=== PATIENT | male | born 1980 | race Caucasian/White ===

== ENCOUNTER → 2018-01-12 14:06 | Outpatient (REF) | payer MEDICARE, MEDICAID, SELFPAY ==
[2018-01-12 14:17] LABS: Absolute Lymphocyte Count 1.57 X10^3/ul (0.83-4.51); Absolute Neutrophil Count 3.9 X10^3/uL (2.0-7.7); Basophil# 0.01 X10^3/uL; Basophil% 0.2 % (0-1); Eosinophil# 0.12 X10^3/uL; Hematocrit 40.2 % (40-54); Hemoglobin 13.6 g/dl (13.0-16.5); Lymphocyte # 1.57 X10^3/ul (4.0); Lymphocyte % 25.8 % (19-41); Mean Corp Hgb Conc 33.8 g/gl (32-36); Mean Corpuscular Hgb 29.6 pg (27.0-32.0); Mean Corpuscular Volume 87.6 fL (80-94); Monocyte# 0.44 X10^3/uL; Monocyte% 7.2 % (0-10); Neutrophil # 3.93 X10^3/uL (2.7-7.7); Neutrophil % 64.5 % (47-70); Platelet Count 209 K/mm3 (150-450); RBC Distribution Width CV 12.9 % (11.6-14.6); RBC Distribution Width SD 40.2 fl (35.1-43.9); Red Blood Count 4.59 M/mm3 (4.6-6.2); White Blood Count 6.1 K/mm3 (4.4-11.0)
[2018-01-12 14:26] LABS: Erythrocyte Sedimentation Rate 11 mm/hr (0-15)
[2018-01-12 14:28] LABS: POSITIVE COUNT NO; POSITIVE DIFFERENTIAL NO; POSITIVE MORPHOLOGY NO
[2018-01-12 16:36] LABS: ALB/GLOB Ratio 0.9 RATIO (0.9-2.4); AST(SGOT) 25 U/L (15-37); Alanine Aminotransfer ALT/SGPT 42 U/L (16-61); Albumin, Serum 3.4 g/dL (3.2-5.0); Alkaline Phosphatase 84 U/L (45-117); Anion Gap 4 (5-15); BUN 17 mg/dL (7-18); BUN/Creat Ratio 20.7 RATIO (10-20); Calcium,Total 8.7 mg/dL (8.5-10.1); Chloride 106 mmol/L (98-107); Creatinine, Serum 0.82 mg/dL (0.70-1.30); EST Glomerular Filtration Rate 111 mL/min (>60); Est Glom Filt Rate - Afr Amer 135 mL/min (>60); Globulin 3.6 g/dL (2.2-4.2); Glucose 113 mg/dL (74-106); Potassium 4.2 mmol/L (3.5-5.1); Sodium Level 139 mmol/L (136-145)
== END ==
LOC: LABSPEC 14:06
PROVIDERS: Visit Provider Internal Medicine Infectious Disease
DX: M86.9 Osteomyelitis, unspecified (principal); E11.69 Type 2 diabetes mellitus with other specified complication; M86.261 Subacute osteomyelitis, right tibia and fibula
CPT/HCPCS: 80053; 85025; 85652; 86140

== ENCOUNTER → 2018-06-10 10:07 | Outpatient (CLI) | payer MEDICARE, MEDICAID, SELFPAY ==
--- NOTE | 2018-06-10 13:03 | NEURO ---
NCS and/or EMG Patient Report Ordering Doctor: Selvin Silva DATE OF SERVICE: 06/10/18 Carlos Eduardo Ruby is a 37-year-old male presents for electrodiagnostic testing of the right upper limb. He reports numbness and tingling intermittently in the right first and second digit. Electrodiagnostic findings: Right median motor nerve demonstrates normal distal latency, amplitude and conduction velocity. Normal right ulnar motor response. Normal right ulnar and median F-wave. Normal sensory responses in the right upper limb. Needle EMG testing shows no evidence of denervation with normal motor unit action potentials. Electrodiagnostic impression: This is a normal electrodiagnostic study in the right upper limb. There is no electrodiagnostic evidence for peripheral neuropathy or cervical radiculopathy. If there are any further questions, please do not hesitate to contact me.
== END ==
PROVIDERS: Family Provider Family Medicine; PCP Family Medicine; Visit Provider Orthopaedic Surgery
DX: G56.01 Carpal tunnel syndrome, right upper limb (principal)
CPT/HCPCS: 95886; 95909

== ENCOUNTER 2023-04-13 16:26 | Emergency (ER) | payer MEDICARE, MEDICAID, SELFPAY ==
[2023-04-13 16:26] VITALS: BP 181/115; PULSE 101; RESP 18; TEMP 36.6; O2SAT 96; BMI 42.3
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
[2023-04-13 17:45] LABS: Absolute Lymphocyte Count 3.68 X10^3/uL (0.83-4.51); Absolute Neutrophil Count 5.7 X10^3/uL (2.0-7.7); Basophil# 0.05 X10^3/uL; Basophil% 0.5 % (0-1); Eosinophils% 0.9 % (0-5); Hematocrit 48.4 % (40-54); Hemoglobin 15.3 g/dL (13.0-16.5); Lymphocyte # 3.68 X10^3/ul (0.83-4.51); Lymphocyte % 34.7 % (19-41); Mean Corp Hgb Conc 31.6 g/dL (32-36); Mean Corpuscular Hgb 28.8 pg (27.0-32.0); Monocyte# 1.03 X10^3/uL; Monocyte% 9.7 % (0-10); NRBC Flagged by Analyzer 0 % (0-5); Neutrophil # 5.69 X10^3/uL (2.7-7.7); Neutrophil % 53.7 % (47-70); Platelet Count 289 K/mm3 (150-450); RBC Distribution Width CV 13.2 % (11.6-14.6); RBC Distribution Width SD 43.9 fl (35.1-43.9); Red Blood Count 5.32 M/mm3 (4.6-6.2); White Blood Count 10.6 K/mm3 (4.4-11.0)
[2023-04-13] MEDS: LORazepam 2 MG/ML Syringe IM ×2 (17:47→22:51)
--- NOTE | 2023-04-13 17:53 | ED.RN ---
PT UP AND ATTEMPTING TO WALK AROUND THE HALLS. INCREASED AGITATION. PT ALSO ATTEMPTING TO LOG ONTO STAFF COMPUTER. NADIYA CAMARA MADE AWARE AND NEW ORDER FOR ATIVAN OBTAINED.
[2023-04-13 18:05] LABS: Anion Gap 6 (5-15); BUN 27 mg/dL (7-18); BUN/Creat Ratio 22.9 RATIO (10-20); Chloride 101 mmol/L (98-107); Creatinine, Serum 1.18 mg/dL (0.70-1.30); EST Glomerular Filtration Rate 72 mL/min (>60); Est Glom Filt Rate - Afr Amer 87 mL/min (>60); Estimated Creatinine Clearance 78.09 ml/min; Glucose 203 mg/dL (74-106); Potassium 3.8 mmol/L (3.5-5.1); Sodium Level 138 mmol/L (136-145)
[2023-04-13 18:13] LABS: Alcohol, Blood (Medical)-Serum < 3.0 mg/dL
[2023-04-13 18:33] LABS: Amphetamine Urine VISTA NEGATIVE (<1000 ng/mL); Barbiturate Urine VISTA NEGATIVE (< 200 ng/mL); Benzodiazepine Urine VISTA NEGATIVE (< 200 ng/mL); Cocaine Urine VISTA NEGATIVE (< 300 ng/mL); Ecstacy Urine VISTA NEGATIVE (< 500 ng/mL); Methadone Urine VISTA NEGATIVE (< 300 ng/mL); PCP Urine VISTA NEGATIVE (< 25 ng/mL); THC Urine VISTA NEGATIVE (< 50 ng/mL); Vista UDS pH Range 5
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
[2023-04-13] MEDS: Ziprasidone IM 20 MG/ML VIAL IM (19:11)
[2023-04-13 19:26] VITALS: RESP 18
[2023-04-13 20:26] VITALS: RESP 16
[2023-04-13 21:26] VITALS: BP 152/90; PULSE 80; RESP 20; O2SAT 98
[2023-04-13 22:00] VITALS: RESP 16
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
[2023-04-13] MEDS: DiphenhydrAMINE 50 MG/ML Syringe IM (22:51)
[2023-04-13] MEDS: proMETHazine 25 MG/ML Syringe IM (22:51)
[2023-04-13 23:00] VITALS: RESP 16
--- NOTE | 2023-04-13 23:02 | ED.RN ---
Pt restrained to bed, screaming and rocking back and fourth. Pt was also found to be biting his arm that was restrained above his head. Will continue to monitor.
[2023-04-14] VITALS: RESP 16
[2023-04-14 01:02] VITALS: BP 176/110; PULSE 89; RESP 18; TEMP 36.4; O2SAT 97
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
[2023-04-14 02:00] VITALS: BP 178/89; PULSE 99; RESP 16; TEMP 36.8; O2SAT 97
== END 2023-04-14 02:00 ==
PROVIDERS: Physician Assistant; Emergency Provider Emergency Medicine; PCP Family Medicine; Visit Provider Emergency Medicine
DX: F20.0 Paranoid schizophrenia (principal); F17.210 Nicotine dependence, cigarettes, uncomplicated
CPT/HCPCS: 80048; 80307; 82077; 85025; 87428; 93005; 96372; 99283

== ENCOUNTER 2023-07-21 14:36 | Emergency (ER) | payer MEDICARE, MEDICAID, SELFPAY ==
[2023-07-21 14:38] VITALS: BP 129/112; PULSE 105; RESP 18; TEMP 36.4; O2SAT 98; BMI 42.0
[2023-07-21 15:54] LABS: Absolute Lymphocyte Count 2.59 X10^3/uL (0.83-4.51); Absolute Neutrophil Count 7.6 X10^3/uL (2.0-7.7); Basophil# 0.05 X10^3/uL; Basophil% 0.4 % (0-1); Eosinophil# 0.16 X10^3/uL; Eosinophils% 1.4 % (0-5); Hematocrit 41.6 % (40-54); Hemoglobin 13.7 g/dL (13.0-16.5); Lymphocyte # 2.59 X10^3/ul (0.83-4.51); Mean Corp Hgb Conc 32.9 g/dL (32-36); Mean Corpuscular Hgb 28.8 pg (27.0-32.0); Mean Corpuscular Volume 87.6 fL (80-94); Mean Platelet Vol. 9.9 fl (6.2-12.0); Monocyte# 0.84 X10^3/uL; Monocyte% 7.5 % (0-10); NRBC Flagged by Analyzer 0 % (0-5); Neutrophil # 7.56 X10^3/uL (2.7-7.7); Neutrophil % 67.3 % (47-70); Platelet Count 294 K/mm3 (150-450); RBC Distribution Width CV 14.5 % (11.6-14.6); Red Blood Count 4.75 M/mm3 (4.6-6.2); White Blood Count 11.2 K/mm3 (4.4-11.0)
--- NOTE | 2023-07-21 16:10 | EX.ED.VIS.PS ---
HPI HPI - Psych History of Present Illness Chief Complaint: Mental Health Informant: patient Onset/Context/Timing Onset: Today Timing: Continuous Associated Symptoms Associated Symptoms - Psych: Positive for Flight of Ideas, Increased activity and Pressured Speech; Negative for Suicidal Thoughts, Visual Hallucinations or Auditory Hallucinations Narrative Narrative: Patient presents because they think I am ill. Patient is very poor informant. Patient states that he does not think he is ill. Patient denies any suicidal or homicidal ideations. Patient denies any visual or auditory hallucinations. However, states I am divinely the inspired by God. Patient denies any fevers or chills. Patient admits to some nausea but denies any vomiting. Patient admits to some pain in his neck. Patient denies any fevers or chills. PFSH PFSH Medical History unable to obtain Home Medications albuterol sulfate 90 mcg/actuation aerosol inhaler (Ventolin HFA) 1 - 2 puff inhalation Q4H PRN PRN Shortness Of Breath ##1 04/06/16 [Rx Last Taken Unknown] acetaminophen 325 mg tablet (Tylenol) 650 mg PO Q4H PRN PRN Pain 03/01/17 [History Last Taken Unknown] aripiprazole 30 mg tablet (Abilify) 30 mg PO BID 03/01/17 [History Last Taken Unknown] divalproex 500 mg tablet,extended release 24 hr 1,000 mg PO BID 03/01/17 [History Last Taken Unknown] pantoprazole 40 mg tablet,delayed release 40 mg PO DAILY 03/01/17 [History Last Taken Unknown] divalproex 500 mg tablet,delayed release (Depakote) 500 mg PO BID 07/21/23 [History Last Taken Unknown] glimepiride 4 mg tablet 4 mg PO DAILY 07/21/23 [History Last Taken Unknown] levothyroxine 50 mcg tablet (Euthyrox) 50 mcg PO DAILY 07/21/23 [History Last Taken Unknown] lorazepam 2 mg tablet (Ativan) 2 mg PO BID 07/21/23 [History Last Taken Unknown] mirtazapine 15 mg tablet 15 mg PO DAILY 07/21/23 [History Last Taken Unknown] simvastatin 40 mg tablet (Zocor) 40 mg PO DAILY 07/21/23 [History Last Taken Unknown] ziprasidone HCl 60 mg capsule (Geodon) 60 mg PO BID 07/21/23 [History Last Taken Unknown] Allergy/AdvReac Type Severity Reaction Status Date / Time haloperidol [From Haldol] Allergy Other Verified 07/21/23 14:37 haloperidol lactate Allergy Other Verified 07/21/23 14:37 [From Haldol] risperidone [From Risperdal] Allergy Other Verified 07/21/23 14:37 acetaminophen AdvReac Diarrhea Verified 07/21/23 14:37 [From Coricidin HBP] aripiprazole [From Abilify] AdvReac Other Verified 07/21/23 14:37 chlorpheniramine AdvReac Diarrhea Verified 07/21/23 14:37 [From Coricidin HBP] dextromethorphan AdvReac Diarrhea Verified 07/21/23 14:37 [From Coricidin HBP] guaifenesin AdvReac Diarrhea Verified 07/21/23 14:37 [From Coricidin HBP] Surgical History unable to obtain Social History Smoking Status: Current every day smoker tobacco type: cigarettes ROS ROS ED Constitutional Constitutional ED: Denies chills or fever(s) Eyes Eyes: Denies blurry vision or change in vision ENT ENT ED: Denies rhinorrhea or sore throat Cardiovascular Cardiovascular: Denies chest pain or palpitations Respiratory/Chest Respiratory/Chest: Denies cough or dyspnea Gastrointestinal Gastrointestinal: Reports nausea; Denies vomiting Genitourinary Genitourinary ED: Denies dysuria or hematuria Musculoskeletal Musculoskeletal: Reports neck pain; Denies back pain Integumentary Denies abscess or rash Neurologic Neurologic: Denies headache(s) or weakness Allergic/Immunologic Allergic/Immunologic ED: Denies mouth swelling or urticaria EXAM Physical Exam Const Vital Signs: 07/21/23 14:38 07/21/23 18:37 Temperature 97.6 F L Temperature Source Temporal Pulse Rate 105 H 102 H Respiratory Rate 18 16 Blood Pressure 129/112 H 130/69 H Blood Pressure Mean 117 89 Pulse Ox 98 98 Oxygen Delivery Method Room Air Room Air Positive well nourished, well developed and obese General Appearance ED: well developed Nutritional Appearance: obese HEENT Reports moist mucous membranes Neck supple and no JVD Resp normal respiratory effort and clear to auscultation bilaterally Cardio Rate: regular rate Rhythm: regular rhythm GI non-tender and non-distended Palpation: soft Neuro oriented x3, CN's II-XII intact bilaterally and no sensory deficits noted Sensorium / Orientation: alert Motor Exam: strength 5/5 throughout Psych Appearance: well kempt Activity / Motor Behavior: fidgetting, hyperactive and restless Thought Content: No suicidality, No homicidality and delusion(s) Delusional Thought Content Details: Positive for grandiose Memory / Cognition: memory grossly intact Insight: limited Judgement: limited MDM MDM MDM Narrative Medical decision making narrative: Medical screening labs will be obtained for medical clearance. CBC will be obtained to assess for leukocytosis and anemia. Basic metabolic profile will be obtained to assess for electrolyte abnormality and renal function. Serum alcohol level will be obtained to assess for alcohol intoxication. Urine drug screen will be obtained to assess for substance abuse. COVID-19 rapid antigen will be obtained to assess for COVID-19 infection. Lab Data Attestation: I reviewed the patient's lab results. Lab results narrative: CBC was reviewed and shows a slight leukocytosis of 11.2. The remainder is within normal limits. COVID-19 rapid antigen was reviewed and was negative. Basic metabolic profile was reviewed. Glucose was slightly elevated at 171. The remainder is within normal limits. Anion gap was normal. Serum alcohol level was reviewed and was less than 3.0. Urine tox screen was reviewed and was negative. Labs: Laboratory Results - last 24 hr 07/21/23 07/21/23 15:35 16:15 WBC 11.2 H RBC 4.75 Hgb 13.7 Hct 41.6 MCV 87.6 MCH 28.8 MCHC 32.9 RDW Std Deviation 46.0 H RDW Coeff of Shruti 14.5 Plt Count 294 MPV 9.9 Immature Gran % (Auto) 0.400 Neut % (Auto) 67.3 Lymph % (Auto) 23.0 [place] % (Auto) 7.5 Eos % (Auto) 1.4 Baso % (Auto) 0.4 Absolute Neuts (auto) 7.6 Absolute Lymphs (auto) 2.59 Nucleated RBC % 0 Sodium 137 Potassium 3.8 Chloride 102 Carbon Dioxide 32.0 Anion Gap 3 L BUN 15 Creatinine 0.84 Estim Creat Clear Calc 106.01 Est GFR (MDRD) Af Amer 127 Est GFR (MDRD) Non-Af 105 BUN/Creatinine Ratio 17.8 Glucose 171 H Calcium 9.9 Urine Opiates Screen NEGATIVE Urine Methadone Screen NEGATIVE Ur Barbiturates Screen NEGATIVE Ur Phencyclidine Scrn NEGATIVE Ur Amphetamines Screen NEGATIVE MDMA (Ecstasy) Screen NEGATIVE U Benzodiazepines Scrn NEGATIVE Urine Cocaine Screen NEGATIVE U Cannabinoids Screen NEGATIVE Ur Drug Screen Comment Ethyl Alcohol < 3.0 Treatment and Re-Evaluation Narrative: Patient was given his home medications which included Geodon, Depakote, and Ativan. Patient became very agitated. Patient was given a dose of Ativan. Patient was resting comfortably and then had a second episode where he became agitated and was threatening staff. Patient was given a repeat dose of Ativan. structural steel worker apprentice was in to evaluate the patient. She was able to get the patient placed at [facility]. However, transport will not be available until tomorrow morning. Patient will be turned over to the oncoming physician until transport can be arranged. Discharge Plan Triage Chief Complaint: Mental Health ED Provider: Pawan Cardenas Dx/Rx/DC Orders Clinical Impression: Psychosis, Agitation Prescriptions: No Action albuterol sulfate [Ventolin HFA] 1 INHALER inhaler 1 - 2 puff inhalation Q4H PRN PRN (Reason: Shortness Of Breath) Qty: 1 0RF acetaminophen [Tylenol] 325 MG tablet 650 mg PO Q4H PRN PRN (Reason: Pain) pantoprazole 40 MG tablet 40 mg PO DAILY Hold Instructions: MD Ordered divalproex 500 MG tablet extended release 24 hr 1,000 mg PO BID Hold Instructions: MD Ordered aripiprazole [Abilify] 30 MG tablet 30 mg PO BID Hold Instructions: MD Ordered divalproex [Depakote] 500 mg tablet,delayed release (DR/EC) 500 mg PO BID levothyroxine [Euthyrox] 50 mcg tablet 50 mcg PO DAILY glimepiride 4 mg tablet 4 mg PO DAILY simvastatin [Zocor] 40 mg tablet 40 mg PO DAILY mirtazapine 15 mg tablet 15 mg PO DAILY ziprasidone HCl [Geodon] 60 mg capsule 60 mg PO BID Rx Instructions: give with food (meal/snack) lorazepam [Ativan] 2 mg tablet 2 mg PO BID Primary Care Provider: Crow Gill Referrals: Crow Gill MD [Primary Care Provider] - Disposition Disposition: Psychiatric Hospital or Unit Discharge Location: [facility]
[2023-07-21 16:16] LABS: Anion Gap 3 (5-15); BUN 15 mg/dL (7-18); BUN/Creat Ratio 17.8 RATIO (10-20); Calcium,Total 9.9 mg/dL (8.5-10.1); Chloride 102 mmol/L (98-107); Creatinine, Serum 0.84 mg/dL (0.70-1.30); EST Glomerular Filtration Rate 105 mL/min (>60); Est Glom Filt Rate - Afr Amer 127 mL/min (>60); Estimated Creatinine Clearance 106.01 ml/min; Glucose 171 mg/dL (74-106); Potassium 3.8 mmol/L (3.5-5.1); Sodium Level 137 mmol/L (136-145)
--- NOTE | 2023-07-21 16:16 | ED.RN ---
PT IN ROOM WITH CIGARETTE, ATTEMPTING TO LIGHT IT, WALKING OUT WITH CIGARETTE IN MOUTH. THIS RN INTO ROOM. CIGARETTES CONFISCATED, PT AWARE THAT INAPPROPRIATE BEHAVIOR WILL NOT BE TOLERATED. PT GETTING INTO DRAWS AND CABINETES. PT REQUESTED MORE FOOD. PT AWARE THAT UNTIL PT IS COOPERATIVE AND RESPECTFUL OF STAFF, PT WILL NOT RECEIVE FOOD OR DRINK
[2023-07-21 16:18] LABS: Alcohol, Blood (Medical)-Serum < 3.0 mg/dL
[2023-07-21 17:20] LABS: Amphetamine Urine VISTA NEGATIVE (<1000 ng/mL); Barbiturate Urine VISTA NEGATIVE (< 200 ng/mL); Benzodiazepine Urine VISTA NEGATIVE (< 200 ng/mL); Cocaine Urine VISTA NEGATIVE (< 300 ng/mL); Ecstacy Urine VISTA NEGATIVE (< 500 ng/mL); Methadone Urine VISTA NEGATIVE (< 300 ng/mL); PCP Urine VISTA NEGATIVE (< 25 ng/mL); THC Urine VISTA NEGATIVE (< 50 ng/mL); Vista UDS pH Range 6
[2023-07-21] MEDS: Acetaminophen 325 MG Tablet 650 MG PO (17:26)
--- NOTE | 2023-07-21 17:41 | CM.ED ---
Social Work SW spoke with patient's sister Rosa, . SW gathered information relevant to patient being in the ED. Rosa had patient's discharge paperwork from [facility] as he was discharged today. Rosa provided discharge medications as the following: Depakote 500 mg 2x daily Synthroid 50mcg Amaryl 4mg Tradjenta 5mg Zocor 40mg Geodon 60mg 2x daily Ativan 5mg 2x daily and as needed Mirtazapine 15mg Patient's sister reports he cannot take Haldol and he has a very bad reaction. SW relayed information to patient's nurse. SW also to change sister's information in the system as the wrong phone number is listed. Celine Aguirre ASSET ADMINISTRATOR, PROBATION WORKER
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
[2023-07-21] MEDS: Divalproex Sodium 250 MG Tablet 500 MG PO (18:35)
[2023-07-21] MEDS: Mirtazapine 15 MG Tablet PO (18:35)
[2023-07-21] MEDS: Glimepiride 4 MG Tablet PO (18:35)
[2023-07-21] MEDS: Atorvastatin Calcium 20 MG Tablet PO (18:35)
[2023-07-21] MEDS: LORazepam 1 MG Tablet 2 MG PO (18:35)
[2023-07-21] MEDS: Ziprasidone HCl 20 MG Capsule 60 MG PO (18:35)
[2023-07-21 18:37] VITALS: BP 130/69; PULSE 102; RESP 16; O2SAT 98
--- NOTE | 2023-07-21 19:30 | CM.ED ---
Social Work Pt accepted to [facility] dual diagnosis unit by Dr. Méndez. SW notified patient's sister of placement. Rosa would like to be a contact representative for [facility]. SW to relay contact information. Celine Aguirre BACKHOE OPERATOR, SCOURING MACHINE TENDER
[2023-07-21] MEDS: LORazepam 2 MG/ML Syringe IM (19:37)
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
[2023-07-22] VITALS: PULSE 100; RESP 17; O2SAT 98
[2023-07-22] MEDS: LORazepam 2 MG/ML Syringe IM (00:02)
[2023-07-22 01:25] VITALS: BP 153/58; PULSE 87; RESP 16; O2SAT 98
[2023-07-22 02:00] VITALS: RESP 17
[2023-07-22] MEDS: Ziprasidone IM 20 MG/ML VIAL IM (02:11)
[2023-07-22] MEDS: DiphenhydrAMINE 50 MG/ML Syringe IM (02:11)
[2023-07-22 03:00] VITALS: RESP 17
--- NOTE | 2023-07-22 03:35 | ED.RN ---
Addendum entered by Gem Antoine 07/22/23 03:51: [facility] REQUESTING TO BE CALLED BEFORE PT GETS ON COT TO MAKE SURE BEHAVIORS HAVE BEEN OK. Original Note: REPORT CALLED TO VAISHNAVI AT [facility].
[2023-07-22 06:24] VITALS: BP 158/89; PULSE 71; RESP 18; O2SAT 95
[2023-07-22] MEDS: Levothyroxine 50 MCG Tablet PO (06:26)
[2023-07-22 06:57] LABS: Bedside Glucose 126 mg/dL (74-106)
--- NOTE | 2023-07-22 06:58 | ED.RN ---
spoke with admission nurse at [facility], Nurse approved for pt to transport to facility.
== END 2023-07-22 07:07 ==
PROVIDERS: Emergency Provider Emergency Medicine; PCP Family Medicine; Visit Provider Emergency Medicine
DX: F29 Unspecified psychosis not due to a substance or known physiological condition (principal); R45.1 Restlessness and agitation; F17.210 Nicotine dependence, cigarettes, uncomplicated; Z79.899 Other long term (current) drug therapy
CPT/HCPCS: 36415; 80048; 80307; 82077; 82962; 85025; 87811; 96372; 99283; J3486

== ENCOUNTER 2023-08-03 21:32 | Emergency (ER) | payer MEDICARE, MEDICAID, SELFPAY ==
[2023-08-03 21:33] VITALS: BP 175/93; PULSE 112; RESP 18; TEMP 36.4; O2SAT 99; BMI 43.4
[2023-08-03 22:18] LABS: Absolute Lymphocyte Count 3.72 X10^3/uL (0.83-4.51); Absolute Neutrophil Count 9.8 X10^3/uL (2.0-7.7); Basophil# 0.04 X10^3/uL; Basophil% 0.3 % (0-1); Eosinophil# 0.14 X10^3/uL; Hematocrit 40.9 % (40-54); Lymphocyte # 3.72 X10^3/ul (0.83-4.51); Lymphocyte % 25.3 % (19-41); Mean Corp Hgb Conc 31.8 g/dL (32-36); Mean Corpuscular Hgb 28.4 pg (27.0-32.0); Mean Corpuscular Volume 89.5 fL (80-94); Mean Platelet Vol. 10.3 fl (6.2-12.0); Monocyte# 0.93 X10^3/uL; Monocyte% 6.3 % (0-10); NRBC Flagged by Analyzer 0 % (0-5); Neutrophil # 9.78 X10^3/uL (2.7-7.7); Neutrophil % 66.5 % (47-70); Platelet Count 298 K/mm3 (150-450); RBC Distribution Width CV 14.6 % (11.6-14.6); RBC Distribution Width SD 46.8 fl (35.1-43.9); Red Blood Count 4.57 M/mm3 (4.6-6.2); White Blood Count 14.7 K/mm3 (4.4-11.0)
[2023-08-03 22:32] VITALS: RESP 14
[2023-08-03 22:42] LABS: Alcohol, Blood (Medical)-Serum < 3.0 mg/dL; Anion Gap 7 (5-15); BUN 15 mg/dL (7-18); BUN/Creat Ratio 16.1 RATIO (10-20); Calcium,Total 9.6 mg/dL (8.5-10.1); Chloride 95 mmol/L (98-107); Creatinine, Serum 0.93 mg/dL (0.70-1.30); EST Glomerular Filtration Rate 94 mL/min (>60); Est Glom Filt Rate - Afr Amer 114 mL/min (>60); Estimated Creatinine Clearance 92.42 ml/min; Glucose 193 mg/dL (74-106); Potassium 3.7 mmol/L (3.5-5.1); Sodium Level 137 mmol/L (136-145)
[2023-08-03 22:45] LABS: Amphetamine Urine VISTA NEGATIVE (<1000 ng/mL); Barbiturate Urine VISTA NEGATIVE (< 200 ng/mL); Benzodiazepine Urine VISTA NEGATIVE (< 200 ng/mL); Cocaine Urine VISTA NEGATIVE (< 300 ng/mL); Ecstacy Urine VISTA NEGATIVE (< 500 ng/mL); Methadone Urine VISTA NEGATIVE (< 300 ng/mL); PCP Urine VISTA NEGATIVE (< 25 ng/mL); THC Urine VISTA POSITIVE (< 50 ng/mL); Vista UDS pH Range 6
--- NOTE | 2023-08-03 22:50 | EDS_ITS ---
HPI HPI - Psych History of Present Illness Chief Complaint: Mental Health Informant: patient Narrative Narrative: Patient reported dropped off by his nephew for mental health evaluation. He has a history of schizophrenia. Patient states that he does not know why he is here. When I asked him specifically if he has thoughts of going to hurt himself he states two one. He denies weight or anyone else. It is my understanding from staff that counseling center saw him in his home and is planning on placement. They sent him in for medical clearance. Patient has had a couple recent visits with placement and majority of history is obtained from these notes. [facility] Medical History Hypothyroidism Mental health disorder Schizophrenia Home Medications albuterol sulfate 90 mcg/actuation aerosol inhaler (Ventolin HFA) 1 - 2 puff inhalation Q4H PRN PRN Shortness Of Breath ##1 04/06/16 [Rx Last Taken Unknown] acetaminophen 325 mg tablet (Tylenol) 650 mg PO Q4H PRN PRN Pain 03/01/17 [History Last Taken Unknown] aripiprazole 30 mg tablet (Abilify) 30 mg PO BID 03/01/17 [History Last Taken Unknown] divalproex 500 mg tablet,extended release 24 hr 1,000 mg PO BID 03/01/17 [History Last Taken Unknown] pantoprazole 40 mg tablet,delayed release 40 mg PO DAILY 03/01/17 [History Last Taken Unknown] divalproex 500 mg tablet,delayed release (Depakote) 500 mg PO BID 07/21/23 [History Last Taken Unknown] glimepiride 4 mg tablet 4 mg PO DAILY 07/21/23 [History Last Taken Unknown] levothyroxine 50 mcg tablet (Euthyrox) 50 mcg PO DAILY 07/21/23 [History Last Taken Unknown] lorazepam 2 mg tablet (Ativan) 2 mg PO BID 07/21/23 [History Last Taken Unknown] mirtazapine 15 mg tablet 15 mg PO DAILY 07/21/23 [History Last Taken Unknown] simvastatin 40 mg tablet (Zocor) 40 mg PO DAILY 07/21/23 [History Last Taken Unknown] ziprasidone HCl 60 mg capsule (Geodon) 60 mg PO BID 07/21/23 [History Last Taken Unknown] Allergy/AdvReac Type Severity Reaction Status Date / Time haloperidol [From Haldol] Allergy Other Verified 08/03/23 21:33 haloperidol lactate Allergy Other Verified 08/03/23 21:33 [From Haldol] risperidone [From Risperdal] Allergy Other Verified 08/03/23 21:33 acetaminophen AdvReac Diarrhea Verified 08/03/23 21:33 [From Coricidin HBP] aripiprazole [From Abilify] AdvReac Other Verified 08/03/23 21:33 chlorpheniramine AdvReac Diarrhea Verified 08/03/23 21:33 [From Coricidin HBP] dextromethorphan AdvReac Diarrhea Verified 08/03/23 21:33 [From Coricidin HBP] guaifenesin AdvReac Diarrhea Verified 08/03/23 21:33 [From Coricidin HBP] Social History Smoking Status: Current every day smoker tobacco type: cigarettes ROS ROS ED Constitutional Constitutional ED: Denies chills or fever(s) Eyes Eyes: Denies change in vision ENT ENT ED: Denies sore throat Cardiovascular Cardiovascular: Denies chest pain Respiratory/Chest Respiratory/Chest: Denies cough or dyspnea Gastrointestinal Gastrointestinal: Denies abdominal pain Musculoskeletal Musculoskeletal: Reports arthralgias Neurologic Neurologic: Denies headache(s) EXAM Physical Exam Const Vital Signs: 08/03/23 21:33 08/03/23 22:32 08/03/23 23:00 Temperature 97.5 F L Temperature Source Temporal Pulse Rate 112 H Respiratory Rate 18 14 14 Blood Pressure 175/93 H Blood Pressure Mean 120 Pulse Ox 99 Oxygen Delivery Method 08/04/23 00:00 Temperature Temperature Source Pulse Rate Respiratory Rate 17 Blood Pressure Blood Pressure Mean Pulse Ox 98 Oxygen Delivery Method Room Air Positive well nourished and well developed General Appearance ED: well developed HEENT Reports moist mucous membranes Eyes EOMs intact bilaterally Resp normal respiratory effort and clear to auscultation bilaterally Cardio Rate: regular rate Rhythm: regular rhythm GI non-tender Palpation: soft Extremity normal to inspection Neuro no sensory deficits noted Sensorium / Orientation: alert Motor Exam: strength 5/5 throughout Psych Psych Narrative: Patient with delayed response to questions. Will not answer me whether he is suicidal or not. Denies any prior attempts to harm himself. MDM MDM MDM Narrative Medical decision making narrative: Blood work for mental health clearance obtained. Lab Data Attestation: I reviewed the patient's lab results. Labs: Laboratory Results - last 24 hr 08/03/23 08/03/23 22:00 22:25 WBC 14.7 H RBC 4.57 L Hgb 13.0 Hct 40.9 MCV 89.5 MCH 28.4 MCHC 31.8 L RDW Std Deviation 46.8 H RDW Coeff of Shruti 14.6 Plt Count 298 MPV 10.3 Immature Gran % (Auto) 0.600 Neut % (Auto) 66.5 Lymph % (Auto) 25.3 Hendry % (Auto) 6.3 Eos % (Auto) 1.0 Baso % (Auto) 0.3 Absolute Neuts (auto) 9.8 H Absolute Lymphs (auto) 3.72 Nucleated RBC % 0 Sodium 137 Potassium 3.7 Chloride 95 L Carbon Dioxide 35.0 H Anion Gap 7 BUN 15 Creatinine 0.93 Estim Creat Clear Calc 92.42 Est GFR (MDRD) Af Amer 114 Est GFR (MDRD) Non-Af 94 BUN/Creatinine Ratio 16.1 Glucose 193 H Calcium 9.6 Urine Opiates Screen NEGATIVE Urine Methadone Screen NEGATIVE Ur Barbiturates Screen NEGATIVE Ur Phencyclidine Scrn NEGATIVE Ur Amphetamines Screen NEGATIVE MDMA (Ecstasy) Screen NEGATIVE U Benzodiazepines Scrn NEGATIVE Urine Cocaine Screen NEGATIVE U Cannabinoids Screen POSITIVE H Ur Drug Screen Comment Ethyl Alcohol < 3.0 Treatment and Re-Evaluation Narrative: CBC was a white count of 14.7 with normal differential. Hemoglobin is normal at 13. Chemistry studies are unremarkable other than a glucose of 193. EtOH is less than 3. Talk screen is positive only for cannabinoids. COVID test is negative. It is my understanding that crisis is already seen the patient and planning on placement. Discharge Plan Triage Chief Complaint: Mental Health ED Provider: Erinn Tao Dx/Rx/DC Orders Prescriptions: No Action albuterol sulfate [Ventolin HFA] 1 INHALER inhaler 1 - 2 puff inhalation Q4H PRN PRN (Reason: Shortness Of Breath) Qty: 1 0RF acetaminophen [Tylenol] 325 MG tablet 650 mg PO Q4H PRN PRN (Reason: Pain) pantoprazole 40 MG tablet 40 mg PO DAILY Hold Instructions: MD Ordered divalproex 500 MG tablet extended release 24 hr 1,000 mg PO BID Hold Instructions: MD Ordered aripiprazole [Abilify] 30 MG tablet 30 mg PO BID Hold Instructions: MD Ordered divalproex [Depakote] 500 mg tablet,delayed release (DR/EC) 500 mg PO BID levothyroxine [Euthyrox] 50 mcg tablet 50 mcg PO DAILY glimepiride 4 mg tablet 4 mg PO DAILY simvastatin [Zocor] 40 mg tablet 40 mg PO DAILY mirtazapine 15 mg tablet 15 mg PO DAILY ziprasidone HCl [Geodon] 60 mg capsule 60 mg PO BID Rx Instructions: give with food (meal/snack) lorazepam [Ativan] 2 mg tablet 2 mg PO BID Primary Care Provider: Crow Gill Referrals: Crow Gill MD [Primary Care Provider] -
[2023-08-03 23:00] VITALS: RESP 14
[2023-08-04] VITALS: RESP 17; O2SAT 98
[2023-08-04] MEDS: Ziprasidone IM 20 MG/ML VIAL IM ×3 (00:02→10:45)
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
--- NOTE | 2023-08-04 00:36 | ED.RN ---
reanna vigil called to check condition on patient information given at this time
[2023-08-04 01:00] VITALS: RESP 14
--- NOTE | 2023-08-04 02:37 | EKG12_ITS ---
Test Reason : [facility] [place] Pressure : / mmHG Vent. Rate : 104 BPM Atrial Rate : 104 BPM P-R Int : 172 ms QRS Dur : 076 ms QT Int : 356 ms P-R-T Axes : 071 060 047 degrees QTc Int : 468 ms Sinus tachycardia Septal infarct , age undetermined Abnormal ECG Confirmed by GUILHERME MCKENNA, CARRIE ([id number]), greeting card editor JOHN ESCOBEDO ([id number]) on 08/11/2023 10:07:11 AM Referred By: Confirmed By:AMERICO VANEGAS MD
[2023-08-04] MEDS: DiphenhydrAMINE 50 MG/ML Syringe IM (02:42)
[2023-08-04] MEDS: LORazepam 2 MG/ML Syringe IM (02:43)
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
[2023-08-04] MEDS: Ketamine HCl 500 MG/5 ML Vial IM (05:44)
--- NOTE | 2023-08-04 09:41 | NURSING ---
CRISIS FOLLOWING UP WITH [facility] TO SEE IF ACCEPTED, SAID THEY ARE MAKING BACKUP PLAN FOR [facility] JUST IN CASE
--- NOTE | 2023-08-04 10:34 | NURSING ---
[facility] CALLED ETA 30 MIN
[2023-08-04 10:53] VITALS: BP 139/99; PULSE 106; RESP 20; O2SAT 98
== END 2023-08-04 11:37 ==
LOC: ED 22:10
PROVIDERS: Emergency Provider Emergency Medicine; PCP Family Medicine; Visit Provider Emergency Medicine
DX: F20.9 Schizophrenia, unspecified (principal); F17.210 Nicotine dependence, cigarettes, uncomplicated; E03.9 Hypothyroidism, unspecified; Z79.899 Other long term (current) drug therapy
CPT/HCPCS: 80048; 80307; 82077; 85025; 87811; 93005; 96372; 99283; J3486

== ENCOUNTER 2023-08-25 11:21 | Emergency (ER) | payer MEDICARE, MEDICAID, SELFPAY ==
[2023-08-25 11:23] VITALS: BP 144/88; PULSE 84; RESP 17; TEMP 37.1; O2SAT 96; BMI 41.6
--- NOTE | 2023-08-25 12:13 | EX.ED.DYSGE1 ---
HPI <KALE Hubbard - Last Filed: 08/25/23 15:37> History of Present Illness Chief Complaint: Wound Narrative Narrative: Patient is a 42-year-old male with history of schizophrenia, has history of multiple outburst, multiple manic episodes, obesity, type 2 diabetes who presents to the emergency department for evaluation. Patient's friend saw him wandering down [address], he also has a chronic wound to the right leg that looked more red and they wanted him evaluated. Patient states that he is taking his Abilify injections as prescribed. Last injection was 18 days ago. He says he follows up with the counseling center. Denies any suicidal homicidal ideation. [facility] <KALE Hubbard - Last Filed: 08/25/23 15:37> [facility] Medical History Hypothyroidism Mental health disorder Schizophrenia Home Medications albuterol sulfate 90 mcg/actuation aerosol inhaler (Ventolin HFA) 1 - 2 puff inhalation Q4H PRN PRN Shortness Of Breath ##1 04/06/16 [Rx Last Taken Unknown] acetaminophen 325 mg tablet (Tylenol) 650 mg PO Q4H PRN PRN Pain 03/01/17 [History Last Taken Unknown] aripiprazole 30 mg tablet (Abilify) 30 mg PO BID 03/01/17 [History Last Taken Unknown] divalproex 500 mg tablet,extended release 24 hr 1,000 mg PO BID 03/01/17 [History Last Taken Unknown] pantoprazole 40 mg tablet,delayed release 40 mg PO DAILY 03/01/17 [History Last Taken Unknown] divalproex 500 mg tablet,delayed release (Depakote) 500 mg PO BID 07/21/23 [History Last Taken Unknown] glimepiride 4 mg tablet 4 mg PO DAILY 07/21/23 [History Last Taken Unknown] levothyroxine 50 mcg tablet (Euthyrox) 50 mcg PO DAILY 07/21/23 [History Last Taken Unknown] lorazepam 2 mg tablet (Ativan) 2 mg PO BID 07/21/23 [History Last Taken Unknown] mirtazapine 15 mg tablet 15 mg PO DAILY 07/21/23 [History Last Taken Unknown] simvastatin 40 mg tablet (Zocor) 40 mg PO DAILY 07/21/23 [History Last Taken Unknown] ziprasidone HCl 60 mg capsule (Geodon) 60 mg PO BID 07/21/23 [History Last Taken Unknown] Allergy/AdvReac Type Severity Reaction Status Date / Time haloperidol [From Haldol] Allergy Other Verified 08/03/23 21:33 haloperidol lactate Allergy Other Verified 08/03/23 21:33 [From Haldol] risperidone [From Risperdal] Allergy Other Verified 08/03/23 21:33 acetaminophen AdvReac Diarrhea Verified 08/03/23 21:33 [From Coricidin HBP] aripiprazole [From Abilify] AdvReac Other Verified 08/03/23 21:33 chlorpheniramine AdvReac Diarrhea Verified 08/03/23 21:33 [From Coricidin HBP] dextromethorphan AdvReac Diarrhea Verified 08/03/23 21:33 [From Coricidin HBP] guaifenesin AdvReac Diarrhea Verified 08/03/23 21:33 [From Coricidin HBP] Social History Smoking Status: Current every day smoker tobacco type: cigarettes ROS <KALE Hubbard - Last Filed: 08/25/23 15:37> ROS ED ROS Narrative Constitutional: Negative for fever, chills, weight loss, weakness Eyes: Negative for vision loss, vision change, double vision ENT: Negative for any sore throat, ear pain, congestion Cardiovascular: Negative for any chest pain, tightness, palpitations Respiratory: Negative for any cough, sputum production, hemoptysis, dyspnea, dyspnea on exertion, orthopnea Gastrointestinal: Negative for any abdominal pain, nausea, vomiting, constipation, blood in stool, blood in vomit. Positive for diarrhea : Negative for any urinary frequency, dysuria, retention, blood in urine Muscle skeletal: Negative for any myalgias, arthralgias, neck pain, back pain Neurological: Negative for any headache, syncope, numbness or tingling, dizziness Skin: Negative for any rashes, lumps, itching, abrasions, lacerations Psychiatric: Negative for any depression, anxiety, stress, suicidal ideation, homicidal ideation Hematologic: Negative for any easy bruising, excessive bruising, easy bleeding Allergies: Negative for any eczema, hives, rash EXAM <KALE Hubbard - Last Filed: 08/25/23 15:37> Physical Exam Narrative Exam Narrative: Vital signs reviewed. Patient is alert and oriented x4, he does act odd, he does have periods where he just keeps talking. He denies any suicidal, homicidal ideation. Denies any visual or auditory hallucinations. Patient states he is homeless HEET: Head normocephalic atraumatic, TMs clear bilaterally. Posterior pharynx is clear, moist mucous membranes. Nares clear bilaterally. Neck: Supple with no lymphadenopathy or tenderness. No signs of meningismus. Cardiac: Regular rate and rhythm no murmurs gallops or rubs, equal peripheral pulses bilaterally. Respiratory: Lungs clear to auscultation bilaterally. No chest tenderness. Abdomen: Soft, nontender, nondistended. No abdominal bruit or pulsatile masses. No hepatosplenomegaly Extremities: No peripheral edema, no signs of gross trauma or deformity. Active full range of motion of all extremities. Patient does have a chronic wound to the right leg, this appears chronic in nature, do not see any significant abscess formation, cellulitis. Neuro: Cranial nerves II through XII intact, no focal neurological deficits. Skin: Clean dry and intact with no rash, purpura, petechiae, vesicles or pustules. Backs/flank: No CVA tenderness, no midline spinal tenderness, no deformity. Psych: Patient is difficult to get a straight answer, patient does continue to talk, a lot of things that the patient says does not make sense. He does not make any violent or suicidal homicidal claims. Const Vital Signs: 08/25/23 11:23 Temperature 98.7 F Temperature Source Temporal Pulse Rate 84 Respiratory Rate 17 Blood Pressure 144/88 H Blood Pressure Mean 106 Pulse Ox 96 Oxygen Delivery Method Room Air Positive well nourished and well developed General Appearance ED: well developed <Dr. Pawan Cardenas, DO - Last Filed: 08/25/23 15:57> Physical Exam Const Vital Signs: 08/25/23 11:23 Temperature 98.7 F Temperature Source Temporal Pulse Rate 84 Respiratory Rate 17 Blood Pressure 144/88 H Blood Pressure Mean 106 Pulse Ox 96 Oxygen Delivery Method Room Air MDM <KALE Hubbard - Last Filed: 08/25/23 15:37> MDM Lab Data Labs: Laboratory Results - last 24 hr 08/25/23 08/25/23 13:25 13:45 WBC 9.1 RBC 4.66 Hgb 13.1 Hct 41.4 MCV 88.8 MCH 28.1 MCHC 31.6 L RDW Std Deviation 45.6 H RDW Coeff of Shruti 14.1 Plt Count 227 MPV 9.6 Immature Gran % (Auto) 0.500 Neut % (Auto) 73.0 H Lymph % (Auto) 18.0 L [place] % (Auto) 7.3 Eos % (Auto) 0.9 Baso % (Auto) 0.3 Absolute Neuts (auto) 6.7 Absolute Lymphs (auto) 1.64 Nucleated RBC % 0 Sodium 135 L Potassium 3.8 Chloride 99 Carbon Dioxide 34.0 H Anion Gap 2 L BUN 21 H Creatinine 0.84 Estim Creat Clear Calc 102.32 Est GFR (MDRD) Af Amer 128 Est GFR (MDRD) Non-Af 106 BUN/Creatinine Ratio 25.0 H Glucose 171 H Calcium 9.1 Urine Opiates Screen NEGATIVE Urine Methadone Screen NEGATIVE Ur Barbiturates Screen NEGATIVE Ur Phencyclidine Scrn NEGATIVE Ur Amphetamines Screen NEGATIVE MDMA (Ecstasy) Screen NEGATIVE U Benzodiazepines Scrn POSITIVE H Urine Cocaine Screen NEGATIVE U Cannabinoids Screen NEGATIVE Ur Drug Screen Comment Ethyl Alcohol < 3.0 Treatment and Re-Evaluation :: Patient is alert, patient is difficult to obtain any information from. He denies any suicidal homicidal ideation. Vital signs are stable, patient appears nontoxic. Patient's right leg is unremarkable there is no evidence of any acute cellulitis. Differential diagnosis includes cellulitis, DVT, acute on chronic schizophrenia. I spoke with the criminal justice social worker, criminal justice social worker myself as well as the crisis did talk about this patient, apparently per crisis, the family has been calling crisis all morning. The patient's been acting aggressive at home, has been taking things from stores, not acting himself. Secondary to this finding, I spoke with social work, crisis will come down and evaluate the patient. Patient's CBC was unremarkable, negative for any leukocytosis. Chemistries were unremarkable, patient was positive for his drug screen for benzodiazepines. Patient's COVID-19 was positive. I had a long conversation with the criminal justice social worker, she is experience with this individual. Patient has a safety plan, so the patient be able to discharge home. Follow-up for any worsening symptoms. All questions were answered, patient stable for discharge. Patient left prior to discharge. <Dr. Pawan Cardenas, DO - Last Filed: 08/25/23 15:57> [employer] Narrative Medical decision making narrative: I have personally performed a face to face assessment of the patient and have reviewed the FLORECITA Note. I performed a substantive portion of the visit including all aspects of the following. My carrera findings include: History: Patient presents with chronic wound to his right lower leg that became worse today. Patient denies any recent injury. Patient denies any fevers or chills. Patient denies any discharge or drainage. Patient denies any paresthesias or weakness. Patient reportedly has been calling crisis counselor several times this morning. Crisis counselor reported that the patient has not been acting appropriately. Crisis counselor reports patient has been aggressive at home. Exam: Vital signs are stable. Patient is afebrile. Patient is in no acute distress. Examination of the right lower extremity reveals a chronic healing wound over the medial aspect of the right distal lower leg. There is no erythema or warmth noted. There is no discharge or drainage noted. There is no evidence of any trauma. Pedal pulses are equal bilaterally. Sensation was intact to light touch bilaterally in the lower extremities. There is full range of motion. Medical Decision Making: Crisis counselor will be in to evaluate the patient. Medical screening labs will be obtained. CBC will be obtained to assess for leukocytosis and anemia. Basic metabolic profile will be obtained to assess for electrolyte abnormality and renal function. Urine toxicology screen will be obtained to assess for substance abuse. Serum alcohol level will be obtained to assess for alcohol intoxication. Urine tox screen was reviewed and was positive for benzodiazepines. Serum alcohol level was reviewed and was less than 3.0. Basic metabolic profile was reviewed. Glucose was slightly elevated at 171. BUN was slightly elevated at 21. Anion gap was normal. CBC was reviewed and was within normal limits. Crisis counselor was in to evaluate the patient. Crisis counselor was able to perform a safety plan with the patient. Patient will be discharged. Patient understood and was agreeable with plan. All questions were answered. Lab Data Labs: Laboratory Results - last 24 hr 08/25/23 08/25/23 13:25 13:45 WBC 9.1 RBC 4.66 Hgb 13.1 Hct 41.4 MCV 88.8 MCH 28.1 MCHC 31.6 L RDW Std Deviation 45.6 H RDW Coeff of Shruti 14.1 Plt Count 227 MPV 9.6 Immature Gran % (Auto) 0.500 Neut % (Auto) 73.0 H Lymph % (Auto) 18.0 L [place] % (Auto) 7.3 Eos % (Auto) 0.9 Baso % (Auto) 0.3 Absolute Neuts (auto) 6.7 Absolute Lymphs (auto) 1.64 Nucleated RBC % 0 Sodium 135 L Potassium 3.8 Chloride 99 Carbon Dioxide 34.0 H Anion Gap 2 L BUN 21 H Creatinine 0.84 Estim Creat Clear Calc 102.32 Est GFR (MDRD) Af Amer 128 Est GFR (MDRD) Non-Af 106 BUN/Creatinine Ratio 25.0 H Glucose 171 H Calcium 9.1 Urine Opiates Screen NEGATIVE Urine Methadone Screen NEGATIVE Ur Barbiturates Screen NEGATIVE Ur Phencyclidine Scrn NEGATIVE Ur Amphetamines Screen NEGATIVE MDMA (Ecstasy) Screen NEGATIVE U Benzodiazepines Scrn POSITIVE H Urine Cocaine Screen NEGATIVE U Cannabinoids Screen NEGATIVE Ur Drug Screen Comment Ethyl Alcohol < 3.0 Discharge Plan Triage Chief Complaint: Wound ED Midlevel Provider: Noah Vuong ED Provider: Pawan Cardenas Dx/Rx/DC Orders Clinical Impression: Chronic wound, Schizophrenia Prescriptions: No Action albuterol sulfate [Ventolin HFA] 1 INHALER inhaler 1 - 2 puff inhalation Q4H PRN PRN (Reason: Shortness Of Breath) Qty: 1 0RF acetaminophen [Tylenol] 325 MG tablet 650 mg PO Q4H PRN PRN (Reason: Pain) pantoprazole 40 MG tablet 40 mg PO DAILY Hold Instructions: MD Ordered divalproex 500 MG tablet extended release 24 hr 1,000 mg PO BID Hold Instructions: MD Ordered aripiprazole [Abilify] 30 MG tablet 30 mg PO BID Hold Instructions: MD Ordered divalproex [Depakote] 500 mg tablet,delayed release (DR/EC) 500 mg PO BID levothyroxine [Euthyrox] 50 mcg tablet 50 mcg PO DAILY glimepiride 4 mg tablet 4 mg PO DAILY simvastatin [Zocor] 40 mg tablet 40 mg PO DAILY mirtazapine 15 mg tablet 15 mg PO DAILY ziprasidone HCl [Geodon] 60 mg capsule 60 mg PO BID Rx Instructions: give with food (meal/snack) lorazepam [Ativan] 2 mg tablet 2 mg PO BID Primary Care Provider: Crow Gill Referrals: Crow Gill MD [Primary Care Provider] - Disposition Disposition: Home, Self Care Discharge Date/Time: 08/25/23 14:59
--- NOTE | 2023-08-25 13:02 | CM.ED ---
Social Work SW received call from Natividad of crisis. Pt's family has been calling crisis regarding patients behaviors - increased aggression, outside in his underwear and leaving home/saying he is homeless but he is not. These behaviors do seem to be patient's baseline. SW consulted medical staff regarding crisis' concerns and they are in agreement for crisis to evaluate patient. Natividad from crisis will be in to evaluate. Celine Aguirre TECHNICAL LEAD, HOG SLAUGHTERER
[2023-08-25 13:46] LABS: Absolute Lymphocyte Count 1.64 X10^3/uL (0.83-4.51); Absolute Neutrophil Count 6.7 X10^3/uL (2.0-7.7); Basophil# 0.03 X10^3/uL; Basophil% 0.3 % (0-1); Eosinophil# 0.08 X10^3/uL; Eosinophils% 0.9 % (0-5); Hematocrit 41.4 % (40-54); Hemoglobin 13.1 g/dL (13.0-16.5); Lymphocyte # 1.64 X10^3/ul (0.83-4.51); Mean Corp Hgb Conc 31.6 g/dL (32-36); Mean Corpuscular Hgb 28.1 pg (27.0-32.0); Mean Corpuscular Volume 88.8 fL (80-94); Mean Platelet Vol. 9.6 fl (6.2-12.0); Monocyte# 0.67 X10^3/uL; Monocyte% 7.3 % (0-10); NRBC Flagged by Analyzer 0 % (0-5); Neutrophil # 6.66 X10^3/uL (2.7-7.7); Platelet Count 227 K/mm3 (150-450); RBC Distribution Width CV 14.1 % (11.6-14.6); RBC Distribution Width SD 45.6 fl (35.1-43.9); Red Blood Count 4.66 M/mm3 (4.6-6.2); White Blood Count 9.1 K/mm3 (4.4-11.0)
[2023-08-25 13:57] LABS: Anion Gap 2 (5-15); BUN 21 mg/dL (7-18); Calcium,Total 9.1 mg/dL (8.5-10.1); Chloride 99 mmol/L (98-107); Creatinine, Serum 0.84 mg/dL (0.70-1.30); EST Glomerular Filtration Rate 106 mL/min (>60); Est Glom Filt Rate - Afr Amer 128 mL/min (>60); Estimated Creatinine Clearance 102.32 ml/min; Glucose 171 mg/dL (74-106); Potassium 3.8 mmol/L (3.5-5.1); Sodium Level 135 mmol/L (136-145)
[2023-08-25 14:04] LABS: Amphetamine Urine VISTA NEGATIVE (<1000 ng/mL); Barbiturate Urine VISTA NEGATIVE (< 200 ng/mL); Benzodiazepine Urine VISTA POSITIVE (< 200 ng/mL); Cocaine Urine VISTA NEGATIVE (< 300 ng/mL); Ecstacy Urine VISTA NEGATIVE (< 500 ng/mL); Methadone Urine VISTA NEGATIVE (< 300 ng/mL); PCP Urine VISTA NEGATIVE (< 25 ng/mL); THC Urine VISTA NEGATIVE (< 50 ng/mL); Vista UDS pH Range 7
[2023-08-25 14:10] LABS: Alcohol, Blood (Medical)-Serum < 3.0 mg/dL
[2023-08-26 21:49] LABS: Bedside Glucose 214 mg/dL (74-106)
== END 2023-08-25 14:59 | disposition home or self-care (01) ==
PROVIDERS: Nurse Practitioner; Emergency Provider Emergency Medicine; PCP Family Medicine; Visit Provider Emergency Medicine
DX: S81.801A Unspecified open wound, right lower leg, initial encounter (principal); F20.9 Schizophrenia, unspecified; E11.9 Type 2 diabetes mellitus without complications; F17.210 Nicotine dependence, cigarettes, uncomplicated; X58.XXXA Exposure to other specified factors, initial encounter
CPT/HCPCS: 36415; 80048; 80307; 82077; 82962; 85025; 87811; 99282

== ENCOUNTER 2023-08-25 20:20 | Emergency (ER) | payer MEDICARE, MEDICAID, SELFPAY ==
[2023-08-25 20:25] VITALS: BP 168/89; PULSE 111; RESP 18; TEMP 36.5; O2SAT 98; BMI 41.1
--- NOTE | 2023-08-25 21:11 | EDS_ITS ---
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 History of schizophrenia.He was here earlier for evaluation. Reported discharged from [facility] yesterday. He is on Abilify reports gets injections every 28 days. He states no other medications. He was seen and cleared with a safety plan by case management earlier today. He states he is homeless. He states is cold outside he is doing everything can get into room. He denies suicidal or homicidal ideations. He denies any auditory or visual hallucinations. In addition, he was COVID-positive earlier today. Denies any symptoms states has a cough since he started smoking. No fevers headache nausea or vomiting. [facility] Medical History Hypothyroidism Mental health disorder Schizophrenia Home Medications albuterol sulfate 90 mcg/actuation aerosol inhaler (Ventolin HFA) 1 - 2 puff inhalation Q4H PRN PRN Shortness Of Breath ##1 04/06/16 [Rx Last Taken Unknown] acetaminophen 325 mg tablet (Tylenol) 650 mg PO Q4H PRN PRN Pain 03/01/17 [History Last Taken Unknown] aripiprazole 30 mg tablet (Abilify) 30 mg PO BID 03/01/17 [History Last Taken Unknown] divalproex 500 mg tablet,extended release 24 hr 1,000 mg PO BID 03/01/17 [History Last Taken Unknown] pantoprazole 40 mg tablet,delayed release 40 mg PO DAILY 03/01/17 [History Last Taken Unknown] divalproex 500 mg tablet,delayed release (Depakote) 500 mg PO BID 07/21/23 [History Last Taken Unknown] glimepiride 4 mg tablet 4 mg PO DAILY 07/21/23 [History Last Taken Unknown] levothyroxine 50 mcg tablet (Euthyrox) 50 mcg PO DAILY 07/21/23 [History Last Taken Unknown] lorazepam 2 mg tablet (Ativan) 2 mg PO BID 07/21/23 [History Last Taken Unknown] mirtazapine 15 mg tablet 15 mg PO DAILY 07/21/23 [History Last Taken Unknown] simvastatin 40 mg tablet (Zocor) 40 mg PO DAILY 07/21/23 [History Last Taken Unknown] ziprasidone HCl 60 mg capsule (Geodon) 60 mg PO BID 07/21/23 [History Last Taken Unknown] Allergy/AdvReac Type Severity Reaction Status Date / Time haloperidol [From Haldol] Allergy Other Verified 08/03/23 21:33 haloperidol lactate Allergy Other Verified 08/03/23 21:33 [From Haldol] risperidone [From Risperdal] Allergy Other Verified 08/03/23 21:33 acetaminophen AdvReac Diarrhea Verified 08/03/23 21:33 [From Coricidin HBP] aripiprazole [From Abilify] AdvReac Other Verified 08/03/23 21:33 chlorpheniramine AdvReac Diarrhea Verified 08/03/23 21:33 [From Coricidin HBP] dextromethorphan AdvReac Diarrhea Verified 08/03/23 21:33 [From Coricidin HBP] guaifenesin AdvReac Diarrhea Verified 08/03/23 21:33 [From Coricidin HBP] Social History Smoking Status: Current every day smoker tobacco type: cigarettes ROS ROS ED Constitutional Constitutional ED: Denies chills, fever(s) or sweats Eyes Eyes: Denies change in vision ENT ENT ED: Denies dysphagia or sore throat Cardiovascular Cardiovascular: Denies chest pain, leg edema, palpitations or racing heartbeat Respiratory/Chest Respiratory/Chest: Denies cough, dyspnea or dyspnea on exertion Gastrointestinal Gastrointestinal: Denies abdominal pain, diarrhea, nausea or vomiting Genitourinary Genitourinary ED: Denies dysuria, hematuria or urinary frequency Musculoskeletal Musculoskeletal: Denies back pain, extremity pain or neck pain Integumentary Denies rash or wounds Neurologic Neurologic: Denies headache(s), paresthesias or weakness Psychiatric Psychiatric: Denies suicidal ideation or suicidal thoughts EXAM Physical Exam Const Vital Signs: 08/25/23 20:25 Temperature 97.7 F L Temperature Source Temporal Pulse Rate 111 H Respiratory Rate 18 Blood Pressure 168/89 H Blood Pressure Mean 115 Pulse Ox 98 Oxygen Delivery Method Room Air Positive well nourished and well developed General Appearance ED: well developed and NAD HEENT Reports moist mucous membranes normocephalic and atraumatic Eyes PERRL, EOMs intact bilaterally and conjunctivae normal General Eye ED: Yes normal appearance of both eyes Neck no lymphadenopathy and supple General: Negative for tenderness Chest Wall Chest: Negative for tenderness Resp normal respiratory effort and normal air movement Effort and Inspection: symmetric chest movement; Negative for respiratory distress Cardio regular rate, regular rhythm and no murmurs Peripheral Pulses: pulses 2+ throughout GI normal to inspection, nondistended, normoactive bowel sounds and non-tender Palpation: Negative for guarding or rebound tenderness present Back/Spine no CVA tenderness and no thoracic nor lumbar tenderness Extremity normal to inspection General Extremety ED: Negative for edema or tenderness General Extremity: Negative for edema Neuro oriented x3 and no sensory deficits noted Sensorium / Orientation: awake and alert Psych Negative for denies hallucinations, denies homicidal ideation or denies suicidal ideation Skin no rashes or lesions noted and no wounds MDM MDM MDM Narrative Medical decision making narrative: Interventions / MDM: Differential diagnosis: Schizophrenia Diagnosis considered but do not suspect: N/A My EKG interpretation: N/A Imaging independently reviewed and interpreted by myself: N/A External documents reviewed: N/A Test considered but not ordered:N/A ED course: Patient brought in here trying to get in the hotel rooms. It is cold outside. He has history of schizophrenia. He denies suicide homicide ideations. He reports he is homeless. COVID-positive earlier evaluation. After evaluation patient, received call from his Sister Bernadette, states he has multiple family members that he can stay with however he does not want to stay with them. I discussed this with the patient, he states he is only willing to stay with Abigail, Didier,or Leann. Cooperative at this time. Nursing will talk with family member to see if one of the family members is willing to pick him up. 2200: Update, nursing called multiple family members, spoke with his mother who states he does have a room at her house. When approached with patient on this, he states if his mother comes that he threatened homicidal intentions if she comes. He states if he leaves the hospital suicidal ideations. Medical workup was initiated earlier. He had a asymptomatic rapid COVID testing. Will check a PCR. Will discuss with crisis with patient failing a safety plan earlier. [place] slip was filled out. 2220: Nursing reach out to crisis, they are requesting another toxicology screen prior to their evaluation. This was ordered. 2315: Toxicology screen negative. Crisis also request an alcohol level rechecked this was ordered. COVID PCR returned positive. Patient was signed out to night physician, pending crisis evaluation Re-evaluation: Disposition discussed with patient/family/significant other: Case discussed with consulting clinician: This note was generated with [employer] dictation software. It may contain incorrect words, spelling, and punctuation that were not noted in checking the note before signing. Lab Data Attestation: I reviewed the patient's lab results. Labs: Laboratory Results - last 24 hr 08/25/23 21:30 Urine Opiates Screen NEGATIVE Urine Methadone Screen NEGATIVE Ur Barbiturates Screen NEGATIVE Ur Phencyclidine Scrn NEGATIVE Ur Amphetamines Screen NEGATIVE MDMA (Ecstasy) Screen NEGATIVE U Benzodiazepines Scrn NEGATIVE Urine Cocaine Screen NEGATIVE U Cannabinoids Screen NEGATIVE Ur Drug Screen Comment Discharge Plan Triage Chief Complaint: Mental Health ED Provider: Louis Colon Dx/Rx/DC Orders Clinical Impression: Suicidal ideation, Schizophrenia, Homicidal ideation Prescriptions: No Action albuterol sulfate [Ventolin HFA] 1 INHALER inhaler 1 - 2 puff inhalation Q4H PRN PRN (Reason: Shortness Of Breath) Qty: 1 0RF acetaminophen [Tylenol] 325 MG tablet 650 mg PO Q4H PRN PRN (Reason: Pain) pantoprazole 40 MG tablet 40 mg PO DAILY Hold Instructions: MD Ordered divalproex 500 MG tablet extended release 24 hr 1,000 mg PO BID Hold Instructions: MD Ordered aripiprazole [Abilify] 30 MG tablet 30 mg PO BID Hold Instructions: MD Ordered divalproex [Depakote] 500 mg tablet,delayed release (DR/EC) 500 mg PO BID levothyroxine [Euthyrox] 50 mcg tablet 50 mcg PO DAILY glimepiride 4 mg tablet 4 mg PO DAILY simvastatin [Zocor] 40 mg tablet 40 mg PO DAILY mirtazapine 15 mg tablet 15 mg PO DAILY ziprasidone HCl [Geodon] 60 mg capsule 60 mg PO BID Rx Instructions: give with food (meal/snack) lorazepam [Ativan] 2 mg tablet 2 mg PO BID Primary Care Provider: Crow Gill Referrals: Crow Gill MD [Primary Care Provider] -
--- NOTE | 2023-08-25 22:02 | ED.RN ---
Bernadette, sister called in to check on patient. She is willing to have him live with her but patient refuses. Mother, Jeny is also wants him to live with her but he refuses. Wants to live with sister, Leann but she does not want him to live with her. Patient previously lived with brother, Noah who pt does not want to live with. When nurse stated that his mother could pick him up and take him home- he said I will kill her. He then said now you have to lock me up.
[2023-08-25 22:41] LABS: Amphetamine Urine VISTA NEGATIVE (<1000 ng/mL); Barbiturate Urine VISTA NEGATIVE (< 200 ng/mL); Benzodiazepine Urine VISTA NEGATIVE (< 200 ng/mL); Cocaine Urine VISTA NEGATIVE (< 300 ng/mL); Ecstacy Urine VISTA NEGATIVE (< 500 ng/mL); Methadone Urine VISTA NEGATIVE (< 300 ng/mL); PCP Urine VISTA NEGATIVE (< 25 ng/mL); THC Urine VISTA NEGATIVE (< 50 ng/mL); Vista UDS pH Range 6
[2023-08-25 23:34] LABS: Alcohol, Blood (Medical)-Serum < 3.0 mg/dL
[2023-08-25] MEDS: Ketorolac 30 MG/ML Syringe IM (23:55)
--- NOTE | 2023-08-25 23:59 | EKG12_ITS ---
Test Reason : [facility] [place] [facility] [place] Pressure : / mmHG Vent. Rate : 097 BPM Atrial Rate : 097 BPM P-R Int : 174 ms QRS Dur : 070 ms QT Int : 356 ms P-R-T Axes : 068 048 050 degrees QTc Int : 452 ms Normal sinus rhythm Septal infarct , age undetermined Abnormal ECG Confirmed by KYLE MCKENNA, MARYA ([id number]), metropolitan editor JOHN ESCOBEDO ([id number]) on 08/28/2023 10:47:23 AM Referred By: Confirmed By:MARYA WRIGHT MD
[2023-08-26] VITALS (10 sets, daily range): BP systolic 149–167; BP diastolic 74–127; PULSE 75–104; RESP 14–22; O2SAT 91–97
--- NOTE | 2023-08-26 01:03 | ED.RN ---
[facility] is requiring a nursing note for admission: Patient does not have any symptoms of covid, denies cough, denies SOB, denies nausea, vomiting and diarrhea, denies fever. Patient has been calm but restless. Pt continues to be redirectable.
--- NOTE | 2023-08-26 01:14 | ED.RN ---
Pt has history of violent behavior when woken from sleeping. Pt is currently sleeping in position of comfort, respirations even and unlabored.
--- NOTE | 2023-08-26 07:47 | ED.RN ---
Patient reminded several times he needs to keep his door shut and wear a mask when he leaves his room d/t COVID diagnosis. Everything removed from room and drawers/cabinets locked as patient has been going through drawers and putting clean supplies into patient belonging bags. Breakfast tray ordered.
--- NOTE | 2023-08-26 07:53 | ED.RN ---
Carlos Eduardo gave verbal consent to this RN to update his mother Jeny. Jeny does not want patient to be placed so this RN gave her the counseling center's phone number to call them and discuss plan of care. Mother informed pt. tested positive for COVID as well.
--- NOTE | 2023-08-26 09:10 | ED.RN ---
Pt. found in room naked with curtain closed. Pt. was told the curtain needs to stay open and his gown needs to stay on .
--- NOTE | 2023-08-26 09:39 | ED.RN ---
Pt. hitting head on glass door. Pt. told he needed to stop.
[2023-08-26] MEDS: Ziprasidone IM 20 MG/ML VIAL IM (09:48)
--- NOTE | 2023-08-26 09:48 | ED.RN ---
Pt. attempting to leave ER. pt directed back to room by myself and security. Pt. medicated with adriana
--- NOTE | 2023-08-26 11:45 | ED.RN ---
Pt. walked out to nurses desk talking about black holes. Celine BARRON, Gemma SUPERVISOR PHOTOCOMPOSITION and this RN encouraging pt. to return back to room. Pt. refusing to go back to room and becoming more agitated. Denis sba business development officer at nurses station attempting to calm pt. down. Pt. was offered snacks, nicotine gum and drinks to calm him down and get him back to his room. Pt. stepped toward Gemma and said I am the alpha and the omega you bitch. Pt. became face to face with Denis and was making threats about leaving. Dr. Damon is at nurses station witnessing situation. After not being able to be redirected and making threatening comments Denis assisted pt. to ground in order to keep staff safe. Denis and Dr. Damon assisted pt. into wheelchair and this RN wheeled pt. into room and assisted pt. into bed and into 4 point restraints. Pt. placed on monitor and medicated per order, pt. continues to mumble about black holes, [place], and a zillion dollars that he has in his bank account.
[2023-08-26] MEDS: LORazepam 2 MG/ML Syringe IM (11:59)
[2023-08-26] MEDS: DiphenhydrAMINE 50 MG/ML Syringe IM (11:59)
--- NOTE | 2023-08-26 13:10 | ED.RN ---
PT AWAKENS TO VERBAL STIMULI. EXPLAINED THAT RESTRAINTS CAN BE REMOVED IF PT IS COOPERATIVE AND CALM. PT VOICES AGREEMENT. RESTRAINTS REMOVED
--- NOTE | 2023-08-26 14:03 | ED.RN ---
THIS RN RECEIVED PHONE CALL FROM SYLVAIN ADAMES. CHRISTIANO HAS A 5 DAY QUARANTINE BEFORE PT CHART CAN BE REVIEWED. PABLO OMALLEY CALLED REQUESTING RECENT MEDICATION ADMINISTRATION INFORMATION AND REPORTS THEY ARE STILL REVIEWING HIS CHART.
--- NOTE | 2023-08-26 14:28 | ED.RN ---
PT WAS DECLINED AT [facility] DUE TO COVID POSITIVE STATUS.
--- NOTE | 2023-08-26 15:43 | CM.ED ---
Social Work SW spoke with crisis regarding placement. SW voiced concerns regarding patient having numerous psych placements in the last 2 months without improvement. Pt seems to be delusional at baseline with behavioral concerns and is medication compliant currently. Pt would likely benefit from a guardian and residential placement for more prison solutions. Recurrent psych placement do not present as making improvement. Pt is also claiming homelessness but has a sister and a brother that he could live with but chooses not too. Crisis report feeling [facility] would be a good option as they will keep patients longer and could look into guardianship. Crisis did refer patient to [facility] and was notified pt would have to be 5 days post covid positive results or a new test that is negative. Pt still pending placement due to covid positive status. Celine Aguirre SHORTHAND TEACHER, WEBSPHERE DEVELOPER
[2023-08-27] MEDS: BENZOCAINE/MENTHOL 1 LOZENGE 2 LOZENGE MUCOUS MEM (00:26)
[2023-08-27] MEDS: Ibuprofen 600 MG Tablet PO (00:36)
[2023-08-27 06:00] VITALS: BP 184/167; PULSE 76; RESP 24; TEMP 36.3; O2SAT 96
--- NOTE | 2023-08-27 06:06 | ED.RN ---
downtime charting form [id number] 08/27/23. see paper downtime charting.
[2023-08-27] MEDS: Ziprasidone IM 20 MG/ML VIAL IM (07:32)
[2023-08-27] MEDS: DiphenhydrAMINE 50 MG/ML Syringe IM (07:32)
[2023-08-27] MEDS: LORazepam 2 MG/ML Syringe IM (07:32)
[2023-08-27 10:27] VITALS: RESP 20
--- NOTE | 2023-08-27 11:56 | NURSING ---
CALLED [facility], ETA IS 30 TO 45 MIN
--- NOTE | 2023-08-27 12:22 | ED.RN ---
REPORT CALLED TO C1 NURSE AT [facility]
== END 2023-08-27 12:57 ==
PROVIDERS: Emergency Provider Emergency Medicine; PCP Family Medicine; Visit Provider Emergency Medicine
DX: R45.851 Suicidal ideations (principal); F20.9 Schizophrenia, unspecified; E11.9 Type 2 diabetes mellitus without complications; R45.850 Homicidal ideations; F17.210 Nicotine dependence, cigarettes, uncomplicated
CPT/HCPCS: 36415; 80307; 82077; 87635; 93005; 96372; 99283; J3486

== ENCOUNTER 2023-11-24 15:22 | Emergency (ER) | payer MEDICARE, MEDICAID, SELFPAY ==
[2023-11-24] VITALS (8 sets, daily range): BP systolic 142–178; BP diastolic 82–94; PULSE 79–108; RESP 16–22; TEMP 36.1–36.6; O2SAT 94–97; BMI 39.4
--- NOTE | 2023-11-24 16:04 | EKG12_ITS ---
Test Reason : Blood Pressure : / mmHG Vent. Rate : 091 BPM Atrial Rate : 091 BPM P-R Int : 158 ms QRS Dur : 068 ms QT Int : 372 ms P-R-T Axes : 062 056 056 degrees QTc Int : 457 ms Normal sinus rhythm Normal ECG Confirmed by GUILHERME MCKENNA, CARRIE ([id number]), digital editor SARATH SHAH ([id number]) on 12/01/2023 9:55:23 AM Referred By: KEI Confirmed By:AMERICO VANEGAS MD
--- NOTE | 2023-11-24 16:06 | EDS_ITS ---
HPI HPI - Psych History of Present Illness Chief Complaint: Mental Health Narrative Narrative: 42-year-old male brought in by his nephew because of psychosis and homicidal ideation. Patient states he has past medical history of schizophrenia, schizoaffective disorder, and depression. He states he also has history of psychosis. His nephew states that he has been staying with his grandmother, and that he himself lives next-door. Patient has gone from being/acting like a 2-year-old to extreme psychosis today with homicidal threats to his family. He states that they were told by the social insurance administrator to bring him into the emergency department. In the last 60 days, he has been admitted at [facility]. Since his release, he has not been compliant with his medications. He states he was supposed to follow-up with his psychiatrist, Dr. Perez, today but did not. Additionally, his nephew states that he has spent the better part of the last 3 months out of 4 months hospitalized for psychiatric reasons. [facility] Medical History Hypothyroidism Mental health disorder Schizophrenia Home Medications albuterol sulfate 90 mcg/actuation aerosol inhaler (Ventolin HFA) 1 - 2 puff inhalation Q4H PRN PRN Shortness Of Breath ##1 04/06/16 [Rx Last Taken Unknown] acetaminophen 325 mg tablet (Tylenol) 650 mg PO Q4H PRN PRN Pain 03/01/17 [History Last Taken Unknown] aripiprazole 30 mg tablet (Abilify) 30 mg PO BID 03/01/17 [History Last Taken Unknown] divalproex 500 mg tablet,extended release 24 hr 1,000 mg PO BID 03/01/17 [History Last Taken Unknown] pantoprazole 40 mg tablet,delayed release 40 mg PO DAILY 03/01/17 [History Last Taken Unknown] divalproex 500 mg tablet,delayed release (Depakote) 500 mg PO BID 07/21/23 [History Last Taken Unknown] glimepiride 4 mg tablet 4 mg PO DAILY 07/21/23 [History Last Taken Unknown] levothyroxine 50 mcg tablet (Euthyrox) 50 mcg PO DAILY 07/21/23 [History Last Taken Unknown] lorazepam 2 mg tablet (Ativan) 2 mg PO BID 07/21/23 [History Last Taken Unknown] mirtazapine 15 mg tablet 15 mg PO DAILY 07/21/23 [History Last Taken Unknown] simvastatin 40 mg tablet (Zocor) 40 mg PO DAILY 07/21/23 [History Last Taken Unknown] ziprasidone HCl 60 mg capsule (Geodon) 60 mg PO BID 07/21/23 [History Last Taken Unknown] Allergy/AdvReac Type Severity Reaction Status Date / Time haloperidol [From Haldol] Allergy Other Verified 11/24/23 15:23 haloperidol lactate Allergy Other Verified 11/24/23 15:23 [From Haldol] risperidone [From Risperdal] Allergy Other Verified 11/24/23 15:23 acetaminophen AdvReac Diarrhea Verified 11/24/23 15:23 [From Coricidin HBP] aripiprazole [From Abilify] AdvReac Other Verified 11/24/23 15:23 chlorpheniramine AdvReac Diarrhea Verified 11/24/23 15:23 [From Coricidin HBP] dextromethorphan AdvReac Diarrhea Verified 11/24/23 15:23 [From Coricidin HBP] guaifenesin AdvReac Diarrhea Verified 11/24/23 15:23 [From Coricidin HBP] Social History Smoking Status: Current every day smoker tobacco type: cigarettes ROS ROS ED ROS Narrative Constitutional: No fever, no chills. HEENT: No sore throat. No neck pain. No loss of vision. No rhinorrhea. Cardiovascular: No chest pain. No palpitations. No pedal edema. Respiratory: No cough, no shortness of breath. Abdominal: No abdominal pain. No nausea. No vomiting. Genitourinary: No dysuria. No hematuria. Musculoskeletal: No myalgias. No arthralgias. Neurologic: No headaches. No dizziness. No lightheadedness. Skin: No rash. No change in color. Psychiatric: No depression. No anxiety. Positive psychosis, positive homicidal behavior. EXAM Physical Exam Narrative Exam Narrative: Afebrile. Vital signs noted. HEENT: Normocephalic. Atraumatic. PERRL, EOMI. Neck soft and supple. No point tenderness or step off. Cardiovascular: Regular rate and rhythm. No murmurs, rubs, or gallops appreciated. Respiratory: No tachypnea. Lungs clear to auscultation bilaterally. Gastrointestinal: Abdomen soft, nontender, with normoactive bowel sounds. No rebound or guarding. Neurological: Awake. Alert. Nonfocal, nonlateralizing. Skin: No rash. Normal color. No pallor. Musculoskeletal: No pedal edema. Full range of motion extremities. Psychiatric: Intermittently cooperative. Becomes aggressive. Labile affect. Const Vital Signs: 11/24/23 15:25 11/24/23 17:31 11/24/23 18:00 Temperature 97 F L Temperature Source Temporal Pulse Rate 108 H 91 Respiratory Rate 18 16 22 H Blood Pressure 178/94 H Blood Pressure Mean 122 Pulse Ox 97 94 Oxygen Delivery Method Room Air Room Air 11/24/23 19:00 11/24/23 20:00 Temperature Temperature Source Pulse Rate Respiratory Rate 16 16 Blood Pressure Blood Pressure Mean Pulse Ox 97 97 Oxygen Delivery Method Room Air Room Air MDM MDM MDM Narrative Medical decision making narrative: While the patient was in the room, getting into a gown, he started yelling, cursing. He did not want to give up his vape. He started yelling at the nurses. I do feel that as he is not redirectable that he is a danger to the staff. He will be medicated with Geodon. I reviewed his prior records and he has required multiple medications in the past including ketamine, Geodon, and Ativan. He does have allergies to haloperidol and risperidone listed. EKG was obtained and interpreted by myself independently as normal sinus rhythm at 91 bpm without ectopy or acute ST changes. No STEMI. I reviewed his laboratory work and he has a slightly elevated white count of 11.3 which I think is nonspecific, hemoglobin normal at 13.4, platelet count normal at 279. CMP is remarkable for chloride of 108 and a glucose of 137 with a low anion gap of 3. Urine for drugs of abuse is positive for cannabinoids. Ethyl alcohol is less than 3. I do think that after review of his previous ED visits, showing that he has required antipsychotics in the past, that he will need to be placed in a psychiatric facility. Patient was discussed with case management/social work, and plan will be for placement. I feel he is medically cleared. Disposition is pending but anticipated psychiatric facility placement. Currently, he is in stable condition. I read discussed patient with social work/case management. The patient is out of of his psychiatric/mental health days and will most likely need to be referred to [facility] and readmitted there. As they require COVID swab and lipid panel, these were added. At this point in time, patient will be signed out to the overnight physician to continue observation until patient is placed in a psychiatric facility. He remains in stable condition. History & Record Review Discussion w/independent historian: Patient and Family Additional record(s) reviewed:: Prior ED visit (Patient required multiple doses of antipsychotic medications at times.) and Prior labs Lab Data Attestation: I reviewed the patient's lab results. Labs: Laboratory Results - last 24 hr 11/24/23 11/24/23 16:50 17:45 WBC 11.3 H RBC 4.84 Hgb 13.4 Hct 40.9 MCV 84.5 MCH 27.7 MCHC 32.8 RDW Std Deviation 48.8 H RDW Coeff of Shruti 15.9 H Plt Count 270 MPV 9.5 Immature Gran % (Auto) 0.400 Neut % (Auto) 64.9 Lymph % (Auto) 26.8 [place] % (Auto) 5.1 Eos % (Auto) 2.5 Baso % (Auto) 0.3 Absolute Neuts (auto) 7.3 Absolute Lymphs (auto) 3.03 Nucleated RBC % 0 Sodium 140 Potassium 3.9 Chloride 108 H Carbon Dioxide 29.0 Anion Gap 3 L BUN 17 Creatinine 0.78 Estim Creat Clear Calc 142.60 Est GFR (MDRD) Af Amer 140 Est GFR (MDRD) Non-Af 116 BUN/Creatinine Ratio 21.9 H Glucose 137 H Calcium 9.4 Urine Opiates Screen NEGATIVE Urine Methadone Screen NEGATIVE Ur Barbiturates Screen NEGATIVE Ur Phencyclidine Scrn NEGATIVE Ur Amphetamines Screen NEGATIVE MDMA (Ecstasy) Screen NEGATIVE U Benzodiazepines Scrn NEGATIVE Urine Cocaine Screen NEGATIVE U Cannabinoids Screen POSITIVE H Ur Drug Screen Comment Ethyl Alcohol < 3.0 Discharge Plan Triage Chief Complaint: Mental Health ED Provider: Pb León Dx/Rx/DC Orders Prescriptions: No Action albuterol sulfate [Ventolin HFA] 1 INHALER inhaler 1 - 2 puff inhalation Q4H PRN PRN (Reason: Shortness Of Breath) Qty: 1 0RF acetaminophen [Tylenol] 325 MG tablet 650 mg PO Q4H PRN PRN (Reason: Pain) pantoprazole 40 MG tablet 40 mg PO DAILY Hold Instructions: MD Ordered divalproex 500 MG tablet extended release 24 hr 1,000 mg PO BID Hold Instructions: MD Ordered aripiprazole [Abilify] 30 MG tablet 30 mg PO BID Hold Instructions: MD Ordered divalproex [Depakote] 500 mg tablet,delayed release (DR/EC) 500 mg PO BID levothyroxine [Euthyrox] 50 mcg tablet 50 mcg PO DAILY glimepiride 4 mg tablet 4 mg PO DAILY simvastatin [Zocor] 40 mg tablet 40 mg PO DAILY mirtazapine 15 mg tablet 15 mg PO DAILY ziprasidone HCl [Geodon] 60 mg capsule 60 mg PO BID Rx Instructions: give with food (meal/snack) lorazepam [Ativan] 2 mg tablet 2 mg PO BID Primary Care Provider: Crow Gill Referrals: Crow Gill MD [Primary Care Provider] -
[2023-11-24] MEDS: Ziprasidone IM 20 MG/ML VIAL IM (16:30)
[2023-11-24] MEDS: Lorazepam 2 MG/ML WCH Syringe IM (16:31)
[2023-11-24 17:09] LABS: Amphetamine Urine VISTA NEGATIVE (<1000 ng/mL); Barbiturate Urine VISTA NEGATIVE (< 200 ng/mL); Benzodiazepine Urine VISTA NEGATIVE (< 200 ng/mL); Cocaine Urine VISTA NEGATIVE (< 300 ng/mL); Ecstacy Urine VISTA NEGATIVE (< 500 ng/mL); Methadone Urine VISTA NEGATIVE (< 300 ng/mL); PCP Urine VISTA NEGATIVE (< 25 ng/mL); THC Urine VISTA POSITIVE (< 50 ng/mL); Vista UDS pH Range 6
[2023-11-24 17:55] LABS: Absolute Lymphocyte Count 3.03 X10^3/uL (0.83-4.51); Absolute Neutrophil Count 7.3 X10^3/uL (2.0-7.7); Basophil# 0.03 X10^3/uL; Basophil% 0.3 % (0-1); Eosinophil# 0.28 X10^3/uL; Eosinophils% 2.5 % (0-5); Hematocrit 40.9 % (40-54); Hemoglobin 13.4 g/dL (13.0-16.5); Lymphocyte # 3.03 X10^3/ul (0.83-4.51); Lymphocyte % 26.8 % (19-41); Mean Corp Hgb Conc 32.8 g/dL (32-36); Mean Corpuscular Hgb 27.7 pg (27.0-32.0); Mean Corpuscular Volume 84.5 fL (80-94); Mean Platelet Vol. 9.5 fl (6.2-12.0); Monocyte# 0.58 X10^3/uL; Monocyte% 5.1 % (0-10); NRBC Flagged by Analyzer 0 % (0-5); Neutrophil # 7.32 X10^3/uL (2.7-7.7); Neutrophil % 64.9 % (47-70); Platelet Count 270 K/mm3 (150-450); RBC Distribution Width CV 15.9 % (11.6-14.6); RBC Distribution Width SD 48.8 fl (35.1-43.9); Red Blood Count 4.84 M/mm3 (4.6-6.2); White Blood Count 11.3 K/mm3 (4.4-11.0)
--- NOTE | 2023-11-24 17:56 | ED.RN ---
PT. MOVED FROM BED 6 TO BED 4.
--- NOTE | 2023-11-24 17:58 | ED.RN ---
DINNER TRAY ORDERED
[2023-11-24 18:10] LABS: Anion Gap 3 (5-15); BUN 17 mg/dL (7-18); BUN/Creat Ratio 21.9 RATIO (10-20); Calcium,Total 9.4 mg/dL (8.5-10.1); Chloride 108 mmol/L (98-107); Creatinine, Serum 0.78 mg/dL (0.70-1.30); EST Glomerular Filtration Rate 116 mL/min (>60); Est Glom Filt Rate - Afr Amer 140 mL/min (>60); Glucose 137 mg/dL (74-106); Potassium 3.9 mmol/L (3.5-5.1); Sodium Level 140 mmol/L (136-145)
[2023-11-24 18:18] LABS: Alcohol, Blood (Medical)-Serum < 3.0 mg/dL
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
--- NOTE | 2023-11-24 20:05 | CM.ED ---
Social Work SW referred patient to [facility]. SW received call that pt is out of psych bed days at this time. [facility] reports they are willing to take patient with [facility] funding if that is an option. [facility] will hold referral. SW will turn patient info over to crisis for review. Due to no bed days, patient may need [facility] placement or [facility] funding. Crisis to take over referral due to end of shift. Celine Aguirre ETIOLOGIST, HEEL DIPPER
[2023-11-24 21:11] LABS: Cholesterol 163 mg/dL (200); High Density Lipoprotein 33 mg/dL; Triglycerides 129 mg/dL; Very Low Density Lipoprotein 26 mg/dL (5-40)
--- NOTE | 2023-11-24 23:53 | ED.RN ---
PT REFERRED TO [facility] PER [facility]
[2023-11-25] VITALS (9 sets, daily range): BP systolic 130–134; BP diastolic 78–84; PULSE 72–81; RESP 16–22; TEMP 36.6; O2SAT 97–98
[2023-11-25] MEDS: LORazepam 1 MG Tablet PO (00:50)
[2023-11-25] MEDS: Acetaminophen 325 MG Tablet 650 MG PO (00:50)
--- NOTE | 2023-11-25 02:25 | ED.RN ---
PT ACCEPTED AT [facility] [phone]. REQUESTED NEW PINK SLIP FAXED BEFORE GIVING ACCEPTING DR. QUEEN CALLED, ETA 730AM.
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
--- NOTE | 2023-11-25 03:43 | ED.RN ---
This RN called report to nurse at [facility].
== END 2023-11-25 08:03 ==
PROVIDERS: Emergency Provider Emergency Medicine; PCP Family Medicine; Visit Provider Emergency Medicine
DX: R45.850 Homicidal ideations (principal); F25.1 Schizoaffective disorder, depressive type; E03.9 Hypothyroidism, unspecified; F17.210 Nicotine dependence, cigarettes, uncomplicated; F17.290 Nicotine dependence, other tobacco product, uncomplicated; Z91.148 Patient's other noncompliance with medication regimen for other reason; Z79.899 Other long term (current) drug therapy
CPT/HCPCS: 80048; 80061; 80307; 80320; 85025; 87811; 93005; 96372; 96374; 99284; G0480; J3486

== ENCOUNTER 2023-12-26 21:07 | Emergency (ER) | payer MEDICARE, MEDICAID, SELFPAY ==
[2023-12-26 21:09] VITALS: BP 128/66; PULSE 99; RESP 18; TEMP 36.6; O2SAT 96; BMI 39.6
--- NOTE | 2023-12-26 21:35 | RAD_ITS ---
STUDY: X-RAY - RIGHT TIBIA AND FIBULA REASON FOR EXAM: Male, 43 years old. pain TECHNIQUE: 3 view(s) of the tibia and fibula were obtained. COMPARISON: None. FINDINGS: There is recurrent comminuted fracture of the distal tibia with dorsal lateral angulation of fracture fragments there is disruption of the bony cortical margins and radiolucencies suggesting existing osteomyelitis. . There is also a pathologic fracture of the mid fibular shaft with dorsal and lateral angulation of fracture fragments with lytic changes also possibly due to osteomyelitis. There is diffuse soft tissue swelling of the distal calf. There are surgical clips seen within the soft tissues RAD/Tibia & Fibula 2 Views IMPRESSION: Displaced pathologic fractures of the distal tibia and mid fibular shaft which may be consistent with coexisting acute osteomyelitis Electronically Signed: Crow Fernando MD at 22:08 EDT ,
--- NOTE | 2023-12-26 21:47 | CT_ITS ---
EXAM: CT RIGHT LOWER EXTREMITY WITHOUT INTRAVENOUS CONTRAST CLINICAL INDICATION: right tibia TECHNIQUE: Helically acquired images were obtained of the right lower extremity without intravenous contrast. 2-D reformats were performed by the technologist. CTDIvol = ( 15.35 ) mGy, DLP = ( 818.13 ) mGycm This CT exam was performed using one or more of the following dose reduction techniques: automated exposure control, adjustment of the mA and/or kV according to patient size, and/or use of iterative reconstruction technique. COMPARISON: Same-day radiography of the tibia and fibula FINDINGS: BONES/JOINTS: Acute appearing comminuted fracture involving the distal shaft of the tibia with posterior angulation of the distal component. Evidence of previous/remote intramedullary carlos within the tibia. Calcifications along the patellar tendon potentially representing calcium hydroxyapatite crystal deposition disease or other benign tumor calcifications. Small suprapatellar joint effusion. Healing/incompletely healed fracture involving the midshaft of the fibula with callus formation. Fracture deformity which appears healed at the distal shaft of the fibula. No sclerotic or destructive changes. SOFT TISSUES: Extensive subcutaneous edema. No large organized fluid collections. VASCULATURE: Vascular calcifications involving the distal extremity. CT/Extremity Lower without Contra IMPRESSION: 1. Acute appearing comminuted fracture involving the distal shaft of the tibia with posterior angulation of the distal component. 2. Healing/incompletely healed fracture involving the midshaft of the fibula with callus formation. Electronically Signed: Aleksandr Jaime MD at 23:26 EDT ,
--- NOTE | 2023-12-26 21:55 | ED.VIS.LOWEX ---
HPI <Savanah Rasmussen RN - Last Filed: 12/26/23 23:06> History of Present Illness HPI Narrative: Patient is a 43-year-old male with prior history of right lower leg injury who presented to the ED via EMS for concerns of reinjury to his right lower leg. Patient reports approximately 1 month ago he fell while at his mother's house reinjuring his leg. He reports being seen at [facility] and told the leg was fractured, placed in a splint. He then followed up with his primary care doctor who told him his leg was not infected and he did not need to see orthopedics. The patient said he removed the splint as it was poking him. Patient reports 10 out of 10 right lower leg pain and new deformity since fall. He denies any recent injury since the fall 1 month ago. He does admit to drinking alcohol this morning at breakfast and smoking marijuana all day, every day. He also smokes 1 to 3 packs of cigarettes per day. Chief Complaint: Lower Extremity Injury Informant: patient Occured/Mechanism Mechanism/Context: Yes fall Onset/Context/Timing Onset: Month(s) (1) Timing: Continuous Quality of Pain: Sharp, Aching and Throbbing Current Severity: 10/10 Maximum Severity: 10/10 Worsened by: Ambulation Relieved by: Rest Narrative Tetanus Immunization: Unknown Prior similar symptoms: Yes Recent Illness/Hospitalization: No PFSH <Savanah Rasmussen RN - Last Filed: 12/26/23 23:06> PFSH Medical History Hypothyroidism Mental health disorder Schizophrenia Home Medications albuterol sulfate 90 mcg/actuation aerosol inhaler (Ventolin HFA) 1 - 2 puff inhalation Q4H PRN PRN Shortness Of Breath ##1 04/06/16 [Rx Last Taken Unknown] acetaminophen 325 mg tablet (Tylenol) 650 mg PO Q4H PRN PRN Pain 03/01/17 [History Last Taken Unknown] aripiprazole 30 mg tablet (Abilify) 30 mg PO BID 03/01/17 [History Last Taken Unknown] divalproex 500 mg tablet,extended release 24 hr 1,000 mg PO BID 03/01/17 [History Last Taken Unknown] pantoprazole 40 mg tablet,delayed release 40 mg PO DAILY 03/01/17 [History Last Taken Unknown] divalproex 500 mg tablet,delayed release (Depakote) 500 mg PO BID 07/21/23 [History Last Taken Unknown] glimepiride 4 mg tablet 4 mg PO DAILY 07/21/23 [History Last Taken Unknown] levothyroxine 50 mcg tablet (Euthyrox) 50 mcg PO DAILY 07/21/23 [History Last Taken Unknown] lorazepam 2 mg tablet (Ativan) 2 mg PO BID 07/21/23 [History Last Taken Unknown] mirtazapine 15 mg tablet 15 mg PO DAILY 07/21/23 [History Last Taken Unknown] simvastatin 40 mg tablet (Zocor) 40 mg PO DAILY 07/21/23 [History Last Taken Unknown] ziprasidone HCl 60 mg capsule (Geodon) 60 mg PO BID 07/21/23 [History Last Taken Unknown] Allergy/AdvReac Type Severity Reaction Status Date / Time haloperidol [From Haldol] Allergy Other Verified 12/26/23 21:19 haloperidol lactate Allergy Other Verified 12/26/23 21:19 [From Haldol] risperidone [From Risperdal] Allergy Other Verified 12/26/23 21:19 metformin AdvReac Intermediate Diarrhea Verified 12/26/23 21:19 aripiprazole [From Abilify] AdvReac Other Verified 12/26/23 21:19 Social History Smoking Status: Current every day smoker tobacco type: cigarettes ROS <Savanah Rasmussen RN - Last Filed: 12/26/23 23:06> ROS ED Constitutional Constitutional ED: Denies chills, fever(s), sweats or weight loss Eyes Eyes: Denies change in vision ENT ENT ED: Denies rhinorrhea or sore throat Cardiovascular Cardiovascular: Denies chest pain, orthopnea, palpitations or racing heartbeat Respiratory/Chest Respiratory/Chest: Reports cough; Denies dyspnea, dyspnea on exertion or orthopnea Gastrointestinal Gastrointestinal: Denies abdominal pain, diarrhea, nausea or vomiting Genitourinary Genitourinary ED: Denies dysuria, hematuria or urinary frequency Musculoskeletal Musculoskeletal: Denies arthralgias or myalgias Integumentary Reports other Details: Wound to right fuller Neurologic Neurologic: Denies headache(s), paresthesias or weakness Psychiatric Psychiatric: Denies anxiety or depression Endocrine Endocrinology: Denies polydipsia, polyphagia or polyuria Hematologic/Lymphatic Hematologic/Lymphatic: Denies easy bleeding or easy bruising EXAM <Savanah Rasmussen RN - Last Filed: 12/26/23 23:06> Physical Exam Narrative Exam Narrative: Patient awake, alert, cooperative Const Vital Signs: 12/26/23 21:09 12/26/23 22:48 Temperature 97.8 F Temperature Source Oral Pulse Rate 99 85 Respiratory Rate 18 16 Blood Pressure 128/66 H 126/71 H Blood Pressure Mean 86 89 Pulse Ox 96 97 Oxygen Delivery Method Room Air Room Air Positive well nourished and well developed General Appearance ED: well developed and NAD HEENT Reports moist mucous membranes Eyes PERRL Neck full ROM and supple Chest Wall inspection of chest normal and palpation of chest normal Resp normal respiratory effort and clear to auscultation bilaterally Auscultation: wheezes expiratory wheezes, left lower and right lower; Negative for rales or rhonchi Cardio regular rate, regular rhythm, S1 normal heart sound and S2 normal heart sound GI non-tender and non-distended Auscultation: normoactive bowel sounds Palpation: soft Extremity Extremity Narrative: Right lower leg with obvious deformity, mild erythema, 2 inch round yellow scabbed area. No drainage noted. General Extremety ED: Yes edema and weight-bearing difficulty General Extremity: edema and weight-bearing difficulty Neuro oriented x3 Sensorium / Orientation: alert Motor Exam: strength 5/5 throughout Psych mental status grossly normal Skin Skin Narrative: See above under extremity Image ED - Lower Extremity Diagram: 1. Deformity, erythema, yellow scabbed area no drainage <Dr. Quoc Germain MD - Last Filed: 12/26/23 23:03> Physical Exam Const Vital Signs: 12/26/23 21:09 12/26/23 22:48 Temperature 97.8 F Temperature Source Oral Pulse Rate 99 85 Respiratory Rate 18 16 Blood Pressure 128/66 H 126/71 H Blood Pressure Mean 86 89 Pulse Ox 96 97 Oxygen Delivery Method Room Air Room Air MDM <Savanah Rasmussen RN - Last Filed: 12/26/23 23:06> [facility] MDM Narrative Medical decision making narrative: Right tib/fib x-ray ordered to evaluate for fracture. Radiography Diagnostic Testing: Clinical Impression(s) from Imaging Studies Tibia/Fibula X-Ray 12/26/23 21:35 IMPRESSION: Displaced pathologic fractures of the distal tibia and mid fibular shaft which may be consistent with coexisting acute osteomyelitis Electronically Signed: Crow Fernando MD at 22:08 EDT Reading Location ID and State: [address] [place] [address] Tel , Service support , Differential Diagnosis Differential Diagnosis: Right tib/fib fracture Differential Diagnosis: Cellulitis Management Discussion w/another healthcare provider: Other (Dr. Germain, ED provider) Treatment and Re-Evaluation Narrative: Imaging reviewed. X-ray of the right tib/fib revealed displaced pathologic fractures of the distal tibia and mid fibular shaft with possible coexisting osteomyelitis. Right lower extremity posterior splint placed by Dr. Germain. Dr. Germain contacted [facility] for transfer as patient has had previous surgeries at that facility. Upon reevaluation, patient laying in bed awake and alert. Patient aware of plan for transfer to [facility]. Patient agreeable. <Dr. Quoc Germain MD - Last Filed: 12/26/23 23:03> [facility] MDM Narrative Medical decision making narrative: Right tib/fib x-ray ordered to evaluate for fracture. I have personally performed a face to face assessment of the patient and have reviewed the FLOR[facility]ITA Note. I performed a substantive portion of the visit including all aspects of the following. My carrera findings include: History is 43-year-old male has chronic right lower extremity injuries and prior orthopedic surgeries done in [facility] and possibly other [place] hospitals. States he had a fall 1 to 2 weeks ago possibly longer he cannot exactly member when. Never sought any evaluation that I am aware of. Family saw his leg tonight thought it looked deformed and more swollen and wanting to be evaluated. Patient does state that he has been drinking tonight and he smokes dope daily. Exam is [43-year-old male vital signs stable afebrile. No acute distress. H EENT exam unremarkable atraumatic. Lungs clear. Heart regular rhythm rate about 80 no murmur. Chest wall and ribs nontender. Abdomen soft nontender. Moving all 4 extremities. Neurovascular intact. His right lower leg mid to lower tib-fib has an obvious deformity. Prior scarring. It slightly warm to the touch. Significantly swollen. He has a normal DP pulse. He is able to wiggle his toes. He has normal touch sensation of the foot. He can do dorsi and plantarflexion of the foot. Can flex extend the knee and hip. The mid to distal third of the tibia is mildly tender. There appears to be a fluid collection. Neurologically is awake and alert with no focal motor deficits.] Medical Decision Making [43-year-old with a fall maybe 1 to 3 weeks ago. Unsure if he had any care at that time it was not done at this facility. He has had chronic right leg problems and had reportedly multiple surgeries with a prior flap. X-ray appears to be comminuted distal tibia fracture. Midshaft fibula fracture. Cannot rule out osteomyelitis. CAT scan has been done and results are pending. I have already spoken to [facility]. They will accept the patient in transfer. We are awaiting a call back whether he will go to the ER or another location in the hospital. Patient was placed in a short leg posterior splint. He has not requested or needed anything currently for pain.] Other additions or changes: [None] Radiography Diagnostic Testing: Clinical Impression(s) from Imaging Studies Tibia/Fibula X-Ray 12/26/23 21:35 IMPRESSION: Displaced pathologic fractures of the distal tibia and mid fibular shaft which may be consistent with coexisting acute osteomyelitis Electronically Signed: Crow Fernando MD at 22:08 EDT Reading Location ID and State: [address] [place] [address] Tel , Service support , Right tib-fib x-ray, 3 views interpreted by myself and the radiologist, shows a midshaft fibular fracture. Callus formation. Midshaft and distal 1/3 comminuted fibula fracture with calcifications. Soft tissue swelling. Suspect fluid collection. Rule out osteomyelitis. Procedures <Dr. Quoc Germain MD - Last Filed: 12/26/23 23:03> Lower Extremity Splints Lower Extremity Splint: Orthoglass Splint Fabrication: Fabricated Location: Right Discharge Plan Triage Chief Complaint: Lower Extremity Injury ED Provider: Quoc Germain Dx/Rx/DC Orders Clinical Impression: Localized soft tissue swelling, Displaced comminuted fracture of shaft of right tibia, Fall, Closed right fibular fracture Prescriptions: No Action albuterol sulfate [Ventolin HFA] 1 INHALER inhaler 1 - 2 puff inhalation Q4H PRN PRN (Reason: Shortness Of Breath) Qty: 1 0RF acetaminophen [Tylenol] 325 MG tablet 650 mg PO Q4H PRN PRN (Reason: Pain) pantoprazole 40 MG tablet 40 mg PO DAILY Hold Instructions: MD Ordered divalproex 500 MG tablet extended release 24 hr 1,000 mg PO BID Hold Instructions: MD Ordered aripiprazole [Abilify] 30 MG tablet 30 mg PO BID Hold Instructions: MD Ordered divalproex [Depakote] 500 mg tablet,delayed release (DR/EC) 500 mg PO BID levothyroxine [Euthyrox] 50 mcg tablet 50 mcg PO DAILY glimepiride 4 mg tablet 4 mg PO DAILY simvastatin [Zocor] 40 mg tablet 40 mg PO DAILY mirtazapine 15 mg tablet 15 mg PO DAILY ziprasidone HCl [Geodon] 60 mg capsule 60 mg PO BID Rx Instructions: give with food (meal/snack) lorazepam [Ativan] 2 mg tablet 2 mg PO BID Primary Care Provider: Crow Gill Referrals: Crow Gill MD [Primary Care Provider] - Disposition Disposition: Acute Care Hospital Discharge Location: [facility]
[2023-12-26 22:48] VITALS: BP 126/71; PULSE 85; RESP 16; O2SAT 97
[2023-12-26] MEDS: morphine 8 MG/ML Syringe 6 MG IV (23:51)
[2023-12-26] MEDS: Ondansetron 4 MG/2 ML Vial IV (23:52)
[2023-12-27] VITALS: PULSE 100; RESP 19; O2SAT 98
[2023-12-27 00:20] VITALS: BP 129/52; PULSE 88; RESP 16; TEMP 36.7; O2SAT 99
== END 2023-12-27 01:42 | disposition short-term general hospital (02) ==
PROVIDERS: Emergency Provider Emergency Medicine; PCP Family Medicine; Visit Provider Emergency Medicine
DX: S82.251A Displaced comminuted fracture of shaft of right tibia, initial encounter for closed fracture (principal); S82.401A Unspecified fracture of shaft of right fibula, initial encounter for closed fracture; W19.XXXA Unspecified fall, initial encounter; Y92.89 Other specified places as the place of occurrence of the external cause; E03.9 Hypothyroidism, unspecified; F17.210 Nicotine dependence, cigarettes, uncomplicated; Z79.899 Other long term (current) drug therapy
CPT/HCPCS: 29515; 73590; 73700; 99284; A4216; J2405

== ENCOUNTER 2024-01-23 19:08 | Emergency (ER) | payer MEDICARE, MEDICAID, SELFPAY ==
[2024-01-23 19:09] VITALS: BP 152/117; PULSE 73; RESP 15; TEMP 36.4; O2SAT 100; BMI 37.3
--- NOTE | 2024-01-23 19:18 | EX.ED.VIS.PS ---
HPI HPI - Psych History of Present Illness Chief Complaint: Mental Health [facility] Medical History Hypothyroidism Mental health disorder Schizophrenia Home Medications albuterol sulfate 90 mcg/actuation aerosol inhaler (Ventolin HFA) 1 - 2 puff inhalation Q4H PRN PRN Shortness Of Breath ##1 04/06/16 [Rx Last Taken Unknown] aripiprazole 30 mg tablet (Abilify) 30 mg PO BID 03/01/17 [History Last Taken Unknown] pantoprazole 40 mg tablet,delayed release 40 mg PO DAILY 03/01/17 [History Last Taken Unknown] divalproex 500 mg tablet,delayed release (Depakote) 500 mg PO BID 07/21/23 [History Last Taken Unknown] levothyroxine 50 mcg tablet (Euthyrox) 50 mcg PO DAILY 07/21/23 [History Last Taken Unknown] lorazepam 2 mg tablet (Ativan) 2 mg PO BID 07/21/23 [History Last Taken Unknown] simvastatin 40 mg tablet (Zocor) 40 mg PO DAILY 07/21/23 [History Last Taken Unknown] ziprasidone HCl 60 mg capsule (Geodon) 60 mg PO BID 07/21/23 [History Last Taken Unknown] Allergy/AdvReac Type Severity Reaction Status Date / Time haloperidol [From Haldol] Allergy Other Verified 01/23/24 19:16 haloperidol lactate Allergy Other Verified 01/23/24 19:16 [From Haldol] risperidone [From Risperdal] Allergy Other Verified 01/23/24 19:16 metformin AdvReac Intermediate Diarrhea Verified 01/23/24 19:16 aripiprazole [From Abilify] AdvReac Other Verified 01/23/24 19:16 Social History Smoking Status: Current every day smoker tobacco type: cigarettes EXAM Physical Exam Const Vital Signs: 01/23/24 19:09 01/23/24 20:27 01/23/24 21:00 Temperature 97.6 F L Temperature Source Temporal Pulse Rate 73 78 65 Respiratory Rate 15 20 H 19 H Blood Pressure 152/117 H 146/88 H 106/63 Blood Pressure Mean 128 107 77 Pulse Ox 100 94 95 Oxygen Delivery Method Room Air Room Air Room Air MDM MDM MDM Narrative Medical decision making narrative: HISTORY OF PRESENT ILLNESS: 43-year-old male presents with abnormal behavior. Patient is rambling, having tangential thoughts, making incoherent comments. REVIEW OF SYSTEMS: Unable to obtain review of systems secondary to decompensated mental health condition PHYSICAL EXAM: Nursing triage notes reviewed, Vital signs reviewed Constitutional: please see mdm HENT: MMM Eyes: Pupils equal round and reactive to light, Extraocular muscles intact Neck: No stridor, no JVD, full neck ROM Lungs: Clear to auscultation, No wheezing or rales. No increased work of breathing, no conversational dyspnea, no accessory muscle use, no nasal flaring. No respiratory distress noted Heart: Regular rate and rhythm, No murmurs, No rubs and No gallops, 2+ distal pulses (radial, femoral, posterior tibial) in all extremities Abdomen: Soft, there is no tenderness, rigidity, rebound or guarding, no obvious peritoneal signs, no palpable pulsatile abdominal masses, no auscultated abdominal bruit : No CVAT Extremities: No edema Neuro: No focal neurological deficits, cranial nerves II through XII intact, 5/5 strength in all extremities. Intact sensation to light touch in all extremities, 2+ reflexes bilateral patella tendons. Normal gait. No ataxia. Skin: chronic appearing changes noted to the right lower extremity Psych: Angry affect, tangential thoughts, responding to internal stimuli MEDICAL DECISION MAKING: Chief Complaint: Mental health evaluation External records reviewed: Patient was admitted to inpatient psychiatric unit in July 2023 Factors affecting care: History of schizophrenia Abilify Social determinants of health: History mental health disorder History obtained from others: none Consults: none [facility] Narrative: Patient was hemodynamically stable, afebrile and nontoxic-appearing. Patient became very agitated, violent, lunging at staff. He required immediate treatment of his agitation. I chose 4 mg/kg IM ketamine as well as 2 mg of IM Ativan. Agitation was improved. Medical clearance labs were obtained and crisis was consulted. After sedation patient was kept on the monitor monitor for signs of hypoxia, laryngospasm or other side effects . Medical clearance labs were reviewed: CBC with leukocytosis suggestive of systemic inflammation likely reactive, no anemia thrombocytopenia BMP without evidence of significant electrolyte abnormalities, no anion gap, no acute kidney injury. Urine tox screen positive for cannabinoids Serum alcohol negative patient is pending crisis evaluation and possible placement. He remained hemodynamically stable and not hypoxic or having evidence of laryngospasm after sedation with ketamine and Ativan. Patient was turned over to night physician pending crisis evaluation and possible placement. [place] slipped The patient and/or family, caregivers express understanding. The patient and/or family, caregivers agrees with the plan. Shared decision making: I will have a discussion with the patient and or visitors regarding risk/benefits of further testing or admission. They will be made aware of of the risk/benefits inherent in this decision they will be given the opportunity to voice understanding. Total critical care time today provided was at least 0 minutes. This excludes separately billable procedures. Critical care time (if documented) is secondary to the patient having high probability of clinically significant/life threatening deterioration in the patient's condition which required my urgent intervention. Impression: 1. Decompensated schizophrenia 2. Psychosis Dispo: Pending medical clearance, crisis evaluation and final disposition This note was generated with [employer] dictation software. It may contain incorrect words, spelling, and punctuation that were not noted in review of the chart prior to signing. Lab Data Labs: Laboratory Results - last 24 hr 01/23/24 20:20 WBC 11.9 H RBC 5.27 Hgb 14.9 Hct 44.0 MCV 83.5 MCH 28.3 MCHC 33.9 RDW Std Deviation 42.1 RDW Coeff of Shruti 13.7 Plt Count 272 MPV 9.9 Immature Gran % (Auto) 0.400 Neut % (Auto) 57.9 Lymph % (Auto) 32.9 [place] % (Auto) 5.9 Eos % (Auto) 2.5 Baso % (Auto) 0.4 Absolute Neuts (auto) 6.9 Absolute Lymphs (auto) 3.91 Nucleated RBC % 0 Sodium 138 Potassium 4.2 Chloride 104 Carbon Dioxide 30.0 Anion Gap 4 L BUN 18 Creatinine 0.89 Estim Creat Clear Calc 128.30 Est GFR (MDRD) Af Amer 119 Est GFR (MDRD) Non-Af 98 BUN/Creatinine Ratio 20.2 H Glucose 138 H Calcium 10.0 Urine Opiates Screen NEGATIVE Urine Methadone Screen NEGATIVE Ur Barbiturates Screen NEGATIVE Ur Phencyclidine Scrn NEGATIVE Ur Amphetamines Screen NEGATIVE MDMA (Ecstasy) Screen NEGATIVE U Benzodiazepines Scrn NEGATIVE Urine Cocaine Screen NEGATIVE U Cannabinoids Screen POSITIVE H Ur Drug Screen Comment Ethyl Alcohol < 3.0 Discharge Plan Triage Chief Complaint: Mental Health ED Provider: Ajith Mendez Dx/Rx/DC Orders Prescriptions: No Action albuterol sulfate [Ventolin HFA] 1 INHALER inhaler 1 - 2 puff inhalation Q4H PRN PRN (Reason: Shortness Of Breath) Qty: 1 0RF pantoprazole 40 MG tablet 40 mg PO DAILY Hold Instructions: MD Ordered aripiprazole [Abilify] 30 MG tablet 30 mg PO BID Hold Instructions: MD Ordered divalproex [Depakote] 500 mg tablet,delayed release (DR/EC) 500 mg PO BID levothyroxine [Euthyrox] 50 mcg tablet 50 mcg PO DAILY simvastatin [Zocor] 40 mg tablet 40 mg PO DAILY ziprasidone HCl [Geodon] 60 mg capsule 60 mg PO BID Rx Instructions: give with food (meal/snack) lorazepam [Ativan] 2 mg tablet 2 mg PO BID Primary Care Provider: Crow Gill Referrals: Crow Gill MD [Primary Care Provider] -
[2024-01-23] MEDS: Ketamine HCl 500 MG/5 ML Vial 444 MG IM (19:43)
[2024-01-23] MEDS: LORazepam 2 MG/ML Syringe IM (19:57)
[2024-01-23 20:27] VITALS: BP 146/88; PULSE 78; RESP 20; O2SAT 94
[2024-01-23 20:29] LABS: Absolute Lymphocyte Count 3.91 X10^3/uL (0.83-4.51); Absolute Neutrophil Count 6.9 X10^3/uL (2.0-7.7); Basophil# 0.05 X10^3/uL; Basophil% 0.4 % (0-1); Eosinophils% 2.5 % (0-5); Hemoglobin 14.9 g/dL (13.0-16.5); Lymphocyte # 3.91 X10^3/ul (0.83-4.51); Lymphocyte % 32.9 % (19-41); Mean Corp Hgb Conc 33.9 g/dL (32-36); Mean Corpuscular Hgb 28.3 pg (27.0-32.0); Mean Corpuscular Volume 83.5 fL (80-94); Mean Platelet Vol. 9.9 fl (6.2-12.0); Monocyte% 5.9 % (0-10); NRBC Flagged by Analyzer 0 % (0-5); Neutrophil # 6.87 X10^3/uL (2.7-7.7); Neutrophil % 57.9 % (47-70); Platelet Count 272 K/mm3 (150-450); RBC Distribution Width CV 13.7 % (11.6-14.6); RBC Distribution Width SD 42.1 fl (35.1-43.9); Red Blood Count 5.27 M/mm3 (4.6-6.2); White Blood Count 11.9 K/mm3 (4.4-11.0)
[2024-01-23 20:41] LABS: Alcohol, Blood (Medical)-Serum < 3.0 mg/dL
[2024-01-23 20:43] LABS: Anion Gap 4 (5-15); BUN 18 mg/dL (7-18); BUN/Creat Ratio 20.2 RATIO (10-20); Chloride 104 mmol/L (98-107); Creatinine, Serum 0.89 mg/dL (0.70-1.30); EST Glomerular Filtration Rate 98 mL/min (>60); Est Glom Filt Rate - Afr Amer 119 mL/min (>60); Glucose 138 mg/dL (74-106); Potassium 4.2 mmol/L (3.5-5.1); Sodium Level 138 mmol/L (136-145)
[2024-01-23 20:44] LABS: Amphetamine Urine VISTA NEGATIVE (<1000 ng/mL); Barbiturate Urine VISTA NEGATIVE (< 200 ng/mL); Benzodiazepine Urine VISTA NEGATIVE (< 200 ng/mL); Cocaine Urine VISTA NEGATIVE (< 300 ng/mL); Ecstacy Urine VISTA NEGATIVE (< 500 ng/mL); Methadone Urine VISTA NEGATIVE (< 300 ng/mL); PCP Urine VISTA NEGATIVE (< 25 ng/mL); THC Urine VISTA POSITIVE (< 50 ng/mL); Vista UDS pH Range 4
[2024-01-23 21:00] VITALS: BP 106/63; PULSE 65; RESP 19; O2SAT 95
[2024-01-23 22:00] VITALS: BP 105/70; PULSE 62; RESP 16; O2SAT 99
[2024-01-23 23:00] VITALS: BP 118/70; PULSE 61; RESP 19; O2SAT 96
[2024-01-24] VITALS (7 sets, daily range): BP systolic 112–155; BP diastolic 75–94; PULSE 60–84; RESP 14–21; TEMP 36–36.9; O2SAT 96–99
[2024-01-24] MEDS: Ibuprofen 600 MG Tablet PO (04:30)
--- NOTE | 2024-01-24 06:57 | ED.RN ---
Denice Acosta called @0628, spoke w pt rn, said to call back. Pam Acosta called back @ 0641 called to state that pt is being denied due to medical condition and high wbc count.
--- NOTE | 2024-01-24 07:44 | ED.RN ---
spoke with Antonio from [facility]. Antonio stated she needed to speak with her provider. will call back regarding acceptance.
[2024-01-24] MEDS: Oxycodone/Apap 5/325 Tablet PO (10:57)
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
[2024-01-24] MEDS: Nicotine Polacrilex 2 MG GUM PO ×2 (11:39→14:42)
[2024-01-24] MEDS: LORazepam 1 MG Tablet 2 MG PO (13:56)
--- NOTE | 2024-01-24 14:02 | ED.RN ---
PT ACCEPTED AT [facility] [address] [facility] N[address]N [id number] SQUAD ETA 1500
== END 2024-01-24 14:51 ==
PROVIDERS: Emergency Provider Emergency Medicine; PCP Family Medicine; Visit Provider Emergency Medicine
DX: F20.9 Schizophrenia, unspecified (principal); F17.210 Nicotine dependence, cigarettes, uncomplicated
CPT/HCPCS: 80048; 80307; 80320; 85025; 96372; 99284; A4216; G0480

== ENCOUNTER 2024-06-28 14:01 | Emergency (ER) | payer MEDICARE, MEDICAID, SELFPAY ==
[2024-06-28] VITALS (46 sets, daily range): BP systolic 100–208; BP diastolic 61–182; PULSE 58–109; RESP 15–49; TEMP 36.2; O2SAT 87–100; BMI 37.7
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
[2024-06-28] MEDS: LORazepam 2 MG/ML Syringe IM (14:18)
[2024-06-28] MEDS: Ziprasidone IM 20 MG/ML VIAL IM (14:32)
[2024-06-28 14:52] LABS: Absolute Lymphocyte Count 3.05 X10^3/uL (0.83-4.51); Absolute Neutrophil Count 5.9 X10^3/uL (2.0-7.7); Basophil# 0.04 X10^3/uL; Basophil% 0.4 % (0-1); Eosinophil# 0.24 X10^3/uL; Eosinophils% 2.4 % (0-5); Hematocrit 44.9 % (40-54); Hemoglobin 14.8 g/dL (13.0-16.5); Lymphocyte # 3.05 X10^3/ul (0.83-4.51); Lymphocyte % 30.3 % (19-41); Mean Corpuscular Hgb 27.8 pg (27.0-32.0); Mean Corpuscular Volume 84.4 fL (80-94); Mean Platelet Vol. 10.3 fl (6.2-12.0); Monocyte% 7.9 % (0-10); NRBC Flagged by Analyzer 0 % (0-5); Neutrophil # 5.89 X10^3/uL (2.7-7.7); Neutrophil % 58.4 % (47-70); Platelet Count 267 K/mm3 (150-450); RBC Distribution Width CV 13.2 % (11.6-14.6); RBC Distribution Width SD 40.6 fl (35.1-43.9); Red Blood Count 5.32 M/mm3 (4.6-6.2); White Blood Count 10.1 K/mm3 (4.4-11.0)
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
[2024-06-28 15:08] LABS: Alcohol, Blood (Medical)-Serum < 3.0 mg/dL
[2024-06-28 15:10] LABS: Anion Gap 9 (5-15); BUN 19 mg/dL (7-18); BUN/Creat Ratio 21.9 RATIO (10-20); Calcium,Total 9.9 mg/dL (8.5-10.1); Chloride 104 mmol/L (98-107); Creatinine, Serum 0.87 mg/dL (0.70-1.30); EST Glomerular Filtration Rate 101 mL/min (>60); Est Glom Filt Rate - Afr Amer 122 mL/min (>60); Glucose 126 mg/dL (74-106); Potassium 3.8 mmol/L (3.5-5.1); Sodium Level 140 mmol/L (136-145)
[2024-06-28] MEDS: DiphenhydrAMINE 50 MG/ML Syringe IM (15:11)
[2024-06-28] MEDS: Midazolam 2 MG/2 ML Syringe IV ×2 (15:15→20:53)
[2024-06-28] MEDS: Haloperidol Lactate 5 MG/ML Vial IM (15:15)
--- NOTE | 2024-06-28 16:12 | EDS_ITS ---
HPI History of Present Illness Chief Complaint: Mental Health Narrative Narrative: Patient is a 43-year-old male with past medical history of schizophrenia, hypothyroidism who presented to the Emergency Department via police after being in the [facility]dc and evaluated by crisis. History of present illness was unobtainable from the patient as he was actively psychotic. Verbal de- escalation was attempted however this was unsuccessful therefore chemical sedation was pursued. The patient has been highly agitated erratic and yelling. He has had tangential speech with loose associations. Patient is delusional and likely has auditory hallucinations due to responding to internal stimuli. Has not been taking his medications. [facility] Medical History Displaced comminuted fracture of shaft of right tibia Closed right fibular fracture Hypothyroidism Schizophrenia Mental health disorder Home Medications ?Medication ?Instructions ?Recorded ?Last Taken ?Type aripiprazole 30 mg tablet (Abilify) 30 mg PO BID 03/01/17 Unknown History divalproex 500 mg tablet,delayed 500 mg PO BID 07/21/23 Unknown History release (Depakote) levothyroxine 50 mcg tablet 50 mcg PO DAILY 07/21/23 Unknown History (Euthyrox) gabapentin 300 mg capsule 300 mg PO TID 02/17/24 Unknown History Allergy/AdvReac Type Severity Reaction Status Date / Time haloperidol (From Haldol) Allergy Other Verified 01/24/24 13:15 haloperidol lactate (From Allergy Other Verified 01/24/24 13:15 Haldol) risperidone (From Risperdal) Allergy Other Verified 01/24/24 13:15 metformin AdvReac Intermediate Diarrhea Verified 01/24/24 13:15 aripiprazole (From Abilify) AdvReac Other Verified 01/24/24 13:15 Social History Smoking Status: Current every day smoker tobacco type: cigarettes ROS ROS ED ROS Narrative Review of systems was unobtainable from the patient secondary to his active psychosis EXAM Physical Exam Narrative Exam Narrative: General: Patient was agitated and responding to internal stimuli Head: Atraumatic, normocephalic Eyes: PERRL bilateral, EOMI bilateral, no conjunctival injection noted Neck: Soft, supple, trach midline Cardiovascular: Regular rate and rhythm no murmurs gallops rubs noted Respiratory: Clear to auscultation bilaterally no rales rhonchi wheeze noted Abdomen: Soft, nondistended, nontender to palpation bowel sounds present for Extremities: +5/5 strength noted in the bilateral lower extremities, no pedal edema no exam Psychiatric: Patient is responding to internal stimuli was very agitated Skin: Warm, dry, intact Const Vital Signs: 06/28/24 14:02 06/28/24 15:01 Temperature 97.2 F L Temperature Source Temporal Pulse Rate 83 Respiratory Rate 18 Blood Pressure 116/104 H Blood Pressure Mean 108 Pulse Ox 98 Oxygen Delivery Method Room Air MDM MDM MDM Narrative Medical decision making narrative: Patient is a 43-year-old male who presented to the emergency department via police with a chief complaint of active psychosis and responding to internal stimuli. On the differential diagnose includes Melamin to schizophrenia, bipolar disorder, medication noncompliance. Once workup is obtained reviewed he will be reevaluated. Once again the patient was extremely agitated upon his arrival here therefore 2 mg of intramuscular Ativan were given after attempted verbal de-escalation not working. The patient continued to be agitated therefore he was given 20 mg of Geodon. Later on the patient started to hit his head against the wall and was threatening to staff therefore he was given Benadryl 50 mg as well as more Ativan and Haldol. Patient was placed in physical restraints as well. Patient will be pink slipped here in the hospital and will need to be evaluated by the crisis/social work team for placement. Patient's case will be signed out to oncoming provider see their note for ultimate disposition details. Lab Data Labs: Laboratory Results - last 24 hr 06/28/24 14:45 WBC 10.1 RBC 5.32 Hgb 14.8 Hct 44.9 MCV 84.4 MCH 27.8 MCHC 33.0 RDW Std Deviation 40.6 RDW Coeff of Shruti 13.2 Plt Count 267 MPV 10.3 Immature Gran % (Auto) 0.600 Neut % (Auto) 58.4 Lymph % (Auto) 30.3 Hardee % (Auto) 7.9 Eos % (Auto) 2.4 Baso % (Auto) 0.4 Absolute Neuts (auto) 5.9 Absolute Lymphs (auto) 3.05 Nucleated RBC % 0 Sodium 140 Potassium 3.8 Chloride 104 Carbon Dioxide 27.0 Anion Gap 9 BUN 19 H Creatinine 0.87 Est GFR (MDRD) Af Amer 122 Est GFR (MDRD) Non-Af 101 BUN/Creatinine Ratio 21.9 H Glucose 126 H Calcium 9.9 Urine Opiates Screen Cancelled Urine Methadone Screen Cancelled Ur Barbiturates Screen Cancelled Ur Phencyclidine Scrn Cancelled Ur Amphetamines Screen Cancelled MDMA (Ecstasy) Screen Cancelled U Benzodiazepines Scrn Cancelled Urine Cocaine Screen Cancelled U Cannabinoids Screen Cancelled Ur Drug Screen Comment Cancelled Ethyl Alcohol < 3.0 Discharge Plan Triage Chief Complaint: Mental Health ED Provider: Saurav Emery Dx/Rx/DC Orders Clinical Impression: Acute psychosis, Schizophrenia Prescriptions: No Action gabapentin 300 mg capsule 300 mg PO TID aripiprazole [Abilify] 30 MG tablet 30 mg PO BID divalproex [Depakote] 500 mg tablet,delayed release (DR/EC) 500 mg PO BID levothyroxine [Euthyrox] 50 mcg tablet 50 mcg PO DAILY Primary Care Provider: Crow Gill Referrals: Crow Gill MD [Primary Care Provider] - Print Language: Albanian
[2024-06-28] MEDS: Midazolam 2 MG/2 ML Syringe IM (18:01)
[2024-06-28 18:14] LABS: Amphetamine Urine VISTA NEGATIVE (<1000 ng/mL); Barbiturate Urine VISTA NEGATIVE (< 200 ng/mL); Benzodiazepine Urine VISTA POSITIVE (< 200 ng/mL); Cocaine Urine VISTA NEGATIVE (< 300 ng/mL); Ecstacy Urine VISTA NEGATIVE (< 500 ng/mL); Methadone Urine VISTA NEGATIVE (< 300 ng/mL); PCP Urine VISTA NEGATIVE (< 25 ng/mL); THC Urine VISTA POSITIVE (< 50 ng/mL)
[2024-06-28 18:15] LABS: Vista UDS pH Range 6
--- NOTE | 2024-06-28 18:51 | ED.RN ---
FAXED RESULTS TO CRISIS
--- NOTE | 2024-06-28 21:05 | ED.RN ---
pt wa medicated with versed,pt continues to scream,cuss and pull on restraints.
--- NOTE | 2024-06-28 22:03 | ED.RN ---
pt presently sleeping, leather restraints removed.sitter at the bedside,will monitor.
--- NOTE | 2024-06-28 23:24 | EKG12_ITS ---
Test Reason : [facility] Blood Pressure : / mmHG Vent. Rate : 070 BPM Atrial Rate : 070 BPM P-R Int : 176 ms QRS Dur : 076 ms QT Int : 416 ms P-R-T Axes : 067 056 038 degrees QTc Int : 449 ms Normal sinus rhythm Septal infarct , age undetermined Abnormal ECG Confirmed by KYLE MCKENNA, MARYA ([id number]), manuscript editor SARATH SHAH ([id number]) on 06/29/2024 8:53:10 AM Referred By: Confirmed By:MARYA WRIGHT MD
[2024-06-28 23:51] LABS: AST(SGOT) 30 U/L (15-37); Alanine Aminotransfer ALT/SGPT 38 U/L (16-61); Albumin, Serum 3.9 g/dL (3.2-5.0); Alkaline Phosphatase 125 U/L (45-117); Bilirubin, Direct 0.21 mg/dL (0.00-0.30); Globulin 3.6 g/dL (2.2-4.2); Protein, Total 7.5 g/dL (6.4-8.2)
[2024-06-29] VITALS (33 sets, daily range): BP systolic 102–161; BP diastolic 62–96; PULSE 68–97; RESP 14–30; TEMP 36.6–37.2; O2SAT 72–100
[2024-06-29] MEDS: Midazolam 2 MG/2 ML Syringe 4 MG IM (03:14)
--- NOTE | 2024-06-29 03:46 | ED.RN ---
[facility] CALLED AND NOTIFIED THIS NURSE THAT THEY WERE WORKING ON ACCEPTANCE.
--- NOTE | 2024-06-29 03:55 | ED.RN ---
PRIOR TO 313, VERSED PULLED DUE TO PATIENT AGITATION AND YELLING, GIVEN BY Radames GARCIA. DUE TO PATIENT SAFETY, POLICE AT BEDSIDE.
--- NOTE | 2024-06-29 04:38 | ED.RN ---
0415 per Luke francois they have denied accepting the pt,but we can re-submit clinical package with updated assessment. fax data : [phone] in 4 hours to be re-evaluated and reconsider for placement.
--- NOTE | 2024-06-29 06:27 | ED.RN ---
PENDING GENERATIONS, AMIRA SANZ.
[2024-06-29] MEDS: Divalproex Sodium 250 MG Tablet 500 MG PO (07:49)
[2024-06-29] MEDS: Ziprasidone HCl 20 MG Capsule 40 MG PO (07:49)
[2024-06-29] MEDS: Levothyroxine 50 MCG Tablet PO (07:49)
[2024-06-29 08:02] LABS: Valproic Acid (Depakene) Level < 3 ug/mL (50-100)
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
[2024-06-29] MEDS: Haloperidol Lactate 5 MG/ML Vial IM ×2 (08:22→14:20)
[2024-06-29] MEDS: Midazolam 2 MG/2 ML Syringe IM (08:23)
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
[2024-06-29] MEDS: Haloperidol 1 MG Tablet 2 MG PO (13:57)
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
--- NOTE | 2024-06-29 14:39 | ED.RN ---
4 point restraints placed at [id number]
[2024-06-29] MEDS: DiphenhydrAMINE 50 MG/ML Syringe IM (14:43)
[2024-06-29] MEDS: LORazepam 2 MG/ML Syringe IM (14:43)
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
== END 2024-06-29 15:00 ==
PROVIDERS: Emergency Medicine; Emergency Provider Emergency Medicine; PCP Family Medicine; Visit Provider Emergency Medicine
DX: F23 Brief psychotic disorder (principal); R45.6 Violent behavior; F17.210 Nicotine dependence, cigarettes, uncomplicated; Z79.899 Other long term (current) drug therapy
CPT/HCPCS: 80048; 80076; 80164; 80307; 82077; 85025; 93005; 96372; 96374; 96376; 99283; J3486

== ENCOUNTER → 2025-04-28 | Outpatient (REF) | payer MEDICARE, SELFPAY ==
[2025-04-28 09:02] LABS: Valproic Acid (Depakene) Level 31 ug/mL (50-100)
== END ==
LOC: OLS.SW 05:00
PROVIDERS: PCP Family Medicine; Visit Provider Family Medicine
DX: F20.9 Schizophrenia, unspecified (principal); F31.9 Bipolar disorder, unspecified
CPT/HCPCS: 36415; 80164

== ENCOUNTER → 2025-05-17 05:00 | Outpatient (REF) | payer MEDICARE, SELFPAY ==
[2025-05-17 09:33] LABS: Vitamin D,25 Hydroxy 49.4 ng/mL (30-100)
== END ==
LOC: OLS.SW 05:00
PROVIDERS: PCP Family Medicine; Visit Provider Family Medicine
DX: Z79.899 Other long term (current) drug therapy (principal)
CPT/HCPCS: 36415; 82306

== ENCOUNTER → 2025-06-07 | Outpatient (REF) | payer MEDICARE, SELFPAY | LOC: OLS.SW 07:30 | PROVIDERS: PCP Family Medicine; Visit Provider Family Medicine | DX: E11.9 Type 2 diabetes mellitus without complications (principal) | CPT/HCPCS: 36415; 83036 ==

== ENCOUNTER 2025-06-13 18:07 | Emergency (ER) | payer MEDICARE, MEDICAID, SELFPAY ==
[2025-06-13 18:08] VITALS: BP 140/80; PULSE 92; RESP 18; TEMP 36.1; O2SAT 97
[2025-06-13 19:00] VITALS: BP 129/69; PULSE 87; RESP 18; O2SAT 97; BMI 43.7
[2025-06-13 19:25] VITALS: O2SAT 99
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
--- NOTE | 2025-06-13 20:24 | ED.RN ---
This RN gave an update to Shahida, the patient's nurse at [facility], at this time.
[2025-06-13 21:00] VITALS: BP 124/66; PULSE 87; RESP 18; TEMP 36.6; O2SAT 97
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
== END 2025-06-13 21:16 | disposition home or self-care (01) ==
PROVIDERS: Emergency Provider Emergency Medicine; Visit Provider Emergency Medicine
DX: S20.211A Contusion of right front wall of thorax, initial encounter (principal); Z89.511 Acquired absence of right leg below knee; F20.9 Schizophrenia, unspecified; S39.012A Strain of muscle, fascia and tendon of lower back, initial encounter; V43.62XA Car passenger injured in collision with other type car in traffic accident, initial encounter; E03.9 Hypothyroidism, unspecified; E66.9 Obesity, unspecified; F17.210 Nicotine dependence, cigarettes, uncomplicated; Z79.890 Hormone replacement therapy; Z79.899 Other long term (current) drug therapy
CPT/HCPCS: 71101; 99284

== ENCOUNTER → 2025-07-07 05:00 | Outpatient (REF) | payer MEDICARE, SELFPAY ==
[2025-07-07 10:07] LABS: Hematocrit 43.8 % (40-54); Hemoglobin 14.8 g/dL (13.0-16.5); Mean Corp Hgb Conc 33.8 g/dL (32-36); Mean Corpuscular Volume 86.2 fL (80-94); Mean Platelet Vol. 9.9 fl (6.2-12.0); Platelet Count 199 K/mm3 (150-450); RBC Distribution Width CV 14.8 % (11.6-14.6); RBC Distribution Width SD 46.6 fl (35.1-43.9); Red Blood Count 5.08 M/mm3 (4.6-6.2); White Blood Count 6.8 K/mm3 (4.4-11.0)
[2025-07-07 10:22] LABS: Valproic Acid (Depakene) Level 39 ug/mL (50-100)
[2025-07-07 11:05] LABS: Anion Gap 11 (5-15); BUN 15 mg/dL (4-19); BUN/Creat Ratio 17.3 RATIO (10-20); Calcium,Total 9.0 mg/dL (7.6-11.0); Carbon Dioxide 24.6 mmol/L (21.0-32.0); Chloride 104 mmol/L (98-108); Glucose 127 mg/dL (70-99); Potassium 3.9 mmol/L (3.3-5.1)
== END ==
LOC: OLS.SW 05:00
PROVIDERS: Visit Provider Family Medicine
DX: E11.9 Type 2 diabetes mellitus without complications (principal); I82.409 Acute embolism and thrombosis of unspecified deep veins of unspecified lower extremity; E78.5 Hyperlipidemia, unspecified
CPT/HCPCS: 36415; 80048; 80164; 85027

== ENCOUNTER → 2025-08-09 05:00 | Outpatient (REF) | payer MEDICARE, SELFPAY ==
--- OUTSIDE RECORDS SUMMARY | 2025-08-09 04:20 | XMS RPT_ITS | CCD ---
Author Organization [facility] Care Team Providers Care Cooker Helper Name Role Phone KARYN WEBB Unavailable Unavailable ADA TREVINO Unavailable Unavailable Crow Matute Unavailable Unavailable UTNG SLOAN Unavailable Unavailable KARYN LARSON Unavailable Unavailable NICO BENAVIDES Unavailable Unavailable NIALL LARSON Unavailable Unavailable VERONIKAMARYTUNG Unavailable Unavailable NICO BENAVIDES Unavailable Unavailable IMCA Unavailable Unavailable Crow Matute Unavailable Unavailable NIALL LARSON R Unavailable Unavailable Crow Matute RBrenda Unavailable Unavailable NICO BENAVIDES Unavailable Unavailable IMCA Unavailable Unavailable Crow Matute Unavailable Unavailable NIALL LARSON R Unavailable Unavailable Crow Matute RBrenda Unavailable Unavailable IMCA Unavailable Unavailable Crow Matute RBrenda Unavailable Unavailable NIALL LARSON R Unavailable Unavailable Crow Matute Unavailable Unavailable NICO BENAVIDES Unavailable Unavailable IMCA Unavailable Unavailable Crow Matute Unavailable Unavailable NIALL LARSON R Unavailable Unavailable Crow Matute Unavailable Unavailable King Matute MD Primary Care Provider King Matute MD Primary Care Provider KING MATUTE MD Primary Care Physicia n KING MATUTE Primary Care Unavailable TON DWYER Referring Unavailable Unavailable Primary Care Provider UnavailKing Madsen MD Primary Care Provider EDENILSON MACHADO Attending Unavailab EDENILSON Macdonald Consulting Unavailab le TOWNSEND BAYRON, EDENILSON Admitting Unavailab sarah NO, PHYSICIAN Primary Care Unavailable ERINN GASPAR Consulting Unavailable ANSELMO CAAL Attending Unavailable ANSELMO CAAL Consulting Unavailable ANSELMO CAAL Admitting Unavailable KING MATUTE Primary Care Unavailable VESTA RICHARD Referring Unavailable No Family, Physician Primary Care Unavailable No Family, Physician Primary Care Unavailable Unavailable Primary Care Provider Unavaildale BURKS DO, DR ELIAN Bautista Attending Unavailable JUJU MCKENNA, [facility] Unava ilronel GUTIERREZ DO, HITESH Attending Unavailable JUJU MCKENNA, [facility] Unava ilable HAILEY MCKENNA, CARLIE Laird Attending Unavail ronel MATUTE MD, [facility] Unava ilronel MATUTE MD, [facility] Unava ilronel SALCEDO MD, AUDREY Attending Unavailable AALIYAH MCKENNA, MICHA Consulting Unavailable ARSLAN MCKENNA, DR SILVERIO Attending Unavailabl eitan MATUTE MD, [facility] Unava ilable HAILEY MCKENNA, CARLIE Laird Attending Unavail ronel MATUTE MD, [facility] Unava ilronel MATUTE MD, [facility] Unava ilable WILBER JEAN MD Attending Unavailable JUJU MCKENNA, [facility] Unava ilable REMEDIOS MCKENNA, DR LAKHWINDER Rosado Admitting Unavailable URIAH MCKENNA, JESUS Laird Attending Unavailashlee GARZA MD, KJ Consulting Unavailable SUHAS MCKENNA, DR LISA Ospina Consulting Unavaildale RUFFIN MD, DR KAYLA ALBERTO Consulting Unavaila jorden MATUTE MD, [facility] Unava ilSCOTTY Johnson MD Admitting Unavailable KENNY BLACKWELL MD Attending Unavailable AMANUEL FELIX MD Consulting Unavailable ABENA MCKENNA, TROY Consulting Unavailable LIVIER MCKENNA, DR GASTON Mallory Consulting Unavai devin BURKS DO, DR ELIAN Bautista Attending Unavailable JUJU MCKENNA, [facility] Unava ilronel BURKS DO, DR ELIAN Bautista Attending Unavailable JUJU MCKENNA, [facility] Unava ilronel Jones MD, Hilary Gaspar Attending Unava ilronel Morgan APRN-HARIKA, Ligia Royal Consulting Un available KING MATUTE Attending Unavailable KING MATUTE Primary Care Unavailable MARKELLETLA CAT Attending Un available NO, PHYSICIAN Primary Care Unavailable CARLEEN, PATTI Admitting Unavailable CARLEEN, PATTI Attending Unavailable CARLEEN, PATTI Referring Unavailable SCALERA, RAFAEL Consulting Unavailable CARLEEN, PATTI Attending Unavailable CARLEEN, PATTI Admitting Unavailable CARLEEN, PATTI Attending Unavailable CARLEEN, PATTI Attending Unavailable CARLEEN, PATTI Attending Unavailable CARLEEN, PATTI Attending Unavailable KAEHLER, NANCY Attending Unavailable KAEHLER, NANCY Referring Unavailable Juju MCKENNA, Dr. Maria Primary Care Provider [phone] Jordin MCKENNA, Dr. Mak Attending Provider Unavail able Lizette MCKENNA, Dr. Montalvo Emergency Provider Jordin ALVAREZ, Dr. Mak Primary Care Provider [phone] Juju, Crow Primary Care Unavailable Bandar Porras Attending Unavailable Juju, Crow Primary Care Unavailable Bandar Porras Attending Unavailable Jordin WRIGHT, Bandar Attending Unavailable Juju, [place] Primary Care Unavailable Selvin Bauer Attending Unavailable Bandar Brenner Primary Care Unavailable Juju, [place] Primary Care Unavailable Jordin WRIGHT, Bandar Attending Unavailable Juju, [place] Primary Care Unavailable Bandar Porras Attending Unavailable Jordin WRIGHT, Bandar Attending Unavailable Bandar Brenner Primary Care Unavailable Juju, [place] Primary Care Unavailable Jordin WRIGHT, Bandar Attending Unavailable Juju, [place] Primary Care Unavailable Jordin WRIGHT, Bandar Attending Unavailable Bandar Porras Referring Unavailable Allergies Allergy Classification Reported Allergen(s) Allergy Type Date of Onset Reaction(s) Facility Haloperidol (4 sources) Haloperidol Drug Allergy 4 [facility] metFORMIN (4 sources) metFORMIN Drug Allergy 4 [facility] risperiDONE (4 sources) risperiDONE Drug Allergy 4 [facility] (20 sources) haloperidol; Translations: [HALOPERIDOL] Drug Allergy 1 Mental Status Change, Other (See Comments) [facility] [place] Repository Comment on above: "MAKES ME GO CRAZY" (20 sources) metFORMIN; Translations: [METFORMIN] Drug Allergy 6 Intolerance, Other (See Comments) [facility] Repository (20 sources) risperiDONE; Translations: [RISPERIDONE] Drug Allergy 1 Dystonia, Other (See Comments) [facility] Repository Comment on above: "INVOLUNTARY MOVEMEN TS" (20 sources) Acetaminophen; Translations: [ACETAMINOPHEN] Drug Allergy 7 Diarrhea [facility] (20 sources) ARIPiprazole; Translations: [ARIPIPRAZOLE] Drug Allergy 7 Other: See Comments [facility] (20 sources) Chlorpheniramine; Translations: [CHLORPHENIRAMINE ] Drug Allergy 7 Diarrhea [facility] (20 sources) Dextromethorphan; Translations: [DEXTROMETHORPHAN ] Drug Allergy 7 Diarrhea [facility] (20 sources) guaiFENesin; Translations: [GUAIFENESIN] Drug Allergy 7 Diarrhea [facility] (9 sources) Haloperidol; Translations: [haloperidol lactate] Drug Allergy 3 Other [facility] [place] Comment on above: "MAKES ME GO CRAZY" (1 source) ARIPiprazole Drug Allergy 5 [facility] Repository Medications Current Medications Medication Drug Class(es) Dates Sig (Normalized) Sig (Original) acetaminophen 325 mg / oxyCODONE hydrochloride 5 mg oral tablet (1 source) Opioid Agonist Start: 11-17-2023 End: 11-19-2023 take 1 tablet by mouth every six hours as needed for pain Percocet 5 mg-325 mg oral tablet Dose = 1 tab(s), Oral, q6hr, PRN as needed for pain, X 2 day(s), # 8 tab(s), 0 Refill(s), Pain in right leg, 90 Start Date: 11/17/23 Stop Date: 11/19/23 Status: Ordered albuterol 0.83 mg/ml inhalation solution (9 sources) beta2-Adrenergic Agonist Start: 02-16-2017 albuterol (PROVENTIL) (2.5 MG/3ML) 0.083% nebulizer solution Take 3 mLs by nebulization every 2 hours as needed for Wheezing 120 each 3 02/16/2017 Active Start: 04-06-2016 End: 02-17-2024 Albuterol Sulfate (Ventolin Hfa) 1 INHALER inhaler Discontinued 1 - 2 NMA INHALATION EVERY 4 HOURS NEEDED as needed for Shortness Of Breath 1 0 April 06, 2016 12:00am February 17, 2024 1:46pm Start: 04-06-2016 take 1 puff(s) by in halation every four hours as needed Albuterol Sulfate (Ventolin Hfa) 1 INHALER inhaler Active 1 - 2 PUFF INHALATION EVERY 4 HOURS NEEDED April 05, 2016 11:00pm Start: 04-06-2016 take 1 puff(s) by in halation every four hours as needed Albuterol Sulfate (Ventolin Hfa) 1 INHALER inhaler Active 1 - 2 PUFF INHALATION EVERY 4 HOURS NEEDED April 06, 2016 12:00am Start: 04-06-2016 take 1 puff(s) by in halation every four hours as needed Albuterol Sulfate (Ventolin Hfa) 1 INHALER inhaler Active 1 - 2 PUFF INHALATION EVERY 4 HOURS NEEDED April 06, 2016 12:00am albuterol 0.833 mg/ml / ipratropium bromide 0.167 mg/ml inhalation solution (20 sources) Anticholinergic, beta2-Adrenergic Agonist Start: 03-02-2024 End: 03-02-2025 ipratropium-albuterol (Duo-Neb) 0.5-2.5 mg/3 mL nebulizer solution Take 3 mL by nebulization 3 times daily as needed for wheezing or shortness of breath. 180 mL 11 03/02/2024 Active Start: 02-29-2024 End: 03-02-2024 ipratropium-albuterol (Duo-N eb) 0.5-2.5 mg/3 mL nebulizer solution 3 mL aspirin 81 mg delayed release oral tablet (5 sources) Platelet Aggregation Inhibitor, Nonsteroidal Anti-inflammatory Drug Start: 12-03-2024 End: 01-02-2025 take 1 tablet by mouth once daily aspirin 81 MG EC tablet Take 1 tablet (81 mg) by mouth daily. 30 tablet 12/03/2024 01/02/2025 Active atomoxetine 25 mg oral capsule (20 sources) Norepinephrine Reuptake Inhibitor Start: 01-15-2024 atomoxetine 25 mg oral capsule Dose : 50 mg = 2 cap(s), Oral, qAM Start Date: 01/15/24 Status: Ordered Start: 05-05-2023 atomoxetine 40 mg oral capsule Dose : 40 mg = 1 cap(s), Oral, qHS Start Date: 05/05/23 Status: Ordered atomoxetine HCl (STRATTERA ORAL) Take by mouth. 0 Active Comment on above: Take by mouth. atorvastatin 20 mg oral tablet (20 sources) HMG-CoA Reductase Inhibitor Start: 02-25-20 End: 12-07-19 take 1 tablet by mouth once daily atorvastatin (Lipitor) 20 MG tablet Take 1 tablet (20 mg) by mouth Nightly. 03/01/2024 Active benztropine mesylate 0.5 mg oral tablet (4 sources) Anticholinergic, Antihistamine Start: 11-17-19 benztropine 0.5 mg oral tablet Dose : 0.5 mg = 1 tab(s), Oral, BID Start Date: 11/17/23 Status: Ordered Blood Pressure Kit-Extra Large kit (20 sources) Start: 03-12-20 Blood Pressure Kit-Extra Large kit Indications: Essential hypertension Check blood pressure weekly and as needed, 1 Each 03/12/2021 Active Start: 03-12-2021 Blood Pressure Kit-Extra Large kit Indications: Essential hypertension Check blood pressure weekly and as needed, 1 Each 0 03/12/2021 Active Comment on above: Check blood pressure weekly and as needed, Blood-Glucose Sensor (FREESTYLE LAYA 3 SENSOR) fernando (16 sources) Start: 06-17-20 Blood-Glucose Sensor (FREESTYLE LAYA 3 SENSOR) fernando Apply new sensor every fourteen (14) days to upper arm. 6 Each 3 06/17/2023 Active Comment on above: Apply new sensor linh ry fourteen (14) days to upper arm. cholecalciferol 1.25 mg oral capsule (20 sources) Vitamin D Start: 05-20-20 23 End: 12-12-19 24 take 1 capsule by mouth every week cholecalciferol, Vitamin D3, (VITAMIN D3) 1,250 mcg (50,000 unit) cap capsule Indications: Vitamin D insufficiency Take 1 capsule by mouth one time a week. 12 capsule 1 12/12/2023 Active Start: 11-27-2020 End: 01-06-2023 take 1 capsule by mouth every week cholecalciferol, Vitamin D3, (VITAMIN D3) 1,250 mcg (50,000 unit) cap capsule Indications: Vitamin D insufficiency Take 1 capsule by mouth one time a week. 12 capsule 0 01/06/2023 Active Comment on above: Take 1 capsule by [facility] one time a week. docusate sodium 100 mg oral capsule (5 sources) Start: 12-05-2024 End: 12-15-2024 take 1 capsule by mouth twice daily docusate sodium (Colace) 100 MG capsule Take 1 capsule (100 mg) by mouth 2 times daily for 10 days. 20 capsule 12/05/2024 12/15/2024 Active FOLDING WALKER WITH 5" WHEELS (5 sources) Start: 12-29-2023 End: 11-30-2024 FOLDING WALKER WITH 5" WHEELS Indications: Closed fracture of right tibia and fibula with delayed healing, subsequent encounter , Osteomyelitis of right tibia, unspecified type (HCC) 2 wheeled walker 1 Each 12/29/2023 11/30/2024 Active Start: 12-29-2023 End: 11-30-2024 FOLDING WALKER WITH 5" WHEEL S Indications: Closed fracture of right tibia and fibula with delayed healing, subsequent encounter , Osteomyelitis of right tibia, unspecified type (HCC) 2 wheeled walker 1 Each 0 12/29/2023 11/30/2024 Active Comment on above: 2 wheeled walker glipiZIDE 10 mg oral tablet (8 sources) Sulfonylurea Start: 11-09-19 take 1 tablet by mouth twice daily before mealtime glipiZIDE (Glucotrol) 10 MG tablet Take 10 mg by mouth 2 times daily (before meals). 11/09/2024 Active hydrOXYzine pamoate 50 mg oral capsule (12 sources) Antihistamine Start: 10-30-19 take 1 capsule by mouth every six hours for anxiety hydrOXYzine pamoate (VISTARIL) 50 mg capsule take 1 capsule by mouth every 6 hours if needed for anxiety 10/30/2023 Active Comment on above: take 1 capsule by [facility] every 6 hours if needed for anxiety insulin glargine 100 unt/ml injectable solution (4 sources) Insulin Analog Start: 12-08-19 End: 12-07-19 inject 32 [IU] by subcutaneous injection once daily in the morning 32 Units, SubCUTAneous, Every morning, First dose (after last modification) on Fri12/07/24 at 0900 Start: 12-07-2024 End: 12-06-2024 inject 32 [IU] by subcutaneous injection once daily in the morning 32 Units, SubCUTAneous, Every morning, First dose (after last modification) on Fri12/07/24 at 0900 Start: 2024 End: 12-06-2024 inject 26 [IU] by subcutaneous injection once daily in the morning 26 Units, SubCUTAneous, Every morning, First dose on Fri12/04/24 at 0900 ipratropium bromide 0.2 mg/ml inhalation solution (1 source) Anticholinergic Start: 02-16-2017 ipratropium (ATROVENT) 0.02 % nebulizer solution Take 2.5 mLs by nebulization every 2 hours as needed for Wheezing 2.5 mL 3 02/16/2017 Active isopropyl alcohol 0.7 ml/ml medicated pad (13 sources) Start: 08-04-2023 alcohol swabs (ALCOHOL PADS) Indications: Type 2 diabetes mellitus without complication, without long-term current use of insulin (HCC) Use as needed two (2) times daily to test blood glucose. 180 Each 3 08/04/2023 Active Comment on above: Use as needed two (2 ) times daily to test blood glucose. ketoconazole 10 mg/ml medicated shampoo (3 sources) Azole Antifungal Start: 03-11-2024 Nizoral A-D 1% topical shampoo Apply 1 kemi, Topical, Friday & Friday, 115.7 Start Date: 03/11/24 Status: Ordered levothyroxine sodium 0.05 mg oral tablet (20 sources) l-Thyroxine Start: 07-21-2023 End: 12-06-2024 take 1 tablet by mouth once daily Levothyroxine (Euthyrox) 50 mcg tablet Active 50 ug PO DAILY July 21, 2023 12:00am Start: 05-05-2023 levothyroxine 50 mcg (0.05 mg) oral tablet Dose : 50 mcg = 1 tab(s), Oral, acBreakfast Start Date: 05/05/23 Status: Ordered Start: 03-31-2023 End: 05-19-2023 take 1 tablet by mouth once daily Levothyroxine (Euthyrox) 50 mcg tablet Active 50 MCG PO DAILY July 20, 2023 11:00pm Start: 09-19-2021 End: 01-06-2023 take 1 tablet by mouth once daily levothyroxine (SYNTHROID) 50 mcg tablet take 1 tablet by mouth once daily ON AN EMPTY STOMACH 90 tablet 0 01/06/2023 Active Comment on above: Take 1 tablet by karolyn th once daily. Take on empty stomach. For Thyroid take 1 tablet by karolyn th once daily ON AN EMPTY STOMACH LORazepam 0.5 mg oral tablet (8 sources) Benzodiazepine Start: 03-24-2024 End: 03-25-2024 LORazepam 0.5 mg oral tablet Dose : 0.5 mg = 1 tab(s), Oral, TID, X 1 day(s), # 3 tab(s), 0 Refill(s), 03/25/24 12:39:00 PM EDT, Schizoaffective disorder, 115.7 Start Date: 03/24/24 Stop Date: 03/25/24 Status: Ordered Start: 07-21-2023 End: 02-17-2024 take 1 tablet by mouth twice daily Lorazepam (Ativan) 2 mg tablet Discontinued 2 mg PO TWICE A DAY July 21, 2023 12:00am February 17, 2024 1:47pm melatonin 5 mg oral tablet (20 sources) Start: 02-26-2024 End: 12-06-2024 take 1 tablet by mouth once daily melatonin 5 MG tablet Take 1 tablet (5 mg) by mouth Nightly. 03/02/2024 Active meloxicam 15 mg oral tablet (20 sources) Nonsteroidal Anti-inflammatory Drug Start: 05-05-2023 End: 12-12-2023 meloxicam 15 mg oral tablet Dose : 15 mg = 1 tab(s), Oral, qDay Start Date: 05/05/23 Status: Ordered Start: 05-15-2022 End: 10-21-2022 take 1 tablet by mouth once daily meloxicam (MOBIC) 15 mg tablet Indications: Acute right-sided low back pain without sciatica Take 1 tablet by mouth once daily. 90 tablet 1 10/21/2022 Active Start: 08-07-2021 End: 11-19-2021 take 1 tablet by mouth once daily at mealtime for pain meloxicam (MOBIC) 15 mg tablet Indications: Acute right-sided low back pain without sciatica take 1 tablet by mouth once daily with food for BACK PAIN 90 tablet 1 11/19/2021 Active Comment on above: take 1 tablet by karolyn th once daily with food for BACK PAIN Take 1 tablet by karolyn th once daily. menthol 0.04 mg/mg topical gel (3 sources) Start: 4 Biofreeze 4% topical gel Apply 1 kemi, Topical, BID, Apply to: neck, 115.7 Start Date: 03/11/24 Status: Ordered metoprolol tartrate 50 mg oral tablet (1 source) beta-Adrenergic Yasmin take 1 tablet by mouth twice daily metoprolol tartrate (LOPRESSOR) 50 MG tablet Take 50 mg by mouth 2 times daily 0 Active multivitamin tablet (20 sources) Start: 0 take 1 tablet by mouth once daily multivitamin tablet Indications: Vitamin D insufficiency Take 1 tablet by mouth once daily. 08/07/2020 Active Start: 08-07-2020 take 1 tablet by karolyn th once daily multivitamin tablet Indications: Vitamin D insufficiency Take 1 tablet by mouth once daily. 0 08/07/2020 Active Comment on above: Take 1 tablet by karolyn th once daily. ondansetron 4 mg oral tablet (2 sources) Serotonin-3 Receptor Antagonist Start: 5 End: 5 take 1 tablet by mouth every eight hours as needed for nausea and vomiting ondansetron (Zofran) 4 MG tablet Take 1 tablet (4 mg) by mouth every 8 hours as needed for nausea or vomiting for up to 7 days. 20 tablet 12/03/2024 12/10/2024 Active oxyCODONE hydrochloride 5 mg oral tablet (12 sources) Opioid Agonist Start: 5 End: 5 take 1 tablet by mouth every six hours as needed for pain oxyCODONE (Roxicodone) 5 MG immediate release tablet Indications: Below-knee amputation of right lower extremity, initial encounter (HCC) Take 1 tablet (5 mg) by mouth every 6 hours as needed for severe pain (7-10) for up to 10 days. 28 tablet 12/03/2024 12/13/2024 Active Start: 12-02-2024 End: 12-06-2024 take 1 tablet by mouth every four hours as needed for pain oxyCODONE (Roxicodone) immediate release tablet 5 mg Start: 03-24-2024 End: 03-25-2024 oxyCODONE 5 mg oral tablet ( IMMEDIATE release ) Dose : 5 mg = 1 tab(s), Oral, q6hr, X 1 day(s), # 4 tab(s), 0 Refill(s), 03/25/24 12:40:00 PM EDT, Infection of hand, 115.7 Start Date: 03/24/24 Stop Date: 03/25/24 Status: Ordered Start: 02-25-2024 End: 03-04-2024 take 1 tablet by mouth every six hours as needed for pain oxyCODONE (Roxicodone) 5 MG immediate release tablet Indications: Pyogenic arthritis of left hand, due to unspecified organism (HCC) Take 1 tablet (5 mg) by mouth every 6 hours as needed for moderate pain (4-6) or severe pain (7-10) for up to 3 days. 12 tablet 0 03/01/2024 03/04/2024 Active Start: 12-29-2023 End: 01-03-2024 take 1 tablet by mouth every eight hours as needed for pain oxyCODONE IR (ROXICODONE) 5 mg immediate release tablet Indications: Closed fracture of right tibia and fibula with delayed healing, subsequent encounter , Osteomyelitis of right tibia, unspecified type (HCC) Take 1 tablet by mouth every 8 hours as needed for pain for up to 5 days. 15 tablet 0 12/29/2023 01/03/2024 Active Start: 11-10-2023 End: 11-12-2023 oxyCODONE 5 mg oral tablet ( IMMEDIATE release ) Dose : 5 mg = 1 tab(s), Oral, q6h, X 2 day(s), # 7 tab(s), 0 Refill(s), 11/12/23 3:48:00 PM EST, Lower leg injury, 106.2 Start Date: 11/10/23 Stop Date: 11/12/23 Status: Ordered Comment on above: Take 1 tablet by karolyn every 8 hours as needed for pain for up to 5 days. polyethylene glycol 3350 [id number] mg powder for oral solution (20 sources) Osmotic Laxative Start: End: take 17 g by mouth once daily polyethylene glycol, PEG, 3350 (Miralax) 17 g packet Take 17 g by mouth daily. 03/02/2024 Active pravastatin sodium 20 mg oral tablet (1 source) HMG-CoA Reductase Inhibitor take 1 tablet by mouth once daily pravastatin (PRAVACHOL) 20 MG tablet Take 20 mg by mouth daily 0 Active prazosin 1 mg oral capsule (20 sources) alpha-Adrenergic Yasmin Start: 2 prazosin (MINIPRESS) 1 mg cap 08/26/2022 Active predniSONE 20 mg oral tablet (1 source) Start: 3 End: 3 predniSONE 20 mg oral tablet Dose : 40 mg = 2 tab(s), Oral, qDayM, X 3 day(s), # 6 tab(s), 0 Refill(s), 05/15/23 2:31:00 PM EDT, Pharmacy: [id number], 165.1, cm, 05/05/23 17:58:00 EDT, Height, kg, 05/05/23 17:58:00 EDT, Dosing Weight Start Date: 05/12/23 Stop Date: 05/15/23 Status: Ordered sennosides, longterm 8.6 mg oral tablet (20 sources) Start: 5 End: 5 sennosides (Senokot) 8.6 MG tablet Take 1 tablet (8.6 mg) by mouth daily for 10 days. Take at minimum once per day to prevent constipation while taking narcotic pain medicine (such as oxycodone, percocet, norco, hydrocodone). 10 tablet 12/03/2024 12/13/2024 Active Start: 03-02-2024 End: 03-02-2025 take 1 tablet by mouth twice daily sennosides (Senokot) 8.6 MG tablet Take 1 tablet (8.6 mg) by mouth 2 times daily. 03/02/2024 12/06/2024 Discontinued (Stop taking at discharge) SITagliptin 100 mg oral tablet (20 sources) Dipeptidyl Peptidase 4 Inhibitor Start: 04-21-2023 End: 12-12-2023 take 1 tablet by mouth once daily SITagliptin phosphate (JANUVIA) 100 mg tablet Take 1 tablet by mouth once daily. 90 tablet 3 12/12/2023 Active Start: 05-15-2022 End: 11-25-2022 take 1 tablet by mouth once daily JANUVIA 100 mg tablet take 1 tablet by mouth once daily 90 tablet 0 11/25/2022 Active Start: 08-07-2021 End: 02-11-2022 take 1 tablet by mouth once daily JANUVIA 100 mg tablet take 1 tablet by mouth once daily 90 tablet 0 02/11/2022 Active Comment on above: Take 1 tablet by karolyn th once daily. take 1 tablet by karolyn th once daily traZODone hydrochloride 50 mg oral tablet (20 sources) Serotonin Reuptake Inhibitor Start: 12-05-2023 End: 12-06-2024 take 1 tablet by mouth once daily as needed for sleep traZODone (Desyrel) 50 MG tablet Take 1 tablet (50 mg) by mouth Nightly as needed for sleep. 03/02/2024 Active take 1 tablet by mouth once jd y traZODone (DESYREL) 150 MG tablet Take 150 mg by mouth nightly 0 Active TRUE METRIX GLUCOSE METER [facility] (20 sources) Start: 11-14-2019 TRUE METRIX GL UCOSE METER misc as directed. 11/14/2019 Active Start: 11-14-2019 TRUE METRIX GL UCOSE METER misc as directed. 0 11/14/2019 Active Comment on above: as directed. Vitamin D3 1250 mcg (50,000 intl units) oral capsule (7 sources) Start: 05-05-2023 Vitamin D3 1250 mcg (50,000 intl units) oral capsule Dose : 1,250 mcg = 1 cap(s), Oral, qWeek Start Date: 05/05/23 Status: Ordered ziprasidone 20 mg oral capsule (20 sources) Atypical Antipsychotic Start: 03-24-2024 Geodon 20 mg oral capsule Dose : 80 mg = 4 cap(s), Oral, BIDM, 0 Refill(s) Start Date: 03/24/24 Status: Ordered Start: 07-21-2023 End: 02-17-2024 take 1 capsule by mouth twice daily at mealtime Ziprasidone Hcl (Geodon) 60 mg capsule Discontinued 60 mg PO TWICE A DAY July 21, 2023 12:00am February 17, 2024 1:48pm give with food (meal/snack) Start: 11-02-2018 take 1 capsule by mo [facility] once daily ziprasidone (GEODON) 20 mg capsule Take 20 mg by mouth once daily. 0 11/02/2018 Active Start: 11-02-2018 take 1 capsule by [facility] twice daily at mealtime ziprasidone (GEODON) 20 mg capsule Take 20 mg by mouth twice daily with meals. 0 11/02/2018 Active take 1 capsule by [facility] once daily ziprasidone (GEODON) 80 mg capsule Take 80 mg by mouth once daily. 0 Active Comment on above: Take 80 mg by mouth once daily. Take 20 mg by mouth twice daily with meals. Take 20 mg by mouth once daily. Completed/Discontinued Medications Medication Drug Class(es) Dates Sig (Normalized) Sig (Original) acetaminophen 500 mg oral tablet (20 sources) Start: 2024 End: 12-06-2024 take 1000 mg by mouth three times daily for pain 1,000 mg, Oral, 3 times daily, First dose (after last modification) on 12/04/24 at 0900, Give in addition to any other pain medication ordered at same time for any pain indication. Start: 12-03-2024 End: 12-13-2024 take 2 tablets by mouth every six hours as needed for pain acetaminophen (Tylenol Extra Strength) 500 MG tablet Take 2 tablets (1,000 mg) by mouth every 6 hours as needed for mild pain (1-3) for up to 10 days. 30 tablet 12/03/2024 12/13/2024 Active Start: 12-02-2024 End: 2024 take 1 tablet by mouth every four hours as needed for pain and pain and pain 650 mg, Oral, Every 4 hours PRN, mild pain (1-3),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 L501.8100, L100.0500 #### [facility] [address] [place], [address] Hemoglobin (Bld) [Mass/Vol] 14.4 g/dL Normal 13.0-16.5 [facility] Comment on above: Order Comment: 303.1 Performed By: #### L 500.2500, L501.8100, L100.0500 #### [facility] [address] [place], [address] MCH (RBC) [Entitic mass] 27.4 pg Normal 27.0-32.0 [facility] Comment on above: Order Comment: 303.1 Performed By: #### L 500.2500, L501.8100, L100.0500 #### [facility] [address] [place], [address] MCHC (RBC) [Mass/Vol] 33.0 g/dL Normal 32-36 [facility] Comment on above: Order Comment: 303.1 Performed By: #### L 500.2500, L501.8100, L100.0500 #### [facility] [address] [place], [address] MCV (RBC) [Entitic vol] 83.1 fL Normal 80-[address] [facility] Comment on above: Order Comment: 303.1 Performed By: #### L 500.2500, L501.8100, L100.0500 #### [facility] [address] [place], [address] Platelet mean volume (Bld) [Entitic vol] 11.9 fL Normal 6.2-12.0 [facility] Comment on above: Order Comment: 303.1 Performed By: #### L 500.2500, L501.8100, L100.0500 #### [facility] [address] [place], [address] Platelets (Bld) [#/Vol] 154 10*3/uL Normal 150-450 [facility] Comment on above: Order Comment: 303.1 Performed By: #### L 500.2500, L501.8100, L100.0500 #### [facility] [address] [place], [address] RBC (Bld) [#/Vol] 5.26 10*6/uL Normal 4.6-6.2 [facility] Comment on above: Order Comment: 303.1 Performed By: #### L 500.2500, L501.8100, L100.0500 #### [facility] [address] [place], [address] RDW SD 43.8 fl Normal 35.1-43.9 [facility] Comment on above: Order Comment: 303.1 Performed By: #### L 500.2500, L501.8100, L100.0500 #### [facility] [address] [place], [place], [address] WBC (Bld) [#/Vol] 8.4 10*3/uL Normal 4.4-11.0 [facility] Comment on above: Order Comment: 303.1 Performed By: #### L 500.2500, L501.8100, L100.0500 #### [facility] [address] [place], [place], [id number] Carbon dioxide, total [Moles /volume] in Central venous bloodOrdered By: Bandar Brenner on 04-12-2025 CO2 [Moles/Vol] 23.7 mmol/L 21.0-32.0 [facility] Chloride assayOrdered By: Ras Brenner on 04-12-2025 Chloride [Moles/Vol] 103 mmol/L 98-108 [facility] Erythrocyte distribution wid th ratioOrdered By: Bandar Brenner on 04-12-2025 Erythrocyte distribution width (RBC) [Ratio] 14.6 % 11.6-14.6 [facility] Erythrocyte distribution wid th standard deviationOrdered By: Bandar Brenner on 04-12-2025 Erythrocyte distribution width (RBC) [Ratio] 43.8 fl 35.1-43.9 [facility] Glomerular filtration rate ( GFR) estimation/1.73 sq m using serum, plasma, or whole bOrdered By: Bandar Brenner on 04-12-2025 GFR/1.73 sq M.predicted among non-blacks MDRD (S/P/Bld) [Vol rate/Area] 107 mL/min/{1.73_m2} >60 [facility] Comment on above: mL/min/1.73m2 CKD-EP I Creatinine Equation (2020) Hematocrit Auto (Bld) [Volum e fraction]Ordered By: Bandar Brenner on 04-12-2025 Hematocrit (Bld) [Volume fraction] 43.7 % 40-54 [facility] Hemoglobin measurementOrdere d By: Bandar Brenner on 04-12-2025 Hemoglobin (Bld) [Mass/Vol] 14.4 g/dL 13.0-16.5 [facility] MCV (mean corpuscular volume ) determinationOrdered By: Bandar Brenner on 04-12-2025 MCV (RBC) [Entitic vol] 83.1 fL 80-[address] [facility] Mean corpuscular hemoglobin (MCH) determinationOrdered By: Bandar Brenner on 04-12-2025 MCH (RBC) [Entitic mass] 27.4 pg 27.0-32.0 [facility] Mean corpuscular hemoglobin concentration (MCHC) determinationOrdered By: Bandar Brenner on 04-12-2025 MCHC (RBC) [Mass/Vol] 33.0 g/dL 32-36 [facility] Mean platelet volume determi nationOrdered By: Bandar Brenner on 04-12-2025 Platelet mean volume (Bld) [Entitic vol] 11.9 fL 6.2-12.0 [facility] Platelet countOrdered By: Ras Brenner on 04-12-2025 Platelets (Bld) [#/Vol] 154 10*3/uL 150-450 [facility] Potassium measurement (mass/ volume)Ordered By: Bandar Brenner on 04-12-2025 Potassium (Unsp spec) [Mass/Vol] 4.1 mmol/L 3.3-5.1 [facility] RBC Auto (Bld) [#/Vol]Ordere d By: Bandar Brenner on 04-12-2025 RBC (Bld) [#/Vol] 5.26 10*6/uL 4.6-6.2 [facility] Serum creatinine measurement (mass/volume)Ordered By: Bandar Brenner on 04-12-2025 Creatinine [Mass/Vol] 0.90 mg/dL 0.70-1.20 [facility] Serum glucose measurement (m ass/volume)Ordered By: Bandar Brenner on 04-12-2025 Glucose [Mass/Vol] 153 mg/dL High 70-99 [facility] Serum or plasma calcium diane urement (mass/volume)Ordered By: Bandar Brenner on 04-12-2025 Calcium [Mass/Vol] 9.4 mg/dL 7.6-11.0 [facility] Serum or plasma urea nitroge n measurement (mass/volume)Ordered By: Bandar Brenner on 04-12-2025 Urea nitrogen [Mass/Vol] 16 mg/dL 4-19 [facility] Serum or plasma valproate me asurement (mass/volume)Ordered By: Bandar Brenner on 04-12-2025 Valproate [Mass/Vol] 34 ug/mL Low 50-100 [facility] Comment on above: Valproic Acid concen trations >100 ug/mL are potentially toxic. Sodium levelOrdered By: Tye jing Jordin on 04-12-2025 Sodium [Moles/Vol] 139 mmol/L 133-145 [facility] Valproic Acid (Depakene) Lev alvaro 04-12-2025 VALPROIC ACID 34 ug/mL Low 50-100 [facility] Comment on above: Order Comment: 303.1 Result Comment: Valp roic Acid concentrations >100 ug/mL are potentially toxic. Performed By: #### L 500.2500, L501.8100, L100.0500 #### [facility] [address] [place], [address] White blood cell (WBC) count Ordered By: Bandar Brenner on 04-12-2025 WBC (Bld) [#/Vol] 8.4 10*3/uL 4.4-11.0 [facility] Office Visiton 03-02-2025 Follow-up visit [id number] Herber Ruby 1980 M Date Provider Department Center 03/02/2025 PATTI THORPE [facility] OR None Family History Problem Relation Age of Onset Bipolar disorder Other Family Status - Relation Status Age at Other Level of Service:50046 [place] POSTOP FOLLOW UP VISIT RELATED TO ORIGINAL PX Reason for Visit and Comments: Post-op [483] - Right Below Knee Amputation sx 12/03 Normal [facility] Progress Noteon 03-02-2025 Progress Note Subjective: Talia is approximately 12 weeks post op from Right Below Knee Amputation. Pain is moderate. He denies new numbness or tingling since surgery. He denies other new complaints. He still at staying at [facility]. He does have his temporary prosthetic. He is getting a little wound on his leg from the prosthetic. Leesa neri is coming to see him at his care center today for adjustment of the temporary prosthesis. He understands he needs to let them know where he is feeling issues so that this can be adjusted properly. He is still having some issues with swelling also. Review of Systems Objective: Ht 5' 7.5" (1.715 m) Wt 264 lb (120 kg) BMI 40.74 kg/m? right lower extremity Skin: Skin intact without any lesions. No erythema or signs of infection Knee ROM NML without pain Swelling:absent. Sensation normal to all distal dermatomes in the foot and ankle. BCR to the digits XRAYS: No imaging taken this visit Assessment 1. Below-knee amputation of right lower extremity, initial encounter ([facility]) 2. 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 Talia is doing well. They will remain WBAT with his temporary prosthesis. He may need to be progressed to the permanent prosthesis as Leesa neri to get his temporary prosthesis fitting properly. He understands that this can take some time. He understands that he still needs to elevate and ice the area as well as use lotion for desensitization. I'll see him back as needed. Electronically signed by Patti Durant M.D. 03/02/2025 at 11:[address] [facility] 37on 01-11-2025 37 Please confirm appointment with An Astonish Resultsshanti [facility] Office Visiton 01-11-2025 Follow-up visit [id number] Herber Ruby mon 1980 M Date Provider Department Center 01/11/2025 [id number] ROE [facility] OR None Family History Problem Relation Age of Onset Bipolar disorder Other Family Status - Relation Status Age at Other Level of Service:37711 SD POSTOP FOLLOW UP VISIT RELATED TO ORIGINAL PX Reason for Visit and Comments: Post-op [483] - Right BKA Sx 12/[address] [facility] Progress Noteon 01-11-2025 Progress Note Subjective: Talia is approximately 6 weeks post op from Right Below Knee Amputation. Pain is severe. He states it feels like a ayaan horse. He is taking oxycodone, tylenol, and ibuprofen for pain. He denies new numbness or tingling since surgery. He denies other new complaints. He is staying at [facility]. He saw An Astonish Resultsshanti yesterday. He will be receiving the project management consultant socks in the near future for edema control of his residual limb. He is set up to receive his temporary prosthesis in the near future also. He states he does have an appointment set up to see Leesa neri for this. Review of Systems Objective: Ht 5' 7.5" (1.715 m) Wt 264 lb (120 kg) BMI 40.74 kg/m? right lower extremity Skin: All incisions are healing appropriately. No erythema or signs of infection he has several areas of scabbing as well as some dry skin. No areas of open wound. He shows no signs of infection or suture granuloma. All of his marvin have been removed at his last visit. Swelling:mild. Residual limb remains soft to examination. Capillary refill is intact. Assessment 1. Below-knee amputation of right lower extremity, initial encounter ([facility]) @No orders of the defined types were placed in this encounter. Talia is doing well. The patient was advised to wash the area once a day with soap and water. They were advised not to soak the area in a bathtub, hot tub or swimming pool. They were shown how to apply an appropriate dressing to the area. The use of lotion and massage over the affected area would be helpful to desensitize and decrease swelling and pain. Low impact activities are recommended. He will maintain his follow-up with Leesa neri. He will continue to utilize the project management consultant socks as directed by Leesa. He will follow-up with Dr. Durant in the next 6 weeks or sooner if he is having any issues. This patient was discussed with Dr. Durant in detail. The patient underwent a below the knee amputation on his right side. A custom fabricated ankle-foot orthosis will be necessary at this time for completion of activities of daily living and to maintain a level of independence for this patient. Electronically signed by Patti Durant M.D. 01/11/2025 at 2:[address] [facility] Progress Note Subjective: Talia is approximately 6 weeks post op from Right Below Knee Amputation. Pain is severe. He states it feels like a ayaan horse. He is taking oxycodone, tylenol, and ibuprofen for pain. He denies new numbness or tingling since surgery. He denies other new complaints. He is staying at [facility]. He saw An Neri yesterday. He will be receiving the project management consultant socks in the near future for edema control of his residual limb. He is set up to receive his temporary prosthesis in the near future also. He states he does have an appointment set up to see Leesa neri for this. Review of Systems Objective: Ht 5' 7.5" (1.715 m) Wt 264 lb (120 kg) BMI 40.74 kg/m? right lower extremity Skin: All incisions are healing appropriately. No erythema or signs of infection he has several areas of scabbing as well as some dry skin. No areas of open wound. He shows no signs of infection or suture granuloma. All of his marvin have been removed at his last visit. Swelling:mild. Residual limb remains soft to examination. Capillary refill is intact. Assessment 1. Below-knee amputation of right lower extremity, initial encounter ([facility]) @No orders of the defined types were placed in this encounter. Talia is doing well. The patient was advised to wash the area once a day with soap and water. They were advised not to soak the area in a bathtub, hot tub or swimming pool. They were shown how to apply an appropriate dressing to the area. The use of lotion and massage over the affected area would be helpful to desensitize and decrease swelling and pain. Low impact activities are recommended. He will maintain his follow-up with Leesa neri. He will continue to utilize the project management consultant socks as directed by Leesa. He will follow-up with Dr. Durant in the next 6 weeks or sooner if he is having any issues. This patient was discussed with Dr. Durant in detail. The patient underwent a below the knee amputation on his right side. A custom fabricated ankle-foot orthosis will be necessary at this time for completion of activities of daily living and to maintain a level of independence for this patient. Electronically signed by Patti Durant M.D. 02/02/2025 at 7:[address] [facility] Vitamin D,25 Hydroxyon 01-10 Vitamin D 25-OH 31.9 ng/mL Normal 30-100 [facility] Comment on above: Order Comment: 314.1 Result Comment: Allegra min D Status Deficiency: <20 ng/mL (50nmol/L) Insufficiency: 20-30 ng/mL (50-75 nmol/L) Sufficiency: 30-100 ng/mL (75-250 nmol/L) Toxicity: >100 ng/mL (>250 nmol/L) Performed By: #### L 506.1001 #### [facility] Laboratory [address] [place], [address] T4 Total, Thyroxinon 025 T4 [Mass/Vol] 9.2 ug/dL Normal 4.5-12.1 [facility] Comment on above: Order Comment: 314-1 Performed By: #### L 501.9520, L501.9310 #### [facility] Laboratory [address], [address] Thyroid Stim Hormone (TSH)on 01-05-2025 TSH 0.842 uIU/mL Normal 0.300-4.20 0 [facility] Comment on above: Order Comment: 314-1 Performed By: #### L 501.9520, L501.9310 #### [facility] [address] [place], [address] CBC-Complete Blood Cnt No Di ffon 12-31-2024 Erythrocyte distribution width (RBC) [Ratio] 13.2 % Normal 11.6-14.6 [facility] Comment on above: Performed By: #### L 500.4050, L500.4100, L501.9985, L100.0500, L501.9310, L501.8100, L502.0250 #### [facility] [address] [place], [address] Hematocrit (Bld) [Volume fraction] 40.4 % Normal 40-54 [facility] Comment on above: Performed By: #### L 500.4050, L500.4100, L501.9985, L100.0500, L501.9310, L501.8100, L502.0250 #### [facility] [address] [place], [address] Hemoglobin (Bld) [Mass/Vol] 13.5 g/dL Normal 13.0-16.5 [facility] Comment on above: Performed By: #### L 500.4050, L500.4100, L501.9985, L100.0500, L501.9310, L501.8100, L502.0250 #### [facility] [address] [place], [address] MCH (RBC) [Entitic mass] 29.6 pg Normal 27.0-32.0 [facility] Comment on above: Performed By: #### L 500.4050, L500.4100, L501.9985, L100.0500, L501.9310, L501.8100, L502.0250 #### [facility] [address] [place], [address] MCHC (RBC) [Mass/Vol] 33.4 g/dL Normal 32-36 [facility] Comment on above: Performed By: #### L 500.4050, L500.4100, L501.9985, L100.0500, L501.9310, L501.8100, L502.0250 #### [facility] [address] [place], [address] MCV (RBC) [Entitic vol] 88.6 fL Normal 80-[address] [facility] Comment on above: Performed By: #### L 500.4050, L500.4100, L501.9985, L100.0500, L501.9310, L501.8100, L502.0250 #### [facility] [address] [place], [address] Platelet mean volume (Bld) [Entitic vol] 10.5 fL Normal 6.2-12.0 [facility] Comment on above: Performed By: #### L 500.4050, L500.4100, L501.9985, L100.0500, L501.9310, L501.8100, L502.0250 #### [facility] [address] [place], [address] Platelets (Bld) [#/Vol] 227 10*3/uL Normal 150-450 [facility] Comment on above: Performed By: #### L 500.4050, L500.4100, L501.9985, L100.0500, L501.9310, L501.8100, L502.0250 #### [facility] [address] [place], [address] RBC (Bld) [#/Vol] 4.56 10*6/uL Low 4.6-6.2 [facility] Comment on above: Performed By: #### L 500.4050, L500.4100, L501.9985, L100.0500, L501.9310, L501.8100, L502.0250 #### [facility] [address] [place], [address] RDW SD 42.4 fl Normal 35.1-43.9 [facility] Comment on above: Performed By: #### L 500.4050, L500.4100, L501.9985, L100.0500, L501.9310, L501.8100, L502.0250 #### [facility] [address] [place], [address] WBC (Bld) [#/Vol] 8.4 10*3/uL Normal 4.4-11.0 [facility] Comment on above: Performed By: #### L 500.4050, L500.4100, L501.9985, L100.0500, L501.9310, L501.8100, L502.0250 #### [facility] [address] [place], [address] Comprehensive Metabolic Prof txon 12-31-2024 Albumin [Mass/Vol] 3.8 g/dL Normal 3.5-5.0 [facility] Comment on above: Performed By: #### L 501.9520, L501.9310 #### [facility] [address] [place], [address] Albumin/Globulin [Mass ratio] 1.3 {ratio} Normal 0.9-2.4 [facility] Comment on above: Performed By: #### L 501.9520, L501.9310 #### [facility] [address] [place], [address] ALK PHOS 87 U/L Normal 40-129 [facility] Comment on above: Performed By: #### L 501.9520, L501.9310 #### [facility] [address] [place], [address] ALT [Catalytic activity/Vol] 32 U/L Normal <=46 [facility] Comment on above: Performed By: #### L 501.9520, L501.9310 #### [facility] [address] [place], [address] AST [Catalytic activity/Vol] 23 U/L Normal <=37 [facility] Comment on above: Performed By: #### L 501.9520, L501.9310 #### [facility] [address] [place], [address] Bilirubin [Mass/Vol] 0.32 mg/dL Normal 0.00-1.30 [facility] Comment on above: Performed By: #### L 501.9520, L501.9310 #### [facility] [address] [place], [address] BUN/CRE 19.0 RATIO Normal 10-20 [facility] Comment on above: Performed By: #### L 501.9520, L501.9310 #### [facility] [address] [place], [address] Calcium [Mass/Vol] 9.4 mg/dL Normal 7.6-11.0 [facility] Comment on above: Performed By: #### L 501.9520, L501.9310 #### [facility] [address] [place], [address] Chloride [Moles/Vol] 104 mmol/L Normal 98-108 [facility] Comment on above: Performed By: #### L 501.9520, L501.9310 #### [facility] [address] [place], [address] CO2 [Moles/Vol] 22.9 mmol/L Normal 21.0-32.0 [facility] Comment on above: Performed By: #### L 501.9520, L501.9310 #### [facility] [address] [place], [address] Creatinine [Mass/Vol] 0.91 mg/dL Normal 0.70-1.20 [facility] Comment on above: Performed By: #### L 501.9520, L501.9310 #### [facility] [address] [place], [address] GAP 12 Normal 5-15 [facility] Comment on above: Performed By: #### L 501.9520, L501.9310 #### [facility] [address] [place], [address] GFR/1.73 sq M.predicted among non-blacks MDRD (S/P/Bld) [Vol rate/Area] 106 mL/min/{1.73_m2} Normal >60 [facility] Comment on above: Result Comment: mL/m in/1.73m2 CKD-EPI Creatinine Equation (2020) Performed By: #### L 501.9520, L501.9310 #### [facility] [address] [place], [address] Globulin (S) [Mass/Vol] 2.8 g/dL Normal 2.2-4.2 [facility] Comment on above: Performed By: #### L 501.9520, L501.9310 #### [facility] [address] [place], [address] Glucose [Mass/Vol] 165 mg/dL High 70-99 [facility] Comment on above: Performed By: #### L 501.9520, L501.9310 #### [facility] [address] [place], [address] Potassium [Moles/Vol] 3.8 mmol/L Normal 3.3-5.1 [facility] Comment on above: Performed By: #### L 501.9520, L501.9310 #### [facility] [address] [place], [address] Sodium [Moles/Vol] 139 mmol/L Normal 133-145 [facility] Comment on above: Performed By: #### L 501.9520, L501.9310 #### [facility] [address] [place], [address] T PROT 6.6 g/dL Normal 5.9-8.4 [facility] Comment on above: Performed By: #### L 501.9520, L501.9310 #### [facility] [address] [place], [address] Urea nitrogen [Mass/Vol] 17 mg/dL Normal 4-19 [facility] Comment on above: Performed By: #### L 501.9520, L501.9310 #### [facility] [address] [place], [address] Hemoglobin A1con 12-31-2024 HbA1c (Bld) [Mass fraction] 9.2 % Normal <=5.6 [facility] Comment on above: Performed By: #### L 501.9520, L501.9310 #### [facility] [address] [place], [address] Lipid Profileon 12-31-2024 CHOL:HDL 5.45 Normal [facility] Comment on above: Performed By: #### L 501.9520, L501.9310 #### [facility] [address] [place], [address] Cholesterol [Mass/Vol] 108 mg/dL Normal <=200 [facility] Comment on above: Result Comment: Chol esterol level, Desirable <200 mg/dL Borderline high cholesterol 200-239 mg/dL High cholesterol >=240 mg/dL Recommendations of the NCEP Adult Treatment Panel for the following risk-cutoff thresholds for the [place] population. Performed By: #### L 501.9520, L5.9310 #### [facility] [address] [place], [address] Cholesterol in HDL [Mass/Vol] 20 mg/dL Low [facility] Comment on above: Result Comment: Carla onal Cholesterol Education Program (NCEP) guidelines: <40 mg/dL: Low HDL-cholesterol (major risk factor for CHD) >= 60 mg/dL: High HDL-cholesterol (negative risk factor for CHD) HDL-cholesterol is affected by a number of factors, e.g. smoking, exercise, hormones, sex and age. Performed By: #### L 501.9520, L501.9310 #### [facility] [address] [place], [address] Cholesterol in LDL [Mass/Vol] 33 mg/dL Normal [facility] Comment on above: Result Comment: Bord mctwin=168-015 mg/dL Higher Umks=394 mg/dL or greater Performed By: #### L 501.9520, L501.9310 #### [facility] [address] [place], [address] Cholesterol in VLDL [Mass/Vol] 55 mg/dL High 5-40 [facility] Comment on above: Performed By: #### L 501.9520, L501.9310 #### [facility] [address] [place], [address] Triglyceride [Mass/Vol] 274 mg/dL High [facility] Comment on above: Result Comment: The drugs N-Acetylcysteine and Metamizole may falsely depress this assay. Normal range: <150 mg/dL Borderline High: 150-199 mg/dL High: 200-499 mg/dL Very High: >500 mg/dL Performed By: #### L 501.9520, L501.9310 #### [facility] [address] [place], [address] Microalb:Creat Ratio,Random URon 12-31-2024 Creatinine [Mass/Vol] 89.80 mg/dL Normal 39.00- 259. 00 [facility] Comment on above: Performed By: #### L 501.9520, L501.9310 #### [facility] [address] [place], [address] MALB:CREAT UNABLE TO CALCULATE Normal [facility] Comment on above: Performed By: #### L 501.9520, L501.9310 #### [facility] [address] [place], [address] MICROALBUMIN,UR < 12.0 Normal NO RANGE EST. [facility] Comment on above: Performed By: #### L 501.9520, L501.9310 #### [facility] [address] [place], [address] T4 Total, Thyroxinon 025 T4 [Mass/Vol] 8.7 ug/dL Normal 4.5-12.1 [facility] Comment on above: Performed By: #### L 501.9520, L501.9310 #### [facility] [address] [place], [address] Valproic Acid (Depakene) Lev alvaro 12-31-2024 VALPROIC ACID 26 ug/mL Low 50-100 [facility] Comment on above: Result Comment: Valp roic Acid concentrations >100 ug/mL are potentially toxic. Performed By: #### L 501.9520, L501.9310 #### [facility] [address] [place], [address] Office Visiton 12-14-2024 Follow-up visit [id number] Herber Ruby randa 1980 M Date Provider Department Center 12/14/2024 [id number] [facility] OR None Family History Problem Relation Age of Onset Bipolar disorder Other Family Status - Relation Status Age at Other Level of Service:49588 [place] POSTOP FOLLOW UP VISIT RELATED TO ORIGINAL PX Reason for Visit and Comments: Post-op [483] - Right BKA Sx 12/[address] [facility] Progress Noteon 12-14-2024 Progress Note Subjective: Talia is approximately 2 weeks post op from right below knee amputation. Pain is severe. He denies new numbness or tingling since surgery. He denies other new complaints. He is staying at [facility]. He is having some burning pain. Denies any fevers or chills Review of Systems Objective: Ht 1.715 m (5' 7.5") Wt 120 kg (264 lb) BMI 40.74 kg/m? right lower extremity Skin: All incisions are healing appropriately. No erythema or signs of infection Good normal range of motion of the knee Swelling:mild. Sensation normal to distal stump with some mild sensitivity near the incision BCR to stump XRAYS: No imaging taken this visit Assessment 1. Below-knee amputation of right lower extremity, initial encounter ([facility]) @ Orders Placed This Encounter Procedures General supply request: project management consultant Talia is doing well. He was given a prescription to see antibiotics for a stump project management consultant and begin the process of getting his prosthesis. His marvin were removed today in office without any issues. He will follow-up in a month to see how he is progressing and healing Electronically signed by Patti Durant M.D. 12/14/2024 at 2:39 PM. Normal [facility] 30on 12-06-2024 30 Problem: Pain - Adul t Goal: Verbalizes/displays adequate comfort level or baseline comfort level Outcome: Progressing Flowsheets (Taken 12/06/2024 0931) Verbalizes/displays adequate comfort level or baseline comfort level: Encourage patient to monitor pain and request assistance Assess pain using appropriate pain scale Problem: Safety - Adult Goal: Free from fall injury Outcome: Progressing Flowsheets (Taken 12/04/20242011 by Bill Baker RN) Free from fall injury: Instruct family/caregiver on patient safety [facility] [id number] 12-06-2024 [id number] Received letter of guardianship; put copy in his chart, which will go to Medical Records. Attempted to meet bedside with patient to discuss SDOH needs, but he was being transported by Daniel Sandoval in stretcher [facility] [id number] MAR & Discharge med list transmitted to [facility] via [employer] per [facility] request. [facility] [phone] Confirmed pickup katelynn e of 3 pm by transport company Daniel Zuniga at phone number . Location of facility drop off is [facility]. Facility notified via [employer], [facility] Tiffany Funes notified on secure chat. [facility] [phone] Transport requested in [employer]. Awaiting time confirmation. [facility] [phone] [facility] and was told that patient does have a guardian and to contact the guardian for Letter of Guardianship. Call to guardian, who said she will email to me the Letter of Guardianship. 3pm, did not find letter of guardianship in email, left voicemail for guardian to email and repeated email address [facility] [phone] Discharge order in E [facility] for return to [facility]- Msg sent to [facility]- Please send the discharge med list to [facility] Msg sent to [facility] to arrange transportation Time 3P and location [facility] no bariatric wt 264 Any lines or drains [facility] cot If the patient is going by cot, Reason- Psychiatric patient Post op- unsteady gait- safety concern Transportation time confirmed - scheduled for 3p Patient, legal guardian called- bedside nurse,community advocate and facility notified- [facility] BASIC METABOLIC PANELon 11-27 Anion gap [Moles/Vol] 8 mmol/L Normal 3-13 [facility] Comment on above: Performed By: #### L [id number] ####Retail Customer Service Specialist: SHERRIE WALTER ([phone])[address] Calcium [Mass/Vol] 8.6 mg/dL Normal 8.4-10.2 [facility] Comment on above: Performed By: #### L [id number] ####Retail Customer Service Specialist: SHERRIE WALTER ([phone])[address] Chloride [Moles/Vol] 103 mmol/L Normal 98-107 [facility] Comment on above: Performed By: #### L [id number] ####Retail Customer Service Specialist: SHERRIE WALTER ([phone])[facility])[address] [place] [address] CO2 [Moles/Vol] 27 mmol/L Normal 22-29 [facility] Comment on above: Performed By: #### L [id number] ####Retail Customer Service Specialist: SHERRIE WALTER ([phone])[address] Creatinine [Mass/Vol] 0.84 mg/dL Normal 0.72-1.25 [facility] Comment on above: Performed By: #### L [id number] ####Retail Customer Service Specialist: SHERRIE [phone])[facility])[address] [place] [address] GLOMERULAR FILTRATION RATE ML/MIN/1.73 SQ M.PREDICTED >90.0 Normal >60.0 [facility] Comment on above: Result Comment: Calc ulation based on the Chronic Kidney Disease Epidemiology Collaboration (CKD-EPI) equation refit without adjustment for race Performed By: #### L [id number] ####Retail Customer Service Specialist: SHERRIE WALTER ([phone])[facility])[address] [place] [address] Glucose [Mass/Vol] 271 mg/dL High 74-100 [facility] Comment on above: Performed By: #### L [id number] ####Retail Customer Service Specialist: SHERRIE WALTER ([phone])[address] Potassium [Moles/Vol] 4.0 mmol/L Normal 3.5-5.1 [facility] Comment on above: Result Comment: [facility] potassium values may be up to 0.5 mmol/L lower than serum values. Performed By: #### L [id number] ####Retail Customer Service Specialist: SHERRIE WALTER ([phone])[facility])[address] [place] [address] Sodium [Moles/Vol] 138 mmol/L Normal 136-145 [facility] Comment on above: Performed By: #### L [id number] ####Retail Customer Service Specialist: SHERRIE WALTER ([phone])[address] Urea nitrogen [Mass/Vol] 13 mg/dL Normal 8-21 [facility] Comment on above: Performed By: #### L [id number] ####Retail Customer Service Specialist: SHERRIE WALTER ([phone])[facility])[address] [place] [address] Bacteria identified Aer cx N om (Unsp spec)Ordered By: Makenna Combs on 12-06-2024 Gram Stain Result No polymorphonuclear leukocytes seen [facility] Gram Stain Result No organisms seen [facility] Basic metabolic 1998 panelon 12-06-2024 Anion gap [Moles/Vol] 8 mmol/L 3 - 13 mmol/L [facility] Calcium [Mass/Vol] 8.6 mg/dL 8.4 - 10. 2 mg/dL [facility] Chloride [Moles/Vol] 103 mmol/L 98 - 10 7 mmol/L [facility] CO2 [Moles/Vol] 27 mmol/L 22 - 29 mmol/L [facility] Creatinine [Mass/Vol] 0.84 mg/dL 0.72 - 1.25 mg/dL [facility] GFR/1.73 sq M.predicted (S/P/Bld) [Vol rate/Area] - PINF [facility] Comment on above: Calculation based on the Chronic Kidney Disease Epidemiology Collaboration (CKD-EPI) equation refit without adjustment for race Glucose [Mass/Vol] 271 mg/dL High 74 - 100 mg/dL [facility] Interpretation and review of laboratory results Abnormal [facility] Potassium [Moles/Vol] 4 mmol/L 3.5 - 5.1 mmol/L [facility] Comment on above: Plasma potassium yarely ues may be up to 0.5 mmol/L lower than serum values. Sodium [Moles/Vol] 138 mmol/L 136 - 145 mmol/L [facility] Urea nitrogen [Mass/Vol] 13 mg/dL 8 - 21 mg/dL [facility] CBC W Auto Differential pane l (Bld)on 12-06-2024 Basophils (Bld) [#/Vol] 0 10*3/uL 0.0 - 0.2 10*3/uL [facility] Basophils/100 WBC (Bld) 0.4 % 0.0 - 2.0 % [facility] Eosinophils (Bld) [#/Vol] 0.2 10*3/uL 0.0 - 0.5 10*3/uL [facility] Eosinophils/100 WBC (Bld) 2.9 % 0.0 - 6.0 % [facility] Erythrocyte distribution width (RBC) [Ratio] 12.9 % 11.5 - 15.0 % [facility] Hematocrit (Bld) [Volume fraction] 35.5 % Low 40.0 - 52.0 % [facility] Hemoglobin (Bld) [Mass/Vol] 12 g/dL Low 13.0 - 18.0 g/dL [facility] Immature granulocytes (Bld) [#/Vol] 0.1 10*3/uL High NINF - 0.1 10*3/uL [facility] Immature granulocytes/100 WBC (Bld) 0.8 % 0.0 - 2.0 % [facility] Interpretation and review of laboratory results Abnormal [facility] Lymphocytes (Bld) [#/Vol] 2.7 10*3/uL 1.0 - 4.3 10*3/uL [facility] Lymphocytes/100 WBC (Bld) 37.7 % 15.0 - 45.0 % [facility] MCH (RBC) [Entitic mass] 29.4 pg 26.0 - 34.0 pg [facility] MCHC (RBC) [Mass/Vol] 33.8 % 30.5 - 36.0 % [facility] MCV (RBC) [Entitic vol] 87 fL 77.0 - 99.0 fL [facility] Monocytes (Bld) [#/Vol] 0.5 10*3/uL 0.0 - 0.9 10*3/uL [facility] Monocytes/100 WBC (Bld) 7.4 % 5.0 - 13.0 % [facility] Neutrophils (Bld) [#/Vol] 3.6 10*3/uL 1.8 - 7.5 10*3/uL [facility] Neutrophils/100 WBC (Bld) 50.8 % 38.0 - 82.0 % [facility] Nucleated RBC/100 WBC (Bld) [Ratio] 0 % [facility] Platelet mean volume (Bld) [Entitic vol] 10.3 fL 9.0 - 12.7 fL [facility] Platelets (Bld) [#/Vol] 165 10*3/uL 140 - 440 10*3/uL [facility] RBC (Bld) [#/Vol] 4.08 10*6/uL Low 4.40 - 5.90 10*6/uL [facility] WBC (Bld) [#/Vol] 7.2 10*3/uL 3.6 - 10.7 10*3/uL [facility] CBC WITH AUTO DIFFERENTIALon 12-06-2024 Basophils (Bld) [#/Vol] 0.0 10*3/uL Normal 0.0-0.2 [facility] Comment on above: Performed By: #### L [id number] ####Retail Customer Service Specialist: SHERRIE WALTER ([phone])[facility])[address] [place] [address] Basophils/100 WBC (Bld) 0.4 % Normal 0.0-2.0 [facility] Comment on above: Performed By: #### L [id number] ####Retail Customer Service Specialist: SHERRIE WALTER ([phone])[facility])[address] [place] [address] Eosinophils (Bld) [#/Vol] 0.2 10*3/uL Normal 0.0-0.[address] [facility] Comment on above: Performed By: #### L [id number] ####Retail Customer Service Specialist: SHERRIE WALTER ([phone])[facility])[address] [place] [address] Eosinophils/100 WBC (Bld) 2.9 % Normal 0.0-6.[address] [facility] Comment on above: Performed By: #### L [id number] ####Retail Customer Service Specialist: SHERRIE WALTER ([phone])[facility])[address] [place] [address] Erythrocyte distribution width (RBC) [Ratio] 12.9 % Normal 11.5-15.[address] [facility] Comment on above: Performed By: #### L [id number] ####Retail Customer Service Specialist: SHERRIE WALTER ([phone])[facility])[address] [place] [address] Hematocrit (Bld) [Volume fraction] 35.5 % Low 40.0-52.[address] [facility] Comment on above: Performed By: #### L [id number] ####Retail Customer Service Specialist: SHERRIE WALTER ([phone])[facility])[address] [place] [address] Hemoglobin (Bld) [Mass/Vol] 12.0 g/dL Low 13.0-18.[address] [facility] Comment on above: Performed By: #### L [id number] ####Retail Customer Service Specialist: SHERRIE [phone])[facility] [place] [address] IMMATURE GRANS % 0.8 % Normal 0.0-2.0 [facility] Comment on above: Performed By: #### L [id number] ####Retail Customer Service Specialist: SHERRIE WALTER ([phone])[facility])[address] [place] [address] IMMATURE GRANS ABSOLUTE 0.1 10*3/uL High <0.[address] [facility] Comment on above: Performed By: #### L [id number] ####Retail Customer Service Specialist: SHERRIE WALTER ([phone])[facility])[address] [place] [address] Lymphocytes (Bld) [#/Vol] 2.7 10*3/uL Normal 1.0-4.[address] [facility] Comment on above: Performed By: #### L [id number] ####Retail Customer Service Specialist: SHERRIE WALTER ([phone])[facility])[address] [place] [address] Lymphocytes/100 WBC (Bld) 37.7 % Normal 15.0-45.[address] [facility] Comment on above: Performed By: #### L [id number] ####Retail Customer Service Specialist: SHERRIE WALTER ([phone])[facility])[address] [place] [address] MCH (RBC) [Entitic mass] 29.4 pg Normal 26.0-34.[address] [facility] Comment on above: Performed By: #### L [id number] ####Retail Customer Service Specialist: SHERRIE WALTER ([phone])[facility])[address] [place] [address] MCHC 33.8 % Normal 30.5-36.[address] [facility] Comment on above: Performed By: #### L [id number] ####Retail Customer Service Specialist: SHERRIE WALTER ([phone])[facility])[address] [place] [address] MCV (RBC) [Entitic vol] 87.0 fL Normal 77.0-99.0 S [facility]S Comment on above: Performed By: #### L [id number] ####Retail Customer Service Specialist: SHERRIE WALTER ([phone])[facility])[address] [place] [address] Monocytes (Bld) [#/Vol] 0.5 10*3/uL Normal 0.0-0.[address] [facility]S Comment on above: Performed By: #### L [id number] ####Retail Customer Service Specialist: SHERRIE WALTER ([phone])[facility] ([facility])[address] [place] [address] Monocytes/100 WBC (Bld) 7.4 % Normal 5.0-13.0 S [facility] Comment on above: Performed By: #### L [id number] ####Retail Customer Service Specialist: SHERRIE WALTER ([phone])[facility])[address] [place] [address] NEUTROPHILS ABSOLUTE 3.6 10*3/uL Normal 1.8-7.5 [facility]S Comment on above: Performed By: #### L [id number] ####Retail Customer Service Specialist: SHERRIE WALTER ([phone])[facility] ([facility])[address] [place] [address] Neutrophils/100 WBC (Bld) 50.8 % Normal 38.0-82.[address] [facility] Comment on above: Performed By: #### L [id number] ####Retail Customer Service Specialist: SHERRIE WALTER ([phone])[facility])[address] [place] [address] NRBC 0.0 /100 WBCs Normal 0.0-2.0 [facility]S Comment on above: Performed By: #### L [id number] ####Retail Customer Service Specialist: SHERRIE WALTER ([phone])[facility])[address] [place] [address] Platelet mean volume (Bld) [Entitic vol] 10.3 fL Normal 9.0-12.[address] [facility] Comment on above: Performed By: #### L [id number] ####Retail Customer Service Specialist: SHERRIE WALTER ([phone])[facility] ([facility])[address] [place] [address] Platelets (Bld) [#/Vol] 165 10*3/uL Normal 140-440 [facility] Comment on above: Performed By: #### L [id number] ####Retail Customer Service Specialist: SHERRIE WALTER ([phone])[facility] ([facility])[address] [place] [address] RBC (Bld) [#/Vol] 4.08 10*6/uL Low 4.40-5.90 [facility] Comment on above: Performed By: #### L [id number] ####Retail Customer Service Specialist: SHERRIE WALTER ([phone])[facility] ([facility])[address] [place] [address] WBC (Bld) [#/Vol] 7.2 10*3/uL Normal 3.6-10.7 [facility] Comment on above: Performed By: #### L [id number] ####Retail Customer Service Specialist: SHERRIE WALTER ([phone])[facility] ([facility])[address] [place] [address] Laboratory - Chemistry and C hemistry - challengeon 12-06-2024 Glucose [Mass/Vol] 186 mg/dL High 70 - 100 mg/dL [facility] Glucose [Mass/Vol] 210 mg/dL High 70 - 100 mg/dL [facility] Laboratory - Microbiology an d Antimicrobial susceptibilityOrdered By: Makenna Combs on 12-06-2024 Bacteria identified Aer cx Nom (Unsp spec) No growth at 72 hours [facility] No Panel InformationOrdered By: Noah Espino on 12-06-2024 Case Report Surgical Pathology Case: [id number] Authorizing Provider: Patti Durant MD Collected: 12/03/2024 0927 Ordering Location: [facility] MAIN OR Received: 12/03/2024 1146 Pathologist: Noah Espino MD Specimen: Leg, Right, right below knee amputation [facility] Work Phone: Clinical Information [id number] wNlx vrnBmKQCetZBpN2ShdhenTP vpUK4eLY7ujKbqrWEmhUBvK VDoJyYdf7ezo806dQVcm3hd IAGCCAsoNZFEFKj8vQrhU92 xf8O7KkrdZ7lfDEQcEYviOL OsPFpdbXWaGPr3JBEjeNDqm cFkAsLnAZIltPMvpTZ8HMEk XW7gkskwNUwiAVqjTDTtviZ 2OMLgmMUzP3ZuHTYiPB4lgi hjKKM9CXjbRJCiXZP2SrZkU PMhu3Xhpgi7RiHaoXRtBHez bGFpblxmczIwXGNmMSBEaXN naABnARPbc7HgiDV4NUWjxp FjdHVyZSBvZiBzaGFmdCBvZ eNecUtqgUQ0yVAjNLxir2Zv p6BqiSXnbBRddwNmhN43SZG qYf3nVXDom8ToHULkdrIkyG LlZGN5tLHrZY3wvmJtlL7bG GNmMCAgXHBhcn0= [facility] Work Phone: Disclaimer p3xzaCXlBXKxnZRcTjCp MDA wFOZmb5fpNKHxyFOuKoWxHk NcZnRuYmpcdWMxXGRlZmYwe 7han204tTDfv5cfHQChFbT5 qBRtBJUdW11cQJSGX354LZP gGXupz9emm0QbTWGqrEZpa4 Z6HQOICSgbIAVTUJw8kJcnS 28fb4G6HkcxW0gaNLReBFVs W1PpRV6yASHrEqh6DFJ9QCE 3UXSeGYQpZ0MsZC1vJNQcyY QsWBw1d5cyjGyvTXHzAWJ9w 6qfAIuoxwAgKQ6zjz0llIk3 s3yjlhHhOXCcERKtsYEKHWE pC2FkeQugKi5knCw5yObcLx zvHEU9Pds6XR4ajb89aei9l LfcIPTcnztyZeS9EPvzFCNl wlrdHWl9VXhsZXXahOZ3EAL oeYPqB5DqXQMfLL6rdmb0FX M5JNieEXBuOhQ5XQZkdSObW XSuiVvmMAukb890ZQJ6IgOe GH8uS2Nes1D1zA0phQZpOLF jtRDnXwMfOSEzvp2rjRSrEV kyz3TnJQG3vnW1lUNepPVaK QRqPZ39Iatjb0QmLwlmABR3 RMCronKcv2Qwk7btTdYeeuT mJ1dkM0AdFZJeIPMjZYGvCb VvqsOfw1Yot9GubBUheHj9s 9dqCZBsJLOheHybq4ogYAH5 JDSuX8Q3vVCyx2goHQxpRCC swWV1tgV1SGTpjTIsH4DvaD 4gBKIwRL4wlcn5b6alNYE0P DinBXFvRoS7xjS1GWXklBJo OEKjdMcjQIsmq510HCC5DrE tPJZtw1ThS0MukNhwL88mlO kjZ23nJDTwrAeyuL5atPjgi L9eThJpVlTrONaxzOiapGGq tfwlKTmlokG9LNkueyduSXM xNKnlO1pxQkShSMLcxNqjPU yvp6FxRNHaREDkKZJlXLceC 4vxlZ3zhlmhLWejAKWxtNdd p7zdTuIoiKY3TA7noiSgCLL hqKlpdyG7yxWjzGmzjP7fgA 8zeHkusA0lkTNsrOC9ztmmV GluIHNpdHUgaHlicmlkaXph bWgghvzlkZ6zCTB4iGCgBGO 6cPYyNVZdRKLzIIWwjC72zb 5keIDgfwVqC3XgI7NdvENkc IayFulmnXZerUYbXl9jwBMv BK0nEYPdzCOnQ2YsYZ3pFJX hclxwYXIgVGhlIHVzZSBvZi LkerUol9GwaE6gDNIsVJFxL L53jhXbiaV8zCNzINEshdHs dGVzdHMgaXMgcmVndWxhdGV vRFHzKQMzWLQuCKw1nCOeq9 RwD6annWNlqsDyH9ZhwNIpZ WSYON1bYEweu5DwbGDzrNZe r9IzRLBwPOPcdX6sEXZiWE3 sDGSsRYcyTHFdqyMxrx7vrr VtYSAkLTRiP6XyvyaucXmsg lMgBOLnut4nskPdZYX7YTFf ZSBjbGluaWNhbCBsYWJvcmF 9o0TlUIOio5NhL2GxbTLgZJ VcmNVpPLE9o5PhnI8bNQgep ZBePOLwMV3kfJIlFTTpQICs ZWFyZWQgYnkgdGhlIFVTIEZ av0VnUU7dBCSbjZsxTFLjbB 5nf5JrNNPlm92eRHIVVPiyV FRoZSBGREEgaGFzIGRldGVy bWluZWQgdGhhdCBzdWNoIGN yFRHqDS8vCQEjvaYeiROxn1 DczVRteiHap8PwciTrUOVgM VB1VeXpgTMxVBGonyIBuYsv vD2tiV7oy2IyzG9aVPhjktY jxEWsQp2qqIKkLO9vSJJagq FmZmluIGVtYmVkZGVkIHRpc 1F1CW1pKWRnet0nfouqwSXw bJ6moPYmqmVpCC8uGW0sY8F 1pETsECDyfmSrx0hdBQa0aO DlRLOrhJIhbNKlIkzkGVO9T ZDtAQM4gbWvctXnLOBwkPjh kYU0uXCdPEVaINDgMKCfKG1 1E9Zrs1LvU6poDW02DAZhJD IzDUBnnfQjy8qgWTHgw3ozR KNwdAPmY0UvJWUutULylxen DmBvLCR9UKFqFMV8bLRyQHU bS0JyfWOusCLjsO53TH4bmS K4PJ8aOYH4KRmkpB1rSlBLb B76qy5vbTH5i2TsJX6pH1Ol BYTfr5S6wjGwDAUeXV8dlIM iZWVuIHZhbGlkYXRlZCBvbi ChHKKdsOFsKsscUBT3lWIgf DZxKeBOIGY7eHHfTQAmp1Yn ZCBiZSBpbnRlcnByZXRlZCB 4kXKlRHHjbNVbx75bN3k8OD 2jrXfcIHDtaFVbETGpp0Lav UZfvDq1oJVkWlHtGOdyDJJt PIcvnQl8bXV1EK4vEIJxI7X qC6iwsMQcMUHnZFZxaFLtrf 5ccGFyfQ== [facility] Work Phone: Gross Description u7ibvCBbCOAcsTVmJPci Nlx orhHsUYGbqHWbV5UkjyyrVQ aoOW7zSJ4ozEwzzBQzpLLbC YKiLzPid1dmj826kNKjv9yw ITZIYEfxLXXLVEi8pXfxG90 eg5G3WwseM88anDNaESE3AX LvMPZslPZvPHXtCSD6WIDph VJcS5zgCQQgCG9fqtviDNrn PJziSXDqxPD4FPCsuAJbU6P nSRYkVCwqYSGkwqo7AjUqPo 9vdGVyeTcyMFxwYXJkXHBsY GnbASXvAdLcBqPnCLb5YLJf fT7tRd8mxUTkgP4bcWFhXEn zKOPcbejcyPLfMzCcl3xgk2 3vWOVgiYG7eSS1vK9sKePjg vPrLAItP6c6GRJinB19TDXr OHSrmqTwOICciPT2OSRqg63 fx4XqJ2vhIO6nhCdfxMQxHP KzsMBxqtUaIXTlaFBpip7mN JAeWzAhfHolo1QiFJTwf9Na dVibnvKfAVQrnZ6vjL2nyJN bwAKjAF0atHjuf8b0inUioc XmQxypH68hOsJsbPBuBHMwZ FGkWPhzQLQ2UWGtYF3tIIU4 yGBnTPzdQpLqoe8bXSUeBQJ gr1K5DDFmy3X9HEGcMCDmI8 Zhj72ylZEhM5htYJueQDVau W3kjJwhlbPzCmJ5nFEeSDFp bmQgZmlidWxhIHRoYXQgbWV yg1RjLCJwMrIcXZ8xKEFtB0 5zyP7swSBcV8NnOILxl8UfR VDvuaLwAEWanSBglzR8cfXt kQHrn9IzcZAjOWDHbJKxOGG yqvKtORSezgLaPy80fK9wXF CnFBPeWZKoky1ccJyrg0Wfa TzbYUklYd5sZWNpPPQkr1np TMvfXVsbN4h4pSahaNzplWS rfYQnGSKmLHIaw1gcWAShtl 8iGJZjBFKto1qhtrzjXDImh 8NeoMM7OU5rBBRfQJSxCRft XQz6OHzqQFmdy7HsnWpujH1 hYS5ojmafXqjrEzQcFLbenx UgYXJlIGZpdmUgZGlnaXRzI AwnNA02dCYhDQSdl7r2lBXf s2WdLDtwNPKdSOSkaQ6iHU2 gfFhiYbXcYAgaOERnv0StcG QbWTOmNWSzlPfflSk7AJrrn mJxmC7nTGgsf3JokHetWSRw QEOgQVEtWEVwMROaC6PmXCX kILL3bhZos1VynUvqIIPzjq MzNNCMuAQkjK0cl0miiPEvJ A37IPJly1YalLkhhUZhTCUb zXVuuOahlF0smUHuuT0sNAB pYmlhbCBhcnRlcnksIGFuZC Erb8HoFEbtmhZyHUZvmpPra mUgaWRlbnRpZmllZCBhbmQg TSwte0SnsUHuMIAlLCFxffC jrBGnco4ya9j5DWVsmgNhAP SoIHAnTXYwwVWrq4PoLlLuU XMuICBSZXByZXNlbnRhdGl2 ZPFjGJO1tI4zuyFoFcH7kKP ds5OqB5qrML9iYQDmQXM9Ih 3xxWNyGAYtnnKkq6jxt7usP mCuFXBmGDNvxJSfn1MtyWL0 hPBjGYQgD1Ppz65jo0Jtw30 pwYR3qOLzdHHfsrIlOEH3aI 6eUS9xhorcqcGkeFJ8KFJgD B5bUWGkLSEcDPAcbxWjLTJo DOPmJX7pMe8lHOYvDBCvr8v jk1FzOYCpapvbQZWsUY9aOP SePUcoFO07YR8dSDXrhnWfI AQ3QPEczWQyU6Roh5wmFgSb biBkZWNhbCwgNCAtIGEgcmV yhlXpRD58BDSmvnLkz7WgpJ fhoiHwOlOkz4vkIF4qCDKyh 3RqHJIyIDAsf2OqgACbPSIm ppIkscytjkG5sEXzNVjcXRS 4FEV6YRP8HO2lmA7lj1vpfR TvyI7rrERekT6gWUIbDgpjb LYhdcZqgstyKGuqLUKon0Sw vKQaTYDxq6EcVJuheoFjQGI ibb2xNKfvVDU6 [facility] Work Phone: Pathologist Interpretation Location [facility], [address] [place] [id number], CLIA: [id number]; Joint Commission: [id number] [id number]; CAP: [id number] [employer] Work Phone: Pathology report final diagnosis Narrative e0ugvTOdVVCxvTPqDUqoYos alcIwACXbyKVcY2DuiflqVU edUM8xRK2jnFqogPDelCJgE ZQpVgUae5swe094fKLcg5eg CHLTAWyxXZDHKBh8cZodU01 lf4C2GkozI05qeKFaWYY7EI SbELMcfMKnWJZtRHO8CDNqm TDaH5poWSZfJB2vkawuEJyc GZjiOUTqwCH9HCVgdZSdC7D qLZFvZGfyHNQzvrd0XsHzMs 9vdGVyeTcyMFxwYXJkXHBsY WluXGZzMjAgUklHSFQgTEVH LCBCRUxPVyBLTkVFIEFNUFV ISPGCM685UBsDPhKNZUENEG HVBiVYWKZDJl6KBIpAOYgpH yYNAZLKSeAwLr3OPM9FGXmP OiOUA4zrUZDerhJJGMNRHE6 KWA3OUSYVB2UNYHkGNaNXGr UgVklBQkxFLlxwYXJ9 [employer] Work Phone: [employer] Work Phone: No Panel Informationon 12-06 Interpretation and review of laboratory results Abnormal [facility] Performed by: [employer] [facility], [address] [place] [id number] CLIA ID: [id number] [facility] Interpretation and review of laboratory results Abnormal [facility] Performed by: [facility] [facility], [address] [place] [id number] CLIA ID: [id number] 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 Room/Bed: H-6130/H-6130 A Discharge Recommendation: IP Rehab Equipment Needed: No Prior Level of Function Prior Level of ADL Function: Independent Prior Level of Mobility: Independent; Device: Crutches Prior Level of Transfers: Independent Assessment Pt demos decreased balance, strength, and endurance. He requires min assist for transfers and ambulation. No PT goals met this session. Recommend IP Rehab at discharge. Subjective Pt is supine in the bed, agrees to PT. Pain: Rogers-Robles Pain Ratin = Hurts even more Pain Location: RLE Medical Precautions: No active isolations Proper PPE donned/doffed in accordance with facility standards. Fall Risk: San Fall Risk Score: 50 (High Risk) Precautions/Restriction s: Right LE Weight Bearing: NON-WEIGHTBEARING Lines/Drains/Airways: PIV, wound vac Fall Precautions Education on BKA positioning to prevent contractures Overall Cognitive Status: WFL Overall Orientation Status: Oriented to Place and Oriented to Person Family/Caregiver Present: none Objective Bed Mobility Supine to sit: SBA Sit to supine: SBA Rolling to left: SBA Scooting: SBA HOB Elevated Use of bed rail(s) Transfers/Mobility Sit to stand: Min Assist Stand to sit: Contact Guard Ambulation Ambulation 1 Assistive device(s) used: Front wheeled walker Assist level: Min Assist Distance (ft): 10 ft x 2 Balance During Session: Pt sat at EOB with supervision Pt stood at FWW with min assist Exercises Exercises Straight Leg Raise: BLE AROM Quad Sets: BLE AROM Heelslides: LLE AROM Gluteal Sets: BLE AROM Hip Flexion: BLE AROM Hip Abduction: BLE AROM Knee Long Arc Quad: BLE AROM Ankle Pumps: LLE AROM Plan Continue acute PT per plan of care. Safety/Education Safety Safety Devices in place: All fall risk precautions in place, call light within reach, left in bed, and no alarms engaged upon entry Restraints: No Education Education Given To: patient Education Provided: PT Role, PT Goals, Gait Training, Plan of Care, Transfer Training, and Discharge Recommendations Education Method: Verbal Barriers to Learning: None Education Outcome: Verbalized Understanding and Continued Education Needed Outcome Measures AM-PAC AM-PAC Inpatient Mobility Raw Score (No Stairs) : 16 JH-HLM -HLM Score: Walked 10 steps or more (i.e. walked to restroom) Goals Patient Stated Goal: to get stronger Encounter Problems Encounter Problems (Active) Mobility Patient will ambulate 50 feet with modified independence and least restrictive device in order to improve safety and independence with mobility. (Progressing) Start: 12/04/24 Expected End: 01/01/25 Pain - Adult Transfers Patient will perform bed mobility with independence in order to improve independence and prepare for out of bed mobility. (Progressing) Start: 12/04/24 Expected End: 01/01/25 Patient will complete functional transfer with least restrictive device with modified independence in order to prepare for ambulation. (Progressing) Start: 12/04/24 Expected End: 01/01/25 Therapy Time Individual Co-treatment Time In 1043 Time Out 1106 Minutes 23 Timed Code Treatment Minutes: (GT. TP) Kenyetta Chase PTA [facility] Progress Note Department of It Application Architect al Medicine Division of Endocrinology, Diabetes, & Metabolism Endocrinology Note Patient Name: Talia Ruby : 1980 AGE: 44 y.o. Room/Bed: [facility]30/[facility]30 A Admission Date: 12/02/2024 Visit Date: 12/06/2024 Reason for Endocrine Consult: uncontrolled DM Provider/Team Requesting Consult: Internal Medicine PCP: No primary care provider on file. Outpt Family Worker: No ASSESSMENT: Type 2 DM, uncontrolled Hyperglycemia secondary to corticosteroids Hypothyroidism S/p R BKA obesity PLAN: Increase Lantus 32 units qAM Increase Humalog 12 units AC with med dose correction scale AC ICU goal 140-180 GMF goal 100-180 POCT BG ACHS Hypoglycemia management per protocol Carb controlled diet Continue LT4 home dose 50 mcg/day ANTICIPATED ENDOCRINE HOME GOING RECOMMENDATIONS: Optimized for Discharge from Endocrine standpoint: YES Home Going Endocrine Rx Recommendations-- Recommend to be transferred to [facility] on current doses Lantus/Humalog. Discontinue glipizide. As outpatient can add metformin, GLP-1 agonist if no contraindications. Outpt Follow Up-- Needs to establish care with PCP SUBJECTIVE/HPI: Interim 12/06 No abd pain, n/v. Good appetite . POC glucose and insulin administration for last 24h reviewed. CHIEF COMPLAINT: patient admitted for R BKA No chief complaint on file. 44/M with background medical history noted below which includes Type 2 DM, obesity, , hypothyroidism, asthma, HTN, hyperlipidemia, MAXIMO, PTSD-admitted for elective R BKA. He is a resident of [facility]. He has had multiple surgeries on his R LE- with fractures to his right tibia and fibula-eventually with varus deformity. We are consulted for uncontrolled DM. He has had type 2 DM ~6-8 years. Managed by the physician at his facility. He reports being on a basal insulin but does not recall the name/dose. No recent YzV5t-ggui available is from 01/2024, 6.3%. Denies any known history of retinopathy, hx of photocoagulation, symptoms of peripheral neuropathy. No known CAD, PVD, CVA. Perioperatively, patient was also given dexamethasone 4 mg IV. Was patient's birthday yesterday-had cake also and no CHO restriction- POC glucose noted below >450-confirmatory lab glucose was 477 at 6pm. He received a total of 23 units of Humalog yesterday. BMP glucose at midnight 349, CO2 24, AG 9. No complaints currently-eating breakfast. Interim history Progress noted, no new complaints. Eating full shares. Reviewed POC glucose, insulin dosing, labs. Type of DM: Type 2 DM Onset of DM: ~2018 Home DM Medication Regimen: unrecalled basal insulin only DM control (last A1c/glucose data): 8% this admission -prior to this HbA1c 6.3% from 01/2024 Lab Results Component Value Date HGBA1C 8.0 (H) 2024 Glucose Date/Time Value Ref Range Status 12/06/2024 08:14 AM 210 (H) 70 - 100 mg/dL Final 12/05/2024 08:24 PM 198 (H) 70 - 100 mg/dL Final 12/05/2024 03:57 PM 230 (H) 70 - 100 mg/dL Final 12/05/2024 11:58 AM 240 (H) 70 - 100 mg/dL Final 12/05/2024 09:26 AM 232 (H) 70 - 100 mg/dL Final 12/05/2024 08:10 AM 227 (H) 70 - 100 mg/dL Final Review of Systems ROS negative except for those mentioned in HPI. OBJECTIVE: Vitals: 12/05/24 0924 12/05/24 1009 12/05/24 2136 12/06/24 0813 BP: 126/74 130/80 129/73 126/77 BP Location: Right arm Patient Position: Sitting Pulse: 68 67 72 80 Resp: 18 16 20 Temp: (!) 35.9 ?C (96.6 ?F) (!) 35.5 ?C (95.9 ?F) 36.3 ?C (97.3 ?F) 36.8 ?C (98.3 ?F) TempSrc: Temporal Temporal Temporal Temporal SpO2: 98% 98% 95% 94% Weight: Physical Exam Constitutional: Appearance: Normal appearance. He is obese. HENT: Head: Atraumatic. Cardiovascular: Rate and Rhythm: Normal rate and regular rhythm. Pulmonary: Effort: Pulmonary effort is normal. Abdominal: General: There is no distension. Tenderness: There is no abdominal tenderness. There is no guarding. Musculoskeletal: Cervical back: Neck supple. Left lower leg: No edema. Comments: R LE with dressing, recent BKA noted Neurological: General: No focal deficit present. Mental Status: He is alert. Psychiatric: Mood and Affect: Mood normal. Behavior: Behavior normal. 24 hour intake/output: Intake/Output Summary (Last 24 hours) at 12/06/2024 1108 Last data filed at 12/06/2024 0545 Gross per 24 hour Intake 2265 ml Output 2250 ml Net 15 ml Diet: Adult diet Regular; 3 carb choices (45 gm/meal) Medications (as per EMR): HomeMeds: Current Outpatient Medications Medication Instructions acetaminophen (TYLENOL EXTRA STRENGTH) 1,000 mg, Oral, Every 6 hours PRN aspirin 81 mg, Oral, Daily atorvastatin (LIPITOR) 20 mg, Nightly divalproex (DEPAKOTE) 500 mg, 2 times daily docusate sodium (COLACE) 100 mg, Oral, 2 times daily glimepiride (AMARYL) 4 mg, Daily with breakfast glipiZIDE (GLUCOTROL) 10 mg, 2 times daily before meals ipratropium-albuterol (Duo-N (more content not included)... Normal [facility] BASIC METABOLIC PANELon Anion gap [Moles/Vol] 10 mmol/L Normal 3-13 [facility] Comment on above: Performed By: #### L [id number] ####Retail Customer Service Specialist: SHERRIE WALTER ([phone])[facility] ([facility])[address] [place] [address] Calcium [Mass/Vol] 8.1 mg/dL Low 8.4-10.2 [facility] Comment on above: Performed By: #### L [id number] ####Retail Customer Service Specialist: SHERRIE WALTER ([phone])[facility] [place] [address] Chloride [Moles/Vol] 104 mmol/L Normal 98-107 [facility] Comment on above: Performed By: #### L [id number] ####Retail Customer Service Specialist: SHERRIE WALTER ([phone])[facility] ([facility])[address] [place] [address] CO2 [Moles/Vol] 26 mmol/L Normal 22-29 [facility] Comment on above: Performed By: #### L [id number] ####Retail Customer Service Specialist: SHERRIE WALTER ([phone])[facility] ([facility])[address] [place] [address] Creatinine [Mass/Vol] 0.89 mg/dL Normal 0.72-1.25 [facility] Comment on above: Performed By: #### L [id number] ####Retail Customer Service Specialist: SHERRIE WALTER ([phone])[facility])[address] [place] [address] GLOMERULAR FILTRATION RATE ML/MIN/1.73 SQ M.PREDICTED >90.0 Normal >60.0 [facility] Comment on above: Result Comment: Calc ulation based on the Chronic Kidney Disease Epidemiology Collaboration (CKD-EPI) equation refit without adjustment for race Performed By: #### L AB15 ####Retail Customer Service Specialist: SHERRIE WALTER ([phone])[facility] ([facility])[address] [place] [address] Glucose [Mass/Vol] 229 mg/dL High 74-100 [facility] Comment on above: Performed By: #### L AB15 ####Retail Customer Service Specialist: SHERRIE WALTER ([phone])[facility] ([facility])[address] [place] [address] Potassium [Moles/Vol] 3.9 mmol/L Normal 3.5-5.1 [facility] Comment on above: Result Comment: [facility] potassium values may be up to 0.5 mmol/L lower than serum values. Performed By: #### L [id number] ####Retail Customer Service Specialist: SHERRIE WALTER ([phone])[facility] [place] [address] Sodium [Moles/Vol] 140 mmol/L Normal 136-145 [facility] Comment on above: Performed By: #### L [id number] ####Retail Customer Service Specialist: SHERRIE WALTER ([phone])[facility] ([facility])[address] [place] [address] Urea nitrogen [Mass/Vol] 19 mg/dL Normal 8-21 [facility] Comment on above: Performed By: #### L [id number] ####Retail Customer Service Specialist: SHERRIE WALTER ([phone])[facility] ([facility])[address] [place] [address] Basic metabolic 1998 panelon 12-05-2024 Anion gap [Moles/Vol] 10 mmol/L 3 - 13 mmol/L [facility] Calcium [Mass/Vol] 8.1 mg/dL Low 8.4 - 10. 2 mg/dL [facility] Chloride [Moles/Vol] 104 mmol/L 98 - 10 7 mmol/L [facility] CO2 [Moles/Vol] 26 mmol/L 22 - 29 mmol/L [facility] Creatinine [Mass/Vol] 0.89 mg/dL 0.72 - 1.25 mg/dL [facility] GFR/1.73 sq M.predicted (S/P/Bld) [Vol rate/Area] - PINF [facility] Comment on above: Calculation based on the Chronic Kidney Disease Epidemiology Collaboration (CKD-EPI) equation refit without adjustment for race Glucose [Mass/Vol] 229 mg/dL High 74 - 100 mg/dL [facility] Interpretation and review of laboratory results Abnormal [facility] Potassium [Moles/Vol] 3.9 mmol/L 3.5 - 5.1 mmol/L [facility] Comment on above: Plasma potassium yarely ues may be up to 0.5 mmol/L lower than serum values. Sodium [Moles/Vol] 140 mmol/L 136 - 145 mmol/L [facility] Urea nitrogen [Mass/Vol] 19 mg/dL 8 - 21 mg/dL [facility] CBC W Auto Differential pane l (Bld)on 12-05-2024 Basophils (Bld) [#/Vol] 0 10*3/uL 0.0 - 0.2 10*3/uL [facility] Basophils/100 WBC (Bld) 0.3 % 0.0 - 2.0 % [facility] Eosinophils (Bld) [#/Vol] 0.1 10*3/uL 0.0 - 0.5 10*3/uL [facility] Eosinophils/100 WBC (Bld) 1.5 % 0.0 - 6.0 % [facility] Erythrocyte distribution width (RBC) [Ratio] 12.7 % 11.5 - 15.0 % [facility] Hematocrit (Bld) [Volume fraction] 33 % Low 40.0 - 52.0 % [facility] Hemoglobin (Bld) [Mass/Vol] 11.3 g/dL Low 13.0 - 18.0 g/dL [facility] Immature granulocytes (Bld) [#/Vol] 0.1 10*3/uL High NINF - 0.1 10*3/uL [facility] Immature granulocytes/100 WBC (Bld) 1.2 % 0.0 - 2.0 % [facility] Interpretation and review of laboratory results Abnormal [facility] Lymphocytes (Bld) [#/Vol] 3.3 10*3/uL 1.0 - 4.3 10*3/uL [facility] Lymphocytes/100 WBC (Bld) 41.9 % 15.0 - 45.0 % [facility] MCH (RBC) [Entitic mass] 30 pg 26.0 - 34.0 pg [facility] MCHC (RBC) [Mass/Vol] 34.2 % 30.5 - 36.0 % [facility] MCV (RBC) [Entitic vol] 87.5 fL 77.0 - 99.0 fL [facility] Monocytes (Bld) [#/Vol] 0.5 10*3/uL 0.0 - 0.9 10*3/uL [facility] Monocytes/100 WBC (Bld) 5.8 % 5.0 - 13.0 % [facility] Neutrophils (Bld) [#/Vol] 3.8 10*3/uL 1.8 - 7.5 10*3/uL [facility] Neutrophils/100 WBC (Bld) 49.3 % 38.0 - 82.0 % [facility] Nucleated RBC/100 WBC (Bld) [Ratio] 0 % [facility] Platelet mean volume (Bld) [Entitic vol] 10.9 fL 9.0 - 12.7 fL [facility] Platelets (Bld) [#/Vol] 141 10*3/uL 140 - 440 10*3/uL [facility] RBC (Bld) [#/Vol] 3.77 10*6/uL Low 4.40 - 5.90 10*6/uL [facility] WBC (Bld) [#/Vol] 7.8 10*3/uL 3.6 - 10.7 10*3/uL [facility] CBC WITH AUTO DIFFERENTIALon 12-05-2024 Basophils (Bld) [#/Vol] 0.0 10*3/uL Normal 0.0-0.[address] [facility] Comment on above: Performed By: #### L [id number] ####Retail Customer Service Specialist: SHERRIE WALTER ([phone])[facility])[address] [place] [address] Basophils/100 WBC (Bld) 0.3 % Normal 0.0-2.0 [facility] Comment on above: Performed By: #### L [id number] ####Retail Customer Service Specialist: SHERRIE WALTER ([phone])[facility] ([facility])[address] [place] [address] Eosinophils (Bld) [#/Vol] 0.1 10*3/uL Normal 0.0-0.[address] [facility] Comment on above: Performed By: #### L [id number] ####Retail Customer Service Specialist: SHERRIE WALTER ([phone])[facility] ([facility])[address] [place] [address] Eosinophils/100 WBC (Bld) 1.5 % Normal 0.0-6.[address] [facility] Comment on above: Performed By: #### L [id number] ####Retail Customer Service Specialist: SHERRIE WALTER ([phone])[facility])[address] [place] [address] Erythrocyte distribution width (RBC) [Ratio] 12.7 % Normal 11.5-15.[address] [facility] Comment on above: Performed By: #### L [id number] ####Retail Customer Service Specialist: SHERRIE WALTER ([phone])[facility])[address] [place] [address] Hematocrit (Bld) [Volume fraction] 33.0 % Low 40.0-52.[address] [facility] Comment on above: Performed By: #### L [id number] ####Retail Customer Service Specialist: SEHRRIE WALTER ([phone])[facility])[address] [place] [address] Hemoglobin (Bld) [Mass/Vol] 11.3 g/dL Low 13.0-18.[address] [facility] Comment on above: Performed By: #### L [id number] ####Retail Customer Service Specialist: SHERRIE WALTER ([phone])[facility])[address] [place] [address] IMMATURE GRANS % 1.2 % Normal 0.0-2.0 [facility] Comment on above: Performed By: #### L [id number] ####Retail Customer Service Specialist: SHERRIE WALTER ([phone])[facility])[address] [place] [address] IMMATURE GRANS ABSOLUTE 0.1 10*3/uL High <0.[address] [facility] Comment on above: Performed By: #### L [id number] ####Retail Customer Service Specialist: SHERRIE WALTER ([phone])[facility])[address] [place] [address] Lymphocytes (Bld) [#/Vol] 3.3 10*3/uL Normal 1.0-4.[address] [facility] Comment on above: Performed By: #### L [id number] ####Retail Customer Service Specialist: SHERRIE WALTER ([phone])[facility])[address] [place] [address] Lymphocytes/100 WBC (Bld) 41.9 % Normal 15.0-45.[address] [facility] Comment on above: Performed By: #### L [id number] ####Retail Customer Service Specialist: SHERRIE WALTER ([phone])[facility])[address] [place] [address] MCH (RBC) [Entitic mass] 30.0 pg Normal 26.0-34.[address] [facility] Comment on above: Performed By: #### L [id number] ####Retail Customer Service Specialist: SHERRIE WALTER ([phone])[facility])[address] [place] [address] MCHC 34.2 % Normal 30.5-36.[address] [facility] Comment on above: Performed By: #### L [id number] ####Retail Customer Service Specialist: SHERRIE WALTER ([phone])[facility])[address] [place] [address] MCV (RBC) [Entitic vol] 87.5 fL Normal 77.0-99.0 [facility] Comment on above: Performed By: #### L [id number] ####Retail Customer Service Specialist: SHERRIE WALTER ([phone])[facility])[address] [place] [address] Monocytes (Bld) [#/Vol] 0.5 10*3/uL Normal 0.0-0.[address] [facility] Comment on above: Performed By: #### L [id number] ####Retail Customer Service Specialist: SHERRIE WALTER ([phone])[facility])[address] [place] [address] Monocytes/100 WBC (Bld) 5.8 % Normal 5.0-13.0 [facility] Comment on above: Performed By: #### L [id number] ####Retail Customer Service Specialist: SHERRIE WALTER ([phone])[facility])[address] [place] [address] NEUTROPHILS ABSOLUTE 3.8 10*3/uL Normal 1.8-7.5 [facility] Comment on above: Performed By: #### L [id number] ####Retail Customer Service Specialist: SHERRIE WALTER ([phone])[facility] ([facility])[address] [place] [address] Neutrophils/100 WBC (Bld) 49.3 % Normal 38.0-82.0 [facility] Comment on above: Performed By: #### L [id number] ####Retail Customer Service Specialist: SHERRIE WALTER ([phone])[facility] ([facility])[address] [place] [address] NRBC 0.0 /100 WBCs Normal 0.0-2.0 [facility] Comment on above: Performed By: #### L [id number] ####Retail Customer Service Specialist: SHERRIE WALTER ([phone])[facility] ([facility])[address] [place] [address] Platelet mean volume (Bld) [Entitic vol] 10.9 fL Normal 9.0-12.7 [facility] Comment on above: Performed By: #### L [id number] ####Retail Customer Service Specialist: SHERRIE WALTER ([phone])[facility] ([facility])[address] [place] [address] Platelets (Bld) [#/Vol] 141 10*3/uL Normal 140-440 [facility] Comment on above: Performed By: #### L [id number] ####Retail Customer Service Specialist: SHERRIE WALTER ([phone])[facility] ([facility])[address] [place] [address] RBC (Bld) [#/Vol] 3.77 10*6/uL Low 4.40-5.90 [facility] Comment on above: Performed By: #### L [id number] ####Retail Customer Service Specialist: SHERRIE WALTER ([phone])[facility] ([facility])[address] [place] [address] WBC (Bld) [#/Vol] 7.8 10*3/uL Normal 3.6-10.7 [facility] Comment on above: Performed By: #### L [id number] ####Retail Customer Service Specialist: SHERRIE WALTER ([phone])[facility] ([facility])[address] [place] [address] ECG 12-LEADon 12-05-2024 ECG 12-LEAD IMPRESSION: Sinus rhythm Low voltage, precordial leads Minimal ST elevation, inferior leads Electronically Signed On 12-05-2024 10:35:43 EDT by Jennifer Bailon [facility] - Chemistry and C hemistry - challengeon 12-05-2024 Glucose [Mass/Vol] 198 mg/dL High 70 - 100 mg/dL [facility] Glucose [Mass/Vol] 230 mg/dL High 70 - 100 mg/dL [facility] Glucose [Mass/Vol] 240 mg/dL High 70 - 100 mg/dL [facility] Glucose [Mass/Vol] 232 mg/dL High 70 - 100 mg/dL [facility] Glucose [Mass/Vol] 227 mg/dL High 70 - 100 mg/dL [facility] No Panel Informationon 12-05 Interpretation and review of laboratory results Abnormal [facility] Performed by: [facility], [address] [place] [address] CLIA ID: [id number] [facility] Interpretation and review of laboratory results Abnormal [facility] Performed by: [facility], [address] [place] [address] CLIA ID: [id number] [facility] Interpretation and review of laboratory results Abnormal [facility] Performed by: [facility], [address] [place] [address] CLIA ID: [id number] [facility] Sinus rhythm Low voltage, precordial leads Minimal ST elevation, inferior leads Electronically Signed On 12-05-2024 10:35:43 EDT by Jennifer Severino MD - 12/05/2024 IMPRESSION: Sinus rhythm Low voltage, precordial leads Minimal ST elevation, inferior leads Electronically Signed On 12-05-2024 10:35:43 EDT by Jennifer Jimenez [facility] [employer] Interpretation and review of laboratory results Abnormal [facility] Performed by: [facility], [address] [place] [address] CLIA ID: [id number] [facility] [employer] Interpretation and review of laboratory results Abnormal [facility] Performed by: [facility], [address] [facility] [address] CLIA ID: [id number] [facility] No Panel InformationOrdered By: Jennifer Jimenez on 12-05-2024 P [place] 73 degrees [employer] Work Phone: SD Interval 183 ms [employer] Work Phone: QRS [place] 66 degrees [employer] Work Phone: QRSD Interval 81 ms [employer] Work Phone: QT Interval 380 ms [employer] Work Phone: QTC Interval 426 ms [facility] Work Phone: T Wave [place] 65 degrees [employer] Work Phone: IR [employer] Work Phone: Nursing Noteon 12-05-2024 Nursing Note Report received from Kartik Royal RN. Introduced myself to patient, patient briefly opened eyes and nodded. Patient Laying in bed eyes closed, respirations even and unlabored. Bed locked and at lowest position, call light within reach. Normal [facility] [employer] [facility] Progress Noteon 12-05-2024 Progress Note PHYSICAL THERAPY [facility] Treatment Note Name/MRN: Talia Ruby ([id number]) Date of : 1980 Age: 44 y.o. Room/Bed: H-6130/H-6130 A Discharge Recommendation: IP Rehab Equipment Needed: No Prior Level of Function Prior Level of ADL Function: Independent Prior Level of Mobility: Independent; Device: Crutches Prior Level of Transfers: Independent Assessment Pt presents with the listed deficits and decreased functional mobility. Bed Mobility demo'd SBA with use of bed features. Exercise performed to improve ROM and strength for future functional mobility. Demo'd BLE AROM. Pt limited by weakness, fatigue and RLE pain. PT goals progressing. Pt would benefit from continued skilled PT. Pt is motivated and able to tolerate 3 hours of therapy a day. Recommend IP Rehab at discharge. Subjective Pt supine, flat. Agreeable to there ex at EOB. Reports fatigue and pain. Pain: 0-10 pain scale: 8/10 Location: RLE Medical Precautions: No active isolations Proper PPE donned/doffed in accordance with facility standards. Fall Risk: San Fall Risk Score: 60 (High Risk) Precautions/Restriction s: Right LE Weight Bearing: Weight Bearing As Tolerated Lines/Drains/Airways: PIV, wound vac Fall Precautions Education on BKA positioning to prevent contractures Overall Cognitive Status: WFL Overall Orientation Status: Oriented x4 Family/Caregiver Present: none Objective Bed Mobility Supine to sit: SBA Sit to supine: SBA Scooting: SBA Assist with wound vac. Increased time and effort required to complete. HOB flat with use of bed rails. No cues for sequencing and initiation required. Required no physical assist. Denies dizziness. Rest break required once sitting EOB. Dyspnea noted with pursed lip breathing. Balance During Session: Posture: good Sitting - Static: Modified Independent Sitting - Dynamic: Supervision Exercises Exercises Straight Leg Raise: BLE AROM Quad Sets: BLE AROM Heelslides: LLE AROM Gluteal Sets: BLE AROM Hip Flexion: BLE AROM Hip Abduction: BLE AROM Hip Adduction: BLE AROM Knee Long Arc Quad: BLE AROM Ankle Pumps: LLE AROM Educated on LE Therapeutic Exercise to improve muscle strength and therefore improve ease with functional transfers. Instruction for proper technique and alignment. Cues for appropriate pace and focus on eccentric control. Rest breaks provided due to fatigue and audible breathing. Educated on benefits of performing exercise throughout the day. Recommend 2-3 sets of 5-10 reps, 2x daily. Plan Continue acute PT per plan of care. Safety/Education Safety Safety Devices in place: All fall risk precautions in place, call light within reach, left in bed, patient at risk for falls, nurse notified, and no alarms engaged upon entry Restraints: No Education Education Given To: patient Education Provided: PT Role, PT Goals, Plan of Care, Home Exercise Program, Precautions, Transfer Training, Energy Conservation, Fall Prevention Education, Discharge Recommendations, Benefits of Increasing Activity, and Breathing Techniques Education Method: Verbal, Demonstration, and Teach Back Barriers to Learning: None Education Outcome: Verbalized Understanding, Demonstrated Understanding, and Continued Education Needed Outcome Measures AM-PAC AM-PAC Inpatient Mobility Raw Score (No Stairs) : 16 JH-HLM JH-HLM Score: Sat at edge of bed Goals Patient Stated Goal: to get stronger Encounter Problems Encounter Problems (Active) Mobility Patient will ambulate 50 feet with modified independence and least restrictive device in order to improve safety and independence with mobility. (Not Addressed) Start: 12/04/24 Expected End: 01/01/25 Pain - Adult Transfers Patient will perform bed mobility with independence in order to improve independence and prepare for out of bed mobility. (Progressing) Start: 12/04/24 Expected End: 01/01/25 Patient will complete functional transfer with least restrictive device with modified independence in order to prepare for ambulation. (Not Addressed) Start: 12/04/24 Expected End: 01/01/25 Therapy Time Individual Co-treatment Time In 1440 Time Out 1451 Minutes 11 Timed Code Treatment Minutes: 11 Minutes (TP) GENERAL OPERATOR wore PPE in compliance with hospital guidelines and regulation when treating this patient. Nany Jackson PTA [facility] Progress Note PHYSICAL THERAPY [facility] Name/MRN: Talia Ruby ([id number]) Date: 12/05/2024 Chart review completed this date. PT attempted. RN reports pt eating breakfast at this time. Requests GENERAL OPERATOR return at a later time. PT will continue to follow. Will re-attempt another time/date as schedule permits. Nany Jackson PTA [facility] Progress Note Department of It [employer] al Medicine Division of Endocrinology, Diabetes, & Metabolism Endocrinology Note Patient Name: Talia Ruby : 1980 AGE: 44 y.o. Room/Bed: [facility] A Admission Date: 12/02/2024 Visit Date: 12/05/2024 Reason for Endocrine Consult: uncontrolled DM Provider/Team Requesting Consult: Internal Medicine PCP: No primary care provider on file. Outpt Family Worker: No ASSESSMENT: Type 2 DM, uncontrolled Hyperglycemia secondary to corticosteroids Hypothyroidism S/p R BKA obesity PLAN: Will use basal bolus insulin while he is here Adjust regimen to Lantus 26 units qAM Humalog 12 units AC with med dose correction scale AC ICU goal <180 GMF goal <150 POCT BG ACHS Hypoglycemia management per protocol Carb controlled diet Continue LT4 home dose 50 mcg/day ANTICIPATED ENDOCRINE HOME GOING RECOMMENDATIONS: Optimized for Discharge from Endocrine standpoint: No Home Going Endocrine Rx Recommendations-- Recommend do go home on Lantus/Humalog. Discontinue glipizide. As outpatient can add metformin, GLP-1 agonist if no contraindications. Outpt Follow Up-- Needs to establish care with PCP SUBJECTIVE/HPI: CHIEF COMPLAINT: patient admitted for R BKA No chief complaint on file. 44/M with background medical history noted below which includes Type 2 DM, obesity, , hypothyroidism, asthma, HTN, hyperlipidemia, MAXIMO, PTSD-admitted for elective R BKA. He is a resident of [facility]. He has had multiple surgeries on his R LE- with fractures to his right tibia and fibula-eventually with varus deformity. We are consulted for uncontrolled DM. He has had type 2 DM ~6-8 years. Managed by the physician at his facility. He reports being on a basal insulin but does not recall the name/dose. No recent [id number] available is from 01/2024, 6.3%. Denies any known history of retinopathy, hx of photocoagulation, symptoms of peripheral neuropathy. No known CAD, PVD, CVA. Perioperatively, patient was also given dexamethasone 4 mg IV. Was patient's birthday yesterday-had cake also and no CHO restriction- POC glucose noted below >450-confirmatory lab glucose was 477 at 6pm. He received a total of 23 units of Humalog yesterday. BMP glucose at midnight 349, CO2 24, AG 9. No complaints currently-eating breakfast. Interim history Progress noted, no new complaints. Eating full shares. Reviewed POC glucose, insulin dosing, labs. Type of DM: Type 2 DM Onset of DM: ~2018 Home DM Medication Regimen: unrecalled basal insulin only DM control (last A1c/glucose data): 8% this admission -prior to this HbA1c 6.3% from 01/2024 Lab Results Component Value Date HGBA1C 8.0 (H) 2024 Glucose Date/Time Value Ref Range Status 12/05/2024 08:10 AM 227 (H) 70 - 100 mg/dL Final 2024 08:08 PM 223 (H) 70 - 100 mg/dL Final 2024 04:12 PM 228 (H) 70 - 100 mg/dL Final 2024 12:23 PM 299 (H) 70 - 100 mg/dL Final 2024 07:47 AM 382 (H) 70 - 100 mg/dL Final 12/03/2024 08:00 PM >450 (H) 70 - 100 mg/dL Final Comment: Confirmation Drawn; Review of Systems ROS negative except for those mentioned in HPI. OBJECTIVE: Vitals: 12/04/24 1627 12/04/24201112/05/24 0809 12/05/24923 BP: 111/69 149/89 126/74 BP Location: Right arm Right arm Patient Position: Lying Sitting Pulse: 77 73 59 68 Resp: 19 14 18 Temp: 36.4 ?C (97.5 ?F) 36 ?C (96.8 ?F) (!) 35.9 ?C (96.6 ?F) TempSrc: Temporal Temporal Temporal SpO2: 97% 96% 97% 98% Weight: Physical Exam Constitutional: Appearance: Normal appearance. He is obese. HENT: Head: Atraumatic. Cardiovascular: Rate and Rhythm: Normal rate and regular rhythm. Pulmonary: Effort: Pulmonary effort is normal. Abdominal: General: There is no distension. Tenderness: There is no abdominal tenderness. There is no guarding. Musculoskeletal: Cervical back: Neck supple. Left lower leg: No edema. Comments: R LE with dressing, recent BKA noted Neurological: General: No focal deficit present. Mental Status: He is alert. Psychiatric: Mood and Affect: Mood normal. Behavior: Behavior normal. 24 hour intake/output: Intake/Output Summary (Last 24 hours) at 12/05/2024 09 Last data filed at 12/05/2024 0602 Gross per 24 hour Intake 800 ml Output 2150 ml Net -1350 ml Diet: Adult diet Regular; 3 carb choices (45 gm/meal) Medications (as per EMR): HomeMeds: Current Outpatient Medications Medication Instructions acetaminophen (TYLENOL EXTRA STRENGTH) 1,000 mg, Oral, Every 6 hours PRN aspirin 81 mg, Oral, Daily atorvastatin (LIPITOR) 20 mg, Nightly divalproex (DEPAKOTE) 500 mg, 2 times daily docusate sodium (COLACE) 100 mg, Oral, 2 times daily glimepiride (AMARYL) 4 mg, Daily with breakfast glipiZIDE (GLUCOTROL) 10 mg, 2 times daily before meals ipratropium-albuterol (Duo-Neb) 0.5-2.5 mg/3 mL nebulizer solution 3 mL, Nebulization, 3 times daily PRN levothyroxine ( (more content not included)... Normal [facility] Vital signsOrdered By: Jennifer Jimenez on 12-05-2024 Heart rate 75 /min bpm [facility] Work Phone: 30on 2024 30 Problem: Pain - Adul t Goal: Verbalizes/displays adequate comfort level or baseline comfort level Outcome: Progressing Problem: Safety - Adult Goal: Free from fall injury Outcome: Progressing Flowsheets (Taken 12/04/20242011) Free from fall injury: Instruct family/caregiver on patient safety Normal [facility] BASIC METABOLIC PANELon Anion gap [Moles/Vol] 9 mmol/L Normal 3-13 [facility] Comment on above: Performed By: #### L [id number] ####Retail Customer Service Specialist: SHERRIE WALTER ([phone])[address] Calcium [Mass/Vol] 8.9 mg/dL Normal 8.4-10.2 [facility] Comment on above: Performed By: #### L AB15 ####Retail Customer Service Specialist: SHERRIE WALTER ([phone])[facility])[address] [place] [address] Chloride [Moles/Vol] 99 mmol/L Normal 98-107 [facility] Comment on above: Performed By: #### L AB15 ####Retail Customer Service Specialist: SHERRIE [phone])[facility])[address] [place] [address] CO2 [Moles/Vol] 24 mmol/L Normal 22-29 [facility] Comment on above: Performed By: #### L AB15 ####Retail Customer Service Specialist: SHERRIE [phone])[facility])[address] [place] [address] Creatinine [Mass/Vol] 1.08 mg/dL Normal 0.72-1.25 [facility] Comment on above: Performed By: #### L AB15 ####Retail Customer Service Specialist: SHERRIE WALTER ([phone])[facility])[address] [place] [address] [place] GLOMERULAR FILTRATION RATE ML/MIN/1.73 SQ M.PREDICTED 86.2 mL/min/1.73m*2 Normal >60.0 [facility] Comment on above: Result Comment: Calc ulation based on the Chronic Kidney Disease Epidemiology Collaboration (CKD-EPI) equation refit without adjustment for race Performed By: #### L AB15 ####Retail Customer Service Specialist: SHERRIE WALTER ([phone])[facility])[address] [place] [address] Glucose [Mass/Vol] 349 mg/dL High 74-100 [facility] Comment on above: Performed By: #### L AB15 ####Retail Customer Service Specialist: SHERRIE WALTER ([phone])[facility])[address] [place] [address] Potassium [Moles/Vol] 4.3 mmol/L Normal 3.5-5.1 [facility] Comment on above: Result Comment: [facility] potassium values may be up to 0.5 mmol/L lower than serum values. Performed By: #### L AB15 ####Retail Customer Service Specialist: SHERRIE WALTER ([phone])[facility])[address] [place] [address] [place] Sodium [Moles/Vol] 132 mmol/L Low 136-145 [facility] Comment on above: Performed By: #### L AB15 ####Retail Customer Service Specialist: SHERRIE WALTER ([phone])[facility])[address] [place] [address] [place] Urea nitrogen [Mass/Vol] 19 mg/dL Normal 8-21 [facility] Comment on above: Performed By: #### L AB15 ####Retail Customer Service Specialist: SHERRIE [phone])[facility] ([facility])[address] [place] [address] Basic metabolic 1998 panelon 2024 Anion gap [Moles/Vol] 9 mmol/L 3 - 13 mmol/L [facility] Calcium [Mass/Vol] 8.9 mg/dL 8.4 - 10. 2 mg/dL [facility] Chloride [Moles/Vol] 99 mmol/L 98 - 10 7 mmol/L [facility] CO2 [Moles/Vol] 24 mmol/L 22 - 29 mmol/L [facility] Creatinine [Mass/Vol] 1.08 mg/dL 0.72 - 1.25 mg/dL [facility] GFR/1.73 sq M.predicted (S/P/Bld) [Vol rate/Area] 86.2 mL/min - PINF [facility] Comment on above: Calculation based on the Chronic Kidney Disease Epidemiology Collaboration (CKD-EPI) equation refit without adjustment for race Glucose [Mass/Vol] 349 mg/dL High 74 - 100 mg/dL [facility] Interpretation and review of laboratory results Abnormal [facility] Potassium [Moles/Vol] 4.3 mmol/L 3.5 - 5.1 mmol/L [facility] Comment on above: Plasma potassium yarely ues may be up to 0.5 mmol/L lower than serum values. Sodium [Moles/Vol] 132 mmol/L Low 136 - 145 mmol/L [facility] Urea nitrogen [Mass/Vol] 19 mg/dL 8 - 21 mg/dL [facility] CBC W Auto Differential pane l (Bld)on 2024 Basophils (Bld) [#/Vol] 0 10*3/uL 0.0 - 0.2 10*3/uL [facility] Basophils/100 WBC (Bld) 0.1 % 0.0 - 2.0 % [facility] Eosinophils (Bld) [#/Vol] 0 10*3/uL 0.0 - 0.5 10*3/uL [facility] Eosinophils/100 WBC (Bld) 0 % 0.0 - 6.0 % [facility] Erythrocyte distribution width (RBC) [Ratio] 12.5 % 11.5 - 15.0 % [facility] Hematocrit (Bld) [Volume fraction] 34.6 % Low 40.0 - 52.0 % [facility] Hemoglobin (Bld) [Mass/Vol] 12 g/dL Low 13.0 - 18.0 g/dL [facility] Immature granulocytes (Bld) [#/Vol] 0.1 10*3/uL High NINF - 0.1 10*3/uL [facility] Immature granulocytes/100 WBC (Bld) 0.6 % 0.0 - 2.0 % [facility] Interpretation and review of laboratory results Abnormal [facility] Lymphocytes (Bld) [#/Vol] 1.4 10*3/uL 1.0 - 4.3 10*3/uL [facility] Lymphocytes/100 WBC (Bld) 13.3 % Low 15.0 - 45.0 % [facility] MCH (RBC) [Entitic mass] 29.5 pg 26.0 - 34.0 pg [facility] MCHC (RBC) [Mass/Vol] 34.7 % 30.5 - 36.0 % [facility] MCV (RBC) [Entitic vol] 85 fL 77.0 - 99.0 fL [facility] Monocytes (Bld) [#/Vol] 0.7 10*3/uL 0.0 - 0.9 10*3/uL [facility] Monocytes/100 WBC (Bld) 6.3 % 5.0 - 13.0 % [facility] Neutrophils (Bld) [#/Vol] 8.3 10*3/uL High 1.8 - 7.5 10*3/uL [facility] Neutrophils/100 WBC (Bld) 79.7 % 38.0 - 82.0 % [facility] Nucleated RBC/100 WBC (Bld) [Ratio] 0 % [facility] Platelet mean volume (Bld) [Entitic vol] 10.5 fL 9.0 - 12.7 fL [facility] Platelets (Bld) [#/Vol] 190 10*3/uL 140 - 440 10*3/uL [facility] RBC (Bld) [#/Vol] 4.07 10*6/uL Low 4.40 - 5.90 10*6/uL [facility] WBC (Bld) [#/Vol] 10.4 10*3/uL 3.6 - 10.7 10*3/uL [facility] CBC WITH AUTO DIFFERENTIALon 2024 Basophils (Bld) [#/Vol] 0.0 10*3/uL Normal 0.0-0.[address] [facility] Comment on above: Performed By: #### L [id number] ####Retail Customer Service Specialist: SHERRIE WALTER ([phone])[facility])[address] [place] [address] Basophils/100 WBC (Bld) 0.1 % Normal 0.0-2.0 [facility] Comment on above: Performed By: #### L [id number] ####Retail Customer Service Specialist: SHERRIE WALTER ([phone])[facility] ([facility])[address] [place] [address] Eosinophils (Bld) [#/Vol] 0.0 10*3/uL Normal 0.0-0.[address] [facility] Comment on above: Performed By: #### L [id number] ####Retail Customer Service Specialist: SHERRIE WALTER ([phone])[facility])[address] [place] [address] Eosinophils/100 WBC (Bld) 0.0 % Normal 0.0-6.0 [facility] Comment on above: Performed By: #### L [id number] ####Retail Customer Service Specialist: SHERRIE WALTER ([phone])[facility])[address] [place] [address] Erythrocyte distribution width (RBC) [Ratio] 12.5 % Normal 11.5-15.0 [facility] Comment on above: Performed By: #### L [id number] ####Retail Customer Service Specialist: SHERRIE WALTER ([phone])[facility])[address] [place] [address] Hematocrit (Bld) [Volume fraction] 34.6 % Low 40.0-52.[address] [facility] Comment on above: Performed By: #### L [id number] ####Retail Customer Service Specialist: SHERRIE WALTER ([phone])[facility])[address] [place] [address] Hemoglobin (Bld) [Mass/Vol] 12.0 g/dL Low 13.0-18.[address] [facility] Comment on above: Performed By: #### L [id number] ####Retail Customer Service Specialist: SHERRIE WALTER ([phone])[facility])[address] [place] [address] IMMATURE GRANS % 0.6 % Normal 0.0-2.0 [facility] Comment on above: Performed By: #### L [id number] ####Retail Customer Service Specialist: SHERRIE WALTER ([phone])[facility])[address] [place] [address] IMMATURE GRANS ABSOLUTE 0.1 10*3/uL High <0.[address] [facility] Comment on above: Performed By: #### L [id number] ####Retail Customer Service Specialist: SHERRIE WALTER ([phone])[address] Lymphocytes (Bld) [#/Vol] 1.4 10*3/uL Normal 1.0-4.[address] [facility] Comment on above: Performed By: #### L [id number] ####Retail Customer Service Specialist: SHERRIE WALTER ([phone])[facility])[address] [place] [address] Lymphocytes/100 WBC (Bld) 13.3 % Low 15.0-45.[address] [facility] Comment on above: Performed By: #### L [id number] ####Retail Customer Service Specialist: SHERRIE WALTER ([phone])[address] MCH (RBC) [Entitic mass] 29.5 pg Normal 26.0-34.[address] [facility] Comment on above: Performed By: #### L [id number] ####Retail Customer Service Specialist: SHERRIE WALTER ([phone])[address] MCHC 34.7 % Normal 30.5-36.[address] [facility] Comment on above: Performed By: #### L [id number] ####Retail Customer Service Specialist: SHERRIE WALTER ([phone])[facility] ([facility])[address] [place] [address] MCV (RBC) [Entitic vol] 85.0 fL Normal 77.0-99.0 [facility] Comment on above: Performed By: #### L [id number] ####Retail Customer Service Specialist: SHERRIE WALTER ([phone])[facility] ([facility])[address] [place] [address] Monocytes (Bld) [#/Vol] 0.7 10*3/uL Normal 0.0-0.[address] [facility] Comment on above: Performed By: #### L [id number] ####Retail Customer Service Specialist: SHERRIE WALTER ([phone])[facility] ([facility])[address] [place] [address] Monocytes/100 WBC (Bld) 6.3 % Normal 5.0-13.0 [facility] Comment on above: Performed By: #### L [id number] ####Retail Customer Service Specialist: SHERRIE WALTER ([phone])[facility] ([facility])[address] [place] [address] NEUTROPHILS ABSOLUTE 8.3 10*3/uL High 1.8-7.5 [facility] Comment on above: Performed By: #### L [id number] ####Retail Customer Service Specialist: SHERRIE WALTER ([phone])[facility] ([facility])[address] [place] [address] Neutrophils/100 WBC (Bld) 79.7 % Normal 38.0-82.[address] [facility] Comment on above: Performed By: #### L [id number] ####Retail Customer Service Specialist: SHRERIE WALTER ([phone])[facility] ([facility])[address] [place] [address] NRBC 0.0 /100 WBCs Normal 0.0-2.0 [facility] Comment on above: Performed By: #### L [id number] ####Retail Customer Service Specialist: SHERRIE WALTER ([phone])[facility] ([facility])[address] [place] [address] Platelet mean volume (Bld) [Entitic vol] 10.5 fL Normal 9.0-12.7 [facility] Comment on above: Performed By: #### L [id number] ####Retail Customer Service Specialist: SHERRIE WALTER ([phone])[facility] ([facility])[address] [place] [address] Platelets (Bld) [#/Vol] 190 10*3/uL Normal 140-440 [facility] Comment on above: Performed By: #### L [id number] ####Retail Customer Service Specialist: SHERRIE WALTER ([phone])[facility] ([facility])[address] [place] [address] RBC (Bld) [#/Vol] 4.07 10*6/uL Low 4.40-5.90 [facility] Comment on above: Performed By: #### L [id number] ####Retail Customer Service Specialist: SHERRIE WALTER ([phone])[facility] ([facility])[address] [place] [address] WBC (Bld) [#/Vol] 10.4 10*3/uL Normal 3.6-10.7 [facility] Comment on above: Performed By: #### L [id number] ####Retail Customer Service Specialist: SHERRIE WALTER ([phone])[facility])[address] [place] [address] Consulton 2024 Consult PAGING: The Acute Pa in Service providers are available exclusively via [employer] SECURE CHAT. [facility] does not utilize pagers. 2024 Discharge Recommendations: Percocet 1-2 tablets po q6-8hr prn for mod / severe pain Robaxin 1000mg PO q8h prn for muscle spasms Pt declined Gabapentin, feels it made his pain worse in the past Stool softeners Pain Management Adjuvants: 0700 --> 0700 12/03/24 Scheduled APAP Gabapentin Lidocaine patches PRN Hydromorphone IV 1.5mg Methocarbamol Oxycodone 40mg Assessment / Pain Management Plan: Recommendations made, will sign off at this time. Thank you for inviting us to participate in the care of this patient. Acute Postsurgical RLE pain Multimodal pain regimen: BLOCK: popliteal 12/03/24 Continue Acetaminophen 1g po 3x daily scheduled ATC. Liver enzymes WNL Pt declined Gabapentin, feels it made his pain worse in the past Continue Methocarbamol 1g po q8h for muscle spasms Continue Oxycodone 5 - 10 mg po q4h prn moderate to severe breakthrough pain. Continue Hydromorphone 0.25 mg - 0.5 mg IVP q4h prn moderate to severe breakthrough pain. Please utilize oral medications first. Continue Naloxone 0.4 mg IVP prn opioid reversal. PRN if respiratory rate is less than 6/min and patient is difficult to arouse then notify physician STAT. Mix 9 mL of sodium chloride 0.9% with 0.4 mg (1 mL) of naloxone (NARCAN) in 10 mL syringe. (Note: dilution is 0.04 mg/mL) Give 0.08 mg (2 mL of special dilution), slow IV push, repeat up to 0.4 mg (10 mL) or until patient is responsive to physical stimulation and respiratory rate is equal to or greater than 6 breaths/min. Continue to observe, if no response within 3 minutes of administration of 0.4 mg (10 mL) total, repeat dose (0.4 mg as administered previously). 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 Patient's Medications have been reviewed. PMH reviewed below Opioid Use, Acute Reviewed and educated patient on responsible use of opioids: after surgery, it can be normal to experience pain. If it is mild and you can move about without great difficulty or discomfort, you may not need to take pain medication. It is very important to take your pain medication only as needed. Avoiding excessive or unnecessary medication, will enable you to progress your activity each day to improve your muscle tone and movement, deep breathing, digestion, circulation and your body's ability to heal itself. OARRS reviewed for past two years. (No opiates RX filled) No scripts, lives in facility Takes NSAIDs at facility Constipation At risk for opioid induced constipation Patient currently receiving opioids for pain management necessitating a bowel regimen. Recommend initiating scheduled Sennakot-S 8.6/50mg, 1 tablet PO BID. Would also recommend Milk of Magnesia 400mg/5ml, administer 30mL by mouth daily PRN. Plan discussed with patient who appears to understand and agrees. Chief Complaint: R BKA HPI: We have been asked to see this 44 y.o. male for postoperative pain management s/p R BKA 12/03/24 Reviewed xr tib fib 11/25/24 MARIELENA, no pages. On arrival, pt sitting in bedside chair. Eating lunch. RLE pain is sharp, right through the bone. Pain meds work when he gets them, not lasting that long. Didn't know he had to ask for IV pain meds. Reviewed pain meds available to him. Does not take chronic pain meds. Does not want gabapentin, feels it made his nerve pain worse in the past. Tolerating diet. Denies f/c, cp, sob, n/v/d Patient educated on pain regimen, aware that oxycodone po, hydromorphone IV, methocarbamol are PRN and patient must ask for these medications when needed. Educated patient to utilize oral pain medications as first line and reserve IV pain medications for severe breakthrough pain. Pt is realistic about pain control: Not all pain will be taken away, but pain should be tolerable/manageable with current regimen. Pt instructed to have staff page APS if pain becomes uncontrolled when utilizing present regimen. Pt agreeable, denies further questions. Pain Location: RLE Aggravating Factors: Moving Sedation score: 1: Awake and alert Pain Severity: 5 on scale of 1-10 Pain Quality: sharp Alleviating Factors: Rest/Pain medications Past Medical History: Past Medical History: No date: Asthma No date: Bipolar disorder (HCC) No date: Diabetes mellitus (HCC) No date: ETOH abuse No date: HTN (hypertension) No date: Hyperlipidemia No date: MAXIMO on CPAP No date: PTSD (post-traumatic stress disorder) Comment: 2/2 witness suicide as a child No date: T2DM (type 2 diabetes mellitus) (HCC) No date: Tobacco abuse Past Surgical History: Past Surgical History: No date: (more content not included)... [facility] Consult Department of It Application Architect al Medicine Division of Endocrinology, Diabetes, & Metabolism Endocrinology Note Patient Name: Talia Ruby : 1980 AGE: 44 y.o. Room/Bed: [facility] A Admission Date: 12/02/2024 Visit Date: 2024 Reason for Endocrine Consult: uncontrolled DM Provider/Team Requesting Consult: Internal Medicine PCP: No primary care provider on file. Outpt Family Worker: No ASSESSMENT: Type 2 DM, uncontrolled Hyperglycemia secondary to corticosteroids Hypothyroidism S/p R BKA obesity PLAN: Will use basal bolus insulin while he is here Start Lantus 26 units qAM Humalog 10 units AC with med dose correction scale AC Update HbA1c Add CHO modifier to diet ICU goal <180 GMF goal <150 POCT BG ACHS Hypoglycemia management per protocol Carb controlled diet Continue LT4 home dose 50 mcg/day ANTICIPATED ENDOCRINE HOME GOING RECOMMENDATIONS: Optimized for Discharge from Endocrine standpoint: No Home Going Endocrine Rx Recommendations-- Recommend do go home on Lantus/Humalog. Discontinue glipizide. As outpatient can add metformin, GLP-1 agonist if no contraindications. Outpt Follow Up-- Needs to establish care with PCP SUBJECTIVE/HPI: CHIEF COMPLAINT: patient admitted for R BKA No chief complaint on file. 44/M with background medical history noted below which includes Type 2 DM, obesity, , hypothyroidism, asthma, HTN, hyperlipidemia, MAXIMO, PTSD-admitted for elective R BKA. He is a resident of [facility]. He has had multiple surgeries on his R LE- with fractures to his right tibia and fibula-eventually with varus deformity. We are consulted for uncontrolled DM. He has had type 2 DM ~6-8 years. Managed by the physician at his facility. He reports being on a basal insulin but does not recall the name/dose. No recent [id number] available is from 01/2024, 6.3%. Denies any known history of retinopathy, hx of photocoagulation, symptoms of peripheral neuropathy. No known CAD, PVD, CVA. Perioperatively, patient was also given dexamethasone 4 mg IV. Was patient's birthday yesterday-had cake also and no CHO restriction- POC glucose noted below >450-confirmatory lab glucose was 477 at 6pm. He received a total of 23 units of Humalog yesterday. BMP glucose at midnight 349, CO2 24, AG 9. No complaints currently-eating breakfast. Type of DM: Type 2 DM Onset of DM: ~2018 Home DM Medication Regimen: unrecalled basal insulin only DM control (last A1c/glucose data): 8% this admission -prior to this HbA1c 6.3% from 01/2024 Lab Results Component Value Date HGBA1C 8.0 (H) 2024 Glucose Date/Time Value Ref Range Status 12/03/2024 08:00 PM >450 (H) 70 - 100 mg/dL Final Comment: Confirmation Drawn; 12/03/2024 05:57 PM >450 (H) 70 - 100 mg/dL Final Comment: Repeated Test; 12/03/2024 05:55 PM >450 (H) 70 - 100 mg/dL Final Comment: Caregiver Notified; 12/03/2024 01:06 PM 309 (H) 70 - 100 mg/dL Final 12/03/2024 10:53 AM 246 (H) 70 - 100 mg/dL Final 12/03/2024 08:10 AM 226 (H) 70 - 100 mg/dL Final Review of Systems ROS negative except for those mentioned in HPI. OBJECTIVE: Vitals: 12/03/24 1145 12/03/24 1218 12/03/24 1758 12/03/242001 BP: 135/69 124/73 108/76 128/85 BP Location: Left arm Patient Position: Sitting Pulse: 68 71 95 96 Resp: 15 18 18 Temp: 36.2 ?C (97.2 ?F) 36.3 ?C (97.4 ?F) 36.4 ?C (97.6 ?F) TempSrc: Temporal Temporal Temporal SpO2: 97% 97% 97% 95% Weight: Physical Exam Constitutional: Appearance: Normal appearance. He is obese. HENT: Head: Atraumatic. Eyes: Conjunctiva/sclera: Conjunctivae normal. Cardiovascular: Rate and Rhythm: Normal rate and regular rhythm. Pulmonary: Effort: Pulmonary effort is normal. Breath sounds: Normal breath sounds. Abdominal: General: There is no distension. Palpations: Abdomen is soft. Tenderness: There is no abdominal tenderness. There is no guarding. Musculoskeletal: Cervical back: Neck supple. Left lower leg: No edema. Comments: R LE with dressing, recent BKA noted Neurological: General: No focal deficit present. Mental Status: He is alert and oriented to person, place, and time. Psychiatric: Mood and Affect: Mood normal. Behavior: Behavior normal. Judgment: Judgment normal. 24 hour intake/output: Intake/Output Summary (Last 24 hours) at 2024 0724 Last data filed at 12/03/20242001 Gross per 24 hour Intake 710 ml Output 1150 ml Net -440 ml Diet: Adult diet Regular; 3 carb choices (45 gm/meal) Medications (as per EMR): HomeMeds: Current Outpatient Medications Medication Instructions acetaminophen (TYLENOL EXTRA STRENGTH) 1,000 mg, Oral, Every 6 hours PRN aspirin 81 mg, Oral, Daily atorvastatin (LIPITOR) 20 mg, Nightly divalproex (DEPAKOTE) 500 mg, 2 times daily glimepiride (AMARYL) 4 mg, Daily with breakfast glipiZIDE (GLUCOTROL) 10 mg, 2 times daily before meals ipratropium-albuterol (Duo-Neb) (more content not included)... Normal [facility] HEMOGLOBIN A1Con 2024 Glucose [Mass/Vol] 183 mg/dL Normal [facility] Comment on above: Result Comment: PETE Reddy COMMENTS: HbA1c values of 5.7-6.4 percent indicate an increased risk for developing diabetes mellitus. HbA1c values greater than or equal to 6.5 percent are diagnostic of diabetes mellitus. For diagnosis of diabetes in individuals without unequivocal hyperglycemia, results should be confirmed by repeat testing. Performed By: #### L [id number] ####Retail Customer Service Specialist: SHERRIE WALTER ([phone])[facility] ([facility])[address] [place] [address] HEMOGLOBIN A1C 8.0 %HbA1C High <5.7 [facility] Comment on above: Result Comment: Norm al less than 5.7% Prediabetes 5.7% to 6.4% Diabetes 6.5% or higher --HgbA1C levels may not be accurate in patients who have renal disease, received recent blood transfusions, are anemic, or who have dyshemoglobinemia. Performed By: #### L [id number] ####Retail Customer Service Specialist: SHERRIE WALTER ([phone])[facility] ([facility])[address] [place] [address] Laboratory - Chemistry and C hemistry - challengeon 2024 Glucose [Mass/Vol] 223 mg/dL High 70 - 100 mg/dL [facility] Glucose [Mass/Vol] 228 mg/dL High 70 - 100 mg/dL [facility] Glucose [Mass/Vol] 299 mg/dL High 70 - 100 mg/dL [facility] Glucose [Mass/Vol] 382 mg/dL High 70 - 100 mg/dL [facility] Average glucose Estimated from glycated hemoglobin (Bld) [Mass/Vol] 183 mg/dL [facility] Laboratory - Hematology and Cell countson 2024 HbA1c (Bld) [Mass fraction] 8 % High NINF [facility] Comment on above: Normal less than 5.7 % Prediabetes 5.7% to 6.4% Diabetes 6.5% or higher --HgbA1C levels may not be accurate in patients who have renal disease, received recent blood transfusions, are anemic, or who have dyshemoglobinemia. No Panel Informationon 12-04 Interpretation and review of laboratory results Abnormal [facility] Performed by: [facility], [address] [place], [place] [id number] CLIA ID: [id number] [facility] Interpretation and review of laboratory results Abnormal [facility] Performed by: [facility], [address] [place] [id number] CLIA ID: [id number] [facility] Interpretation and review of laboratory results Abnormal [facility] Performed by: [facility], [address] [place] [id number] CLIA ID: [id number] [facility] Interpretation and review of laboratory results Abnormal [facility] Performed by: [facility], [address] [place] [id number] CLIA ID: [id number] [facility] Interpretation and review of laboratory results Abnormal [facility] HbA1c values of 5.7- 6.4 percent indicate an increased risk for developing diabetes mellitus. HbA1c values greater than or equal to 6.5 percent are diagnostic of diabetes mellitus. For diagnosis of diabetes in individuals without unequivocal hyperglycemia, results should be confirmed by repeat testing. [facility] Progress Noteon 2024 Progress Note Nutrition rescreen completed. Chart reviewed. Patient to be monitored and followed by the diet template reproduction technician. MARYANN Guzmán [facility] [phone] 12-03-2024 [phone] Called patient's leg al guardian to discuss discharge plan. Voice mail left with call back info. Anticipate return to [facility]. [facility] [phone] SW consulted 12/02/24 by NADIYA Davenport- routine consult. EMR reviewed. Patient in hospital from [facility]. Unit CM following for return. Chart identified patient has legal guardian. CINDY communicated with Admission's Coordinator at [facility]/Erinn Martínez and then with guardian rep from [facility]/Jaci Cordova. Per guardian, guardianship is out of [facility] [address]. Obtained Letters of Guardianship (see below). CINDY confirmed with guardian, ca plan is for patient to return to [facility] at ca. Obtained additional contacts for guardian (home phone and email) and added to emergency contact section. Updated EMR to show active guardianship status. [facility] [phone] Case management cons ult noted. Will follow for transitional care and discharge planning needs. Chart reviewed. Noted patient is from [facility]. Will speak with him and make sure he is okay with returning. [facility] BASIC METABOLIC PANELon -0 Anion gap [Moles/Vol] 6 mmol/L Normal 3-13 [facility] Comment on above: Performed By: #### L AB15 ####Retail Customer Service Specialist: SHERRIE WALTER ([phone])[facility] ([facility])[address] [place] [address] Calcium [Mass/Vol] 8.9 mg/dL Normal 8.4-10.2 [facility] Comment on above: Performed By: #### L AB15 ####Retail Customer Service Specialist: SHERRIE WALTER ([phone])[facility] ([facility])[address] [place] [address] Chloride [Moles/Vol] 101 mmol/L Normal 98-107 [facility] Comment on above: Performed By: #### L AB15 ####Retail Customer Service Specialist: SHERRIE WALTER ([phone])[facility] ([facility])[address] [place] [address] CO2 [Moles/Vol] 27 mmol/L Normal 22-29 [facility] Comment on above: Performed By: #### L AB15 ####Retail Customer Service Specialist: SHERRIE WALTER ([phone])[facility])[address] [place] [address] Creatinine [Mass/Vol] 0.91 mg/dL Normal 0.72-1.25 [facility] Comment on above: Performed By: #### L AB15 ####Retail Customer Service Specialist: SHERRIE WALTER ([phone])[facility])[address] [place] [address] GLOMERULAR FILTRATION RATE ML/MIN/1.73 SQ M.PREDICTED >90.0 Normal >60.0 [facility] Comment on above: Result Comment: Calc ulation based on the Chronic Kidney Disease Epidemiology Collaboration (CKD-EPI) equation refit without adjustment for race Performed By: #### L [id number] ####Retail Customer Service Specialist: SHERRIE WALTER ([phone])[facility])[address] [place] [address] Glucose [Mass/Vol] 296 mg/dL High 74-100 [facility] Comment on above: Performed By: #### L AB15 ####Retail Customer Service Specialist: SHERRIE WALTER ([phone])[facility])[address] [place] [address] Potassium [Moles/Vol] 4.0 mmol/L Normal 3.5-5.1 [facility] Comment on above: Result Comment: [facility] potassium values may be up to 0.5 mmol/L lower than serum values. Performed By: #### L AB15 ####Retail Customer Service Specialist: SHERRIE WALTER ([phone])[facility] [place] [address] Sodium [Moles/Vol] 134 mmol/L Low 136-[address] [facility] Comment on above: Performed By: #### L [id number] ####Retail Customer Service Specialist: SHERRIE WALTER ([phone])[facility] ([facility])[address] [place] [address] Urea nitrogen [Mass/Vol] 17 mg/dL Normal 8-[address] [facility] Comment on above: Performed By: #### L [id number] ####Retail Customer Service Specialist: SHERRIE WALTER ([phone])[facility] ([facility])[address] [place] [address] Basic metabolic 1998 panelon 12-03-2024 Anion gap [Moles/Vol] 6 mmol/L 3 - 13 mmol/L [facility] Calcium [Mass/Vol] 8.9 mg/dL 8.4 - 10. 2 mg/dL [facility] Chloride [Moles/Vol] 101 mmol/L 98 - 10 7 mmol/L [facility] CO2 [Moles/Vol] 27 mmol/L 22 - 29 mmol/L [facility] Creatinine [Mass/Vol] 0.91 mg/dL 0.72 - 1.25 mg/dL [facility] GFR/1.73 sq M.predicted (S/P/Bld) [Vol rate/Area] - PINF [facility] Comment on above: Calculation based on the Chronic Kidney Disease Epidemiology Collaboration (CKD-EPI) equation refit without adjustment for race Glucose [Mass/Vol] 296 mg/dL High 74 - 100 mg/dL [facility] Interpretation and review of laboratory results Abnormal [facility] Potassium [Moles/Vol] 4 mmol/L 3.5 - 5.1 mmol/L [facility] Comment on above: Plasma potassium yarely ues may be up to 0.5 mmol/L lower than serum values. Sodium [Moles/Vol] 134 mmol/L Low 136 - 145 mmol/L [facility] Urea nitrogen [Mass/Vol] 17 mg/dL 8 - 21 mg/dL [facility] CBC W Auto Differential pane l (Bld)on 12-03-2024 Basophils (Bld) [#/Vol] 0 10*3/uL 0.0 - 0.2 10*3/uL [facility] Basophils/100 WBC (Bld) 0.1 % 0.0 - 2.0 % [facility] Eosinophils (Bld) [#/Vol] 0.2 10*3/uL 0.0 - 0.5 10*3/uL [facility] Eosinophils/100 WBC (Bld) 3.1 % 0.0 - 6.0 % [facility] Erythrocyte distribution width (RBC) [Ratio] 12.6 % 11.5 - 15.0 % [facility] Hematocrit (Bld) [Volume fraction] 38.4 % Low 40.0 - 52.0 % [facility] Hemoglobin (Bld) [Mass/Vol] 13.3 g/dL 13.0 - 18.0 g/dL [facility] Immature granulocytes (Bld) [#/Vol] 0 10*3/uL NINF - 0.1 10*3/uL [facility] Immature granulocytes/100 WBC (Bld) 0.6 % 0.0 - 2.0 % [facility] Interpretation and review of laboratory results Abnormal [facility] Lymphocytes (Bld) [#/Vol] 3 10*3/uL 1.0 - 4.3 10*3/uL [facility] Lymphocytes/100 WBC (Bld) 42.1 % 15.0 - 45.0 % [facility] MCH (RBC) [Entitic mass] 29.3 pg 26.0 - 34.0 pg [facility] MCHC (RBC) [Mass/Vol] 34.6 % 30.5 - 36.0 % [facility] MCV (RBC) [Entitic vol] 84.6 fL 77.0 - 99.0 fL [facility] Monocytes (Bld) [#/Vol] 0.5 10*3/uL 0.0 - 0.9 10*3/uL [facility] Monocytes/100 WBC (Bld) 7.4 % 5.0 - 13.0 % [facility] Neutrophils (Bld) [#/Vol] 3.3 10*3/uL 1.8 - 7.5 10*3/uL [facility] Neutrophils/100 WBC (Bld) 46.7 % 38.0 - 82.0 % [facility] Nucleated RBC/100 WBC (Bld) [Ratio] 0 % [facility] Platelet mean volume (Bld) [Entitic vol] 10.5 fL 9.0 - 12.7 fL [facility] Platelets (Bld) [#/Vol] 162 10*3/uL 140 - 440 10*3/uL [facility] RBC (Bld) [#/Vol] 4.54 10*6/uL 4.40 - 5.90 10*6/uL [facility] WBC (Bld) [#/Vol] 7.1 10*3/uL 3.6 - 10.7 10*3/uL [facility] CBC WITH AUTO DIFFERENTIALon 12-03-2024 Basophils (Bld) [#/Vol] 0.0 10*3/uL Normal 0.0-0.2 [facility] Comment on above: Performed By: #### L [id number] ####Retail Customer Service Specialist: SHERRIE WALTER ([phone])[facility])[address] [place] [address] Basophils/100 WBC (Bld) 0.1 % Normal 0.0-2.0 [facility] Comment on above: Performed By: #### L [id number] ####Retail Customer Service Specialist: SHERRIE WALTER ([phone])[facility])[address] [place] [address] Eosinophils (Bld) [#/Vol] 0.2 10*3/uL Normal 0.0-0.5 [facility] Comment on above: Performed By: #### L [id number] ####Retail Customer Service Specialist: SHERRIE WALTER ([phone])[facility])[address] [place] [address] Eosinophils/100 WBC (Bld) 3.1 % Normal 0.0-6.[address] [facility] Comment on above: Performed By: #### L [id number] ####Retail Customer Service Specialist: SHERRIE WALTER ([phone])[facility])[address] [place] [address] Erythrocyte distribution width (RBC) [Ratio] 12.6 % Normal 11.5-15.[address] [facility] Comment on above: Performed By: #### L [id number] ####Retail Customer Service Specialist: SHERRIE WALTER ([phone])[facility])[address] [place] [address] Hematocrit (Bld) [Volume fraction] 38.4 % Low 40.0-52.[address] [facility] Comment on above: Performed By: #### L [id number] ####Retail Customer Service Specialist: SHERRIE WALTER ([phone])[facility])[address] [place] [address] Hemoglobin (Bld) [Mass/Vol] 13.3 g/dL Normal 13.0-18.[address] [facility] Comment on above: Performed By: #### L [id number] ####Retail Customer Service Specialist: SHERRIE WALTER ([phone])[facility])[address] [place] [address] IMMATURE GRANS % 0.6 % Normal 0.0-2.0 [facility] Comment on above: Performed By: #### L [id number] ####Retail Customer Service Specialist: SHERRIE WALTER ([phone])[facility])[address] [place] [address] IMMATURE GRANS ABSOLUTE 0.0 10*3/uL Normal <0.[address] [facility] Comment on above: Performed By: #### L [id number] ####Retail Customer Service Specialist: SHERRIE WALTER ([phone])[facility])[address] [place] [address] Lymphocytes (Bld) [#/Vol] 3.0 10*3/uL Normal 1.0-4.[address] [facility] Comment on above: Performed By: #### L [id number] ####Retail Customer Service Specialist: SHERRIE WALTER ([phone])[facility])[address] [place] [address] Lymphocytes/100 WBC (Bld) 42.1 % Normal 15.0-45.[address] [facility] Comment on above: Performed By: #### L [id number] ####Retail Customer Service Specialist: SHERRIE WALTER ([phone])[facility] [place] [address] MCH (RBC) [Entitic mass] 29.3 pg Normal 26.0-34.[address] [facility] Comment on above: Performed By: #### L [id number] ####Retail Customer Service Specialist: SHERRIE WALTER ([phone])[facility])[address] [place] [address] MCHC 34.6 % Normal 30.5-36.[address] [facility] Comment on above: Performed By: #### L [id number] ####Retail Customer Service Specialist: SHERRIE WALTER ([phone])[facility])[address] [place] [address] MCV (RBC) [Entitic vol] 84.6 fL Normal 77.0-99.0 [facility] Comment on above: Performed By: #### L [id number] ####Retail Customer Service Specialist: SHERRIE WALTER ([phone])[facility])[address] [place] [address] Monocytes (Bld) [#/Vol] 0.5 10*3/uL Normal 0.0-0.[address] [facility] Comment on above: Performed By: #### L [id number] ####Retail Customer Service Specialist: SHERRIE WALTER ([phone])[facility])[address] [place] [address] Monocytes/100 WBC (Bld) 7.4 % Normal 5.0-13.0 [facility] Comment on above: Performed By: #### L [id number] ####Retail Customer Service Specialist: SHERRIE WALTER ([phone])[facility])[address] [place] [address] NEUTROPHILS ABSOLUTE 3.3 10*3/uL Normal 1.8-7.5 [facility] Comment on above: Performed By: #### L [id number] ####Retail Customer Service Specialist: SHERRIE WALTER ([phone])[facility])[address] [place] [address] Neutrophils/100 WBC (Bld) 46.7 % Normal 38.0-82.0 [facility] Comment on above: Performed By: #### L [id number] ####Retail Customer Service Specialist: SHERRIE WALTER ([phone])[facility])[address] [place] [address] NRBC 0.0 /100 WBCs Normal 0.0-2.0 [facility] Comment on above: Performed By: #### L [id number] ####Retail Customer Service Specialist: SHERRIE WALTER ([phone])[facility] ([facility])[address] [place] [address] Platelet mean volume (Bld) [Entitic vol] 10.5 fL Normal 9.0-12.7 [facility] Comment on above: Performed By: #### L [id number] ####Retail Customer Service Specialist: SHERRIE WALTER ([phone])[facility] ([facility])[address] [place] [address] Platelets (Bld) [#/Vol] 162 10*3/uL Normal 140-440 [facility] Comment on above: Performed By: #### L [id number] ####Retail Customer Service Specialist: SHERRIE WALTER ([phone])[facility] ([facility])[address] [place] [address] RBC (Bld) [#/Vol] 4.54 10*6/uL Normal 4.40-5.90 [facility] Comment on above: Performed By: #### L [id number] ####Retail Customer Service Specialist: SHERRIE WALTER ([phone])[facility] ([facility])[address] [place] [address] WBC (Bld) [#/Vol] 7.1 10*3/uL Normal 3.6-10.7 [facility] Comment on above: Performed By: #### L [id number] ####Retail Customer Service Specialist: SHERRIE WALTER ([phone])[facility])[address] [place] [address] CULTURE ANAEROBICon 12-04-19 25 CULTURE ANAEROBIC ANAEROBIC CULTURE Reference No growth at 5 days [ S = SUSCEPTIBLE R = RESISTANT I = INTERMEDIATE S-DD = Susceptible-dose dependent NS = Non-susceptible NO = No Interpretation ] Normal [facility] Comment on above: Order Comment: Pre-o p diagnosis:S82.231K Performed By: #### L [id number] ####Retail Customer Service Specialist: SHERRIE WALTER ([phone])[facility])[address] [place] [address] CULTURE, AEROBIC BACTERIA WI TH GRAM STAINon 12-03-2024 CULTURE, AEROBIC BACTERIA WITH GRAM STAIN CULTURE Reference No growth at 72 hours GRAM STAIN RESULT Reference No polymorphonuclear leukocytes seen No organisms seen [ S = SUSCEPTIBLE R = RESISTANT I = INTERMEDIATE S-DD = Susceptible-dose dependent NS = Non-susceptible NO = No Interpretation ] Normal [facility] Comment on above: Order Comment: Pre-o p diagnosis: S82.231K Performed By: #### L [id number] #### Retail Customer Service Specialist: SHERRIE WALTER ([phone]) [facility]) [address] [place] [address] [place] FUNGAL CULTUREon 12-03-2024 FUNGAL CULTURE FUNGAL CULTURE Reference No fungus isolated after 21 days [ S = SUSCEPTIBLE R = RESISTANT I = INTERMEDIATE S-DD = Susceptible-dose dependent NS = Non-susceptible NO = No Interpretation ] Normal [facility] Comment on above: Order Comment: Pre-o p diagnosis:S82.231K Performed By: #### L [id number] ####Retail Customer Service Specialist: SHERRIE WALTER ([phone])[facility])[address] [place] [address] [place] GLUCOSE, RANDOMon 12-03-2024 Glucose [Mass/Vol] 477 mg/dL Critically high 74-100 [facility] Comment on above: Result Comment: ORDE R COMMENTS: A normal fasting glucose concentration is less than 100 mg/dL. An impaired fasting glucose concentration is 100-125 mg/dL. A provisional diagnosis of diabetes mellitus can be made when a fasting glucose concentration is greater than 125 mg/dL. Performed By: #### L [id number] #### Retail Customer Service Specialist: SHERRIE WALTER ([phone]) [facility]) [address] [place] [address] [place] Glucose (Bld) [Mass/Vol]on 0 12-03-2024 Glucose [Mass/Vol] 477 mg/dL Critically high 74 - 1 00 mg/dL [facility] Interpretation and review of laboratory results Abnormal [facility] A normal fasting glucose concentration is less than 100 mg/dL. An impaired fasting glucose concentration is 100-125 mg/dL. A provisional diagnosis of diabetes mellitus can be made when a fasting glucose concentration is greater than 125 mg/dL. [facility] - Chemistry and C hemistry - challengeon 12-03-2024 Glucose [Mass/Vol] mg/dL High 70 - 100 mg/dL [facility] Comment on above: Confirmation Drawn; Glucose [Mass/Vol] mg/dL High 70 - 100 mg/dL [facility] Comment on above: Repeated Test; Glucose [Mass/Vol] mg/dL High 70 - 100 mg/dL [facility] Comment on above: Caregiver Notified; Glucose [Mass/Vol] 309 mg/dL High 70 - 100 mg/dL [facility] Glucose [Mass/Vol] 246 mg/dL High 70 - 100 mg/dL [facility] Glucose [Mass/Vol] 226 mg/dL High 70 - 100 mg/dL [facility] No Panel Informationon 12-03 Interpretation and review of laboratory results Abnormal [facility] Performed by: [facility], [address] [place] [address] CLIA ID: [id number] [facility] Interpretation and review of laboratory results Abnormal [facility] Performed by: [facility], [address] [place] [address] CLIA ID: [id number] [facility] Interpretation and review of laboratory results Abnormal [facility] Performed by: [facility], [address] [place] [id number] CLIA ID: [id number] [facility] Interpretation and review of laboratory results Abnormal [facility] Performed by: [facility], [address] [place] [id number] CLIA ID: [id number] [facility] Interpretation and review of laboratory results Abnormal [facility] Performed by: [facility], [address] [place] [address] CLIA ID: [id number] [facility] Interpretation and review of laboratory results Abnormal [facility] Performed by: [facility], [address] [place], [place] [id number] CLIA ID: [id number] [facility] Nursing Noteon 12-03-2024 Nursing Note Patient's family updated by RN that patient is doing well and will be returning to his room within the hour. Normal [facility] Nursing Note Pt prepped for OR; unable to access periop board - notified appropriate people. Normal [facility] Op Noteon 12-03-2024 Op Note Pre-operative Diagnosis: Right tibia nonunion, fibula malnunion Post-operative Diagnosis: Same Procedure: Right Below Knee Amputation (CPT 91146) Components used: NA Anesthesia: general and regional Surgeon: Carleen Assistants: Chelsea Estimated Blood Loss: 200ml Complications: None Medications: 2g Ancef was given after intraoperative cultures were obtained Specimens: Right Leg Operative findings: No signs of infection the level of amputation. The muscle was normal in color and contractility at the level of the amputation. History of present illness: Talia is a 44 y.o. 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 After a long discussion of multiple surgical options including nonunion deformity surgeries versus amputation the patient ultimately decided to proceed with a below knee amputation. Despite the risks of surgery which had been discussed in detail Talia consented to proceed. Operative report: I met with Talia in the preoperative area prior to the procedure and discussed the surgical plan once again and answered all of his questions related to the procedure and the expected post-operative course. The risks of surgery were discussed including but not limited to the risks of medications given for surgery, the risk of blood loss during and after surgery that can lead to the need for blood products in certain situations, infection, damage to normal structures that can lead to longterm problems of pain or dysfunction, wound healing complications, and late or chronic pain were also discussed. The possible need for a more proximal amputation was discussed in the setting of a non-healing wound or infection. In addition potentially life threatening complications at the time of surgery and after surgery were discussed including but not limited to deep vein thrombosis, pulmonary embolism, myocardial infarction, stroke and . I initialed his Right lower extremity and signed his consent form. he was brought to the operating room and placed in the supine position on the Operating Room table. Care was taken to identify and pad all bony prominences. A general anesthetic was then given by the anesthesia staff and an endotracheal tube was placed by the anesthesia staff. At all times during the operative procedure the patient's head neck and airway were protected by the anesthesia staff. A tourniquet was applied to the Right proximal thigh over cast padding.The Right lower extremity was then prepped and draped in the usual orthopedic sterile fashion. A surgical timeout was then performed with the patient's identification, the procedure to be performed being reviewed, verification that the patient had received preoperative antibiotics, and verification of the correct surgical side. This timeout was performed by myself, the circulating room nurse and the anesthesia staff. The patient's ASA was verified by the nurse litigation attorney associate and the anesthesia staff. Fire risk was assessed. The Right lower extremity was elevated for exsanguination and the tourniquet was inflated. An incision was made over the anterior leg 15 cm distal to the knee joint line. The incision was extended over both the medial and lateral halves of the leg to a point midway between the anterior and posterior aspects of the leg. The incision was carefully made to avoid and resect the patient's prior muscle flap in order to minimize any risk of poor vascular supply to his skin due to the flap. The saphenous vein was identified medially and it was ligated with #1 surgilon and divided. The saphenous nerve was pulled distally, cut proximally and allowed to retract into the proximal leg. At this midway point the incision was curved distally down the leg and gradually posteriorly until the medial and lateral incisions met over the achilles tendon posteriorly. The achilles was divided transversely at this level distally. The anterior compartment of the leg was dissected proximally and the anterior tibial artery and vein were tied off using #1 surgilon stick tie sutures and divided. The deep peroneal nerve was pulled distally cut proximally and was allowed to retract into the proximal leg. The tibia and fibula were then circumferentially exposed. The fibula was cut 1 cm proximal to the planned tibial cut with a small oscillating saw. The tibia was then cut with a large oscillating saw. The leg was then flexed through the amputation site and an amputation knife was used to remove the leg through the deep posterior compartment. The leg was then passed off the table and sent for pathologic evaluation. The anterior aspect of the tibia was then chamffered using an oscillating saw and a rasp was used to round off all bone edges. No sharp edges remained. All bone cuts with the saws throughout the case we (more content not included)... [facility] Progress Noteon 12-03-2024 Progress Note OCCUPATIONAL THERAPY [facility] Name/MRN: Talia Ruby ([id number]) Date: 12/03/2024 Hold OT ritu pt is in the OR for BKA. Will continue to follow as schedule permits. Tamara Day, PONCHO [facility] Progress Note Hospital Medicine Consult Patient - Talia Ruby, Age - 44 y.o. - 1980 Room Number - [id number]/[id number] A Consulting - Patti Durant MD Primary Care Physician - [facility] file[id number] Date of Admission - 12/02/2024 12:00 PM Hospital Day - 1 Reason for Consult: Medical Management HISTORY OF PRESENT ILLNESS: Talia is a 44 y.o. male pmhx of obesity, bipolar disorder, MAXIMO noncompliant with CPAP, bronchial asthma, diet-controlled diabetes mellitus, hyperlipidemia, hypothyroidism, chronic smoking history, PTSD, left middle finger MCP joint septic arthritis with MSSA, insomnia presented to [facility] for elective right below the knee amputation scheduled for 12/03/2024. [facility] consulted for medical management. Ortho planning for right BKA. Preoperative hemoglobin 13.3 Past Medical History: Past Medical History: Diagnosis Date Asthma Bipolar disorder (HCC) Diabetes mellitus (HCC) ETOH abuse HTN (hypertension) Hyperlipidemia MAXIMO on CPAP PTSD (post-traumatic stress disorder) 2/2 witness suicide as a child T2DM (type 2 diabetes mellitus) (HCC) Tobacco abuse Past Surgical History: Past Surgical History: Procedure Laterality Date FRACTURE SURGERY Right leg, s/p bone graft OTHER SURGICAL HISTORY 02/25/2024 IRRIGATION AND DEBRIDEMENT HAND AND LONG FINGER METACARPOPHALANGEAL JOINT - Left Medications: Scheduled PRN atorvastatin, 20 mg, Oral, Nightly insulin lispro, 0-6 Units, SubCUTAneous, TID WC And insulin lispro, 0-6 Units, SubCUTAneous, Nightly levothyroxine, 50 mcg, Oral, qAM AC melatonin, 5 mg, Oral, Nightly sennosides, 2 tablet, Oral, Nightly Or Senna, 10 mL, Oral, Nightly sodium chloride 0.9%, 5-40 mL, IntraVENous, q12h PRN medications: acetaminophen, dextrose, dextrose, glucagon (rDNA), glucose, HYDROmorphone OR HYDROmorphone, ibuprofen OR ibuprofen, ipratropium-albuterol, naloxone, nicotine polacrilex, ondansetron ODT OR ondansetron, oxyCODONE OR oxyCODONE, polyethylene glycol (PEG) 3350, sodium chloride, sodium chloride 0.9%, traZODone Continuous sodium chloride, 100 mL/hr, Last Rate: 100 mL/hr (12/03/24 0608) Allergies: Haldol [haloperidol], Metformin, and Risperdal [risperidone] Social History: Social History Socioeconomic History Marital status: Single Spouse name: Not on file Number of children: Not on file Years of education: Not on file Highest education level: Not on file Occupational History Not on file Tobacco Use Smoking status: Every Day Smokeless tobacco: Not on file Substance and Sexual Activity Alcohol use: Yes Drug use: Yes Types: Marijuana Sexual activity: Not on file Other Topics Concern Not on file Social History Narrative Not on file Social Drivers of Health Financial Resource Strain: Low Risk (05/19/2023) Received from [facility] Overall Financial Resource Strain (CARDIA) Difficulty of Paying Living Expenses: Not very hard Food Insecurity: Food Insecurity Present (12/29/2023) Received from [facility] Hunger Vital Sign Worried About Running Out of Food in the Last Year: Sometimes true Ran Out of Food in the Last Year: Never true Transportation Needs: No Transportation Needs (12/29/2023) Received from [facility] - Transportation Lack of Transportation (Medical): No Lack of Transportation (Non-Medical): No Physical Activity: Insufficiently Active (05/19/2023) Received from [facility] Exercise Vital Sign Days of Exercise per Week: 2 days Minutes of Exercise per Session: 10 min Stress: Stress Concern Present (05/19/2023) Received from [facility] of Occupational Health - Occupational Stress Questionnaire Feeling of Stress : To some extent Social Connections: Unknown (05/19/2023) [facility] Social Connection and Isolation Panel [NHANES] Frequency of Communication with Friends and Family: More than three times a week Frequency of Social Gatherings with Friends and Family: Three times a week Attends Uatsdin Services: Not on file Active Member of Clubs or Organizations: Not on file Attends Club or Organization Meetings: More than 4 times per year Marital Status: Never Intimate Partner Violence: Unknown (02/25/2024) Humiliation, Afraid, Rape, and Kick questionnaire Fear of Current or Ex-Partner: No Emotionally Abused: No Physically Abused: Not on file Sexually Abused: Not on file Housing Stability: High Risk (12/29/2023) Re[facility] Housing Stability Vital Sign Unable to Pay for Housing in the Last Year: Yes Number of Places Lived in the Last Year: Not on file Unstable Housing in the Last Year: Yes Family History: Family History Problem Relation Name Age of Onset Bipolar disorder Oth (more content not included)... Normal [facility] Progress Note PHYSICAL THERAPY [facility] Name/MRN: Talia Ruby ([id number]) Date: 12/03/2024 PT held this date. Plan is for OR today on 12/03. PT will re-attempt post op. Plan is for Rt BKA. Anselmo Thomas, PT [facility] Progress Note APS consult acknowledged. To OR 12/03/24. Formal consult to follow 12/04/24. Normal [facility] BASIC METABOLIC PANELon 03-0 Anion gap [Moles/Vol] 5 mmol/L Normal 3-13 [facility] Comment on above: Performed By: #### L AB15, [id number] ####Retail Customer Service Specialist: SHERRIE WALTER ([phone])[facility] ([address] Calcium [Mass/Vol] 9.3 mg/dL Normal 8.4-10.2 [facility] Comment on above: Performed By: #### L AB15, [id number] ####Retail Customer Service Specialist: SHERRIE WALTER ([phone])[facility] ([facility])[address] [place] [address] Chloride [Moles/Vol] 101 mmol/L Normal 98-107 [facility] Comment on above: Performed By: #### L AB15, [id number] ####Retail Customer Service Specialist: SHERRIE WALTER ([phone])[facility])[address] [place] [address] CO2 [Moles/Vol] 27 mmol/L Normal 22-29 [facility] Comment on above: Performed By: #### L AB15, [id number] ####Retail Customer Service Specialist: SHERRIE WALTER ([phone])[facility])[address] [place] [address] Creatinine [Mass/Vol] 1.01 mg/dL Normal 0.72-1.25 [facility] Comment on above: Performed By: #### L AB15, [id number] ####Retail Customer Service Specialist: SHERRIE WALTER ([phone])[facility] ([facility])[address] [place] [address] GLOMERULAR FILTRATION RATE ML/MIN/1.73 SQ M.PREDICTED >90.0 Normal >60.0 [facility] Comment on above: Result Comment: Calc ulation based on the Chronic Kidney Disease Epidemiology Collaboration (CKD-EPI) equation refit without adjustment for race Performed By: #### L AB15, [id number] ####Retail Customer Service Specialist: SHERRIE WALTER ([phone])[facility] ([facility])[address] [place] [address] Glucose [Mass/Vol] 277 mg/dL High 74-100 [facility] Comment on above: Performed By: #### L AB15, [id number] ####Retail Customer Service Specialist: SHERRIE WALTER ([phone])[facility])[address] [place] [address] Potassium [Moles/Vol] 4.1 mmol/L Normal 3.5-5.1 [facility] Comment on above: Result Comment: [facility] potassium values may be up to 0.5 mmol/L lower than serum values. Performed By: #### L AB15, [id number] ####Retail Customer Service Specialist: SHERRIE WALTER ([phone])[facility] ([facility])[address] [place] [address] Sodium [Moles/Vol] 133 mmol/L Low 136-145 [facility] Comment on above: Performed By: #### L AB15, [id number] ####Retail Customer Service Specialist: SHERRIE WALTER ([phone])[facility] ([facility])[address] [place] [address] Urea nitrogen [Mass/Vol] 16 mg/dL Normal 8-21 [facility] Comment on above: Performed By: #### L AB15, [id number] ####Retail Customer Service Specialist: SHERRIE WALTER ([phone])[facility] ([facility])[address] [place] [address] BLOOD TYPE AND SCREEN GELon 12-02-2024 ABO GROUPING O Normal [facility] Comment on above: Performed By: #### L [id number] ####Retail Customer Service Specialist: SHERRIE WALTER ([phone])[facility] BLOOD BANK ([facility])[address] [place] [address] RH TYPE IN BLOOD Negative Normal [facility] Comment on above: Performed By: #### L [id number] ####Retail Customer Service Specialist: SHERRIE WALTER ([phone])[facility] ([facility])[address] [place] [address] Basic metabolic 1998 panelon 12-02-2024 Anion gap [Moles/Vol] 5 mmol/L 3 - 13 mmol/L [facility] Calcium [Mass/Vol] 9.3 mg/dL 8.4 - 10. 2 mg/dL [facility] Chloride [Moles/Vol] 101 mmol/L 98 - 10 7 mmol/L [facility] CO2 [Moles/Vol] 27 mmol/L 22 - 29 mmol/L [facility] Creatinine [Mass/Vol] 1.01 mg/dL 0.72 - 1.25 mg/dL [facility] GFR/1.73 sq M.predicted (S/P/Bld) [Vol rate/Area] - PINF [facility] Comment on above: Calculation based on the Chronic Kidney Disease Epidemiology Collaboration (CKD-EPI) equation refit without adjustment for race Glucose [Mass/Vol] 277 mg/dL High 74 - 100 mg/dL [facility] Interpretation and review of laboratory results Abnormal [facility] Potassium [Moles/Vol] 4.1 mmol/L 3.5 - 5.1 mmol/L [facility] Comment on above: Plasma potassium yarely ues may be up to 0.5 mmol/L lower than serum values. Sodium [Moles/Vol] 133 mmol/L Low 136 - 145 mmol/L [facility] Urea nitrogen [Mass/Vol] 16 mg/dL 8 - 21 mg/dL [facility] Blood type and Crossmatch pa tomas (Bld)on 12-02-2024 ABO group Nom (Bld) O [facility] Blood group antibody screen GEL Ql Negative [facility] D Ag Ql (RBC) [facility] C-REACTIVE PROTEINon 025 CRP [Mass/Vol] 3.3 mg/L Normal <5.0 [facility] Comment on above: Performed By: #### L AB15, [id number] ####Retail Customer Service Specialist: SHERRIE WALTER ([phone])[facility] ([address] CBC W Auto Differential pane l (Bld)on 12-02-2024 Basophils (Bld) [#/Vol] 0.1 10*3/uL 0.0 - 0.2 10*3/uL [facility] Basophils/100 WBC (Bld) 0.7 % 0.0 - 2.0 % [facility] Eosinophils (Bld) [#/Vol] 0.2 10*3/uL 0.0 - 0.5 10*3/uL [facility] Eosinophils/100 WBC (Bld) 2.7 % 0.0 - 6.0 % [facility] Erythrocyte distribution width (RBC) [Ratio] 12.7 % 11.5 - 15.0 % [facility] Hematocrit (Bld) [Volume fraction] 42.4 % 40.0 - 52.0 % [facility] Hemoglobin (Bld) [Mass/Vol] 14 g/dL 13.0 - 18.0 g/dL [facility] Immature granulocytes (Bld) [#/Vol] 0 10*3/uL NINF - 0.1 10*3/[facility]L [facility] Immature granulocytes/100 WBC (Bld) 0.4 % 0.0 - 2.0 % [facility] Interpretation and review of laboratory results Normal [facility] Lymphocytes (Bld) [#/Vol] 2.8 10*3/uL 1.0 - 4.3 10*3/uL [facility] Lymphocytes/100 WBC (Bld) 40.2 % 15.0 - 45.0 % [facility] MCH (RBC) [Entitic mass] 28.9 pg 26.0 - 34.0 pg [facility] MCHC (RBC) [Mass/Vol] 33 % 30.5 - 36.0 % [facility] MCV (RBC) [Entitic vol] 87.4 fL 77.0 - 99.0 fL [facility] Monocytes (Bld) [#/Vol] 0.5 10*3/uL 0.0 - 0.9 10*3/uL [facility] Monocytes/100 WBC (Bld) 7.3 % 5.0 - 13.0 % [facility] Neutrophils (Bld) [#/Vol] 3.4 10*3/uL 1.8 - 7.5 10*3/uL [facility] Neutrophils/100 WBC (Bld) 48.7 % 38.0 - 82.0 % [facility] Nucleated RBC/100 WBC (Bld) [Ratio] 0 % [facility] Platelet mean volume (Bld) [Entitic vol] 10.4 fL 9.0 - 12.7 fL [facility] Platelets (Bld) [#/Vol] 159 10*3/uL 140 - 440 10*3/uL [facility] RBC (Bld) [#/Vol] 4.85 10*6/uL 4.40 - 5.90 10*6/uL [facility] WBC (Bld) [#/Vol] 7 10*3/uL 3.6 - 10.7 10*3/uL [facility] CBC WITH AUTO DIFFERENTIALon 12-02-2024 Basophils (Bld) [#/Vol] 0.1 10*3/uL Normal 0.0-0.2 [facility] Comment on above: Performed By: #### L [id number] ####Retail Customer Service Specialist: SHERRIE WALTER ([phone])[facility] ([address] Basophils/100 WBC (Bld) 0.7 % Normal 0.0-2.0 [facility] Comment on above: Performed By: #### L [id number] ####Retail Customer Service Specialist: SHERRIE WALTER ([phone])[facility])[address] [place] [address] Eosinophils (Bld) [#/Vol] 0.2 10*3/uL Normal 0.0-0.5 [facility] Comment on above: Performed By: #### L [id number] ####Retail Customer Service Specialist: SHERRIE WALTER ([phone])[facility])[address] [place] [address] Eosinophils/100 WBC (Bld) 2.7 % Normal 0.0-6.0 [facility] Comment on above: Performed By: #### L [id number] ####Retail Customer Service Specialist: SHERRIE WALTER ([phone])[facility])[address] [place] [address] Erythrocyte distribution width (RBC) [Ratio] 12.7 % Normal 11.5-15.0 [facility] Comment on above: Performed By: #### L [id number] ####Retail Customer Service Specialist: SHERRIE WALTER ([phone])[facility])[address] [place] [address] Hematocrit (Bld) [Volume fraction] 42.4 % Normal 40.0-52.0 [facility] Comment on above: Performed By: #### L [id number] ####Retail Customer Service Specialist: SHERRIE WALTER ([phone])[facility])[address] [place] [address] Hemoglobin (Bld) [Mass/Vol] 14.0 g/dL Normal 13.0-18.0 [facility] Comment on above: Performed By: #### L [id number] ####Retail Customer Service Specialist: SHERRIE WALTER ([phone])[facility])[address] [place] [address] IMMATURE GRANS % 0.4 % Normal 0.0-2.0 [facility] Comment on above: Performed By: #### L [id number] ####Retail Customer Service Specialist: SHERRIE WALTER ([phone])[address] IMMATURE GRANS ABSOLUTE 0.0 10*3/uL Normal <0.[address] [facility] Comment on above: Performed By: #### L [id number] ####Retail Customer Service Specialist: SHERRIE WALTER ([phone])[facility])[address] [place] [address] Lymphocytes (Bld) [#/Vol] 2.8 10*3/uL Normal 1.0-4.[address] [facility] Comment on above: Performed By: #### L [id number] ####Retail Customer Service Specialist: SHERRIE WALTER ([phone])[address] Lymphocytes/100 WBC (Bld) 40.2 % Normal 15.0-45.[address] [facility] Comment on above: Performed By: #### L [id number] ####Retail Customer Service Specialist: SHERRIE WALTER ([phone])[address] MCH (RBC) [Entitic mass] 28.9 pg Normal 26.0-34.[address] [facility] Comment on above: Performed By: #### L [id number] ####Retail Customer Service Specialist: SHERRIE WALTER ([phone])[address] MCHC 33.0 % Normal 30.5-36.[address] [facility] Comment on above: Performed By: #### L [id number] ####Retail Customer Service Specialist: SHERRIE WATLER ([phone])[address] MCV (RBC) [Entitic vol] 87.4 fL Normal 77.0-99.0 [facility] Comment on above: Performed By: #### L [id number] ####Retail Customer Service Specialist: SHERRIE WALTER ([phone])[facility] [place] [address] Monocytes (Bld) [#/Vol] 0.5 10*3/uL Normal 0.0-0.[address] [facility] Comment on above: Performed By: #### L [id number] ####Retail Customer Service Specialist: SHERRIE WALTER ([phone])[facility] ([facility])[address] [place] [address] Monocytes/100 WBC (Bld) 7.3 % Normal 5.0-13.0 [facility] Comment on above: Performed By: #### L [id number] ####Retail Customer Service Specialist: SHERRIE WALTER ([phone])[facility] ([facility])[address] [place] [address] NEUTROPHILS ABSOLUTE 3.4 10*3/uL Normal 1.8-7.5 [facility] Comment on above: Performed By: #### L [id number] ####Retail Customer Service Specialist: SHERRIE WALTER ([phone])[facility] ([facility])[address] [place] [address] Neutrophils/100 WBC (Bld) 48.7 % Normal 38.0-82.[address] [facility] Comment on above: Performed By: #### L [id number] ####Retail Customer Service Specialist: SHERRIE WALTER ([phone])[facility] ([facility])[address] [place] [address] NRBC 0.0 /100 WBCs Normal 0.0-2.0 [facility] Comment on above: Performed By: #### L [id number] ####Retail Customer Service Specialist: SHERRIE WALTER ([phone])[facility] ([facility])[address] [place] [address] Platelet mean volume (Bld) [Entitic vol] 10.4 fL Normal 9.0-12.[address] [facility] Comment on above: Performed By: #### L [id number] ####Retail Customer Service Specialist: SHERRIE WALTER ([phone])[facility] ([facility])[address] [place] [address] Platelets (Bld) [#/Vol] 159 10*3/uL Normal 140-[address] [facility] Comment on above: Performed By: #### L [id number] ####Retail Customer Service Specialist: SHERRIE WALTER ([phone])[facility] ([facility])[address] [place] [address] RBC (Bld) [#/Vol] 4.85 10*6/uL Normal 4.40-5.90 [facility] Comment on above: Performed By: #### L [id number] ####Retail Customer Service Specialist: SHERRIE WALTER ([phone])[facility] ([facility])[address] [place] [address] WBC (Bld) [#/Vol] 7.0 10*3/uL Normal 3.6-10.7 [facility] Comment on above: Performed By: #### L [id number] ####Retail Customer Service Specialist: SHERRIE WALTER ([phone])[facility] ([facility])[address] [place] [address] CRP [Mass/Vol]on 12-02-2024 Interpretation and review of laboratory results Normal [facility] Consulton 12-02-2024 Consult Hospital Medicine Consult Patient - Talia Ruby, Age - 43 y.o. - 1980 Room Number - [id number] A Consulting - Patti Durant MD Primary Care Physician - No primary care provider on file. [facility] # - [id number] Date of Admission - 12/02/2024 12:00 PM Hospital Day - 0 Reason for Consult: Medical Management HISTORY OF PRESENT ILLNESS: Talia is a 43 y.o. male pmhx of obesity, bipolar disorder, MAXIMO noncompliant with CPAP, bronchial asthma, diet-controlled diabetes mellitus, hyperlipidemia, hypothyroidism, chronic smoking history, PTSD, left middle finger MCP joint septic arthritis with MSSA, insomnia presented to [facility] for elective right below the knee amputation scheduled for 12/03/2024. Patient currently lives at [facility] secondary to history of homelessness. Of note, patient with extensive history of numerous surgeries to his right lower extremity since 2020-had a minimally traumatic injury that caused TBI to fracture which was treated nonoperatively. Then, in 12/20 patient again sustained a fractures to his right tibia/fibula causing the current varus deformity. Over the past 1 year, he endorses increasing deformity and pain to his right lower extremity. X-ray of right tibia/fibula obtained in the ED and noted for fractures of the shaft of the tibia and fibula. CBC and BMP mostly unremarkable. USACS consulted for medical management. Past Medical History: Past Medical History: Diagnosis Date Asthma Bipolar disorder (HCC) Diabetes mellitus (HCC) ETOH abuse HTN (hypertension) Hyperlipidemia MAXIMO on CPAP PTSD (post-traumatic stress disorder) 2/2 witness suicide as a child T2DM (type 2 diabetes mellitus) (HCC) Tobacco abuse Past Surgical History: Past Surgical History: Procedure Laterality Date FRACTURE SURGERY Right leg, s/p bone graft OTHER SURGICAL HISTORY 02/25/2024 IRRIGATION AND DEBRIDEMENT HAND AND LONG FINGER METACARPOPHALANGEAL JOINT - Left Medications: Scheduled PRN atorvastatin, 20 mg, Oral, Nightly insulin lispro, 0-6 Units, SubCUTAneous, TID WC And insulin lispro, 0-6 Units, SubCUTAneous, Nightly [START ON 12/03/2024] levothyroxine, 50 mcg, Oral, qAM AC melatonin, 5 mg, Oral, Nightly sennosides, 2 tablet, Oral, Nightly Or Senna, 10 mL, Oral, Nightly sodium chloride 0.9%, 5-40 mL, IntraVENous, q12h PRN medications: acetaminophen, dextrose, dextrose, glucagon (rDNA), glucose, HYDROmorphone OR HYDROmorphone, ipratropium-albuterol, naloxone, ondansetron ODT OR ondansetron, oxyCODONE OR oxyCODONE, polyethylene glycol (PEG) 3350, sodium chloride, sodium chloride 0.9%, traZODone Continuous [START ON 12/03/2024] sodium chloride, 100 mL/hr Allergies: Haldol [haloperidol], Metformin, and Risperdal [risperidone] Social History: Social History Socioeconomic History Marital status: Single Spouse name: Not on file Number of children: Not on file Years of education: Not on file Highest education level: Not on file Occupational History Not on file Tobacco Use Smoking status: Every Day Smokeless tobacco: Not on file Substance and Sexual Activity Alcohol use: Yes Drug use: Yes Types: Marijuana Sexual activity: Not on file Other Topics Concern Not on file Social History Narrative Not on file Social Drivers of Health Financial Resource Strain: Low Risk (05/19/2023) Received from [facility] Overall Financial Resource Strain (CARDIA) Difficulty of Paying Living Expenses: Not very hard Food Insecurity: Food Insecurity Present (12/29/2023) Received from [facility] Hunger Vital Sign Worried About Running Out of Food in the Last Year: Sometimes true Ran Out of Food in the Last Year: Never true Transportation Needs: No Transportation Needs (12/29/2023) Received from [facility] - Transportation Lack of Transportation (Medical): No Lack of Transportation (Non-Medical): No Physical Activity: Insufficiently Active (05/19/2023) Received from [facility] Exercise Vital Sign Days of Exercise per Week: 2 days Minutes of Exercise per Session: 10 min Stress: Stress Concern Present (05/19/2023) Received from [facility] of Occupational Health - Occupational Stress Questionnaire Feeling of Stress : To some extent Social Connections: Unknown (05/19/2023) Received from [facility] Social Connection and Isolation Panel [NHANES] Frequency of Communication with Friends and Family: More than three times a week Frequency of Social Gatherings with Friends and Family: Three times a week Attends Uatsdin Services: Not on file Active Member of Clubs or Organizations: Not on file Attends Club or Organization Meetings: More than 4 times per year Marital Status: Never Intimate Partner Violence: Unknown (02/25/2024) Humiliat (more content not included)... Normal [facility] ESR (Bld) [Velocity]Ordered By: Natividad Phan on 12-02-2024 Interpretation and review of laboratory results Normal [facility] Laboratory - Chemistry and C hemistry - challengeon 12-02-2024 Glucose [Mass/Vol] 293 mg/dL High 70 - 100 mg/dL [facility] Glucose [Mass/Vol] 223 mg/dL High 70 - 100 mg/dL [facility] CRP [Mass/Vol] 3.3 mg/L NINF - 5.0 mg/L [facility] Laboratory - Coagulationon 0 12-02-2024 aPTT Coag (PPP) [Time] 25.5 s 20.0 - 30.5 s [facility] INR Coag (PPP) [Relative time] 1 {INR} 0.9 - 1.1 [facility] Comment on above: Recommended Anticoag ulant Therapy: SEE BELOW ----- INR of 2.0 - 3.0 : - Prophylaxis of Venous Thrombosis (high-risk surgery) - Treatment of Venous Thrombosis - Treatment of Pulmonary Embolism (Includes tissue heart valves, Acute Myocardial Infarction to prevent systemic embolism, Valvular Heart Disease, and Atrial Fibrillation) ----- INR of 2.5 - 3.5 : - Mechanical Prosthetic Valves (high risk) - If oral anticoagulant therapy is used to prevent Myocardial Infarction PT Coag (Bld) [Time] 11.3 s 9.0 - 1 2.0 s [facility] Laboratory - Hematology and Cell countsOrdered By: Natividad Phan on 12-02-2024 ESR (Bld) [Velocity] 5 mm/h [facility] No Panel Informationon 12-02 Interpretation and review of laboratory results Abnormal [facility] Performed by: [facility], [address] [place] [address] CLIA ID: [id number] [facility] Right side findings: Resting NEYDA is 1.07. This is within the normal range. Left side findings: Resting NEYDA is 1.03. This is within the normal range. NEYDA Right side findings: Normal resting NEYDA. Left side findings: Normal resting NEYDA. Right PVR waveforms: Normal - lower thigh, calf, ankle and metatarsal region. Left PVR waveforms: Normal - lower thigh, calf, ankle and metatarsal region. 3 cuff method used due to body habitus. Jd Edwards Consultant Details Pulsed volume recording (PVR) was performed. The exam was performed with the patient in the supine position. Overall the study quality was good. CV CPACS Interpretation and review of laboratory results Abnormal [facility] Performed by: [facility], [address] [place] [address] CLIA ID: [id number] [facility] Interpretation and review of laboratory results Normal [facility] No Panel InformationOrdered By: Jean Claude Sotelo on 12-02-2024 Left NEYDA 1.03 [facility] Work Phone: Left dorsalis pedis BP 156 mmHg [facility] Work Phone: [phone] Left posterior tibial 155 mmHg [facility] Work Phone: [phone] Right NEYDA 1.07 [facility] Work Phone: [phone] Right arm BP 151 mmHg [facility] Work Phone: [phone] Right dorsalis pedis BP 153 mmHg [facility] Work Phone: [phone] Right posterior tibial 161 mmHg [facility] Work Phone: [phone] Nursing Noteon 12-02-2024 Nursing Note Report received from Erinn. Introduced myself to patient. No questions at this time. Patient bed low and locked, call light within reach. Normal [facility] PROTIME AND APTTon aPTT Coag (Bld) [Time] 25.5 s Normal 20.0-30.5 [facility] Comment on above: Performed By: #### L [id number] ####Retail Customer Service Specialist: SHERRIE WALTER ([phone])[address] INR Coag (PPP) [Relative time] 1.0 {INR} Normal 0.9-1.1 [facility] Health Comment on above: Result Comment: Rodrigo mmended Anticoagulant Therapy: SEE BELOW ----- INR of 2.0 - 3.0 : - Prophylaxis of Venous Thrombosis (high-risk surgery) - Treatment of Venous Thrombosis - Treatment of Pulmonary Embolism (Includes tissue heart valves, Acute Myocardial Infarction to prevent systemic embolism, Valvular Heart Disease, and Atrial Fibrillation) ----- INR of 2.5 - 3.5 : - Mechanical Prosthetic Valves (high risk) - If oral anticoagulant therapy is used to prevent Myocardial Infarction Performed By: #### L [id number] ####Retail Customer Service Specialist: SHERRIE WALTER ([phone])[facility] ([facility])[address] [place] [address] PT Coag (PPP) [Time] 11.3 s Normal 9.0-12.0 [facility] Comment on above: Performed By: #### L [id number] ####Retail Customer Service Specialist: SHERRIE WALTER ([phone])[facility] ([facility])[address] [place] [address] SEDIMENTATION RATE, AUTOMATE Don 12-02-2024 SEDIMENTATION RATE, ERYTHROCYTE 5 mm/hr Normal 0-10 [facility] Comment on above: Performed By: #### L [id number] ####Retail Customer Service Specialist: SHERRIE WALTER ([phone])[facility] ([facility])[address] [place] [address] XR CHEST 1 VIEWon 12-02-2024 XR CHEST 1 VIEW Patient Name: TALIA STAFFORD : 1980 Exam Date/Time: 12/02/2024 15:08 Procedure: XR CHEST 1 VIEW Ordering Provider: RUTLEDGE EMILY Reason For Exam: SURGERY Chest one view History: Short of breath The heart, mediastinum, pulmonary vasculature, lungs and pleural spaces are normal. IMPRESSION: Normal examination. Report Dictated on Electronically Signed By: Errol Franks MD Electronically Signed Date/Time: 12/02/2024 3:14 PM EST Normal [facility] XR Chest Single viewon 12-02 Normal examination. Report Dictated on Electronically Signed By: Errol Franks MD Electronically Signed Date/Time: 12/02/2024 3:14 PM EST [facility] Patient Name: TALIA STAFFORD : 1980 Exam Date/Time: 12/02/2024 15:08 Procedure: XR CHEST 1 VIEW Ordering Provider: RUTLEDGE EMILY Reason For Exam: SURGERY Chest one view History: Short of breath The heart, mediastinum, pulmonary vasculature, lungs and pleural spaces are normal. [facility] Errol Franks MD - 12/02/2024 Patient Name: TALIA RUBY : 1980 Exam Date/Time: 12/02/2024 15:08 Procedure: XR CHEST 1 VIEW Ordering Provider: RUTLEDGE EMILY Reason For Exam: SURGERY Chest one view History: Short of breath The heart, mediastinum, pulmonary vasculature, lungs and pleural spaces are normal. IMPRESSION: Normal examination. Report Dictated on Electronically Signed By: Errol Franks MD Electronically Signed Date/Time: 12/02/2024 3:14 PM EST [facility] Radiology Study observation (narrative) [facility] XR Chest Single viewOrdered By: Errol Franks on 12-02-2024 [facility] Work Phone: XR TIBIA FIBULA 2 VIEWS RIGH Ton 12-02-2024 XR TIBIA FIBULA 2 VIEWS RIGHT Patient Name: TALIA RUBY : 1980 Exam Date/Time: 12/02/2024 15:08 Procedure: XR TIBIA FIBULA 2 VIEWS RIGHT Ordering Provider: RUTLEDGE EMILY Reason For Exam: SURGERY Right tib-fib two views HISTORY: Surgery COMPARISON: 11/25/2024 Again seen are fractures of the shafts of the tibia and fibula. The fibular fracture appears mostly healed. There is nonunion, angulation, and nonunion of the tibial fracture. Report Dictated on Electronically Signed By: Errol Franks MD Electronically Signed Date/Time: 12/02/2024 3:15 PM EST Normal [facility] XR Tibia and Fibula - right 2 Viewson 12-02-2024 Patient Name: TALIA STAFFORD : 1980 Exam Date/Time: 12/02/2024 15:08 Procedure: XR TIBIA FIBULA 2 VIEWS RIGHT Ordering Provider: RUTLEDGE EMILY Reason For Exam: SURGERY Right tib-fib two views HISTORY: Surgery COMPARISON: 11/25/2024 Again seen are fractures of the shafts of the tibia and fibula. The fibular fracture appears mostly healed. There is nonunion, angulation, and nonunion of the tibial fracture. Report Dictated on Electronically Signed By: Errol Franks MD Electronically Signed Date/Time: 12/02/2024 3:15 PM [facility]Y [facility] Errol Franks MD - 12/02/2024 Patient Name: TALIA RUBY : 1980 Exam Date/Time: 12/02/2024 15:08 Procedure: XR TIBIA FIBULA 2 VIEWS RIGHT Ordering Provider: RUTLEDGE EMILY Reason For Exam: SURGERY Right tib-fib two views HISTORY: Surgery COMPARISON: 11/25/2024 Again seen are fractures of the shafts of the tibia and fibula. The fibular fracture appears mostly healed. There is nonunion, angulation, and nonunion of the tibial fracture. Report Dictated on Electronically Signed By: Errol Franks MD Electronically Signed Date/Time: 12/02/2024 3:15 PM [facility] Radiology Study observation (narrative) [facility] 11-26-2024 36 Spoke with Jaci rosado nd she is having legal guardianship paperwork faxed to us. After receiving, will fax the post op appointment times to the nursing facility. Normal [facility] 11-25-2024 [address] be dire ct admitted on 12/02/2024 in the early afternoon per Dr. Durant. Called and set up the direct admit with [facility]wood Direct admit knows to call Jaci Leger residential case manager for the patient to set up transportation for patient. Called facility residential case manager, Jaci, and scheduled all 3 post op appointments. She knows patient will be direct admitted a day prior to surgery. She knows [facility] will be calling her the day of to let her know when patient needs to be at the hospital on 12/02/2024. Jaci stated that she needed consent forms sent to her directly so she may sign for the consent for surgery as she is his legal guardian. We do not have legal guardianship paperwork stating she is his legal guardian. 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 Schedule for: 1.5 hours Admission Type: Patient to be direct admitted 1 day prior to surgery Medical Clearance: To be evaluated by medicine when direct admitted Antibiotic: Ancef 3 g Anesthesia: General + Regional Position and Table type: Supine on Regular OR table Radiology: None Normal [facility] Office Visiton 11-25-2024 Follow-up visit [id number] Herber Ruby 1980 M Date Provider Department Center 11/25/2024 [id number] ROE [facility] ORT None Family History Problem Relation Age of Onset Bipolar disorder Other Family Status - Relation Status Age at Other Level of Service:12973 [place] [facility] 60 MINUTES Reason for Visit and Comments: New Patient [542] - Tib/fib fx with osteomyelitis Normal [facility] Progress Noteon 11-25-2024 Progress Note [facility] - [address] [facility] [address] Dept: [phone] Dept Talia Ruby 1980 [id number] 11/25/2024 HISTORY OF PRESENT ILLNESS: Talia is a 43 y.o. male here today for evaluation of his right tibia/fibula fracture Talia states the problem has been present for 2 years Talia states the problem started as the result of an injury. It first fractured 2 years ago and then October 2023 it fractured again from a fall down some steps. He is taking ibuprofen for pain but isn't helping. He is using a wheelchair and crutches to get around. He is staying at a [facility] because he is homeless. He thinks it's related to his bone density. Talia has tried or has been treated with the following: modifying his activity level and avoiding those activities which aggravate the problem, NSAID's, walking aids (crutches, cane, a walker,knee scooter,wheelchair, etc), and bracing. The patient reports a history of a tibia fracture back in the late s and at that point had multiple surgeries to fix his leg fracture. At that time he endorses having infections that needed multiple surgeries to rid himself of the infections. Over the last 20 years he says that he had recurrent infection of his leg mostly in the soft tissue requiring surgery every few years and at one point requiring a muscle flap over top of his medial soft tissue.. More recently about 3 to 4 years ago he reports a minimally traumatic injury that caused his tibia to break again. This was treated nonoperatively and finally about a little over a year ago he had another injury causing his tibia and fibula to break. He had issues following up with his physicians and has been intermittently walking on his leg over this time. He reports increased deformity and pain. He is here to talk about his options since he is not functional on this leg. The patient offered up the idea of an amputation as he has been dealing with this injury for so many years with so many infections and he would like to have a definitive surgery to manage this. He currently lives at a facility as he was priorly homeless. He is a type II diabetic on insulin. 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 Review of Systems PAST MEDICAL HISTORY: Past Medical History: Diagnosis Date Asthma Bipolar disorder (HCC) Diabetes mellitus (HCC) ETOH abuse HTN (hypertension) Hyperlipidemia MAXIMO on CPAP PTSD (post-traumatic stress disorder) 2/2 witness suicide as a child T2DM (type 2 diabetes mellitus) (HCC) Tobacco abuse Allergies Allergen Reactions Haldol [Haloperidol] Metformin Risperdal [Risperidone] PHYSICAL EXAM: There were no vitals filed for this visit. right Lower extremity Able to dorsiflex and plantarflex his ankle and toes with some discomfort Skin: Dry, well-healed scars and muscle flap over the anterior medial distal tibia with no gross erythema or signs of infection Inspection: Obvious deformity at the distal tibial shaft with palpable bony apex along the anterior leg causing a flexion deformity through the distal tibia and fibula. tenderness to palpation: Over top of the distal tibia at the level of the deformity swelling: Yes ecchymosis: No Sensation: Diminished but intact through the foot below the level of the deformity Pulses: Palpable DP: yes PT: No BCR to all digits RADIOGRAPHIC INTERPRETATION: 2 views of the tibia and fibula demonstrate a nonunion of the distal tibial shaft with about a 40 degree flexion angulation through the nonunion site, erosive bone at the nonunion site with sclerotic comminuted pieces. There is an associated malunited fibula fracture along the midshaft fibula with bridging bone that is similarly angulated to the tibia. REVIEW OF RELATED PREVIOUS DOCUMENTATION: Documents from Dr. Benavides were reviewed. LABORATORY RESULT INTERPRETATION: No labs were reviewed/No labs available for review DIAGNOSIS: Diagnosis Plan 1. 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 The patient has a very difficult problem of a nonunion of his right tibia which may or may not have a low-grade infection with his history of multiple skin infections required debridement and him endorsing the fact that he usually has a new infection that seems to appear every few years. 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 We discussed both operative and nonoperative management, the risks and benefits of both. We extensively went over his surgical options with limb salvage options consisting of a talar spatial frame versus i (more content not included)... Normal [facility] XR Tibia and Fibula - right 2 Viewson 11-25-2024 Findings/Impression: AP and lateral views of the right tibia and fibula are provided. Nonunion of a distal tibial metaphysis fracture, with posterior angulation of the distal fracture fragment. Healed fracture deformity of the fibula midshaft with medial angulation of the distal fracture fragment. The knee joint is grossly intact. Report Dictated on Electronically Signed By: Bora Jacobo MD Electronically Signed Date/Time: 11/25/2024 11:13 AM [facility] RAD[facility]OLOGY SYSTEM Patient Name: FADI TALIA : 1980 Exam Date/Time: 11/25/2024 08:22 Procedure: XR TIBIA FIBULA 2 VIEWS RIGHT Ordering Provider: BEARD MIA Reason For Exam: PAIN Examination: Right tibia fibula Clinical Indication: Pain Comparison: None [facility] Bora Jacobo MD - 11/25/2024 Patient Name: TALIA RUBY : 1980 Exam Date/Time: 11/25/2024 08:22 Procedure: XR TIBIA FIBULA 2 VIEWS RIGHT Ordering Provider: BEARD MIA Reason For Exam: PAIN Examination: Right tibia fibula Clinical Indication: Pain Comparison: None IMPRESSION: Findings/Impression: AP and lateral views of the right tibia and fibula are provided. Nonunion of a distal tibial metaphysis fracture, with posterior angulation of the distal fracture fragment. Healed fracture deformity of the fibula midshaft with medial angulation of the distal fracture fragment. The knee joint is grossly intact. Report Dictated on Electronically Signed By: Bora Jacobo MD Electronically Signed Date/Time: 11/25/2024 11:13 AM EST [facility] Radiology Study observation (narrative) [facility] XR Tibia and Fibula - right 2 ViewsOrdered By: Bora Jacobo on 11-25-2024 [facility] Work Phone: BASIC METABOLIC PANELon 10- Anion gap [Moles/Vol] 14 mmol/L Normal 10-20 [facility] Comment on above: Order Comment: [facility] has implemented the eGFR calculation approach that does not have a coefficient for race that conforms to the NKF-ASN Task Force Recommendations. Performed By: #### 4 [id number] #### [facility] [address], [place] [address] Shahram Villa M.D. [id number] Calcium [Mass/Vol] 9.1 mg/dL Normal 8.4-10.2 [facility] Comment on above: Order Comment: [facility] has implemented the eGFR calculation approach that does not have a coefficient for race that conforms to the NKF-ASN Task Force Recommendations. Performed By: #### 4 [id number] #### [facility] [address] [id number] Shahram Villa M.D. [id number] Chloride [Moles/Vol] 100 mmol/L Normal 98-108 [facility] Comment on above: Order Comment: [facility] has implemented the eGFR calculation approach that does not have a coefficient for race that conforms to the NKF-ASN Task Force Recommendations. Performed By: #### 4 [id number] #### [facility] [address] [address] Shahram Villa M.D. [id number] Creatinine [Mass/Vol] 0.84 mg/dL Normal 0.50-1.30 [facility] Comment on above: Order Comment: [facility] has implemented the eGFR calculation approach that does not have a coefficient for race that conforms to the NKF-ASN Task Force Recommendations. Performed By: #### 4 [id number] #### [facility] [address] [address] Shahram Villa M.D. [id number] EGFR 110 mL/min/1.73 m2 Normal >=60 [facility] Comment on above: Order Comment: [facility] has implemented the eGFR calculation approach that does not have a coefficient for race that conforms to the NKF-ASN Task Force Recommendations. Result Comment: Amena mated GFR was calculated using the 2020 CKD-EPI creatinine equation. Performed By: #### 4 [id number] #### [facility] [address] [id number] Shahram Villa M.D. [id number] Glucose [Mass/Vol] 197 mg/dL High 65-99 [facility] Comment on above: Order Comment: [facility] has implemented the eGFR calculation approach that does not have a coefficient for race that conforms to the NKF-ASN Task Force Recommendations. Performed By: #### 4 [id number] #### [facility] [address] [address] Shahram Villa M.D. [id number] HCO3 (Bld) [Moles/Vol] 29 mmol/L Normal 21-32 [facility] Comment on above: Order Comment: [facility] has implemented the eGFR calculation approach that does not have a coefficient for race that conforms to the NKF-ASN Task Force Recommendations. Performed By: #### 4 [id number] #### [facility] [address], [place] [address] Shahram Villa M.D. [id number] Potassium [Moles/Vol] 4.2 mmol/L Normal 3.5-5.1 [facility] Comment on above: Order Comment: [facility] has implemented the eGFR calculation approach that does not have a coefficient for race that conforms to the NKF-ASN Task Force Recommendations. Performed By: #### 4 [id number] #### [facility] [address] [id number] Shahram Villa M.D. [id number] Sodium [Moles/Vol] 139 mmol/L Normal 135-145 [facility] Comment on above: Order Comment: [facility] has implemented the eGFR calculation approach that does not have a coefficient for race that conforms to the NKF-ASN Task Force Recommendations. Performed By: #### 4 [id number] #### [facility] [address] [id number] Shahram Villa M.D. [id number] Urea nitrogen [Mass/Vol] 22 mg/dL Normal 8-25 [facility] Comment on above: Order Comment: [facility] has implemented the eGFR calculation approach that does not have a coefficient for race that conforms to the NKF-ASN Task Force Recommendations. Performed By: #### 4 [id number] #### [facility] [address], [place] [address] Shahram Villa M.D. [id number] Urea nitrogen/Creatinine [Mass ratio] 26.2 mg/mg High 10.0-20.0 [facility] Comment on above: Order Comment: [facility] has implemented the eGFR calculation approach that does not have a coefficient for race that conforms to the NKF-ASN Task Force Recommendations. Performed By: #### 4 [id number] #### [facility] [address] [address] Shahram Villa M.D. [id number] CBC WITH AUTO DIFFERENTIALon 07-11-2024 AUTO NRBC 0.0 % Normal [facility] Comment on above: Performed By: #### L [id number] #### [facility] [address] [address] Shahram Villa M.D. [id number] AUTO NRBC ABS COUNT 0.00 K/mcL Normal 0.00-0.00 [facility] Comment on above: Performed By: #### L [id number] #### [place] [address] [address] [place] [address] Shahram Villa M.D. [id number] BASOPHILS ABSOLUTE COUNT 0.02 K/mcL Normal 0.00-0.30 [facility] Comment on above: Performed By: #### L [id number] #### [place] [address] [place] [address] Shahram Villa M.D. [id number] Basophils/100 WBC (Bld) 0.2 % Normal [facility] Comment on above: Performed By: #### L [id number] #### [place] [address] [address] [place] [address] Shahram Villa M.D. [id number] Eosinophils (Bld) [#/Vol] 0.18 10*3/uL Normal 0.00-0.50 [facility] Comment on above: Performed By: #### L [id number] #### [facility] [address] [address] Shahram Villa M.D. [id number] Eosinophils/100 WBC (Bld) 2.2 % Normal [facility] Comment on above: Performed By: #### L [id number] #### [place] [address] [place] [address] Shahram Villa M.D. [id number] Erythrocyte distribution width (RBC) [Ratio] 13.0 % Normal 11.6-14.8 [facility] Comment on above: Performed By: #### L [id number] #### [facility] [address] [address] Shahram Villa M.D. [id number] Hematocrit (Bld) [Volume fraction] 40.4 % Low 41.0-53.0 [facility] Comment on above: Performed By: #### Glen [id number] #### [facility] [address] [address] Shahram Villa M.D. [id number] Hemoglobin (Bld) [Mass/Vol] 13.7 g/dL Normal 13.5-17.5 [facility] Comment on above: Performed By: #### L [id number] #### [facility] [address] [address] Shahram Villa M.D. [id number] IG ABSOLUTE 0.03 K/mcL Normal 0.00-0.30 [facility] Comment on above: Performed By: #### L [id number] #### [place] [address] [place] [address] Shahram Villa M.D. [id number] IG PERCENT 0.40 % Normal [facility] Comment on above: Result Comment: The IG parameter is the percentage of metamyelocytes, myelocytes and promyelocytes. An immature granulocyte count (IG) of 1% or more suggests the possibility of infection, an IG count of 3% is very likely related to an infection. Performed By: #### Glen [id number] #### [facility] [address] [address] Shahram Villa M.D. [id number] Lymphocytes (Bld) [#/Vol] 2.95 10*3/uL Normal 0.90-4.00 [facility] Comment on above: Performed By: #### L [id number] #### [facility] [address] [id number] Shahram Villa M.D. [id number] Lymphocytes/100 WBC (Bld) 35.3 % Normal [facility] Comment on above: Performed By: #### L [id number] #### [facility] [address] [address] Shahram Villa M.D. [id number] MCH (RBC) [Entitic mass] 28.5 pg Normal 26.0-34.0 [facility] Comment on above: Performed By: #### L [id number] #### [facility] [address] [address] Shahram Villa M.D. [id number] MCV (RBC) [Entitic vol] 84.2 fL Normal 80.0-100.0 [facility] Comment on above: Performed By: #### L [id number] #### [facility] [address] [address] Shahram Villa M.D. [id number] MEAN CORPUSCULAR HEMOGLOBIN CONC 33.9 g/dL Normal 31.0-37.0 [facility] Comment on above: Performed By: #### L [id number] #### [facility] [address] [address] Shahram Villa M.D. [id number] Monocytes (Bld) [#/Vol] 0.66 10*3/uL Normal 0.30-0.90 [facility] Comment on above: Performed By: #### Glen [id number] #### [facility] [address] [address] Shahram Villa M.D. [id number] Monocytes/100 WBC (Bld) 7.9 % Normal [facility] Comment on above: Performed By: #### L [id number] #### [facility] [address] [address] Shahram Villa M.D. [id number] NEUTROPHILS ABSOLUTE COUNT 4.51 K/mcL Normal 1.70-7.00 [facility] Comment on above: Performed By: #### L [id number] #### [facility] [address] [address] Shahram Villa M.D. [id number] Neutrophils/100 WBC (Bld) 54.0 % Normal [facility] Comment on above: Performed By: #### L [id number] #### [facility] [address] [address] Shahram Villa M.D. [id number] Platelet mean volume (Bld) [Entitic vol] 9.8 fL Normal 9.4-12.4 [facility] [facility] Comment on above: Performed By: #### L [id number] #### [facility] [address], [place] [address] Shahram Villa M.D. [id number] Platelets (Bld) [#/Vol] 259 10*3/uL Normal 150-400 [facility] Comment on above: Performed By: #### L [id number] #### [facility] [address], [place] [address] Shahram Villa M.D. [id number] RBC (Bld) [#/Vol] 4.80 10*6/uL Normal 4.50-5.90 [facility] Comment on above: Performed By: #### L [id number] #### [facility] [address], [place] [address] Sahhram Villa M.D. [id number] WBC (Bld) [#/Vol] 8.35 10*3/uL Normal 4.50-11.00 [facility] Comment on above: Performed By: #### L [id number] #### [facility] [address] [id number] Shahram Villa M.D. [id number] ED Prov Noteon 07-11-2024 ED Prov Note PCP - No, Physician [phone] Chief Complaint Patient presents with Chest Pain Leg Pain HPI This patient is a 43-year-old male presenting for evaluation of chest pain. He is currently admitted at [facility] for suicidal ideation. He has a history of schizophrenia and bipolar disorder as well. He states earlier tonight he started having chest pain which is midsternal nonradiating. The pain is not pleuritic. He reports some shortness of breath with this but no nausea vomiting or sweats. No cough fevers or chills. He reports chronic right leg pain related to remote trauma when he was 18 years old and living in [place]. He states he underwent "20 surgeries" for this injury and is left with chronic pain and deformity. Denies any new injury or trauma. Denies any redness or warmth to the area. No prior history of blood clot. No recent long travel or surgery. Denies any abdominal pain, back pain or any other complaints at this time. Review of Systems Review of systems as per HPI. All pertinent positive negatives are noted in HPI. Review of systems otherwise negative. Past Medical History Past Medical History: Diagnosis Date Bipolar 1 disorder (HCC) Diabetes mellitus (HCC) Schizophrenia (HCC) 01/08/2024 Past Surgical History Past Surgical History: Procedure Laterality Date ORTHOPEDIC SURGERY TONSILLECTOMY Social History Social History Socioeconomic History Marital status: Single Tobacco Use Smoking status: Every Day Types: Cigarettes Passive exposure: Current Smokeless tobacco: Never Vaping Use Vaping status: Never Used Substance and Sexual Activity Alcohol use: Yes Comment: binge Drug use: Yes Types: Marijuana, Methamphetamines Social Determinants of Health Financial Resource Strain: Low Risk (05/19/2023) Received from [facility] Overall Financial Resource Strain (CARDIA) Difficulty of Paying Living Expenses: Not very hard Food Insecurity: Food Insecurity Present (12/29/2023) Received from [facility] Hunger Vital Sign Worried About Running Out of Food in the Last Year: Sometimes true Ran Out of Food in the Last Year: Never true Transportation Needs: No Transportation Needs (12/29/2023) Received from [facility] PRAPARE - Transportation Lack of Transportation (Medical): No Lack of Transportation (Non-Medical): No Physical Activity: Insufficiently Active (05/19/2023) Received from [facility] Exercise Vital Sign Days of Exercise per Week: 2 days Minutes of Exercise per Session: 10 min Stress: Stress Concern Present (05/19/2023) Received from [facility] of Occupational Health - Occupational Stress Questionnaire Feeling of Stress : To some extent Social Connections: Unknown (05/19/2023) Received from [facility] Social Connection and Isolation Panel [NHANES] Frequency of Communication with Friends and Family: More than three times a week Frequency of Social Gatherings with Friends and Family: Three times a week Attends Club or Organization Meetings: More than 4 times per year Marital Status: Never Housing Stability: High Risk (12/29/2023) Received from [facility] Housing Stability Vital Sign Unable to Pay for Housing in the Last Year: Yes Unstable Housing in the Last Year: Yes Family history History reviewed. No pertinent family history. Physical Exam Initial Vital Signs BP (!) 156/77 Pulse 92 Temp 98.3 degrees F (36.8 degrees C) (Oral) Resp 18 SpO2 97% Vital Signs During ED Visit (as charted by nursing) Patient Vitals for the past 24 hrs: BP Temp Temp src Pulse Resp SpO2 07/11/24 0503 (!) 156/77 -- -- 92 18 97 % 07/11/24 0330 132/68 -- -- 80 (!) 19 96 % 07/11/24 0245 (!) 144/81 -- -- 78 17 94 % 07/11/24 0200 (!) 182/97 -- -- 77 (!) 20 96 % 07/11/24 0116 (!) 150/99 -- -- 79 (!) 20 96 % 07/11/24 0108 -- -- -- -- 16 -- 07/11/24 0045 (!) 127/54 -- -- 83 (!) 20 98 % 07/11/24 0005 119/74 98.3 degrees F (36.8 degrees C) Oral 93 16 96 % Nursing notes reviewed CONSTITUTIONAL: Well-appearing and well-nourished. HEAD: Normocephalic, atraumatic. EYES: No conjunctival injection, no icterus. EARS: External ears appear normal. NOSE: Nose appears normal. No rhinorrhea. NECK: Trachea midline. No JVD. RESPIRATORY: Normal chest excursion with respiration, no stridor. Lungs clear to auscultation bilaterally. CARDIOVASCULAR: Regular rate and rhythm. No cyanosis. GASTROINTESTINAL: Abdomen soft, nondistended, nontender, without guarding rebound or rigidity. NEUROLOGICAL: Awake, alert and oriented. PSYCHOLOGICAL: The patient's mood and manner are appropriate. Grooming and personal hygiene are appropriate. INTEGUMENTARY: Warm and dry no rash noted. Procedures Laboratory Results Labs Reviewed BASIC METABOLIC PANEL - Abnormal; (more content not included)... Normal [facility] TROPONINon 07-11-2024 BASELINE TROPONIN T NG/L 14 ng/L Normal <=22 [facility] Comment on above: Performed By: #### [id number] #### [facility] [address], [place] [address] Shahram Villa M.D. [id number] TROPONIN T INTERPRETATION Normal Normal [facility] Comment on above: Performed By: #### [id number] #### [facility] [address], [place] [address] Shahram Villa M.D. [id number] XR CHEST PA/APon 07-11-2024 XR CHEST PA/AP EXAMINATION: ONE XRAY VIEW OF THE CHEST 07/10/2024 9:23 pm COMPARISON: 01/07/2024 HISTORY: ORDERING SYSTEM PROVIDED HISTORY: CP; TECHNOLOGIST PROVIDED HISTORY: Illness/Other Acuity: Acute Reason for Exam: CP Cancer History: U Surgery, Radiation History: U Type of Encounter: Initial Additional signs and symptoms: . FINDINGS: Mild interstitial edema. No pneumothorax or pleural effusion. Borderline cardiomegaly. IMPRESSION: Mild interstitial edema. Workstation ID: [id number] Dictated by: KARAN ZAVALA on [place] Jul 11, 2024 1:03:14 AM EDT Transcribed by: KARAN ZAVALA on [place] Jul 11, 2024 1:03:14 AM EDT Finalized by: KARAN ZAVALA on [place] Jul 11, 2024 1:03:14 AM EDT [facility] Comment on above: Order Comment: Injur y/Trauma or Illness?:Illness/Other How long have you had these symptoms (acute/chronic)?:Acute Reason for exam?:CP History of cancer?:U Surgeries, chemotherapy, or radiation?:U Type of Exam?:Initial Additional signs and symptoms?:. XR TIBIA FIBULA RIGHT 2 VIEW Son 07-11-2024 XR TIBIA FIBULA RIGHT 2 VIEWS EXAMINATION: TWO XRAY VIEWS OF THE RIGHT TIBIA/FIBULA 07/10/2024 9:23 pm COMPARISON: 11/25/2023 HISTORY: ORDERING SYSTEM PROVIDED HISTORY: Acute on chronic right leg pain, remote trauma; TECHNOLOGIST PROVIDED HISTORY: Illness/Other Acuity: Acute Reason for Exam: Acute on chronic right leg pain, remote trauma Cancer History: U Surgery, Radiation History: U Type of Encounter: Initial Additional signs and symptoms: . FINDINGS: Extensive chronic deformity of the right lower leg similar to the October study with some evidence of interval healing (of the fibular fracture). Chronic nonunion of the tibia--could be a chronic infection at this location. Diffuse soft tissue swelling. Consider Re characterizing with CT. IMPRESSION: Extensive chronic deformity of the right lower leg similar to the October study with some evidence of interval healing (of the fibular fracture). Chronic nonunion of the tibia--could be a chronic infection at this location. Diffuse soft tissue swelling. Consider Re characterizing with CT. Workstation ID: [id number] Dictated by: KARAN ZAVALA on [place] Jul 11, 2024 1:06:33 AM EDT Transcribed by: KARAN ZAVALA on [place] Jul 11, 2024 1:06:33 AM EDT Finalized by: KARAN ZAVALA on [place] Jul 11, 2024 1:06:33 AM EDT [facility] Comment on above: Order Comment: Injur y/Trauma or Illness?:Illness/Other How long have you had these symptoms (acute/chronic)?:Acute Reason for exam?:Acute on chronic right leg pain, remote trauma History of cancer?:U Surgeries, chemotherapy, or radiation?:U Type of Exam?:Initial Additional signs and symptoms?:. Sha 06-29-2024 HARIKAN Telephone (RADHA) TALIA RUBY ([id number]) 1980 M T Date Time Provider Department 06/29/24 KING MATUTE During your visit today, we recorded the following information about you: Rossy Bains LPN 06/29/2024 3:03 PM Signed Received ed visit summary for psych issues from [facility]. Placed in provider's inbox for review. Route to MA scanning Allergies As of Date: 06/29/2024 Noted Allergy Reaction ACETAMINOPHEN 04/14/2017 6 - Diarrhea ARIPIPRAZOLE 04/14/2017 14 - Other: See Comments CHLORPHENIRAMINE 04/14/2017 6 - Diarrhea DEXTROMETHORPHAN 04/14/2017 6 - Diarrhea GUAIFENESIN 04/14/2017 6 - Diarrhea HALDOL (HALOPERIDOL) 10/16/2010 1 - Mental Status Change Comments: Mind goes blank METFORMIN 09/13/2016 5 - Intolerance Comments: GI upset and abdominal pain with XR formulation, metallic taste RISPERDAL (RISPERIDONE) 10/16/2010 13 - Dystonia Date Reviewed: 12/28/2023 Reviewed by: Yulia Cottrell, AYDEN - Fully Assessed Reason for Visit: Received Outside Medical Records [[id number]] Cmt: [facility] ED Prescriptions as of 06/29/2024 - divalproex DR (DEPAKOTE) 500 mg EC tablet Take 1 tablet by mouth once daily AND 2 tablets daily at bedtime. - FOLDING WALKER WITH 5" WHEELS 2 wheeled walker - SITagliptin phosphate (JANUVIA) 100 mg tablet Take 1 tablet by mouth once daily. - cholecalciferol, Vitamin D3, (VITAMIN D3) 1,250 mcg (50,000 unit) cap capsule Take 1 capsule by mouth one time a week. - simvastatin (ZOCOR) 40 mg tablet Take 1 tablet by mouth daily at bedtime. for cholesterol - levothyroxine (SYNTHROID) 50 mcg tablet take 1 tablet by mouth once daily on an empty stomach - gabapentin (NEURONTIN) 300 mg capsule Take 300 mg by mouth three times a day. - hydrOXYzine pamoate (VISTARIL) 50 mg capsule take 1 capsule by mouth every 6 hours if needed for anxiety - QUEtiapine (SEROQUEL) 300 mg tablet - traZODone (DESYREL) 50 mg tablet - blood sugar diagnostic (BLOOD GLUCOSE TEST) test strip Test blood sugar(s) two (2) times daily. Dx: Other DM Code E11.9. Insulin: No - Lancets lancets Test blood sugar(s) two (2) times daily. Dx: Other DM Code E11.9. Insulin: No. - alcohol swabs (ALCOHOL PADS) Use as needed two (2) times daily to test blood glucose. - blood sugar diagnostic (ONETOUCH VERIO TEST STRIPS) test strip Test blood sugar(s) 2 times daily. Dx: Type 2 DM - Controlled E11.9 Insulin: No - Blood-Glucose Sensor (FREESTYLE LAYA 3 SENSOR) fernando Apply new sensor every fourteen (14) days to upper arm. - CPAP/BIPAP/OTHER Type .CPAPSettings into a note to see current settings/supplies/DME information. - glimepiride (AMARYL) 4 mg tablet take 1 tablet by mouth once daily with breakfast - prazosin (MINIPRESS) 1 mg cap - Blood Pressure Kit-Extra Large kit Check blood pressure weekly and as needed, - multivitamin tablet Take 1 tablet by mouth once daily. - lancets (ONE TOUCH DELICA) 33 gauge misc Test blood sugar(s) 2 daily. Dx: Type 2 DM - Controlled E11.9 Insulin: No - TRUE METRIX GLUCOSE METER misc as directed. - acetaminophen (TYLENOL) 325 mg tablet Take 2 tablets by mouth every 6 hours as needed. 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] 11/27/2017 Osteomyelitis (HCC) [M86.9] 11/27/2017 2017 Osteomyelitis of right tibia (HCC) [M86.9] 11/26/2017 02/10/2018 Vitamin D insufficiency [E55.9] 12/01/2017 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*12/30/2017 Tobacco use [Z72.0] 12/30/2017 Vitamin D deficiency [E55.9] 12/30/2017 08/07/2020 Osteomyelitis of right tibia (HCC) [M86.9] 02/10/2018 11/13/2018 Rosacea [L71.9] 04/27/2018 Schizophrenia (HCC) [F20.9] MAXIMO treated with BiPAP [G47.33] 12/18/2016 Osteomyelitis of right tibia, unspecified type *12/27/2023 Nicotine use disorder, F17.2 [F17.200] 01/07/2024 Encounter Status:Closed by ROSSY BAINS on 06/29/24 Normal [facility] UFENTSon 04-29-2024 Fentanyl (u) Negative Normal Negative [facility] ([place]) Comment on above: Result Comment: Test ing has been performed FOR MEDICAL PURPOSES ONLY. Performed By: #### U ADELE IRBY ####[place] [address]#### UDRUG ####[facility] [address] [place], [place] [address] UOXYSon 04-29-2024 Oxycodone (u) Negative Normal Negative [facility] ([place]) Comment on above: Result Comment: Test ing has been performed FOR MEDICAL PURPOSES ONLY. Performed By: #### U FENTS, UOXYS ####[facility] [place] [address]#### UDRUG ####[facility] [place], [place] [address] .Auto Diffon 04-28-2024 Basophil, Absolute 0.0 10 3/mcL Normal 0.0-0.2 [facility] ([place]) Comment on above: Performed By: #### C MP, LUPE, ANEU, ALC, ADIFF, ACETA, MDW, GFR, CBC ####[facility] [address] [place], [place] [address] Basophils/100 WBC (Bld) 0.4 % Normal 0.0-2.5 A [facility] ([place]) Comment on above: Performed By: #### C MP, LUPE, ANEU, ALC, ADIFF, ACETA, MDW, GFR, CBC ####[facility] [place], [place] [address] Eosinophil, Absolute 0.2 10 3/mcL Normal 0.0-0.4 [facility] ([place]) Comment on above: Performed By: #### C MP, LUPE, ANEU, ALC, ADIFF, ACETA, MDW, GFR, CBC ####[facility] [address] [place], [place] [address] Eosinophils/100 WBC (Bld) 2.4 % Normal 0.0-7.0 [facility] ([place]) Comment on above: Performed By: #### C MP, LUPE, ANEU, ALC, ADIFF, ACETA, MDW, GFR, CBC ####[facility] [address] [place], [place] [address] Lymphocyte, Absolute 3.5 10 3/mcL Normal 0.8-3.9 [facility] ([place]) Comment on above: Performed By: #### C MP, LUPE, ANEU, ALC, ADIFF, ACETA, MDW, GFR, CBC ####[facility] [address] [place], [place] [address] Lymphocytes/100 WBC (Bld) 35.0 % Normal 10.0-50.0 [facility] ([place]) Comment on above: Performed By: #### C MP, LUPE, ANEU, ALC, ADIFF, ACETA, MDW, GFR, CBC ####[facility] [address] [place], [place] [address] Monocyte, Absolute 0.8 10 3/mcL Normal 0.2-1.0 [facility] ([place]) Comment on above: Performed By: #### C MP, LUPE, ANEU, ALC, ADIFF, ACETA, MDW, GFR, CBC ####[facility] [address] [place], [place] [address] Monocytes/100 WBC (Bld) 8.1 % Normal 1.7-13.0 [facility] ([place]) Comment on above: Performed By: #### C MP, LUPE, ANEU, ALC, ADIFF, ACETA, MDW, GFR, CBC ####[facility] [address] [place], [place] [address] Neutrophils/100 WBC (Bld) 54.1 % Normal 37.0-80.0 [facility] ([place]) Comment on above: Performed By: #### C MP, LUPE, ANEU, ALC, ADIFF, ACETA, MDW, GFR, CBC ####[facility] [address] [place], [place] [address] .GFRon 04-28-2024 GFR 82 ml/min/1.73sqm Normal [facility] ([place]) Comment on above: Result Comment: GFR Population mean for , Non- Americans Ages 20-29 = 116 mL/min/1.73 sq.m. Ages 30-39 = 107 mL/min/1.73 sq.m. Ages 40-49 = 99 mL/min/1.73 sq.m. Ages 50-59 = 93 mL/min/1.73 sq.m. Ages 60-69 = 85 mL/min/1.73 sq.m. Ages 70+ = 75 mL/min/1.73 sq.m.Chronic Kidney Disease: Less than 60 mL/min/1.73 square metersEnd Stage Renal Disease: Less than 15 mL/min/1.73 square meters Performed By: #### C MP, LUPE, ANEU, ALC, ADIFF, ACETA, MDW, GFR, CBC ####[facility] [address] [place], [place] [address] GFR Non- 68 ml/min/1.73sqm Normal [facility] ([place]) Comment on above: Result Comment: GFR Population mean for , Non- Americans Ages 20-29 = 116 mL/min/1.73 sq.m. Ages 30-39 = 107 mL/min/1.73 sq.m. Ages 40-49 = 99 mL/min/1.73 sq.m. Ages 50-59 = 93 mL/min/1.73 sq.m. Ages 60-69 = 85 mL/min/1.73 sq.m. Ages 70+ = 75 mL/min/1.73 sq.m.Chronic Kidney Disease: Less than 60 mL/min/1.73 square metersEnd Stage Renal Disease: Less than 15 mL/min/1.73 square meters Performed By: #### C MP, LUPE, ANEU, ALC, ADIFF, ACETA, MDW, GFR, CBC ####[facility] [address] [place], [place] [address] .MDWon 04-28-2024 Monocyte Distribution Width 17.23 Normal 0.00-20.00 [facility] ([place]) Comment on above: Result Comment: For ED adult patients suspected of sepsis, MDW<=20.0 does not rule out sepsis or risk of sepsis Performed By: #### C MP, LUPE, ANEU, ALC, ADIFF, ACETA, MDW, GFR, CBC ####[place] [address] [place], [place] [address] .NEUABSon 04-28-2024 Neutrophil, Absolute 5.3 10 3/mcL Normal 2.9-6.2 [facility] ([place]) Comment on above: Performed By: #### C MP, LUPE, ANEU, ALC, ADIFF, ACETA, MDW, GFR, CBC ####[facility] [address] [place], [place] [address] ACETAon 04-28-2024 Acetaminophen [Mass/Vol] 0.0 ug/mL Low 10.0-30.0 [facility] ([place]) Comment on above: Performed By: #### C MP, LUPE, ANEU, ALC, ADIFF, ACETA, MDW, GFR, CBC ####[facility] [address] [place] [id number] Reinaldo 04-28-2024 Ethanol Level 3 mg/dL Normal 0-3 [facility] ([place]) Comment on above: Performed By: #### C MP, LUPE, ANEU, ALC, ADIFF, ACETA, MDW, GFR, CBC ####[facility] [address] [place] [id number] CBCon 04-28-2024 Erythrocyte distribution width (RBC) [Ratio] 15.7 % High 11.5-14.5 [facility] ([place]) Comment on above: Performed By: #### C MP, LUPE, ANEU, ALC, ADIFF, ACETA, MDW, GFR, CBC ####[facility] [place] [phone] Hematocrit (Bld) [Volume fraction] 38.7 % Low 42.0-52.0 [facility] ([place]) Comment on above: Performed By: #### C MP, LUPE, ANEU, ALC, ADIFF, ACETA, MDW, GFR, CBC ####[facility] [place], [place] [address] Hgb 13.2 G/dL Low 14.0-18.0 [facility] ([place]) Comment on above: Performed By: #### C MP, LUPE, ANEU, ALC, ADIFF, ACETA, MDW, GFR, CBC ####[facility] [address] [place] [id number] MCH (RBC) [Entitic mass] 29.6 pg Normal 27.0-31.2 [facility] ([place]) Comment on above: Performed By: #### C MP, LUPE, ANEU, ALC, ADIFF, ACETA, MDW, GFR, CBC ####[facility] [address] [place], [place] [address] MCHC 34.0 G/dL Normal 31.8-35.4 [facility] ([place]) Comment on above: Performed By: #### C MP, LUPE, ANEU, ALC, ADIFF, ACETA, MDW, GFR, CBC ####[address] [place], [place] [address] MCV (RBC) [Entitic vol] 87.1 fL Normal 80.0-94.0 A [facility] ([place]) Comment on above: Performed By: #### C MP, LUPE, ANEU, ALC, ADIFF, ACETA, MDW, GFR, CBC ####[address] [place], [place] [address] Platelet 220 10 3/mcL Normal 130-400 [facility] ([place]) Comment on above: Performed By: #### C MP, LUPE, ANEU, ALC, ADIFF, ACETA, MDW, GFR, CBC ####[address] [place], [place] [address] Platelet mean volume (Bld) [Entitic vol] 7.6 fL Normal 7.4-10.4 [facility] ([place]) Comment on above: Performed By: #### C MP, LUPE, ANEU, ALC, ADIFF, ACETA, MDW, GFR, CBC ####[address] [place], [place] [address] RBC 4.44 10 6/mcL Normal 4.04-6.13 [facility] ([place]) Comment on above: Performed By: #### C MP, LUPE, ANEU, ALC, ADIFF, ACETA, MDW, GFR, CBC ####[facility] [address] [place], [place] [address] WBC 9.9 10 3/mcL Normal 4.6-10.8 [facility] ([place]) Comment on above: Performed By: #### C MP, LUPE, ANEU, ALC, ADIFF, ACETA, MDW, GFR, CBC ####[facility] [address] [place], [place] [address] CMPon 04-28-2024 Albumin Level 3.5 G/dL Normal 3.5-5.0 [facility] ([place]) Comment on above: Performed By: #### C MP, LUPE, ANEU, ALC, ADIFF, ACETA, MDW, GFR, CBC ####[facility] [address] [place], [place] [address] Albumin/Globulin [Mass ratio] 1.1 {ratio} Normal 1.1-2.5 [facility] ([place]) Comment on above: Performed By: #### C MP, LUPE, ANEU, ALC, ADIFF, ACETA, MDW, GFR, CBC ####[address] [place], [place] [address] ALP [Catalytic activity/Vol] 155 U/L High 40-135 [facility] ([place]) Comment on above: Performed By: #### C MP, LUPE, ANEU, ALC, ADIFF, ACETA, MDW, GFR, CBC ####[address] [place], [place] [address] ALT [Catalytic activity/Vol] 21 U/L Normal 16-63 [facility] ([place]) Comment on above: Performed By: #### C MP, LUPE, ANEU, ALC, ADIFF, ACETA, MDW, GFR, CBC ####[address] [place], [place] [address] AST [Catalytic activity/Vol] 11 U/L Normal 10-40 [facility] ([place]) Comment on above: Performed By: #### C MP, LUPE, ANEU, ALC, ADIFF, ACETA, MDW, GFR, CBC ####[facility] [address] [place], [place] [address] Bili Total 0.2 mg/dL Normal 0.2-1.0 [facility] ([place]) Comment on above: Result Comment: Use of this assay is not recommended for patients undergoing treatment with eltrombopag due to the potential for falsely elevated results. Performed By: #### C MP, LUPE, ANEU, ALC, ADIFF, ACETA, MDW, GFR, CBC ####[address] [place], [place] [address] BUN/Creatinine Ratio 18 ratio Normal 7-27 [facility] ([place]) Comment on above: Performed By: #### C MP, LUPE, ANEU, ALC, ADIFF, ACETA, MDW, GFR, CBC ####[facility] [address] [place], [place] [address] Calcium [Mass/Vol] 9.5 mg/dL Normal 8.4-10.2 [facility] ([place]) Comment on above: Performed By: #### C MP, LUPE, ANEU, ALC, ADIFF, ACETA, MDW, GFR, CBC ####[address] [place], [place] [address] Chloride [Moles/Vol] 107 mmol/L Normal 98-107 [facility] ([place]) Comment on above: Performed By: #### C MP, LUPE, ANEU, ALC, ADIFF, ACETA, MDW, GFR, CBC ####[facility] [address] [place], [place] [address] CO2 [Moles/Vol] 32 mmol/L High 22-29 [facility] ([place]) Comment on above: Performed By: #### C MP, LUPE, ANEU, ALC, ADIFF, ACETA, MDW, GFR, CBC ####[facility] [address] [place], [place] [address] Creatinine [Mass/Vol] 1.17 mg/dL Normal 0.70-1.30 [facility] ([place]) Comment on above: Performed By: #### C MP, LUPE, ANEU, ALC, ADIFF, ACETA, MDW, GFR, CBC ####[address] [place], [place] [address] Electrolyte Balance 7.0 mEq/L Normal 4.0-15.0 [facility] ([place]) Comment on above: Performed By: #### C MP, LUPE, ANEU, ALC, ADIFF, ACETA, MDW, GFR, CBC ####[address] [place], [place] [address] Globulin 3.2 G/dL Normal [facility] ([place]) Comment on above: Performed By: #### C MP, LPUE, ANEU, ALC, ADIFF, ACETA, MDW, GFR, CBC ####[address] [place], [place] [address] Glucose [Mass/Vol] 156 mg/dL High 70-105 [facility] ([place]) Comment on above: Performed By: #### C MP, LUPE, ANEU, ALC, ADIFF, ACETA, MDW, GFR, CBC ####[address] [place], [place] [address] Potassium [Moles/Vol] 4.2 mmol/L Normal 3.5-5.1 [facility] ([place]) Comment on above: Performed By: #### C MP, LUPE, ANEU, ALC, ADIFF, ACETA, MDW, GFR, CBC ####[address] [place], [place] [address] Sodium [Moles/Vol] 146 mmol/L High 136-145 [facility] ([place]) Comment on above: Performed By: #### C MP, LUPE, ANEU, ALC, ADIFF, ACETA, MDW, GFR, CBC ####[address] [place], [place] [address] Total Protein 6.7 G/dL Normal 6.4-8.2 [facility] ([place]) Comment on above: Performed By: #### C MP, LUPE, ANEU, ALC, ADIFF, ACETA, MDW, GFR, CBC ####[address] [place], [place] [address] Urea nitrogen [Mass/Vol] 21 mg/dL High 7-18 [facility] ([place]) Comment on above: Performed By: #### C MP, LUPE, ANEU, ALC, ADIFF, ACETA, MDW, GFR, CBC ####[address] [place], [place] [address] LABORATORYOrdered By: Bright Alfredo on 04-28-2024 Acetaminophen [Mass/Vol] 0.0 ug/mL Low 10.0 - 30.0 mcg/mL AO Chemistry S Amphetamines Screen Ql (U) Negative *NA* (04/28/24 9:59 PM) Invalid Interpretation Code Negative AO ADM SS Barbiturates Screen Ql (U) Negative *NA* (04/28/24 9:59 PM) Invalid Interpretation Code Negative AO ADM SS Benzodiazepines Ql (U) Negative *NA* (04/28/24 9:59 PM) Invalid Interpretation Code Negative AO ADM SS Benzoylecgonine Screen Ql (U) Negative *NA* (04/28/24 9:59 PM) Invalid Interpretation Code Negative AO ADM SS Cannabinoids Screen Ql (U) Positive *ABN* (04/28/24 9:59 PM) Invalid Interpretation Code Negative AO ADM SS Methadone Screen Ql (U) Negative *NA* (04/28/24 9:59 PM) Invalid Interpretation Code Negative AO ADM SS Opiates Screen Ql (U) Negative *NA* (04/28/24 9:59 PM) Invalid Interpretation Code Negative AO ADM SS Phencyclidine Ql (U) Negative *NA* (04/28/24 9:59 PM) Invalid Interpretation Code Negative AO ADM SS Urine Drugs screened: See Below 5 (04/28/24 9:59 PM) Normal AO Chemistry S Comment on above: Interpretive Data: T his drug screen is a presumptive screening only. No confirmation will be performed unless requested. Drugs screened include: Threshold Amphetamines/Methamphetamines 1,000 ng/mL Barbiturates 200 ng/mL Benzodiazepine metabolites 200 ng/mL Cannabinoids (THC metabolites) 50 ng/mL Cocaine 300 ng/mL Opiates 300 ng/mL Methadone 300 ng/mL Phencyclidine (PCP) 25 ng/mL Testing has been performed FOR MEDICAL PURPOSES ONLY. LABORATORYOrdered By: SYSTEM SYSTEM on 04-28-2024 Albumin BCP dye [Mass/Vol] 3.5 G/dL Normal 3.5 - 5.0 G/dL AO ADM SS Albumin/Globulin [Mass ratio] 1.1 {ratio} Normal 1.1 - 2.5 ratio AO ADM SS ALP [Catalytic activity/Vol] 155 U/L High 40 - 135 U/L AO ADM SS ALT With P-5'-P [Catalytic activity/Vol] 21 U/L Normal 16 - 63 U/L AO ADM SS AST With P-5'-P [Catalytic activity/Vol] 11 U/L Normal 10 - 40 U/L AO ADM SS Basophil, Absolute 0.0 103/mcL Normal 0.0 - 0.2 10^3/mcL AO Workflow SS Basophils/100 WBC (Bld) 0.4 % Normal 0.0 - 2.5 % AO Workflow SS Bilirubin [Mass/Vol] 0.2 mg/dL Normal 0.2 - 1 .0 mg/dL AO ADM SS Comment on above: Interpretive Data: U se of this assay is not recommended for patients undergoing treatment with eltrombopag due to the potential for falsely elevated results. Calcium [Mass/Vol] 9.5 mg/dL Normal 8.4 - 10. 2 mg/dL AO ADM SS Chloride [Moles/Vol] 107 mmol/L Normal 98 - 10 7 mmol/L AO ADM SS CO2 [Moles/Vol] 32 mmol/L High 22 - 29 mmol/L AO ADM SS Creatinine [Mass/Vol] 1.17 mg/dL Normal 0.70 - 1.30 mg/dL AO ADM SS Electrolyte Balance 7.0 mEq/L Normal 4.0 - 15 .0 mEq/L AO ADM SS Eosinophil, Absolute 0.2 103/mcL Normal 0.0 - 0 .4 10^3/mcL AO Workflow SS Eosinophils/100 WBC (Bld) 2.4 % Normal 0.0 - 7.0 % AO Workflow SS Erythrocyte distribution width (RBC) [Ratio] 15.7 % High 11.5 - 14.5 % AO Workflow SS Ethanol [Mass/Vol] 3 mg/dL Normal 0 - 3 mg/dL AO ADM SS GFR/1.73 sq M.predicted among blacks MDRD (S/P/Bld) [Vol rate/Area] 82 ml/min/1.73sqm Invalid Interpretation Code AO Chemistry S Comment on above: Interpretive Data: GFR Population mean for , Non- Americans Ages 20-29 = 116 mL/min/1.73 sq.m. Ages 30-39 = 107 mL/min/1.73 sq.m. Ages 40-49 = 99 mL/min/1.73 sq.m. Ages 50-59 = 93 mL/min/1.73 sq.m. Ages 60-69 = 85 mL/min/1.73 sq.m. Ages 70+ = 75 mL/min/1.73 sq.m. Chronic Kidney Disease: Less than 60 mL/min/1.73 square meters End Stage Renal Disease: Less than 15 mL/min/1.73 square meters GFR/1.73 sq M.predicted among non-blacks MDRD (S/P/Bld) [Vol rate/Area] 68 ml/min/1.73sqm Invalid Interpretation Code AO Chemistry S Comment on above: Interpretive Data: GFR Population mean for , Non- Americans Ages 20-29 = 116 mL/min/1.73 sq.m. Ages 30-39 = 107 mL/min/1.73 sq.m. Ages 40-49 = 99 mL/min/1.73 sq.m. Ages 50-59 = 93 mL/min/1.73 sq.m. Ages 60-69 = 85 mL/min/1.73 sq.m. Ages 70+ = 75 mL/min/1.73 sq.m. Chronic Kidney Disease: Less than 60 mL/min/1.73 square meters End Stage Renal Disease: Less than 15 mL/min/1.73 square meters Globulin 3.2 G/dL Invalid Interpretation Code AO ADM SS Glucose [Mass/Vol] 156 mg/dL High 70 - 105 mg/dL AO ADM SS Hematocrit (Bld) [Volume fraction] 38.7 % Low 42.0 - 52.0 % AO Workflow SS Hemoglobin (Bld) [Mass/Vol] 13.2 G/dL Low 14.0 - 18.0 G/dL AO Workflow SS Lymphocyte, Absolute 3.5 103/mcL Normal 0.8 - 3 .9 10^3/mcL AO Workflow SS Lymphocytes/100 WBC (Bld) 35.0 % Normal 10.0 - 50.0 % AO Workflow SS MCH (RBC) [Entitic mass] 29.6 pg Normal 27.0 - 31.2 pg AO Workflow SS MCHC 34.0 G/dL Normal 31.8 - 35.4 G/dL AO Workflow SS MCV (RBC) [Entitic vol] 87.1 fL Normal 80.0 - 94.0 fL AO Workflow SS Monocyte distribution width Auto (Bld) [Entitic vol] 17.23 1 Normal 0.00 - 20.00 AO Workflow SS Comment on above: Result Comment: For ED adult patients suspected of sepsis, MDW<=20.0 does not rule out sepsis or risk of sepsis Monocyte, Absolute 0.8 103/mcL Normal 0.2 - 1.0 10^3/mcL AO Workflow SS Monocytes/100 WBC (Bld) 8.1 % Normal 1.7 - 13.0 % AO Workflow SS Neutrophil, Absolute 5.3 103/mcL Normal 2.9 - 6 .2 10^3/mcL AO Workflow SS Neutrophils/100 WBC (Bld) 54.1 % Normal 37.0 - 80.0 % AO Workflow SS Platelet mean volume (Bld) [Entitic vol] 7.6 fL Normal 7.4 - 10.4 fL AO Workflow SS Platelets (Bld) [#/Vol] 220 103/mcL Normal 130 - 400 10^3/mcL AO Workflow SS Potassium [Moles/Vol] 4.2 mmol/L Normal 3.5 - 5.1 mmol/L AO ADM SS Protein [Mass/Vol] 6.7 G/dL Normal 6.4 - 8.2 G/dL AO ADM SS RBC (Bld) [#/Vol] 4.44 106/mcL Normal 4.04 - 6.13 10^6/mcL AO Workflow SS Salicylates [Mass/Vol] 3.6 mg/dL Normal 2.8 - 20.0 mg/dL AO ADM SS Sodium [Moles/Vol] 146 mmol/L High 136 - 145 mmol/L AO ADM SS Urea nitrogen [Mass/Vol] 21 mg/dL High 7 - 18 mg/dL AO ADM SS Urea nitrogen/Creatinine [Mass ratio] 18 ratio Normal 7 - 27 ratio AO ADM SS WBC (Bld) [#/Vol] 9.9 103/mcL Normal 4.6 - 10.8 10^3/mcL AO Workflow SS LABORATORYOrdered By: Lan Gupta on 04-28-2024 fentaNYL Screen Ql (U) Negative 2 *NA* (04/28/24 9:59 PM) Invalid Interpretation Code Negative ADM SS Comment on above: Interpretive Data: T esting has been performed FOR MEDICAL PURPOSES ONLY. oxyCODONE Ql (U) Negative 3 *NA* (04/28/24 9:59 PM) Invalid Interpretation Code Negative ADM SS Comment on above: Interpretive Data: T esting has been performed FOR MEDICAL PURPOSES ONLY. SALon 04-28-2024 Salicylate Level 3.6 mg/dL Normal 2.8-20.0 [facility] ([place]) Comment on above: Performed By: #### C MP, LUPE, ANEU, ALC, ADIFF, ACETA, MDW, GFR, CBC ####[facility] [place] [address] UDRUGon 04-28-2024 Amphetamine (u) Negative Normal Negative [facility] ([place]) Comment on above: Performed By: #### U FENTS, UOXYS ####[place] [id number] [place] [id number]#### UDRUG ####[facility] [place] [address] Barbiturate (u) Negative Normal Negative [facility] ([place]) Comment on above: Performed By: #### U FENTS, UOXYS ####[place] [address]#### UDRUG ####[facility] [place] [address] Benzodiazepine (u) Negative Normal Negative [facility] ([place]) Comment on above: Performed By: #### U FENTS UOXYS ####[place] [address]#### UDRUG ####[facility] [place] [address] Cannabinoid (u) Positive Abnormal Negative [facility] ([place]) Comment on above: Performed By: #### U FENTS, UOXYS ####[address] [address]#### UDRUG ####[facility] [place] [address] Cocaine Ql (U) Negative Normal Negative [facility] ([place]) Comment on above: Performed By: #### U FENTS, UOXYS ####[place] [address] [place] [address]#### UDRUG ####[address] [place] [address] Methadone Ql (U) Negative Normal Negative [facility] ([place]) Comment on above: Performed By: #### U FENTS, UOXYS ####[address] [address]#### UDRUG ####[address] [place] [address] Opiate (u) Negative Normal Negative [facility] ([place]) Comment on above: Performed By: #### U Sharon IRBYOXYS ####[place] [address]#### UDRUG ####[address] [place], [place] [address] PCP (u) Negative Normal Negative [facility] ([place]) Comment on above: Performed By: #### U Sharon IRBYOXYS ####[place] [address]#### UDRUG ####[address] [place], [place] [address] Urine Drugs screened: See Below Normal [facility] ([place]) Comment on above: Result Comment: This drug screen is a presumptive screening only.No confirmation will be performed unless requested.Drugs screened include: ThresholdAmphetamines/Methamphetamines 1,000 ng/mLBarbiturates 200 ng/mLBenzodiazepine metabolites 200 ng/mLCannabinoids (THC metabolites) 50 ng/mLCocaine 300 ng/mLOpiates 300 ng/mLMethadone 300 ng/mLPhencyclidine (PCP) 25 ng/mLTesting has been performed FOR MEDICAL PURPOSES ONLY. Performed By: #### U Sharon IRBYOXYS ####[place] [address]#### UDRUG ####[address] [place], [place] [address] .Fentanyl Scrn wo Conf,Uron 04-12-2024 Ur Fentanyl Scrn Negative Normal NEG <1.0 [facility] Comment on above: Performed By: #### C D:[id number] #### [address] [address] Ur Fentanyl Scrn Qnt 0.00 ng/mL Normal <=0.99 [facility] Comment on above: Performed By: #### C D:[id number] #### [address] [address] .UA Microscp Aon 04-12-2024 UA Mucus Present Normal Absent [facility] Comment on above: Performed By: #### . Urinalysis Microscopic Auto #### [address] [place] [address] UA RBC Quant 0 /HPF Normal 0-5 [facility] Comment on above: Performed By: #### . Urinalysis Microscopic Auto #### [address] [address] UA WBC Quant 0 /HPF Normal 0-5 [facility] Comment on above: Performed By: #### . Urinalysis Microscopic Auto #### [address] [address] .eGFRon 04-12-2024 GFR/1.73 sq M.predicted MDRD (S/P/Bld) [Vol rate/Area] mL/min/{1.73_m2} Normal >=60 [facility] Comment on above: Result Comment: [facility] have implemented the eGFR calculation approach that does not have a coefficient for race and that conforms to the NKF-ASN Task Force Recommendations. Stages of Chronic Kidney Disease GFR Stage 3a Mild to moderate loss of kidney function 59 to 45 Stage 3b Moderate to severe loss of kidney function 44 to 33 Stage 4 Severe loss of kidney function 29 to 15 Stage 5 Kidney failure Less than 15 GFR calculated using the CKD-Epi Creatinine Equation (2020): eGFR = 142 X min(SCr/?, 1)? X max(SCr /?, 1)-1.200 X 0.9938Age X 1.012 [if female] Abbreviations/Units: eGFR (estimated glomerular filtration rate) = mL/min/1.73 m2 SCr (standardized serum creatinine) = mg/dL ? = 0.7 (females) or 0.9 (males) ? = -0.241 (females) or -0.302 (males) min = indicates the minimum of SCr/? or 1 max = indicates the maximum of SCr/? or 1 Age = years Performed By: #### E GFR #### [address] [address] CBCon 04-12-2024 Erythrocyte distribution width (RBC) [Ratio] 15.2 % High 11.6-14.8 [facility] Comment on above: Performed By: #### U CI #### [address] [address] Hematocrit (Bld) [Volume fraction] 41.9 % Normal 41.0-53.0 [facility] Comment on above: Performed By: #### U CI #### [address] [address] Hemoglobin (Bld) [Mass/Vol] 13.9 g/dL Normal 13.5-17.5 [facility] Comment on above: Performed By: #### U CI #### [address] [address] MCH (RBC) [Entitic mass] 28.1 pg Normal 27.0-35.0 [facility] Comment on above: Performed By: #### U CI #### [address] [address] MCHC 33.1 % Normal 31.0-37.0 [facility] Comment on above: Performed By: #### U CI #### [address] [address] MCV (RBC) [Entitic vol] 84.8 fL Normal 80.0-100.0 [facility] Comment on above: Performed By: #### U CI #### [address] [address] Platelet 262 x10*3/mcL Normal 150-450 [facility] Comment on above: Performed By: #### U CI #### [address] [address] Platelet mean volume (Bld) [Entitic vol] 8.2 fL Normal 6.7-10.6 [facility] Comment on above: Performed By: #### U CI #### [address] [address] RBC 4.94 x10*6/mcL Normal 4.30-5.80 [facility] Comment on above: Performed By: #### U CI #### [address] [address] WBC 13.1 x10*3/mcL High 4.5-11.0 [facility] Comment on above: Performed By: #### U CI #### [address] [address] CMPon 04-12-2024 Albumin [Mass/Vol] 4.2 g/dL Normal 3.2-4.9 [facility] Comment on above: Performed By: #### C OMP #### [address] [address] Albumin/Globulin [Mass ratio] 1.2 {ratio} Normal 1.1-2.2 [facility] Comment on above: Performed By: #### C OMP #### [address] [address] Alk Phos 112 IU/L High 32-91 [facility] Comment on above: Performed By: #### C OMP #### [address] [address] ALT [Catalytic activity/Vol] 16 U/L Low 17-63 [facility] Comment on above: Performed By: #### C OMP #### [address] [address] Anion gap [Moles/Vol] 11 mmol/L Normal 4-12 [facility] Comment on above: Performed By: #### C OMP #### [address] [address] AST [Catalytic activity/Vol] 19 U/L Normal 15-41 [facility] Comment on above: Performed By: #### C OMP #### [address] [address] Bili Total 0.6 mg/dL Normal 0.3-1.2 [facility] Comment on above: Performed By: #### C OMP #### [address] [address] Calcium [Mass/Vol] 9.5 mg/dL Normal 8.5-10.3 [facility] Comment on above: Performed By: #### C OMP #### [address] [place] [address] Chloride [Moles/Vol] 104 mmol/L Normal 98-110 [facility] Comment on above: Performed By: #### C OMP #### [address] [address] CO2 [Moles/Vol] 26 mmol/L Normal 22-32 [facility] Comment on above: Performed By: #### C OMP #### [address] [address] Creatinine [Mass/Vol] 0.88 mg/dL Normal 0.61-1.24 [facility] Comment on above: Performed By: #### C OMP #### [address] [address] Glucose [Mass/Vol] 105 mg/dL High 70-99 [facility] Comment on above: Performed By: #### C OMP #### [address] [address] Potassium [Moles/Vol] 3.7 mmol/L Normal 3.4-4.8 [facility] Comment on above: Performed By: #### C OMP #### [address] [address] Protein [Mass/Vol] 7.8 g/dL Normal 6.5-8.1 [facility] Comment on above: Performed By: #### C OMP #### [address] [place] [address] Sodium [Moles/Vol] 141 mmol/L Normal 133-142 [facility] Comment on above: Performed By: #### C OMP #### [address] [address] Urea nitrogen [Mass/Vol] 18 mg/dL Normal 8-26 [facility] Comment on above: Performed By: #### C OMP #### [address] [address] Urea nitrogen/Creatinine [Mass ratio] 20.5 mg/mg High 10.0-20.0 [facility] Comment on above: Performed By: #### C OMP #### [facility] [address] [place] [address] ED Clinical Summaryon 2023 ED Clinical Summary (Inserted Image. Annelise ble to display) [facility] [address] [place] [address] ED Clinical Summary Person Information Name: Talia [place] Age: 43 Years : 1980 Sex: Male PCP: Marital Status: Single Phone: Race: White Ethnicity: Not or Language: Kuwaiti Visit Reason: Psychiatric problem; homicidal Acuity: 2 Enc Type: Emergency Med Service: Emergency Medicine Arrival: 04/12/2024 12:39:18 Discharge: 04/12/2024 22:30:00 LOS: 000 09:51 Checkin: 04/12/2024 12:39:18 Checkout: 04/12/2024 22:30:00 Dispo Type: Psychiatric Facility Address: [address] [place] [phone] Provider Notes: History of Present Illness Patient is a 43 year old male presenting to the ED via PD with a psychological issue and confusion. He states he was driving and listening to the radio before hearing someone turn on a TV. He denies current suicidal or homicidal ideation and any hallucinations. He does not currently talk to a counselor, but would like to. Patient has history of diabetes but changed his diet since then and states that he was "beat to " for eating cholesterol and now tries to "eat better." He ate a sandwich for breakfast. He uses marijuana and occasionally drinks, but was unable to clearly state if he took any medications. He follows with Dr. Matute in [place], [place] for primary care. Review of Systems As reviewed in the HPI. All other systems reviewed are negative or normal. Physical Exam CONSTITUTIONAL: [no apparent distress, well appearing] SKIN: [warm, dry, no jaundice, hives or petechiae] EYES: [pupils are equally round, extraocular movements intact without nystagmus, clear conjunctiva, non-icteric sclera] HENT: [normocephalic, atraumatic, moist mucus membranes, oropharynx clear without exudates] NECK: [Nontender and supple with no nuchal rigidity, no lymphadenopathy, full range of motion] PULMONARY: [clear to auscultation without wheezes, rhonchi, or rales, normal excursion, no accessory muscle use and no stridor] CARDIOVASCULAR: [regular rate, rhythm, normal S1 and S2. No appreciated murmurs. Strong radial pulses with intact distal perfusion] GASTROINTESTINAL: [soft, non-tender, non-distended, no palpable masses, no rebound or guarding] GENITOURINARY: [No costovertebral angle tenderness to palpation] LYMPHATICS: [no edema in lower extremities, no lymphadenopathy] MUSCULOSKELETAL: [right leg broken and healed wrong, now deformed; old laceration to?right palm without infection but tender; otherwise, extremities are nontender to palpation and have no gross deformity, no edema, redness, or swelling] NEUROLOGIC: [alert and oriented x 3, GCS 15, normal mentation and speech. Moves all extremities x 4 without motor or sensory deficit, gait is stable without ataxia] PSYCHIATRIC: [normal mood and affect, difficult to follow thought process when talking] Reexamination/Reevaluat ion unchanged Diagnosis: Problems No Problems Documented Smoking Status: Smoking Status 10 or more cigarettes (1/2 pack or more)/day in last 30 days Functional Status: Sensory Deficits: History of Falls: Mobility Assistance Prior to Admission: ADLs: Current Level of Assistance for Self-Care/Mobility: Cognitive Status: Allergies haloperidol (Insomnia NOS) risperiDONE (Numbness) Laboratory or Other Results This Visit (last charted value for your 04/12/2024 visit) Hematology 04/12/2024 1:12 PM WBC: 13.1 x10 RBC: 4.94 x10 MCV: 84.8 fL -- Normal range between ( 80.0 and 100.0 ) MCHC: 33.1 % -- Normal range between ( 31.0 and 37.0 ) Hct: 41.9 % -- Normal range between ( 41.0 and 53.0 ) MCH: 28.1 pg -- Normal range between ( 27.0 and 35.0 ) Hgb: 13.9 g/dL -- Normal range between ( 13.5 and 17.5 ) Mean Platelet Volume: 8.2 fL -- Normal range between ( 6.7 and 10.6 ) Platelet: 262 x10 RDW: 15.2 % -- Normal range between ( 11.6 and 14.8 ) Urinalysis 04/12/2024 1:12 PM UA Color: Light-Yellow UA Urobilinogen: Normal mg/dL UA Bili: Negative UA Ketones: Negative mg/dL UA Leukocyte Esterase: Negative UA Nitrite: Negative UA Glucose: Normal mg/dL UA Protein: Negative mg/dL UA Blood: Negative UA Spec Grav: 1.023 -- Normal range between ( 1.003 and 1.035 ) UA pH: 6.0 UA Clarity: Clear UA Source: Clean Catch UA Mucus: Present /LPF UA WBC Quant: 0 /HPF -- Normal range between ( 0 and 5 ) UA RBC Quant: 0 /HPF -- Normal range between ( 0 and 5 ) Chemistry 04/12/2024 1:12 PM Creatinine Lvl: 0.88 mg/dL -- Normal range between ( 0.61 and 1.24 ) BUN: 18 mg/dL -- Normal range between ( 8 and 26 ) Glucose Lvl: 105 mg/dL -- Normal range between ( 70 and 99 ) Potassium Lvl: 3.7 mmol/L -- Normal range between ( 3.4 and 4.8 ) AST: 19 IU/L -- Normal range between ( 15 and 41 ) ALT: 16 IU/L -- Normal range between ( 17 and 63 ) Sodium Lvl: 141 mmol/L -- Normal range between ( 133 and (more content not included)... Normal [facility] ED Note-Nursingon 04-12-2024 ED Note-Nursing Pt noted to be screaming and yelling at staff demanding to leave. PT noted to be talking to self in room with various emotions of anger, laughing, and periods of crying. PT medicated with Ativan and moved to room 9 Electronically signed by ___ Estella Song 04/12/24 15:46 EDT Normal [facility] ED Note-Physicianon 04-12-20 ED Note-Physician Chief Complaint Pt is confused states he killed his mother, mother is not ED Attending Attestation Patient was signed out to me by Dr. Larios medically cleared by the previous provider. Patient pending transfer. Accepted at psychiatric facility. Was given 2 of Ativan given agitation. Transferred to stable condition for further treatment inpatient psychiatry. Attending Note Vitals & Measurements T: 36.9 ?C (Oral) HR: 91 (Peripheral) RR: 18 BP: 118/80 SpO2: 98% HT: 160 cm WT: 100 kg (Dosing) Lab Results Automated Hematology LATEST RESULTS WBC 04/12/24 13:12 13.1 High RBC 04/12/24 13:12 4.94 Hgb 04/12/24 13:12 13.9 Hct 04/12/24 13:12 41.9 MCV 04/12/24 13:12 84.8 MCH 04/12/24 13:12 28.1 MCHC 04/12/24 13:12 33.1 RDW 04/12/24 13:12 15.2 High Platelet 04/12/24 13:12 262 Mean Platelet Volume 04/12/24 13:12 8.2 Routine Chemistry LATEST RESULTS Sodium Lvl 04/12/24 13:12 141 Potassium Lvl 04/12/24 13:12 3.7 Chloride 04/12/24 13:12 104 CO2 04/12/24 13:12 26 Anion Gap 04/12/24 13:12 11 Glucose Lvl 04/12/24 13:12 105 High BUN 04/12/24 13:12 18 Creatinine Lvl 04/12/24 13:12 0.88 Estimated GFR 04/12/24 13:12 >60 BUN Crea Ratio 04/12/24 13:12 20.5 High Bili Total 04/12/24 13:12 0.6 Alk Phos 04/12/24 13:12 112 High AST 04/12/24 13:12 19 ALT 04/12/24 13:12 16 Low Total Protein 04/12/24 13:12 7.8 Albumin Lvl 04/12/24 13:12 4.2 AG Ratio 04/12/24 13:12 1.2 Calcium Lvl 04/12/24 13:12 9.5 Thyroid Studies LATEST RESULTS T4 Total 04/12/24 13:12 9.3 TSH 04/12/24 13:12 1.99 Random Urine Chemistry LATEST RESULTS Ur Creatinine Tox Scrn 04/12/24 13:12 138.5 Serum Toxicology LATEST RESULTS Ethanol, Plasma 04/12/24 13:12 <10 Urine Toxicology LATEST RESULTS Ur Amph Scrn 04/12/24 13:12 Negative Ur Alix Scrn 04/12/24 13:12 Negative Ur Benzodia Scrn 04/12/24 13:12 Negative Ur Cannab Scrn 04/12/24 13:12 Positive Abnormal Ur Cocaine Scrn 04/12/24 13:12 Negative Ur Methadone Scn 04/12/24 13:12 Negative Ur Oxy Screen 04/12/24 13:12 Negative Ur Opiate Scrn 04/12/24 13:12 Negative Ur PCP Scrn 04/12/24 13:12 Negative Ur Fentanyl Scrn 04/12/24 13:12 Negative UA Macroscopic LATEST RESULTS UA Source 04/12/24 13:12 Clean Catch UA Color 04/12/24 13:12 Light-Yellow UA Clarity 04/12/24 13:12 Clear UA Spec Grav 04/12/24 13:12 1.023 UA pH 04/12/24 13:12 6.0 UA Protein 04/12/24 13:12 Negative UA Glucose 04/12/24 13:12 Normal UA Bili 04/12/24 13:12 Negative UA Urobilinogen 04/12/24 13:12 Normal UA Leukocyte Esterase 04/12/24 13:12 Negative UA Nitrite 04/12/24 13:12 Negative UA Ketones 04/12/24 13:12 Negative UA Blood 04/12/24 13:12 Negative UA Microscopic LATEST RESULTS UA RBC Quant 04/12/24 13:12 0 UA WBC Quant 04/12/24 13:12 0 UA Mucus 04/12/24 13:12 Present Electronically signed by ___ Maldonado Gu MD 04/12/24 23:56 EDT Normal [facility] ED Note-Physician Chief Complaint Pt is confused states he killed his mother, mother is not History of Present Illness Patient is a 43 year old male presenting to the ED via PD with a psychological issue and confusion. He states he was driving and listening to the radio before hearing someone turn on a TV. He denies current suicidal or homicidal ideation and any hallucinations. He does not currently talk to a counselor, but would like to. Patient has history of diabetes but changed his diet since then and states that he was "beat to " for eating cholesterol and now tries to "eat better." He ate a sandwich for breakfast. He uses marijuana and occasionally drinks, but was unable to clearly state if he took any medications. He follows with Dr. Matute in [place], [place] for primary care. Review of Systems As reviewed in the HPI. All other systems reviewed are negative or normal. Physical Exam CONSTITUTIONAL: [no apparent distress, well appearing] SKIN: [warm, dry, no jaundice, hives or petechiae] EYES: [pupils are equally round, extraocular movements intact without nystagmus, clear conjunctiva, non-icteric sclera] HENT: [normocephalic, atraumatic, moist mucus membranes, oropharynx clear without exudates] NECK: [Nontender and supple with no nuchal rigidity, no lymphadenopathy, full range of motion] PULMONARY: [clear to auscultation without wheezes, rhonchi, or rales, normal excursion, no accessory muscle use and no stridor] CARDIOVASCULAR: [regular rate, rhythm, normal S1 and S2. No appreciated murmurs. Strong radial pulses with intact distal perfusion] GASTROINTESTINAL: [soft, non-tender, non-distended, no palpable masses, no rebound or guarding] GENITOURINARY: [No costovertebral angle tenderness to palpation] LYMPHATICS: [no edema in lower extremities, no lymphadenopathy] MUSCULOSKELETAL: [right leg broken and healed wrong, now deformed; old laceration to right palm without infection but tender; otherwise, extremities are nontender to palpation and have no gross deformity, no edema, redness, or swelling] NEUROLOGIC: [alert and oriented x 3, GCS 15, normal mentation and speech. Moves all extremities x 4 without motor or sensory deficit, gait is stable without ataxia] PSYCHIATRIC: [normal mood and affect, difficult to follow thought process when talking] Vitals & Measurements HT: 160 cm WT: 100 kg (Dosing) Additional Vitals No qualifying data available. Procedure No qualifying data available. ASA Documentation Medical Decision Making Efra Magana scribing for and in the presence of Dr. Larios. Scribe Attestation: The information in this document, created by the medical social worker for me, accurately reflects the services I personally performed and the decisions made by me. Scribe Attestation: The information in this document, created by the medical social worker for me, accurately reflects the services I personally performed and the decisions made by me. This report has been created using voice recognition software. It may contain minor errors which are inherent in voice recognition technology. MEDICAL DECISION MAKING Number and Complexity of Problems Differential Diagnosis: _psychosis, hodan, HI, SI MDM Data External documents reviewed: _ My EKG interpretation: _ My CT interpretation: _ My X-ray interpretation: _ My Ultrasound interpretation: _ Decision rules/scores evaluated: _ Discussed with: _prescreener Decision rules/scores evaluated: _ ? HEART Score: Not Completed ? PERC Rule: _ ? NEXUS C-spine Criteria: _ ? Kenaitze Ankle Rule: _ ? Kenaitze Knee Rule: _ ? Wells Criteria for DVT: _ ? Wells Criteria for PE: _ Discussed with: _prescreener Treatment and Disposition ED Course: _labs, ativan, prescreen Shared decision making: _discussed plan - patient agreeable Code status: _not addressed Reexamination/Reevaluat ion unchanged Assessment/Plan Psychiatric problem (Complaint of) Plan:my shift is ending and patient to be checked out to Dr. Phillip to follow up on prescreen and make disposition. Orders: Consult to Psychiatric Prescreener Regular Level 7 Diet Refresh vitals and sections below: Problem List/Past Medical History Ongoing No qualifying data Historical No qualifying data Medications Inpatient No active inpatient medications Home No active home medications Allergies haloperidol (Insomnia NOS) risperiDONE (Numbness) Social History Alcohol Current Substance Abuse Current, Marijuana Tobacco 10 or more cigarettes (1/2 pack or more)/day in last 30 days Use:. Diagnostic Results ___ Efra Magana Electronically signed by ___ Karen MCKENNA Hilary Gaspar 04/12/2024 15:53 EDT Normal [facility] Ethanolon 04-12-2024 Ethanol, Plasma <10 Normal <=9 [facility] Comment on above: Result Comment: To c onvert mg/dL to g/dL, divide result by 1,000. Legal limit of intoxication is 80 mg/dL (0.08 g/dL). Performed By: #### U CI #### [address] [address] Progress Noteon 04-12-2024 Progress Note Talia moved to room 9 from room 6 due to behavior and screaming. Security was called and is present. Talia has been talking to people w/ no one w/ him. Admits to smoking marajana. Also just told no one that he has been drinking alcohol. wants to leave and just wants his belongings back. ___ PhillKeiry Ashlee Normal [facility] TSHon 04-12-2024 TSH Qn 1.99 m[IU]/L Normal 0.45-5.33 [facility] Comment on above: Result Comment: Refe rence Ranges for individuals from to 18 years of age were obtained from The Flaquita Elmore Handbook (20 ed) published by [facility]. Reference Ranges for Females: Females, 1st Trimester 0.05 ? 3.7 uIU/mL Females, 2nd Trimester 0.31 ? 4.35 uIU/mL Females, 3rd Trimester 0.41 ? 5.18 uIU/mL Performed By: #### T SH #### [address] [address] Total T4on 04-12-2024 T4 [Mass/Vol] 9.3 ug/dL Normal 5.0-11.5 [facility] Comment on above: Performed By: #### T 4 #### [address] [address] UA w Culture if Indon 2023 Color (U) Light-Yellow Normal Yellow [facility] Comment on above: Performed By: #### U CI #### [address] [place] [address] Ketones Ql (U) Negative Normal Negative [facility] Comment on above: Performed By: #### U CI #### [address] [place] [address] UA Blood Negative Normal Negative [facility] Comment on above: Performed By: #### U CI #### [address] [place] [address] UA Clarity Clear Normal Clear [facility] Comment on above: Performed By: #### U CI #### [address] [place] [address] UA Glucose Normal Normal Negative [facility] Comment on above: Performed By: #### U CI #### [address] [place] [address] UA Leukocyte Esterase Negative Normal Negative [facility] Comment on above: Performed By: #### U CI #### [address] [place] [address] UA Nitrite Negative Normal Negative [facility] Comment on above: Performed By: #### U CI #### [address] [place] [address] UA pH 6.0 Normal 4.5 - 7.8 [facility] Comment on above: Performed By: #### U CI #### [address] [place] [address] UA Protein Negative Normal Negative [facility] Comment on above: Performed By: #### U CI #### [address] [place] [address] UA Source Clean Catch Normal [facility] Comment on above: Performed By: #### U CI #### [address] [place] [address] UA Spec Grav 1.023 Normal 1.003-1.03 5 [facility] Comment on above: Performed By: #### U CI #### [address] [address] UA Urobilinogen Normal Normal 0.2 - 1.0 [facility] Comment on above: Performed By: #### U CI #### [address] [address] Urobilinogen (U) [Mass/Vol] Negative Normal Negative [facility] Comment on above: Performed By: #### U CI #### [address] [address] UDS Compon 04-12-2024 Creatinine [Mass/Vol] 138.5 mg/dL Normal Bl [facility] Comment on above: Performed By: #### U CI #### [address] [address] Ur Amph Scrn Negative Normal NEG = <1000 [facility] Comment on above: Performed By: #### U CI #### [address] [address] Ur Alix Scrn Negative Normal NEG = <200 [facility] Comment on above: Performed By: #### U CI #### [address] [address] Ur Benzodia Scrn Negative Normal NEG = <200 [facility] Comment on above: Performed By: #### U CI #### [address] [address] Ur Cannab Scrn Positive Abnormal NEG = <50 [facility] Comment on above: Result Comment: This unconfirmed positive screening result is to be used for medical treatment purposes only. Unconfirmed screening results must not be used for non-medical purposes (e.g. employment testing, legal testing). Performed By: #### U CI #### [address] [address] Ur Cocaine Scrn Negative Normal NEG = <300 [facility] Comment on above: Performed By: #### U CI #### [address] [address] Ur Methadone Scn Negative Normal NEG = <300 [facility] Comment on above: Performed By: #### U CI #### [address] [address] Ur Opiate Scrn Negative Normal NEG = <300 [facility] Comment on above: Performed By: #### U CI #### [address] [address] Ur Oxy Screen Negative Normal NEG = <100 [facility] Comment on above: Performed By: #### U CI #### [address] [address] Ur Oxy Scrn Qnt 0 ng/mL Normal <=99 [facility] Comment on above: Performed By: #### U CI #### [address] [address] Ur PCP Scrn Negative Normal NEG = <25 [facility] Comment on above: Performed By: #### U CI #### [address] [address] UA pH 6.0 Normal 4.5 - 7.8 [facility] Comment on above: Performed By: #### U CI #### [address] [address] UA Spec Grav 1.023 Normal 1.003-1.03 5 [facility] Comment on above: Performed By: #### U CI #### [address] [address] 36on 03-29-2024 36 Spoke with nurse Evie rosado and notified her no further treatment is needed at this time to monitor. Normal [facility] 03-26-2024 [address] Pa. No further treatment needed at this time. R hand healing well. Continue to monitor RLE. July MARQUIS, PARandiC MG Infectious Disease Normal [facility] 36 [facility] e-mailed me pictures of his left hand RLE please see attached photos in the TE thread for your review. Sending to July too since Myra is out of the office today. Normal [facility] 03-25-2024 36 Called [facility] and spoke with Rafy and asked if he can send the picture to my work e-mail address. Explained to him Holly from their facility sent the pictures via fax but we are unable to make out the pictures since they are black and white. My e-mail address was given to Rafy and he stated he will try to get those pictures over to me. He mentioned that they have an infectious disease nurse on staff there too. [facility] 36 Pictures of the the L hand and RLE received via fax but hard to make out due to the quality from the fax. Sent another fax to Holly @ [facility] requesting she e-mail me the pictures for better quality. [facility] CNPNon 03-25-2024 CNPN Telephone (RADHA) TALIA RUBY ([id number]) 1980 [facility] Date Time Provider Department 03/25/24 KING MATUTE During your visit today, we recorded the following information about you: Rossy Bains LPN 03/25/2024 3:07 PM Signed Received admission/discharge summary from [facility]. Placed in provider's inbox for review. Route to MA scanning Allergies As of Date: 03/25/2024 Noted Allergy Reaction ACETAMINOPHEN 04/14/2017 6 - Diarrhea ARIPIPRAZOLE 04/14/2017 14 - Other: See Comments CHLORPHENIRAMINE 04/14/2017 6 - Diarrhea DEXTROMETHORPHAN 04/14/2017 6 - Diarrhea GUAIFENESIN 04/14/2017 6 - Diarrhea HALDOL (HALOPERIDOL) 10/16/2010 1 - Mental Status Change Comments: Mind goes blank METFORMIN 09/13/2016 5 - Intolerance Comments: GI upset and abdominal pain with XR formulation, metallic taste RISPERDAL (RISPERIDONE) 10/16/2010 13 - Dystonia Date Reviewed: 12/28/2023 Reviewed by: Yulia Cottrell RN - Fully Assessed Reason for Visit: Received Outside Medical Records [[id number]] Cmt: Stephanie Inpatient Prescriptions as of 03/25/2024 - divalproex DR (DEPAKOTE) 500 mg EC tablet Take 1 tablet by mouth once daily AND 2 tablets daily at bedtime. - FOLDING WALKER WITH 5" WHEELS 2 wheeled walker - SITagliptin phosphate (JANUVIA) 100 mg tablet Take 1 tablet by mouth once daily. - cholecalciferol, Vitamin D3, (VITAMIN D3) 1,250 mcg (50,000 unit) cap capsule Take 1 capsule by mouth one time a week. - simvastatin (ZOCOR) 40 mg tablet Take 1 tablet by mouth daily at bedtime. for cholesterol - levothyroxine (SYNTHROID) 50 mcg tablet take 1 tablet by mouth once daily on an empty stomach - gabapentin (NEURONTIN) 300 mg capsule Take 300 mg by mouth three times a day. - hydrOXYzine pamoate (VISTARIL) 50 mg capsule take 1 capsule by mouth every 6 hours if needed for anxiety - QUEtiapine (SEROQUEL) 300 mg tablet - traZODone (DESYREL) 50 mg tablet - blood sugar diagnostic (BLOOD GLUCOSE TEST) test strip Test blood sugar(s) two (2) times daily. Dx: Other DM Code E11.9. Insulin: No - Lancets lancets Test blood sugar(s) two (2) times daily. Dx: Other DM Code E11.9. Insulin: No. - alcohol swabs (ALCOHOL PADS) Use as needed two (2) times daily to test blood glucose. - blood sugar diagnostic (ONETOUCH VERIO TEST STRIPS) test strip Test blood sugar(s) 2 times daily. Dx: Type 2 DM - Controlled E11.9 Insulin: No - Blood-Glucose Sensor (FREESTYLE LAYA 3 SENSOR) fernando Apply new sensor every fourteen (14) days to upper arm. - CPAP/BIPAP/OTHER Type .CPAPSettings into a note to see current settings/supplies/DME information. - glimepiride (AMARYL) 4 mg tablet take 1 tablet by mouth once daily with breakfast - prazosin (MINIPRESS) 1 mg cap - Blood Pressure Kit-Extra Large kit Check blood pressure weekly and as needed, - multivitamin tablet Take 1 tablet by mouth once daily. - lancets (ONE TOUCH DELICA) 33 gauge misc Test blood sugar(s) 2 daily. Dx: Type 2 DM - Controlled E11.9 Insulin: No - TRUE METRIX GLUCOSE METER misc as directed. - acetaminophen (TYLENOL) 325 mg tablet Take 2 tablets by mouth every 6 hours as needed. Problem List As Of Date 03/25/2024 Noted Resolved Impaired fasting blood sugar [R73.01] 10/16/2010 Bipolar disorder (HCC) [F31.9] 10/16/2010 Family history of diabetes mellitus [Z83.3] 10/16/2010 Elevated blood pressure reading without diagnos*11/16/2010 BMI 50.0-59.9, adult (HCC) [Z68.43] 04/13/2015 Type 2 diabetes mellitus without complication, *05/13/2016 Obstructive sleep apnea [G47.33] 12/18/2016 Hyperlipidemia, mixed [E78.2] 04/03/2017 Tobacco abuse, in remission [F17.201] 11/27/2017 Osteomyelitis (HCC) [M86.9] 11/27/2017 2017 Osteomyelitis of right tibia (HCC) [M86.9] 11/26/2017 02/10/2018 Vitamin D insufficiency [E55.9] 12/01/2017 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*12/30/2017 Tobacco use [Z72.0] 12/30/2017 Vitamin D deficiency [E55.9] 12/30/2017 08/07/2020 Osteomyelitis of right tibia (HCC) [M86.9] 02/10/2018 11/13/2018 Rosacea [L71.9] 04/27/2018 Schizophrenia ([facility]) [F20.9] MAXIMO treated with BiPAP [G47.33] 12/18/2016 Osteomyelitis of right tibia, unspecified type *12/27/2023 Nicotine use disorder, F17.2 [F17.200] 01/07/2024 Encounter Status:Closed by ROSSY BAINS on 03/25/[address] 03-24-2024 36 Received call back f jose Barrera with [facility] and she stated they need a release requesting the photos since the patient did not come from our hospital even though we were the treating provider for the infection. Faxed on our fax cover letter requesting pictures of his L hand and RLE. Faxed to [phone] [facility] 36 Spoke to Holly with [facility] and asked if she can email me updated pictures of his L hand and RLE. My email address was provided. Holly will call be back if she is unable to send the pictures. [facility] 36 Pt scheduled for EOT follow up with our office at 230pm today. No show. Our office called facility, was informed he had a malfunctioning PICC line on 03/12 and had that PICC line replaced at [facility]. We were not notified of this previously. Facility also states patient was given final dose of abx today and had PICC line removed. Of note, ID did not give orders for PICC line removal prior to EOT evaluation. He was then transferred to a [facility] today. Our office to call and get updated wound photos of L hand RLE to ensure no new infectious concerns. Will follow. 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 Cx + MSSA. Tdap booster given 02/25/24. Pt is on 4 week course of IV cefazolin through 03/24/24. Of note, pt with chronic RLE OM -> follows ortho from another facility and has plans for eventual amputation soon. Pt has been at [facility] since hospital discharge. Plan: Pt completed 4 week IV abx course as of today. Can discontinue abx. PICC line removed today in office Pt to follow up with his ortho surgeon for his scheduled surgery for chronic RLE OM. No follow up needed unless patient has new issues/concerns. Pt in agreement with plan. All questions answered to satisfaction. [facility] Progress Note See above. Pt to fol low up with established ortho surgeon for his scheduled surgery. [facility] CARECOORDon 03-19-2024 CARECOORD Patient Choice Patient Name: TALIA RUBY Date of : [address] [facility] DRUGUon 03-17-2024 Amphetamine (u) Negative Normal Negative [facility] ([place]) Comment on above: Performed By: #### D RUGU ####[address] [address] Barbiturate (u) Negative Normal Negative [facility] ([place]) Comment on above: Performed By: #### Bhavesh RUGU ####[address] [address] Benzodiazepine (u) Negative Normal Negative [facility] ([place]) Comment on above: Performed By: #### Bhavesh RUGU ####[address] [address] Cannabinoid (u) Negative Normal Negative [facility] ([place]) Comment on above: Performed By: #### Bhavesh RUGU ####[place] [address] Cocaine Ql (U) Negative Normal Negative [facility] ([place]) Comment on above: Performed By: #### Bhavesh RUGU ####[place] [address] Fentanyl (u) Negative Normal Negative [facility] ([place]) Comment on above: Result Comment: Test ing has been performed FOR MEDICAL PURPOSES ONLY. Performed By: #### Bhavesh RUGU ####[address] [address] Methadone Ql (U) Negative Normal Negative [facility] ([place]) Comment on above: Performed By: #### Bhavesh RUGU ####[address] [address] Opiate (u) Negative Normal Negative [facility] ([place]) Comment on above: Performed By: #### D RUGU ####[address] [address] Oxycodone (u) Positive Abnormal Negative [facility] ([place]) Comment on above: Result Comment: Test ing has been performed FOR MEDICAL PURPOSES ONLY. Performed By: #### D RUGU ####[place] [address] PCP (u) Negative Normal Negative [facility] ([place]) Comment on above: Performed By: #### Bhavesh DENIS ####[address] [address] Propoxyphene (u) Negative Normal Negative [facility] ([place]) Comment on above: Performed By: #### D RUDIU ####[address] [address] U pH Drug Scrn 7.0 Normal 5.0-8.0 [facility] ([place]) Comment on above: Performed By: #### D RUDIU ####[place] [address] Urine Drugs screened: See Below Normal [facility] ([place]) Comment on above: Result Comment: This drug screen is a presumptive screening only.No confirmation will be performed unless requested.Drugs screened include: ThresholdAmphetamines/Methamphetamines 1,000 ng/mLBarbiturates 200 ng/mLBenzodiazepine metabolites 200 ng/mLCannabinoids (THC metabolites) 50 ng/mLBenzoylecognine (Cocaine metab) 300 ng/mLOpiates 300 ng/mLPhencyclidine (PCP) 25 ng/mLMethadone 300 ng/mLPropoxyphene 300 ng/mLFentanyl 1.0 ng/mLOxycodone 100 ng/mLTesting has been performed FOR MEDICAL PURPOSES ONLY. Performed By: #### D CIRA ####[place] [address] LABORATORYOrdered By: Gerda Sanchez on 03-17-2024 Amphetamines Screen Ql (U) Negative *NA* (03/17/24 4:56 PM) Invalid Interpretation Code Negative AH ADM SS Barbiturates Screen Ql (U) Negative *NA* (03/17/24 4:56 PM) Invalid Interpretation Code Negative AH ADM SS Benzodiazepines Ql (U) Negative *NA* (03/17/24 4:56 PM) Invalid Interpretation Code Negative AH ADM SS Benzoylecgonine Screen Ql (U) Negative *NA* (03/17/24 4:56 PM) Invalid Interpretation Code Negative AH ADM SS Cannabinoids Screen Ql (U) Negative *NA* (03/17/24 4:56 PM) Invalid Interpretation Code Negative AH ADM SS fentaNYL Screen Ql (U) Negative 2 *NA* (03/17/24 4:56 PM) Invalid Interpretation Code Negative AH ADM SS Comment on above: Interpretive Data: T esting has been performed FOR MEDICAL PURPOSES ONLY. Methadone Screen Ql (U) Negative *NA* (03/17/24 4:56 PM) Invalid Interpretation Code Negative AH ADM SS Opiates Screen Ql (U) Negative *NA* (03/17/24 4:56 PM) Invalid Interpretation Code Negative AH ADM SS oxyCODONE Ql (U) Positive 3 *ABN* (03/17/24 4:56 PM) Invalid Interpretation Code Negative AH ADM SS Comment on above: Interpretive Data: T esting has been performed FOR MEDICAL PURPOSES ONLY. pH (U) 7.0 [pH] Normal 5.0 - 8.0 AH Chemistry S Phencyclidine Ql (U) Negative *NA* (03/17/24 4:56 PM) Invalid Interpretation Code Negative AH ADM SS Propoxyphene Screen Ql (U) Negative *NA* (03/17/24 4:56 PM) Invalid Interpretation Code Negative AH ADM SS Urine Drugs screened: See Below 5 (03/17/24 4:56 PM) Normal AH Chemistry S Comment on above: Interpretive Data: T his drug screen is a presumptive screening only. No confirmation will be performed unless requested. Drugs screened include: Threshold Amphetamines/Methamphetamines 1,000 ng/mL Barbiturates 200 ng/mL Benzodiazepine metabolites 200 ng/mL Cannabinoids (THC metabolites) 50 ng/mL Benzoylecognine (Cocaine metab) 300 ng/mL Opiates 300 ng/mL Phencyclidine (PCP) 25 ng/mL Methadone 300 ng/mL Propoxyphene 300 ng/mL Fentanyl 1.0 ng/mL Oxycodone 100 ng/mL Testing has been performed FOR MEDICAL PURPOSES ONLY. CBLon 03-16-2024 CBL Normal [facility] CKon 03-16-2024 CK [Catalytic activity/Vol] 94 U/L Normal 7-185 [facility]) Comment on above: Performed By: #### C K ####[place] [address] DRUGSon 03-16-2024 Acetaminophen [Mass/Vol] ug/mL Low 10.0-20.0 [facility]) Comment on above: Performed By: #### D RUGS ####[address] [address] Salicylate Lvl (ds) <3.0 Low 10.0-25.0 [facility] ([place]) Comment on above: Performed By: #### D RUGS ####[address] [address] Ethanol Level <10.0 Normal [facility] ([place]) Comment on above: Performed By: #### D RUGS ####[address] [address] Serum Drugs screened: See Below Normal l [facility] ([place]) Comment on above: Result Comment: This drug screen is a presumptive screening only. No confirmation will be performed unless requested.Drugs included in the ER serum drug screen are: ThresholdEthanol 10.0 mg/dLSalicylate 2.0 mg/dlAcetaminophen 2.0 mcg/mLTesting has been performed FOR MEDICAL PURPOSES ONLY. Performed By: #### D RUGS ####[place] [address] LABORATORYOrdered By: Jesus Sylvester on 03-16-2024 Acetaminophen [Mass/Vol] mcg/mL Low 10.0 - 20.0 mcg/mL AH ADM SS Salicylates [Mass/Vol] mg/dL Low 10.0 - 25.0 mg/dL AH ADM SS LABORATORYOrdered By: SYSTEM SYSTEM on 03-16-2024 CK [Catalytic activity/Vol] 94 U/L Normal 7 - 185 U/L AH ADM SS LABORATORYOrdered By: Gerda Sanchez on 03-16-2024 Ethanol [Mass/Vol] mg/dL Invalid Interpretation Code ADM SS Serum Drugs screened: See Below 4 (03/16/24 12:07 PM) Normal Chemistry S Comment on above: Interpretive Data: T his drug screen is a presumptive screening only. No confirmation will be performed unless requested. Drugs included in the ER serum drug screen are: Threshold Ethanol 10.0 mg/dL Salicylate 2.0 mg/dl Acetaminophen 2.0 mcg/mL Testing has been performed FOR MEDICAL PURPOSES ONLY. .Auto Diffon 03-14-2024 Basophil, Absolute 0.0 10 3/mcL Normal 0.0-0.3 [facility] ([place]) Comment on above: Performed By: #### G FR, ANEU, BMP, ADIFF, MG, CBC ####[address] [address] Basophils/100 WBC (Bld) 0.3 % Normal 0.0-2.5 A [facility] ([place]) Comment on above: Performed By: #### G FR, ANEU, BMP, ADIFF, MG, CBC ####[address] [address] Eosinophil, Absolute 0.2 10 3/mcL Normal 0.0-0.7 [facility] ([place]) Comment on above: Performed By: #### G FR, ANEU, BMP, ADIFF, MG, CBC ####[address] [address] Eosinophils/100 WBC (Bld) 3.2 % Normal 0.0-6.0 [facility] ([place]) Comment on above: Performed By: #### G FR, ANEU, BMP, ADIFF, MG, CBC ####[address] [address] Lymphocyte, Absolute 3.0 10 3/mcL Normal 0.9-4.3 [facility] ([place]) Comment on above: Performed By: #### G FR, ANEU, BMP, ADIFF, MG, CBC ####[address] [address] Lymphocytes/100 WBC (Bld) 39.5 % Normal 20.0-40.0 [facility] ([place]) Comment on above: Performed By: #### G FR, ANEU, BMP, ADIFF, MG, CBC ####[address] [address] Monocyte, Absolute 0.6 10 3/mcL Normal 0.1-1.4 [facility] ([place]) Comment on above: Performed By: #### G FR, ANEU, BMP, ADIFF, MG, CBC ####[address] [address] Monocytes/100 WBC (Bld) 8.0 % Normal 2.0-13.0 A [facility]ly [facility], later [facility] ([place]) Comment on above: Performed By: #### G FR, ANEU, BMP, ADIFF, MG, CBC ####[address] [address] Neutrophils/100 WBC (Bld) 49.0 % Low 50.0-75.0 [facility] ([place]) Comment on above: Performed By: #### G FR, ANEU, BMP, ADIFF, MG, CBC ####[address] [address] .GFRon 03-14-2024 GFR Non- >60 Normal [facility] ([place]) Comment on above: Result Comment: GFR Population mean for , Non- Americans Ages 20-29 = 116 mL/min/1.73 sq.m. Ages 30-39 = 107 mL/min/1.73 sq.m. Ages 40-49 = 99 mL/min/1.73 sq.m. Ages 50-59 = 93 mL/min/1.73 sq.m. Ages 60-69 = 85 mL/min/1.73 sq.m. Ages 70+ = 75 mL/min/1.73 sq.m.Chronic Kidney Disease: Less than 60 mL/min/1.73 square metersEnd Stage Renal Disease: Less than 15 mL/min/1.73 square meters Performed By: #### G FR, ANEU, BMP, ADIFF, MG, CBC ####[address] [address] GFR >60 Normal [facility] ([place]) Comment on above: Result Comment: GFR Population mean for , Non- Americans Ages 20-29 = 116 mL/min/1.73 sq.m. Ages 30-39 = 107 mL/min/1.73 sq.m. Ages 40-49 = 99 mL/min/1.73 sq.m. Ages 50-59 = 93 mL/min/1.73 sq.m. Ages 60-69 = 85 mL/min/1.73 sq.m. Ages 70+ = 75 mL/min/1.73 sq.m.Chronic Kidney Disease: Less than 60 mL/min/1.73 square metersEnd Stage Renal Disease: Less than 15 mL/min/1.73 square meters Performed By: #### G FR, ANEU, BMP, ADIFF, MG, CBC ####[place] [address] .NEUABSon 03-14-2024 Neutrophil, Absolute 3.7 10 3/mcL Normal 2.3-8.1 [facility] ([place]) Comment on above: Performed By: #### G FR, ANEU, BMP, ADIFF, MG, CBC ####[place] [address] BMPon 03-14-2024 BUN/Creatinine Ratio 22.7 ratio High 10.0-22.0 [facility] ([place] Comment on above: Performed By: #### G FR, ANEU, BMP, ADIFF, MG, CBC ####[place] [address] Calcium [Mass/Vol] 9.4 mg/dL Normal 8.7-10.4 [facility] ([place]) Comment on above: Performed By: #### G FR, ANEU, BMP, ADIFF, MG, CBC ####[place] [address] Chloride [Moles/Vol] 105 mmol/L Normal 98-110 [facility] ([place] Comment on above: Performed By: #### G FR, ANEU, BMP, ADIFF, MG, CBC ####[place] [address] CO2 [Moles/Vol] 33 mmol/L High 22-32 [facility] ([place]) Comment on above: Performed By: #### G FR, ANEU, BMP, ADIFF, MG, CBC ####[place] [address] Creatinine [Mass/Vol] 0.75 mg/dL Normal 0.60-1.40 [facility] ([place]) Comment on above: Performed By: #### G FR, ANEU, BMP, ADIFF, MG, CBC ####[place] [address] Electrolyte Balance 3.0 mEq/L Low 4.0-15.0 [facility] ([place]) Comment on above: Performed By: #### G FR, ANEU, BMP, ADIFF, MG, CBC ####[place] [address] Glucose [Mass/Vol] 117 mg/dL High 70-110 [facility] ([place]) Comment on above: Performed By: #### G FR, ANEU, BMP, ADIFF, MG, CBC ####[place] [address] Potassium [Moles/Vol] 4.2 mmol/L Normal 3.5-5.0 [facility] ([place]) Comment on above: Performed By: #### G FR, ANEU, BMP, ADIFF, MG, CBC ####[place] [address] Sodium [Moles/Vol] 141 mmol/L Normal 136-145 [facility] ([place]) Comment on above: Performed By: #### G FR, ANEU, BMP, ADIFF, MG, CBC ####[place] [address] Urea nitrogen [Mass/Vol] 17.0 mg/dL Normal 8.0-22.0 [facility] ([place]) Comment on above: Performed By: #### G FR, ANEU, BMP, ADIFF, MG, CBC ####[place] [address] CBCon 03-14-2024 Erythrocyte distribution width (RBC) [Ratio] 14.6 % Normal 11.5-15.5 [facility] ([place]) Comment on above: Performed By: #### G FR, ANEU, BMP, ADIFF, MG, CBC ####[place] [address] Hematocrit (Bld) [Volume fraction] 37.5 % Low 40.0-52.0 [facility] ([place]) Comment on above: Performed By: #### G FR, ANEU, BMP, ADIFF, MG, CBC ####[place] [address] Hgb 13.0 G/dL Normal 13.0-17.5 [facility] ([place] Comment on above: Performed By: #### G FR, ANEU, BMP, ADIFF, MG, CBC ####[place] [address] MCH (RBC) [Entitic mass] 28.6 pg Normal 27.0-33.0 [facility] ([place]) Comment on above: Performed By: #### G FR, ANEU, BMP, ADIFF, MG, CBC ####[place] [address] MCHC 34.7 G/dL Normal 32.0-36.0 [facility] ([place]) Comment on above: Performed By: #### G FR, ANEU, BMP, ADIFF, MG, CBC ####[place] [address] MCV (RBC) [Entitic vol] 82.4 fL Normal 81.0-100.0 A [facility] ([place] Comment on above: Performed By: #### G FR, ANEU, BMP, ADIFF, MG, CBC ####[place] [address] Platelet 229 10 3/mcL Normal 150-450 [facility] ([place]) Comment on above: Performed By: #### G FR, ANEU, BMP, ADIFF, MG, CBC ####[place] [address] Platelet mean volume (Bld) [Entitic vol] 8.3 fL Normal 6.4-10.5 [facility] ([place]) Comment on above: Performed By: #### G FR, ANEU, BMP, ADIFF, MG, CBC ####[place] [address] RBC 4.55 10 6/mcL Normal 4.50-6.00 [facility] ([place]) Comment on above: Performed By: #### G FR, ANEU, BMP, ADIFF, MG, CBC ####[place] [address] WBC 7.6 10 3/mcL Normal 4.5-10.8 [facility] ([place]) Comment on above: Performed By: #### G FR, ANEU, BMP, ADIFF, MG, CBC ####[place] [id number] [place] [address] LABORATORYOrdered By: SYSTEM SYSTEM on 03-14-2024 Basophils (Bld) [#/Vol] 0.0 103/mcL Normal 0.0 - 0.3 10^3/mcL AH Workflow SS Basophils/100 WBC (Bld) 0.3 % Normal 0.0 - 2.5 % AH Workflow SS Calcium [Mass/Vol] 9.4 mg/dL Normal 8.7 - 10. 4 mg/dL ADM SS Chloride [Moles/Vol] 105 mmol/L Normal 98 - 11 0 mEq/L ADM SS CO2 [Moles/Vol] 33 mmol/L High 22 - 32 mEq/L ADM SS Creatinine [Mass/Vol] 0.75 mg/dL Normal 0.60 - 1.40 mg/dL ADM SS Electrolyte Balance 3.0 mEq/L Low 4.0 - 15 .0 mEq/L ADM SS Eosinophils (Bld) [#/Vol] 0.2 103/mcL Normal 0.0 - 0.7 10^3/mcL AH Workflow SS Eosinophils/100 WBC (Bld) 3.2 % Normal 0.0 - 6.0 % AH Workflow SS Erythrocyte distribution width (RBC) [Ratio] 14.6 % Normal 11.5 - 15.5 % AH Workflow SS GFR/1.73 sq M.predicted among blacks MDRD (S/P/Bld) [Vol rate/Area] ml/min/1.73sqm Invalid Interpretation Code Chemistry S Comment on above: Interpretive Data: GFR Population mean for , Non- Americans Ages 20-29 = 116 mL/min/1.73 sq.m. Ages 30-39 = 107 mL/min/1.73 sq.m. Ages 40-49 = 99 mL/min/1.73 sq.m. Ages 50-59 = 93 mL/min/1.73 sq.m. Ages 60-69 = 85 mL/min/1.73 sq.m. Ages 70+ = 75 mL/min/1.73 sq.m. Chronic Kidney Disease: Less than 60 mL/min/1.73 square meters End Stage Renal Disease: Less than 15 mL/min/1.73 square meters GFR/1.73 sq M.predicted among non-blacks MDRD (S/P/Bld) [Vol rate/Area] ml/min/1.73sqm Invalid Interpretation Code Chemistry S Comment on above: Interpretive Data: GFR Population mean for , Non- Americans Ages 20-29 = 116 mL/min/1.73 sq.m. Ages 30-39 = 107 mL/min/1.73 sq.m. Ages 40-49 = 99 mL/min/1.73 sq.m. Ages 50-59 = 93 mL/min/1.73 sq.m. Ages 60-69 = 85 mL/min/1.73 sq.m. Ages 70+ = 75 mL/min/1.73 sq.m. Chronic Kidney Disease: Less than 60 mL/min/1.73 square meters End Stage Renal Disease: Less than 15 mL/min/1.73 square meters Glucose [Mass/Vol] 117 mg/dL High 70 - 110 mg/dL ADM SS Hematocrit (Bld) [Volume fraction] 37.5 % Low 40.0 - 52.0 % AH Workflow SS Hemoglobin (Bld) [Mass/Vol] 13.0 G/dL Normal 13.0 - 17.5 G/dL AH Workflow SS Lymphocytes (Bld) [#/Vol] 3.0 103/mcL Normal 0.9 - 4.3 10^3/mcL AH Workflow SS Lymphocytes/100 WBC (Bld) 39.5 % Normal 20.0 - 40.0 % AH Workflow SS Magnesium [Mass/Vol] 1.4 mg/dL Low 1.6 - 2 .4 mg/dL ADM SS MCH (RBC) [Entitic mass] 28.6 pg Normal 27.0 - 33.0 pg AH Workflow SS MCHC 34.7 G/dL Normal 32.0 - 36.0 G/dL AH Workflow SS MCV (RBC) [Entitic vol] 82.4 fL Normal 81.0 - 100.0 fL AH Workflow SS Monocytes (Bld) [#/Vol] 0.6 103/mcL Normal 0.1 - 1.4 10^3/mcL AH Workflow SS Monocytes/100 WBC (Bld) 8.0 % Normal 2.0 - 13.0 % AH Workflow SS Neutrophils (Bld) [#/Vol] 3.7 103/mcL Normal 2.3 - 8.1 10^3/mcL AH Workflow SS Neutrophils/100 WBC (Bld) 49.0 % Low 50.0 - 75.0 % AH Workflow SS Platelet mean volume (Bld) [Entitic vol] 8.3 fL Normal 6.4 - 10.5 fL AH Workflow SS Platelets (Bld) [#/Vol] 229 103/mcL Normal 150 - 450 10^3/mcL AH Workflow SS Potassium [Moles/Vol] 4.2 mmol/L Normal 3.5 - 5.0 mEq/L ADM SS RBC (Bld) [#/Vol] 4.55 106/mcL Normal 4.50 - 6.00 10^6/mcL AH Workflow SS Sodium [Moles/Vol] 141 mmol/L Normal 136 - 145 mEq/L ADM SS Urea nitrogen [Mass/Vol] 17.0 mg/dL Normal 8.0 - 22.0 mg/dL ADM SS Urea nitrogen/Creatinine [Mass ratio] 22.7 ratio High 10.0 - 22.0 ratio ADM SS WBC (Bld) [#/Vol] 7.6 103/mcL Normal 4.5 - 10.8 10^3/mcL Workflow SS MGon 03-14-2024 Magnesium [Mass/Vol] 1.4 mg/dL Low 1.6-2.4 [facility] ([place]) Comment on above: Performed By: #### G FR, ANEU, BMP, ADIFF, MG, CBC ####[address] [address] .Auto Diffon 03-13-2024 Basophil, Absolute 0.0 10 3/mcL Normal 0.0-0.3 [facility] ([place]) Comment on above: Performed By: #### A LULU, BMP, MG, CBC, GFR, ADIFF ####[address] [address] Basophils/100 WBC (Bld) 0.3 % Normal 0.0-2.5 A [facility] ([place]) Comment on above: Performed By: #### A LULU, BMP, MG, CBC, GFR, ADIFF ####[address] [address] Eosinophil, Absolute 0.2 10 3/mcL Normal 0.0-0.7 [facility] ([place]) Comment on above: Performed By: #### A LULU, BMP, MG, CBC, GFR, ADIFF ####[address] [address] Eosinophils/100 WBC (Bld) 3.3 % Normal 0.0-6.0 [facility] ([place]) Comment on above: Performed By: #### A LULU, BMP, MG, CBC, GFR, ADIFF ####[address] [address] Lymphocyte, Absolute 1.9 10 3/mcL Normal 0.9-4.3 [facility] ([place]) Comment on above: Performed By: #### A LULU, BMP, MG, CBC, GFR, ADIFF ####[address] [address] Lymphocytes/100 WBC (Bld) 33.5 % Normal 20.0-40.0 [facility] ([place]) Comment on above: Performed By: #### A LULU, BMP, MG, CBC, GFR, ADIFF ####[address] [address] Monocyte, Absolute 0.4 10 3/mcL Normal 0.1-1.4 [facility] ([place] Comment on above: Performed By: #### A LULU, BMP, MG, CBC, GFR, ADIFF ####[address] [address] Monocytes/100 WBC (Bld) 7.1 % Normal 2.0-13.0 [facility] ([place]) Comment on above: Performed By: #### A LULU, BMP, MG, CBC, GFR, ADIFF ####[address] [address] Neutrophils/100 WBC (Bld) 55.8 % Normal 50.0-75.0 [facility] ([place]) Comment on above: Performed By: #### A LULU, BMP, MG, CBC, GFR, ADIFF ####[address] [address] .GFRon 03-13-2024 GFR >60 Normal [facility] ([place] Comment on above: Result Comment: GFR Population mean for , Non- Americans Ages 20-29 = 116 mL/min/1.73 sq.m. Ages 30-39 = 107 mL/min/1.73 sq.m. Ages 40-49 = 99 mL/min/1.73 sq.m. Ages 50-59 = 93 mL/min/1.73 sq.m. Ages 60-69 = 85 mL/min/1.73 sq.m. Ages 70+ = 75 mL/min/1.73 sq.m.Chronic Kidney Disease: Less than 60 mL/min/1.73 square metersEnd Stage Renal Disease: Less than 15 mL/min/1.73 square meters Performed By: #### A LULU, BMP, MG, CBC, GFR, ADIFF ####[address] [address] GFR Non- >60 Normal [facility] ([place] Comment on above: Result Comment: GFR Population mean for , Non- Americans Ages 20-29 = 116 mL/min/1.73 sq.m. Ages 30-39 = 107 mL/min/1.73 sq.m. Ages 40-49 = 99 mL/min/1.73 sq.m. Ages 50-59 = 93 mL/min/1.73 sq.m. Ages 60-69 = 85 mL/min/1.73 sq.m. Ages 70+ = 75 mL/min/1.73 sq.m.Chronic Kidney Disease: Less than 60 mL/min/1.73 square metersEnd Stage Renal Disease: Less than 15 mL/min/1.73 square meters Performed By: #### A LULU, BMP, MG, CBC, GFR, ADIFF ####[address] [address] .NEUABSon 03-13-2024 Neutrophil, Absolute 3.2 10 3/mcL Normal 2.3-8.1 [facility] ([place] Comment on above: Performed By: #### A LULU, BMP, MG, CBC, GFR, ADIFF ####[address] [address] BMPon 03-13-2024 BUN/Creatinine Ratio 20.7 ratio Normal 10.0-22.0 [facility] ([place] Comment on above: Performed By: #### A LULU, BMP, MG, CBC, GFR, ADIFF ####[place] [address] Calcium [Mass/Vol] 8.9 mg/dL Normal 8.7-10.4 [facility] ([place]) Comment on above: Performed By: #### A LULU, BMP, MG, CBC, GFR, ADIFF ####[address] [address] Chloride [Moles/Vol] 108 mmol/L Normal 98-110 [facility] ([place] Comment on above: Performed By: #### A LULU, BMP, MG, CBC, GFR, ADIFF ####[place] [address] CO2 [Moles/Vol] 31 mmol/L Normal 22-32 [facility] ([place] Comment on above: Performed By: #### A LULU, BMP, MG, CBC, GFR, ADIFF ####[place] [address] Creatinine [Mass/Vol] 0.87 mg/dL Normal 0.60-1.40 [facility] ([place] Comment on above: Performed By: #### A LULU, BMP, MG, CBC, GFR, ADIFF ####[place] [address] Electrolyte Balance 2.0 mEq/L Low 4.0-15.0 [facility] ([place]) Comment on above: Performed By: #### A LULU, BMP, MG, CBC, GFR, ADIFF ####[place] [address] Glucose [Mass/Vol] 124 mg/dL High 70-110 [facility] ([place] Comment on above: Performed By: #### A LULU, BMP, MG, CBC, GFR, ADIFF ####[place] [address] Potassium [Moles/Vol] 4.1 mmol/L Normal 3.5-5.0 [facility] ([place] Comment on above: Performed By: #### A LULU, BMP, MG, CBC, GFR, ADIFF ####[place] [address] Sodium [Moles/Vol] 141 mmol/L Normal 136-145 [facility] ([place] Comment on above: Performed By: #### A LULU, BMP, MG, CBC, GFR, ADIFF ####[place] [address] Urea nitrogen [Mass/Vol] 18.0 mg/dL Normal 8.0-22.0 [facility] ([place] Comment on above: Performed By: #### A LULU, BMP, MG, CBC, GFR, ADIFF ####[place] [address] CBCon 03-13-2024 Erythrocyte distribution width (RBC) [Ratio] 14.6 % Normal 11.5-15.5 [facility] ([place] Comment on above: Performed By: #### A LULU, BMP, MG, CBC, GFR, ADIFF ####[place] [address] Hematocrit (Bld) [Volume fraction] 35.3 % Low 40.0-52.0 [facility] ([place] Comment on above: Performed By: #### A LULU, BMP, MG, CBC, GFR, ADIFF ####[place] [address] Hgb 12.4 G/dL Low 13.0-17.5 [facility] ([place] Comment on above: Performed By: #### A LULU, BMP, MG, CBC, GFR, ADIFF ####[place] [address] MCH (RBC) [Entitic mass] 28.8 pg Normal 27.0-33.0 [facility] ([place] Comment on above: Performed By: #### A LULU, BMP, MG, CBC, GFR, ADIFF ####[place] [address] MCHC 35.0 G/dL Normal 32.0-36.0 [facility] ([place] Comment on above: Performed By: #### A LULU, BMP, MG, CBC, GFR, ADIFF ####[place] [address] MCV (RBC) [Entitic vol] 82.4 fL Normal 81.0-100.0 A [facility] ([place] Comment on above: Performed By: #### A LULU, BMP, MG, CBC, GFR, ADIFF ####[place] [address] Platelet 214 10 3/mcL Normal 150-450 [facility] ([place] Comment on above: Performed By: #### A LULU, BMP, MG, CBC, GFR, ADIFF ####[place] [address] Platelet mean volume (Bld) [Entitic vol] 8.1 fL Normal 6.4-10.5 [facility] ([place] Comment on above: Performed By: #### A LULU, BMP, MG, CBC, GFR, ADIFF ####[place] [address] RBC 4.29 10 6/mcL Low 4.50-6.00 [facility] ([place] Comment on above: Performed By: #### A LULU, BMP, MG, CBC, GFR, ADIFF ####[place] [address] WBC 5.7 10 3/mcL Normal 4.5-10.8 [facility] ([place] Comment on above: Performed By: #### A LULU, BMP, MG, CBC, GFR, ADIFF ####[place] [address] LABORATORYOrdered By: SYSTEM SYSTEM on 03-13-2024 Basophils (Bld) [#/Vol] 0.0 103/mcL Normal 0.0 - 0.3 10^3/mcL AH Workflow SS Basophils/100 WBC (Bld) 0.3 % Normal 0.0 - 2.5 % AH Workflow SS Calcium [Mass/Vol] 8.9 mg/dL Normal 8.7 - 10. 4 mg/dL AH ADM SS Chloride [Moles/Vol] 108 mmol/L Normal 98 - 11 0 mEq/L AH ADM SS CO2 [Moles/Vol] 31 mmol/L Normal 22 - 32 mEq/L AH ADM SS Creatinine [Mass/Vol] 0.87 mg/dL Normal 0.60 - 1.40 mg/dL ADM SS Electrolyte Balance 2.0 mEq/L Low 4.0 - 15 .0 mEq/L AH ADM SS Eosinophils (Bld) [#/Vol] 0.2 103/mcL Normal 0.0 - 0.7 10^3/mcL AH Workflow SS Eosinophils/100 WBC (Bld) 3.3 % Normal 0.0 - 6.0 % Workflow SS Erythrocyte distribution width (RBC) [Ratio] 14.6 % Normal 11.5 - 15.5 % AH Workflow SS GFR/1.73 sq M.predicted among blacks MDRD (S/P/Bld) [Vol rate/Area] ml/min/1.73sqm Invalid Interpretation Code [place] Chemistry S Comment on above: Interpretive Data: GFR Population mean for , Non- Americans Ages 20-29 = 116 mL/min/1.73 sq.m. Ages 30-39 = 107 mL/min/1.73 sq.m. Ages 40-49 = 99 mL/min/1.73 sq.m. Ages 50-59 = 93 mL/min/1.73 sq.m. Ages 60-69 = 85 mL/min/1.73 sq.m. Ages 70+ = 75 mL/min/1.73 sq.m. Chronic Kidney Disease: Less than 60 mL/min/1.73 square meters End Stage Renal Disease: Less than 15 mL/min/1.73 square meters GFR/1.73 sq M.predicted among non-blacks MDRD (S/P/Bld) [Vol rate/Area] ml/min/1.73sqm Invalid Interpretation Code [place] Chemistry S Comment on above: Interpretive Data: GFR Population mean for , Non- Americans Ages 20-29 = 116 mL/min/1.73 sq.m. Ages 30-39 = 107 mL/min/1.73 sq.m. Ages 40-49 = 99 mL/min/1.73 sq.m. Ages 50-59 = 93 mL/min/1.73 sq.m. Ages 60-69 = 85 mL/min/1.73 sq.m. Ages 70+ = 75 mL/min/1.73 sq.m. Chronic Kidney Disease: Less than 60 mL/min/1.73 square meters End Stage Renal Disease: Less than 15 mL/min/1.73 square meters Glucose [Mass/Vol] 124 mg/dL High 70 - 110 mg/dL ADM SS Hematocrit (Bld) [Volume fraction] 35.3 % Low 40.0 - 52.0 % AH Workflow SS Hemoglobin (Bld) [Mass/Vol] 12.4 G/dL Low 13.0 - 17.5 G/dL AH Workflow SS Lymphocytes (Bld) [#/Vol] 1.9 103/mcL Normal 0.9 - 4.3 10^3/mcL AH Workflow SS Lymphocytes/100 WBC (Bld) 33.5 % Normal 20.0 - 40.0 % AH Workflow SS Magnesium [Mass/Vol] 1.3 mg/dL Low 1.6 - 2 .4 mg/dL ADM SS MCH (RBC) [Entitic mass] 28.8 pg Normal 27.0 - 33.0 pg AH Workflow SS MCHC 35.0 G/dL Normal 32.0 - 36.0 G/dL AH Workflow SS MCV (RBC) [Entitic vol] 82.4 fL Normal 81.0 - 100.0 fL AH Workflow SS Monocytes (Bld) [#/Vol] 0.4 103/mcL Normal 0.1 - 1.4 10^3/mcL AH Workflow SS Monocytes/100 WBC (Bld) 7.1 % Normal 2.0 - 13.0 % AH Workflow SS Neutrophils (Bld) [#/Vol] 3.2 103/mcL Normal 2.3 - 8.1 10^3/mcL AH Workflow SS Neutrophils/100 WBC (Bld) 55.8 % Normal 50.0 - 75.0 % AH Workflow SS Platelet mean volume (Bld) [Entitic vol] 8.1 fL Normal 6.4 - 10.5 fL AH Workflow SS Platelets (Bld) [#/Vol] 214 103/mcL Normal 150 - 450 10^3/mcL AH Workflow SS Potassium [Moles/Vol] 4.1 mmol/L Normal 3.5 - 5.0 mEq/L AH ADM SS RBC (Bld) [#/Vol] 4.29 106/mcL Low 4.50 - 6.00 10^6/mcL AH Workflow SS Sodium [Moles/Vol] 141 mmol/L Normal 136 - 145 mEq/L ADM SS Urea nitrogen [Mass/Vol] 18.0 mg/dL Normal 8.0 - 22.0 mg/dL AH ADM SS Urea nitrogen/Creatinine [Mass ratio] 20.7 ratio Normal 10.0 - 22.0 ratio AH ADM SS WBC (Bld) [#/Vol] 5.7 103/mcL Normal 4.5 - 10.8 10^3/mcL AH Workflow SS MGon 03-13-2024 Magnesium [Mass/Vol] 1.3 mg/dL Low 1.6-2.4 [facility] ([place] Comment on above: Performed By: #### A LULU, BMP, MG, CBC, GFR, ADIFF ####[address] [address] .Auto Diffon 03-11-2024 Basophil, Absolute 0.0 10 3/mcL Normal 0.0-0.3 [facility] ([place] Comment on above: Performed By: #### C ELVIN MITCHELL MDW, BMP, GFR, ADIFF ####[place] [address] Basophils/100 WBC (Bld) 0.4 % Normal 0.0-2.5 A [facility] ([place] Comment on above: Performed By: #### C ELVIN MITCHELL MDW, BMP, GFR, ADIFF ####[place] [address] Eosinophil, Absolute 0.1 10 3/mcL Normal 0.0-0.7 [facility] ([place]) Comment on above: Performed By: #### C ELVIN MITCHELL MDW, BMP, GFR, ADIFF ####[address] [address] Eosinophils/100 WBC (Bld) 1.3 % Normal 0.0-6.0 [facility] ([place]) Comment on above: Performed By: #### C ELVIN MITCHELL MDW, BMP, GFR, ADIFF ####[place] [address] Lymphocyte, Absolute 2.4 10 3/mcL Normal 0.9-4.3 [facility] ([place] Comment on above: Performed By: #### C ELVIN MITCHELL MDW, BMP, GFR, ADIFF ####[address] [address] Lymphocytes/100 WBC (Bld) 27.9 % Normal 20.0-40.0 [facility] ([place]) Comment on above: Performed By: #### C PAULA, ELVIN, MDW, BMP, GFR, ADIFF ####[place] [id number] [place] [address] Monocyte, Absolute 0.7 10 3/mcL Normal 0.1-1.4 [facility] ([place]) Comment on above: Performed By: #### C PAULA, ELVIN, MDW, BMP, GFR, ADIFF ####[address] [address] Monocytes/100 WBC (Bld) 7.8 % Normal 2.0-13.0 A [facility] ([place]) Comment on above: Performed By: #### C PAULA, ELVIN, W, BMP, GFR, ADIFF ####[address] [address] Neutrophils/100 WBC (Bld) 62.6 % Normal 50.0-75.0 [facility] ([place]) Comment on above: Performed By: #### C PAULA, MD ELVINW, BMP, GFR, ADIFF ####[address] [address] .GFRon 03-11-2024 GFR Non- >60 Normal [facility] ([place] Comment on above: Result Comment: GFR Population mean for , Non- Americans Ages 20-29 = 116 mL/min/1.73 sq.m. Ages 30-39 = 107 mL/min/1.73 sq.m. Ages 40-49 = 99 mL/min/1.73 sq.m. Ages 50-59 = 93 mL/min/1.73 sq.m. Ages 60-69 = 85 mL/min/1.73 sq.m. Ages 70+ = 75 mL/min/1.73 sq.m.Chronic Kidney Disease: Less than 60 mL/min/1.73 square metersEnd Stage Renal Disease: Less than 15 mL/min/1.73 square meters Performed By: #### C BC, ELVIN, MDW, BMP, GFR, ADIFF ####[address] [address] GFR >60 Normal [facility] ([place] Comment on above: Result Comment: GFR Population mean for , Non- Americans Ages 20-29 = 116 mL/min/1.73 sq.m. Ages 30-39 = 107 mL/min/1.73 sq.m. Ages 40-49 = 99 mL/min/1.73 sq.m. Ages 50-59 = 93 mL/min/1.73 sq.m. Ages 60-69 = 85 mL/min/1.73 sq.m. Ages 70+ = 75 mL/min/1.73 sq.m.Chronic Kidney Disease: Less than 60 mL/min/1.73 square metersEnd Stage Renal Disease: Less than 15 mL/min/1.73 square meters Performed By: #### C PAULA, ELVIN, W, BMP, GFR, ADIFF ####[place] [address] .MDWon 03-11-2024 Monocyte Distribution Width 18.36 Normal 0.00-20.00 [facility] ([place]) Comment on above: Result Comment: For ED adult patients suspected of sepsis, MDW<=20.0 does not rule out sepsis or risk of sepsis Performed By: #### C ELVIN MITCHELL, MDW, BMP, GFR, ADIFF ####[address] [id number] .NEUABSon 03-11-2024 Neutrophil, Absolute 5.4 10 3/mcL Normal 2.3-8.1 [facility] ([place]) Comment on above: Performed By: #### C PAULA, ELVIN, W, BMP, GFR, ADIFF ####[place] [address] BMPon 03-11-2024 BUN/Creatinine Ratio 25.0 ratio High 10.0-22.0 [facility] ([place]) Comment on above: Performed By: #### C PAULA, ELVIN, W, BMP, GFR, ADIFF ####[place] [address] Calcium [Mass/Vol] 9.3 mg/dL Normal 8.7-10.4 [facility] ([place]) Comment on above: Performed By: #### C ELVIN MITCHELL MDW, BMP, GFR, ADIFF ####[address] [address] Chloride [Moles/Vol] 107 mmol/L Normal 98-110 [facility] ([place]) Comment on above: Performed By: #### C ELVIN MITCHELL MDW, BMP, GFR, ADIFF ####[address] [address] CO2 [Moles/Vol] 27 mmol/L Normal 22-32 [facility] ([place]) Comment on above: Performed By: #### C ELVIN MITCHELL MDW, BMP, GFR, ADIFF ####[address] [address] Creatinine [Mass/Vol] 0.72 mg/dL Normal 0.60-1.40 [facility] ([place]) Comment on above: Performed By: #### C ELVIN MITCHELL MDW, BMP, GFR, ADIFF ####[address] [address] Electrolyte Balance 8.0 mEq/L Normal 4.0-15.0 [facility] ([place]) Comment on above: Performed By: #### C ELVIN MITCHELL MDW, BMP, GFR, ADIFF ####[address] [address] Glucose [Mass/Vol] 134 mg/dL High 70-110 [facility] ([place]) Comment on above: Performed By: #### C ELVIN MITCHELL MDW, BMP, GFR, ADIFF ####[address] [address] Potassium [Moles/Vol] 3.9 mmol/L Normal 3.5-5.0 [facility] ([place]) Comment on above: Performed By: #### C ELVIN MITCHELL MDW, BMP, GFR, ADIFF ####[address] [address] Sodium [Moles/Vol] 142 mmol/L Normal 136-145 [facility] ([place]) Comment on above: Performed By: #### C BC, ELVIN, MDW, BMP, GFR, ADIFF ####[place] [address] Urea nitrogen [Mass/Vol] 18.0 mg/dL Normal 8.0-22.0 [facility] ([place]) Comment on above: Performed By: #### C BC, ANEU, MDW, BMP, GFR, ADIFF ####[place] [address] CBCon 03-11-2024 Erythrocyte distribution width (RBC) [Ratio] 14.8 % Normal 11.5-15.5 [facility] ([place]) Comment on above: Performed By: #### C BC, ELVIN, MDW, BMP, GFR, ADIFF ####[place] [address] Hematocrit (Bld) [Volume fraction] 39.2 % Low 40.0-52.0 [facility] ([place]) Comment on above: Performed By: #### C BC, ELVIN, MDW, BMP, GFR, ADIFF ####[place] [address] Hgb 13.4 G/dL Normal 13.0-17.5 [facility] ([place]) Comment on above: Performed By: #### C BC, ANEU, MDW, BMP, GFR, ADIFF ####[place] [address] MCH (RBC) [Entitic mass] 28.2 pg Normal 27.0-33.0 [facility] ([place]) Comment on above: Performed By: #### C BC, ELVIN, MDW, BMP, GFR, ADIFF ####[place] [address] MCHC 34.2 G/dL Normal 32.0-36.0 [facility] ([place]) Comment on above: Performed By: #### C BC, ANEU, MDW, BMP, GFR, ADIFF ####[place] [address] MCV (RBC) [Entitic vol] 82.6 fL Normal 81.0-100.0 A [facility] ([place]) Comment on above: Performed By: #### C ELVIN MITCHELL MDW, JUNAID, GFR, ADIFF ####[address] [address] Platelet 234 10 3/mcL Normal 150-450 [facility] ([place]) Comment on above: Performed By: #### C ELVIN MITCHELL MDW, JUNAID, GFR, ADIFF ####[address] [address] Platelet mean volume (Bld) [Entitic vol] 7.9 fL Normal 6.4-10.5 [facility] ([place]) Comment on above: Performed By: #### C ELVIN MITCHELL MDW, JUNAID, GFR, ADIFF ####[place] [id number] [address] [place] [address] RBC 4.74 10 6/mcL Normal 4.50-6.00 [facility] ([place]) Comment on above: Performed By: #### C ELVIN MITCHELL MDW, JUNAID, GFR, ADIFF ####[address] [address] WBC 8.6 10 3/mcL Normal 4.5-10.8 [facility] ([place]) Comment on above: Performed By: #### C ELVIN MITCHELL MDW, BMP, GFR, ADIFF ####[address] [address] LABORATORYOrdered By: SYSTEM SYSTEM on 03-11-2024 Basophils (Bld) [#/Vol] 0.0 103/mcL Normal 0.0 - 0.3 10^3/mcL AH Workflow SS Basophils/100 WBC (Bld) 0.4 % Normal 0.0 - 2.5 % AH Workflow SS Calcium [Mass/Vol] 9.3 mg/dL Normal 8.7 - 10. 4 mg/dL AH ADM SS Chloride [Moles/Vol] 107 mmol/L Normal 98 - 11 0 mEq/L AH ADM SS CO2 [Moles/Vol] 27 mmol/L Normal 22 - 32 mEq/L AH ADM SS Creatinine [Mass/Vol] 0.72 mg/dL Normal 0.60 - 1.40 mg/dL ADM SS Electrolyte Balance 8.0 mEq/L Normal 4.0 - 15 .0 mEq/L ADM SS Eosinophils (Bld) [#/Vol] 0.1 103/mcL Normal 0.0 - 0.7 10^3/mcL Workflow SS Eosinophils/100 WBC (Bld) 1.3 % Normal 0.0 - 6.0 % Workflow SS Erythrocyte distribution width (RBC) [Ratio] 14.8 % Normal 11.5 - 15.5 % Workflow SS GFR/1.73 sq M.predicted among blacks MDRD (S/P/Bld) [Vol rate/Area] ml/min/1.73sqm Invalid Interpretation Code [facility] Comment on above: Interpretive Data: GFR Population mean for , Non- Americans Ages 20-29 = 116 mL/min/1.73 sq.m. Ages 30-39 = 107 mL/min/1.73 sq.m. Ages 40-49 = 99 mL/min/1.73 sq.m. Ages 50-59 = 93 mL/min/1.73 sq.m. Ages 60-69 = 85 mL/min/1.73 sq.m. Ages 70+ = 75 mL/min/1.73 sq.m. Chronic Kidney Disease: Less than 60 mL/min/1.73 square meters End Stage Renal Disease: Less than 15 mL/min/1.73 square meters GFR/1.73 sq M.predicted among non-blacks MDRD (S/P/Bld) [Vol rate/Area] ml/min/1.73sqm Invalid Interpretation Code [facility] Comment on above: Interpretive Data: GFR Population mean for , Non- Americans Ages 20-29 = 116 mL/min/1.73 sq.m. Ages 30-39 = 107 mL/min/1.73 sq.m. Ages 40-49 = 99 mL/min/1.73 sq.m. Ages 50-59 = 93 mL/min/1.73 sq.m. Ages 60-69 = 85 mL/min/1.73 sq.m. Ages 70+ = 75 mL/min/1.73 sq.m. Chronic Kidney Disease: Less than 60 mL/min/1.73 square meters End Stage Renal Disease: Less than 15 mL/min/1.73 square meters Glucose [Mass/Vol] 134 mg/dL High 70 - 110 mg/dL AH ADM SS Hematocrit (Bld) [Volume fraction] 39.2 % Low 40.0 - 52.0 % AH Workflow SS Hemoglobin (Bld) [Mass/Vol] 13.4 G/dL Normal 13.0 - 17.5 G/dL AH Workflow SS Lymphocytes (Bld) [#/Vol] 2.4 103/mcL Normal 0.9 - 4.3 10^3/mcL AH Workflow SS Lymphocytes/100 WBC (Bld) 27.9 % Normal 20.0 - 40.0 % AH Workflow SS MCH (RBC) [Entitic mass] 28.2 pg Normal 27.0 - 33.0 pg AH Workflow SS MCHC 34.2 G/dL Normal 32.0 - 36.0 G/dL AH Workflow SS MCV (RBC) [Entitic vol] 82.6 fL Normal 81.0 - 100.0 fL AH Workflow SS Monocyte distribution width Auto (Bld) [Entitic vol] 18.36 1 Normal 0.00 - 20.00 AH Workflow SS Comment on above: Result Comment: For ED adult patients suspected of sepsis, MDW<=20.0 does not rule out sepsis or risk of sepsis Monocytes (Bld) [#/Vol] 0.7 103/mcL Normal 0.1 - 1.4 10^3/mcL AH Workflow SS Monocytes/100 WBC (Bld) 7.8 % Normal 2.0 - 13.0 % AH Workflow SS Neutrophils (Bld) [#/Vol] 5.4 103/mcL Normal 2.3 - 8.1 10^3/mcL AH Workflow SS Neutrophils/100 WBC (Bld) 62.6 % Normal 50.0 - 75.0 % AH Workflow SS Platelet mean volume (Bld) [Entitic vol] 7.9 fL Normal 6.4 - 10.5 fL AH Workflow SS Platelets (Bld) [#/Vol] 234 103/mcL Normal 150 - 450 10^3/mcL AH Workflow SS Potassium [Moles/Vol] 3.9 mmol/L Normal 3.5 - 5.0 mEq/L ADM SS RBC (Bld) [#/Vol] 4.74 106/mcL Normal 4.50 - 6.00 10^6/mcL AH Workflow SS Sodium [Moles/Vol] 142 mmol/L Normal 136 - 145 mEq/L AH ADM SS Urea nitrogen [Mass/Vol] 18.0 mg/dL Normal 8.0 - 22.0 mg/dL AH ADM SS Urea nitrogen/Creatinine [Mass ratio] 25.0 ratio High 10.0 - 22.0 ratio AH ADM SS WBC (Bld) [#/Vol] 8.6 103/mcL Normal 4.5 - 10.8 10^3/mcL AH Workflow SS No Panel Informationon 03-11 Microscopic examination of blood, culture Blood Culture: No Growth at 5 days. [facility] XR CHEST 1 VIEWon 03-11-2024 XR CHEST 1 VIEW Normal [facility] ([place]) Laboratory - Chemistry and C hemistry - challengeon 03-02-2024 Glucose [Mass/Vol] 155 mg/dL High 70 - 100 mg/dL [facility] No Panel Informationon 03-02 Interpretation and review of laboratory results Abnormal [facility] Performed by: [facility], [address] [place] [address] CLIA ID: [id number] [facility] Radiology Study observation (narrative) [facility] Bacteria identified Anaer cx Nom (Unsp spec)Ordered By: Ileana Cervantes on 03-01-2024 Interpretation and review of laboratory results Normal [facility] Bacteria identified Cx Nom ( Bld)on 03-01-2024 Interpretation and review of laboratory results Normal [facility] Blood Collection Sit e: Left Antecubital [facility] Interpretation and review of laboratory results Normal [facility] Blood Collection Sit e: Right Hand [facility] Laboratory - Chemistry and C hemistry - challengeon 03-01-2024 Glucose [Mass/Vol] 118 mg/dL High 70 - 100 mg/dL [facility] Glucose [Mass/Vol] 148 mg/dL High 70 - 100 mg/dL [facility] Glucose [Mass/Vol] 103 mg/dL High 70 - 100 mg/dL [facility] Glucose [Mass/Vol] 162 mg/dL High 70 - 100 mg/dL [facility] Laboratory - Microbiology an d Antimicrobial susceptibilityon 03-01-2024 Bacteria identified Cx Nom (Bld) No growth at 5 days [facility] Bacteria identified Cx Nom (Bld) No growth at 5 days [facility] Laboratory - Microbiology an d Antimicrobial susceptibilityOrdered By: Ileana Cervantes on 03-01-2024 Bacteria identified Anaer cx Nom (Unsp spec) No growth at 5 days [facility] No Panel Informationon 03-01 Interpretation and review of laboratory results Abnormal [facility] Performed by: [facility], [address] [place] [id number] CLIA ID: [id number] [facility] Interpretation and review of laboratory results Abnormal [facility] Performed by: [facility], [address] [place] [address] CLIA ID: [id number] [facility] Tiffany Aviles MD 03/01/2024 5:48 PM PICC Insertion/Replacement Date/Time: 03/01/2024 1:27 PM Performed by: Tiffany Aviles MD Authorized by: Tiffany Aviles MD Consent: The indications, risks, benefits, alternatives to the procedure were explained to the patient/surrogate decision maker and their questions answered. Consent was obtained to proceed with the procedure. Timeout: Completed immediately prior to the start of the procedure which included verification of the correct patient, correct site and agreement on the procedure to be done. 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 Anesthetic: Local anesthetic used: lidocaine without epinephrine Procedure details: Preparation: Skin prepped with chlorhexidine Skin prep agent dried: Skin prep agent completely dried prior to procedure Sterile barriers: All five maximal sterile barriers used - gloves, gown, cap, mask and large sterile sheet Hand hygiene: Hand hygiene performed prior to central venous catheter insertion Sterile technique: Sterile technique maintained throughout procedure. Site prior to insertion: Ecchymosis and edema Procedure type: Insertion Orientation: right Location: Basilic Catheter type: Double lumen Catheter size: 5 Fr Lot #: [id number] Trimmed at (cm): 44 Inserted at (cm): 44 Ultrasound guidance: Yes Post-procedure: Post-procedure: Antimicrobial dressing applied and securement device Description/Findings: Flushes easily and blood returned Estimated blood loss: < 5 mL Specify complication(s): No apparent complications Follow-up chest x-ray: Ordered General Comments: Re swollen PIV right AC, left hand infection [facility] Interpretation and review of laboratory results Abnormal [facility] Performed by: [facility], [address] [place] [id number] CLIA ID: [id number] [facility] Interpretation and review of laboratory results Abnormal [facility] Performed by: [facility], [address] [facility] [address] CLIA ID: [id number] [facility] Radiology Study observation (narrative) [facility] Rad[facility] Study observation (narrative) [facility] Radiology Study observation (narrative) [facility] XR Chest Single viewon 03-01 Lines, tubes, and devices: Replacement of right PICC with tip in the distal SVC. Lungs and pleura: Minimal streaky left basilar atelectasis. No consolidation. No pleural effusion or pneumothorax. Cardiomediastinal silhouette: Normal cardiomediastinal silhouette. Other: Mild degenerative spurring of the thoracic spine. Report Dictated on Electronically Signed By: Dominik Avendaño MD Electronically Signed Date/Time: 03/01/2024 1:56 PM T [facility] Patient Name: TALIA STAFFORD : 1980 Exam Date/Time: 03/01/2024 13:52 Procedure: XR CHEST 1 VIEW Ordering Provider: MARCOS KYLE Reason For Exam: line placement EXAMINATION: CHEST RADIOGRAPH (SINGLE VIEW AP OR PA) Clinical History: line placement Comparison: Radiograph 02/25/2024 RESULT: See impression [facility] Dominik Avendaño MD - 03/01/2024 Patient Name: TALIA RUBY : 1980 Exam Date/Time: 03/01/2024 13:52 Procedure: XR CHEST 1 VIEW Ordering Provider: MARCOS KYLE Reason For Exam: line placement EXAMINATION: CHEST RADIOGRAPH (SINGLE VIEW AP OR PA) Clinical History: line placement Comparison: Radiograph 02/25/2024 RESULT: See impression IMPRESSION: Lines, tubes, and devices: Replacement of right PICC with tip in the distal SVC. Lungs and pleura: Minimal streaky left basilar atelectasis. No consolidation. No pleural effusion or pneumothorax. Cardiomediastinal silhouette: Normal cardiomediastinal silhouette. Other: Mild degenerative spurring of the thoracic spine. Report Dictated on Electronically Signed By: Dominik Avendaño MD Electronically Signed Date/Time: 03/01/2024 1:56 PM EDT [facility] Radiology Study observation (narrative) [facility] XR Chest Single viewOrdered By: Dominik Avendaño on 03-01-2024 [facility] [employer] Work Phone: Laboratory - Chemistry and C hemistry - challengeon 02-29-2024 Glucose [Mass/Vol] 120 mg/dL High 70 - 100 mg/dL [facility] Glucose [Mass/Vol] 184 mg/dL High 70 - 100 mg/dL [facility] Glucose [Mass/Vol] 153 mg/dL High 70 - 100 mg/dL [facility] Glucose [Mass/Vol] 152 mg/dL High 70 - 100 mg/dL [facility] No Panel Informationon 02-28 Interpretation and review of laboratory results Abnormal [facility] Performed by: [facility], [address] [place] [address] CLIA ID: [id number] [facility] Interpretation and review of laboratory results Abnormal [facility] Performed by: [facility], [address] [place] [address] CLIA ID: [id number] [facility] Interpretation and review of laboratory results Abnormal [facility] Performed by: [facility], [address] [place] [address] CLIA ID: [id number] [facility] Interpretation and review of laboratory results Abnormal [facility] Performed by: [facility], [address] [place] [address] CLIA ID: [id number] [facility] Radiology Study observation (narrative) [facility] Radiology Study observation (narrative) [facility] Radiology Study observation (narrative) [facility] Radiology Study observation (narrative) [facility] Bacteria identified Aer cx N om (Unsp spec)Ordered By: Brennen Franco on 02-28-2024 Gram Stain Result Many Polymorphonucle ar leukocytes per low power field Abnormal [facility] Gram Stain Result Positive Abnormal [facility] Interpretation and review of laboratory results Abnormal [facility] PBP2A Negative [facility] CBC panel Auto (Bld)on 02-27 Erythrocyte distribution width (RBC) [Ratio] 13.7 % 11.5 - 15.0 % [facility] Hematocrit (Bld) [Volume fraction] 41.1 % 40.0 - 52.0 % [facility] Hemoglobin (Bld) [Mass/Vol] 13.6 g/dL 13.0 - 18.0 g/dL [facility] Interpretation and review of laboratory results Normal [facility] MCH (RBC) [Entitic mass] 27.0 pg 26.0 - 34.0 pg [facility] MCHC (RBC) [Mass/Vol] 33.1 % 30.5 - 36.0 % [facility] MCV (RBC) [Entitic vol] 81.7 fL 77.0 - 99.0 fL [facility] Platelet mean volume (Bld) [Entitic vol] 10.7 fL 9.0 - 12.7 fL [facility] Platelets (Bld) [#/Vol] 291 10*3/uL 140 - 440 10*3/uL [facility] RBC (Bld) [#/Vol] 5.03 10*6/uL 4.40 - 5.90 10*6/uL [facility] WBC (Bld) [#/Vol] 9.1 10*3/uL 3.6 - 10.7 10*3/uL [facility] Comprehensive metabolic 1998 panelon 02-28-2024 Albumin [Mass/Vol] 3.5 g/dL 3.5 - 5.0 g/dL [facility] ALP [Catalytic activity/Vol] 100 U/L 38 - 126 U/L [facility] ALT [Catalytic activity/Vol] 15 U/L 0 - 49 U/L [facility] Anion gap [Moles/Vol] 7 mmol/L 3 - 13 mmol/L [facility] AST [Catalytic activity/Vol] 18 U/L 15 - 46 U/L [facility] Bilirubin [Mass/Vol] 0.3 mg/dL 0.2 - 1 .3 mg/dL [facility] Calcium [Mass/Vol] 9.6 mg/dL 8.4 - 10. 4 mg/dL [facility] Chloride [Moles/Vol] 103 mmol/L 98 - 10 7 mmol/L [facility] CO2 [Moles/Vol] 26 mmol/L 22 - 30 mmol/L [facility] Creatinine [Mass/Vol] 0.83 mg/dL 0.66 - 1.25 mg/dL [facility] GFR/1.73 sq M.predicted MDRD (S/P/Bld) [Vol rate/Area] - PINF [facility] Comment on above: Calculation based on the Chronic Kidney Disease Epidemiology Collaboration (CKD-EPI) equation refit without adjustment for race Glucose [Mass/Vol] 149 mg/dL High 70 - 100 mg/dL [facility] Interpretation and review of laboratory results Abnormal [facility] Potassium [Moles/Vol] 3.8 mmol/L 3.5 - 5.1 mmol/L [facility] Protein [Mass/Vol] 6.5 g/dL 6.3 - 8.2 g/dL [facility] Sodium [Moles/Vol] 136 mmol/L 135 - 145 mmol/L [facility] Urea nitrogen [Mass/Vol] 23 mg/dL High 9 - 20 mg/dL [facility] Laboratory - Chemistry and C hemistry - challengeon 02-28-2024 Glucose [Mass/Vol] 228 mg/dL High 70 - 100 mg/dL [facility] Glucose [Mass/Vol] 96 mg/dL 70 - 100 mg/dL [facility] Glucose [Mass/Vol] 131 mg/dL High 70 - 100 mg/dL [facility] Glucose [Mass/Vol] 113 mg/dL High 70 - 100 mg/dL [facility] Laboratory - Microbiology an d Antimicrobial susceptibilityOrdered By: Brennen Franco on 02-28-2024 Bacteria identified Aer cx Nom (Unsp spec) Many Staphylococcus aureus Abnormal [facility] No Panel Informationon 02-27 Interpretation and review of laboratory results Abnormal [facility] Performed by: [facility], [address] [place] [address] CLIA ID: [id number] [facility] Interpretation and review of laboratory results Normal [facility]: [facility], [address] [place] [address] CLIA ID: [id number] [facility] Interpretation and review of laboratory results Abnormal [facility] Performed by: [facility], [address] [place] [address] CLIA ID: [id number] [facility] Interpretation and review of laboratory results Abnormal [facility] Performed by: [facility], [address] [facility] [address] CLIA ID: [id number] [facility] Radiology Study observation (narrative) [facility]narrative[facility]narrative) [facility] Rad[facility] Study observation (narrative) [facility] CBC panel Auto (Bld)on 02-26 Erythrocyte distribution width (RBC) [Ratio] 13.7 % 11.5 - 15.0 % [facility] Hematocrit (Bld) [Volume fraction] 38.2 % Low 40.0 - 52.0 % [facility] Hemoglobin (Bld) [Mass/Vol] 13.0 g/dL 13.0 - 18.0 g/dL [facility] Interpretation and review of laboratory results Abnormal [facility] MCH (RBC) [Entitic mass] 27.6 pg 26.0 - 34.0 pg [facility] MCHC (RBC) [Mass/Vol] 34.0 % 30.5 - 36.0 % [facility] MCV (RBC) [Entitic vol] 81.1 fL 77.0 - 99.0 fL [facility] Platelet mean volume (Bld) [Entitic vol] 10.8 fL 9.0 - 12.7 fL [facility] Platelets (Bld) [#/Vol] 266 10*3/uL 140 - 440 10*3/uL [facility] RBC (Bld) [#/Vol] 4.71 10*6/uL 4.40 - 5.90 10*6/uL [facility] WBC (Bld) [#/Vol] 9.1 10*3/uL 3.6 - 10.7 10*3/uL [facility] Comprehensive metabolic 1998 panelon 02-27-2024 Albumin [Mass/Vol] 3.4 g/dL Low 3.5 - 5.0 g/dL [facility] ALP [Catalytic activity/Vol] 115 U/L 38 - 126 U/L [facility] ALT [Catalytic activity/Vol] 15 U/L 0 - 49 U/L [facility] Anion gap [Moles/Vol] 7 mmol/L 3 - 13 mmol/L [facility] AST [Catalytic activity/Vol] 25 U/L 15 - 46 U/L [facility] Bilirubin [Mass/Vol] 0.5 mg/dL 0.2 - 1 .3 mg/dL [facility] Calcium [Mass/Vol] 9.2 mg/dL 8.4 - 10. 4 mg/dL [facility] Chloride [Moles/Vol] 104 mmol/L 98 - 10 7 mmol/L [facility] CO2 [Moles/Vol] 25 mmol/L 22 - 30 mmol/L [facility] Creatinine [Mass/Vol] 0.94 mg/dL 0.66 - 1.25 mg/dL [facility] GFR/1.73 sq M.predicted MDRD (S/P/Bld) [Vol rate/Area] - PINF [facility] Comment on above: Calculation based on the Chronic Kidney Disease Epidemiology Collaboration (CKD-EPI) equation refit without adjustment for race Glucose [Mass/Vol] 107 mg/dL High 70 - 100 mg/dL [facility] Interpretation and review of laboratory results Abnormal [facility] Potassium [Moles/Vol] 3.5 mmol/L 3.5 - 5.1 mmol/L [facility] Protein [Mass/Vol] 6.5 g/dL 6.3 - 8.2 g/dL [facility] Sodium [Moles/Vol] 136 mmol/L 135 - 145 mmol/L [facility] Urea nitrogen [Mass/Vol] 21 mg/dL High 9 - 20 mg/dL [facility] Laboratory - Chemistry and C hemistry - challengeon 02-27-2024 Glucose [Mass/Vol] 113 mg/dL High 70 - 100 mg/dL [facility] Glucose [Mass/Vol] 126 mg/dL High 70 - 100 mg/dL [facility] Glucose [Mass/Vol] 122 mg/dL High 70 - 100 mg/dL [facility] Glucose [Mass/Vol] 141 mg/dL High 70 - 100 mg/dL [facility] No Panel Informationon 02-26 Interpretation and review of laboratory results Abnormal [facility] Performed by: [facility], [address] [place], [place] [id number] CLIA ID: [id number] [facility] Interpretation and review of laboratory results Abnormal [facility] Performed by: [facility], [address] [place] [address] CLIA ID: [id number] [facility] Interpretation and review of laboratory results Abnormal [facility] Performed by: [facility], [address] [facility] [address] CLIA ID: [id number] [facility] Interpretation and review of laboratory results Abnormal [facility] Performed by: [facility], [address] [place] [address] CLIA ID: [id number] [facility] Radiology Study observation (narrative) [facility] Radiology Study observation (narrative) [facility] Rad[facility] Study observation (narrative) [facility] Radiology Study observation (narrative) [facility] CBC panel Auto (Bld)on 02-25 Erythrocyte distribution width (RBC) [Ratio] 13.5 % 11.5 - 15.0 % [facility] Hematocrit (Bld) [Volume fraction] 40.9 % 40.0 - 52.0 % [facility] Hemoglobin (Bld) [Mass/Vol] 13.5 g/dL 13.0 - 18.0 g/dL [facility] Interpretation and review of laboratory results Normal [facility] MCH (RBC) [Entitic mass] 26.8 pg 26.0 - 34.0 pg [facility] MCHC (RBC) [Mass/Vol] 33.0 % 30.5 - 36.0 % [facility] MCV (RBC) [Entitic vol] 81.3 fL 77.0 - 99.0 fL [facility] Platelet mean volume (Bld) [Entitic vol] 10.5 fL 9.0 - 12.7 fL [facility] Platelets (Bld) [#/Vol] 265 10*3/uL 140 - 440 10*3/uL [facility] RBC (Bld) [#/Vol] 5.03 10*6/uL 4.40 - 5.90 10*6/uL [facility] WBC (Bld) [#/Vol] 10.4 10*3/uL 3.6 - 10.7 10*3/uL [facility] Comprehensive metabolic 1998 panelon 02-26-2024 Albumin [Mass/Vol] 3.5 g/dL 3.5 - 5.0 g/dL [facility] ALP [Catalytic activity/Vol] 93 U/L 38 - 126 U/L [facility] ALT [Catalytic activity/Vol] 19 U/L 0 - 49 U/L [facility] Anion gap [Moles/Vol] 4 mmol/L 3 - 13 mmol/L [facility] AST [Catalytic activity/Vol] 23 U/L 15 - 46 U/L [facility] Bilirubin [Mass/Vol] 0.8 mg/dL 0.2 - 1 .3 mg/dL [facility] Calcium [Mass/Vol] 9.4 mg/dL 8.4 - 10. 4 mg/dL [facility] Chloride [Moles/Vol] 102 mmol/L 98 - 10 7 mmol/L [facility] CO2 [Moles/Vol] 27 mmol/L 22 - 30 mmol/L [facility] Creatinine [Mass/Vol] 0.95 mg/dL 0.66 - 1.25 mg/dL [facility] GFR/1.73 sq M.predicted MDRD (S/P/Bld) [Vol rate/Area] - PINF [facility] Comment on above: Calculation based on the Chronic Kidney Disease Epidemiology Collaboration (CKD-EPI) equation refit without adjustment for race Glucose [Mass/Vol] 155 mg/dL High 70 - 100 mg/dL [facility] Interpretation and review of laboratory results Abnormal [facility] Potassium [Moles/Vol] 4.2 mmol/L 3.5 - 5.1 mmol/L [facility] Protein [Mass/Vol] 6.8 g/dL 6.3 - 8.2 g/dL [facility] Sodium [Moles/Vol] 133 mmol/L Low 135 - 145 mmol/L [facility] Urea nitrogen [Mass/Vol] 21 mg/dL High 9 - 20 mg/dL [facility] Laboratory - Chemistry and C hemistry - challengeon 02-26-2024 Glucose [Mass/Vol] 135 mg/dL High 70 - 100 mg/dL [facility] Glucose [Mass/Vol] 144 mg/dL High 70 - 100 mg/dL [facility] Glucose [Mass/Vol] 125 mg/dL High 70 - 100 mg/dL [facility] Glucose [Mass/Vol] 217 mg/dL High 70 - 100 mg/dL [facility] Glucose [Mass/Vol] 134 mg/dL High 70 - 100 mg/dL [facility] Magnesium [Mass/Vol] 1.6 mg/dL 1.6 - 2 .3 mg/dL [facility] Laboratory - Drug toxicology on 02-26-2024 Vancomycin trough [Mass/Vol] 19.7 ug/mL 15.0 - 20.0 ug/mL [facility] Magnesium [Mass/Vol]on 02-25 Interpretation and review of laboratory results Normal [facility] No Panel Informationon 02-25 Interpretation and review of laboratory results Abnormal [facility] Performed by: [facility], [address] [place] [address] [id number] CLIA ID: [id number] [facility] Interpretation and review of laboratory results Abnormal [facility] Performed by: [facility], [address] [place] [address] [id number] CLIA ID: [id number] [facility] Interpretation and review of laboratory results Abnormal [facility] Performed by: [facility], [address] [place] [address] CLIA ID: [id number] [facility] Interpretation and review of laboratory results Abnormal [facility] Performed by: [facility], [address] [place] [address] 11738 CLIA ID: [id number] [facility] Interpretation and review of laboratory results Abnormal [facility] Performed by: [facility], [address] [place] [address] CLIA ID: [id number] [facility] Radiology Study observation (narrative) Alicia dorantes Radiology Study observation (narrative) Alicia Escudero [facility]th Radiology Study observation (narrative) Summashlee Escudero alth Radiology Study observation (narrative) Summashlee Escudero [facility] Radiology Study observation (narrative) [facility] Vancomycin trough [Mass/Vol] on 02-26-2024 Interpretation and review of laboratory results Normal [facility] Basic metabolic 1998 panelon 02-25-2024 Anion gap [Moles/Vol] 7 mmol/L 3 - 13 mmol/L [facility] Calcium [Mass/Vol] 9.3 mg/dL 8.4 - 10. 4 mg/dL [facility] Chloride [Moles/Vol] 102 mmol/L 98 - 10 7 mmol/L [facility] CO2 [Moles/Vol] 25 mmol/L 22 - 30 mmol/L [facility] Creatinine [Mass/Vol] 0.74 mg/dL 0.66 - 1.25 mg/dL [facility] GFR/1.73 sq M.predicted MDRD (S/P/Bld) [Vol rate/Area] - PINF [facility] Comment on above: Calculation based on the Chronic Kidney Disease Epidemiology Collaboration (CKD-EPI) equation refit without adjustment for race Glucose [Mass/Vol] 110 mg/dL High 70 - 100 mg/dL [facility] Interpretation and review of laboratory results Abnormal [facility] Potassium [Moles/Vol] 3.7 mmol/L 3.5 - 5.1 mmol/L [facility] Sodium [Moles/Vol] 134 mmol/L Low 135 - 145 mmol/L [facility] Urea nitrogen [Mass/Vol] 16 mg/dL 9 - 20 mg/dL [facility] Blood type and Crossmatch pa tomas (Bld)on 02-25-2024 ABO group Nom (Bld) O [facility] Blood group antibody screen GEL Ql Negative [facility] D Ag Ql (RBC) Negative [facility] CBC W Auto Differential pane l (Bld)on 02-25-2024 Basophils (Bld) [#/Vol] 0.0 10*3/uL 0.0 - 0.2 10*3/uL [facility] Basophils/100 WBC (Bld) 0.3 % 0.0 - 2.0 % [facility] Eosinophils (Bld) [#/Vol] 0.2 10*3/uL 0.0 - 0.5 10*3/uL [facility] Eosinophils/100 WBC (Bld) 2.0 % 0.0 - 6.0 % [facility] Erythrocyte distribution width (RBC) [Ratio] 14.0 % 11.5 - 15.0 % [facility] Hematocrit (Bld) [Volume fraction] 41.3 % 40.0 - 52.0 % [facility] Hemoglobin (Bld) [Mass/Vol] 13.7 g/dL 13.0 - 18.0 g/dL [facility] Immature granulocytes (Bld) [#/Vol] 0.0 10*3/uL NINF - 0.1 10*3/uL [facility] Immature granulocytes/100 WBC (Bld) 0.4 % 0.0 - 2.0 % [facility] Interpretation and review of laboratory results Normal [facility] Lymphocytes (Bld) [#/Vol] 2.7 10*3/uL 1.0 - 4.3 10*3/uL [facility] Lymphocytes/100 WBC (Bld) 26.4 % 15.0 - 45.0 % [facility] MCH (RBC) [Entitic mass] 27.1 pg 26.0 - 34.0 pg [facility] MCHC (RBC) [Mass/Vol] 33.2 % 30.5 - 36.0 % [facility] MCV (RBC) [Entitic vol] 81.8 fL 77.0 - 99.0 fL [facility] Monocytes (Bld) [#/Vol] 0.7 10*3/uL 0.0 - 0.9 10*3/uL [facility] Monocytes/100 WBC (Bld) 6.4 % 5.0 - 13.0 % [facility] Neutrophils (Bld) [#/Vol] 6.6 10*3/uL 1.8 - 7.5 10*3/uL [facility] Neutrophils/100 WBC (Bld) 64.5 % 38.0 - 82.0 % [facility] Nucleated RBC/100 WBC (Bld) [Ratio] 0.0 % [facility] Platelet mean volume (Bld) [Entitic vol] 10.5 fL 9.0 - 12.7 fL [facility] Platelets (Bld) [#/Vol] 270 10*3/uL 140 - 440 10*3/uL [facility] RBC (Bld) [#/Vol] 5.05 10*6/uL 4.40 - 5.90 10*6/uL [facility] WBC (Bld) [#/Vol] 10.2 10*3/uL 3.6 - 10.7 10*3/uL [facility] CRP [Mass/Vol]on 02-25-2024 Interpretation and review of laboratory results Abnormal [facility] ESR (Bld) [Velocity]Ordered By: Cody Smallwood on 02-25-2024 Interpretation and review of laboratory results Abnormal [facility] LABORATORYOrdered By: Tita Blank on 02-25-2024 Amphetamines Screen Ql (U) Positive *ABN* (02/25/24 2:18 AM) Invalid Interpretation Code Negative AO ADM SS Appearance (U) Clear (02/25/24 2:18 AM) Normal Clear AO Auto Urine SS Barbiturates Screen Ql (U) Negative *NA* (02/25/24 2:18 AM) Invalid Interpretation Code Negative AO ADM SS Benzodiazepines Ql (U) Negative *NA* (02/25/24 2:18 AM) Invalid Interpretation Code Negative AO ADM SS Benzoylecgonine Screen Ql (U) Negative *NA* (02/25/24 2:18 AM) Invalid Interpretation Code Negative AO ADM SS Bilirubin Ql (U) Negative (02/25/24 2:18 AM) Normal Negative AO Auto Urine SS Cannabinoids Screen Ql (U) Positive *ABN* (02/25/24 2:18 AM) Invalid Interpretation Code Negative AO ADM SS Color (U) Yellow (02/25/24 2:18 AM) Normal AO Auto Urine SS Glucose Test strip (U) [Mass/Vol] Negative Normal Negative AO Auto Urine SS Hemoglobin Auto test strip (U) [Mass/Vol] Negative (02/25/24 2:18 AM) Normal Negative AO Auto Urine SS Ketones Ql (U) Negative Normal Negative AO Auto Ur ine SS Methadone Screen Ql (U) Negative *NA* (02/25/24 2:18 AM) Invalid Interpretation Code Negative AO ADM SS Opiates Screen Ql (U) Negative *NA* (02/25/24 2:18 AM) Invalid Interpretation Code Negative AO ADM SS Phencyclidine Ql (U) Negative *NA* (02/25/24 2:18 AM) Invalid Interpretation Code Negative AO ADM SS UA Leuk Est Negative (02/25/24 2:18 AM) Normal Negative AO Auto Urine SS UA Nitrite Negative (02/25/24 2:18 AM) Normal Negative AO Auto Urine SS UA pH 5.5 (02/25/24 2:18 AM) Normal 5.0 - 8.0 AO Auto Urine SS UA Protein Negative Normal Negative AO Auto Urine SS UA Spec Grav 1.025 (02/25/24 2:18 AM) Normal 1.015-1.02 5 AO Auto Urine SS UA Specimen Type Clean Catch (02/25/24 2:18 AM) Normal AO Auto Urine SS UA Urobilinogen 1.0 E.U./dL Normal 0.2-1.0 AO Auto Urine SS Urine Drugs screened: See Below 6 (02/25/24 2:18 AM) Normal AO Chemistry S Comment on above: Interpretive Data: T his drug screen is a presumptive screening only. No confirmation will be performed unless requested. Drugs screened include: Threshold Amphetamines/Methamphetamines 1,000 ng/mL Barbiturates 200 ng/mL Benzodiazepine metabolites 200 ng/mL Cannabinoids (THC metabolites) 50 ng/mL Cocaine 300 ng/mL Opiates 300 ng/mL Methadone 300 ng/mL Phencyclidine (PCP) 25 ng/mL Testing has been performed FOR MEDICAL PURPOSES ONLY. LABORATORYOrdered By: Gerda Sanchez on 02-25-2024 fentaNYL Screen Ql (U) Negative 2 *NA* (02/25/24 2:18 AM) Invalid Interpretation Code Negative ADM Comment on above: Interpretive Data: T esting has been performed FOR MEDICAL PURPOSES ONLY. oxyCODONE Ql (U) Negative 3 *NA* (02/25/24 2:18 AM) Invalid Interpretation Code Negative ADM SS Comment on above: Interpretive Data: T esting has been performed FOR MEDICAL PURPOSES ONLY. Laboratory - Chemistry and C hemistry - challengeon 02-25-2024 Glucose [Mass/Vol] 176 mg/dL High 70 - 100 mg/dL [facility] Glucose [Mass/Vol] 140 mg/dL High 70 - 100 mg/dL [facility] Glucose [Mass/Vol] 130 mg/dL High 70 - 100 mg/dL [facility] Glucose [Mass/Vol] 116 mg/dL High 70 - 100 mg/dL [facility] Average glucose Estimated from glycated hemoglobin (Bld) [Mass/Vol] 134 mg/dL [facility] CRP [Mass/Vol] 50.7 mg/L [facility] Laboratory - Coagulationon 0 02-25-2024 PT Coag (Bld) [Time] 10.9 s 9.0 - 1 2.0 s [facility] Laboratory - Hematology and Cell countson 02-25-2024 HbA1c (Bld) [Mass fraction] 6.3 % High [facility] 5.7 % [facility] Comment on above: Normal less than 5.7 % Prediabetes 5.7% to 6.4% Diabetes 6.5% or higher --HgbA1C levels may not be accurate in patients who have renal disease, received recent blood transfusions, are anemic, or who have dyshemoglobinemia. Laboratory - Hematology and Cell countsOrdered By: Cody Smallwood on 02-25-2024 ESR (Bld) [Velocity] 33 mm/h High [facility] No Panel Informationon 02-24 Interpretation and review of laboratory results Abnormal [facility] Performed by: [facility], [address] [place] [address]604 CLIA ID: [id number] [facility] Interpretation and review of laboratory results Abnormal [facility] Performed by: [facility], [address] [place] [address] 657[address] CLIA ID: [id number] [facility] Sinus rhythm Anteroseptal infarct, age indeterminate Electronically Signed On 02-25-2024 12:51:02 EDT by Anselmo Wall CV Anselmo Davis MD - 02/25/2024 IMPRESSION: Sinus rhythm Anteroseptal infarct, age indeterminate Electronically Signed On 02-25-2024 12:51:02 EDT by Anselmo Wall [facility] Interpretation and review of laboratory results Abnormal [facility] Performed by: [facility], [address] [place] [address] 88621 CLIA ID: [id number] [facility] Interpretation and review of laboratory results Abnormal [facility] Performed by: [facility], [address] [place] [address] 14640 CLIA ID: [id number] [facility] Interpretation and review of laboratory results Abnormal [facility] Radiology Study observation (narrative) [facility] Radiology Study observation (narrative) [facility] Radiology Study observation (narrative) [facility] Radiology Study observation (narrative) [facility] No Panel InformationOrdered By: Anselmo Wall on 02-25-2024 P [place] 77 degrees [facility] Work Phone: SD Interval 188 ms [facility] Work Phone: QRS [place] 43 degrees [facility] Work Phone: QRSD Interval 78 ms [facility] Work Phone: QT Interval 408 ms [facility] Work Phone: QTC Interval 435 ms [employer] Work Phone: T Wave [place] 41 degrees [employer] Work Phone: [employer] Work Phone: PT Coag (Bld) [Time]on 02-24 INR Coag (PPP) [Relative time] 1.0 {INR} 0.9 - 1.1 [facility] Comment on above: Recommended Anticoag ulant Therapy: SEE BELOW ----- INR of 2.0 - 3.0 : - Prophylaxis of Venous Thrombosis (high-risk surgery) - Treatment of Venous Thrombosis - Treatment of Pulmonary Embolism (Includes tissue heart valves, Acute Myocardial Infarction to prevent systemic embolism, Valvular Heart Disease, and Atrial Fibrillation) ----- INR of 2.5 - 3.5 : - Mechanical Prosthetic Valves (high risk) - If oral anticoagulant therapy is used to prevent Myocardial Infarction Interpretation and review of laboratory results Normal [facility] UDRUGon 02-25-2024 Amphetamine (u) Positive Abnormal Negative [facility] ([place]) Comment on above: Performed By: #### U ADIP, UDRUG ####Stephanie [id number] [place] [address]#### UFENTS, UOXYS ####[place] [address] Barbiturate (u) Negative Normal Negative [facility] ([place]) Comment on above: Performed By: #### U ADIP, UDRUG ####Stephanie [address] [place], [place] [address]#### UFENTS, UOXYS ####[facility] [place] [address] Benzodiazepine (u) Negative Normal Negative [facility] ([place]) Comment on above: Performed By: #### U ADIP, UDRUG ####Stephanie [address] [place], [place] [address]#### UFENTS, UOXYS ####[place] [id number] [place] [address] Cannabinoid (u) Positive Abnormal Negative [facility] ([place]) Comment on above: Performed By: #### U ADIP, UDRUG ####Stephanie [address] [place], [place] [address]#### UFENTS, UOXYS ####[place] [address] Cocaine Ql (U) Negative Normal Negative [facility] ([place]) Comment on above: Performed By: #### U ADIP, UDRUG ####Stephanie [address] [place] [address]#### UFENTS, UOXYS ####[place] [address] Methadone Ql (U) Negative Normal Negative [facility] ([place]) Comment on above: Performed By: #### U ADIP, UDRUG ####Stephanie [address] [place] [address]#### UFENTS, UOXYS ####[place] [address] Opiate (u) Negative Normal Negative [facility] ([place]) Comment on above: Performed By: #### U ADIP, UDRUG ####Stephanie [address] [place] [id number]#### UFENTS, UOXYS ####[place] [address] PCP (u) Negative Normal Negative [facility] ([place]) Comment on above: Performed By: #### U ADIP, UDRUG ####Stephanie [id number] [place] [address]#### UFENTS, UOXYS ####[place] [address] Urine Drugs screened: See Below Normal [facility] ([place]) Comment on above: Result Comment: This drug screen is a presumptive screening only.No confirmation will be performed unless requested.Drugs screened include: ThresholdAmphetamines/Methamphetamines 1,000 ng/mLBarbiturates 200 ng/mLBenzodiazepine metabolites 200 ng/mLCannabinoids (THC metabolites) 50 ng/mLCocaine 300 ng/mLOpiates 300 ng/mLMethadone 300 ng/mLPhencyclidine (PCP) 25 ng/mLTesting has been performed FOR MEDICAL PURPOSES ONLY. Performed By: #### U ADIP, UDRUG ####Stephanie [address] [place] [address]#### UFENTS, UOXYS ####[place] [address] UFENTSon 02-25-2024 Fentanyl (u) Negative Normal Negative [facility] ([place]) Comment on above: Result Comment: Test ing has been performed FOR MEDICAL PURPOSES ONLY. Performed By: #### U ADIP, UDRUG ####Stephanie [address] [place] [address]#### UFENTS, UOXYS ####[place] [address] UOXYSon 02-25-2024 Oxycodone (u) Negative Normal Negative [facility] ([place]) Comment on above: Result Comment: Test ing has been performed FOR MEDICAL PURPOSES ONLY. Performed By: #### U ADIP, UDRUG ####Stephanie [address] [address]#### UFENTS, UOXYS ####[place] [address] URINon 02-25-2024 Color (U) Yellow Normal [facility] ([place]) Comment on above: Performed By: #### U ADIP, UDRUG ####Stephanie [place] [address]#### UFENTS, UOXYS ####[place] [address] Glucose (U) [Mass/Vol] Negative Normal Negative [facility] ([place]) Comment on above: Performed By: #### U ADIP, UDRUG ####Stephanie [address] [place] [address]#### UFENTS, UOXYS ####[place] [address] Ketones Ql (U) Negative Normal Negative [facility] ([place]) Comment on above: Performed By: #### U ADIP, UDRUG ####Stephanie F[address]rogr[address] [address]#### UFENTS, UOXYS ####[facility] [place] [address] UA Appear Clear Normal Clear [facility] ([place]) Comment on above: Performed By: #### U ADIP, UDRUG ####Stephanie [address] [place] [address]#### UFENTS, UOXYS ####[facility] [place] [address] UA Blood Negative Normal Negative [facility] ([place]) Comment on above: Performed By: #### U ADIP, UDRUG ####Stephanie [address] [place] [address]#### UFENTS, UOXYS ####[address] [address] UA Leuk Est Negative Normal Negative [facility] ([place]) Comment on above: Performed By: #### U ADIP, UDRUG ####Stephanie [place] [address]#### UFENTS, UOXYS ####[place] [address] UA Nitrite Negative Normal Negative [facility] ([place]) Comment on above: Performed By: #### U ADIP, UDRUG ####Stephanie [address] [place] [address]#### UFENTS, UOXYS ####[place] [address] UA pH 5.5 Normal 5.0 - 8.0 [facility] ([place]) Comment on above: Performed By: #### U ADIP, UDRUG ####Stephanie [address] [place] [address]#### UFENTS, UOXYS ####[facility] [place] [address] UA Protein Negative Normal Negative [facility] ([place]) Comment on above: Performed By: #### U ADIP, UDRUG ####Stephanie [address] [place] [address]#### UFENTS, UOXYS ####[place] [address] UA Spec Grav 1.025 Normal 1.015-1.02 5 [facility] ([place]) Comment on above: Performed By: #### U ADIP, UDRUG ####[place] [address]#### UFENTS, UOXYS ####[place] [address] UA Specimen Type Clean Catch Normal [facility] ([place]) Comment on above: Performed By: #### U ADIP, UDRUG ####[place] [address]#### UFENTS, UOXYS ####[place] [address] UA Urobilinogen 1.0 E.U./dL Normal 0.2-1.0 [facility] ([place]) Comment on above: Performed By: #### U ADIP, UDRUG ####[place] [address]#### UFENTS, UOXYS ####[place] [address] Urobilinogen (U) [Mass/Vol] Negative Normal Negative [facility] ([place]) Comment on above: Performed By: #### U ADIP, UDRUG ####[place] [address]#### UFENTS, UOXYS ####[place] [address] Vital signsOrdered By: Crow Wall on 02-25-2024 Heart rate 68 /min bpm [employer] Phone: XR Chest Single viewon 02-24 No radiographic acute cardiopulmonary process. Report Dictated on Electronically Signed By: Erinn Gonzalez MD Electronically Signed Date/Time: 02/25/2024 4:53 AM [facility] RADIOLOGY SYSTEM Patient Name: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 #### A DIFF, TROPHS, ANEU, ALC, MDW, CMP, GFR, CBC, ACETA, LUPE ####Stephanie [address] [place], [place] [address] .GFRon 02-14-2024 GFR 114 ml/min/1.73sqm Normal [facility] ([place]) Comment on above: Result Comment: GFR Population mean for , Non- Americans Ages 20-29 = 116 mL/min/1.73 sq.m. Ages 30-39 = 107 mL/min/1.73 sq.m. Ages 40-49 = 99 mL/min/1.73 sq.m. Ages 50-59 = 93 mL/min/1.73 sq.m. Ages 60-69 = 85 mL/min/1.73 sq.m. Ages 70+ = 75 mL/min/1.73 sq.m.Chronic Kidney Disease: Less than 60 mL/min/1.73 square metersEnd Stage Renal Disease: Less than 15 mL/min/1.73 square meters Performed By: #### A DIFF, TROPHS, ANEU, ALC, MDW, CMP, GFR, CBC, ACETA, LUPE ####Stephanie [address] [place], [place] [address] GFR Non- 94 ml/min/1.73sqm Normal [facility] ([place]) Comment on above: Result Comment: GFR Population mean for , Non- Americans Ages 20-29 = 116 mL/min/1.73 sq.m. Ages 30-39 = 107 mL/min/1.73 sq.m. Ages 40-49 = 99 mL/min/1.73 sq.m. Ages 50-59 = 93 mL/min/1.73 sq.m. Ages 60-69 = 85 mL/min/1.73 sq.m. Ages 70+ = 75 mL/min/1.73 sq.m.Chronic Kidney Disease: Less than 60 mL/min/1.73 square metersEnd Stage Renal Disease: Less than 15 mL/min/1.73 square meters Performed By: #### A DIFF, TROPHS, ANEU, ALC, MDW, CMP, GFR, CBC, ACETA, LUPE ####Stephanie [address] [place], [place] [address] .MDWon 02-14-2024 Monocyte Distribution Width 16.37 Normal 0.00-20.00 [facility] ([place]) Comment on above: Result Comment: For ED adult patients suspected of sepsis, MDW<=20.0 does not rule out sepsis or risk of sepsis Performed By: #### A DIFF, TROPHS, ANEU, ALC, MDW, CMP, GFR, CBC, ACETA, LUPE ####Stephanie [address] [place], [place] [address] .NEUABSon 02-14-2024 Neutrophil, Absolute 4.5 10 3/mcL Normal 2.9-6.2 [facility] ([place]) Comment on above: Performed By: #### A DIFF, TROPHS, ANEU, ALC, MDW, CMP, GFR, CBC, ACETA, LUPE ####Stephanie [address] [place], [place] [address] ACETAon 02-14-2024 Acetaminophen [Mass/Vol] 0.0 ug/mL Low 10.0-30.0 [facility] ([place]) Comment on above: Performed By: #### A DIFF, TROPHS, ANEU, ALC, MDW, CMP, GFR, CBC, ACETA, LUPE ####[id number] [place], [place] [address] Reinaldo 02-14-2024 Ethanol Level <3 Normal 0-3 [facility] ([place]) Comment on above: Performed By: #### A DIFF, TROPHS, ANEU, ALC, MDW, CMP, GFR, CBC, ACETA, LUPE ####[id number] [place], [place] [address] CBCon 02-14-2024 Erythrocyte distribution width (RBC) [Ratio] 15.0 % High 11.5-14.5 [facility] ([place]) Comment on above: Performed By: #### A DIFF, TROPHS, ANEU, ALC, MDW, CMP, GFR, CBC, ACETA, LUPE ####[id number] [place], [place] [address] Hematocrit (Bld) [Volume fraction] 41.2 % Low 42.0-52.0 [facility] ([place]) Comment on above: Performed By: #### A DIFF, TROPHS, ANEU, ALC, MDW, CMP, GFR, CBC, ACETA, LUPE ####[address] [place], [place] [address] Hgb 14.5 G/dL Normal 14.0-18.0 [facility] ([place]) Comment on above: Performed By: #### A DIFF, TROPHS, ANEU, ALC, MDW, CMP, GFR, CBC, ACETA, LUPE ####[address] [place], [place] [address] MCH (RBC) [Entitic mass] 28.7 pg Normal 27.0-31.2 [facility] ([place]) Comment on above: Performed By: #### A DIFF, TROPHS, ANEU, ALC, MDW, CMP, GFR, CBC, ACETA, LUPE ####[address] [place], [place] [address] MCHC 35.2 G/dL Normal 31.8-35.4 [facility] ([place]) Comment on above: Performed By: #### A DIFF, TROPHS, ANEU, ALC, MDW, CMP, GFR, CBC, ACETA, LUPE ####[address] [place], [place] [address] MCV (RBC) [Entitic vol] 81.5 fL Normal 80.0-94.0 [facility] ([place]) Comment on above: Performed By: #### A DIFF, TROPHS, ANEU, ALC, MDW, CMP, GFR, CBC, ACETA, LUPE ####[address] [place], [place] [address] Platelet 218 10 3/mcL Normal 130-400 [facility] ([place]) Comment on above: Performed By: #### A DIFF, TROPHS, ANEU, ALC, MDW, CMP, GFR, CBC, ACETA, LUPE ####Ste[address] [place], [place] [address] Platelet mean volume (Bld) [Entitic vol] 7.9 fL Normal 7.4-10.4 [facility] ([place]) Comment on above: Performed By: #### A DIFF, TROPHS, ANEU, ALC, MDW, CMP, GFR, CBC, ACETA, LUPE ####[address] [place], [place] [address] RBC 5.06 10 6/mcL Normal 4.04-6.13 [facility] ([place]) Comment on above: Performed By: #### A DIFF, TROPHS, ANEU, ALC, MDW, CMP, GFR, CBC, ACETA, LUPE ####[address] [place], [place] [address] WBC 8.6 10 3/mcL Normal 4.6-10.8 [facility] ([place]) Comment on above: Performed By: #### A DIFF, TROPHS, ANEU, ALC, MDW, CMP, GFR, CBC, ACETA, LUPE ####[address] [place], [place] [address] CMPon 02-14-2024 Albumin Level 3.5 G/dL Normal 3.5-5.0 [facility] ([place]) Comment on above: Performed By: #### A DIFF, TROPHS, ANEU, ALC, MDW, CMP, GFR, CBC, ACETA, LUPE ####[address] [place], [place] [address] Albumin/Globulin [Mass ratio] 1.0 {ratio} Low 1.1-2.5 [facility] ([place]) Comment on above: Performed By: #### A DIFF, TROPHS, ANEU, ALC, MDW, CMP, GFR, CBC, ACETA, LUPE ####[address] [place], [place] [address] ALP [Catalytic activity/Vol] 143 U/L High 40-135 [facility] ([place]) Comment on above: Performed By: #### A DIFF, TROPHS, ANEU, ALC, MDW, CMP, GFR, CBC, ACETA, LUPE ####[address] [place], [place] [address] ALT [Catalytic activity/Vol] 28 U/L Normal 16-63 [facility] ([place]) Comment on above: Performed By: #### A DIFF, TROPHS, ANEU, ALC, MDW, CMP, GFR, CBC, ACETA, LUPE ####[address] [place], [place] [address] AST [Catalytic activity/Vol] 20 U/L Normal 10-40 [facility] ([place]) Comment on above: Performed By: #### A DIFF, TROPHS, ANEU, ALC, MDW, CMP, GFR, CBC, ACETA, LUPE ####[address] [place], [place] [address] Bili Total 0.6 mg/dL Normal 0.2-1.0 [facility] ([place]) Comment on above: Result Comment: Use of this assay is not recommended for patients undergoing treatment with eltrombopag due to the potential for falsely elevated results. Performed By: #### A DIFF, TROPHS, ANEU, ALC, MDW, CMP, GFR, CBC, ACETA, LUPE ####[address] [place], [place] [address] BUN/Creatinine Ratio 17 ratio Normal 7-27 [facility] ([place]) Comment on above: Performed By: #### A DIFF, TROPHS, ANEU, ALC, MDW, CMP, GFR, CBC, ACETA, LUPE ####[address] [place], [place] [address] Calcium [Mass/Vol] 9.4 mg/dL Normal 8.4-10.2 [facility] ([place]) Comment on above: Performed By: #### A DIFF, TROPHS, ANEU, ALC, MDW, CMP, GFR, CBC, ACETA, LUPE ####[address] [place], [place] [address] Chloride [Moles/Vol] 101 mmol/L Normal 98-107 [facility] ([place]) Comment on above: Performed By: #### A DIFF, TROPHS, ANEU, ALC, MDW, CMP, GFR, CBC, ACETA, LUPE ####[address] [place], [place] [address] CO2 [Moles/Vol] 29 mmol/L Normal 22-29 [facility] ([place]) Comment on above: Performed By: #### A DIFF, TROPHS, ANEU, ALC, MDW, CMP, GFR, CBC, ACETA, LUPE ####[address] [place], [place] [address] Creatinine [Mass/Vol] 0.88 mg/dL Normal 0.70-1.30 [facility] ([place]) Comment on above: Performed By: #### A DIFF, TROPHS, ANEU, ALC, MDW, CMP, GFR, CBC, ACETA, LUPE ####[address] [place], [place] [address] Electrolyte Balance 10.0 mEq/L Normal 4.0-15.0 [facility] ([place]) Comment on above: Performed By: #### A DIFF, TROPHS, ANEU, ALC, MDW, CMP, GFR, CBC, ACETA, LUPE ####[address] [place], [place] [address] Globulin 3.5 G/dL Normal [facility] ([place]) Comment on above: Performed By: #### A DIFF, TROPHS, ANEU, ALC, MDW, CMP, GFR, CBC, ACETA, LUPE ####[address] [place], [place] [address] Glucose [Mass/Vol] 202 mg/dL High 70-105 [facility] ([place]) Comment on above: Performed By: #### A DIFF, TROPHS, ANEU, ALC, MDW, CMP, GFR, CBC, ACETA, LUPE ####[address] [place], [place] [address] Potassium [Moles/Vol] 3.7 mmol/L Normal 3.5-5.1 [facility] ([place]) Comment on above: Performed By: #### A DIFF, TROPHS, ANEU, ALC, MDW, CMP, GFR, CBC, ACETA, LUPE ####[address] [place], [place] [address] Sodium [Moles/Vol] 140 mmol/L Normal 136-145 [facility] ([place]) Comment on above: Performed By: #### A DIFF, TROPHS, ANEU, ALC, MDW, CMP, GFR, CBC, ACETA, LUPE ####[address] [place], [place] [address] Total Protein 7.0 G/dL Normal 6.4-8.2 [facility] ([place]) Comment on above: Performed By: #### A DIFF, TROPHS, ANEU, ALC, MDW, CMP, GFR, CBC, ACETA, LUPE ####[address] [place], [place] [address] Urea nitrogen [Mass/Vol] 15 mg/dL Normal 7-18 [facility] ([place]) Comment on above: Performed By: #### A DIFF, TROPHS, ANEU, ALC, MDW, CMP, GFR, CBC, ACETA, LUPE ####Ste[address] [place], [place] [address] CT HEAD OR BRAIN W/O CONTRAS Ton 02-14-2024 CT HEAD OR BRAIN W/O CONTRAST Normal [facility] ([place]) LABORATORYOrdered By: Amanda Horne on 02-14-2024 Amphetamines Screen Ql (U) Negative *NA* (02/14/24 10:22 AM) Invalid Interpretation Code Negative AO ADM SS Barbiturates Screen Ql (U) Negative *NA* (02/14/24 10:22 AM) Invalid Interpretation Code Negative AO ADM SS Benzodiazepines Ql (U) Negative *NA* (02/14/24 10:22 AM) Invalid Interpretation Code Negative AO ADM SS Benzoylecgonine Screen Ql (U) Negative *NA* (02/14/24 10:22 AM) Invalid Interpretation Code Negative AO ADM SS Cannabinoids Screen Ql (U) Positive *ABN* (02/14/24 10:22 AM) Invalid Interpretation Code Negative AO ADM SS Methadone Screen Ql (U) Negative *NA* (02/14/24 10:22 AM) Invalid Interpretation Code Negative AO ADM SS Opiates Screen Ql (U) Negative *NA* (02/14/24 10:22 AM) Invalid Interpretation Code Negative AO ADM SS Phencyclidine Ql (U) Negative *NA* (02/14/24 10:22 AM) Invalid Interpretation Code Negative AO ADM SS Urine Drugs screened: See Below 6 (02/14/24 10:22 AM) Normal AO Chemistry S Comment on above: Interpretive Data: T his drug screen is a presumptive screening only. No confirmation will be performed unless requested. Drugs screened include: Threshold Amphetamines/Methamphetamines 1,000 ng/mL Barbiturates 200 ng/mL Benzodiazepine metabolites 200 ng/mL Cannabinoids (THC metabolites) 50 ng/mL Cocaine 300 ng/mL Opiates 300 ng/mL Methadone 300 ng/mL Phencyclidine (PCP) 25 ng/mL Testing has been performed FOR MEDICAL PURPOSES ONLY. Acetaminophen [Mass/Vol] 0.0 ug/mL Low 10.0 - 30.0 mcg/mL AO Chemistry S LABORATORYOrdered By: Herminia Posada on 02-14-2024 fentaNYL Screen Ql (U) Negative 2 *NA* (02/14/24 10:22 AM) Invalid Interpretation Code Negative ADM SS Comment on above: Interpretive Data: T esting has been performed FOR MEDICAL PURPOSES ONLY. oxyCODONE Ql (U) Negative 3 *NA* (02/14/24 10:22 AM) Invalid Interpretation Code Negative ADM SS Comment on above: Interpretive Data: T esting has been performed FOR MEDICAL PURPOSES ONLY. LABORATORYOrdered By: SYSTEM SYSTEM on 02-14-2024 Albumin BCP dye [Mass/Vol] 3.5 G/dL Normal 3.5 - 5.0 G/dL AO ADM SS Albumin/Globulin [Mass ratio] 1.0 {ratio} Low 1.1 - 2.5 ratio AO ADM SS ALP [Catalytic activity/Vol] 143 U/L High 40 - 135 U/L AO ADM SS ALT With P-5'-P [Catalytic activity/Vol] 28 U/L Normal 16 - 63 U/L AO ADM SS AST With P-5'-P [Catalytic activity/Vol] 20 U/L Normal 10 - 40 U/L AO ADM SS Basophil, Absolute 0.0 103/mcL Normal 0.0 - 0.2 10^3/mcL AO Workflow SS Basophils/100 WBC (Bld) 0.5 % Normal 0.0 - 2.5 % AO Workflow SS Bilirubin [Mass/Vol] 0.6 mg/dL Normal 0.2 - 1 .0 mg/dL AO ADM SS Comment on above: Interpretive Data: U se of this assay is not recommended for patients undergoing treatment with eltrombopag due to the potential for falsely elevated results. Calcium [Mass/Vol] 9.4 mg/dL Normal 8.4 - 10. 2 mg/dL AO ADM SS Chloride [Moles/Vol] 101 mmol/L Normal 98 - 10 7 mmol/L AO ADM SS CO2 [Moles/Vol] 29 mmol/L Normal 22 - 29 mmol/L AO ADM SS Creatinine [Mass/Vol] 0.88 mg/dL Normal 0.70 - 1.30 mg/dL AO ADM SS Electrolyte Balance 10.0 mEq/L Normal 4.0 - 15 .0 mEq/L AO ADM SS Eosinophil, Absolute 0.2 103/mcL Normal 0.0 - 0 .4 10^3/mcL AO Workflow SS Eosinophils/100 WBC (Bld) 1.8 % Normal 0.0 - 7.0 % AO Workflow SS Erythrocyte distribution width (RBC) [Ratio] 15.0 % High 11.5 - 14.5 % AO Workflow SS Ethanol [Mass/Vol] mg/dL Normal 0 - 3 mg/dL AO ADM SS GFR/1.73 sq M.predicted among blacks MDRD (S/P/Bld) [Vol rate/Area] 114 ml/min/1.73sqm Invalid Interpretation Code AO Chemistry S Comment on above: Interpretive Data: GFR Population mean for , Non- Americans Ages 20-29 = 116 mL/min/1.73 sq.m. Ages 30-39 = 107 mL/min/1.73 sq.m. Ages 40-49 = 99 mL/min/1.73 sq.m. Ages 50-59 = 93 mL/min/1.73 sq.m. Ages 60-69 = 85 mL/min/1.73 sq.m. Ages 70+ = 75 mL/min/1.73 sq.m. Chronic Kidney Disease: Less than 60 mL/min/1.73 square meters End Stage Renal Disease: Less than 15 mL/min/1.73 square meters GFR/1.73 sq M.predicted among non-blacks MDRD (S/P/Bld) [Vol rate/Area] 94 ml/min/1.73sqm Invalid Interpretation Code AO Chemistry S Comment on above: Interpretive Data: GFR Population mean for , Non- Americans Ages 20-29 = 116 mL/min/1.73 sq.m. Ages 30-39 = 107 mL/min/1.73 sq.m. Ages 40-49 = 99 mL/min/1.73 sq.m. Ages 50-59 = 93 mL/min/1.73 sq.m. Ages 60-69 = 85 mL/min/1.73 sq.m. Ages 70+ = 75 mL/min/1.73 sq.m. Chronic Kidney Disease: Less than 60 mL/min/1.73 square meters End Stage Renal Disease: Less than 15 mL/min/1.73 square meters Globulin 3.5 G/dL Invalid Interpretation Code AO ADM SS Glucose [Mass/Vol] 202 mg/dL High 70 - 105 mg/dL AO ADM SS Hematocrit (Bld) [Volume fraction] 41.2 % Low 42.0 - 52.0 % AO Workflow SS Hemoglobin (Bld) [Mass/Vol] 14.5 G/dL Normal 14.0 - 18.0 G/dL AO Workflow SS Lymphocyte, Absolute 3.2 103/mcL Normal 0.8 - 3 .9 10^3/mcL AO Workflow SS Lymphocytes/100 WBC (Bld) 37.0 % Normal 10.0 - 50.0 % AO Workflow SS MCH (RBC) [Entitic mass] 28.7 pg Normal 27.0 - 31.2 pg AO Workflow SS MCHC 35.2 G/dL Normal 31.8 - 35.4 G/dL AO Workflow SS MCV (RBC) [Entitic vol] 81.5 fL Normal 80.0 - 94.0 fL AO Workflow SS Monocyte distribution width Auto (Bld) [Entitic vol] 16.37 1 Normal 0.00 - 20.00 AO Workflow SS Comment on above: Result Comment: For ED adult patients suspected of sepsis, MDW<=20.0 does not rule out sepsis or risk of sepsis Monocyte, Absolute 0.7 103/mcL Normal 0.2 - 1.0 10^3/mcL AO Workflow SS Monocytes/100 WBC (Bld) 8.4 % Normal 1.7 - 13.0 % AO Workflow SS Neutrophil, Absolute 4.5 103/mcL Normal 2.9 - 6 .2 10^3/mcL AO Workflow SS Neutrophils/100 WBC (Bld) 52.3 % Normal 37.0 - 80.0 % AO Workflow SS Platelet mean volume (Bld) [Entitic vol] 7.9 fL Normal 7.4 - 10.4 fL AO Workflow SS Platelets (Bld) [#/Vol] 218 103/mcL Normal 130 - 400 10^3/mcL AO Workflow SS Potassium [Moles/Vol] 3.7 mmol/L Normal 3.5 - 5.1 mmol/L AO ADM SS Protein [Mass/Vol] 7.0 G/dL Normal 6.4 - 8.2 G/dL AO ADM SS RBC (Bld) [#/Vol] 5.06 106/mcL Normal 4.04 - 6.13 10^6/mcL AO Workflow SS Salicylates [Mass/Vol] 2.7 mg/dL Low 2.8 - 20.0 mg/dL AO ADM SS Sodium [Moles/Vol] 140 mmol/L Normal 136 - 145 mmol/L AO ADM SS Troponin I.cardiac DL <= 0.01 ng/mL [Mass/Vol] 16 ng/L Normal 0 - 76 ng/L AO ADM SS Comment on above: Interpretive Data: H igh Sensitive Troponin I Reference Ranges: Female: 0-51 ng/L Male: 0-76 ng/L Testing performed on [employer] using a homogeneous sandwich chemiluminescent immunoassay based on [employer] technology. Urea nitrogen [Mass/Vol] 15 mg/dL Normal 7 - 18 mg/dL AO ADM SS Urea nitrogen/Creatinine [Mass ratio] 17 ratio Normal 7 - 27 ratio AO ADM SS WBC (Bld) [#/Vol] 8.6 103/mcL Normal 4.6 - 10.8 10^3/mcL AO Workflow SS SALon 02-14-2024 Salicylate Level 2.7 mg/dL Low 2.8-20.0 [facility] ([place]) Comment on above: Performed By: #### A DIFF, TROPHS, ANEU, ALC, MDW, CMP, GFR, CBC, ACETA, LUPE ####[address] [place], [place] [address] TROPHSon 02-14-2024 High Sensitivity Troponin I 16 ng/L Normal 0-76 [facility] ([place]) Comment on above: Result Comment: High Sensitive Troponin I Reference Ranges:Female: 0-51 ng/LMale: 0-76 ng/LTesting performed on [employer] using a homogeneous sandwich chemiluminescent immunoassay based on [employer] technology. Performed By: #### A DIFF, TROPHS, ANEU, ALC, MDW, CMP, GFR, CBC, ACETA, LUPE ####Ste[address]ie [id number] [place] [id number] UDRUGon 02-14-2024 Amphetamine (u) Negative Normal Negative [facility] ([place]) Comment on above: Performed By: #### U FENTS UOXYS ####[place] [address]#### UDRUG ####[address] [place] [address] Barbiturate (u) Negative Normal Negative [facility] ([place]) Comment on above: Performed By: #### U FENTS, UOXYS ####[place] [address]#### UDRUG ####Ste[address]ie [address] [place] [address] Benzodiazepine (u) Negative Normal Negative [facility] ([place]) Comment on above: Performed By: #### U FENTS, UOXYS ####[place] [address]#### UDRUG ####Ste[address]ie [address] [place] [address] Cannabinoid (u) Positive Abnormal Negative [facility] ([place]) Comment on above: Performed By: #### U FENTS, UOXYS ####[place] [address]#### UDRUG ####[address] [place] [address] Cocaine Ql (U) Negative Normal Negative [facility] ([place]) Comment on above: Performed By: #### U FENTS, UOXYS ####[address] [address]#### UDRUG ####[address] [place], [place] [address] Methadone Ql (U) Negative Normal Negative [facility] ([place]) Comment on above: Performed By: #### U SUREKHA UOXYS ####[address] [address]#### UDRUG ####[address] [place], [place] [address] Opiate (u) Negative Normal Negative [facility] ([place]) Comment on above: Performed By: #### U SUREKHA UOXYS ####[address] [address]#### UDRUG ####[address] [place], [place] [address] PCP (u) Negative Normal Negative [facility] ([place]) Comment on above: Performed By: #### U SUREKHA UOXYS ####[address] [address]#### UDRUG ####[address] [place], [place] [address] Urine Drugs screened: See Below Normal [facility] ([place]) Comment on above: Result Comment: This drug screen is a presumptive screening only.No confirmation will be performed unless requested.Drugs screened include: ThresholdAmphetamines/Methamphetamines 1,000 ng/mLBarbiturates 200 ng/mLBenzodiazepine metabolites 200 ng/mLCannabinoids (THC metabolites) 50 ng/mLCocaine 300 ng/mLOpiates 300 ng/mLMethadone 300 ng/mLPhencyclidine (PCP) 25 ng/mLTesting has been performed FOR MEDICAL PURPOSES ONLY. Performed By: #### U SUREKHA UOXYS ####[address] [address]#### UDRUG ####[address] [place], [place] [address] UFENTSon 02-14-2024 Fentanyl (u) Negative Normal Negative [facility] ([place]) Comment on above: Result Comment: Test ing has been performed FOR MEDICAL PURPOSES ONLY. Performed By: #### U SUREKHA UOXYS ####[place] [id number] [place] [address]#### UDRUG ####[address] [place], [place] [address] UOXYSon 02-14-2024 Oxycodone (u) Negative Normal Negative [facility] ([place]) Comment on above: Result Comment: Test ing has been performed FOR MEDICAL PURPOSES ONLY. Performed By: #### U SUREKHA, UOXYS ####[place] [id number] [place] [address]#### UDRUG ####[address] [place], [place] [address] XR CHEST 1 VIEWon 02-14-2024 XR CHEST 1 VIEW Normal [facility] ([place]) [facility]2024 [facility] Telephone (RADHA) TALIA RUBY ([id number]) 1980 M T Date Time Provider Department 01/26/24 KING MATUTE During your visit today, we recorded the following information about you: Jeremy Barber LPN 01/26/2024 10:40 AM Signed Received 01/26/2024 from [facility]. Placed in provider's inbox for review. Route to ND for scanning. Allergies As of Date: 01/26/2024 Noted Allergy Reaction ACETAMINOPHEN 04/14/2017 6 - Diarrhea ARIPIPRAZOLE 04/14/2017 14 - Other: See Comments CHLORPHENIRAMINE 04/14/2017 6 - Diarrhea DEXTROMETHORPHAN 04/14/2017 6 - Diarrhea GUAIFENESIN 04/14/2017 6 - Diarrhea HALDOL (HALOPERIDOL) 10/16/2010 1 - Mental Status Change Comments: Mind goes blank METFORMIN 09/13/2016 5 - Intolerance Comments: GI upset and abdominal pain with XR formulation, metallic taste RISPERDAL (RISPERIDONE) 10/16/2010 13 - Dystonia Date Reviewed: 12/28/2023 Reviewed by: Yulia Cottrell RN - Fully Assessed Reason for Visit: Received Outside Medical Records [[id number]] Cmt: [facility] ED summary mental health 01/23/2024 Prescriptions as of 01/26/2024 - divalproex DR (DEPAKOTE) 500 mg EC tablet Take 1 tablet by mouth once daily AND 2 tablets daily at bedtime. - FOLDING WALKER WITH 5" WHEELS 2 wheeled walker - SITagliptin phosphate (JANUVIA) 100 mg tablet Take 1 tablet by mouth once daily. - cholecalciferol, Vitamin D3, (VITAMIN D3) 1,250 mcg (50,000 unit) cap capsule Take 1 capsule by mouth one time a week. - simvastatin (ZOCOR) 40 mg tablet Take 1 tablet by mouth daily at bedtime. for cholesterol - levothyroxine (SYNTHROID) 50 mcg tablet take 1 tablet by mouth once daily on an empty stomach - gabapentin (NEURONTIN) 300 mg capsule Take 300 mg by mouth three times a day. - hydrOXYzine pamoate (VISTARIL) 50 mg capsule take 1 capsule by mouth every 6 hours if needed for anxiety - QUEtiapine (SEROQUEL) 300 mg tablet - traZODone (DESYREL) 50 mg tablet - blood sugar diagnostic (BLOOD GLUCOSE TEST) test strip Test blood sugar(s) two (2) times daily. Dx: Other DM Code E11.9. Insulin: No - Lancets lancets Test blood sugar(s) two (2) times daily. Dx: Other DM Code E11.9. Insulin: No. - alcohol swabs (ALCOHOL PADS) Use as needed two (2) times daily to test blood glucose. - blood sugar diagnostic (ONETOUCH VERIO TEST STRIPS) test strip Test blood sugar(s) 2 times daily. Dx: Type 2 DM - Controlled E11.9 Insulin: No - Blood-Glucose Sensor (FREESTYLE LAYA 3 SENSOR) fernando Apply new sensor every fourteen (14) days to upper arm. - CPAP/BIPAP/OTHER Type .CPAPSettings into a note to see current settings/supplies/DME information. - glimepiride (AMARYL) 4 mg tablet take 1 tablet by mouth once daily with breakfast - prazosin (MINIPRESS) 1 mg cap - Blood Pressure Kit-Extra Large kit Check blood pressure weekly and as needed, - multivitamin tablet Take 1 tablet by mouth once daily. - lancets (ONE TOUCH DELICA) 33 gauge misc Test blood sugar(s) 2 daily. Dx: Type 2 DM - Controlled E11.9 Insulin: No - TRUE METRIX GLUCOSE METER misc as directed. - acetaminophen (TYLENOL) 325 mg tablet Take 2 tablets by mouth every 6 hours as needed. 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] 11/27/2017 Osteomyelitis (HCC) [M86.9] 11/27/2017 2017 Osteomyelitis of right tibia (HCC) [M86.9] 11/26/2017 02/10/2018 Vitamin D insufficiency [E55.9] 12/01/2017 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*12/30/2017 Tobacco use [Z72.0] 12/30/2017 Vitamin D deficiency [E55.9] 12/30/2017 08/07/2020 Osteomyelitis of right tibia (HCC) [M86.9] 02/10/2018 11/13/2018 Rosacea [L71.9] 04/27/2018 Schizophrenia (HCC) [F20.9] MAXIMO treated with BiPAP [G47.33] 12/18/2016 Osteomyelitis of right tibia, unspecified type *12/27/2023 Nicotine use disorder, F17.2 [F17.200] 01/07/2024 Encounter Status:Closed by JEREMY BARBER on 01/26/24 Normal [facility] Absolute lymphocyte countOrd ered By: Ajith Mendez on 01-23-2024 Lymphocytes Auto (Unsp spec) [#/Vol] 3.91 10*3/uL 0.83-4.51 [facility] Automated lymphocyte count a s percentage of total leukocytesOrdered By: Ajith Mendez on 01-23-2024 Lymphocytes/100 WBC Auto (Unsp spec) 32.9 % 19-41 [facility] Basophil percentageOrdered B y: Ajith Mendez on 01-23-2024 Basophils/100 WBC (Bld) 0.4 % 0-[address] [facility] Chloride [Moles/Vol] 104 mmol/L 98-107 [facility] Eosinophils/100 WBC (Bld) 2.5 % 0-5 [facility] Glucose [Mass/Vol] 138 mg/dL 74-106 [facility] Comment on above: Fasting Glucose resu lt greater than or equal to 126 mg/dL suggests DIABETES MELLITUS per A.D.A. criteria. Hemoglobin (Bld) [Mass/Vol] 14.9 g/dL 13.0-16.5 [facility] Monocytes/100 WBC (Bld) 5.9 % 0-[address] [facility] Neutrophils (Bld) [#/Vol] 6.9 10*3/uL 2.0-7.7 [facility] Neutrophils/100 WBC (Bld) 57.9 % 47-70 [facility] Potassium [Moles/Vol] 4.2 mmol/L 3.5-5.1 [facility] Sodium [Moles/Vol] 138 mmol/L 136-145 [facility] WBC (Bld) [#/Vol] 11.9 10*3/uL 4.4-11.0 [facility] Determination of erythrocyte mean corpuscular volume (MCV)Ordered By: Ajith Mendez on 01-23-2024 MCV (RBC) [Entitic vol] 83.5 fL 80-[address] [facility] Erythrocyte distribution wid th ratioOrdered By: Ajith Mendez on 01-23-2024 Erythrocyte distribution width (RBC) [Ratio] 13.7 % 11.6-14.6 [facility] Erythrocyte distribution wid th standard deviationOrdered By: Ajith Mendez on 01-23-2024 Erythrocyte distribution width (RBC) [Entitic vol] 42.1 fL 35.1-43.9 [facility] Hematocrit Auto (Bld) [Volum e fraction]Ordered By: Ajith Mendez on 01-23-2024 Hematocrit (Bld) [Volume fraction] 44.0 % 40-54 [facility] Immature granulocytes/100 WB C Auto (Bld)Ordered By: Ajith Mendez on 01-23-2024 Immature granulocytes/100 WBC (Bld) 0.400 % 0.0-0.9 [facility] Comment on above: IG% - Immature Granu locytes (promyelocytes, myelocytes and metamyelocytes) > 1% indicates that a LEFT SHIFT is Present. Laboratory - Chemistry and C hemistry - challengeOrdered By: Ajith Mendez on 01-23-2024 CO2 [Moles/Vol] 30.0 mmol/L 21.0-32.0 [facility] Urea nitrogen/Creatinine [Mass ratio] 20.2 mg/mg 10-20 [facility] Laboratory - Drug toxicology Ordered By: Ajith Mendez on 01-23-2024 Amphetamines Ql (U) Negative <1000 ng/mL [facility] Benzodiazepines Ql (U) Negative < 200 ng/mL [facility] Cannabinoids Screen Ql (U) Positive < 50 ng/mL [facility] Cocaine Ql (U) Negative < 300 ng/mL [facility] Opiates Ql (U) Negative < 300 ng/mL [facility] Laboratory - Hematology and Cell countsOrdered By: Ajith Mendez on 01-23-2024 MCH (RBC) [Entitic mass] 28.3 pg 27.0-32.0 [facility] MCHC (RBC) [Mass/Vol] 33.9 g/dL 32-36 [facility] Nucleated RBC/100 WBC (Bld) [Ratio] 0 % 0-5 [facility] Platelet mean volume (Bld) [Entitic vol] 9.9 fL 6.2-12.0 [facility] Platelets (Bld) [#/Vol] 272 10*3/uL 150-450 [facility] No Panel InformationOrdered By: Ajith Mendez on 01-23-2024 Estimated Creatinine Clearance Calc 128.30 ml/min [facility] [place] Estimated GFR (MDRD) Amer 119 mL/min >60 [facility] [place] Comment on above: GFR Calc Estimated GFR (MDRD) Non-Af Amer 98 mL/min >60 [facility] Comment on above: Non- GFR Calc Ethyl Alcohol Level < 3.0 mg/dL [facility] Comment on above: The serum:whole bloo d ethanol ratio is approximately 1.14and varies slightly with hematocrit. Medical Alcohol reference interval and critical value innon-tolerant individuals; 50 - 100 Impairment 100 Intoxication 100 - 250 Severe Poisoning 250 - 400 Deep/possible fatal coma MDMA (Ecstasy) Screen Negative < 500 ng/mL [facility] Urine Barbiturates Screen Negative < 200 ng/mL [facility] Urine Drug Screen Comment [facility] Comment on above: CONFIRMATORY TESTING FOR ALL POSITIVE URINE DRUG SCREENRESULTS WILL ONLY BE SENT OUT UPON PHYSICIAN ORDER. VISTA Urine Drug Screen methods provide only preliminaryanalytical test results. A more specific alternate chemicalmethod must be used in order to obtain a confirmedanalytical result. Gas chromatography/mass spectrometery(GC/MS) is the preferred confirmatory method. Clinicalconsideration and professional judgement should be appliedto any drug of abuse test result, particularly whenpreliminary positive results are used. URINE TCA TESTING MUST BE ORDERED SEPARATELY. USE TESTMNEMONIC: [facility] Urine Methadone Screen Negative < 300 ng/mL [facility] RBC Auto (Bld) [#/Vol]Ordere d By: Ajith Mendez on 01-23-2024 RBC (Bld) [#/Vol] 5.27 10*6/uL 4.6-6.2 [facility] Serum or plasma calcium diane urement (mass/volume)Ordered By: Ajith Mendez on 01-23-2024 Calcium [Mass/Vol] 10.0 mg/dL 8.5-10.1 [facility] Serum or plasma creatinine m easurement (mass/volume)Ordered By: Ajith Mendez on 01-23-2024 Creatinine [Mass/Vol] 0.89 mg/dL 0.70-1.30 [facility] Comment on above: The validity of the calculated GFR & GFRAA in patients over 70 years has not been determined. Clinical correlation is essential. Serum or plasma urea nitroge n measurement (mass/volume)Ordered By: Ajith Mendez on 01-23-2024 Urea nitrogen [Mass/Vol] 18 mg/dL 7-18 [facility] Thin prep Papanicolaou smear with manual screeningOrdered By: Ajith Mendez on 01-23-2024 Thin prep Papanicolaou smear with manual screening 4 5-15 [facility] Urine phencyclidine (PCP) de tectionOrdered By: Ajith Mendez on 01-23-2024 Phencyclidine Ql (U) Negative < 25 ng/mL [facility] .Auto Diffon 01-15-2024 Basophil, Absolute 0.0 10 3/mcL Normal 0.0-0.3 [facility] ([place]) Comment on above: Performed By: #### C MP, TROPHS, CK, ADIFF, CBC, DRUGS, GFR, MDW, ANEU ####[address] [address] Basophils/100 WBC (Bld) 0.3 % Normal 0.0-2.5 A [facility] ([place]) Comment on above: Performed By: #### C MP, TROPHS, CK, ADIFF, CBC, DRUGS, GFR, MDW, ANEU ####[address] [address] Eosinophil, Absolute 0.2 10 3/mcL Normal 0.0-0.7 [facility] ([place]) Comment on above: Performed By: #### C MP, TROPHS, CK, ADIFF, CBC, DRUGS, GFR, MDW, ANEU ####[address] [address] Eosinophils/100 WBC (Bld) 2.3 % Normal 0.0-6.0 [facility] ([place]) Comment on above: Performed By: #### C MP, TROPHS, CK, ADIFF, CBC, DRUGS, GFR, MDW, ANEU ####[address] [address] Lymphocyte, Absolute 3.9 10 3/mcL Normal 0.9-4.3 [facility] ([place]) Comment on above: Performed By: #### C MP, TROPHS, CK, ADIFF, CBC, DRUGS, GFR, MDW, ANEU ####[id number] [place] [address] Lymphocytes/100 WBC (Bld) 39.0 % Normal 20.0-40.0 [facility] ([place]) Comment on above: Performed By: #### C MP, TROPHS, CK, ADIFF, CBC, DRUGS, GFR, ZULMA, ANEU ####[address] [address] Monocyte, Absolute 0.7 10 3/mcL Normal 0.1-1.4 [facility] ([place]) Comment on above: Performed By: #### C MP, TROPHS, CK, ADIFF, CBC, DRUGS, GFR, W, ANEU ####[address] [address] Monocytes/100 WBC (Bld) 7.0 % Normal 2.0-13.0 A [facility] ([place] Comment on above: Performed By: #### C MP, TROPHS, CK, ADIFF, CBC, DRUGS, GFR, ZULMA, ANEU ####[address] [address] Neutrophils/100 WBC (Bld) 51.4 % Normal 50.0-75.0 [facility] ([place] Comment on above: Performed By: #### C MP, TROPHS, CK, ADIFF, CBC, DRUGS, GFR, ZULMA, ANEU ####[address] [address] .GFRon 01-15-2024 GFR >60 Normal [facility] ([place]) Comment on above: Result Comment: GFR Population mean for , Non- Americans Ages 20-29 = 116 mL/min/1.73 sq.m. Ages 30-39 = 107 mL/min/1.73 sq.m. Ages 40-49 = 99 mL/min/1.73 sq.m. Ages 50-59 = 93 mL/min/1.73 sq.m. Ages 60-69 = 85 mL/min/1.73 sq.m. Ages 70+ = 75 mL/min/1.73 sq.m.Chronic Kidney Disease: Less than 60 mL/min/1.73 square metersEnd Stage Renal Disease: Less than 15 mL/min/1.73 square meters Performed By: #### C MP, TROPHS, CK, ADIFF, CBC, DRUGS, GFR, MDW, ANEU ####[address] [address] GFR Non- >60 Normal [facility] ([place]) Comment on above: Result Comment: GFR Population mean for , Non- Americans Ages 20-29 = 116 mL/min/1.73 sq.m. Ages 30-39 = 107 mL/min/1.73 sq.m. Ages 40-49 = 99 mL/min/1.73 sq.m. Ages 50-59 = 93 mL/min/1.73 sq.m. Ages 60-69 = 85 mL/min/1.73 sq.m. Ages 70+ = 75 mL/min/1.73 sq.m.Chronic Kidney Disease: Less than 60 mL/min/1.73 square metersEnd Stage Renal Disease: Less than 15 mL/min/1.73 square meters Performed By: #### C MP, TROPHS, CK, ADIFF, CBC, DRUGS, GFR, MDW, ANEU ####[place] [address] .MDWon 01-15-2024 Monocyte Distribution Width 15.13 Normal 0.00-20.00 [facility] ([place]) Comment on above: Result Comment: For ED adult patients suspected of sepsis, MDW<=20.0 does not rule out sepsis or risk of sepsis Performed By: #### C MP, TROPHS, CK, ADIFF, CBC, DRUGS, GFR, MDW, ANEU ####[place] [address] .NEUABSon 01-15-2024 Neutrophil, Absolute 5.1 10 3/mcL Normal 2.3-8.1 [facility] ([place]) Comment on above: Performed By: #### C MP, TROPHS, CK, ADIFF, CBC, DRUGS, GFR, MDW, ANEU ####[place] [address] CBCon 01-15-2024 Erythrocyte distribution width (RBC) [Ratio] 15.1 % Normal 11.5-15.5 [facility] ([place]) Comment on above: Performed By: #### C MP, TROPHS, CK, ADIFF, CBC, DRUGS, GFR, MDW, ANEU ####[place] [address] Hematocrit (Bld) [Volume fraction] 41.4 % Normal 40.0-52.0 [facility] ([place]) Comment on above: Performed By: #### C MP, TROPHS, CK, ADIFF, CBC, DRUGS, GFR, MDW, ANEU ####[place] [address] Hgb 13.7 G/dL Normal 13.0-17.5 [facility] ([place]) Comment on above: Performed By: #### C MP, TROPHS, CK, ADIFF, CBC, DRUGS, GFR, MDW, ANEU ####[place] [address] MCH (RBC) [Entitic mass] 28.3 pg Normal 27.0-33.0 [facility] ([place] Comment on above: Performed By: #### C MP, TROPHS, CK, ADIFF, CBC, DRUGS, GFR, MDW, ANEU ####[place] [address] MCHC 33.1 G/dL Normal 32.0-36.0 [facility] ([place]) Comment on above: Performed By: #### C MP, TROPHS, CK, ADIFF, CBC, DRUGS, GFR, MDW, ANEU ####[place] [address] MCV (RBC) [Entitic vol] 85.5 fL Normal 81.0-100.0 A [facility] ([place] Comment on above: Performed By: #### C MP, TROPHS, CK, ADIFF, CBC, DRUGS, GFR, MDW, ANEU ####[place] [address] Platelet 248 10 3/mcL Normal 150-450 [facility] ([place]) Comment on above: Performed By: #### C MP, TROPHS, CK, ADIFF, CBC, DRUGS, GFR, MDW, ANEU ####[place] [address] Platelet mean volume (Bld) [Entitic vol] 8.3 fL Normal 6.4-10.5 [facility] ([place] Comment on above: Performed By: #### C MP, TROPHS, CK, ADIFF, CBC, DRUGS, GFR, MDW, ANEU ####[place] [address] RBC 4.84 10 6/mcL Normal 4.50-6.00 [facility] ([place] Comment on above: Performed By: #### C MP, TROPHS, CK, ADIFF, CBC, DRUGS, GFR, MDW, ANEU ####[place] [address] WBC 9.9 10 3/mcL Normal 4.5-10.8 [facility] ([place] Comment on above: Performed By: #### C MP, TROPHS, CK, ADIFF, CBC, DRUGS, GFR, MDW, ANEU ####[place] [address] CKon 01-15-2024 CK [Catalytic activity/Vol] 54 U/L Normal 7-185 [facility] ([place]) Comment on above: Performed By: #### C MP, TROPHS, CK, ADIFF, CBC, DRUGS, GFR, MDW, ANEU ####[place] [address] CMPon 01-15-2024 Albumin Level 3.5 G/dL Normal 3.2-4.8 [facility] ([place]) Comment on above: Performed By: #### C MP, TROPHS, CK, ADIFF, CBC, DRUGS, GFR, MDW, ANEU ####[place] [address] Albumin/Globulin [Mass ratio] 1.1 {ratio} Normal 0.9-1.6 [facility] ([place]) Comment on above: Performed By: #### C MP, TROPHS, CK, ADIFF, CBC, DRUGS, GFR, MDW, ANEU ####[place] [address] ALP [Catalytic activity/Vol] 123 U/L Normal 38-126 [facility] ([place]) Comment on above: Performed By: #### C MP, TROPHS, CK, ADIFF, CBC, DRUGS, GFR, MDW, ANEU ####[address] [address] ALT [Catalytic activity/Vol] 12 U/L Normal 12-55 [facility] ([place]) Comment on above: Performed By: #### C MP, TROPHS, CK, ADIFF, CBC, DRUGS, GFR, MDW, ANEU ####[address] [address] AST [Catalytic activity/Vol] 15 U/L Normal 8-34 [facility] ([place]) Comment on above: Performed By: #### C MP, TROPHS, CK, ADIFF, CBC, DRUGS, GFR, MDW, ANEU ####[place] [address] Bili Total 0.20 mg/dL Normal 0.20-1.20 [facility] ([place]) Comment on above: Result Comment: Use of this assay is not recommended for patients undergoing treatment with eltrombopag due to the potential for falsely elevated results. Performed By: #### C MP, TROPHS, CK, ADIFF, CBC, DRUGS, GFR, MDW, ANEU ####[place] [address] BUN/Creatinine Ratio 17.1 ratio Normal 10.0-22.0 [facility] ([place]) Comment on above: Performed By: #### C MP, TROPHS, CK, ADIFF, CBC, DRUGS, GFR, MDW, ANEU ####[place] [address] Calcium [Mass/Vol] 9.6 mg/dL Normal 8.7-10.4 [facility] ([place]) Comment on above: Performed By: #### C MP, TROPHS, CK, ADIFF, CBC, DRUGS, GFR, MDW, ANEU ####[place] [address] Chloride [Moles/Vol] 106 mmol/L Normal 98-110 [facility] ([place]) Comment on above: Performed By: #### C MP, TROPHS, CK, ADIFF, CBC, DRUGS, GFR, MDW, ANEU ####[place] [address] CO2 [Moles/Vol] 27 mmol/L Normal 22-32 [facility] ([place] Comment on above: Performed By: #### C MP, TROPHS, CK, ADIFF, CBC, DRUGS, GFR, MDW, ANEU ####[place] [address] Creatinine [Mass/Vol] 0.76 mg/dL Normal 0.60-1.40 [facility] ([place]) Comment on above: Performed By: #### C MP, TROPHS, CK, ADIFF, CBC, DRUGS, GFR, MDW, ANEU ####[place] [address] Electrolyte Balance 6.0 mEq/L Normal 4.0-15.0 [facility] ([place]) Comment on above: Performed By: #### C MP, TROPHS, CK, ADIFF, CBC, DRUGS, GFR, MDW, ANEU ####[place] [address] Globulin 3.2 G/dL Normal 1.5-3.8 [facility] ([place] Comment on above: Performed By: #### C MP, TROPHS, CK, ADIFF, CBC, DRUGS, GFR, MDW, ANEU ####[place] [address] Glucose [Mass/Vol] 188 mg/dL High 70-110 [facility] ([place]) Comment on above: Performed By: #### C MP, TROPHS, CK, ADIFF, CBC, DRUGS, GFR, MDW, ANEU ####[place] [address] Potassium [Moles/Vol] 3.9 mmol/L Normal 3.5-5.0 [facility] ([place] Comment on above: Performed By: #### C MP, TROPHS, CK, ADIFF, CBC, DRUGS, GFR, MDW, ANEU ####[place] [address] Sodium [Moles/Vol] 139 mmol/L Normal 136-145 [facility] ([place]) Comment on above: Performed By: #### C MP, TROPHS, CK, ADIFF, CBC, DRUGS, GFR, MDW, ANEU ####[place] [address] Total Protein 6.7 G/dL Normal 5.7-8.2 [facility] ([place]) Comment on above: Result Comment: No te - New Reference Range in effect 20 Performed By: #### C MP, TROPHS, CK, ADIFF, CBC, DRUGS, GFR, MDW, ANEU ####[place] [address] Urea nitrogen [Mass/Vol] 13.0 mg/dL Normal 8.0-22.0 [facility] ([place] Comment on above: Performed By: #### C MP, TROPHS, CK, ADIFF, CBC, DRUGS, GFR, MDW, ANEU ####[place] [address] CRPon 01-15-2024 CRP [Mass/Vol] mg/L Normal 0.0-1.0 [facility] ([place]) Comment on above: Result Comment: No te - New Reference Range in effect 20 Performed By: #### C RP, LAC, ESR ####[place] [address] CVFLURVon 01-15-2024 FLU A PCR Negative Normal Negative [facility] ([place]) Comment on above: Result Comment: Note s [id number] Performed By: #### C VFLURV ####[place] [address] FLU B PCR Negative Normal Negative [facility] ([place]) Comment on above: Result Comment: Note s [id number] Performed By: #### C VFLURV ####[place] [address] RSV PCR Negative Normal Negative [facility] ([place]) Comment on above: Result Comment: Note s [id number] Performed By: #### C VFLURV ####[place] [address] SARS-CoV-2 (COVID-19) RNA HIRAM+probe Ql (Unsp spec) Negative Normal Negative [facility] ([place]) Comment on above: Result Comment: Note s [id number] test has been authorized by FDA under an EUA for use by authorized laboratories and has not been FDA cleared or approved.Results from the Xpert Xpress SARS-CoV-2/Flu/RSV or Xpert Xpress SARS-CoV-2 only test should be correlated with the clinical history, epidemiological data, and other data available to the clinician evaluating the patient. Performance of the Xpert Xpress SARS-CoV-2/Flu/RSV or Xpert Xpress SARS-CoV-2 only test has only been established in nasopharyngeal swab specimens.Erroneous test results might occur from improper specimen collection; failure to follow the recommended sample collection, handling, and storage procedures; technical error; or sample mix-up.False negative results may occur if virus is present at levels below the analytical limit of detection.Viral nucleic acid may persist in vivo, independent of virus viability. Detection of analyte target(s) does not imply that the corresponding virus(es) are infectious or are the causative agents for clinical symptoms.Recent patient exposure to FluMist or other live attenuated influenza vaccines may cause inaccurate positive results. Performed By: #### C VFLURV ####[place] [address] DRUGSon 01-15-2024 Acetaminophen [Mass/Vol] ug/mL Low 10.0-20.0 [facility] ([place]) Comment on above: Performed By: #### C MP, TROPHS, CK, ADIFF, CBC, DRUGS, GFR, MDW, ANEU ####[place] [address] Ethanol Level <10.0 Normal [facility] ([place]) Comment on above: Performed By: #### C MP, TROPHS, CK, ADIFF, CBC, DRUGS, GFR, MDW, ANEU ####[place] [id number] Salicylate Lvl (ds) <3.0 Low 10.0-25.0 [facility] ([place]) Comment on above: Performed By: #### C MP, TROPHS, CK, ADIFF, CBC, DRUGS, GFR, MDW, ANEU ####[place] [address] Serum Drugs screened: See Below Normal [facility] ([place]) Comment on above: Result Comment: This drug screen is a presumptive screening only. No confirmation will be performed unless requested.Drugs included in the ER serum drug screen are: ThresholdEthanol 10.0 mg/dLSalicylate 2.0 mg/dlAcetaminophen 2.0 mcg/mLTesting has been performed FOR MEDICAL PURPOSES ONLY. Performed By: #### C MP, TROPHS, CK, ADIFF, CBC, DRUGS, GFR, MDW, ANEU ####[place] [address] DRUGUon 01-15-2024 Cannabinoid (u) Positive Abnormal Negative [facility] ([place]) Comment on above: Performed By: #### Bhavesh RUGU ####[place] [address] Amphetamine (u) Negative Normal Negative [facility] ([place]) Comment on above: Performed By: #### Bhavesh RUGU ####[place] [address] Barbiturate (u) Negative Normal Negative [facility] ([place]) Comment on above: Performed By: #### Bhavesh RUGU ####[place] [address] Benzodiazepine (u) Negative Normal Negative [facility] ([place]) Comment on above: Performed By: #### Bhavesh RUGU ####[place] [address] Cocaine Ql (U) Negative Normal Negative [facility] ([place]) Comment on above: Performed By: #### D RUGU ####[place] [address] Fentanyl (u) Negative Normal Negative [facility] ([place]) Comment on above: Result Comment: Test ing has been performed FOR MEDICAL PURPOSES ONLY. Performed By: #### D RUGU ####[place] [address] Methadone Ql (U) Negative Normal Negative [facility] ([place]) Comment on above: Performed By: #### Bhavesh RUGU ####[address] [address] Opiate (u) Negative Normal Negative [facility] ([place]) Comment on above: Performed By: #### Bhavesh RUGU ####[address] [address] Oxycodone (u) Negative Normal Negative [facility] ([place]) Comment on above: Result Comment: Test ing has been performed FOR MEDICAL PURPOSES ONLY. Performed By: #### Bhavesh RUGU ####[address] [address] PCP (u) Negative Normal Negative [facility] ([place]) Comment on above: Performed By: #### Bhavesh RUGU ####[address] [address] Propoxyphene (u) Negative Normal Negative [facility] ([place]) Comment on above: Performed By: #### Bhavesh RUGU ####[address] [address] U pH Drug Scrn 5.5 Normal 5.0-8.0 [facility] ([place]) Comment on above: Performed By: #### Bhavesh GRIJALVAU ####[place] [address] Urine Drugs screened: See Below Normal [facility] ([place]) Comment on above: Result Comment: This drug screen is a presumptive screening only.No confirmation will be performed unless requested.Drugs screened include: ThresholdAmphetamines/Methamphetamines 1,000 ng/mLBarbiturates 200 ng/mLBenzodiazepine metabolites 200 ng/mLCannabinoids (THC metabolites) 50 ng/mLBenzoylecognine (Cocaine metab) 300 ng/mLOpiates 300 ng/mLPhencyclidine (PCP) 25 ng/mLMethadone 300 ng/mLPropoxyphene 300 ng/mLFentanyl 1.0 ng/mLOxycodone 100 ng/mLTesting has been performed FOR MEDICAL PURPOSES ONLY. Performed By: #### Bhavesh RUGU ####[place] [address] ESRon 01-15-2024 Erythrocyte Sed Rate 10 mm/hr Normal 0-15 [facility] ([place]) Comment on above: Performed By: #### C RP, LAC, ESR ####[place] [address] LABORATORYOrdered By: SYSTEM SYSTEM on 01-15-2024 CRP [Mass/Vol] mg/dL Normal 0.0 - 1.0 mg/dL AH ADM SS Comment on above: Interpretive Data: * *Note - New Reference Range in effect 20 Albumin BCP dye [Mass/Vol] 3.5 G/dL Normal 3.2 - 4.8 G/dL AH ADM SS Albumin/Globulin [Mass ratio] 1.1 {ratio} Normal 0.9 - 1.6 ratio AH ADM SS ALP [Catalytic activity/Vol] 123 U/L Normal 38 - 126 U/L AH ADM SS ALT No additional P-5'-P [Catalytic activity/Vol] 12 U/L Normal 12 - 55 U/L AH ADM SS AST [Catalytic activity/Vol] 15 U/L Normal 8 - 34 U/L AH ADM SS Basophils (Bld) [#/Vol] 0.0 103/mcL Normal 0.0 - 0.3 10^3/mcL AH Workflow SS Basophils/100 WBC (Bld) 0.3 % Normal 0.0 - 2.5 % AH Workflow SS Bilirubin [Mass/Vol] 0.20 mg/dL Normal 0.20 - 1.20 mg/dL AH ADM SS Comment on above: Interpretive Data: U se of this assay is not recommended for patients undergoing treatment with eltrombopag due to the potential for falsely elevated results. Calcium [Mass/Vol] 9.6 mg/dL Normal 8.7 - 10. 4 mg/dL AH ADM SS Chloride [Moles/Vol] 106 mmol/L Normal 98 - 11 0 mEq/L AH ADM SS CK [Catalytic activity/Vol] 54 U/L Normal 7 - 185 U/L AH ADM SS CO2 [Moles/Vol] 27 mmol/L Normal 22 - 32 mEq/L AH ADM SS Creatinine [Mass/Vol] 0.76 mg/dL Normal 0.60 - 1.40 mg/dL AH ADM SS Electrolyte Balance 6.0 mEq/L Normal 4.0 - 15 .0 mEq/L AH ADM SS Eosinophils (Bld) [#/Vol] 0.2 103/mcL Normal 0.0 - 0.7 10^3/mcL Workflow SS Eosinophils/100 WBC (Bld) 2.3 % Normal 0.0 - 6.0 % Workflow SS Erythrocyte distribution width (RBC) [Ratio] 15.1 % Normal 11.5 - 15.5 % Workflow SS GFR/1.73 sq M.predicted among blacks MDRD (S/P/Bld) [Vol rate/Area] ml/min/1.73sqm Invalid Interpretation Code [facility] Comment on above: Interpretive Data: GFR Population mean for , Non- Americans Ages 20-29 = 116 mL/min/1.73 sq.m. Ages 30-39 = 107 mL/min/1.73 sq.m. Ages 40-49 = 99 mL/min/1.73 sq.m. Ages 50-59 = 93 mL/min/1.73 sq.m. Ages 60-69 = 85 mL/min/1.73 sq.m. Ages 70+ = 75 mL/min/1.73 sq.m. Chronic Kidney Disease: Less than 60 mL/min/1.73 square meters End Stage Renal Disease: Less than 15 mL/min/1.73 square meters GFR/1.73 sq M.predicted among non-blacks MDRD (S/P/Bld) [Vol rate/Area] ml/min/1.73sqm Invalid Interpretation Code [facility] Comment on above: Interpretive Data: GFR Population mean for , Non- Americans Ages 20-29 = 116 mL/min/1.73 sq.m. Ages 30-39 = 107 mL/min/1.73 sq.m. Ages 40-49 = 99 mL/min/1.73 sq.m. Ages 50-59 = 93 mL/min/1.73 sq.m. Ages 60-69 = 85 mL/min/1.73 sq.m. Ages 70+ = 75 mL/min/1.73 sq.m. Chronic Kidney Disease: Less than 60 mL/min/1.73 square meters End Stage Renal Disease: Less than 15 mL/min/1.73 square meters Globulin 3.2 G/dL Normal 1.5 - 3.8 G/dL [facility] Glucose [Mass/Vol] 188 mg/dL High 70 - 110 mg/dL ADM SS Hematocrit (Bld) [Volume fraction] 41.4 % Normal 40.0 - 52.0 % AH Workflow SS Hemoglobin (Bld) [Mass/Vol] 13.7 G/dL Normal 13.0 - 17.5 G/dL AH Workflow SS Lymphocytes (Bld) [#/Vol] 3.9 103/mcL Normal 0.9 - 4.3 10^3/mcL AH Workflow SS Lymphocytes/100 WBC (Bld) 39.0 % Normal 20.0 - 40.0 % AH Workflow SS MCH (RBC) [Entitic mass] 28.3 pg Normal 27.0 - 33.0 pg AH Workflow SS MCHC 33.1 G/dL Normal 32.0 - 36.0 G/dL AH Workflow SS MCV (RBC) [Entitic vol] 85.5 fL Normal 81.0 - 100.0 fL AH Workflow SS Monocyte distribution width Auto (Bld) [Entitic vol] 15.13 1 Normal 0.00 - 20.00 Workflow SS Comment on above: Result Comment: For ED adult patients suspected of sepsis, MDW<=20.0 does not rule out sepsis or risk of sepsis Monocytes (Bld) [#/Vol] 0.7 103/mcL Normal 0.1 - 1.4 10^3/mcL AH Workflow SS Monocytes/100 WBC (Bld) 7.0 % Normal 2.0 - 13.0 % AH Workflow SS Neutrophils (Bld) [#/Vol] 5.1 103/mcL Normal 2.3 - 8.1 10^3/mcL AH Workflow SS Neutrophils/100 WBC (Bld) 51.4 % Normal 50.0 - 75.0 % AH Workflow SS Platelet mean volume (Bld) [Entitic vol] 8.3 fL Normal 6.4 - 10.5 fL AH Workflow SS Platelets (Bld) [#/Vol] 248 103/mcL Normal 150 - 450 10^3/mcL AH Workflow SS Potassium [Moles/Vol] 3.9 mmol/L Normal 3.5 - 5.0 mEq/L ADM SS Protein [Mass/Vol] 6.7 G/dL Normal 5.7 - 8.2 G/dL ADM SS Comment on above: Interpretive Data: * *Note - New Reference Range in effect 20 RBC (Bld) [#/Vol] 4.84 106/mcL Normal 4.50 - 6.00 10^6/mcL AH Workflow SS Sodium [Moles/Vol] 139 mmol/L Normal 136 - 145 mEq/L AH ADM SS Troponin I.cardiac DL <= 0.01 ng/mL [Mass/Vol] 4 ng/L Normal 0 - 54 ng/L AH ADM SS Comment on above: Interpretive Data: High Sensitive Troponin I Reference Ranges: Female: 0-34 ng/L Male: 0-54 ng/L Testing performed on Glycosan analyzer using direct chemiluminescent technology. Urea nitrogen [Mass/Vol] 13.0 mg/dL Normal 8.0 - 22.0 mg/dL AH ADM SS Urea nitrogen/Creatinine [Mass ratio] 17.1 ratio Normal 10.0 - 22.0 ratio AH ADM SS WBC (Bld) [#/Vol] 9.9 103/mcL Normal 4.5 - 10.8 10^3/mcL AH Workflow SS LABORATORYOrdered By: Marlon Santamaria on 01-15-2024 ESR 15 minute reading (Bld) [Velocity] 10 mm/hr Normal 0 - 15 mm/hr AH Auto Heme SS LABORATORYOrdered By: Patience Adam on 01-15-2024 Lactic Acid Lvl 1.2 mmol/L Normal 0.2 - 2.0 mmol/L AH Main Rapid Comm SS LABORATORYOrdered By: Shasta Grey on 01-15-2024 Amphetamines Screen Ql (U) Negative *NA* (01/15/24 9:00 AM) Invalid Interpretation Code Negative AH ADM SS Barbiturates Screen Ql (U) Negative *NA* (01/15/24 9:00 AM) Invalid Interpretation Code Negative AH ADM SS Benzodiazepines Ql (U) Negative *NA* (01/15/24 9:00 AM) Invalid Interpretation Code Negative AH ADM SS Benzoylecgonine Screen Ql (U) Negative *NA* (01/15/24 9:00 AM) Invalid Interpretation Code Negative AH ADM SS Cannabinoids Screen Ql (U) Positive *ABN* (01/15/24 9:00 AM) Invalid Interpretation Code Negative AH ADM SS fentaNYL Screen Ql (U) Negative 2 *NA* (01/15/24 9:00 AM) Invalid Interpretation Code Negative AH ADM SS Comment on above: Interpretive Data: T esting has been performed FOR MEDICAL PURPOSES ONLY. Methadone Screen Ql (U) Negative *NA* (01/15/24 9:00 AM) Invalid Interpretation Code Negative AH ADM SS Opiates Screen Ql (U) Negative *NA* (01/15/24 9:00 AM) Invalid Interpretation Code Negative AH ADM SS oxyCODONE Ql (U) Negative 3 *NA* (01/15/24 9:00 AM) Invalid Interpretation Code Negative AH ADM SS Comment on above: Interpretive Data: T esting has been performed FOR MEDICAL PURPOSES ONLY. Phencyclidine Ql (U) Negative *NA* (01/15/24 9:00 AM) Invalid Interpretation Code Negative AH ADM SS Propoxyphene Screen Ql (U) Negative *NA* (01/15/24 9:00 AM) Invalid Interpretation Code Negative AH ADM SS Acetaminophen [Mass/Vol] mcg/mL Low 10.0 - 20.0 mcg/mL AH ADM SS Ethanol [Mass/Vol] mg/dL Invalid Interpretation Code AH ADM SS Salicylates [Mass/Vol] mg/dL Low 10.0 - 25.0 mg/dL AH ADM SS Serum Drugs screened: See Below 8 (01/15/24 5:15 AM) Normal Chemistry S Comment on above: Interpretive Data: T his drug screen is a presumptive screening only. No confirmation will be performed unless requested. Drugs included in the ER serum drug screen are: Threshold Ethanol 10.0 mg/dL Salicylate 2.0 mg/dl Acetaminophen 2.0 mcg/mL Testing has been performed FOR MEDICAL PURPOSES ONLY. LABORATORYOrdered By: Lucinda camacho on 01-15-2024 pH (U) 5.5 [pH] Normal 5.0 - 8.0 Chemistry S Urine Drugs screened: See Below 9 (01/15/24 9:00 AM) Normal Chemistry S Comment on above: Interpretive Data: T his drug screen is a presumptive screening only. No confirmation will be performed unless requested. Drugs screened include: Threshold Amphetamines/Methamphetamines 1,000 ng/mL Barbiturates 200 ng/mL Benzodiazepine metabolites 200 ng/mL Cannabinoids (THC metabolites) 50 ng/mL Benzoylecognine (Cocaine metab) 300 ng/mL Opiates 300 ng/mL Phencyclidine (PCP) 25 ng/mL Methadone 300 ng/mL Propoxyphene 300 ng/mL Fentanyl 1.0 ng/mL Oxycodone 100 ng/mL Testing has been performed FOR MEDICAL PURPOSES ONLY. LABORATORYOrdered By: Jae jcbairon Houston on 01-15-2024 FLUAV RNA HIRAM+probe Ql (Resp) Negative 12 (01/15/24 5:15 AM) Normal Negative AH Auto Viro/Sero SS Comment on above: Result Comment: [place] [id number] FLUBV RNA HIRAM+probe Ql (Resp) Negative 13 (01/15/24 5:15 AM) Normal Negative AH Auto Viro/Sero SS Comment on above: Result Comment: Note s [id number] RSV PCR Negative 14 (01/15/24 5:15 AM) Normal Negative AH Auto Viro/Sero SS Comment on above: Result Comment: Note s [id number] SARS-CoV-2 (COVID-19) RNA HIRAM+probe Ql (Resp) Negative 10, 11 (01/15/24 5:15 AM) Normal Negative AH Auto Viro/Sero SS Comment on above: Result Comment: Note s [id number] Interpretive Data: T his test has been authorized by FDA under an EUA for use by authorized laboratories and has not been FDA cleared or approved. Results from the Xpert Xpress SARS-CoV-2/Flu/RSV or Xpert Xpress SARS-CoV-2 only test should be correlated with the clinical history, epidemiological data, and other data available to the clinician evaluating the patient. Performance of the Xpert Xpress SARS-CoV-2/Flu/RSV or Xpert Xpress SARS-CoV-2 only test has only been established in nasopharyngeal swab specimens. Erroneous test results might occur from improper specimen collection; failure to follow the recommended sample collection, handling, and storage procedures; technical error; or sample mix-up.False negative results may occur if virus is present at levels below the analytical limit of detection. Viral nucleic acid may persist in vivo, independent of virus viability. Detection of analyte target(s) does not imply that the corresponding virus(es) are infectious or are the causative agents for clinical symptoms.Recent patient exposure to FluMist or other live attenuated influenza vaccines may cause inaccurate positive results. LACon 01-15-2024 Lactic Acid Lvl 1.2 mmol/L Normal 0.2-2.0 [facility] ([place]) Comment on above: Performed By: #### C RP, LAC, ESR ####[place] [id number] [place] [id number] TROPHSon 01-15-2024 High Sensitivity Troponin I 4 ng/L Normal 0-54 [facility] ([place]) Comment on above: Result Comment: High Sensitive Troponin I Reference Ranges:Female: 0-34 ng/LMale: 0-54 ng/LTesting performed on [employer] IM analyzer using direct chemiluminescent technology. Performed By: #### C MP, TROPHS, CK, ADIFF, CBC, DRUGS, GFR, MDW, ANEU ####[facility] [place] [id number] XR TIBIA/FIBULA 2 VIEWS RIGH Ton 01-15-2024 XR TIBIA/FIBULA 2 VIEWS RIGHT Normal [facility] ([place]) CT HEAD OR BRAIN WITHOUT CON TRASTon 01-07-2024 CT HEAD OR BRAIN WITHOUT CONTRAST EXAMINATION: CT HEAD OR BRAIN WITHOUT CONTRAST;01/07/2024 6:59 pm CLINICAL HISTORY: Mental status change. TECHNIQUE: Axial CT scans through the head were obtained without contrast administration. Dose reduction techniques were achieved by using: automated exposure control and/or adjustment of mA and/or kV according to patient size and/or use of iterative reconstruction technique. COMPARISON: None. FINDINGS: The cerebral hemispheres have normal white and aguilera matter. The posterior fossa appears normal. There is no edema or intracranial hemorrhage. The ventricular system is normal in size. The visualized orbits show no abnormal mass. The visualized paranasal sinuses show no air-fluid level. Middle ear cavities are clear. Mastoids are clear. IMPRESSION: No acute intracranial process. Workstation ID: [id number] Dictated by: TALON WEAVER on FriJan 07, 2024 7:24:26 PM EDT Transcribed by: TALON WEAVER on FriJan 07, 2024 7:24:26 PM EDT Finalized by: TALON WEAVER on FriJan 07, 2024 7:24:26 PM EDT [facility] Comment on above: Order Comment: Injur y/Trauma or Illness?:Illness/Other How long have you had these symptoms (acute/chronic)?:Acute Reason for exam?:Mental status change, unknown cause, speaking incomprhensible, poor historian Type of Exam?:Initial Additional signs and symptoms?:n XR CHEST PA/APon 01-07-2024 XR CHEST PA/AP EXAMINATION: XR CHEST PA/AP 01/07/2024 6:42 pm HISTORY: ORDERING SYSTEM PROVIDED HISTORY: AMS, TECHNOLOGIST PROVIDED HISTORY: Illness/Other Reason for exam: AMS Cancer History: U Surgery, RadiationHistory: U Encounter Type: Initial Additional signs and symptoms: . ORDERING SYSTEM PROVIDED DIAGNOSIS CODES: COMPARISON: None FINDINGS: Lungs are clear and well aerated. No infiltrate or nodule or effusion or pneumothorax is noted. Diaphragm and bony elements are intact. IMPRESSION: Nonacute portable chest. Workstation ID: [id number] Dictated by: BANDAR DURÁN on FriJan 07, 2024 7:14:54 PM EDT Transcribed by: BANDAR DURÁN on FriJan 07, 2024 7:14:54 PM EDT Finalized by: BANDAR DURÁN on FriJan 07, 2024 7:14:54 PM EDT [facility] Comment on above: Order Comment: Injur y/Trauma or Illness?:Illness/Other How long have you had these symptoms (acute/chronic)?:Acute Reason for exam?:AMS History of cancer?:U Surgeries, chemotherapy, or radiation?:U Type of Exam?:Initial Additional signs and symptoms?:. XR HAND RIGHT (MIN 3 VIEWS)o n 01-07-2024 XR HAND RIGHT (MIN 3 VIEWS) EXAM: XR HAND RIGHT (MIN 3 VIEWS) INDICATION: injury punture right hand COMPARISON: None available. TECHNIQUE: 3 views right hand FINDINGS: Joint spaces and alignment are maintained. Small radiopaque densities are present along the dorsum of the fourth proximal phalangeal head and middle phalangeal base. Soft tissue edema fourth finger. IMPRESSION: Small radiopaque foreign bodies in the dorsal soft tissues overlying the fourth proximal interphalangeal joint. Possible small cortical chip fracture of the fourth middle phalangeal base. Electronically signed by Efra Aguirre MD Interpreted by: Efra Aguirre MD Signed by: Efra Aguirre MD 01/06/24 Final result Normal [facility] Comment on above: Order Comment: Reaso n for exam:->injury punture right hand Reason for exam?->injury punture right hand XR Hand - right 3 Viewson Small radiopaque foreign bodies in the dorsal soft tissues overlying the fourth proximal interphalangeal joint. Possible small cortical chip fracture of the fourth middle phalangeal base. Electronically signed by Efra Aguirre MD [facility] EXAM: XR HAND RIGHT (MIN 3 VIEWS) INDICATION: injury punture right hand COMPARISON: None available. TECHNIQUE: 3 views right hand FINDINGS: Joint spaces and alignment are maintained. Small radiopaque densities are present along the dorsum of the fourth proximal phalangeal head and middle phalangeal base. Soft tissue edema fourth finger. [facility] Efra Aguirre MD - 01/06/2024 EXAM: XR HAND RIGHT (MIN 3 VIEWS) INDICATION: injury punture right hand COMPARISON: None available. TECHNIQUE: 3 views right hand FINDINGS: Joint spaces and alignment are maintained. Small radiopaque densities are present along the dorsum of the fourth proximal phalangeal head and middle phalangeal base. Soft tissue edema fourth finger. IMPRESSION: Small radiopaque foreign bodies in the dorsal soft tissues overlying the fourth proximal interphalangeal joint. Possible small cortical chip fracture of the fourth middle phalangeal base. Electronically signed by Efra Aguirre MD [facility] Radiology Study observation (narrative) [facility] XR Hand - right 3 ViewsOrder ed By: Efra Aguirre on 01-06-2024 [facility] Work Phone: CNPNorma 12-31-2023 [facility] Telephone (RADHA) TALIA RUBY ([id number]) 1980 [facility] Date Time Provider Department 12/31/23 [place] MATUTE During your visit today, we recorded the following information about you: Jeremy Barber LPN 12/31/2023 8:22 AM Signed Received 12/30/2023 from [facility]. Placed in provider's inbox for review. Route to ND for scanning. Allergies As of Date: 12/31/2023 Noted Allergy Reaction ACETAMINOPHEN 04/14/2017 6 - Diarrhea ARIPIPRAZOLE 04/14/2017 14 - Other: See Comments CHLORPHENIRAMINE 04/14/2017 6 - Diarrhea DEXTROMETHORPHAN 04/14/2017 6 - Diarrhea GUAIFENESIN 04/14/2017 6 - Diarrhea HALDOL (HALOPERIDOL) 10/16/2010 1 - Mental Status Change Comments: Mind goes blank METFORMIN 09/13/2016 5 - Intolerance Comments: GI upset and abdominal pain with XR formulation, metallic taste RISPERDAL (RISPERIDONE) 10/16/2010 13 - Dystonia Date Reviewed: 12/28/2023 Reviewed by: Yulia Cottrell RN - Fully Assessed Reason for Visit: Received Outside Medical Records [[id number]] Cmt: [facility] ED visit summary right lower leg injury Prescriptions as of 12/31/2023 - divalproex DR (DEPAKOTE) 500 mg EC tablet Take 1 tablet by mouth once daily AND 2 tablets daily at bedtime. - oxyCODONE IR (ROXICODONE) 5 mg immediate release tablet Take 1 tablet by mouth every 8 hours as needed for pain for up to 5 days. - FOLDING WALKER WITH 5" WHEELS 2 wheeled walker - SITagliptin phosphate (JANUVIA) 100 mg tablet Take 1 tablet by mouth once daily. - cholecalciferol, Vitamin D3, (VITAMIN D3) 1,250 mcg (50,000 unit) cap capsule Take 1 capsule by mouth one time a week. - simvastatin (ZOCOR) 40 mg tablet Take 1 tablet by mouth daily at bedtime. for cholesterol - levothyroxine (SYNTHROID) 50 mcg tablet take 1 tablet by mouth once daily on an empty stomach - gabapentin (NEURONTIN) 300 mg capsule Take 300 mg by mouth three times a day. - hydrOXYzine pamoate (VISTARIL) 50 mg capsule take 1 capsule by mouth every 6 hours if needed for anxiety - QUEtiapine (SEROQUEL) 300 mg tablet - traZODone (DESYREL) 50 mg tablet - blood sugar diagnostic (BLOOD GLUCOSE TEST) test strip Test blood sugar(s) two (2) times daily. Dx: Other DM Code E11.9. Insulin: No - Lancets lancets Test blood sugar(s) two (2) times daily. Dx: Other DM Code E11.9. Insulin: No. - alcohol swabs (ALCOHOL PADS) Use as needed two (2) times daily to test blood glucose. - blood sugar diagnostic (ONETOUCH VERIO TEST STRIPS) test strip Test blood sugar(s) 2 times daily. Dx: Type 2 DM - Controlled E11.9 Insulin: No - Blood-Glucose Sensor (FREESTYLE LAYA 3 SENSOR) fernando Apply new sensor every fourteen (14) days to upper arm. - CPAP/BIPAP/OTHER Type .CPAPSettings into a note to see current settings/supplies/DME information. - glimepiride (AMARYL) 4 mg tablet take 1 tablet by mouth once daily with breakfast - prazosin (MINIPRESS) 1 mg cap - Blood Pressure Kit-Extra Large kit Check blood pressure weekly and as needed, - multivitamin tablet Take 1 tablet by mouth once daily. - lancets (ONE TOUCH DELICA) 33 gauge misc Test blood sugar(s) 2 daily. Dx: Type 2 DM - Controlled E11.9 Insulin: No - TRUE METRIX GLUCOSE METER misc as directed. - acetaminophen (TYLENOL) 325 mg tablet Take 2 tablets by mouth every 6 hours as needed. 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] 11/27/2017 Osteomyelitis (HCC) [M86.9] 11/27/2017 2017 Osteomyelitis of right tibia (HCC) [M86.9] 11/26/2017 02/10/2018 Vitamin D insufficiency [E55.9] 12/01/2017 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*12/30/2017 Tobacco use [Z72.0] 12/30/2017 Vitamin D deficiency [E55.9] 12/30/2017 08/07/2020 Osteomyelitis of right tibia (HCC) [M86.9] 02/10/2018 11/13/2018 Rosacea [L71.9] 04/27/2018 Schizophrenia (HCC) [F20.9] MAXIMO treated with BiPAP [G47.33] 12/18/2016 Osteomyelitis of right tibia, unspecified type *12/27/2023 Encounter Status:Closed by JEREMY BARBER on 12/31/23 [facility]23 CNPN Telephone (PODCCP) TALIA RUBY ([id number]) 1980 [facility] Date Time Provider Department 12/30/23 HAILEY MÁRQUEZ PODCCP During your visit today, we recorded the following information about you: Allergies As of Date: 12/30/2023 Noted Allergy Reaction ACETAMINOPHEN 04/14/2017 6 - Diarrhea ARIPIPRAZOLE 04/14/2017 14 - Other: See Comments CHLORPHENIRAMINE 04/14/2017 6 - Diarrhea DEXTROMETHORPHAN 04/14/2017 6 - Diarrhea GUAIFENESIN 04/14/2017 6 - Diarrhea HALDOL (HALOPERIDOL) 10/16/2010 1 - Mental Status Change Comments: Mind goes blank METFORMIN 09/13/2016 5 - Intolerance Comments: GI upset and abdominal pain with XR formulation, metallic taste RISPERDAL (RISPERIDONE) 10/16/2010 13 - Dystonia Date Reviewed: 12/28/2023 Reviewed by: Yulia Cottrell, RN - Fully Assessed Reason for Visit: Follow Up Phone Call [[id number]] Cmt: Post Discharge F/U - attempt made. No answer. Prescriptions as of 12/30/2023 - divalproex DR (DEPAKOTE) 500 mg EC tablet Take 1 tablet by mouth once daily AND 2 tablets daily at bedtime. - oxyCODONE IR (ROXICODONE) 5 mg immediate release tablet Take 1 tablet by mouth every 8 hours as needed for pain for up to 5 days. - FOLDING WALKER WITH 5" WHEELS 2 wheeled walker - SITagliptin phosphate (JANUVIA) 100 mg tablet Take 1 tablet by mouth once daily. - cholecalciferol, Vitamin D3, (VITAMIN D3) 1,250 mcg (50,000 unit) cap capsule Take 1 capsule by mouth one time a week. - simvastatin (ZOCOR) 40 mg tablet Take 1 tablet by mouth daily at bedtime. for cholesterol - levothyroxine (SYNTHROID) 50 mcg tablet take 1 tablet by mouth once daily on an empty stomach - gabapentin (NEURONTIN) 300 mg capsule Take 300 mg by mouth three times a day. - hydrOXYzine pamoate (VISTARIL) 50 mg capsule take 1 capsule by mouth every 6 hours if needed for anxiety - QUEtiapine (SEROQUEL) 300 mg tablet - traZODone (DESYREL) 50 mg tablet - blood sugar diagnostic (BLOOD GLUCOSE TEST) test strip Test blood sugar(s) two (2) times daily. Dx: Other DM Code E11.9. Insulin: No - Lancets lancets Test blood sugar(s) two (2) times daily. Dx: Other DM Code E11.9. Insulin: No. - alcohol swabs (ALCOHOL PADS) Use as needed two (2) times daily to test blood glucose. - blood sugar diagnostic (ONETOUCH VERIO TEST STRIPS) test strip Test blood sugar(s) 2 times daily. Dx: Type 2 DM - Controlled E11.9 Insulin: No - Blood-Glucose Sensor (FREESTYLE LAYA 3 SENSOR) fernando Apply new sensor every fourteen (14) days to upper arm. - CPAP/BIPAP/OTHER Type .CPAPSettings into a note to see current settings/supplies/DME information. - glimepiride (AMARYL) 4 mg tablet take 1 tablet by mouth once daily with breakfast - prazosin (MINIPRESS) 1 mg cap - Blood Pressure Kit-Extra Large kit Check blood pressure weekly and as needed, - multivitamin tablet Take 1 tablet by mouth once daily. - lancets (ONE TOUCH DELICA) 33 gauge misc Test blood sugar(s) 2 daily. Dx: Type 2 DM - Controlled E11.9 Insulin: No - TRUE METRIX GLUCOSE METER misc as directed. - acetaminophen (TYLENOL) 325 mg tablet Take 2 tablets by mouth every 6 hours as needed. 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] 11/27/2017 Osteomyelitis (HCC) [M86.9] 11/27/2017 2017 Osteomyelitis of right tibia (HCC) [M86.9] 11/26/2017 02/10/2018 Vitamin D insufficiency [E55.9] 12/01/2017 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*12/30/2017 Tobacco use [Z72.0] 12/30/2017 Vitamin D deficiency [E55.9] 12/30/2017 08/07/2020 Osteomyelitis of right tibia (HCC) [M86.9] 02/10/2018 11/13/2018 Rosacea [L71.9] 04/27/2018 Schizophrenia (HCC) [F20.9] MAXIMO treated with BiPAP [G47.33] 12/18/2016 Osteomyelitis of right tibia, unspecified type *12/27/2023 Encounter Status:Closed by HAILEY MÁRQUEZ on 12/30/23 Normal [facility] Basic metabolic 2000 panelon 12-29-2023 Anion gap [Moles/Vol] 6 mmol/L Low 9-18 [facility] Comment on above: Order Comment: Speci men Type: BLOOD SPECIMEN Ordering Facility: [facility] Address: [address] [place] [address] Performed By: #### 2 4321-2 #### [facility] CLIA [id number] [address] [place] [address] [place] Calcium [Mass/Vol] 9.3 mg/dL Normal 8.5-10.2 [facility] Comment on above: Order Comment: Shonda shelton Type: BLOOD SPECIMEN Ordering Facility: [facility] Address: [address] [place] [address] Performed By: #### 2 4321-2 #### [facility] CLIA [id number] [address] [place] [address] [place] Chloride [Moles/Vol] 102 mmol/L Normal 97-105 [facility] Comment on above: Order Comment: Speci men Type: BLOOD SPECIMEN Ordering Facility: [facility] Address: [address] [place] [address] Performed By: #### 2 4321-2 #### [facility] CLIA [id number] [address] [place] CO2 [Moles/Vol] 33 mmol/L High 22-30 [facility] Comment on above: Order Comment: Speci men Type: BLOOD SPECIMEN Ordering Facility: [facility] Address: [address] [place] [address] Performed By: #### 2 4321-2 #### [facility] CLIA [id number] [address] [place] [address] [place] Creatinine [Mass/Vol] 0.77 mg/dL Normal 0.73-1.22 [facility] Comment on above: Order Comment: Speci men Type: BLOOD SPECIMEN Ordering Facility: [facility] Address: [address] [place] [address] Performed By: #### 2 4321-2 #### [facility] CLIA [id number] [address] Creatinine and Glomerular filtration rate.predicted panel (S/P/Bld) 113 mL/min/1.73m??? Normal >=60 [facility] Comment on above: Order Comment: Speci men Type: BLOOD SPECIMEN Ordering Facility: [facility] Address: [address] [place] [address] Result Comment: Amena mated Glomerular Filtration Rate (eGFR) is calculated using the 2020 CKD-EPI creatinine equation. This equation utilizes serum creatinine, sex, and age as parameters. The creatinine assay has traceable calibration to isotope dilution-mass spectrometry. Refer to KDIGO guidelines for clinical interpretation. In patients with unstable renal function, e.g. those with acute kidney injury, the eGFR may not accurately reflect actual GFR. Performed By: #### 2 4321-2 #### [facility] CLIA [id number] [address] [place] [address] [place] Glucose [Mass/Vol] 113 mg/dL High 74-99 [facility] Comment on above: Order Comment: Shonda shelton Type: BLOOD SPECIMEN Ordering Facility: [facility] Address: [address] [place] [address] Result Comment: The [place] Diabetes Association (ADA) provides guidance for cutoff values for fasting glucose and random glucose. The ADA defines fasting as no caloric intake for at least 8 hours. Fasting plasma glucose results between 100 to 125 mg/dL indicate increased risk for diabetes (prediabetes). Fasting plasma glucose results greater than or equal to 126 mg/dL meet the criteria for diagnosis of diabetes. In the absence of unequivocal hyperglycemia, results should be confirmed by repeat testing. In a patient with classic symptoms of hyperglycemia or hyperglycemic crisis, random plasma glucose results greater than or equal to 200 mg/dL meet the criteria for diagnosis of diabetes. Reference: Standards of Medical Care in Diabetes 2016, [place] [employer]. Diabetes Care. 2016.39(Suppl 1). Performed By: #### 2 4321-2 #### [facility] CLIA [id number] [address] [place] [address] [place] Potassium [Moles/Vol] 4.2 mmol/L Normal 3.7-5.1 [facility] Comment on above: Order Comment: Shonda shelton Type: BLOOD SPECIMEN Ordering Facility: [facility] Address: [address] [place] [address] Performed By: #### 2 4321-2 #### [facility] CLIA [id number] [address] [place] [address] [place] Sodium [Moles/Vol] 141 mmol/L Normal 136-144 [facility] Comment on above: Order Comment: Shonda shelton Type: BLOOD SPECIMEN Ordering Facility: [facility] Address: [address] [place] [address] Performed By: #### 2 4321-2 #### [facility] CLIA [id number] [address] Urea nitrogen [Mass/Vol] 12 mg/dL Normal 9-24 [facility] Comment on above: Order Comment: Speci men Type: BLOOD SPECIMEN Ordering Facility: [facility] Address: [address] [place] [address] Performed By: #### 2 4321-2 #### [facility] CLIA [id number] [address] CASE MANAGEMon 12-29-2023 CASE MANAGEM HNO ID: [id number] Author: ANTONELLA SILVERMAN RN Service: ? Author Type: Registered Nurse Type: Care Mgt Progress Note Filed: 12/29/2023 15:13 Note Text: CARE MANAGEMENT DISCHARGE NOTE SERVICE DATE: December 29, 2023 SERVICE TIME: 1515 Admission Date: 12/27/2023 LOS: 2 days Discharge Arrangement Discharge Arrangement: Home with Self Care, Home with Relative Caregiver Assessment Caregiver is ready, willing and able to meet the patient's needs as recommended by the inter-professional team: No Caregiver needed Transportation Arrangements Transportation Arrangements: Car Date of Trip: 12/29/23 Destination: Mother's home Handoff Communication: Handoff to: Primary Care Physician Primary Care Physician Name/Phone: Dr. King Matute [phone] Additional Information: Patient cleared by psychiatry. SW offered resources and patient declined. DC home today with mother. Either mother or sister will transport. SIGNATURE: Antonella Silverman RN PATIENT NAME: Talia Ruby DATE: December 29, 2023 TIME: 3:13 PM CONTACT #: [phone] Normal [facility] CBC W Auto Differential pane l (Bld)on 12-29-2023 Basophils (Bld) [#/Vol] 0.04 10*3/uL Normal <0.11 [facility] Comment on above: Order Comment: Speci men Type: BLOOD SPECIMEN Ordering Facility: [facility] Address: [address] [place] [address] Performed By: #### 5 7021-8 #### [facility] CLIA [id number] [address] [place] [address] [place] Basophils/100 WBC (Bld) 0.4 % Normal A [facility] Comment on above: Order Comment: Speci men Type: BLOOD SPECIMEN Ordering Facility: [facility] Address: [facility] [place] [address] Performed By: #### 5 7021-8 #### [facility] CLIA [id number] [address] Differential cell count method Nom (Bld) Auto Normal [facility] Comment on above: Order Comment: Speci men Type: BLOOD SPECIMEN Ordering Facility: [facility] Address: [address] [place] [address] Performed By: #### 5 7021-8 #### [facility] CLIA [id number] [address] Eosinophils (Bld) [#/Vol] 0.19 10*3/uL Normal <0.46 [facility] Comment on above: Order Comment: Speci men Type: BLOOD SPECIMEN Ordering Facility: [facility] Address: [address] [place] [address] Performed By: #### 5 7021-8 #### [facility] CLIA [id number] [address] Eosinophils/100 WBC (Bld) 1.9 % Normal [facility] Comment on above: Order Comment: Speci men Type: BLOOD SPECIMEN Ordering Facility: [facility] Address: [address] [place] [address] Performed By: #### 5 7021-8 #### [facility] CLIA [id number] [address] Erythrocyte distribution width (RBC) [Ratio] 14.6 % Normal 11.5-15.0 [facility] Comment on above: Order Comment: Speci men Type: BLOOD SPECIMEN Ordering Facility: [facility] Address: [address] [place] [address] Performed By: #### 5 7021-8 #### [facility] CLIA [id number] [address] [place] Hematocrit (Bld) [Volume fraction] 41.0 % Normal 39.0-51.0 [facility] Comment on above: Order Comment: Speci men Type: BLOOD SPECIMEN Ordering Facility: [facility] Address: [address] [place] [address] Performed By: #### 5 7021-8 #### [facility] CLIA [id number] [address] [place] Hemoglobin (Bld) [Mass/Vol] 13.0 g/dL Normal 13.0-17.0 [facility] Comment on above: Order Comment: Speci men Type: BLOOD SPECIMEN Ordering Facility: [facility] Address: [address] [place] [address] Performed By: #### 5 7021-8 #### [facility] CLIA [id number] [address] [place] Immature granulocytes (Bld) [#/Vol] 0.05 10*3/uL Normal <0.10 [facility] Comment on above: Order Comment: Speci men Type: BLOOD SPECIMEN Ordering Facility: [facility] Address: [address] [place] [address] Performed By: #### 5 7021-8 #### [facility] CLIA [id number] [address] [place] Immature granulocytes/100 WBC (Bld) 0.5 % Normal [facility] Comment on above: Order Comment: Speci men Type: BLOOD SPECIMEN Ordering Facility: [facility] Address: [address] [place] [address] Performed By: #### 5 7021-8 #### [facility] CLIA [id number] [address] [place] Lymphocytes (Bld) [#/Vol] 2.85 10*3/uL Normal 1.00-4.00 [facility] Comment on above: Order Comment: Speci men Type: BLOOD SPECIMEN Ordering Facility: [facility] Address: [address] [place] [address] Performed By: #### 5 7021-8 #### [facility] CLIA [id number] [address] Lymphocytes/100 WBC (Bld) 28.2 % Normal [facility] Comment on above: Order Comment: Speci men Type: BLOOD SPECIMEN Ordering Facility: [facility] Address: [address] [place] [address] Performed By: #### 5 7021-8 #### [facility] CLIA [id number] [address] MCH (RBC) [Entitic mass] 28.1 pg Normal 26.0-34.0 [facility] Comment on above: Order Comment: Speci men Type: BLOOD SPECIMEN Ordering Facility: [facility] Address: [address] [place] [address] Performed By: #### 5 7021-8 #### [facility] CLIA [id number] [address] MCHC (RBC) [Mass/Vol] 31.7 g/dL Normal 30.5-36.0 [facility] Comment on above: Order Comment: Speci men Type: BLOOD SPECIMEN Ordering Facility: [facility] Address: [address] [place] [address] Performed By: #### 5 7021-8 #### [facility] CLIA [id number] [address] MCV (RBC) [Entitic vol] 88.6 fL Normal 80.0-100.0 [facility] Comment on above: Order Comment: Speci men Type: BLOOD SPECIMEN Ordering Facility: [facility] Address: [address] [place] [address] Performed By: #### 5 7021-8 #### [facility] CLIA [id number] [address] Monocytes (Bld) [#/Vol] 0.67 10*3/uL Normal <0.87 [facility] Comment on above: Order Comment: Speci men Type: BLOOD SPECIMEN Ordering Facility: [facility] Address: [address] [place] [address] Performed By: #### 5 7021-8 #### [facility] CLIA [id number] [address] [place] Monocytes/100 WBC (Bld) 6.6 % Normal A [facility] Comment on above: Order Comment: Speci men Type: BLOOD SPECIMEN Ordering Facility: [facility] Address: [address] [place] [address] Performed By: #### 5 7021-8 #### [facility] CLIA [id number] [address] [place] Neutrophils (Bld) [#/Vol] 6.31 10*3/uL Normal 1.45-7.50 [facility] Comment on above: Order Comment: Speci men Type: BLOOD SPECIMEN Ordering Facility: [facility] Address: [address] [place] [address] Performed By: #### 5 7021-8 #### [facility] CLIA [id number] [address] [place] Neutrophils/100 WBC (Bld) 62.4 % Normal [facility] Comment on above: Order Comment: Speci men Type: BLOOD SPECIMEN Ordering Facility: [facility] Address: [address] [place] [address] Performed By: #### 5 7021-8 #### [facility] CLIA [id number] [address] [place] Nucleated RBC (Bld) [#/Vol] 10*3/uL Normal <0.01 [facility] Comment on above: Order Comment: Speci men Type: BLOOD SPECIMEN Ordering Facility: [facility] Address: [facility] [place] [address] Performed By: #### 5 7021-8 #### [facility] CLIA [id number] [address] [place] Nucleated RBC/100 WBC (Bld) [Ratio] 0.0 /100 WBC Normal [facility] Comment on above: Order Comment: Speci men Type: BLOOD SPECIMEN Ordering Facility: [facility] Address: [address] [place] [address] Performed By: #### 5 7021-8 #### [facility] CLIA [id number] [address] [place] Platelet mean volume (Bld) [Entitic vol] 10.2 fL Normal 9.0-12.7 [facility] Comment on above: Order Comment: Speci men Type: BLOOD SPECIMEN Ordering Facility: [facility] Address: [address] [place] [address] Performed By: #### 5 7021-8 #### [facility] CLIA [id number] [address] [place] Platelets (Bld) [#/Vol] 235 10*3/uL Normal 150-400 [facility] Comment on above: Order Comment: Speci men Type: BLOOD SPECIMEN Ordering Facility: [facility] Address: [address] [place] [address] Performed By: #### 5 7021-8 #### [facility] CLIA [id number] [address] [place] RBC (Bld) [#/Vol] 4.63 10*6/uL Normal 4.20-6.00 [facility] Comment on above: Order Comment: Speci men Type: BLOOD SPECIMEN Ordering Facility: [facility] Address: [address] [place] [address] Performed By: #### 5 7021-8 #### [facility] CLIA [id number] [address] [place] WBC (Bld) [#/Vol] 10.11 10*3/uL Normal 3.70-11.00 [facility] Comment on above: Order Comment: Speci men Type: BLOOD SPECIMEN Ordering Facility: [facility] Address: [address] [place] [address] Performed By: #### 5 7021-8 #### [facility] CLIA [id number] [address] OF [facility] CNDSon 12-29-2023 [facility] ID: [id number] Author: ANSELMO CAAL MD Service: Orthopaedic Surgery Author Type: Physician Type: Discharge Summary Filed: 12/29/2023 16:07 Note Text: ORTHOPEDIC SURGERY DISCHARGE SUMMARY ADMISSION DATE: 12/27/2023 DISCHARGE DATE: 12/29/2023 Attending Physician: Anselmo Caal MD Admitting Diagnosis: Chronic osteomyelitis to right tibia with progressive deformity through pathological fracture of distal third tibial shaft. 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 It was determined he would benefit from admission for evaluation. He was subsequently sent to his hospital room for management and evaluation by internal medicine, orthopedics and psychiatry. Once on the floor his course was unremarkable and he did well. His diet was advanced which he tolerated. His pain was well controlled. He remained afebrile with stable vital signs throughout his stay. He was stable for discharge on hospital stay day # 2. Complete and comprehensive discharge instructions were provided to the patient as well as necessary prescriptions. The patient had no further questions and was advised to call with any questions, concerns, or problems. Patient was hemodynamically stable. Relevant labs included: Hemoglobin (g/dL) Date Value 12/29/2023 13.0 12/28/2023 13.0 12/27/2023 12.3 (L) Hematocrit (%) Date Value 12/29/2023 41.0 12/28/2023 40.8 12/27/2023 37.5 (L) Discharge Antibiotics: None DVT Prophylaxis: Sequential Compression Devices Complications: Internal medicine was consulted for post op medical management. Wound care: Shower and wash with soap and water daily and pat area dry. No creams, lotions, powders, alcohol or peroxide to incisional area. Cover with dry sterile gauze Kerlix and Kelle. Weight Bearing: Non weight bearing right lower extremity in walker boot if tolerates. Diet: Carb control diet Patient Condition @ Discharge: Stable BP 124/65 Pulse 70 Temp 36.5 ?C (97.7 ?F) (Oral) Resp 18 Ht 170.2 cm (5' 7") Wt 108.6 kg (239 lb 6.7 oz) SpO2 97% BMI 37.50 kg/m? Discharge Disposition: Home with Self Care The patient was instructed to follow-up in Follow up with Dr. Nico Benavides in 2 weeks. Call office for scheduled appointment Highest Readmission Risk Score: 16 The 30 day readmissions risk score is derived from an internally validated risk model which evaluates patient level characteristics, utilization history, medication orders and lab results up until the day of discharge. Patients with a score of 40 or above are considered highest risk for readmission. Specific patient level drivers will be listed at the bottom of the summary. The 30 day readmissions risk score is derived from an internally validated risk model which evaluates patient level characteristics, utilization history, medication orders and lab results up until the day of discharge. Patients with a score of 40 or above are considered highest risk for readmission. Specific patient level drivers will be listed at the bottom of the summary. Discharge Medications: Medication List START taking these medications oxyCODONE IR 5 mg immediate release tablet Commonly known as: ROXICODONE Take 1 tablet by mouth every 8 hours as needed for pain for up to 5 days. CHANGE how you take these medications divalproex DR 500 mg EC tablet Commonly known as: DEPAKOTE Take 1 tablet by mouth once daily AND 2 tablets daily at bedtime. What changed: See the new instructions. Dose change per psychiatry recommendations CONTINUE taking these medications acetaminophen 325 mg tablet Commonly known as: TYLENOL Take 2 tablets by mouth every 6 hours as needed. alcohol swabs Commonly known as: ALCOHOL PADS Use as needed two (2) times daily to test blood glucose. Blood Pressure Kit-Extra Large Kit Check blood pressure weekly and as needed, cholecalciferol (Vitamin D3) 1,250 mcg (50,000 unit) Cap capsule Commonly known as: VITAMIN D3 Take 1 capsule by mouth one time a week. Ubitexx LAYA 3 SENSOR Fernando Generic drug: Blood-Glucose Sensor Apply new sensor every fourteen (1 (more content not included)... Normal [facility] CONSULT Yeison 12-29-2023 CONSULT [facility] ID: [id number] Author: KENYATTA JON PA Service: Psychiatry Author Type: Physician Computer Typesetter Type: Consult Progress Note Filed: 12/29/2023 10:55 Note Text: CL FOLLOW UP - PSYCHIATRY CONSULTATION PROGRESS NOTE To contact service: DAY TIME COVERAGE: Between 8AM and 5PM, contact Kenyatta Jon PA-C, Dr Carbone, or Delisa Leonard CNP NIGHT, WEEKEND AND HOLIDAY COVERAGE: After hours (5PM to 8AM and weekends/holidays), call the answering service at [phone] We encourage the use of [employer] for communication SERVICE DATE: December 29, 2023 SERVICE TIME: 9:00 AM CHIEF COMPLAINT: family requested psychiatric admission PRESENT HISTORY: Chart reviewed. Spoke with nursing. Today, patient states he is fine. Patient states he slept some this morning but did not sleep well last night due to hospitalization. Patient states he is not suicidal. Patient states he will be staying with his mom or sister after discharge. Patient states the psychiatric medications are making him angry. Patient states the medications do not help him. Patient states he might follow-up with his provider after discharge. Patient states he is not suicidal. Patient states he is not going "to attack anyone." Patient has intermittent agitation but is redirectable and not aggressive. Patient denies AVH. Patient states he is ready for discharge. Patient states he feels he did not need to go to the hospital. Suicide Assessment Five-step Evaluation and Triage (SAFE-T) for Mental Health Professionals 1 IDENTIFY RISK FACTORS Note those that can be modified to reduce risk 2 IDENTIFY PROTECTIVE FACTORS Note those that can be enhanced 3 CONDUCT SUICIDE INQUIRY Suicidal thoughts, plans, behavior and intent 4 DETERMINE RISK LEVEL / INTERVENTION Determine risk. Choose appropriate intervention to address and reduce risk 5 DOCUMENT Assessment of risk,rationale, intervention and follow up Suicide assessments should be conducted at first contact, with any subsequent suicidal behavior, increased ideation, or pertinent clinical Change; for inpatients, prior to increasing privileges and at discharge. 1. RISK FACTORS ? Suicidal behavior: history of prior suicide attempts, aborted suicide attempts or self-injurious behavior ? Current/past psychiatric disorders: especially mood disorders, psychotic disorders, alcohol/substance abuse, ADHD, TBI, PTSD, Cluster B personality disorders, conduct disorders (antisocial behavior, aggression, impulsivity). Co-morbidity and recent onset of illness increase risk ? Carrera Symptoms: anhedonia, impulsivity, hopelessness, anxiety/panic, insomnia, command hallucinations ? Family history: of suicide, attempts, or [place] 1 psychiatric disorders requiring hospitalization ? Precipitants/Stressors/ Interpersonal: triggering events leading to humiliation, shame or despair (e.g; loss of relationship, financial or Health status-real or anticipated). Ongoing medical illness (nova. [employer] disorders, pain). Intoxication. Family turmoil/chaos. History of Physical or sexual abuse. Social isolation. ? Change in treatment: discharge from psychiatric hospital, provider or treatment change ? Access to firearms 2. PROTECTIVE FACTORS protective factors, even if present, may not counteract significant acute risk ? Internal: ability to cope with stress, taoist beliefs, frustration tolerance ? External: responsibility to children or beloved pets, positive therapeutic relationships, social supports 3. SUICIDE INQUIRY Specific questioning about thoughts, plans, behaviors, intent ? Ideation: frequency, intensity, duration- - in last 48 hours, past month and worst ever ? Plan: timing, location, lethality, availability, preparatory acts ? Behaviors: past attempts, aborted attempts, rehearsals (tying noose, loading gun), vs. non -suicidal self injurious actions ? Intent: extent to which the patient (1) expects to carry out the plan and (2) believes the plan/act to be lethal vs. self-injurious; Explore ambivalence: reasons to vs. reasons to live *For Youths: ask parent/guardian about evidence of suicidal thoughts, plans, or behaviors, and changes in mood, behaviors or disposition * Homicide Inquiry: when indicated, nova. in character disordered or paranoid males dealing with loss or humiliation. Inquire in four areas listed above. 4. RISK LEVEL/INTERVENTION ? Assessment of risk level is based on clinical judgment, after completing steps 1-3 ? Reassess as patient or environmental circumstances change RISK LEVEL RISK/PROTECTIVE FACTOR SUICIDALITY POSSIBLE INTERVENTIONS High Psychiatric disorders with severe symptoms, or acute precipitating event; protective factors not relevant Potentially lethal suicide attempt or persistent ideation with strong intent or suicide rehearsal Admission generally indicated unless a significant change reduces risk. Suicide precautions Moderate (more content not included)... Normal [facility] Valproate SerPl-mCncon 12-28 Valproate [Mass/Vol] 33.2 ug/mL Low 50.0-100.0 [facility] Comment on above: Order Comment: Speci cat Type: BLOOD SPECIMENOrdering Facility: [facility] Address: [address] [place] [address] Result Comment: Refe rence ranges and high/low indicator flags are provided as general guidelines only. The treating physician must determine appropriate target levels/dosing based on the specific clinical situation. Performed By: #### 4 086-5 ####[facility] [id number] [address] STATES OF [facility] Basic metabolic 2000 panelon 12-28-2023 Anion gap [Moles/Vol] 8 mmol/L Low 9-18 [facility] Comment on above: Order Comment: Speci men Type: BLOOD SPECIMEN Ordering Facility: [facility] Address: [address] [place] [address] Performed By: #### 2 4321-2 #### [facility] CLIA [id number] [address] [place] [address] [place] Calcium [Mass/Vol] 9.4 mg/dL Normal 8.5-10.2 [facility] Comment on above: Order Comment: Speci men Type: BLOOD SPECIMEN Ordering Facility: [facility] Address: [address] [place] [address] Performed By: #### 2 4321-2 #### [facility] CLIA [id number] [address] [place] [address] [place] Chloride [Moles/Vol] 101 mmol/L Normal 97-105 [facility] Comment on above: Order Comment: Speci men Type: BLOOD SPECIMEN Ordering Facility: [facility] Address: [address] [place] [address] Performed By: #### 2 4321-2 #### [employer] [facility] CLIA [id number] [address] [place] [address] [place] CO2 [Moles/Vol] 30 mmol/L Normal 22-30 [facility] Comment on above: Order Comment: Shonda shelton Type: BLOOD SPECIMEN Ordering Facility: [facility] Address: [address] [place] [address] Performed By: #### 2 4321-2 #### [facility] CLIA [id number] [address] [place] Creatinine [Mass/Vol] 0.72 mg/dL Low 0.73-1.22 [facility] Comment on above: Order Comment: Shonda men Type: BLOOD SPECIMEN Ordering Facility: [facility] Address: [address] [place] [address] Performed By: #### 2 4321-2 #### [facility] CLIA [id number] [address] Creatinine and Glomerular filtration rate.predicted panel (S/P/Bld) 116 mL/min/1.73m??? Normal >=60 [facility] Comment on above: Order Comment: Shonda shelton Type: BLOOD SPECIMEN Ordering Facility: [facility] Address: [address] [place] [address] Result Comment: Amena mated Glomerular Filtration Rate (eGFR) is calculated using the 2020 CKD-EPI creatinine equation. This equation utilizes serum creatinine, sex, and age as parameters. The creatinine assay has traceable calibration to isotope dilution-mass spectrometry. Refer to KDIGO guidelines for clinical interpretation. In patients with unstable renal function, e.g. those with acute kidney injury, the eGFR may not accurately reflect actual GFR. Performed By: #### 2 4321-2 #### [facility] CLIA [id number] [address] [place] Glucose [Mass/Vol] 123 mg/dL High 74-99 [facility] Comment on above: Order Comment: Shonda shelton Type: BLOOD SPECIMEN Ordering Facility: [facility] Address: [address] [place] [address] Result Comment: The [place] Diabetes Association (ADA) provides guidance for cutoff values for fasting glucose and random glucose. The ADA defines fasting as no caloric intake for at least 8 hours. Fasting plasma glucose results between 100 to 125 mg/dL indicate increased risk for diabetes (prediabetes). Fasting plasma glucose results greater than or equal to 126 mg/dL meet the criteria for diagnosis of diabetes. In the absence of unequivocal hyperglycemia, results should be confirmed by repeat testing. In a patient with classic symptoms of hyperglycemia or hyperglycemic crisis, random plasma glucose results greater than or equal to 200 mg/dL meet the criteria for diagnosis of diabetes. Reference: Standards of Medical Care in Diabetes 2016, [place] [employer]. Diabetes Care. 2016.39(Suppl 1). Performed By: #### 2 4321-2 #### [facility] CLIA [id number] [address] STATES OF [facility] Potassium [Moles/Vol] 4.5 mmol/L Normal 3.7-5.1 [facility] Comment on above: Order Comment: Shonda shelton Type: BLOOD SPECIMEN Ordering Facility: [facility] Address: [address] [place] [address] Performed By: #### 2 1-2 #### [facility] CLIA [id number] [address] STATES [facility] Sodium [Moles/Vol] 139 mmol/L Normal 136-144 [facility] Comment on above: Order Comment: Shonda shelton Type: BLOOD SPECIMEN Ordering Facility: [facility] Address: [address] [place] [address] Performed By: #### 2 4321-2 #### [facility] CLIA [id number] [address] STATES [facility] Urea nitrogen [Mass/Vol] 12 mg/dL Normal 9-24 [facility] Comment on above: Order Comment: Shonda shelton Type: BLOOD SPECIMEN Ordering Facility: [facility] Address: [address] [place] [address] Performed By: #### 2 4321-2 #### [facility] CLIA [id number] [address] [place] CBC W Auto Differential pane l (Bld)on 12-28-2023 Basophils (Bld) [#/Vol] 0.03 10*3/uL Normal <0.11 [facility] Comment on above: Order Comment: Speci men Type: BLOOD SPECIMEN Ordering Facility: [facility] Address: [address] [place] [address] Performed By: #### 5 7021-8 #### [facility] CLIA [id number] [address] Basophils/100 WBC (Bld) 0.3 % Normal A [facility] Comment on above: Order Comment: Speci men Type: BLOOD SPECIMEN Ordering Facility: [facility] Address: [address] [place] [address] Performed By: #### 5 7021-8 #### [facility] CLIA [id number] [address] Differential cell count method Nom (Bld) Auto Normal [facility] Comment on above: Order Comment: Speci men Type: BLOOD SPECIMEN Ordering Facility: [facility] Address: [address] [place] [address] Performed By: #### 5 7021-8 #### [facility] CLIA [id number] [address] Eosinophils (Bld) [#/Vol] 0.25 10*3/uL Normal <0.46 [facility] Comment on above: Order Comment: Speci men Type: BLOOD SPECIMEN Ordering Facility: [facility] Address: [address] [place] [address] Performed By: #### 5 7021-8 #### [facility] CLIA [id number] [address] Eosinophils/100 WBC (Bld) 2.3 % Normal [facility] Comment on above: Order Comment: Speci men Type: BLOOD SPECIMEN Ordering Facility: [facility] Address: [address] [place] [address] Performed By: #### 5 7021-8 #### [facility] CLIA [id number] [address] Erythrocyte distribution width (RBC) [Ratio] 15.0 % Normal 11.5-15.0 [facility] Comment on above: Order Comment: Speci men Type: BLOOD SPECIMEN Ordering Facility: [facility] Address: [facility] [place] [address] Performed By: #### 5 7021-8 #### [facility] CLIA [id number] [address] OF [place] Hematocrit (Bld) [Volume fraction] 40.8 % Normal 39.0-51.0 [facility] Comment on above: Order Comment: Speci men Type: BLOOD SPECIMEN Ordering Facility: [facility] Address: [address] [place] [address] Performed By: #### 5 7021-8 #### [facility] CLIA [id number] [address] [place] Hemoglobin (Bld) [Mass/Vol] 13.0 g/dL Normal 13.0-17.0 [facility] Comment on above: Order Comment: Speci men Type: BLOOD SPECIMEN Ordering Facility: [facility] Address: [address] [place] [address] Performed By: #### 5 7021-8 #### [facility] CLIA [id number] [address] OF [place] Immature granulocytes (Bld) [#/Vol] 0.05 10*3/uL Normal <0.10 [facility] Comment on above: Order Comment: Speci men Type: BLOOD SPECIMEN Ordering Facility: [facility] Address: [address] [place] [address] Performed By: #### 5 7021-8 #### [facility] CLIA [id number] [address] [place] Immature granulocytes/100 WBC (Bld) 0.5 % Normal [facility] Comment on above: Order Comment: Speci men Type: BLOOD SPECIMEN Ordering Facility: [facility] Address: [address] [place] [address] Performed By: #### 5 7021-8 #### [facility] CLIA [id number] [address] [place] Lymphocytes (Bld) [#/Vol] 3.24 10*3/uL Normal 1.00-4.00 [facility] Comment on above: Order Comment: Speci men Type: BLOOD SPECIMEN Ordering Facility: [facility] Address: [address] [place] [address] Performed By: #### 5 7021-8 #### [facility] CLIA [id number] [address] [place] Lymphocytes/100 WBC (Bld) 29.7 % Normal [facility] Comment on above: Order Comment: Speci men Type: BLOOD SPECIMEN Ordering Facility: [facility] Address: [address] [place] [address] Performed By: #### 5 7021-8 #### [facility] CLIA [id number] [address] OF [facility] MCH (RBC) [Entitic mass] 27.9 pg Normal 26.0-34.0 [facility] Comment on above: Order Comment: Speci men Type: BLOOD SPECIMEN Ordering Facility: [facility] Address: [address] [place] [address] Performed By: #### 5 7021-8 #### [facility] CLIA [id number] [address] OF [facility] MCHC (RBC) [Mass/Vol] 31.9 g/dL Normal 30.5-36.0 [facility] Comment on above: Order Comment: Speci men Type: BLOOD SPECIMEN Ordering Facility: [facility] Address: [address] [place] [address] Performed By: #### 5 7021-8 #### [facility] CLIA [id number] [address] MCV (RBC) [Entitic vol] 87.6 fL Normal 80.0-100.0 [facility] Comment on above: Order Comment: Speci men Type: BLOOD SPECIMEN Ordering Facility: [facility] Address: [address] [place] [address] Performed By: #### 5 7021-8 #### [facility] CLIA [id number] [address] [place] Monocytes (Bld) [#/Vol] 0.61 10*3/uL Normal <0.87 [facility] Comment on above: Order Comment: Speci men Type: BLOOD SPECIMEN Ordering Facility: [facility] Address: [address] [place] [address] Performed By: #### 5 7021-8 #### [facility] CLIA [id number] [address] OF [facility] Monocytes/100 WBC (Bld) 5.6 % Normal A [facility] Comment on above: Order Comment: Speci men Type: BLOOD SPECIMEN Ordering Facility: [facility] Address: [address] [place] [address] Performed By: #### 5 7021-8 #### [facility] CLIA [id number] [address] Neutrophils (Bld) [#/Vol] 6.73 10*3/uL Normal 1.45-7.50 [facility] Comment on above: Order Comment: Speci men Type: BLOOD SPECIMEN Ordering Facility: [facility] Address: [address] [place] [address] Performed By: #### 5 7021-8 #### [facility] CLIA [id number] [address] Neutrophils/100 WBC (Bld) 61.6 % Normal [facility] Comment on above: Order Comment: Speci men Type: BLOOD SPECIMEN Ordering Facility: [facility] Address: [address] [place] [address] Performed By: #### 5 7021-8 #### [facility] CLIA [id number] [address] [place] Nucleated RBC (Bld) [#/Vol] 10*3/uL Normal <0.01 [facility] Comment on above: Order Comment: Speci men Type: BLOOD SPECIMEN Ordering Facility: [facility] Address: [address] [place] [address] Performed By: #### 5 7021-8 #### [facility] CLIA [id number] [address] [place] Nucleated RBC/100 WBC (Bld) [Ratio] 0.0 /100 WBC Normal [facility] Comment on above: Order Comment: Speci men Type: BLOOD SPECIMEN Ordering Facility: [facility] Address: [address] [place] [address] Performed By: #### 5 7021-8 #### [facility] CLIA [id number] [address] [place] Platelet mean volume (Bld) [Entitic vol] 10.0 fL Normal 9.0-12.7 [facility] Comment on above: Order Comment: Speci men Type: BLOOD SPECIMEN Ordering Facility: [facility] Address: [address] [place] [address] Performed By: #### 5 7021-8 #### [facility] CLIA [id number] [address] [place] Platelets (Bld) [#/Vol] 251 10*3/uL Normal 150-400 [facility] Comment on above: Order Comment: Speci men Type: BLOOD SPECIMEN Ordering Facility: [facility] Address: [address] [place] [address] Performed By: #### 5 7021-8 #### [facility] CLIA [id number] [address] [place] RBC (Bld) [#/Vol] 4.66 10*6/uL Normal 4.20-6.00 [facility] Comment on above: Order Comment: Speci men Type: BLOOD SPECIMEN Ordering Facility: [facility] Address: [facility] [place] [address] Performed By: #### 5 7021-8 #### [facility] CLIA [id number] [address] [place] WBC (Bld) [#/Vol] 10.91 10*3/uL Normal 3.70-11.00 [facility] Comment on above: Order Comment: Speci men Type: BLOOD SPECIMEN Ordering Facility: [facility] Address: [address], [place] [id number] Performed By: #### 5 7021-8 #### [facility] CLIA [id number] [address] [place] [address] [place] CONSULTon 12-28-2023 CONSULT HNO ID: [id number] Author: KENYATTA JON PA Service: Psychiatry Author Type: Physician Computer Typesetter Type: Consults Filed: 12/28/2023 14:18 Note Text: CL NEW - PSYCHIATRY INITIAL CONSULTATION NOTE To contact service: DAY TIME COVERAGE: Between 8AM and 5PM, contact Kenyatta Jon PA-C, Dr Carbone, or Delisa Leonard CNP. NIGHT, WEEKEND AND HOLIDAY COVERAGE: After hours (5PM to 8AM and weekends/holidays), call answering service at [phone] We encourage the use of [employer] for communication SERVICE DATE: December 28, 2023 SERVICE TIME: 11:15 AM CONSULTING SERVICE : Psychiatry, requested by Dr. Caal REASON FOR CONSULTATION: Suicidal ideation. Visit Type: In person IDENTIFYING INFO: Mr. Ruby is a 43 year old male from [place], [place]. CHIEF COMPLAINT: suicide risk HISTORY OF PRESENT ILLNESS : Patient was admitted for right leg pain and deformity limiting his ability to walk. Today, patient is angry because nursing staff removed the phone from his room for suicide precautions. 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 Patient states he is not suicidal. Patient states staff asked him if he had suicidal thoughts within the last month and states he responded yes but states suicidal thoughts were weeks ago. Patient states he would never commit suicide because of how it would impact his family. Patient states he has been admitted to psychiatric facilities multiple times in the last year because he has had a difficult time with pain in his right leg. Patient states he has been started on multiple medications but states they do not help him. Patient states his most recent combination of medications including Seroquel and Depakote were started when he was at [facility]. Patient states he was not compliant with medications in the community. Patient states he likes to smoke a joint and drink beer to stay calm. Patient states he has been staying with his mom and sisters due to not having a home. Patient denies SI, HI, and AVH. Patient states he will cooperate with care and just wants to get help. STRESSORS: 1. Right leg pain 2. Family discourse COLLATERAL INFORMATION: Chart was reviewed; spoke with nursing staff. Does Patient Have Any Suicidal Ideations: No SAFE-T Protocol with C-SSRS - Recent Step 1: Identify Risk Factors C-SSRS Suicidal Ideation Severity Month Wish to be Have you wished you were or wished you could go to sleep and not wake up? Yes- patient denies current SI Current suicidal thoughts Have you actually had any thoughts of killing yourself? Yes - patient denies current SI Suicidal thoughts w/ Method (w/no specific Plan or Intent or act) Have you been thinking about how you might do this? Yes - patient denies current SI Suicidal Intent without Specific Plan Have you had these thoughts and had some intention of acting on them? Yes - patient denies current SI Intent with Plan Have you started to work out or worked out the details of how to kill yourself? Do you intend to carry out this plan? Yes - patient denies current SI C-SSRS Suicidal Behavior: "Have you ever done anything, started to do anything, or prepared to do anything to end your life?? Examples: Collected pills, obtained a gun, gave away valuables, wrote a will or suicide note, took out pills but didn?t swallow any, held a gun but changed your mind or it was grabbed from your hand, went to the roof but didn?t jump; or actually took pills, tried to shoot yourself, cut yourself, tried to hang yourself, etc. If ?YES? Was it within the past 3 months? Lifetime Yes Past 3 Months No Current and Past Psychiatric Dx: Mood Disorder, Psychotic disorder, and Cluster B Personality disorders or traits (ie., Borderline, Antisocial, Histrionic AND Narcissistic) Presenting Symptoms: Anxiety, pain Family History: None Precipitants/Stressors: Chronic physical pain or other acute medical problem (e.g. CORRECTIONAL OFFICER SERGEANT disorders) Change in treatment: Non-compliant or not receiving treatment Access to lethal methods: Asked SPECIFICALLY about presence or absence of a firearm in the home or ease of accessing Step 2: Identify Protective Factors (Protective factors may not counteract significant acute suicide risk factors) Internal: Identifies reasons for living External: Cultural, spiritual and/or moral attitudes against suicide and Supportive social network of family or friends Step 3: Specific questioning about Thoughts, Plans, and Suicidal Intent - (see Step 1 for Ideation Severity and Behavior) If semi-structured interview is preferred to complete this section, clinicians may opt to complete C-SSRS Lifetime/Recent for comprehensive behavior/lethality assessment. C-SSRS Suicidal Ideation Intensity (with respect to the most severe ideation 1-5 identified above) Month Frequency How many times have you (more content not included)... Normal [facility] ECG COMPLETEon 12-28-2023 ECG COMPLETE Ventricular Rate : 8 1 BPM Atrial Rate : 81 BPM P-R Interval : 150 ms QRS Duration : 78 ms Q-T Interval : 410 ms QTC Calculation(Bazett) : 476 ms Calculated P [place] : 73 degrees Calculated R [place] : 62 degrees Calculated T [place] : 58 degrees NORMAL SINUS RHYTHM NORMAL ECG NO PREVIOUS ECGS AVAILABLE Confirmed by MD READ YASSAR ([id number]) on 12/31/2023 8:41:29 AM NAME : TALIA RUBY PID : [id number] : 1980 Gender : Male Race : ORD : [id number] Procedure Date : Dec 28 2023 12:57:48 Edit Date : Dec 31 2023 08:41:29 Diagnosis: NORMAL SINUS RHYTHM NORMAL ECG NO PREVIOUS ECGS AVAILABLE Confirmed by MD READ YASSAR ([id number]) on 12/31/2023 8:41:29 AM Test Reason : Check QT Location : 200 : [facility] [id number] Overread By : MD READ YASSAR Edited By : MD READ YASSAR Referred By : , Acquired by : SHELLY ALMONTE Normal [facility] NUTRITIONon 12-28-2023 NUTRITION HNO ID: [id number] Author: SOUMYA FERNANDEZ RD Service: Nutrition Therapy Author Type: Registered Dietitian Type: Nutrition Filed: 12/28/2023 14:39 Note Text: INITIAL ASSESSMENT SERVICE DATE: 12/28/2023 SERVICE TIME: 1033 AM Nutrition Assessment: Recommended Malnutrition Diagnosis: Mild Protein-Calorie Malnutrition In the context of: Acute Illness or Injury Based on: Unintentional Weight Loss Nutrition Diagnosis: Problem: Increased nutrient needs Related to: Acute illness As evidenced by: Medical condition Estimated kilocalorie needs: 2057-0816 Calorie Calculation Method: 25-35 kcals/kg, [place] Body Weight Estimated protein needs (grams): 101-134 Grams protein determined by: 1.5 - 2.0 g/kg, [place] body weight Care Plan: Continue current diet Monitor and Evaluation: Meet greater than 75% of estimated needs, Monitor fluid/electrolyte balance, Monitor bowel function, Monitor labs, I/Os, vital signs, weight Discharge Recommendations: Diet Diet: CHO controlled HPI: 43 yo male, length of stay 1 day, presented with right lower extremity pain and deformity - ortho managing, Psych consult pending, on regular diet with po good - requesting double meat portions and more milk, BM "couple days ago". Meds and labs reviewed - lytes noted, noted edema with wt 108.6 kg, and GI with tender abdomen. 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 Weight change percentage over time: 19.1% loss over 14 months Weight Change: Potentially clinically signficant but does not meet criteria to support malnutrition diagnosis Last Wt 12/27/23 : 108.6 kg (239 lb 6.7 oz) 12/09/23 : 115 kg (253 lb 8.5 oz) - [facility] - 5.6% loss over 18 days 11/25/23 : 109.8 kg (242 lb), [place], [place] 05/20/23 : 121.1 kg (267 lb) 10/21/22 : 134.3 kg (296 lb) - 14 months 03/07/22 : 134.3 kg (296 lb) 09/19/21 : 133.8 kg (295 lb) 08/02/21 : 131.1 kg (289 lb) 03/12/21 : (!) 136.7 kg (301 lb 6.4 oz) 11/16/19 : (!) 140.2 kg (309 lb) 07/30/19 : (!) 140.9 kg (310 lb 9.6 oz) 04/12/19 : (!) 142.9 kg (315 lb) 03/08/19 : (!) 141.7 kg (312 lb 8 oz) 01/21/19 : (!) 138.6 kg (305 lb 8 oz) 01/18/19 : (!) 140.1 kg (308 lb 12.8 oz) 11/20/18 : (!) 143.3 kg (316 lb) 11/11/18 : (!) 145.8 kg (321 lb 6.4 oz) 07/23/18 : (!) 145.9 kg (321 lb 11.2 oz) 06/08/18 : (!) 146 kg (321 lb 12.8 oz) 05/28/18 : (!) 144.4 kg (318 lb 6.4 oz) 04/27/18 : (!) 143.7 kg (316 lb 11.2 oz) Physical Exam: Subcutaneous fat loss: No fat loss Muscle loss: No muscle loss Potential micronutrient deficiency: Skin Edema/Ascites: Lower extremities Lower Extremity: Non-pitting GI Symptoms: None Functional Status: Not related to malnutrition status Potential Signs of Inflammation: Chronic condition, High CRP, Hyperglycemia, Hypoalbuminemia, Imaging studies Osteomyelitis, DM, Morbid Obesity MNT Billing: $ Initial Assessment: 1-15 minutes SIGNATURE: Soumya Fernandez RD PATIENT NAME: Talia Ruby DATE: December 28, 2023 TIME: 10:33 AM Normal [facility] Bacteria Bld Culton 12-27-19 24 Bacteria identified Cx Nom (Bld) CULTURE, BLOOD: No growth 5 days Normal [facility] Comment on above: Performed By: #### 6 00-7 ####[facility] [id number] [place] [address] [place] Bacteria identified Cx Nom (Bld) CULTURE, BLOOD: No growth 5 days Normal [facility] Comment on above: Performed By: #### 6 00-7 ####[facility] [id number] [address] CBC W Auto Differential pane l (Bld)on 12-27-2023 Basophils (Bld) [#/Vol] 0.03 10*3/uL Normal <0.11 [facility] Comment on above: Order Comment: Speci men Type: BLOOD SPECIMEN Ordering Facility: [facility] Address: [address] [place] [address] Performed By: #### 5 7021-8 #### [facility] CLIA [id number] [address] Basophils/100 WBC (Bld) 0.3 % Normal A [facility] Comment on above: Order Comment: Speci men Type: BLOOD SPECIMEN Ordering Facility: [facility] Address: [address] [place] [address] Performed By: #### 5 7021-8 #### [facility] CLIA [id number] [address] Differential cell count method Nom (Bld) Auto Normal [facility] Comment on above: Order Comment: Speci men Type: BLOOD SPECIMEN Ordering Facility: [facility] Address: [address] [place] [address] Performed By: #### 5 7021-8 #### [facility] CLIA [id number] [address] [place] [address] [place] [facility] Eosinophils (Bld) [#/Vol] 0.25 10*3/uL Normal <0.46 [facility] Comment on above: Order Comment: Speci men Type: BLOOD SPECIMEN Ordering Facility: [facility] Address: [facility] [place] [address] Performed By: #### 5 7021-8 #### [facility] CLIA [id number] [address] Eosinophils/100 WBC (Bld) 2.4 % Normal [facility] Comment on above: Order Comment: Speci men Type: BLOOD SPECIMEN Ordering Facility: [facility] Address: [address] [place] [address] Performed By: #### 5 7021-8 #### [facility] CLIA [id number] [address] STATES OF [facility] Erythrocyte distribution width (RBC) [Ratio] 14.9 % Normal 11.5-15.0 [facility] Comment on above: Order Comment: Speci men Type: BLOOD SPECIMEN Ordering Facility: [facility] Address: [address] [place] [address] Performed By: #### 5 7021-8 #### [facility] CLIA [id number] [address] [place] Hematocrit (Bld) [Volume fraction] 37.5 % Low 39.0-51.0 [facility] Comment on above: Order Comment: Speci men Type: BLOOD SPECIMEN Ordering Facility: [facility] Address: [address] [place] [address] Performed By: #### 5 7021-8 #### [facility] CLIA [id number] [address] [place] Hemoglobin (Bld) [Mass/Vol] 12.3 g/dL Low 13.0-17.0 [facility] Comment on above: Order Comment: Speci men Type: BLOOD SPECIMEN Ordering Facility: [facility] Address: [address] [place] [address] Performed By: #### 5 7021-8 #### [facility] CLIA [id number] [address] [place] Immature granulocytes (Bld) [#/Vol] 0.06 10*3/uL Normal <0.10 [facility] Comment on above: Order Comment: Speci men Type: BLOOD SPECIMEN Ordering Facility: [facility] Address: [address] [place] [address] Performed By: #### 5 7021-8 #### [facility] CLIA [id number] [address] OF [facility] Immature granulocytes/100 WBC (Bld) 0.6 % Normal [facility] Comment on above: Order Comment: Speci men Type: BLOOD SPECIMEN Ordering Facility: [facility] Address: [address] [place] [address] Performed By: #### 5 7021-8 #### [facility] CLIA [id number] 1 18 [address] [place] Lymphocytes (Bld) [#/Vol] 3.07 10*3/uL Normal 1.00-4.00 [facility] Comment on above: Order Comment: Speci men Type: BLOOD SPECIMEN Ordering Facility: [facility] Address: [address] [place] [address] Performed By: #### 5 7021-8 #### [facility] CLIA [id number] [address] Lymphocytes/100 WBC (Bld) 29.1 % Normal [facility] Comment on above: Order Comment: Speci men Type: BLOOD SPECIMEN Ordering Facility: [facility] Address: [address] [place] [address] Performed By: #### 5 7021-8 #### [facility] CLIA [id number] [address] [place] MCH (RBC) [Entitic mass] 28.6 pg Normal 26.0-34.0 [facility] Comment on above: Order Comment: Speci men Type: BLOOD SPECIMEN Ordering Facility: [facility] Address: [address] [place] [address] Performed By: #### 5 7021-8 #### [facility] CLIA [id number] [address] [place] MCHC (RBC) [Mass/Vol] 32.8 g/dL Normal 30.5-36.0 [facility] Comment on above: Order Comment: Speci men Type: BLOOD SPECIMEN Ordering Facility: [facility] Address: [address] [place] [address] Performed By: #### 5 7021-8 #### [facility] CLIA [id number] [address] [place] MCV (RBC) [Entitic vol] 87.2 fL Normal 80.0-100.0 [facility] Comment on above: Order Comment: Speci men Type: BLOOD SPECIMEN Ordering Facility: [facility] Address: [address] [place] [address] Performed By: #### 5 7021-8 #### [facility] CLIA [id number] [address] [place] Monocytes (Bld) [#/Vol] 0.66 10*3/uL Normal <0.87 [facility] Comment on above: Order Comment: Speci men Type: BLOOD SPECIMEN Ordering Facility: [facility] Address: [address] [place] [address] Performed By: #### 5 7021-8 #### [facility] CLIA [id number] [address] Monocytes/100 WBC (Bld) 6.3 % Normal [facility] Comment on above: Order Comment: Speci men Type: BLOOD SPECIMEN Ordering Facility: [facility] Address: [address] [place] [address] Performed By: #### 5 7021-8 #### [facility] CLIA [id number] [address] [place] Neutrophils (Bld) [#/Vol] 6.49 10*3/uL Normal 1.45-7.50 [facility] Comment on above: Order Comment: Speci men Type: BLOOD SPECIMEN Ordering Facility: [facility] Address: [address] [place] [address] Performed By: #### 5 7021-8 #### [facility] CLIA [id number] [address] [place] Neutrophils/100 WBC (Bld) 61.3 % Normal [facility] Comment on above: Order Comment: Speci men Type: BLOOD SPECIMEN Ordering Facility: [facility] Address: [address] [place] [address] Performed By: #### 5 7021-8 #### [facility] CLIA [id number] [address] [place] Nucleated RBC (Bld) [#/Vol] 10*3/uL Normal <0.01 [facility] Comment on above: Order Comment: Speci men Type: BLOOD SPECIMEN Ordering Facility: [facility] Address: [address] [place] [address] Performed By: #### 5 7021-8 #### [facility] CLIA [id number] [address] [place] Nucleated RBC/100 WBC (Bld) [Ratio] 0.0 /100 WBC Normal [facility] Comment on above: Order Comment: Speci men Type: BLOOD SPECIMEN Ordering Facility: [facility] Address: [address] [place] [address] Performed By: #### 5 7021-8 #### [facility] CLIA [id number] [address] [place] Platelet mean volume (Bld) [Entitic vol] 10.2 fL Normal 9.0-12.7 [facility] Comment on above: Order Comment: Speci men Type: BLOOD SPECIMEN Ordering Facility: [facility] Address: [address] [place] [address] Performed By: #### 5 7021-8 #### [facility] CLIA [id number] [address] [place] Platelets (Bld) [#/Vol] 240 10*3/uL Normal 150-400 [facility] Comment on above: Order Comment: Speci men Type: BLOOD SPECIMEN Ordering Facility: [facility] Address: [address] [place] [address] Performed By: #### 5 7021-8 #### [facility] CLIA [id number] [address] [place] RBC (Bld) [#/Vol] 4.30 10*6/uL Normal 4.20-6.00 [facility] Comment on above: Order Comment: Speci men Type: BLOOD SPECIMEN Ordering Facility: [facility] Address: [address] [place] [id number] Performed By: #### 5 7021-8 #### [facility] CLIA [id number] [address] WBC (Bld) [#/Vol] 10.56 10*3/uL Normal 3.70-11.00 [facility] Comment on above: Order Comment: Speci men Type: BLOOD SPECIMEN Ordering Facility: [facility] Address: [address] [place] [id number] Performed By: #### 5 7021-8 #### [facility] CLIA [id number] [address] CONSULTon 12-27-2023 CONSULT HNO ID: [id number] Author: UBALDO RAMIREZ MD Service: Hospital Medicine Author Type: Physician Type: Consults Filed: 12/27/2023 19:12 Note Text: DEPARTMENT OF HOSPITAL MEDICINE INITIAL CONSULT SERVICE DATE: 12/27/2023 SERVICE TIME: 2:24 PM Primary Care Physician: King Matute MD NIGHT AND WEEKEND COVERAGE: [facility] COVERAGE: From 7am - 7pm, please call sound color pager After 7pm, please call cross cover pager #[phone] REASON FOR CONSULT: Medical management REQUESTING PHYSICIAN: Anselmo Caal MD Subjective HPI: This is a 43 year old male who presents with T2DM, nicotine dependence, schizophrenia, and bipolar disorder who presented to [facility] ED as a transfer [facility] due to concern for right lower extremity pain and deformity along with limited ability to ambulate dependently for last 3 to 4 weeks. He presented to the local ED on 11/25/[address] RLE obtained concerning for possible cellulitis and chronic fracture. He was discharged on p.o. Bactrim. However, he continued to deteriorate and presented to the ED. Patient was admitted to orthopedic surgery team. Internal medicine team was consulted for medical management. On my evaluation, patient was complaining of cough with productive sputum that is chronic with no difficulty in breathing, chest pain, fever, rigors or chills. Patient denies any other complaints. Travel Screening Question Response Have you been in contact with someone who was sick? -- Do you have any of the following new or worsening symptoms? -- Have you traveled internationally or domestically in the last month? No Travel History Travel since 11/27/23 No documented travel since 11/27/23 Additional Travel Screening/COVID-19 Questions: Flowsheet Row Nurse Triage from 08/07/2021 in Nurse Phone Triage COVID-19 Symptoms Start Date 08/07/21 PAST MEDICAL HISTORY Diagnosis Date Chickenpox Morbid obesity (HCC) MAXIMO treated with BiPAP 12/18/2016 [facility] Osteomyelitis (HCC) 1996 From open Fx tibia/ Schizophrenia (HCC) Seasonal allergies Type 2 diabetes mellitus (HCC) PAST SURGICAL HISTORY Procedure Laterality Date OPEN TRTMT, PROXIMAL TIBIAL FRACTURE 1996 Complex, open fx, muscle and skin graft. PICC LINE INSERTION (PICC TEAM) ([place]) 11/29/2017 Tibia revise 1997 Elijah placed. Tibia revise 2001 Elijah removed. FAMILY HISTORY Problem Relation Age of Onset Psychiatry Father Suicide. Depression. Diabetes Mother Hypertension Mother other (Fibromyalgia) Mother other (Degen disc) Brother other (Fibromyalgia) Sister Heart Paternal Grandfather MD Hypertension Maternal Grandmother Stroke Maternal Grandmother Diabetes Brother Social History Tobacco Use Smoking status: Every Day Packs/day: 0.25 Years: 15.00 Additional pack years: 0.00 Total pack years: 3.75 Types: Cigarettes Last attempt to quit: 05/08/2018 Years since quittin.6 Passive exposure: Current Smokeless tobacco: Former Types: Chew Substance Use Topics Alcohol use: No Drug use: No PRIOR TO ADMISSION MEDICATIONS: SITagliptin phosphate (JANUVIA) 100 mg tablet, Take 1 tablet by mouth once daily., Disp: 90 tablet, Rfl: 3 cholecalciferol, Vitamin D3, (VITAMIN D3) 1,250 mcg (50,000 unit) cap capsule, Take 1 capsule by mouth one time a week., Disp: 12 capsule, Rfl: 1 simvastatin (ZOCOR) 40 mg tablet, Take 1 tablet by mouth daily at bedtime. for cholesterol, Disp: 90 tablet, Rfl: 3 levothyroxine (SYNTHROID) 50 mcg tablet, take 1 tablet by mouth once daily on an empty stomach, Disp: 90 tablet, Rfl: 3 gabapentin (NEURONTIN) 300 mg capsule, Take 300 mg by mouth three times a day., Disp: , Rfl: hydrOXYzine pamoate (VISTARIL) 50 mg capsule, take 1 capsule by mouth every 6 hours if needed for anxiety, Disp: , Rfl: QUEtiapine (SEROQUEL) 300 mg tablet, , Disp: , Rfl: , 12/25/2023 traZODone (DESYREL) 50 mg tablet, , Disp: , Rfl: blood sugar diagnostic (BLOOD GLUCOSE TEST) test strip, Test blood sugar(s) two (2) times daily. Dx: Other DM Code E11.9. Insulin: No, Disp: 200 Strip, Rfl: 3 Lancets lancets, Test blood sugar(s) two (2) times daily. Dx: Other DM Code E11.9. Insulin: No., Disp: 200 Each, Rfl: 3 alcohol swabs (ALCOHOL PADS), Use as needed two (2) times daily to test blood glucose., Disp: 180 Each, Rfl: 3 blood sugar diagnostic (ONETOUCH VERIO TEST STRIPS) test strip, Test blood sugar(s) 2 times daily. Dx: Type 2 DM - Controlled E11.9 Insulin: No, Disp: 50 Strip, Rfl: 11 Blood-Glucose Sensor (FREESTYLE LAYA 3 SENSOR) fernando, Apply new sensor every fourteen (14) days to upper arm., Disp: 6 Each, Rfl: [address] (DEPAKOTE) 500 mg EC tablet, Take 1 tablet by mouth every morning AND 2 tablets daily at bedtime. (Patient taking differently: Take 1 tablet by mouth every morning AND 1 tablet daily at bedtime.), Disp: , Rfl: CPAP/BIPAP/OTHER, Type .CPAPSettings into a note to see current settings/supplies/DME information. (Pat (more content not included)... Normal [facility] CRP SerPl-mCncon 12-27-2023 CRP [Mass/Vol] 2.7 mg/dL High <0.9 [facility] Comment on above: Order Comment: Speci men Type: BLOOD SPECIMEN Ordering Facility: [facility] Address: [address] [place], [place] [address] Performed By: #### 1 988-5, 62437-3 #### [facility] CLIA [id number] [address] OF [facility] Comprehensive metabolic 2000 panelon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 chest pain, palpitations Resp: No cough, wheeze, shortness of breath GI: No reflux symptoms, food intolerance, bowel changes. : No urinary frequency, dysuria. MS: +worsening lower right leg pain Neuro: twithing form chronic meds, unchanges. PAST MEDICAL HISTORY PAST MEDICAL HISTORY Diagnosis Date Chickenpox Morbid obesity (HCC) MAXIMO treated with BiPAP 12/18/2016 [facility] Osteomyelitis (HCC) 1996 From open Fx tibia/ Schizophrenia (HCC) Seasonal allergies Type 2 diabetes mellitus (HCC) PHYSICAL EXAMINATION BP 142/86 Pulse 98 Ht 170.2 cm (5' 7") Wt 115 kg (253 lb 8.5 oz) SpO2 98% BMI 39.71 kg/m? General: Alert, well developed, well nourished, no distress, pleasant and cooperative. Obese. Heart: Regular rate and rhythm. Normal S1 and S2. No murmurs, rubs, or gallops. Lungs: Clear to auscultation bilaterally. No respiratory distress. No wheezes, rales, or rhonchi. Abdomen: Soft, non-tender, no distention. Extremities: R leg marked deformity, with lateral soft tissue swelling, chronic skin changes on anterilr thin. Feet/ankles without edema, posterior tibial pulses full and symmetrical. Images of the leg are uploaded. Data Reviewed 11/10/2023 Two Xray Views of the Right Tibia/Fibula: FINDINGS: There are postsurgical changes in the lower leg with multiple surgical clips in the mid to distal soft tissues and evidence of prior removal of a tibial intramedullary elijah. There is a comminuted fracture of the distal tibial diaphysis with non bridging callus formation and apex anterior angulation. There is also a fracture of the mid fibular diaphysis with apex anterior angulation and non bridging callus formation. A more distal fibular diaphyseal fracture appears healed. There is diffuse soft tissue swelling throughout the mid to distal lower leg IMPRESSION: Postsurgical changes with incompletely healed tibial and fibular shaft fractures. Diffuse soft tissue edema in the mid to distal lower leg. 11/25/2023 CT Lower Extremity Right Soft Tissue with Contrast Impression: 1. Moderate to prominent superficial edematous changes/cellulitis of the distal aspect of the right lower extremity. 2. No loculated fluid collection is noted. No abnormal gaseous collections are noted. 3. Old fractures as discussed of the right tibia fibula. Assessment/Plan (L03.115, L02.415) Cellulitis and abscess of right lower extremity (primary encounter diagnosis) (M84.461A, M84.463A) Pathological fracture of both tibia and fibula of right lower extremity, unspecified pathological cause, initial encounter (M85.861) Other specified disorders of bone density and structure, right lower leg (Z13.820) Encounter for screening for osteoporosis Comment: Ongoing leg pain. The leg is not warm or red today Will check lab to rule out infection and obtain bone density. Plan: CBC DXA-AX (more content not included)... Normal [facility] Comprehensive metabolic 2000 panelon 12-09-2023 Albumin [Mass/Vol] 4.0 g/dL Normal 3.9-4.9 [facility] Comment on above: Order Comment: Speci men Type: BLOOD SPECIMENOrdering Facility: [facility] Address: [address] [id number] Performed By: #### 2 4323-8, 28660-8, 6-3 ####[facility] [id number] [address] [address] [place] ALP [Catalytic activity/Vol] 130 U/L High 38-113 [facility] Comment on above: Order Comment: Speci men Type: BLOOD SPECIMENOrdering Facility: [facility] Address: [address] [place], [place] [address] Performed By: #### 2 4323-8, 95409-7, 3015-3 ####[facility] [id number] [place] [address] [place] ALT [Catalytic activity/Vol] 12 U/L Normal 10-54 [facility] Comment on above: Order Comment: Speci men Type: BLOOD SPECIMENOrdering Facility: [facility] Address: [address] [place], [place] [address] Performed By: #### 2 4323-8, 77255-9, 3 ####[facility] [id number] [address] [id number] [place] Anion gap [Moles/Vol] 10 mmol/L Normal 9-18 [facility] Comment on above: Order Comment: Speci men Type: BLOOD SPECIMENOrdering Facility: [facility] Address: [address] [id number] Performed By: #### 2 4323-8, 12155-3, 6-3 ####[facility] [id number] [address] [id number] [place] AST [Catalytic activity/Vol] 17 U/L Normal 14-40 [facility] Comment on above: Order Comment: Speci men Type: BLOOD SPECIMENOrdering Facility: [facility] Address: [address] [place] [address] Performed By: #### 2 4323-8, 92361-3, 3016-3 ####[facility]IA [id number] [address] [address] [place] Bilirubin [Mass/Vol] 0.2 mg/dL Normal 0.2-1.3 [facility] Comment on above: Order Comment: Speci men Type: BLOOD SPECIMENOrdering Facility: [facility] Address: [address] [place] [address] Performed By: #### 2 4323-8, 74301-4, 3016-3 ####[facility]IA [id number] [place] [address] [place] Calcium [Mass/Vol] 10.2 mg/dL Normal 8.5-10.2 [facility] Comment on above: Order Comment: Speci men Type: BLOOD SPECIMENOrdering Facility: [facility] Address: [address] [place] [address] Performed By: #### 2 4323-8, 03854-5, 6-3 ####[facility]IA [id number] [place] [address] [place] Chloride [Moles/Vol] 104 mmol/L Normal 97-105 [facility] Comment on above: Order Comment: Speci men Type: BLOOD SPECIMENOrdering Facility: [facility] Address: [address] [place], [place] [address] Performed By: #### 2 4323-8, 90105-1, 6-3 ####[facility]IA [id number] [address] [id number] [place] CO2 [Moles/Vol] 25 mmol/L Normal 22-30 [facility] Comment on above: Order Comment: Speci men Type: BLOOD SPECIMENOrdering Facility: [facility] Address: [address] [place], [place] [address] Performed By: #### 2 4323-8, 34512-5, 3015-3 ####[facility]IA [id number] [address] [place] [id number] [place] Creatinine [Mass/Vol] 0.68 mg/dL Low 0.73-1.22 [facility] Comment on above: Order Comment: Shonda shelton Type: BLOOD SPECIMENOrdering Facility: [facility] Address: [address] [place] [address] Performed By: #### 2 4323-8, 76057-0, 3 ####[facility]IA [id number] [place] [address] [place] Creatinine and Glomerular filtration rate.predicted panel (S/P/Bld) 118 mL/min/1.73m??? Normal >=60 [facility] Comment on above: Order Comment: Shonda shelton Type: BLOOD SPECIMENOrdering Facility: [facility] Address: [address] [place] [address] Result Comment: Amena mated Glomerular Filtration Rate (eGFR) is calculated using the 2020 CKD-EPI creatinine equation. This equation utilizes serum creatinine, sex, and age as parameters. The creatinine assay has traceable calibration to isotope dilution-mass spectrometry. Refer to KDIGO guidelines for clinical interpretation. In patients with unstable renal function, e.g. those with acute kidney injury, the eGFR may not accurately reflect actual GFR. Performed By: #### 2 4323-8, 62178-2, 3 ####[facility]IA [id number] [address] [id number] [place] Glucose [Mass/Vol] 177 mg/dL High 74-99 [facility] Comment on above: Order Comment: Shonda shelton Type: BLOOD SPECIMENOrdering Facility: [facility] Address: [address] [place] [address] Result Comment: The [place] Diabetes Association (ADA) provides guidance for cutoff values for fasting glucose and random glucose. The ADA defines fasting as no caloric intake for at least 8 hours. Fasting plasma glucose results between 100 to 125 mg/dL indicate increased risk for diabetes (prediabetes). Fasting plasma glucose results greater than or equal to 126 mg/dL meet the criteria for diagnosis of diabetes. In the absence of unequivocal hyperglycemia, results should be confirmed by repeat testing. In a patient with classic symptoms of hyperglycemia or hyperglycemic crisis, random plasma glucose results greater than or equal to 200 mg/dL meet the criteria for diagnosis of diabetes. Reference: Standards of Medical Care in Diabetes 2016, [place] [employer]. Diabetes Care. 2016.39(Suppl 1). Performed By: #### 2 4323-8, 75861-0, 3015-3 ####[facility] [id number] [address] [address] [place] Potassium [Moles/Vol] 4.2 mmol/L Normal 3.7-5.1 [facility] Comment on above: Order Comment: Speci men Type: BLOOD SPECIMENOrdering Facility: [facility] Address: [address] [place] [address] Performed By: #### 2 4323-8, 54113-2, 3 ####[facility]CLIA [id number] [place] [address] [place] Protein [Mass/Vol] 7.1 g/dL Normal 6.3-8.0 [facility] Comment on above: Order Comment: Speci men Type: BLOOD SPECIMENOrdering Facility: [facility] Address: [address] [place] [address] Performed By: #### 2 4323-8, 67096-5, 3 ####[facility]CLIA [id number] [address] [address] [place] Sodium [Moles/Vol] 139 mmol/L Normal 136-144 [facility] Comment on above: Order Comment: Speci men Type: BLOOD SPECIMENOrdering Facility: [facility] Address: [address] [place] [address] Performed By: #### 2 4323-8, 82734-2, 3015-3 ####[facility]CLIA [id number] [place] [address] [place] [place] Urea nitrogen [Mass/Vol] 17 mg/dL Normal 9-24 [facility] Comment on above: Order Comment: Shonda shelton Type: BLOOD SPECIMENOrdering Facility: [facility] Address: [address] [place] [address] Performed By: #### 2 4323-8, 97810-1, 3016-3 ####[facility] LABIA [id number] [place] [address] [place] HbA1c (Bld)on 12-09-2023 Average glucose Estimated from glycated hemoglobin (Bld) [Mass/Vol] 131 mg/dL Normal [facility] Comment on above: Order Comment: Shonda shelton Type: BLOOD SPECIMENOrdering Facility: [facility] Address: [address] [place] [address] Result Comment: eAG: (Estimated average glucose) is a calculated value from HgbA1c and is tour sales representative of the average blood glucose level in the last 2-3 month period. Performed By: #### 5 5454-3 ####[facility] LABIA [id number] [place] [address] [place] HbA1c (Bld) [Mass fraction] 6.2 % High 4.3-5.6 [facility] Comment on above: Order Comment: Shonda shelton Type: BLOOD SPECIMENOrdering Facility: [facility] Address: [address] [place] [address] Result Comment: Amer ican Diabetes Association guidelines indicate that patients with HgbA1c in the range 5.7-6.4% are at increased risk for development of diabetes, and intervention by lifestyle modification may be beneficial. HgbA1c greater or equal to 6.5% is considered diagnostic of diabetes. Performed By: #### 5 5454-3 ####[facility] LABCLIA [id number] [place] [address] [place] Lipid 1996 panelon 4 Cholesterol [Mass/Vol] 176 mg/dL Normal <200 [facility] Comment on above: Order Comment: Speci men Type: BLOOD SPECIMENOrdering Facility: [facility] Address: [address] [place] [address] Result Comment: <200 mg/dL, Desirable 200-239 mg/dL, Borderline high >239 mg/dL, High Performed By: #### 2 4323-8, 07616-4, 6-3 ####[facility] LABCLIA [id number] [place] [address] [place] Cholesterol in HDL [Mass/Vol] 43 mg/dL Normal >39 [facility] Comment on above: Order Comment: Speci men Type: BLOOD SPECIMENOrdering Facility: [facility] Address: [address] [place] [address] Result Comment: 40-5 9 mg/dL, Acceptable >59 mg/dL, High: Negative risk factor for coronary heart disease <40 mg/dL, Low: Positive risk factor for coronary heart disease Performed By: #### 2 4323-8, 47133-2, 3015-3 ####[facility] LABCLIA [id number] [place] [address] [place] Cholesterol in LDL [Mass/Vol] 111 mg/dL High <100 [facility] Comment on above: Order Comment: Speci men Type: BLOOD SPECIMENOrdering Facility: [facility] Address: [address] [place] [address] Result Comment: <100 mg/dL, Optimal 100-129 mg/dL, Near optimal/above optimal 130-159 mg/dL, Borderline high 160-189 mg/dL, High >189 mg/dL, Very high Secondary prevention optimal LDL Cholesterol levels are recommended to be < 70 mg/dL Performed By: #### 2 4323-8, 44955-5, 3015-3 ####[facility] LABCLIA [id number] [facility] [address] [address] [place] Cholesterol in LDL/Cholesterol in HDL [Mass ratio] 2.58 {ratio} High <2.54 [facility] Comment on above: Order Comment: Speci men Type: BLOOD SPECIMENOrdering Facility: [facility] Address: [address] [place] [address] Result Comment: Johnna ayers: 1. National Cholesterol Education Program ATP III Guideline At-A-Glance Quick Desk Reference: National Heart, Lung, and Blood [place]. National Institutes of Health. 2001: NIH Publication No. 01-3305. 2. An International Atherosclerosis Society position paper: global recommendations for the management of dyslipidemia: executive summary, Atherosclerosis. 2014: 232(2):410-413. Performed By: #### 2 4323-8, 65225-0, 6-3 ####[facility] LABCLIA [id number] [place] [address] [place] Cholesterol in VLDL [Mass/Vol] 22 mg/dL Normal <30 [facility] Comment on above: Order Comment: Speci men Type: BLOOD SPECIMENOrdering Facility: [facility] Address: [address] [place] [address] Performed By: #### 2 4323-8, 13852-5, 6-3 ####[facility] LABCLIA [id number] [place] [address] [place] Cholesterol non HDL [Mass/Vol] 133 mg/dL High <130 [facility] Comment on above: Order Comment: Speci men Type: BLOOD SPECIMENOrdering Facility: [facility] Address: [address] [place] [address] Result Comment: <130 mg/dL, Optimal 130-159 mg/dL, Near optimal/above optimal 160-189 mg/dL, Borderline high 190-219 mg/dL, High >219 mg/dL, Very high Secondary prevention optimal non HDL Cholesterol levels are recommended to be <100 mg/dL Performed By: #### 2 4323-8, 36703-6, 3016-3 ####[facility] LABCLIA [id number] [address] [address] [place] Cholesterol.total/Roxi sterol in HDL [Mass ratio] 4.09 {ratio} Normal <5.10 [facility] Comment on above: Order Comment: Speci men Type: BLOOD SPECIMENOrdering Facility: [facility] Address: [address] [place] [address] Performed By: #### 2 4323-8, 73544-3, 3 ####[facility] LABCLIA [id number] [place] [address] [place] FASTING TIME 4 hrs Normal [facility] Comment on above: Order Comment: Speci men Type: BLOOD SPECIMENOrdering Facility: [facility] Address: [address] [place] [address] Performed By: #### 2 4323-8, 13515-2, 3015-11 ####[facility] LABCLIA [id number] [place] [address] [place] Triglyceride [Mass/Vol] 109 mg/dL Normal <150 [facility] Comment on above: Order Comment: Speci men Type: BLOOD SPECIMENOrdering Facility: [facility] Address: [address] [place] [address] Result Comment: <150 mg/dL, Normal 150-199 mg/dL, Borderline high 200-499 mg/dL, High >499 mg/dL, Very high Performed By: #### 2 4323-8, 86875-1, 3015-11 ####[facility] LABCLIA [id number] [place] [address] [place] TSH SerPl-aCncon 12-09-2023 TSH Qn 2.620 m[IU]/L Normal 0.270-4.20 0 [facility] Comment on above: Order Comment: Speci men Type: BLOOD SPECIMENOrdering Facility: [facility] Address: [address] [place] [address] Performed By: #### 2 4323-8, 43978-7, 3015-11 ####[facility] LABCLIA [id number] [address] [place] CNPNon 11-25-2023 CNPN Telephone (PEGWATIERNEY) TALIA RUBY ([id number]) 1980 M [facility] Date Time Provider Department 11/25/23 KING MATUTE During your visit today, we recorded the following information about you: Jeremy Barber LPN 11/25/2023 2:24 PM Signed Received 11/25/2023 from [facility]. Placed in provider's inbox for review. Route to [place] for scanning. Allergies As of Date: 11/25/2023 Noted Allergy Reaction ACETAMINOPHEN 04/14/2017 6 - Diarrhea ARIPIPRAZOLE 04/14/2017 14 - Other: See Comments CHLORPHENIRAMINE 04/14/2017 6 - Diarrhea DEXTROMETHORPHAN 04/14/2017 6 - Diarrhea GUAIFENESIN 04/14/2017 6 - Diarrhea HALDOL (HALOPERIDOL) 10/16/2010 1 - Mental Status Change Comments: Mind goes blank METFORMIN 09/13/2016 5 - Intolerance Comments: GI upset and abdominal pain with XR formulation, metallic taste RISPERDAL (RISPERIDONE) 10/16/2010 13 - Dystonia Date Reviewed: 03/07/2022 Reviewed by: Rossy Bains LPN - Fully Assessed Reason for Visit: Received Outside Medical Records [[id number]] Cmt: [facility] ER summary 11/24/2023 Mental Health Prescriptions as of 11/25/2023 - levothyroxine (SYNTHROID) 50 mcg tablet take 1 tablet by mouth once daily on an empty stomach - blood sugar diagnostic (BLOOD GLUCOSE TEST) test strip Test blood sugar(s) two (2) times daily. Dx: Other DM Code E11.9. Insulin: No - Lancets lancets Test blood sugar(s) two (2) times daily. Dx: Other DM Code E11.9. Insulin: No. - alcohol swabs (ALCOHOL PADS) Use as needed two (2) times daily to test blood glucose. - CPAP/BIPAP/OTHER Type .CPAPSettings into a note to see current settings/supplies/DME information. - blood sugar diagnostic (ONETOUCH VERIO TEST STRIPS) test strip Test blood sugar(s) 2 times daily. Dx: Type 2 DM - Controlled E11.9 Insulin: No - Blood-Glucose Sensor (FREESTYLE LAYA 3 SENSOR) fernando Apply new sensor every fourteen (14) days to upper arm. - SITagliptin phosphate (JANUVIA) 100 mg tablet Take 1 tablet by mouth once daily. - cholecalciferol, Vitamin D3, (VITAMIN D3) 1,250 mcg (50,000 unit) cap capsule Take 1 capsule by mouth one time a week. - meloxicam (MOBIC) 15 mg tablet Take 1 tablet by mouth once daily. - simvastatin (ZOCOR) 40 mg tablet Take 1 tablet by mouth daily at bedtime. for cholesterol - divalproex DR (DEPAKOTE) 500 mg EC tablet Take 1 tablet by mouth every morning AND 2 tablets daily at bedtime. - CPAP/BIPAP/OTHER Type .CPAPSettings into a note to see current settings/supplies/DME information. - glimepiride (AMARYL) 4 mg tablet take 1 tablet by mouth once daily with breakfast - prazosin (MINIPRESS) 1 mg cap - atomoxetine HCl (STRATTERA ORAL) Take by mouth. - cetirizine (ZYRTEC) 10 mg tablet Take 1 tablet by mouth once daily. - cyclobenzaprine (FLEXERIL) 10 mg tablet Take 1 tablet by mouth three times daily as needed. - montelukast (SINGULAIR) 10 mg tablet Take 1 tablet by mouth daily at bedtime. - Blood Pressure Kit-Extra Large kit Check blood pressure weekly and as needed, - multivitamin tablet Take 1 tablet by mouth once daily. - lancets (ONE TOUCH DELICA) 33 gauge misc Test blood sugar(s) 2 daily. Dx: Type 2 DM - Controlled E11.9 Insulin: No - dextran 70-hypromellose (ARTIFICIAL TEARS) dpet Use 1 Drop in both eyes four times daily. - TRUE METRIX GLUCOSE METER misc as directed. - ziprasidone (GEODON) 20 mg capsule Take 20 mg by mouth once daily. - acetaminophen (TYLENOL) 325 mg tablet Take 2 tablets by mouth every 6 hours as needed. - ziprasidone (GEODON) 80 mg capsule Take 80 mg by mouth once daily. 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] 11/27/2017 Osteomyelitis (HCC) [M86.9] 11/27/2017 2017 Osteomyelitis of right tibia (HCC) [M86.9] 11/26/2017 02/10/2018 Vitamin D insufficiency [E55.9] 12/01/2017 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*12/30/2017 Tobacco use [Z72.0] 12/30/2017 Vitamin D deficiency [E55.9] 12/30/2017 08/07/2020 Osteomyelitis of right tibia (HCC) [M86.9] 02/10/2018 11/13/2018 Rosacea [L71.9] 04/27/2018 Schizophrenia ([facility]) [F20.9] MAXIMO treated with BiPAP [G47.33] 12/18/2016 Encounter Status:Closed by JEREMY BARBER on 11/25/23 [facility] Absolute lymphocyte countOrd ered By: Pb León on 11-24-2023 Lymphocytes Auto (Unsp spec) [#/Vol] 3.03 10*3/uL 0.83-4.51 [facility] Automated lymphocyte count a s percentage of total leukocytesOrdered By: Pb León on 11-24-2023 Lymphocytes/100 WBC Auto (Unsp spec) 26.8 % 19-41 [facility] Basophil percentageOrdered B y: Pb León on 11-24-2023 Basophils/100 WBC (Bld) 0.3 % 0-[address] [facility] Chloride [Moles/Vol] 108 mmol/L 98-[facility] Cholesterol [Mass/Vol] 163 mg/dL <200 [facility] Comment on above: <200 mg/dL Desirable 200-240 mg/dL Borderline >240 mg/dL High Risk Eosinophils/100 WBC (Bld) 2.5 % 0-5 [facility] Glucose [Mass/Vol] 137 mg/dL 74-106 [facility] Comment on above: Fasting Glucose resu lt greater than or equal to 126 mg/dL suggests DIABETES MELLITUS per A.D.A. criteria. Hemoglobin (Bld) [Mass/Vol] 13.4 g/dL 13.0-16.5 [facility] Monocytes/100 WBC (Bld) 5.1 % 0-[address] [facility] Neutrophils (Bld) [#/Vol] 7.3 10*3/uL 2.0-7.7 [facility] Neutrophils/100 WBC (Bld) 64.9 % 47-70 [facility] Potassium [Moles/Vol] 3.9 mmol/L 3.5-5.1 [facility] Sodium [Moles/Vol] 140 mmol/L 136-145 [facility] Triglyceride [Mass/Vol] 129 mg/dL <[address] [facility] Comment on above: The drugs N-Acetylcy steine and Metamizole may falsely depress this assay.Serum Triglycerides Reference Interval Normal <150 mg/dL Borderline high 150 - 199 mg/dL High 200 - 499 mg/dL Very High > or = 500 mg/dL WBC (Bld) [#/Vol] 11.3 10*3/uL 4.4-11.0 [facility] COVID-19 virus antigen assay Ordered By: Pb León on 11-24-2023 SARS-CoV-2 (COVID-19) Ag IA.rapid Ql (Resp) [facility] Determination of erythrocyte mean corpuscular volume (MCV)Ordered By: Pb León on 11-24-2023 MCV (RBC) [Entitic vol] 84.5 fL 80-[address] [facility] Erythrocyte distribution wid th ratioOrdered By: Pb León on 11-24-2023 Erythrocyte distribution width (RBC) [Ratio] 15.9 % 11.6-14.6 [facility] Erythrocyte distribution wid th standard deviationOrdered By: Pb León on 11-24-2023 Erythrocyte distribution width (RBC) [Entitic vol] 48.8 fL 35.1-43.9 [facility] Hematocrit Auto (Bld) [Volum e fraction]Ordered By: Pb León on 11-24-2023 Hematocrit (Bld) [Volume fraction] 40.9 % 40-54 [facility] Immature granulocytes/100 WB C Auto (Bld)Ordered By: Pb León on 11-24-2023 Immature granulocytes/100 WBC (Bld) 0.400 % 0.0-0.9 [facility] Comment on above: IG% - Immature Granu locytes (promyelocytes, myelocytes and metamyelocytes) > 1% indicates that a LEFT SHIFT is Present. Laboratory - Chemistry and C hemistry - challengeOrdered By: Pb León on 11-24-2023 Cholesterol in HDL [Mass/Vol] 33 mg/dL >40 [facility] Comment on above: The drugs N-Acetylcy steine and Metamizole may falsely depress this assay. Reference Range HDL <40 mg/dL Low HDL Cholesterol HDL >or= 60 mg/dL High HDL Cholesterol Cholesterol in LDL [Mass/Vol] 104 mg/dL 0-130 [facility] CO2 [Moles/Vol] 29.0 mmol/L 21.0-32.0 [facility] Urea nitrogen/Creatinine [Mass ratio] 21.9 mg/mg 10-20 [facility] Laboratory - Drug toxicology Ordered By: Pb León on 11-24-2023 Amphetamines Ql (U) Negative <1000 ng/mL [facility] Benzodiazepines Ql (U) Negative < 200 ng/mL [facility] Cannabinoids Screen Ql (U) Positive < 50 ng/mL [facility] Cocaine Ql (U) Negative < 300 ng/mL [facility] Opiates Ql (U) Negative < 300 ng/mL [facility] Laboratory - Hematology and Cell countsOrdered By: Pb León on 11-24-2023 MCH (RBC) [Entitic mass] 27.7 pg 27.0-32.0 [facility] MCHC (RBC) [Mass/Vol] 32.8 g/dL 32-36 [facility] Nucleated RBC/100 WBC (Bld) [Ratio] 0 % 0-5 [facility] Platelet mean volume (Bld) [Entitic vol] 9.5 fL 6.2-12.0 [facility] Platelets (Bld) [#/Vol] 270 10*3/uL 150-450 [facility] No Panel InformationOrdered By: Pb León on 11-24-2023 Estimated Creatinine Clearance Calc 142.60 ml/min [facility] Estimated GFR (MDRD) Amer 140 mL/min >60 [facility] Comment on above: GFR Calc Estimated GFR (MDRD) Non-Af Amer 116 mL/min >60 [facility] Comment on above: Non- GFR Calc Ethyl Alcohol Level < 3.0 mg/dL [facility] Comment on above: The serum:whole bloo d ethanol ratio is approximately 1.14and varies slightly with hematocrit. Medical Alcohol reference interval and critical value innon-tolerant individuals; 50 - 100 Impairment 100 Intoxication 100 - 250 Severe Poisoning 250 - 400 Deep/possible fatal coma VLDL Cholesterol 26 mg/dL 5-40 [facility] MDMA (Ecstasy) Screen Negative < 500 ng/mL [facility] Urine Barbiturates Screen Negative < 200 ng/mL [facility] Urine Drug Screen Comment [facility] Comment on above: CONFIRMATORY TESTING FOR ALL POSITIVE URINE DRUG SCREENRESULTS WILL ONLY BE SENT OUT UPON PHYSICIAN ORDER. VISTA Urine Drug Screen methods provide only preliminaryanalytical test results. A more specific alternate chemicalmethod must be used in order to obtain a confirmedanalytical result. Gas chromatography/mass spectrometery(GC/MS) is the preferred confirmatory method. Clinicalconsideration and professional judgement should be appliedto any drug of abuse test result, particularly whenpreliminary positive results are used. URINE TCA TESTING MUST BE ORDERED SEPARATELY. USE TESTMNEMONIC: [facility] Urine Methadone Screen Negative < 300 ng/mL [facility] RBC Auto (Bld) [#/Vol]Ordere d By: Pb León on 11-24-2023 RBC (Bld) [#/Vol] 4.84 10*6/uL 4.6-6.2 [facility] Serum or plasma calcium diane urement (mass/volume)Ordered By: Pb León on 11-24-2023 Calcium [Mass/Vol] 9.4 mg/dL 8.5-10.1 [facility] Serum or plasma creatinine m easurement (mass/volume)Ordered By: Pb León on 11-24-2023 Creatinine [Mass/Vol] 0.78 mg/dL 0.70-1.30 [facility] Comment on above: The validity of the calculated GFR & GFRAA in patients over 70 years has not been determined. Clinical correlation is essential. Serum or plasma urea nitroge n measurement (mass/volume)Ordered By: Pb León on 11-24-2023 Urea nitrogen [Mass/Vol] 17 mg/dL 7-18 [facility] Thin prep Papanicolaou smear with manual screeningOrdered By: Pb León on 11-24-2023 Thin prep Papanicolaou smear with manual screening 3 5-15 [facility] Urine phencyclidine (PCP) de tectionOrdered By: Pb León on 11-24-2023 Phencyclidine Ql (U) Negative < 25 ng/mL [facility] XR TIBIA/FIBULA 2 VIEWS RIG Ton 11-17-2023 XR TIBIA/FIBULA 2 VIEWS RIGHT Normal [facility] [place] XR TIBIA/FIBULA 2 VIEWS RIG Ton 11-10-2023 XR TIBIA/FIBULA 2 VIEWS RIGHT Normal [facility] [place] Sha 08-26-2023 [facility] Telephone (RADHA) TALIA RUBY ([id number]) 1980 M T Date Time Provider Department 08/26/23 KING MATUTE During your visit today, we recorded the following information about you: Rossy Bains 08/26/2023 9:02 AM Signed Received visit summary for mental health issues, positive covid test and urine tox screen results (neg) from [facility]. Placed in provider's inbox for review. Positive covid result entered into pt chart. Route to [place] scanning. Allergies As of Date: 08/26/2023 Noted Allergy Reaction ACETAMINOPHEN 04/14/2017 6 - Diarrhea ARIPIPRAZOLE 04/14/2017 14 - Other: See Comments CHLORPHENIRAMINE 04/14/2017 6 - Diarrhea DEXTROMETHORPHAN 04/14/2017 6 - Diarrhea GUAIFENESIN 04/14/2017 6 - Diarrhea HALDOL (HALOPERIDOL) 10/16/2010 1 - Mental Status Change Comments: Mind goes blank METFORMIN 09/13/2016 5 - Intolerance Comments: GI upset and abdominal pain with XR formulation, metallic taste RISPERDAL (RISPERIDONE) 10/16/2010 13 - Dystonia Date Reviewed: 03/07/2022 Reviewed by: Rossy Bains - Fully Assessed Reason for Visit: Received Outside Medical Records [[id number]] Cmt: [facility] ED 08/25/23 Order(s):EXPEDITED COVID + FLU A/B BY PCR [[id number]] Order #: [id number] Prescriptions as of 08/26/2023 - blood sugar diagnostic (BLOOD GLUCOSE TEST) test strip Test blood sugar(s) two (2) times daily. Dx: Other DM Code E11.9. Insulin: No - Lancets lancets Test blood sugar(s) two (2) times daily. Dx: Other DM Code E11.9. Insulin: No. - alcohol swabs (ALCOHOL PADS) Use as needed two (2) times daily to test blood glucose. - CPAP/BIPAP/OTHER Type .CPAPSettings into a note to see current settings/supplies/DME information. - blood sugar diagnostic (ONETOUCH VERIO TEST STRIPS) test strip Test blood sugar(s) 2 times daily. Dx: Type 2 DM - Controlled E11.9 Insulin: No - Blood-Glucose Sensor (FREESTYLE LAYA 3 SENSOR) fernando Apply new sensor every fourteen (14) days to upper arm. - SITagliptin phosphate (JANUVIA) 100 mg tablet Take 1 tablet by mouth once daily. - cholecalciferol, Vitamin D3, (VITAMIN D3) 1,250 mcg (50,000 unit) cap capsule Take 1 capsule by mouth one time a week. - meloxicam (MOBIC) 15 mg tablet Take 1 tablet by mouth once daily. - simvastatin (ZOCOR) 40 mg tablet Take 1 tablet by mouth daily at bedtime. for cholesterol - divalproex DR (DEPAKOTE) 500 mg EC tablet Take 1 tablet by mouth every morning AND 2 tablets daily at bedtime. - levothyroxine (SYNTHROID) 50 mcg tablet take 1 tablet by mouth once daily ON AN EMPTY STOMACH - CPAP/BIPAP/OTHER Type .CPAPSettings into a note to see current settings/supplies/DME information. - glimepiride (AMARYL) 4 mg tablet take 1 tablet by mouth once daily with breakfast - prazosin (MINIPRESS) 1 mg cap - atomoxetine HCl (STRATTERA ORAL) Take by mouth. - cetirizine (ZYRTEC) 10 mg tablet Take 1 tablet by mouth once daily. - cyclobenzaprine (FLEXERIL) 10 mg tablet Take 1 tablet by mouth three times daily as needed. - montelukast (SINGULAIR) 10 mg tablet Take 1 tablet by mouth daily at bedtime. - Blood Pressure Kit-Extra Large kit Check blood pressure weekly and as needed, - multivitamin tablet Take 1 tablet by mouth once daily. - lancets (ONE TOUCH DELICA) 33 gauge misc Test blood sugar(s) 2 daily. Dx: Type 2 DM - Controlled E11.9 Insulin: No - dextran 70-hypromellose (ARTIFICIAL TEARS) dpet Use 1 Drop in both eyes four times daily. - TRUE METRIX GLUCOSE METER mis as directed. - ziprasidone (GEODON) 20 mg capsule Take 20 mg by mouth once daily. - acetaminophen (TYLENOL) 325 mg tablet Take 2 tablets by mouth every 6 hours as needed. - ziprasidone (GEODON) 80 mg capsule Take 80 mg by mouth once daily. 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] 11/27/2017 Osteomyelitis (HCC) [M86.9] 11/27/2017 2017 Osteomyelitis of right tibia (HCC) [M86.9] 11/26/2017 02/10/2018 Vitamin D insufficiency [E55.9] 12/01/2017 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*12/30/2017 Tobacco use [Z72.0] 12/30/2017 Vitamin D deficiency [E55.9] 12/30/2017 08/07/2020 Osteomyelitis of right tibia (HCC) [M86.9] 02/10/2018 11/13/2018 Rosacea [L71.9] 04/27/2018 Schizophrenia (HCC) [F20.9] MAXIMO treated with BiPAP [G47.33] 12/18/2016 Encounter Status:Closed by ROSSY BAINS on 08[facility]26/[facility] TALIA RUBY ([id number]) 1980 [address] [facility] Date Time Provider Department 08/26/23 KING MATUTE During your visit today, we recorded the following information about you: Jeremy Barber LPN 08/26/2023 11:06 AM Signed Received from [facility]. Placed in provider's inbox for review. Route to ND for scanning Allergies As of Date: 08/26/2023 Noted Allergy Reaction ACETAMINOPHEN 04/14/2017 6 - Diarrhea ARIPIPRAZOLE 04/14/2017 14 - Other: See Comments CHLORPHENIRAMINE 04/14/2017 6 - Diarrhea DEXTROMETHORPHAN 04/14/2017 6 - Diarrhea GUAIFENESIN 04/14/2017 6 - Diarrhea HALDOL (HALOPERIDOL) 10/16/2010 1 - Mental Status Change Comments: Mind goes blank METFORMIN 09/13/2016 5 - Intolerance Comments: GI upset and abdominal pain with XR formulation, metallic taste RISPERDAL (RISPERIDONE) 10/16/2010 13 - Dystonia Date Reviewed: 03/07/2022 Reviewed by: Rossy Bains - Fully Assessed Reason for Visit: Received Outside Medical Records [[id number]] Cmt: [facility] H AND P ER addendum Prescriptions as of 08/26/2023 - blood sugar diagnostic (BLOOD GLUCOSE TEST) test strip Test blood sugar(s) two (2) times daily. Dx: Other DM Code E11.9. Insulin: No - Lancets lancets Test blood sugar(s) two (2) times daily. Dx: Other DM Code E11.9. Insulin: No. - alcohol swabs (ALCOHOL PADS) Use as needed two (2) times daily to test blood glucose. - CPAP/BIPAP/OTHER Type .CPAPSettings into a note to see current settings/supplies/DME information. - blood sugar diagnostic (ONETOUCH VERIO TEST STRIPS) test strip Test blood sugar(s) 2 times daily. Dx: Type 2 DM - Controlled E11.9 Insulin: No - Blood-Glucose Sensor (FREESTYLE LAYA 3 SENSOR) fernando Apply new sensor every fourteen (14) days to upper arm. - SITagliptin phosphate (JANUVIA) 100 mg tablet Take 1 tablet by mouth once daily. - cholecalciferol, Vitamin D3, (VITAMIN D3) 1,250 mcg (50,000 unit) cap capsule Take 1 capsule by mouth one time a week. - meloxicam (MOBIC) 15 mg tablet Take 1 tablet by mouth once daily. - simvastatin (ZOCOR) 40 mg tablet Take 1 tablet by mouth daily at bedtime. for cholesterol - divalproex DR (DEPAKOTE) 500 mg EC tablet Take 1 tablet by mouth every morning AND 2 tablets daily at bedtime. - levothyroxine (SYNTHROID) 50 mcg tablet take 1 tablet by mouth once daily ON AN EMPTY STOMACH - CPAP/BIPAP/OTHER Type .CPAPSettings into a note to see current settings/supplies/DME information. - glimepiride (AMARYL) 4 mg tablet take 1 tablet by mouth once daily with breakfast - prazosin (MINIPRESS) 1 mg cap - atomoxetine HCl (STRATTERA ORAL) Take by mouth. - cetirizine (ZYRTEC) 10 mg tablet Take 1 tablet by mouth once daily. - cyclobenzaprine (FLEXERIL) 10 mg tablet Take 1 tablet by mouth three times daily as needed. - montelukast (SINGULAIR) 10 mg tablet Take 1 tablet by mouth daily at bedtime. - Blood Pressure Kit-Extra Large kit Check blood pressure weekly and as needed, - multivitamin tablet Take 1 tablet by mouth once daily. - lancets (ONE TOUCH DELICA) 33 gauge misc Test blood sugar(s) 2 daily. Dx: Type 2 DM - Controlled E11.9 Insulin: No - dextran 70-hypromellose (ARTIFICIAL TEARS) dpet Use 1 Drop in both eyes four times daily. - TRUE METRIX GLUCOSE METER misc as directed. - ziprasidone (GEODON) 20 mg capsule Take 20 mg by mouth once daily. - acetaminophen (TYLENOL) 325 mg tablet Take 2 tablets by mouth every 6 hours as needed. - ziprasidone (GEODON) 80 mg capsule Take 80 mg by mouth once daily. 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] 11/27/2017 Osteomyelitis (HCC) [M86.9] 11/27/2017 2017 Osteomyelitis of right tibia (HCC) [M86.9] 11/26/2017 02/10/2018 Vitamin D insufficiency [E55.9] 12/01/2017 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*12/30/2017 Tobacco use [Z72.0] 12/30/2017 Vitamin D deficiency [E55.9] 12/30/2017 08/07/2020 Osteomyelitis of right tibia (HCC) [M86.9] 02/10/2018 11/13/2018 Rosacea [L71.9] 04/27/2018 Schizophrenia (HCC) [F20.9] MAXIMO treated with BiPAP [G47.33] 12/18/2016 Encounter Status:Closed by JEREMY BARBER on 08/26/23 [facility] Glucose Glucometer (BldC) [M ass/Vol]Ordered By: Pawan Cardenas on 08-26-2023 Glucose [Mass/Vol] 214 mg/dL 74-106 [facility] Comment on above: MANAGEMENT OF PATIEN T CARE PER NURSING PROTOCOL Absolute lymphocyte countOrd ered By: Noah Vuong on 08-25-2023 Lymphocytes Auto (Unsp spec) [#/Vol] 1.64 10*3/uL 0.83-4.51 [facility] Basophil percentageOrdered B y: Noah Vuong on 08-25-2023 Basophils/100 WBC (Bld) 0.3 % 0-1 [facility] Chloride [Moles/Vol] 99 mmol/L 98-107 [facility] Eosinophils/100 WBC (Bld) 0.9 % 0-5 [facility] Glucose [Mass/Vol] 171 mg/dL 74-106 [facility] Comment on above: Fasting Glucose resu lt greater than or equal to 126 mg/dL suggests DIABETES MELLITUS per A.D.A. criteria. Neutrophils (Bld) [#/Vol] 6.7 10*3/uL 2.0-7.7 [facility] Neutrophils/100 WBC (Bld) 73.0 % 47-70 [facility] Potassium [Moles/Vol] 3.8 mmol/L 3.5-5.1 [facility] Sodium [Moles/Vol] 135 mmol/L 136-145 [facility] WBC (Bld) [#/Vol] 9.1 10*3/uL 4.4-11.0 [facility] Blood erythrocytes count (nu mber/volume)Ordered By: Noah Vuong on 08-25-2023 RBC (Bld) [#/Vol] 4.66 10*6/uL 4.6-6.2 [facility] Blood hemoglobin measurement (mass/volume)Ordered By: Noah Vuong on 08-25-2023 Hemoglobin (Bld) [Mass/Vol] 13.1 g/dL 13.0-16.5 [facility] Blood lymphocytes/100 leukoc ytesOrdered By: Noah Vuong on 08-25-2023 Lymphocytes/100 WBC (Bld) 18.0 % 19-41 [facility] Blood monocytes/100 leukocyt esOrdered By: Noah Vuong on 08-25-2023 Monocytes/100 WBC (Bld) 7.3 % 0-[address] [facility] Blood platelet mean volumeOr dered By: Noah Vuong on 08-25-2023 Platelet mean volume (Bld) [Entitic vol] 9.6 fL 6.2-12.0 [facility] Determination of erythrocyte mean corpuscular volume (MCV)Ordered By: Noah Vuong on 08-25-2023 MCV (RBC) [Entitic vol] 88.8 fL 80-[address] [facility] Hematocrit Auto (Bld) [Volum e fraction]Ordered By: Noah Vuong on 08-25-2023 Hematocrit (Bld) [Volume fraction] 41.4 % 40-54 [facility] Laboratory - Chemistry and C hemistry - challengeOrdered By: Noah Vuong on 08-25-2023 CO2 [Moles/Vol] 34.0 mmol/L 21.0-32.0 [facility] Urea nitrogen/Creatinine [Mass ratio] 25.0 mg/mg 10-20 [facility] Laboratory - Drug toxicology Ordered By: Louis Colon on 08-25-2023 Amphetamines Ql (U) Negative <1000 ng/mL [facility] Benzodiazepines Ql (U) Negative < 200 ng/mL [facility] Cannabinoids Screen Ql (U) Negative < 50 ng/mL [facility] Cocaine Ql (U) Negative < 300 ng/mL [facility] Opiates Ql (U) Negative < 300 ng/mL [facility] Laboratory - Drug toxicology Ordered By: Noah Vuong on 08-25-2023 Amphetamines Ql (U) Negative <1000 ng/mL [facility] Benzodiazepines Ql (U) Positive < 200 ng/mL [facility] Cannabinoids Screen Ql (U) Negative < 50 ng/mL [facility] Cocaine Ql (U) Negative < 300 ng/mL [facility] Opiates Ql (U) Negative < 300 ng/mL [facility] Laboratory - Hematology and Cell countsOrdered By: Noah Vuong on 08-25-2023 Erythrocyte distribution width (RBC) [Entitic vol] 45.6 fL 35.1-43.9 [facility] Erythrocyte distribution width (RBC) [Ratio] 14.1 % 11.6-14.6 [facility] Immature granulocytes/100 WBC (Bld) 0.500 % 0.0-0.9 [facility] Comment on above: IG% - Immature Granu locytes (promyelocytes, myelocytes and metamyelocytes) > 1% indicates that a LEFT SHIFT is Present. MCH (RBC) [Entitic mass] 28.1 pg 27.0-32.0 [facility] Nucleated RBC/100 WBC (Bld) [Ratio] 0 % 0-5 [facility] Laboratory - Microbiology an d Antimicrobial susceptibilityOrdered By: Louis Colon on 08-25-2023 SARS-CoV-2 (COVID-19) RNA HIRAM+probe Ql (Unsp spec) SARS-CoV-2 (COVID 19) [facility] MCHC Auto (RBC) [Mass/Vol]Or dered By: Noah Vuong on 08-25-2023 MCHC (RBC) [Mass/Vol] 31.6 g/dL 32-36 [facility] No Panel InformationOrdered By: Luois Colon on 08-25-2023 Ethyl Alcohol Level < 3.0 mg/dL [facility] Comment on above: The serum:whole bloo d ethanol ratio is approximately 1.14and varies slightly with hematocrit. Medical Alcohol reference interval and critical value innon-tolerant individuals; 50 - 100 Impairment 100 Intoxication 100 - 250 Severe Poisoning 250 - 400 Deep/possible fatal coma MDMA (Ecstasy) Screen Negative < 500 ng/mL [facility] Urine Barbiturates Screen Negative < 200 ng/mL [facility] Urine Drug Screen Comment [facility] Comment on above: CONFIRMATORY TESTING FOR ALL POSITIVE URINE DRUG SCREENRESULTS WILL ONLY BE SENT OUT UPON PHYSICIAN ORDER. VISTA Urine Drug Screen methods provide only preliminaryanalytical test results. A more specific alternate chemicalmethod must be used in order to obtain a confirmedanalytical result. Gas chromatography/mass spectrometery(GC/MS) is the preferred confirmatory method. Clinicalconsideration and professional judgement should be appliedto any drug of abuse test result, particularly whenpreliminary positive results are used. URINE TCA TESTING MUST BE ORDERED SEPARATELY. USE TESTMNEMONIC: UTCA Urine Methadone Screen Negative < 300 ng/mL [facility] No Panel InformationOrdered By: Noah Vuong on 08-25-2023 MDMA (Ecstasy) Screen Negative < 500 ng/mL [facility] Urine Barbiturates Screen Negative < 200 ng/mL [facility] Urine Drug Screen Comment [facility] Comment on above: CONFIRMATORY TESTING FOR ALL POSITIVE URINE DRUG SCREENRESULTS WILL ONLY BE SENT OUT UPON PHYSICIAN ORDER. VISTA Urine Drug Screen methods provide only preliminaryanalytical test results. A more specific alternate chemicalmethod must be used in order to obtain a confirmedanalytical result. Gas chromatography/mass spectrometery(GC/MS) is the preferred confirmatory method. Clinicalconsideration and professional judgement should be appliedto any drug of abuse test result, particularly whenpreliminary positive results are used. URINE TCA TESTING MUST BE ORDERED SEPARATELY. USE TESTMNEMONIC: UTCA Urine Methadone Screen Negative < 300 ng/mL [facility] Estimated Creatinine Clearance Calc 102.32 ml/min [facility] Estimated GFR (MDRD) Amer 128 mL/min >60 [facility] Comment on above: GFR Calc Estimated GFR (MDRD) Non-Af Amer 106 mL/min >60 [facility] Comment on above: Non- GFR Calc Ethyl Alcohol Level < 3.0 mg/dL [facility] Comment on above: The serum:whole bloo d ethanol ratio is approximately 1.14and varies slightly with hematocrit. Medical Alcohol reference interval and critical value innon-tolerant individuals; 50 - 100 Impairment 100 Intoxication 100 - 250 Severe Poisoning 250 - 400 Deep/possible fatal coma Platelets bldOrdered By: Eugenia Vuong on 08-25-2023 Platelets (Bld) [#/Vol] 227 10*3/uL 150-450 [facility] SARS-CoV-2 (COVID-19) Ag IA. rapid Ql (Resp)Ordered By: Noah Vuong on 08-25-2023 SARS-CoV-2 Antigen (Rapid) SARS-CoV-2 (COVID 19) [facility] Serum or plasma calcium diane urement (mass/volume)Ordered By: Noah Vuong on 08-25-2023 Calcium [Mass/Vol] 9.1 mg/dL 8.5-10.1 [facility] Serum or plasma creatinine m easurement (mass/volume)Ordered By: Noah Vuong on 08-25-2023 Creatinine [Mass/Vol] 0.84 mg/dL 0.70-1.30 [facility] Comment on above: The validity of the calculated GFR & GFRAA in patients over 70 years has not been determined. Clinical correlation is essential. Serum or plasma urea nitroge n measurement (mass/volume)Ordered By: Noah Vuong on 08-25-2023 Urea nitrogen [Mass/Vol] 21 mg/dL 7-18 [facility] Thin prep Papanicolaou smear with manual screeningOrdered By: Noah Vuong on 08-25-2023 Thin prep Papanicolaou smear with manual screening 2 5-15 [facility] Urine phencyclidine (PCP) de tectionOrdered By: Louis Colon on 08-25-2023 Phencyclidine Ql (U) Negative < 25 ng/mL [facility] Urine phencyclidine (PCP) de tectionOrdered By: Noah Vuong on 08-25-2023 Phencyclidine Ql (U) Negative < 25 ng/mL [facility] UFENTSon 08-15-2023 Fentanyl (u) Negative Normal Negative [facility] ([place]) Comment on above: Result Comment: Test ing has been performed FOR MEDICAL PURPOSES ONLY. Performed By: #### U ADIP, UDRUG ####[place] [id number]#### UFENTS, UOXYS ####[place] [address] UOXYSon 08-15-2023 Oxycodone (u) Negative Normal Negative [facility] ([place]) Comment on above: Result Comment: Test ing has been performed FOR MEDICAL PURPOSES ONLY. Performed By: #### U ADIP, UDRUG ####[place] [id number] [place] [id number]#### UFENTS, UOXYS ####[place] [address] .Auto Diffon 08-14-2023 Basophil, Absolute 0.1 10 3/mcL Normal 0.0-0.2 [facility] ([place]) Comment on above: Performed By: #### C MP, GFR, CK, ACETA, MDW, ANEU, LUPE, ADIFF, ALC, CBC ####[address] [place], [place] [address] Basophils/100 WBC (Bld) 0.6 % Normal 0.0-2.5 [facility] ([place]) Comment on above: Performed By: #### C MP, GFR, CK, ACETA, MDW, ANEU, LUPE, ADIFF, ALC, CBC ####[address] [place], [place] [address] Eosinophil, Absolute 0.2 10 3/mcL Normal 0.0-0.4 [facility] ([place]) Comment on above: Performed By: #### C MP, GFR, CK, ACETA, MDW, ANEU, LUPE, ADIFF, ALC, CBC ####[address] [place], [place] [address] Eosinophils/100 WBC (Bld) 2.0 % Normal 0.0-7.0 [facility] ([place]) Comment on above: Performed By: #### C MP, GFR, CK, ACETA, MDW, ANEU, LUPE, ADIFF, ALC, CBC ####[address] [place], [place] [address] Lymphocyte, Absolute 2.2 10 3/mcL Normal 0.8-3.9 [facility] ([place]) Comment on above: Performed By: #### C MP, GFR, CK, ACETA, MDW, ANEU, LUPE, ADIFF, ALC, CBC ####[address] [place], [place] [address] Lymphocytes/100 WBC (Bld) 24.6 % Normal 10.0-50.0 [facility] ([place]) Comment on above: Performed By: #### C MP, GFR, CK, ACETA, MDW, ANEU, LUPE, ADIFF, ALC, CBC ####[address] [place], [place] [address] Monocyte, Absolute 0.6 10 3/mcL Normal 0.2-1.0 [facility] ([place]) Comment on above: Performed By: #### C MP, GFR, CK, ACETA, MDW, ANEU, LUPE, ADIFF, ALC, CBC ####[address] [place], [place] [address] Monocytes/100 WBC (Bld) 6.4 % Normal 1.7-13.0 A [facility] ([place]) Comment on above: Performed By: #### C MP, GFR, CK, ACETA, MDW, ANEU, LUPE, ADIFF, ALC, CBC ####[address] [place], [place] [address] Neutrophils/100 WBC (Bld) 66.4 % Normal 37.0-80.0 [facility] ([place]) Comment on above: Performed By: #### C MP, GFR, CK, ACETA, MDW, ANEU, LUPE, ADIFF, ALC, CBC ####[address] [place], [place] [address] .GFRon 08-14-2023 GFR 100 ml/min/1.73sqm Normal [facility] ([place]) Comment on above: Result Comment: GFR Population mean for , Non- Americans Ages 20-29 = 116 mL/min/1.73 sq.m. Ages 30-39 = 107 mL/min/1.73 sq.m. Ages 40-49 = 99 mL/min/1.73 sq.m. Ages 50-59 = 93 mL/min/1.73 sq.m. Ages 60-69 = 85 mL/min/1.73 sq.m. Ages 70+ = 75 mL/min/1.73 sq.m.Chronic Kidney Disease: Less than 60 mL/min/1.73 square metersEnd Stage Renal Disease: Less than 15 mL/min/1.73 square meters Performed By: #### C MP, GFR, CK, ACETA, MDW, ANEU, LUPE, ADIFF, ALC, CBC ####[address] [place], [place] [address] GFR Non- 83 ml/min/1.73sqm Normal [facility] ([place]) Comment on above: Result Comment: GFR Population mean for , Non- Americans Ages 20-29 = 116 mL/min/1.73 sq.m. Ages 30-39 = 107 mL/min/1.73 sq.m. Ages 40-49 = 99 mL/min/1.73 sq.m. Ages 50-59 = 93 mL/min/1.73 sq.m. Ages 60-69 = 85 mL/min/1.73 sq.m. Ages 70+ = 75 mL/min/1.73 sq.m.Chronic Kidney Disease: Less than 60 mL/min/1.73 square metersEnd Stage Renal Disease: Less than 15 mL/min/1.73 square meters Performed By: #### C MP, GFR, CK, ACETA, MDW, ANEU, LUPE, ADIFF, ALC, CBC ####[address] [place], [place] [address] .MDWon 08-14-2023 Monocyte Distribution Width 18.68 Normal 0.00-20.00 [facility] ([place]) Comment on above: Result Comment: For ED adult patients suspected of sepsis, MDW<=20.0 does not rule out sepsis or risk of sepsis Performed By: #### C MP, GFR, CK, ACETA, MDW, ANEU, LUPE, ADIFF, ALC, CBC ####[address] [place], [place] [address] .NEUABSon 08-14-2023 Neutrophil, Absolute 5.9 10 3/mcL Normal 2.9-6.2 [facility] ([place]) Comment on above: Performed By: #### C MP, GFR, CK, ACETA, MDW, ANEU, LUPE, ADIFF, ALC, CBC ####[address] [place], [place] [address] ACETAon 08-14-2023 Acetaminophen Lvl <0.0 Low 10.0-30.0 [facility] ([place]) Comment on above: Performed By: #### C MP, GFR, CK, ACETA, MDW, ANEU, LUPE, ADIFF, ALC, CBC ####[address] [place], [place] [address] Reinaldo 08-14-2023 Ethanol Level 4 mg/dL High 0-3 [facility] ([place]) Comment on above: Performed By: #### C MP, GFR, CK, ACETA, MDW, ANEU, LUPE, ADIFF, ALC, CBC ####[address] [place], [place] [address] CBCon 08-14-2023 Erythrocyte distribution width (RBC) [Ratio] 15.7 % High 11.5-14.5 [facility] ([place]) Comment on above: Performed By: #### C MP, GFR, CK, ACETA, MDW, ANEU, LUPE, ADIFF, ALC, CBC ####[address] [place], [place] [address] Hematocrit (Bld) [Volume fraction] 38.1 % Low 42.0-52.0 [facility] ([place]) Comment on above: Performed By: #### C MP, GFR, CK, ACETA, MDW, ANEU, LUPE, ADIFF, ALC, CBC ####[address] [place], [place] [address] Hgb 12.5 G/dL Low 14.0-18.0 [facility] ([place]) Comment on above: Performed By: #### C MP, GFR, CK, ACETA, MDW, ANEU, LUPE, ADIFF, ALC, CBC ####[address] [place], [place] [address] MCH (RBC) [Entitic mass] 28.8 pg Normal 27.0-31.2 [facility] ([place]) Comment on above: Performed By: #### C MP, GFR, CK, ACETA, MDW, ANEU, LUPE, ADIFF, ALC, CBC ####[address] [place], [place] [address] MCHC 32.8 G/dL Normal 31.8-35.4 [facility] ([place]) Comment on above: Performed By: #### C MP, GFR, CK, ACETA, MDW, ANEU, LUPE, ADIFF, ALC, CBC ####[address] [place], [place] [address] MCV (RBC) [Entitic vol] 87.6 fL Normal 80.0-94.0 A [facility] ([place]) Comment on above: Performed By: #### C MP, GFR, CK, ACETA, MDW, ANEU, LUPE, ADIFF, ALC, CBC ####[address] [place], [place] [address] Platelet 226 10 3/mcL Normal 130-400 [facility] ([place]) Comment on above: Performed By: #### C MP, GFR, CK, ACETA, MDW, ANEU, LUPE, ADIFF, ALC, CBC ####[address] [place], [place] [address] Platelet mean volume (Bld) [Entitic vol] 7.7 fL Normal 7.4-10.4 [facility] ([place]) Comment on above: Performed By: #### C MP, GFR, CK, ACETA, MDW, ANEU, LUPE, ADIFF, ALC, CBC ####[address] [place], [place] [address] RBC 4.34 10 6/mcL Normal 4.04-6.13 [facility] ([place]) Comment on above: Performed By: #### C MP, GFR, CK, ACETA, MDW, ANEU, LUPE, ADIFF, ALC, CBC ####[address] [place], [place] [address] WBC 8.9 10 3/mcL Normal 4.6-10.8 [facility] ([place]) Comment on above: Performed By: #### C MP, GFR, CK, ACETA, MDW, ANEU, LUPE, ADIFF, ALC, CBC ####[address] [place], [place] [address] CKon 08-14-2023 CK [Catalytic activity/Vol] 199 U/L Normal 39-308 [facility] ([place]) Comment on above: Performed By: #### C MP, GFR, CK, ACETA, MDW, ANEU, LUPE, ADIFF, ALC, CBC ####[address] [place], [place] [address] CMPon 08-14-2023 Albumin Level 3.2 G/dL Low 3.5-5.0 [facility] ([place]) Comment on above: Performed By: #### C MP, GFR, CK, ACETA, MDW, ANEU, LUPE, ADIFF, ALC, CBC ####[place] [address] [place], [place] [address] Albumin/Globulin [Mass ratio] 1.0 {ratio} Low 1.1-2.5 [facility] ([place]) Comment on above: Performed By: #### C MP, GFR, CK, ACETA, MDW, ANEU, LUPE, ADIFF, ALC, CBC ####[place] [address] [place], [place] [address] ALP [Catalytic activity/Vol] 88 U/L Normal 40-135 [facility] ([place]) Comment on above: Performed By: #### C MP, GFR, CK, ACETA, MDW, ANEU, LUPE, ADIFF, ALC, CBC ####[place] [address] [place], [place] [address] ALT [Catalytic activity/Vol] 31 U/L Normal 16-63 [facility] ([place]) Comment on above: Performed By: #### C MP, GFR, CK, ACETA, MDW, ANEU, LUPE, ADIFF, ALC, CBC ####[place] [address] [place], [place] [address] AST [Catalytic activity/Vol] 21 U/L Normal 10-40 [facility] ([place]) Comment on above: Performed By: #### C MP, GFR, CK, ACETA, MDW, ANEU, LUPE, ADIFF, ALC, CBC ####[facility] [place], [place] [address] Bili Total 0.4 mg/dL Normal 0.2-1.0 [facility] ([place]) Comment on above: Result Comment: Use of this assay is not recommended for patients undergoing treatment with eltrombopag due to the potential for falsely elevated results. Performed By: #### C MP, GFR, CK, ACETA, MDW, ANEU, LUPE, ADIFF, ALC, CBC ####[facility] [place], [place] [address] BUN/Creatinine Ratio 18 ratio Normal 7-27 [facility] ([place]) Comment on above: Performed By: #### C MP, GFR, CK, ACETA, MDW, ANEU, LUPE, ADIFF, ALC, CBC ####Stephanie [address] [place], [place] [address] Calcium [Mass/Vol] 9.6 mg/dL Normal 8.4-10.2 [facility] ([place]) Comment on above: Performed By: #### C MP, GFR, CK, ACETA, MDW, ANEU, LUPE, ADIFF, ALC, CBC ####Stephanie [address] [place], [place] [address] Chloride [Moles/Vol] 100 mmol/L Normal 98-107 [facility] ([place]) Comment on above: Performed By: #### C MP, GFR, CK, ACETA, MDW, ANEU, LUPE, ADIFF, ALC, CBC ####[place] [address] [place], [place] [address] CO2 [Moles/Vol] 32 mmol/L High 22-29 [facility] ([place]) Comment on above: Performed By: #### C MP, GFR, CK, ACETA, MDW, ANEU, LUPE, ADIFF, ALC, CBC ####[place] [address] [place], [place] [address] Creatinine [Mass/Vol] 0.99 mg/dL Normal 0.70-1.30 [facility] ([place]) Comment on above: Performed By: #### C MP, GFR, CK, ACETA, MDW, ANEU, LUPE, ADIFF, ALC, CBC ####[facility] [place], [place] [address] Electrolyte Balance 11.0 mEq/L Normal 4.0-15.0 [facility] ([place]) Comment on above: Performed By: #### C MP, GFR, CK, ACETA, MDW, ANEU, LUPE, ADIFF, ALC, CBC ####[facility] [place], [place] [address] Globulin 3.3 G/dL Normal [facility] ([place]) Comment on above: Performed By: #### C MP, GFR, CK, ACETA, MDW, ANEU, LUPE, ADIFF, ALC, CBC ####Stephanie [address] [place], [place] [address] Glucose [Mass/Vol] 182 mg/dL High 70-105 [facility] ([place]) Comment on above: Performed By: #### C MP, GFR, CK, ACETA, MDW, ANEU, LUPE, ADIFF, ALC, CBC ####Stephanie [address] [place], [place] [address] Potassium [Moles/Vol] 3.9 mmol/L Normal 3.5-5.1 [facility] ([place]) Comment on above: Performed By: #### C MP, GFR, CK, ACETA, MDW, ANEU, LUPE, ADIFF, ALC, CBC ####Ste[address]ie [address] [place], [place] [address] Sodium [Moles/Vol] 143 mmol/L Normal 136-145 [facility]) Comment on above: Performed By: #### C MP, GFR, CK, ACETA, MDW, ANEU, LUPE, ADIFF, ALC, CBC ####Ste[address]ie [address] [place], [place] [address] Total Protein 6.5 G/dL Normal 6.4-8.2 [facility] ([place]) Comment on above: Performed By: #### C MP, GFR, CK, ACETA, MDW, ANEU, LUPE, ADIFF, ALC, CBC ####[address] [place], [place] [address] Urea nitrogen [Mass/Vol] 18 mg/dL Normal 7-18 [facility] ([place]) Comment on above: Performed By: #### C MP, GFR, CK, ACETA, MDW, ANEU, LUPE, ADIFF, ALC, CBC ####Stephanie [address] [place], [place] [address] [id number] 08-14-2023 SARS-CoV-2 (COVID-19) RNA HIRAM+probe Ql (Unsp spec) Negative Normal Negative [facility] ([place]) Comment on above: Performed By: #### F CEDRIC COVD19 ####[address] [address] SARS-CoV-2 (COVID-19) RNA HIRAM+probe Ql (Unsp spec) Normal [facility] ([place]) Comment on above: Result Comment: Nega tive results do not preclude SARS-CoV-2 infection and should not be used as the sole basis for patient management decisions. Negative results must be combined with clinical observations, patient history, and epidemiological information.There is a risk of false negative values resulting from improperly collected, transported, or handled specimens.There is a risk of false negative values due to the presence of sequence variants in the pathogen targets of the assay, procedural errors, amplification inhibitors in specimens, or inadequate numbers of organisms for amplification.ABDULLAHI SARS-CoV-2 Assay is a Real-Time reverse-transcriptase polymerase chain reaction (RT-PCR) based qualitative in vitro diagnostic test intended for the qualitative detection of nucleic acid from the SARS-CoV-2 in nasopharyngeal swab specimens collected from individuals suspected of COVID-19 by their healthcare provider. Testing is limited to laboratories certified under the Clinical Laboratory Improvement Amendments of 1988 (CLIA), 42 U.S.C. ?263a, to perform moderate and high complexity tests.COVID-19 Int Performed By: #### F LURSV, COVD19 ####[place] [address] [place], [place] [address] FLURSVon 08-14-2023 Flu A PCR (AO) Negative Normal Negative [facility] ([place]) Comment on above: Result Comment: Posi tive Results: Positive Flu A/B or RSV for by PCR. Positive test results do not rule out bacterial infection or co-infection with other pathogens. Test results should be interpreted in conjunction with other laboratory and clinical data.Negative Results: Negative for by PCR. Negative test results do not preclude influenza virus or RSV infection and should not be used as the sole basis for diagnosis, treatment, or other management decisions. There is a risk of false negative RSV results when at low concentration and in the presence of co-infection with high concentration of influenza A.Invalid Results: An Invalid result (INV) was obtained. The test was repeated with similar results. REPEAT COLLECTION AND TESTING IS RECOMMENDED. The [employer] Flu A/B & RSV Assay is a real-time polymerase chain reaction (PCR) based qualitative in vitro diagnostic test for the direct detection and differentiation of influenza A virus, influenza B virus, and respiratory syncytial virus (RSV) nucleic acid in nasopharyngeal swab (OCCUPATIONAL HEALTH PHYSIOTHERAPIST) specimens from patients with signs and symptoms of respiratory infection in conjunction with clinical and laboratory findings. The test is intended for use as an aid in the differential diagnosis of influenza A virus, influenza B virus, and RSV in humans and is not intended to detect influenza C. Performed By: #### F LUANNERSGenaro, COVD19 ####Stephanie [address] [place], [place] [address] Flu B PCR (AO) Negative Normal Negative [facility] ([place]) Comment on above: Result Comment: Posi tive Results: Positive Flu A/B or RSV for by PCR. Positive test results do not rule out bacterial infection or co-infection with other pathogens. Test results should be interpreted in conjunction with other laboratory and clinical data.Negative Results: Negative for by PCR. Negative test results do not preclude influenza virus or RSV infection and should not be used as the sole basis for diagnosis, treatment, or other management decisions. There is a risk of false negative RSV results when at low concentration and in the presence of co-infection with high concentration of influenza A.Invalid Results: An Invalid result (INV) was obtained. The test was repeated with similar results. REPEAT COLLECTION AND TESTING IS RECOMMENDED. The [employer] Flu A/B & RSV Assay is a real-time polymerase chain reaction (PCR) based qualitative in vitro diagnostic test for the direct detection and differentiation of influenza A virus, influenza B virus, and respiratory syncytial virus (RSV) nucleic acid in nasopharyngeal swab (OCCUPATIONAL HEALTH PHYSIOTHERAPIST) specimens from patients with signs and symptoms of respiratory infection in conjunction with clinical and laboratory findings. The test is intended for use as an aid in the differential diagnosis of influenza A virus, influenza B virus, and RSV in humans and is not intended to detect influenza C. Performed By: #### F CEDRIC, COVD19 ####Ste[address]ie [address] [place], [place] [address] RSV PCR (AO) Negative Normal Negative [facility] ([place]) Comment on above: Result Comment: Posi tive Results: Positive Flu A/B or RSV for by PCR. Positive test results do not rule out bacterial infection or co-infection with other pathogens. Test results should be interpreted in conjunction with other laboratory and clinical data.Negative Results: Negative for by PCR. Negative test results do not preclude influenza virus or RSV infection and should not be used as the sole basis for diagnosis, treatment, or other management decisions. There is a risk of false negative RSV results when at low concentration and in the presence of co-infection with high concentration of influenza A.Invalid Results: An Invalid result (INV) was obtained. The test was repeated with similar results. REPEAT COLLECTION AND TESTING IS RECOMMENDED. The [employer] Flu A/B & RSV Assay is a real-time polymerase chain reaction (PCR) based qualitative in vitro diagnostic test for the direct detection and differentiation of influenza A virus, influenza B virus, and respiratory syncytial virus (RSV) nucleic acid in nasopharyngeal swab (OCCUPATIONAL HEALTH PHYSIOTHERAPIST) specimens from patients with signs and symptoms of respiratory infection in conjunction with clinical and laboratory findings. The test is intended for use as an aid in the differential diagnosis of influenza A virus, influenza B virus, and RSV in humans and is not intended to detect influenza C. Performed By: #### F LURSV, COVD19 ####Stephanie [address] [place] [address] SALon 08-14-2023 Salicylate Level 1.4 mg/dL Low 2.8-20.0 [facility] ([place]) Comment on above: Performed By: #### C MP, GFR, CK, ACETA, MDW, ANEU, LUPE, ADIFF, ALC, CBC ####[address]ie [address] [place] [address] UDRUGon 08-14-2023 Amphetamine (u) Negative Normal Negative [facility] ([place]) Comment on above: Performed By: #### U ADIP, UDRUG ####[address] [place] [address]#### UFENTS, UOXYS ####[place] [address] Barbiturate (u) Negative Normal Negative [facility] ([place]) Comment on above: Performed By: #### U ADIP, UDRUG ####[address] [place] [address]#### UFENTS, UOXYS ####[place] [address] Benzodiazepine (u) Negative Normal Negative [facility] ([place]) Comment on above: Performed By: #### U ADIP, UDRUG ####[facility] [place] [address]#### UFENTS, UOXYS ####[facility] [place] [address] Cannabinoid (u) Positive Abnormal Negative [facility] ([place]) Comment on above: Performed By: #### U ADIP, UDRUG ####Stephanie [address] [place] [address]#### UFENTS, UOXYS ####[facility] [place] [address] Cocaine Ql (U) Negative Normal Negative [facility] ([place]) Comment on above: Performed By: #### U ADIP, UDRUG ####[address] [place] [address]#### UFENTS, UOXYS ####[facility] [place] [address] Methadone Ql (U) Negative Normal Negative [facility] ([place]) Comment on above: Performed By: #### U ADIP, UDRUG ####Stephanie [address] [place] [address]#### UFENTS, UOXYS ####[place] [address] Opiate (u) Negative Normal Negative [facility] ([place]) Comment on above: Performed By: #### U ADIP, UDRUG ####Stephanie [address] [place] [address]#### UFENTS, UOXYS ####[facility] [place] [address] PCP (u) Negative Normal Negative [facility] ([place]) Comment on above: Performed By: #### U ADIP, UDRUG ####Stephanie [address] [place] [address]#### UFENTS, UOXYS ####[facility] [place] [address] Urine Drugs screened: See Below Normal [facility] ([place]) Comment on above: Result Comment: This drug screen is a presumptive screening only.No confirmation will be performed unless requested.Drugs screened include: ThresholdAmphetamines/Methamphetamines 1,000 ng/mLBarbiturates 200 ng/mLBenzodiazepine metabolites 200 ng/mLCannabinoids (THC metabolites) 50 ng/mLCocaine 300 ng/mLOpiates 300 ng/mLMethadone 300 ng/mLPhencyclidine (PCP) 25 ng/mLTesting has been performed FOR MEDICAL PURPOSES ONLY. Performed By: #### U ADIP, UDRUG ####[address] [place] [address]#### UFENTS, UOXYS ####[address] [address] URINon 08-14-2023 Color (U) Dark yellow Normal [facility] ([place]) Comment on above: Performed By: #### U ADIP, UDRUG ####[place] [address]#### UFENTS, UOXYS ####[address] [address] Glucose (U) [Mass/Vol] 250 mg/dL Abnormal Negative [facility] ([place]) Comment on above: Performed By: #### U ADIP, UDRUG ####Stephanie [address] [address]#### UFENTS, UOXYS ####[address] [address] Ketones Ql (U) Trace Abnormal Negative [facility] ([place]) Comment on above: Performed By: #### U ADIP, UDRUG ####Stephanie [address] [place] [address]#### UFENTS, UOXYS ####[address] [address] Protein (U) [Mass/Vol] 100 mg/dL Abnormal Negative [facility] ([place]) Comment on above: Performed By: #### U ADIP, UDRUG ####Stephanie [address] [place] [address]#### UFENTS, UOXYS ####[facility] [place] [address] UA Appear Slightly Cloudy Abnormal Clear [facility] ([place]) Comment on above: Performed By: #### U ADIP, UDRUG ####[place] [address]#### UFENTS, UOXYS ####[facility] [place] [address] UA Blood Negative Normal Negative [facility] ([place]) Comment on above: Performed By: #### U ADIP, UDRUG ####[place] [address]#### UFENTS, UOXYS ####[facility] [place] [address] UA Leuk Est Negative Normal Negative [facility] ([place]) Comment on above: Performed By: #### U ADIP, UDRUG ####[place] [address]#### UFENTS, UOXYS ####[place] [address] UA Nitrite Negative Normal Negative [facility] ([place]) Comment on above: Performed By: #### U ADIP, UDRUG ####[place] [address]#### UFENTS, UOXYS ####[place] [address] UA pH 7.0 Normal 5.0 - 8.0 [facility] ([place]) Comment on above: Performed By: #### U ADIP, UDRUG ####[facility] [place] [address]#### UFENTS, UOXYS ####[facility] [place] [address] UA Spec Grav 1.025 Normal 1.015-1.02 5 [facility] ([place]) Comment on above: Performed By: #### U ADIP, UDRUG ####[facility] [place] [address]#### UFENTS, UOXYS ####[place] [address] [place] [address] UA Specimen Type Void Normal [facility] ([place]) Comment on above: Performed By: #### U ADIP, UDRUG ####[address] [place] [address]#### UFENTS, UOXYS ####[facility] [place] [address] UA Urobilinogen 1.0 E.U./dL Normal 0.2-1.0 [facility] ([place]) Comment on above: Performed By: #### U ADIP, UDRUG ####[address] [place] [address]#### UFENTS, UOXYS ####[place] [address] [place] [address] Urobilinogen (U) [Mass/Vol] Negative Normal Negative [facility] ([place]) Comment on above: Performed By: #### U ADIP, UDRUG ####[address] [place] [address]#### UFENTS, UOXYS ####[place] [address] XR SPINE LUMBOSACRAL MINIMUM 4 VIEWSon 08-14-2023 XR SPINE LUMBOSACRAL MINIMUM 4 VIEWS Normal [facility] ([place]) Sha 08-12-2023 [facility] Tele[facility] (RADHA) TALIA RUBY ([id number]) 1980 [facility] Date Time Provider Department 08/12/23 KING MATUTE During your visit today, we recorded the following information about you: Jeremy Barber LPN 08/12/2023 10:32 AM Signed Received 08/11/2023 from [facility]. Placed in provider's inbox for review. Route to [place] for scanning Allergies As of Date: 08/12/2023 Noted Allergy Reaction ACETAMINOPHEN 04/14/2017 6 - Diarrhea ARIPIPRAZOLE 04/14/2017 14 - Other: See Comments CHLORPHENIRAMINE 04/14/2017 6 - Diarrhea DEXTROMETHORPHAN 04/14/2017 6 - Diarrhea GUAIFENESIN 04/14/2017 6 - Diarrhea HALDOL (HALOPERIDOL) 10/16/2010 1 - Mental Status Change Comments: Mind goes blank METFORMIN 09/13/2016 5 - Intolerance Comments: GI upset and abdominal pain with XR formulation, metallic taste RISPERDAL (RISPERIDONE) 10/16/2010 13 - Dystonia Date Reviewed: 03/07/2022 Reviewed by: Rossy Bains - Fully Assessed Reason for Visit: Received Outside Medical Records [[id number]] Cmt: [facility] EKG 08/04/2023 Prescriptions as of 08/12/2023 - blood sugar diagnostic (BLOOD GLUCOSE TEST) test strip Test blood sugar(s) two (2) times daily. Dx: Other DM Code E11.9. Insulin: No - Lancets lancets Test blood sugar(s) two (2) times daily. Dx: Other DM Code E11.9. Insulin: No. - alcohol swabs (ALCOHOL PADS) Use as needed two (2) times daily to test blood glucose. - CPAP/BIPAP/OTHER Type .CPAPSettings into a note to see current settings/supplies/DME information. - blood sugar diagnostic (ONETOUCH VERIO TEST STRIPS) test strip Test blood sugar(s) 2 times daily. Dx: Type 2 DM - Controlled E11.9 Insulin: No - Blood-Glucose Sensor (FREESTYLE LAYA 3 SENSOR) fernando Apply new sensor every fourteen (14) days to upper arm. - SITagliptin phosphate (JANUVIA) 100 mg tablet Take 1 tablet by mouth once daily. - cholecalciferol, Vitamin D3, (VITAMIN D3) 1,250 mcg (50,000 unit) cap capsule Take 1 capsule by mouth one time a week. - meloxicam (MOBIC) 15 mg tablet Take 1 tablet by mouth once daily. - simvastatin (ZOCOR) 40 mg tablet Take 1 tablet by mouth daily at bedtime. for cholesterol - divalproex DR (DEPAKOTE) 500 mg EC tablet Take 1 tablet by mouth every morning AND 2 tablets daily at bedtime. - levothyroxine (SYNTHROID) 50 mcg tablet take 1 tablet by mouth once daily ON AN EMPTY STOMACH - CPAP/BIPAP/OTHER Type .CPAPSettings into a note to see current settings/supplies/DME information. - glimepiride (AMARYL) 4 mg tablet take 1 tablet by mouth once daily with breakfast - prazosin (MINIPRESS) 1 mg cap - atomoxetine HCl (STRATTERA ORAL) Take by mouth. - cetirizine (ZYRTEC) 10 mg tablet Take 1 tablet by mouth once daily. - cyclobenzaprine (FLEXERIL) 10 mg tablet Take 1 tablet by mouth three times daily as needed. - montelukast (SINGULAIR) 10 mg tablet Take 1 tablet by mouth daily at bedtime. - Blood Pressure Kit-Extra Large kit Check blood pressure weekly and as needed, - multivitamin tablet Take 1 tablet by mouth once daily. - lancets (ONE TOUCH DELICA) 33 gauge misc Test blood sugar(s) 2 daily. Dx: Type 2 DM - Controlled E11.9 Insulin: No - dextran 70-hypromellose (ARTIFICIAL TEARS) dpet Use 1 Drop in both eyes four times daily. - TRUE METRIX GLUCOSE METER misc as directed. - ziprasidone (GEODON) 20 mg capsule Take 20 mg by mouth once daily. - acetaminophen (TYLENOL) 325 mg tablet Take 2 tablets by mouth every 6 hours as needed. - ziprasidone (GEODON) 80 mg capsule Take 80 mg by mouth once daily. 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] 11/27/2017 Osteomyelitis ([facility]) [M86.9] 11/27/2017 2017 Osteomyelitis of right tibia ([facility]) [M86.9] 11/26/2017 02/10/2018 Vitamin D insufficiency [E55.9] 12/01/2017 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*12/30/2017 Tobacco use [Z72.0] 12/30/2017 Vitamin D deficiency [E55.9] 12/30/2017 08/07/2020 Osteomyelitis of right tibia (HCC) [M86.9] 02/10/2018 11/13/2018 Rosacea [L71.9] 04/27/2018 Schizophrenia (HCC) [F20.9] MAXIMO treated with BiPAP [G47.33] 12/18/2016 Encounter Status:Closed by JEREMY BARBER on 08/12/23 [facility] 08-06-2023 [facility] Telephone (RADHA) TALIA RUBY ([id number]) 1980 M T Date Time Provider Department 08/06/23 KING MATUTE During your visit today, we recorded the following information about you: Jeremy Barber LPN 08/06/2023 10:04 AM Signed Received 08/05/2023 from [facility]. Placed in provider's inbox for review. Route to [place] for scanning Medical Clearance for mental health placement. Allergies As of Date: 08/06/2023 Noted Allergy Reaction ACETAMINOPHEN 04/14/2017 6 - Diarrhea ARIPIPRAZOLE 04/14/2017 14 - Other: See Comments CHLORPHENIRAMINE 04/14/2017 6 - Diarrhea DEXTROMETHORPHAN 04/14/2017 6 - Diarrhea GUAIFENESIN 04/14/2017 6 - Diarrhea HALDOL (HALOPERIDOL) 10/16/2010 1 - Mental Status Change Comments: Mind goes blank METFORMIN 09/13/2016 5 - Intolerance Comments: GI upset and abdominal pain with XR formulation, metallic taste RISPERDAL (RISPERIDONE) 10/16/2010 13 - Dystonia Date Reviewed: 03/07/2022 Reviewed by: Rossy Bains - Fully Assessed Reason for Visit: Received Outside Medical Records [[id number]] Cmt: [facility] Emergency Department Summary 08/03/2023 Prescriptions as of 08/06/2023 - blood sugar diagnostic (BLOOD GLUCOSE TEST) test strip Test blood sugar(s) two (2) times daily. Dx: Other DM Code E11.9. Insulin: No - Lancets lancets Test blood sugar(s) two (2) times daily. Dx: Other DM Code E11.9. Insulin: No. - alcohol swabs (ALCOHOL PADS) Use as needed two (2) times daily to test blood glucose. - CPAP/BIPAP/OTHER Type .CPAPSettings into a note to see current settings/supplies/DME information. - blood sugar diagnostic (ONETOUCH VERIO TEST STRIPS) test strip Test blood sugar(s) 2 times daily. Dx: Type 2 DM - Controlled E11.9 Insulin: No - Blood-Glucose Sensor (FREESTYLE LAYA 3 SENSOR) fernando Apply new sensor every fourteen (14) days to upper arm. - SITagliptin phosphate (JANUVIA) 100 mg tablet Take 1 tablet by mouth once daily. - cholecalciferol, Vitamin D3, (VITAMIN D3) 1,250 mcg (50,000 unit) cap capsule Take 1 capsule by mouth one time a week. - meloxicam (MOBIC) 15 mg tablet Take 1 tablet by mouth once daily. - simvastatin (ZOCOR) 40 mg tablet Take 1 tablet by mouth daily at bedtime. for cholesterol - divalproex DR (DEPAKOTE) 500 mg EC tablet Take 1 tablet by mouth every morning AND 2 tablets daily at bedtime. - levothyroxine (SYNTHROID) 50 mcg tablet take 1 tablet by mouth once daily ON AN EMPTY STOMACH - CPAP/BIPAP/OTHER Type .CPAPSettings into a note to see current settings/supplies/DME information. - glimepiride (AMARYL) 4 mg tablet take 1 tablet by mouth once daily with breakfast - prazosin (MINIPRESS) 1 mg cap - atomoxetine HCl (STRATTERA ORAL) Take by mouth. - cetirizine (ZYRTEC) 10 mg tablet Take 1 tablet by mouth once daily. - cyclobenzaprine (FLEXERIL) 10 mg tablet Take 1 tablet by mouth three times daily as needed. - montelukast (SINGULAIR) 10 mg tablet Take 1 tablet by mouth daily at bedtime. - Blood Pressure Kit-Extra Large kit Check blood pressure weekly and as needed, - multivitamin tablet Take 1 tablet by mouth once daily. - lancets (ONE TOUCH DELICA) 33 gauge misc Test blood sugar(s) 2 daily. Dx: Type 2 DM - Controlled E11.9 Insulin: No - dextran 70-hypromellose (ARTIFICIAL TEARS) dpet Use 1 Drop in both eyes four times daily. - TRUE METRIX GLUCOSE METER misc as directed. - ziprasidone (GEODON) 20 mg capsule Take 20 mg by mouth once daily. - acetaminophen (TYLENOL) 325 mg tablet Take 2 tablets by mouth every 6 hours as needed. - ziprasidone (GEODON) 80 mg capsule Take 80 mg by mouth once daily. 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] 11/27/2017 Osteomyelitis (HCC) [M86.9] 11/27/2017 2017 Osteomyelitis of right tibia (HCC) [M86.9] 11/26/2017 02/10/2018 Vitamin D insufficiency [E55.9] 12/01/2017 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*12/30/2017 Tobacco use [Z72.0] 12/30/2017 Vitamin D deficiency [E55.9] 12/30/2017 08/07/2020 Osteomyelitis of right tibia (HCC) [M86.9] 02/10/2018 11/13/2018 Rosacea [L71.9] 04/27/2018 Schizophrenia (HCC) [F20.9] MAXIMO treated with BiPAP [G47.33] 12/18/2016 Encounter Status:Closed by JEREMY BARBER on 08/06/23 [facility] Sha 08-04-2023 [facility] Telephone (RADHA) TALIA RUBY ([id number]) 1980 [facility] [place] [facility] Date Time Provider Department 08/04/23 KING MATUTE During your visit today, we recorded the following information about you: Leydi Young, AYDEN 08/04/2023 3:21 PM Signed Received fax from [employer] requesting detailed written order, chart notes and sleep study results. Printed requested documents and put the packet in provider's inbox to review and sign. Please route back to clinical pool to fax and scan. Jeremy Barber LPN 08/05/2023 3:41 PM Signed Signed orders faxed. Confirmation receipts received. Sleep study, Titration study and last office note faxed. Allergies As of Date: 08/04/2023 Noted Allergy Reaction ACETAMINOPHEN 04/14/2017 6 - Diarrhea ARIPIPRAZOLE 04/14/2017 14 - Other: See Comments CHLORPHENIRAMINE 04/14/2017 6 - Diarrhea DEXTROMETHORPHAN 04/14/2017 6 - Diarrhea GUAIFENESIN 04/14/2017 6 - Diarrhea HALDOL (HALOPERIDOL) 10/16/2010 1 - Mental Status Change Comments: Mind goes blank METFORMIN 09/13/2016 5 - Intolerance Comments: GI upset and abdominal pain with XR formulation, metallic taste RISPERDAL (RISPERIDONE) 10/16/2010 13 - Dystonia Date Reviewed: 03/07/2022 Reviewed by: Rossy Bains - Fully Assessed Reason for Visit: Orders [[id number]] Prescriptions as of 08/05/2023 - Blood-Glucose Meter monitoring kit Glucose Meter of Choice - Kit - Dx: Other DM Code E11.9. Test blood glucose two (2) times daily. - blood sugar diagnostic (BLOOD GLUCOSE TEST) test strip Test blood sugar(s) two (2) times daily. Dx: Other DM Code E11.9. Insulin: No - Lancets lancets Test blood sugar(s) two (2) times daily. Dx: Other DM Code E11.9. Insulin: No. - alcohol swabs (ALCOHOL PADS) Use as needed two (2) times daily to test blood glucose. - CPAP/BIPAP/OTHER Type .CPAPSettings into a note to see current settings/supplies/DME information. - blood sugar diagnostic (ONETOUCH VERIO TEST STRIPS) test strip Test blood sugar(s) 2 times daily. Dx: Type 2 DM - Controlled E11.9 Insulin: No - Blood-Glucose Sensor (FREESTYLE LAYA 3 SENSOR) fernando Apply new sensor every fourteen (14) days to upper arm. - SITagliptin phosphate (JANUVIA) 100 mg tablet Take 1 tablet by mouth once daily. - cholecalciferol, Vitamin D3, (VITAMIN D3) 1,250 mcg (50,000 unit) cap capsule Take 1 capsule by mouth one time a week. - meloxicam (MOBIC) 15 mg tablet Take 1 tablet by mouth once daily. - simvastatin (ZOCOR) 40 mg tablet Take 1 tablet by mouth daily at bedtime. for cholesterol - divalproex DR (DEPAKOTE) 500 mg EC tablet Take 1 tablet by mouth every morning AND 2 tablets daily at bedtime. - levothyroxine (SYNTHROID) 50 mcg tablet take 1 tablet by mouth once daily ON AN EMPTY STOMACH - CPAP/BIPAP/OTHER Type .CPAPSettings into a note to see current settings/supplies/DME information. - glimepiride (AMARYL) 4 mg tablet take 1 tablet by mouth once daily with breakfast - prazosin (MINIPRESS) 1 mg cap - atomoxetine HCl (STRATTERA ORAL) Take by mouth. - cetirizine (ZYRTEC) 10 mg tablet Take 1 tablet by mouth once daily. - cyclobenzaprine (FLEXERIL) 10 mg tablet Take 1 tablet by mouth three times daily as needed. - montelukast (SINGULAIR) 10 mg tablet Take 1 tablet by mouth daily at bedtime. - Blood Pressure Kit-Extra Large kit Check blood pressure weekly and as needed, - multivitamin tablet Take 1 tablet by mouth once daily. - lancets (ONE TOUCH DELICA) 33 gauge misc Test blood sugar(s) 2 daily. Dx: Type 2 DM - Controlled E11.9 Insulin: No - dextran 70-hypromellose (ARTIFICIAL TEARS) dpet Use 1 Drop in both eyes four times daily. - TRUE METRIX GLUCOSE METER misc as directed. - ziprasidone (GEODON) 20 mg capsule Take 20 mg by mouth once daily. - acetaminophen (TYLENOL) 325 mg tablet Take 2 tablets by mouth every 6 hours as needed. - ziprasidone (GEODON) 80 mg capsule Take 80 mg by mouth once daily. 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 [facility] Absolute lymphocyte countOrd ered By: Erinn Tao on 08-03-2023 Lymphocytes Auto (Unsp spec) [#/Vol] 3.72 10*3/uL 0.83-4.51 [facility] Basophil percentageOrdered B y: Erinn Tao on 08-03-2023 Basophils/100 WBC (Bld) 0.3 % 0-[address] [facility] Chloride [Moles/Vol] 95 mmol/L 98-107 [facility] Eosinophils/100 WBC (Bld) 1.0 % 0-5 [facility] Glucose [Mass/Vol] 193 mg/dL 74-106 [facility] Comment on above: Fasting Glucose resu lt greater than or equal to 126 mg/dL suggests DIABETES MELLITUS per A.D.A. criteria. Neutrophils (Bld) [#/Vol] 9.8 10*3/uL 2.0-7.7 [facility] Neutrophils/100 WBC (Bld) 66.5 % 47-70 [facility] Potassium [Moles/Vol] 3.7 mmol/L 3.5-5.1 [facility] Sodium [Moles/Vol] 137 mmol/L 136-145 [facility] WBC (Bld) [#/Vol] 14.7 10*3/uL 4.4-11.0 [facility] Blood erythrocytes count (nu mber/volume)Ordered By: Erinn Tao on 08-03-2023 RBC (Bld) [#/Vol] 4.57 10*6/uL 4.6-6.2 [facility] Blood hemoglobin measurement (mass/volume)Ordered By: Erinn Tao on 08-03-2023 Hemoglobin (Bld) [Mass/Vol] 13.0 g/dL 13.0-16.5 [facility] Blood lymphocytes/100 leukoc ytesOrdered By: Erinn Tao on 08-03-2023 Lymphocytes/100 WBC (Bld) 25.3 % 19-41 [facility] Blood monocytes/100 leukocyt esOrdered By: Erinn Tao on 08-03-2023 Monocytes/100 WBC (Bld) 6.3 % 0-10 [facility] Blood platelet mean volumeOr dered By: Erinn Tao on 08-03-2023 Platelet mean volume (Bld) [Entitic vol] 10.3 fL 6.2-12.0 [facility] COVID-19 virus antigen assay Ordered By: Erinn Tao on 08-03-2023 SARS-CoV-2 (COVID-19) Ag IA.rapid Ql (Resp) [facility] Determination of erythrocyte mean corpuscular volume (MCV)Ordered By: Erinn Tao on 08-03-2023 MCV (RBC) [Entitic vol] 89.5 fL 80-[address] [facility] Hematocrit Auto (Bld) [Volum e fraction]Ordered By: Erinn Tao on 08-03-2023 Hematocrit (Bld) [Volume fraction] 40.9 % 40-54 [facility] Laboratory - Chemistry and C hemistry - challengeOrdered By: Erinn Tao on 08-03-2023 CO2 [Moles/Vol] 35.0 mmol/L 21.0-32.0 [facility] Urea nitrogen/Creatinine [Mass ratio] 16.1 mg/mg 10-20 [facility] Laboratory - Drug toxicology Ordered By: Erinn Tao on 08-03-2023 Amphetamines Ql (U) Negative <1000 ng/mL [facility] Benzodiazepines Ql (U) Negative < 200 ng/mL [facility] Cannabinoids Screen Ql (U) Positive < 50 ng/mL [facility] Cocaine Ql (U) Negative < 300 ng/mL [facility] Opiates Ql (U) Negative < 300 ng/mL [facility] Laboratory - Hematology and Cell countsOrdered By: Erinn Tao on 08-03-2023 Erythrocyte distribution width (RBC) [Entitic vol] 46.8 fL 35.1-43.9 [facility] Erythrocyte distribution width (RBC) [Ratio] 14.6 % 11.6-14.6 [facility] Immature granulocytes/100 WBC (Bld) 0.600 % 0.0-0.9 [facility] Comment on above: IG% - Immature Granu locytes (promyelocytes, myelocytes and metamyelocytes) > 1% indicates that a LEFT SHIFT is Present. MCH (RBC) [Entitic mass] 28.4 pg 27.0-32.0 [facility] Nucleated RBC/100 WBC (Bld) [Ratio] 0 % 0-5 [facility] MCHC Auto (RBC) [Mass/Vol]Or dered By: Erinn Tao on 08-03-2023 MCHC (RBC) [Mass/Vol] 31.8 g/dL 32-36 [facility] No Panel InformationOrdered By: Erinn Tao on 08-03-2023 MDMA (Ecstasy) Screen Negative < 500 ng/mL [facility] Urine Barbiturates Screen Negative < 200 ng/mL [facility] Urine Drug Screen Comment [facility] Comment on above: CONFIRMATORY TESTING FOR ALL POSITIVE URINE DRUG SCREENRESULTS WILL ONLY BE SENT OUT UPON PHYSICIAN ORDER. [facility] Urine Drug Screen methods provide only preliminaryanalytical test results. A more specific alternate chemicalmethod must be used in order to obtain a confirmedanalytical result. Gas chromatography/mass spectrometery(GC/MS) is the preferred confirmatory method. Clinicalconsideration and professional judgement should be appliedto any drug of abuse test result, particularly whenpreliminary positive results are used. URINE TCA TESTING MUST BE ORDERED SEPARATELY. USE TESTMNEMONIC: [facility] Urine Methadone Screen Negative < 300 ng/mL [facility] Estimated Creatinine Clearance Calc 92.42 ml/min [facility] Estimated GFR (MDRD) Amer 114 mL/min >60 [facility] Comment on above: GFR Calc Estimated GFR (MDRD) Non-Af Amer 94 mL/min >60 [facility] Comment on above: Non- GFR Calc Ethyl Alcohol Level < 3.0 mg/dL [facility] Comment on above: The serum:whole bloo d ethanol ratio is approximately 1.14and varies slightly with hematocrit. Medical Alcohol reference interval and critical value innon-tolerant individuals; 50 - 100 Impairment 100 Intoxication 100 - 250 Severe Poisoning 250 - 400 Deep/possible fatal coma Platelets bldOrdered By: Sue Tao on 08-03-2023 Platelets (Bld) [#/Vol] 298 10*3/uL 150-450 [facility] Serum or plasma calcium diane urement (mass/volume)Ordered By: Erinn Tao on 08-03-2023 Calcium [Mass/Vol] 9.6 mg/dL 8.5-10.1 [facility] Serum or plasma creatinine m easurement (mass/volume)Ordered By: Erinn Tao on 08-03-2023 Creatinine [Mass/Vol] 0.93 mg/dL 0.70-1.30 [facility] Comment on above: The validity of the calculated GFR & GFRAA in patients over 70 years has not been determined. Clinical correlation is essential. Serum or plasma urea nitroge n measurement (mass/volume)Ordered By: Erinn Tao on 08-03-2023 Urea nitrogen [Mass/Vol] 15 mg/dL - [facility] Thin prep Papanicolaou smear with manual screeningOrdered By: Erinn Tao on 08-03-2023 Thin prep Papanicolaou smear with manual screening 7 5- [facility] Urine phencyclidine (PCP) de tectionOrdered By: Erinn Tao on 08-03-2023 Phencyclidine Ql (U) Negative < 25 ng/mL [facility] CNPNon 07-22-2023 CNPN Telephone (FPWADS) TALIA RUBY ([id number]) 1980 M T Date Time Provider Department 07/22/23 KING MATUTE During your visit today, we recorded the following information about you: Rossy Bains 07/22/2023 3:13 PM Signed Received ED summary and labs for mental health from [facility]. Placed in provider's inbox for review. Route to MA scanning Allergies As of Date: 07/22/2023 Noted Allergy Reaction ACETAMINOPHEN 04/14/2017 6 - Diarrhea ARIPIPRAZOLE 04/14/2017 14 - Other: See Comments CHLORPHENIRAMINE 04/14/2017 6 - Diarrhea DEXTROMETHORPHAN 04/14/2017 6 - Diarrhea GUAIFENESIN 04/14/2017 6 - Diarrhea HALDOL (HALOPERIDOL) 10/16/2010 1 - Mental Status Change Comments: Mind goes blank METFORMIN 09/13/2016 5 - Intolerance Comments: GI upset and abdominal pain with XR formulation, metallic taste RISPERDAL (RISPERIDONE) 10/16/2010 13 - Dystonia Date Reviewed: 03/07/2022 Reviewed by: Rossy Bains - Fully Assessed Reason for Visit: Received Outside Medical Records [[id number]] Cmt: [facility] ED 07/21/23 Prescriptions as of 07/22/2023 - CPAP/BIPAP/OTHER Type .CPAPSettings into a note to see current settings/supplies/DME information. - blood sugar diagnostic (ONETOUCH VERIO TEST STRIPS) test strip Test blood sugar(s) 2 times daily. Dx: Type 2 DM - Controlled E11.9 Insulin: No - Blood-Glucose Sensor (FREESTYLE LAYA 3 SENSOR) fernando Apply new sensor every fourteen (14) days to upper arm. - SITagliptin phosphate (JANUVIA) 100 mg tablet Take 1 tablet by mouth once daily. - cholecalciferol, Vitamin D3, (VITAMIN D3) 1,250 mcg (50,000 unit) cap capsule Take 1 capsule by mouth one time a week. - meloxicam (MOBIC) 15 mg tablet Take 1 tablet by mouth once daily. - simvastatin (ZOCOR) 40 mg tablet Take 1 tablet by mouth daily at bedtime. for cholesterol - divalproex DR (DEPAKOTE) 500 mg EC tablet Take 1 tablet by mouth every morning AND 2 tablets daily at bedtime. - levothyroxine (SYNTHROID) 50 mcg tablet take 1 tablet by mouth once daily ON AN EMPTY STOMACH - CPAP/BIPAP/OTHER Type .CPAPSettings into a note to see current settings/supplies/DME information. - glimepiride (AMARYL) 4 mg tablet take 1 tablet by mouth once daily with breakfast - prazosin (MINIPRESS) 1 mg cap - atomoxetine HCl (STRATTERA ORAL) Take by mouth. - cetirizine (ZYRTEC) 10 mg tablet Take 1 tablet by mouth once daily. - cyclobenzaprine (FLEXERIL) 10 mg tablet Take 1 tablet by mouth three times daily as needed. - montelukast (SINGULAIR) 10 mg tablet Take 1 tablet by mouth daily at bedtime. - Blood Pressure Kit-Extra Large kit Check blood pressure weekly and as needed, - multivitamin tablet Take 1 tablet by mouth once daily. - lancets (ONE TOUCH DELICA) 33 gauge misc Test blood sugar(s) 2 daily. Dx: Type 2 DM - Controlled E11.9 Insulin: No - dextran 70-hypromellose (ARTIFICIAL TEARS) dpet Use 1 Drop in both eyes four times daily. - TRUE METRIX GLUCOSE METER [facility] [place]. - ziprasidone (GEODON) 20 mg capsule Take 20 mg by mouth once daily. - acetaminophen (TYLENOL) 325 mg tablet Take 2 tablets by mouth every 6 hours as needed. - ziprasidone (GEODON) 80 mg capsule Take 80 mg by mouth once daily. 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] 11/27/2017 Osteomyelitis (HCC) [M86.9] 11/27/2017 2017 Osteomyelitis of right tibia (HCC) [M86.9] 11/26/2017 02/10/2018 Vitamin D insufficiency [E55.9] 12/01/2017 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*12/30/2017 Tobacco use [Z72.0] 12/30/2017 Vitamin D deficiency [E55.9] 12/30/2017 08/07/2020 Osteomyelitis of right tibia (HCC) [M86.9] 02/10/2018 11/13/2018 Rosacea [L71.9] 04/27/2018 Schizophrenia (HCC) [F20.9] MAXIMO treated with BiPAP [G47.33] 12/18/2016 Encounter Status:Closed by ROSSY BAINS on 07/22/23 Normal [facility] Glucose Glucometer (BldC) [M ass/Vol]Ordered By: Pawan Cardenas on 07-22-2023 Glucose [Mass/Vol] 126 mg/dL 74-106 [facility] Comment on above: MANAGEMENT OF PATIEN T CARE PER NURSING PROTOCOL Absolute lymphocyte countOrd ered By: Pawan Cardenas on 07-21-2023 Lymphocytes Auto (Unsp spec) [#/Vol] 2.59 10*3/uL 0.83-4.51 [facility] Basophil percentageOrdered B y: Pawan Cardenas on 07-21-2023 Basophils/100 WBC (Bld) 0.4 % 0-[address] [facility] Chloride [Moles/Vol] 102 mmol/L 98-107 [facility] Eosinophils/100 WBC (Bld) 1.4 % 0-5 [facility] Glucose [Mass/Vol] 171 mg/dL 74-106 [facility] Comment on above: Fasting Glucose resu lt greater than or equal to 126 mg/dL suggests DIABETES MELLITUS per A.D.A. criteria. Neutrophils (Bld) [#/Vol] 7.6 10*3/uL 2.0-7.7 [facility] Neutrophils/100 WBC (Bld) 67.3 % 47-70 [facility] Potassium [Moles/Vol] 3.8 mmol/L 3.5-5.1 [facility] Sodium [Moles/Vol] 137 mmol/L 136-145 [facility] WBC (Bld) [#/Vol] 11.2 10*3/uL 4.4-11.0 [facility] Blood erythrocytes count (nu mber/volume)Ordered By: Pawan Cardenas on 07-21-2023 RBC (Bld) [#/Vol] 4.75 10*6/uL 4.6-6.2 [facility] Blood hemoglobin measurement (mass/volume)Ordered By: Pawan Cardenas on 07-21-2023 Hemoglobin (Bld) [Mass/Vol] 13.7 g/dL 13.0-16.5 [facility] Blood lymphocytes/100 leukoc ytesOrdered By: Pawan Cardenas on 07-21-2023 Lymphocytes/100 WBC (Bld) 23.0 % 19-41 [facility] Blood monocytes/100 leukocyt esOrdered By: Pawan Cardenas on 07-21-2023 Monocytes/100 WBC (Bld) 7.5 % 0-[address] [facility] Blood platelet mean volumeOr dered By: Pawan Cardenas on 07-21-2023 Platelet mean volume (Bld) [Entitic vol] 9.9 fL 6.2-12.0 [facility] COVID-19 virus antigen assay Ordered By: Pawan Cardenas on 07-21-2023 SARS-CoV-2 (COVID-19) Ag IA.rapid Ql (Resp) [facility] SARS-CoV-2 (COVID-19) Ag IA.rapid Ql (Resp) [facility] Determination of erythrocyte mean corpuscular volume (MCV)Ordered By: Pawan Cardenas on 07-21-2023 MCV (RBC) [Entitic vol] 87.6 fL 80-[address] [facility] Hematocrit Auto (Bld) [Volum e fraction]Ordered By: Pawan Cardenas on 07-21-2023 Hematocrit (Bld) [Volume fraction] 41.6 % 40-54 [facility] Laboratory - Chemistry and C hemistry - challengeOrdered By: Pawan Cardenas on 07-21-2023 CO2 [Moles/Vol] 32.0 mmol/L 21.0-32.0 [facility] Urea nitrogen/Creatinine [Mass ratio] 17.8 mg/mg 10- [facility] Laboratory - Drug toxicology Ordered By: Pawan Cardenas on 07-21-2023 Amphetamines Ql (U) Negative <1000 ng/mL [facility] Benzodiazepines Ql (U) Negative < 200 ng/mL [facility] Cannabinoids Screen Ql (U) Negative < 50 ng/mL [facility] Cocaine Ql (U) Negative < 300 ng/mL [facility] Opiates Ql (U) Negative < 300 ng/mL [facility] Laboratory - Hematology and Cell countsOrdered By: Pawan Cardenas on 07-21-2023 Erythrocyte distribution width (RBC) [Entitic vol] 46.0 fL 35.1-43.9 [facility] Erythrocyte distribution width (RBC) [Ratio] 14.5 % 11.6-14.6 [facility] Immature granulocytes/100 WBC (Bld) 0.400 % 0.0-0.9 [facility] Comment on above: IG% - Immature Granu locytes (promyelocytes, myelocytes and metamyelocytes) > 1% indicates that a LEFT SHIFT is Present. MCH (RBC) [Entitic mass] 28.8 pg 27.0-32.0 [facility] Nucleated RBC/100 WBC (Bld) [Ratio] 0 % 0-5 [facility] MCHC Auto (RBC) [Mass/Vol]Or dered By: Pawan Cardenas on 07-21-2023 MCHC (RBC) [Mass/Vol] 32.9 g/dL 32-36 [facility] No Panel InformationOrdered By: Pawan Cardenas on 07-21-2023 MDMA (Ecstasy) Screen Negative < 500 ng/mL [facility] Urine Barbiturates Screen Negative < 200 ng/mL [facility] Urine Drug Screen Comment [facility] Comment on above: CONFIRMATORY TESTING FOR ALL POSITIVE URINE DRUG SCREENRESULTS WILL ONLY BE SENT OUT UPON PHYSICIAN ORDER. [facility] Urine Drug Screen methods provide only preliminaryanalytical test results. A more specific alternate chemicalmethod must be used in order to obtain a confirmedanalytical result. Gas chromatography/mass spectrometery(GC/MS) is the preferred confirmatory method. Clinicalconsideration and professional judgement should be appliedto any drug of abuse test result, particularly whenpreliminary positive results are used. URINE TCA TESTING MUST BE ORDERED SEPARATELY. USE TESTMNEMONIC: [facility] Urine Methadone Screen Negative < 300 ng/mL [facility] Estimated Creatinine Clearance Calc 106.01 ml/min [facility] Estimated GFR (MDRD) Amer 127 mL/min >60 [facility] Comment on above: GFR Calc Estimated GFR (MDRD) Non-Af Amer 105 mL/min >60 [facility] Comment on above: Non- GFR Calc Ethyl Alcohol Level < 3.0 mg/dL [facility] Comment on above: The serum:whole bloo d ethanol ratio is approximately 1.14and varies slightly with hematocrit. Medical Alcohol reference interval and critical value innon-tolerant individuals; 50 - 100 Impairment 100 Intoxication 100 - 250 Severe Poisoning 250 - 400 Deep/possible fatal coma Platelets bldOrdered By: Erendira Cardenas on 07-21-2023 Platelets (Bld) [#/Vol] 294 10*3/uL 150-450 [facility] Serum or plasma calcium diane urement (mass/volume)Ordered By: Pawan Cardenas on 07-21-2023 Calcium [Mass/Vol] 9.9 mg/dL 8.5-10.1 [facility] Serum or plasma creatinine m easurement (mass/volume)Ordered By: Pawan Cardenas on 07-21-2023 Creatinine [Mass/Vol] 0.84 mg/dL 0.70-1.30 [facility] Comment on above: The validity of the calculated GFR & GFRAA in patients over 70 years has not been determined. Clinical correlation is essential. Serum or plasma urea nitroge n measurement (mass/volume)Ordered By: Pawan Cardenas on 07-21-2023 Urea nitrogen [Mass/Vol] 15 mg/dL 7-18 [facility] Thin prep Papanicolaou smear with manual screeningOrdered By: Pawan Cardenas on 07-21-2023 Thin prep Papanicolaou smear with manual screening 3 5-15 [facility] Urine phencyclidine (PCP) de tectionOrdered By: Pawan Cardenas on 07-21-2023 Phencyclidine Ql (U) Negative < 25 ng/mL [facility] .Auto Diffon 07-10-2023 Basophil, Absolute 0.1 10 3/mcL Normal 0.0-0.2 [facility] Comment on above: Performed By: #### A LC, ADIFF, CMP, CBC, ANEU, GFR, LUPE, ACETA, MDAmarjit ####[address] [place], [place] [address] Basophils/100 WBC (Bld) 0.7 % Normal 0.0-2.5 A [facility], later [facility] ([place]) Comment on above: Performed By: #### A LC, ADIFF, CMP, CBC, ANEU, GFR, LUPE, ACETA, W ####Stephanie [address] [place], [place] [address] Eosinophil, Absolute 0.1 10 3/mcL Normal 0.0-0.4 [facility] ([place]) Comment on above: Performed By: #### A LC, ADIFF, CMP, CBC, ANEU, GFR, LUPE, ACETA, ZULMA ####Stephanie [address] [place], [place] [address] Eosinophils/100 WBC (Bld) 0.5 % Normal 0.0-7.0 [facility] ([place]) Comment on above: Performed By: #### A LC, ADIFF, CMP, CBC, ANEU, GFR, LUPE, ACETA, MDW ####Ste[address]ie [address] [place], [place] [address] Lymphocyte, Absolute 2.4 10 3/mcL Normal 0.8-3.9 [facility] ([place]) Comment on above: Performed By: #### A LC, ADIFF, CMP, CBC, ANEU, GFR, LUPE, ACETAZULMA ####Ste[address]ie [address] [place], [place] [address] Lymphocytes/100 WBC (Bld) 19.9 % Normal 10.0-50.0 [facility] ([place]) Comment on above: Performed By: #### A LC, ADIFF, CMP, CBC, ANEU, GFR, LUPE, ACETAZULMA ####Stephanie [address] [place], [place] [address] Monocyte, Absolute 1.2 10 3/mcL High 0.2-1.0 [facility] ([place]) Comment on above: Performed By: #### A LC, ADIFF, CMP, CBC, ANEU, GFR, LUPE, ACETAZULMA ####Stephanie [address] [place], [place] [address] Monocytes/100 WBC (Bld) 10.1 % Normal 1.7-13.0 A [facility], later [facility] ([place]) Comment on above: Performed By: #### A LC, ADIFF, CMP, CBC, ANEU, GFR, LUPE, ACETAZULMA ####Stephanie [address] [place], [place] [address] Neutrophils/100 WBC (Bld) 68.8 % Normal 37.0-80.0 [facility] ([place]) Comment on above: Performed By: #### A LC, ADIFF, CMP, CBC, ANEU, GFR, LUPE, ACETA, ZULMA ####Stephanie [address] [place], [place] [address] .GFRon 07-10-2023 GFR 81 ml/min/1.73sqm Normal [facility] ([place]) Comment on above: Result Comment: GFR Population mean for , Non- Americans Ages 20-29 = 116 mL/min/1.73 sq.m. Ages 30-39 = 107 mL/min/1.73 sq.m. Ages 40-49 = 99 mL/min/1.73 sq.m. Ages 50-59 = 93 mL/min/1.73 sq.m. Ages 60-69 = 85 mL/min/1.73 sq.m. Ages 70+ = 75 mL/min/1.73 sq.m.Chronic Kidney Disease: Less than 60 mL/min/1.73 square metersEnd Stage Renal Disease: Less than 15 mL/min/1.73 square meters Performed By: #### A LC, ADIFF, CMP, CBC, ANEU, GFR, LUPE, ACETA, MDW ####Stephanie [address] [place], [place] [address] GFR Non- 67 ml/min/1.73sqm Normal [facility] ([place]) Comment on above: Result Comment: GFR Population mean for , Non- Americans Ages 20-29 = 116 mL/min/1.73 sq.m. Ages 30-39 = 107 mL/min/1.73 sq.m. Ages 40-49 = 99 mL/min/1.73 sq.m. Ages 50-59 = 93 mL/min/1.73 sq.m. Ages 60-69 = 85 mL/min/1.73 sq.m. Ages 70+ = 75 mL/min/1.73 sq.m.Chronic Kidney Disease: Less than 60 mL/min/1.73 square metersEnd Stage Renal Disease: Less than 15 mL/min/1.73 square meters Performed By: #### A LC, ADIFF, CMP, CBC, ANEU, GFR, LUPE, ACETA, ZULMA ####Ste[address]ie [address] [place], [place] [address] .MDWon 07-10-2023 Monocyte Distribution Width 15.81 Normal 0.00-20.00 [facility] ([place]) Comment on above: Result Comment: For ED adult patients suspected of sepsis, MDW<=20.0 does not rule out sepsis or risk of sepsis Performed By: #### A LC, ADIFF, CMP, CBC, ANEU, GFR, LUPE, ACETA, MDW ####[address]ie [address] [place], [place] [address] .NEUABSon 07-10-2023 Neutrophil, Absolute 8.2 10 3/mcL High 2.9-6.2 [facility] ([place]) Comment on above: Performed By: #### A LC, ADIFF, CMP, CBC, ANEU, GFR, LUPE, ACETA, ZULMA ####Stephanie [address] [place], [place] [address] ACETAon 07-10-2023 Acetaminophen [Mass/Vol] 0 ug/mL Normal 10.0-30.0 [facility] ([place]) Comment on above: Performed By: #### A LC, ADIFF, CMP, CBC, ANEU, GFR, LUPE, ACETA, ZULMA ####Stephanie [address] [place], [place] [address] Reinaldo 07-10-2023 Ethanol Level <3 Normal 0-3 [facility] ([place]) Comment on above: Performed By: #### A LC, ADIFF, CMP, CBC, ANEU, GFR, LUPE, ACETA, ZULMA ####Stephanie [address] [place], [place] [address] CBCon 07-10-2023 Erythrocyte distribution width (RBC) [Ratio] 16.3 % High 11.5-14.5 [facility] ([place]) Comment on above: Performed By: #### A LC, ADIFF, CMP, CBC, ANEU, GFR, LUPE, ACETA, ZULMA ####Stephanie [address] [place], [place] [address] Hematocrit (Bld) [Volume fraction] 41.9 % Low 42.0-52.0 [facility] ([place]) Comment on above: Performed By: #### A LC, ADIFF, CMP, CBC, ANEU, GFR, LUPE, ACETA, ZULMA ####Stephanie [address] [place], [place] [address] Hgb 14.0 G/dL Normal 14.0-18.0 [facility] ([place]) Comment on above: Performed By: #### A LC, ADIFF, CMP, CBC, ANEU, GFR, LUPE, ACETA, W ####Stephanie [address] [place], [place] [address] MCH (RBC) [Entitic mass] 28.8 pg Normal 27.0-31.2 [facility] ([place]) Comment on above: Performed By: #### A LC, ADIFF, CMP, CBC, ANEU, GFR, LUPE, ACETZULMA Rosado ####Stephanie [address] [place], [place] [address] MCHC 33.4 G/dL Normal 31.8-35.4 [facility] ([place]) Comment on above: Performed By: #### A LC, ADIFF, CMP, CBC, ANEU, GFR, LUPE, ACETA, ZULMA ####Stephanie [address] [place], [place] [address] MCV (RBC) [Entitic vol] 86.2 fL Normal 80.0-94.0 A [facility], later [facility] ([place]) Comment on above: Performed By: #### A LC, ADIFF, CMP, CBC, ANEU, GFR, LUPE, ACETZULMA Rosado ####Stephanie [address] [place], [place] [address] Platelet 244 10 3/mcL Normal 130-400 [facility] ([place]) Comment on above: Performed By: #### A LC, ADIFF, CMP, CBC, ANEU, GFR, LUPE, ACETZULMA Rosado ####Stephanie [address] [place], [place] [address] Platelet mean volume (Bld) [Entitic vol] 7.3 fL Low 7.4-10.4 [facility] ([place]) Comment on above: Performed By: #### A LC, ADIFF, CMP, CBC, ANEU, GFR, LUPE, ACETZULMA Rosado ####Stephanie [address] [place], [place] [address] RBC 4.86 10 6/mcL Normal 4.04-6.13 [facility] ([place]) Comment on above: Performed By: #### A LC, ADIFF, CMP, CBC, ANEU, GFR, LUPE, ACETZULMA Rosado ####Stephanie [address] [place], [place] [address] WBC 11.9 10 3/mcL High 4.6-10.8 [facility] ([place]) Comment on above: Performed By: #### A LC, ADIFF, CMP, CBC, ANEU, GFR, LUPE, ACETA, ZULMA ####Stephanie [address] [place], [place] [address] CMPon 07-10-2023 Albumin Level 3.9 G/dL Normal 3.5-5.0 [facility] ([place]) Comment on above: Performed By: #### A LC, ADIFF, CMP, CBC, ANEU, GFR, LUPE, ACETA, ZULMA ####Stephanie [address] [place], [place] [address] Albumin/Globulin [Mass ratio] 1.1 {ratio} Normal 1.1-2.5 [facility] ([place]) Comment on above: Performed By: #### A LC, ADIFF, CMP, CBC, ANEU, GFR, LUPE, ACETA, ZULMA ####Stephanie [address] [place], [place] [address] ALP [Catalytic activity/Vol] 77 U/L Normal 40-135 [facility] ([place]) Comment on above: Performed By: #### A LC, ADIFF, CMP, CBC, ANEU, GFR, LUPE, ACETA, ZULMA ####Stephanie [address] [place], [place] [address] ALT [Catalytic activity/Vol] 37 U/L Normal 16-63 [facility] ([place]) Comment on above: Performed By: #### A LC, ADIFF, CMP, CBC, ANEU, GFR, LUPE, ACETA, ZULMA ####[address] [place], [place] [address] AST [Catalytic activity/Vol] 29 U/L Normal 10-40 [facility] ([place]) Comment on above: Performed By: #### A LC, ADIFF, CMP, CBC, ANEU, GFR, LUPE, ACETA, ZULMA ####[address]ie [address] [place], [place] [address] Bili Total 0.9 mg/dL Normal 0.2-1.0 [facility] ([place]) Comment on above: Result Comment: Use of this assay is not recommended for patients undergoing treatment with eltrombopag due to the potential for falsely elevated results. Performed By: #### A LC, ADIFF, CMP, CBC, ANEU, GFR, LUPE, ACETA, ZULMA ####Stephanie [address] [place], [place] [address] BUN/Creatinine Ratio 20 ratio Normal 7-27 [facility] ([place]) Comment on above: Performed By: #### A LC, ADIFF, CMP, CBC, ANEU, GFR, LUPE, ACETA, MDAmarjit ####[address] [place], [place] [address] Calcium [Mass/Vol] 9.9 mg/dL Normal 8.4-10.2 [facility] ([place]) Comment on above: Performed By: #### A LC, ADIFF, CMP, CBC, ANEU, GFR, LUPE, ACETA, ZULMA ####Stephanie [address] [place], [place] [address] Chloride [Moles/Vol] 97 mmol/L Low 98-107 [facility] ([place]) Comment on above: Performed By: #### A LC, ADIFF, CMP, CBC, ANEU, GFR, LUPE, ACETA, MDAmarjit ####Ste[address]ie [address] [place], [place] [address] CO2 [Moles/Vol] 32 mmol/L High 22-29 [facility] ([place]) Comment on above: Performed By: #### A LC, ADIFF, CMP, CBC, ANEU, GFR, LUPE, ACETA, MDW ####[address]ie [address] [place], [place] [address] Creatinine [Mass/Vol] 1.19 mg/dL Normal 0.70-1.30 [facility] ([place]) Comment on above: Performed By: #### A LC, ADIFF, CMP, CBC, ANEU, GFR, LUPE, ACETA, ZULMA ####[address] [place], [place] [address] Electrolyte Balance 12.0 mEq/L Normal 4.0-15.0 [facility] ([place]) Comment on above: Performed By: #### A LC, ADIFF, CMP, CBC, ANEU, GFR, LUPE, ACETA, ZULMA ####Stephanie [address] [place], [place] [address] Globulin 3.4 G/dL Normal [facility] ([place]) Comment on above: Performed By: #### A LC, ADIFF, CMP, CBC, ANEU, GFR, LUPE, ACETZULMA Rosado ####Stephanie [address] [place], [place] [address] Glucose [Mass/Vol] 181 mg/dL High 70-105 [facility] ([place]) Comment on above: Performed By: #### A LC, ADIFF, CMP, CBC, ANEU, GFR, LUPE, ACETZULMA Rosado ####Stephanie [address] [place], [place] [address] Potassium [Moles/Vol] 4.1 mmol/L Normal 3.5-5.1 [facility] ([place]) Comment on above: Performed By: #### A LC, ADIFF, CMP, CBC, ANEU, GFR, LUPE, ZULMA MATA ####Stephanie [address] [place], [place] [address] Sodium [Moles/Vol] 141 mmol/L Normal 136-145 [facility] ([place]) Comment on above: Performed By: #### A LC, ADIFF, CMP, CBC, ANEU, GFR, LUPE, ZULMA MATA ####Stephanie [address] [place], [place] [address] Total Protein 7.3 G/dL Normal 6.4-8.2 [facility] ([place]) Comment on above: Performed By: #### A LC, ADIFF, CMP, CBC, ANEU, GFR, LUPE, ZULMA MATA ####[address] [place], [place] [address] Urea nitrogen [Mass/Vol] 24 mg/dL High 7-18 [facility] ([place]) Comment on above: Performed By: #### A LC, ADIFF, CMP, CBC, ANEU, GFR, LUPE, ACETZULMA Rosado ####Stephanie [address] [place], [place] [address] TCYX99ed 07-10-2023 SARS-CoV-2 (COVID-19) RNA HIRAM+probe Ql (Unsp spec) Negative Normal Negative [facility] ([place]) Comment on above: Performed By: #### C OVD19 ####Stephanie [address] [place], [place] [address] SARS-CoV-2 (COVID-19) RNA HIRAM+probe Ql (Unsp spec) Normal [facility] ([place]) Comment on above: Result Comment: Nega tive results do not preclude SARS-CoV-2 infection and should not be used as the sole basis for patient management decisions. Negative results must be combined with clinical observations, patient history, and epidemiological information.There is a risk of false negative values resulting from improperly collected, transported, or handled specimens.There is a risk of false negative values due to the presence of sequence variants in the pathogen targets of the assay, procedural errors, amplification inhibitors in specimens, or inadequate numbers of organisms for amplification.ABDULLAHI SARS-CoV-2 Assay is a Real-Time reverse-transcriptase polymerase chain reaction (RT-PCR) based qualitative in vitro diagnostic test intended for the qualitative detection of nucleic acid from the SARS-CoV-2 in nasopharyngeal swab specimens collected from individuals suspected of COVID-19 by their healthcare provider. Testing is limited to laboratories certified under the Clinical Laboratory Improvement Amendments of 1988 (CLIA), 42 U.S.C. ?263a, to perform moderate and high complexity tests.COVID-19 Int Performed By: #### Pearl OVD19 ####Ste[address]ie [address] [place], [place] [address] LABORATORYOrdered By: Gracia Kramer on 07-10-2023 Acetaminophen [Mass/Vol] 0 ug/mL Invalid Interpretation Code 10.0 - 30.0 mcg/mL AO Chemistry S Amphetamines Screen Ql (U) Positive *ABN* (07/10/23 10:56 AM) Invalid Interpretation Code Negative AO ADM SS Appearance (U) Clear (07/10/23 10:56 AM) Invalid Interpretation Code Clear AO Auto Urine SS Barbiturates Screen Ql (U) Negative *NA* (07/10/23 10:56 AM) Invalid Interpretation Code Negative AO ADM SS Benzodiazepines Ql (U) Negative *NA* (07/10/23 10:56 AM) Invalid Interpretation Code Negative AO ADM SS Benzoylecgonine Screen Ql (U) Negative *NA* (07/10/23 10:56 AM) Invalid Interpretation Code Negative AO ADM SS Bilirubin Ql (U) Negative (07/10/23 10:56 AM) Invalid Interpretation Code Negative AO Auto Urine SS Cannabinoids Screen Ql (U) Positive *ABN* (07/10/23 10:56 AM) Invalid Interpretation Code Negative AO ADM SS Color (U) Yellow (07/10/23 10:56 AM) Invalid Interpretation Code AO Auto Urine SS Glucose Test strip (U) [Mass/Vol] Negative Invalid Interpretation Code Negative AO Auto Urine SS Hemoglobin Auto test strip (U) [Mass/Vol] Negative (07/10/23 10:56 AM) Invalid Interpretation Code Negative AO Auto Urine SS Ketones Ql (U) Negative Invalid Interpretation Code Negative AO Auto Urine SS Methadone Screen Ql (U) Negative *NA* (07/10/23 10:56 AM) Invalid Interpretation Code Negative AO ADM SS Opiates Screen Ql (U) Negative *NA* (07/10/23 10:56 AM) Invalid Interpretation Code Negative AO ADM SS Phencyclidine Ql (U) Negative *NA* (07/10/23 10:56 AM) Invalid Interpretation Code Negative AO ADM SS UA Leuk Est Negative (07/10/23 10:56 AM) Invalid Interpretation Code Negative AO Auto Urine SS UA Nitrite Negative (07/10/23 10:56 AM) Invalid Interpretation Code Negative AO Auto Urine SS UA pH 5.5 (07/10/23 10:56 AM) Invalid Interpretation Code 5.0 - 8.0 AO Auto Urine SS UA Protein 100 mg/dL Invalid Interpretation Code Negative AO Auto Urine SS UA Spec Grav >=1.030 *ABN* (07/10/23 10:56 AM) Invalid Interpretation Code 1.015-1.02 5 AO Auto Urine SS UA Specimen Type Clean Catch (07/10/23 10:56 AM) Invalid Interpretation Code AO Auto Urine SS UA Urobilinogen 1.0 E.U./dL Invalid Interpretation Code 0.2-1.0 AO Auto Urine SS Urine Drugs screened: See Below 3 (07/10/23 10:56 AM) Invalid Interpretation Code AO Chemistry S Comment on above: Interpretive Data: T his drug screen is a presumptive screening only. No confirmation will be performed unless requested. Drugs screened include: Threshold Amphetamines/Methamphetamines 1,000 ng/mL Barbiturates 200 ng/mL Benzodiazepine metabolites 200 ng/mL Cannabinoids (THC metabolites) 50 ng/mL Cocaine 300 ng/mL Opiates 300 ng/mL Methadone 300 ng/mL Phencyclidine (PCP) 25 ng/mL Testing has been performed FOR MEDICAL PURPOSES ONLY. LABORATORYOrdered By: SYSTEM SYSTEM on 07-10-2023 Albumin BCP dye [Mass/Vol] 3.9 G/dL Invalid Interpretation Code 3.5 - 5.0 G/dL AO ADM SS Albumin/Globulin [Mass ratio] 1.1 {ratio} Invalid Interpretation Code 1.1 - 2.5 ratio AO ADM SS ALP [Catalytic activity/Vol] 77 U/L Invalid Interpretation Code 40 - 135 U/L AO ADM SS ALT With P-5'-P [Catalytic activity/Vol] 37 U/L Invalid Interpretation Code 16 - 63 U/L AO ADM SS AST With P-5'-P [Catalytic activity/Vol] 29 U/L Invalid Interpretation Code 10 - 40 U/L AO ADM SS Basophil, Absolute 0.1 103/mcL Invalid Interpretation Code 0.0 - 0.2 10^3/mcL AO Workflow SS Basophils/100 WBC (Bld) 0.7 % Invalid Interpretation Code 0.0 - 2.5 % AO Workflow SS Bilirubin [Mass/Vol] 0.9 mg/dL Invalid Interpretation Code 0.2 - 1.0 mg/dL AO ADM SS Comment on above: Interpretive Data: U se of this assay is not recommended for patients undergoing treatment with eltrombopag due to the potential for falsely elevated results. Calcium [Mass/Vol] 9.9 mg/dL Invalid Interpretation Code 8.4 - 10.2 mg/dL AO ADM SS Chloride [Moles/Vol] 97 mmol/L Invalid Interpretation Code 98 - 107 mmol/L AO ADM SS CO2 [Moles/Vol] 32 mmol/L Invalid Interpretation Code 22 - 29 mmol/L AO ADM SS Creatinine [Mass/Vol] 1.19 mg/dL Invalid Interpretation Code 0.70 - 1.30 mg/dL AO ADM SS Electrolyte Balance 12.0 mEq/L Invalid Interpretation Code 4.0 - 15.0 mEq/L AO ADM SS Eosinophil, Absolute 0.1 103/mcL Invalid Interpretation Code 0.0 - 0.4 10^3/mcL AO Workflow SS Eosinophils/100 WBC (Bld) 0.5 % Invalid Interpretation Code 0.0 - 7.0 % AO Workflow SS Erythrocyte distribution width (RBC) [Ratio] 16.3 % Invalid Interpretation Code 11.5 - 14.5 % AO Workflow SS Ethanol [Mass/Vol] mg/dL Invalid Interpretation Code 0 - 3 mg/dL AO ADM SS GFR/1.73 sq M.predicted among blacks MDRD (S/P/Bld) [Vol rate/Area] 81 ml/min/1.73sqm Invalid Interpretation Code AO Chemistry S Comment on above: Interpretive Data: GFR Population mean for , Non- Americans Ages 20-29 = 116 mL/min/1.73 sq.m. Ages 30-39 = 107 mL/min/1.73 sq.m. Ages 40-49 = 99 mL/min/1.73 sq.m. Ages 50-59 = 93 mL/min/1.73 sq.m. Ages 60-69 = 85 mL/min/1.73 sq.m. Ages 70+ = 75 mL/min/1.73 sq.m. Chronic Kidney Disease: Less than 60 mL/min/1.73 square meters End Stage Renal Disease: Less than 15 mL/min/1.73 square meters GFR/1.73 sq M.predicted among non-blacks MDRD (S/P/Bld) [Vol rate/Area] 67 ml/min/1.73sqm Invalid Interpretation Code AO Chemistry S Comment on above: Interpretive Data: GFR Population mean for , Non- Americans Ages 20-29 = 116 mL/min/1.73 sq.m. Ages 30-39 = 107 mL/min/1.73 sq.m. Ages 40-49 = 99 mL/min/1.73 sq.m. Ages 50-59 = 93 mL/min/1.73 sq.m. Ages 60-69 = 85 mL/min/1.73 sq.m. Ages 70+ = 75 mL/min/1.73 sq.m. Chronic Kidney Disease: Less than 60 mL/min/1.73 square meters End Stage Renal Disease: Less than 15 mL/min/1.73 square meters Globulin 3.4 G/dL Invalid Interpretation Code AO ADM SS Glucose [Mass/Vol] 181 mg/dL Invalid Interpretation Code 70 - 105 mg/dL AO ADM SS Hematocrit (Bld) [Volume fraction] 41.9 % Invalid Interpretation Code 42.0 - 52.0 % AO Workflow SS Hemoglobin (Bld) [Mass/Vol] 14.0 G/dL Invalid Interpretation Code 14.0 - 18.0 G/dL AO Workflow SS Lymphocyte, Absolute 2.4 103/mcL Invalid Interpretation Code 0.8 - 3.9 10^3/mcL AO Workflow SS Lymphocytes/100 WBC (Bld) 19.9 % Invalid Interpretation Code 10.0 - 50.0 % AO Workflow SS MCH (RBC) [Entitic mass] 28.8 pg Invalid Interpretation Code 27.0 - 31.2 pg AO Workflow SS MCHC 33.4 G/dL Invalid Interpretation Code 31.8 - 35.4 G/dL AO Workflow SS MCV (RBC) [Entitic vol] 86.2 fL Invalid Interpretation Code 80.0 - 94.0 fL AO Workflow SS Monocyte distribution width Auto (Bld) [Entitic vol] 15.81 1 Invalid Interpretation Code 0.00 - 20.00 AO Workflow SS Comment on above: Result Comment: For ED adult patients suspected of sepsis, MDW<=20.0 does not rule out sepsis or risk of sepsis Monocyte, Absolute 1.2 103/mcL Invalid Interpretation Code 0.2 - 1.0 10^3/mcL AO Workflow SS Monocytes/100 WBC (Bld) 10.1 % Invalid Interpretation Code 1.7 - 13.0 % AO Workflow SS Neutrophil, Absolute 8.2 103/mcL Invalid Interpretation Code 2.9 - 6.2 10^3/mcL AO Workflow SS Neutrophils/100 WBC (Bld) 68.8 % Invalid Interpretation Code 37.0 - 80.0 % AO Workflow SS Platelet mean volume (Bld) [Entitic vol] 7.3 fL Invalid Interpretation Code 7.4 - 10.4 fL AO Workflow SS Platelets (Bld) [#/Vol] 244 103/mcL Invalid Interpretation Code 130 - 400 10^3/mcL AO Workflow SS Potassium [Moles/Vol] 4.1 mmol/L Invalid Interpretation Code 3.5 - 5.1 mmol/L AO ADM SS Protein [Mass/Vol] 7.3 G/dL Invalid Interpretation Code 6.4 - 8.2 G/dL AO ADM SS RBC (Bld) [#/Vol] 4.86 106/mcL Invalid Interpretation Code 4.04 - 6.13 10^6/mcL AO Workflow SS Salicylates [Mass/Vol] 0.5 mg/dL Invalid Interpretation Code 2.8 - 20.0 mg/dL AO ADM SS Sodium [Moles/Vol] 141 mmol/L Invalid Interpretation Code 136 - 145 mmol/L AO ADM SS Urea nitrogen [Mass/Vol] 24 mg/dL Invalid Interpretation Code 7 - 18 mg/dL AO ADM SS Urea nitrogen/Creatinine [Mass ratio] 20 ratio Invalid Interpretation Code 7 - 27 ratio AO ADM SS WBC (Bld) [#/Vol] 11.9 103/mcL Invalid Interpretation Code 4.6 - 10.8 10^3/mcL AO Workflow SS LABORATORYOrdered By: Dallas Gilbert on 07-10-2023 SARS-CoV-2 (COVID-19) RNA HIRAM+probe Ql (Resp) Negative results do not preclude SARS-CoV-2 infection and should not be used as the sole basis for patient management decisions. Negative results must be combined with clinical observations, patient history, and epidemiological information.There is a risk of false negative values resulting from improperly collected, transported, or handled specimens.There is a risk of false negative values due to the presence of sequence variants in the pathogen targets of the assay, procedural errors, amplification inhibitors in specimens, or inadequate numbers of organisms for amplification.ABDULLAHI SARS-CoV-2 Assay is a Real-Time reverse-transcriptase polymerase chain reaction (RT-PCR) based qualitative in vitro diagnostic test intended for the qualitative detection of nucleic acid from the SARS-CoV-2 in nasopharyngeal swab specimens collected from individuals suspected of COVID-19 by their healthcare provider. Testing is limited to laboratories certified under the Clinical Laboratory Improvement Amendments of 1988 (CLIA), 42 U.S.C. 263a, to perform moderate and high complexity tests. Invalid Interpretation Code AO Auto Urine SS SALon 07-10-2023 Salicylate Level 0.5 mg/dL Low 2.8-20.0 [facility] ([place]) Comment on above: Performed By: #### A LC, ADIFF, CMP, CBC, ANEU, GFR, LUPE, ZULMA MATA ####Stephanie [address] [place], [place] [address] UDRUGon 07-10-2023 Amphetamine (u) Positive Abnormal Negative [facility] ([place]) Comment on above: Performed By: #### U ADIP, UDRUG ####Stephanie [address] [place], [place] [address] Barbiturate (u) Negative Normal Negative [facility] ([place]) Comment on above: Performed By: #### U ADIP, UDRUG ####Stephanie [address] [place], [place] [address] Benzodiazepine (u) Negative Normal Negative [facility] ([place]) Comment on above: Performed By: #### U ADIP, UDRUG ####Stephanie [address] [place], [place] [address] Cannabinoid (u) Positive Abnormal Negative [facility] ([place]) Comment on above: Performed By: #### U ADIP, UDRUG ####Stephanie [address] [place], [place] [address] Cocaine Ql (U) Negative Normal Negative [facility] ([place]) Comment on above: Performed By: #### U ADIP, UDRUG ####Stephanie [address] [place], [place] [address] Methadone Ql (U) Negative Normal Negative [facility] ([place]) Comment on above: Performed By: #### U ADIP, UDRUG ####Stephanie [address] [place], [place] [address] Opiate (u) Negative Normal Negative [facility] ([place]) Comment on above: Performed By: #### U ADIP, UDRUG ####Stephanie [address] [place], [place] [address] PCP (u) Negative Normal Negative [facility] ([place]) Comment on above: Performed By: #### U ADIP, UDRUG ####Stephanie [address] [place], [place] [address] Urine Drugs screened: See Below Normal [facility] ([place]) Comment on above: Result Comment: This drug screen is a presumptive screening only.No confirmation will be performed unless requested.Drugs screened include: ThresholdAmphetamines/Methamphetamines 1,000 ng/mLBarbiturates 200 ng/mLBenzodiazepine metabolites 200 ng/mLCannabinoids (THC metabolites) 50 ng/mLCocaine 300 ng/mLOpiates 300 ng/mLMethadone 300 ng/mLPhencyclidine (PCP) 25 ng/mLTesting has been performed FOR MEDICAL PURPOSES ONLY. Performed By: #### U ADIP, UDRUG ####Stephanie [address] [place], [place] [address] URINon 07-10-2023 Color (U) Yellow Normal [facility] ([place]) Comment on above: Performed By: #### U ADIP, UDRUG ####Stephanie [address] [place], [place] [address] Glucose (U) [Mass/Vol] Negative Normal Negative [facility] ([place]) Comment on above: Performed By: #### U ADIP, UDRUG ####Stephanie [address] [place], [place] [address] Ketones Ql (U) Negative Normal Negative [facility] ([place]) Comment on above: Performed By: #### U ADIP, UDRUG ####Stephanie [address] [place], [place] [address] Protein (U) [Mass/Vol] 100 mg/dL Abnormal Negative [facility] ([place]) Comment on above: Performed By: #### U ADIP, UDRUG ####Ste[address]ie [address] [place], [place] [address] UA Appear Clear Normal Clear [facility] ([place]) Comment on above: Performed By: #### U ADIP, UDRUG ####[address] [place], [place] [address] UA Blood Negative Normal Negative [facility] ([place]) Comment on above: Performed By: #### U ADIP, UDRUG ####[address] [place], [place] [address] UA Leuk Est Negative Normal Negative [facility] ([place]) Comment on above: Performed By: #### U ADIP, UDRUG ####Stephanie [address] [place], [place] [address] UA Nitrite Negative Normal Negative [facility] ([place]) Comment on above: Performed By: #### U ADIP, UDRUG ####Stephanie [address] [place], [place] [address] UA pH 5.5 Normal 5.0 - 8.0 [facility] ([place]) Comment on above: Performed By: #### U ADIP, UDRUG ####[address] [place], [place] [address] UA Spec Grav >=1.030 Abnormal 1.015-1.02 5 [facility] ([place]) Comment on above: Performed By: #### U ADIP, UDRUG ####Stephanie [address] [place], [place] [address] UA Specimen Type Clean Catch Normal [facility] ([place]) Comment on above: Performed By: #### U ADIP, UDRUG ####[address] [place], [place] [address] UA Urobilinogen 1.0 E.U./dL Normal 0.2-1.0 [facility] ([place]) Comment on above: Performed By: #### U ADIP, UDRUG ####[address] [place], [place] [address] Urobilinogen (U) [Mass/Vol] Negative Normal Negative [facility] ([place]) Comment on above: Performed By: #### U ADIP, UDRUG ####Stephanie [address] [place], [place] [address] Sah 07-02-2023 LETITIA Telephone (FPSAMUEL) TALIA RUBY ([id number]) 1980 [address] [facility] Date Time Provider Department 07/02/23 TON DWYER FPSAMUEL During your visit today, we recorded the following information about you: Ton Dwyer APRN.CNP 07/02/2023 12:00 PM Signed Let patient know that his sleep study confirmed a diagnosis of severe sleep apnea and recommended a Bilevel Pap machine with auto settings. Does he need new machine/supplies orders sent and if so, what DME company does he use? KOFI Molina Cheralyn 07/02/2023 2:16 PM Signed Called and informed pt of Sleep Study results and recommendation for bilevel pap. Pt states he does need a new order. Pt states he uses [employer]. Ton Dwyer APRN.CNP 07/02/2023 2:42 PM Signed Orders placed in outbox, please fax. KOFI Molina Cheralyn 07/03/2023 9:29 AM Signed Order, sleep study, insurance cards, pt demographics sheet and JULI note faxed to [facility] [phone] Allergies As of Date: 07/02/2023 Noted Allergy Reaction ACETAMINOPHEN 04/14/2017 6 - Diarrhea ARIPIPRAZOLE 04/14/2017 14 - Other: See Comments CHLORPHENIRAMINE 04/14/2017 6 - Diarrhea DEXTROMETHORPHAN 04/14/2017 6 - Diarrhea GUAIFENESIN 04/14/2017 6 - Diarrhea HALDOL (HALOPERIDOL) 10/16/2010 1 - Mental Status Change Comments: Mind goes blank METFORMIN 09/13/2016 5 - Intolerance Comments: GI upset and abdominal pain with XR formulation, metallic taste RISPERDAL (RISPERIDONE) 10/16/2010 13 - Dystonia Date Reviewed: 03/07/2022 Reviewed by: Rossy Bains - Fully Assessed Reason for Visit: Results [95] Orders [681] Primary Visit Diagnosis:Obstructive sleep apnea [G47.33] Order(s):PAP THERAPY ORDER [[id number]] Order #: [id number]: 1 CPAP/BIPAP/OTHERType .CPAPSettings into a note to see current settings/supplies/DME information.Disp: 1 EachRfl: 0 Prescriptions as of 07/03/2023 - CPAP/BIPAP/OTHER Type .CPAPSettings into a note to see current settings/supplies/DME information. - blood sugar diagnostic (ONETOUCH VERIO TEST STRIPS) test strip Test blood sugar(s) 2 times daily. Dx: Type 2 DM - Controlled E11.9 Insulin: No - Blood-Glucose Sensor (FREESTYLE LAYA 3 SENSOR) fernando Apply new sensor every fourteen (14) days to upper arm. - SITagliptin phosphate (JANUVIA) 100 mg tablet Take 1 tablet by mouth once daily. - cholecalciferol, Vitamin D3, (VITAMIN D3) 1,250 mcg (50,000 unit) cap capsule Take 1 capsule by mouth one time a week. - meloxicam (MOBIC) 15 mg tablet Take 1 tablet by mouth once daily. - simvastatin (ZOCOR) 40 mg tablet Take 1 tablet by mouth daily at bedtime. for cholesterol - divalproex DR (DEPAKOTE) 500 mg EC tablet Take 1 tablet by mouth every morning AND 2 tablets daily at bedtime. - levothyroxine (SYNTHROID) 50 mcg tablet take 1 tablet by mouth once daily ON AN EMPTY STOMACH - CPAP/BIPAP/OTHER Type .CPAPSettings into a note to see current settings/supplies/DME information. - glimepiride (AMARYL) 4 mg tablet take 1 tablet by mouth once daily with breakfast - prazosin (MINIPRESS) 1 mg cap - atomoxetine HCl (STRATTERA ORAL) Take by mouth. - cetirizine (ZYRTEC) 10 mg tablet Take 1 tablet by mouth once daily. - cyclobenzaprine (FLEXERIL) 10 mg tablet Take 1 tablet by mouth three times daily as needed. - montelukast (SINGULAIR) 10 mg tablet Take 1 tablet by mouth daily at bedtime. - Blood Pressure Kit-Extra Large kit Check blood pressure weekly and as needed, - multivitamin tablet Take 1 tablet by mouth once daily. - lancets (ONE TOUCH DELICA) 33 gauge misc Test blood sugar(s) 2 daily. Dx: Type 2 DM - Controlled E11.9 Insulin: No - dextran 70-hypromellose (ARTIFICIAL TEARS) dpet Use 1 Drop in both eyes four times daily. - TRUE METRIX GLUCOSE METER [facility] [facility] [place]. - ziprasidone (GEODON) 20 mg capsule Take 20 mg by mouth once daily. - acetaminophen (TYLENOL) 325 mg tablet Take 2 tablets by mouth every 6 hours as needed. - ziprasidone (GEODON) 80 mg capsule Take 80 mg by mouth once daily. 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 Normal [facility] LABORATORYOrdered By: Milton Phillips on 05-12-2023 Blood Glucose Testing Reason Routine (05/12/23 11:40 AM) [facility] Glucose [Mass/Vol] 130 mg/dL Invalid Interpretation Code 70 - 110 mg/dL [facility] LABORATORYOrdered By: Corie delong on 05-12-2023 Blood Glucose Testing Reason Routine (05/12/23 7:59 AM) [facility] Glucose [Mass/Vol] 128 mg/dL Invalid Interpretation Code 70 - 110 mg/dL [facility] LABORATORYOrdered By: Hitesh Mireles on 05-11-2023 Blood Glucose Testing Reason Routine (05/11/23 9:33 PM) [facility] Glucose [Mass/Vol] 239 mg/dL Invalid Interpretation Code 70 - 110 mg/dL [facility] LABORATORYOrdered By: Shasta Shell on 05-11-2023 Blood Glucose Interventions Administered agent to decrease blood sugar (05/11/23 11:40 AM) [facility] .Auto Diffon 05-10-2023 Basophil, Absolute 0.0 10 3/mcL Normal 0.0-0.3 [facility] ([place]) Comment on above: Performed By: #### G FR, MG, ANEU, CMP, ADIFF, CBC, PHOS ####[address] [address] Basophils/100 WBC (Bld) 0.5 % Normal 0.0-2.5 A [facility] ([place]) Comment on above: Performed By: #### G FR, MG, ANEU, CMP, ADIFF, CBC, PHOS ####[address] [address] Eosinophil, Absolute 0.0 10 3/mcL Normal 0.0-0.7 [facility] ([place]) Comment on above: Performed By: #### G FR, MG, ANEU, CMP, ADIFF, CBC, PHOS ####[address] [address] Eosinophils/100 WBC (Bld) 0.2 % Normal 0.0-6.0 [facility] ([place]) Comment on above: Performed By: #### G FR, MG, ANEU, CMP, ADIFF, CBC, PHOS ####[address] [address] Lymphocyte, Absolute 1.2 10 3/mcL Normal 0.9-4.3 [facility] ([place]) Comment on above: Performed By: #### G FR, MG, ANEU, CMP, ADIFF, CBC, PHOS ####[address] [address] Lymphocytes/100 WBC (Bld) 12.9 % Low 20.0-40.0 [facility] ([place]) Comment on above: Performed By: #### G FR, MG, ANEU, CMP, ADIFF, CBC, PHOS ####[address] [address] Monocyte, Absolute 0.4 10 3/mcL Normal 0.1-1.4 [facility] ([place]) Comment on above: Performed By: #### G FR, MG, ANEU, CMP, ADIFF, CBC, PHOS ####[address] [address] Monocytes/100 WBC (Bld) 4.2 % Normal 2.0-13.0 A [facility] ([place] Comment on above: Performed By: #### G FR, MG, ANEU, CMP, ADIFF, CBC, PHOS ####[address] [address] Neutrophils/100 WBC (Bld) 82.2 % High 50.0-75.0 [facility] ([place]) Comment on above: Performed By: #### G FR, MG, ANEU, CMP, ADIFF, CBC, PHOS ####[address] [address] .GFRon 05-10-2023 GFR >60 Normal [facility] ([place]) Comment on above: Result Comment: GFR Population mean for , Non- Americans Ages 20-29 = 116 mL/min/1.73 sq.m. Ages 30-39 = 107 mL/min/1.73 sq.m. Ages 40-49 = 99 mL/min/1.73 sq.m. Ages 50-59 = 93 mL/min/1.73 sq.m. Ages 60-69 = 85 mL/min/1.73 sq.m. Ages 70+ = 75 mL/min/1.73 sq.m.Chronic Kidney Disease: Less than 60 mL/min/1.73 square metersEnd Stage Renal Disease: Less than 15 mL/min/1.73 square meters Performed By: #### G FR, MG, ANEU, CMP, ADIFF, CBC, PHOS ####[address] [address] GFR Non- >60 Normal [facility] ([place]) Comment on above: Result Comment: GFR Population mean for , Non- Americans Ages 20-29 = 116 mL/min/1.73 sq.m. Ages 30-39 = 107 mL/min/1.73 sq.m. Ages 40-49 = 99 mL/min/1.73 sq.m. Ages 50-59 = 93 mL/min/1.73 sq.m. Ages 60-69 = 85 mL/min/1.73 sq.m. Ages 70+ = 75 mL/min/1.73 sq.m.Chronic Kidney Disease: Less than 60 mL/min/1.73 square metersEnd Stage Renal Disease: Less than 15 mL/min/1.73 square meters Performed By: #### G FR, MG, ANEU, CMP, ADIFF, CBC, PHOS ####[place] [address] .NEUABSon 05-10-2023 Neutrophil, Absolute 7.4 10 3/mcL Normal 2.3-8.1 [facility] ([place]) Comment on above: Performed By: #### G FR, MG, ANEU, CMP, ADIFF, CBC, PHOS ####[place] [address] CBCon 05-10-2023 Erythrocyte distribution width (RBC) [Ratio] 16.3 % High 11.5-15.5 [facility] ([place]) Comment on above: Performed By: #### G FR, MG, ANEU, CMP, ADIFF, CBC, PHOS ####[place] [address] Hematocrit (Bld) [Volume fraction] 44.7 % Normal 40.0-52.0 [facility] ([place]) Comment on above: Performed By: #### G FR, MG, ANEU, CMP, ADIFF, CBC, PHOS ####[place] [address] Hgb 14.7 G/dL Normal 13.0-17.5 [facility] ([place]) Comment on above: Performed By: #### G FR, MG, ANEU, CMP, ADIFF, CBC, PHOS ####[place] [address] MCH (RBC) [Entitic mass] 29.2 pg Normal 27.0-33.0 [facility] ([place]) Comment on above: Performed By: #### G FR, MG, ANEU, CMP, ADIFF, CBC, PHOS ####[place] [address] MCHC 32.8 G/dL Normal 32.0-36.0 [facility] ([place]) Comment on above: Performed By: #### G FR, MG, ANEU, CMP, ADIFF, CBC, PHOS ####[place] [address] MCV (RBC) [Entitic vol] 88.9 fL Normal 81.0-100.0 A [facility] ([place] Comment on above: Performed By: #### G FR, MG, ANEU, CMP, ADIFF, CBC, PHOS ####[place] [address] Platelet 238 10 3/mcL Normal 150-450 [facility] ([place]) Comment on above: Performed By: #### G FR, MG, ANEU, CMP, ADIFF, CBC, PHOS ####[place] [address] Platelet mean volume (Bld) [Entitic vol] 9.2 fL Normal 6.4-10.5 [facility] ([place]) Comment on above: Performed By: #### G FR, MG, ANEU, CMP, ADIFF, CBC, PHOS ####[place] [address] RBC 5.03 10 6/mcL Normal 4.50-6.00 [facility] ([place]) Comment on above: Performed By: #### G FR, MG, ANEU, CMP, ADIFF, CBC, PHOS ####[place] [address] WBC 9.0 10 3/mcL Normal 4.5-10.8 [facility] ([place]) Comment on above: Performed By: #### G FR, MG, ANEU, CMP, ADIFF, CBC, PHOS ####[place] [address] CBLon 05-10-2023 CBL Normal [facility] ([place]) CBL Normal [facility] ([place]) CBL Normal [facility] ([place]) CMPon 05-10-2023 Albumin Level 3.5 G/dL Normal 3.2-4.8 [facility] ([place]) Comment on above: Performed By: #### G FR, MG, ANEU, CMP, ADIFF, CBC, PHOS ####[place] [address] Albumin/Globulin [Mass ratio] 0.9 {ratio} Normal 0.9-1.6 [facility] ([place]) Comment on above: Performed By: #### G FR, MG, ANEU, CMP, ADIFF, CBC, PHOS ####[place] [address] ALP [Catalytic activity/Vol] 111 U/L Normal 38-126 [facility] ([place]) Comment on above: Performed By: #### G FR, MG, ANEU, CMP, ADIFF, CBC, PHOS ####[place] [address] ALT [Catalytic activity/Vol] 72 U/L High 12-55 [facility] ([place]) Comment on above: Performed By: #### G FR, MG, ANEU, CMP, ADIFF, CBC, PHOS ####[place] [address] AST [Catalytic activity/Vol] 38 U/L High 8-34 [facility] ([place] Comment on above: Performed By: #### G FR, MG, ANEU, CMP, ADIFF, CBC, PHOS ####[place] [address] Bili Total 0.70 mg/dL Normal 0.20-1.20 [facility] ([place]) Comment on above: Result Comment: Use of this assay is not recommended for patients undergoing treatment with eltrombopag due to the potential for falsely elevated results. Performed By: #### G FR, MG, ANEU, CMP, ADIFF, CBC, PHOS ####[place] [address] BUN/Creatinine Ratio 28.4 ratio High 10.0-22.0 [facility] ([place]) Comment on above: Performed By: #### G FR, MG, ANEU, CMP, ADIFF, CBC, PHOS ####[place] [address] Calcium [Mass/Vol] 10.0 mg/dL Normal 8.7-10.4 [facility] ([place]) Comment on above: Performed By: #### G FR, MG, ANEU, CMP, ADIFF, CBC, PHOS ####[address] [address] Chloride [Moles/Vol] 99 mmol/L Normal 98-110 [facility] ([place]) Comment on above: Performed By: #### G FR, MG, ANEU, CMP, ADIFF, CBC, PHOS ####[address] [address] CO2 [Moles/Vol] 32 mmol/L Normal 22-32 [facility] ([place]) Comment on above: Performed By: #### G FR, MG, ANEU, CMP, ADIFF, CBC, PHOS ####[place] [address] Creatinine [Mass/Vol] 0.67 mg/dL Normal 0.60-1.40 [facility] ([place]) Comment on above: Performed By: #### G FR, MG, ANEU, CMP, ADIFF, CBC, PHOS ####[place] [address] Electrolyte Balance 9.0 mEq/L Normal 4.0-15.0 [facility] ([place]) Comment on above: Performed By: #### G FR, MG, ANEU, CMP, ADIFF, CBC, PHOS ####[place] [address] Globulin 3.8 G/dL Normal 1.5-3.8 [facility] ([place]) Comment on above: Performed By: #### G FR, MG, ANEU, CMP, ADIFF, CBC, PHOS ####[place] [address] Glucose [Mass/Vol] 177 mg/dL High 70-110 [facility] ([place]) Comment on above: Performed By: #### G FR, MG, ANEU, CMP, ADIFF, CBC, PHOS ####[place] [address] Potassium [Moles/Vol] 4.6 mmol/L Normal 3.5-5.0 [facility] ([place]) Comment on above: Result Comment: Spec imen slightly hemolyzed. Performed By: #### G FR, MG, ANEU, CMP, ADIFF, CBC, PHOS ####[facility] [place] [address] Sodium [Moles/Vol] 140 mmol/L Normal 136-145 [facility] ([place]) Comment on above: Performed By: #### G FR, MG, ANEU, CMP, ADIFF, CBC, PHOS ####[place] [id number] [place] [address] Total Protein 7.3 G/dL Normal 5.7-8.2 [facility] ([place]) Comment on above: Result Comment: No te - New Reference Range in effect 20 Performed By: #### G FR, MG, ANEU, CMP, ADIFF, CBC, PHOS ####[place] [id number] [place] [address] Urea nitrogen [Mass/Vol] 19.0 mg/dL Normal 8.0-22.0 [facility] ([place]) Comment on above: Performed By: #### G FR, MG, ANEU, CMP, ADIFF, CBC, PHOS ####[facility] [place] [id number] LABORATORYOrdered By: Abdirashid larios on 05-10-2023 Blood Glucose Interventions Administered agent to decrease blood sugar (05/10/23 12:20 PM) [facility] LABORATORYOrdered By: SYSTEM SYSTEM on 05-10-2023 Albumin BCP dye [Mass/Vol] 3.5 G/dL Invalid Interpretation Code 3.2 - 4.8 G/dL ADM SS Albumin/Globulin [Mass ratio] 0.9 {ratio} Invalid Interpretation Code 0.9 - 1.6 ratio AH ADM SS ALP [Catalytic activity/Vol] 111 U/L Invalid Interpretation Code 38 - 126 U/L AH ADM SS ALT No additional P-5'-P [Catalytic activity/Vol] 72 U/L Invalid Interpretation Code 12 - 55 U/L AH ADM SS AST [Catalytic activity/Vol] 38 U/L Invalid Interpretation Code 8 - 34 U/L AH ADM SS Basophils (Bld) [#/Vol] 0.0 103/mcL Invalid Interpretation Code 0.0 - 0.3 10^3/mcL AH Workflow SS Basophils/100 WBC (Bld) 0.5 % Invalid Interpretation Code 0.0 - 2.5 % Workflow SS Bilirubin [Mass/Vol] 0.70 mg/dL Invalid Interpretation Code 0.20 - 1.20 mg/dL ADM SS Comment on above: Interpretive Data: U se of this assay is not recommended for patients undergoing treatment with eltrombopag due to the potential for falsely elevated results. Calcium [Mass/Vol] 10.0 mg/dL Invalid Interpretation Code 8.7 - 10.4 mg/dL ADM SS Chloride [Moles/Vol] 99 mmol/L Invalid Interpretation Code 98 - 110 mEq/L ADM SS CO2 [Moles/Vol] 32 mmol/L Invalid Interpretation Code 22 - 32 mEq/L ADM SS Creatinine [Mass/Vol] 0.67 mg/dL Invalid Interpretation Code 0.60 - 1.40 mg/dL ADM SS Electrolyte Balance 9.0 mEq/L Invalid Interpretation Code 4.0 - 15.0 mEq/L ADM SS Eosinophils (Bld) [#/Vol] 0.0 103/mcL Invalid Interpretation Code 0.0 - 0.7 10^3/mcL Workflow SS Eosinophils/100 WBC (Bld) 0.2 % Invalid Interpretation Code 0.0 - 6.0 % Workflow SS Erythrocyte distribution width (RBC) [Ratio] 16.3 % Invalid Interpretation Code 11.5 - 15.5 % Workflow SS GFR/1.73 sq M.predicted among blacks MDRD (S/P/Bld) [Vol rate/Area] ml/min/1.73sqm Invalid Interpretation Code ADM SS Comment on above: Interpretive Data: GFR Population mean for , Non- Americans Ages 20-29 = 116 mL/min/1.73 sq.m. Ages 30-39 = 107 mL/min/1.73 sq.m. Ages 40-49 = 99 mL/min/1.73 sq.m. Ages 50-59 = 93 mL/min/1.73 sq.m. Ages 60-69 = 85 mL/min/1.73 sq.m. Ages 70+ = 75 mL/min/1.73 sq.m. Chronic Kidney Disease: Less than 60 mL/min/1.73 square meters End Stage Renal Disease: Less than 15 mL/min/1.73 square meters GFR/1.73 sq M.predicted among non-blacks MDRD (S/P/Bld) [Vol rate/Area] ml/min/1.73sqm Invalid Interpretation Code ADM SS Comment on above: Interpretive Data: GFR Population mean for , Non- Americans Ages 20-29 = 116 mL/min/1.73 sq.m. Ages 30-39 = 107 mL/min/1.73 sq.m. Ages 40-49 = 99 mL/min/1.73 sq.m. Ages 50-59 = 93 mL/min/1.73 sq.m. Ages 60-69 = 85 mL/min/1.73 sq.m. Ages 70+ = 75 mL/min/1.73 sq.m. Chronic Kidney Disease: Less than 60 mL/min/1.73 square meters End Stage Renal Disease: Less than 15 mL/min/1.73 square meters Globulin 3.8 G/dL Invalid Interpretation Code 1.5 - 3.8 G/dL ADM SS Glucose [Mass/Vol] 177 mg/dL Invalid Interpretation Code 70 - 110 mg/dL ADM SS Hematocrit (Bld) [Volume fraction] 44.7 % Invalid Interpretation Code 40.0 - 52.0 % Workflow SS Hemoglobin (Bld) [Mass/Vol] 14.7 G/dL Invalid Interpretation Code 13.0 - 17.5 G/dL Workflow SS Lymphocytes (Bld) [#/Vol] 1.2 103/mcL Invalid Interpretation Code 0.9 - 4.3 10^3/mcL Workflow SS Lymphocytes/100 WBC (Bld) 12.9 % Invalid Interpretation Code 20.0 - 40.0 % Workflow SS Magnesium [Mass/Vol] 2.0 mg/dL Invalid Interpretation Code 1.6 - 2.4 mg/dL ADM SS MCH (RBC) [Entitic mass] 29.2 pg Invalid Interpretation Code 27.0 - 33.0 pg Workflow SS MCHC 32.8 G/dL Invalid Interpretation Code 32.0 - 36.0 G/dL Workflow SS MCV (RBC) [Entitic vol] 88.9 fL Invalid Interpretation Code 81.0 - 100.0 fL Workflow SS Monocytes (Bld) [#/Vol] 0.4 103/mcL Invalid Interpretation Code 0.1 - 1.4 10^3/mcL AH Workflow SS Monocytes/100 WBC (Bld) 4.2 % Invalid Interpretation Code 2.0 - 13.0 % AH Workflow SS Neutrophils (Bld) [#/Vol] 7.4 103/mcL Invalid Interpretation Code 2.3 - 8.1 10^3/mcL AH Workflow SS Neutrophils/100 WBC (Bld) 82.2 % Invalid Interpretation Code 50.0 - 75.0 % AH Workflow SS Phosphate [Mass/Vol] 4.9 mg/dL Invalid Interpretation Code 2.4 - 5.1 mg/dL ADM SS Comment on above: Interpretive Data: * *Note - New Reference Range in effect 20 Platelet mean volume (Bld) [Entitic vol] 9.2 fL Invalid Interpretation Code 6.4 - 10.5 fL Workflow SS Platelets (Bld) [#/Vol] 238 103/mcL Invalid Interpretation Code 150 - 450 10^3/mcL AH Workflow SS Potassium [Moles/Vol] 4.6 mmol/L Invalid Interpretation Code 3.5 - 5.0 mEq/L ADM SS Comment on above: Result Comment: Spec imen slightly hemolyzed. Protein [Mass/Vol] 7.3 G/dL Invalid Interpretation Code 5.7 - 8.2 G/dL ADM SS Comment on above: Interpretive Data: * *Note - New Reference Range in effect 20 RBC (Bld) [#/Vol] 5.03 106/mcL Invalid Interpretation Code 4.50 - 6.00 10^6/mcL Workflow SS Sodium [Moles/Vol] 140 mmol/L Invalid Interpretation Code 136 - 145 mEq/L ADM SS Urea nitrogen [Mass/Vol] 19.0 mg/dL Invalid Interpretation Code 8.0 - 22.0 mg/dL AH ADM SS Urea nitrogen/Creatinine [Mass ratio] 28.4 ratio Invalid Interpretation Code 10.0 - 22.0 ratio ADM SS WBC (Bld) [#/Vol] 9.0 103/mcL Invalid Interpretation Code 4.5 - 10.8 10^3/mcL Workflow SS MGon 05-10-2023 Magnesium [Mass/Vol] 2.0 mg/dL Normal 1.6-2.4 [facility] ([place] Comment on above: Performed By: #### G FR, MG, ANEU, CMP, ADIFF, CBC, PHOS ####[address] [place] [address] PHOSon 05-10-2023 Phosphate [Mass/Vol] 4.9 mg/dL Normal 2.4-5.1 [facility] ([place]) Comment on above: Result Comment: No te - New Reference Range in effect 20 Performed By: #### G FR, MG, ANEU, CMP, ADIFF, CBC, PHOS ####[address] [address] .Auto Diffon 05-09-2023 Basophil, Absolute 0.1 10 3/mcL Normal 0.0-0.3 [facility] ([place]) Comment on above: Performed By: #### C MP, ANEU, CBC, GFR, ADIFF, MG ####[address] [address] Basophils/100 WBC (Bld) 0.6 % Normal 0.0-2.5 A [facility] ([place] Comment on above: Performed By: #### C MP, ANEU, CBC, GFR, ADIFF, MG ####[address] [address] Eosinophil, Absolute 0.0 10 3/mcL Normal 0.0-0.7 [facility] ([place] Comment on above: Performed By: #### C MP, ANEU, CBC, GFR, ADIFF, MG ####[address] [address] Eosinophils/100 WBC (Bld) 0.0 % Normal 0.0-6.0 [facility] ([place] Comment on above: Performed By: #### C MP, ANEU, CBC, GFR, ADIFF, MG ####[address] [address] Lymphocyte, Absolute 0.5 10 3/mcL Low 0.9-4.3 [facility] ([place] Comment on above: Performed By: #### C MP, ANEU, CBC, GFR, ADIFF, MG ####[address] [address] Lymphocytes/100 WBC (Bld) 6.2 % Low 20.0-40.0 [facility] ([place] Comment on above: Performed By: #### C MP, ANEU, CBC, GFR, ADIFF, MG ####[address] [address] Monocyte, Absolute 0.3 10 3/mcL Normal 0.1-1.4 [facility] ([place] Comment on above: Performed By: #### C MP, ANEU, CBC, GFR, ADIFF, MG ####[address] [address] Monocytes/100 WBC (Bld) 3.0 % Normal 2.0-13.0 A [facility] ([place] Comment on above: Performed By: #### C MP, ANEU, CBC, GFR, ADIFF, MG ####[address] [address] Neutrophils/100 WBC (Bld) 90.2 % High 50.0-75.0 [facility] ([place] Comment on above: Performed By: #### C MP, ANEU, CBC, GFR, ADIFF, MG ####[address] [address] .GFRon 05-09-2023 GFR Non- >60 Normal [facility] ([place]) Comment on above: Result Comment: GFR Population mean for , Non- Americans Ages 20-29 = 116 mL/min/1.73 sq.m. Ages 30-39 = 107 mL/min/1.73 sq.m. Ages 40-49 = 99 mL/min/1.73 sq.m. Ages 50-59 = 93 mL/min/1.73 sq.m. Ages 60-69 = 85 mL/min/1.73 sq.m. Ages 70+ = 75 mL/min/1.73 sq.m.Chronic Kidney Disease: Less than 60 mL/min/1.73 square metersEnd Stage Renal Disease: Less than 15 mL/min/1.73 square meters Performed By: #### C MP, ANEU, CBC, GFR, ADIFF, MG ####[address] [address] GFR >60 Normal [facility] ([place]) Comment on above: Result Comment: GFR Population mean for , Non- Americans Ages 20-29 = 116 mL/min/1.73 sq.m. Ages 30-39 = 107 mL/min/1.73 sq.m. Ages 40-49 = 99 mL/min/1.73 sq.m. Ages 50-59 = 93 mL/min/1.73 sq.m. Ages 60-69 = 85 mL/min/1.73 sq.m. Ages 70+ = 75 mL/min/1.73 sq.m.Chronic Kidney Disease: Less than 60 mL/min/1.73 square metersEnd Stage Renal Disease: Less than 15 mL/min/1.73 square meters Performed By: #### C MP, ANEU, CBC, GFR, ADIFF, MG ####[place] [address] .NEUABSon 05-09-2023 Neutrophil, Absolute 7.7 10 3/mcL Normal 2.3-8.1 [facility] ([place]) Comment on above: Performed By: #### C MP, ANEU, CBC, GFR, ADIFF, MG ####[place] [address] BGon 05-09-2023 Barometric Pressure 733 mmHg Normal [facility] ([place]) Comment on above: Performed By: #### Mohamud G ####[place] [address] Base excess Calc (Bld) [Moles/Vol] 3.4 mmol/L Normal [facility] ([place]) Comment on above: Performed By: #### B G ####[place] [address] CO2 [Moles/Vol] 30.4 mmol/L High 22.0-30.0 [facility] ([place]) Comment on above: Performed By: #### B G ####[place] [id number] HCO3 (Bld) [Moles/Vol] 29.0 mmol/L Normal 21.0-29.0 A [facility], [facility] ([place]) Comment on above: Performed By: #### B G ####[place] [id number] Oxygen (Bld) [Partial pressure] 80.6 mm[Hg] Normal 74.0-108.0 [facility] ([place]) Comment on above: Performed By: #### Mohamud G ####[place] [address] Oxygen saturation in Blood 95.9 % Normal 92.0-96.0 [facility] ([place]) Comment on above: Performed By: #### Mohamud G ####[place] [address] pCO2 47.2 mmHg High 32.0-46.0 [facility] ([place]) Comment on above: Performed By: #### Mohamud G ####[place] [id number] pH (Bld) 7.406 [pH] Normal 7.380-7.46 0 [facility] ([place]) Comment on above: Performed By: #### Mohamud G ####[place] [address] CBCon 05-09-2023 Erythrocyte distribution width (RBC) [Ratio] 15.6 % High 11.5-15.5 [facility] ([place]) Comment on above: Performed By: #### C MP, ANEU, CBC, GFR, ADIFF, MG ####[place] [address] Hematocrit (Bld) [Volume fraction] 41.5 % Normal 40.0-52.0 [facility] ([place]) Comment on above: Performed By: #### C MP, ANEU, CBC, GFR, ADIFF, MG ####[place] [address] Hgb 13.7 G/dL Normal 13.0-17.5 [facility] ([place]) Comment on above: Performed By: #### C MP, ANEU, CBC, GFR, ADIFF, MG ####[place] [address] MCH (RBC) [Entitic mass] 29.1 pg Normal 27.0-33.0 [facility] ([place]) Comment on above: Performed By: #### C MP, ANEU, CBC, GFR, ADIFF, MG ####[place] [address] MCHC 32.9 G/dL Normal 32.0-36.0 [facility] ([place]) Comment on above: Performed By: #### C MP, ANEU, CBC, GFR, ADIFF, MG ####[place] [address] MCV (RBC) [Entitic vol] 88.3 fL Normal 81.0-100.0 A [facility] ([place] Comment on above: Performed By: #### C MP, ANEU, CBC, GFR, ADIFF, MG ####[place] [address] Platelet 190 10 3/mcL Normal 150-450 [facility] ([place]) Comment on above: Performed By: #### C MP, ANEU, CBC, GFR, ADIFF, MG ####[place] [address] Platelet mean volume (Bld) [Entitic vol] 9.0 fL Normal 6.4-10.5 [facility] ([place]) Comment on above: Performed By: #### C MP, ANEU, CBC, GFR, ADIFF, MG ####[place] [address] RBC 4.69 10 6/mcL Normal 4.50-6.00 [facility] ([place]) Comment on above: Performed By: #### C MP, ANEU, CBC, GFR, ADIFF, MG ####[place] [address] WBC 8.5 10 3/mcL Normal 4.5-10.8 [facility] ([place]) Comment on above: Performed By: #### C MP, ANEU, CBC, GFR, ADIFF, MG ####[place] [address] CMPon 05-09-2023 Albumin Level 2.8 G/dL Low 3.2-4.8 [facility] ([place]) Comment on above: Performed By: #### C MP, ANEU, CBC, GFR, ADIFF, MG ####[place] [address] Albumin/Globulin [Mass ratio] 0.8 {ratio} Low 0.9-1.6 [facility] ([place]) Comment on above: Performed By: #### C MP, ANEU, CBC, GFR, ADIFF, MG ####[place] [address] ALP [Catalytic activity/Vol] 108 U/L Normal 38-126 [facility] ([place]) Comment on above: Performed By: #### C MP, ANEU, CBC, GFR, ADIFF, MG ####[place] [address] ALT [Catalytic activity/Vol] 82 U/L High 12-55 [facility] ([place]) Comment on above: Performed By: #### C MP, ANEU, CBC, GFR, ADIFF, MG ####[place] [address] AST [Catalytic activity/Vol] 29 U/L Normal 8-34 [facility] ([place]) Comment on above: Performed By: #### C MP, ANEU, CBC, GFR, ADIFF, MG ####[place] [address] Bili Total 0.60 mg/dL Normal 0.20-1.20 [facility] ([place]) Comment on above: Result Comment: Use of this assay is not recommended for patients undergoing treatment with eltrombopag due to the potential for falsely elevated results. Performed By: #### C MP, ANEU, CBC, GFR, ADIFF, MG ####[place] [address] BUN/Creatinine Ratio 33.8 ratio High 10.0-22.0 [facility] ([place]) Comment on above: Performed By: #### C MP, ANEU, CBC, GFR, ADIFF, MG ####[place] [address] Calcium [Mass/Vol] 9.3 mg/dL Normal 8.7-10.4 [facility] ([place]) Comment on above: Performed By: #### C MP, ANEU, CBC, GFR, ADIFF, MG ####[address] [address] Chloride [Moles/Vol] 102 mmol/L Normal 98-110 [facility] ([place]) Comment on above: Performed By: #### C MP, ANEU, CBC, GFR, ADIFF, MG ####[address] [address] CO2 [Moles/Vol] 30 mmol/L Normal 22-32 [facility] ([place]) Comment on above: Performed By: #### C MP, ANEU, CBC, GFR, ADIFF, MG ####[place] [address] Creatinine [Mass/Vol] 0.68 mg/dL Normal 0.60-1.40 [facility] ([place]) Comment on above: Performed By: #### C MP, ANEU, CBC, GFR, ADIFF, MG ####[place] [address] Electrolyte Balance 5.0 mEq/L Normal 4.0-15.0 [facility] ([place]) Comment on above: Performed By: #### C MP, ANEU, CBC, GFR, ADIFF, MG ####[place] [address] Globulin 3.6 G/dL Normal 1.5-3.8 [facility] ([place]) Comment on above: Performed By: #### C MP, ANEU, CBC, GFR, ADIFF, MG ####[place] [address] Glucose [Mass/Vol] 264 mg/dL High 70-110 [facility] ([place]) Comment on above: Performed By: #### C MP, ANEU, CBC, GFR, ADIFF, MG ####[place] [address] Potassium [Moles/Vol] 4.7 mmol/L Normal 3.5-5.0 [facility] ([place]) Comment on above: Result Comment: Spec imen slightly hemolyzed. Performed By: #### C MP, ANEU, CBC, GFR, ADIFF, MG ####[address] [address] Sodium [Moles/Vol] 137 mmol/L Normal 136-145 [facility] ([place]) Comment on above: Performed By: #### C MP, ANEU, CBC, GFR, ADIFF, MG ####[place] [address] Total Protein 6.4 G/dL Normal 5.7-8.2 [facility] ([place]) Comment on above: Result Comment: No te - New Reference Range in effect 20 Performed By: #### C MP, ANEU, CBC, GFR, ADIFF, MG ####[place] [address] Urea nitrogen [Mass/Vol] 23.0 mg/dL High 8.0-22.0 [facility] ([place]) Comment on above: Performed By: #### C MP, ANEU, CBC, GFR, ADIFF, MG ####[place] [address] LABORATORYOrdered By: Cadence Borjas on 05-09-2023 Barometric Pressure 733 mm[Hg] Invalid Interpretation Code Auto Chem SS Base excess Calc (Bld) [Moles/Vol] 3.4 mmol/L Invalid Interpretation Code AH Auto Chem SS CO2 (Bld) [Partial pressure] 47.2 mm[Hg] Invalid Interpretation Code 32.0 - 46.0 mm Hg Auto Chem SS CO2 [Moles/Vol] 30.4 mmol/L Invalid Interpretation Code 22.0 - 30.0 mmol/L AH Auto Chem SS HCO3 (Bld) [Moles/Vol] 29.0 mmol/L Invalid Interpretation Code 21.0 - 29.0 mmol/L AH Auto Chem SS Oxygen (Bld) [Partial pressure] 80.6 mm[Hg] Invalid Interpretation Code 74.0 - 108.0 mm Hg AH Auto Chem SS pH (Bld) 7.406 [pH] Invalid Interpretation Code 7.380 - 7.460 Auto Chem SS LABORATORYOrdered By: SYSTEM SYSTEM on 05-09-2023 Albumin BCP dye [Mass/Vol] 2.8 G/dL Invalid Interpretation Code 3.2 - 4.8 G/dL AH ADM SS Albumin/Globulin [Mass ratio] 0.8 {ratio} Invalid Interpretation Code 0.9 - 1.6 ratio ADM SS ALP [Catalytic activity/Vol] 108 U/L Invalid Interpretation Code 38 - 126 U/L ADM SS ALT No additional P-5'-P [Catalytic activity/Vol] 82 U/L Invalid Interpretation Code 12 - 55 U/L ADM SS AST [Catalytic activity/Vol] 29 U/L Invalid Interpretation Code 8 - 34 U/L ADM SS Basophils (Bld) [#/Vol] 0.1 103/mcL Invalid Interpretation Code 0.0 - 0.3 10^3/mcL Workflow SS Basophils/100 WBC (Bld) 0.6 % Invalid Interpretation Code 0.0 - 2.5 % Workflow SS Bilirubin [Mass/Vol] 0.60 mg/dL Invalid Interpretation Code 0.20 - 1.20 mg/dL ADM SS Comment on above: Interpretive Data: U se of this assay is not recommended for patients undergoing treatment with eltrombopag due to the potential for falsely elevated results. Calcium [Mass/Vol] 9.3 mg/dL Invalid Interpretation Code 8.7 - 10.4 mg/dL ADM SS Chloride [Moles/Vol] 102 mmol/L Invalid Interpretation Code 98 - 110 mEq/L ADM SS CO2 [Moles/Vol] 30 mmol/L Invalid Interpretation Code 22 - 32 mEq/L ADM SS Creatinine [Mass/Vol] 0.68 mg/dL Invalid Interpretation Code 0.60 - 1.40 mg/dL ADM SS Electrolyte Balance 5.0 mEq/L Invalid Interpretation Code 4.0 - 15.0 mEq/L ADM SS Eosinophils (Bld) [#/Vol] 0.0 103/mcL Invalid Interpretation Code 0.0 - 0.7 10^3/mcL Workflow SS Eosinophils/100 WBC (Bld) 0.0 % Invalid Interpretation Code 0.0 - 6.0 % Workflow SS Erythrocyte distribution width (RBC) [Ratio] 15.6 % Invalid Interpretation Code 11.5 - 15.5 % Workflow SS GFR/1.73 sq M.predicted among blacks MDRD (S/P/Bld) [Vol rate/Area] ml/min/1.73sqm Invalid Interpretation Code ADM SS Comment on above: Interpretive Data: GFR Population mean for , Non- Americans Ages 20-29 = 116 mL/min/1.73 sq.m. Ages 30-39 = 107 mL/min/1.73 sq.m. Ages 40-49 = 99 mL/min/1.73 sq.m. Ages 50-59 = 93 mL/min/1.73 sq.m. Ages 60-69 = 85 mL/min/1.73 sq.m. Ages 70+ = 75 mL/min/1.73 sq.m. Chronic Kidney Disease: Less than 60 mL/min/1.73 square meters End Stage Renal Disease: Less than 15 mL/min/1.73 square meters GFR/1.73 sq M.predicted among non-blacks MDRD (S/P/Bld) [Vol rate/Area] ml/min/1.73sqm Invalid Interpretation Code ADM SS Comment on above: Interpretive Data: GFR Population mean for , Non- Americans Ages 20-29 = 116 mL/min/1.73 sq.m. Ages 30-39 = 107 mL/min/1.73 sq.m. Ages 40-49 = 99 mL/min/1.73 sq.m. Ages 50-59 = 93 mL/min/1.73 sq.m. Ages 60-69 = 85 mL/min/1.73 sq.m. Ages 70+ = 75 mL/min/1.73 sq.m. Chronic Kidney Disease: Less than 60 mL/min/1.73 square meters End Stage Renal Disease: Less than 15 mL/min/1.73 square meters Globulin 3.6 G/dL Invalid Interpretation Code 1.5 - 3.8 G/dL ADM SS Glucose [Mass/Vol] 264 mg/dL Invalid Interpretation Code 70 - 110 mg/dL ADM SS Hematocrit (Bld) [Volume fraction] 41.5 % Invalid Interpretation Code 40.0 - 52.0 % Workflow SS Hemoglobin (Bld) [Mass/Vol] 13.7 G/dL Invalid Interpretation Code 13.0 - 17.5 G/dL Workflow SS Lymphocytes (Bld) [#/Vol] 0.5 103/mcL Invalid Interpretation Code 0.9 - 4.3 10^3/mcL Workflow SS Lymphocytes/100 WBC (Bld) 6.2 % Invalid Interpretation Code 20.0 - 40.0 % Workflow SS Magnesium [Mass/Vol] 1.8 mg/dL Invalid Interpretation Code 1.6 - 2.4 mg/dL ADM SS MCH (RBC) [Entitic mass] 29.1 pg Invalid Interpretation Code 27.0 - 33.0 pg AH Workflow SS MCHC 32.9 G/dL Invalid Interpretation Code 32.0 - 36.0 G/dL AH Workflow SS MCV (RBC) [Entitic vol] 88.3 fL Invalid Interpretation Code 81.0 - 100.0 fL AH Workflow SS Monocytes (Bld) [#/Vol] 0.3 103/mcL Invalid Interpretation Code 0.1 - 1.4 10^3/mcL AH Workflow SS Monocytes/100 WBC (Bld) 3.0 % Invalid Interpretation Code 2.0 - 13.0 % AH Workflow SS Neutrophils (Bld) [#/Vol] 7.7 103/mcL Invalid Interpretation Code 2.3 - 8.1 10^3/mcL AH Workflow SS Neutrophils/100 WBC (Bld) 90.2 % Invalid Interpretation Code 50.0 - 75.0 % Workflow SS Platelet mean volume (Bld) [Entitic vol] 9.0 fL Invalid Interpretation Code 6.4 - 10.5 fL Workflow SS Platelets (Bld) [#/Vol] 190 103/mcL Invalid Interpretation Code 150 - 450 10^3/mcL Workflow SS Potassium [Moles/Vol] 4.7 mmol/L Invalid Interpretation Code 3.5 - 5.0 mEq/L ADM SS Comment on above: Result Comment: Spec imen slightly hemolyzed. Protein [Mass/Vol] 6.4 G/dL Invalid Interpretation Code 5.7 - 8.2 G/dL ADM SS Comment on above: Interpretive Data: * *Note - New Reference Range in effect 20 RBC (Bld) [#/Vol] 4.69 106/mcL Invalid Interpretation Code 4.50 - 6.00 10^6/mcL Workflow SS Sodium [Moles/Vol] 137 mmol/L Invalid Interpretation Code 136 - 145 mEq/L ADM SS Urea nitrogen [Mass/Vol] 23.0 mg/dL Invalid Interpretation Code 8.0 - 22.0 mg/dL ADM SS Urea nitrogen/Creatinine [Mass ratio] 33.8 ratio Invalid Interpretation Code 10.0 - 22.0 ratio ADM SS WBC (Bld) [#/Vol] 8.5 103/mcL Invalid Interpretation Code 4.5 - 10.8 10^3/mcL AH Workflow SS MGon 05-09-2023 Magnesium [Mass/Vol] 1.8 mg/dL Normal 1.6-2.4 [facility] ([place]) Comment on above: Performed By: #### C MP, ANEU, CBC, GFR, ADIFF, MG ####[address] [address] XR CHEST 1 VIEWon 05-09-2023 XR CHEST 1 VIEW Normal [facility] ([place]) .Auto Diffon 05-08-2023 Basophil, Absolute 0.0 10 3/mcL Normal 0.0-0.3 [facility] ([place]) Comment on above: Performed By: #### C MP, CBC, ADIFF, ANEU, GFR, MG ####[address] [address] Basophils/100 WBC (Bld) 0.1 % Normal 0.0-2.5 A [facility] ([place] Comment on above: Performed By: #### C MP, CBC, ADIFF, ANEU, GFR, MG ####[address] [address] Eosinophil, Absolute 0.0 10 3/mcL Normal 0.0-0.7 [facility] ([place]) Comment on above: Performed By: #### C MP, CBC, ADIFF, ANEU, GFR, MG ####[address] [address] Eosinophils/100 WBC (Bld) 0.0 % Normal 0.0-6.0 [facility] ([place]) Comment on above: Performed By: #### C MP, CBC, ADIFF, ANEU, GFR, MG ####[address] [address] Lymphocyte, Absolute 0.5 10 3/mcL Low 0.9-4.3 [facility] ([place]) Comment on above: Performed By: #### C MP, CBC, ADIFF, ANEU, GFR, MG ####[address] [address] Lymphocytes/100 WBC (Bld) 8.0 % Low 20.0-40.0 [facility] ([place]) Comment on above: Performed By: #### C MP, CBC, ADIFF, ANEU, GFR, MG ####[address] [address] Monocyte, Absolute 0.3 10 3/mcL Normal 0.1-1.4 [facility] ([place]) Comment on above: Performed By: #### C MP, CBC, ADIFF, ANEU, GFR, MG ####[address] [address] Monocytes/100 WBC (Bld) 3.9 % Normal 2.0-13.0 A [facility] ([place] Comment on above: Performed By: #### C MP, CBC, ADIFF, ANEU, GFR, MG ####[address] [address] Neutrophils/100 WBC (Bld) 88.0 % High 50.0-75.0 [facility] ([place]) Comment on above: Performed By: #### C MP, CBC, ADIFF, ANEU, GFR, MG ####[address] [address] .GFRon 05-08-2023 GFR >60 Normal [facility] ([place] Comment on above: Result Comment: GFR Population mean for , Non- Americans Ages 20-29 = 116 mL/min/1.73 sq.m. Ages 30-39 = 107 mL/min/1.73 sq.m. Ages 40-49 = 99 mL/min/1.73 sq.m. Ages 50-59 = 93 mL/min/1.73 sq.m. Ages 60-69 = 85 mL/min/1.73 sq.m. Ages 70+ = 75 mL/min/1.73 sq.m.Chronic Kidney Disease: Less than 60 mL/min/1.73 square metersEnd Stage Renal Disease: Less than 15 mL/min/1.73 square meters Performed By: #### C MP, CBC, ADIFF, ANEU, GFR, MG ####[address] [address] GFR Non- >60 Normal [facility] ([place]) Comment on above: Result Comment: GFR Population mean for , Non- Americans Ages 20-29 = 116 mL/min/1.73 sq.m. Ages 30-39 = 107 mL/min/1.73 sq.m. Ages 40-49 = 99 mL/min/1.73 sq.m. Ages 50-59 = 93 mL/min/1.73 sq.m. Ages 60-69 = 85 mL/min/1.73 sq.m. Ages 70+ = 75 mL/min/1.73 sq.m.Chronic Kidney Disease: Less than 60 mL/min/1.73 square metersEnd Stage Renal Disease: Less than 15 mL/min/1.73 square meters Performed By: #### C MP, CBC, ADIFF, ANEU, GFR, MG ####[address] [address] .NEUABSon 05-08-2023 Neutrophil, Absolute 5.7 10 3/mcL Normal 2.3-8.1 [facility] ([place] Comment on above: Performed By: #### C MP, CBC, ADIFF, ANEU, GFR, MG ####[address] [address] CBCon 05-08-2023 Erythrocyte distribution width (RBC) [Ratio] 16.2 % High 11.5-15.5 [facility] ([place] Comment on above: Performed By: #### C MP, CBC, ADIFF, ANEU, GFR, MG ####[place] [address] Hematocrit (Bld) [Volume fraction] 41.0 % Normal 40.0-52.0 [facility] ([place]) Comment on above: Performed By: #### C MP, CBC, ADIFF, ANEU, GFR, MG ####[address] [address] Hgb 13.3 G/dL Normal 13.0-17.5 [facility] ([place] Comment on above: Performed By: #### C MP, CBC, ADIFF, ANEU, GFR, MG ####[place] [address] MCH (RBC) [Entitic mass] 28.9 pg Normal 27.0-33.0 [facility] ([place]) Comment on above: Performed By: #### C MP, CBC, ADIFF, ANEU, GFR, MG ####[place] [address] MCHC 32.4 G/dL Normal 32.0-36.0 [facility] ([place] Comment on above: Performed By: #### C MP, CBC, ADIFF, ANEU, GFR, MG ####[place] [address] MCV (RBC) [Entitic vol] 89.1 fL Normal 81.0-100.0 A [facility] ([place] Comment on above: Performed By: #### C MP, CBC, ADIFF, ANEU, GFR, MG ####[place] [address] Platelet 174 10 3/mcL Normal 150-450 [facility] ([place]) Comment on above: Performed By: #### C MP, CBC, ADIFF, ANEU, GFR, MG ####[place] [address] Platelet mean volume (Bld) [Entitic vol] 8.9 fL Normal 6.4-10.5 [facility] ([place]) Comment on above: Performed By: #### C MP, CBC, ADIFF, ANEU, GFR, MG ####[place] [address] RBC 4.60 10 6/mcL Normal 4.50-6.00 [facility] ([place] Comment on above: Performed By: #### C MP, CBC, ADIFF, ANEU, GFR, MG ####[place] [address] WBC 6.5 10 3/mcL Normal 4.5-10.8 [facility] ([place]) Comment on above: Performed By: #### C MP, CBC, ADIFF, ANEU, GFR, MG ####[place] [address] CMPon 05-08-2023 Albumin Level 2.8 G/dL Low 3.2-4.8 [facility] ([place]) Comment on above: Performed By: #### C MP, CBC, ADIFF, ANEU, GFR, MG ####[place] [address] Albumin/Globulin [Mass ratio] 0.8 {ratio} Low 0.9-1.6 [facility] ([place] Comment on above: Performed By: #### C MP, CBC, ADIFF, ANEU, GFR, MG ####[place] [id number] ALP [Catalytic activity/Vol] 121 U/L Normal 38-126 [facility] ([place] Comment on above: Performed By: #### C MP, CBC, ADIFF, ANEU, GFR, MG ####[place] [id number] ALT [Catalytic activity/Vol] 106 U/L High 12-55 [facility] ([place] Comment on above: Performed By: #### C MP, CBC, ADIFF, ANEU, GFR, MG ####[place] [id number] AST [Catalytic activity/Vol] 30 U/L Normal 8-34 [facility] ([place] Comment on above: Performed By: #### C MP, CBC, ADIFF, ANEU, GFR, MG ####[place] [address] Bili Total 0.60 mg/dL Normal 0.20-1.20 [facility] ([place] Comment on above: Result Comment: Use of this assay is not recommended for patients undergoing treatment with eltrombopag due to the potential for falsely elevated results. Performed By: #### C MP, CBC, ADIFF, ANEU, GFR, MG ####[place] [address] BUN/Creatinine Ratio 30.6 ratio High 10.0-22.0 [facility] ([place] Comment on above: Performed By: #### C MP, CBC, ADIFF, ANEU, GFR, MG ####[place] [address] Calcium [Mass/Vol] 8.7 mg/dL Normal 8.7-10.4 [facility] ([place]) Comment on above: Performed By: #### C MP, CBC, ADIFF, ANEU, GFR, MG ####[address] [address] Chloride [Moles/Vol] 103 mmol/L Normal 98-110 [facility] ([place] Comment on above: Performed By: #### C MP, CBC, ADIFF, ANEU, GFR, MG ####[address] [address] CO2 [Moles/Vol] 26 mmol/L Normal 22-32 [facility] ([place] Comment on above: Performed By: #### C MP, CBC, ADIFF, ANEU, GFR, MG ####[place] [address] Creatinine [Mass/Vol] 0.62 mg/dL Normal 0.60-1.40 [facility] ([place]) Comment on above: Performed By: #### C MP, CBC, ADIFF, ANEU, GFR, MG ####[place] [address] Electrolyte Balance 6.0 mEq/L Normal 4.0-15.0 [facility] ([place]) Comment on above: Performed By: #### C MP, CBC, ADIFF, ANEU, GFR, MG ####[address] [address] Globulin 3.4 G/dL Normal 1.5-3.8 [facility] ([place]) Comment on above: Performed By: #### C MP, CBC, ADIFF, ANEU, GFR, MG ####[address] [address] Glucose [Mass/Vol] 292 mg/dL High 70-110 [facility] ([place] Comment on above: Performed By: #### C MP, CBC, ADIFF, ANEU, GFR, MG ####[address] [address] Potassium [Moles/Vol] 4.7 mmol/L Normal 3.5-5.0 [facility] ([place] Comment on above: Result Comment: Spec imen slightly hemolyzed. Performed By: #### C MP, CBC, ADIFF, ANEU, GFR, MG ####[place] [id number] [address] [place] [address] Sodium [Moles/Vol] 135 mmol/L Low 136-145 [facility] ([place]) Comment on above: Performed By: #### C MP, CBC, ADIFF, ANEU, GFR, MG ####[place] [id number] [place] [address] Total Protein 6.2 G/dL Normal 5.7-8.2 [facility] ([place]) Comment on above: Result Comment: No te - New Reference Range in effect 20 Performed By: #### C MP, CBC, ADIFF, ANEU, GFR, MG ####[place] [id number] [place] [address] Urea nitrogen [Mass/Vol] 19.0 mg/dL Normal 8.0-22.0 [facility] ([place]) Comment on above: Performed By: #### C MP, CBC, ADIFF, ANEU, GFR, MG ####[address] [address] LABORATORYOrdered By: Lucinda camacho on 05-08-2023 Base excess Calc (BldV) [Moles/Vol] -3.0000 mmol/L Invalid Interpretation Code -3.0 - 3.0 mmol/L Auto Chem SS CO2 (BldV) [Partial pressure] 40.2 mm[Hg] Invalid Interpretation Code 41.0 - 51.0 mm Hg AH Auto Chem SS CO2 Calc (BldV) [Moles/Vol] 23.4 mmol/L Invalid Interpretation Code 22.0 - 32.0 mmol/L AH Auto Chem SS HCO3 (Bld) [Moles/Vol] 22.2 mmol/L Invalid Interpretation Code 21.0 - 30.0 mmol/L AH Auto Chem SS Oxygen (BldV) [Partial pressure] 149.7 mm[Hg] Invalid Interpretation Code 35.0 - 40.0 mm Hg AH Auto Chem SS pH (BldV) 7.360 [pH] Invalid Interpretation Code 7.380 - 7.460 AH Auto Chem SS LABORATORYOrdered By: SYSTEM SYSTEM on 05-08-2023 Albumin BCP dye [Mass/Vol] 2.8 G/dL Invalid Interpretation Code 3.2 - 4.8 G/dL AH ADM SS Albumin/Globulin [Mass ratio] 0.8 {ratio} Invalid Interpretation Code 0.9 - 1.6 ratio AH ADM SS ALP [Catalytic activity/Vol] 121 U/L Invalid Interpretation Code 38 - 126 U/L AH ADM SS ALT No additional P-5'-P [Catalytic activity/Vol] 106 U/L Invalid Interpretation Code 12 - 55 U/L AH ADM SS AST [Catalytic activity/Vol] 30 U/L Invalid Interpretation Code 8 - 34 U/L AH ADM SS Basophils (Bld) [#/Vol] 0.0 103/mcL Invalid Interpretation Code 0.0 - 0.3 10^3/mcL AH Workflow SS Basophils/100 WBC (Bld) 0.1 % Invalid Interpretation Code 0.0 - 2.5 % Workflow SS Bilirubin [Mass/Vol] 0.60 mg/dL Invalid Interpretation Code 0.20 - 1.20 mg/dL ADM SS Comment on above: Interpretive Data: U se of this assay is not recommended for patients undergoing treatment with eltrombopag due to the potential for falsely elevated results. Calcium [Mass/Vol] 8.7 mg/dL Invalid Interpretation Code 8.7 - 10.4 mg/dL ADM SS Chloride [Moles/Vol] 103 mmol/L Invalid Interpretation Code 98 - 110 mEq/L ADM SS CO2 [Moles/Vol] 26 mmol/L Invalid Interpretation Code 22 - 32 mEq/L ADM SS Creatinine [Mass/Vol] 0.62 mg/dL Invalid Interpretation Code 0.60 - 1.40 mg/dL ADM SS Electrolyte Balance 6.0 mEq/L Invalid Interpretation Code 4.0 - 15.0 mEq/L ADM SS Eosinophils (Bld) [#/Vol] 0.0 103/mcL Invalid Interpretation Code 0.0 - 0.7 10^3/mcL Workflow SS Eosinophils/100 WBC (Bld) 0.0 % Invalid Interpretation Code 0.0 - 6.0 % Workflow SS Erythrocyte distribution width (RBC) [Ratio] 16.2 % Invalid Interpretation Code 11.5 - 15.5 % Workflow SS GFR/1.73 sq M.predicted among blacks MDRD (S/P/Bld) [Vol rate/Area] ml/min/1.73sqm Invalid Interpretation Code AH ADM SS Comment on above: Interpretive Data: GFR Population mean for , Non- Americans Ages 20-29 = 116 mL/min/1.73 sq.m. Ages 30-39 = 107 mL/min/1.73 sq.m. Ages 40-49 = 99 mL/min/1.73 sq.m. Ages 50-59 = 93 mL/min/1.73 sq.m. Ages 60-69 = 85 mL/min/1.73 sq.m. Ages 70+ = 75 mL/min/1.73 sq.m. Chronic Kidney Disease: Less than 60 mL/min/1.73 square meters End Stage Renal Disease: Less than 15 mL/min/1.73 square meters GFR/1.73 sq M.predicted among non-blacks MDRD (S/P/Bld) [Vol rate/Area] ml/min/1.73sqm Invalid Interpretation Code [facility] Comment on above: Interpretive Data: GFR Population mean for , Non- Americans Ages 20-29 = 116 mL/min/1.73 sq.m. Ages 30-39 = 107 mL/min/1.73 sq.m. Ages 40-49 = 99 mL/min/1.73 sq.m. Ages 50-59 = 93 mL/min/1.73 sq.m. Ages 60-69 = 85 mL/min/1.73 sq.m. Ages 70+ = 75 mL/min/1.73 sq.m. Chronic Kidney Disease: Less than 60 mL/min/1.73 square meters End Stage Renal Disease: Less than 15 mL/min/1.73 square meters Globulin 3.4 G/dL Invalid Interpretation Code 1.5 - 3.8 G/dL ADM Glucose [Mass/Vol] 292 mg/dL Invalid Interpretation Code 70 - 110 mg/dL ADM SS Hematocrit (Bld) [Volume fraction] 41.0 % Invalid Interpretation Code 40.0 - 52.0 % Workflow SS Hemoglobin (Bld) [Mass/Vol] 13.3 G/dL Invalid Interpretation Code 13.0 - 17.5 G/dL Workflow SS Lymphocytes (Bld) [#/Vol] 0.5 103/mcL Invalid Interpretation Code 0.9 - 4.3 10^3/mcL Workflow SS Lymphocytes/100 WBC (Bld) 8.0 % Invalid Interpretation Code 20.0 - 40.0 % AH Workflow SS Magnesium [Mass/Vol] 2.0 mg/dL Invalid Interpretation Code 1.6 - 2.4 mg/dL ADM SS MCH (RBC) [Entitic mass] 28.9 pg Invalid Interpretation Code 27.0 - 33.0 pg AH Workflow SS MCHC 32.4 G/dL Invalid Interpretation Code 32.0 - 36.0 G/dL AH Workflow SS MCV (RBC) [Entitic vol] 89.1 fL Invalid Interpretation Code 81.0 - 100.0 fL AH Workflow SS Monocytes (Bld) [#/Vol] 0.3 103/mcL Invalid Interpretation Code 0.1 - 1.4 10^3/mcL AH Workflow SS Monocytes/100 WBC (Bld) 3.9 % Invalid Interpretation Code 2.0 - 13.0 % AH Workflow SS Neutrophils (Bld) [#/Vol] 5.7 103/mcL Invalid Interpretation Code 2.3 - 8.1 10^3/mcL Workflow SS Neutrophils/100 WBC (Bld) 88.0 % Invalid Interpretation Code 50.0 - 75.0 % AH Workflow SS Platelet mean volume (Bld) [Entitic vol] 8.9 fL Invalid Interpretation Code 6.4 - 10.5 fL Workflow SS Platelets (Bld) [#/Vol] 174 103/mcL Invalid Interpretation Code 150 - 450 10^3/mcL Workflow SS Potassium [Moles/Vol] 4.7 mmol/L Invalid Interpretation Code 3.5 - 5.0 mEq/L ADM SS Comment on above: Result Comment: Spec imen slightly hemolyzed. Protein [Mass/Vol] 6.2 G/dL Invalid Interpretation Code 5.7 - 8.2 G/dL ADM SS Comment on above: Interpretive Data: * *Note - New Reference Range in effect 20 RBC (Bld) [#/Vol] 4.60 106/mcL Invalid Interpretation Code 4.50 - 6.00 10^6/mcL Workflow SS Sodium [Moles/Vol] 135 mmol/L Invalid Interpretation Code 136 - 145 mEq/L ADM SS Urea nitrogen [Mass/Vol] 19.0 mg/dL Invalid Interpretation Code 8.0 - 22.0 mg/dL ADM SS Urea nitrogen/Creatinine [Mass ratio] 30.6 ratio Invalid Interpretation Code 10.0 - 22.0 ratio AH ADM SS WBC (Bld) [#/Vol] 6.5 103/mcL Invalid Interpretation Code 4.5 - 10.8 10^3/mcL AH Workflow SS LABORATORYOrdered By: Shawna Khalil on 05-08-2023 Blood Glucose Interventions Administered agent to decrease blood sugar (05/08/23 1:30 AM) [facility] MGon 05-08-2023 Magnesium [Mass/Vol] 2.0 mg/dL Normal 1.6-2.4 [facility] ([place] Comment on above: Performed By: #### C MP, CBC, ADIFF, ANEU, GFR, MG ####[place] [address] VBGon 05-08-2023 BE Venous -3.0 mmol/L Normal -3.0-3.0 [facility] ([place]) Comment on above: Performed By: #### V BG ####[place] [address] HCO3 (Bld) [Moles/Vol] 22.2 mmol/L Normal 21.0-30.0 A [facility] ([place]) Comment on above: Performed By: #### V BG ####[place] [address] pCO2 Anthony 40.2 mmHg Low 41.0-51.0 [facility] ([place]) Comment on above: Performed By: #### V BG ####[place] [address] pH Venous 7.360 Low 7.380-7.46 0 [facility] ([place] Comment on above: Performed By: #### V BG ####[place] [address] pO2 Anthony 149.7 mmHg High 35.0-40.0 [facility] ([place] Comment on above: Performed By: #### V BG ####[place] [address] TCO2 Venous 98.9 % High 70.0-75.0 [facility] ([place] Comment on above: Performed By: #### V BG ####[address] [address] XR CHEST 1 VIEWon 05-08-2023 XR CHEST 1 VIEW Normal [facility] ([place]) .Auto Diffon 05-07-2023 Basophil, Absolute 0.0 10 3/mcL Normal 0.0-0.3 [facility] ([place] Comment on above: Performed By: #### G FR, CBC, MG, CMP, ANEU, ADIFF ####[address] [address] Basophils/100 WBC (Bld) 0.0 % Normal 0.0-2.5 A [facility] ([place] Comment on above: Performed By: #### G FR, CBC, MG, CMP, ANEU, ADIFF ####[address] [address] Eosinophil, Absolute 0.0 10 3/mcL Normal 0.0-0.7 [facility] ([place]) Comment on above: Performed By: #### G FR, CBC, MG, CMP, ANEU, ADIFF ####[address] [address] Eosinophils/100 WBC (Bld) 0.0 % Normal 0.0-6.0 [facility] ([place] Comment on above: Performed By: #### G FR, CBC, MG, CMP, ANEU, ADIFF ####[address] [address] Lymphocyte, Absolute 1.8 10 3/mcL Normal 0.9-4.3 [facility] ([place] Comment on above: Performed By: #### G FR, CBC, MG, CMP, ANEU, ADIFF ####[address] [address] Lymphocytes/100 WBC (Bld) 18.5 % Low 20.0-40.0 [facility] ([place] Comment on above: Performed By: #### G FR, CBC, MG, CMP, ANEU, ADIFF ####[address] [address] Monocyte, Absolute 0.4 10 3/mcL Normal 0.1-1.4 [facility] ([place] Comment on above: Performed By: #### G FR, CBC, MG, CMP, ANEU, ADIFF ####[place] [id number] [place] [address] Monocytes/100 WBC (Bld) 4.3 % Normal 2.0-13.0 A [facility] ([place] Comment on above: Performed By: #### G FR, CBC, MG, CMP, ANEU, ADIFF ####[place] [id number] [place] [address] Neutrophils/100 WBC (Bld) 77.2 % High 50.0-75.0 [facility] ([place] Comment on above: Performed By: #### G FR, CBC, MG, CMP, ANEU, ADIFF ####[place] [id number] [place] [address] .GFRon 05-07-2023 GFR >60 Normal [facility] ([place] Comment on above: Result Comment: GFR Population mean for , Non- Americans Ages 20-29 = 116 mL/min/1.73 sq.m. Ages 30-39 = 107 mL/min/1.73 sq.m. Ages 40-49 = 99 mL/min/1.73 sq.m. Ages 50-59 = 93 mL/min/1.73 sq.m. Ages 60-69 = 85 mL/min/1.73 sq.m. Ages 70+ = 75 mL/min/1.73 sq.m.Chronic Kidney Disease: Less than 60 mL/min/1.73 square metersEnd Stage Renal Disease: Less than 15 mL/min/1.73 square meters Performed By: #### G FR, CBC, MG, CMP, ANEU, ADIFF ####[place] [id number] [place] [address] GFR Non- >60 Normal [facility] ([place] Comment on above: Result Comment: GFR Population mean for , Non- Americans Ages 20-29 = 116 mL/min/1.73 sq.m. Ages 30-39 = 107 mL/min/1.73 sq.m. Ages 40-49 = 99 mL/min/1.73 sq.m. Ages 50-59 = 93 mL/min/1.73 sq.m. Ages 60-69 = 85 mL/min/1.73 sq.m. Ages 70+ = 75 mL/min/1.73 sq.m.Chronic Kidney Disease: Less than 60 mL/min/1.73 square metersEnd Stage Renal Disease: Less than 15 mL/min/1.73 square meters Performed By: #### G FR, CBC, MG, CMP, ANEU, ADIFF ####[place] [address] .NEUABSon 05-07-2023 Neutrophil, Absolute 7.4 10 3/mcL Normal 2.3-8.1 [facility] ([place] Comment on above: Performed By: #### G FR, CBC, MG, CMP, ANEU, ADIFF ####[place] [address] BGon 05-07-2023 Barometric Pressure 707 mmHg Normal [facility] ([place]) Comment on above: Performed By: #### B G ####[place] [address] Base excess Calc (Bld) [Moles/Vol] 13.9 mmol/L Normal [facility] ([place] Comment on above: Performed By: #### B G ####[place] [address] CO2 [Moles/Vol] 41.1 mmol/L Critically abnormal 22.0-30.0 [facility] ([place] Comment on above: Performed By: #### B G ####[place] [id number] HCO3 (Bld) [Moles/Vol] 39.4 mmol/L High 21.0-29.0 A [facility] ([place] Comment on above: Performed By: #### B G ####[place] [id number] Oxygen (Bld) [Partial pressure] 90.0 mm[Hg] Normal 74.0-108.0 [facility] ([place] Comment on above: Performed By: #### B G ####[place] [id number] Oxygen saturation in Blood 97.0 % High 92.0-96.0 [facility] ([place] Comment on above: Performed By: #### B G ####[place] [address] pCO2 53.4 mmHg High 32.0-46.0 [facility] ([place] Comment on above: Performed By: #### B G ####[place] [address] pH (Bld) 7.486 [pH] High 7.380-7.46 0 [facility] ([place] Comment on above: Performed By: #### B G ####[place] [address] CBCon 05-07-2023 Erythrocyte distribution width (RBC) [Ratio] 15.8 % High 11.5-15.5 [facility] ([place] Comment on above: Performed By: #### G FR, CBC, MG, CMP, ANEU, ADIFF ####[place] [address] Hematocrit (Bld) [Volume fraction] 38.2 % Low 40.0-52.0 [facility] ([place] Comment on above: Performed By: #### G FR, CBC, MG, CMP, ANEU, ADIFF ####[place] [address] Hgb 12.4 G/dL Low 13.0-17.5 [facility] ([place] Comment on above: Performed By: #### G FR, CBC, MG, CMP, ANEU, ADIFF ####[place] [address] MCH (RBC) [Entitic mass] 29.2 pg Normal 27.0-33.0 [facility] ([place] Comment on above: Performed By: #### G FR, CBC, MG, CMP, ANEU, ADIFF ####[place] [address] MCHC 32.5 G/dL Normal 32.0-36.0 [facility] ([place] Comment on above: Performed By: #### G FR, CBC, MG, CMP, ANEU, ADIFF ####[place] [address] MCV (RBC) [Entitic vol] 89.8 fL Normal 81.0-100.0 A [facility] ([place] Comment on above: Performed By: #### G FR, CBC, MG, CMP, ANEU, ADIFF ####[place] [address] Platelet 221 10 3/mcL Normal 150-450 [facility] ([place] Comment on above: Performed By: #### G FR, CBC, MG, CMP, ANEU, ADIFF ####[place] [address] Platelet mean volume (Bld) [Entitic vol] 8.5 fL Normal 6.4-10.5 [facility] ([place] Comment on above: Performed By: #### G FR, CBC, MG, CMP, ANEU, ADIFF ####[place] [address] RBC 4.25 10 6/mcL Low 4.50-6.00 [facility] ([place] Comment on above: Performed By: #### G FR, CBC, MG, CMP, ANEU, ADIFF ####[place] [address] WBC 9.5 10 3/mcL Normal 4.5-10.8 [facility] ([place] Comment on above: Performed By: #### G FR, CBC, MG, CMP, ANEU, ADIFF ####[place] [address] CMPon 05-07-2023 Albumin Level 2.6 G/dL Low 3.2-4.8 [facility] ([place] Comment on above: Performed By: #### G FR, CBC, MG, CMP, ANEU, ADIFF ####[place] [address] Albumin/Globulin [Mass ratio] 0.9 {ratio} Normal 0.9-1.6 [facility] ([place] Comment on above: Performed By: #### G FR, CBC, MG, CMP, ANEU, ADIFF ####[place] [address] ALP [Catalytic activity/Vol] 97 U/L Normal 38-126 [facility] ([place] Comment on above: Performed By: #### G FR, CBC, MG, CMP, ANEU, ADIFF ####[place] [address] ALT [Catalytic activity/Vol] 90 U/L High 12-55 [facility] ([place] Comment on above: Performed By: #### G FR, CBC, MG, CMP, ANEU, ADIFF ####[place] [address] AST [Catalytic activity/Vol] 33 U/L Normal 8-34 [facility] ([place] Comment on above: Performed By: #### G FR, CBC, MG, CMP, ANEU, ADIFF ####[place] [address] Bili Total 0.40 mg/dL Normal 0.20-1.20 [facility] ([place] Comment on above: Result Comment: Use of this assay is not recommended for patients undergoing treatment with eltrombopag due to the potential for falsely elevated results. Performed By: #### G FR, CBC, MG, CMP, ANEU, ADIFF ####[place] [address] BUN/Creatinine Ratio 27.7 ratio High 10.0-22.0 [facility] ([place] Comment on above: Performed By: #### G FR, CBC, MG, CMP, ANEU, ADIFF ####[place] [address] Calcium [Mass/Vol] 8.3 mg/dL Low 8.7-10.4 [facility] ([place] Comment on above: Performed By: #### G FR, CBC, MG, CMP, ANEU, ADIFF ####[place] [address] Chloride [Moles/Vol] 97 mmol/L Low 98-110 [facility] ([place] Comment on above: Performed By: #### G FR, CBC, MG, CMP, ANEU, ADIFF ####[address] [address] CO2 [Moles/Vol] 40 mmol/L Critically abnormal 22-32 [facility] ([place] Comment on above: Performed By: #### G FR, CBC, MG, CMP, ANEU, ADIFF ####[address] [address] Creatinine [Mass/Vol] 0.83 mg/dL Normal 0.60-1.40 [facility] ([place] Comment on above: Performed By: #### G FR, CBC, MG, CMP, ANEU, ADIFF ####[address] [address] Electrolyte Balance 6.0 mEq/L Normal 4.0-15.0 [facility] ([place] Comment on above: Performed By: #### G FR, CBC, MG, CMP, ANEU, ADIFF ####[place] [address] Globulin 3.0 G/dL Normal 1.5-3.8 [facility] ([place] Comment on above: Performed By: #### G FR, CBC, MG, CMP, ANEU, ADIFF ####[place] [address] Glucose [Mass/Vol] 156 mg/dL High 70-110 [facility] ([place] Comment on above: Performed By: #### G FR, CBC, MG, CMP, ANEU, ADIFF ####[place] [address] Potassium [Moles/Vol] 3.9 mmol/L Normal 3.5-5.0 [facility] ([place] Comment on above: Result Comment: Spec imen slightly hemolyzed. Performed By: #### G FR, CBC, MG, CMP, ANEU, ADIFF ####[address] [address] Sodium [Moles/Vol] 143 mmol/L Normal 136-145 [facility] ([place] Comment on above: Performed By: #### G FR, CBC, MG, CMP, ANEU, ADIFF ####[address] [address] Total Protein 5.6 G/dL Low 5.7-8.2 [facility] ([place] Comment on above: Result Comment: No te - New Reference Range in effect 20 Performed By: #### G FR, CBC, MG, CMP, ANEU, ADIFF ####[place] [id number] [place] [address] Urea nitrogen [Mass/Vol] 23.0 mg/dL High 8.0-22.0 [facility] ([place] Comment on above: Performed By: #### G FR, CBC, MG, CMP, ANEU, ADIFF ####[address] [address] CRESPon 05-07-2023 CRESP Normal [facility] ([place]) LABORATORYOrdered By: Anton Farias on 05-07-2023 Base excess Calc (BldV) [Moles/Vol] 1.4 mmol/L Invalid Interpretation Code -3.0 - 3.0 mmol/L AH Auto Chem SS CO2 (BldV) [Partial pressure] 44.8 mm[Hg] Invalid Interpretation Code 41.0 - 51.0 mm Hg AH Auto Chem SS CO2 Calc (BldV) [Moles/Vol] 28.1 mmol/L Invalid Interpretation Code 22.0 - 32.0 mmol/L AH Auto Chem SS HCO3 (Bld) [Moles/Vol] 26.7 mmol/L Invalid Interpretation Code 21.0 - 30.0 mmol/L AH Auto Chem SS Oxygen (BldV) [Partial pressure] 89.7 mm[Hg] Invalid Interpretation Code 35.0 - 40.0 mm Hg AH Auto Chem SS pH (BldV) 7.393 [pH] Invalid Interpretation Code 7.380 - 7.460 AH Auto Chem SS LABORATORYOrdered By: Cadence Bishop on 05-07-2023 Barometric Pressure 707 mm[Hg] Invalid Interpretation Code AH Auto Chem SS Base excess Calc (Bld) [Moles/Vol] 13.9 mmol/L Invalid Interpretation Code AH Auto Chem SS CO2 (Bld) [Partial pressure] 53.4 mm[Hg] Invalid Interpretation Code 32.0 - 46.0 mm Hg AH Auto Chem SS CO2 [Moles/Vol] 41.1 mmol/L Invalid Interpretation Code 22.0 - 30.0 mmol/L Auto Chem SS HCO3 (Bld) [Moles/Vol] 39.4 mmol/L Invalid Interpretation Code 21.0 - 29.0 mmol/L Auto Chem SS Oxygen (Bld) [Partial pressure] 90.0 mm[Hg] Invalid Interpretation Code 74.0 - 108.0 mm Hg AH Auto Chem SS pH (Bld) 7.486 [pH] Invalid Interpretation Code 7.380 - 7.460 Auto Chem SS MGon 05-07-2023 Magnesium [Mass/Vol] 2.2 mg/dL Normal 1.6-2.4 [facility] ([place] Comment on above: Performed By: #### G FR, CBC, MG, CMP, ANEU, ADIFF ####[place] [address] VBGon 05-07-2023 BE Venous 1.4 mmol/L Normal -3.0-3.0 [facility] ([place] Comment on above: Performed By: #### V BG ####[place] [address] HCO3 (Bld) [Moles/Vol] 26.7 mmol/L Normal 21.0-30.0 A [facility] ([place] Comment on above: Performed By: #### V BG ####[place] [address] pCO2 Anthony 44.8 mmHg Normal 41.0-51.0 [facility] ([place] Comment on above: Performed By: #### V BG ####[place] [address] pH Venous 7.393 Normal 7.380-7.46 0 [facility] ([place] Comment on above: Performed By: #### V BG ####[place] [address] pO2 Anthony 89.7 mmHg High 35.0-40.0 [facility] ([place] Comment on above: Performed By: #### V BG ####[place] [address] TCO2 Venous 96.5 % High 70.0-75.0 [facility] ([place] Comment on above: Performed By: #### V BG ####[address] [address] XR CHEST 1 VIEWon 05-07-2023 XR CHEST 1 VIEW Normal [facility] ([place] .Auto Diffon 05-06-2023 Basophil, Absolute 0.1 10 3/mcL Normal 0.0-0.3 [facility] ([place] Comment on above: Performed By: #### A AUNG LAWSON, CBC ####[address] [address] Basophils/100 WBC (Bld) 0.8 % Normal 0.0-2.5 A [facility] ([place] Comment on above: Performed By: #### A AUGN LAWSON, CBC ####[address] [address] Eosinophil, Absolute 0.0 10 3/mcL Normal 0.0-0.7 [facility] ([place] Comment on above: Performed By: #### A AUNG LAWSON, CBC ####[address] [address] Eosinophils/100 WBC (Bld) 0.1 % Normal 0.0-6.0 [facility] ([place] Comment on above: Performed By: #### A AUNG LAWSON, CBC ####[address] [address] Lymphocyte, Absolute 2.0 10 3/mcL Normal 0.9-4.3 [facility] ([place] Comment on above: Performed By: #### A AUNG LAWSON, CBC ####[address] [address] Lymphocytes/100 WBC (Bld) 17.2 % Low 20.0-40.0 [facility] ([place] Comment on above: Performed By: #### A AUNG LAWSON, CBC ####[address] [address] Monocyte, Absolute 0.6 10 3/mcL Normal 0.1-1.4 [facility] ([place] Comment on above: Performed By: #### A AUNG LAWOSN, CBC ####[place] [id number] [place] [address] Monocytes/100 WBC (Bld) 5.1 % Normal 2.0-13.0 A [facility] ([place] Comment on above: Performed By: #### A AUNG LAWSON, CBC ####[address] [address] Neutrophils/100 WBC (Bld) 76.8 % High 50.0-75.0 [facility] ([place] Comment on above: Performed By: #### A AUNG LAWSON, CBC ####[address] [address] .GFRon 05-06-2023 GFR Non- >60 Normal [facility] ([place] Comment on above: Result Comment: GFR Population mean for , Non- Americans Ages 20-29 = 116 mL/min/1.73 sq.m. Ages 30-39 = 107 mL/min/1.73 sq.m. Ages 40-49 = 99 mL/min/1.73 sq.m. Ages 50-59 = 93 mL/min/1.73 sq.m. Ages 60-69 = 85 mL/min/1.73 sq.m. Ages 70+ = 75 mL/min/1.73 sq.m.Chronic Kidney Disease: Less than 60 mL/min/1.73 square metersEnd Stage Renal Disease: Less than 15 mL/min/1.73 square meters Performed By: #### G FR, BMP ####[address] [address] GFR >60 Normal [facility] ([place] Comment on above: Result Comment: GFR Population mean for , Non- Americans Ages 20-29 = 116 mL/min/1.73 sq.m. Ages 30-39 = 107 mL/min/1.73 sq.m. Ages 40-49 = 99 mL/min/1.73 sq.m. Ages 50-59 = 93 mL/min/1.73 sq.m. Ages 60-69 = 85 mL/min/1.73 sq.m. Ages 70+ = 75 mL/min/1.73 sq.m.Chronic Kidney Disease: Less than 60 mL/min/1.73 square metersEnd Stage Renal Disease: Less than 15 mL/min/1.73 square meters Performed By: #### G FR, BMP ####[place] [address] .NEUABSon 05-06-2023 Neutrophil, Absolute 9.2 10 3/mcL High 2.3-8.1 [facility] ([place] Comment on above: Performed By: #### A AUNG LAWSON, CBC ####[place] [address] BGon 05-06-2023 Barometric Pressure 733 mmHg Normal [facility] ([place] Comment on above: Performed By: #### B G ####[place] [address] Base excess Calc (Bld) [Moles/Vol] 13.0 mmol/L Normal [facility] ([place] Comment on above: Performed By: #### B G ####[place] [address] CO2 [Moles/Vol] 41.1 mmol/L Critically abnormal 22.0-30.0 [facility] ([place] Comment on above: Performed By: #### B G ####[place] [address] HCO3 (Bld) [Moles/Vol] 39.4 mmol/L High 21.0-29.0 A [facility] ([place] Comment on above: Performed By: #### B G ####[place] [address] Oxygen (Bld) [Partial pressure] 114.1 mm[Hg] High 74.0-108.0 [facility] ([place] Comment on above: Performed By: #### B G ####[place] [address] Oxygen saturation in Blood 98.3 % High 92.0-96.0 [facility] ([place] Comment on above: Performed By: #### B G ####[place] [address] pCO2 56.3 mmHg High 32.0-46.0 [facility] ([place] Comment on above: Performed By: #### B G ####[address] [address] pH (Bld) 7.463 [pH] High 7.380-7.46 0 [facility] ([place] Comment on above: Performed By: #### B G ####[address] [address] Barometric Pressure 706 mmHg Normal [facility] ([place] Comment on above: Performed By: #### B G ####[address] [address] Base excess Calc (Bld) [Moles/Vol] 10.6 mmol/L Normal [facility] ([place] Comment on above: Performed By: #### B G ####[address] [address] CO2 [Moles/Vol] 39.9 mmol/L High 22.0-30.0 [facility] ([place] Comment on above: Performed By: #### B G ####[address] [address] HCO3 (Bld) [Moles/Vol] 38.0 mmol/L High 21.0-29.0 A [facility] ([place] Comment on above: Performed By: #### B G ####[address] [address] Oxygen (Bld) [Partial pressure] 97.9 mm[Hg] Normal 74.0-108.0 [facility] ([place] Comment on above: Performed By: #### B G ####[address] [address] Oxygen saturation in Blood 97.1 % High 92.0-96.0 [facility] ([place] Comment on above: Performed By: #### B G ####[address] [address] pCO2 63.7 mmHg High 32.0-46.0 [facility] ([place] Comment on above: Performed By: #### B G ####[address] [address] pH (Bld) 7.393 [pH] Normal 7.380-7.46 0 [facility] ([place] Comment on above: Performed By: #### Mohamud G ####[place] [address] BMPon 05-06-2023 BUN/Creatinine Ratio 26.0 ratio High 10.0-22.0 [facility] ([place] Comment on above: Performed By: #### Talon GARDNER, BMP ####[place] [address] Calcium [Mass/Vol] 8.5 mg/dL Low 8.7-10.4 [facility] ([place] Comment on above: Performed By: #### Talon GARDNER, BMP ####[place] [address] Chloride [Moles/Vol] 95 mmol/L Low 98-110 [facility] ([place] Comment on above: Performed By: #### Talon GARDNER, BMP ####[place] [address] CO2 [Moles/Vol] 39 mmol/L High 22-32 [facility] ([place] Comment on above: Performed By: #### Talon GARDNER, BMP ####[place] [address] Creatinine [Mass/Vol] 0.96 mg/dL Normal 0.60-1.40 [facility] ([place] Comment on above: Performed By: #### Talon GARDNER, BMP ####[place] [address] Electrolyte Balance 5.0 mEq/L Normal 4.0-15.0 [facility] ([place] Comment on above: Performed By: #### Talon GARDNER, BMP ####[place] [id number] Glucose [Mass/Vol] 217 mg/dL High 70-110 [facility] ([place] Comment on above: Performed By: #### Talon GARDNER, BMP ####[place] [id number] Potassium [Moles/Vol] 3.8 mmol/L Normal 3.5-5.0 [facility] ([place] Comment on above: Performed By: #### Talon GARDNER, BMP ####[place] [address] Sodium [Moles/Vol] 139 mmol/L Normal 136-145 [facility] ([place] Comment on above: Performed By: #### G , BMP ####[place] [address] Urea nitrogen [Mass/Vol] 25.0 mg/dL High 8.0-22.0 [facility] ([place] Comment on above: Performed By: #### G , BMP ####[place] [address] CAIONon 05-06-2023 Calcium Ionized 1.02 mmol/L Low 1.12-1.32 [facility] ([place] Comment on above: Performed By: #### C AION ####[place] [address] CBCon 05-06-2023 Erythrocyte distribution width (RBC) [Ratio] 16.5 % High 11.5-15.5 [facility] ([place] Comment on above: Performed By: #### A AUNG LASWON, CBC ####[place] [address] Hematocrit (Bld) [Volume fraction] 40.0 % Normal 40.0-52.0 [facility] ([place] Comment on above: Performed By: #### A AUNG LAWSON, CBC ####[place] [address] Hgb 12.8 G/dL Low 13.0-17.5 [facility] ([place] Comment on above: Performed By: #### A AUNG LAWSON, CBC ####[place] [address] MCH (RBC) [Entitic mass] 28.9 pg Normal 27.0-33.0 [facility] ([place] Comment on above: Performed By: #### A AUNG LAWSON, CBC ####[address] [address] MCHC 32.0 G/dL Normal 32.0-36.0 [facility] ([place] Comment on above: Performed By: #### A AUNG LAWSON, CBC ####[address] [address] MCV (RBC) [Entitic vol] 90.3 fL Normal 81.0-100.0 A [facility] ([place] Comment on above: Performed By: #### A AUNG LAWSON, CBC ####[address] [address] Platelet 204 10 3/mcL Normal 150-450 [facility] ([place] Comment on above: Performed By: #### A AUNG LAWSON, CBC ####[address] [address] Platelet mean volume (Bld) [Entitic vol] 8.8 fL Normal 6.4-10.5 [facility] ([place]) Comment on above: Performed By: #### A AUNG LAWSON, CBC ####[address] [address] RBC 4.43 10 6/mcL Low 4.50-6.00 [facility] ([place]) Comment on above: Performed By: #### A AUNG LAWSON, CBC ####[address] [address] WBC 11.9 10 3/mcL High 4.5-10.8 [facility] ([place]) Comment on above: Performed By: #### A AUNG LAWSON, CBC ####[address] [address] LABORATORYOrdered By: Cadence Bishop on 05-06-2023 Barometric Pressure 733 mm[Hg] Invalid Interpretation Code AH Auto Chem SS Base excess Calc (Bld) [Moles/Vol] 13.0 mmol/L Invalid Interpretation Code AH Auto Chem SS CO2 (Bld) [Partial pressure] 56.3 mm[Hg] Invalid Interpretation Code 32.0 - 46.0 mm Hg AH Auto Chem SS CO2 [Moles/Vol] 41.1 mmol/L Invalid Interpretation Code 22.0 - 30.0 mmol/L Auto Chem SS HCO3 (Bld) [Moles/Vol] 39.4 mmol/L Invalid Interpretation Code 21.0 - 29.0 mmol/L AH Auto Chem SS Oxygen (Bld) [Partial pressure] 114.1 mm[Hg] Invalid Interpretation Code 74.0 - 108.0 mm Hg AH Auto Chem SS pH (Bld) 7.463 [pH] Invalid Interpretation Code 7.380 - 7.460 Auto Chem SS LABORATORYOrdered By: Tita Shi on 05-06-2023 Calcium.ionized (Bld) [Mass/Vol] 1.02 mmol/L Invalid Interpretation Code 1.12 - 1.32 mmol/L Auto Chem SS Lactate [Moles/Vol] 1.2 mmol/L Invalid Interpretation Code 0.2 - 2.0 mmol/L Auto Chem SS LACon 05-06-2023 Lactic Acid Lvl 1.2 mmol/L Normal 0.2-2.0 [facility] ([place]) Comment on above: Performed By: #### L AC ####[address] [address] MGon 05-06-2023 Magnesium [Mass/Vol] 1.9 mg/dL Normal 1.6-2.4 [facility] ([place]) Comment on above: Performed By: #### M G ####[address] [address] XR CHEST 1 VIEWon 05-06-2023 XR CHEST 1 VIEW Normal [facility] ([place]) XR CHEST 1 VIEW Normal [facility] ([place]) .Auto Diffon 05-05-2023 Basophil, Absolute 0.0 10 3/mcL Normal 0.0-0.3 [facility] ([place]) Comment on above: Performed By: #### L AC, GFR, MDW, ADIFF, CBC, BMP, TROPHS, PBNP, ANEU ####[address] [address] Basophils/100 WBC (Bld) 0.2 % Normal 0.0-2.5 A [facility] ([place]) Comment on above: Performed By: #### L AC, GFR, MDW, ADIFF, CBC, BMP, TROPHS, PBNP, ANEU ####[address] [address] Eosinophil, Absolute 0.1 10 3/mcL Normal 0.0-0.7 [facility] ([place]) Comment on above: Performed By: #### L AC, GFR, MDW, ADIFF, CBC, BMP, TROPHS, PBNP, ANEU ####[address] [address] Eosinophils/100 WBC (Bld) 0.5 % Normal 0.0-6.0 [facility] ([place]) Comment on above: Performed By: #### L AC, GFR, MDW, ADIFF, CBC, BMP, TROPHS, PBNP, ANEU ####[address] [address] Lymphocyte, Absolute 2.1 10 3/mcL Normal 0.9-4.3 [facility] ([place]) Comment on above: Performed By: #### L AC, GFR, MDW, ADIFF, CBC, BMP, TROPHS, PBNP, ANEU ####[address] [address] Lymphocytes/100 WBC (Bld) 13.6 % Low 20.0-40.0 [facility] ([place]) Comment on above: Performed By: #### L AC, GFR, MDW, ADIFF, CBC, BMP, TROPHS, PBNP, ANEU ####[address] [address] Monocyte, Absolute 1.0 10 3/mcL Normal 0.1-1.4 [facility] ([place]) Comment on above: Performed By: #### L AC, GFR, MDW, ADIFF, CBC, BMP, TROPHS, PBNP, ANEU ####[address] [address] Monocytes/100 WBC (Bld) 6.0 % Normal 2.0-13.0 [facility] ([place]) Comment on above: Performed By: #### L AC, GFR, MDW, ADIFF, CBC, BMP, TROPHS, PBNP, ANEU ####[address] [address] Neutrophils/100 WBC (Bld) 79.7 % High 50.0-75.0 [facility] ([place]) Comment on above: Performed By: #### L AC, GFR, W, AUNG, CBC, BMP, TROPHS, PBNP, ANEU ####[address] [address] .GFRon 05-05-2023 GFR Non- >60 Normal [facility] ([place]) Comment on above: Result Comment: GFR Population mean for , Non- Americans Ages 20-29 = 116 mL/min/1.73 sq.m. Ages 30-39 = 107 mL/min/1.73 sq.m. Ages 40-49 = 99 mL/min/1.73 sq.m. Ages 50-59 = 93 mL/min/1.73 sq.m. Ages 60-69 = 85 mL/min/1.73 sq.m. Ages 70+ = 75 mL/min/1.73 sq.m.Chronic Kidney Disease: Less than 60 mL/min/1.73 square metersEnd Stage Renal Disease: Less than 15 mL/min/1.73 square meters Performed By: #### G FR, BMP ####[place] [address] GFR >60 Normal [facility] ([place]) Comment on above: Result Comment: GFR Population mean for , Non- Americans Ages 20-29 = 116 mL/min/1.73 sq.m. Ages 30-39 = 107 mL/min/1.73 sq.m. Ages 40-49 = 99 mL/min/1.73 sq.m. Ages 50-59 = 93 mL/min/1.73 sq.m. Ages 60-69 = 85 mL/min/1.73 sq.m. Ages 70+ = 75 mL/min/1.73 sq.m.Chronic Kidney Disease: Less than 60 mL/min/1.73 square metersEnd Stage Renal Disease: Less than 15 mL/min/1.73 square meters Performed By: #### G FR, BMP ####[place] [address] GFR Non- >60 Normal [facility] ([place]) Comment on above: Result Comment: GFR Population mean for , Non- Americans Ages 20-29 = 116 mL/min/1.73 sq.m. Ages 30-39 = 107 mL/min/1.73 sq.m. Ages 40-49 = 99 mL/min/1.73 sq.m. Ages 50-59 = 93 mL/min/1.73 sq.m. Ages 60-69 = 85 mL/min/1.73 sq.m. Ages 70+ = 75 mL/min/1.73 sq.m.Chronic Kidney Disease: Less than 60 mL/min/1.73 square metersEnd Stage Renal Disease: Less than 15 mL/min/1.73 square meters Performed By: #### M ORPH, TROPHS, CBC, CMP, DIFF, CAION, MG, PHOS, GFR ####[address] [address] GFR >60 Normal [facility] ([place]) Comment on above: Result Comment: GFR Population mean for , Non- Americans Ages 20-29 = 116 mL/min/1.73 sq.m. Ages 30-39 = 107 mL/min/1.73 sq.m. Ages 40-49 = 99 mL/min/1.73 sq.m. Ages 50-59 = 93 mL/min/1.73 sq.m. Ages 60-69 = 85 mL/min/1.73 sq.m. Ages 70+ = 75 mL/min/1.73 sq.m.Chronic Kidney Disease: Less than 60 mL/min/1.73 square metersEnd Stage Renal Disease: Less than 15 mL/min/1.73 square meters Performed By: #### M ORPH, TROPHS, CBC, CMP, DIFF, CAION, MG, PHOS, GFR ####[address] [address] GFR >60 Normal [facility] ([place] Comment on above: Result Comment: GFR Population mean for , Non- Americans Ages 20-29 = 116 mL/min/1.73 sq.m. Ages 30-39 = 107 mL/min/1.73 sq.m. Ages 40-49 = 99 mL/min/1.73 sq.m. Ages 50-59 = 93 mL/min/1.73 sq.m. Ages 60-69 = 85 mL/min/1.73 sq.m. Ages 70+ = 75 mL/min/1.73 sq.m.Chronic Kidney Disease: Less than 60 mL/min/1.73 square metersEnd Stage Renal Disease: Less than 15 mL/min/1.73 square meters Performed By: #### L AC, GFR, MDW, ADIFF, CBC, BMP, TROPHS, PBNP, ANEU ####[place] [address] GFR Non- >60 Normal [facility] ([place]) Comment on above: Result Comment: GFR Population mean for , Non- Americans Ages 20-29 = 116 mL/min/1.73 sq.m. Ages 30-39 = 107 mL/min/1.73 sq.m. Ages 40-49 = 99 mL/min/1.73 sq.m. Ages 50-59 = 93 mL/min/1.73 sq.m. Ages 60-69 = 85 mL/min/1.73 sq.m. Ages 70+ = 75 mL/min/1.73 sq.m.Chronic Kidney Disease: Less than 60 mL/min/1.73 square metersEnd Stage Renal Disease: Less than 15 mL/min/1.73 square meters Performed By: #### L AC, GFR, MDW, ADIFF, CBC, BMP, TROPHS, PBNP, ANEU ####[place] [address] .MDWon 05-05-2023 Monocyte Distribution Width 16.35 Normal 0.00-20.00 [facility] ([place]) Comment on above: Result Comment: For ED adult patients suspected of sepsis, MDW<=20.0 does not rule out sepsis or risk of sepsis Performed By: #### L AC, GFR, MDW, ADIFF, CBC, BMP, TROPHS, PBNP, ANEU ####[place] [address] .Manual Diffon 05-05-2023 Basophil %, Manual 0.0 % Normal 0.0-2.5 [facility] ([place]) Comment on above: Performed By: #### M ORPH, TROPHS, CBC, CMP, DIFF, CAION, MG, PHOS, GFR ####[address] [address] Basophil, Abs Manual 0.0 10 3/mcL Normal 0.0-0.3 [facility] ([place]) Comment on above: Performed By: #### M ORPH, TROPHS, CBC, CMP, DIFF, CAION, MG, PHOS, GFR ####[address] [address] Eosinophil %, Manual 0.0 % Normal 0.0-6.0 [facility] ([place]) Comment on above: Performed By: #### M ORPH, TROPHS, CBC, CMP, DIFF, CAION, MG, PHOS, GFR ####[address] [address] Eosinophil, Abs Manual 0.0 10 3/mcL Normal 0.0-0.7 [facility] ([place]) Comment on above: Performed By: #### M ORPH, TROPHS, CBC, CMP, DIFF, CAION, MG, PHOS, GFR ####[address] [address] Lymphocyte %, Manual 6.0 % Low 20.0-40.0 [facility] ([place] Comment on above: Performed By: #### M ORPH, TROPHS, CBC, CMP, DIFF, CAION, MG, PHOS, GFR ####[address] [address] Lymphocyte, Abs Manual 0.8 10 3/mcL Low 0.9-4.3 [facility] ([place]) Comment on above: Performed By: #### M ORPH, TROPHS, CBC, CMP, DIFF, CAION, MG, PHOS, GFR ####[place] [address] Monocyte %, Manual 0.0 % Low 2.0-13.0 [facility] ([place]) Comment on above: Performed By: #### M ORPH, TROPHS, CBC, CMP, DIFF, CAION, MG, PHOS, GFR ####[place] [address] Monocyte, Abs Manual 0.0 10 3/mcL Low 0.1-1.4 [facility] ([place]) Comment on above: Performed By: #### M ORPH, TROPHS, CBC, CMP, DIFF, CAION, MG, PHOS, GFR ####[place] [address] Neutrophil %, Manual 94.0 % High 50.0-75.0 [facility] ([place] Comment on above: Performed By: #### M ORPH, TROPHS, CBC, CMP, DIFF, CAION, MG, PHOS, GFR ####[place] [address] Neutrophil, Abs Manual 11.9 10 3/mcL High 2.3-8.1 [facility] ([place]) Comment on above: Performed By: #### M ORPH, TROPHS, CBC, CMP, DIFF, CAION, MG, PHOS, GFR ####[place] [address] Nucleated RBC 1.0 /100 WBC Normal [facility] ([place]) Comment on above: Performed By: #### M ORPH, TROPHS, CBC, CMP, DIFF, CAION, MG, PHOS, GFR ####[place] [address] .Morphon 05-05-2023 Anisocytosis Ql (Bld) 1+ Normal [facility] ([place]) Comment on above: Performed By: #### M ORPH, TROPHS, CBC, CMP, DIFF, CAION, MG, PHOS, GFR ####[place] [address] Polychrom 1+ Normal [facility] ([place]) Comment on above: Performed By: #### M ORPH, TROPHS, CBC, CMP, DIFF, CAION, MG, PHOS, GFR ####[place] [address] Platelet Estimate Normal Normal [facility] ([place]) Comment on above: Performed By: #### M ORPH, TROPHS, CBC, CMP, DIFF, CAION, MG, PHOS, GFR ####[place] [address] .NEUABSon 05-05-2023 Neutrophil, Absolute 12.6 10 3/mcL High 2.3-8.1 A [facility] ([place] Comment on above: Performed By: #### L AC, GFR, MDW, ADIFF, CBC, BMP, TROPHS, PBNP, ANEU ####[place] [address] BGon 05-05-2023 Barometric Pressure 730 mmHg Normal [facility] ([place]) Comment on above: Performed By: #### B G ####[place] [address] Base excess Calc (Bld) [Moles/Vol] 9.2 mmol/L Normal [facility] ([place]) Comment on above: Performed By: #### B G ####[place] [address] CO2 [Moles/Vol] 36.1 mmol/L High 22.0-30.0 [facility] ([place]) Comment on above: Performed By: #### B G ####[place] [address] HCO3 (Bld) [Moles/Vol] 34.6 mmol/L High 21.0-29.0 A [facility] ([place] Comment on above: Performed By: #### B G ####[place] [address] Oxygen (Bld) [Partial pressure] 89.1 mm[Hg] Normal 74.0-108.0 [facility] ([place]) Comment on above: Performed By: #### B G ####[place] [address] Oxygen saturation in Blood 97.1 % High 92.0-96.0 [facility] ([place]) Comment on above: Performed By: #### B G ####[place] [address] pCO2 49.3 mmHg High 32.0-46.0 [facility] ([place]) Comment on above: Performed By: #### Mohamud G ####[address] [address] pH (Bld) 7.464 [pH] High 7.380-7.46 0 [facility] ([place] Comment on above: Performed By: #### Mohamud G ####[address] [address] Barometric Pressure 703 mmHg Normal [facility] ([place]) Comment on above: Performed By: #### Mohamud G ####[address] [address] Base excess Calc (Bld) [Moles/Vol] 11.7 mmol/L Normal [facility] ([place] Comment on above: Performed By: #### Mohamud G ####[place] [address] CO2 [Moles/Vol] 38.1 mmol/L High 22.0-30.0 [facility] ([place] Comment on above: Performed By: #### Mohamud G ####[place] [address] HCO3 (Bld) [Moles/Vol] 36.6 mmol/L High 21.0-29.0 A [facility] ([place] Comment on above: Performed By: #### Mohamud G ####[address] [address] Oxygen (Bld) [Partial pressure] 110.2 mm[Hg] High 74.0-108.0 [facility] ([place] Comment on above: Performed By: #### Mohamud G ####[place] [address] Oxygen saturation in Blood 98.4 % High 92.0-96.0 [facility] ([place] Comment on above: Performed By: #### Mohamud G ####[address] [address] pCO2 47.9 mmHg High 32.0-46.0 [facility] ([place] Comment on above: Performed By: #### Mohamud G ####[address] [address] pH (Bld) 7.501 [pH] High 7.380-7.46 0 [facility] ([place] Comment on above: Performed By: #### B G ####[address] [address] Barometric Pressure 729 mmHg Normal [facility] ([place] Comment on above: Performed By: #### B G ####[address] [address] Base excess Calc (Bld) [Moles/Vol] 9.9 mmol/L Normal [facility] ([place] Comment on above: Performed By: #### B G ####[address] [address] CO2 [Moles/Vol] 40.9 mmol/L Critically abnormal 22.0-30.0 [facility] ([place] Comment on above: Performed By: #### B G ####[place] [address] HCO3 (Bld) [Moles/Vol] 38.7 mmol/L High 21.0-29.0 A [facility] ([place] Comment on above: Performed By: #### B G ####[address] [address] Oxygen (Bld) [Partial pressure] 129.6 mm[Hg] High 74.0-108.0 [facility] ([place] Comment on above: Performed By: #### B G ####[address] [address] Oxygen saturation in Blood 98.3 % High 92.0-96.0 [facility] ([place] Comment on above: Performed By: #### B G ####[address] [address] pCO2 71.6 mmHg Critically abnormal 32.0-46.0 [facility] ([place] Comment on above: Performed By: #### B G ####[address] [address] pH (Bld) 7.351 [pH] Low 7.380-7.46 0 [facility] ([place] Comment on above: Performed By: #### B Talon ####[address] [address] BMPon 05-05-2023 BUN/Creatinine Ratio 31.0 ratio High 10.0-22.0 [facility] ([place] Comment on above: Performed By: #### Talon GARDNER, BMP ####[address] [address] Calcium [Mass/Vol] 8.1 mg/dL Low 8.7-10.4 [facility] ([place]) Comment on above: Performed By: #### Talon GARDNER, BMP ####[place] [address] Chloride [Moles/Vol] 95 mmol/L Low 98-110 [facility] ([place] Comment on above: Performed By: #### Talon GARDNER, BMP ####[place] [address] CO2 [Moles/Vol] 38 mmol/L High 22-32 [facility] ([place] Comment on above: Performed By: #### Talon GARDNER, BMP ####[place] [address] Creatinine [Mass/Vol] 0.84 mg/dL Normal 0.60-1.40 [facility] ([place] Comment on above: Performed By: #### Talon GARDNER, BMP ####[place] [address] Electrolyte Balance 4.0 mEq/L Normal 4.0-15.0 [facility] ([place]) Comment on above: Performed By: #### Talon GARDNER, BMP ####[address] [address] Glucose [Mass/Vol] 389 mg/dL High 70-110 [facility] ([place] Comment on above: Performed By: #### Talon GARDNER, BMP ####[place] [address] Potassium [Moles/Vol] 4.5 mmol/L Normal 3.5-5.0 [facility] ([place] Comment on above: Result Comment: Spec imen slightly hemolyzed. Performed By: #### Talon GARDNER, BMP ####[address] [address] Sodium [Moles/Vol] 137 mmol/L Normal 136-145 [facility] ([place] Comment on above: Performed By: #### G FR, BMP ####[address] [address] Urea nitrogen [Mass/Vol] 26.0 mg/dL High 8.0-22.0 [facility] ([place]) Comment on above: Performed By: #### G FR, BMP ####[address] [address] CO2 [Moles/Vol] mmol/L Critically abnormal 22-32 [facility] ([place] Comment on above: Performed By: #### L AC, GFR, MDW, ADIFF, CBC, BMP, TROPHS, PBNP, ANEU ####[address] [address] Electrolyte Balance Unable to Calculate Normal 4.0-15. 0 [facility] ([place]) Comment on above: Result Comment: Unab le to calculate this test result accurately. Results used to calculate this test are outside the reportable range. Performed By: #### L AC, GFR, MDW, ADIFF, CBC, BMP, TROPHS, PBNP, ANEU ####[address] [address] BUN/Creatinine Ratio 34.3 ratio High 10.0-22.0 [facility] ([place] Comment on above: Performed By: #### L AC, GFR, MDW, ADIFF, CBC, BMP, TROPHS, PBNP, ANEU ####[address] [address] Calcium [Mass/Vol] 9.1 mg/dL Normal 8.7-10.4 [facility] ([place]) Comment on above: Performed By: #### L AC, GFR, MDW, ADIFF, CBC, BMP, TROPHS, PBNP, ANEU ####[address] [address] Chloride [Moles/Vol] 90 mmol/L Low 98-110 [facility] ([place] Comment on above: Performed By: #### L AC, GFR, MDW, ADIFF, CBC, BMP, TROPHS, PBNP, ANEU ####[address] [address] Creatinine [Mass/Vol] 0.70 mg/dL Normal 0.60-1.40 [facility] ([place] Comment on above: Performed By: #### L AC, GFR, MDW, ADIFF, CBC, BMP, TROPHS, PBNP, ANEU ####[address] [address] Glucose [Mass/Vol] 321 mg/dL High 70-110 [facility] ([place] Comment on above: Performed By: #### L AC, GFR, MDW, ADIFF, CBC, BMP, TROPHS, PBNP, ANEU ####[address] [address] Potassium [Moles/Vol] 5.1 mmol/L High 3.5-5.0 [facility] ([place] Comment on above: Performed By: #### L AC, GFR, MDW, ADIFF, CBC, BMP, TROPHS, PBNP, ANEU ####[address] [address] Sodium [Moles/Vol] 137 mmol/L Normal 136-145 [facility] ([place] Comment on above: Performed By: #### L AC, GFR, MDW, ADIFF, CBC, BMP, TROPHS, PBNP, ANEU ####[address] [address] Urea nitrogen [Mass/Vol] 24.0 mg/dL High 8.0-22.0 [facility] ([place]) Comment on above: Performed By: #### L AC, GFR, MDW, ADIFF, CBC, BMP, TROPHS, PBNP, ANEU ####[address] [address] CAIONon 05-05-2023 Calcium Ionized 0.99 mmol/L Low 1.12-1.32 [facility] ([place]) Comment on above: Performed By: #### M ORPH, TROPHS, CBC, CMP, DIFF, CAION, MG, PHOS, GFR ####[place] [address] CBCon 05-05-2023 Platelet 301 10 3/mcL Normal 150-450 [facility] ([place]) Comment on above: Performed By: #### M ORPH, TROPHS, CBC, CMP, DIFF, CAION, MG, PHOS, GFR ####[place] [address] Platelet mean volume (Bld) [Entitic vol] 8.6 fL Normal 6.4-10.5 [facility] ([place]) Comment on above: Performed By: #### M ORPH, TROPHS, CBC, CMP, DIFF, CAION, MG, PHOS, GFR ####[place] [address] WBC 12.7 10 3/mcL High 4.5-10.8 [facility] ([place]) Comment on above: Performed By: #### M ORPH, TROPHS, CBC, CMP, DIFF, CAION, MG, PHOS, GFR ####[place] [address] Erythrocyte distribution width (RBC) [Ratio] 16.0 % High 11.5-15.5 [facility] ([place] Comment on above: Performed By: #### M ORPH, TROPHS, CBC, CMP, DIFF, CAION, MG, PHOS, GFR ####[place] [address] Hematocrit (Bld) [Volume fraction] 42.2 % Normal 40.0-52.0 [facility] ([place] Comment on above: Performed By: #### M ORPH, TROPHS, CBC, CMP, DIFF, CAION, MG, PHOS, GFR ####[place] [address] Hgb 13.5 G/dL Normal 13.0-17.5 [facility] ([place] Comment on above: Performed By: #### M ORPH, TROPHS, CBC, CMP, DIFF, CAION, MG, PHOS, GFR ####[address] [place] [address] MCH (RBC) [Entitic mass] 29.0 pg Normal 27.0-33.0 [facility] ([place] Comment on above: Performed By: #### M ORPH, TROPHS, CBC, CMP, DIFF, CAION, MG, PHOS, GFR ####[place] [address] MCHC 32.1 G/dL Normal 32.0-36.0 [facility] ([place]) Comment on above: Performed By: #### M ORPH, TROPHS, CBC, CMP, DIFF, CAION, MG, PHOS, GFR ####[place] [address] MCV (RBC) [Entitic vol] 90.3 fL Normal 81.0-100.0 A [facility] ([place] Comment on above: Performed By: #### M ORPH, TROPHS, CBC, CMP, DIFF, CAION, MG, PHOS, GFR ####[place] [address] RBC 4.67 10 6/mcL Normal 4.50-6.00 [facility] ([place] Comment on above: Performed By: #### M ORPH, TROPHS, CBC, CMP, DIFF, CAION, MG, PHOS, GFR ####[place] [address] Erythrocyte distribution width (RBC) [Ratio] 15.9 % High 11.5-15.5 [facility] ([place] Comment on above: Performed By: #### L AC, GFR, MDW, ADIFF, CBC, BMP, TROPHS, PBNP, ANEU ####[place] [address] Hematocrit (Bld) [Volume fraction] 46.4 % Normal 40.0-52.0 [facility] ([place] Comment on above: Performed By: #### L AC, GFR, MDW, ADIFF, CBC, BMP, TROPHS, PBNP, ANEU ####[place] [address] Hgb 14.7 G/dL Normal 13.0-17.5 [facility] ([place] Comment on above: Performed By: #### L AC, GFR, MDW, ADIFF, CBC, BMP, TROPHS, PBNP, ANEU ####[place] [address] MCH (RBC) [Entitic mass] 28.7 pg Normal 27.0-33.0 [facility] ([place] Comment on above: Performed By: #### L AC, GFR, MDW, ADIFF, CBC, BMP, TROPHS, PBNP, ANEU ####[place] [address] MCHC 31.6 G/dL Low 32.0-36.0 [facility] ([place] Comment on above: Performed By: #### L AC, GFR, MDW, ADIFF, CBC, BMP, TROPHS, PBNP, ANEU ####[place] [address] MCV (RBC) [Entitic vol] 91.0 fL Normal 81.0-100.0 [facility] ([place]) Comment on above: Performed By: #### L AC, GFR, MDW, ADIFF, CBC, BMP, TROPHS, PBNP, ANEU ####[place] [address] Platelet 392 10 3/mcL Normal 150-450 [facility] ([place] Comment on above: Performed By: #### L AC, GFR, MDW, ADIFF, CBC, BMP, TROPHS, PBNP, ANEU ####[place] [address] Platelet mean volume (Bld) [Entitic vol] 8.4 fL Normal 6.4-10.5 [facility] ([place] Comment on above: Performed By: #### L AC, GFR, MDW, ADIFF, CBC, BMP, TROPHS, PBNP, ANEU ####[place] [address] RBC 5.10 10 6/mcL Normal 4.50-6.00 [facility] ([place] Comment on above: Performed By: #### L AC, GFR, MDW, ADIFF, CBC, BMP, TROPHS, PBNP, ANEU ####[place] [address] WBC 15.8 10 3/mcL High 4.5-10.8 [facility] ([place] Comment on above: Performed By: #### L AC, GFR, MDW, ADIFF, CBC, BMP, TROPHS, PBNP, ANEU ####[place] [address] CMPon 05-05-2023 Albumin Level 2.9 G/dL Low 3.2-4.8 [facility] ([place] Comment on above: Performed By: #### M ORPH, TROPHS, CBC, CMP, DIFF, CAION, MG, PHOS, GFR ####[place] [address] Albumin/Globulin [Mass ratio] 0.9 {ratio} Normal 0.9-1.6 [facility] ([place] Comment on above: Performed By: #### M ORPH, TROPHS, CBC, CMP, DIFF, CAION, MG, PHOS, GFR ####[place] [address] ALP [Catalytic activity/Vol] 128 U/L High 38-126 [facility] ([place]) Comment on above: Performed By: #### M ORPH, TROPHS, CBC, CMP, DIFF, CAION, MG, PHOS, GFR ####[address] [address] ALT [Catalytic activity/Vol] 141 U/L High 12-55 [facility] ([place]) Comment on above: Performed By: #### M ORPH, TROPHS, CBC, CMP, DIFF, CAION, MG, PHOS, GFR ####[address] [address] AST [Catalytic activity/Vol] 67 U/L High 8-34 [facility] ([place] Comment on above: Performed By: #### M ORPH, TROPHS, CBC, CMP, DIFF, CAION, MG, PHOS, GFR ####[place] [address] Bili Total 1.20 mg/dL Normal 0.20-1.20 [facility] ([place]) Comment on above: Result Comment: Use of this assay is not recommended for patients undergoing treatment with eltrombopag due to the potential for falsely elevated results. Performed By: #### M ORPH, TROPHS, CBC, CMP, DIFF, CAION, MG, PHOS, GFR ####[place] [id number] BUN/Creatinine Ratio 30.7 ratio High 10.0-22.0 [facility] ([place] Comment on above: Performed By: #### M ORPH, TROPHS, CBC, CMP, DIFF, CAION, MG, PHOS, GFR ####[place] [id number] Calcium [Mass/Vol] 8.1 mg/dL Low 8.7-10.4 [facility] ([place]) Comment on above: Performed By: #### M ORPH, TROPHS, CBC, CMP, DIFF, CAION, MG, PHOS, GFR ####[place] [id number] Chloride [Moles/Vol] 95 mmol/L Low 98-110 [facility] ([place]) Comment on above: Performed By: #### M ORPH, TROPHS, CBC, CMP, DIFF, CAION, MG, PHOS, GFR ####[place] [id number] CO2 [Moles/Vol] 34 mmol/L High 22-32 [facility] ([place]) Comment on above: Performed By: #### M ORPH, TROPHS, CBC, CMP, DIFF, CAION, MG, PHOS, GFR ####[place] [address] Creatinine [Mass/Vol] 0.75 mg/dL Normal 0.60-1.40 [facility] ([place]) Comment on above: Performed By: #### M ORPH, TROPHS, CBC, CMP, DIFF, CAION, MG, PHOS, GFR ####[place] [address] Electrolyte Balance 6.0 mEq/L Normal 4.0-15.0 [facility] ([place]) Comment on above: Performed By: #### M ORPH, TROPHS, CBC, CMP, DIFF, CAION, MG, PHOS, GFR ####[address] [address] Globulin 3.3 G/dL Normal 1.5-3.8 [facility] ([place]) Comment on above: Performed By: #### M ORPH, TROPHS, CBC, CMP, DIFF, CAION, MG, PHOS, GFR ####[address] [address] Glucose [Mass/Vol] 350 mg/dL High 70-110 [facility] ([place]) Comment on above: Performed By: #### M ORPH, TROPHS, CBC, CMP, DIFF, CAION, MG, PHOS, GFR ####[address] [address] Potassium [Moles/Vol] 6.0 mmol/L High 3.5-5.0 [facility] ([place]) Comment on above: Result Comment: Spec imen slightly hemolyzed. Performed By: #### M ORPH, TROPHS, CBC, CMP, DIFF, CAION, MG, PHOS, GFR ####[address] [address] Sodium [Moles/Vol] 135 mmol/L Low 136-145 [facility] ([place]) Comment on above: Performed By: #### M ORPH, TROPHS, CBC, CMP, DIFF, CAION, MG, PHOS, GFR ####[address] [address] Total Protein 6.2 G/dL Normal 5.7-8.2 [facility] ([place]) Comment on above: Result Comment: No te - New Reference Range in effect 20 Performed By: #### M ORPH, TROPHS, CBC, CMP, DIFF, CAION, MG, PHOS, GFR ####[address] [address] Urea nitrogen [Mass/Vol] 23.0 mg/dL High 8.0-22.0 [facility] ([place]) Comment on above: Performed By: #### M ORPH, TROPHS, CBC, CMP, DIFF, CAION, MG, PHOS, GFR ####[place] [address] CVFLURVon 05-05-2023 FLU A PCR Negative Normal Negative [facility] ([place]) Comment on above: Result Comment: Note s [id number] Performed By: #### C VFLURV ####[place] [address] FLU B PCR Negative Normal Negative [facility] ([place]) Comment on above: Result Comment: [place] [id number] Performed By: #### C VFLURV ####[place] [address] RSV PCR Negative Normal Negative [facility] ([place]) Comment on above: Result Comment: [place] [id number] Performed By: #### C VFLURV ####[place] [address] SARS-CoV-2 (COVID-19) RNA HIRAM+probe Ql (Unsp spec) Negative Normal Negative [facility] ([place]) Comment on above: Result Comment: Note s [id number] test has been authorized by FDA under an EUA for use by authorized laboratories and has not been FDA cleared or approved.Results from the Xpert Xpress SARS-CoV-2/Flu/RSV or Xpert Xpress SARS-CoV-2 only test should be correlated with the clinical history, epidemiological data, and other data available to the clinician evaluating the patient. Performance of the Xpert Xpress SARS-CoV-2/Flu/RSV or Xpert Xpress SARS-CoV-2 only test has only been established in nasopharyngeal swab specimens.Erroneous test results might occur from improper specimen collection; failure to follow the recommended sample collection, handling, and storage procedures; technical error; or sample mix-up.False negative results may occur if virus is present at levels below the analytical limit of detection.Viral nucleic acid may persist in vivo, independent of virus viability. Detection of analyte target(s) does not imply that the corresponding virus(es) are infectious or are the causative agents for clinical symptoms.Recent patient exposure to FluMist or other live attenuated influenza vaccines may cause inaccurate positive results. Performed By: #### C VFLURV ####[place] [address] LABORATORYOrdered By: Wendy Pedersen on 05-05-2023 Adenovirus DNA HIRAM+non-probe Ql (Nph) Not Detected *NA* (05/05/23 7:55 PM) Invalid Interpretation Code Not Detected AH Auto Viro/Sero SS B. parapertussis [id number] DNA HIRAM+non-probe Ql (Nph) Not Detected *NA* (05/05/23 7:55 PM) Invalid Interpretation Code Not Detected AH Auto Viro/Sero SS B. pertussis toxin promoter region HIRAM+non-probe Ql (Nph) Not Detected *NA* (05/05/23 7:55 PM) Invalid Interpretation Code Not Detected AH Auto Viro/Sero SS C. pneumoniae DNA HIRAM+non-probe Ql (Nph) Not Detected *NA* (05/05/23 7:55 PM) Invalid Interpretation Code Not Detected AH Auto Viro/Sero SS FLUAV RNA HIRAM+non-probe Ql (Nph) Not Detected *NA* (05/05/23 7:55 PM) Invalid Interpretation Code Not Detected AH Auto Viro/Sero SS FLUBV RNA HIRAM+non-probe Ql (Nph) Not Detected *NA* (05/05/23 7:55 PM) Invalid Interpretation Code Not Detected AH Auto Viro/Sero SS hMPV RNA HIRAM+non-probe Ql (Nph) Not Detected *NA* (05/05/23 7:55 PM) Invalid Interpretation Code Not Detected AH Auto Viro/Sero SS M. pneumoniae DNA HIRAM+non-probe Ql (Nph) Not Detected *NA* (05/05/23 7:55 PM) Invalid Interpretation Code Not Detected AH Auto Viro/Sero SS Parainfluenza virus 1 RNA HIRAM+non-probe Ql (Nph) Not Detected *NA* (05/05/23 7:55 PM) Invalid Interpretation Code Not Detected AH Auto Viro/Sero SS Parainfluenza virus 2 RNA HIRAM+non-probe Ql (Nph) Not Detected *NA* (05/05/23 7:55 PM) Invalid Interpretation Code Not Detected AH Auto Viro/Sero SS Parainfluenza virus 3 RNA HIRAM+non-probe Ql (Nph) Not Detected *NA* (05/05/23 7:55 PM) Invalid Interpretation Code Not Detected AH Auto Viro/Sero SS Parainfluenza virus 4 RNA HIRAM+non-probe Ql (Nph) Not Detected *NA* (05/05/23 7:55 PM) Invalid Interpretation Code Not Detected AH Auto Viro/Sero SS Rhinovirus+Enterovirus RNA HIRAM+non-probe Ql (Nph) Detected *ABN* (05/05/23 7:55 PM) Invalid Interpretation Code Not Detected AH Auto Viro/Sero SS RSV RNA HIRAM+non-probe Ql (Nph) Not Detected *NA* (05/05/23 7:55 PM) Invalid Interpretation Code Not Detected AH Auto Viro/Sero SS SARS-CoV-2 (COVID-19) RNA HIRAM+probe Ql (Resp) Not Detected 3 *NA* (05/05/23 7:55 PM) Invalid Interpretation Code Not Detected AH Auto Viro/Sero SS Comment on above: Interpretive Data: T his test is being used under the FDA EUA procedure. This assay has been validated in the [facility] for use with nasopharyngeal specimens in [facility]. If a non-validated specimen or test collection method was used, please interpret the results with caution, especially if the test result is negative. A positive test result for COVID-19 indicates that RNA from SARS-CoV-2 was detected, and the patient is infected with the virus and presumed to be contagious. Laboratory test results should always be considered in the context of clinical observations and epidemiological data in making a final diagnosis and patient management decisions. Patient management should follow current CDC guidelines. A negative test result for this test means that SARS-CoV-2 RNA was not present in the specimen above the limit of detection. However, a negative result does not rule out COVID-19 and should not be used as the sole basis for treatment or patient management decisions. A negative result does not exclude the possibility of COVID-19. When diagnostic testing is negative, the possibility of a false negative result should be considered in the context of a patient's recent exposures and the presence of clinical signs and symptoms consistent with COVID-19. The possibility of a false negative result should especially be considered if the patient s recent exposures or clinical presentation indicate that COVID-19 is likely, and diagnostic tests for other causes of illness (e.g., other respiratory illness) are negative. If COVID-19 is still suspected based on exposure history together with other clinical findings, re-testing should be considered by healthcare providers in consultation with public health authorities. FLUAV RNA HIRAM+probe Ql (Resp) Negative 19 (05/05/23 2:07 PM) Invalid Interpretation Code Negative AH Auto Viro/Sero SS Comment on above: [place]: [place] [id number] FLUBV RNA HIRAM+probe Ql (Resp) Negative 20 (05/05/23 2:07 PM) Invalid Interpretation Code Negative AH Auto Viro/Sero SS Comment on above: Result Comment: [place] [id number] RSV PCR Negative 21 (05/05/23 2:07 PM) Invalid Interpretation Code Negative AH Auto Viro/Sero SS Comment on above: Result Comment: Note s [id number] SARS-CoV-2 (COVID-19) RNA HIRAM+probe Ql (Resp) Negative 17, 18 (05/05/23 2:07 PM) Invalid Interpretation Code Negative AH Auto Viro/Sero SS Comment on above: Result Comment: [place] [id number] Interpretive Data: T his test has been authorized by FDA under an EUA for use by authorized laboratories and has not been FDA cleared or approved. Results from the Xpert Xpress SARS-CoV-2/Flu/RSV or Xpert Xpress SARS-CoV-2 only test should be correlated with the clinical history, epidemiological data, and other data available to the clinician evaluating the patient. Performance of the Xpert Xpress SARS-CoV-2/Flu/RSV or Xpert Xpress SARS-CoV-2 only test has only been established in nasopharyngeal swab specimens. Erroneous test results might occur from improper specimen collection; failure to follow the recommended sample collection, handling, and storage procedures; technical error; or sample mix-up.False negative results may occur if virus is present at levels below the analytical limit of detection. Viral nucleic acid may persist in vivo, independent of virus viability. Detection of analyte target(s) does not imply that the corresponding virus(es) are infectious or are the causative agents for clinical symptoms.Recent patient exposure to FluMist or other live attenuated influenza vaccines may cause inaccurate positive results. LABORATORYOrdered By: Charleen Mazariegos on 05-05-2023 Appearance (U) Clear (05/05/23 7:55 PM) Invalid Interpretation Code Clear AH Auto Urine SS Bacteria LM.HPF (Urine sed) [#/Area] Trace /HPF Invalid Interpretation Code Negative AH Auto Urine SS Bilirubin Ql (U) Negative (05/05/23 7:55 PM) Invalid Interpretation Code Neg-Trace AH Auto Urine SS Color (U) Yellow (05/05/23 7:55 PM) Invalid Interpretation Code AH Auto Urine SS Glucose Test strip (U) [Mass/Vol] >=1000 mg/dL Invalid Interpretation Code Negative AH Auto Urine SS Hemoglobin Auto test strip (U) [Mass/Vol] Trace (05/05/23 7:55 PM) Invalid Interpretation Code Neg-Trace AH Auto Urine SS Ketones Ql (U) 40 mg/dL Invalid Interpretation Code Neg-Trace AH Auto Urine SS UA Leuk Est Moderate *ABN* (05/05/23 7:55 PM) Invalid Interpretation Code Negative AH Auto Urine SS UA Nitrite Negative (05/05/23 7:55 PM) Invalid Interpretation Code Negative AH Auto Urine SS UA pH 7.5 (05/05/23 7:55 PM) Invalid Interpretation Code 5.0 - 8.0 AH Auto Urine SS UA Protein Negative Invalid Interpretation Code Negative AH Auto Urine SS UA RBC 3-5 /HPF Invalid Interpretation Code 0-2 AH Auto Urine SS UA Spec Grav >=1.030 *ABN* (05/05/23 7:55 PM) Invalid Interpretation Code 1.006-1.02 9 AH Auto Urine SS UA Specimen Type Catheter (05/05/23 7:55 PM) Invalid Interpretation Code AH Auto Urine SS UA Squam Epithelial Rare /HPF Invalid Interpretation Code 0-20 AH Auto Urine SS UA Urobilinogen 1.0 E.U./dL Invalid Interpretation Code 0.2-1.0 AH Auto Urine SS WBC LM.HPF (Urine sed) [#/Area] 5-10 /HPF Invalid Interpretation Code 0-5 AH Auto Urine SS LABORATORYOrdered By: SYSTEM SYSTEM on 05-05-2023 Anisocytosis Ql (Bld) 1+ *NA* (05/05/23 5:58 PM) Invalid Interpretation Code AH Workflow SS Basophils (Bld) [#/Vol] 0.0 103/mcL Invalid Interpretation Code 0.0 - 0.3 10^3/mcL AH Workflow SS Basophils/100 WBC (Bld) 0.0 % Invalid Interpretation Code 0.0 - 2.5 % AH Workflow SS Eosinophils (Bld) [#/Vol] 0.0 103/mcL Invalid Interpretation Code 0.0 - 0.7 10^3/mcL AH Workflow SS Eosinophils/100 WBC (Bld) 0.0 % Invalid Interpretation Code 0.0 - 6.0 % AH Workflow SS Lymphocytes (Bld) [#/Vol] 0.8 103/mcL Invalid Interpretation Code 0.9 - 4.3 10^3/mcL AH Workflow SS Lymphocytes/100 WBC (Bld) 6.0 % Invalid Interpretation Code 20.0 - 40.0 % AH Workflow SS Monocytes (Bld) [#/Vol] 0.0 103/mcL Invalid Interpretation Code 0.1 - 1.4 10^3/mcL AH Workflow SS Monocytes/100 WBC (Bld) 0.0 % Invalid Interpretation Code 2.0 - 13.0 % AH Workflow SS Neutrophils (Bld) [#/Vol] 11.9 103/mcL Invalid Interpretation Code 2.3 - 8.1 10^3/mcL AH Workflow SS Neutrophils/100 WBC (Bld) 94.0 % Invalid Interpretation Code 50.0 - 75.0 % AH Workflow SS Nucleated RBC 1.0 /100 WBC Invalid Interpretation Code AH Workflow SS Phosphate [Mass/Vol] 3.5 mg/dL Invalid Interpretation Code 2.4 - 5.1 mg/dL ADM SS Comment on above: Interpretive Data: * *Note - New Reference Range in effect 20 Platelets LM Ql (Bld) Normal *NA* (05/05/23 5:58 PM) Invalid Interpretation Code AH Workflow SS Polychromasia LM Ql (Bld) 1+ *NA* (05/05/23 5:58 PM) Invalid Interpretation Code AH Workflow SS Troponin I.cardiac DL <= 0.01 ng/mL [Mass/Vol] 51.04 ng/L Invalid Interpretation Code 0.00 - 54.00 ng/L ADM SS Comment on above: Interpretive Data: I f the High Sensitive Troponin result is below the 99th percentile value (<45 ng/L) at the first blood draw, at least two additional blood samples should be drawn before results are interpreted as negative for AMI. Monocyte distribution width Auto (Bld) [Entitic vol] 16.35 1 Invalid Interpretation Code 0.00 - 20.00 Workflow SS Comment on above: Result Comment: For ED adult patients suspected of sepsis, MDW<=20.0 does not rule out sepsis or risk of sepsis Troponin I.cardiac DL <= 0.01 ng/mL [Mass/Vol] 50.05 ng/L Invalid Interpretation Code 0.00 - 54.00 ng/L ADM SS Comment on above: Interpretive Data: I f the High Sensitive Troponin result is below the 99th percentile value (<45 ng/L) at the first blood draw, at least two additional blood samples should be drawn before results are interpreted as negative for AMI. LABORATORYOrdered By: Hilary lin on 05-05-2023 Calcium.ionized (Bld) [Mass/Vol] 0.99 mmol/L Invalid Interpretation Code 1.12 - 1.32 mmol/L AH Auto Chem SS Lactate [Moles/Vol] 1.7 mmol/L Invalid Interpretation Code 0.2 - 2.0 mmol/L Auto Chem SS Natriuretic peptide.B prohormone N-Terminal [Mass/Vol] 2587 pg/mL Invalid Interpretation Code 0 - 450 pg/mL AH Auto Chem SS Comment on above: Interpretive Data: N T-proBNP results of less than 300 pg/mL effectively rules out acute congestive heart failure with 99% negative predictive value. LACon 05-05-2023 Lactic Acid Lvl 1.7 mmol/L Normal 0.2-2.0 [facility] ([place]) Comment on above: Performed By: #### L AC, GFR, MDW, ADIFF, CBC, BMP, TROPHS, PBNP, ANEU ####[address] [address] LUAon 05-05-2023 [facility] MGon 05-05-2023 Magnesium [Mass/Vol] 1.8 mg/dL Normal 1.6-2.4 [facility]) Comment on above: Performed By: #### M ORPH, TROPHS, CBC, CMP, DIFF, CAION, MG, PHOS, GFR ####[address] [address] No Panel InformationOrdered By: Alex Ash on 05-05-2023 Culture Respiratory with Gram Stain Normal respiratory eva present at 48 hours Sensitivity testing not indicated [facility] Comment on above: Requests for Mycopla sma, Legionella, Fungi, Mycobacteria, Chlamydia, and Viruses require ordering of those individual tests. GS Rare Epithelial cell s Rare Polymorphonuclear cells 1+ Gram Positive Cocci 1+ Gram Negative Rods [facility] Comment on above: Requests for Mycopla sma, Legionella, Fungi, Mycobacteria, Chlamydia, and Viruses require ordering of those individual tests. No Panel Informationon 05-05 Legionella Urine Ag Presumptive negative for L. pneumophila serogroup 1 antigen in urine, suggesting no recent or current infection. Legionnaire's disease cannot be ruled out since other serogroups and species may also cause disease. [facility] Streptococcus Pneumoniae Urine Antig Presumptive negative for pneumococcal pneumonia, suggesting no current or recent pneumococcal infection. Infection due to Strep pneumoniae cannot be ruled out since the antigen present in the sample may be below the detection limit of the test. [facility] Comment on above: This test has not be en evaluated on patients taking antibiotics for greater than 24 hours or on patients who have recently completed an antibiotic regimen. The accuracy of this test has not been proven in young children. Microscopic examination of blood, culture Blood Culture: No Growth at 5 days. [facility] Microscopic examination of blood, culture Blood Culture: No Growth at 5 days. [facility] PBNPon 05-05-2023 Natriuretic peptide B (Bld) [Mass/Vol] 2587 pg/mL High 0-450 [facility] ([place]) Comment on above: Result Comment: NT-p roBNP results of less than 300 pg/mL effectivelyrules out acute congestive heart failure with 99% negative predictive value. Performed By: #### L AC, GFR, MDW, ADIFF, CBC, BMP, TROPHS, PBNP, ANEU ####[place] [address] PHOSon 05-05-2023 Phosphate [Mass/Vol] 3.5 mg/dL Normal 2.4-5.1 [facility] ([place]) Comment on above: Result Comment: No te - New Reference Range in effect 20 Performed By: #### M ORPH, TROPHS, CBC, CMP, DIFF, CAION, MG, PHOS, GFR ####[place] [address] RESCVIPuneet 05-05-2023 Adenovirus Not detected Normal Not Detected [facility] ([place]) Comment on above: Performed By: #### R ESCVID ####[place] [address] Bordetella Parapertussis Not detected Normal Not Detected [facility] ([place]) Comment on above: Performed By: #### R ESCVID ####[place] [address] Bordetella Pertussis Not detected Normal Not Detected [facility] ([place]) Comment on above: Performed By: #### R ESCVID ####[place] [address] Chlamydophila pneumoniae Not detected Normal Not Detected [facility] ([place]) Comment on above: Performed By: #### R ESCVID ####[place] [address] Coronavirus 229E (Not COVID-19) Not detected Normal Not Detected [facility] ([place]) Comment on above: Performed By: #### R ESCVID ####[place] [address] Coronavirus HKU1 (Not COVID-19) Not detected Normal Not Detected [facility] ([place]) Comment on above: Performed By: #### R ESCVID ####[place] [address] Coronavirus NL63 (Not COVID-19) Not detected Normal Not Detected [facility] ([place]) Comment on above: Performed By: #### R ESCVID ####[place] [address] Coronavirus OC43 (Not COVID-19) Not detected Normal Not Detected [facility] ([place]) Comment on above: Performed By: #### R ESCVID ####[place] [address] Human Metapneumovirus Not detected Normal Not Detected [facility] ([place]) Comment on above: Performed By: #### R ESCVID ####[facility] [place] [address] Influenza A Not detected Normal Not Detected [facility] ([place]) Comment on above: Performed By: #### R ESCVID ####[facility] [place] [address] Influenza B Not detected Normal Not Detected [facility] ([place]) Comment on above: Performed By: #### R ESCVID ####[facility] [place] [address] Mycoplasma pneumoniae Not detected Normal Not Detected [facility] ([place]) Comment on above: Performed By: #### R ESCVID ####[facility] [place] [address] Parainfluenza 1 Not detected Normal Not Detected [facility] ([place] Comment on above: Performed By: #### R ESCVID ####[place] [address] Parainfluenza 2 Not detected Normal Not Detected [facility] ([place]) Comment on above: Performed By: #### R ESCVID ####[facility] [place] [address] Parainfluenza 3 Not detected Normal Not Detected [facility] ([place] Comment on above: Performed By: #### R ESCVID ####[place] [address] Parainfluenza 4 Not detected Normal Not Detected [facility] ([place]) Comment on above: Performed By: #### R ESCVID ####[facility] [place] [address] Respiratory Syncytial Virus Not detected Normal Not Detected [facility] ([place]) Comment on above: Performed By: #### R ESCVID ####[place] [address] Rhinovirus/Enterovirus Detected Abnormal Not Detected [facility] ([place]) Comment on above: Performed By: #### R ESCVID ####[place] [address] SARS-CoV-2 (COVID-19) RNA HIRAM+probe Ql (Unsp spec) Not detected Normal Not Detected [facility] ([place]) Comment on above: Result Comment: This test is being used under the FDA EUA procedure. This assay has been validated in the [facility] for use with nasopharyngeal specimens in [facility]. If a non-validated specimen or test collection method was used, please interpret the results with caution, especially if the test result is negative.A positive test result for COVID-19 indicates that RNA from SARS-CoV-2 was detected, and the patient is infected with the virus and presumed to be contagious. Laboratory test results should always be considered in the context of clinical observations and epidemiological data in making a final diagnosis and patient management decisions. Patient management should follow current CDC guidelines. A negative test result for this test means that SARS-CoV-2 RNA was not present in the specimen above the limit of detection. However, a negative result does not rule out COVID-19 and should not be used as the sole basis for treatment or patient management decisions. A negative result does not exclude the possibility of COVID-19. When diagnostic testing is negative, the possibility of a false negative result should be considered in the context of a patient's recent exposures and the presence of clinical signs and symptoms consistent with COVID-19. The possibility of a false negative result should especially be considered if the patient?s recent exposures or clinical presentation indicate that COVID-19 is likely, and diagnostic tests for other causes of illness (e.g., other respiratory illness) are negative. If COVID-19 is still suspected based on exposure history together with other clinical findings, re-testing should be considered by healthcare providers in consultation with public health authorities. Performed By: #### R ESCVID ####[place] [address] SPAGon 05-05-2023 SPAG Normal [facility] ([place]) TROPHSon 05-05-2023 Troponin I High Sensitivity 51.04 ng/L Normal 0.00-54.00 [facility] ([place]) Comment on above: Result Comment: If t he High Sensitive Troponin result is below the 99th percentile value (<45 ng/L) at the first blood draw, at least two additional blood samples should be drawn before results are interpreted as negative for AMI. Performed By: #### M ORPH, TROPHS, CBC, CMP, DIFF, CAION, MG, PHOS, GFR ####[place] [address] Troponin I High Sensitivity 50.05 ng/L Normal 0.00-54.00 [facility] ([place]) Comment on above: Result Comment: If t he High Sensitive Troponin result is below the 99th percentile value (<45 ng/L) at the first blood draw, at least two additional blood samples should be drawn before results are interpreted as negative for AMI. Performed By: #### L AC, GFR, MDW, ADIFF, CBC, BMP, TROPHS, PBNP, ANEU ####[place] [address] UAon 05-05-2023 Color (U) Yellow Normal [facility] ([place]) Comment on above: Performed By: #### U AMIC, UA ####[place] [address] Glucose (U) [Mass/Vol] mg/dL Abnormal Negative [facility] ([place]) Comment on above: Performed By: #### U AMIC, UA ####[place] [address] Ketones Ql (U) 40 mg/dL Abnormal Neg-Trace [facility] ([place]) Comment on above: Performed By: #### U AMIC, UA ####[place] [address] UA Appear Clear Normal Clear [facility] ([place]) Comment on above: Performed By: #### U AMIC, UA ####[place] [address] UA Blood Trace Normal Neg-Trace [facility] ([place]) Comment on above: Performed By: #### U AMIC, UA ####[place] [address] UA Leuk Est Moderate Abnormal Negative [facility] ([place]) Comment on above: Performed By: #### U AMIC, UA ####[place] [address] UA Nitrite Negative Normal Negative [facility] ([place]) Comment on above: Performed By: #### U AMIC, UA ####[place] [address] UA pH 7.5 Normal 5.0 - 8.0 [facility] ([place]) Comment on above: Performed By: #### U AMIC, UA ####[place] [address] UA Protein Negative Normal Negative [facility] ([place]) Comment on above: Performed By: #### U AMIC, UA ####[place] [address] UA Spec Grav >=1.030 Abnormal 1.006-1.02 9 [facility] ([place]) Comment on above: Performed By: #### U AMIC, UA ####[place] [address] UA Specimen Type Catheter Normal [facility] ([place]) Comment on above: Performed By: #### U AMIC, UA ####[place] [address] UA Urobilinogen 1.0 E.U./dL Normal 0.2-1.0 [facility] ([place]) Comment on above: Performed By: #### U AMIC, UA ####[place] [address] Urobilinogen (U) [Mass/Vol] Negative Normal Neg-Trace [facility] ([place]) Comment on above: Performed By: #### U AMIC, UA ####[place] [address] UAMICon 05-05-2023 UA Bacteria Trace Abnormal Negative [facility] ([place]) Comment on above: Performed By: #### U AMIC, UA ####[place] [address] UA RBC 3-5 Abnormal 0-2 [facility] ([place]) Comment on above: Performed By: #### U AMIC, UA ####[place] [address] UA Squam Epithelial Rare Normal 0-20 [facility] ([place]) Comment on above: Performed By: #### U AMIC, UA ####Stephanie [id number] [place] [id number] UA WBC 5-10 Abnormal 0-5 [facility] ([place]) Comment on above: Performed By: #### U AMIC, UA ####[facility] [place] [address] XR CHEST 1 VIEWon 05-05-2023 XR CHEST 1 VIEW Normal [facility] ([place]) XR CHEST 1 VIEW Normal [facility] ([place]) XR ENTERIC TUBE PLACEMENTon 05-05-2023 XR ENTERIC TUBE PLACEMENT Normal [facility] ([place]) Absolute lymphocyte countOrd ered By: Kailyn Taylor on 04-13-2023 Lymphocytes Auto (Unsp spec) [#/Vol] 3.68 10*3/uL 0.83-4.51 [facility] Basophil percentageOrdered B y: Kailyn Taylor on 04-13-2023 Basophils/100 WBC (Bld) 0.5 % 0-1 [facility] Chloride [Moles/Vol] 101 mmol/L 98-107 [facility] Eosinophils/100 WBC (Bld) 0.9 % 0-5 [facility] Glucose [Mass/Vol] 203 mg/dL 74-106 [facility] Comment on above: Glucose result great er than or equal to 200 mg/dLsuggests DIABETES MELLITUS per A.D.A. criteria. Neutrophils (Bld) [#/Vol] 5.7 10*3/uL 2.0-7.7 [facility] Neutrophils/100 WBC (Bld) 53.7 % 47-70 [facility] Potassium [Moles/Vol] 3.8 mmol/L 3.5-5.1 [facility] Sodium [Moles/Vol] 138 mmol/L 136-145 [facility] WBC (Bld) [#/Vol] 10.6 10*3/uL 4.4-11.0 [facility] Blood erythrocytes count (nu mber/volume)Ordered By: Kailyn Taylor on 04-13-2023 RBC (Bld) [#/Vol] 5.32 10*6/uL 4.6-6.2 [facility] Blood hemoglobin measurement (mass/volume)Ordered By: Kailyn Taylor on 04-13-2023 Hemoglobin (Bld) [Mass/Vol] 15.3 g/dL 13.0-16.5 [facility] Blood lymphocytes/100 leukoc ytesOrdered By: Kailyn Taylor on 04-13-2023 Lymphocytes/100 WBC (Bld) 34.7 % 19-41 [facility] Blood monocytes/100 leukocyt esOrdered By: Kailyn Taylor on 04-13-2023 Monocytes/100 WBC (Bld) 9.7 % 0-[address] [facility] Blood platelet mean volumeOr dered By: Kailyn Taylor on 04-13-2023 Platelet mean volume (Bld) [Entitic vol] 10.0 fL 6.2-12.0 [facility] Determination of erythrocyte mean corpuscular volume (MCV)Ordered By: Kailyn Taylor on 04-13-2023 MCV (RBC) [Entitic vol] 91.0 fL 80-[address] [facility] Hematocrit Auto (Bld) [Volum e fraction]Ordered By: Kailyn Taylor on 04-13-2023 Hematocrit (Bld) [Volume fraction] 48.4 % 40-54 [facility] Influenza virus A and B and SARS-CoV-2 (COVID-19) Ag panel - Upper respiratory specimOrdered By: Pb Lenó on 04-13-2023 SARS-CoV-2 (COVID-19) RNA HIRAM+probe Ql (Resp) [facility] SARS-CoV-2 (COVID-19) RNA HIRAM+probe Ql (Resp) [facility] Laboratory - Chemistry and C hemistry - challengeOrdered By: Kailyn Taylor on 04-13-2023 CO2 [Moles/Vol] 31.0 mmol/L 21.0-32.0 [facility] Urea nitrogen/Creatinine [Mass ratio] 22.9 mg/mg 10-20 [facility] Laboratory - Drug toxicology Ordered By: Kailyn Taylor on 04-13-2023 Amphetamines Ql (U) Negative <1000 ng/mL [facility] Benzodiazepines Ql (U) Negative < 200 ng/mL [facility] Cannabinoids Screen Ql (U) Negative < 50 ng/mL [facility] Cocaine Ql (U) Negative < 300 ng/mL [facility] Opiates Ql (U) Negative < 300 ng/mL [facility] Laboratory - Hematology and Cell countsOrdered By: Kailyn Taylor on 04-13-2023 Erythrocyte distribution width (RBC) [Entitic vol] 43.9 fL 35.1-43.9 [facility] Erythrocyte distribution width (RBC) [Ratio] 13.2 % 11.6-14.6 [facility] Immature granulocytes/100 WBC (Bld) 0.500 % 0.0-0.9 [facility] Comment on above: IG% - Immature Granu locytes (promyelocytes, myelocytes and metamyelocytes) > 1% indicates that a LEFT SHIFT is Present. MCH (RBC) [Entitic mass] 28.8 pg 27.0-32.0 [facility] Nucleated RBC/100 WBC (Bld) [Ratio] 0 % 0-5 [facility] MCHC Auto (RBC) [Mass/Vol]Or dered By: Kailyn Taylor on 04-13-2023 MCHC (RBC) [Mass/Vol] 31.6 g/dL 32-36 [facility] No Panel InformationOrdered By: Kailyn Taylor on 04-13-2023 MDMA (Ecstasy) Screen Negative < 500 ng/mL [facility] Urine Barbiturates Screen Negative < 200 ng/mL [facility] Urine Drug Screen Comment [facility] Comment on above: CONFIRMATORY TESTING FOR ALL POSITIVE URINE DRUG SCREENRESULTS WILL ONLY BE SENT OUT UPON PHYSICIAN ORDER. VISTA Urine Drug Screen methods provide only preliminaryanalytical test results. A more specific alternate chemicalmethod must be used in order to obtain a confirmedanalytical result. Gas chromatography/mass spectrometery(GC/MS) is the preferred confirmatory method. Clinicalconsideration and professional judgement should be appliedto any drug of abuse test result, particularly whenpreliminary positive results are used. URINE TCA TESTING MUST BE ORDERED SEPARATELY. USE TESTMNEMONIC: [facility] Urine Methadone Screen Negative < 300 ng/mL [facility] Estimated Creatinine Clearance Calc 78.09 ml/min [facility] Estimated GFR (MDRD) Amer 87 mL/min >60 [facility] Comment on above: GFR Calc Estimated GFR (MDRD) Non-Af Amer 72 mL/min >60 [facility] Comment on above: Non- GFR Calc Ethyl Alcohol Level < 3.0 mg/dL [facility] Comment on above: The serum:whole bloo d ethanol ratio is approximately 1.14and varies slightly with hematocrit. Medical Alcohol reference interval and critical value innon-tolerant individuals; 50 - 100 Impairment 100 Intoxication 100 - 250 Severe Poisoning 250 - 400 Deep/possible fatal coma Platelets bldOrdered By: Curtis Taylor on 04-13-2023 Platelets (Bld) [#/Vol] 289 10*3/uL 150-450 [facility] Serum or plasma calcium diane urement (mass/volume)Ordered By: Kailyn Taylor on 04-13-2023 Calcium [Mass/Vol] 10.0 mg/dL 8.5-10.1 [facility] Serum or plasma creatinine m easurement (mass/volume)Ordered By: Kailyn Taylor on 04-13-2023 Creatinine [Mass/Vol] 1.18 mg/dL 0.70-1.30 [facility] Comment on above: The validity of the calculated GFR & GFRAA in patients over 70 years has not been determined. Clinical correlation is essential. Serum or plasma urea nitroge n measurement (mass/volume)Ordered By: Kailyn Taylor on 04-13-2023 Urea nitrogen [Mass/Vol] 27 mg/dL -18 [facility] Thin prep Papanicolaou smear with manual screeningOrdered By: Kailyn Taylor on 04-13-2023 Thin prep Papanicolaou smear with manual screening 6 5-15 [facility] Urine phencyclidine (PCP) de tectionOrdered By: Kailyn Taylor on 04-13-2023 Phencyclidine Ql (U) Negative < 25 ng/mL [facility] Comprehensive metabolic 2000 panelon 09-17-2022 Albumin [Mass/Vol] 4.6 g/dL 3.9 - 4.9 g/dL [facility] ALP [Catalytic activity/Vol] 89 U/L 38 - 113 U/L [facility] ALT [Catalytic activity/Vol] 53 U/L 10 - 54 U/L [facility] Anion gap [Moles/Vol] 15 mmol/L 9 - 18 mmol/L [facility] AST [Catalytic activity/Vol] 29 U/L 14 - 40 U/L [facility] Bilirubin [Mass/Vol] 0.3 mg/dL 0.2 - 1 .3 mg/dL [facility] Calcium [Mass/Vol] 9.6 mg/dL 8.5 - 10. 2 mg/dL [facility] Chloride [Moles/Vol] 96 mmol/L Low 97 - 10 5 mmol/L [facility] CO2 [Moles/Vol] 25 mmol/L 22 - 30 mmol/L [facility] Creatinine [Mass/Vol] 0.90 mg/dL 0.73 - 1.22 mg/dL [facility] Estimated Glomerular Filtration Rate 109 mL/min/1.73m >=60 mL/min/1.7 3m [facility] Glucose [Mass/Vol] 275 mg/dL High 74 - 99 mg/dL [facility] Potassium [Moles/Vol] 4.2 mmol/L 3.7 - 5.1 mmol/L [facility] Protein [Mass/Vol] 6.7 g/dL 6.3 - 8.0 g/dL [facility] Sodium [Moles/Vol] 136 mmol/L 136 - 144 mmol/L [facility] Urea nitrogen [Mass/Vol] 11 mg/dL 9 - 24 mg/dL [facility] HbA1c (Bld)on 09-17-2022 Average glucose Estimated from glycated hemoglobin (Bld) [Mass/Vol] 226 mg/dL [facility] HbA1c (Bld) [Mass fraction] 9.5 % High 4.3 - 5.6 % [facility] Lipid 1996 panelon 2 Cholesterol [Mass/Vol] 169 mg/dL <200 mg/dL [facility] Cholesterol in HDL [Mass/Vol] 29 mg/dL Low >39 mg/dL [facility] Cholesterol in LDL [Mass/Vol] 79 mg/dL <100 mg/dL [facility] Cholesterol in LDL/Cholesterol in HDL [Mass ratio] 2.72 {ratio} High <2.54 [facility] Cholesterol in VLDL [Mass/Vol] 61 mg/dL High <30 mg/dL [facility] Cholesterol non HDL [Mass/Vol] 140 mg/dL High <130 mg/dL [facility] Cholesterol.total/Roxi sterol in HDL [Mass ratio] 5.83 {ratio} High <5.10 [facility] Fasting Time 10 hrs [facility] Triglyceride [Mass/Vol] 307 mg/dL High <150 mg/dL [facility] TSH BLDon 09-17-2022 TSH Qn 3.510 m[IU]/L 0.270 - 4.200 mIU/L [facility] VALPROIC A/DEPAKENEon 2021 Valproate [Mass/Vol] 88.0 ug/mL 50.0 - 100.0 ug/mL [facility] Aniya 09-18-2021 ALT [Catalytic activity/Vol] 63 U/L High 10-54 [facility] Reference Lab Comment on above: Performed By: #### P LTCT, VITD, ALT, PHT, AST #### [facility] Routine Lab [address] [place] [address] Katie 09-18-2021 AST [Catalytic activity/Vol] 38 U/L Normal 14-40 [facility] Reference Lab Comment on above: Performed By: #### P LTCT, VITD, ALT, PHT, AST #### [facility] [employer] Routine [facility] [address] [place] [address] Phenytoinon 09-18-2021 Phenytoin [Mass/Vol] ug/mL Low 10.0-20.0 [facility] Reference Lab Comment on above: Performed By: #### P LTCT, VITD, ALT, PHT, AST #### [facility] [employer] [facility] Routine [facility] [address] [place] [phone] Platelet Counton 09-18-2021 Platelets (Bld) [#/Vol] 243 10*3/uL Normal 150-400 [facility] Reference Lab Comment on above: Performed By: #### P LTCT, VITD, ALT, PHT, AST #### [facility] [employer] [facility] Routine [facility] [address] [place] [id number] Vitamin D 25 Hydroxyon 09-18 Vitamin D 25 Hydroxy 24.0 ng/mL Low 31.0-80.0 [facility] Reference Lab Comment on above: Performed By: #### P LTCT, VITD, ALT, PHT, AST #### [facility]ine [facility] [address] [place] [address] Ammoniaon 09-17-2021 Ammonia Normal 16-60 [facility] Reference Lab Comment on above: Result Comment: Unab le to assay. Specimen improperly collected/handled. Unable to assay. Specimen too old to perform test. LAV OUT OF 2 HOUR REFRIGERATED STABILITY, NO FROZEN SPECIMEN WAS SENT, [id number] 2031 SP Account Credited Performed By: #### P LTCT, VITD, ALT, PHT, AST #### [facility] [address] [place] [address] Comp Metabolic Panelon 07-27 Albumin [Mass/Vol] 4.0 g/dL Normal 3.9-4.9 [facility] Reference Lab Comment on above: Performed By: #### C BCDIF, VPA, CMP #### [facility]ine [facility] [address] [place] [address] ALP [Catalytic activity/Vol] 69 U/L Normal 38-113 [facility] Reference Lab Comment on above: Performed By: #### C BCDIF, VPA, CMP #### [facility] [address] [place] [address] ALT [Catalytic activity/Vol] 46 U/L Normal 10-54 [facility] Reference Lab Comment on above: Performed By: #### C BCDIF, VPA, CMP #### [facility] [address] [place] [address] Anion gap [Moles/Vol] 15 mmol/L Normal 9-18 [facility] Reference Lab Comment on above: Performed By: #### C BCDIF, VPA, CMP #### [facility] [address] [place] [address] AST [Catalytic activity/Vol] 31 U/L Normal 14-40 [facility] Reference Lab Comment on above: Performed By: #### C BCDIF, VPA, CMP #### [facility] [address] [place] [address] Bilirubin Ql (U) 0.3 mg/dL Normal 0.2-1.3 [facility] Reference Lab Comment on above: Performed By: #### C BCDIF, VPA, CMP #### [facility] Routine [facility] [address] [place], [place] [address] Calcium [Mass/Vol] 9.2 mg/dL Normal 8.5-10.2 [facility] Reference Lab Comment on above: Performed By: #### C BCDIF, VPA, CMP #### [facility] [address] [place] [address] Chloride [Moles/Vol] 99 mmol/L Normal 97-105 [facility] Reference Lab Comment on above: Performed By: #### C BCDIF, VPA, CMP #### [facility] Routine Lab [address] [place] [address] CO2 [Moles/Vol] 28 mmol/L Normal 22-30 [facility] Reference Lab Comment on above: Performed By: #### C BCDIF, VPA, CMP #### [facility]ine [facility] [address] [place] [address] Creatinine [Mass/Vol] 0.76 mg/dL Normal 0.73-1.22 [facility] Reference Lab Comment on above: Performed By: #### C BCDIF, VPA, CMP #### [facility]ine [facility] [address] [place] [address] eGFR- Amer. >60 Normal [facility] Reference Lab Comment on above: Performed By: #### C BCDIF, VPA, CMP #### [facility] Routine [facility] [address] [place] [address] GFR/1.73 sq M predicted among non-blacks MDRD (S/P/Bld) [Vol rate/Area] mL/min/{1.73_m2} Normal [facility] Reference Lab Comment on above: Performed By: #### C BCDIF, VPA, CMP #### [facility]ine [facility] [address] [place], [place] [address] Glucose [Mass/Vol] 134 mg/dL High 74-99 [facility] Reference Lab Comment on above: Performed By: #### C BCDIF, VPA, CMP #### [facility]ine [facility] [address] [place], [place] [address] Potassium [Moles/Vol] 4.6 mmol/L Normal 3.7-5.1 [facility] Reference Lab Comment on above: Performed By: #### C BCDIF, VPA, CMP #### [facility]ine [facility] [address] [place], [place] [address] Protein [Mass/Vol] 6.8 g/dL Normal 6.3-8.0 [facility] Reference Lab Comment on above: Performed By: #### C BCCHENCHOF, VPA, CMP #### [facility]ine [facility] [address] [place], [place] [address] Sodium [Moles/Vol] 142 mmol/L Normal 136-144 [facility] Reference Lab Comment on above: Performed By: #### C BCCHENCHOF, VPA, CMP #### [facility] [address] [place], [place] [address] Urea nitrogen [Mass/Vol] 12 mg/dL Normal 9-24 [facility] Reference Lab Comment on above: Performed By: #### C BCDIF, VPA, CMP #### [facility] [address] [place], [place] [address] CBC and Differentialon 07-26 Abs Baso <0.03 Normal <0.11 [facility] Reference Lab Comment on above: Performed By: #### C BCDIF, VPA, CMP #### [facility] Routine [facility] [address] [place], [place] [address] Abs [place] 0.53 k/uL Normal <0.87 [facility] Reference Lab Comment on above: Performed By: #### C BCDIF, VPA, CMP #### [facility] Routine [facility] [address] [place] [address] Abs Neut 3.21 k/uL Normal 1.45-7.50 [facility] Reference Lab Comment on above: Performed By: #### C BCDIF, VPA, CMP #### [facility] Routine Lab [address] [place] [phone] Absolute nRBC <0.01 Normal <0.01 [facility] Reference Lab Comment on above: Performed By: #### C BCDIF, VPA, CMP #### [facility] Routine Lab [address] [place] [phone] Basophils/100 WBC (Bld) 0.3 % Normal [facility] Reference Lab Comment on above: Performed By: #### C BCDIF, VPA, CMP #### [facility] Routine Lab [address] [place] [phone] DTYPE ADIFF Normal [facility] Reference Lab Comment on above: Performed By: #### C BCDIF, VPA, CMP #### [facility] Routine Lab [address] [place], [place] [phone] Eosinophils (Bld) [#/Vol] 0.08 10*3/uL Normal <0.46 [facility] Reference Lab Comment on above: Performed By: #### C BCDIF, VPA, CMP #### [facility]ine [facility] [address] [place] [phone] Eosinophils/100 WBC (Bld) 1.3 % Normal [facility] Reference Lab Comment on above: Performed By: #### C BCDIF, VPA, CMP #### [facility] Routine Lab [address] [place], [place] [phone] Erythrocyte distribution width (RBC) [Ratio] 13.4 % Normal 11.5-15.0 [facility] Reference Lab Comment on above: Performed By: #### C BCDIF, VPA, CMP #### [facility] Routine Lab [address] [place], [place] [address] Hematocrit (Bld) [Volume fraction] 46.4 % Normal 39.0-51.0 [facility] Reference Lab Comment on above: Performed By: #### C BCDIF VPA, CMP #### [facility] Routine [facility] [address] [place], [place] [address] Hemoglobin (Bld) [Mass/Vol] 14.6 g/dL Normal 13.0-17.0 [facility] Reference Lab Comment on above: Performed By: #### C BCDIF, VPA, CMP #### [facility] Routine Lab [address] [place] [address] Lymphocytes (Bld) [#/Vol] 2.15 10*3/uL Normal 1.00-4.00 [facility] Reference Lab Comment on above: Performed By: #### C BCDIF VPA, CMP #### [facility] [address] [place], [place] [address] Lymphocytes/100 WBC (Bld) 35.9 % Normal [facility] Reference Lab Comment on above: Performed By: #### C BCDIF VPA, CMP #### [facility] Routine [facility] [address] [place], [place] [address] MCH (RBC) [Entitic mass] 29.6 pG Normal 26.0-34.0 [facility] Reference Lab Comment on above: Performed By: #### C BCDIF, VPA, CMP #### [facility] Routine [facility] [address] [place], [place] [address] MCHC (RBC) [Mass/Vol] 31.5 g/dL Normal 30.5-36.0 [facility] Reference Lab Comment on above: Performed By: #### C BCDIF, VPA, CMP #### [facility] [address] [place], [place] [address] MCV (RBC) [Entitic vol] 93.9 fL Normal 80.0-100.0 [facility] Reference Lab Comment on above: Performed By: #### C BCDIF, VPA, CMP #### [facility]ine [facility] [address] [place], [place] [address] Monocytes/100 WBC (Bld) 8.8 % Normal [facility] Reference Lab Comment on above: Performed By: #### C BCDIF, VPA, CMP #### [facility] Routine Lab [address] [place], [place] [address] Neutrophils/100 WBC (Bld) 53.7 % Normal [facility] Reference Lab Comment on above: Performed By: #### C BCDIF, VPA, CMP #### [facility] Routine [facility] [address] [place], [place] [address] NRBCs 0.0 /100 WBC Normal 0 [facility] Reference Lab Comment on above: Performed By: #### C BCDIF, VPA, CMP #### [facility] Routine Lab [address] [place], [place] [address] Platelet mean volume (Bld) [Entitic vol] 10.1 fL Normal 9.0-12.7 [facility] Reference Lab Comment on above: Performed By: #### C BCDIF, VPA, CMP #### [facility]ine [facility] [address] [place], [place] [address] Platelets (Bld) [#/Vol] 202 10*3/uL Normal 150-400 [facility] Reference Lab Comment on above: Performed By: #### C BCDIF, VPA, CMP #### [facility] Routine Lab [address] [place], [place] [address] RBC (Bld) [#/Vol] 4.94 10*6/uL Normal 4.20-6.00 [facility] Reference Lab Comment on above: Performed By: #### C BCDIF, VPA, CMP #### [facility] Routine Lab [address] [place], [place] [address] WBC (Bld) [#/Vol] 5.99 10*3/uL Normal 3.70-11.00 [facility] Reference Lab Comment on above: Performed By: #### C BCDIF, VPA, CMP #### [facility] Routine Lab [address] [place] [address] Valproic Acidon 07-26-2019 Valproic Acid 70.8 ug/mL Normal 50-100 [facility] Reference Lab Comment on above: Performed By: #### C BCDIF, VPA, CMP #### [facility] Routine Lab [address] [place] [address] Comp Metabolic Panelon 10-28 Albumin [Mass/Vol] 4.1 g/dL Normal 3.9-4.9 [facility] Reference Lab Comment on above: Performed By: #### C BC, VPA, CMP #### [facility] Routine Lab [address] [place] [address] ALP [Catalytic activity/Vol] 74 U/L Normal 38-113 [facility] Reference Lab Comment on above: Performed By: #### C BC, VPA, CMP #### [facility] Routine [facility] [address] [address] ALT [Catalytic activity/Vol] 58 U/L High 10-54 [facility] Reference Lab Comment on above: Performed By: #### C BC, VPA, CMP #### [facility] Routine Lab [address] [place], [place] [address] Anion gap [Moles/Vol] 13 mmol/L Normal 9-18 [facility] Reference Lab Comment on above: Performed By: #### C BC, VPA, CMP #### [facility] Routine Lab [address] [place], [place] [address] AST [Catalytic activity/Vol] 37 U/L Normal 14-40 [facility] Reference Lab Comment on above: Performed By: #### C BC, VPA, CMP #### [facility] Routine Lab [address] [place], [place] [phone] Bilirubin Ql (U) 0.3 mg/dL Normal 0.2-1.3 [facility] Reference Lab Comment on above: Performed By: #### C BC, VPA, CMP #### [facility] Routine Lab [address] [place], [place] [address] Calcium [Mass/Vol] 9.0 mg/dL Normal 8.5-10.2 [facility] Reference Lab Comment on above: Performed By: #### C BC, VPA, CMP #### [facility] Routine Lab [address] [place], [place] [address] Chloride [Moles/Vol] 98 mmol/L Normal 97-105 [facility] Reference Lab Comment on above: Performed By: #### C BC, VPA, CMP #### [facility] Routine Lab [address] [place], [place] [address] CO2 [Moles/Vol] 28 mmol/L Normal 22-30 [facility] Reference Lab Comment on above: Performed By: #### C BC, VPA, CMP #### [facility] Routine Lab [address] [place], [place] [address] Creatinine [Mass/Vol] 0.74 mg/dL Normal 0.73-1.22 [facility] Reference Lab Comment on above: Performed By: #### C BC, VPA, CMP #### [facility] Routine Lab [address] [place], [place] [address] eGFR- Amer. >60 Normal [facility] Reference Lab Comment on above: Performed By: #### C BC, VPA, CMP #### [facility] Routine Lab [address] [place], [place] [address] GFR/1.73 sq M predicted among non-blacks MDRD (S/P/Bld) [Vol rate/Area] mL/min/{1.73_m2} Normal [facility] Reference Lab Comment on above: Performed By: #### C BC, VPA, CMP #### [facility] Routine [facility] [address] [place], [place] [address] Glucose [Mass/Vol] 172 mg/dL High 74-99 [facility] Reference Lab Comment on above: Performed By: #### C BC, VPA, CMP #### [facility] Routine Lab [address] [place], [place] [address] Potassium [Moles/Vol] 4.6 mmol/L Normal 3.7-5.1 [facility] Reference Lab Comment on above: Performed By: #### C BC, VPA, CMP #### [facility] [facility] [address] [place], [place] [address] Protein [Mass/Vol] 6.8 g/dL Normal 6.3-8.0 [facility] Comment on above: Performed By: #### C BC, VPA, CMP #### [facility] [address] [place], [place] [address] Sodium [Moles/Vol] 139 mmol/L Normal 136-144 [facility] Comment on above: Performed By: #### C BC, VPA, CMP #### [facility] [address] [place], [place] [address] Urea nitrogen [Mass/Vol] 14 mg/dL Normal 9-24 [facility] Comment on above: Performed By: #### C BC, VPA, CMP #### [facility] [address] [place], [place] [address] CBCon 10-27-2018 Absolute nRBC <0.01 Normal <0.01 [facility] Comment on above: Performed By: #### C BC, VPA, CMP #### [facility] [address] [place], [place] [address] Erythrocyte distribution width (RBC) [Ratio] 13.6 % Normal 11.5-15.0 [facility] Comment on above: Performed By: #### C BC, VPA, CMP #### [facility] [address] [place], [place] [address] Hematocrit (Bld) [Volume fraction] 42.2 % Normal 39.0-51.0 [facility] Comment on above: Performed By: #### C BC, VPA, CMP #### [facility] [address] [place], [place] [address] Hemoglobin (Bld) [Mass/Vol] 13.7 g/dL Normal 13.0-17.0 [facility] Comment on above: Performed By: #### C BC, VPA, CMP #### [facility] [address] [place], [place] [address] MCH (RBC) [Entitic mass] 28.8 pG Normal 26.0-34.0 [facility] Comment on above: Performed By: #### C BC VPA, CMP #### [facility] [address] [place], [place] [address] MCHC (RBC) [Mass/Vol] 32.5 g/dL Normal 30.5-36.0 [facility] Reference Lab Comment on above: Performed By: #### C BC, VPA, CMP #### [facility] [address] [place], [place] [address] MCV (RBC) [Entitic vol] 88.7 fL Normal 80.0-100.0 [facility] Reference Lab Comment on above: Performed By: #### C BC, VPA, CMP #### [facility] [address] [place], [place] [address] Platelet mean volume (Bld) [Entitic vol] 10.0 fL Normal 9.0-12.7 [facility] Comment on above: Performed By: #### C BC, VPA, CMP #### [facility] [address] [place], [place] [address] Platelets (Bld) [#/Vol] 178 10*3/uL Normal 150-400 [facility] Comment on above: Performed By: #### C BC, VPA, CMP #### [facility] [address] [place] [address] RBC (Bld) [#/Vol] 4.76 10*6/uL Normal 4.20-6.00 [facility] Reference Lab Comment on above: Performed By: #### C BC, VPA, CMP #### [facility] Routine Lab [address] [place] [address] WBC (Bld) [#/Vol] 4.42 10*3/uL Normal 3.70-11.00 [facility] Reference Lab Comment on above: Performed By: #### C BC, VPA, CMP #### [facility] [address] [place] [address] Valproic Acidon 10-27-2018 Valproic Acid 65.1 ug/mL Normal 50-100 [facility] Comment on above: Performed By: #### C BC, VPA, CMP #### [facility] Routine Lab [address] [place] [address] CRPon 02-10-2018 C reactive protein (CRP) 1.08 mg/dL High 0.00-0.30 [facility] Comment on above: Performed By: #### C RP3 ####[place] [address] Comprehensive Panelon 2017 Alkaline phosphatase (ALP) 76 U/L Normal 46-116 [facility] Comment on above: Performed By: #### P 14 ####[address] [address] Bilirubin Ql (U) 0.2 mg/dL Normal 0.2-1.0 [facility] Comment on above: Performed By: #### P 14 ####[facility] [place], [place] [address] Protein 6.7 g/dL Normal 6.4-8.2 [facility] Comment on above: Performed By: #### P 14 ####[address] [address] Alanine aminotransferase (ALT) 30 U/L Normal 12-78 [facility] Comment on above: Performed By: #### P 14 ####[facility] [place], [place] [address] Aspartate aminotransferase (AST) 18 U/L Normal 9-37 [facility] Comment on above: Performed By: #### P 14 ####[facility] [place], [place] [address] Creatinine 0.79 mg/dL Normal 0.67-1.17 [facility] Comment on above: Performed By: #### P 14 ####[facility] [place] [address] Albumin 3.3 g/dL Low 3.4-5.0 [facility] Comment on above: Performed By: #### P 14 ####[facility] [place] [address] Glucose mass conc 100 mg/dL High 70-99 [facility] Comment on above: Performed By: #### P 14 ####[facility] [place] [address] Urea nitrogen 13 mg/dL Normal 7-18 [facility] Comment on above: Performed By: #### P 14 ####[facility] [place], [place] [address] Anion gap 8 mmol/L Normal 8-16 [facility] Comment on above: Performed By: #### P 14 ####[address] [address] Calcium 9.1 mg/dL Normal 8.5-10.1 [facility] Comment on above: Performed By: #### P 14 ####[facility] [place], [place] [address] CO2 28 mmol/L Normal 21-32 [facility] Comment on above: Performed By: #### P 14 ####[facility] [place] [address] Chloride 107 mmol/L Normal 98-107 [facility] Comment on above: Performed By: #### P 14 ####[place] [address] Potassium molar conc 4.6 mmol/L Normal 3.5-5.1 [facility] Comment on above: Performed By: #### P 14 ####[place] [address] Sodium 138 mmol/L Normal 136-145 [facility] Comment on above: Performed By: #### P 14 ####[place] [address] Hemogram/Diffon 02-10-2018 Abs Immature Grans 0.06 thou/cmm High 0.00-0.05 [facility] Comment on above: Performed By: #### C BCD1 ####[place] [address] Abs. Baso 0.02 thou/cmm Normal 0.01-0.08 [facility] Comment on above: Performed By: #### C BCD1 ####[place] [address] Abs. Hat[place] 0.72 thou/cmm Normal 0.30-0.82 [facility] Comment on above: Performed By: #### C BCD1 ####[place] [address] Abs. Neut 4.54 thou/cmm Normal 1.78-5.38 [facility] Comment on above: Performed By: #### C BCD1 ####[place] [address] Basophils/100 WBC Auto (Bld) 0.3 % Normal [facility] Comment on above: Performed By: #### C BCD1 ####[place] [address] Eosinophils 0.09 thou/cmm Normal 0.04-0.54 [facility] Comment on above: Performed By: #### C BCD1 ####[place] [address] Eosinophils/100 leukocytes 1.2 % Normal [facility] Comment on above: Performed By: #### C BCD1 ####[facility], [place] [address] Erythrocyte distribution width Auto Ratio (RBC) 13.2 % Normal 11.6-14.4 [facility] Comment on above: Performed By: #### C BCD1 ####[address] [address] Erythrocytes (RBC) 4.80 mil/cmm Normal 4.63-6.08 [facility] Comment on above: Performed By: #### C BCD1 ####[address] [address] Hematocrit (HCT) 42.1 % Normal 40.1-51.0 [facility] Comment on above: Performed By: #### C BCD1 ####[address] [address] Hemoglobin mass conc (Bld) 14.0 g/dL Normal 13.7-17.5 [facility] Comment on above: Performed By: #### C BCD1 ####[place] [address] Immature Grans 0.80 % Normal [facility] Comment on above: Performed By: #### C BCD1 ####[address] [address] Lymphocytes 2.07 thou/cmm Normal 0.84-2.85 [facility] Comment on above: Performed By: #### C BCD1 ####[address] [address] Lymphocytes/100 leukocytes 27.6 % Normal [facility] Comment on above: Performed By: #### C BCD1 ####[address] [address] MCH 29.2 pg Normal 25.7-32.2 [facility] Comment on above: Performed By: #### C BCD1 ####[address] [address] MCHC mass conc (RBC) 33.3 % Normal 32.3-36.5 [facility] Comment on above: Performed By: #### C BCD1 ####[place] [address] MCV 87.7 fL Normal 83.2-95.6 [facility] Comment on above: Performed By: #### C BCD1 ####[facility] [place], [place] [address] Monocytes/100 leukocytes 9.6 % Normal [facility] Comment on above: Performed By: #### C BCD1 ####[address] [address] Platelet mean volume (PMV) 9.8 fL Normal 8.7-12.0 [facility] Comment on above: Performed By: #### C BCD1 ####[address] [address] Platelets 229 thou/cmm Normal 141-365 [facility] Comment on above: Performed By: #### C BCD1 ####[address] [address] RDW SD 42.0 fl Normal 36.1-45.8 [facility] Comment on above: Performed By: #### C BCD1 ####[address] [address] Seg Neutrophil 60.5 % Normal [facility] Comment on above: Performed By: #### C BCD1 ####[address] [address] WBC (Leukocytes) 7.51 thou/cmm Normal 4.23-9.07 [facility] Comment on above: Performed By: #### C BCD1 ####[address] [address] MDRD GFRon 02-10-2018 eGFR (non-black) mL/min/{1.73_m2} Normal >60mL/m in/ 1.73m2 [facility] Comment on above: Result Comment: If t he patient is , multiply the result by 1.210. Performed By: #### G FR ####[address] [address] Sed Rateon 02-10-2018 Sed Rate 7 mm/hr Normal 0-15 [facility] Comment on above: Performed By: #### E SR ####[facility] [place], [place] [address] Comprehensive Panelon 2017 Anion gap 12 mmol/L Normal 8-16 [facility] Comment on above: Performed By: #### P 14 ####[facility] [place], [place] [address] Sodium 140 mmol/L Normal 136-145 [facility] Comment on above: Performed By: #### P 14 ####[place] [address] Comprehensive Panelon 2017 Alkaline phosphatase (ALP) 87 U/L Normal 46-116 [facility] Comment on above: Performed By: #### P 14 ####[address] [address] Bilirubin Ql (U) 0.3 mg/dL Normal 0.2-1.0 [facility] Comment on above: Performed By: #### P 14 ####[address] [address] Protein 6.9 g/dL Normal 6.4-8.2 [facility] Comment on above: Performed By: #### P 14 ####[address] [address] Alanine aminotransferase (ALT) 37 U/L Normal 12-78 [facility] Comment on above: Performed By: #### P 14 ####[address] [address] Aspartate aminotransferase (AST) 17 U/L Normal 9-37 [facility] Comment on above: Performed By: #### P 14 ####[address] [address] Creatinine 0.76 mg/dL Normal 0.67-1.17 [facility] Comment on above: Performed By: #### P 14 ####[address] [address] Albumin 3.5 g/dL Normal 3.4-5.0 [facility] Comment on above: Performed By: #### P 14 ####[address] [address] Calcium 9.0 mg/dL Normal 8.5-10.1 [facility] Comment on above: Performed By: #### P 14 ####[facility] [place] [address] CO2 30 mmol/L Normal 21-32 [facility] Comment on above: Performed By: #### P 14 ####[facility] [place] [address] Glucose mass conc 115 mg/dL High 70-99 [facility] Comment on above: Performed By: #### P 14 ####[place] [address] Urea nitrogen 15 mg/dL Normal 7-18 [facility] Comment on above: Performed By: #### P 14 ####[place] [address] Chloride 102 mmol/L Normal 98-107 [facility] Comment on above: Performed By: #### P 14 ####[place] [address] Potassium molar conc 4.4 mmol/L Normal 3.5-5.1 [facility] Comment on above: Performed By: #### P 14 ####[place] [address] Hemogram/Diffon 01-05-2018 Abs Immature Grans 0.02 thou/cmm Normal 0.00-0.05 [facility] Comment on above: Performed By: #### C BCD1 ####[place] [address] Abs. Baso 0.02 thou/cmm Normal 0.01-0.08 [facility] Comment on above: Performed By: #### C BCD1 ####[place] [address] Abs. Hat[place] 0.40 thou/cmm Normal 0.30-0.82 [facility] Comment on above: Performed By: #### C BCD1 ####[place] [address] Abs. Neut 3.05 thou/cmm Normal 1.78-5.38 [facility] Comment on above: Performed By: #### C BCD1 ####[address] [address] Basophils/100 WBC Auto (Bld) 0.4 % Normal [facility] Comment on above: Performed By: #### C BCD1 ####[address] [address] Eosinophils 0.13 thou/cmm Normal 0.04-0.54 [facility] Comment on above: Performed By: #### C BCD1 ####[address] [address] Eosinophils/100 leukocytes 2.4 % Normal [facility] Comment on above: Performed By: #### C BCD1 ####[place] [address] Erythrocyte distribution width Auto Ratio (RBC) 13.1 % Normal 11.6-14.4 [facility] Comment on above: Performed By: #### C BCD1 ####[address] [address] Erythrocytes (RBC) 4.66 mil/cmm Normal 4.63-6.08 [facility] Comment on above: Performed By: #### C BCD1 ####[address] [address] Hematocrit (HCT) 40.6 % Normal 40.1-51.0 [facility] Comment on above: Performed By: #### C BCD1 ####[place] [address] Hemoglobin mass conc (Bld) 13.9 g/dL Normal 13.7-17.5 [facility] Comment on above: Performed By: #### C BCD1 ####[place] [address] Immature Grans 0.40 % Normal [facility] Comment on above: Performed By: #### C BCD1 ####[place] [address] Lymphocytes 1.85 thou/cmm Normal 0.84-2.85 [facility] Comment on above: Performed By: #### C BCD1 ####[facility] [place], [place] [address] Lymphocytes/100 leukocytes 33.8 % Normal [facility] Comment on above: Performed By: #### C BCD1 ####[facility] [place], [place] [address] MCH 29.8 pg Normal 25.7-32.2 [facility] Comment on above: Performed By: #### C BCD1 ####[address] [address] MCHC mass conc (RBC) 34.2 % Normal 32.3-36.5 [facility] Comment on above: Performed By: #### C BCD1 ####[address] [address] MCV 87.1 fL Normal 83.2-95.6 [facility] Comment on above: Performed By: #### C BCD1 ####[address] [address] Monocytes/100 leukocytes 7.3 % Normal [facility] Comment on above: Performed By: #### C BCD1 ####[address] [address] Platelet mean volume (PMV) 10.1 fL Normal 8.7-12.0 [facility] Comment on above: Performed By: #### C BCD1 ####[address] [address] Platelets 233 thou/cmm Normal 141-365 [facility] Comment on above: Performed By: #### C BCD1 ####[address] [address] RDW SD 41.1 fl Normal 36.1-45.8 [facility] Comment on above: Performed By: #### C BCD1 ####[address] [address] Seg Neutrophil 55.7 % Normal [facility] Comment on above: Performed By: #### C BCD1 ####[facility] [place], [place] [address] WBC (Leukocytes) 5.48 thou/cmm Normal 4.23-9.07 [facility] Comment on above: Performed By: #### C BCD1 ####[facility] [place], [place] [address] MDRD GFRon 01-05-2018 eGFR (non-black) mL/min/{1.73_m2} Normal >60mL/m in/ 1.73m2 [facility] Comment on above: Result Comment: If t he patient is , multiply the result by 1.210. Performed By: #### G FR ####[place] [address] CRPon 12-29-2017 C reactive protein (CRP) 1.06 mg/dL High 0.00-0.30 [facility] Comment on above: Performed By: #### G FR ####[place] [address] Comprehensive Panelon 2017 Alkaline phosphatase (ALP) 100 U/L Normal 46-116 [facility] Comment on above: Performed By: #### G FR ####[place] [address] Bilirubin Ql (U) 0.2 mg/dL Normal 0.2-1.0 [facility] Comment on above: Performed By: #### G FR ####[place] [address] Protein 6.4 g/dL Normal 6.4-8.2 [facility] Comment on above: Performed By: #### G FR ####[address] [address] Alanine aminotransferase (ALT) 35 U/L Normal 12-78 [facility] Comment on above: Performed By: #### G FR ####[place] [address] Aspartate aminotransferase (AST) 17 U/L Normal 9-37 [facility] Comment on above: Performed By: #### G FR ####[facility] [place], [place] [address] Creatinine 0.81 mg/dL Normal 0.67-1.17 [facility] Comment on above: Performed By: #### G FR ####[facility] [place], [place] [address] Glucose mass conc 119 mg/dL High 70-99 [facility] Comment on above: Performed By: #### G FR ####[facility] [place], [place] [address] Albumin 3.3 g/dL Low 3.4-5.0 [facility] Comment on above: Performed By: #### G FR ####[facility] [place], [place] [address] Anion gap 7 mmol/L Low 8-16 [facility] Comment on above: Performed By: #### G FR ####[address] [address] Calcium 8.7 mg/dL Normal 8.5-10.1 [facility] Comment on above: Performed By: #### G FR ####[facility] [place], [place] [address] CO2 30 mmol/L Normal 21-32 [facility] Comment on above: Performed By: #### G FR ####[facility] [place], [place] [address] Urea nitrogen 13 mg/dL Normal 7-18 [facility] Comment on above: Performed By: #### G FR ####[facility] [place], [place] [address] Chloride 106 mmol/L Normal 98-107 [facility] Comment on above: Performed By: #### G FR ####[facility] [place], [place] [address] Potassium molar conc 4.4 mmol/L Normal 3.5-5.1 [facility] Comment on above: Performed By: #### G FR ####[facility] [place], [place] [address] Sodium 139 mmol/L Normal 136-145 [facility] Comment on above: Performed By: #### G FR ####[facility] [place] [address] Hemogram/Diffon 12-29-2017 Abs Immature Grans 0.02 thou/cmm Normal 0.00-0.05 [facility] Comment on above: Performed By: #### G FR ####[facility] [place] [address] Abs. Baso 0.02 thou/cmm Normal 0.01-0.08 [facility] Comment on above: Performed By: #### G FR ####[place] [address] Abs. [place] 0.40 thou/cmm Normal 0.30-0.82 [facility] Comment on above: Performed By: #### G FR ####[place] [address] Abs. Neut 2.48 thou/cmm Normal 1.78-5.38 [facility] Comment on above: Performed By: #### G FR ####[place] [address] Basophils/100 WBC Auto (Bld) 0.4 % Normal [facility] Comment on above: Performed By: #### G FR ####[place] [address] Eosinophils 0.15 thou/cmm Normal 0.04-0.54 [facility] Comment on above: Performed By: #### G FR ####[place] [address] Eosinophils/100 leukocytes 3.1 % Normal [facility] Comment on above: Performed By: #### G FR ####[place] [address] Erythrocyte distribution width Auto Ratio (RBC) 13.2 % Normal 11.6-14.4 [facility] Comment on above: Performed By: #### G FR ####[place] [address] Erythrocytes (RBC) 4.25 mil/cmm Low 4.63-6.08 [facility] Comment on above: Performed By: #### G FR ####[facility] [place], [place] [address] Hematocrit (HCT) 37.5 % Low 40.1-51.0 [facility] Comment on above: Performed By: #### G FR ####[facility] [place] [address] Hemoglobin mass conc (Bld) 12.6 g/dL Low 13.7-17.5 [facility] Comment on above: Performed By: #### G FR ####[facility] [place] [address] Immature Grans 0.40 % Normal [facility] Comment on above: Performed By: #### G FR ####[place] [address] Lymphocytes 1.71 thou/cmm Normal 0.84-2.85 [facility] Comment on above: Performed By: #### G FR ####[facility] [place], [place] [address] Lymphocytes/100 leukocytes 35.8 % Normal [facility] Comment on above: Performed By: #### G FR ####[place] [address] MCH 29.6 pg Normal 25.7-32.2 [facility] Comment on above: Performed By: #### G FR ####[address] [address] MCHC mass conc (RBC) 33.6 % Normal 32.3-36.5 [facility] Comment on above: Performed By: #### G FR ####[address] [address] MCV 88.2 fL Normal 83.2-95.6 [facility] Comment on above: Performed By: #### G FR ####[address] [address] Monocytes/100 leukocytes 8.4 % Normal [facility] Comment on above: Performed By: #### G FR ####[address] [address] Platelet mean volume (PMV) 10.2 fL Normal 8.7-12.0 [facility] Comment on above: Performed By: #### G FR ####[facility] [place], [place] [address] Platelets 213 thou/cmm Normal 141-365 [facility] Comment on above: Performed By: #### G FR ####[facility] [place], [place] [address] RDW SD 42.2 fl Normal 36.1-45.8 [facility] Comment on above: Performed By: #### G FR ####[place] [address] Seg Neutrophil 51.9 % Normal [facility] Comment on above: Performed By: #### G FR ####[place] [address] WBC (Leukocytes) 4.78 thou/cmm Normal 4.23-9.07 [facility] Comment on above: Performed By: #### G FR ####[place] [address] MDRD GFRon 12-29-2017 eGFR (non-black) mL/min/{1.73_m2} Normal >60mL/m in/ 1.73m2 [facility] Comment on above: Result Comment: If t he patient is , multiply the result by 1.210. Performed By: #### G FR ####[place] [address] Sed Rateon 12-29-2017 Sed Rate 8 mm/hr Normal 0-15 [facility] Comment on above: Performed By: #### G FR ####[place] [address] CRPon 12-22-2017 C reactive protein (CRP) 0.91 mg/dL High 0.00-0.30 [facility] Comment on above: Performed By: #### G FR ####[place] [address] Comprehensive Panelon 2017 Alkaline phosphatase (ALP) 77 U/L Normal 46-116 [facility] Comment on above: Performed By: #### G FR ####[facility] [place], [place] [address] Bilirubin Ql (U) 0.3 mg/dL Normal 0.2-1.0 [facility] Comment on above: Performed By: #### G FR ####[facility] [place], [place] [address] Protein 7.0 g/dL Normal 6.4-8.2 [facility] Comment on above: Performed By: #### G FR ####[facility] [place], [place] [address] Alanine aminotransferase (ALT) 31 U/L Normal 12-78 [facility] Comment on above: Performed By: #### G FR ####[address] [address] Aspartate aminotransferase (AST) 18 U/L Normal 9-37 [facility] Comment on above: Performed By: #### G FR ####[facility] [place], [place] [address] Creatinine 0.85 mg/dL Normal 0.67-1.17 [facility] Comment on above: Performed By: #### G FR ####[facility] [place], [place] [address] Albumin 3.3 g/dL Low 3.4-5.0 [facility] Comment on above: Performed By: #### G FR ####[facility] [place], [place] [address] Glucose mass conc 97 mg/dL Normal 70-99 [facility] Comment on above: Performed By: #### G FR ####[facility] [place], [place] [address] Urea nitrogen 14 mg/dL Normal 7-18 [facility] Comment on above: Performed By: #### G FR ####[address] [address] Anion gap 6 mmol/L Low 8-16 [facility] Comment on above: Performed By: #### G FR ####[facility] [place] [address] Calcium 9.0 mg/dL Normal 8.5-10.1 [facility] Comment on above: Performed By: #### G FR ####[facility] [place] [address] CO2 33 mmol/L High 21-32 [facility] Comment on above: Performed By: #### G FR ####[facility] [place] [address] Chloride 103 mmol/L Normal 98-107 [facility] Comment on above: Performed By: #### G FR ####[place] [address] Potassium molar conc 4.2 mmol/L Normal 3.5-5.1 [facility] Comment on above: Performed By: #### G FR ####[place] [address] Sodium 138 mmol/L Normal 136-145 [facility] Comment on above: Performed By: #### G FR ####[place] [address] Hemogram/Diffon 12-22-2017 Abs Immature Grans 0.02 thou/cmm Normal 0.00-0.05 [facility] Comment on above: Performed By: #### C RP3 ####[place] [address] Abs. Baso 0.02 thou/cmm Normal 0.01-0.08 [facility] Comment on above: Performed By: #### C RP3 ####[place] [address] Abs. [place] 0.39 thou/cmm Normal 0.30-0.82 [facility] Comment on above: Performed By: #### C RP3 ####[place] [address] Abs. Neut 3.57 thou/cmm Normal 1.78-5.38 [facility] Comment on above: Performed By: #### C RP3 ####[facility] [place], [place] [address] Basophils/100 WBC Auto (Bld) 0.3 % Normal [facility] Comment on above: Performed By: #### C RP3 ####[facility] [place], [place] [address] Eosinophils 0.19 thou/cmm Normal 0.04-0.54 [facility] Comment on above: Performed By: #### C RP3 ####[address] [address] Eosinophils/100 leukocytes 3.3 % Normal [facility] Comment on above: Performed By: #### C RP3 ####[place] [address] Erythrocyte distribution width Auto Ratio (RBC) 13.0 % Normal 11.6-14.4 [facility] Comment on above: Performed By: #### C RP3 ####[place] [address] Erythrocytes (RBC) 4.41 mil/cmm Low 4.63-6.08 [facility] Comment on above: Performed By: #### C RP3 ####[place] [address] Hematocrit (HCT) 38.6 % Low 40.1-51.0 [facility] Comment on above: Performed By: #### C RP3 ####[place] [address] Hemoglobin mass conc (Bld) 13.2 g/dL Low 13.7-17.5 [facility] Comment on above: Performed By: #### C RP3 ####[place] [address] Immature Grans 0.30 % Normal [facility] Comment on above: Performed By: #### C RP3 ####[place] [address] Lymphocytes 1.62 thou/cmm Normal 0.84-2.85 [facility] Comment on above: Performed By: #### C RP3 ####[address], [place] [address] Lymphocytes/100 leukocytes 27.9 % Normal [facility] Comment on above: Performed By: #### C RP3 ####[facility] [place], [place] [address] MCH 29.9 pg Normal 25.7-32.2 [facility] Comment on above: Performed By: #### C RP3 ####[facility] [place], [place] [address] MCHC mass conc (RBC) 34.2 % Normal 32.3-36.5 [facility] Comment on above: Performed By: #### C RP3 ####[address] [address] MCV 87.5 fL Normal 83.2-95.6 [facility] Comment on above: Performed By: #### C RP3 ####[address] [address] Monocytes/100 leukocytes 6.7 % Normal [facility] Comment on above: Performed By: #### C RP3 ####[address] [address] Platelet mean volume (PMV) 10.6 fL Normal 8.7-12.0 [facility] Comment on above: Performed By: #### C RP3 ####[address] [address] Platelets 188 thou/cmm Normal 141-365 [facility] Comment on above: Performed By: #### C RP3 ####[address] [address] RDW SD 40.9 fl Normal 36.1-45.8 [facility] Comment on above: Performed By: #### C RP3 ####[address] [address] Seg Neutrophil 61.5 % Normal [facility] Comment on above: Performed By: #### C RP3 ####[address] [address] WBC (Leukocytes) 5.81 thou/cmm Normal 4.23-9.07 [facility] Comment on above: Performed By: #### C RP3 ####[place] [address] MDRD GFRon 12-22-2017 eGFR (non-black) mL/min/{1.73_m2} Normal >60mL/m in/ 1.73m2 [facility] Comment on above: Result Comment: If t he patient is , multiply the result by 1.210. Performed By: #### G FR ####[place] [address] Sed Rateon 12-22-2017 Sed Rate 7 mm/hr Normal 0-15 [facility] Comment on above: Performed By: #### G FR ####[place] [address] CRPon 12-15-2017 C reactive protein (CRP) 0.91 mg/dL High 0.00-0.30 [facility] Comment on above: Performed By: #### C RP3 ####[place] [address] Comprehensive Panelon 2017 Albumin 3.3 g/dL Low 3.4-5.0 [facility] Comment on above: Performed By: #### C RP3 ####[place] [address] Alkaline phosphatase (ALP) 82 U/L Normal 46-116 [facility] Comment on above: Performed By: #### C RP3 ####[place] [address] ALT-SGPT Blood 37 U/L Normal 12-78 [facility] Comment on above: Performed By: #### C RP3 ####[place] [address] Anion gap 8 mmol/L Normal 8-20 [facility] Comment on above: Performed By: #### C RP3 ####[place] [address] AST-SGOT Blood 21 U/L Normal 15-37 [facility] Comment on above: Performed By: #### C RP3 ####[facility] [place], [place] [address] Bilirubin Ql (U) 0.3 mg/dL Normal 0.2-1.0 [facility] Comment on above: Performed By: #### C RP3 ####[facility] [place], [place] [address] BUN (urea nitrogen) 17 mg/dL Normal 7-25 [facility] Comment on above: Performed By: #### C RP3 ####[facility] [place], [place] [address] BUN/Creatinine Ratio 21 mg/mg High 10-20 [facility] Comment on above: Performed By: #### C RP3 ####[address] [address] Calcium 9.1 mg/dL Normal 8.5-10.1 [facility] Comment on above: Performed By: #### C RP3 ####[place] [address] Chloride 105 mmol/L Normal 98-107 [facility] Comment on above: Performed By: #### C RP3 ####[place] [address] CO2 30 mmol/L Normal 21-32 [facility] Comment on above: Performed By: #### C RP3 ####[address] [address] Creatinine 0.83 mg/dL Normal 0.67-1.17 [facility] Comment on above: Performed By: #### C RP3 ####[facility] [place], [place] [address] Glucose mass conc 89 mg/dL Normal 70-99 [facility] Comment on above: Performed By: #### C RP3 ####[place] [address] Potassium molar conc 4.6 mmol/L Normal 3.5-5.1 [facility] Comment on above: Performed By: #### C RP3 ####[place] [address] Protein 7.0 g/dL Normal 6.4-8.2 [facility] Comment on above: Performed By: #### C RP3 ####[place] [address] Sodium 138 mmol/L Normal 136-145 [facility] Comment on above: Performed By: #### C RP3 ####[place] [address] Hemogram/Diffon 12-15-2017 Abs. Baso 0.02 thou/cmm Normal 0.00-0.08 [facility] Comment on above: Performed By: #### C RP3 ####[place] [address] Abs. [place] 0.44 thou/cmm Normal 0.20-1.00 [facility] Comment on above: Performed By: #### C RP3 ####[place] [address] Abs. Neut 3.20 thou/cmm Normal 3.00-5.67 [facility] Comment on above: Performed By: #### C RP3 ####[address] [address] Basophils/100 WBC Auto (Bld) 0.3 % Normal [facility] Comment on above: Performed By: #### C RP3 ####[address] [address] Eosinophils 0.13 thou/cmm Normal 0.00-0.41 [facility] Comment on above: Performed By: #### C RP3 ####[address] [address] Eosinophils/100 leukocytes 2.3 % Normal [facility] Comment on above: Performed By: #### C RP3 ####[place] [address] Erythrocyte distribution width Auto Ratio (RBC) 12.8 % Normal 11.5-15.9 [facility] Comment on above: Performed By: #### C RP3 ####[address], [place] [address] Erythrocytes (RBC) 4.41 mil/cmm Low 4.60-6.20 [facility] Comment on above: Performed By: #### C RP3 ####[address] [address] Hematocrit (HCT) 39.4 % Low 42.0-52.0 [facility] Comment on above: Performed By: #### C RP3 ####[place] [address] Hemoglobin mass conc (Bld) 13.3 g/dL Low 14.0-18.0 [facility] Comment on above: Performed By: #### C RP3 ####[place] [address] Lymphocytes 2.01 thou/cmm Normal 1.50-3.65 [facility] Comment on above: Performed By: #### C RP3 ####[address] [address] Lymphocytes/100 leukocytes 34.7 % Normal [facility] Comment on above: Performed By: #### C RP3 ####[address] [address] MCH 30.2 pg Normal 27.0-31.0 [facility] Comment on above: Performed By: #### C RP3 ####[address] [address] MCHC mass conc (RBC) 33.8 % Normal 32.0-36.0 [facility] Comment on above: Performed By: #### C RP3 ####[address] [address] MCV 89.3 fL Normal 80.0-94.0 [facility] Comment on above: Performed By: #### C RP3 ####[address] [address] Monocytes/100 leukocytes 7.5 % Normal [facility] Comment on above: Performed By: #### C RP3 ####[address] [address] Platelet mean volume (PMV) 10.8 fL High 7.1-10.5 [facility] Comment on above: Performed By: #### C RP3 ####[facility] [place] [address] Platelets 196 thou/cmm Normal 150-400 [facility] Comment on above: Performed By: #### C RP3 ####[place] [address] Seg Neutrophil 55.2 % Normal [facility] Comment on above: Performed By: #### C RP3 ####[place] [id number] WBC (Leukocytes) 5.8 thou/cmm Normal 4.8-10.8 [facility] Comment on above: Performed By: #### C RP3 ####[place] [address] MDRD eGFRon 12-15-2017 eGFR (non-black) mL/min/{1.73_m2} Normal >60mL/m in/ 1.73m2 [facility] Comment on above: Result Comment: If t he patient is , multiply the result by 1.210. Performed By: #### C RP3 ####[place] [address] Sed Rateon 12-15-2017 Sed Rate 18 mm/hr High 0-15 [facility] Comment on above: Performed By: #### C RP3 ####[place] [address] Valproic Acid,Letcher.on 2017 Protein 21 mg/L Low 50-100 [facility] Comment on above: Performed By: #### C RP3 ####[place] [address] CRPon 12-08-2017 C reactive protein (CRP) 1.32 mg/dL High 0.00-0.30 [facility] Comment on above: Performed By: #### C RP3 ####[place] [address] Comprehensive Panelon 2017 Albumin 3.0 g/dL Low 3.4-5.0 [facility] Comment on above: Performed By: #### P 8 ####[facility] [place], [place] [address] Alkaline phosphatase (ALP) 76 U/L Normal 46-116 [facility] Comment on above: Performed By: #### P 8 ####[facility] [place], [place] [address] ALT-SGPT Blood 46 U/L Normal 12-78 [facility] Comment on above: Performed By: #### P 8 ####[address] [address] Anion gap 8 mmol/L Normal 8-20 [facility] Comment on above: Performed By: #### P 8 ####[address] [address] AST-SGOT Blood 30 U/L Normal 15-37 [facility] Comment on above: Performed By: #### P 8 ####[address] [address] Bilirubin Ql (U) 0.3 mg/dL Normal 0.2-1.0 [facility] Comment on above: Performed By: #### P 8 ####[address] [address] BUN (urea nitrogen) 16 mg/dL Normal 7-25 [facility] Comment on above: Performed By: #### P 8 ####[address] [address] BUN/Creatinine Ratio 20 mg/mg Normal 10-20 [facility] Comment on above: Performed By: #### P 8 ####[address] [address] Calcium 8.9 mg/dL Normal 8.5-10.1 [facility] Comment on above: Performed By: #### P 8 ####[address] [address] Chloride 105 mmol/L Normal 98-107 [facility] Comment on above: Performed By: #### P 8 ####[facility] [place] [address] CO2 31 mmol/L Normal 21-32 [facility] Comment on above: Performed By: #### P 8 ####[facility] [place] [address] Creatinine 0.81 mg/dL Normal 0.67-1.17 [facility] Comment on above: Performed By: #### P 8 ####[facility] [place] [address] Glucose mass conc 104 mg/dL High 70-99 [facility] Comment on above: Performed By: #### P 8 ####[place] [address] Potassium molar conc 4.5 mmol/L Normal 3.5-5.1 [facility] Comment on above: Performed By: #### P 8 ####[place] [address] Protein 7.2 g/dL Normal 6.4-8.2 [facility] Comment on above: Performed By: #### P 8 ####[place] [address] Sodium 139 mmol/L Normal 136-145 [facility] Comment on above: Performed By: #### P 8 ####[place] [address] Hemogram/Diffon 12-08-2017 Abs. Baso 0.02 thou/cmm Normal 0.00-0.08 [facility] Comment on above: Performed By: #### P 8 ####[place] [address] Abs. [place] 0.56 thou/cmm Normal 0.20-1.00 [facility] Comment on above: Performed By: #### P 8 ####[place] [address] Abs. Neut 4.49 thou/cmm Normal 3.00-5.67 [facility] Comment on above: Performed By: #### P 8 ####[place] [address] [place], [place] [address] Basophils/100 WBC Auto (Bld) 0.3 % Normal [facility] Comment on above: Performed By: #### P 8 ####[facility] [place], [place] [address] Eosinophils 0.17 thou/cmm Normal 0.00-0.41 [facility] Comment on above: Performed By: #### P 8 ####[facility] [place], [place] [address] Eosinophils/100 leukocytes 2.2 % Normal [facility] Comment on above: Performed By: #### P 8 ####[place] [address] Erythrocyte distribution width Auto Ratio (RBC) 12.9 % Normal 11.5-15.9 [facility] Comment on above: Performed By: #### P 8 ####[address] [address] Erythrocytes (RBC) 4.46 mil/cmm Low 4.60-6.20 [facility] Comment on above: Performed By: #### P 8 ####[address] [address] Hematocrit (HCT) 39.9 % Low 42.0-52.0 [facility] Comment on above: Performed By: #### P 8 ####[address] [address] Hemoglobin mass conc (Bld) 13.5 g/dL Low 14.0-18.0 [facility] Comment on above: Performed By: #### P 8 ####[address] [address] Lymphocytes 2.56 thou/cmm Normal 1.50-3.65 [facility] Comment on above: Performed By: #### P 8 ####[address] [address] Lymphocytes/100 leukocytes 32.8 % Normal [facility] Comment on above: Performed By: #### P 8 ####[address] [address] MCH 30.3 pg Normal 27.0-31.0 [facility] Comment on above: Performed By: #### P 8 ####[facility] [place], [place] [address] MCHC mass conc (RBC) 33.8 % Normal 32.0-36.0 [facility] Comment on above: Performed By: #### P 8 ####[facility] [place], [place] [address] MCV 89.5 fL Normal 80.0-94.0 [facility] Comment on above: Performed By: #### P 8 ####[address] [address] Monocytes/100 leukocytes 7.2 % Normal [facility] Comment on above: Performed By: #### P 8 ####[address] [address] Platelet mean volume (PMV) 9.9 fL Normal 7.1-10.5 [facility] Comment on above: Performed By: #### P 8 ####[address] [address] Platelets 256 thou/cmm Normal 150-400 [facility] Comment on above: Performed By: #### P 8 ####[address] [address] Seg Neutrophil 57.5 % Normal [facility] Comment on above: Performed By: #### P 8 ####[address] [address] WBC (Leukocytes) 7.8 thou/cmm Normal 4.8-10.8 [facility] Comment on above: Performed By: #### P 8 ####[address] [address] MDRD eGFRon 12-08-2017 eGFR (non-black) mL/min/{1.73_m2} Normal >60mL/m in/ 1.73m2 [facility] Comment on above: Result Comment: If t he patient is , multiply the result by 1.210. Performed By: #### P 8 ####[facility] [place], [place] [address] Sed Rateon 12-08-2017 Sed Rate 20 mm/hr High 0-15 [facility] Comment on above: Performed By: #### C RP3 ####[facility] [place], [place] [address] Basic Panelon 12-02-2017 Creatinine 0.75 mg/dL Normal 0.67-1.17 [facility] Comment on above: Performed By: #### P 8 ####[facility] [place] [address] Urea nitrogen 14 mg/dL Normal 7-18 [facility] Comment on above: Performed By: #### P 8 ####[place] [address] Anion gap 7 mmol/L Low 8-16 [facility] Comment on above: Performed By: #### P 8 ####[place] [address] Calcium 8.5 mg/dL Normal 8.5-10.1 [facility] Comment on above: Performed By: #### P 8 ####[place] [address] CO2 31 mmol/L Normal 21-32 [facility] Comment on above: Performed By: #### P 8 ####[address] [address] Glucose mass conc 101 mg/dL High 70-99 [facility] Comment on above: Performed By: #### P 8 ####[place] [address] Chloride 104 mmol/L Normal 98-107 [facility] Comment on above: Performed By: #### P 8 ####[place] [address] Potassium molar conc 3.9 mmol/L Normal 3.5-5.1 [facility] Comment on above: Performed By: #### P 8 ####[place] [address] Sodium 138 mmol/L Normal 136-145 [facility] Comment on above: Performed By: #### P 8 ####[facility] [place] [address] Hemogram/Diffon 12-02-2017 Abs Immature Grans 0.08 thou/cmm High 0.00-0.05 [facility] Comment on above: Performed By: #### P 8 ####[facility] [place] [address] Abs. Baso 0.03 thou/cmm Normal 0.01-0.08 [facility] Comment on above: Performed By: #### P 8 ####[place] [address] Abs. [place] 0.59 thou/cmm Normal 0.30-0.82 [facility] Comment on above: Performed By: #### P 8 ####[place] [address] Abs. Neut 4.60 thou/cmm Normal 1.78-5.38 [facility] Comment on above: Performed By: #### P 8 ####[address] [address] Basophils/100 WBC Auto (Bld) 0.4 % Normal [facility] Comment on above: Performed By: #### P 8 ####[address] [address] Eosinophils 0.17 thou/cmm Normal 0.04-0.54 [facility] Comment on above: Performed By: #### P 8 ####[place] [address] Eosinophils/100 leukocytes 2.2 % Normal [facility] Comment on above: Performed By: #### P 8 ####[place] [address] Erythrocyte distribution width Auto Ratio (RBC) 12.6 % Normal 11.6-14.4 [facility] Comment on above: Performed By: #### P 8 ####[place] [address] Erythrocytes (RBC) 4.06 mil/cmm Low 4.63-6.08 [facility] Comment on above: Performed By: #### P 8 ####[facility] [place] [address] Hematocrit (HCT) 37.5 % Low 40.1-51.0 [facility] Comment on above: Performed By: #### P 8 ####[facility] [place] [address] Hemoglobin mass conc (Bld) 12.4 g/dL Low 13.7-17.5 [facility] Comment on above: Performed By: #### P 8 ####[place] [address] Immature Grans 1.00 % Normal [facility] Comment on above: Performed By: #### P 8 ####[place] [address] Lymphocytes 2.19 thou/cmm Normal 0.84-2.85 [facility] Comment on above: Performed By: #### P 8 ####[address] [address] Lymphocytes/100 leukocytes 28.6 % Normal [facility] Comment on above: Performed By: #### P 8 ####[address] [address] MCH 30.5 pg Normal 25.7-32.2 [facility] Comment on above: Performed By: #### P 8 ####[place] [address] MCHC mass conc (RBC) 33.1 % Normal 32.3-36.5 [facility] Comment on above: Performed By: #### P 8 ####[place] [address] MCV 92.4 fL Normal 83.2-95.6 [facility] Comment on above: Performed By: #### P 8 ####[address] [address] Monocytes/100 leukocytes 7.7 % Normal [facility] Comment on above: Performed By: #### P 8 ####[facility] [place], [place] [address] Platelet mean volume (PMV) 9.3 fL Normal 8.7-12.0 [facility] Comment on above: Performed By: #### P 8 ####[facility] [place], [place] [address] Platelets 233 thou/cmm Normal 141-365 [facility] Comment on above: Performed By: #### P 8 ####[facility] [place], [place] [address] RDW SD 42.3 fl Normal 36.1-45.8 [facility] Comment on above: Performed By: #### P 8 ####[place] [id number] Seg Neutrophil 60.1 % Normal [facility] Comment on above: Performed By: #### P 8 ####[place] [phone] WBC (Leukocytes) 7.65 thou/cmm Normal 4.23-9.07 [facility] Comment on above: Performed By: #### P 8 ####[place] [id number] MDRD GFRon 12-02-2017 eGFR (non-black) mL/min/{1.73_m2} Normal >60mL/m in/ 1.73m2 [facility] Comment on above: Result Comment: If t he patient is , multiply the result by 1.210. Performed By: #### P 8 ####[place] [id number] Vancomycin,Troughon 12-03-19 18 Vancomycin,Trough 12.3 mg/L Normal 10.0-20.0 [facility] Comment on above: Performed By: #### P 8 ####[place] [phone] Basic Panelon 11-29-2017 Creatinine 0.76 mg/dL Normal 0.67-1.17 [facility] Comment on above: Performed By: #### P 8 ####[address] [address] Anion gap 9 mmol/L Normal 8-16 [facility] Comment on above: Performed By: #### P 8 ####[facility] [place] [address] CO2 31 mmol/L Normal 21-32 [facility] Comment on above: Performed By: #### P 8 ####[facility] [place], [place] [address] Glucose mass conc 107 mg/dL High 70-99 [facility] Comment on above: Performed By: #### P 8 ####[facility] [place] [address] Urea nitrogen 11 mg/dL Normal 7-18 [facility] Comment on above: Performed By: #### P 8 ####[address] [address] Calcium 8.7 mg/dL Normal 8.5-10.1 [facility] Comment on above: Performed By: #### P 8 ####[place] [address] Chloride 103 mmol/L Normal 98-107 [facility] Comment on above: Performed By: #### P 8 ####[place] [address] Potassium molar conc 4.1 mmol/L Normal 3.5-5.1 [facility] Comment on above: Performed By: #### P 8 ####[place] [address] Sodium 139 mmol/L Normal 136-145 [facility] Comment on above: Performed By: #### P 8 ####[place] [address] Hemogram/Diffon 11-29-2017 Abs Immature Grans 0.09 thou/cmm High 0.00-0.05 [facility] Comment on above: Performed By: #### C BCD1 ####[place] [address] Abs. Baso 0.02 thou/cmm Normal 0.01-0.08 [facility] Comment on above: Performed By: #### C BCD1 ####[facility] [place], [place] [address] Abs. [place] 0.68 thou/cmm Normal 0.30-0.82 [facility] Comment on above: Performed By: #### C BCD1 ####[facility] [place], [place] [address] Abs. Neut 4.45 thou/cmm Normal 1.78-5.38 [facility] Comment on above: Performed By: #### C BCD1 ####[address] [address] Basophils/100 WBC Auto (Bld) 0.3 % Normal [facility] Comment on above: Performed By: #### C BCD1 ####[address] [address] Eosinophils 0.11 thou/cmm Normal 0.04-0.54 [facility] Comment on above: Performed By: #### C BCD1 ####[address] [address] Eosinophils/100 leukocytes 1.5 % Normal [facility] Comment on above: Performed By: #### C BCD1 ####[address] [address] Erythrocyte distribution width Auto Ratio (RBC) 12.4 % Normal 11.6-14.4 [facility] Comment on above: Performed By: #### C BCD1 ####[address] [address] Erythrocytes (RBC) 4.07 mil/cmm Low 4.63-6.08 [facility] Comment on above: Performed By: #### C BCD1 ####[address] [address] Hematocrit (HCT) 36.7 % Low 40.1-51.0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 mm[Hg] DR LAKHWINDER WHITTAKER MD [address] [place] [address] 03-24-2024 06:42-0400 Heart rate 85 /min DR LAKHWINDER WHITTAKER MD [address] [place] [address] 03-24-2024 06:42-0400 Reason For Taking VItal Signs DR LAKHWINDER WHITTAKER MD [address] [place] [address] 03-24-2024 06:42-0400 Respiratory rate 16 /min DR LAKHWINDER WHITTAKER MD [address] [place] [address] 03-24-2024 06:42-0400 Systolic Blood Pressure Non-Invasive 148 mm[Hg] DR LAKHWINDER WHITTAKER MD [address] [place] [address] 03-24-2024 04:21-0400 Reason For Taking VItal Signs DR LAKHWINDER WHITTAKER MD [address] [place] [address] 03-23-2024 15:03-0400 Body temperature 97.52 [degF] DR LAKHWINDER WHITTAKER MD [address] [place] [address] 03-23-2024 15:03-0400 Diastolic Blood Pressure Non-Invasive 90 mm[Hg] DR LAKHWINDER WHITTAKER MD [address] [place] [address] 03-23-2024 15:03-0400 Heart rate 89 /min DR LAKHWINDER WHITTAKER MD [address] [place] [address] 03-23-2024 15:03-0400 Reason For Taking VItal Signs DR LAKHWINDER WHITTAKER MD [address] [place] [address] 03-23-2024 15:03-0400 Respiratory rate 16 /min DR LAKHWINDER WHITTAKER MD [address] [place] [address] 03-23-2024 15:03-0400 Systolic Blood Pressure Non-Invasive 152 mm[Hg] DR LAKHWINDER WHITTAKER MD [address] [place] [address] 03-23-2024 06:40-0400 Blood Pressure Cuff Size DR LAKHWINDER WHITTAKER MD [address] [place] [address] 03-23-2024 06:40-[address] LAKHWINDER WHITTAKER MD [address] [place] [address] 03-23-2024 06:40-[address] LAKHWINDER WHITTAKER MD [address] [place] [address] 03-23-2024 06:40-0400 Body temperature 97.7 [degF] DR LAKHWINDER WHITTAKER MD [address] [place] [address] 03-23-2024 06:40-0400 Diastolic Blood Pressure Non-Invasive 82 mm[Hg] DR LAKHWINDER WHITTAKER MD [address] [place] [address] 03-23-2024 06:40-0400 Heart rate 77 /min DR LAKHWINDER WHITTAKER MD [address] [place] [address] 03-23-2024 06:40-0400 Respiratory rate 16 /min DR LAKHWINDER WHITTAKER MD [address] [place] [address] 03-23-2024 06:40-0400 Systolic Blood Pressure Non-Invasive 129 mm[Hg] DR LAKHWINDER WHITTAKER MD [address] [place] [address] 03-22-2024 14:19-0400 Blood Pressure Cuff Size DR LAKHWINDER WHITTAKER MD [address] [place] [address] 03-22-2024 14:19-[address] LAKHWINDER WHITTAKER MD [address] [place] [address] 03-22-2024 14:19-[address] LAKHWINDER WHITTAKER MD [address] [place] [address] 03-22-2024 14:19-0400 Heart rate 97 /min DR LAKHWINDER WHITTAKER MD [address] [place] [address] 03-22-2024 14:19-0400 Mean blood pressure 110 mm[Hg] DR LAKHWINDER WHITTAKER MD [address] [place] [address] 03-15-2024 00:14-0400 Mean blood pressure 90 mm[Hg] DR LAKHWINDER WHITTAKER MD [address] [place] [address] 03-13-2024 22:52-0400 Mean blood pressure 102 mm[Hg] DR LAKHWINDER WHITTAKER MD [facility] 03-13-2024 05:07-0400 Body temperature 97.16 [degF] DR LAKHWINDER WHITTAKER MD [facility] 03-13-2024 03:25-0400 Body temperature 97.16 [degF] DR LAKHWINDER WHITTAKER MD [facility] 03-12-2024 09:21-0400 Body height 172.[address] LAKHWINDER WHITTAKER MD [facility] 03-11-2024 17:30-0400 Body temperature 97.34 [degF] DR LAKHWINDER WHITTAKER MD [facility] 03-02-2024 04:55-0400 Body temperature 97.39 [degF] Gaby Patel DO Work Phone: [facility] 03-02-2024 04:55-0400 Diastolic blood pressure 87 mm[Hg] Gabygerardo Patel DO Work Phone: [facility] 03-02-2024 04:55-0400 Heart rate 58 /min Gaby Patel DO Work Phone: [facility] 03-02-2024 04:55-0400 Respiratory rate 12 /min Gaby Patel DO Work Phone: [facility] 03-02-2024 04:55-0400 SaO2% (BldA) [Mass fraction] 99 % Gaby Patel DO Work Phone: [facility] 03-02-2024 04:55-0400 Systolic blood pressure 134 mm[Hg] Gabygerardo Patel DO Work Phone: [facility] 02-25-2024 10:00-0400 Body height 172.7 cm Gaby Patel DO Work Phone: [facility] 02-25-2024 05:14-0400 Body mass index (BMI) [Ratio] 33.75 kg/m2 Gabygerardo Patel DO Work Phone: [facility] 02-25-2024 05:14-0400 Body weight 100.7 kg Gaby Patel DO Work Phone: [facility] 02-25-2024 03:11-0400 Diastolic blood pressure 78 mm[Hg] AUDREY SALCEDO MD [facility] 02-25-2024 03:11-0400 Heart rate 78 /min AUDREY SALCEDO MD [facility] 02-25-2024 03:11-0400 Respiratory rate 16 /min AUDREY SALCEDO MD [facility] 02-25-2024 03:11-0400 Systolic blood pressure 122 mm[Hg] AUDREY SALCEDO MD [facility] 02-25-2024 02:01-0400 Body temperature 97.7 [degF] AUDREY SALCEDO MD [facility] 02-25-2024 02:01-0400 Diastolic Blood Pressure Non-Invasive 68 mm[Hg] AUDREY SALCEDO MD [facility] 02-25-2024 02:01-0400 Heart rate 87 /min AUDREY SALCEDO MD [facility] 02-25-2024 02:01-0400 Respiratory rate 18 /min AUDREY SALCEDO MD [facility] 02-25-2024 02:01-0400 Systolic Blood Pressure Non-Invasive 118 mm[Hg] AUDREY SALCEDO MD [facility] 02-24-2024 18:03-0400 Blood Pressure Location AUDREY SALCEDO MD [facility] 02-24-2024 18:03-0400 Blood Pressure Method AUDREY SALCEDO MD [facility] 02-24-2024 18:03-0400 Body temperature 98.24 [degF] AUDREY SALCEDO MD [facility] 02-24-2024 18:03-0400 Diastolic Blood Pressure Non-Invasive 87 mm[Hg] AUDREY SALCEDO MD [facility] 02-24-2024 18:03-0400 Heart rate 97 /min AUDREY SALCEDO MD [facility] 02-24-2024 18:03-0400 Respiratory rate 18 /min AUDREY SALCEDO MD [facility] 02-24-2024 18:03-0400 Systolic Blood Pressure Non-Invasive 141 mm[Hg] AUDREY SALCEDO MD [facility] 02-14-2024 10:27-0400 Diastolic Blood Pressure Non-Invasive 76 mm[Hg] DR ELIAN BURKS DO [facility] 02-14-2024 10:27-0400 Heart rate 89 /min DR ELIAN BURKS DO [facility] 02-14-2024 10:27-0400 Respiratory rate 16 /min DR ELIAN BURKS DO [facility] 02-14-2024 10:27-0400 Systolic Blood Pressure Non-Invasive 122 mm[Hg] DR ELIAN BURKS DO [facility] 02-14-2024 08:54-0400 Blood Pressure Cuff Size DR ELIAN BURKS DO [facility] 02-14-2024 08:54-[address] ELIAN BURKS DO [facility] 02-14-2024 08:54-[address] ELIAN BURKS DO [facility] 02-14-2024 08:54-0400 Body temperature 98.24 [degF] DR ELIAN BURKS DO [facility] 02-14-2024 08:54-0400 Diastolic Blood Pressure Non-Invasive 70 mm[Hg] DR ELIAN BURKS DO [facility] 02-14-2024 08:54-0400 Heart rate 102 /min DR ELIAN BURKS DO [facility] 02-14-2024 08:54-0400 Respiratory rate 16 /min DR ELIAN BURKS DO [facility] 02-14-2024 08:54-0400 Systolic Blood Pressure Non-Invasive 129 mm[Hg] DR ELIAN BURKS DO [facility] 01-24-2024 14:33-0400 Body temperature 96.8 [degF] [facility] 01-24-2024 14:33-0400 Diastolic blood pressure 87 mm[Hg] [facility] 01-24-2024 14:33-0400 Heart rate 65 /min [facility] 01-24-2024 14:33-0400 Respiratory rate 18 /min [facility] 01-24-2024 14:33-0400 SaO2% (BldA) [Mass fraction] 99 % [facility] 01-24-2024 14:33-0400 Systolic blood pressure 155 mm[Hg] [facility] 01-23-2024 19:09-0400 Body height 172.72 cm [facility] 01-23-2024 19:09-0400 Body mass index (BMI) [Ratio] 37.3 kg/m2 [facility] 01-23-2024 19:09-0400 Body weight 111.5 kg [facility] 01-15-2024 22:32-0400 Diastolic Blood Pressure Non-Invasive 74 mm[Hg] WILBER JEAN MD [facility] 01-15-2024 22:32-0400 Heart rate 82 /min WILBER JEAN MD [facility] 01-15-2024 22:32-0400 Respiratory rate 20 /min WILBER JEAN MD [facility] 01-15-2024 22:32-0400 Systolic Blood Pressure Non-Invasive 136 mm[Hg] WILBER JEAN MD [facility] 01-15-2024 15:44-0400 Diastolic Blood Pressure Non-Invasive 88 mm[Hg] WILBER JEAN MD [facility] 01-15-2024 15:44-0400 Heart rate 78 /min WILBER JEAN MD [facility] 01-15-2024 15:44-0400 Respiratory rate 18 /min WILBER JEAN MD [facility] 01-15-2024 15:44-0400 Systolic Blood Pressure Non-Invasive 137 mm[Hg] WILBER JEAN MD [facility] 01-15-2024 11:45-0400 Diastolic Blood Pressure Non-Invasive 70 mm[Hg] WILBER JEAN MD [facility] 01-15-2024 11:45-0400 Heart rate 68 /min WILBER JEAN MD [facility] 01-15-2024 11:45-0400 Respiratory rate 18 /min WILBER JEAN MD [facility] 01-15-2024 11:45-0400 Systolic Blood Pressure Non-Invasive 138 mm[Hg] WILBER JEAN MD [facility] 01-15-2024 01:58-0400 Blood Pressure Cuff Size WILBER JEAN MD [facility] 01-15-2024 01:58-0400 Blood Pressure Location WILBER JEAN MD [facility] 01-15-2024 01:58-0400 Blood Pressure Method WILBER JEAN MD [facility] 01-15-2024 01:58-0400 Body temperature 98.06 [degF] WILBER JEAN MD [facility] 01-15-2024 01:58-0400 Body weight 115.7 kg WILBER JEAN MD [facility] 01-06-2024 22:14-0400 Heart rate 98 /min [facility] 01-06-2024 22:14-0400 Respiratory rate 18 /min [facility] 01-06-2024 22:14-0400 SaO2% (BldA) [Mass fraction] 97 % [facility] 01-06-2024 21:22-0400 Body temperature 98.71 [degF] [facility] 01-06-2024 21:22-0400 Diastolic blood pressure 97 mm[Hg] [facility] 01-06-2024 21:22-0400 Systolic blood pressure 152 mm[Hg] [facility] 12-27-2023 00:20-0400 Body temperature 98.1 [degF] [facility] 12-27-2023 00:20-0400 Diastolic blood pressure 52 mm[Hg] [facility] 12-27-2023 00:20-0400 Heart rate 88 /min [facility] 12-27-2023 00:20-0400 Respiratory rate 16 /min [facility] 12-27-2023 00:20-0400 SaO2% (BldA) [Mass fraction] 99 % [facility] 12-27-2023 00:20-0400 Systolic blood pressure 129 mm[Hg] [facility] 12-26-2023 21:09-0400 Body height 172.72 cm [facility] 12-26-2023 21:09-0400 Body mass index (BMI) [Ratio] 39.6 kg/m2 [facility] 12-26-2023 21:09-0400 Body weight 118.2 kg [facility] 12-09-2023 15:55-0400 Body height 170.2 cm King Matute MD Work Phone: [facility] 12-09-2023 15:55-0400 Body weight 115 kg King Matute MD Work Phone: [facility] 12-09-2023 15:55-0400 Diastolic blood pressure 86 mm[Hg] King Matute MD Work Phone: [facility] 12-09-2023 15:55-0400 Heart rate 98 /min King Matute MD Work Phone: [facility] 12-09-2023 15:55-0400 SaO2% (BldA) [Mass fraction] 98 % King Matute MD Work Phone: [facility] 12-09-2023 15:55-0400 Systolic blood pressure 142 mm[Hg] King Matute MD Work Phone: [facility] 11-25-2023 08:00-0500 Body temperature 97.9 [degF] [facility] 11-25-2023 08:00-0500 Diastolic blood pressure 78 mm[Hg] [facility] 11-25-2023 08:00-0500 Heart rate 74 /min [facility] 11-25-2023 08:00-0500 Respiratory rate 16 /min [facility] 11-25-2023 08:00-0500 SaO2% (BldA) [Mass fraction] 97 % [facility] 11-25-2023 08:00-0500 Systolic blood pressure 130 mm[Hg] [facility] 11-24-2023 16:35-0500 Body mass index (BMI) [Ratio] 39.4 kg/m2 [facility] 11-24-2023 16:35-0500 Body weight 110.7 kg [facility] 11-17-2023 09:36-0500 Body height 172 cm CARLIE HART MD [facility] 11-17-2023 09:36-0500 Body temperature 97.16 [degF] CARLIE HART MD [facility] 11-17-2023 09:36-0500 Body weight 90 kg CARLIE HART MD [facility] 11-17-2023 09:36-0500 Diastolic Blood Pressure Non-Invasive 99 mm[Hg] CARLIE HART MD [facility] 11-17-2023 09:36-0500 Heart rate 93 /min CARLIE HART MD [facility] 11-17-2023 09:36-0500 Respiratory rate 20 /min CARLIE HART MD [facility] 11-17-2023 09:36-0500 Systolic Blood Pressure Non-Invasive 151 mm[Hg] CARLIE HART MD [facility] 11-10-2023 15:53-0500 Diastolic Blood Pressure Non-Invasive 76 mm[Hg] DR JEAN CLAUDE MCDANIELS MD [facility] 11-10-2023 15:53-0500 Heart rate 86 /min DR JEAN CLAUDE MCDANIELS MD [facility] 11-10-2023 15:53-0500 Respiratory rate 16 /min DR JEAN CLAUDE MCDANIELS MD [facility] 11-10-2023 15:53-0500 Systolic Blood Pressure Non-Invasive 147 mm[Hg] DR JEAN CLAUDE MCDANIELS MD [facility] 11-10-2023 13:39-0500 Body temperature 97.52 [degF] DR JEAN CLAUDE MCDANIELS MD [facility] 11-10-2023 13:39-0500 Body weight 106.[address] JEAN CLAUDE MCDANIELS MD [facility] 11-10-2023 13:39-0500 Diastolic Blood Pressure Non-Invasive 97 mm[Hg] DR JEAN CLAUDE MCDANIELS MD [facility] 11-10-2023 13:39-0500 Heart rate 76 /min DR JEAN CLAUDE MCDANIELS MD [facility] 11-10-2023 13:39-0500 Respiratory rate 16 /min DR JEAN CLAUDE MCDANIELS MD [facility] 11-10-2023 13:39-0500 Systolic Blood Pressure Non-Invasive 158 mm[Hg] DR JEAN CLAUDE MCDANIELS MD [facility] 08-27-2023 10:27-0500 Respiratory rate 20 /min [facility] 08-27-2023 06:00-0500 Body temperature 97.3 [degF] [facility] 08-27-2023 06:00-0500 Diastolic blood pressure 167 mm[Hg] [facility] 08-27-2023 06:00-0500 Heart rate 76 /min [facility] 08-27-2023 06:00-0500 Inhaled oxygen flow rate 2 L/min [facility] 08-27-2023 06:00-0500 SaO2% (BldA) [Mass fraction] 96 % [facility] 08-27-2023 06:00-0500 Systolic blood pressure 184 mm[Hg] [facility] 08-25-2023 20:25-0500 Body height 167.64 cm [facility] 08-25-2023 20:25-0500 Body mass index (BMI) [Ratio] 41.1 kg/m2 [facility] 08-25-2023 20:25-0500 Body weight 115.5 kg [facility] 08-25-2023 11:23-0500 Body height 167.64 cm [facility] 08-25-2023 11:23-0500 Body mass index (BMI) [Ratio] 41.6 kg/m2 [facility] 08-25-2023 11:23-0500 Body temperature 98.7 [degF] [facility] 08-25-2023 11:23-0500 Body weight 117.02 kg [facility] 08-25-2023 11:23-0500 Diastolic blood pressure 88 mm[Hg] [facility] 08-25-2023 11:23-0500 Heart rate 84 /min [facility] 08-25-2023 11:23-0500 Respiratory rate 17 /min [facility] 08-25-2023 11:23-0500 SaO2% (BldA) [Mass fraction] 96 % [facility] 08-25-2023 11:23-0500 Systolic blood pressure 144 mm[Hg] [facility] 08-04-2023 10:53-0500 Diastolic blood pressure 99 mm[Hg] [facility] 08-04-2023 10:53-0500 Heart rate 106 /min [facility] 08-04-2023 10:53-0500 Respiratory rate 20 /min [facility] 08-04-2023 10:53-0500 SaO2% (BldA) [Mass fraction] 98 % [facility] 08-04-2023 10:53-0500 Systolic blood pressure 139 mm[Hg] [facility] 08-03-2023 21:33-0500 Body height 167.64 cm [facility] 08-03-2023 21:33-0500 Body mass index (BMI) [Ratio] 43.4 kg/m2 [facility] 08-03-2023 21:33-0500 Body temperature 97.5 [degF] [facility] 08-03-2023 21:33-0500 Body weight 122.19 kg [facility] 07-22-2023 06:24-0400 Diastolic blood pressure 89 mm[Hg] [facility] 07-22-2023 06:24-0400 Heart rate 71 /min [facility] 07-22-2023 06:24-0400 Respiratory rate 18 /min [facility] 07-22-2023 06:24-0400 SaO2% (BldA) [Mass fraction] 95 % [facility] 07-22-2023 06:24-0400 Systolic blood pressure 158 mm[Hg] [facility] 07-21-2023 14:38-0400 Body height 170.18 cm [facility] 07-21-2023 14:38-0400 Body mass index (BMI) [Ratio] 42 kg/m2 [facility] 07-21-2023 14:38-0400 Body temperature 97.6 [degF] [facility] 07-21-2023 14:38-0400 Body weight 121.83 kg [facility] 07-10-2023 21:30-0400 Diastolic Blood Pressure Non-Invasive 79 1 CARLIE HART MD [facility] 07-10-2023 21:30-0400 Heart rate 102 /min CARLIE HART MD [facility] 07-10-2023 21:30-0400 Respiratory rate 18 /min CARLIE HART MD [facility] 07-10-2023 21:30-0400 Systolic Blood Pressure Non-Invasive 138 1 CARLIE HART MD [facility] 07-10-2023 20:30-0400 Diastolic Blood Pressure Non-Invasive 72 1 CARLIE HART MD [facility] 07-10-2023 20:30-0400 Heart rate 100 /min CARLIE HART MD [facility] 07-10-2023 20:30-0400 Respiratory rate 18 /min CARLIE HART MD [facility] 07-10-2023 20:30-0400 Systolic Blood Pressure Non-Invasive 128 1 CARLIE HART MD [facility] 07-10-2023 19:30-0400 Diastolic Blood Pressure Non-Invasive 79 1 CARLIE HART MD [facility] 07-10-2023 19:30-0400 Heart rate 102 /min CARLIE HART MD [facility] 07-10-2023 19:30-0400 Respiratory rate 18 /min CARLIE HART MD [facility] 07-10-2023 19:30-0400 Systolic Blood Pressure Non-Invasive 132 1 CARLIE HART MD [facility] 07-10-2023 10:30-0400 Body temperature 98.96 [degF] CARLIE HART MD [facility] 07-10-2023 10:30-0400 Body weight 124 kg CARLIE HART MD [facility] 05-12-2023 15:36-0400 Blood Pressure Cuff Size SCOTTY WATSON MD [facility] 05-12-2023 15:36-0400 Blood Pressure Location SCOTTY WATSON MD [facility] 05-12-2023 15:36-0400 Blood Pressure Method SCOTTY WATSON MD [facility] 05-12-2023 15:36-0400 Body temperature 98.42 [degF] SCOTTY WATSON MD [facility] 05-12-2023 15:36-0400 Diastolic Blood Pressure Non-Invasive 93 1 SCOTTY WATSON MD [facility] 05-12-2023 15:36-0400 Heart rate 84 /min SCOTTY WATSON MD [facility] 05-12-2023 15:36-0400 Mean blood pressure 107 mm[Hg] SCOTTY WATSON MD [facility] 05-12-2023 15:36-0400 Reason For Taking VItal Signs SCOTTY WATSON MD [facility] 05-12-2023 15:36-0400 Respiratory rate 16 /min SCOTTY WATSON MD [facility] 05-12-2023 15:36-0400 Systolic Blood Pressure Non-Invasive 133 1 SCOTTY WATSON MD [facility] 05-12-2023 15:21-0400 Heart rate 78 /min SCOTTY WATSON MD [facility] 05-12-2023 15:21-0400 Respiratory rate 16 /min SCOTTY WATSON MD [facility] 05-12-2023 11:32-0400 Heart rate 77 /min SCOTTY WATSON MD [facility] 05-12-2023 11:32-0400 Respiratory rate 16 /min SCOTTY WATSON MD [facility] 05-12-2023 10:56-0400 Blood Pressure Cuff Size SCOTTY WATSON MD [facility] 05-12-2023 10:56-0400 Blood Pressure Location SCOTTY WATSON MD [facility] 05-12-2023 10:56-0400 Blood Pressure Method SCOTTY WATSON MD [facility] 05-12-2023 10:56-0400 Body temperature 98.06 [degF] SCOTTY WATSON MD [facility] 05-12-2023 10:56-0400 Diastolic Blood Pressure Non-Invasive 95 1 SCOTTY WATSON MD [facility] 05-12-2023 10:56-0400 Heart rate 75 /min SCOTTY WATSON MD [facility] 05-12-2023 10:56-0400 Mean blood pressure 110 mm[Hg] SCOTTY WATSON MD [facility] 05-12-2023 10:56-0400 Reason For Taking VItal Signs SCOTTY WATSON MD [facility] 05-12-2023 10:56-0400 Systolic Blood Pressure Non-Invasive 139 1 SCOTTY WATSON MD [facility] 05-12-2023 07:43-0400 Heart rate 72 /min SCOTTY WATSON MD [facility] 05-12-2023 06:39-0400 Body temperature 98.06 [degF] SCOTTY WATSON MD [facility] 05-12-2023 06:39-0400 Diastolic Blood Pressure Non-Invasive 80 1 SCOTTY WATSON MD [facility] 05-12-2023 06:39-0400 Reason For Taking VItal Signs SCOTTY WATSON MD [facility] 05-12-2023 06:39-0400 Systolic Blood Pressure Non-Invasive 143 1 SCOTTY WATSON MD [facility] 05-12-2023 03:07-0400 Heart rate 72 /min SCOTTY WATSON MD [facility] 05-11-2023 07:33-0400 Blood Pressure Location SCOTTY WATSON MD [facility] 05-11-2023 07:33-0400 Blood Pressure Method SCOTTY WATSON MD [facility] 05-11-2023 02:40-0400 Body temperature 97.88 [degF] SCOTTY WATSON MD [facility] 05-10-2023 19:52-0400 Blood Pressure Cuff Size SCOTTY WATSON MD [facility] 05-10-2023 19:52-0400 Mean blood pressure 104 mm[Hg] SCOTTY WATSON MD [facility] 05-09-2023 07:06-0400 SaO2% (BldA) [Mass fraction] 95.9 % SCOTTY WATSON MD [facility] 05-08-2023 08:20-0400 SaO2% (BldA) [Mass fraction] 98.9 % SCOTTY WATSON MD [facility] 05-07-2023 22:46-0400 SaO2% (BldA) [Mass fraction] 96.5 % SCOTTY WATSON MD [facility] 05-07-2023 03:50-0400 SaO2% (BldA) [Mass fraction] 97.0 % SCOTTY WATSON MD [facility] 05-06-2023 22:53-0400 SaO2% (BldA) [Mass fraction] 98.3 % SCOTTY WATSON MD [facility] 05-06-2023 12:00-0400 Body height 165.1 cm SCOTTY WATSON MD [facility] 05-06-2023 12:00-0400 Body weight 124.7 kg SCOTTY WATSON MD [facility] 05-06-2023 12:00-0400 Body weight 45.75 kg/m2 SCOTTY WATSON MD [facility] 05-05-2023 14:05-0400 Heart rate 104 /min SCOTTY WATSON MD [facility] 05-05-2023 13:52-0400 Body temperature 100.58 [degF] SCOTTY WATSON MD [facility] 05-05-2023 13:52-0400 Body weight 124.7 kg SCOTTY WATSON MD [facility] 05-05-2023 13:52-0400 Heart rate 112 /min SCOTTY WATSON MD [facility] 04-14-2023 14:00-0400 Body temperature 98.3 [degF] [facility] 04-14-2023 14:00-0400 Diastolic blood pressure 89 mm[Hg] [facility] 04-14-2023 14:00-0400 Heart rate 99 /min [facility] 04-14-2023 14:00-0400 Respiratory rate 16 /min [facility] 04-14-2023 14:00-0400 SaO2% (BldA) [Mass fraction] 97 % [facility] 04-14-2023 14:00-0400 Systolic blood pressure 178 mm[Hg] [facility] 04-13-2023 16:26-0400 Body height 172.72 cm [facility] 04-13-2023 16:26-0400 Body mass index (BMI) [Ratio] 42.3 kg/m2 [facility] 04-13-2023 16:26-0400 Body weight 126.09 kg [facility] 10-21-2022 15:11-0500 Body height 170.2 cm King Matute MD Work Phone: [facility] 10-21-2022 15:11-0500 Body weight 134.26 kg King Matute MD Work Phone: [facility] 10-21-2022 15:11-0500 Diastolic blood pressure 76 mm[Hg] King Matute MD Work Phone: [facility] 10-21-2022 15:11-0500 Heart rate 91 /min King Matute MD Work Phone: [facility] 10-21-2022 [id number] SaO2% (BldA) [Mass fraction] 99 % King Matute MD Work Phone: [facility] 10-21-2022 15:11-0500 Systolic blood pressure 128 mm[Hg] King Matute MD Work Phone: [facility] Encounters Encounter Date Encounter Type Care Provider Facility Start: 07-07-2025 ambulatory Bandar WRIGHT Facil ity:[facility] Start: 06-13-2025 End: 06-13-2025 Emergency department patient visit Dr. Crow Matute MD Work Phone: -Emergency Department Work Phone: Start: 06-07-[address] Bandar bañuelos MD -[facility] Start: 06-07-2025 End: 06-07-2025 ambulatory Bandar WRIGHT Facility:[facility] Start: 05-17-2025 [facility] Start: 05-17-[address] Bandar bañuelos MD -[facility] Start: 04-28-[address] Bandar bañuelos MD -[facility] Start: 04-28-2025 End: 04-28-2025 [facility] Start: 04-12-2025 ambulatory [facility] Facility :[facility] Start: 04-12-[address] Bandar bañuelos MD -[facility] Start: 03-02-2025 End: 03-02-2025 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 Start: 01-11-2025 End: 01-11-2025 ambulatory PATTI DURANT [facility] Start: 01-11-2025 End: 01-11-2025 Postop follow up visit related to original px Patti Durant MD Work Phone: [facility] - Gerry Morrissey Comment on above: Below-knee amputatio n of right lower extremity, initial encounter (HCC) (Primary Dx) Start: 01-10-2025 ambulatory [facility] Facility :[facility] Start: 01-05-2025 ambulatory [facility] Facility :[facility] Start: 12-31-2024 ambulatory [facility] Facility :[facility] Start: 12-14-2024 End: 12-14-2024 Postop follow up visit related to original px Patti Durant MD Work Phone: [facility] Sports Medicine - [place]erry Morrissey Comment on above: Below-knee amputatio n of right lower extremity, initial encounter (HCC) Start: 12-14-2024 End: 12-14-2024 ambulatory PATTI DURANT [facility] Start: 12-02-2024 End: 12-06-2024 Evaluation and management of inpatient Patti Durant MD Work Phone: 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); Chronic osteomyelitis (CMS/HCC) (HCC); Type 2 diabetes mellitus with other circulatory complications (HCC); Displaced oblique fracture of shaft of right tibia, subsequent encounter for closed fracture with nonunion; Below-knee amputation of right lower extremity, initial encounter (HCC) Start: 11-25-2024 End: 11-25-2024 Telephone encounter Patti Durant MD Work Phone: [facility] Randi Morrissey Start: 11-25-2024 End: 11-25-2024 Office outpatient new 60 minutes Patti Durant MD Work Phone: [facility] [place] Comment on above: 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 (Primary Dx) Start: 11-25-2024 End: 11-25-2024 ambulatory NANCY BEARD [facility] Start: 11-25-2024 End: 11-25-2024 Subsequent hospital visit by physician Nancy Beard PA-C Work Phone: [facility] Comment on above: Right leg pain Start: 11-15-2024 End: 11-15-2024 Orders Only Nancy Beard PA-C Work Phone: [facility] [place] Comment on above: Right leg pain (Prim michelle Dx) Start: 07-10-2024 End: 07-11-2024 Emergency department patient visit LA Ocasio [facility] Start: 06-29-2024 End: 06-29-2024 Telephone encounter King Matute MD Work Phone: [facility] Comment on above: Received Outside Med ical Records ([facility]) Start: 04-29-2024 End: 04-29-2024 Emergency department patient visit HITESH GUTIERREZ DO [facility] Start: 04-28-2024 End: 04-29-2024 Emergency department patient visit DR ELIAN BURKS DO [facility] Start: 04-12-2024 End: 04-12-2024 Emergency department patient visit Hilary Jones MD Facility:[facility] Start: 03-25-2024 Telephone encounter King Matute MD Work Phone: [facility] Comment on above: Received Outside Med ical Records ([facility]) Start: 03-24-2024 End: 03-24-2024 Telephone encounter Lexy Juares PA-C Work Phone: [facility] Infectious Disease Start: 03-11-2024 End: 03-24-2024 Evaluation and management of inpatient DR LAKHWINDER WHITTAKER MD [facility] Start: 02-25-2024 End: 03-02-2024 Evaluation and management of inpatient Gaby Patel DO Work Phone: [facility] Medical Surgical Unit MSU H5 Comment on above: Pyogenic arthritis o f left hand, due to unspecified organism (HCC) (Primary Dx); Hand abscess; Pyogenic arthritis of hand, due to unspecified organism, unspecified laterality (HCC); intermediate card tender (current) use of antibiotics Start: 02-24-2024 End: 02-25-2024 Emergency department patient visit AUDREY SALCEDO MD [facility] Start: 02-14-2024 End: 02-14-2024 Emergency department patient visit DR ELIAN BURKS DO [facility] Start: 01-26-2024 Telephone encounter King Matute MD Work Phone: [facility] Comment on above: Received Outside Med ical Records ([facility] ED summary mental health 01/23/2024) Start: 01-23-2024 End: 01-24-2024 Emergency department patient visit [facility]-Emergency Department Work Phone: Start: 01-15-2024 End: 01-15-2024 Emergency department patient visit WILBER JEAN MD [facility] Start: 01-07-2024 End: 01-09-2024 Evaluation and management of inpatient [facility] Start: 01-06-2024 End: 01-07-2024 Emergency department patient visit Physician Chiang [facility] Start: 01-06-2024 End: 01-06-2024 Emergency department patient visit [facility] Emergency Department Comment on above: Abrasion of right [place] nd, initial encounter (Primary Dx); Closed nondisplaced fracture of proximal phalanx of right ring finger, initial encounter; Foreign body of left ring finger Start: 12-31-2023 Telephone encounter King Matute MD Work Phone: [facility] Comment on above: Received Outside Med ical Records ([facility] ED visit summary right lower leg injury ) Start: 12-30-2023 Telephone encounter Hailey GARCIA Comment on above: Follow Up Phone Call (Post Discharge F/U - attempt made. No answer. ) Start: 12-27-2023 End: 12-29-2023 Evaluation and management of inpatient ANSELMO CAAL Facility:[facility] Start: 12-26-2023 End: 12-27-2023 Emergency department patient visit [facility] Work Phone: Start: 12-12-2023 ambulatory King perkins MD Work Phone: [facility] Comment on above: labs Start: 12-12-2023 E-mail encounter fro m caregiver King Matute MD Work Phone: [facility] Start: 12-09-2023 End: 12-09-2023 ambulatory KING MATUTE Facility:[facility] Start: 12-09-2023 End: 12-09-2023 Patient encounter procedure King Matute MD Work Phone: [facility] Comment on above: Cellulitis and absce ss of right lower extremity (Primary Dx); Encounter for screening for osteoporosis; Pathological fracture of both tibia and fibula of right lower extremity, unspecified pathological cause, initial encounter; Other specified disorders of bone density and structure, right lower leg; Ventral hernia without obstruction or gangrene; Left inguinal hernia; Type 2 diabetes mellitus without complication, without long-term current use of insulin (HCC); Hyperlipidemia, mixed; Acquired hypothyroidism; Vitamin D deficiency Start: 11-25-2023 Telephone encounter King Matute MD Work Phone: [facility] Comment on above: Received Outside Med ical Records ([facility] ER summary 11/24/2023 Mental Health) Start: 11-24-2023 End: 11-25-2023 Emergency department patient visit [facility] Work Phone: Start: 11-17-2023 End: 11-17-2023 Emergency department patient visit CARLIE HART MD [facility] Start: 11-10-2023 End: 11-10-2023 Emergency department patient visit DR JEAN CLAUDE MCDANIELS MD [facility] Start: 08-26-2023 Telephone encounter King Matute MD Work Phone: Family Practice Comment on above: Received Outside Med ical Records ([facility] H & P ER addendum ) Start: 08-25-2023 End: 08-27-2023 Emergency department patient visit [facility] Work Phone: Start: 08-25-2023 End: 08-25-2023 Emergency department patient visit [facility] Work Phone: Start: 08-14-2023 End: 08-15-2023 Emergency department patient visit DR ELIAN BURKS DO Facility:B Start: 08-12-2023 Telephone encounter King Matute MD Work Phone: Family [facility] Comment on above: Received Outside Med ical Records ([facility] EKG 08/04/2023) Start: 08-06-2023 Telephone encounter King Matute MD Work Phone: [facility] Comment on above: Received Outside Med ical Records ([facility] Emergency Department Summary 08/03/2023) Start: 08-04-2023 Telephone encounter King Matute MD Work Phone: Family [facility] Comment on above: Orders Start: 08-03-2023 End: 08-04-2023 Emergency department patient visit [facility] Work Phone: Start: 08-02-2023 Refill King perkins MD Work Phone: [facility] [place] Comment on above: Refill Request Start: 07-21-2023 End: 07-22-2023 Emergency department patient visit [facility] Work Phone: Start: 07-10-2023 End: 07-10-2023 Emergency department patient visit CARLIE HART MD [facility] Start: 07-02-2023 Telephone encounter Ton mendoza SPEEDBOAT OPERATOR.BREWERY CELLAR WORKER Work Phone: [facility] Comment on above: Results; Orders Start: 06-28-2023 End: 06-29-2023 ambulatory KING MATUTE Facility:[facility] Start: 06-28-2023 Chart abstracting Pb Roy MD Work Phone: Neurology Start: 06-17-2023 Telephone encounter King Matute MD Work Phone: [facility] Start: 05-19-2023 Refill Ton Dwyer SPEEDBOAT OPERATOR.BREWERY CELLAR WORKER Work Phone: [facility] Comment on above: Refill Request Start: 05-15-2023 Telephone encounter King Matute MD Work Phone: [facility] Comment on above: Patient Update (Home care referral being rejected due to patient stating to company nurse that he did not need the home care services) Start: 05-14-2023 Nurse Triage King perkins MD Work Phone: [facility] Comment on above: Orders Refill Request Start: 05-13-2023 Telephone encounter King Matute MD Work Phone: [facility] Comment on above: Received Outside Med ica Records ([facility] ) Start: 05-12-2023 Telephone encounter King Matute MD Work Phone: [facility] Comment on above: Orders (OT/Skilled N ursing HC) Start: 05-05-2023 End: 05-12-2023 Evaluation and management of inpatient SCOTTY WATSON MD [facility] Start: 04-13-2023 End: 04-14-2023 Emergency department patient visit [facility]gency [facility] Work Phone: Start: 01-06-2023 Telephone encounter King Matute MD Work Phone: [facility] Comment on above: Medication Request ( [facility] ) Start: 01-05-2023 Refill Ton Dwyer SPEEDBOAT OPERATOR.BREWERY CELLAR WORKER Work Phone: [facility] Comment on above: Refill Request Start: 11-23-2022 Refill Ton Shakira SPEEDBOAT OPERATOR.BREWERY CELLAR WORKER Work Phone: [facility] Comment on above: Refill Request Start: 10-23-2022 Refill King perkins MD Work Phone: [facility] Comment on above: Med Change Request Start: 10-21-2022 End: 10-21-2022 Patient encounter procedure King Matute MD Work Phone: [facility] Comment on above: BMI 50.0-59.9, adult ([facility]) (Primary Dx); Acute right-sided low back pain without sciatica; Vitamin D insufficiency; Type 2 diabetes mellitus without complication, without long-term current use of insulin ([facility]); Hyperlipidemia, mixed; Obstructive sleep apnea; Encounter for immunization Start: 10-06-2022 Refill King perkins MD Work Phone: [facility] Comment on above: Refill Request Start: 09-17-2022 Telephone encounter King Matute MD Work Phone: [facility] Comment on above: Orders Start: 09-11-2022 Telephone encounter Ton mendoza SPEEDBOAT OPERATOR.BREWERY CELLAR WORKER Work Phone: [facility] Comment on above: Appointment Start: 08-18-2022 Refill Ton Dwyer SPEEDBOAT OPERATOR.BREWERY CELLAR WORKER Work Phone: [facility] Comment on above: Refill Request Start: 03-16-2022 Refill King perkins MD Work Phone: [facility] Comment on above: Refill Request Start: 02-10-2022 Refill Juan Price SPEEDBOAT OPERATOR. BREWERY CELLAR WORKER Work Phone: [facility] Comment on above: Refill Request Start: 11-19-2021 Refill King perkins MD Work Phone: [facility] Comment on above: Refill Request Start: 02-17-2018 End: 02-17-2018 Patient encounter NICO BENAVIDES Facility:[facility] Start: 02-10-2018 End: 02-11-2018 Patient encounter NIALL LARSON Facility:[facility] Start: 01-20-2018 End: 01-20-2018 Patient encounter NICO BENAVIDES Facility:[facility] Start: 01-07-2018 End: 01-07-2018 Patient encounter IMCA Facility:[facility] Start: 01-05-2018 End: 01-06-2018 Patient encounter NIALL LARSON Facility:[facility] Start: 12-29-2017 End: 12-30-2017 Patient encounter NIALL LARSON Facility:[facility] Start: 12-23-2017 End: 12-23-2017 Patient encounter NICO BENAVIDES Facility:[facility] Start: 12-22-2017 End: 12-23-2017 Patient encounter NIALL LARSON Facility:[facility] Start: 11-26-2017 End: 2017 Evaluation and management of inpatient KARYN WEBB Facility:[facility] Procedures Date Procedure Procedure Detail Performing Clinician Start: 06-13-2025 X-ray of chest posteroanterior view Dr. Crow Matute MD Work Phone: Start: 05-17-2025 Vitamin D, 25-hydrox y measurement Dr. Crow Matute MD Work Phone: Comment on above: Vitamin D StatusDefi ciency: <20 ng/mL (50nmol/L)Insufficiency: 20-30 ng/mL (50-75 nmol/L)Sufficiency: 30-100 ng/mL (75-250 nmol/L)Toxicity: >100 ng/mL (>250 nmol/L) Start: 12-06-2024 Glucose quantitative blood xcpt reagent strip Patti Durant MD Work Phone: Start: 12-06-2024 Glucose quantitative blood xcpt reagent strip Patti Durant MD Work Phone: Start: 12-06-2024 Basic metabolic pane l calcium total Yaya Tran MD Work Phone: Start: 12-05-2024 Glucose quantitative blood xcpt reagent strip Patti Durant MD Work Phone: Start: 12-05-2024 Glucose quantitative blood xcpt reagent strip Patti Durant MD Work Phone: Start: 12-05-2024 Glucose quantitative blood xcpt reagent strip Patti Durant MD Work Phone: Start: 12-05-2024 Glucose quantitative blood xcpt reagent strip Jey David MD Work Phone: Start: 12-05-2024 Glucose quantitative blood xcpt reagent strip Jey David MD Work Phone: Start: 12-05-2024 Basic metabolic pane l calcium total Yaya Tran MD Work Phone: Start: 2024 Glucose quantitative blood xcpt reagent strip Patti Durant MD Work Phone: Start: 2024 Glucose quantitative blood xcpt reagent strip Patti Durant MD Work Phone: Start: 2024 Glucose quantitative blood xcpt reagent strip Patti Durant MD Work Phone: Start: 2024 Glucose quantitative blood xcpt reagent strip Patti Durant MD Work Phone: Start: 2024 Basic metabolic pane l calcium total Yaya Tran MD Work Phone: Start: 12-03-2024 Glucose quantitative blood xcpt reagent strip Patti Durant MD Work Phone: Start: 12-03-2024 End: 12-03-2024 POCT GLUCOSE METER UNSOLICITED RESULTS Patti Durant MD Work Phone: Start: 12-03-2024 Glucose quantitative blood xcpt reagent strip Patti Durant MD Work Phone: Start: 12-03-2024 Glucose quantitative blood xcpt reagent strip Patti Durant MD Work Phone: Start: 12-03-2024 Culture bacterial an y source anaerobic iso&id Patti Durant MD Work Phone: Start: 12-03-2024 Level v surg patholo gy gross&microscopic exam Patti Durant MD Work Phone: Start: 12-03-2024 End: 12-03-2024 Amp leg thru tibia&fibula sec closure/scar rev Patti Durant MD Work Phone: Start: 12-03-2024 Glucose quantitative blood xcpt reagent strip Patti Durant MD Work Phone: Start: 12-03-2024 Basic metabolic pane l calcium total Elin Dayana Villela MD Work Phone: Start: 12-02-2024 Glucose quantitative blood xcpt reagent strip Patti Durant MD Work Phone: Start: 12-02-2024 End: 12-02-2024 Sedimentation rate rbc automated Hitesh HEARN-C Work Phone: Start: 12-02-2024 Non-invasive physiol ogic study extremity 3 levls Hitesh HEARN-C Work Phone: Start: 12-02-2024 Ecg routine ecg w/le ast 12 lds trcg only w/o i&r Hitesh Rutledge PA-C Work Phone: Start: 12-02-2024 Radiologic examinati on tibia & fibula 2 views Hitesh Rutledge PA-C Work Phone: Start: 12-02-2024 Radiologic exam ches t single view Hitesh Rutledge PA-C Work Phone: Start: 12-02-2024 Antibody screen PATTI ER EN Comment on above: Performed By: #### L [id number] ####Retail Customer Service Specialist: SHERRIE WALTER ([phone])[facility] ([address] Start: 12-02-2024 Basic metabolic pane l calcium total Elin Dayana Villela MD Work Phone: Start: 12-02-2024 C-reactive protein Beau chris Rutledge PAConrad Work Phone: Start: 11-25-2024 Radiologic examinati on tibia & fibula 2 views Nancy Beard PA-C Work Phone: Start: 03-02-2024 Glucose quantitative blood xcpt reagent strip Randy Drummond MD Work Phone: Start: 03-01-2024 Glucose quantitative blood xcpt reagent strip Isaac TBrenda Marcos DO Work Phone: Start: 03-01-2024 Glucose quantitative blood xcpt reagent strip Isaac TBrenda Marcos DO Work Phone: Start: 03-01-2024 Radiologic exam ches t single view Tiffany Aviles MD Work Phone: Start: 03-01-2024 Insertion picc w/rs&i 5 yr/> Tiffany Aviles MD Work Phone: Start: 03-01-2024 End: 03-01-2024 Glucose quantitative blood xcpt reagent strip Isaac T. Marcos DO Work Phone: Start: 02-29-2024 Glucose quantitative blood xcpt reagent strip Isaac TBrenda Marcos DO Work Phone: Start: 02-29-2024 Glucose quantitative blood xcpt reagent strip Isaac T. Marcos DO Work Phone: Start: 02-29-2024 Glucose quantitative blood xcpt reagent strip Isaac T. Marcos DO Work Phone: Start: 02-29-2024 Glucose quantitative blood xcpt reagent strip Isaac T. Marcos DO Work Phone: Start: 02-28-2024 Glucose quantitative blood xcpt reagent strip Iasac T. Marcos DO Work Phone: Start: 02-28-2024 Glucose quantitative blood xcpt reagent strip Isaac T. Marcos DO Work Phone: Start: 02-28-2024 Glucose quantitative blood xcpt reagent strip Isaac Eid Marcos DO Work Phone: Start: 02-28-2024 Glucose quantitative blood xcpt reagent strip Isaac Stanton Marcos DO Work Phone: Start: 02-28-2024 Comprehensive metabo lic panel Shahram Jacobo MD Work Phone: Start: 02-27-2024 Glucose quantitative blood xcpt reagent strip Isaac Eid Marcos DO Work Phone: Start: 02-27-2024 Glucose quantitative blood xcpt reagent strip Isaac Eid Marcos DO Work Phone: Start: 02-27-2024 Glucose quantitative blood xcpt reagent strip Isaac Eid Marcos DO Work Phone: Start: 02-27-2024 Glucose quantitative blood xcpt reagent strip Isaac TBrenda Marcos DO Work Phone: Start: 02-27-2024 Comprehensive metabo lic panel Shahram Jacobo MD Work Phone: Start: 02-26-2024 End: 02-26-2024 Glucose quantitative blood xcpt reagent strip Isaac Eid Marcos DO Work Phone: Start: 02-26-2024 Glucose quantitative blood xcpt reagent strip Isaac Eid Marcos DO Work Phone: Start: 02-26-2024 Drug screen quantita tive vancomycin Anthony Rachel GLOVE BOARDER Work Phone: Start: 02-26-2024 Glucose quantitative blood xcpt reagent strip Isaac Eid Marcos DO Work Phone: Start: 02-26-2024 Glucose quantitative blood xcpt reagent strip Isaac TBrenda Marcos DO Work Phone: Start: 02-26-2024 Comprehensive metabo lic panel Shahram Jacobo MD Work Phone: Start: 02-25-2024 Glucose quantitative blood xcpt reagent strip Isaac TBrenda Marcos DO Work Phone: Start: 02-25-2024 Bacteria identified in Blood by Culture [email or web address] Work Phone: Start: 02-25-2024 Glucose quantitative blood xcpt reagent strip Isaac Marcos DO Work Phone: Start: 02-25-2024 Bacteria identified in Blood by Culture [employer] PA-C Work Phone: Start: 02-25-2024 Glucose quantitative blood xcpt reagent strip Isaac Marcos DO Work Phone: Start: 02-25-2024 Glucose quantitative blood xcpt reagent strip Isaac Marcos DO Work Phone: Start: 02-25-2024 AEROBIC AND ANAEROBI C CULTURE WITH STAIN Micha Fischer MD Work Phone: Start: 02-25-2024 Culture bacterial an y source anaerobic iso&id Micha Fischer MD Work Phone: Start: 02-25-2024 End: 02-25-2024 Debridement bone muscle &/fascia 20 sq cm/< Micha Fischer MD Work Phone: Start: 02-25-2024 Basic metabolic pane l calcium total Syd Clement MD Work Phone: Start: 02-25-2024 C-reactive protein Cira Patel DO Work Phone: Start: 02-25-2024 Radex hand minimum 3 views Enzo Mayer MD Work Phone: Start: 02-25-2024 Radiologic exam ches t single view Syd Clement MD Work Phone: Start: 02-25-2024 Ecg routine ecg w/le ast 12 lds trcg only w/o i&r Syd Clement MD Work Phone: Start: 01-06-2024 Radex hand minimum 3 views Vesta Richard SPEEDBOAT OPERATOR - BREWERY CELLAR WORKER Work Phone: Start: 12-26-2023 MRI of lower extremity Start: 12-26-2023 Plain X-ray of tibia and fibula Start: 12-09-2023 Blood count complete automated King Matute MD Work Phone: Start: 12-09-2023 Thyrotropin [Units/v olume] in Serum or Plasma Gaby Patel DO Work Phone: Start: 11-24-2023 Viral antigen assay Start: 08-25-2023 Coronavirus COVID-19 PCR Start: 08-25-2023 Viral antigen assay Start: 08-03-2023 Viral antigen assay Start: 07-21-2023 Viral antigen assay Start: 04-13-2023 SARS-CoV-2 & FLU Ant igen (Rapid) Start: 10-21-2022 INFLUENZA VACCINE QUADRIVALENT 6 MO - 64 YRS IM King Matute MD Work Phone: Start: 10-21-2022 [employer] COVI D-19 BIVALENT BOOSTER VACCINE, AGE 12+ YR King Matute MD Work Phone: Start: 09-19-2021 Adult depression scr eening assessment King Matute MD Work Phone: Open reduction of fr acture with internal fixation SCOTTY WATSON MD Tonsillectomy SCOTTY WATSON MD Plan of Treatment Date Care Activity Detail Author Start: 12-03-2054 RSV Immunization for Adults (1 - 1-dose 75+ series) RSV Immunization for Adults (1 - 1-dose 75+ series) [facility] Start: 2039 RSV Immunization age d 60 or older (1 - 1-dose 60+ series) RSV Immunization aged 60 or older (1 - 1-dose 60+ series) [facility] Start: 02-24-2034 DTaP/Tdap/Td Vaccine s (6 - Td or Tdap) DTaP/Tdap/Td Vaccines (6 - Td or Tdap) [facility] Start: 02-24-2034 Urine microalbumin profile DTaP,Tdap,Td Vaccine (6 - Td or Tdap) [facility] Start: 01-05-2034 DTaP/Tdap/Td vaccine (5 - Td or Tdap) DTaP/Tdap/Td vaccine (5 - Td or Tdap) [facility] Start: 11-10-2033 Urine microalbumin profile DTaP,Tdap,Td Vaccine (4 - Td or Tdap) [facility] Start: 12-03-2029 Zoster Vaccines (1 o f 2) Zoster Vaccines (1 of 2) [facility] Start: 03-02-2028 Urine microalbumin profile DTaP,Tdap,Td Vaccine (3 - Td or Tdap) [facility] Start: 12-12-2026 Urine microalbumin profile [facility] Start: 12-06-2025 Diabetes: Estimated Glomerular Filtration Rate for Kidney Health Diabetes: Estimated Glomerular Filtration Rate for Kidney Health [facility] Start: 2025 Hemoglobin A1c measurement Diabetes: Hemoglobin A1C [facility] Start: 06-13-2025 [facility] Start: 05-30-2025 Influenza vaccination Influenz a Vaccine (Season Ended) [facility] Start: 02-27-2025 Diabetes: Estimated Glomerular Filtration Rate for Kidney [facility] Diabetes: Estimated Glomerular Filtration Rate for Kidney Health [facility] Start: 02-24-2025 Hemoglobin A1c measurement Diabetes: Hemoglobin A1C [facility] Start: 02-22-2025 End: 02-22-2025 Patient encounter procedure 02/22/2025 2:00 PM EDT Office Visit [facility] [place] [facility] [address] [place] [phone] Patti Durant MD [address] [place], [place] [phone] [facility] Orthoped[facility] [place] [facility] Start: 01-11-2025 End: 01-11-2025 Patient encounter procedure 01/11/2025 2:00 PM EDT Office Visit [facility] [place] [address] [place] [phone] Patti Durant MD [address] [place] [address] [facility] [place] Start: 12-14-2024 End: 12-14-2024 Patient encounter procedure 12/14/2024 2:00 PM EDT Office Visit [facility] Orthopedics [facility] [address] [phone] Patti Durant MD [address] [address] [facility] Orthopedics [facility] Sports [facility] Start: 12-08-2024 Annual PCP Team Placement Manager curtis Disease Visit Annual PCP Team Chronic Disease Visit [facility] Start: 12-08-2024 Hepatitis B surface antibody level LDL Cholesterol [facility] Start: 12-08-2024 Thyroid stimulating hormone measurement TSH Level [facility] Start: 12-03-2024 End: 12-03-2024 Admission to same day surgery center 12/03/2024 8:30 AM EST - 12/03/2024 10:30 AM EST Surgery [facility] MAIN OR [address] [place] [address] Patti Durant MD [address] [address] RIGHT BELOW KNEE AMPUTATION [78903 (CPT )] [facility] MA[facility] OR Comment on above: RIGHT BELOW KNEE AMP UTATION [24654 (CPT )] Start: 12-03-2024 End: 12-03-2024 Amp leg thru tibia&fibula sec closure/scar rev REVISION, AMPUTATION SITE, LOWER EXTREMITY Displaced oblique fracture of shaft of right tibia, subsequent encounter for closed fracture with nonunion 12/03/2024 8:30 AM EST [facility] Operating [facility] Start: 12-02-2024 Evaluation and management of inpatient 12/02/2024 12:00 PM EST Hospital Encounter [facility] Surgical Progressive Care Unit PCU H[address] [place] [phone] Patti Durant MD [phone] [facility] Surgical Progressive Care Unit PCU H6 Start: 12-02-2024 Subsequent hospital visit by physician 12/02/2024 8:30 AM EST Hospital Encounter [facility] MA[facility] OR [address] [place] [address] Patti Durant MD [address] [place], [place] [phone] [facility] OR Start: 11-25-2024 End: 11-15-2025 XR Tibia and Fibula - right 2 Views XR tibia fibula 2 views right Imaging Routine Right leg pain Expected: 11/25/2024, Expires: 11/15/2025 [facility] Work Phone: Comment on above: Expected: 11/25/2024 , Expires: 11/15/2025 Start: 11-25-2024 End: 11-25-2024 Patient encounter procedure 11/25/2024 8:30 AM EST Office Visit [facility] Orthopedics and [facility] - [place] [address] [place] [address] Patti Durant MD [address] [place], [place] [phone] [facility] - [place] Start: 11-25-2024 End: 11-25-2024 Documentation procedure 11/25/2024 7:30 AM EST Documentation [facility] - [place] [address] [place] [phone] [facility] - [place] Start: 09-29-2024 Medicare Advantage Annual Wellness Visit Medicare Advantage Annual Wellness Visit [facility] Start: 08-27-2024 Depression Monitoring Depression Mon [facility] Start: 08-27-2024 Hemoglobin A1c measurement HbA1C [facility] Start: 06-10-2024 Hemoglobin A1c measurement HbA1C [facility] Start: 05-30-2024 Covid-19 Vaccine ( season) Covid-19 Vaccine ( season) [facility] Start: 05-30-2024 Influenza vaccination [facility] Start: 05-20-2024 Annual PCP Team Placement Manager curtis Disease Visit Annual PCP Team Chronic Disease Visit [facility] Start: 04-29-2024 Influenza vaccination Flu vacc ine (Season Ended) [facility] Start: 03-24-2024 End: 03-24-2024 Patient encounter procedure 03/24/2024 2:30 PM EDT Office Visit [facility] Infectious Disease [address] [facility] [address] [place] [phone] Lexy Juares PA-C [address] [place] [phone] [facility] Infectious Disease Start: 01-24-2024 [facility] Start: 01-24-2024 [facility] Start: 01-23-2024 Suicide precautions [facility] Start: 12-26-2023 Application short le g splint calf foot APPLICATION LOWER LEG SPLINT [facility] Start: 11-25-2023 [facility] Start: 10-21-2023 ANNUAL PCP TEAM PLEATER HAND CURTIS DISEASE VISIT ANNUAL PCP TEAM CHRONIC DISEASE VISIT [facility] Start: 09-29-2023 Behavioral Health Screening Behavioral Health Screening [facility] Start: 09-29-2023 Depression Assessment Depression Ass essment [facility] Start: 09-17-2023 Hepatitis B surface antibody level LDL CHOLESTEROL [facility] Start: 08-27-2023 [facility] Start: 08-25-2023 Suicide precautions [facility] Start: 08-20-2023 Hemoglobin A1c measurement HbA1C [facility] Start: 08-20-2023 Hemoglobin A1c/Hemoglobin.total in Blood HbA1C [facility] Start: 08-04-2023 [facility] Start: 08-03-2023 Referral to service [facility] Start: 08-03-2023 End: 08-03-2023 Suicide precautions [facility] Start: 07-22-2023 End: 07-22-2023 [facility] Start: 05-30-2023 COVID-19 Vaccine ( season) COVID-19 Vaccine ( season) [facility] Start: 05-30-2023 Covid-19 Vaccine ( season) Covid-19 Vaccine ( season) [facility] Start: 05-30-2023 Influenza vaccination [facility] Start: 03-13-2023 End: 04-28-2023 25-hydroxyvitamin D3 [Mass/volume] in Serum or Plasma VITAMIN D 25 HYDROXY Lab Routine Vitamin D insufficiency Expected: 03/13/2023, Expires: 04/28/2023 [facility] Work Phone: Comment on above: Expected: 03/13/2023 , Expires: 04/28/2023 Start: 03-13-2023 End: 05-13-2023 ALBUMIN/CREAT RATIO RND UR ALBUMIN/CREAT RATIO RND UR Lab Routine Type 2 diabetes mellitus without complication, without long-term current use of insulin (HCC) Expected: 03/13/2023, Expires: 05/13/2023 [facility] Work Phone: Comment on above: Expected: 03/13/2023 , Expires: 05/13/2023 Start: 03-13-2023 End: 05-13-2023 Comprehensive metabolic 2000 panel - Serum or Plasma COMP METABOLIC PANEL Lab Routine Type 2 diabetes mellitus without complication, without long-term current use of insulin (HCC) Expected: 03/13/2023, Expires: 05/13/2023 [facility] Work Phone: Comment on above: Expected: 03/13/2023 , Expires: 05/13/2023 Start: 03-13-2023 End: 05-13-2023 Hemoglobin A1c in Blood HGB A1C Lab Routine Type 2 diabetes mellitus without complication, without long-term current use of insulin (HCC) Expected: 03/13/2023, Expires: 05/13/2023 [facility] Work Phone: Comment on above: Expected: 03/13/2023 , Expires: 05/13/2023 Start: 03-13-2023 End: 05-13-2023 Lipid 1996 panel - Serum or Plasma LIPID PANEL BASIC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 tramadol around physical therapy to help with pain versus a pain management referral documented in this encounter [facility] 03-02-2025 Note Patient doing well a nd will be following up as needed. Recommend a prescription for tramadol around physical therapy to help with pain versus a pain management referral [facility] 01-11-2025 History of Present illness Narrative Subjective: Talia is approximately 6 weeks post op from Right Below Knee Amputation. Pain is severe. He states it feels like a ayaan horse. He is taking oxycodone, tylenol, and ibuprofen for pain. He denies new numbness or tingling since surgery. He denies other new complaints. He is staying at [facility]. He saw [employer] yesterday. He will be receiving the project management consultant socks in the near future for edema control of his residual limb. He is set up to receive his temporary prosthesis in the near future also. He states he does have an appointment set up to see [employer] for this. Review of Systems Objective: Ht 5' 7.5" (1.715 m) Wt 264 lb (120 kg) BMI 40.74 kg/m right lower extremity Skin: All incisions are healing appropriately. No erythema or signs of infection he has several areas of scabbing as well as some dry skin. No areas of open wound. He shows no signs of infection or suture granuloma. All of his marvin have been removed at his last visit. Swelling:mild. Residual limb remains soft to examination. Capillary refill is intact. Assessment 1. Below-knee amputation of right lower extremity, initial encounter ([facility]) @No orders of the defined types were placed in this encounter. Talia is doing well. The patient was advised to wash the area once a day with soap and water. They were advised not to soak the area in a bathtub, hot tub or swimming pool. They were shown how to apply an appropriate dressing to the area. The use of lotion and massage over the affected area would be helpful to desensitize and decrease swelling and pain. Low impact activities are recommended. He will maintain his follow-up with Leesa neri. He will continue to utilize the project management consultant socks as directed by Leesa. He will follow-up with Dr. Durant in the next 6 weeks or sooner if he is having any issues. This patient was discussed with Dr. Durant in detail. The patient underwent a below the knee amputation on his right side. A custom fabricated ankle-foot orthosis will be necessary at this time for completion of activities of daily living and to maintain a level of independence for this patient. Electronically signed by Patti Durant M.D. 01/11/2025 at 2:32 PM. documented in this encounter [facility] 01-11-2025 History of Present illness Narrative Subjective: Talia is approximately 6 weeks post op from Right Below Knee Amputation. Pain is severe. He states it feels like a ayaan horse. He is taking oxycodone, tylenol, and ibuprofen for pain. He denies new numbness or tingling since surgery. He denies other new complaints. He is staying at [facility]. He saw [employer] yesterday. He will be receiving the project management consultant socks in the near future for edema control of his residual limb. He is set up to receive his temporary prosthesis in the near future also. He states he does have an appointment set up to see [employer] for this. Review of Systems Objective: Ht 5' 7.5" (1.715 m) Wt 264 lb (120 kg) BMI 40.74 kg/m right lower extremity Skin: All incisions are healing appropriately. No erythema or signs of infection he has several areas of scabbing as well as some dry skin. No areas of open wound. He shows no signs of infection or suture granuloma. All of his marvin have been removed at his last visit. Swelling:mild. Residual limb remains soft to examination. Capillary refill is intact. Assessment 1. Below-knee amputation of right lower extremity, initial encounter ([facility]) @No orders of the defined types were placed in this encounter. Talia is doing well. The patient was advised to wash the area once a day with soap and water. They were advised not to soak the area in a bathtub, hot tub or swimming pool. They were shown how to apply an appropriate dressing to the area. The use of lotion and massage over the affected area would be helpful to desensitize and decrease swelling and pain. Low impact activities are recommended. He will maintain his follow-up with Leesa neri. He will continue to utilize the project management consultant socks as directed by Leesa. He will follow-up with Dr. Durant in the next 6 weeks or sooner if he is having any issues. This patient was discussed with Dr. Durant in detail. The patient underwent a below the knee amputation on his right side. A custom fabricated ankle-foot orthosis will be necessary at this time for completion of activities of daily living and to maintain a level of independence for this patient. Electronically signed by Patti Durant M.D. 01/11/2025 at 2:32 PM. Subjective: Talia is approximately 6 weeks post op from Right Below Knee Amputation. Pain is severe. He states it feels like a ayaan horse. He is taking oxycodone, tylenol, and ibuprofen for pain. He denies new numbness or tingling since surgery. He denies other new complaints. He is staying at [facility]. He saw [employer] yesterday. He will be receiving the project management consultant socks in the near future for edema control of his residual limb. He is set up to receive his temporary prosthesis in the near future also. He states he does have an appointment set up to see Leesa neri for this. Review of Systems Objective: Ht 5' 7.5" (1.715 m) Wt 264 lb (120 kg) BMI 40.74 kg/m right lower extremity Skin: All incisions are healing appropriately. No erythema or signs of infection he has several areas of scabbing as well as some dry skin. No areas of open wound. He shows no signs of infection or suture granuloma. All of his marvin have been removed at his last visit. Swelling:mild. Residual limb remains soft to examination. Capillary refill is intact. Assessment 1. Below-knee amputation of right lower extremity, initial encounter ([facility]) @No orders of the defined types were placed in this encounter. Talia is doing well. The patient was advised to wash the area once a day with soap and water. They were advised not to soak the area in a bathtub, hot tub or swimming pool. They were shown how to apply an appropriate dressing to the area. The use of lotion and massage over the affected area would be helpful to desensitize and decrease swelling and pain. Low impact activities are recommended. He will maintain his follow-up with Leesa neri. He will continue to utilize the project management consultant socks as directed by Leesa. He will follow-up with Dr. Durant in the next 6 weeks or sooner if he is having any issues. This patient was discussed with Dr. Durant in detail. The patient underwent a below the knee amputation on his right side. A custom fabricated ankle-foot orthosis will be necessary at this time for completion of activities of daily living and to maintain a level of independence for this patient. Electronically signed by Ptati Durant M.D. 02/02/2025 at 7:49 AM. documented in this encounter [facility] 01-11-2025 Instructions Natividad Nowak MA - 01/11/2025 2:00 PM EDT Please confirm appointment with An Neri documented in this encounter [facility] 01-11-2025 Instructions Natividad Nowak MA - 01/11/2025 2:00 PM EDT Please confirm appointment with An Astonish Resultsshanti documented in this encounter [facility] 12-14-2024 History of Present illness Narrative Subjective: Talia is approximately 2 weeks post op from right below knee amputation. Pain is severe. He denies new numbness or tingling since surgery. He denies other new complaints. He is staying at [facility]. He is having some burning pain. Denies any fevers or chills Review of Systems Objective: Ht 1.715 m (5' 7.5") Wt 120 kg (264 lb) BMI 40.74 kg/m right lower extremity Skin: All incisions are healing appropriately. No erythema or signs of infection Good normal range of motion of the knee Swelling:mild. Sensation normal to distal stump with some mild sensitivity near the incision BCR to stump XRAYS: No imaging taken this visit Assessment 1. Below-knee amputation of right lower extremity, initial encounter (HCC) @ Orders Placed This Encounter Procedures General supply request: project management consultant Talia is doing well. He was given a prescription to see antibiotics for a stump project management consultant and begin the process of getting his prosthesis. His marvin were removed today in office without any issues. He will follow-up in a month to see how he is progressing and healing Electronically signed by Patti Durant M.D. 12/14/2024 at 2:39 PM. documented in this encounter [facility] 12-06-2024 Note Formatting of this n ote might be different from the original. Received letter of guardianship; put copy in his chart, which will go to Medical Records. Attempted to meet bedside with patient to discuss SDOH needs, but [facility] 12-06-2024 Note Formatting of this n ote might be different from the original. Received letter of guardianship; put copy in his chart, which will go to Medical Records. Attempted to meet bedside with patient to discuss SDOH needs, but he was being transported by Daniel Sandoval in stretcher [facility] 12-06-2024 Miscellaneous Notes Received letter of guardianship; put copy in his chart, which will go to Medical Records. Attempted to meet bedside with patient to discuss SDOH needs, but he was being transported by Daniel Sandoval in stretcher MAR & Discharge med list transmitted to [facility] via [place] per TCC request. Confirmed pickup time of 3 pm by transport company Daniel Zuniga at phone number . Location of facility drop off is [facility]. Facility notified via [employer] notified on secure chat. Transport requested in [facility]. Awaiting time confirmation[facility] and was told that patient does have a guardian and to contact the guardian for Letter of Guardianship. Call to guardian, who said she will email to me the Letter of Guardianship. 3pm, did not find letter of guardianship in email, left voicemail for guardian to email and repeated email address Discharge order in [facility] for return to [facility]- Msg sent to [facility]- Please send the discharge med list to [facility] sent to [facility] to arrange transportation Time 3P and location [facility] Oxygen no bariatric wt 264 Any lines or drains [facility] cot If the patient is going by cot, Reason- Psychiatric patient Post op- unsteady gait- safety concern Transportation time confirmed - scheduled for 3p Patient, legal guardian called- bedside nurse,community advocate and facility notified- Care Management Progress Note call placed to Jaci leg guardian to discuss discharge plans- no ans msg left Return call from Jaci discharge plan is to return to [facility] facility notified and able to accept today PT ritu IPR discussed with legal guardian and she feels its best for him to return to SNF Problem: Pain - Adult Goal: Verbalizes/displays adequate comfort level or baseline comfort level Outcome: Progressing Flowsheets (Taken 12/06/2024 0931) Verbalizes/displays adequate comfort level or baseline comfort level: Encourage patient to monitor pain and request assistance Assess pain using appropriate pain scale Problem: Safety - Adult Goal: Free from fall injury Outcome: Progressing Flowsheets (Taken 12/04/20242011 by Bill Baker RN) Free from fall injury: Instruct family/caregiver on patient safety Referral placed to LTAC return to [facility] via [facility] per TCC request. Await review and response regarding ability to accept. TCC notified. Problem: Pain - Adult Goal: Verbalizes/displays adequate comfort level or baseline comfort level Outcome: Progressing Problem: Safety - Adult Goal: Free from fall injury Outcome: Progressing Problem: Pain - Adult Goal: Verbalizes/displays adequate comfort level or baseline comfort level Outcome: Progressing Problem: Safety - Adult Goal: Free from fall injury Outcome: Progressing Flowsheets (Taken 12/04/20242011) Free from fall injury: Instruct family/caregiver on patient safety Problem: Pain - Adult Goal: Verbalizes/displays adequate comfort level or baseline comfort level Outcome: Progressing Problem: Safety - Adult Goal: Free from fall injury Outcome: Progressing Problem: Pain - Adult Goal: Verbalizes/displays adequate comfort level or baseline comfort level Outcome: Progressing Problem: Safety - Adult Goal: Free from fall injury Outcome: Progressing Called patient's legal guardian to discuss discharge plan. Voice mail left with call back info. Anticipate return to [facility]. Patient's family updated by RN that patient is doing well and will be returning to his room within the hour. Images from the original note were not included. SW consulted 12/02/24 by NADIYA Davenport- routine consult. EMR reviewed. Patient in hospital from [facility]. Unit CM following for return. Chart identified patient has legal guardian. CINDY communicated with Admission's Coordinator at [facility]/Erinn Martínez and then with guardian rep from [facility]/Jaci Cordova. Per guardian, guardianship is out of [facility] [address]. Obtained Letters of Guardianship (see below). CINDY confirmed with guardian, jai plan is for patient to return to [facility] at ca. Obtained additional contacts for guardian (home phone and email) and added to emergency contact section. Updated EMR to show active guardianship status. Pre-operative Diagnosis: Right tibia nonunion, fibula malnunion Post-operative Diagnosis: Same Procedure: Right Below Knee Amputation (CPT 40298) Components used: NA Anesthesia: general and regional Surgeon: Carleen Assistants: Chelsea Estimated Blood Loss: 200ml Complications: None Medications: 2g Ancef was given after intraoperative cultures were obtained Specimens: Right Leg Operative findings: No signs of infection the level of amputation. The muscle was normal in color and contractility at the level of the amputation. History of present illness: Talia is a 44 y.o. 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 After a long discussion of multiple surgical options including nonunion deformity surgeries versus amputation the patient ultimately decided to proceed with a below knee amputation. Despite the risks of surgery which had been discussed in detail Talia consented to proceed. Operative report: I met with Talia in the preoperative area prior to the procedure and discussed the surgical plan once again and answered all of his questions related to the procedure and the expected post-operative course. The risks of surgery were discussed including but not limited to the risks of medications given for surgery, the risk of blood loss during and after surgery that can lead to the need for blood products in certain situations, infection, damage to normal structures that can lead to longterm problems of pain or dysfunction, wound healing complications, and late or chronic pain were also discussed. The possible need for a more proximal amputation was discussed in the setting of a non-healing wound or infection. In addition potentially life threatening complications at the time of surgery and after surgery were discussed including but not limited to deep vein thrombosis, pulmonary embolism, myocardial infarction, stroke and . I initialed his Right lower extremity and signed his consent form. he was brought to the operating room and placed in the supine position on the Operating Room table. Care was taken to identify and pad all bony prominences. A general anesthetic was then given by the anesthesia staff and an endotracheal tube was placed by the anesthesia staff. At all times during the operative procedure the patient's head neck and airway were protected by the anesthesia staff. A tourniquet was applied to the Right proximal thigh over cast padding.The Right lower extremity was then prepped and draped in the usual orthopedic sterile fashion. A surgical timeout was then performed with the patient's identification, the procedure to be performed being reviewed, verification that the patient had received preoperative antibiotics, and verification of the correct surgical side. This timeout was performed by myself, the circulating room nurse and the anesthesia staff. The patient's ASA was verified by the nurse litigation attorney associate and the anesthesia staff. Fire risk was assessed. The Right lower extremity was elevated for exsanguination and the tourniquet was inflated. An incision was made over the anterior leg 15 cm distal to the knee joint line. The incision was extended over both the medial and lateral halves of the leg to a point midway between the anterior and posterior aspects of the leg. The incision was carefully made to avoid and resect the patient's prior muscle flap in order to minimize any risk of poor vascular supply to his skin due to the flap. The saphenous vein was identified medially and it was ligated with #1 surgilon and divided. The saphenous nerve was pulled distally, cut proximally and allowed to retract into the proximal leg. At this midway point the incision was curved distally down the leg and gradually posteriorly until the medial and lateral incisions met over the achilles tendon posteriorly. The achilles was divided transversely at this level distally. The anterior compartment of the leg was dissected proximally and the anterior tibial artery and vein were tied off using #1 surgilon stick tie sutures and divided. The deep peroneal nerve was pulled distally cut proximally and was allowed to retract into the proximal leg. The tibia and fibula were then circumferentially exposed. The fibula was cut 1 cm proximal to the planned tibial cut with a small oscillating saw. The tibia was then cut with a large oscillating saw. The leg was then flexed through the amputation site and an amputation knife was used to remove the leg through the deep posterior compartment. The leg was then passed off the table and sent for pathologic evaluation. The anterior aspect of the tibia was then chamffered using an oscillating saw and a rasp was used to round off all bone edges. No sharp edges remained. All bone cuts with the saws throughout the case were accompanied by irrigation in order to prevent thermal necrosis. The deep posterior muscle was then excised and the posterior tibial artery and vein and the peroneal artery and vein were ligated using #1 surgilon stick ties proximally. The distal ends were excised. The tibial nerve was pulled distally and cut proximally and it was allowed to retract into the leg proximally. Similarly the sural nerve was identified, pulled and cut proximally. The tourniquet was then released and any active bleeding was controlled using bovie cautery of suture ligature. The entire amputation wound was then thoroughly irrigated with copious amounts of sterile saline. The wound was re-inspected for any active bleeding and if found cautery or suture ligature was performed as necessary. The achilles was then repaired to the tibial periosteum utilizing 0-vicryl suture. The medial and lateral facia were then repaired to the posterior flap fascia thereby completely closing there muscle flap entirely. 2-0 vicryl was then used to close the subcutaneous tissue layer with interupted, buried sutures. The skin was then closed with marvin. An incisional VAC dressing was applied and a good seal was obtained. The patient was then awakened from his anesthetic, transferred to his hospital bed and was taken to the recovery room in stable medical condition. Post-operative plan: The patient will be seen in the office in 2 weeks for wound check and the sutures/marvin will be removed if the incision is completely healed. If not completely healed then he will be seen at 4 weeks for a recheck. Will discuss with medical team on homegoing DVT recommendations. Pt prepped for OR; unable to access periop board - notified appropriate people. Case management consult noted. Will follow for transitional care and discharge planning needs. Chart reviewed. Noted patient is from [facility]. Will speak with him and make sure he is okay with returning. Problem: Pain - Adult Goal: Verbalizes/displays adequate comfort level or baseline comfort level Outcome: Progressing Problem: Safety - Adult Goal: Free from fall injury Outcome: Progressing documented in this encounter [facility] 12-06-2024 Note Patient declined smo kathie cessation counseling. Accepting of handout with contact information for future reference. [facility] 12-06-2024 History of Present illness Narrative Patient declined smoking cessation counseling. Accepting of handout with contact information for future reference. Images from the original note were not included. PHYSICAL THERAPY [facility] Treatment Note Name/MRN: Talia Ruby ([id number]) Date of : 1980 Age: 44 y.o. Room/Bed: [facility] A Discharge Recommendation: IP Rehab Equipment Needed: No Prior Level of Function Prior Level of ADL Function: Independent Prior Level of Mobility: Independent; Device: Crutches Prior Level of Transfers: Independent Assessment Pt demos decreased balance, strength, and endurance. He requires min assist for transfers and ambulation. No PT goals met this session. Recommend IP Rehab at discharge. Subjective Pt is supine in the bed, agrees to PT. Pain: Rogers-Robles Pain Ratin = Hurts even more Pain Location: RLE Medical Precautions: No active isolations Proper PPE donned/doffed in accordance with facility standards. Fall Risk: San Fall Risk Score: 50 (High Risk) Precautions/Restrictions: Right LE Weight Bearing: NON-WEIGHTBEARING Lines/Drains/Airways: PIV, wound vac Fall Precautions Education on BKA positioning to prevent contractures Overall Cognitive Status: WFL Overall Orientation Status: Oriented to Place and Oriented to Person Family/Caregiver Present: none Objective Bed Mobility Supine to sit: SBA Sit to supine: SBA Rolling to left: SBA Scooting: SBA HOB Elevated Use of bed rail(s) Transfers/Mobility Sit to stand: Min Assist Stand to sit: Contact Guard Ambulation Ambulation 1 Assistive device(s) used: Front wheeled walker Assist level: Min Assist Distance (ft): 10 ft x 2 Balance During Session: Pt sat at EOB with supervision Pt stood at FWW with min assist Exercises Exercises Straight Leg Raise: BLE AROM Quad Sets: BLE AROM Heelslides: LLE AROM Gluteal Sets: BLE AROM Hip Flexion: BLE AROM Hip Abduction: BLE AROM Knee Long Arc Quad: BLE AROM Ankle Pumps: LLE AROM Plan Continue acute PT per plan of care. Safety/Education Safety Safety Devices in place: All fall risk precautions in place, call light within reach, left in bed, and no alarms engaged upon entry Restraints: No Education Education Given To: patient Education Provided: PT Role, PT Goals, Gait Training, Plan of Care, Transfer Training, and Discharge Recommendations Education Method: Verbal Barriers to Learning: None Education Outcome: Verbalized Understanding and Continued Education Needed Outcome Measures AM-PAC AM-PAC Inpatient Mobility Raw Score (No Stairs) : 16 JH-HLM JH-HLM Score: Walked 10 steps or more (i.e. walked to restroom) Goals Patient Stated Goal: to get stronger Encounter Problems Encounter Problems (Active) Mobility Patient will ambulate 50 feet with modified independence and least restrictive device in order to improve safety and independence with mobility. (Progressing) Start: 12/04/24 Expected End: 01/01/25 Pain - Adult Transfers Patient will perform bed mobility with independence in order to improve independence and prepare for out of bed mobility. (Progressing) Start: 12/04/24 Expected End: 01/01/25 Patient will complete functional transfer with least restrictive device with modified independence in order to prepare for ambulation. (Progressing) Start: 12/04/24 Expected End: 01/01/25 Therapy Time Individual Co-treatment Time In 1043 Time Out 1106 Minutes 23 Timed Code Treatment Minutes: (GT. TP) Kenyetta Chase PTA Cosigned by Anselmo Thomas PT at 12/06/2024 12:42 PM EDT Department of Internal Medicine Division of Endocrinology, Diabetes, & Metabolism Endocrinology Note Patient Name: Talia Ruby : 1980 AGE: 44 y.o. Room/Bed: [facility] A Admission Date: 12/02/2024 Visit Date: 12/06/2024 Reason for Endocrine Consult: uncontrolled DM Provider/Team Requesting Consult: Internal Medicine PCP: No primary care provider on file. Outpt Family Worker: No ASSESSMENT: Type 2 DM, uncontrolled Hyperglycemia secondary to corticosteroids Hypothyroidism S/p R BKA obesity PLAN: Increase Lantus 32 units qAM Increase Humalog 12 units AC with med dose correction scale AC ICU goal 140-180 GMF goal 100-180 POCT BG ACHS Hypoglycemia management per protocol Carb controlled diet Continue LT4 home dose 50 mcg/day ANTICIPATED ENDOCRINE HOME GOING RECOMMENDATIONS: Optimized for Discharge from Endocrine standpoint: YES Home Going Endocrine Rx Recommendations-- Recommend to be transferred to [facility] on current doses Lantus/Humalog. Discontinue glipizide. As outpatient can add metformin, GLP-1 agonist if no contraindications. Outpt Follow Up-- Needs to establish care with PCP SUBJECTIVE/HPI: Interim 12/06 No abd pain, n/v. Good appetite . POC glucose and insulin administration for last 24h reviewed. CHIEF COMPLAINT: patient admitted for R BKA No chief complaint on file. 44/M with background medical history noted below which includes Type 2 DM, obesity, , hypothyroidism, asthma, HTN, hyperlipidemia, MAXIMO, PTSD-admitted for elective R BKA. He is a resident of [facility]. He has had multiple surgeries on his R LE- with fractures to his right tibia and fibula-eventually with varus deformity. We are consulted for uncontrolled DM. He has had type 2 DM ~6-8 years. Managed by the physician at his facility. He reports being on a basal insulin but does not recall the name/dose. No recent [id number] available is from 01/2024, 6.3%. Denies any known history of retinopathy, hx of photocoagulation, symptoms of peripheral neuropathy. No known CAD, PVD, CVA. Perioperatively, patient was also given dexamethasone 4 mg IV. Was patient's birthday yesterday-had cake also and no CHO restriction- POC glucose noted below >450-confirmatory lab glucose was 477 at 6pm. He received a total of 23 units of Humalog yesterday. BMP glucose at midnight 349, CO2 24, AG 9. No complaints currently-eating breakfast. Interim history Progress noted, no new complaints. Eating full shares. Reviewed POC glucose, insulin dosing, labs. Type of DM: Type 2 DM Onset of DM: ~2018 Home DM Medication Regimen: unrecalled basal insulin only DM control (last A1c/glucose data): 8% this admission -prior to this HbA1c 6.3% from 01/2024 Lab Results Component Value Date HGBA1C 8.0 (H) 2024 Glucose Date/Time Value Ref Range Status 12/06/2024 08:14 AM 210 (H) 70 - 100 mg/dL Final 12/05/2024 08:24 PM 198 (H) 70 - 100 mg/dL Final 12/05/2024 03:57 PM 230 (H) 70 - 100 mg/dL Final 12/05/2024 11:58 AM 240 (H) 70 - 100 mg/dL Final 12/05/2024 09:26 AM 232 (H) 70 - 100 mg/dL Final 12/05/2024 08:10 AM 227 (H) 70 - 100 mg/dL Final Review of Systems ROS negative except for those mentioned in HPI. OBJECTIVE: Vitals: 12/05/24 0924 12/05/24 1009 12/05/24 2136 12/06/24 0813 BP: 126/74 130/80 129/73 126/77 BP Location: Right arm Patient Position: Sitting Pulse: 68 67 72 80 Resp: 18 16 20 Temp: (!) 35.9 C (96.6 F) (!) 35.5 C (95.9 F) 36.3 C (97.3 F) 36.8 C (98.3 F) TempSrc: Temporal Temporal Temporal Temporal SpO2: 98% 98% 95% 94% Weight: Physical Exam Constitutional: Appearance: Normal appearance. He is obese. HENT: Head: Atraumatic. Cardiovascular: Rate and Rhythm: Normal rate and regular rhythm. Pulmonary: Effort: Pulmonary effort is normal. Abdominal: General: There is no distension. Tenderness: There is no abdominal tenderness. There is no guarding. Musculoskeletal: Cervical back: Neck supple. Left lower leg: No edema. Comments: R LE with dressing, recent BKA noted Neurological: General: No focal deficit present. Mental Status: He is alert. Psychiatric: Mood and Affect: Mood normal. Behavior: Behavior normal. 24 hour intake/output: Intake/Output Summary (Last 24 hours) at 12/06/2024 1108 Last data filed at 12/06/2024 0545 Gross per 24 hour Intake 2265 ml Output 2250 ml Net 15 ml Diet: Adult diet Regular; 3 carb choices (45 gm/meal) Medications (as per EMR): HomeMeds: Current Outpatient Medications Medication Instructions acetaminophen (TYLENOL EXTRA STRENGTH) 1,000 mg, Oral, Every 6 hours PRN aspirin 81 mg, Oral, Daily atorvastatin (LIPITOR) 20 mg, Nightly divalproex (DEPAKOTE) 500 mg, 2 times daily docusate sodium (COLACE) 100 mg, Oral, 2 times daily glimepiride (AMARYL) 4 mg, Daily with breakfast glipiZIDE (GLUCOTROL) 10 mg, 2 times daily before meals ipratropium-albuterol (Duo-Neb) 0.5-2.5 mg/3 mL nebulizer solution 3 mL, Nebulization, 3 times daily PRN levothyroxine (SYNTHROID, LEVOXYL) 50 mcg, Daily before breakfast melatonin 5 mg, Oral, Nightly OLANZapine (ZYPREXA) 5 mg, Oral, Every 6 hours PRN ondansetron (ZOFRAN) 4 mg, Oral, Every 8 hours PRN oxyCODONE (ROXICODONE) 5 mg, Oral, Every 6 hours PRN polyethylene glycol (PEG) 3350 (MIRALAX) 17 g, Oral, Daily sennosides (SENOKOT) 8.6 mg, Oral, 2 times daily sennosides (SENOKOT) 8.6 mg, Oral, Daily, Take at minimum once per day to prevent constipation while taking narcotic pain medicine (such as oxycodone, percocet, norco, hydrocodone). traZODone (DESYREL) 50 mg, Oral, Nightly PRN Scheduled Meds:acetaminophen, 1,000 mg, Oral, TID atorvastatin, 20 mg, Oral, Nightly divalproex, 500 mg, Oral, BID enoxaparin, 40 mg, SubCUTAneous, q12h insulin glargine, 26 Units, SubCUTAneous, q AM insulin lispro, 0-12 Units, SubCUTAneous, TID WC insulin lispro, 10 Units, SubCUTAneous, TID WC levothyroxine, 50 mcg, Oral, qAM AC melatonin, 5 mg, Oral, Nightly methocarbamol, 1,000 mg, Oral, 3 times per day OLANZapine, 15 mg, Oral, BID sennosides, 2 tablet, Oral, Nightly Or Senna, 10 mL, Oral, Nightly sodium chloride 0.9%, 5-40 mL, IntraVENous, q12h Continuous Infusions:sodium chloride, 100 mL/hr, Last Rate: Stopped (12/06/24 0700) PRN Meds:PRN medications: dextrose, dextrose, glucagon (rDNA), glucose, HYDROmorphone OR HYDROmorphone, ibuprofen OR ibuprofen, ipratropium-albuterol, naloxone, nicotine polacrilex, ondansetron ODT OR ondansetron, oxyCODONE OR oxyCODONE, polyethylene glycol (PEG) 3350, sodium chloride, sodium chloride 0.9%, traZODone Diagnostic Workup: I reviewed pertinent Laboratory results, Radiographic results, and Other Clinical Notes at the time of today's encounter. Labs: No components found for: "LABA1C" No components found for: "EAG" Lab Results Component Value Date NA 138 12/06/2024 K 4.0 12/06/2024 CL 103 12/06/2024 CO2 27 12/06/2024 BUN 13 12/06/2024 CREATININE 0.84 12/06/2024 GLUCOSE 271 (H) 12/06/2024 CALCIUM 8.6 12/06/2024 No results found for: "CHLPL", CHOL No results found for: "TRIG" No results found for: "HDL" No results found for: "LDLCALC" No results found for: "VLDL" No results found for: CHOLHDLRATIO No results found for: "XPIA56YVC" No results found for: "TSH", "Y6KNRMA", "O3NPRRL", "THYROIDAB" Radiology reportsas per the Radiologist Radiology: POCT glucose meter Result Date: 12/03/2024 Performed by: [facility], [address] [place] [id number] CLIA ID: [id number] POCT glucose meter Result Date: 12/03/2024 Performed by: [facility], [address] [place] [address], [facility] [address] CLIA ID: [id number] POCT glucose meter Result Date: 12/03/2024 Performed by: [facility], [address] [place] [address], [facility] [address] CLIA ID: [id number] POCT glucose meter Result Date: 12/03/2024 Performed by: [facility], [address] [place] [address], [facility] [address] CLIA ID: [id number] POCT glucose meter Result Date: 12/03/2024 Performed by: [facility], [address] [place] [address], [facility] [address] CLIA ID: [id number] POCT glucose meter Result Date: 12/03/2024 Performed by: [facility], [address] [place] [id number] CLIA ID: [id number] POCT glucose meter Result Date: 12/02/2024 Performed by: [facility], [address] [place] [address], [facility] [address] CLIA ID: [id number] Vascular US lower extremity arterial PVR Result Date: 12/02/2024 Right side findings: Resting NEYDA is 1.07. This is within the normal range. Left side findings: Resting NEYDA is 1.03. This is within the normal range. POCT glucose meter Result Date: 12/02/2024 Performed by: [facility], [address] [place] [address], [facility] [address] CLIA ID: [id number] ECG 12 lead Sinus rhythm Low voltage, precordial leads Abnormal lateral Q waves Minimal ST elevation, inferior leads XR tibia fibula 2 views right Result Date: 12/02/2024 [facility] 1980 [id number] Exam Date/Time: 12/02/2024 15:08 Procedure: XR TIBIA FIBULA 2 VIEWS RIGHT Ordering Provider: RUTLEDGE EMILY Reason For Exam: SURGERY Right tib-fib two views HISTORY: Surgery COMPARISON: 11/25/2024 Again seen are fractures of the shafts of the tibia and fibula. The fibular fracture appears mostly healed. There is nonunion, angulation, and nonunion of the tibial fracture. Report Dictated on Electronically Signed By: Errol Franks MD Electronically Signed Date/Time: 12/02/2024 3:15 PM EST XR chest 1 view Result Date: 12/02/2024 [facility] Name: [facility] 1980 [id number] Exam Date/Time: 12/02/2024 15:08 Procedure: XR CHEST 1 VIEW Ordering Provider: RUTLEDGE EMILY Reason For Exam: SURGERY Chest one view History: Short of breath The heart, mediastinum, pulmonary vasculature, lungs and pleural spaces are normal. Normal examination. Report Dictated on Electronically Signed By: Errol Franks MD Electronically Signed Date/Time: 12/02/2024 3:14 PM EST History/Other: Past Medical History: Past Medical History: Diagnosis Date Asthma Bipolar disorder (HCC) Diabetes mellitus (HCC) ETOH abuse HTN (hypertension) Hyperlipidemia MAXIMO on CPAP PTSD (post-traumatic stress disorder) 2/2 witness suicide as a child T2DM (type 2 diabetes mellitus) (HCC) Tobacco abuse Past Surgical History: Past Surgical History: Procedure Laterality Date FRACTURE SURGERY Right leg, s/p bone graft LEG AMPUTATION THROUGH LOWER TIBIA AND FIBULA Right 12/03/2024 RIGHT BELOW KNEE AMPUTATION - Right OTHER SURGICAL HISTORY 02/25/2024 IRRIGATION AND DEBRIDEMENT HAND AND LONG FINGER METACARPOPHALANGEAL JOINT - Left Allergy(ies): Allergies Allergen Reactions Haldol [Haloperidol] Metformin Risperdal [Risperidone] Family History: Family History Problem Relation Name Age of Onset Bipolar disorder Other Social History: Social History Tobacco Use Smoking status: Every Day Substance Use Topics Alcohol use: Yes Drug use: Yes Types: Marijuana Portions of the information within this encounter were entered using an electronic dictation system. Best attempts were made to edit/proofread the information prior to note completion. Despite the review of information, some errors may remain. If there are questions related to the information contained within the note please contact the signing physician directly. I spent 35 minutes with the pt which involved coordination of care, medical evaluation, review of records, and/or counseling of the pt regarding his/her condition/disease state/prognosis on the date of this note. Hospitalist Progress Note 12/06/2024 Subjective: Admit Date: 12/02/2024 PCP: No primary care provider on file. Room#: -6130/-6130 A BRIEF HOSPITAL COURSE: Per prior notes; 44 y.o. male pmhx of obesity, bipolar disorder, MAXIMO noncompliant with CPAP, bronchial asthma, diet-controlled diabetes mellitus, hyperlipidemia, hypothyroidism, chronic smoking history, PTSD, left middle finger MCP joint septic arthritis with MSSA, insomnia presented to [facility] for elective right below the knee amputation which was performed on 12/03/2024. USACS consulted for medical management. Interval History: - No overnight issues. -Patient says he feels well he denies any chest pain shortness breath. No new complaints, pending disposition at this time. Adult diet Regular; 3 carb choices (45 gm/meal) 24HR INTAKE/OUTPUT: Intake/Output Summary (Last 24 hours) at 12/06/2024 0946 Last data filed at 12/06/2024 0545 Gross per 24 hour Intake 2265 ml Output 3150 ml Net -885 ml Past Medical History: Past Medical History: Diagnosis Date Asthma Bipolar disorder (HCC) Diabetes mellitus (HCC) ETOH abuse HTN (hypertension) Hyperlipidemia MAXIMO on CPAP PTSD (post-traumatic stress disorder) 2/2 witness suicide as a child T2DM (type 2 diabetes mellitus) ([facility]) Tobacco abuse LABS: CBC: Recent Labs 12/04/24 0039 12/05/24 0008 12/06/24 0028 WBC 10.4 7.8 7.2 RBC 4.07* 3.77* 4.08* HGB 12.0* 11.3* 12.0* HCT 34.6* 33.0* 35.5* MCV 85.0 87.5 87.0 RDW 12.5 12.7 12.9 PLT 190 141 165 BMP: Recent Labs 12/04/24 0039 12/05/24 0008 12/06/24 0028 NA 132* 140 138 K 4.3 3.9 4.0 CL 99 104 103 CO2 24 26 27 BUN 19 19 13 CREATININE 1.08 0.89 0.84 GLUCOSE 349* 229* 271* CALCIUM 8.9 8.1* 8.6 ANIONGAP 9 10 8 LIVER PROFILE:No results for input(s): "AST", "ALT", "BILITOT", "ALKPHOS", "PROT" in the last 72 hours. No lab exists for component: LABALBU PT/INR: No results for input(s): "PROTIME", "INR" in the last 72 hours. CARDIAC ENZYMES: No results for input(s): "TROPONINI" in the last 72 hours. Procalcitonin: No results found for: "PROCAL" COVID-19 PCR: No results for input(s): "COVID19" in the last 72 hours. Objective: Vitals: BP 126/77 Pulse 80 Temp 36.8 C (98.3 F) (Temporal) Resp 20 Wt 264 lb 8.8 oz (120 kg) SpO2 94% BMI 40.82 kg/m Pulse Ox: SpO2 Av.7 % Min: 94 % Max: 98 % Supplemental O2: O2 Flow Rate (L/min): 2 L/min Physical Exam Constitutional: Appearance: Normal appearance. He is obese. He is not ill-appearing. HENT: Head: Normocephalic and atraumatic. Nose: Nose normal. Mouth/Throat: Mouth: Mucous membranes are moist. Eyes: Extraocular Movements: Extraocular movements intact. Pupils: Pupils are equal, round, and reactive to light. Cardiovascular: Rate and Rhythm: Normal rate and regular rhythm. Pulses: Normal pulses. Heart sounds: Normal heart sounds. Pulmonary: Effort: Pulmonary effort is normal. No respiratory distress. Breath sounds: Normal breath sounds. No wheezing or rhonchi. Abdominal: General: Abdomen is flat. Palpations: Abdomen is soft. Tenderness: There is no abdominal tenderness. Musculoskeletal: General: Deformity and signs of injury present. Normal range of motion. Cervical back: Normal range of motion and neck supple. Right lower leg: No edema. Left lower leg: No edema. Comments: Status post right lower extremity BKA Skin: General: Skin is warm and dry. Neurological: General: No focal deficit present. Mental Status: He is alert and oriented to person, place, and time. Motor: Weakness present. Medications: Scheduled PRN acetaminophen, 1,000 mg, Oral, TID atorvastatin, 20 mg, Oral, Nightly divalproex, 500 mg, Oral, BID enoxaparin, 40 mg, SubCUTAneous, q12h insulin glargine, 26 Units, SubCUTAneous, q AM insulin lispro, 0-12 Units, SubCUTAneous, TID WC insulin lispro, 10 Units, SubCUTAneous, TID WC levothyroxine, 50 mcg, Oral, qAM AC melatonin, 5 mg, Oral, Nightly methocarbamol, 1,000 mg, Oral, 3 times per day OLANZapine, 15 mg, Oral, BID sennosides, 2 tablet, Oral, Nightly Or Senna, 10 mL, Oral, Nightly sodium chloride 0.9%, 5-40 mL, IntraVENous, q12h PRN medications: dextrose, dextrose, glucagon (rDNA), glucose, HYDROmorphone OR HYDROmorphone, ibuprofen OR ibuprofen, ipratropium-albuterol, naloxone, nicotine polacrilex, ondansetron ODT OR ondansetron, oxyCODONE OR oxyCODONE, polyethylene glycol (PEG) 3350, sodium chloride, sodium chloride 0.9%, traZODone Continuous sodium chloride, 100 mL/hr, Last Rate: Stopped (12/06/24 0700) Assessment Acute, acute on chronic, unstable/uncontrolled chronic problems/diagnoses: 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 Mild hyponatremia improving Hyperglycemia and type II diabetic followed by endocrine Stable chronic problems affecting care, new non-acute diagnoses: Hyperlipidemia Hypothyroidism Obesity, class III MAXIMO noncompliant with CPAP Bipolar disorder PTSD Schizophrenia History of asthma not in exacerbation Left middle finger MCP joint septic arthritis Plan As a result of the above findings & factors, the following mgmt was pursued: -Resume home medication as ordered -Rest of plan as above -Endocrinology was consulted -Orthopedic surgery primary, disposition per orthopedic surgery, noted to be awaiting rehab - am labs, replace lytes prn - PT/OT/CM/SW Extended Emergency Contact Information Primary Emergency Contact: Jaci Cordova Mobile Relation: Legal Guardian Secondary Emergency Contact: Jeny Ruby Relation: Mother Jey David MD Division of Hospitalist Medicine [facility] Disclaimers: This note may have been dictated using [employer] Edition 2.6 and/or [employer] Voice Recognition Feature. The document was proofread; however, unrecognized voice recognition sports equipment repairer errors may be present. Images from the original note were not included. [facility] [address] [facility] [address] Dept: [phone] Loc: [phone] Orthopedic Progress Note Name: Talia Ruby Date:12/06/2024 Attending:Patti Durant MD Subjective No events o/n. Patient doing well. Pain well controlled. Asked about discharge to SNF, awaiting placement at this time. Objective Vitals: Vitals: 12/05/24 0809 12/05/24 0924 12/05/24 1009 12/05/24 2136 BP: 149/89 126/74 130/80 129/73 BP Location: Right arm Right arm Patient Position: Sitting Sitting Pulse: 59 68 67 72 Resp: 18 18 16 Temp: 36 C (96.8 F) (!) 35.9 C (96.6 F) (!) 35.5 C (95.9 F) 36.3 C (97.3 F) TempSrc: Temporal Temporal Temporal Temporal SpO2: 97% 98% 98% 95% Weight: Physical Exam: General: NAD RLE Dressing/Skin: Clean/Dry/Intact, WV holding suction SILT: intact to the stump Motor: intact quad Pulses: stump WWP LABS: Recent Labs 12/04/24 0039 12/05/24 0008 12/06/24 0028 WBC 10.4 7.8 7.2 HGB 12.0* 11.3* 12.0* HCT 34.6* 33.0* 35.5* PLT 190 141 165 Recent Labs 12/04/24 0039 12/05/24 0008 12/06/24 0028 NA 132* 140 138 K 4.3 3.9 4.0 CL 99 104 103 CO2 24 26 27 BUN 19 19 13 CREATININE 1.08 0.89 0.84 CALCIUM 8.9 8.1* 8.6 No results for input(s): "INR" in the last 72 hours. No results for input(s): "SEDRATE", "CRP" in the last 72 hours. No results for input(s): "HCG" in the last 72 hours. Assessment Talia is a 44 y.o.male s/p R BKA 12/03 Plan -Operative plans: No further plans for surgery -Weight bearing: RLE: NWB LLE: WBAT RUE: WBAT LUE: WBAT -Range of motion parameters: ROM as tolerated -Immobilization: No immobilization needed -Consults: Acute pain service consult for pain control recommendations -Antibiotics: 24 hours of post op antibiotics. -Dressings: Continue wound vac 125mmHg continous. Measure cannister output every shift. Prevena at Bedside -Other: None -Diet: no restrictions from ortho standpoint -Labs: No further labs needed from ortho standpoint. -PT/OT -PT recommended outpatient/post discharge?: Yes, for basic ADLs -Lovenox inpatient, ASA 81 BID x30 -Follow-up with Dr Durant in 2 weeks - Ortho primary, awaiting rehab Kael Hubbard MD Orthopaedic Surgery PGY4 12/06/2024 7:04 AM Images from the original note were not included. PHYSICAL THERAPY [facility] Treatment Note Name/MRN: Talia Ruby ([id number]) Date of : 1980 Age: 44 y.o. Room/Bed: H-6130/H-6130 A Discharge Recommendation: IP Rehab Equipment Needed: No Prior Level of Function Prior Level of ADL Function: Independent Prior Level of Mobility: Independent; Device: Crutches Prior Level of Transfers: Independent Assessment Pt presents with the listed deficits and decreased functional mobility. Bed Mobility demo'd SBA with use of bed features. Exercise performed to improve ROM and strength for future functional mobility. Demo'd BLE AROM. Pt limited by weakness, fatigue and RLE pain. PT goals progressing. Pt would benefit from continued skilled PT. Pt is motivated and able to tolerate 3 hours of therapy a day. Recommend IP Rehab at discharge. Subjective Pt supine, flat. Agreeable to there ex at EOB. Reports fatigue and pain. Pain: 0-10 pain scale: 8/10 Location: RLE Medical Precautions: No active isolations Proper PPE donned/doffed in accordance with facility standards. Fall Risk: San Fall Risk Score: 60 (High Risk) Precautions/Restrictions: Right LE Weight Bearing: Weight Bearing As Tolerated Lines/Drains/Airways: PIV, wound vac Fall Precautions Education on BKA positioning to prevent contractures Overall Cognitive Status: WFL Overall Orientation Status: Oriented x4 Family/Caregiver Present: none Objective Bed Mobility Supine to sit: SBA Sit to supine: SBA Scooting: SBA Assist with wound vac. Increased time and effort required to complete. HOB flat with use of bed rails. No cues for sequencing and initiation required. Required no physical assist. Denies dizziness. Rest break required once sitting EOB. Dyspnea noted with pursed lip breathing. Balance During Session: Posture: good Sitting - Static: Modified Independent Sitting - Dynamic: Supervision Exercises Exercises Straight Leg Raise: BLE AROM Quad Sets: BLE AROM Heelslides: LLE AROM Gluteal Sets: BLE AROM Hip Flexion: BLE AROM Hip Abduction: BLE AROM Hip Adduction: BLE AROM Knee Long Arc Quad: BLE AROM Ankle Pumps: LLE AROM Educated on LE Therapeutic Exercise to improve muscle strength and therefore improve ease with functional transfers. Instruction for proper technique and alignment. Cues for appropriate pace and focus on eccentric control. Rest breaks provided due to fatigue and audible breathing. Educated on benefits of performing exercise throughout the day. Recommend 2-3 sets of 5-10 reps, 2x daily. Plan Continue acute PT per plan of care. Safety/Education Safety Safety Devices in place: All fall risk precautions in place, call light within reach, left in bed, patient at risk for falls, nurse notified, and no alarms engaged upon entry Restraints: No Education Education Given To: patient Education Provided: PT Role, PT Goals, Plan of Care, Home Exercise Program, Precautions, Transfer Training, Energy Conservation, Fall Prevention Education, Discharge Recommendations, Benefits of Increasing Activity, and Breathing Techniques Education Method: Verbal, Demonstration, and Teach Back Barriers to Learning: None Education Outcome: Verbalized Understanding, Demonstrated Understanding, and Continued Education Needed Outcome Measures AM-PAC AM-PAC Inpatient Mobility Raw Score (No Stairs) : 16 JH-HLM JH-HLM Score: Sat at edge of bed Goals Patient Stated Goal: to get stronger Encounter Problems Encounter Problems (Active) Mobility Patient will ambulate 50 feet with modified independence and least restrictive device in order to improve safety and independence with mobility. (Not Addressed) Start: 12/04/24 Expected End: 01/01/25 Pain - Adult Transfers Patient will perform bed mobility with independence in order to improve independence and prepare for out of bed mobility. (Progressing) Start: 12/04/24 Expected End: 01/01/25 Patient will complete functional transfer with least restrictive device with modified independence in order to prepare for ambulation. (Not Addressed) Start: 12/04/24 Expected End: 01/01/25 Therapy Time Individual Co-treatment Time In 1440 Time Out 1451 Minutes 11 Timed Code Treatment Minutes: 11 Minutes (TP) GENERAL OPERATOR wore PPE in compliance with hospital guidelines and regulation when treating this patient. Nany Jackson PTA Cosigned by Cori Poe PT at 12/05/2024 4:48 PM EDT Images from the original note were not included. PHYSICAL THERAPY [facility] Name/MRN: Talia Ruby ([id number]) Date: 12/05/2024 Chart review completed this date. PT attempted. RN reports pt eating breakfast at this time. Requests GENERAL OPERATOR return at a later time. PT will continue to follow. Will re-attempt another time/date as schedule permits. Nany Jackson PTA Cosigned by Mary Lambert PT at 12/05/2024 1:01 PM EDT Hospitalist Progress Note 12/05/2024 Subjective: Admit Date: 12/02/2024 PCP: No primary care provider on file. Room#: H-7770/H-4978 A BRIEF HOSPITAL COURSE: Per prior notes; 44 y.o. male pmhx of obesity, bipolar disorder, MAXIMO noncompliant with CPAP, bronchial asthma, diet-controlled diabetes mellitus, hyperlipidemia, hypothyroidism, chronic smoking history, PTSD, left middle finger MCP joint septic arthritis with MSSA, insomnia presented to [facility] for elective right below the knee amputation which was performed on 12/03/2024. USACS consulted for medical management. Interval History: - No overnight issues. -Patient says he feels well he denies any chest pain shortness breath. No new complaints Adult diet Regular; 3 carb choices (45 gm/meal) 24HR INTAKE/OUTPUT: Intake/Output Summary (Last 24 hours) at 12/05/2024 0945 Last data filed at 12/05/2024 0602 Gross per 24 hour Intake 800 ml Output 2150 ml Net -1350 ml Past Medical History: Past Medical History: Diagnosis Date Asthma Bipolar disorder (HCC) Diabetes mellitus (HCC) ETOH abuse HTN (hypertension) Hyperlipidemia MAXIMO on CPAP PTSD (post-traumatic stress disorder) 2/2 witness suicide as a child T2DM (type 2 diabetes mellitus) ([facility]) Tobacco abuse LABS: CBC: Recent Labs 12/03/24 0046 12/04/24 0039 12/05/24 0008 WBC 7.1 10.4 7.8 RBC 4.54 4.07* 3.77* HGB 13.3 12.0* 11.3* HCT 38.4* 34.6* 33.0* MCV 84.6 85.0 87.5 RDW 12.6 12.5 12.7 PLT 162 190 141 BMP: Recent Labs 12/03/24 0046 12/03/24 1814 12/04/24 0039 12/05/24 0008 NA 134* -- 132* 140 K 4.0 -- 4.3 3.9 CL 101 -- 99 104 CO2 27 -- 24 26 BUN 17 -- 19 19 CREATININE 0.91 -- 1.08 0.89 GLUCOSE 296* 477* 349* 229* CALCIUM 8.9 -- 8.9 8.1* ANIONGAP 6 -- 9 10 LIVER PROFILE:No results for input(s): "AST", "ALT", "BILITOT", "ALKPHOS", "PROT" in the last 72 hours. No lab exists for component: LABALBU PT/INR: Recent Labs 12/02/24 1459 PROTIME 11.3 INR 1.0 CARDIAC ENZYMES: No results for input(s): "TROPONINI" in the last 72 hours. Procalcitonin: No results found for: "PROCAL" COVID-19 PCR: No results for input(s): "COVID19" in the last 72 hours. Objective: Vitals: BP 126/74 Pulse 68 Temp (!) 35.9 C (96.6 F) (Temporal) Resp 18 Wt 264 lb 8.8 oz (120 kg) SpO2 98% BMI 40.82 kg/m Pulse Ox: SpO2 Av % Min: 96 % Max: 98 % Supplemental O2: O2 Flow Rate (L/min): 2 L/min Physical Exam Constitutional: Appearance: Normal appearance. He is obese. He is not ill-appearing. HENT: Head: Normocephalic and atraumatic. Nose: Nose normal. Mouth/Throat: Mouth: Mucous membranes are moist. Eyes: Extraocular Movements: Extraocular movements intact. Pupils: Pupils are equal, round, and reactive to light. Cardiovascular: Rate and Rhythm: Normal rate and regular rhythm. Pulses: Normal pulses. Heart sounds: Normal heart sounds. Pulmonary: Effort: Pulmonary effort is normal. No respiratory distress. Breath sounds: Normal breath sounds. No wheezing or rhonchi. Abdominal: General: Abdomen is flat. Palpations: Abdomen is soft. Tenderness: There is no abdominal tenderness. Musculoskeletal: General: Deformity and signs of injury present. Normal range of motion. Cervical back: Normal range of motion and neck supple. Right lower leg: No edema. Left lower leg: No edema. Comments: Status post right lower extremity BKA Skin: General: Skin is warm and dry. Neurological: General: No focal deficit present. Mental Status: He is alert and oriented to person, place, and time. Motor: Weakness present. Medications: Scheduled PRN acetaminophen, 1,000 mg, Oral, TID atorvastatin, 20 mg, Oral, Nightly divalproex, 500 mg, Oral, BID enoxaparin, 40 mg, SubCUTAneous, q12h insulin glargine, 26 Units, SubCUTAneous, q AM insulin lispro, 0-12 Units, SubCUTAneous, TID WC insulin lispro, 10 Units, SubCUTAneous, TID WC levothyroxine, 50 mcg, Oral, qAM AC melatonin, 5 mg, Oral, Nightly methocarbamol, 1,000 mg, Oral, 3 times per day OLANZapine, 15 mg, Oral, BID sennosides, 2 tablet, Oral, Nightly Or Senna, 10 mL, Oral, Nightly sodium chloride 0.9%, 5-40 mL, IntraVENous, q12h PRN medications: dextrose, dextrose, glucagon (rDNA), glucose, HYDROmorphone OR HYDROmorphone, ibuprofen OR ibuprofen, ipratropium-albuterol, naloxone, nicotine polacrilex, ondansetron ODT OR ondansetron, oxyCODONE OR oxyCODONE, polyethylene glycol (PEG) 3350, sodium chloride, sodium chloride 0.9%, traZODone Continuous sodium chloride, 100 mL/hr, Last Rate: 100 mL/hr (12/05/24 0722) Assessment Acute, acute on chronic, unstable/uncontrolled chronic problems/diagnoses: 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 Mild hyponatremia improving Hyperglycemia and type II diabetic followed by endocrine Stable chronic problems affecting care, new non-acute diagnoses: Hyperlipidemia Hypothyroidism Obesity, class III MAXIMO noncompliant with CPAP Bipolar disorder PTSD Schizophrenia History of asthma not in exacerbation Left middle finger MCP joint septic arthritis Plan As a result of the above findings & factors, the following mgmt was pursued: -Resume home medication as ordered -Rest of plan as above -Endocrinology was consulted -Orthopedic surgery primary, disposition per orthopedic surgery, noted to be awaiting rehab - am labs, replace lytes prn - PT/OT/CM/SW Extended Emergency Contact Information Primary Emergency Contact: Jaci Cordova Mobile Relation: Legal Guardian Secondary Emergency Contact: Jeny Ruby Relation: Mother Jey David MD Division of Hospitalist Medicine [employer] Disclaimers: This note may have been dictated using [employer] Medical Practice Edition 2.6 and/or [employer] Voice Recognition Feature. The document was proofread; however, unrecognized voice recognition sports equipment repairer errors may be present. Images from the original note were not included. [facility] PCU [address] [facility] [address] Dept: [phone] Loc: [phone] Orthopedic Progress Note Name: Talia Ruby Date:12/05/2024 Attending:Jey David MD Subjective No events o/n. Patient doing well. Pain well controlled. Relatively flat affect. No new issues. Doing alright Objective Vitals: Vitals: 12/03/24 2002 12/04/24 0746 12/04/24 1627 12/04/242011 BP: 128/85 125/66 111/69 BP Location: Left arm Left arm Right arm Patient Position: Sitting Sitting Lying Pulse: 96 84 77 73 Resp: 18 16 19 14 Temp: 36.4 C (97.6 F) 36.4 C (97.5 F) 36.4 C (97.5 F) TempSrc: Temporal Temporal Temporal SpO2: 95% 97% 97% 96% Weight: Physical Exam: General: NAD RLE Dressing/Skin: Clean/Dry/Intact, WV holding suction SILT: intact to the stump Motor: intact quad Pulses: stump WWP LABS: Recent Labs 12/03/24 0046 12/04/249 12/05/24 0008 WBC 7.1 10.4 7.8 HGB 13.3 12.0* 11.3* HCT 38.4* 34.6* 33.0* PLT 162 190 141 Recent Labs 12/03/24 0046 12/04/24 0039 12/05/24 0008 NA 134* 132* 140 K 4.0 4.3 3.9 CL 101 99 104 CO2 27 24 26 BUN 17 19 19 CREATININE 0.91 1.08 0.89 CALCIUM 8.9 8.9 8.1* Recent Labs 12/02/24 1459 INR 1.0 Recent Labs 12/02/24 1459 12/02/24 1656 SEDRATE -- 5 CRP 3.3 -- No results for input(s): "HCG" in the last 72 hours. Assessment Talia is a 44 y.o.male s/p R BKA 12/03 Plan -Operative plans: No further plans for surgery -Weight bearing: RLE: NWB LLE: WBAT RUE: WBAT LUE: WBAT -Range of motion parameters: ROM as tolerated -Immobilization: No immobilization needed -Consults: Acute pain service consult for pain control recommendations -Antibiotics: 24 hours of post op antibiotics. -Dressings: Continue wound vac 125mmHg continous. Measure cannister output every shift. Prevena at Bedside -Other: None -Diet: no restrictions from ortho standpoint -Labs: No further labs needed from ortho standpoint. -PT/OT -PT recommended outpatient/post discharge?: Yes, for basic ADLs -Lovenox inpatient, ASA 81 BID x30 -Follow-up with Dr Durant in 2 weeks - Ortho primary, awaiting rehab Kael Hubbard MD Orthopaedic Surgery PGY4 12/05/2024 7:43 AM Department of Internal Medicine Division of Endocrinology, Diabetes, & Metabolism Endocrinology Note Patient Name: Talia Ruby : 1980 AGE: 44 y.o. Room[facility]Bed: [facility] A Admission Date: 12/02/2024 Visit Date: 12/05/2024 Reason for Endocrine Consult: uncontrolled DM Provider/Team Requesting Consult: Internal Medicine PCP: No primary care provider on file. Outpt Family Worker: No ASSESSMENT: Type 2 DM, uncontrolled Hyperglycemia secondary to corticosteroids Hypothyroidism S/p R BKA obesity PLAN: Will use basal bolus insulin while he is here Adjust regimen to Lantus 26 units qAM Humalog 12 units AC with med dose correction scale AC ICU goal <180 GMF goal <150 POCT BG ACHS Hypoglycemia management per protocol Carb controlled diet Continue LT4 home dose 50 mcg/day ANTICIPATED ENDOCRINE HOME GOING RECOMMENDATIONS: Optimized for Discharge from Endocrine standpoint: No Home Going Endocrine Rx Recommendations-- Recommend do go home on Lantus/Humalog. Discontinue glipizide. As outpatient can add metformin, GLP-1 agonist if no contraindications. Outpt Follow Up-- Needs to establish care with PCP SUBJECTIVE/HPI: CHIEF COMPLAINT: patient admitted for R BKA No chief complaint on file. 44/M with background medical history noted below which includes Type 2 DM, obesity, , hypothyroidism, asthma, HTN, hyperlipidemia, MAXIMO, PTSD-admitted for elective R BKA. He is a resident of [facility]. He has had multiple surgeries on his R LE- with fractures to his right tibia and fibula-eventually with varus deformity. We are consulted for uncontrolled DM. He has had type 2 DM ~6-8 years. Managed by the physician at his facility. He reports being on a basal insulin but does not recall the name/dose. No recent [id number] available is from 01/2024, 6.3%. Denies any known history of retinopathy, hx of photocoagulation, symptoms of peripheral neuropathy. No known CAD, PVD, CVA. Perioperatively, patient was also given dexamethasone 4 mg IV. Was patient's birthday yesterday-had cake also and no CHO restriction- POC glucose noted below >450-confirmatory lab glucose was 477 at 6pm. He received a total of 23 units of Humalog yesterday. BMP glucose at midnight 349, CO2 24, AG 9. No complaints currently-eating breakfast. Interim history Progress noted, no new complaints. Eating full shares. Reviewed POC glucose, insulin dosing, labs. Type of DM: Type 2 DM Onset of DM: ~2018 Home DM Medication Regimen: unrecalled basal insulin only DM control (last A1c/glucose data): 8% this admission -prior to this HbA1c 6.3% from 01/2024 Lab Results Component Value Date HGBA1C 8.0 (H) 2024 Glucose Date/Time Value Ref Range Status 12/05/2024 08:10 AM 227 (H) 70 - 100 mg/dL Final 2024 08:08 PM 223 (H) 70 - 100 mg/dL Final 2024 04:12 PM 228 (H) 70 - 100 mg/dL Final 2024 12:23 PM 299 (H) 70 - 100 mg/dL Final 2024 07:47 AM 382 (H) 70 - 100 mg/dL Final 12/03/2024 08:00 PM >450 (H) 70 - 100 mg/dL Final Comment: Confirmation Drawn; Review of Systems ROS negative except for those mentioned in HPI. OBJECTIVE: Vitals: 12/04/24 1627 12/04/24201112/05/24 0809 12/05/24 0924 BP: 111/69 149/89 126/74 BP Location: Right arm Right arm Patient Position: Lying Sitting Pulse: 77 73 59 68 Resp: 19 14 18 Temp: 36.4 C (97.5 F) 36 C (96.8 F) (!) 35.9 C (96.6 F) TempSrc: Temporal Temporal Temporal SpO2: 97% 96% 97% 98% Weight: Physical Exam Constitutional: Appearance: Normal appearance. He is obese. HENT: Head: Atraumatic. Cardiovascular: Rate and Rhythm: Normal rate and regular rhythm. Pulmonary: Effort: Pulmonary effort is normal. Abdominal: General: There is no distension. Tenderness: There is no abdominal tenderness. There is no guarding. Musculoskeletal: Cervical back: Neck supple. Left lower leg: No edema. Comments: R LE with dressing, recent BKA noted Neurological: General: No focal deficit present. Mental Status: He is alert. Psychiatric: Mood and Affect: Mood normal. Behavior: Behavior normal. 24 hour intake/output: Intake/Output Summary (Last 24 hours) at 12/05/2024 09 Last data filed at 12/05/2024 0602 Gross per 24 hour Intake 800 ml Output 2150 ml Net -1350 ml Diet: Adult diet Regular; 3 carb choices (45 gm/meal) Medications (as per EMR): HomeMeds: Current Outpatient Medications Medication Instructions acetaminophen (TYLENOL EXTRA STRENGTH) 1,000 mg, Oral, Every 6 hours PRN aspirin 81 mg, Oral, Daily atorvastatin (LIPITOR) 20 mg, Nightly divalproex (DEPAKOTE) 500 mg, 2 times daily docusate sodium (COLACE) 100 mg, Oral, 2 times daily glimepiride (AMARYL) 4 mg, Daily with breakfast glipiZIDE (GLUCOTROL) 10 mg, 2 times daily before meals ipratropium-albuterol (Duo-Neb) 0.5-2.5 mg/3 mL nebulizer solution 3 mL, Nebulization, 3 times daily PRN levothyroxine (SYNTHROID, LEVOXYL) 50 mcg, Daily before breakfast melatonin 5 mg, Oral, Nightly OLANZapine (ZYPREXA) 5 mg, Oral, Every 6 hours PRN ondansetron (ZOFRAN) 4 mg, Oral, Every 8 hours PRN oxyCODONE (ROXICODONE) 5 mg, Oral, Every 6 hours PRN polyethylene glycol (PEG) 3350 (MIRALAX) 17 g, Oral, Daily sennosides (SENOKOT) 8.6 mg, Oral, 2 times daily sennosides (SENOKOT) 8.6 mg, Oral, Daily, Take at minimum once per day to prevent constipation while taking narcotic pain medicine (such as oxycodone, percocet, norco, hydrocodone). traZODone (DESYREL) 50 mg, Oral, Nightly PRN Scheduled Meds:acetaminophen, 1,000 mg, Oral, TID atorvastatin, 20 mg, Oral, Nightly divalproex, 500 mg, Oral, BID enoxaparin, 40 mg, SubCUTAneous, q12h insulin glargine, 26 Units, SubCUTAneous, q AM insulin lispro, 0-12 Units, SubCUTAneous, TID WC insulin lispro, 10 Units, SubCUTAneous, TID WC levothyroxine, 50 mcg, Oral, qAM AC melatonin, 5 mg, Oral, Nightly methocarbamol, 1,000 mg, Oral, 3 times per day OLANZapine, 15 mg, Oral, BID sennosides, 2 tablet, Oral, Nightly Or Senna, 10 mL, Oral, Nightly sodium chloride 0.9%, 5-40 mL, IntraVENous, q12h Continuous Infusions:sodium chloride, 100 mL/hr, Last Rate: 100 mL/hr (12/05/24721) PRN Meds:PRN medications: dextrose, dextrose, glucagon (rDNA), glucose, HYDROmorphone OR HYDROmorphone, ibuprofen OR ibuprofen, ipratropium-albuterol, naloxone, nicotine polacrilex, ondansetron ODT OR ondansetron, oxyCODONE OR oxyCODONE, polyethylene glycol (PEG) 3350, sodium chloride, sodium chloride 0.9%, traZODone Diagnostic Workup: I reviewed pertinent Laboratory results, Radiographic results, and Other Clinical Notes at the time of today's encounter. Labs: No components found for: "LABA1C" No components found for: "EAG" Lab Results Component Value Date NA 140 12/05/2024 K 3.9 12/05/2024 CL 104 12/05/2024 CO2 26 12/05/2024 BUN 19 12/05/2024 CREATININE 0.89 12/05/2024 GLUCOSE 229 (H) 12/05/2024 CALCIUM 8.1 (L) 12/05/2024 No results found for: "CHLPL", CHOL No results found for: "TRIG" No results found for: "HDL" No results found for: "LDLCALC" No results found for: "VLDL" No results found for: CHOLHDLRATIO No results found for: "YAOJ03RNW" No results found for: "TSH", "V4CPUMY", "E5XSHZM", "THYROIDAB" Radiology reportsas per the Radiologist Radiology: POCT glucose meter Result Date: 12/03/2024 Performed by: [employer] [facility], [address] [place] [id number] CLIA ID: [id number] POCT glucose meter Result Date: 12/03/2024 Performed by: [facility], [address] [place] [id number] CLIA ID: [id number] POCT glucose meter Result Date: 12/03/2024 Performed by: [employer] [facility], [address] [place] [id number] CLIA ID: [id number] POCT glucose meter Result Date: 12/03/2024 Performed by: [facility], [address] [place] [address] [id number] CLIA ID: [id number] POCT glucose meter Result Date: 12/03/2024 Performed by: [facility], [address] [place] [id number] CLIA ID: [id number] POCT glucose meter Result Date: 12/03/2024 Performed by: [facility], [address] [place] [id number] CLIA ID: [id number] POCT glucose meter Result Date: 12/02/2024 Performed by: [facility], [address] [place] [id number] CLIA ID: [id number] Vascular US lower extremity arterial PVR Result Date: 12/02/2024 Right side findings: Resting NEYDA is 1.07. This is within the normal range. Left side findings: Resting NEYDA is 1.03. This is within the normal range. POCT glucose meter Result Date: 12/02/2024 Performed by: [facility], [address] [place] [id number] CLIA ID: [id number] ECG 12 lead Sinus rhythm Low voltage, precordial leads Abnormal lateral Q waves Minimal ST elevation, inferior leads XR tibia fibula 2 views right Result Date: 12/02/2024 Patient Name: TALIA RUBY : 1980 Exam Date/Time: 12/02/2024 15:08 Procedure: XR TIBIA FIBULA 2 VIEWS RIGHT Ordering Provider: RUTLEDGE EMILY Reason For Exam: SURGERY Right tib-fib two views HISTORY: Surgery COMPARISON: 11/25/2024 Again seen are fractures of the shafts of the tibia and fibula. The fibular fracture appears mostly healed. There is nonunion, angulation, and nonunion of the tibial fracture. Report Dictated on Electronically Signed By: Errol Franks MD Electronically Signed Date/Time: 12/02/2024 3:15 PM EST XR chest 1 view Result Date: 12/02/2024 Patient Name: TALIA RUBY : 1980 Exam Date/Time: 12/02/2024 15:08 Procedure: XR CHEST 1 VIEW Ordering Provider: RUTLEDGE EMILY Reason For Exam: SURGERY Chest one view History: Short of breath The heart, mediastinum, pulmonary vasculature, lungs and pleural spaces are normal. Normal examination. Report Dictated on Electronically Signed By: Errol Franks MD Electronically Signed Date/Time: 12/02/2024 3:14 PM EST History/Other: Past Medical History: Past Medical History: Diagnosis Date Asthma Bipolar disorder (HCC) Diabetes mellitus (HCC) ETOH abuse HTN (hypertension) Hyperlipidemia MAXIMO on CPAP PTSD (post-traumatic stress disorder) 2/2 witness suicide as a child T2DM (type 2 diabetes mellitus) (HCC) Tobacco abuse Past Surgical History: Past Surgical History: Procedure Laterality Date FRACTURE SURGERY Right leg, s/p bone graft LEG AMPUTATION THROUGH LOWER TIBIA AND FIBULA Right 12/03/2024 RIGHT BELOW KNEE AMPUTATION - Right OTHER SURGICAL HISTORY 02/25/2024 IRRIGATION AND DEBRIDEMENT HAND AND LONG FINGER METACARPOPHALANGEAL JOINT - Left Allergy(ies): Allergies Allergen Reactions Haldol [Haloperidol] Metformin Risperdal [Risperidone] Family History: Family History Problem Relation Name Age of Onset Bipolar disorder Other Social History: Social History Tobacco Use Smoking status: Every Day Substance Use Topics Alcohol use: Yes Drug use: Yes Types: Marijuana Portions of the information within this encounter were entered using an electronic dictation system. Best attempts were made to edit/proofread the information prior to note completion. Despite the review of information, some errors may remain. If there are questions related to the information contained within the note please contact the signing physician directly. I spent 35 minutes with the pt which involved coordination of care, medical evaluation, review of records, and/or counseling of the pt regarding his/her condition/disease state/prognosis on the date of this note. Hospitalist Progress Note 2024 Subjective: Admit Date: 12/02/2024 PCP: No primary care provider on file. Room#: H-2864/H-3547 A BRIEF HOSPITAL COURSE: Per prior notes; 44 y.o. male pmhx of obesity, bipolar disorder, MAXIMO noncompliant with CPAP, bronchial asthma, diet-controlled diabetes mellitus, hyperlipidemia, hypothyroidism, chronic smoking history, PTSD, left middle finger MCP joint septic arthritis with MSSA, insomnia presented to [facility] for elective right below the knee amputation scheduled for 12/03/2024. [facility] consulted for medical management. Ortho planning for right BKA. Preoperative hemoglobin 13.3 Interval History: No overnight issues. Patient was sleeping comfortably on evaluation but woke up. Only complaints during discussion are that he has not yet had a bowel movement since admission but otherwise pain is starting to increase. Case and plan discussed with patient and bedside nurse. All questions answered. Adult diet Regular; 3 carb choices (45 gm/meal) 24HR INTAKE/OUTPUT: Intake/Output Summary (Last 24 hours) at 2024 1335 Last data filed at 2024 0746 Gross per 24 hour Intake 1498.33 ml Output 1575 ml Net -76.67 ml Past Medical History: Past Medical History: Diagnosis Date Asthma Bipolar disorder (HCC) Diabetes mellitus (HCC) ETOH abuse HTN (hypertension) Hyperlipidemia MAXIMO on CPAP PTSD (post-traumatic stress disorder) 2/2 witness suicide as a child T2DM (type 2 diabetes mellitus) (HCC) Tobacco abuse LABS: CBC: Recent Labs 12/02/24 1459 12/03/24 0046 12/04/24 0039 WBC 7.0 7.1 10.4 RBC 4.85 4.54 4.07* HGB 14.0 13.3 12.0* HCT 42.4 38.4* 34.6* MCV 87.4 84.6 85.0 RDW 12.7 12.6 12.5 PLT 159 162 190 BMP: Recent Labs 12/02/24 1459 12/03/24 0046 12/03/24 1814 12/04/24 0039 NA 133* 134* -- 132* K 4.1 4.0 -- 4.3 CL 101 101 -- 99 CO2 27 27 -- 24 BUN 16 17 -- 19 CREATININE 1.01 0.91 -- 1.08 GLUCOSE 277* 296* 477* 349* CALCIUM 9.3 8.9 -- 8.9 ANIONGAP 5 6 -- 9 LIVER PROFILE:No results for input(s): "AST", "ALT", "BILITOT", "ALKPHOS", "PROT" in the last 72 hours. No lab exists for component: LABALBU PT/INR: Recent Labs 12/02/24 1459 PROTIME 11.3 INR 1.0 CARDIAC ENZYMES: No results for input(s): "TROPONINI" in the last 72 hours. Procalcitonin: No results found for: "PROCAL" COVID-19 PCR: No results for input(s): "COVID19" in the last 72 hours. Objective: Vitals: BP 125/66 (BP Location: Left arm, Patient Position: Sitting) Pulse 84 Temp 36.4 C (97.5 F) (Temporal) Resp 16 Wt 264 lb 8.8 oz (120 kg) SpO2 97% BMI 40.82 kg/m Pulse Ox: SpO2 Av.3 % Min: 95 % Max: 97 % Supplemental O2: O2 Flow Rate (L/min): 2 L/min Physical Exam Vitals reviewed. Constitutional: General: He is not in acute distress. Appearance: He is obese. He is not ill-appearing or toxic-appearing. Comments: Sleeping but woke up for encounter Cardiovascular: Rate and Rhythm: Normal rate and regular rhythm. Heart sounds: Normal heart sounds. Pulmonary: Effort: Pulmonary effort is normal. No respiratory distress. Breath sounds: Normal breath sounds. Abdominal: General: There is no distension. Palpations: Abdomen is soft. Tenderness: There is no abdominal tenderness. Comments: Rounded abdomen due to body habitus Musculoskeletal: Left lower leg: No edema. Comments: Right BKA, clean dry and intact dressing Skin: General: Skin is warm. Neurological: Mental Status: He is alert. Psychiatric: Mood and Affect: Mood normal. Behavior: Behavior normal. Medications: Scheduled PRN acetaminophen, 1,000 mg, Oral, TID atorvastatin, 20 mg, Oral, Nightly divalproex, 500 mg, Oral, BID enoxaparin, 40 mg, SubCUTAneous, q12h insulin glargine, 26 Units, SubCUTAneous, q AM insulin lispro, 0-12 Units, SubCUTAneous, TID WC insulin lispro, 10 Units, SubCUTAneous, TID WC levothyroxine, 50 mcg, Oral, qAM AC melatonin, 5 mg, Oral, Nightly methocarbamol, 1,000 mg, Oral, 3 times per day OLANZapine, 15 mg, Oral, BID sennosides, 2 tablet, Oral, Nightly Or Senna, 10 mL, Oral, Nightly sodium chloride 0.9%, 5-40 mL, IntraVENous, q12h PRN medications: dextrose, dextrose, glucagon (rDNA), glucose, HYDROmorphone OR HYDROmorphone, ibuprofen OR ibuprofen, ipratropium-albuterol, naloxone, nicotine polacrilex, ondansetron ODT OR ondansetron, oxyCODONE OR oxyCODONE, polyethylene glycol (PEG) 3350, sodium chloride, sodium chloride 0.9%, traZODone Continuous sodium chloride, 100 mL/hr, Last Rate: 100 mL/hr (12/04/24 1039) Assessment Data: (LOW: 2x CAT1 or independent historian MOD: 3x CAT1 or 1x CAT3 EXTENSIVE: 3x CAT1 and 1x CAT3) Acute, acute on chronic, unstable/uncontrolled chronic problems/diagnoses: 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 Mild hyponatremia improving Hyperglycemia and type II diabetic followed by endocrine Stable chronic problems affecting care, new non-acute diagnoses: Hyperlipidemia Hypothyroidism Obesity MAXIMO noncompliant with CPAP Bipolar disorder PTSD Schizophrenia History of asthma not in exacerbation Left middle finger MCP joint septic arthritis Plan As a result of the above findings & factors, the following mgmt was pursued: 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 -Orthopedic surgery is primary team Currently has patient with consult and APS for pain regimen Mild hyponatremia improving Hyperglycemia type 2 diabetes Endocrine following and adjusting regimen Hypothyroidism Patient currently on home Synthroid History of PTSD, schizophrenia, bipolar disorder Patient on home Zyprexa and Depakote History of hyperlipidemia Patient on home statin - am labs, replace lytes prn - PT/OT/CM/SW - delirium precautions: increase activity - DVT prophylaxis: enoxaparin and encourage ambulation Complexity: Chronic illness with severe exacerbation, progression, or side effect of tx (HIGH). Risk: Admission to hospital-level care was considered or occurred (HIGH). Consult to surgery for emergency major surgery, or major surgery with identified patient or procedural risk factors, was considered or occurred (HIGH). Advance Directive: Full Code Anticipated Discharge - Date - per primary - Location - per primary - Pending the following -improvement of acute medical issue Total time spent (which include face to face and non face to face encounters) : 35 minutes Toxic drug monitoring/narrow therapeutic index drug monitoring : # Drug name : na # Route administered : NA # Method of monitoring : NA Extended Emergency Contact Information Primary Emergency Contact: Jaci Cordova Mobile Relation: Legal Guardian Secondary Emergency Contact: Jeny Ruby Relation: Mother Leida Mendieta MD Division of Hospitalist Medicine [facility] Images from the original note were not included. PHYSICAL THERAPY [facility] Initial Evaluation Name/MRN: Talia Ruby ([id number]) Evaluation Date: 2024 Date of : 1980 Admission Date: 12/02/2024 12:00 PM Age: 44 y.o. Room/Bed: [facility] A Discharge Recommendation: IP Rehab Equipment Needed: No Assessment IMPRESSION: 44 y.o. pt admitted to 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 They were SBA for bed mobility, Min A for transfers, and Min A for ambulation. He is from SNF where he was indep with mobility and only set up for ADLs. Would recommend IP rehab at discharge. Pt can tolerate 3 hr therapy/day. 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 Agreeable to PT session. Cleared by nursing Pain: Rogers-Robles Pain Ratin = Hurts even more Pain Location: RLE Past Medical History: Past Medical History: Diagnosis Date Asthma Bipolar disorder (HCC) Diabetes mellitus (HCC) ETOH abuse HTN (hypertension) Hyperlipidemia MAXIMO on CPAP PTSD (post-traumatic stress disorder) 2/2 witness suicide as a child T2DM (type 2 diabetes mellitus) (HCC) Tobacco abuse Past Surgical History: Past Surgical History: Procedure Laterality Date FRACTURE SURGERY Right leg, s/p bone graft LEG AMPUTATION THROUGH LOWER TIBIA AND FIBULA Right 12/03/2024 RIGHT BELOW KNEE AMPUTATION - Right OTHER SURGICAL HISTORY 02/25/2024 IRRIGATION AND DEBRIDEMENT HAND AND LONG FINGER METACARPOPHALANGEAL JOINT - Left Admission Diagnosis: Patient Active Problem List Diagnosis Date Noted 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 12/02/2024 Chronic osteomyelitis (CMS/HCC) ([facility]) 03/24/2024 Pyogenic arthritis of left hand, due to unspecified organism ([facility]) 02/25/2024 Pyogenic arthritis of left hand ([facility]) 02/25/2024 Bipolar 1 disorder ([facility]) 02/22/2017 Tobacco abuse 02/17/2017 Hyperlipidemia 02/17/2017 HTN (hypertension) 02/17/2017 ETOH abuse 02/17/2017 Acute encephalopathy 02/14/2017 T2DM (type 2 diabetes mellitus) ([facility]) 02/14/2017 Obstructive apnea 02/14/2017 Morbid obesity ([facility]) 02/14/2017 Controlled diabetes mellitus type II without complication ([facility]) 02/14/2017 Acute respiratory failure with hypoxia and hypercapnia ([facility]) 02/14/2017 Medical Precautions: No active isolations Proper PPE donned/doffed in accordance with facility standards. Fall Risk: San Fall Risk Score: 0 (Low Risk) Precautions/Restrictions: Right LE Weight Bearing: Weight Bearing As Tolerated Lines/Drains/Airways: PIV, wound vac Fall Precautions Education on BKA positioning to prevent contractures Family/Caregiver Present: none Overall Cognitive Status: WFL Overall Orientation Status: Oriented x4 Vision: No Visual Deficits Hearing: normal Social/Functional History Patient admitted from SNF. Assistive Equipment: crutches Prior Level of Function Prior Level of ADL Function: Independent Prior Level of Mobility: Independent; Device: Crutches Prior Level of Transfers: Independent Objective Lower Extremity Assessment AROM: WFL PROM: WFL Strength: WFL 3+/5 overall Sensation: WFL Balance: Not assessed this session Bed Mobility: Supine to sit: SBA HOB elevated Transfers Sit to stand: Min Assist Stand to sit: Contact Guard EOB x1, chair x1 Ambulation Ambulation 1 Assistive device(s) used: Crutches Assist level: Contact Guard, Min Assist Distance (ft): 10' + 15' Quality of gait: slow pat Outcome Measures AM-PAC How much HELP from another person do you currently need Turning from your back to your side while in a flat bed without using bedrails?: None Moving from lying on your back to sitting on the side of a flat bed without using bedrails?: A Little Moving to and from a bed to a chair (including a wheelchair)?: A Little Standing up from a chair using your arms (wheelchair or bedside chair)?: A Little Walking in a hospital room?: A Little Stair climbing assessed?: No AM-PAC Inpatient Mobility Raw Score (No Stairs) : 16 JH-HLM JH-HLM Score: Walked 25 ft or more (i.e. walked outside of room) Plan Pt would benefit from skilled acute PT services to address Strengthening, Gait Training, Balance Training, Functional Mobility Training, Endurance Training, Safety Education and Training, Stair Training, Equipment Evaluation/Education, Neuromuscular Re-Education Training, and Patient/Caregiver Training. Frequency: 5x/week for 4 weeks Barriers: Impaired balance, Lower extremity weakness, Decreased endurance, and Limited safety awareness Safety/Education Safety Safety Devices in place: call light within reach, left in chair, gait belt, patient at risk for falls, and nurse notified Restraints: No Education Education Given To: patient Education Provided: PT Role, PT Goals, Plan of Care, Transfer Training, Fall Prevention Education, Discharge Recommendations, and Benefits of Increasing Activity Education Method: Verbal Barriers to Learning: None Education Outcome: Verbalized Understanding Goals Patient Stated Goal: to get stronger Encounter Problems Encounter Problems (Active) Mobility Patient will ambulate 50 feet with modified independence and least restrictive device in order to improve safety and independence with mobility. Start: 12/04/24 Expected End: 01/01/25 Pain - Adult Transfers Patient will perform bed mobility with independence in order to improve independence and prepare for out of bed mobility. Start: 12/04/24 Expected End: 01/01/25 Patient will complete functional transfer with least restrictive device with modified independence in order to prepare for ambulation. Start: 12/04/24 Expected End: 01/01/25 Therapy Time Individual Co-Treatment Co-Evaluation Time In 0935 Time Out 0953 Minutes 18 Timed Code Treatment Minutes: (mod eval) Gem Lopez PT Patient's Physical Therapy Plan of Care supervision is transferred to a [facility] Physical Therapist. Goals and/or treatment plan was established in collaboration with patient/family/other representatives. Images from the original note were not included. OCCUPATIONAL THERAPY [facility] Initial Evaluation Name/MRN: Talia Ruby ([id number]) Evaluation Date: 2024 Date of : 1980 Admission Date: 12/02/2024 12:00 PM Age: 44 y.o. Room/Bed: 1930/1230 A Discharge Recommendation: IP Rehab Equipment Needed: (TBD) Assessment IMPRESSION: 44 y/o male admitted for closed displaced oblique fx of R tibia s/p R BKA 12/03. Pt recently at SNF but reports indep with ADLs and mobility using crutches. Pt limited by pain and NWB RLE. Min assist functional transfers and mobility using crutches. Min assist for sitting/standing balance LB dressing. Recommend IP rehab to maximize potential at discharge and return to prior level of independence. Pt is motivated and can tolerate 3 hours of therapy per day. Admitting Diagnosis: closed displaced oblique fx of R tibia s/p R BKA 12/03 Performance Deficits /Impairments: Increased Pain, Decreased Functional Mobility, Decreased ADL status, Decreased Strength, Decreased Safety Awareness, Decreased Endurance, Decreased Balance, Decreased High Level IADLs, and Decreased Sensation Prognosis: Good Decision Making: Medium Complexity Subjective Pt sitting upright in chair, agreeable to OT. Pt reports R big toe "itches" but denies any other phantom sensations. Pain: RN managing pain. 0-10 pain scale: 5/10 Location: RLE Past Medical History: Past Medical History: Diagnosis Date Asthma Bipolar disorder ([facility]) Diabetes mellitus ([facility]) ETOH abuse HTN (hypertension) Hyperlipidemia MAXIMO on CPAP PTSD (post-traumatic stress disorder) 2/2 witness suicide as a child T2DM (type 2 diabetes mellitus) ([facility]) Tobacco abuse Past Surgical History: Past Surgical History: Procedure Laterality Date FRACTURE SURGERY Right leg, s/p bone graft LEG AMPUTATION THROUGH LOWER TIBIA AND FIBULA Right 12/03/2024 RIGHT BELOW KNEE AMPUTATION - Right OTHER SURGICAL HISTORY 02/25/2024 IRRIGATION AND DEBRIDEMENT HAND AND LONG FINGER METACARPOPHALANGEAL JOINT - Left Admission Diagnosis: Patient Active Problem List Diagnosis Date Noted 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 12/02/2024 Chronic osteomyelitis (CMS/HCC) ([facility]) 03/24/2024 Pyogenic arthritis of left hand, due to unspecified organism ([facility]) 02/25/2024 Pyogenic arthritis of left hand ([facility]) 02/25/2024 Bipolar 1 disorder ([facility]) 02/22/2017 Tobacco abuse 02/17/2017 Hyperlipidemia 02/17/2017 HTN (hypertension) 02/17/2017 ETOH abuse 02/17/2017 Acute encephalopathy 02/14/2017 T2DM (type 2 diabetes mellitus) ([facility]) 02/14/2017 Obstructive apnea 02/14/2017 Morbid obesity ([facility]) 02/14/2017 Controlled diabetes mellitus type II without complication ([facility]) 02/14/2017 Acute respiratory failure with hypoxia and hypercapnia ([facility]) 02/14/2017 Medical Precautions: No active isolations Proper PPE donned/doffed in accordance with facility standards. Fall Risk: San Fall Risk Score: 0 (High Risk) Precautions/Restrictions: Right LE Weight Bearing: Non-Weight Bearing Lines/Drains/Airways: wound vac, PIV Fall Precautions Family/Caregiver Present: none Overall Cognitive Status: WFL Overall Orientation Status: Oriented x4 Social/Functional History Patient admitted from SNF. Assistive Equipment: crutches Prior Level of Function Prior Level of ADL Function: Independent Prior Level of Mobility: Independent; Device: Crutches Prior Level of Transfers: Independent Objective ADLs LE Dressing: Min Assist, sitting balance to don L sock Toileting: Min Assist, standing/sitting balance for rashida hygiene in bathroom Upper Extremity Assessment AROM: WFL PROM: WFL Strength: WFL pt reports increased discomfort in bilat shoulders from intermediate card tender crutch use Transfers/Mobility Sit to stand: Min Assist Stand to sit: Min Assist Bed to chair: Min Assist Toilet: Min Assist Functional mobility: Min Assist Good safety and problem solving during transfers and mobility. Min assist for balance. Device(s) used: Crutches Sensation: phantom limb sensations AM-PAC AM-PAC Inpatient Daily Activity Raw Score: 20 ADL Inpatient CMS G-Code Modifier: CJ Plan Pt would benefit from skilled acute OT services to address Strengthening, ROM, Gait Training, Balance Training, Self-Care/ADL Training, Functional Mobility Training, Endurance Training, Safety Education and Training, Equipment Evaluation/Education, Neuromuscular Re-Education Training, Home Management Training, and Patient/Caregiver Training. Frequency: 4x/week for 4 weeks Barriers: Pain, Impaired balance, Lower extremity weakness, Decreased endurance, and New weightbearing/ROM restrictions Safety/Education Safety Safety Devices in place: All fall risk precautions in place, call light within reach, left in chair, gait belt, patient at risk for falls, nurse notified, and no alarms engaged upon entry Restraints: No Education Education Given To: patient Education Provided: OT Role, Plan of Care, Precautions, ADL Adaptive Strategies, Transfer Training, Energy Conservation, Equipment, Fall Prevention Education, Discharge Recommendations, and Benefits of Increasing Activity Education Method: Verbal Barriers to Learning: None Education Outcome: Verbalized Understanding Goals Patient Stated Goal: go to different facility for rehab Encounter Problems Encounter Problems (Active) Cognition Patient will demonstrate good safety awareness with the use of crutches with no cues. Start: 12/04/24 Expected End: 01/01/25 Dressings Lower Extremities Patient will dress lower body mod indep. Start: 12/04/24 Expected End: 01/01/25 Safety Patient will recall/demonstrate weight bearing restrictions with all functional mobility in order to promote healing and safety with functional tasks. Start: 12/04/24 Expected End: 01/01/25 Therapeutic Exercise Complete 3 bilateral UE ther ex 10 x 2 sets no cues. Start: 12/04/24 Expected End: 01/01/25 Toileting Patient will complete toileting tasks at standard toilet with supervision. Start: 12/04/24 Expected End: 01/01/25 Transfers Patient will complete functional transfer with least restrictive device with supervision in order to prepare for ambulation. Start: 12/04/24 Expected End: 01/01/25 Therapy Time Individual Co-Treatment Co-Evaluation Time In 1124 Time Out 1147 Minutes 23 Variance: 10 Reason: (requesting to finish lunch) MIREYA Irizarry Patient's Occupational Therapy Plan of Care supervision is transferred to a [facility] Occupational Therapist. Goals and/or treatment plan was established in collaboration with patient/family/other representatives. Nutrition rescreen completed. Chart reviewed. Patient to be monitored and followed by the diet template reproduction technician. MARYANN Guzmán Images from the original note were not included. [facility]U [address] [address] Dept: [phone] Loc: [phone] Orthopedic Progress Note Name: Talia Ruby Date:2024 Attending:Patti Durant MD Subjective No events o/n. Patient doing well. Pain well controlled. No issues with wound vac. Doing alright overall. Objective Vitals: Vitals: 12/03/24 1218 12/03/24 1758 12/03/24 2002 12/04/24 0746 BP: 124/73 108/76 128/85 125/66 BP Location: Left arm Left arm Patient Position: Sitting Sitting Pulse: 71 95 96 84 Resp: 15 18 18 16 Temp: 36.2 C (97.2 F) 36.3 C (97.4 F) 36.4 C (97.6 F) 36.4 C (97.5 F) TempSrc: Temporal Temporal Temporal Temporal SpO2: 97% 97% 95% 97% Weight: Physical Exam: General: NAD RLE Dressing/Skin: Clean/Dry/Intact, W[place] holding suction SILT: intact to the stump Motor: intact quad Pulses: stump WWP LABS: Recent Labs 12/02/24 1459 12/03/24 0046 12/04/24 0039 WBC 7.0 7.1 10.4 HGB 14.0 13.3 12.0* HCT 42.4 38.4* 34.6* PLT 159 162 190 Recent Labs 12/02/24 1459 12/03/24 0046 12/04/24 0039 NA 133* 134* 132* K 4.1 4.0 4.3 CL 101 101 99 CO2 27 27 24 BUN 16 17 19 CREATININE 1.01 0.91 1.08 CALCIUM 9.3 8.9 8.9 Recent Labs 12/02/24 1459 INR 1.0 Recent Labs 12/02/24 1459 12/02/24 1656 SEDRATE -- 5 CRP 3.3 -- No results for input(s): "HCG" in the last 72 hours. Assessment Talia is a 44 y.o.male s/p R BKA 12/03 Plan -Operative plans: No further plans for surgery -Weight bearing: RLE: NWB LLE: WBAT RUE: WBAT LUE: WBAT -Range of motion parameters: ROM as tolerated -Immobilization: No immobilization needed -Consults: Acute pain service consult for pain control recommendations -Antibiotics: 24 hours of post op antibiotics. -Dressings: Continue wound vac 125mmHg continous. Measure cannister output every shift. Prevena at Bedside -Other: None -Diet: no restrictions from ortho standpoint -Labs: No further labs needed from ortho standpoint. -PT/OT -PT recommended outpatient/post discharge?: Yes, for basic ADLs -Lovenox inpatient, ASA 81 BID x30 -Follow-up with Dr Durant in 2 weeks -Ortho to follow. Kael Hubbard MD Orthopaedic Surgery PGY4 2024 8:39 AM Images from the original note were not included. OCCUPATIONAL THERAPY [facility] Name/MRN: Talia Ruby ([id number]) Date: 12/03/2024 Hold OT ritu pt is in the OR for BKA. Will continue to follow as schedule permits. Tamara Day OT Hospital Medicine Consult Patient - Talia Ruby, Age - 44 y.o. - 1980 Room Number - [id number] A Consulting - Patti Durant MD Primary Care Physician - No [facility] provider [facility] file[id number] Date of Admission - 12/02/2024 12:00 PM Hospital Day - 1 Reason for Consult: Medical Management HISTORY OF PRESENT ILLNESS: Talia is a 44 y.o. male pmhx of obesity, bipolar disorder, MAXIMO noncompliant with CPAP, bronchial asthma, diet-controlled diabetes mellitus, hyperlipidemia, hypothyroidism, chronic smoking history, PTSD, left middle finger MCP joint septic arthritis with MSSA, insomnia presented to [facility] for elective right below the knee amputation scheduled for 12/03/2024. [facility] consulted for medical management. Ortho planning for right BKA. Preoperative hemoglobin 13.3 Past Medical History: Past Medical History: Diagnosis Date Asthma Bipolar disorder ([facility]) Diabetes mellitus ([facility]) ETOH abuse HTN (hypertension) Hyperlipidemia MAXIMO on CPAP PTSD (post-traumatic stress disorder) 2/2 witness suicide as a child T2DM (type 2 diabetes mellitus) ([facility]) Tobacco abuse Past Surgical History: Past Surgical History: Procedure Laterality Date FRACTURE SURGERY Right leg, s/p bone graft OTHER SURGICAL HISTORY 02/25/2024 IRRIGATION AND DEBRIDEMENT HAND AND LONG FINGER METACARPOPHALANGEAL JOINT - Left Medications: Scheduled PRN atorvastatin, 20 mg, Oral, Nightly insulin lispro, 0-6 Units, SubCUTAneous, TID WC And insulin lispro, 0-6 Units, SubCUTAneous, Nightly levothyroxine, 50 mcg, Oral, qAM AC melatonin, 5 mg, Oral, Nightly sennosides, 2 tablet, Oral, Nightly Or Senna, 10 mL, Oral, Nightly sodium chloride 0.9%, 5-40 mL, IntraVENous, q12h PRN medications: acetaminophen, dextrose, dextrose, glucagon (rDNA), glucose, HYDROmorphone OR HYDROmorphone, ibuprofen OR ibuprofen, ipratropium-albuterol, naloxone, nicotine polacrilex, ondansetron ODT OR ondansetron, oxyCODONE OR oxyCODONE, polyethylene glycol (PEG) 3350, sodium chloride, sodium chloride 0.9%, traZODone Continuous sodium chloride, 100 mL/hr, Last Rate: 100 mL/hr (12/03/24 0608) Allergies: Haldol [haloperidol], Metformin, and Risperdal [risperidone] Social History: Social History Socioeconomic History Marital status: Single Spouse name: Not on file Number of children: Not on file Years of education: Not on file Highest education level: Not on file Occupational History Not on file Tobacco Use Smoking status: Every Day Smokeless tobacco: Not on file Substance and Sexual Activity Alcohol use: Yes Drug use: Yes Types: Marijuana Sexual activity: Not on file Other Topics Concern Not on file Social History Narrative Not on file Social Drivers of Health Financial Resource Strain: Low Risk (05/19/2023) Received from [facility] Overall Financial Resource Strain (CARDIA) Difficulty of Paying Living Expenses: Not very hard Food Insecurity: Food Insecurity Present (12/29/2023) Received from [facility] Hunger Vital Sign Worried About Running Out of Food in the Last Year: Sometimes true Ran Out of Food in the Last Year: Never true Transportation Needs: No Transportation Needs (12/29/2023) Received from [facility] PRAPARE - Transportation Lack of Transportation (Medical): No Lack of Transportation (Non-Medical): No Physical Activity: Insufficiently Active (05/19/2023) Received from [facility] Exercise Vital Sign Days of Exercise per Week: 2 days Minutes of Exercise per Session: 10 min Stress: Stress Concern Present (05/19/2023) Received from [facility] [employer] [place] [employer] - Occupational Stress Questionnaire Feeling of Stress : To some extent Social Connections: Unknown (05/19/2023) Received from [facility] Social Connection and Isolation Panel [NHANES] Frequency of Communication with Friends and Family: More than three times a week Frequency of Social Gatherings with Friends and Family: Three times a week Attends [employer] Services: Not on file Active Member of Clubs or Organizations: Not on file Attends Club or Organization Meetings: More than 4 times per year Marital Status: Never Intimate Partner Violence: Unknown (02/25/2024) Humiliation, Afraid, Rape, and Kick questionnaire Fear of Current or Ex-Partner: No Emotionally Abused: No Physically Abused: Not on file Sexually Abused: Not on file Housing Stability: High Risk (12/29/2023) Received from [facility] Housing Stability Vital Sign Unable to Pay for Housing in the Last Year: Yes Number of Places Lived in the Last Year: Not on file Unstable Housing in the Last Year: Yes Family History: Family History Problem Relation Name Age of Onset Bipolar disorder Other REVIEW OF SYSTEMS: 10 point ROS obtained, as per HPI, otherwise NEG Physical Exam: Vitals: BP 114/68 (BP Location: Left arm, Patient Position: Lying) Pulse 70 Temp 36.1 C (97 F) (Temporal) Resp 20 Wt 264 lb 8.8 oz (120 kg) SpO2 98% BMI 40.82 kg/m BMI Classification: Obese (BMI 30.0-39.9) Pulse Ox: SpO2 Av.5 % Min: 97 % Max: 98 % Supplemental O2: Physical Exam Vitals and nursing note reviewed. Constitutional: General: He is not in acute distress. Cardiovascular: Rate and Rhythm: Normal rate and regular rhythm. Pulses: Normal pulses. Heart sounds: Normal heart sounds. Pulmonary: Effort: Pulmonary effort is normal. No respiratory distress. Abdominal: General: Bowel sounds are normal. Palpations: Abdomen is soft. Musculoskeletal: Comments: RLE: deformity + Skin: General: Skin is warm. Capillary Refill: Capillary refill takes less than 2 seconds. Neurological: General: No focal deficit present. Mental Status: He is alert. Psychiatric: Mood and Affect: Mood normal. LABS: Recent Results (from the past 24 hours) CBC auto differential Collection Time: 12/02/24 2:59 PM Result Value Ref Range Auto WBC 7.0 3.6 - 10.7 10*3/uL RBC 4.85 4.40 - 5.90 10*6/uL Hemoglobin 14.0 13.0 - 18.0 g/dL Hematocrit 42.4 40.0 - 52.0 % MCV 87.4 77.0 - 99.0 fL MCH 28.9 26.0 - 34.0 pg MCHC 33.0 30.5 - 36.0 % RDW 12.7 11.5 - 15.0 % Platelets 159 140 - 440 10*3/uL MPV 10.4 9.0 - 12.7 fL nRBC 0.0 0.0 - 2.0 /100 WBCs Neutrophils Relative 48.7 38.0 - 82.0 % Lymphocytes Relative 40.2 15.0 - 45.0 % Monocytes Relative 7.3 5.0 - 13.0 % Eosinophils Relative 2.7 0.0 - 6.0 % Basophils Relative 0.7 0.0 - 2.0 % Immature Grans % 0.4 0.0 - 2.0 % Neutrophils Absolute 3.4 1.8 - 7.5 10*3/uL Lymphocytes Absolute 2.8 1.0 - 4.3 10*3/uL Monocytes Absolute 0.5 0.0 - 0.9 10*3/uL Eosinophils Absolute 0.2 0.0 - 0.5 10*3/uL Basophils Absolute 0.1 0.0 - 0.2 10*3/uL Immature Grans Absolute 0.0 <0.1 10*3/uL PROTIME/INR & PTT Collection Time: 12/02/24 2:59 PM Result Value Ref Range PROTHROMBIN TIME 11.3 9.0 - 12.0 s INR 1.0 0.9 - 1.1 APTT 25.5 20.0 - 30.5 s Type and Screen Collection Time: 12/02/24 2:59 PM Result Value Ref Range ABO Grouping O Antibody Screen NEG Rh Type NEG Basic metabolic panel Collection Time: 12/02/24 2:59 PM Result Value Ref Range SODIUM 133 (L) 136 - 145 mmol/L POTASSIUM 4.1 3.5 - 5.1 mmol/L CHLORIDE 101 98 - 107 mmol/L CARBON DIOXIDE 27 22 - 29 mmol/L UREA NITROGEN 16 8 - 21 mg/dL CREATININE 1.01 0.72 - 1.25 mg/dL GLUCOSE 277 (H) 74 - 100 mg/dL CALCIUM 9.3 8.4 - 10.2 mg/dL ANION GAP 5 3 - 13 mmol/L eGFR >90.0 >60.0 mL/min/1.73m*2 C-reactive protein Collection Time: 12/02/24 2:59 PM Result Value Ref Range C REACTIVE PROTEIN 3.3 <5.0 mg/L ECG 12 lead Collection Time: 12/02/24 3:24 PM Result Value Ref Range Heart Rate 75 bpm QRSD Interval 81 ms QT Interval 380 ms QTC Interval 426 ms P [place] 73 degrees QRS [place] 66 degrees T Wave [place] 65 degrees SD Interval 183 ms Vascular US lower extremity arterial PVR Collection Time: 12/02/24 3:45 PM Result Value Ref Range Right arm BP 151 mmHg Right dorsalis pedis BP 153 mmHg Right posterior tibial 161 mmHg Left dorsalis pedis BP 156 mmHg Left posterior tibial 155 mmHg Right NEYDA 1.07 Left NEYDA 1.03 POCT glucose meter Collection Time: 12/02/24 4:12 PM Result Value Ref Range Glucose 223 (H) 70 - 100 mg/dL Sedimentation rate, automated Collection Time: 12/02/24 4:56 PM Result Value Ref Range Sed Rate 5 0 - 10 mm/hr POCT glucose meter Collection Time: 12/02/24 9:34 PM Result Value Ref Range Glucose 293 (H) 70 - 100 mg/dL CBC auto differential Collection Time: 12/03/24 12:46 AM Result Value Ref Range Auto WBC 7.1 3.6 - 10.7 10*3/uL RBC 4.54 4.40 - 5.90 10*6/uL Hemoglobin 13.3 13.0 - 18.0 g/dL Hematocrit 38.4 (L) 40.0 - 52.0 % MCV 84.6 77.0 - 99.0 fL MCH 29.3 26.0 - 34.0 pg MCHC 34.6 30.5 - 36.0 % RDW 12.6 11.5 - 15.0 % Platelets 162 140 - 440 10*3/uL MPV 10.5 9.0 - 12.7 fL nRBC 0.0 0.0 - 2.0 /100 WBCs Neutrophils Relative 46.7 38.0 - 82.0 % Lymphocytes Relative 42.1 15.0 - 45.0 % Monocytes Relative 7.4 5.0 - 13.0 % Eosinophils Relative 3.1 0.0 - 6.0 % Basophils Relative 0.1 0.0 - 2.0 % Immature Grans % 0.6 0.0 - 2.0 % Neutrophils Absolute 3.3 1.8 - 7.5 10*3/uL Lymphocytes Absolute 3.0 1.0 - 4.3 10*3/uL Monocytes Absolute 0.5 0.0 - 0.9 10*3/uL Eosinophils Absolute 0.2 0.0 - 0.5 10*3/uL Basophils Absolute 0.0 0.0 - 0.2 10*3/uL Immature Grans Absolute 0.0 <0.1 10*3/uL Basic metabolic panel Collection Time: 12/03/24 12:46 AM Result Value Ref Range SODIUM 134 (L) 136 - 145 mmol/L POTASSIUM 4.0 3.5 - 5.1 mmol/L CHLORIDE 101 98 - 107 mmol/L CARBON DIOXIDE 27 22 - 29 mmol/L UREA NITROGEN 17 8 - 21 mg/dL CREATININE 0.91 0.72 - 1.25 mg/dL GLUCOSE 296 (H) 74 - 100 mg/dL CALCIUM 8.9 8.4 - 10.2 mg/dL ANION GAP 6 3 - 13 mmol/L eGFR >90.0 >60.0 mL/min/1.73m*2 Urine Culture: No results found for this or any previous visit. IMAGING: See report Assessment Data: (CAT1) Reviewed 3 or more notes from different specialty or health system (each=1). (CAT1) Reviewed 3 or more labs/studies ordered by another provider not previously counted (each=1, panels count as 1). (CAT2) CXR reviewed & showed no acute cardiopulmonary process as interpreted by me. (CAT2) XR of tibia/fibular R reviewed & showed as noted above as interpreted by me. (LOW: 2x CAT1 or independent historian MOD: 3x CAT1 or 1x CAT3 EXTENSIVE: 3x CAT1 and 1x CAT3) Acute, acute on chronic, unstable/uncontrolled chronic problems/diagnoses: Right tibia nonunion Mild hyponatremia improving Type 2 diabetes mellitus with hyperglycemia Stable chronic problems affecting care, new non-acute diagnoses: Hyperlipidemia-continue Lipitor Hypothyroidism-continue Synthroid Obesity MAXIMO, noncompliant with CPAP Bipolar disorder PTSD. History of schizophrenia Bronchial asthma Left middle finger MCP joint septic arthritis Plan As a result of the above findings & factors, the following mgmt was pursued: -Ortho is primary, plan for right BKA with possible wound VAC application. Will follow along for medical management. --Seen and examined Vitals and meds reviewed Will put on sliding scale Will continue to follow - am labs, replace lytes prn - PT/OT/CM/SW - delirium precautions: increase activity and limit nighttime disturbances - DVT prophylaxis: encourage ambulation Complexity: Acute illness or injury posing a threat to life or body function (HIGH). Risk: Admission to hospital-level care was considered or occurred (HIGH). Advance Directive: Full Code Anticipated Discharge - Date - Per primary team - Location - SNF - Pending the following - above eval, clinical progress Total time spent (which include face to face and non face to face encounters) : 55 minutes Extended Emergency Contact Information Primary Emergency Contact: Jaci Leger Mobile Relation: Legal Guardian Secondary Emergency Contact: TungJeny Relation: Mother Yahaira Bone MD Division of Hospitalist Medicine [employer] Images from the original note were not included. PHYSICAL THERAPY [facility] Name/MRN: Talia Ruby ([id number]) Date: 12/03/2024 PT held this date. Plan is for OR today on 12/03. PT will re-attempt post op. Plan is for Rt BKA. Anselmo Golz, PT APS consult acknowledged. To OR 12/03/24. Formal consult to follow 12/04/24. Department of Orthopedic Surgery Progress Note SUBJECTIVE: Patient doing well, pain well controlled, NAEO. OBJECTIVE: General: alert and oriented to person, place and time, well-developed and well-nourished, in no acute distress, denies chest pain and shortness of breath VITALS: BP 114/68 (BP Location: Left arm, Patient Position: Lying) Pulse 70 Temp 36.1 C (97 F) (Temporal) Resp 20 SpO2 98% MSK exam: Right LE: Dressings C/D/I SILT: +Superficial Peroneal/Deep Peroneal/Tibial/Sural distributions; intact but diminished saphenous Motor +EHL/DF/PF Palpable dorsalis pedis/Posterior tibial pulse, <3s cap refill Labs: Type and Screen: Lab Results Component Value Date RH NEG 12/02/2024 INR: Lab Results Component Value Date INR 1.0 12/02/2024 CRP: Lab Results Component Value Date CRP 3.3 12/02/2024 ESR: Lab Results Component Value Date SEDRATE 5 12/02/2024 ASSESSMENT AND PLAN: This is a 44 y.o. 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 -Plan for OR tomorrow (12/03/2024) for right below the knee amputation with possible wound VAC application -Consented for above procedure -Medically optimized for procedure -Preop labs/workup complete -NPO -Hold anticoagulation -Medicine and APS consulted -sound effects manager consulted, patient resides at [facility] normal -PT/OT -Weight bearing: NWB RLE -Up with assist -Ice and elevate for pain -neuro/skin checks -Ortho primary. please page resident on-call with question/concerns. Elin Villela MD Orthopedic Surgery PGY-2 12/03/2024 at 6:04 AM documented in this encounter [facility] 12-06-2024 Nurse Note Report called to [facility]. glazing superintendent time 1500 [facility] 12-06-2024 Nurse Note Report called to [facility]. glazing superintendent time 1500 Report received from Kartik Royal RN. Introduced myself to patient, patient briefly opened eyes and nodded. Patient Laying in bed eyes closed, respirations even and unlabored. Bed locked and at lowest position, call light within reach. Report received from Erinn. Introduced myself to patient. No questions at this time. Patient bed low and locked, call light within reach. documented in this encounter [facility] 12-06-2024 Note Formatting of this n ote might be different from the original. MAR & Discharge med list transmitted to [facility] via [employer] per TCC request. [facility] 12-06-2024 Note Formatting of this n ote might be different from the original. MAR & Discharge med list transmitted to [facility] via [employer] per TCC request. [facility] 12-06-2024 Note Formatting of this n ote might be different from the original. Confirmed pickup time of 3 pm by [employer] at phone number . Location of facility drop off is [facility]. Facility notified via [employer] notified on secure chat. [facility] 12-06-2024 Note Formatting of this n ote might be different from the original. Confirmed pickup time of 3 pm by transport company Daniel Zuniga at phone number . Location of facility drop off is [facility]. Facility notified via [employer], [employer] notified on secure chat. [facility] 12-06-2024 Note Formatting of this n ote might be different from the original. Transport requested in [employer]. Awaiting time confirmation. [facility] 12-06-2024 Note Formatting of this n ote might be different from the original. Transport requested in [employer]. Awaiting time confirmation. [facility] 12-06-2024 Note Formatting of this n ote might be different from the original. [facility] and was told that patient does have a guardian and to contact the guardian for Letter of Guardianship. Call to guardian, who said she will email to me the Letter of Guardianship. 3pm, did not find letter of guardianship in email, left voicemail for guardian to email and repeated email address [facility] 12-06-2024 Note Formatting of this n ote might be different from the original. [facility] and was told that patient does have a guardian and to contact the guardian for Letter of Guardianship. Call to guardian, who said she will email to me the Letter of Guardianship. 3pm, did not find letter of guardianship in email, left voicemail for guardian to email and repeated email address [facility] 12-06-2024 Note Formatting of this n ote might be different from the original. Discharge order in [facility] for return to [facility] sent to [facility]- Please send the discharge med list to [facility] sent to [facility] to arrange transportation Time 3P and location [facility] Oxygen no bariatric wt 264 Any lines or drains [facility] cot If the patient is going by cot, Reason- Psychiatric patient Post op- unsteady gait- safety concern Transportation time confirmed - scheduled for 3p Patient, legal guardian called- bedside nurse,community advocate and facility notified- [facility] 12-06-2024 Note Formatting of this n ote might be different from the original. Discharge order in [facility] for return to [facility] sent to [facility]- Please send the discharge med list to [facility] sent to [facility] to arrange transportation Time 3P and location [facility] no bariatric wt 264 Any lines or drains [facility] cot If the patient is going by cot, Reason- Psychiatric patient Post op- unsteady gait- safety concern Transportation time confirmed - scheduled for 3p Patient, legal guardian called- bedside nurse,community advocate and facility notified- [facility] 12-06-2024 Note Formatting of this n ote might be different from the original. Care Management Progress Note call placed to Jaci venegas to discuss discharge plans- no ans msg left Return call from [facility] discharge plan is to return to [facility] notified and able to accept today PT eval IPR discussed with legal guardian and she feels its best for him to return to SNF [facility] 12-06-2024 Note Formatting of this n ote might be different from the original. Care Management Progress Note call placed to Jaci venegas to discuss discharge plans- no ans msg left Return call from [facility] discharge plan is to return to [facility] notified and able to accept today PT eval IPR discussed with legal guardian and she feels its best for him to return to SNF [facility] 12-06-2024 Note Care Management Prog ress Note call placed to Jaci venegas to discuss discharge plans- no ans msg left Return call from Jaci discharge plan is to return to [facility] notified and able to accept today PT ritu IPR discussed with legal guardian and she feels its best for him to return to SNF [facility] 12-06-2024 Note Hospitalist Progress Note 12/06/2024 Subjective: Admit Date: 12/02/2024 PCP: No primary care provider on file. Room#: [id number] A BRIEF HOSPITAL COURSE: Per prior notes; 44 y.o. male pmhx of obesity, bipolar disorder, MAXIMO noncompliant with CPAP, bronchial asthma, diet-controlled diabetes mellitus, hyperlipidemia, hypothyroidism, chronic smoking history, PTSD, left middle finger MCP joint septic arthritis with MSSA, insomnia presented to [facility] for elective right below the knee amputation which was performed on 12/03/2024. USACS consulted for medical management. Interval History: - No overnight issues. -Patient says he feels well he denies any chest pain shortness breath. No new complaints, pending disposition at this time. Adult diet Regular; 3 carb choices (45 gm/meal) 24HR INTAKE/OUTPUT: Intake/Output Summary (Last 24 hours) at 12/06/2024 0946 Last data filed at 12/06/2024 0545 Gross per 24 hour Intake 2265 ml Output 3150 ml Net -885 ml Past Medical History: Past Medical History: Diagnosis Date Asthma Bipolar disorder (HCC) Diabetes mellitus (HCC) ETOH abuse HTN (hypertension) Hyperlipidemia MAXIMO on CPAP PTSD (post-traumatic stress disorder) 2/2 witness suicide as a child T2DM (type 2 diabetes mellitus) ([facility]) Tobacco abuse LABS: CBC: Recent Labs 12/04/24 0039 12/05/24 0008 12/06/24 0028 WBC 10.4 7.8 7.2 RBC 4.07* 3.77* 4.08* HGB 12.0* 11.3* 12.0* HCT 34.6* 33.0* 35.5* MCV 85.0 87.5 87.0 RDW 12.5 12.7 12.9 PLT 190 141 165 BMP: Recent Labs 12/04/24 0039 12/05/24 0008 12/06/24 0028 NA 132* 140 138 K 4.3 3.9 4.0 CL 99 104 103 CO2 24 26 27 BUN 19 19 13 CREATININE 1.08 0.89 0.84 GLUCOSE 349* 229* 271* CALCIUM 8.9 8.1* 8.6 ANIONGAP 9 10 8 LIVER PROFILE:No results for input(s): "AST", "ALT", "BILITOT", "ALKPHOS", "PROT" in the last 72 hours. No lab exists for component: LABALBU PT/INR: No results for input(s): "PROTIME", "INR" in the last 72 hours. CARDIAC ENZYMES: No results for input(s): "TROPONINI" in the last 72 hours. Procalcitonin: No results found for: "PROCAL" COVID-19 PCR: No results for input(s): "COVID19" in the last 72 hours. Objective: Vitals: BP 126/77 Pulse 80 Temp 36.8 ?C (98.3 ?F) (Temporal) Resp 20 Wt 264 lb 8.8 oz (120 kg) SpO2 94% BMI 40.82 kg/m? Pulse Ox: SpO2 Av.7 % Min: 94 % Max: 98 % Supplemental O2: O2 Flow Rate (L/min): 2 L/min Physical Exam Constitutional: Appearance: Normal appearance. He is obese. He is not ill-appearing. HENT: Head: Normocephalic and atraumatic. Nose: Nose normal. Mouth/Throat: Mouth: Mucous membranes are moist. Eyes: Extraocular Movements: Extraocular movements intact. Pupils: Pupils are equal, round, and reactive to light. Cardiovascular: Rate and Rhythm: Normal rate and regular rhythm. Pulses: Normal pulses. Heart sounds: Normal heart sounds. Pulmonary: Effort: Pulmonary effort is normal. No respiratory distress. Breath sounds: Normal breath sounds. No wheezing or rhonchi. Abdominal: General: Abdomen is flat. Palpations: Abdomen is soft. Tenderness: There is no abdominal tenderness. Musculoskeletal: General: Deformity and signs of injury present. Normal range of motion. Cervical back: Normal range of motion and neck supple. Right lower leg: No edema. Left lower leg: No edema. Comments: Status post right lower extremity BKA Skin: General: Skin is warm and dry. Neurological: General: No focal deficit present. Mental Status: He is alert and oriented to person, place, and time. Motor: Weakness present. Medications: Scheduled PRN acetaminophen, 1,000 mg, Oral, TID atorvastatin, 20 mg, Oral, Nightly divalproex, 500 mg, Oral, BID enoxaparin, 40 mg, SubCUTAneous, q12h insulin glargine, 26 Units, SubCUTAneous, q AM insulin lispro, 0-12 Units, SubCUTAneous, TID WC insulin lispro, 10 Units, SubCUTAneous, TID WC levothyroxine, 50 mcg, Oral, qAM AC melatonin, 5 mg, Oral, Nightly methocarbamol, 1,000 mg, Oral, 3 times per day OLANZapine, 15 mg, Oral, BID sennosides, 2 tablet, Oral, Nightly Or Senna, 10 mL, Oral, Nightly sodium chloride 0.9%, 5-40 mL, IntraVENous, q12h PRN medications: dextrose, dextrose, glucagon (rDNA), glucose, HYDROmorphone OR HYDROmorphone, ibuprofen OR ibuprofen, ipratropium-albuterol, naloxone, nicotine polacrilex, ondansetron ODT OR ondansetron, oxyCODONE OR oxyCODONE, polyethylene glycol (PEG) 3350, sodium chloride, sodium chloride 0.9%, traZODone Continuous sodium chloride, 100 mL/hr, Last Rate: Stopped (12/06/24 0700) Assessment Acute, acute on chronic, unstable/uncontrolled chronic problems/diagnoses: 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 Mild hyponatremia improving Hyperglycemia and type II diabetic followed by endocrine Stable chronic problems affecting care, new non-acute diagnoses: Hyperlipidemia Hypothy (more content not included)... [facility] 12-06-2024 Plan of care note Problem: Pain - Adult Goal: Verbalizes/displays adequate comfort level or baseline comfort level Outcome: Progressing Flowsheets (Taken 12/06/2024 0931) Verbalizes/displays adequate comfort level or baseline comfort level: Encourage patient to monitor pain and request assistance Assess pain using appropriate pain scale Problem: Safety - Adult Goal: Free from fall injury Outcome: Progressing Flowsheets (Taken 12/04/20242011 by Bill Baker RN) Free from fall injury: Instruct family/caregiver on patient safety [facility] 12-06-2024 Note Formatting of this n ote might be different from the original. Referral placed to LTAC return to [facility] via [facility] per TCC request. Await review and response regarding ability to accept. TCC notified. [facility] 12-06-2024 Note Formatting of this n ote might be different from the original. Referral placed to LTAC return to [facility] via [facility] per TCC request. Await review and response regarding ability to accept. TCC notified. T [facility] 12-06-2024 Note Referral placed to L TAC return to [facility] via [facility] per TCC request. Await review and response regarding ability to accept. TCC notified. [facility] 12-06-2024 Note Patient Name: Talia Ruby Date of : 1980 Date: 12/06/24 Discharge Summary Admit date: 12/02/2024 Discharge date and time: 12/06/24, afternoon Admitting Physician: Patti Durant MD Admission Diagnoses: 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 Discharge Diagnoses: same Problem List: Principal Problem: 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 Body mass index is 40.82 kg/m?. Morbidly Obese Operative Procedures: 12/03/24: Right Below Knee Amputation Hospital Course: The patient was admitted for the above procedure. After undergoing the above procedure without complications, the patient recovered well in PACU. The patient progressed with physical therapy and met all goals prior to discharge. The patient was tolerating a diet and had their pain controlled prior to discharge. The patient was d/c on POD #3 in stable condition. Disposition: SNF Discharge Medications: Medication List START taking these medications acetaminophen 500 MG tablet Commonly known as: Tylenol Extra Strength Take 2 tablets (1,000 mg) by mouth every 6 hours as needed for mild pain (1-3) for up to 10 days. aspirin 81 MG EC tablet Take 1 tablet (81 mg) by mouth daily. docusate sodium 100 MG capsule Commonly known as: Colace Take 1 capsule (100 mg) by mouth 2 times daily for 10 days. ondansetron 4 MG tablet Commonly known as: Zofran Take 1 tablet (4 mg) by mouth every 8 hours as needed for nausea or vomiting for up to 7 days. oxyCODONE 5 MG immediate release tablet Commonly known as: Roxicodone Take 1 tablet (5 mg) by mouth every 6 hours as needed for severe pain (7-10) for up to 10 days. CHANGE how you take these medications sennosides 8.6 MG tablet Commonly known as: Senokot Take 1 tablet (8.6 mg) by mouth daily for 10 days. Take at minimum once per day to prevent constipation while taking narcotic pain medicine (such as oxycodone, percocet, norco, hydrocodone). What changed: when to take this additional instructions ASK your doctor about these medications atorvastatin 20 MG tablet Commonly known as: Lipitor divalproex 500 MG EC tablet Commonly known as: Depakote glimepiride 4 MG tablet Commonly known as: Amaryl glipiZIDE 10 MG tablet Commonly known as: Glucotrol ipratropium-albuterol 0.5-2.5 mg/3 mL nebulizer solution Commonly known as: Duo-Neb Take 3 mL by nebulization 3 times daily as needed for wheezing or shortness of breath. levothyroxine 50 MCG tablet Commonly known as: Synthroid, Levoxyl melatonin 5 MG tablet Take 1 tablet (5 mg) by mouth Nightly. OLANZapine 5 MG tablet Commonly known as: ZyPREXA Take 1 tablet (5 mg) by mouth every 6 hours as needed (agitation). polyethylene glycol (PEG) 3350 17 g packet Commonly known as: Miralax Take 17 g by mouth daily. traZODone 50 MG tablet Commonly known as: Desyrel Take 1 tablet (50 mg) by mouth Nightly as needed for sleep. Where to Get Your Medications These medications were sent to [facility] [address] [place], [place] [id number] Hours: Friday to Friday 10 am to 6 pm docusate sodium 100 MG capsule You can get these medications from any pharmacy Bring a paper prescription for each of these medications acetaminophen 500 MG tablet aspirin 81 MG EC tablet ondansetron 4 MG tablet oxyCODONE 5 MG immediate release tablet sennosides 8.6 MG tablet Patient Instructions: The patient will notify the office for any increased bleeding, drainage, or progressively worsening pain, or other concerning symptoms. They have been instructed to report to the emergency room immediately for any chest pain or shortness of breath. Activity Precautions: NWB on RLE. Work on obtaining range of motion as discussed in the discharge instructions. Patient was provided with appropriate DVT prophylactic medication as well as appropriate analgesia medication. Wound Care: -Continue wound vac 125mmHg continuous for 2 weeks post op Follow-up visit with Dr. Durant in 2 weeks post-op. Signed: Hitesh Rutledge PA-C 12/06/2024 8:29 AM [facility] 12-06-2024 Note [facility] PCU [address] [address] Dept: [phone] Loc: [phone] Orthopedic Progress Note Name: Talia Ruby Date:12/06/2024 Attending:Patti Durant MD Subjective No events o/n. Patient doing well. Pain well controlled. Asked about discharge to SNF, awaiting placement at this time. Objective Vitals: Vitals: 12/05/24 0809 12/05/24 0924 12/05/24 1009 12/05/24 2136 BP: 149/89 126/74 130/80 129/73 BP Location: Right arm Right arm Patient Position: Sitting Sitting Pulse: 59 68 67 72 Resp: 18 18 16 Temp: 36 ?C (96.8 ?F) (!) 35.9 ?C (96.6 ?F) (!) 35.5 ?C (95.9 ?F) 36.3 ?C (97.3 ?F) TempSrc: Temporal Temporal Temporal Temporal SpO2: 97% 98% 98% 95% Weight: Physical Exam: General: NAD RLE Dressing/Skin: Clean/Dry/Intact, W[place] holding suction SILT: intact to the stump Motor: intact quad Pulses: stump WWP LABS: Recent Labs 12/04/24 0039 12/05/24 0008 12/06/24 0028 WBC 10.4 7.8 7.2 HGB 12.0* 11.3* 12.0* HCT 34.6* 33.0* 35.5* PLT 190 141 165 Recent Labs 12/04/24 0039 12/05/24 0008 12/06/24 0028 NA 132* 140 138 K 4.3 3.9 4.0 CL 99 104 103 CO2 24 26 27 BUN 19 19 13 CREATININE 1.08 0.89 0.84 CALCIUM 8.9 8.1* 8.6 No results for input(s): "INR" in the last 72 hours. No results for input(s): "SEDRATE", "CRP" in the last 72 hours. No results for input(s): "HCG" in the last 72 hours. Assessment Talia is a 44 y.o.male s/p R BKA 12/03 Plan -Operative plans: No further plans for surgery -Weight bearing: RLE: NWB LLE: WBAT RUE: WBAT LUE: WBAT -Range of motion parameters: ROM as tolerated -Immobilization: No immobilization needed -Consults: Acute pain service consult for pain control recommendations -Antibiotics: 24 hours of post op antibiotics. -Dressings: Continue wound vac 125mmHg continous. Measure cannister output every shift. Prevena at Bedside -Other: None -Diet: no restrictions from ortho standpoint -Labs: No further labs needed from ortho standpoint. -PT/OT -PT recommended outpatient/post discharge?: Yes, for basic ADLs -Lovenox inpatient, ASA 81 BID x30 -Follow-up with Dr Durant in 2 weeks - Ortho primary, awaiting rehab Kael Hubbard MD Orthopaedic Surgery PGY4 12/06/2024 7:04 AM [facility] 12-06-2024 Note Problem: Pain - Adul t Goal: Verbalizes/displays adequate comfort level or baseline comfort level Outcome: Progressing Problem: Safety - Adult Goal: Free from fall injury Outcome: Progressing [facility] 12-06-2024 Plan of care note Problem: Pain - Adult Goal: Verbalizes/displays adequate comfort level or baseline comfort level Outcome: Progressing Problem: Safety - Adult Goal: Free from fall injury Outcome: Progressing [facility] 12-05-2024 Nurse Note Report received from Kartik Royal RN. Introduced myself to patient, patient briefly opened eyes and nodded. Patient Laying in bed eyes closed, respirations even and unlabored. Bed locked and at lowest position, call light within reach. [facility] 12-05-2024 Note Hospitalist Progress Note 12/05/2024 Subjective: Admit Date: 12/02/2024 PCP: No primary care provider on file. Room#: 8214/7333 A BRIEF HOSPITAL COURSE: Per prior notes; 44 y.o. male pmhx of obesity, bipolar disorder, MAXIMO noncompliant with CPAP, bronchial asthma, diet-controlled diabetes mellitus, hyperlipidemia, hypothyroidism, chronic smoking history, PTSD, left middle finger MCP joint septic arthritis with MSSA, insomnia presented to [facility] for elective right below the knee amputation which was performed on 12/03/2024. USACS consulted for medical management. Interval History: - No overnight issues. -Patient says he feels well he denies any chest pain shortness breath. No new complaints Adult diet Regular; 3 carb choices (45 gm/meal) 24HR INTAKE/OUTPUT: Intake/Output Summary (Last 24 hours) at 12/05/2024 0945 Last data filed at 12/05/2024 0602 Gross per 24 hour Intake 800 ml Output 2150 ml Net -1350 ml Past Medical History: Past Medical History: Diagnosis Date Asthma Bipolar disorder (HCC) Diabetes mellitus (HCC) ETOH abuse HTN (hypertension) Hyperlipidemia MAXIMO on CPAP PTSD (post-traumatic stress disorder) 2/2 witness suicide as a child T2DM (type 2 diabetes mellitus) (HCC) Tobacco abuse LABS: CBC: Recent Labs 12/03/24 0046 12/04/24 0039 12/05/24 0008 WBC 7.1 10.4 7.8 RBC 4.54 4.07* 3.77* HGB 13.3 12.0* 11.3* HCT 38.4* 34.6* 33.0* MCV 84.6 85.0 87.5 RDW 12.6 12.5 12.7 PLT 162 190 141 BMP: Recent Labs 12/03/24 0046 12/03/24 1814 12/04/24 0039 12/05/24 0008 NA 134* -- 132* 140 K 4.0 -- 4.3 3.9 CL 101 -- 99 104 CO2 27 -- 24 26 BUN 17 -- 19 19 CREATININE 0.91 -- 1.08 0.89 GLUCOSE 296* 477* 349* 229* CALCIUM 8.9 -- 8.9 8.1* ANIONGAP 6 -- 9 10 LIVER PROFILE:No results for input(s): "AST", "ALT", "BILITOT", "ALKPHOS", "PROT" in the last 72 hours. No lab exists for component: LABALBU PT/INR: Recent Labs 12/02/24 1459 PROTIME 11.3 INR 1.0 CARDIAC ENZYMES: No results for input(s): "TROPONINI" in the last 72 hours. Procalcitonin: No results found for: "PROCAL" COVID-19 PCR: No results for input(s): "COVID19" in the last 72 hours. Objective: Vitals: BP 126/74 Pulse 68 Temp (!) 35.9 ?C (96.6 ?F) (Temporal) Resp 18 Wt 264 lb 8.8 oz (120 kg) SpO2 98% BMI 40.82 kg/m? Pulse Ox: SpO2 Av % Min: 96 % Max: 98 % Supplemental O2: O2 Flow Rate (L/min): 2 L/min Physical Exam Constitutional: Appearance: Normal appearance. He is obese. He is not ill-appearing. HENT: Head: Normocephalic and atraumatic. Nose: Nose normal. Mouth/Throat: Mouth: Mucous membranes are moist. Eyes: Extraocular Movements: Extraocular movements intact. Pupils: Pupils are equal, round, and reactive to light. Cardiovascular: Rate and Rhythm: Normal rate and regular rhythm. Pulses: Normal pulses. Heart sounds: Normal heart sounds. Pulmonary: Effort: Pulmonary effort is normal. No respiratory distress. Breath sounds: Normal breath sounds. No wheezing or rhonchi. Abdominal: General: Abdomen is flat. Palpations: Abdomen is soft. Tenderness: There is no abdominal tenderness. Musculoskeletal: General: Deformity and signs of injury present. Normal range of motion. Cervical back: Normal range of motion and neck supple. Right lower leg: No edema. Left lower leg: No edema. Comments: Status post right lower extremity BKA Skin: General: Skin is warm and dry. Neurological: General: No focal deficit present. Mental Status: He is alert and oriented to person, place, and time. Motor: Weakness present. Medications: Scheduled PRN acetaminophen, 1,000 mg, Oral, TID atorvastatin, 20 mg, Oral, Nightly divalproex, 500 mg, Oral, BID enoxaparin, 40 mg, SubCUTAneous, q12h insulin glargine, 26 Units, SubCUTAneous, q AM insulin lispro, 0-12 Units, SubCUTAneous, TID WC insulin lispro, 10 Units, SubCUTAneous, TID WC levothyroxine, 50 mcg, Oral, qAM AC melatonin, 5 mg, Oral, Nightly methocarbamol, 1,000 mg, Oral, 3 times per day OLANZapine, 15 mg, Oral, BID sennosides, 2 tablet, Oral, Nightly Or Senna, 10 mL, Oral, Nightly sodium chloride 0.9%, 5-40 mL, IntraVENous, q12h PRN medications: dextrose, dextrose, glucagon (rDNA), glucose, HYDROmorphone OR HYDROmorphone, ibuprofen OR ibuprofen, ipratropium-albuterol, naloxone, nicotine polacrilex, ondansetron ODT OR ondansetron, oxyCODONE OR oxyCODONE, polyethylene glycol (PEG) 3350, sodium chloride, sodium chloride 0.9%, traZODone Continuous sodium chloride, 100 mL/hr, Last Rate: 100 mL/hr (12/05/24 0722) Assessment Acute, acute on chronic, unstable/uncontrolled chronic problems/diagnoses: 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 [facility] 12-05-2024 Note [facility] [facility] PCU [address] [facility] [address] Dept: [phone] Loc: [phone] Orthopedic Progress Note Name: Talia Ruby Date:12/05/2024 Attending:Jey David MD Subjective No events o/n. Patient doing well. Pain well controlled. Relatively flat affect. No new issues. Doing alright Objective Vitals: Vitals: 12/03/24200112/04/24 0746 12/04/24 16212/04/242011 BP: 128/85 125/66 111/69 BP Location: Left arm Left arm Right arm Patient Position: Sitting Sitting Lying Pulse: 96 84 77 73 Resp: 18 16 19 14 Temp: 36.4 ?C (97.6 ?F) 36.4 ?C (97.5 ?F) 36.4 ?C (97.5 ?F) TempSrc: Temporal Temporal Temporal SpO2: 95% 97% 97% 96% Weight: Physical Exam: General: NAD RLE Dressing/Skin: Clean/Dry/Intact, WV holding suction SILT: intact to the stump Motor: intact quad Pulses: stump WWP LABS: Recent Labs 12/03/24 0046 12/04/24 0039 12/05/24 0008 WBC 7.1 10.4 7.8 HGB 13.3 12.0* 11.3* HCT 38.4* 34.6* 33.0* PLT 162 190 141 Recent Labs 12/03/24 0046 12/04/24 0039 12/05/24 0008 NA 134* 132* 140 K 4.0 4.3 3.9 CL 101 99 104 CO2 27 24 26 BUN 17 19 19 CREATININE 0.91 1.08 0.89 CALCIUM 8.9 8.9 8.1* Recent Labs 12/02/24 1459 INR 1.0 Recent Labs 12/02/24 1459 12/02/24 1656 SEDRATE -- 5 CRP 3.3 -- No results for input(s): "HCG" in the last 72 hours. Assessment Talia is a 44 y.o.male s/p R BKA 12/03 Plan -Operative plans: No further plans for surgery -Weight bearing: RLE: NWB LLE: WBAT RUE: WBAT LUE: WBAT -Range of motion parameters: ROM as tolerated -Immobilization: No immobilization needed -Consults: Acute pain service consult for pain control recommendations -Antibiotics: 24 hours of post op antibiotics. -Dressings: Continue wound vac 125mmHg continous. Measure cannister output every shift. Prevena at Bedside -Other: None -Diet: no restrictions from ortho standpoint -Labs: No further labs needed from ortho standpoint. -PT/OT -PT recommended outpatient/post discharge?: Yes, for basic ADLs -Lovenox inpatient, ASA 81 BID x30 -Follow-up with Dr Durant in 2 weeks - Ortho primary, awaiting rehab Kael Hubbard MD Orthopaedic Surgery PGY4 12/05/2024 7:43 AM [facility] 2024 Plan of care note Problem: Pain - Adult Goal: Verbalizes/displays adequate comfort level or baseline comfort level Outcome: Progressing Problem: Safety - Adult Goal: Free from fall injury Outcome: Progressing Flowsheets (Taken 12/04/20242011) Free from fall injury: Instruct family/caregiver on patient safety [facility] 2024 Note Problem: Pain - Adul t Goal: Verbalizes/displays adequate comfort level or baseline comfort level Outcome: Progressing Problem: Safety - Adult Goal: Free from fall injury Outcome: Progressing [facility] 2024 Plan of care note Problem: Pain - Adult Goal: Verbalizes/displays adequate comfort level or baseline comfort level Outcome: Progressing Problem: Safety - Adult Goal: Free from fall injury Outcome: Progressing [facility] 2024 Note Hospitalist Progress Note 2024 Subjective: Admit Date: 12/02/2024 PCP: No primary care provider on file. Room#: H-2775/H-5209 A BRIEF HOSPITAL COURSE: Per prior notes; 44 y.o. male pmhx of obesity, bipolar disorder, MAXIMO noncompliant with CPAP, bronchial asthma, diet-controlled diabetes mellitus, hyperlipidemia, hypothyroidism, chronic smoking history, PTSD, left middle finger MCP joint septic arthritis with MSSA, insomnia presented to [facility] for elective right below the knee amputation scheduled for 12/03/2024. [facility] consulted for medical management. Ortho planning for right BKA. Preoperative hemoglobin 13.3 Interval History: No overnight issues. Patient was sleeping comfortably on evaluation but woke up. Only complaints during discussion are that he has not yet had a bowel movement since admission but otherwise pain is starting to increase. Case and plan discussed with patient and bedside nurse. All questions answered. Adult diet Regular; 3 carb choices (45 gm/meal) 24HR INTAKE/OUTPUT: Intake/Output Summary (Last 24 hours) at 2024 1335 Last data filed at 2024 0746 Gross per 24 hour Intake 1498.33 ml Output 1575 ml Net -76.67 ml Past Medical History: Past Medical History: Diagnosis Date Asthma Bipolar disorder (HCC) Diabetes mellitus (HCC) ETOH abuse HTN (hypertension) Hyperlipidemia MAXIMO on CPAP PTSD (post-traumatic stress disorder) 2/2 witness suicide as a child T2DM (type 2 diabetes mellitus) ([facility]) Tobacco abuse LABS: CBC: Recent Labs 12/02/24 1459 12/03/24 0046 12/04/24 0039 WBC 7.0 7.1 10.4 RBC 4.85 4.54 4.07* HGB 14.0 13.3 12.0* HCT 42.4 38.4* 34.6* MCV 87.4 84.6 85.0 RDW 12.7 12.6 12.5 PLT 159 162 190 BMP: Recent Labs 12/02/24 1459 12/03/24 0046 12/03/24 1814 12/04/24 0039 NA 133* 134* -- 132* K 4.1 4.0 -- 4.3 CL 101 101 -- 99 CO2 27 27 -- 24 BUN 16 17 -- 19 CREATININE 1.01 0.91 -- 1.08 GLUCOSE 277* 296* 477* 349* CALCIUM 9.3 8.9 -- 8.9 ANIONGAP 5 6 -- 9 LIVER PROFILE:No results for input(s): "AST", "ALT", "BILITOT", "ALKPHOS", "PROT" in the last 72 hours. No lab exists for component: LABALBU PT/INR: Recent Labs 12/02/24 1459 PROTIME 11.3 INR 1.0 CARDIAC ENZYMES: No results for input(s): "TROPONINI" in the last 72 hours. Procalcitonin: No results found for: "PROCAL" COVID-19 PCR: No results for input(s): "COVID19" in the last 72 hours. Objective: Vitals: BP 125/66 (BP Location: Left arm, Patient Position: Sitting) Pulse 84 Temp 36.4 ?C (97.5 ?F) (Temporal) Resp 16 Wt 264 lb 8.8 oz (120 kg) SpO2 97% BMI 40.82 kg/m? Pulse Ox: SpO2 Av.3 % Min: 95 % Max: 97 % Supplemental O2: O2 Flow Rate (L/min): 2 L/min Physical Exam Vitals reviewed. Constitutional: General: He is not in acute distress. Appearance: He is obese. He is not ill-appearing or toxic-appearing. Comments: Sleeping but woke up for encounter Cardiovascular: Rate and Rhythm: Normal rate and regular rhythm. Heart sounds: Normal heart sounds. Pulmonary: Effort: Pulmonary effort is normal. No respiratory distress. Breath sounds: Normal breath sounds. Abdominal: General: There is no distension. Palpations: Abdomen is soft. Tenderness: There is no abdominal tenderness. Comments: Rounded abdomen due to body habitus Musculoskeletal: Left lower leg: No edema. Comments: Right BKA, clean dry and intact dressing Skin: General: Skin is warm. Neurological: Mental Status: He is alert. Psychiatric: Mood and Affect: Mood normal. Behavior: Behavior normal. Medications: Scheduled PRN acetaminophen, 1,000 mg, Oral, TID atorvastatin, 20 mg, Oral, Nightly divalproex, 500 mg, Oral, BID enoxaparin, 40 mg, SubCUTAneous, q12h insulin glargine, 26 Units, SubCUTAneous, q AM insulin lispro, 0-12 Units, SubCUTAneous, TID WC insulin lispro, 10 Units, SubCUTAneous, TID WC levothyroxine, 50 mcg, Oral, qAM AC melatonin, 5 mg, Oral, Nightly methocarbamol, 1,000 mg, Oral, 3 times per day OLANZapine, 15 mg, Oral, BID sennosides, 2 tablet, Oral, Nightly Or Senna, 10 mL, Oral, Nightly sodium chloride 0.9%, 5-40 mL, IntraVENous, q12h PRN medications: dextrose, dextrose, glucagon (rDNA), glucose, HYDROmorphone OR HYDROmorphone, ibuprofen OR ibuprofen, ipratropium-albuterol, naloxone, nicotine polacrilex, ondansetron ODT OR ondansetron, oxyCODONE OR oxyCODONE, polyethylene glycol (PEG) 3350, sodium chloride, sodium chloride 0.9%, traZODone Continuous sodium chloride, 100 mL/hr, Last Rate: 100 mL/hr (12/04/24 1039) Assessment Data: (LOW: 2x CAT1 or independent historian MOD: 3x CAT1 or 1x CAT3 EXTENSIVE: 3x CAT1 and 1x CAT3) Acute, acute on chronic, unstable/uncontrolled chronic problems/diagnoses: 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 [facility] 2024 Note PHYSICAL THERAPY [facility] Initial Evaluation Name/MRN: Talia Ruby ([id number]) Evaluation Date: 2024 Date of : 1980 Admission Date: 12/02/2024 12:00 PM Age: 44 y.o. Room/Bed: H-6130/H-6130 A Discharge Recommendation: IP Rehab Equipment Needed: No Assessment IMPRESSION: 44 y.o. pt admitted to 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 They were SBA for bed mobility, Min A for transfers, and Min A for ambulation. He is from SNF where he was indep with mobility and only set up for ADLs. Would recommend IP rehab at discharge. Pt can tolerate 3 hr therapy/day. 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 Agreeable to PT session. Cleared by nursing Pain: Rogers-Robles Pain Ratin = Hurts even more Pain Location: RLE Past Medical History: Past Medical History: Diagnosis Date Asthma Bipolar disorder ([facility]) Diabetes mellitus ([facility]) ETOH abuse HTN (hypertension) Hyperlipidemia MAXIMO on CPAP PTSD (post-traumatic stress disorder) 2/2 witness suicide as a child T2DM (type 2 diabetes mellitus) ([facility]) Tobacco abuse Past Surgical History: Past Surgical History: Procedure Laterality Date FRACTURE SURGERY Right leg, s/p bone graft LEG AMPUTATION THROUGH LOWER TIBIA AND FIBULA Right 12/03/2024 RIGHT BELOW KNEE AMPUTATION - Right OTHER SURGICAL HISTORY 02/25/2024 IRRIGATION AND DEBRIDEMENT HAND AND LONG FINGER METACARPOPHALANGEAL JOINT - Left Admission Diagnosis: Patient Active Problem List Diagnosis Date Noted 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 12/02/2024 Chronic osteomyelitis ([facility]/HCC) ([facility]) 03/24/2024 Pyogenic arthritis of left hand, due to unspecified organism ([facility]) 02/25/2024 Pyogenic arthritis of left hand ([facility]) 02/25/2024 Bipolar 1 disorder ([facility]) 02/22/2017 Tobacco abuse 02/17/2017 Hyperlipidemia 02/17/2017 HTN (hypertension) 02/17/2017 ETOH abuse 02/17/2017 Acute encephalopathy 02/14/2017 T2DM (type 2 diabetes mellitus) ([facility]) 02/14/2017 Obstructive apnea 02/14/2017 Morbid obesity ([facility]) 02/14/2017 Controlled diabetes mellitus type II without complication ([facility]) 02/14/2017 Acute respiratory failure with hypoxia and hypercapnia ([facility]) 02/14/2017 Medical Precautions: No active isolations Proper PPE donned/doffed in accordance with facility standards. Fall Risk: San Fall Risk Score: 0 (Low Risk) Precautions/Restrictions: Right LE Weight Bearing: Weight Bearing As Tolerated Lines/Drains/Airways: PIV, wound vac Fall Precautions Education on BKA positioning to prevent contractures Family/Caregiver Present: none Overall Cognitive Status: WFL Overall Orientation Status: Oriented x4 Vision: No Visual Deficits Hearing: normal Social/Functional History Patient admitted from SNF. Assistive Equipment: crutches Prior Level of Function Prior Level of ADL Function: Independent Prior Level of Mobility: Independent; Device: Crutches Prior Level of Transfers: Independent Objective Lower Extremity Assessment AROM: WFL PROM: WFL Strength: WFL 3+/5 overall Sensation: WFL Balance: Not assessed this session Bed Mobility: Supine to sit: SBA HOB elevated Transfers Sit to stand: Min Assist Stand to sit: Contact Guard EOB x1, chair x1 Ambulation Ambulation 1 Assistive device(s) used: Crutches Assist level: Contact Guard, Min Assist Distance (ft): 10' + 15' Quality of gait: slow pat Outcome Measures AM-PAC How much HELP from another person do you currently need Turning from your back to your side while in a flat bed without using bedrails?: None Moving from lying on your back to sitting on the side of a flat bed without using bedrails?: A Little Moving to and from a bed to a chair (including a wheelchair)?: A Little Standing up from a chair using your arms (wheelchair or bedside chair)?: A Little Walking in a hospital room?: A Little Stair climbing assessed?: No AM-PAC Inpatient Mobility Raw Score (No Stairs) : 16 [id number] Score: Walked 25 ft or more (i.e. walked outside of room) Plan Pt would benefit from skilled acute PT services to address Strengthening, Gait Training, Balance Training, Functional Mobility Training, Endurance Training, Safety Education and Training, Stair Training, Equipment Evaluation/Education, Neuromuscular Re-Education Training, and Patient/Caregiver Training. Frequency: 5x/week for 4 weeks Barriers: Impaired balance, Lower extremity weakness, Decreased endurance, and Limited safety awareness Safety/Education Safety Safety Devices in place: call light within reach, left in chair, gait belt, patient at risk for falls, and nurse notified Restraints: No (more content not included)... [facility] 2024 Note OCCUPATIONAL THERAPY [facility] Initial Evaluation Name/MRN: Talia Ruby ([id number]) Evaluation Date: 2024 Date of : 1980 Admission Date: 12/02/2024 12:00 PM Age: 44 y.o. Room/Bed: [facility]30/[facility] A Discharge Recommendation: IP Rehab Equipment Needed: (TBD) Assessment IMPRESSION: 44 y/o male admitted for closed displaced oblique fx of R tibia s/p R BKA 12/03. Pt recently at SNF but reports indep with ADLs and mobility using crutches. Pt limited by pain and NWB RLE. Min assist functional transfers and mobility using crutches. Min assist for sitting/standing balance LB dressing. Recommend IP rehab to maximize potential at discharge and return to prior level of independence. Pt is motivated and can tolerate 3 hours of therapy per day. Admitting Diagnosis: closed displaced oblique fx of R tibia s/p R BKA 12/03 Performance Deficits /Impairments: Increased Pain, Decreased Functional Mobility, Decreased ADL status, Decreased Strength, Decreased Safety Awareness, Decreased Endurance, Decreased Balance, Decreased High Level IADLs, and Decreased Sensation Prognosis: Good Decision Making: Medium Complexity Subjective Pt sitting upright in chair, agreeable to OT. Pt reports R big toe "itches" but denies any other phantom sensations. Pain: RN managing pain. 0-10 pain scale: 5/10 Location: RLE Past Medical History: Past Medical History: Diagnosis Date Asthma Bipolar disorder ([facility]) Diabetes mellitus ([facility]) ETOH abuse HTN (hypertension) Hyperlipidemia MAXIMO on CPAP PTSD (post-traumatic stress disorder) 2/2 witness suicide as a child T2DM (type 2 diabetes mellitus) ([facility]) Tobacco abuse Past Surgical History: Past Surgical History: Procedure Laterality Date FRACTURE SURGERY Right leg, s/p bone graft LEG AMPUTATION THROUGH LOWER TIBIA AND FIBULA Right 12/03/2024 RIGHT BELOW KNEE AMPUTATION - Right OTHER SURGICAL HISTORY 02/25/2024 IRRIGATION AND DEBRIDEMENT HAND AND LONG FINGER METACARPOPHALANGEAL JOINT - Left Admission Diagnosis: Patient Active Problem List Diagnosis Date Noted 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 12/02/2024 Chronic osteomyelitis ([facility]/HCC) ([facility]) 03/24/2024 Pyogenic arthritis of left hand, due to unspecified organism ([facility]) 02/25/2024 Pyogenic arthritis of left hand ([facility]) 02/25/2024 Bipolar 1 disorder ([facility]) 02/22/2017 Tobacco abuse 02/17/2017 Hyperlipidemia 02/17/2017 HTN (hypertension) 02/17/2017 ETOH abuse 02/17/2017 Acute encephalopathy 02/14/2017 T2DM (type 2 diabetes mellitus) ([facility]) 02/14/2017 Obstructive apnea 02/14/2017 Morbid obesity ([facility]) 02/14/2017 Controlled diabetes mellitus type II without complication ([facility]) 02/14/2017 Acute respiratory failure with hypoxia and hypercapnia ([facility]) 02/14/2017 Medical Precautions: No active isolations Proper PPE donned/doffed in accordance with facility standards. Fall Risk: San Fall Risk Score: 0 (High Risk) Precautions/Restrictions: Right LE Weight Bearing: Non-Weight Bearing Lines/Drains/Airways: wound vac, PIV Fall Precautions Family/Caregiver Present: none Overall Cognitive Status: WFL Overall Orientation Status: Oriented x4 Social/Functional History Patient admitted from SNF. Assistive Equipment: crutches Prior Level of Function Prior Level of ADL Function: Independent Prior Level of Mobility: Independent; Device: Crutches Prior Level of Transfers: Independent Objective ADLs LE Dressing: Min Assist, sitting balance to don L sock Toileting: Min Assist, standing/sitting balance for rashida hygiene in bathroom Upper Extremity Assessment AROM: WFL PROM: WFL Strength: WFL pt reports increased discomfort in bilat shoulders from longterm crutch use Transfers/Mobility Sit to stand: Min Assist Stand to sit: Min Assist Bed to chair: Min Assist Toilet: Min Assist Functional mobility: Min Assist Good safety and problem solving during transfers and mobility. Min assist for balance. Device(s) used: Crutches Sensation: phantom limb sensations AM-PAC AM-PAC Inpatient Daily Activity Raw Score: 20 ADL Inpatient CMS G-Code Modifier: CJ Plan Pt would benefit from skilled acute OT services to address Strengthening, ROM, Gait Training, Balance Training, Self-Care/ADL Training, Functional Mobility Training, Endurance Training, Safety Education and Training, Equipment Evaluation/Education, Neuromuscular Re-Education Training, Home Management Training, and Patient/Caregiver Training. Frequency: 4x/week for 4 weeks Barriers: Pain, Impaired balance, Lower extremity weakness, Decreased endurance, and New weightbearing/ROM restrictions Safety/Education Safety Safety Devices in place: All fall risk precautions in place, call light within reach, left in chair, gait belt, patient at risk for falls, nurse notified, and no alarms engaged upon entry Restraints: No Education Education Given To: patient Edu (more content not included)... [facility] 2024 Note [facility] PCU [address] [address] Dept: [phone] Loc: [phone] Orthopedic Progress Note Name: Talia Ruby Date:2024 Attending:Patti Durant MD Subjective No events o/n. Patient doing well. Pain well controlled. No issues with wound vac. Doing alright overall. Objective Vitals: Vitals: 12/03/24 1218 12/03/24 1758 12/03/24200112/04/24 0746 BP: 124/73 108/76 128/85 125/66 BP Location: Left arm Left arm Patient Position: Sitting Sitting Pulse: 71 95 96 84 Resp: 15 18 18 16 Temp: 36.2 ?C (97.2 ?F) 36.3 ?C (97.4 ?F) 36.4 ?C (97.6 ?F) 36.4 ?C (97.5 ?F) TempSrc: Temporal Temporal Temporal Temporal SpO2: 97% 97% 95% 97% Weight: Physical Exam: General: NAD RLE Dressing/Skin: Clean/Dry/Intact, WV holding suction SILT: intact to the stump Motor: intact quad Pulses: stump WWP LABS: Recent Labs 12/02/24 1459 12/03/24 0046 12/04/24 0039 WBC 7.0 7.1 10.4 HGB 14.0 13.3 12.0* HCT 42.4 38.4* 34.6* PLT 159 162 190 Recent Labs 12/02/24 1459 12/03/24 0046 12/04/24 0039 NA 133* 134* 132* K 4.1 4.0 4.3 CL 101 101 99 CO2 27 27 24 BUN 16 17 19 CREATININE 1.01 0.91 1.08 CALCIUM 9.3 8.9 8.9 Recent Labs 12/02/24 1459 INR 1.0 Recent Labs 12/02/24 1459 12/02/24 1656 SEDRATE -- 5 CRP 3.3 -- No results for input(s): "HCG" in the last 72 hours. Assessment Talia is a 44 y.o.male s/p R BKA 12/03 Plan -Operative plans: No further plans for surgery -Weight bearing: RLE: NWB LLE: WBAT RUE: WBAT LUE: WBAT -Range of motion parameters: ROM as tolerated -Immobilization: No immobilization needed -Consults: Acute pain service consult for pain control recommendations -Antibiotics: 24 hours of post op antibiotics. -Dressings: Continue wound vac 125mmHg continous. Measure cannister output every shift. Prevena at Bedside -Other: None -Diet: no restrictions from ortho standpoint -Labs: No further labs needed from ortho standpoint. -PT/OT -PT recommended outpatient/post discharge?: Yes, for basic ADLs -Lovenox inpatient, ASA 81 BID x30 -Follow-up with Dr Duarnt in 2 weeks -Ortho to follow. Kael Hubbard MD Orthopaedic Surgery PGY4 2024 8:39 AM [facility] 2024 Consult note Associated Order (s): IP CONSULT TO ENDOCRINOLOGY Department of Internal Medicine Division of Endocrinology, Diabetes, & Metabolism Endocrinology Note Patient Name: Talia Ruby : 1980 AGE: 44 y.o. Room[facility]: [facility] A Admission Date: 12/02/2024 Visit Date: 2024 Reason for Endocrine Consult: uncontrolled DM Provider/Team Requesting Consult: Internal Medicine PCP: No primary care provider on file. Outpt Family Worker: No ASSESSMENT: Type 2 DM, uncontrolled Hyperglycemia secondary to corticosteroids Hypothyroidism S/p R BKA obesity PLAN: Will use basal bolus insulin while he is here Start Lantus 26 units qAM Humalog 10 units AC with med dose correction scale AC Update HbA1c Add CHO modifier to diet ICU goal <180 GMF goal <150 POCT BG ACHS Hypoglycemia management per protocol Carb controlled diet Continue LT4 home dose 50 mcg/day ANTICIPATED ENDOCRINE HOME GOING RECOMMENDATIONS: Optimized for Discharge from Endocrine standpoint: No Home Going Endocrine Rx Recommendations-- Recommend do go home on Lantus/Humalog. Discontinue glipizide. As outpatient can add metformin, GLP-1 agonist if no contraindications. Outpt Follow Up-- Needs to establish care with PCP SUBJECTIVE/HPI: CHIEF COMPLAINT: patient admitted for R BKA No chief complaint on file. 44/M with background medical history noted below which includes Type 2 DM, obesity, , hypothyroidism, asthma, HTN, hyperlipidemia, MAXIMO, PTSD-admitted for elective R BKA. He is a resident of [facility]. He has had multiple surgeries on his R LE- with fractures to his right tibia and fibula-eventually with varus deformity. We are consulted for uncontrolled DM. He has had type 2 DM ~6-8 years. Managed by the physician at his facility. He reports being on a basal insulin but does not recall the name/dose. No recent [id number] available is from 01/2024, 6.3%. Denies any known history of retinopathy, hx of photocoagulation, symptoms of peripheral neuropathy. No known CAD, PVD, CVA. Perioperatively, patient was also given dexamethasone 4 mg IV. Was patient's birthday yesterday-had cake also and no CHO restriction- POC glucose noted below >450-confirmatory lab glucose was 477 at 6pm. He received a total of 23 units of Humalog yesterday. BMP glucose at midnight 349, CO2 24, AG 9. No complaints currently-eating breakfast. Type of DM: Type 2 DM Onset of DM: ~2018 Home DM Medication Regimen: unrecalled basal insulin only DM control (last A1c/glucose data): 8% this admission -prior to this HbA1c 6.3% from 01/2024 Lab Results Component Value Date HGBA1C 8.0 (H) 2024 Glucose Date/Time Value Ref Range Status 12/03/2024 08:00 PM >450 (H) 70 - 100 mg/dL Final Comment: Confirmation Drawn; 12/03/2024 05:57 PM >450 (H) 70 - 100 mg/dL Final Comment: Repeated Test; 12/03/2024 05:55 PM >450 (H) 70 - 100 mg/dL Final Comment: Caregiver Notified; 12/03/2024 01:06 PM 309 (H) 70 - 100 mg/dL Final 12/03/2024 10:53 AM 246 (H) 70 - 100 mg/dL Final 12/03/2024 08:10 AM 226 (H) 70 - 100 mg/dL Final Review of Systems ROS negative except for those mentioned in HPI. OBJECTIVE: Vitals: 12/03/24 1145 12/03/24 1218 12/03/24 1758 12/03/242001 BP: 135/69 124/73 108/76 128/85 BP Location: Left arm Patient Position: Sitting Pulse: 68 71 95 96 Resp: 15 18 18 Temp: 36.2 C (97.2 F) 36.3 C (97.4 F) 36.4 C (97.6 F) TempSrc: Temporal Temporal Temporal SpO2: 97% 97% 97% 95% Weight: Physical Exam Constitutional: Appearance: Normal appearance. He is obese. HENT: Head: Atraumatic. Eyes: Conjunctiva/sclera: Conjunctivae normal. Cardiovascular: Rate and Rhythm: Normal rate and regular rhythm. Pulmonary: Effort: Pulmonary effort is normal. Breath sounds: Normal breath sounds. Abdominal: General: There is no distension. Palpations: Abdomen is soft. Tenderness: There is no abdominal tenderness. There is no guarding. Musculoskeletal: Cervical back: Neck supple. Left lower leg: No edema. Comments: R LE with dressing, recent BKA noted Neurological: General: No focal deficit present. Mental Status: He is alert and oriented to person, place, and time. Psychiatric: Mood and Affect: Mood normal. Behavior: Behavior normal. Judgment: Judgment normal. 24 hour intake/output: Intake/Output Summary (Last 24 hours) at 2024 0724 Last data filed at 12/03/20242001 Gross per 24 hour Intake 710 ml Output 1150 ml Net -440 ml Diet: Adult diet Regular; 3 carb choices (45 gm/meal) Medications (as per EMR): HomeMeds: Current Outpatient Medications Medication Instructions acetaminophen (TYLENOL EXTRA STRENGTH) 1,000 mg, Oral, Every 6 hours PRN aspirin 81 mg, Oral, Daily atorvastatin (LIPITOR) 20 mg, Nightly divalproex (DEPAKOTE) 500 mg, 2 times daily glimepiride (AMARYL) 4 mg, Daily with breakfast glipiZIDE (GLUCOTROL) 10 mg, 2 times daily before meals ipratropium-albuterol (Duo-Neb) 0.5-2.5 mg/3 mL nebulizer solution 3 mL, Nebulization, 3 times daily PRN levothyroxine (SYNTHROID, LEVOXYL) 50 mcg, Daily before breakfast melatonin 5 mg, Oral, Nightly OLANZapine (ZYPREXA) 5 mg, Oral, Every 6 hours PRN ondansetron (ZOFRAN) 4 mg, Oral, Every 8 hours PRN oxyCODONE (ROXICODONE) 5 mg, Oral, Every 6 hours PRN polyethylene glycol (PEG) 3350 (MIRALAX) 17 g, Oral, Daily sennosides (SENOKOT) 8.6 mg, Oral, 2 times daily sennosides (SENOKOT) 8.6 mg, Oral, Daily, Take at minimum once per day to prevent constipation while taking narcotic pain medicine (such as oxycodone, percocet, norco, hydrocodone). traZODone (DESYREL) 50 mg, Oral, Nightly PRN Scheduled Meds:acetaminophen, 1,000 mg, Oral, TID atorvastatin, 20 mg, Oral, Nightly divalproex, 500 mg, Oral, BID enoxaparin, 40 mg, SubCUTAneous, q12h insulin glargine, 26 Units, SubCUTAneous, q AM insulin lispro, 0-12 Units, SubCUTAneous, TID WC insulin lispro, 10 Units, SubCUTAneous, TID WC levothyroxine, 50 mcg, Oral, qAM AC melatonin, 5 mg, Oral, Nightly OLANZapine, 15 mg, Oral, BID sennosides, 2 tablet, Oral, Nightly Or Senna, 10 mL, Oral, Nightly sodium chloride 0.9%, 5-40 mL, IntraVENous, q12h Continuous Infusions:sodium chloride, 100 mL/hr, Last Rate: 100 mL/hr (12/04/24 0037) PRN Meds:PRN medications: dextrose, dextrose, glucagon (rDNA), glucose, HYDROmorphone OR HYDROmorphone, ibuprofen OR ibuprofen, ipratropium-albuterol, methocarbamol, naloxone, nicotine polacrilex, ondansetron ODT OR ondansetron, oxyCODONE OR oxyCODONE, polyethylene glycol (PEG) 3350, sodium chloride, sodium chloride 0.9%, traZODone Diagnostic Workup: I reviewed pertinent Laboratory results, Radiographic results, and Other Clinical Notes at the time of today's encounter. Labs: No components found for: "LABA1C" No components found for: "EAG" Lab Results Component Value Date NA 132 (L) 2024 K 4.3 2024 CL 99 2024 CO2 24 2024 BUN 19 2024 CREATININE 1.08 2024 GLUCOSE 349 (H) 2024 CALCIUM 8.9 2024 No results found for: "CHLPL", CHOL No results found for: "TRIG" No results found for: "HDL" No results found for: "LDLCALC" No results found for: "VLDL" No results found for: CHOLHDLRATIO No results found for: "JTAM75AFO" No results found for: "TSH", "Y5NFXAH", "U4OGZTB", "THYROIDAB" Radiology reportsas per the Radiologist Radiology: POCT glucose meter Result Date: 12/03/2024 Performed by: [facility], [address] [place] [id number] CLIA ID: [id number] POCT glucose meter Result Date: 12/03/2024 Performed by: [facility], [address] [place] [address] CLIA ID: [id number] POCT glucose meter Result Date: 12/03/2024 Performed by: [facility], [address] [place] [address] CLIA ID: [id number] POCT glucose meter Result Date: 12/03/2024 Performed by: [facility], [address] [place] [address] CLIA ID: [id number] POCT glucose meter Result Date: 12/03/2024 Performed by: [facility], [address] [place] [address] CLIA ID: [id number] POCT glucose meter Result Date: 12/03/2024 Performed by: [facility], [address] [place] [address] CLIA ID: [id number] POCT glucose meter Result Date: 12/02/2024 Performed by: [facility], [address] [place] [address] CLIA ID: [id number] Vascular US lower extremity arterial PVR Result Date: 12/02/2024 Right side findings: Resting NEYDA is 1.07. This is within the normal range. Left side findings: Resting NEYDA is 1.03. This is within the normal range. POCT glucose meter Result Date: 12/02/2024 Performed by: [facility], [address] [place] [address] CLIA ID: [id number] ECG 12 lead Sinus rhythm Low voltage, precordial leads Abnormal lateral Q waves Minimal ST elevation, inferior leads XR tibia fibula 2 views right Result Date: 12/02/2024 Patient Name: TALIA RUBY : 1980 Exam Date/Time: 12/02/2024 15:08 Procedure: XR TIBIA FIBULA 2 VIEWS RIGHT Ordering Provider: RUTLEDGE EMILY Reason For Exam: SURGERY Right tib-fib two views HISTORY: Surgery COMPARISON: 11/25/2024 Again seen are fractures of the shafts of the tibia and fibula. The fibular fracture appears mostly healed. There is nonunion, angulation, and nonunion of the tibial fracture. Report Dictated on Electronically Signed By: Errol Franks MD Electronically Signed Date/Time: 12/02/2024 3:15 PM EST XR chest 1 view Result Date: 12/02/2024 Patient Name: TALIA RUBY : 1980 Exam Date/Time: 12/02/2024 15:08 Procedure: XR CHEST 1 VIEW Ordering Provider: RUTLEDGE EMILY Reason For Exam: SURGERY Chest one view History: Short of breath The heart, mediastinum, pulmonary vasculature, lungs and pleural spaces are normal. Normal examination. Report Dictated on Electronically Signed By: Errol Franks MD Electronically Signed Date/Time: 12/02/2024 3:14 PM EST History/Other: Past Medical History: Past Medical History: Diagnosis Date Asthma Bipolar disorder (HCC) Diabetes mellitus (HCC) ETOH abuse HTN (hypertension) Hyperlipidemia MAXIMO on CPAP PTSD (post-traumatic stress disorder) 2/2 witness suicide as a child T2DM (type 2 diabetes mellitus) (HCC) Tobacco abuse Past Surgical History: Past Surgical History: Procedure Laterality Date FRACTURE SURGERY Right leg, s/p bone graft LEG AMPUTATION THROUGH LOWER TIBIA AND FIBULA Right 12/03/2024 RIGHT BELOW KNEE AMPUTATION - Right OTHER SURGICAL HISTORY 02/25/2024 IRRIGATION AND DEBRIDEMENT HAND AND LONG FINGER METACARPOPHALANGEAL JOINT - Left Allergy(ies): Allergies Allergen Reactions Haldol [Haloperidol] Metformin Risperdal [Risperidone] Family History: Family History Problem Relation Name Age of Onset Bipolar disorder Other Social History: Social History Tobacco Use Smoking status: Every Day Substance Use Topics Alcohol use: Yes Drug use: Yes Types: Marijuana Portions of the information within this encounter were entered using an electronic dictation system. Best attempts were made to edit/proofread the information prior to note completion. Despite the review of information, some errors may remain. If there are questions related to the information contained within the note please contact the signing physician directly. I spent 60 minutes with the pt which involved coordination of care, medical evaluation, review of records, and/or counseling of the pt regarding his/her condition/disease state/prognosis on the date of this note. [facility] 2024 Consult note Associated Order (s): IP CONSULT TO ENDOCRINOLOGY Department of Internal Medicine Division of Endocrinology, Diabetes, & Metabolism Endocrinology Note Patient Name: Talia Ruby : 1980 AGE: 44 y.o. Room[facility]Bed: [facility] A Admission Date: 12/02/2024 Visit Date: 2024 Reason for Endocrine Consult: uncontrolled DM Provider/Team Requesting Consult: Internal Medicine PCP: No primary care provider on file. Outpt Family Worker: No ASSESSMENT: Type 2 DM, uncontrolled Hyperglycemia secondary to corticosteroids Hypothyroidism S/p R BKA obesity PLAN: Will use basal bolus insulin while he is here Start Lantus 26 units qAM Humalog 10 units AC with med dose correction scale AC Update HbA1c Add CHO modifier to diet ICU goal <180 GMF goal <150 POCT BG ACHS Hypoglycemia management per protocol Carb controlled diet Continue LT4 home dose 50 mcg/day ANTICIPATED ENDOCRINE HOME GOING RECOMMENDATIONS: Optimized for Discharge from Endocrine standpoint: No Home Going Endocrine Rx Recommendations-- Recommend do go home on Lantus/Humalog. Discontinue glipizide. As outpatient can add metformin, GLP-1 agonist if no contraindications. Outpt Follow Up-- Needs to establish care with PCP SUBJECTIVE/HPI: CHIEF COMPLAINT: patient admitted for R BKA No chief complaint on file. 44/M with background medical history noted below which includes Type 2 DM, obesity, , hypothyroidism, asthma, HTN, hyperlipidemia, MAXIMO, PTSD-admitted for elective R BKA. He is a resident of [facility]. He has had multiple surgeries on his R LE- with fractures to his right tibia and fibula-eventually with varus deformity. We are consulted for uncontrolled DM. He has had type 2 DM ~6-8 years. Managed by the physician at his facility. He reports being on a basal insulin but does not recall the name/dose. No recent LpD8l-acfo available is from 01/2024, 6.3%. Denies any known history of retinopathy, hx of photocoagulation, symptoms of peripheral neuropathy. No known CAD, PVD, CVA. Perioperatively, patient was also given dexamethasone 4 mg IV. Was patient's birthday yesterday-had cake also and no CHO restriction- POC glucose noted below >450-confirmatory lab glucose was 477 at 6pm. He received a total of 23 units of Humalog yesterday. BMP glucose at midnight 349, CO2 24, AG 9. No complaints currently-eating breakfast. Type of DM: Type 2 DM Onset of DM: ~2018 Home DM Medication Regimen: unrecalled basal insulin only DM control (last A1c/glucose data): 8% this admission -prior to this HbA1c 6.3% from 01/2024 Lab Results Component Value Date HGBA1C 8.0 (H) 2024 Glucose Date/Time Value Ref Range Status 12/03/2024 08:00 PM >450 (H) 70 - 100 mg/dL Final Comment: Confirmation Drawn; 12/03/2024 05:57 PM >450 (H) 70 - 100 mg/dL Final Comment: Repeated Test; 12/03/2024 05:55 PM >450 (H) 70 - 100 mg/dL Final Comment: Caregiver Notified; 12/03/2024 01:06 PM 309 (H) 70 - 100 mg/dL Final 12/03/2024 10:53 AM 246 (H) 70 - 100 mg/dL Final 12/03/2024 08:10 AM 226 (H) 70 - 100 mg/dL Final Review of Systems ROS negative except for those mentioned in HPI. OBJECTIVE: Vitals: 12/03/24 1145 12/03/24 1218 12/03/24 1758 12/03/242001 BP: 135/69 124/73 108/76 128/85 BP Location: Left arm Patient Position: Sitting Pulse: 68 71 95 96 Resp: 15 18 18 Temp: 36.2 C (97.2 F) 36.3 C (97.4 F) 36.4 C (97.6 F) TempSrc: Temporal Temporal Temporal SpO2: 97% 97% 97% 95% Weight: Physical Exam Constitutional: Appearance: Normal appearance. He is obese. HENT: Head: Atraumatic. Eyes: Conjunctiva/sclera: Conjunctivae normal. Cardiovascular: Rate and Rhythm: Normal rate and regular rhythm. Pulmonary: Effort: Pulmonary effort is normal. Breath sounds: Normal breath sounds. Abdominal: General: There is no distension. Palpations: Abdomen is soft. Tenderness: There is no abdominal tenderness. There is no guarding. Musculoskeletal: Cervical back: Neck supple. Left lower leg: No edema. Comments: R LE with dressing, recent BKA noted Neurological: General: No focal deficit present. Mental Status: He is alert and oriented to person, place, and time. Psychiatric: Mood and Affect: Mood normal. Behavior: Behavior normal. Judgment: Judgment normal. 24 hour intake/output: Intake/Output Summary (Last 24 hours) at 2024 0724 Last data filed at 12/03/20242001 Gross per 24 hour Intake 710 ml Output 1150 ml Net -440 ml Diet: Adult diet Regular; 3 carb choices (45 gm/meal) Medications (as per EMR): HomeMeds: Current Outpatient Medications Medication Instructions acetaminophen (TYLENOL EXTRA STRENGTH) 1,000 mg, Oral, Every 6 hours PRN aspirin 81 mg, Oral, Daily atorvastatin (LIPITOR) 20 mg, Nightly divalproex (DEPAKOTE) 500 mg, 2 times daily glimepiride (AMARYL) 4 mg, Daily with breakfast glipiZIDE (GLUCOTROL) 10 mg, 2 times daily before meals ipratropium-albuterol (Duo-Neb) 0.5-2.5 mg/3 mL nebulizer solution 3 mL, Nebulization, 3 times daily PRN levothyroxine (SYNTHROID, LEVOXYL) 50 mcg, Daily before breakfast melatonin 5 mg, Oral, Nightly OLANZapine (ZYPREXA) 5 mg, Oral, Every 6 hours PRN ondansetron (ZOFRAN) 4 mg, Oral, Every 8 hours PRN oxyCODONE (ROXICODONE) 5 mg, Oral, Every 6 hours PRN polyethylene glycol (PEG) 3350 (MIRALAX) 17 g, Oral, Daily sennosides (SENOKOT) 8.6 mg, Oral, 2 times daily sennosides (SENOKOT) 8.6 mg, Oral, Daily, Take at minimum once per day to prevent constipation while taking narcotic pain medicine (such as oxycodone, percocet, norco, hydrocodone). traZODone (DESYREL) 50 mg, Oral, Nightly PRN Scheduled Meds:acetaminophen, 1,000 mg, Oral, TID atorvastatin, 20 mg, Oral, Nightly divalproex, 500 mg, Oral, BID enoxaparin, 40 mg, SubCUTAneous, q12h insulin glargine, 26 Units, SubCUTAneous, q AM insulin lispro, 0-12 Units, SubCUTAneous, TID WC insulin lispro, 10 Units, SubCUTAneous, TID WC levothyroxine, 50 mcg, Oral, qAM AC melatonin, 5 mg, Oral, Nightly OLANZapine, 15 mg, Oral, BID sennosides, 2 tablet, Oral, Nightly Or Senna, 10 mL, Oral, Nightly sodium chloride 0.9%, 5-40 mL, IntraVENous, q12h Continuous Infusions:sodium chloride, 100 mL/hr, Last Rate: 100 mL/hr (12/04/24 0037) PRN Meds:PRN medications: dextrose, dextrose, glucagon (rDNA), glucose, HYDROmorphone OR HYDROmorphone, ibuprofen OR ibuprofen, ipratropium-albuterol, methocarbamol, naloxone, nicotine polacrilex, ondansetron ODT OR ondansetron, oxyCODONE OR oxyCODONE, polyethylene glycol (PEG) 3350, sodium chloride, sodium chloride 0.9%, traZODone Diagnostic Workup: I reviewed pertinent Laboratory results, Radiographic results, and Other Clinical Notes at the time of today's encounter. Labs: No components found for: "LABA1C" No components found for: "EAG" Lab Results Component Value Date NA 132 (L) 2024 K 4.3 2024 CL 99 2024 CO2 24 2024 BUN 19 2024 CREATININE 1.08 2024 GLUCOSE 349 (H) 2024 CALCIUM 8.9 2024 No results found for: "CHLPL", CHOL No results found for: "TRIG" No results found for: "HDL" No results found for: "LDLCALC" No results found for: "VLDL" No results found for: CHOLHDLRATIO No results found for: "WISI97WBX" No results found for: "TSH", "Z9BEDLR", "R8EYKYO", "THYROIDAB" Radiology reportsas per the Radiologist Radiology: POCT glucose meter Result Date: 12/03/2024 Performed by: [facility], [address] [place] [address] CLIA ID: [id number] POCT glucose meter Result Date: 12/03/2024 Performed by: [facility], [address] [place] [address] CLIA ID: [id number] POCT glucose meter Result Date: 12/03/2024 Performed by: [facility], [address] [place] [address] CLIA ID: [id number] POCT glucose meter Result Date: 12/03/2024 Performed by: [facility], [address] [place] [address] CLIA ID: [id number] POCT glucose meter Result Date: 12/03/2024 [facility], [address] [place] [address] CLIA ID: [id number] POCT glucose meter Result Date: 12/03/2024 Performed by: [facility], [address] [place] [address] CLIA ID: [id number] POCT glucose meter Result Date: 12/02/2024 [facility]: [facility], [address] [place] [address] CLIA ID: [id number] Vascular US lower extremity arterial PVR Result Date: 12/02/2024 Right side findings: Resting NEYDA is 1.07. This is within the normal range. Left side findings: Resting NEYDA is 1.03. This is within the normal range. POCT glucose meter Result Date: 12/02/2024 [facility]: [facility], [address] [place] [address] CLIA ID: [id number] ECG 12 lead Sinus rhythm Low voltage, precordial leads Abnormal lateral Q waves Minimal ST elevation, inferior leads XR tibia fibula 2 views right Result Date: 12/02/2024 Patient Name: TALIA RUBY : 1980 Exam Date/Time: 12/02/2024 15:08 Procedure: XR TIBIA FIBULA 2 VIEWS RIGHT Ordering Provider: RUTLEDGE EMILY Reason For Exam: SURGERY Right tib-fib two views HISTORY: Surgery COMPARISON: 11/25/2024 Again seen are fractures of the shafts of the tibia and fibula. The fibular fracture appears mostly healed. There is nonunion, angulation, and nonunion of the tibial fracture. Report Dictated on Electronically Signed By: Errol Franks MD Electronically Signed Date/Time: 12/02/2024 3:15 PM EST XR chest 1 view Result Date: 12/02/2024 Patient Name: TALIA RUBY : 1980 Exam Date/Time: 12/02/2024 15:08 Procedure: XR CHEST 1 VIEW Ordering Provider: RUTLEDGE EMILY Reason For Exam: SURGERY Chest one view History: Short of breath The heart, mediastinum, pulmonary vasculature, lungs and pleural spaces are normal. Normal examination. Report Dictated on Electronically Signed By: Errol Franks MD Electronically Signed Date/Time: 12/02/2024 3:14 PM EST History/Other: Past Medical History: Past Medical History: Diagnosis Date Asthma Bipolar disorder (HCC) Diabetes mellitus (HCC) ETOH abuse HTN (hypertension) Hyperlipidemia MAXIMO on CPAP PTSD (post-traumatic stress disorder) 2/2 witness suicide as a child T2DM (type 2 diabetes mellitus) (HCC) Tobacco abuse Past Surgical History: Past Surgical History: Procedure Laterality Date FRACTURE SURGERY Right leg, s/p bone graft LEG AMPUTATION THROUGH LOWER TIBIA AND FIBULA Right 12/03/2024 RIGHT BELOW KNEE AMPUTATION - Right OTHER SURGICAL HISTORY 02/25/2024 IRRIGATION AND DEBRIDEMENT HAND AND LONG FINGER METACARPOPHALANGEAL JOINT - Left Allergy(ies): Allergies Allergen Reactions Haldol [Haloperidol] Metformin Risperdal [Risperidone] Family History: Family History Problem Relation Name Age of Onset Bipolar disorder Other Social History: Social History Tobacco Use Smoking status: Every Day Substance Use Topics Alcohol use: Yes Drug use: Yes Types: Marijuana Portions of the information within this encounter were entered using an electronic dictation system. Best attempts were made to edit/proofread the information prior to note completion. Despite the review of information, some errors may remain. If there are questions related to the information contained within the note please contact the signing physician directly. I spent 60 minutes with the pt which involved coordination of care, medical evaluation, review of records, and/or counseling of the pt regarding his/her condition/disease state/prognosis on the date of this note. Associated Order(s): IP CONSULT TO SOCIAL WORK SW consulted 12/02/24 by NADIYA Davenport- routine consult. See BEATRICE progress(s). documented in this encounter [facility] 12-03-2024 Note Problem: Pain - Adul t Goal: Verbalizes/displays adequate comfort level or baseline comfort level Outcome: Progressing Problem: Safety - Adult Goal: Free from fall injury Outcome: Progressing [facility] 12-03-2024 Plan of care note Problem: Pain - Adult Goal: Verbalizes/displays adequate comfort level or baseline comfort level Outcome: Progressing Problem: Safety - Adult Goal: Free from fall injury Outcome: Progressing [facility] 12-03-2024 Note Formatting of this n ote might be different from the original. Called patient's legal guardian to discuss discharge plan. Voice mail left with call back info. Anticipate return to [facility]. [facility] 12-03-2024 Note Formatting of this n ote might be different from the original. Called patient's legal guardian to discuss discharge plan. Voice mail left with call back info. Anticipate return to [facility]. [facility] 12-03-2024 Nurse Note Patient's family updated by RN that patient is doing well and will be returning to his room within the hour. [facility] 12-03-2024 Note Patient: Talia martinez Procedure Summary Date: 12/03/24 Room / Location: [address] Operating Room Anesthesia Start: 829 Anesthesia Stop: 1046 Procedure: RIGHT BELOW KNEE AMPUTATION (Right: Thigh - Leg Upper) Diagnosis: Displaced oblique fracture of shaft of right tibia, subsequent encounter for closed fracture with nonunion (S83.104K) Surgeons: Patti Durant MD Responsible Provider: Phill Gibbons MD Anesthesia Type: general, regional ASA Status: 3 Anesthesia Type: general, regional Vitals Value Taken Time BP 154/71 12/03/24 1100 Temp 35.6 ?C (96 ?F) 12/03/24 1051 Pulse 82 12/03/24 1103 Resp 16 12/03/24 1051 SpO2 97 % 12/03/24 1103 Vitals shown include unfiled device data. Anesthesia Post Evaluation Patient location during evaluation: PACU Patient participation: complete - patient participated Level of consciousness: awake and alert Pain management: satisfactory to patient Airway patency: patent Dental Injury: no Cardiovascular status: acceptable, blood pressure returned to baseline and hemodynamically stable Respiratory status: acceptable and spontaneous ventilation Hydration status: euvolemic Nausea/Vomiting: controlled No notable events documented. Patient can be discharged once all PACU criteria has been met. [facility] 12-03-2024 Note Patient: Talia martinez Procedure Summary Date: 12/03/24 Room / Location: [address] Operating Room Anesthesia Start: 0830 Anesthesia Stop: 1047 Procedure: RIGHT BELOW KNEE AMPUTATION (Right: Thigh - Leg Upper) Diagnosis: Displaced oblique fracture of shaft of right tibia, subsequent encounter for closed fracture with nonunion (S82.231K) Surgeons: Patti Durant MD Responsible Provider: Phill Gibbons MD Anesthesia Type: general, regional ASA Status: 3 Anesthesia Type: general, regional Vitals Value Taken Time BP 154/71 12/03/24 1100 Temp 35.6 ?C (96 ?F) 12/03/24 1051 Pulse 82 12/03/24 1103 Resp 16 12/03/24 1051 SpO2 97 % 12/03/24 1103 Vitals shown include unfiled device data. Anesthesia Post Evaluation Patient location during evaluation: PACU Patient participation: complete - patient participated Level of consciousness: awake and alert Pain management: satisfactory to patient Multimodal analgesia pain management approach Airway patency: patent Two or more strategies used to mitigate risk of obstructive sleep apnea Cardiovascular status: acceptable and hemodynamically stable Respiratory status: acceptable Hydration status: acceptable No notable events documented. MIPS #[id number] PONV Patient received an inhalational anesthetic (4554F) Patient does not exhibit three or more risk factors for PONV (X0430)) MIPS # 424 Perioperative Temperature Management Anesthesia time was 60 minutes or longer (4255F) Anesthesai administered was General (inhalational or TIVA) or Neuraxial block (X0424) At least one body temperature greater than 95.8F/35.5C achieved within the 30 mins immediately prior to or the 15 minutes immediately following anesthesia end time (G9771) MIPS #477 Multimodal Pain Management Not emergent case Patient was administered multimodal pain management (two or more drugs and/or interventions excluding systemic opioids) in the periopeartive period occurring at some time between 6 hours prior to anesthesia start time until discharged from PACU (G2148) I completed my handoff to the receiving clinician during which we: 1. Identified the patient 2. Identified the responsible provider 3. Reviewed the pertinent medical history 4. Discussed the surgical course 5. Reviewed intra-op anesthesia management and issues during anesthesia 6. Set expectations for post-procedure period 7. Allowed opportunity for questions and acknowledgement of understanding. [facility] 12-03-2024 Note Formatting of this n ote might be different from the original. Images from the original note were not included. BEATRICE consulted 12/02/24 by NADIYA Davenport- routine consult. EMR reviewed. Patient in hospital from [facility]. Unit CM following for return. Chart identified patient has legal guardian. CINDY communicated with Admission's Coordinator at [facility]/Erinn Martínez and then with guardian rep from [facility]/Jaci Cordova. Per guardian, guardianship is out of [facility] [address]. Obtained Letters of Guardianship (see below). CINDY confirmed with guardian, ca plan is for patient to return to [facility] at ca. Obtained additional contacts for guardian (home phone and email) and added to emergency contact section. Updated EMR to show active guardianship status. [facility] 12-03-2024 Note Formatting of this n ote might be different from the original. Images from the original note were not included. BEATRICE consulted 12/02/24 by NADIYA Davenport- routine consult. EMR reviewed. Patient in hospital from [facility]. Unit CM following for return. Chart identified patient has legal guardian. CINDY communicated with Admission's Coordinator at [facility]/Erinn Martínez and then with guardian rep from [facility]/Jaci Cordova. Per guardian, guardianship is out of [facility] [address]. Obtained Letters of Guardianship (see below). CINDY confirmed with guardian, jai plan is for patient to return to [facility] at ca. Obtained additional contacts for guardian (home phone and email) and added to emergency contact section. Updated EMR to show active guardianship status. [facility] 12-03-2024 Consult note Associated Order (s): IP CONSULT TO SOCIAL WORK SW consulted 12/02/24 by NADIYA Davenport- routine consult. See SW progress(s). [facility] 12-03-2024 Note SW consulted 12/02/24 by NADIYA Davenport- routine consult. See SW progress(s). [facility] 12-03-2024 Note Airway Date/Time: 12/03/2024 8:39 AM Urgency: scheduled Airway not difficult General Information and Staff Patient location during procedure: Procedural Resident/GLOVE BOARDER: Anthony Ramos CRNA Performed: GLOVE BOARDER Indications and Patient Condition Indications for airway management: anesthesia Sedation level: Asleep Preoxygenated: yes Patient position: sniffing MILS maintained throughout Mask difficulty assessment: 1 - vent by mask Final Airway Details Final airway type: supraglottic airway Successful airway: Igel Size 5 Number of attempts at approach: 1 [facility] 12-03-2024 Procedure note Pre-operative Diagnosis: Right tibia nonunion, fibula malnunion Post-operative Diagnosis: Same Procedure: Right Below Knee Amputation (CPT 04020) Components used: NA Anesthesia: general and regional Surgeon: Carleen Assistants: Chelsea Estimated Blood Loss: 200ml Complications: None Medications: 2g Ancef was given after intraoperative cultures were obtained Specimens: Right Leg Operative findings: No signs of infection the level of amputation. The muscle was normal in color and contractility at the level of the amputation. History of present illness: Talia is a 44 y.o. 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 After a long discussion of multiple surgical options including nonunion deformity surgeries versus amputation the patient ultimately decided to proceed with a below knee amputation. Despite the risks of surgery which had been discussed in detail Talia consented to proceed. Operative report: I met with Talia in the preoperative area prior to the procedure and discussed the surgical plan once again and answered all of his questions related to the procedure and the expected post-operative course. The risks of surgery were discussed including but not limited to the risks of medications given for surgery, the risk of blood loss during and after surgery that can lead to the need for blood products in certain situations, infection, damage to normal structures that can lead to intermediate card tender problems of pain or dysfunction, wound healing complications, and late or chronic pain were also discussed. The possible need for a more proximal amputation was discussed in the setting of a non-healing wound or infection. In addition potentially life threatening complications at the time of surgery and after surgery were discussed including but not limited to deep vein thrombosis, pulmonary embolism, myocardial infarction, stroke and . I initialed his Right lower extremity and signed his consent form. he was brought to the operating room and placed in the supine position on the Operating Room table. Care was taken to identify and pad all bony prominences. A general anesthetic was then given by the anesthesia staff and an endotracheal tube was placed by the anesthesia staff. At all times during the operative procedure the patient's head neck and airway were protected by the anesthesia staff. A tourniquet was applied to the Right proximal thigh over cast padding.The Right lower extremity was then prepped and draped in the usual orthopedic sterile fashion. A surgical timeout was then performed with the patient's identification, the procedure to be performed being reviewed, verification that the patient had received preoperative antibiotics, and verification of the correct surgical side. This timeout was performed by myself, the circulating room nurse and the anesthesia staff. The patient's ASA was verified by the nurse litigation attorney associate and the anesthesia staff. Fire risk was assessed. The Right lower extremity was elevated for exsanguination and the tourniquet was inflated. An incision was made over the anterior leg 15 cm distal to the knee joint line. The incision was extended over both the medial and lateral halves of the leg to a point midway between the anterior and posterior aspects of the leg. The incision was carefully made to avoid and resect the patient's prior muscle flap in order to minimize any risk of poor vascular supply to his skin due to the flap. The saphenous vein was identified medially and it was ligated with #1 surgilon and divided. The saphenous nerve was pulled distally, cut proximally and allowed to retract into the proximal leg. At this midway point the incision was curved distally down the leg and gradually posteriorly until the medial and lateral incisions met over the achilles tendon posteriorly. The achilles was divided transversely at this level distally. The anterior compartment of the leg was dissected proximally and the anterior tibial artery and vein were tied off using #1 surgilon stick tie sutures and divided. The deep peroneal nerve was pulled distally cut proximally and was allowed to retract into the proximal leg. The tibia and fibula were then circumferentially exposed. The fibula was cut 1 cm proximal to the planned tibial cut with a small oscillating saw. The tibia was then cut with a large oscillating saw. The leg was then flexed through the amputation site and an amputation knife was used to remove the leg through the deep posterior compartment. The leg was then passed off the table and sent for pathologic evaluation. The anterior aspect of the tibia was then chamffered using an oscillating saw and a rasp was used to round off all bone edges. No sharp edges remained. All bone cuts with the saws throughout the case were accompanied by irrigation in order to prevent thermal necrosis. The deep posterior muscle was then excised and the posterior tibial artery and vein and the peroneal artery and vein were ligated using #1 surgilon stick ties proximally. The distal ends were excised. The tibial nerve was pulled distally and cut proximally and it was allowed to retract into the leg proximally. Similarly the sural nerve was identified, pulled and cut proximally. The tourniquet was then released and any active bleeding was controlled using bovie cautery of suture ligature. The entire amputation wound was then thoroughly irrigated with copious amounts of sterile saline. The wound was re-inspected for any active bleeding and if found cautery or suture ligature was performed as necessary. The achilles was then repaired to the tibial periosteum utilizing 0-vicryl suture. The medial and lateral facia were then repaired to the posterior flap fascia thereby completely closing there muscle flap entirely. 2-0 vicryl was then used to close the subcutaneous tissue layer with interupted, buried sutures. The skin was then closed with marvin. An incisional VAC dressing was applied and a good seal was obtained. The patient was then awakened from his anesthetic, transferred to his hospital bed and was taken to the recovery room in stable medical condition. Post-operative plan: The patient will be seen in the office in 2 weeks for wound check and the sutures/marvin will be removed if the incision is completely healed. If not completely healed then he will be seen at 4 weeks for a recheck. Will discuss with medical team on homegoing DVT recommendations. [facility] 12-03-2024 Nurse Note Pt prepped for OR; unable to access periop board - notified appropriate people. [facility] 12-03-2024 Note Peripheral Block Time Out: 12/03/2024 8:08 AM Patient location during procedure: pre-op Start time: 12/03/2024 8:08 AM End time: 12/03/2024 8:13 AM Reason for block: at surgeon's request and post-op pain management Staffing Performed: GLOVE BOARDER Resident/GLOVE BOARDER: Syd Callejas CRNA Preanesthetic Checklist Completed: patient identified, IV checked, site marked, risks and benefits discussed, surgical consent, monitors and equipment checked, pre-op evaluation and timeout performed Region: Lower Extremities Primary: Popliteal (Bupivacaine 0.375% with dexamethasone 0.01% with epinephrine 1:200,000) Peripheral Block Patient position: supine Prep: ChloraPrep Patient monitoring: media monitor, continuous pulse ox and heart rate O2: Room air Laterality: right Injection technique: single-shot Guidance: ultrasound guided -image retained in chart, tip of the needle identified by ultraound during injection. Local infiltration: lidocaine 2% Dose: 5 mL Needle Needle: 22G X 50 mm Additional Notes Bupivicaine 0.375% with dexamethasone 0.01% with epinephrine 1:200,000 12/03/2024 8:08 AM and midazolam (Versed) injection - IntraVENous 2 mg - 12/03/2024 8:08:00 AM Assessment Injection assessment: negative aspiration for heme, no paresthesia on injection, incremental injection and local visualized surrounding nerve on ultrasound Paresthesia pain: none Heart rate change: no Slow fractionated injection: yes Required Documentation: Relevant anatomy identified (Nerves, Vessels, Muscles), Negative for blood on aspiration, Local anesthetic injected incrementally with intermittent aspiration every 5 mL, Normal resistance with injection, Local anesthetic spread visualized around nerves or plane., No EKG changes noted, No symptoms of toxicity, No paresthesias reported by patient during injection and Local anesthetic injected without difficultyMedications midazolam (Versed) injection - IntraVENous 2 mg - 12/03/2024 8:08:00 KXqrhESUWXqrzay-ufgyqvrscho-cgytmpv rine (TAP) syringe - Injection 30 mL - 12/03/2024 8:08:00 AM [facility] 12-03-2024 Note Formatting of this n ote might be different from the original. Case management consult noted. Will follow for transitional care and discharge planning needs. Chart reviewed. Noted patient is from [facility]. Will speak with him and make sure he is okay with returning. [facility] 12-03-2024 Note Formatting of this n ote might be different from the original. Case management consult noted. Will follow for transitional care and discharge planning needs. Chart reviewed. Noted patient is from [facility]. Will speak with him and make sure he is okay with returning. [facility] 12-03-2024 Note Patient: Talia martinez Procedure Information Date/Time: 12/03/24829 Procedure: RIGHT BELOW KNEE AMPUTATION (Right: Thigh - Leg Upper) - 120 minutes Location: [address] Operating Room Surgeons: Patti Durant MD Relevant Problems Anesthesia (+) Obstructive apnea Cardio (+) HTN (hypertension) (+) Hyperlipidemia Endo (+) Controlled diabetes mellitus type II without complication (HCC) (+) T2DM (type 2 diabetes mellitus) (HCC) Pulmonary (+) Obstructive apnea Other (+) Chronic osteomyelitis (CMS/HCC) (HCC) (+) Pyogenic arthritis of left hand (HCC) (+) Pyogenic arthritis of left hand, due to unspecified organism (HCC) Past Medical History: Past Medical History: No date: Asthma No date: Bipolar disorder (HCC) No date: Diabetes mellitus (HCC) No date: ETOH abuse No date: HTN (hypertension) No date: Hyperlipidemia No date: MAXIMO on CPAP No date: PTSD (post-traumatic stress disorder) Comment: 2/2 witness suicide as a child No date: T2DM (type 2 diabetes mellitus) (HCC) No date: Tobacco abuse Past Surgical History: Past Surgical History: No date: FRACTURE SURGERY Comment: Right leg, s/p bone graft 02/25/2024: OTHER SURGICAL HISTORY Comment: IRRIGATION AND DEBRIDEMENT HAND AND LONG FINGER METACARPOPHALANGEAL JOINT - Left Social History: TOBACCO: reports that he has been smoking. He does not have any smokeless tobacco history on file. ETOH: reports current alcohol use. Social History Substance and Sexual Activity Drug Use Yes Types: Marijuana Family History: Family History Problem Relation Name Age of Onset Bipolar disorder Other Screening: unknown Clinical information reviewed: Physical Exam Airway Mallampati: III TM distance: >3 FB Neck ROM: full Mouth Open: normal Cardiovascular Dental Pulmonary Abdominal Anesthesia Plan patient is NPO appropriate Any family history or previous problems with anesthesia no ASA 3 general and regional Any family history or previous problems with anesthesia no MAXIMO Screening Labs: Lab Results Component Value Date WBC 7.1 12/03/2024 HGB 13.3 12/03/2024 HCT 38.4 (L) 12/03/2024 MCV 84.6 12/03/2024 PLT 162 12/03/2024 Lab Results Component Value Date NA 134 (L) 12/03/2024 K 4.0 12/03/2024 CL 101 12/03/2024 CO2 27 12/03/2024 BUN 17 12/03/2024 CREATININE 0.91 12/03/2024 GLUCOSE 296 (H) 12/03/2024 CALCIUM 8.9 12/03/2024 PROT 6.5 02/28/2024 ALKPHOS 100 02/28/2024 AST 18 02/28/2024 ALT 15 02/28/2024 EGFR >90.0 12/03/2024 Pain Score: Patient resting with eyes closed and respirations are greater than 12 No echocardiogram results found for the past 14 days 12/02/24 ECG 12-LEAD (Preliminary) This result has not been signed. Information might be incomplete. Impression Sinus rhythm Low voltage, precordial leads Abnormal lateral Q waves Minimal ST elevation, inferior leads Equipment Requests: Additional Equipment Requests [facility] 12-03-2024 Attending History and physical note H&P reviewed. The patient was examined and there are no changes to the H&P. Source Note - Patti Durant MD - 11/25/2024 8:30 AM EST Images from the original note were not included. [facility] - [address] [facility] [address] Dept: [phone] Dept Talia Tung 1980 [id number] 11/25/2024 HISTORY OF PRESENT ILLNESS: Talia is a 43 y.o. male here today for evaluation of his right tibia/fibula fracture Talia states the problem has been present for 2 years Talia states the problem started as the result of an injury. It first fractured 2 years ago and then October 2023 it fractured again from a fall down some steps. He is taking ibuprofen for pain but isn't helping. He is using a wheelchair and crutches to get around. He is staying at a [facility] because he is homeless. He thinks it's related to his bone density. Talia has tried or has been treated with the following: modifying his activity level and avoiding those activities which aggravate the problem, NSAID's, walking aids (crutches, cane, a walker,knee scooter,wheelchair, etc), and bracing. The patient reports a history of a tibia fracture back in the late s and at that point had multiple surgeries to fix his leg fracture. At that time he endorses having infections that needed multiple surgeries to rid himself of the infections. Over the last 20 years he says that he had recurrent infection of his leg mostly in the soft tissue requiring surgery every few years and at one point requiring a muscle flap over top of his medial soft tissue.. More recently about 3 to 4 years ago he reports a minimally traumatic injury that caused his tibia to break again. This was treated nonoperatively and finally about a little over a year ago he had another injury causing his tibia and fibula to break. He had issues following up with his physicians and has been intermittently walking on his leg over this time. He reports increased deformity and pain. He is here to talk about his options since he is not functional on this leg. The patient offered up the idea of an amputation as he has been dealing with this injury for so many years with so many infections and he would like to have a definitive surgery to manage this. He currently lives at a facility as he was priorly homeless. He is a type II diabetic on insulin. 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 Review of Systems PAST MEDICAL HISTORY: Past Medical History: Diagnosis Date Asthma Bipolar disorder (HCC) Diabetes mellitus (HCC) ETOH abuse HTN (hypertension) Hyperlipidemia MAXIMO on CPAP PTSD (post-traumatic stress disorder) 2/2 witness suicide as a child T2DM (type 2 diabetes mellitus) (HCC) Tobacco abuse Allergies Allergen Reactions Haldol [Haloperidol] Metformin Risperdal [Risperidone] PHYSICAL EXAM: There were no vitals filed for this visit. right Lower extremity Able to dorsiflex and plantarflex his ankle and toes with some discomfort Skin: Dry, well-healed scars and muscle flap over the anterior medial distal tibia with no gross erythema or signs of infection Inspection: Obvious deformity at the distal tibial shaft with palpable bony apex along the anterior leg causing a flexion deformity through the distal tibia and fibula. tenderness to palpation: Over top of the distal tibia at the level of the deformity swelling: Yes ecchymosis: No Sensation: Diminished but intact through the foot below the level of the deformity Pulses: Palpable DP: yes PT: No BCR to all digits RADIOGRAPHIC INTERPRETATION: 2 views of the tibia and fibula demonstrate a nonunion of the distal tibial shaft with about a 40 degree flexion angulation through the nonunion site, erosive bone at the nonunion site with sclerotic comminuted pieces. There is an associated malunited fibula fracture along the midshaft fibula with bridging bone that is similarly angulated to the tibia. REVIEW OF RELATED PREVIOUS DOCUMENTATION: Documents from Dr. Benavides were reviewed. LABORATORY RESULT INTERPRETATION: No labs were reviewed/No labs available for review DIAGNOSIS: Diagnosis Plan 1. 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 The patient has a very difficult problem of a nonunion of his right tibia which may or may not have a low-grade infection with his history of multiple skin infections required debridement and him endorsing the fact that he usually has a new infection that seems to appear every few years. 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 We discussed both operative and nonoperative management, the risks and benefits of both. We extensively went over his surgical options with limb salvage options consisting of a talar spatial frame versus intramedullary device both of which would require extensive takedown of his malunion and nonunion with bone grafting and possible staged procedures, especially if he has an infection at the nonunion site. In light of his multiple recurrent infections of his leg and his inability to heal his fracture with multiple recurrent fractures the patient specifically wanted to discuss an amputation, either above-knee or below-knee. We discussed that a below-knee amputation would potentially give him more function with a slightly increased risk of recurrent infection or soft tissue coverage issues as he has a fairly significant flap along his leg but if this failed he still has an above-knee amputation as an option. We discussed and reiterated multiple times his options for limb salvage and the patient expressed understanding and ultimately decided to proceed with a below-knee amputation. I will have him go to the hospital a day early for a direct admit and have the medical team evaluate him and have him cleared for surgery at that time. We discussed they will likely stay in the hospital for a day or 2 after surgery. Smoking cessation counseling was provided to the patient today. Several detrimental effects of long-term nicotine dependence were discussed, including but not limited to heart disease, lung disease, dental issues, decreased extremity blood flow and heightened risk of cancer. In addition, patients who smoke with concurrent pathologies such as, but not limited to rotator cuff disease, fractures, meniscus tears, cartilage damage, and soft tissue injuries who require surgery have worse outcomes with respect to healing capacity, overall functional result, and pain relief. I reviewed their specific pathology and how smoking is detrimental to their functional recovery for over 10 minutes. SURGERY SCHEDULING SHEET Procedure: Right below knee amputation 68699 CPT codes: see above Diagnosis: 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 [S82.231K] Location for Surgery: [facility] Schedule for: 1.5 hours Admission Type: Patient to be direct admitted 1 day prior to surgery Medical Clearance: To be evaluated by medicine when direct admitted Antibiotic: Ancef 3 g Anesthesia: General + Regional Position and Table type: Supine on Regular OR table Radiology: None Electronically signed by Patti Durant MD [facility] Department of Orthopedic surgery 11/25/2024 10:31 AM Voice recognition was used for portions of this note and although it was reviewed prior to signing some incorrect words or phrases could be present. [facility] [employer] Work Phone: 12-03-2024 Note H&P reviewed. The pa scott was examined and there are no changes to the H&P. [facility] 12-03-2024 History and physical note H&P reviewed. The patient was examined and there are no changes to the H&P. Source Note - Patti Durant MD - 11/25/2024 8:30 AM EST Images from the original note were not included. [facility] - [place] [address] [facility] [facility] [address] Dept: [phone] Dept Talia Ruby 1980 [id number] 11/25/2024 HISTORY OF PRESENT ILLNESS: Talia is a 43 y.o. male here today for evaluation of his right tibia/fibula fracture Talia states the problem has been present for 2 years Talia states the problem started as the result of an injury. It first fractured 2 years ago and then October 2023 it fractured again from a fall down some steps. He is taking ibuprofen for pain but isn't helping. He is using a wheelchair and crutches to get around. He is staying at a usp because he is homeless. He thinks it's related to his bone density. Talia has tried or has been treated with the following: modifying his activity level and avoiding those activities which aggravate the problem, NSAID's, walking aids (crutches, cane, a walker,knee scooter,wheelchair, etc), and bracing. The patient reports a history of a tibia fracture back in the late and at that point had multiple surgeries to fix his leg fracture. At that time he endorses having infections that needed multiple surgeries to rid himself of the infections. Over the last 20 years he says that he had recurrent infection of his leg mostly in the soft tissue requiring surgery every few years and at one point requiring a muscle flap over top of his medial soft tissue.. More recently about 3 to 4 years ago he reports a minimally traumatic injury that caused his tibia to break again. This was treated nonoperatively and finally about a little over a year ago he had another injury causing his tibia and fibula to break. He had issues following up with his physicians and has been intermittently walking on his leg over this time. He reports increased deformity and pain. He is here to talk about his options since he is not functional on this leg. The patient offered up the idea of an amputation as he has been dealing with this injury for so many years with so many infections and he would like to have a definitive surgery to manage this. He currently lives at a facility as he was priorly homeless. He is a type II diabetic on insulin. 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 Review of Systems PAST MEDICAL HISTORY: Past Medical History: Diagnosis Date Asthma Bipolar disorder (HCC) Diabetes mellitus (HCC) ETOH abuse HTN (hypertension) Hyperlipidemia MAXIMO on CPAP PTSD (post-traumatic stress disorder) 2/2 witness suicide as a child T2DM (type 2 diabetes mellitus) ([facility]) Tobacco abuse Allergies Allergen Reactions Haldol [Haloperidol] Metformin Risperdal [Risperidone] PHYSICAL EXAM: There were no vitals filed for this visit. right Lower extremity Able to dorsiflex and plantarflex his ankle and toes with some discomfort Skin: Dry, well-healed scars and muscle flap over the anterior medial distal tibia with no gross erythema or signs of infection Inspection: Obvious deformity at the distal tibial shaft with palpable bony apex along the anterior leg causing a flexion deformity through the distal tibia and fibula. tenderness to palpation: Over top of the distal tibia at the level of the deformity swelling: Yes ecchymosis: No Sensation: Diminished but intact through the foot below the level of the deformity Pulses: Palpable DP: yes PT: No BCR to all digits RADIOGRAPHIC INTERPRETATION: 2 views of the tibia and fibula demonstrate a nonunion of the distal tibial shaft with about a 40 degree flexion angulation through the nonunion site, erosive bone at the nonunion site with sclerotic comminuted pieces. There is an associated malunited fibula fracture along the midshaft fibula with bridging bone that is similarly angulated to the tibia. REVIEW OF RELATED PREVIOUS DOCUMENTATION: Documents from Dr. Benavides were reviewed. LABORATORY RESULT INTERPRETATION: No labs were reviewed/No labs available for review DIAGNOSIS: Diagnosis Plan 1. 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 The patient has a very difficult problem of a nonunion of his right tibia which may or may not have a low-grade infection with his history of multiple skin infections required debridement and him endorsing the fact that he usually has a new infection that seems to appear every few years. 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 We discussed both operative and nonoperative management, the risks and benefits of both. We extensively went over his surgical options with limb salvage options consisting of a talar spatial frame versus intramedullary device both of which would require extensive takedown of his malunion and nonunion with bone grafting and possible staged procedures, especially if he has an infection at the nonunion site. In light of his multiple recurrent infections of his leg and his inability to heal his fracture with multiple recurrent fractures the patient specifically wanted to discuss an amputation, either above-knee or below-knee. We discussed that a below-knee amputation would potentially give him more function with a slightly increased risk of recurrent infection or soft tissue coverage issues as he has a fairly significant flap along his leg but if this failed he still has an above-knee amputation as an option. We discussed and reiterated multiple times his options for limb salvage and the patient expressed understanding and ultimately decided to proceed with a below-knee amputation. I will have him go to the hospital a day early for a direct admit and have the medical team evaluate him and have him cleared for surgery at that time. We discussed they will likely stay in the hospital for a day or 2 after surgery. Smoking cessation counseling was provided to the patient today. Several detrimental effects of long-term nicotine dependence were discussed, including but not limited to heart disease, lung disease, dental issues, decreased extremity blood flow and heightened risk of cancer. In addition, patients who smoke with concurrent pathologies such as, but not limited to rotator cuff disease, fractures, meniscus tears, cartilage damage, and soft tissue injuries who require surgery have worse outcomes with respect to healing capacity, overall functional result, and pain relief. I reviewed their specific pathology and how smoking is detrimental to their functional recovery for over 10 minutes. 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 Schedule for: 1.5 hours Admission Type: Patient to be direct admitted 1 day prior to surgery Medical Clearance: To be evaluated by medicine when direct admitted Antibiotic: Ancef 3 g Anesthesia: General + Regional Position and Table type: Supine on Regular OR table Radiology: None Electronically signed by Patti Durant MD [facility] Department of Orthopedic surgery 11/25/2024 10:31 AM Voice recognition was used for portions of this note and although it was reviewed prior to signing some incorrect words or phrases could be present. Images from the original note were not included. Ortho H&P Patient: Talia Ruby Date of : 1980 Acct: [id number] PCP: No primary care provider on file. Date of Admission: 12/02/2024 Date of Service: Pt seen/examined on 12/02/2024 Chief Complaint: Elective right BKA scheduled 12/03/2024 History Of Present Illness: 43 y.o. male with past medical history of bipolar disorder and diabetes mellitus who presented to [facility] today (12/02/2024) for elective right below the knee amputation scheduled for 12/03/2024. Patient has had an extensive history regarding his right tibia fracture that began back in the late . He has had numerous surgeries to his right lower extremity, including an abdominal flap placed to his right lower extremity, over the past 20 years that have resulted in recurrent infections. Around 2020, he had a minimally traumatic injury that caused his tibia to fracture again and was treated nonoperatively. Then, in 11/2023, he again sustained a fracture to his right tibia/fibula causing the current varus deformity. Since 11/2023, he has had difficulty with follow-up with his physicians, and admits to walking on his leg over this time. Over the past 1 year, he endorses increasing deformity and pain to his right lower extremity. Patient currently lives at [facility] secondary to history of homelessness. Patient met with Dr. Durant on 11/25/2024, at which time limb salvage options were discussed. After extensive discussion for limb salvage versus above/below the knee amputation, Dr. Durant and patient agreed to pursue a right below the knee amputation for his right tibia nonunion/malunion with concern for low-grade infection. Since previous evaluation on 11/25/2024, patient denies any further falls, trauma, or injuries. He denies any fevers, chills, or feelings of malaise. He endorses a chronic pain about his right leg that is unchanged from baseline. He also endorses history of numerous injuries as a result of traumas, including left dorsal hand glass removal, bilateral shoulder pain, and chronic back pain that are all stable from baseline. Tobacco use: 8 cigarettes/day Alcohol use: Denies Illicit substance use: Denies Social status: Lives at [facility], [facility] Assistive devices: Crutches Anticoagulant use: Denies Hx from chart and Pt. Past Medical History: Past Medical History: Diagnosis Date Asthma Bipolar disorder (HCC) Diabetes mellitus (HCC) ETOH abuse HTN (hypertension) Hyperlipidemia MAXIMO on CPAP PTSD (post-traumatic stress disorder) 2/2 witness suicide as a child T2DM (type 2 diabetes mellitus) (HCC) Tobacco abuse Past Surgical History: Past Surgical History: Procedure Laterality Date FRACTURE SURGERY Right leg, s/p bone graft OTHER SURGICAL HISTORY 02/25/2024 IRRIGATION AND DEBRIDEMENT HAND AND LONG FINGER METACARPOPHALANGEAL JOINT - Left Home Medications: Prior to Admission medications Medication Sig Start Date End Date Taking? Authorizing Provider atorvastatin (Lipitor) 20 MG tablet Take 1 tablet (20 mg) by mouth Nightly. 03/01/24 Isaac Marcos DO ipratropium-albuterol (Duo-Neb) 0.5-2.5 mg/3 mL nebulizer solution Take 3 mL by nebulization 3 times daily as needed for wheezing or shortness of breath. 03/02/24 03/02/25 Randy Drummond MD levothyroxine (Synthroid, Levoxyl) 50 MCG tablet Take 1 tablet (50 mcg) by mouth every morning (before breakfast). 03/02/24 Isaac Marcos DO melatonin 5 MG tablet Take 1 tablet (5 mg) by mouth Nightly. 03/02/24 Randy Drummond MD OLANZapine (ZyPREXA) 5 MG tablet Take 1 tablet (5 mg) by mouth every 6 hours as needed (agitation). 03/02/24 04/01/24 Randy Drummond MD polyethylene glycol, PEG, 3350 (Miralax) 17 g packet Take 17 g by mouth daily. 03/02/24 Randy Drummond MD sennosides (Senokot) 8.6 MG tablet Take 1 tablet (8.6 mg) by mouth 2 times daily. 03/02/24 03/02/25 Randy Drummond MD traZODone (Desyrel) 50 MG tablet Take 1 tablet (50 mg) by mouth Nightly as needed for sleep. 03/02/24 04/01/24 Randy Drummond MD Current Hospital Medications: Current Facility-Administered Medications: acetaminophen (Tylenol) tablet 650 mg, 650 mg, Oral, q4h PRN, Elin Villela MD HYDROmorphone (Dilaudid) injection 0.25 mg, 0.25 mg, IntraVENous, q3h PRN OR HYDROmorphone (Dilaudid) injection 0.5 mg, 0.5 mg, IntraVENous, q3h PRN, Elin Villela MD naloxone (Narcan) injection 0.4 mg, 0.4 mg, IntraVENous, q5 min PRN, Patti Durant MD ondansetron ODT (Zofran-ODT) disintegrating tablet 4 mg, 4 mg, Oral, q8h PRN OR ondansetron (Zofran) injection 4 mg, 4 mg, IntraVENous, q6h PRN, Elin Villela MD oxyCODONE (Roxicodone) immediate release tablet 5 mg, 5 mg, Oral, q4h PRN OR oxyCODONE (Roxicodone) immediate release tablet 10 mg, 10 mg, Oral, q4h PRN, Elin Villela MD polyethylene glycol (PEG) 3350 (Miralax) packet 17 g, 17 g, Oral, Daily PRN, Elin Villela MD sennosides (Senokot) tablet 17.2 mg, 2 tablet, Oral, Nightly OR Senna (Senokot) syrup 10 mL, 10 mL, Oral, Nightly, Elin Villela MD sodium chloride 0.9 % infusion, 5-250 mL/hr, IntraVENous, PRN, Elin Villela MD [START ON 12/03/2024] sodium chloride 0.9 % infusion, 100 mL/hr, IntraVENous, Continuous, Elin Villela MD sodium chloride 0.9% (NS) flush 5-40 mL, 5-40 mL, IntraVENous, q12h, Elin Villela MD, 10 mL at 12/02/24 1430 sodium chloride 0.9% (NS) flush 5-40 mL, 5-40 mL, IntraVENous, PRN, Elin Villela MD Allergies: Haldol [haloperidol], Metformin, and Risperdal [risperidone] Social History: Social History Socioeconomic History Marital status: Single Spouse name: Not on file Number of children: Not on file Years of education: Not on file Highest education level: Not on file Occupational History Not on file Tobacco Use Smoking status: Every Day Smokeless tobacco: Not on file Substance and Sexual Activity Alcohol use: Yes Drug use: Yes Types: Marijuana Sexual activity: Not on file Other Topics Concern Not on file Social History Narrative Not on file Social Drivers of Health Financial Resource Strain: Low Risk (05/19/2023) Received from [facility] Overall Financial Resource Strain (CARDIA) Difficulty of Paying Living Expenses: Not very hard Food Insecurity: Food Insecurity Present (12/29/2023) Received from [facility] Hunger Vital Sign Worried About Running Out of Food in the Last Year: Sometimes true Ran Out of Food in the Last Year: Never true Transportation Needs: No Transportation Needs (12/29/2023) Received from [facility] PRAPARE - Transportation Lack of Transportation (Medical): No Lack of Transportation (Non-Medical): No Physical Activity: Insufficiently Active (05/19/2023) Received from [facility] Exercise Vital Sign Days of Exercise per Week: 2 days Minutes of Exercise per Session: 10 min Stress: Stress Concern Present (05/19/2023) Received from [facility] of Occupational Health - Occupational Stress Questionnaire Feeling of Stress : To some extent Social Connections: Unknown (05/19/2023) Received from [facility] Social Connection and Isolation Panel [NHANES] Frequency of Communication with Friends and Family: More than three times a week Frequency of Social Gatherings with Friends and Family: Three times a week Attends [employer] Services: Not on file Active Member of Clubs or Organizations: Not on file Attends Club or Organization Meetings: More than 4 times per year Marital Status: Never Intimate Partner Violence: Unknown (02/25/2024) Humiliation, Afraid, Rape, and Kick questionnaire Fear of Current or Ex-Partner: No Emotionally Abused: No Physically Abused: Not on file Sexually Abused: Not on file Housing Stability: High Risk (12/29/2023) Received from [facility] Housing Stability Vital Sign Unable to Pay for Housing in the Last Year: Yes Number of Places Lived in the Last Year: Not on file Unstable Housing in the Last Year: Yes Family History: Family History Problem Relation Name Age of Onset Bipolar disorder Other Further Family History is noncontributory to this injury. REVIEW OF SYSTEMS: Review of Systems - General ROS: negative for - chills, fatigue, fever, malaise or night sweats Psychological ROS: negative Ophthalmic ROS: negative ENT ROS: negative for - headaches or sore throat Hematological and Lymphatic ROS: negative for - bleeding problems or blood clots Respiratory ROS: no cough, shortness of breath, or wheezing Cardiovascular ROS: no chest pain or dyspnea on exertion Gastrointestinal ROS: negative Musculoskeletal ROS: See HPI Neurological ROS: negative for - bowel and bladder control changes, gait disturbance or numbness/tingling All other systems reviewed and are negative PHYSICAL EXAM: BP 110/74 Pulse 78 Temp 36.3 C (97.4 F) Resp 22 SpO2 97% GENERAL APPEARANCE: Awake and oriented x4. No acute distress, except appropriate to injury. MOOD AND AFFECT: Calm appropriate to situation GAIT AND STATION: Patient is in bed and unable to ambulate secondary to known injury. COORDINATION and BALANCE: Patient is grossly coordinated unable to ambulate secondary to known injury. Right Upper Extremity: TTP: none ROM: no pain with ROM of fingers/wrist/elbow/shoulder Erythema: none Draining wounds: none Palpable fluctuance/abscess: none Proximal red streaking: none Palpable crepitus: none Radial pulse: palpable SILT: Grossly reduced to thumb and index finger, stable from baseline per patient Motor: AIN/PIN/ulnar intact Left Upper Extremity: TTP: none ROM: no pain with ROM of fingers/wrist/elbow/shoulder Erythema: none Draining wounds: none Palpable fluctuance/abscess: none Proximal red streaking: none Palpable crepitus: none Radial pulse: palpable SILT: intact M/R/U Motor: AIN/PIN/ulnar intact Surgical incision of the dorsal hand is clean and well-approximated without evidence of incision breakdown or wound dehiscence. Right Lower Extremity: TTP: Right distal tibia ROM: no pain with ROM of hip/knee/ankle/toes Erythema: None Draining wounds: none Palpable fluctuance/abscess: none Proximal red streaking: none Palpable crepitus: none DP pulse: palpable SILT: intact s/s/sp/dp/t Motor: HF/KE/KF/DF/PF/EHL intact Obvious severe varus/procurvatum deformity with marked shortening and previous flap appreciated to the medial aspect of the right distal one third tibia. No erythema, warmth, wounds, or active drainage about the right lower extremity. Right lower extremity is shortened compared to the left secondary to tibia deformity. Skin overlying the right gastrocsoleus complex is without wounds Bilateral lower extremities Right anterior lower leg Right medial lower leg Left Lower Extremity: TTP: none ROM: no pain with ROM of hip/knee/ankle/toes Erythema: none Draining wounds: none Palpable fluctuance/abscess: none Proximal red streaking: none Palpable crepitus: none DP pulse: palpable SILT: intact s/s/sp/dp/t Motor: HF/KE/KF/DF/PF/EHL intact Labs: CBC: No results found for: "WBC", "RBC", "HEMOGLOBIN" BMP:No results found for: "GLUCOSE", "SODIUM", "POTASSIUM", "CHLORIDE", "CO2", "BUN", "CREATININE", "CALCIUM" PT/INR: No results found for: "PT", "INR", "APTT" Type and Screen: No results found for: "RH", "LABANTI" CRP: No results found for: "CRP" ESR: No results found for: SEDRATE HgBA1c: No components found for: LABA1C The above labs were reviewed by me. Radiology: XR: Right tibia/fibula x-ray (12/02/2024): 2 views of the tibia and fibula demonstrate a nonunion of the distal tibial shaft with about a 40 degree flexion angulation through the nonunion site, erosive bone at the nonunion site with sclerotic comminuted pieces. There is an associated malunited fibula fracture along the midshaft fibula with bridging bone that is similarly angulated to the tibia. Radiology report reviewed. ASSESSMENT: 43 y.o. 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 at midnight -Hold anticoagulation -ID, med, APS consult -sound effects manager consulted, patient resides at [facility] ordered, will consult vascular surgery if abnormal -PT/OT -Abx: Per ID -Weight bearing: NWB RLE -Up with assist -Ice neuro/skin checks -Ortho primary. please page resident on-call with question/concerns. Anselmo Augustin MD Orthopaedic Surgery, PGY5 [facility] documented in this encounter [facility] 12-03-2024 Note Department of Orthop edic Surgery Progress Note SUBJECTIVE: Patient doing well, pain well controlled, NAEO. OBJECTIVE: General: alert and oriented to person, place and time, well-developed and well-nourished, in no acute distress, denies chest pain and shortness of breath VITALS: BP 114/68 (BP Location: Left arm, Patient Position: Lying) Pulse 70 Temp 36.1 ?C (97 ?F) (Temporal) Resp 20 SpO2 98% MSK exam: Right LE: Dressings C/D/I SILT: +Superficial Peroneal/Deep Peroneal/Tibial/Sural distributions; intact but diminished saphenous Motor +EHL/DF/PF Palpable dorsalis pedis/Posterior tibial pulse, <3s cap refill Labs: Type and Screen: Lab Results Component Value Date RH NEG 12/02/2024 INR: Lab Results Component Value Date INR 1.0 12/02/2024 CRP: Lab Results Component Value Date CRP 3.3 12/02/2024 ESR: Lab Results Component Value Date SEDRATE 5 12/02/2024 ASSESSMENT AND PLAN: This is a 44 y.o. 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 -Plan for OR tomorrow (12/03/2024) for right below the knee amputation with possible wound VAC application -Consented for above procedure -Medically optimized for procedure -Preop labs/workup complete -NPO -Hold anticoagulation -Medicine and APS consulted -sound effects manager consulted, patient resides at [facility] normal -PT/OT -Weight bearing: NWB RLE -Up with assist -Ice and elevate for pain -neuro/skin checks -Ortho primary. please page resident on-call with question/concerns. Elin Villela MD Orthopedic Surgery PGY-2 12/03/2024 at 6:04 AM [facility] 12-02-2024 Note Problem: Pain - Adul t Goal: Verbalizes/displays adequate comfort level or baseline comfort level Outcome: Progressing Problem: Safety - Adult Goal: Free from fall injury Outcome: Progressing [facility] 12-02-2024 Plan of care note Problem: Pain - Adult Goal: Verbalizes/displays adequate comfort level or baseline comfort level Outcome: Progressing Problem: Safety - Adult Goal: Free from fall injury Outcome: Progressing [facility] 12-02-2024 Nurse Note Report received from Erinn. Introduced myself to patient. No questions at this time. Patient bed low and locked, call light within reach. [facility] 12-02-2024 History and physical note Images from the original note were not included. Ortho H&P Patient: Talia Ruby Date of : 1980 Acct: [id number] PCP: No primary care provider on file. Date of Admission: 12/02/2024 Date of Service: Pt seen/examined on 12/02/2024 Chief Complaint: Elective right BKA scheduled 12/03/2024 History Of Present Illness: 43 y.o. male with past medical history of bipolar disorder and diabetes mellitus who presented to [facility] today (12/02/2024) for elective right below the knee amputation scheduled for 12/03/2024. Patient has had an extensive history regarding his right tibia fracture that began back in the late . He has had numerous surgeries to his right lower extremity, including an abdominal flap placed to his right lower extremity, over the past 20 years that have resulted in recurrent infections. Around 2020, he had a minimally traumatic injury that caused his tibia to fracture again and was treated nonoperatively. Then, in 11/2023, he again sustained a fracture to his right tibia/fibula causing the current varus deformity. Since 11/2023, he has had difficulty with follow-up with his physicians, and admits to walking on his leg over this time. Over the past 1 year, he endorses increasing deformity and pain to his right lower extremity. Patient currently lives at [facility] secondary to history of homelessness. Patient met with Dr. Durant on 11/25/2024, at which time limb salvage options were discussed. After extensive discussion for limb salvage versus above/below the knee amputation, Dr. Durant and patient agreed to pursue a right below the knee amputation for his right tibia nonunion/malunion with concern for low-grade infection. Since previous evaluation on 11/25/2024, patient denies any further falls, trauma, or injuries. He denies any fevers, chills, or feelings of malaise. He endorses a chronic pain about his right leg that is unchanged from baseline. He also endorses history of numerous injuries as a result of traumas, including left dorsal hand glass removal, bilateral shoulder pain, and chronic back pain that are all stable from baseline. Tobacco use: 8 cigarettes/day Alcohol use: Denies Illicit substance use: Denies Social status: Lives at [facility] Assistive devices: Crutches Anticoagulant use: Denies Hx from chart and Pt. Past Medical History: Past Medical History: Diagnosis Date Asthma Bipolar disorder (HCC) Diabetes mellitus (HCC) ETOH abuse HTN (hypertension) Hyperlipidemia MAXIMO on CPAP PTSD (post-traumatic stress disorder) 2/2 witness suicide as a child T2DM (type 2 diabetes mellitus) (HCC) Tobacco abuse Past Surgical History: Past Surgical History: Procedure Laterality Date FRACTURE SURGERY Right leg, s/p bone graft OTHER SURGICAL HISTORY 02/25/2024 IRRIGATION AND DEBRIDEMENT HAND AND LONG FINGER METACARPOPHALANGEAL JOINT - Left Home Medications: Prior to Admission medications Medication Sig Start Date End Date Taking? Authorizing Provider atorvastatin (Lipitor) 20 MG tablet Take 1 tablet (20 mg) by mouth Nightly. 03/01/24 Isaac Marcos, ipratropium-albuterol (Duo-Neb) 0.5-2.5 mg/3 mL nebulizer solution Take 3 mL by nebulization 3 times daily as needed for wheezing or shortness of breath. 03/02/24 03/02/25 Randy Drummond MD levothyroxine (Synthroid, Levoxyl) 50 MCG tablet Take 1 tablet (50 mcg) by mouth every morning (before breakfast). 03/02/24 Isaac Marcos DO melatonin 5 MG tablet Take 1 tablet (5 mg) by mouth Nightly. 03/02/24 Randy Drummond MD OLANZapine (ZyPREXA) 5 MG tablet Take 1 tablet (5 mg) by mouth every 6 hours as needed (agitation). 03/02/24 04/01/24 Randy Drummond MD polyethylene glycol, PEG, 3350 (Miralax) 17 g packet Take 17 g by mouth daily. 03/02/24 Randy Drummond MD sennosides (Senokot) 8.6 MG tablet Take 1 tablet (8.6 mg) by mouth 2 times daily. 03/02/24 03/02/25 Randy Drummond MD traZODone (Desyrel) 50 MG tablet Take 1 tablet (50 mg) by mouth Nightly as needed for sleep. 03/02/24 04/01/24 Randy Drummond MD Current Hospital Medications: Current Facility-Administered Medications: acetaminophen (Tylenol) tablet 650 mg, 650 mg, Oral, q4h PRN, Elin Villela MD HYDROmorphone (Dilaudid) injection 0.25 mg, 0.25 mg, IntraVENous, q3h PRN OR HYDROmorphone (Dilaudid) injection 0.5 mg, 0.5 mg, IntraVENous, q3h PRN, Elin Villela MD naloxone (Narcan) injection 0.4 mg, 0.4 mg, IntraVENous, q5 min PRN, Patti Durant MD ondansetron ODT (Zofran-ODT) disintegrating tablet 4 mg, 4 mg, Oral, q8h PRN OR ondansetron (Zofran) injection 4 mg, 4 mg, IntraVENous, q6h PRN, Elin Villela MD oxyCODONE (Roxicodone) immediate release tablet 5 mg, 5 mg, Oral, q4h PRN OR oxyCODONE (Roxicodone) immediate release tablet 10 mg, 10 mg, Oral, q4h PRN, Elin Villela MD polyethylene glycol (PEG) 3350 (Miralax) packet 17 g, 17 g, Oral, Daily PRN, Elin Villela MD sennosides (Senokot) tablet 17.2 mg, 2 tablet, Oral, Nightly OR Senna (Senokot) syrup 10 mL, 10 mL, Oral, Nightly, Elin Villela MD sodium chloride 0.9 % infusion, 5-250 mL/hr, IntraVENous, PRN, Elin Villela MD [START ON 12/03/2024] sodium chloride 0.9 % infusion, 100 mL/hr, IntraVENous, Continuous, Elin Villela MD sodium chloride 0.9% (NS) flush 5-40 mL, 5-40 mL, IntraVENous, q12h, Elin Villela MD, 10 mL at 12/02/24 1430 sodium chloride 0.9% (NS) flush 5-40 mL, 5-40 mL, IntraVENous, PRN, Elin Villela MD Allergies: Haldol [haloperidol], Metformin, and Risperdal [risperidone] Social History: Social History Socioeconomic History Marital status: Single Spouse name: Not on file Number of children: Not on file Years of education: Not on file Highest education level: Not on file Occupational History Not on file Tobacco Use Smoking status: Every Day Smokeless tobacco: Not on file Substance and Sexual Activity Alcohol use: Yes Drug use: Yes Types: Marijuana Sexual activity: Not on file Other Topics Concern Not on file Social History Narrative Not on file Social Drivers of Health Financial Resource Strain: Low Risk (05/19/2023) Received from [facility] Overall Financial Resource Strain (CARDIA) Difficulty of Paying Living Expenses: Not very hard Food Insecurity: Food Insecurity Present (12/29/2023) Received from [facility] Hunger Vital Sign Worried About Running Out of Food in the Last Year: Sometimes true Ran Out of Food in the Last Year: Never true Transportation Needs: No Transportation Needs (12/29/2023) Received from [facility] PRAPARE - Transportation Lack of Transportation (Medical): No Lack of Transportation (Non-Medical): No Physical Activity: Insufficiently Active (05/19/2023) Received from [facility] Exercise Vital Sign Days of Exercise per Week: 2 days Minutes of Exercise per Session: 10 min Stress: Stress Concern Present (05/19/2023) Received from [facility] [employer] [place] [employer] - Occupational Stress Questionnaire Feeling of Stress : To some extent Social Connections: Unknown (05/19/2023) Received from [facility] Social Connection and Isolation Panel [NHANES] Frequency of Communication with Friends and Family: More than three times a week Frequency of Social Gatherings with Friends and Family: Three times a week Attends [employer] Services: Not on file Active Member of Clubs or Organizations: Not on file Attends Club or Organization Meetings: More than 4 times per year Marital Status: Never Intimate Partner Violence: Unknown (02/25/2024) Humiliation, Afraid, Rape, and Kick questionnaire Fear of Current or Ex-Partner: No Emotionally Abused: No Physically Abused: Not on file Sexually Abused: Not on file Housing Stability: High Risk (12/29/2023) Received from [facility] Housing Stability Vital Sign Unable to Pay for Housing in the Last Year: Yes Number of Places Lived in the Last Year: Not on file Unstable Housing in the Last Year: Yes Family History: Family History Problem Relation Name Age of Onset Bipolar disorder Other Further Family History is noncontributory to this injury. REVIEW OF SYSTEMS: Review of Systems - General ROS: negative for - chills, fatigue, fever, malaise or night sweats Psychological ROS: negative Ophthalmic ROS: negative ENT ROS: negative for - headaches or sore throat Hematological and Lymphatic ROS: negative for - bleeding problems or blood clots Respiratory ROS: no cough, shortness of breath, or wheezing Cardiovascular ROS: no chest pain or dyspnea on exertion Gastrointestinal ROS: negative Musculoskeletal ROS: See HPI Neurological ROS: negative for - bowel and bladder control changes, gait disturbance or numbness/tingling All other systems reviewed and are negative PHYSICAL EXAM: BP 110/74 Pulse 78 Temp 36.3 C (97.4 F) Resp 22 SpO2 97% GENERAL APPEARANCE: Awake and oriented x4. No acute distress, except appropriate to injury. MOOD AND AFFECT: Calm appropriate to situation GAIT AND STATION: Patient is in bed and unable to ambulate secondary to known injury. COORDINATION and BALANCE: Patient is grossly coordinated unable to ambulate secondary to known injury. Right Upper Extremity: TTP: none ROM: no pain with ROM of fingers/wrist/elbow/shoulder Erythema: none Draining wounds: none Palpable fluctuance/abscess: none Proximal red streaking: none Palpable crepitus: none Radial pulse: palpable SILT: Grossly reduced to thumb and index finger, stable from baseline per patient Motor: AIN/PIN/ulnar intact Left Upper Extremity: TTP: none ROM: no pain with ROM of fingers/wrist/elbow/shoulder Erythema: none Draining wounds: none Palpable fluctuance/abscess: none Proximal red streaking: none Palpable crepitus: none Radial pulse: palpable SILT: intact M/R/U Motor: AIN/PIN/ulnar intact Surgical incision of the dorsal hand is clean and well-approximated without evidence of incision breakdown or wound dehiscence. Right Lower Extremity: TTP: Right distal tibia ROM: no pain with ROM of hip/knee/ankle/toes Erythema: None Draining wounds: none Palpable fluctuance/abscess: none Proximal red streaking: none Palpable crepitus: none DP pulse: palpable SILT: intact s/s/sp/dp/t Motor: HF/KE/KF/DF/PF/EHL intact Obvious severe varus/procurvatum deformity with marked shortening and previous flap appreciated to the medial aspect of the right distal one third tibia. No erythema, warmth, wounds, or active drainage about the right lower extremity. Right lower extremity is shortened compared to the left secondary to tibia deformity. Skin overlying the right gastrocsoleus complex is without wounds Bilateral lower extremities Right anterior lower leg Right medial lower leg Left Lower Extremity: TTP: none ROM: no pain with ROM of hip/knee/ankle/toes Erythema: none Draining wounds: none Palpable fluctuance/abscess: none Proximal red streaking: none Palpable crepitus: none DP pulse: palpable SILT: intact s/s/sp/dp/t Motor: HF/KE/KF/DF/PF/EHL intact Labs: CBC: No results found for: "WBC", "RBC", "HEMOGLOBIN" BMP:No results found for: "GLUCOSE", "SODIUM", "POTASSIUM", "CHLORIDE", "CO2", "BUN", "CREATININE", "CALCIUM" PT/INR: No results found for: "PT", "INR", "APTT" Type and Screen: No results found for: "RH", "LABANTI" CRP: No results found for: "CRP" ESR: No results found for: SEDRATE HgBA1c: No components found for: LABA1C The above labs were reviewed by me. Radiology: XR: Right tibia/fibula x-ray (12/02/2024): 2 views of the tibia and fibula demonstrate a nonunion of the distal tibial shaft with about a 40 degree flexion angulation through the nonunion site, erosive bone at the nonunion site with sclerotic comminuted pieces. There is an associated malunited fibula fracture along the midshaft fibula with bridging bone that is similarly angulated to the tibia. Radiology report reviewed. ASSESSMENT: 43 y.o. 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 at midnight -Hold anticoagulation -ID, med, APS consult -sound effects manager consulted, patient resides at [facility] -PVR ordered, will consult vascular surgery if abnormal -PT/OT -Abx: Per ID -Weight bearing: NWB RLE -Up with assist -Ice neuro/skin checks -Ortho primary. please page resident on-call with question/concerns. Anselmo Augustin MD Orthopaedic Surgery, PGY5 [facility] 12-02-2024 Note Ortho H&P Patient: Talia Ruby Date of : 1980 Acct: [id number] PCP: No primary care provider on file. Date of Admission: 12/02/2024 Date of Service: Pt seen/examined on 12/02/2024 Chief Complaint: Elective right BKA scheduled 12/03/2024 History Of Present Illness: 43 y.o. male with past medical history of bipolar disorder and diabetes mellitus who presented to [facility] today (12/02/2024) for elective right below the knee amputation scheduled for 12/03/2024. Patient has had an extensive history regarding his right tibia fracture that began back in the late . He has had numerous surgeries to his right lower extremity, including an abdominal flap placed to his right lower extremity, over the past 20 years that have resulted in recurrent infections. Around 2020, he had a minimally traumatic injury that caused his tibia to fracture again and was treated nonoperatively. Then, in 11/2023, he again sustained a fracture to his right tibia/fibula causing the current varus deformity. Since 11/2023, he has had difficulty with follow-up with his physicians, and admits to walking on his leg over this time. Over the past 1 year, he endorses increasing deformity and pain to his right lower extremity. Patient currently lives at [facility] secondary to history of homelessness. Patient met with Dr. Durant on 11/25/2024, at which time limb salvage options were discussed. After extensive discussion for limb salvage versus above/below the knee amputation, Dr. Durant and patient agreed to pursue a right below the knee amputation for his right tibia nonunion/malunion with concern for low-grade infection. Since previous evaluation on 11/25/2024, patient denies any further falls, trauma, or injuries. He denies any fevers, chills, or feelings of malaise. He endorses a chronic pain about his right leg that is unchanged from baseline. He also endorses history of numerous injuries as a result of traumas, including left dorsal hand glass removal, bilateral shoulder pain, and chronic back pain that are all stable from baseline. Tobacco use: 8 cigarettes/day Alcohol use: Denies Illicit substance use: Denies Social status: Lives at [facility], SNF Assistive devices: Crutches Anticoagulant use: Denies Hx from chart and Pt. Past Medical History: Past Medical History: Diagnosis Date Asthma Bipolar disorder (HCC) Diabetes mellitus (HCC) ETOH abuse HTN (hypertension) Hyperlipidemia MAXIMO on CPAP PTSD (post-traumatic stress disorder) 2/2 witness suicide as a child T2DM (type 2 diabetes mellitus) (HCC) Tobacco abuse Past Surgical History: Past Surgical History: Procedure Laterality Date FRACTURE SURGERY Right leg, s/p bone graft OTHER SURGICAL HISTORY 02/25/2024 IRRIGATION AND DEBRIDEMENT HAND AND LONG FINGER METACARPOPHALANGEAL JOINT - Left Home Medications: Prior to Admission medications Medication Sig Start Date End Date Taking? Authorizing Provider atorvastatin (Lipitor) 20 MG tablet Take 1 tablet (20 mg) by mouth Nightly. 03/01/24 Isaac Marcos DO ipratropium-albuterol (Duo-Neb) 0.5-2.5 mg/3 mL nebulizer solution Take 3 mL by nebulization 3 times daily as needed for wheezing or shortness of breath. 03/02/24 03/02/25 Randy Drummond MD levothyroxine (Synthroid, Levoxyl) 50 MCG tablet Take 1 tablet (50 mcg) by mouth every morning (before breakfast). 03/02/24 Isaac Marcos DO melatonin 5 MG tablet Take 1 tablet (5 mg) by mouth Nightly. 03/02/24 Randy Drummond MD OLANZapine (ZyPREXA) 5 MG tablet Take 1 tablet (5 mg) by mouth every 6 hours as needed (agitation). 03/02/24 04/01/24 Randy Drummond MD polyethylene glycol, PEG, 3350 (Miralax) 17 g packet Take 17 g by mouth daily. 03/02/24 Randy Drummond MD sennosides (Senokot) 8.6 MG tablet Take 1 tablet (8.6 mg) by mouth 2 times daily. 03/02/24 03/02/25 Randy Drummond MD traZODone (Desyrel) 50 MG tablet Take 1 tablet (50 mg) by mouth Nightly as needed for sleep. 03/02/24 04/01/24 Randy Drummond MD Current Hospital Medications: Current Facility-Administered Medications: acetaminophen (Tylenol) tablet 650 mg, 650 mg, Oral, q4h PRN, Elin Villela MD HYDROmorphone (Dilaudid) injection 0.25 mg, 0.25 mg, IntraVENous, q3h PRN OR HYDROmorphone (Dilaudid) injection 0.5 mg, 0.5 mg, IntraVENous, q3h PRN, Elin Villela MD naloxone (Narcan) injection 0.4 mg, 0.4 mg, IntraVENous, q5 min PRN, Patti Durant MD ondansetron ODT (Zofran-ODT) disintegrating tablet 4 mg, 4 mg, Oral, q8h PRN OR ondansetron (Zofran) injection 4 mg, 4 mg, IntraVENous, q6h PRN, Elin Villela MD oxyCODONE (Roxicodone) immediate release tablet 5 mg, 5 mg, Oral, q4h PRN OR oxyCODONE (Roxicodone) immediate release tablet 10 mg, 10 mg, Oral, q4h PRN, Elin Villela MD polyethylene glycol (PEG) 3350 (Miralax) packet 17 g, 17 g, Oral, Daily PRN, Elin Quintero (more content not included)... [facility] 12-02-2024 Hospital Discharge instructions Hitesh Rutledge PA-C - 12/02/2024 2:46 PM EST General Orthopedic Discharge Instructions The following instructions have been prepared to help you when you leave the hospital. These guidelines are for the post-surgery period. Activity: Non weight bearing right leg Medications: see medication instructions. Please be sure to read and understand the information provided by your pharmacy. Ask your Pharmacist if any questions. Wound Care and Hygiene: -Wash hands before touching or changing dressings -Do Not touch incision -Leave incisional vacuum on until follow up on 12/14/24 Call Your Doctor for: -Excessive bleeding/swelling of incision -Fever with temperature above 100 oF Anesthesia Precautions: -Do Not operate any vehicle (automobile, bicycle, motorcycle) or power tools for 24 hours -Do Not drink alcoholic beverages for 24 hours -As precaution to prevent post-operative nausea and vomiting, start your diet with liquids, then progress to light foods. If tolerated, resume normal diet. Sherrie Crandall RN - 12/03/2024 6:10 PM EST Images from the original note were not included. Continuity of Care Form Patient Name: Talia Ruby : 1980 Admit date: 12/02/2024 Discharge date: 12/06/24 Code Status Order: Full Code Advance Directives: N Admitting Physician: Patti Durant MD PCP: No primary care provider on file. Discharging Nurse: Sherrie Discharging Hospital Unit/Room#: [id number]/[id number] A Discharging Unit Emergency Contact: Extended Emergency Contact Information Primary Emergency Contact: Jaci Cordova Mobile Relation: Legal Guardian Secondary Emergency Contact: Jeny Ruby Relation: Mother Past Surgical History: Past Surgical History: Procedure Laterality Date FRACTURE SURGERY Right leg, s/p bone graft LEG AMPUTATION THROUGH LOWER TIBIA AND FIBULA Right 12/03/2024 RIGHT BELOW KNEE AMPUTATION - Right OTHER SURGICAL HISTORY 02/25/2024 IRRIGATION AND DEBRIDEMENT HAND AND LONG FINGER METACARPOPHALANGEAL JOINT - Left Immunization History: Immunization History Administered Date(s) Administered Covid-19, Pfizer Bivalent Booster, (Age 12y+), Im, 30 Mcg/0e 10/21/2022 Moderna SARS-CoV-2 Vaccination 02/22/2021, 03/22/2021 Pfizer SARS-CoV-2 Vaccination 09/19/2021 Pneumococcal Polysaccharide PPSV23 04/13/2015 Tdap 12/12/2016, 02/25/2024 Active Problems: Medical Problems Problem List * (Principal) 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 Pyogenic arthritis of left hand, due to unspecified organism (HCC) Chronic osteomyelitis (CMS/HCC) (HCC) Tobacco abuse Acute encephalopathy Hyperlipidemia HTN (hypertension) T2DM (type 2 diabetes mellitus) (HCC) Bipolar 1 disorder (HCC) Overview Signed 07/13/2022 9:04 PM by Interface, Incoming Problems- [facility] Conversion Overview: [facility], off medication since 2005, most recently Depakote. Obstructive apnea Morbid obesity (HCC) Controlled diabetes mellitus type II without complication (HCC) Acute respiratory failure with hypoxia and hypercapnia (HCC) ETOH abuse Pyogenic arthritis of left hand (HCC) Isolation/Infection: No active isolations No active infections Nurse Assessment: Last Vital Signs: BP 108/76 Pulse 95 Temp 36.3 C (97.4 F) (Temporal) Resp 18 Wt 120 kg (264 lb 8.8 oz) SpO2 97% BMI 40.82 kg/m Last documented pain score (0-10 scale): Last Weight: Wt Readings from Last 1 Encounters: 12/03/24 120 kg (264 lb 8.8 oz) Mental Status: MINNA Patient Mental Status: oriented IV Access: MINNA IV Access: None Nursing Mobility/ADLs: Walking Minimal assistance Transfer Minimal assistance Bathing Independent Dressing Independent Toileting Independent Feeding Independent Starter Mechanic Independent Med Delivery yes Wound Care Documentation and Therapy: Wound/Incision 12/03/24 Incision Amputation site - below knee Right (Active) Site Assessment Unable to assess 12/03/24 1218 Rashida-Wound Assessment Unable to assess 12/03/24 1218 Drainage Amount None 12/03/24 1130 Treatments Cleansed 12/03/24 1032 Primary Dressing Elastic bandage wrap (KELLE);Vacuum dressing 12/03/24 1218 Dressing Status Clean, dry & intact 12/03/24 1218 Number of days: 0 Elimination: Continence: Bowel: yes Bladder: yes Urinary Catheter: None Colostomy/Ileostomy/Ileal Conduit: None Date of Last BM: Intake/Output Summary (Last 24 hours) at 12/03/2024 1809 Last data filed at 12/03/2024 1758 Gross per 24 hour Intake 1211.67 ml Output 500 ml Net 711.67 ml I/O last 3 completed shifts: In: 501.7 [I.V.:501.7] Out: - Safety Concerns: at risk for falls Impairments/Disabilities: amputation - RLE Nutrition Therapy: Current Nutrition Therapy: Oral diet: carb control 3 carbs/meal (1500kcals/day) Routes of Feeding: oral Liquids: no restrictions Daily Fluid Restriction: no Last Modified Barium Swallow with Video (Video Swallowing Test): not done Treatments at the Time of Hospital Discharge: Respiratory Treatments: na Oxygen Therapy: is not on home oxygen therapy. Ventilator: No ventilator support Rehab Therapies: physical therapy and occupational therapy Weight Bearing Status/Restrictions: non-weight bearing Other Medical Equipment (for information only, NOT a DME order): bedside commode and crutches Other Treatments: na Patient's personal belongings (please select all that are sent with patient): none RN SIGNATURE: MANAGEMENT/SOCIAL WORK SECTION Inpatient Status Date: Discharging to Facility/ Agency Name: [facility] Address: [address] [place] [id number] Diabetic Educator/Armor Reconnaissance Specialist signature: ICIAN SECTION Name: Talia Ruby Prognosis: {Rehab Prognosis:49788} Condition at Discharge: {Patient Condition:21030} Rehab Potential (if transferring to Rehab): good Recommended Labs or Other Treatments After Discharge: PT/OT The individual is being admitted to a nursing facility directly from an [facility] or a unit of a [facility] that is not operated by or licensed by [facility] under section 5119.14 or 5160-3-15.1 5 The individual requires the level of services provided by a nursing facility for the condition for which he or she was treated in the hospital and, Physician Certification: I certify the above information and transfer of Talia Ruby is necessary for the continuing treatment of the diagnosis listed and that he requires fdc facility for greater than 30 days. Update Admission H&P: No change in H&P PHYSICIAN SIGNATURE: documented in this encounter [facility] 11-26-2024 Telephone encounter Note Spoke with Jaci and she is having legal guardianship paperwork faxed to us. After receiving, will fax the post op appointment times to the nursing facility. [facility] 11-26-2024 Miscellaneous Notes Spoke with Jaci and she is having legal guardianship paperwork faxed to us. After receiving, will fax the post op appointment times to the nursing facility. Patient will be direct admitted on 12/02/2024 in the early afternoon per Dr. Durant. Called and set up the direct admit with Faith Greenwood Direct admit knows to call Jaci Leger residential case manager for the patient to set up transportation for patient. Called facility residential case manager, Jaci, and scheduled all 3 post op appointments. She knows patient will be direct admitted a day prior to surgery. She knows [facility] will be calling her the day of to let her know when patient needs to be at the hospital on 12/02/2024. Jaci stated that she needed consent forms sent to her directly so she may sign for the consent for surgery as she is his legal guardian. We do not have legal guardianship paperwork stating she is his legal guardian. Direct admit 12/02/2024 early afternoon Sx: 12/03/2024 830am Dx: S82.231K CPT: 29156 IPO: 12/14/2024 2PM [place] 6 WK PO: 01/11/2025 2PM [place] 12WK PO: 02/22/2025 2PM [place] ----- Message from Patti Durant MD sent at 11/25/2024 10:44 AM EST ----- Regarding: Surgery SURGERY SCHEDULING SHEET Procedure: Right below knee amputation 11774 CPT codes: see above Diagnosis: 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 [S82.231K] Location for Surgery: [facility] Schedule for: 1.5 hours Admission Type: Patient to be direct admitted 1 day prior to surgery Medical Clearance: To be evaluated by medicine when direct admitted Antibiotic: Ancef 3 g Anesthesia: General + Regional Position and Table type: Supine on Regular OR table Radiology: None documented in this encounter [facility] 11-25-2024 Telephone encounter Note Patient will be direct admitted on 12/02/2024 in the early afternoon per Dr. Durant. Called and set up the direct admit with Faith Greenwood Direct admit knows to call Jaci Leger residential case manager for the patient to set up transportation for patient. Called facility residential case manager, Jaci, and scheduled all 3 post op appointments. She knows patient will be direct admitted a day prior to surgery. She knows [facility] will be calling her the day of to let her know when patient needs to be at the hospital on 12/02/2024. Jaci stated that she needed consent forms sent to her directly so she may sign for the consent for surgery as she is his legal guardian. We do not have legal guardianship paperwork stating she is his legal guardian. 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 Schedule for: 1.5 hours Admission Type: Patient to be direct admitted 1 day prior to surgery Medical Clearance: To be evaluated by medicine when direct admitted Antibiotic: Ancef 3 g Anesthesia: General + Regional Position and Table type: Supine on Regular OR table Radiology: None [facility] 11-25-2024 History of Present illness Narrative Images from the original note were not included. [facility] [address] [facility] [address] Dept: [phone] Dept Talia Ruby 1980 [id number] 11/25/2024 HISTORY OF PRESENT ILLNESS: Talia is a 43 y.o. male here today for evaluation of his right tibia/fibula fracture Talia states the problem has been present for 2 years Talia states the problem started as the result of an injury. It first fractured 2 years ago and then October 2023 it fractured again from a fall down some steps. He is taking ibuprofen for pain but isn't helping. He is using a wheelchair and crutches to get around. He is staying at a [facility] because he is homeless. He thinks it's related to his bone density. Talia has tried or has been treated with the following: modifying his activity level and avoiding those activities which aggravate the problem, NSAID's, walking aids (crutches, cane, a walker,knee scooter,wheelchair, etc), and bracing. The patient reports a history of a tibia fracture back in the late and at that point had multiple surgeries to fix his leg fracture. At that time he endorses having infections that needed multiple surgeries to rid himself of the infections. Over the last 20 years he says that he had recurrent infection of his leg mostly in the soft tissue requiring surgery every few years and at one point requiring a muscle flap over top of his medial soft tissue.. More recently about 3 to 4 years ago he reports a minimally traumatic injury that caused his tibia to break again. This was treated nonoperatively and finally about a little over a year ago he had another injury causing his tibia and fibula to break. He had issues following up with his physicians and has been intermittently walking on his leg over this time. He reports increased deformity and pain. He is here to talk about his options since he is not functional on this leg. The patient offered up the idea of an amputation as he has been dealing with this injury for so many years with so many infections and he would like to have a definitive surgery to manage this. He currently lives at a facility as he was priorly homeless. He is a type II diabetic on insulin. 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 Review of Systems PAST MEDICAL HISTORY: Past Medical History: Diagnosis Date Asthma Bipolar disorder (HCC) Diabetes mellitus (HCC) ETOH abuse HTN (hypertension) Hyperlipidemia MAXIMO on CPAP PTSD (post-traumatic stress disorder) 2/2 witness suicide as a child T2DM (type 2 diabetes mellitus) (HCC) Tobacco abuse Allergies Allergen Reactions Haldol [Haloperidol] Metformin Risperdal [Risperidone] PHYSICAL EXAM: There were no vitals filed for this visit. right Lower extremity Able to dorsiflex and plantarflex his ankle and toes with some discomfort Skin: Dry, well-healed scars and muscle flap over the anterior medial distal tibia with no gross erythema or signs of infection Inspection: Obvious deformity at the distal tibial shaft with palpable bony apex along the anterior leg causing a flexion deformity through the distal tibia and fibula. tenderness to palpation: Over top of the distal tibia at the level of the deformity swelling: Yes ecchymosis: No Sensation: Diminished but intact through the foot below the level of the deformity Pulses: Palpable DP: yes PT: No BCR to all digits RADIOGRAPHIC INTERPRETATION: 2 views of the tibia and fibula demonstrate a nonunion of the distal tibial shaft with about a 40 degree flexion angulation through the nonunion site, erosive bone at the nonunion site with sclerotic comminuted pieces. There is an associated malunited fibula fracture along the midshaft fibula with bridging bone that is similarly angulated to the tibia. REVIEW OF RELATED PREVIOUS DOCUMENTATION: Documents from Dr. Benavides were reviewed. LABORATORY RESULT INTERPRETATION: No labs were reviewed/No labs available for review DIAGNOSIS: Diagnosis Plan 1. 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 The patient has a very difficult problem of a nonunion of his right tibia which may or may not have a low-grade infection with his history of multiple skin infections required debridement and him endorsing the fact that he usually has a new infection that seems to appear every few years. 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 We discussed both operative and nonoperative management, the risks and benefits of both. We extensively went over his surgical options with limb salvage options consisting of a talar spatial frame versus intramedullary device both of which would require extensive takedown of his malunion and nonunion with bone grafting and possible staged procedures, especially if he has an infection at the nonunion site. In light of his multiple recurrent infections of his leg and his inability to heal his fracture with multiple recurrent fractures the patient specifically wanted to discuss an amputation, either above-knee or below-knee. We discussed that a below-knee amputation would potentially give him more function with a slightly increased risk of recurrent infection or soft tissue coverage issues as he has a fairly significant flap along his leg but if this failed he still has an above-knee amputation as an option. We discussed and reiterated multiple times his options for limb salvage and the patient expressed understanding and ultimately decided to proceed with a below-knee amputation. I will have him go to the hospital a day early for a direct admit and have the medical team evaluate him and have him cleared for surgery at that time. We discussed they will likely stay in the hospital for a day or 2 after surgery. Smoking cessation counseling was provided to the patient today. Several detrimental effects of long-term nicotine dependence were discussed, including but not limited to heart disease, lung disease, dental issues, decreased extremity blood flow and heightened risk of cancer. In addition, patients who smoke with concurrent pathologies such as, but not limited to rotator cuff disease, fractures, meniscus tears, cartilage damage, and soft tissue injuries who require surgery have worse outcomes with respect to healing capacity, overall functional result, and pain relief. I reviewed their specific pathology and how smoking is detrimental to their functional recovery for over 10 minutes. 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 Schedule for: 1.5 hours Admission Type: Patient to be direct admitted 1 day prior to surgery Medical Clearance: To be evaluated by medicine when direct admitted Antibiotic: Ancef 3 g Anesthesia: General + Regional Position and Table type: Supine on Regular OR table Radiology: None Electronically signed by Patti Durant MD [facility] Department of Orthopedic surgery 11/25/2024 10:31 AM Voice recognition was used for portions of this note and although it was reviewed prior to signing some incorrect words or phrases could be present. documented in this encounter [facility] 11-25-2024 Note [facility] - [address] [facility] [address] Dept: [phone] Dept Talia Ruby 1980 [id number] 11/25/2024 HISTORY OF PRESENT ILLNESS: Talia is a 43 y.o. male here today for evaluation of his right tibia/fibula fracture Talia states the problem has been present for 2 years Talia states the problem started as the result of an injury. It first fractured 2 years ago and then October 2023 it fractured again from a fall down some steps. He is taking ibuprofen for pain but isn't helping. He is using a wheelchair and crutches to get around. He is staying at a usp because he is homeless. He thinks it's related to his bone density. Talia has tried or has been treated with the following: modifying his activity level and avoiding those activities which aggravate the problem, NSAID's, walking aids (crutches, cane, a walker,knee scooter,wheelchair, etc), and bracing. The patient reports a history of a tibia fracture back in the late 90s and at that point had multiple surgeries to fix his leg fracture. At that time he endorses having infections that needed multiple surgeries to rid himself of the infections. Over the last 20 years he says that he had recurrent infection of his leg mostly in the soft tissue requiring surgery every few years and at one point requiring a muscle flap over top of his medial soft tissue.. More recently about 3 to 4 years ago he reports a minimally traumatic injury that caused his tibia to break again. This was treated nonoperatively and finally about a little over a year ago he had another injury causing his tibia and fibula to break. He had issues following up with his physicians and has been intermittently walking on his leg over this time. He reports increased deformity and pain. He is here to talk about his options since he is not functional on this leg. The patient offered up the idea of an amputation as he has been dealing with this injury for so many years with so many infections and he would like to have a definitive surgery to manage this. He currently lives at a facility as he was priorly homeless. He is a type II diabetic on insulin. 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 Review of Systems PAST MEDICAL HISTORY: Past Medical History: Diagnosis Date Asthma Bipolar disorder (HCC) Diabetes mellitus (HCC) ETOH abuse HTN (hypertension) Hyperlipidemia MAXIMO on CPAP PTSD (post-traumatic stress disorder) 2/2 witness suicide as a child T2DM (type 2 diabetes mellitus) ([facility]) Tobacco abuse Allergies Allergen Reactions Haldol [Haloperidol] Metformin Risperdal [Risperidone] PHYSICAL EXAM: There were no vitals filed for this visit. right Lower extremity Able to dorsiflex and plantarflex his ankle and toes with some discomfort Skin: Dry, well-healed scars and muscle flap over the anterior medial distal tibia with no gross erythema or signs of infection Inspection: Obvious deformity at the distal tibial shaft with palpable bony apex along the anterior leg causing a flexion deformity through the distal tibia and fibula. tenderness to palpation: Over top of the distal tibia at the level of the deformity swelling: Yes ecchymosis: No Sensation: Diminished but intact through the foot below the level of the deformity Pulses: Palpable DP: yes PT: No BCR to all digits RADIOGRAPHIC INTERPRETATION: 2 views of the tibia and fibula demonstrate a nonunion of the distal tibial shaft with about a 40 degree flexion angulation through the nonunion site, erosive bone at the nonunion site with sclerotic comminuted pieces. There is an associated malunited fibula fracture along the midshaft fibula with bridging bone that is similarly angulated to the tibia. REVIEW OF RELATED PREVIOUS DOCUMENTATION: Documents from Dr. Benavides were reviewed. LABORATORY RESULT INTERPRETATION: No labs were reviewed/No labs available for review DIAGNOSIS: Diagnosis Plan 1. 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 The patient has a very difficult problem of a nonunion of his right tibia which may or may not have a low-grade infection with his history of multiple skin infections required debridement and him endorsing the fact that he usually has a new infection that seems to appear every few years. 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 We discussed both operative and nonoperative management, the risks and benefits of both. We extensively went over his surgical options with limb salvage options consisting of a talar spatial frame versus i (more content not included)... [facility] 06-29-2024 Telephone encounter Note Received ed visit summary for psych issues from [facility]. Placed in provider's inbox for review. Route to MA scanning [facility] 06-29-2024 Miscellaneous Notes Received ed visit summary for psych issues from [facility]. Placed in provider's inbox for review. Route to MA scanning documented in this encounter [facility] 04-29-2024 Progress note Date of Service 04/29/2024 1 hour [id number] performed at 18:14. Patient resting comfortably in ED bed. Appears in no acute distress. Restraints currently off with security at bedside. Digitally Signed by HITESH GUTIERREZ DO on 04/29/2024 06:15 PM [facility] 04-29-2024 Note Discharge Instructions Thank you for allowing [facility] to assist you with your healthcare needs. The following is important discharge information regarding your hospital visit. What to Do Next Instructions from Your Care Team No qualifying data available. Post Acute Orders No qualifying data available. You Need to Schedule the Following Appointments Follow Up with JUJU MCKENNA, [facility] [place] When:Within 2-4 days Where:[address] [place] [address]- [phone] Allergies Haldol "psychotic hodan", insomnia RisperDAL tardive diskinesia, EPS metFORMIN Medications Please ask your primary doctor or pharmacist before taking any other medication not listed, including over the counter drugs, herbal medications, vitamins and or supplements as they may interact with your home medications. What How Much When Instructions Last Dose Unchanged acetaminophen (Tylenol 325 mg oral tablet) 2 tab(s) by mouth Every 6 hours as needed for pain 0-10 Unchanged albuterol-ipratropium (albuterol-ipratropium 2.5 mg-0.5 mg/ 3 mL inhalation solution) 3 Milliliter Nebulized inhalation Three (3) times a day as needed for as needed for shortness of breath or wheezing Unchanged divalproex sodium (divalproex sodium 500 mg oral tablet, extended release) 1 tab(s) by mouth Three (3) times a day Unchanged hydrocortisone topical (hydrocortisone 1% topical ointment) 1 application Topical Two (2) times a day Duration: 7 Days Unchanged ketoconazole topical (Nizoral A-D 1% topical shampoo) 1 application Topical Every Friday and Friday Unchanged levothyroxine (levothyroxine 50 mcg (0.05 mg) oral tablet) 1 tab(s) by mouth Before breakfast Unchanged melatonin (melatonin 5 mg oral tablet) 1 tab(s) by mouth Daily at bedtime Unchanged menthol topical (Biofreeze 4% topical gel) 1 application Topical Two (2) times a day Unchanged nicotine (Nicoderm CQ patch 14-7mg TAPER (Disch Rx)) Transdermal Every 24 hours Unchanged polyethylene glycol 3350 (MiraLax oral powder for reconstitution) 17 gram(s) by mouth Once a day Unchanged senna (senna (sennosides) 8.6 mg oral tablet) 1 tab(s) by mouth Two (2) times a day Unchanged ziprasidone (Geodon 20 mg oral capsule) 4 cap by mouth Twice daily with meals Please take this list to your next doctor s visit. Bring all medications you take, including over the counter medications, herbals and other supplements with you to your doctor s visit. Patients and families are reminded to discard old lists and to update any records with all medication providers or retail pharmacies. Education Materials Marijuana Abuse Marijuana is the most widely used illegal drug in the [place]. It is called by various names such as pot, weed, blunts, grass, reefer, ganja, hash, or hashish. It is usually smoked but can be mixed with foods, or brewed as a tea. It is sometimes sold with PCP (bladimir dust) or amphetamine mixed in it. These drugs can cause other harmful side effects. Marijuana can cause the following effects: Changes in mood (stimulated, happy, drowsy, depressed, paranoid) Hallucinations Increased heart rate and blood pressure Increased appetite Time distortion, difficulty concentrating, impaired memory Lung damage (similar to cigarettes with chronic cough, wheezing, frequent colds, and bronchitis) Decreased sperm count Dizziness, vertigo You can become psychologically dependent on marijuana. That means the craving to use the drug is emotional or psychological rather than due to physical withdrawal. Is marijuana running your life? Here are some of the signs: Relying on marijuana to feel good, forget problems, deal with stress or to relax Wanting to be alone most of the time or only with others who use drugs Losing interest in things that used to be important Changes in school or job performance or attendance Spending a lot of time thinking about how to get marijuana Stealing or selling your things so you can buy marijuana Unable to stop using even though you may want to quit Increasing anxiety, anger, or depression Sleeping too much, changes in eating habits (weight loss or gain) Needing to use more to get the same effect Home care The following suggestions will help you manage marijuana abuse: Once you have become addicted to any drug, quitting is hard to do. Most people find they can't quit without help. So, don t try to do this alone. Talk to someone you trust who can support you. Seek professional help. Avoid people and places where drugs are used. That only increases the temptation to use. Follow-up care Follow up with your healthcare provider, or as advised. For more information or a referral to a treatment center in your area, contact: Your local mental health center or the National Alcohol and Substance Abuse Information Center (284)-199-4029 www.addictioncareCylene Pharmaceuticalsions.com National [place] on Alcoholism and Drug Dependence 716-125-0457 www.ncadd.org Marijuana Anonymous 681-645-5869 www.marijuana-anonymous.org When to seek medical advice Call your healthcare provider right away if any of these occur: You feel extreme depression, fear, anxiety, or anger toward yourself or others. You feel out of control. You feel that you may try to harm yourself or another. You experience chest pain or shortness of breath. [phone] [employer]. [address] [place] [address], [place] [address]. All rights reserved. This information is not intended as a substitute for professional medical care. Always follow your healthcare professional's instructions. Additional Information VACCINATE! IT SAVES LIVES! Members of the community who have not yet received the COVID-19 vaccine and would like to receive it can visit one of [facility] vaccine clinics. There are many vaccine clinic locations within the [facility]. For locations and available times, please visit www.gettheshot.coronavirus.[place].gov /. It is important to note that some COVID mobile vaccine clinics are held outdoors and may be canceled in rainy or stormy conditions. To learn more about pediatric vaccinations (ages 5-11), we invite you to visit the [facility] webpage. [email or web address].[facility].org/page [email or web address]-Gengu-Envitergmyv-Frequently -Asked-Questions.html To learn more about the COVID-19 vaccine, we invite you to visit the CDC website for a list of frequently asked questions. https://www.cdc.gov/coronavirus/201 9-ncov/vaccines/faq.html [facility] Patient Portal Access Instructions: Stay connected with your healthcare team and access your personal medical information anytime with the [facility] Patient Portal. If you would like a full copy of your medical records please contact the [facility] Medical Records Department Friday through Friday between 8a.m. and 4:30p.m. Please follow the directions below to access the portal: 1.Access the email account you provided upon registration to the [facility].2.Look for an invitation email from [facility].3.Open the email and access the invitation link: Accept Invitation to [facility]4.Fill in the required chandler to create your account. Sign into [email or web address] with your username and password that you created in the above steps to stay up to date. You can then view a summary of results, a summary of your visits, and the ability to download your summaries to your computer or send the information securely to a physician. Remember that your healthcare information is confidential, so carefully consider who you will allow to register on the [facility] Patient Portal for access to your information. You can also access the [facility] Patient Portal on the [employer]. Simply click on "Health Records" under "Health Data" and then click on the [facility] logo. HOW TO SAFELY DISPOSE OF PRESCRIPTION MEDICATIONS Please use one of the following methods to safely dispose of your unused medications. 1.Use a drug disposal kit: the drug disposal pouch allows you to safely discard your old and unused drugs. Ask your nurse to give you one when you are discharged.2.Visit a local take-back location: Many local pharmacies and police departments have programs that collect old and unwanted prescription drugs. Call your local pharmacy or go to http://Popularo.Truckily/1Q1Kw0a to find one close to you.3.Make use of household items: Use cat litter or old coffee grounds to dispose medications if other options are not available. Mix your drugs with these household products, seal them in an airtight container and throw it into the garbage. Call [facility]: [phone] to be sure your drugs can be disposed of in this way. Some medicines may require a different approach.4.Never flush your medications down the toilet. IF YOU HAVE BEEN PRESCRIBED AN OPIOIDS FOR PAIN If you have been prescribed an opioid (such as hydrocodone, oxycodone or morphine), it is critical to understand the possible side effects and risks of opioid pain medications. Even when taken as directed, opioids can have several side effects including: Tolerance, meaning you might need to take more of a medication for the same pain relief. Nausea, vomiting and/or constipation. Sleepiness, dizziness, dry mouth, confusion, depression or itching. Physical dependence, meaning you have withdrawal symptoms when a medication is stopped ? this can develop within a few days. KNOW YOUR RESPONSIBILITIES It is important to know exactly how much and how often to take the opioid pain medications you are prescribed. Never take opioids in higher amounts or more often than prescribed. Do not combine opioids with alcohol or other drugs that cause drowsiness, such as benzodiazepines, also known as benzos, including diazepam and alprazolam, muscle relaxants or sleep aids. Never sell or share prescription opioids. This is illegal. Store opioids in a secure place and out of reach of others (including children, family, friends and visitors). The last page(s) of this document has been signed and retained as a CHART COPY Signatures Patient Education Materials Marijuana Abuse Medication Leaflets My discharge plan and instructions have been reviewed and explained to me and I,TALIA RUBY understand my current condition and have read and understand these discharge instructions. I have received a written copy of the plan/instructions. If I have questions, I am aware that I should contact my doctor. Patient/Board Attendant Signature: ____ Date/Time: Relationship to Patient: __ Witness Name/Signature: Date/Time: [facility] [place] 04-29-2024 Hospital Discharge instructions Patient Education 04/28/2024 22:30:28 Marijuana Abuse Marijuana Abuse Marijuana is the most widely used illegal drug in the [place]. It is called by various names such as pot, weed, blunts, grass, reefer, ganja, hash, or hashish. It is usually smoked but can be mixed with foods, or brewed as a tea. It is sometimes sold with PCP (bladimir dust) or amphetamine mixed in it. These drugs can cause other harmful side effects. Marijuana can cause the following effects: Changes in mood (stimulated, happy, drowsy, depressed, paranoid) Hallucinations Increased heart rate and blood pressure Increased appetite Time distortion, difficulty concentrating, impaired memory Lung damage (similar to cigarettes with chronic cough, wheezing, frequent colds, and bronchitis) Decreased sperm count Dizziness, vertigo You can become psychologically dependent on marijuana. That means the craving to use the drug is emotional or psychological rather than due to physical withdrawal. Is marijuana running your life? Here are some of the signs: Relying on marijuana to feel good, forget problems, deal with stress or to relax Wanting to be alone most of the time or only with others who use drugs Losing interest in things that used to be important Changes in school or job performance or attendance Spending a lot of time thinking about how to get marijuana Stealing or selling your things so you can buy marijuana Unable to stop using even though you may want to quit Increasing anxiety, anger, or depression Sleeping too much, changes in eating habits (weight loss or gain) Needing to use more to get the same effect Home care The following suggestions will help you manage marijuana abuse: Once you have become addicted to any drug, quitting is hard to do. Most people find they can't quit without help. So, don t try to do this alone. Talk to someone you trust who can support you. Seek professional help. Avoid people and places where drugs are used. That only increases the temptation to use. Follow-up care Follow up with your healthcare provider, or as advised. For more information or a referral to a treatment center in your area, contact: Your local mental health center or the National Alcohol and Substance Abuse Information Center (178)-324-7987 www.addictioncareoptions.com National [place] on Alcoholism and Drug Dependence 102-467-1454 www.ncadd.org Marijuana Anonymous 415-723-6401 www.marijuana-anonymous.org When to seek medical advice Call your healthcare provider right away if any of these occur: You feel extreme depression, fear, anxiety, or anger toward yourself or others. You feel out of control. You feel that you may try to harm yourself or another. You experience chest pain or shortness of breath. [phone] [employer]. [address] [place] [address], [place] [address]. All rights reserved. This information is not intended as a substitute for professional medical care. Always follow your healthcare professional's instructions. Follow Up Care 04/28/2024 21:44:19 With:JUJU MCKENNA, KING STRICKLAND Address: [address] [place] [address] [place] [address]- [phone] When:2-4 days [facility] [place] 04-28-2024 Note Sinus rhythm Electronic Signature: ELIAN BURKS DO 04/28/2024 22:08:32 [facility] [place] 03-29-2024 Telephone encounter Note Spoke with nurse Dasha and notified her no further treatment is needed at this time to monitor. [facility] 03-29-2024 Miscellaneous Notes Spoke with nurse Dasha and notified her no further treatment is needed at this time to monitor. Images reviewed with Dr. Pa. No further treatment needed at this time. R hand healing well. Continue to monitor RLE. July MARQUIS PA-C [facility] [place] e-mailed me pictures of his left hand RLE please see attached photos in the TE thread for your review. Sending to July too since Myra is out of the office today. Called [facility] [employer] [facility] and spoke with Rafy and asked if he can send the picture to my work e-mail address. Explained to him Holly from their facility sent the pictures via fax but we are unable to make out the pictures since they are black and white. My e-mail address was given to Rafy and he stated he will try to get those pictures over to me. He mentioned that they have an infectious disease nurse on staff there too. Pictures of the the L hand and RLE received via fax but hard to make out due to the quality from the fax. Sent another fax to Holly @ [facility] requesting she e-mail me the pictures for better quality. Received call back from Holly with [facility] and she stated they need a release requesting the photos since the patient did not come from our hospital even though we were the treating provider for the infection. Faxed on our fax cover letter requesting pictures of his L hand and RLE. Faxed to [phone] Spoke to Holly with [facility] and asked if she can email me updated pictures of his L hand and RLE. My email address was provided. Holly will call be back if she is unable to send the pictures. Pt scheduled for EOT follow up with our office at 230pm today. No show. Our office called facility, was informed he had a malfunctioning PICC line on 03/12 and had that PICC line replaced at [facility]. We were not notified of this previously. Facility also states patient was given final dose of abx today and had PICC line removed. Of note, ID did not give orders for PICC line removal prior to EOT evaluation. He was then transferred to a behavioral health center today. Our office to call and get updated wound photos of L hand RLE to ensure no new infectious concerns. Will follow. documented in this encounter [facility] 03-26-2024 Telephone encounter Note Images reviewed with Dr. Pa. No further treatment needed at this time. R hand healing well. Continue to monitor RLE. July MARQUIS PA-C [facility]: 03-26-2024 Miscellaneous Notes Images reviewed with Dr. Pa. No further treatment needed at this time. R hand healing well. Continue to monitor RLE. July MARQUIS PA-C [facility] e-mailed me pictures of his left hand RLE please see attached photos in the TE thread for your review. Sending to Riley too since Myra is out of the office today. Called [facility] and spoke with Rafy and asked if he can send the picture to my work e-mail address. Explained to him Holly from their facility sent the pictures via fax but we are unable to make out the pictures since they are black and white. My e-mail address was given to Rafy and he stated he will try to get those pictures over to me. He mentioned that they have an infectious disease nurse on staff there too. Pictures of the the L hand and RLE received via fax but hard to make out due to the quality from the fax. Sent another fax to Holly @ [facility] requesting she e-mail me the pictures for better quality. Received call back from Holly with [facility] and she stated they need a release requesting the photos since the patient did not come from our hospital even though we were the treating provider for the infection. Faxed on our fax cover letter requesting pictures of his L hand and RLE. Faxed to [phone] Spoke to Holly with [facility] and asked if she can email me updated pictures of his L hand and RLE. My email address was provided. Holly will call be back if she is unable to send the pictures. Pt scheduled for EOT follow up with our office at 230pm today. No show. Our office called facility, was informed he had a malfunctioning PICC line on 03/12 and had that PICC line replaced at [facility]. We were not notified of this previously. Facility also states patient was given final dose of abx today and had PICC line removed. Of note, ID did not give orders for PICC line removal prior to EOT evaluation. He was then transferred to a behavioral health center today. Our office to call and get updated wound photos of L hand RLE to ensure no new infectious concerns. Will follow. documented in this encounter [facility] 03-26-2024 Telephone encounter Note [facility] e-mailed me pictures of his left hand RLE please see attached photos in the TE thread for your review. Sending to Riley too since Myra is out of the office today. [facility] 03-25-2024 Telephone encounter Note Received admission/discharge summary from Stephanie. Placed in provider's inbox for review. Route to ND scanning [facility] 03-25-2024 Miscellaneous Notes Received admission/discharge summary from Stephanie. Placed in provider's inbox for review. Route to MA scanning documented in this encounter [facility] 03-25-2024 Telephone encounter Note Called [facility] and spoke with Rafy and asked if he can send the picture to my work e-mail address. Explained to him Holly from their facility sent the pictures via fax but we are unable to make out the pictures since they are black and white. My e-mail address was given to Rafy and he stated he will try to get those pictures over to me. He mentioned that they have an infectious disease nurse on staff there too. [facility] 03-25-2024 Miscellaneous Notes Called [facility] and spoke with Rafy and asked if he can send the picture to my work e-mail address. Explained to him Holly from their facility sent the pictures via fax but we are unable to make out the pictures since they are black and white. My e-mail address was given to Rafy and he stated he will try to get those pictures over to me. He mentioned that they have an infectious disease nurse on staff there too. Pictures of the the L hand and RLE received via fax but hard to make out due to the quality from the fax. Sent another fax to Holly @ [facility] requesting she e-mail me the pictures for better quality. Received call back from Holly with [facility] and she stated they need a release requesting the photos since the patient did not come from our hospital even though we were the treating provider for the infection. Faxed on our fax cover letter requesting pictures of his L hand and RLE. Faxed to [phone] Spoke to Holly with [facility] and asked if she can email me updated pictures of his L hand and RLE. My email address was provided. Holly will call be back if she is unable to send the pictures. Pt scheduled for EOT follow up with our office at 230pm today. No show. Our office called facility, was informed he had a malfunctioning PICC line on 03/12 and had that PICC line replaced at [facility]. We were not notified of this previously. Facility also states patient was given final dose of abx today and had PICC line removed. Of note, ID did not give orders for PICC line removal prior to EOT evaluation. He [facility] then [facility]. Our office to call and get updated wound photos of L hand RLE to ensure no new infectious concerns. Will follow. documented in this encounter [facility] 03-25-2024 Telephone encounter Note Pictures of the the L hand and RLE received via fax but hard to make out due to the quality from the fax. Sent another fax to Holly @ [facility] requesting she e-mail me the pictures for better quality. [facility] 03-24-2024 Discharge summary Date of Service 03/24/2024 Discharge Diagnosis 1. Acute left hand infection. Patient completed antibiotics as recommended by infectious disease specialist. Outpatient follow up with orthopedic surgery and infectious disease. 2. Chronic schizoaffective disorder. 3. Chronic acquired hypothyroidism. Hospital Course Patient is a 43-year-old male was admitted to [facility] on 03/11/2024 after losing IV access. Patient was recently seen at [facility] where I&D of the left hand was performed that showed MSSA. PICC line was placed with patient to complete a 1 month course of cefazolin to continue through 03/24/2024. Evaluation of the hand shows the wound has healed. Psychiatry was consulted for schizoaffective disorder for which referrals have been made for inpatient psychiatric facility. Patient completed antibiotics as of 03/24/2024. At that time, patient was accepted at [facility]. Allergies Haldol "psychotic hodan", insomnia RisperDAL tardive diskinesia, EPS metFORMIN Procedures None. Consults 1. Dr. Lisa Mendosa, psychiatry. Consultation for schizoaffective disorder. 2. Dr. Kj Garza, infectious disease. Consultation for left hand infection. Imaging Results and Diagnostics XR Chest 1 View Result Date: March 11, 2024 Verified By: TOD CALDERÓN MD CLINICAL STATEMENT: IMPRESSION: No PICC line identified. Correlate with physical exam/site of reported PICC line insertion. Physical Exam Vitals and Measurements T: 36.5 C (Oral) HR: 85 RR: 16 BP: 148/87 SpO2: 97% No qualifying data available. GENERAL: No acute distress. MOUTH: Moist membranes. NECK: Supple. CARDIOVASCULAR: S1 S2 heard, regular rate and rhythm, no murmurs. No JVD, no edema. RESPIRATORY: Clear to auscultation bilaterally. ABDOMEN: Soft, nontender, nondistended, no rebound or guarding, bowel sounds present in all 4 quadrants. INTEGUMENTARY: Left hand dressing clean, dry and intact. NEUROLOGIC: Awake, alert and oriented x3, no focal neurologic deficits. PSYCHIATRIC: Improved mood following removal of restraints. Pending Labs and Studies None. Code Status Full Code. Admission Date 03/11/2024 Discharge Date 03/24/2024 Medications New Prescription nicotine (Nicoderm CQ patch 14-7mg TAPER (Disch Rx))Transdermal every 24 hours. Changed LORazepam (LORazepam 0.5 mg oral tablet)1 tab(s) by mouth three (3) times a day for 1 Days. Refills: 0. divalproex sodium (divalproex sodium 500 mg oral tablet, extended release)1 tab(s) by mouth three (3) times a day. oxyCODONE (oxyCODONE 5 mg oral tablet ( IMMEDIATE release ))1 tab(s) by mouth every 6 hours for 1 Days. Refills: 0. ziprasidone (Geodon 20 mg oral capsule)4 cap by mouth twice daily with meals. Unchanged acetaminophen (Tylenol 325 mg oral tablet)2 tab(s) by mouth every 6 hours as needed pain 0-10. albuterol-ipratropium (albuterol-ipratropium 2.5 mg-0.5 mg/3 mL inhalation solution)3 Milliliter Nebulized inhalation three (3) times a day as needed as needed for shortness of breath or wheezing. hydrocortisone topical (hydrocortisone 1% topical ointment)1 application Topical two (2) times a day for 7 Days. ketoconazole topical (Nizoral A-D 1% topical shampoo)1 application Topical every Friday and Friday. levothyroxine (levothyroxine 50 mcg (0.05 mg) oral tablet)1 tab(s) by mouth before breakfast. melatonin (melatonin 5 mg oral tablet)1 tab(s) by mouth daily at bedtime. menthol topical (Biofreeze 4% topical gel)1 application Topical two (2) times a day. polyethylene glycol 3350 (MiraLax oral powder for reconstitution)17 gram(s) by mouth once a day. senna (senna (sennosides) 8.6 mg oral tablet)1 tab(s) by mouth two (2) times a day. Discontinued ceFAZolin (ceFAZolin 2 g injection)2 gram(s) Intravenous every 8 hours for 21 Days. traZODone (traZODone 50 mg oral tablet)1 tab(s) by mouth daily at bedtime. Follow Up Follow Up with JUJU MCKENNA, KING STRICKLAND Where:[address] [place] [address]- [phone] Additional Information: 1-2 weeks Follow Up with ANSELMO PA Where:[address] [address] [phone] Additional Information: 1-2 weeks Follow Up with MICHA FISCHER MD, Orthopedic Where:[facility] [id number] [place] [address]- [phone] Additional Information: 1-2 weeks Follow Up Labs/Studies 1. No follow up labs. 2. No follow up studies. Discharge Diet No changes were made to your diet during your hospital stay. Please resume your pre hospitalization diet on discharge. Discharge Activity Non-weight bearing left hand. Condition on Discharge Stable. Discharge Disposition [facility]. Time Spent 37 minutes spent on discharge with discharge planning and counseling. Digitally Signed by MONROE CRUZ DO on 03/24/2024 04:18 PM [facility] 03-24-2024 Telephone encounter Note Received call back from Holly with [facility] and she stated they need a release requesting the photos since the patient did not come from our hospital even though we were the treating provider for the infection. Faxed on our fax cover letter requesting pictures of his L hand and RLE. Faxed to [phone] [facility] 03-24-2024 Miscellaneous Notes Received call back from Holly with [facility] and she stated they need a release requesting the photos since the patient did not come from our hospital even though we were the treating provider for the infection. Faxed on our fax cover letter requesting pictures of his L hand and RLE. Faxed to [phone] Spoke to Holly with [facility] and asked if she can email me updated pictures of his L hand and RLE. My email address was provided. Holly will call be back if she is unable to send the pictures. Pt scheduled for EOT follow up with our office at 230pm today. No show. Our office called facility, was informed he had a malfunctioning PICC line on 03/12 and had that PICC line replaced at [facility]. We were not notified of this previously. Facility also states patient was given final dose of abx today and had PICC line removed. Of note, ID did not give orders for PICC line removal prior to EOT evaluation. He was then transferred to a behavioral health center today. Our office to call and get updated wound photos of L hand RLE to ensure no new infectious concerns. Will follow. documented in this encounter [facility] 03-24-2024 Telephone encounter Note Spoke to Holly with [facility] and asked if she can email me updated pictures of his L hand and RLE. My email address was provided. Holly will call be back if she is unable to send the pictures. [facility] 03-24-2024 Telephone encounter Note Pt scheduled for EOT follow up with our office at 230pm today. No show. Our office called facility, was informed he had a malfunctioning PICC line on 03/12 and had that PICC line replaced at [facility]. We were not notified of this previously. Facility also states patient was given final dose of abx today and had PICC line removed. Of note, ID did not give orders for PICC line removal prior to EOT evaluation. He was then transferred to a behavioral health center today. Our office to call and get updated wound photos of L hand RLE to ensure no new infectious concerns. Will follow. [facility] 03-24-2024 Hospital Discharge instructions Patient Education 03/24/2024 12:53:12 Psychosis Psychosis Psychosis, also called thought disturbance, refers to a severe loss of contact with reality. People having a psychotic episode are not able to think clearly, and their emotions and responses do not match with what is actually happening. People having a psychotic episode may have false beliefs about what is happening or who they are (delusions). They may see, hear, taste, smell, or feel things that are not present (hallucinations). They may also be very upset (agitated), have chaotic behavior, or be very quiet and withdrawn. What are the causes? This condition may be caused by: Very serious mental health (psychiatric) conditions such as schizophrenia, bipolar disorder, or major depression. Use of drugs such as hallucinogens or alcohol. Medical conditions such as delirium or neurological disorders. What are the signs or symptoms? Symptoms of this condition include: Delusions, such as: ?Feeling a lot of fear or suspicion (paranoia). ?Believing something that is odd, unrealistic, or false, such as believing that you are someone else. Hallucinations, such as: ?Hearing or seeing things, smelling odors, experiencing tastes, or feeling bodily sensations. ?Command hallucinations that direct you to do something that could be dangerous. Disorganized thinking, such as thoughts that jump from one idea to another in a way that does not make sense. Disorganized speech, such as saying things that do not make sense, echoing others, or using words based on their sound rather than their meaning. Inappropriate behavior, such as talking to yourself, showing a clear increase or decrease in activity, or intruding on unfamiliar people. How is this diagnosed? This condition is diagnosed based on an assessment by a health care provider. The health care provider may ask questions about: ?Your thoughts, feelings, and behavior. ?Any medical conditions you have. ?Any use of alcohol or drugs. One or more of the following may also be done: ?A physical exam. ?Blood tests. ?Brain imaging, such as a CT scan or MRI. ?A brain wave study (electroencephalogram, or EEG). The health care provider may refer you to a mental health professional for further tests. How is this treated? Treatment for this condition may depend on the cause of the psychosis. Treatment may include one or more of the following: Supportive care and monitoring in the emergency room or hospital. You may need to stay in the hospital if you are a danger to yourself or others. Taking antipsychotic medicines to reduce symptoms and to balance chemicals in the brain. Treating an underlying medical condition. Stopping or reducing drugs that are causing psychosis. Therapy and other supportive programs, such as: ?Ongoing treatment and care from a mental health professional. ?Individual or family therapy. ?Training to learn new skills to cope with the psychosis and prevent further episodes. Follow these instructions at home: Take ppte-tjj-mngxnpr and prescription medicines only as told by your health care provider. Consult a health care provider before taking wxkm-fja-wpqgnkz medicines, herbs, or supplements. Surround yourself with people who care about you and can help manage your condition. Keep stress under control. Stress may trigger psychosis and make symptoms worse. Maintain a healthy lifestyle. This includes: ?Eating a healthy diet. ?Getting enough sleep. ?Exercising regularly. ?Avoiding alcohol, nicotine, and recreational drugs. Keep all follow-up visits as told by your health care provider. This is important. Contact a health care provider if: Medicines do not seem to be helping. You or others notice that you: ?Continue to see, smell, or feel things that are not there. ?Hear voices telling you to do things. ?Feel extremely fearful and suspicious that someone or something will harm you. ?Feel unable to leave your house. ?Have trouble taking care of yourself. You have side effects of medicines, such as: ?Changes in sleep patterns. ?Dizziness. ?Weight gain. ?Restlessness. ?Movement changes. ?Shaking that you cannot control (tremors). Get help right away if: You have serious side effects of medicine, such as: ?Swelling of the face, lips, tongue, or throat. ?Fever, confusion, muscle spasms, or seizures. You have serious thoughts about harming yourself or hurting others. If you ever feel like you may hurt yourself or others, or have thoughts about taking your own life, get help right away. You can go to your nearest emergency department or call: Your local emergency services (911 in the [place] A suicide crisis helpline, such as the National Suicide Prevention Lifeline at . This is open 24 hours a day. Summary Psychosis refers to a severe loss of contact with reality. People having a psychotic episode are not able to think clearly, and they may have delusions or hallucinations. Psychosis is a serious medical condition that should be treated by a medical professional as soon as possible. Being checked and treated right away can stop or reduce symptoms. This prevents more serious problems from developing. In some cases, treatment may include taking antipsychotic medicines to reduce symptoms and to balance chemicals in the brain. Support programs may help you learn new skills to cope with the psychosis and prevent further episodes. This information is not intended to replace advice given to you by your health care provider. Make sure you discuss any questions you have with your health care provider. Document Released: 03/05/2011 Document Revised: 11/27/2018 Document Reviewed: 10/27/2018 [employer] Patient Education 2020 [employer]. Follow Up Care 03/11/2024 17:16:44 With:KING MATUTE MD Address: [address] [place] [address] [phone] When: Unknown Comments:1-2 weeks With:ANSELMO PA Address: [address] [place] [address] [place] [phone] When: Unknown Comments:1-2 weeks With:MICHA FISCHER MD, Orthopedic Address: [address] [address] [phone] When: Unknown Comments:1-2 weeks [facility] 03-24-2024 Note Discharge Instructions Thank you for allowing [facility] to assist you with your healthcare needs. The following is important discharge information regarding your hospital visit. Your Care Team JUJU MCKENNA, KING STRICKLAND Your Diagnosis Infection of hand Schizoaffective disorder What to do next Follow Up Appointments Follow Up with KING MATUTE MD Where:[address] [place] [address] [phone] Additional Information: 1-2 weeks Follow Up with ANSELMO PA Where:[address] [address] [phone] Additional Information: 1-2 weeks Follow Up with MICHA FISCHER MD, Orthopedic Where:[address] [address] [phone] Additional Information: 1-2 weeks The Following Activity and Diet Have Been Ordered for You Discharge Activity - Discontinued -- Activity As Tolerated, 03/24/24 12:42:00 EDT Discharge Activity - Ordered -- Other, Nonweight bearing left hand., 03/24/24 12:49:00 EDT Discharge Diet - Ordered -- No changes were made to your diet during your hospital stay. Please resume your pre hospitalization diet on discharge., 03/24/24 12:42:00 EDT The Following Equipment Has Been Ordered for You No qualifying data available. The Following Treatments Have Been Ordered for You Discharge Labs No qualifying data available. Discharge Radiology No qualifying data available. Other Therapies No qualifying data available. Post Acute Orders No qualifying data available. Someone Will Contact You Regarding These Home Health Referrals No home referrals have been ordered for you. No one will call you. Allergies Haldol "psychotic hodan", insomnia RisperDAL tardive diskinesia, EPS metFORMIN Medications Please ask your primary doctor or pharmacist before taking any other medication not listed, including over the counter drugs, herbal medications, vitamins and or supplements as they may interact with your home medications. What How Much When Why Instructions Last Dose New nicotine (Nicoderm CQ patch 14-7mg TAPER (Disch Rx)) Transdermal Every 24 hours Changed LORazepam (LORazepam 0.5 mg oral tablet) 1 tab(s) by mouth Three (3) times a day Schizoaffective disorder Duration: 1 Days Printed Prescription Changed divalproex sodium (divalproex sodium 500 mg oral tablet, extended release) 1 tab(s) by mouth Three (3) times a day Changed oxyCODONE (oxyCODONE 5 mg oral tablet ( IMMEDIATE release )) 1 tab(s) by mouth Every 6 hours Infection of hand Duration: 1 Days Printed Prescription Changed ziprasidone (Geodon 20 mg oral capsule) 4 cap by mouth Twice daily with meals Unchanged acetaminophen (Tylenol 325 mg oral tablet) 2 tab(s) by mouth Every 6 hours as needed for pain 0-10 Unchanged albuterol-ipratropium (albuterol-ipratropium 2.5 mg-0.5 mg/ 3 mL inhalation solution) 3 Milliliter Nebulized inhalation Three (3) times a day as needed for as needed for shortness of breath or wheezing Unchanged hydrocortisone topical (hydrocortisone 1% topical ointment) 1 application Topical Two (2) times a day Duration: 7 Days Unchanged ketoconazole topical (Nizoral A-D 1% topical shampoo) 1 application Topical Every Friday and Friday Unchanged levothyroxine (levothyroxine 50 mcg (0.05 mg) oral tablet) 1 tab(s) by mouth Before breakfast Unchanged melatonin (melatonin 5 mg oral tablet) 1 tab(s) by mouth Daily at bedtime Unchanged menthol topical (Biofreeze 4% topical gel) 1 application Topical Two (2) times a day Unchanged polyethylene glycol 3350 (MiraLax oral powder for reconstitution) 17 gram(s) by mouth Once a day Unchanged senna (senna (sennosides) 8.6 mg oral tablet) 1 tab(s) by mouth Two (2) times a day What How Much When Comments Stop Taking ceFAZolin (ceFAZolin 2 g injection) 2 gram(s) Intravenous Every 8 hours Duration: 21 Days Stop Taking traZODone (traZODone 50 mg oral tablet) 1 tab(s) by mouth Daily at bedtime Please take this list to your next doctor s visit. Bring all medications you take, including over the counter medications, herbals and other supplements with you to your doctor s visit. Patients and families are reminded to discard old lists and to update any records with all medication providers or retail pharmacies. Medication Leaflets lorazepam (oral) (mindy A ze nate) Ativan, Lorazepam Intensol, Loreev XR What is the most important information I should know about lorazepam? Lorazepam can slow or stop your breathing, especially if you have recently used an opioid medication or alcohol. MISUSE OF THIS MEDICINE CAN CAUSE ADDICTION, OVERDOSE, OR . Keep this medicine where others cannot get to it. You may have withdrawal symptoms if you stop using lorazepam suddenly. Ask your doctor before stopping the medicine. What is lorazepam? Lorazepam is used in adults and children at least 12 years old to treat anxiety disorders. Extended-release lorazepam is used in adults to treat anxiety disorders. Lorazepam may also be used for purposes not listed in this medication guide. What should I discuss with my healthcare provider before taking lorazepam? You should not use lorazepam if you have: narrow-angle glaucoma; or a history of allergic reaction to any benzodiazepine (lorazepam, alprazolam, diazepam, Valium, Xanax, Versed, Klonopin, and others). Tell your doctor if you have ever had: asthma, chronic obstructive pulmonary disease (COPD), sleep apnea, or other breathing disorder; drug or alcohol addiction; depression, mental illness or psychosis, mood changes, or suicidal thoughts or actions; seizures; an allergy to aspirin or yellow food dye; or kidney or liver disease. Tell your doctor if you are or plan to become . If you use lorazepam during , your baby could be born with life-threatening withdrawal symptoms, and may need medical treatment for several weeks. If you are , your name may be listed on a registry to track the effects of lorazepam on the baby. You should not breastfeed. If you do breastfeed, tell your doctor if you notice drowsiness, feeding problems, or slow weight gain in the nursing baby. How should I take lorazepam? Follow the directions on your prescription label and read all medication guides or instruction sheets. Never use lorazepam in larger amounts, or for longer than prescribed. Tell your doctor if you feel an increased urge to use more of this medicine. Never share this medicine with another person, especially someone with a history of drug addiction. MISUSE CAN CAUSE ADDICTION, OVERDOSE, OR . Keep the medicine where others cannot get to it. Selling or giving away this medicine is against the law. Measure the oral concentrate (liquid) with the supplied measuring device (not a kitchen spoon). Mix the liquid with water, juices, soda or soda-like beverages, or with semi-solid foods such as applesauce or puddings. Swallow this mixture right away. Swallow the extended-release capsule whole and do not crush, chew, break, or open it. If you cannot swallow a capsule whole, open it and mix the medicine with applesauce. Swallow the mixture right away without chewing. Do not stop using lorazepam without asking your doctor. You may have life-threatening withdrawal symptoms if you stop using the medicine suddenly after long-term use. Store tightly closed at room temperature, away from moisture and heat. Store the liquid form of lorazepam in the refrigerator. Throw away any liquid not used within 90 days. Keep your medicine in a place where no one can use it improperly. What happens if I miss a dose? Take the medicine as soon as you can, but skip the missed dose if it is almost time for your next dose. Do not take two doses at one time. What happens if I overdose? Seek emergency medical attention or call the Poison Help line at . An overdose of lorazepam can be fatal if you also drink alcohol or use other drugs that cause drowsiness or slow breathing. Overdose symptoms may include severe drowsiness, confusion, slurred speech, feeling restless, muscle weakness, loss of balance or coordination, feeling light-headed, slow heartbeats, weak or shallow breathing, or coma. What should I avoid while taking lorazepam? Do not drink alcohol. Dangerous side effects or could occur. Avoid driving or hazardous activity until you know how this medicine will affect you. Dizziness or drowsiness can cause falls, accidents, or severe injuries. What are the possible side effects of lorazepam? Get emergency medical help if you have signs of an allergic reaction: hives; difficulty breathing; swelling of your face, lips, tongue, or throat. Lorazepam can slow or stop your breathing, especially if you have recently used an opioid medication or alcohol. A person caring for you should seek emergency medical attention if you have slow breathing with long pauses, blue colored lips, or if you are hard to wake up. Call your doctor at once if you have: severe drowsiness; unusual changes in mood or behavior, being agitated or talkative; sudden restless feeling or excitement; seizures, depression, thinking problems, thoughts of suicide or hurting yourself; confusion, aggression, hallucinations; sleep problems (insomnia); vision changes; or dark urine, or jaundice (yellowing of the skin or eyes). Drowsiness or dizziness may last longer in older adults. Use caution to avoid falling or accidental injury. Common side effects may include: dizziness, sedation, drowsiness; weakness; or feeling unsteady. You will need frequent blood tests to check your blood counts and liver function. After you stop using lorazepam, seek medical help right away if you have symptoms such as: unusual muscle movements, being more active or talkative, sudden and severe changes in mood or behavior, confusion, hallucinations, seizures, suicidal thoughts or actions. Some withdrawal symptoms may last up to 12 months or longer after stopping this medicine suddenly. Tell your doctor if you have ongoing anxiety, depression, problems with memory or thinking, trouble sleeping, ringing in your ears, a burning or prickly feeling, or a crawling sensation under your skin. This is not a complete list of side effects and others may occur. Call your doctor for medical advice about side effects. You may report side effects to FDA at 1-957-QDQ-8515. What other drugs will affect lorazepam? Taking lorazepam with other drugs that slow your breathing can cause dangerous side effects or . Ask your doctor before using opioid medication, a sleeping pill, a muscle relaxer, or medicine for anxiety or seizures. Tell your doctor about all your other medicines, especially: valproate, probenecid, aminophylline, or theophylline; medicine to treat mental illness; or medicine that contains an antihistamine (such as sleep medicine, cold or allergy medicine). This list is not complete and many other drugs may affect lorazepam. This includes prescription and bent-lhj-ryexhys medicines, vitamins, and herbal products. Not all possible drug interactions are listed here. Where can I get more information? Your doctor or pharmacist can provide more information about lorazepam. Remember, keep this and all other medicines out of the reach of children, never share your medicines with others, and use this medication only for the indication prescribed. Every effort has been made to ensure that the information provided by [employer]. [employer] is accurate, up-to-date, and complete, but no guarantee is made to that effect. Drug information contained herein may be time sensitive. [employer] information has been compiled for use by healthcare practitioners and consumers in the [place] and therefore [employer] does not warrant that uses outside of the [place] are appropriate, unless specifically indicated otherwise. [employer] drug information does not endorse drugs, diagnose patients or recommend therapy. [employer] drug information is an informational resource designed to assist licensed healthcare practitioners in caring for their patients and/or to serve consumers viewing this service as a supplement to, and not a substitute for, the expertise, skill, knowledge and judgment of healthcare practitioners. The absence of a warning for a given drug or drug combination in no way should be construed to indicate that the drug or drug combination is safe, effective or appropriate for any given patient. [employer] does not assume any responsibility for any aspect of healthcare administered with the aid of information [employer] provides. The information contained herein is not intended to cover all possible uses, directions, precautions, warnings, drug interactions, allergic reactions, or adverse effects. If you have questions about the drugs you are taking, check with your doctor, nurse or pharmacist. Copyright 6979-9749 [employer]. Version: 10.04. Revision Date: 02/17/2023. oxycodone (ox i KOE done) Oxaydo, OxyCONTIN, Roxicodone, RoxyBond, Xtampza ER What is the most important information I should know about oxycodone? MISUSE OF OPIOID MEDICINE CAN CAUSE ADDICTION, OVERDOSE, OR . Fatal side effects may occur if you also drink alcohol or use other drugs that cause drowsiness or slow breathing. Using opioid medicine during may cause life-threatening withdrawal symptoms in the . What is oxycodone? Oxycodone is an opioid pain medication used to treat moderate to severe pain. Oxycodone is usually given after other treatments did not work or were not tolerated. Extended-release oxycodone is for smsyre-keb-sdwgl treatment of severe and chronic pain that requires longer treatment. This medicine is not for use on an as-needed basis. Oxycodone may also be used for purposes not listed in this medication guide. What should I discuss with my healthcare provider before taking oxycodone? You should not use oxycodone if you are allergic to it, or if you have severe asthma, breathing problems or a stomach or bowel obstruction (including paralytic ileus). Tell your doctor if you have ever had: other breathing problems, sleep apnea (breathing that stops during sleep); a head injury, brain tumor, high pressure inside the skull, or seizures, drug or alcohol addiction, or mental illness; if you have used an MAO inhibitor in the past 14 days, such as isocarboxazid, linezolid, methylene blue injection, phenelzine, or tranylcypromine; urination problems, problems with your gallbladder, pancreas, thyroid, or adrenal gland; or liver or kidney disease. Most forms of oxycodone are not approved for use in people under 18 years old. The extended-release tablets should not be given to a child younger than 11 years old. Tell your doctor if you also use stimulant medicine, opioid medicine, herbal products, or medicine for depression, mental illness, Parkinson's disease, migraine headaches, serious infections, or prevention of nausea and vomiting. An interaction with oxycodone could cause a serious condition called serotonin syndrome. May harm an unborn baby. Tell your doctor if you are or plan to become . If you use oxycodone during , your baby could be born with life-threatening withdrawal symptoms, and may need medical treatment for several weeks. Do not breastfeed. Oxycodone in breast milk can cause life-threatening side effects in a nursing baby. Long-term oxycodone may affect fertility in men or women. could be harder to achieve while either parent is using this medicine. How should I take oxycodone? Follow the directions on your prescription label and read all medication guides or instruction sheets. Never use oxycodone in larger amounts, or for longer than prescribed. Tell your doctor if you feel an increased urge to use more of this medicine. Never share opioid medicine with another person, especially someone with a history of drug addiction. MISUSE CAN CAUSE ADDICTION, OVERDOSE, OR . Keep the medicine where others cannot get to it. Selling or giving away this medicine is against the law. Never crush a pill or use the liquid to inhale the mixture or inject it into your vein. This could result in . Your dose needs may change if you switch to a different brand, strength, or form of this medicine. Avoid medication errors by using exactly as directed on the label, or as prescribed by your doctor. Stop taking all other gnhnyg-zkc-bnyab opioid pain medicines when you start taking extended-release oxycodone. Swallow the extended-release forms whole to avoid exposure to a potentially fatal overdose. Do not crush, chew, break, open, or dissolve. Take the extended-release capsules with food. Read and carefully follow the instructions for use on how to prepare and take this medicine if you cannot swallow extended release capsules whole or you use a feeding tube. Ask your doctor or pharmacist if you don't understand these instructions. Measure liquid medicine with the supplied measuring device (not a kitchen spoon). You may be given other medications to help prevent or treat certain side effects. You may have withdrawal symptoms if you stop using oxycodone suddenly. Ask your doctor before stopping the medicine. Store at room temperature away from moisture and heat. Keep your medicine in a place where no one can use it improperly. Do not keep leftover medicine. Just one dose can cause in someone using it accidentally or improperly. Ask your pharmacist about a drug take-back program, or flush the unused medicine down the toilet. What happens if I miss a dose? Since oxycodone is used for pain, you are not likely to miss a dose. Skip any missed dose if it is almost time for your next dose. Do not use two doses at one time. What happens if I overdose? Seek emergency medical attention or call the Poison Help line at . An overdose can be fatal, especially in a child or person using opioid medicine without a prescription. Your doctor may recommend you get naloxone (a medicine to reverse an opioid overdose) and keep it with you at all times. A person caring for you can give the naloxone if you stop breathing or don't wake up. Your caregiver must still get emergency medical help and may need to perform CPR (cardiopulmonary resuscitation) on you while waiting for help to arrive. Anyone can buy naloxone from a pharmacy or local health department. Make sure any person caring for you knows where you keep naloxone and how to use it. What should I avoid while taking oxycodone? Do not drink alcohol or any products that contain alcohol. Dangerous side effects or could occur. Avoid driving or hazardous activity until you know how this medicine will affect you. Dizziness or drowsiness can causing falls, accidents, or severe injuries. Also avoid getting up too fast from a sitting or lying position, or you may feel dizzy. What are the possible side effects of oxycodone? Get emergency medical help if you have signs of an allergic reaction: hives, difficult breathing, swelling of your face, lips, tongue, or throat. Opioid medicine can slow or stop your breathing, and may occur, especially if you drink alcohol or use other drugs that cause drowsiness or slow breathing. A person caring for you should give naloxone and/or seek emergency medical attention if you have slow breathing with long pauses, blue colored lips, or if you are hard to wake up. Call your doctor at once if you have: slow heart rate, weak pulse, fainting, slow breathing (breathing may stop); chest pain, fast or pounding heartbeats; a seizure, extreme drowsiness; or decreased adrenal gland hormones--nausea, vomiting, stomach pain, loss of appetite, feeling tired or light-headed, muscle or joint pain, skin discoloration, craving salty foods. Serious breathing problems may be more likely in older adults and in those who are debilitated or have wasting syndrome or chronic breathing disorders. Seek medical attention right away if you have symptoms of serotonin syndrome, such as: agitation, hallucinations, fever, sweating, shivering, fast heart rate, muscle stiffness, twitching, loss of coordination, nausea, vomiting, or diarrhea. Common side effects may include: sleep problems (insomnia), itching; drowsiness, headache, dizziness, tiredness; or constipation, stomach pain, nausea, vomiting. This is not a complete list of side effects and others may occur. Call your doctor for medical advice about side effects. You may report side effects to FDA at 6-230-HAB-8418. What other drugs will affect oxycodone? You may have a fatal oxycodone overdose if you start or stop using certain medicines. Tell your doctor about all your medications. Tell your doctor about all your medications especially if you use medicine to treat HIV, antibiotic, antifungal medication, or seizure medication. Many other drugs can be dangerous when used with opioid medicine. Tell your doctor if you also use: medicine for allergies, asthma, blood pressure, motion sickness, irritable bowel, or overactive bladder; other opioid medicines, a benzodiazepine sedative like Valium, Klonopin, or Xanax; sleep medicine, muscle relaxers, or other drugs that make you drowsy; or drugs that affect serotonin, such as antidepressants, stimulants, or medicine for migraines or Parkinson's disease. This list is not complete and many other drugs may affect oxycodone. This includes prescription and pltz-tmv-tijbwzq medicines, vitamins, and herbal products. Not all possible drug interactions are listed here. Where can I get more information? Your doctor or pharmacist can provide more information about oxycodone. Remember, keep this and all other medicines out of the reach of children, never share your medicines with others, and use this medication only for the indication prescribed. Every effort has been made to ensure that the information provided by [employer] is accurate, up-to-date, and complete, but no guarantee is made to that effect. Drug information contained herein may be time sensitive. [employer] information has been compiled for use by healthcare practitioners and consumers in the [place] and therefore [employer] does not warrant that uses outside of the [place] are appropriate, unless specifically indicated otherwise. [employer]'s drug information does not endorse drugs, diagnose patients or recommend therapy. [employer] drug information is an informational resource designed to assist licensed healthcare practitioners in caring for their patients and/or to serve consumers viewing this service as a supplement to, and not a substitute for, the expertise, skill, knowledge and judgment of healthcare practitioners. The absence of a warning for a given drug or drug combination in no way should be construed to indicate that the drug or drug combination is safe, effective or appropriate for any given patient. [employer] does not assume any responsibility for any aspect of healthcare administered with the aid of information [employer] provides. The information contained herein is not intended to cover all possible uses, directions, precautions, warnings, drug interactions, allergic reactions, or adverse effects. If you have questions about the drugs you are taking, check with your doctor, nurse or pharmacist. Copyright 1951-5422 [employer]. Version: 17.. Revision Date: 10/21/2023. Education Materials Psychosis Psychosis, also called thought disturbance, refers to a severe loss of contact with reality. People having a psychotic episode are not able to think clearly, and their emotions and responses do not match with what is actually happening. People having a psychotic episode may have false beliefs about what is happening or who they are (delusions). They may see, hear, taste, smell, or feel things that are not present (hallucinations). They may also be very upset (agitated), have chaotic behavior, or be very quiet and withdrawn. What are the causes? This condition may be caused by: Very serious mental health (psychiatric) conditions such as schizophrenia, bipolar disorder, or major depression. Use of drugs such as hallucinogens or alcohol. Medical conditions such as delirium or neurological disorders. What are the signs or symptoms? Symptoms of this condition include: Delusions, such as: ? Feeling a lot of fear or suspicion (paranoia). ? Believing something that is odd, unrealistic, or false, such as believing that you are someone else. Hallucinations, such as: ? Hearing or seeing things, smelling odors, experiencing tastes, or feeling bodily sensations. ? Command hallucinations that direct you to do something that could be dangerous. Disorganized thinking, such as thoughts that jump from one idea to another in a way that does not make sense. Disorganized speech, such as saying things that do not make sense, echoing others, or using words based on their sound rather than their meaning. Inappropriate behavior, such as talking to yourself, showing a clear increase or decrease in activity, or intruding on unfamiliar people. How is this diagnosed? This condition is diagnosed based on an assessment by a health care provider. The health care provider may ask questions about: ? Your thoughts, feelings, and behavior. ? Any medical conditions you have. ? Any use of alcohol or drugs. One or more of the following may also be done: ? A physical exam. ? Blood tests. ? Brain imaging, such as a CT scan or MRI. ? A brain wave study (electroencephalogram, or EEG). The health care provider may refer you to a mental health professional for further tests. How is this treated? Treatment for this condition may depend on the cause of the psychosis. Treatment may include one or more of the following: Supportive care and monitoring in the emergency room or hospital. You may need to stay in the hospital if you are a danger to yourself or others. Taking antipsychotic medicines to reduce symptoms and to balance chemicals in the brain. Treating an underlying medical condition. Stopping or reducing drugs that are causing psychosis. Therapy and other supportive programs, such as: ? Ongoing treatment and care from a mental health professional. ? Individual or family therapy. ? Training to learn new skills to cope with the psychosis and prevent further episodes. Follow these instructions at home: Take aofm-oaf-thdupcv and prescription medicines only as told by your health care provider. Consult a health care provider before taking kyfv-xvq-ubxsdnk medicines, herbs, or supplements. Surround yourself with people who care about you and can help manage your condition. Keep stress under control. Stress may trigger psychosis and make symptoms worse. Maintain a healthy lifestyle. This includes: ? Eating a healthy diet. ? Getting enough sleep. ? Exercising regularly. ? Avoiding alcohol, nicotine, and recreational drugs. Keep all follow-up visits as told by your health care provider. This is important. Contact a health care provider if: Medicines do not seem to be helping. You or others notice that you: ? Continue to see, smell, or feel things that are not there. ? Hear voices telling you to do things. ? Feel extremely fearful and suspicious that someone or something will harm you. ? Feel unable to leave your house. ? Have trouble taking care of yourself. You have side effects of medicines, such as: ? Changes in sleep patterns. ? Dizziness. ? Weight gain. ? Restlessness. ? Movement changes. ? Shaking that you cannot control (tremors). Get help right away if: You have serious side effects of medicine, such as: ? Swelling of the face, lips, tongue, or throat. ? Fever, confusion, muscle spasms, or seizures. You have serious thoughts about harming yourself or hurting others. If you ever feel like you may hurt yourself or others, or have thoughts about taking your own life, get help right away. You can go to your nearest emergency department or call: Your local emergency services (911 in the [place] A suicide crisis helpline, such as the National Suicide Prevention Lifeline at . This is open 24 hours a day. Summary Psychosis refers to a severe loss of contact with reality. People having a psychotic episode are not able to think clearly, and they may have delusions or hallucinations. Psychosis is a serious medical condition that should be treated by a medical professional as soon as possible. Being checked and treated right away can stop or reduce symptoms. This prevents more serious problems from developing. In some cases, treatment may include taking antipsychotic medicines to reduce symptoms and to balance chemicals in the brain. Support programs may help you learn new skills to cope with the psychosis and prevent further episodes. This information is not intended to replace advice given to you by your health care provider. Make sure you discuss any questions you have with your health care provider. Document Released: 03/05/2011 Document Revised: 11/27/2018 Document Reviewed: 10/27/2018 [employer] Patient Education 2020 [employer]. Additional Information VACCINATE! IT SAVES LIVES! Members of the community who have not yet received the COVID-19 vaccine and would like to receive it can visit one of [facility] vaccine clinics. There are many vaccine clinic locations within the [facility]. For locations and available times, please visit [email or web address] It is important to note that some COVID mobile vaccine clinics are held outdoors and may be canceled in rainy or stormy conditions. To learn more about pediatric vaccinations (ages 5-11), we invite you to visit the [facility] webpage. [email or web address]/page [email or web address]-[email or web address]-Rsvqlzmddyt-Frequently -Asked-Questions.html To learn more about the COVID-19 vaccine, we invite you to visit the CDC website for a list of frequently asked questions.https://www.cdc.gov/coron avirus/2019-ncov/vaccines/faq.html [facility] Patient Portal Access Instructions: Stay connected with your healthcare team and access your personal medical information anytime with the [facility] Patient Portal. Please follow the directions below to create your [facility] account: 1.Access the email account you provided upon registration to the hospital/physician office.2.Look for an invitation email from [facility].3.Open the email and access the invitation link: Accept Invitation to [facility].4.Fill in the required chandler to create your account. To access your account, visit [email or web address]. Click the blue button labeled "Access Patient Portal" and then log in with the username and password that you created in the steps above. You will be able to view your test results, lab results, a summary of your visits, upcoming appointments and more. There is also a convenient messaging option where you can send secure messages to your provider. In addition, you will have the ability to download any documents or summaries to your computer and/or send the information securely to a physician. Remember that your healthcare information is confidential, so carefully consider who you will allow to register on the [facility] Patient Portal for access to your information. You can also access the [facility] Patient Portal on the [facility] kemi. Simply click on "Patient Portal" and then log into your account. If you would like to receive a full copy of your medical records, please contact the [facility] Medical Records Department by calling [phone], Friday through Friday between 8 a.m. and 4:30 p.m. HOW TO SAFELY DISPOSE OF PRESCRIPTION MEDICATIONS Please use one of the following methods to safely dispose of your unused medications. 1.Use a drug disposal kit: the drug disposal pouch allows you to safely discard your old and unused drugs. Ask your nurse to give you one when you are discharged.2.Visit a local take-back location: Many local pharmacies and police departments have programs that collect old and unwanted prescription drugs. Call your local pharmacy or go to http://bit.Truckily/0B3Rt1r to find one close to you.3.Make use of household items: Use cat litter or old coffee grounds to dispose medications if other options are not available. Mix your drugs with these household products, seal them in an airtight container and throw it into the garbage. Call [facility]: [phone] to be sure your drugs can be disposed of in this way. Some medicines may require a different approach.4.Never flush your medications down the toilet. IF YOU HAVE BEEN PRESCRIBED AN OPIOID FOR PAIN If you have been prescribed an opioid (such as hydrocodone, oxycodone or morphine), it is critical to understand the possible side effects and risks of opioid pain medications. Even when taken as directed, opioids can have several side effects including: Tolerance, meaning you might need to take more of a medication for the same pain relief. Nausea, vomiting and/or constipation. Sleepiness, dizziness, dry mouth, confusion, depression or itching. Physical dependence, meaning you have withdrawal symptoms when a medication is stopped, can develop within a few days. KNOW YOUR RESPONSIBILITIES It is important to know exactly how much and how often to take the opioid pain medications you are prescribed. Never take opioids in higher amounts or more often than prescribed. Do not combine opioids with alcohol or other drugs that cause drowsiness, such as benzodiazepines, also known as benzos, including diazepam and alprazolam, muscle relaxants or sleep aids. Never sell or share prescription opioids. This is illegal. Store opioids in a secure place and out of reach of others (including children, family, friends and visitors). The last page of this document has been signed and retained as a CHART COPY. Signatures Patient Education Materials Psychosis Medication Leaflets LORazepam, oxyCODONE 5 mg oral tablet ( IMMEDIATE release ) My discharge plan and instructions have been reviewed and explained to me and I,TALIA RUBY understand my current condition and have read and understand these discharge instructions. I have received a written copy of the plan/instructions. If I have questions, I am aware that I should contact my doctor. Patient/Board Attendant Signature: ____ Date/Time: Relationship to Patient: __ Witness Name/Signature: Date/Time: [facility] 03-24-2024 Note Discharge Instructions Thank you for allowing [facility] to assist you with your healthcare needs. The following is important discharge information regarding your hospital visit. Your Care Team JUJU MCKENNA, KING STRICKLAND Your Diagnosis Infection of hand Schizoaffective disorder What to do next Follow Up Appointments Follow Up with KING MATUTE MD Where:[address] [place], [place] [id number]- [phone] Additional Information: 1-2 weeks Follow Up with ANSELMO PA Where:[address] [place] [address] [place] [phone] [phone] Additional Information: 1-2 weeks Follow Up with MICHA FISCHER MD, Orthopedic Where:[facility] [place] [address] [place] [address]- [phone] Additional Information: 1-2 weeks The Following Activity and Diet Have Been Ordered for You Discharge Activity - Discontinued -- Activity As Tolerated, 03/24/24 12:42:00 EDT Discharge Activity - Ordered -- Other, Nonweight bearing left hand., 03/24/24 12:49:00 EDT Discharge Diet - Ordered -- No changes were made to your diet during your hospital stay. Please resume your pre hospitalization diet on discharge., 03/24/24 12:42:00 EDT The Following Equipment Has Been Ordered for You No qualifying data available. The Following Treatments Have Been Ordered for You Discharge Labs No qualifying data available. Discharge Radiology No qualifying data available. Other Therapies No qualifying data available. Post Acute Orders No qualifying data available. Someone Will Contact You Regarding These Home Health Referrals No home referrals have been ordered for you. No one will call you. Allergies Haldol "psychotic hodan", insomnia RisperDAL tardive diskinesia, EPS metFORMIN Medications Please ask your primary doctor or pharmacist before taking any other medication not listed, including over the counter drugs, herbal medications, vitamins and or supplements as they may interact with your home medications. What How Much When Why Instructions Last Dose New nicotine (Nicoderm CQ patch 14-7mg TAPER (Disch Rx)) Transdermal Every 24 hours Changed LORazepam (LORazepam 0.5 mg oral tablet) 1 tab(s) by mouth Three (3) times a day Schizoaffective disorder Duration: 1 Days Printed Prescription Changed divalproex sodium (divalproex sodium 500 mg oral tablet, extended release) 1 tab(s) by mouth Three (3) times a day Changed oxyCODONE (oxyCODONE 5 mg oral tablet ( IMMEDIATE release )) 1 tab(s) by mouth Every 6 hours Infection of hand Duration: 1 Days Printed Prescription Changed ziprasidone (Geodon 20 mg oral capsule) 4 cap by mouth Twice daily with meals Unchanged acetaminophen (Tylenol 325 mg oral tablet) 2 tab(s) by mouth Every 6 hours as needed for pain 0-10 Unchanged albuterol-ipratropium (albuterol-ipratropium 2.5 mg-0.5 mg/ 3 mL inhalation solution) 3 Milliliter Nebulized inhalation Three (3) times a day as needed for as needed for shortness of breath or wheezing Unchanged hydrocortisone topical (hydrocortisone 1% topical ointment) 1 application Topical Two (2) times a day Duration: 7 Days Unchanged ketoconazole topical (Nizoral A-D 1% topical shampoo) 1 application Topical Every Friday and Friday Unchanged levothyroxine (levothyroxine 50 mcg (0.05 mg) oral tablet) 1 tab(s) by mouth Before breakfast Unchanged melatonin (melatonin 5 mg oral tablet) 1 tab(s) by mouth Daily at bedtime Unchanged menthol topical (Biofreeze 4% topical gel) 1 application Topical Two (2) times a day Unchanged polyethylene glycol 3350 (MiraLax oral powder for reconstitution) 17 gram(s) by mouth Once a day Unchanged senna (senna (sennosides) 8.6 mg oral tablet) 1 tab(s) by mouth Two (2) times a day What How Much When Comments Stop Taking ceFAZolin (ceFAZolin 2 g injection) 2 gram(s) Intravenous Every 8 hours Duration: 21 Days Stop Taking traZODone (traZODone 50 mg oral tablet) 1 tab(s) by mouth Daily at bedtime Please take this list to your next doctor s visit. Bring all medications you take, including over the counter medications, herbals and other supplements with you to your doctor s visit. Patients and families are reminded to discard old lists and to update any records with all medication providers or retail pharmacies. Education Materials Psychosis Psychosis, also called thought disturbance, refers to a severe loss of contact with reality. People having a psychotic episode are not able to think clearly, and their emotions and responses do not match with what is actually happening. People having a psychotic episode may have false beliefs about what is happening or who they are (delusions). They may see, hear, taste, smell, or feel things that are not present (hallucinations). They may also be very upset (agitated), have chaotic behavior, or be very quiet and withdrawn. What are the causes? This condition may be caused by: Very serious mental health (psychiatric) conditions such as schizophrenia, bipolar disorder, or major depression. Use of drugs such as hallucinogens or alcohol. Medical conditions such as delirium or neurological disorders. What are the signs or symptoms? Symptoms of this condition include: Delusions, such as: ? Feeling a lot of fear or suspicion (paranoia). ? Believing something that is odd, unrealistic, or false, such as believing that you are someone else. Hallucinations, such as: ? Hearing or seeing things, smelling odors, experiencing tastes, or feeling bodily sensations. ? Command hallucinations that direct you to do something that could be dangerous. Disorganized thinking, such as thoughts that jump from one idea to another in a way that does not make sense. Disorganized speech, such as saying things that do not make sense, echoing others, or using words based on their sound rather than their meaning. Inappropriate behavior, such as talking to yourself, showing a clear increase or decrease in activity, or intruding on unfamiliar people. How is this diagnosed? This condition is diagnosed based on an assessment by a health care provider. The health care provider may ask questions about: ? Your thoughts, feelings, and behavior. ? Any medical conditions you have. ? Any use of alcohol or drugs. One or more of the following may also be done: ? A physical exam. ? Blood tests. ? Brain imaging, such as a CT scan or MRI. ? A brain wave study (electroencephalogram, or EEG). The health care provider may refer you to a mental health professional for further tests. How is this treated? Treatment for this condition may depend on the cause of the psychosis. Treatment may include one or more of the following: Supportive care and monitoring in the emergency room or hospital. You may need to stay in the hospital if you are a danger to yourself or others. Taking antipsychotic medicines to reduce symptoms and to balance chemicals in the brain. Treating an underlying medical condition. Stopping or reducing drugs that are causing psychosis. Therapy and other supportive programs, such as: ? Ongoing treatment and care from a mental health professional. ? Individual or family therapy. ? Training to learn new skills to cope with the psychosis and prevent further episodes. Follow these instructions at home: Take wlte-vmi-couoayy and prescription medicines only as told by your health care provider. Consult a health care provider before taking csbg-web-rqeyggg medicines, herbs, or supplements. Surround yourself with people who care about you and can help manage your condition. Keep stress under control. Stress may trigger psychosis and make symptoms worse. Maintain a healthy lifestyle. This includes: ? Eating a healthy diet. ? Getting enough sleep. ? Exercising regularly. ? Avoiding alcohol, nicotine, and recreational drugs. Keep all follow-up visits as told by your health care provider. This is important. Contact a health care provider if: Medicines do not seem to be helping. You or others notice that you: ? Continue to see, smell, or feel things that are not there. ? Hear voices telling you to do things. ? Feel extremely fearful and suspicious that someone or something will harm you. ? Feel unable to leave your house. ? Have trouble taking care of yourself. You have side effects of medicines, such as: ? Changes in sleep patterns. ? Dizziness. ? Weight gain. ? Restlessness. ? Movement changes. ? Shaking that you cannot control (tremors). Get help right away if: You have serious side effects of medicine, such as: ? Swelling of the face, lips, tongue, or throat. ? Fever, confusion, muscle spasms, or seizures. You have serious thoughts about harming yourself or hurting others. If you ever feel like you may hurt yourself or others, or have thoughts about taking your own life, get help right away. You can go to your nearest emergency department or call: Your local emergency services (911 in the [place] A suicide crisis helpline, such as the National Suicide Prevention Lifeline at . This is open 24 hours a day. Summary Psychosis refers to a severe loss of contact with reality. People having a psychotic episode are not able to think clearly, and they may have delusions or hallucinations. Psychosis is a serious medical condition that should be treated by a medical professional as soon as possible. Being checked and treated right away can stop or reduce symptoms. This prevents more serious problems from developing. In some cases, treatment may include taking antipsychotic medicines to reduce symptoms and to balance chemicals in the brain. Support programs may help you learn new skills to cope with the psychosis and prevent further episodes. This information is not intended to replace advice given to you by your health care provider. Make sure you discuss any questions you have with your health care provider. Document Released: 03/05/2011 Document Revised: 11/27/2018 Document Reviewed: 10/27/2018 [employer] Patient Education 2020 [employer]. Additional Information VACCINATE! IT SAVES LIVES! Members of the community who have not yet received the COVID-19 vaccine and would like to receive it can visit one of [facility] vaccine clinics. There are many vaccine clinic locations within the [facility]. For locations and available times, please visit [email or web address] It is important to note that some COVID mobile vaccine clinics are held outdoors and may be canceled in rainy or stormy conditions. To learn more about pediatric vaccinations (ages 5-11), we invite you to visit the [facility] webpage. [email or web address]/page [email or web address]-Ikdsh-Abdurfqkzbb-Frequently -Asked-Questions.html To learn more about the COVID-19 vaccine, we invite you to visit the CDC website for a list of frequently asked questions.https://www.cdc.gov/coron avirus/2019-ncov/vaccines/faq.html [facility] Patient Portal Access Instructions: Stay connected with your healthcare team and access your personal medical information anytime with the [facility] Patient Portal. Please follow the directions below to create your [facility] account: 1.Access the email account you provided upon registration to the hospital/physician office.2.Look for an invitation email from [facility].3.Open the email and access the invitation link: Accept Invitation to [email or web address].4.Fill in the required chandler to create your account. To access your account, visit [email or web address]. Click the blue button labeled "Access Patient Portal" and then log in with the username and password that you created in the steps above. You will be able to view your test results, lab results, a summary of your visits, upcoming appointments and more. There is also a convenient messaging option where you can send secure messages to your provider. In addition, you will have the ability to download any documents or summaries to your computer and/or send the information securely to a physician. Remember that your healthcare information is confidential, so carefully consider who you will allow to register [facility] for access to your information. You can also access the [facility] Patient Portal on the [facility] kemi. Simply click on "Patient Portal" and then log into your account. If you would like to receive a full copy of your medical records, please contact the [facility] Medical Records Department by calling [phone], Friday through Friday between 8 a.m. and 4:30 p.m. HOW TO SAFELY DISPOSE OF PRESCRIPTION MEDICATIONS Please use one of the following methods to safely dispose of your unused medications. 1.Use a drug disposal kit: the drug disposal pouch allows you to safely discard your old and unused drugs. Ask your nurse to give you one when you are discharged.2.Visit a local take-back location: Many local pharmacies and police departments have programs that collect old and unwanted prescription drugs. Call your local pharmacy or go to http://Popularo.Truckily/[email or web address] to find one close to you.3.Make use of household items: Use cat litter or old coffee grounds to dispose medications if other options are not available. Mix your drugs with these household products, seal them in an airtight container and throw it into the garbage. Call [facility]: [phone] to be sure your drugs can be disposed of in this way. Some medicines may require a different approach.4.Never flush your medications down the toilet. IF YOU HAVE BEEN PRESCRIBED AN OPIOID FOR PAIN If you have been prescribed an opioid (such as hydrocodone, oxycodone or morphine), it is critical to understand the possible side effects and risks of opioid pain medications. Even when taken as directed, opioids can have several side effects including: Tolerance, meaning you might need to take more of a medication for the same pain relief. Nausea, vomiting and/or constipation. Sleepiness, dizziness, dry mouth, confusion, depression or itching. Physical dependence, meaning you have withdrawal symptoms when a medication is stopped, can develop within a few days. KNOW YOUR RESPONSIBILITIES It is important to know exactly how much and how often to take the opioid pain medications you are prescribed. Never take opioids in higher amounts or more often than prescribed. Do not combine opioids with alcohol or other drugs that cause drowsiness, such as benzodiazepines, also known as benzos, including diazepam and alprazolam, muscle relaxants or sleep aids. Never sell or share prescription opioids. This is illegal. Store opioids in a secure place and out of reach of others (including children, family, friends and visitors). The last page of this document has been signed and retained as a CHART COPY. Signatures Patient Education Materials Psychosis Medication Leaflets My discharge plan and instructions have been reviewed and explained to me and I,TALIA RUBY understand my current condition and have read and understand these discharge instructions. I have received a written copy of the plan/instructions. If I have questions, I am aware that I should contact my doctor. Patient/Board Attendant Signature: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 Assessment/Plan 1. Recent left hand injury with plan for antibiotics IV till 03/24/2024 2. Manic episode 3. Schizophrenia 43-year-old male with past medical history of schizophrenia presents to the ER for PICC line placement. He was recently seen for left hand injury after punching window in January, transferred to [facility] where he underwent I&D with PICC line placement and required 3 to 4 weeks of IV antibiotics until 03/24/2024. At the nursing facility, he accidentally removed his PICC line and was seen again in the ER for PICC line placement. Labs are unremarkable. Patient was found to be tachycardic. ID has been following for antimicrobial management. Recent left hand injury status post extensive surgery at [facility] on 02/25/2024. His left hand is clinically improving with less erythema. Cultures from the facility grew MSSA. Given that the patient is in a manic episode and requires admission to an inpatient psych facility, primary team is requesting oral antibiotics to complete. No fever or leukocytosis. Plan Would recommend to transition antibiotics to dicloxacillin to complete 1 week course. ID will sign off. Please call for further questions or concerns. Plan of care discussed in depth with patient. All questions answered. Patient verbalized understanding and is agreeable to plan of care. This is a shared/split visit with my collaborating physician Dr. Kj Garza. Any changes to the plan will be added to end as an addendum. Problem List/Past Medical History Ongoing Asthma Diabetes Paranoid schizophrenia Sleep apnea Procedure/Surgical History Tonsillectomy ORIF - Open reduction and internal fixation of fracture Medications Inpatient Benadryl, 25 mg= 0.5 mL, IV Push, TID, PRN Biofreeze gel packet, 1 kemi, Topical, BID Dextrose 50% IV Push, 12.5 gram(s)= 25 mL, IV Push, AsDirected, PRN dicloxacillin, 500 mg= 1 cap(s), Oral, q6h divalproex sodium, 500 mg= 1 tab(s), Oral, TID DuoNeb, 3 mL, Inhalation, q4hRT, PRN Geodon, 80 mg= 4 cap(s), Oral, BIDM Geodon 20 mg intramuscular injection, 20 mg= 1 mL, Intramuscular, BID, PRN guaiFENesin, 200 mg= 10 mL, Oral, q4h, PRN levothyroxine, 50 mcg= 1 tab(s), Oral, acBreakfast lidocaine 1% preservative-free injectable solution, 30 mg= 3 mL, Intradermal, prep pharm LORazepam, 0.5 mg= 1 tab(s), Oral, BID, PRN LORazepam, 0.5 mg= 1 tab(s), Oral, BID Lovenox, 40 mg= 0.4 mL, Subcutaneous, qDay melatonin, 5 mg= 1 tab(s), Oral, qHS Miralax Powder Packet, 17 gram(s)= 15 mL, Oral, qDay, PRN Miralax Powder Packet, 17 gram(s)= 15 mL, Oral, qDay Nicoderm C-Q 21 mg/24 hr transdermal film, extended release, 21 mg= 1 patch(es), Transdermal, q24h Nicorette gum, 2 mg= 1 EA, Chewed, AsDirected, PRN nicotine (Nicoderm Patch REMOVAL), 1 EA, Miscellaneous, q24h oxyCODONE 5 mg oral tablet ( IMMEDIATE release ), 5 mg= 1 tab(s), Oral, q4hr senna (sennosides) 8.6 mg oral tablet, 8.6 mg= 1 tab(s), Oral, BID Tylenol, 650 mg= 2 tab(s), Oral, q4h, PRN Tylenol, 650 mg= 2 tab(s), Oral, q4h, PRN Home albuterol-ipratropium 2.5 mg-0.5 mg/3 mL inhalation solution, 3 mL, Nebulized, TID, PRN Biofreeze 4% topical gel, 1 kemi, Topical, BID ceFAZolin 2 g injection, 2 gram(s), Intravenous, q8h, Current Antibiotic Depakote Sprinkles 125 mg oral delayed release capsule, 125 mg= 1 cap(s), Oral, TID hydrocortisone 1% topical ointment, 1 kemi, Topical, BID levothyroxine 50 mcg (0.05 mg) oral tablet, 50 mcg= 1 tab(s), Oral, acBreakfast LORazepam 0.5 mg oral tablet, 0.5 mg= 1 tab(s), Oral, BID LORazepam 0.5 mg oral tablet, 0.5 mg= 1 tab(s), Oral, BID, PRN melatonin 5 mg oral tablet, 5 mg= 1 tab(s), Oral, qHS MiraLax oral powder for reconstitution, 17 gram(s), Oral, qDay Nizoral A-D 1% topical shampoo, 1 kemi, Topical, Friday & Friday oxyCODONE 5 mg oral tablet ( IMMEDIATE release ), 5 mg= 1 tab(s), Oral, q6hr senna (sennosides) 8.6 mg oral tablet, 8.6 mg= 1 tab(s), Oral, BID traZODone 50 mg oral tablet, 50 mg= 1 tab(s), Oral, qHS Tylenol 325 mg oral tablet, 650 mg= 2 tab(s), Oral, q6h, PRN ziprasidone 20 mg oral capsule, 20 mg= 1 cap(s), Oral, BID Allergies Haldol "psychotic hodan", insomnia RisperDAL tardive diskinesia, EPS metFORMIN Social History Smoking Status - 06/10/2018 Current every day smoker Alcohol - Denies Alcohol Use, 03/02/2018 Use: Current. Frequency: 1-2 times per week., 11/17/2023 Substance Abuse - Denies Substance Abuse, 03/02/2018 Use: Current. Type: Marijuana, Methamphetamines, Prescription medications. Frequency: 1-2 times per week., 11/17/2023 Tobacco Nicotine Use: 10 or more cigarettes (1/2 pack or more)/day in last 30 days. Type: Cigarettes., 11/17/2023 Family History Diabetes mellitus type 1: Mother. High blood pressure: Mother. Suicide: Father. Health Status Family Member(s) Immunizations pneumococcal 23-valent vaccine(Pneumovax: 0 unknown unit (04/13/15) rabies vaccine, purified chick embryo: 1 mL (03/16/18) rabies vaccine, purified chick embryo: 1 mL (03/09/18) rabies vaccine, purified chick embryo: 1 mL (03/05/18) rabies vaccine, purified chick embryo: 1 mL (03/02/18) SARS-CoV-2 (COVID-19) mRNA-1273 vaccine: 100 mcg (03/22/21) SARS-CoV-2 (COVID-19) mRNA-1273 vaccine: 100 mcg (02/22/21) tetanus/diphth/pertuss (Tdap) adult/adol: 0.5 mL (11/10/23) tetanus/diphth/pertuss (Tdap) adult/adol: 0.5 mL (03/02/18) tetanus/diphth/pertuss (Tdap) adult/adol: 0 unknown unit (12/12/16) Digitally Signed by ALICE PERERA on 03/16/2024 05:44 PM [facility] 03-16-2024 Note Sinus rhythm Abnormal R-wave progression, early transition PVC Electronic Signature: CHEY BOSS MD 03/17/2024 06:09:40 [facility] 03-13-2024 Mental health Consult note Date of Service March 13, 2024 Reason for Consultation Psychosis and agitation Referring Physician Dr. Aguilera History of Present Illness Patient is a 43-year-old gentleman with a long history of psychiatric illness, with previous diagnoses of schizophrenia and bipolar disorder. He was admitted from a fdc facility, where he had been a resident for several weeks for PICC line treatment of an infection with parenteral antibiotics. Notes indicate that he become agitated at the fdc facility and pulled out his PICC line, and was brought to the emergency room for PICC line reinsertion. He was admitted to the medical service to manage parenteral antibiotic administration. Patient has been agitated and combative with staff since admission. He had been temporarily restrained, and has been treated with multiple doses of lorazepam, Geodon, Versed, and has received parenteral antipsychotics including Geodon and haloperidol on multiple occasions for agitation interfering with care. He does have a history of perpetrating violence toward medical staff at our institution in the past. When interviewed this morning the patient is initially resting comfortably. However, with interview, he becomes agitated. 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 He is perseverating on desiring to be discharged from the hospital or at least to smoke a cigarette. He denies depressed mood or suicidal ideation. He denies being engaged in outpatient mental health care recently and denies taking psychiatric medication in recent weeks. Patient had been most recently seen in our institution for similar psychiatric presentation in December of this year, when he was seen in our emergency room in the context of psychotic symptoms and was transferred at that time to [place] psychiatric hospitalization. He had been seen in an outlying emergency room on February 23 after he suffered a laceration of his hand after "putting his hand through a window". That was the event that led to a need for PICC line parental antibiotic administration and led to him being placed in a fdc facility in the weeks leading up to this presentation. Past psychiatric history: Patient has a long history of psychiatric illness and previous diagnoses of schizophrenia and bipolar disorder. He reports multiple past psychiatric hospitalizations, And notes from our institution indicate that the patient has been psychiatrically hospitalized on at least 3 occasions since June of last year for similar presentations including psychotic symptoms. In the past he been followed by a psychiatric nurse practitioner, Manisha Felder, at the [facility]. Notes from the [facility] indicate that he had been seen by their staff in an outlying emergency room in June 2023 for psychosis and agitation and at that time was transferred to inpatient psychiatry. He reportedly also has a history of substance abuse, though is vague and evasive about his extent of substance abuse in recent months.He does report that he takes Adderall, though does not appear to have any active prescriptions for this. He seems to imply that he is taking Adderall from an old supply or perhaps obtaining it illicitly. He is not willing to discuss the extent to which he may be abusing illegal drugs. The patient has had multiple urine tox screen for drugs of abuse at our institution over the past year, most recently on February 24 of this year, at which point he was positive for amphetamines and cannabinoids. He has consistently tested positive for cannabinoids on multiple urine tox screens, and also tested positive for amphetamines in June of last year. He denies any history of suicide attempt. He has been prescribed a multitude Of psychiatric medications in the past, and review of outpatient pharmacy records in recent years indicates that he has had at least brief prescriptions for trazodone, Depakote, Seroquel, prazosin, hydroxyzine, Strattera, Geodon, Remeron, lorazepam in recent years. He has reported allergies to haloperidol and risperidone. He is quite averse to using psychiatric medication, and becomes quite irritable when discussing this topic. Family psychiatric history: Unknown. Social history: He is a poor historian for his social history. He is thought to be homeless. He does require 2 more weeks of parenteral antibiotics administered through a PICC line in discharge planning is focused on return to fdc facility if possible. Medical status:Currently the patient is resting comfortably, in no distress. He is afebrile and his vital signs are within normal limits. Laboratory studies including CBC, metabolic panel are reviewed and generally reassuring for my purposes. Most recent neuroimaging is a CT scan of the head from January of this year for an indication of weakness. This was reassuring, though degraded by artifact. Mental status examination: Patient is alert, resting comfortably, in no distress. Speech is pressured. Mood is described as "fine". Affect is expansive and irritable. Thought process is tangential. Thought content is negative for active suicidal and homicidal ideation. He does demonstrate grandiose delusions. Insight and judgment are poor. Diagnosis: Hodan with psychosis. Differential diagnosis includes bipolar 1 disorder or schizoaffective disorder, bipolar type. Substance use disorder. Discussion: This 43-year-old gentleman with a history of psychiatric illness and substance use disorder is hospitalized for parenteral antibiotics administration. He has significant mood instability with acute hodan and psychosis. As he has reported an allergy to haloperidol I would advise avoiding this medication. Since admission, he has consented to several doses of oral Geodon and lorazepam. However, these are unlikely to be adequate interventions for his symptoms. He has refused multiple doses of Depakote. I would recommend proceeding with a trial of olanzapine, robustly dosed as 10 mg 3 times daily in the short-term targeting acute psychotic hodan. As the patient has been agitated and aggressive with staff, and interfering with needed medical care, I would recommend that should the patient refuse oral doses of this medication that they be administered intramuscularly. Coadministration of parenteral olanzapine and parenteral benzodiazepines are contraindicated. I would recommend discontinuation of Geodon. Should the patient be willing to proceed with a trial of oral Depakote, I would recommend continuing this as well. The patient is detained on a pink slip status, and the psychiatry service will follow with you. With respect to the patient's ability to make informed medical decisions regarding his infection and need for parenteral antibiotic treatment, he clearly lacks the capacity to make informed medical decisions regarding this at this time, and I would recommend surrogate decision making procedures be observed in the short-term. Recommendation: Discontinue Geodon. in the short-term Proceed with a trial of Depakote at a higher dose of 500 mg 3 times daily should the patient be willing to consent. Proceed with a trial of olanzapine 10 mg orally or intramuscularly 3 times daily targeting psychotic hodan and agitation with violent outburst towards staff. Physical Exam Vitals and Measurements T: 36.2 C (Axillary) TMIN: 36.2 C (Axillary) TMAX: 36.4 C (Oral) HR: 75 RR: 20 BP: 119/68 SpO2: 99% HT: 172.7 cm No qualifying data available. Lab Results 03/13 06:30 WBC: 5.7 Hgb: 12.4 L Hct: 35.3 L Platelet: 214 Neutrophil %: 55.8 Glucose Level: 124 H Sodium Level: 141 Potassium Level: 4.1 BUN: 18.0 Creatinine Lvl (s): 0.87 03/11 20:23 WBC: 8.6 Hgb: 13.4 Hct: 39.2 L Platelet: 234 Neutrophil %: 62.6 Glucose Level: 134 H Sodium Level: 142 Potassium Level: 3.9 BUN: 18.0 Creatinine Lvl (s): 0.72 Problem List/Past Medical History Ongoing Asthma Diabetes Paranoid schizophrenia Sleep apnea Procedure/Surgical History No qualifying data available. Medications Inpatient Biofreeze gel packet, 1 kemi, Topical, BID ceFAZolin, 2 gram(s)= 20 mL, Intravenous, q8h Depakote Sprinkles, 125 mg= 1 cap(s), Oral, TID Dextrose 50% IV Push, 12.5 gram(s)= 25 mL, IV Push, AsDirected, PRN DuoNeb, 3 mL, Inhalation, q4hRT, PRN guaiFENesin, 200 mg= 10 mL, Oral, q4h, PRN levothyroxine, 50 mcg= 1 tab(s), Oral, acBreakfast lidocaine 1% preservative-free injectable solution, 30 mg= 3 mL, Intradermal, prep pharm lidocaine 1% preservative-free injectable solution, 30 mg= 3 mL, Intradermal, prep pharm LORazepam, 0.5 mg= 1 tab(s), Oral, BID, PRN LORazepam, 0.5 mg= 1 tab(s), Oral, BID melatonin, 5 mg= 1 tab(s), Oral, qHS Miralax Powder Packet, 17 gram(s)= 15 mL, Oral, qDay, PRN Miralax Powder Packet, 17 gram(s)= 15 mL, Oral, qDay nicotine 2 mg oral transmucosal gum, 2 mg= 1 EA, Chewed, AsDirected, PRN oxyCODONE 5 mg oral tablet ( IMMEDIATE release ), 5 mg= 1 tab(s), Oral, q6hr senna (sennosides) 8.6 mg oral tablet, 8.6 mg= 1 tab(s), Oral, BID traZODone, 50 mg= 1 tab(s), Oral, qHS Tylenol, 650 mg= 2 tab(s), Oral, q4h, PRN Tylenol, 650 mg= 2 tab(s), Oral, q4h, PRN ziprasidone, 20 mg= 1 cap(s), Oral, BID Home albuterol-ipratropium 2.5 mg-0.5 mg/3 mL inhalation solution, 3 mL, Nebulized, TID, PRN Biofreeze 4% topical gel, 1 kemi, Topical, BID ceFAZolin 2 g injection, 2 gram(s), Intravenous, q8h, Current Antibiotic Depakote Sprinkles 125 mg oral delayed release capsule, 125 mg= 1 cap(s), Oral, TID hydrocortisone 1% topical ointment, 1 kemi, Topical, BID levothyroxine 50 mcg (0.05 mg) oral tablet, 50 mcg= 1 tab(s), Oral, acBreakfast LORazepam 0.5 mg oral tablet, 0.5 mg= 1 tab(s), Oral, BID LORazepam 0.5 mg oral tablet, 0.5 mg= 1 tab(s), Oral, BID, PRN melatonin 5 mg oral tablet, 5 mg= 1 tab(s), Oral, qHS MiraLax oral powder for reconstitution, 17 gram(s), Oral, qDay Nizoral A-D 1% topical shampoo, 1 kemi, Topical, Friday & Friday oxyCODONE 5 mg oral tablet ( IMMEDIATE release ), 5 mg= 1 tab(s), Oral, q6hr senna (sennosides) 8.6 mg oral tablet, 8.6 mg= 1 tab(s), Oral, BID traZODone 50 mg oral tablet, 50 mg= 1 tab(s), Oral, qHS Tylenol 325 mg oral tablet, 650 mg= 2 tab(s), Oral, q6h, PRN ziprasidone 20 mg oral capsule, 20 mg= 1 cap(s), Oral, BID Allergies Haldol "psychotic hodan", insomnia RisperDAL tardive diskinesia, EPS metFORMIN Social History Smoking Status - 06/10/2018 Current every day smoker Alcohol - Denies Alcohol Use, 03/02/2018 Use: Current. Frequency: 1-2 times per week., 11/17/2023 Substance Abuse - Denies Substance Abuse, 03/02/2018 Use: Current. Type: Marijuana, Methamphetamines, Prescription medications. Frequency: 1-2 times per week., 11/17/2023 Tobacco Nicotine Use: 10 or more cigarettes (1/2 pack or more)/day in last 30 days. Type: Cigarettes., 11/17/2023 Family History Diabetes mellitus type 1: Mother. High blood pressure: Mother. Suicide: Father. Health Status Family Member(s) Immunizations pneumococcal 23-valent vaccine(Pneumovax: 0 unknown unit (04/13/15) rabies vaccine, purified chick embryo: 1 mL (03/16/18) rabies vaccine, purified chick embryo: 1 mL (03/09/18) rabies vaccine, purified chick embryo: 1 mL (03/05/18) rabies vaccine, purified chick embryo: 1 mL (03/02/18) SARS-CoV-2 (COVID-19) mRNA-1273 vaccine: 100 mcg (03/22/21) SARS-CoV-2 (COVID-19) mRNA-1273 vaccine: 100 mcg (02/22/21) tetanus/diphth/pertuss (Tdap) adult/adol: 0.5 mL (11/10/23) tetanus/diphth/pertuss (Tdap) adult/adol: 0.5 mL (03/02/18) tetanus/diphth/pertuss (Tdap) adult/adol: 0 unknown unit (12/12/16) Digitally Signed by LISA MENDOSA MD on 03/13/2024 08:39 AM [facility] 03-11-2024 Note ORIGINAL EXAMINATION: ONE XRAY VIEW OF THE CHEST 03/11/2024 10:31 pm COMPARISON: Radiograph of the chest February 14, 2024 HISTORY: ORDERING SYSTEM PROVIDED HISTORY: Reason for Exam: Confirm placement of PICC FINDINGS: Cardiomediastinal silhouette is unchanged in size. Costophrenic angles are sharp. No radiographic pneumothorax. No focal consolidation. Osseous structures grossly unchanged. No PICC line identified. IMPRESSION: No PICC line identified. Correlate with physical exam/site of reported PICC line insertion. Interpreted by: Tod Calderón Preliminary Report By: Tod Calderón Electronically signed By Tod Calderón Dictated Date: 03/11/2024 10:32:39 PM Prelim Date: 03/11/2024 10:35:25 PM Sign Date: 03/11/2024 10:35:25 PM Ordering Provider: LAKHWINDER HWITTAKER [facility] 03-11-2024 History and physical note [facility] Medicine Hospitalist History and Physical Date of Admission: patient is being admitted on March 11, 2024 Chief complaint: IV access History of present illness: History is taken from talking with emergency room physician Dr. Gutierrez as well as talking with the patient. Difficult obtain any history from the patient due to having schizophrenia and status post getting Geodon. Patient has a past medical history of schizophrenia, hypothyroidism, COPD. Patient was last discharged from here in April 2023 when he was here for acute hypoxic respiratory failure secondary to COPD exacerbation. All of note the patient was seen and [facility] emergency room on February 24, 2024 after the patient developed a hand injury after punching a window. The patient was then transferred to [facility] to be evaluated by orthopedic surgery. The patient had a PICC line placed and has been on IV antibiotics with antibiotic stop date on March 24. Today reportedly his PICC line came out and therefore he was sent here for PICC line placement. While here he was also agitated and therefore given a dose of Geodon. Since presenting to the emergency room the patient has been afebrile, hemodynamically stable, 95% room air. The following labs and imaging were personally reviewed CBC within normal limits BMP within normal limits In emergency room the patient was given Geodon and cefazolin. Past medical history: Asthma Depression Diabetes Paranoid schizophrenia Sleep apnea Tobacco use Tonsillectomy ORIF - Open reduction and internal fixation of fracture Family history: Mother: Diabetes mellitus type 1; High blood pressure Father: Suicide Social history: Denies smoking cigarettes or alcohol consumption Medications: Home Medications (16) Active albuterol-ipratropium 2.5 mg-0.5 mg/3 mL inhalation solution 3 mL, PRN, Nebulized, TID Biofreeze 4% topical gel 1 kemi, Topical, BID ceFAZolin 2 g injection 2 gram(s), Intravenous, q8h Depakote Sprinkles 125 mg oral delayed release capsule 125 mg = 1 cap(s), Oral, TID hydrocortisone 1% topical ointment 1 kemi, Topical, BID levothyroxine 50 mcg (0.05 mg) oral tablet 50 mcg = 1 tab(s), Oral, acBreakfast LORazepam 0.5 mg oral tablet 0.5 mg = 1 tab(s), Oral, BID LORazepam 0.5 mg oral tablet 0.5 mg = 1 tab(s), PRN, Oral, BID melatonin 5 mg oral tablet 5 mg = 1 tab(s), Oral, qHS MiraLax oral powder for reconstitution 17 gram(s), Oral, qDay Nizoral A-D 1% topical shampoo 1 kemi, Topical, Friday & Friday oxyCODONE 5 mg oral tablet ( IMMEDIATE release ) 5 mg = 1 tab(s), Oral, q6hr senna (sennosides) 8.6 mg oral tablet 8.6 mg = 1 tab(s), Oral, BID traZODone 50 mg oral tablet 50 mg = 1 tab(s), Oral, qHS Tylenol 325 mg oral tablet 650 mg = 2 tab(s), PRN, Oral, q6h ziprasidone 20 mg oral capsule 20 mg = 1 cap(s), Oral, BID Allergies: Haldol (insomnia,"psychotic hodan") metFORMIN RisperDAL (EPS,tardive diskinesia) Review of systems: See HPI for pertinent positives and negatives. All other review of systems have been reviewed and they are negative. Vitals Signs(Last 24 hrs)__Last Charted Minimum Max imum SBPH 164(MAR 11 17:30)H 164(MAR 11 17:30)H 164(MAR 11 17:30) DBP88(MAR 11 17:30)88(MAR 11 17:30)88(MAR 11 17:30) Physical examination: HEENT: No Pallor, No Icterus Cardiac: RRR, No murmur Lungs: CTA, good air entry Abdomen: Soft Non tender Musculoskeletal: No joint pains or swelling Extremities: No edema, good pulses Neurological: Alert but difficult to arouse and confused Skin: No rash, no nodules Labs: WBC: 8.6 10^3/mcL (03/11/24 20:23:00) RBC: 4.74 10^6/mcL (03/11/24 20:23:00) Hgb: 13.4 G/dL (03/11/24 20:23:00) Hct: 39.2 % Low (03/11/24 20:23:00) MCV: 82.6 fL (03/11/24 20:23:00) MCH: 28.2 pg (03/11/24 20:23:00) MCHC: 34.2 G/dL (03/11/24 20:23:00) RDW: 14.8 % (03/11/24 20:23:00) Platelet: 234 10^3/mcL (03/11/24 20:23:00) MPV: 7.9 fL (03/11/24 20:23:00) Monocyte Distribution Width: 18.36 (03/11/24 20:23:00) Neutrophil %: 62.6 % (03/11/24 20:23:00) Lymphocyte %: 27.9 % (03/11/24 20:23:00) Monocyte %: 7.8 % (03/11/24 20:23:00) Eosinophil %: 1.3 % (03/11/24 20:23:00) Basophil %: 0.4 % (03/11/24 20:23:00) Neutrophil, Absolute: 5.4 10^3/mcL (03/11/24 20:23:00) Lymphocyte, Absolute: 2.4 10^3/mcL (03/11/24 20:23:00) Monocyte, Absolute: 0.7 10^3/mcL (03/11/24 20:23:00) Eosinophil, Absolute: 0.1 10^3/mcL (03/11/24 20:23:00) Basophil, Absolute: 0 10^3/mcL (03/11/24 20:23:00) Glucose Level: 134 mg/dL High (03/11/24 20:23:00) Sodium Level: 142 mEq/L (03/11/24 20:23:00) Potassium Level: 3.9 mEq/L (03/11/24 20:23:00) Chloride: 107 mEq/L (03/11/24 20:23:00) CO2: 27 mEq/L (03/11/24 20:23:00) Electrolyte Balance: 8 mEq/L (03/11/24 20:23:00) BUN: 18 mg/dL (03/11/24::00) Creatinine Lvl (s): 0.72 mg/dL (03/11/24:23:00) BUN/Creatinine Ratio: 25 ratio High (03/11/24 20:23:00) Calcium Lvl: 9.3 mg/dL (03/11/24::00) GFR Non-: >60 (03/11/24:23:00) GFR : >60 (03/11/24:23:00) No qualifying data available. Assessment and plan: Patient presents on March 11, 2024 for PICC line placement. PICC line complication. Unclear if he pulled out his PICC line or if it just came out. Will order to have a PICC line placed. Schizophrenia. Continue home medications Hypothyroidism. Continue medications Chronic COPD not in exacerbation Hand injury follows with orthopedic surgery at [facility] on IV antibiotics until March 24. Routine outpatient follow-up with [facility]. Prophylaxis SCDs Code status full code Digitally Signed by LAKHWINDER WHITTAKER MD on 03/11/2024 10:17 PM [facility] 03-11-2024 Evaluation + Plan note Extrac kiah from: Title:Clinical Document Author:LAKHWINDER WHITTAKER MD Date:03/11/24 [facility] Hospitalist History and Physical Date of Admission: patient is being admitted on March 11, 2024 Chief complaint: IV access History of present illness: History is taken from talking with emergency room physician Dr. Gutierrez as well as talking with the patient. Difficult obtain any history from the patient due to having schizophrenia and status post getting Geodon. Patient has a past medical history of schizophrenia, hypothyroidism, COPD. Patient was last discharged from here in April 2023 when he was here for acute hypoxic respiratory failure secondary to COPD exacerbation. All of note the patient was seen and [facility] emergency room on February 24, 2024 after the patient developed a hand injury after punching a window. The patient was then transferred to [facility] to be evaluated by orthopedic surgery. The patient had a PICC line placed and has been on IV antibiotics with antibiotic stop date on March 24. Today reportedly his PICC line came out and therefore he was sent here for PICC line placement. While here he was also agitated and therefore given a dose of Geodon. Since presenting to the emergency room the patient has been afebrile, hemodynamically stable, 95% room air. The following labs and imaging were personally reviewed CBC within normal limits BMP within normal limits In emergency room the patient was given Geodon and cefazolin. Past medical history: Asthma Depression Diabetes Paranoid schizophrenia Sleep apnea Tobacco use Tonsillectomy ORIF - Open reduction and internal fixation of fracture Family history: Mother: Diabetes mellitus type 1; High blood pressure Father: Suicide Social history: Denies smoking cigarettes or alcohol consumption Medications: Home Medications (16) Active albuterol-ipratropium 2.5 mg-0.5 mg/3 mL inhalation solution 3 mL, PRN, Nebulized, TID Biofreeze 4% topical gel 1 kemi, Topical, BID ceFAZolin 2 g injection 2 gram(s), Intravenous, q8h Depakote Sprinkles 125 mg oral delayed release capsule 125 mg = 1 cap(s), Oral, TID hydrocortisone 1% topical ointment 1 kemi, Topical, BID levothyroxine 50 mcg (0.05 mg) oral tablet 50 mcg = 1 tab(s), Oral, acBreakfast LORazepam 0.5 mg oral tablet 0.5 mg = 1 tab(s), Oral, BID LORazepam 0.5 mg oral tablet 0.5 mg = 1 tab(s), PRN, Oral, BID melatonin 5 mg oral tablet 5 mg = 1 tab(s), Oral, qHS MiraLax oral powder for reconstitution 17 gram(s), Oral, qDay Nizoral A-D 1% topical shampoo 1 kemi, Topical, Friday & Friday oxyCODONE 5 mg oral tablet ( IMMEDIATE release ) 5 mg = 1 tab(s), Oral, q6hr senna (sennosides) 8.6 mg oral tablet 8.6 mg = 1 tab(s), Oral, BID traZODone 50 mg oral tablet 50 mg = 1 tab(s), Oral, qHS Tylenol 325 mg oral tablet 650 mg = 2 tab(s), PRN, Oral, q6h ziprasidone 20 mg oral capsule 20 mg = 1 cap(s), Oral, BID Allergies: Haldol (insomnia,"psychotic hodan") metFORMIN RisperDAL (EPS,tardive diskinesia) Review of systems: See HPI for pertinent positives and negatives. All other review of systems have been reviewed and they are negative. Vitals Signs(Last 24 hrs)__Last Charted Minimum Maximum SBPH 164(MAR 11 17:30)H 164(MAR 11 17:30)H 164(MAR 11 17:30) DBP88(MAR 11 17:30)88(MAR 11 17:30)88(MAR 11 17:30) Physical examination: HEENT: No Pallor, No Icterus Cardiac: RRR, No murmur Lungs: CTA, good air entry Abdomen: Soft Non tender Musculoskeletal: No joint pains or swelling Extremities: No edema, good pulses Neurological: Alert but difficult to arouse and confused Skin: No rash, no nodules Labs: WBC: 8.6 10^3/mcL (03/11/24 20:23:00) RBC: 4.74 10^6/mcL (03/11/24:23:00) Hgb: 13.4 G/dL (03/11/24 20:23:00) Hct: 39.2 % Low (03/11/24 20:23:00) MCV: 82.6 fL (03/11/24 20:23:00) MCH: 28.2 pg (03/11/24 20:23:00) MCHC: 34.2 G/dL (03/11/24 20:23:00) RDW: 14.8 % (03/11/24 20:23:00) Platelet: 234 10^3/mcL (03/11/24 20:23:00) MPV: 7.9 fL (03/11/24 20:23:00) Monocyte Distribution Width: 18.36 (03/11/24 20:23:00) Neutrophil %: 62.6 % (03/11/24 20:23:00) Lymphocyte %: 27.9 % (03/11/24 20:23:00) Monocyte %: 7.8 % (03/11/24 20:23:00) Eosinophil %: 1.3 % (03/11/24 20:23:00) Basophil %: 0.4 % (03/11/24 20:23:00) Neutrophil, Absolute: 5.4 10^3/mcL (03/11/24 20:23:00) Lymphocyte, Absolute: 2.4 10^3/mcL (03/11/24 20:23:00) Monocyte, Absolute: 0.7 10^3/mcL (03/11/24 20:23:00) Eosinophil, Absolute: 0.1 10^3/mcL (03/11/24 20:23:00) Basophil, Absolute: 0 10^3/mcL (03/11/24 20:23:00) Glucose Level: 134 mg/dL High (03/11/24 20:23:00) Sodium Level: 142 mEq/L (03/11/24 20:23:00) Potassium Level: 3.9 mEq/L (03/11/24 20:23:00) Chloride: 107 mEq/L (03/11/24:23:00) CO2: 27 mEq/L (03/11/24:23:00) Electrolyte Balance: 8 mEq/L (03/11/24 20:23:00) BUN: 18 mg/dL (03/11/24 20:23:00) Creatinine Lvl (s): 0.72 mg/dL (03/11/24 20:23:00) BUN/Creatinine Ratio: 25 ratio High (03/11/24 20:23:00) Calcium Lvl: 9.3 mg/dL (03/11/24 20:23:00) GFR Non-: >60 (03/11/24 20:23:00) GFR : >60 (03/11/24 20:23:00) No qualifying data available. Assessment and plan: Patient presents on March 11, 2024 for PICC line placement. PICC line complication. Unclear if he pulled out his PICC line or if it just came out. Will order to have a PICC line placed. Schizophrenia. Continue home medications Hypothyroidism. Continue medications Chronic COPD not in exacerbation Hand injury follows with orthopedic surgery at [facility] on IV antibiotics until March 24. Routine outpatient follow-up with [facility]. Prophylaxis SCDs Code status full code [facility] 06-04-2024 Miscellaneous Notes* Care Coordination - Unknown Case Management - 03/02/2024 11:57 AM EDT Patient Choice Patient Name: TALIA RUBY Date of : 1980 All Providers Sent Referral Name: [facility] Phone: [phone] Address: [address] [place], [place] [id number] Name: [facility] Address: [address] [place] [address] Name: [facility] Phone: [phone] Address: [address] [id number] * Care Coordination - Ligia Vo RN - 03/02/2024 11:57 AM EDT [place]ockee message sent to [facility] to complete [id number] and send all discharge documents to [facility]. * Care Coordination - Gege Shin - 03/02/2024 11:57 AM EDT Discharge med list transmitted to [facility] via Careport per [facility] request. 7000 completed in [facility] per [facility] request. Facility notified via [facility]. * Care Coordination - REMIGIO Wilson - 03/02/2024 11:28 AM EDT TCC informed SW of discharge plans today and requested SW schedule transport to [facility]. SW requested transport through [facility], slight delay as [facility] system was briefly down, received confirmation text authorizing cot transport from [facility] for today to [facility] pick uptime 11:30 am. SW notified TCC, bedside nurse, and community advocate via secured chat. Notified facility and via CarePort. SW met w/ Pt and informed of transport plans, including separate billing and possible time delay. Pt was talking on the phone as SW entered room. Pt reported he is doing well, reported no issues withtransport plans to facility. Pt declined SW offer to call family or supports to notify of discharge. Pt stated he just got off the phone with his mother and already notified her of discharge today. Pt agreeable for SW to call his outpatient Tx team to notify of discharge plans. Pt reported he has a good relationship with his 87 year old mother who suffers from dementia. Pt reported he prefers to not return to the trailer with his sister that is located at his mothers residence. Pt reported "There is really no place to bathe there". Pt reported though he has a good relationship with is mother, he is unable to bathe at his mothers home as she has "bad well water" that is not usable to bathe in, and there is no shower curtain. Pt reported his mother needs a new well. SW discussed benefits of following up with his supportive outpatient Tx team and Pt agreed it is tohis benefit to keep open line of communication and consistent follow up with outpatient providers. Pt reported he is agreeable to stay at facility for as long as needed, and will follow up with providers including CM who is assisting him in applying for subsidized housing. Pt reported no other issues for SW to address at this time. RICE phone call to Jaci #[phone], Adult Guardianship telephone operators supervisor listed as emergency contact in Pt chart and left VM message informing of discharge plans including address and phone number for [facility] facility. BEATRICE phone call with Director of Adult CM Antonella #[phone] (cell) and informed of discharge plansand discussed Pt's follow up. Antonella reported plans to notify Pt's Tx team of discharge plans. * Care Coordination - Ligia Vo RN - 03/02/2024 8:59 AM EDT Pt to be discharged to [facility] today. Bedside RN And SW are aware. [employer] Board Certified Orthotist and Facility also aware. At this time, transport site is down. SW will attempt to schedule transport as soonas site is back up. * Care Plan - Micha Guerra RN - 03/02/2024 12:43 AM EDT Problem: Pain - Adult Goal: Verbalizes/displays adequate comfort level or baseline comfort level Outcome: Progressing The patient is The patient's goals for the shift include The clinical goals for the shift include Sleep Over the shift, the patient did not make progress toward the following goals. Barriers to progression include . Recommendations to address these barriers include . * Care Coordination - Citlaly Jack - 03/01/2024 3:12 PM EDT Updated notes placed to SN[facility] request. Await review and response regarding ability to accept. TCC notified. * Care Coordination - Ligia oV RN - 03/01/2024 2:49 PM EDT Images from the original note were not included. Care Management Progress Note Pt remains on H5. He has been accepted at [facility] in [place]. Pt had picc line placed today for longterm iv therapy through 03/24. Tcc continues to await final ID iv abx orders to send to facility. Anticipate dc to facility tomorrow. 3:12 p.m. IV abx orders have been placed under media tab but there is no note from ID and no okay to use picc line order. Tcc will work on discharge tomorrow. Discharge Milestones and Delays Expected Date/Time: 03/01/2024 Afternoon Disposition: Care Home Facility Transport status: No current request Discharge Milestones Place discharge order Complete med reconciliation Case mgmt discharge readiness Clinical Stability Diagnsotic Workup Expected Discharge History Expected Date/Time Set By Reviewed At 03/01/2024 Afternoon Isaac Marcos, 03/01/2024 12:28 PM pending PICC placement and final ID recs, pending facility acceptance, medical clearance, and completion of discharge orders" 03/02/2024 Ligia Vo RN 03/01/2024 6:31 AM 03/01/2024 Makenna Floyd RN 02/28/2024 11:35 AM 03/29/2024 Ligia Vo RN 02/27/2024 6:29 AM 02/28/2024 Ligia Vo RN 02/26/2024 6:31 AM 02/28/2024 Enzo Mayer MD 02/25/2024 10:01 AM 02/28/2024 Enzo Mayer MD 02/25/2024 5:43 AM Length of Stay (Days): 5 GMLOS: 3.9 * Care Plan - Christoph Tom RN - 02/28/2024 5:07 PM EDT Problem: Pain - Adult Goal: Verbalizes/displays adequate comfort level or baseline comfort level Outcome: Progressing Problem: Safety - Adult Goal: Free from fall injury Outcome: Progressing Problem: Discharge Planning Goal: Discharge to home or other facility with appropriate resources Outcome: Progressing Problem: Chronic Conditions and Co-morbidities Goal: Patient's chronic conditions and co-morbidity symptoms are monitored and maintained or improved Outcome: Progressing Problem: Knowledge Deficit Goal: Patient/family/caregiver demonstrates understanding of disease process, treatment plan, medications, and discharge instructions Outcome: Progressing Problem: Potential for Compromised Skin Integrity Goal: Skin Integrity is Maintained or Improved Outcome: Progressing Goal: Nutritional status is improving Outcome: Progressing Problem: Urinary Incontinence Goal: Perineal skin integrity is maintained or improved Outcome: Progressing The patient is Moderately Stable - Low risk of patient condition declining or worsening * Care Coordination - Makenna Floyd RN - 02/28/2024 10:43 AM EDT Images from the original note were not included. CARE COORDINATION DAILY NOTE/UPDATE Discharge Plan: [facility], AND [facility] Discharge Barriers: pending PICC placement and final ID recs, pending facility acceptance, medical clearance, and completion of discharge orders This TCC was tasked to follow this patient through the weekend assisting with discharge planning and to check on referrals in careport. Chart and careport reviewed. No referrals noted in careport. This TCC placed referrals to listed facility choices. Expected discharge, Discharge Milestones, and Rapid Rounding reviewed and updated. TCC will continue to follow. Discharge Milestones and Delays Expected Date/Time: 03/01/[address] discharge order Complete med reconciliation Case mgmt discharge readiness Clinical Stability Diagnsotic Workup Expected Discharge History Expected Date/Time Set By Reviewed At 03/01/2024 Makenna Floyd RN 02/28/2024 11:35 AM pending PICC placement and final ID recs, pending facility acceptance, medical clearance, and completion of discharge orders" 03/29/2024 Ligia Vo RN 02/27/2024 6:29 AM 02/28/2024 Ligia Vo RN 02/26/2024 6:31 AM 02/28/2024 Enzo Mayer MD 02/25/2024 10:01 AM 02/28/2024 Enzo Mayer MD 02/25/2024 5:43 AM Length of Stay (Days): 3 GMLOS: 3.9 * Care Coordination - REMIGIO Wilson - 02/27/2024 5:00 PM EDT BEATRICE phone call from Antonella Director of Adult CM Services #[phone] (cell) and discussed Pt current status and discharge plans. BEATRICE reported possible discharge plan to facility for rehabilitation. Antonella reported Pt able to return to address located in Pt chart and CM will continue to work w / Pt in finding other housing. BEATRICE reported to have outreached Psych and requested Expert Eval be completed while inpatient status,but was informed EE should be completed by outpatient psychiatrist. Antonella reported Pt has a scheduled appt w/ outpatient psychiatrist on 04/06/24 w / Dr Dickinson, but high likelyhood Pt may not follow up with scheduled appt.. BEATRICE reported plans to notify Antonella spencer of Pt's discharge. * Care Coordination - Ligia Vo RN - 02/27/2024 2:39 PM EDT Images from the original note were not included. Care Management Progress Note Pt remains on H5. Tcc did notify OT this am that pt was "see today". OT did stop by around lunch and pt asked if they could return. I have sent OT a secure message to see if they can return and evaluate pt so that I can start precert for snf placement. Pt is ready for discharge. Discharge Milestones and Delays Expected Date/Time: 03/29/[address] discharge order Complete med reconciliation Case mgmt discharge readiness Clinical Stability Diagnsotic Workup Expected Discharge History Expected Date/Time Set By Reviewed At 03/29/2024 Ligia Vo RN 02/27/2024 6:29 AM 02/28/2024 Ligia Vo RN 02/26/2024 6:31 AM 02/28/2024 Enzo Mayer MD 02/25/2024 10:01 AM 02/28/2024 Enzo Mayer MD 02/25/2024 5:43 AM Length of Stay (Days): 2 GMLOS: 3.9 * Care Coordination - Ligia Vo RN - 02/26/2024 1:08 PM EDT Care Managment Initial Assessment Date: 02/26/2024 Patient Name: Talia Ruby : 1980 Patient Information Source of Information: Patient Cognition/Language: WFL - Within Functional Limits Permission given to speak with patient tour sales representative/caregiver as indicated: Confirmation of Payer with patient/family: Yes Payer Name: Medicare A/B [place]: No Confirmation of Primary Care Physician: No PCP Primary Caregiver: Self If assistance needed, confirmed caregiver ready, willing and able to care for patient at discharge: Confirmed with: Living Arrangements Current Residence: (trailer behind parents' house) Number of Floors 1 Number of Entry Steps: 4 Bed/Bath Levels: Both first floor Facility: Facility Name: Plan to Return: Lives with: (sister) Support Systems: Parent, Family members, sound effects manager/social work case manager (sound effects manager Jaci Leger [phone]) Activities of Daily Living Ambulation: Independent (uses crutch) Bathing/Dressing: Independent Elimination/Continence/Toileting: Independent Feeding: Independent Who Assists with Activities of Daily Living: Instrumental Activities of Daily Living Prescription Coverage: Yes [facility]acy Used: [facility] Medication Management: Independent Transportation/Shopping: Independent Transportation Mode: Car Needs Assistance with Transportation at Discharge: Yes Meal Preparation: Independent Laundry/Cleaning: Independent Finances/Bill Paying: Independent Communication: Independent Types of Care Services/Equipment Utilized Care Services: Dialysis Type: Durable Medical Equipment: Other (Comment) DME Provider: [email or web address] Patient's Goal/Discharge Plan Patient expects to be discharged to: SNF placement Discharge Planning Actions: Continue to follow Patient's Choice Rights and [employer] and Collaborative Relationships Disclosed as Indicated for Post-Acute Care: Interdisciplinary Team Engagement: Social Work Referral for: Additional Information: 43 yo male admitted to , transferred from [facility] ED for hand surgery eval. Pt went to OR on 02/24for I&D L hand and long finger MC joint after unknown injury. Pt is on iv vanc and zosyn; ID following. PT/OT evals have been ordered. Pt does have a supervisor case loading: Jaci Leger. Jaci is requesting expert eval so that she can become pt's legal guardian. Pt is alert and oriented x 3 but appear s to have some mental deficiency. L had is splinted and wrapped but pt states he is having trouble now using his R hand. Pt independent; states he does drive. Pt would like to go to facility as he states he can no longer live in trailer with his sister and he cannot live with his mom. Tcc will follow for dc planning. Ligia Vo RN * Care Coordination - REMIGIO Wilson - 02/26/2024 12:21 PM EDT SW follow up: SW outreach to Psych via secured chat and relayed information from prior note, Jaci, who is listed as emergency contact in chart, and identified self as Guardianship Casual Shoe Inspector #[phone], is requesting Expert Eval completed while inpatient status so she can submit guardianship application. Jaci reported she attempted to get EE completed while Pt was outpatient status but was not successful due Pt was either in and out of the hospital or did not follow up for Tx for Dr to meet w/ Pt to complete evaluation. SW follow up w / SW telephone operators supervisor and informed emergency contact Jaci is listed as Guardian in chart but reported she is not legal guardian, in process of completing application. SW was referred to change status in chart. SW changed Jaci from Legal Guardian status to CM. SW met w / Pt, introduced self, explained role, and assessed for supports and community resource needs. Pt presented as pleasant and cooperative and engaged in ongoing conversation. Pt stated he lives in [facility], but has no set residence, at times stays in a trailer with his sister and sisters child which is located behind his mothers home. Pt reported he receives SSD income of roughly $1100 month for mental health and physical disability, is working with his CM from outpatient mental health clinic to apply for subsidized housing, but could not remember CM name. Pt reported he needs assistance getting a foodstamp card and has not been taking his medications as"they make my head not work". Pt reported he ended up in the hospital because "I fell into a windowand hurt my hand". Pt stated he recently followed up with his PCP Dr. Crow Matute #[phone] located in [place]. He stated he has scheduled surgery on 03/15/24 to get his leg amputated. Pt repo rted "I broke my leg so many times they gave me the option to cut it off because I don't take care off it". Pt stated he is not able to care for himself as his right hand does not work properly, stating his belief he might have had a stroke, and stated he can't use his left hand due to the current injury. Pt reported no supports at home stating his desire for discharge to rehab until he can care for himself. SW reported plans to follow up with his CM and TCC. SW referred Pt to outreach SW as needed. SW spoke w / TCC and reported above documented information. SW phone call w / Guardian Manager Payer Jaci and discussed above documented information. Jaci reported Pt follows up with CM from Outpatient clinic, Eduarda, josefinaure of contact # but informed of Director of Adult CM at clinic Antonella Leonard # [phone] as well as informed of Assisted Oupatient Tx (AOT) Enoch Nowakie #[phone]. Jaci reported Pt is not part of AOT at this time butthey are in process of trying to get Pt into this court ordered program. Jaci reported CM Eduarda would be field contact technician for assisting Pt in follow up with subsidized housing and foodstamps. BEATRICE phone to Director of Adult CM at [facility] clinic Antonella Leonard # [phone] x [phone] and left VM message requesting return call. SW following * Care Coordination - REMIGIO Wilson - 02/25/2024 3:55 PM EDT BEATRICE phone call to person listed as Guardian in Pt's chart, Jaci, who reported she is not Pt's legal guardian but is a guardian through [facility] and is in processof completing application to become Guardian. Jaci is requesting that [facility] complete Expert Evaluation paperwork so she can completed the application and submit. BEATRICE to relay information to Pt's Tx team including TCC. Jaci reported Pt has been in and out of the hospital several times, follows up with services from [facility], among providers at facility are Dr. Bhardwaj and FLANGE MACHINE OPERATOR Lisa Winters who provides med management. Jaci reported recent decline in Pt's health, believes Pt is in need of LOC due to medical issues related to DM and mental health. Jaci stated she could not verify Pt follows up with a PCP and stated Pt was living in a trailer behind his mothers homeand plan is to return to this location at [address] [place] [address] in [facility]. BEATRICE gave Jaci BEATRICE contact information and referred to call if needed. * Care Coordination - REMIGIO Wilson - 02/25/2024 3:41 PM EDT SW attempted to visit w / Pt, however Pt was resting, did not awake when calling his name, SW plan to try visit again at another time. * Care Coordination - Anselmo Aguiar MD - 02/25/2024 2:36 PM EDT Patient unable to complete psychiatric consultation d/t somnolence, Psychiatry will follow up tomorrow. * Op Note - Micha Fischer MD - 02/25/2024 7:32 AM EDT OPERATIVE NOTE DATE/TIME OF SURGERY: February 25, 2024 Patient Name: Talia Ruby: INDICATION FOR SURGERY: This is a 43-year-old male who was transferred from an outside hospital. Hestated approxi-1 week ago he put his left hand through a glass window and suffered a laceration over the left long finger MP joint. In the past several days he has had increasing pain, swelling and now drainage. His hand is swollen and he has an extensor lag. 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 The patient was then seen and examined and he has a open wound consistent with a traumatic arthrotomy and infection of the MP joint. He also appears to have an extensor tendon injury. Treatment options were explained to him and he is willing to proceed with surgical intervention. He understands that he will need immobilization and rehabilitation. He could need further surgery. He may never get all of his motion back and most likely the wound will be left open and he will need further wound careand IV antibiotics. General risks of surgery including anesthesia, reaction of medicine including , unsightly skin incision, continued or chronic pain, inability to return to previous functional capacity either at home or at work, risk of chronic pain syndrome and chronic infection were reviewed. He stated he understood these risks and wished to proceed no guarantees were stated or implied PREOPERATIVE DIAGNOSES: 1. Infection Left Long MPJ 2. Lacerated Extensor tendon left long finger POSTOPERATIVE DIAGNOSES: 1. Infection Left Long MPJ 2. Lacerated Extensor tendon left long finger PROCEDURE: 1. Arthotomy and Synovectomy Left Long MPJ 2. Repair Extensor Tendon Left Long Finger 3. I & D Left 2nd and 3rd Web Spaces SURGEON: Micha Fischer MD MIRROR POLISHER: Shahram Jacobo MD ANESTHESIA: General ESTIMATED BLOOD LOSS: 4 CC URINE OUTPUT: Per Anesthesia FINDINGS: See Op Note SPECIMEN: Cultures COMPLICATIONS: None TECHNIQUE: After the patient was examined in the preop area and the correct extremity was identified and marked, the patient was taken to the operating room where a general anesthesia was then administered. His arm was then prepped and draped in usual sterile fashion with Betadine. A timeout was performed and agreed to by all operating room personnel present. The arm was then Esmarched and the tourniquet inflated to 250 mmHg. We extended his open wound overthe MP joint both proximally and distally in a lazy S type fashion. Dissection was then carried down to the extensor tendon which we could see was obviously damaged and was fibrotic and frayed over the MP joint. The MP joint had a traumatic arthrotomy. There was chronic fibrinous and infected looking tissue. We not only cultured this with a swab but sent tissue as well. We then performed an I&D and debrided this fibrotic, infected looking tissue all along the course of the extensor tendon. There was a complete laceration of the extensor tendon near the MP joint level. Next we explored both the second and the third web spaces to ensure that there was no evidence of acollar-button abscess and none was found. We then explored the MP joint and did not find any foreign bodies. We did a dorsal capsulectomy andsynovectomy. Overall the articular cartilage looked normal on both sides of the joint. We then copiously irrigated the joint and the wound with 3 L of saline. Next, we repaired the extensor tendon with 3-0 nylon suture. The tourniquet was then deflated and hemostasis achieved. We loosely closed his incision leaving the original portion of the open wound intact. We then packed this area into the joint and into the webspaces with quarter inch iodoform gauze. Dressing consisted of Adaptic, bacitracin ointment, fluffy hand gauze, Kerlix and a resting hand splint. He was awakened and taken to the recovery area in satisfactory condition. IMPLANTED DEVICES: Packing X 1 IMAGES: None MICHA FISCHER MD * Brief Op Note - Shahram Jacobo MD - 02/25/2024 7:32 AM EDT Date: 02/25/2024 Location: [facility] OR Name: Talia Ruby, : 1980, Diagnosis Pre-op Diagnosis * Pyogenic arthritis of left hand, due to unspecified organism (HCC) [M00.9] Post-op Diagnosis * Pyogenic arthritis of left hand, due to unspecified organism (HCC) [M00.9] Procedures IRRIGATION AND DEBRIDEMENT HAND AND LONG FINGER METACARPOPHALANGEAL JOINT 16507 - SD DEBRIDEMENT BONE 1ST 20 SQ CM/< Extensor tendon repair L LF Surgeons * Micha Fischer - Primary Procedure Summary Anesthesia: Choice ASA: III Estimated Blood Loss: 2 mL Drains: * None in log * Specimens ID Source Type Tests Collected By Collected At Frozen? Priority Lab ID A Finger, Left Swab FUNGAL CULTURE AEROBIC AND ANAEROBIC CULTURE WITH STAIN Micha Fischer MD 02/25/24 0808 [id number], [id number], [id number] Description: LEFT LONG FINGER Staff: Board Writer: Micha Miranda RN Scrub Person: Natividad Funez Findings: ruptured extensor tendon, joint arthrotomy, gaudencio purulence with necrotic tissue, cartilage appeared healthy Complications: None; patient tolerated the procedure well. Specimens Collected: Order Name Source Comment Collection Info Order Time FUNGAL CULTURE Finger, Left Collected By: Micha Fischer MD 02/25/2024 8:09 AM AEROBIC AND ANAEROBIC CULTURE WITH STAIN Finger, Left Collected By: Micha Fischer MD 02/25/2024 8:09 AM HEMOGLOBIN A1C Blood, Venous If not done within the last 3 mos Collected By: Maurice Martinez RN 02/25/2024 7:05 AM Wound Class: Class IV: Dirty Blood Products: None Prophylactic Antibiotics: Procedure appropriate prophylactic antibiotic(s) given within 1 hour of surgical incision (two hours if receiving Vancomycin or flouroquinolone) Postop plan: NWB LUE No plan for RLE while here. Patient has BKA set up with outside hospital Keep splint c/d/I Start soaks 02/25 with hibiclens+water. Perform TID and repack after each soak. Resplint after each soak Abx per med/ID Ice/elevate Cx p Recommend psychiatry c/s while in house to optimize medications Medical management/pain control per primary Ortho to follow peripherally. 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 Shahram Jacobo MD Orthopaedic Surgery PGY-4 *[id number] documented in this en[id number] Note* Care Coordination - Unknown Case Management - 03/02/2024 11:57 AM EDT Patient Choice Patient Name: TALIA RUBY Date of : 1980 All Providers Sent Referral Name: [facility] Phone: [phone] Address: [address] [place] [address] Name: [facility], [facility]. Address: [address] [place] [address] Name: [facility] Phone: [phone] Address: [address] [place] [address] [facility] [id number] Note* Care Coordination - Ligia Vo RN - 03/02/2024 11:57 AM EDT Pockee message sent to [facility] to complete 7000 and send all discharge documents to [facility]. [facility] [id number] Note* Care Coordination - Gege Shin - 03/02/2024 11:57 AM EDT Discharge med list transmitted to [facility] via Careport per TCC request. 7000 completed in [facility] per TCC request. Facility notified via careport. [facility] [id number] Note* Care Coordination - Unknown Case Management - 03/02/2024 11:57 AM EDT Patient Choice Patient Name: TALIA RUBY Date of : 1980 All Providers Sent Referral Name: [facility] Phone: [phone] Address: [facility] [place] [address] [facility] Address: [address] [place] [address] Name: [facility] Phone: [phone] Address: [address] [place] [address] [facility] [id number] Note* Care Coordination - Ligia Vo RN - 03/02/2024 11:57 AM EDT Pockee message sent to [facility] to complete 7000 and send all discharge documents to [facility]. [facility] [id number] Note* Care Coordination - Gege Shin - 03/02/2024 11:57 AM EDT Discharge med list transmitted to [facility] via Careport per TCC request. 7000 completed in [facility] per TCC request. Facility notified via careport. [facility] [id number] History of Present illness Narrative* Nany Jackson PTA - 03/02/2024 11:55 AM EDT Images from the original note were not included. PHYSICAL THERAPY [facility] Name/MRN: Talia Ruby ([id number]) Date: 03/02/2024 Chart review completed this date. PT attempted. RN reports pt discharging at this time. Transport is on the way up to get pt at this time. PT will continue to follow. Will re-attempt another time/date as schedule permits. Nany Jackson, GENERAL OPERATOR * Randy Drummond MD - 03/02/2024 8:23 AM EDT Hospitalist Progress Note 03/02/2024 8:23 AM [phone]: Please page me for patient care issues. [phone]: Please page [facility] night Hospitalist for any issues. Subjective: Admit Date: 02/25/2024 PCP: No primary care provider on file. Room#: H-5120/H-5120 A Interval History: Patient seen and examined 43-year-old male past medical history of obesity, bipolar disorder, bronchial asthma, diet-controlled diabetes mellitus, hyperlipidemia, hypothyroidism, MAXIMO noncompliant with CPAP, chronic smoking history, previous history of right leg fracture, at the age of 16 years according to patient. pt was seen at [facility] ED after putting his hand threw a windshield (fall vs punch?) about a week ago and had progressively worsening hand pain, swelling and purulent drainage and unable to make a fist. Workup during this admission was consistent with left middle finger MCP joint septic arthritis, lacerated extensor tendon on left long finger, status post arthrotomy and synovectomy of left long MPJ, repair of extensor tendon on left long finger, I&D of left second and third webspace done on 02/25/2024. Blood culture was negative, culture from left middle finger was positive for MSSA. Seen by infectious disease team, started on broad-spectrum of antibiotic, recommended IV Ancef with stop date of 03/24/2024. Patient was also complaining of constipation, currently on MiraLAX. He also had diet-controlled diabetes mellitus, A1c of 6.3. Patient was seen by psychiatric team with diagnosis of schizophrenia versus bipolar disorder/PTSD, Depakote, gabapentin, Seroquel was discontinued per patient request by psychiatric team. Recommended to continue melatonin 5 mg at bedtime. Trazodone as needed for insomnia. Zyprexa p.o. as needed for agitation. Patient had right upper extremity PICC line placed on 03/01/2024. Denies any chest pain, shortness of breath, cough No nausea, vomiting, abdominal pain Complain of constipation No fever spike noted Lab data's / Imaging studies reviewed A1c 6.3, creatinine 0.8, LFT panel normal, hemoglobin 13.6 Past medical history : Past Medical History: Diagnosis Date Asthma Bipolar disorder (HCC) Diabetes mellitus (HCC) ETOH abuse HTN (hypertension) Hyperlipidemia MAXIMO on CPAP PTSD (post-traumatic stress disorder) 2/2 witness suicide as a child T2DM (type 2 diabetes mellitus) (HCC) Tobacco abuse Adult diet Regular; 5 carb choices (75 gm/meal) @[id number]@ Medications: atorvastatin, 20 mg, Oral, Nightly bisacodyl, 10 mg, Rectal, Once ceFAZolin, 2,000 mg, IntraVENous, q8h heparin flush, 250 Units, IntraCATHeter, q12h insulin lispro, 0-6 Units, SubCUTAneous, TID WC And insulin lispro, 0-6 Units, SubCUTAneous, Nightly levothyroxine, 50 mcg, Oral, qAM AC melatonin, 5 mg, Oral, Nightly polyethylene glycol (PEG) 3350, 17 g, Oral, Daily sennosides, 1 tablet, Oral, BID sodium chloride 0.9%, 10 mL, IntraCATHeter, q12h LABS: CBC: No results for input(s): "WBC", "RBC", "HGB", "HCT", "MCV", "RDW", "PLT" in the last 72 hours. BMP:No results for input(s): "NA", "K", "CL", "CO2", "BUN", "CREATININE", "GLUCOSE", "CALCIUM", "ANIONGAP" in the last 72 hours. LIVER PROFILE:No results for input(s): "AST", "ALT", "BILITOT", "ALKPHOS", "PROT" in the last 72 hours. No lab exists for component: "LABALBU" PT/INR: No results for input(s): "PROTIME", "INR" in the last 72 hours. CARDIAC ENZYMES: No results for input(s): "TROPONINI" in the last 72 hours. Procalcitonin: No results found for: "PROCAL" XR chest 1 view Result Date: 03/01/2024 Impression: Lines, tubes, and devices: Replacement of right PICC with tip in the distal SVC. Lungs and pleura: Minimal streaky left basilar atelectasis. No consolidation. No pleural effusion or pneumothorax. Cardiomediastinal silhouette: Normal cardiomediastinal silhouette. Other: Mild degenerative spurring of the thoracic spine. Report Dictated on Electronically Signed By: Dominik Avendaño MD Electronically Signed Date/Time: 03/01/2024 1:56 PM EDT I reviewed: [x] laboratory results [x] radiographic results At the time of today's encounter. Pt was informed about the results. Objective: Vitals: BP 134/87 (BP Location: Left arm, Patient Position: Lying) Pulse 58 Temp 36.3 C (97.4 F) (Temporal) Resp 12 Ht 5' 8" (1.727 m) Wt 222 lb (101 kg) SpO2 99% BMI 33.75 kg/m Pulse Ox: SpO2 Av.5 % Min: 98 % Max: 99 % Supplemental O2: O2 Flow Rate (L/min): 6 L/min General appearance: No apparent distress, HEENT: Eyes: No scleral icterus No pallor Obese male Oral: Tongue is semi-moist Cardiovascular: S1S2 heard, RRR Respiratory: Clear to auscultation bilaterally anteriorly Abdomen: Soft, non-tender, non-distended, no mass palpable with normal bowel sounds. 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 Diet-controlled diabetes mellitus, A1c 6.3 Debility Constipation Unspecified psychosis Insomnia on treatment Chronic issue-- Obesity Bipolar disorder PTSD Bronchial asthma Diet-controlled diabetes mellitus Hypothyroidism MAXIMO noncompliant with CPAP Hyperlipidemia Chronic smoking history Plan Seen by orthopedics team, infectious disease team, recommended stop date of antibiotic 03/24/2024 with IV Ancef Monitor Accu-Chek, continue current sliding scale insulin as ordered Seen by psychiatric team, recommendation noted Continue MiraLAX 17 g daily. Started on Senokot 1 tablet p.o. twice daily. Will order 1 dose of rectal suppository Dulcolax today. PT recommended fdc facility. SCDs for DVT prophylaxis, continue as ordered Continue rest of medication as ordered Patient was informed about all work up and treatment plan Discussed with nursing staff and TCC regarding management/ discharge plan. Anticipated discharge to fdc facility today if approved. Toxic drug monitoring/narrow therapeutic index drug monitoring : # Drug name : None # Route administered : # Method of monitoring : Extended Emergency Contact Information Primary Emergency Contact: Jaci Leger Mobile Relation: Concessionist Secondary Emergency Contact: Jeny Ruby Relation: Mother Advance Directive: Full Code Discharge planning: Anticipated discharge to fdc facility today if approved NOTE: This report was transcribed using voice recognition software. Every effort was made to ensureaccuracy; however, inadvertent computerized sports equipment repairer errors may be present. Randy Drummond MD Division of Hospitalist Medicine [facility] PAGER: Epic chat * Noah Thakkar RN - 03/01/2024 5:25 PM EDT Code tonya called on patient. Patient shiraz agitated when staff was unable to take barillas down to lobby for him to case picker a pizza order he had delivered. Patient screaming at staff. Patient got out of bed. Yelling at stff saying he would get it himself. RN requested patient to sit back down in bedand offered to find a way to get him pizza. Patient violently slammed door against the wall. RN told patient to sit back down in bed so we don't have to call security. Patient ultimately made his wayback to bed. Code tonya was already called at that point. Patient resting in bed and cooperative now. * Princess Morales - 03/01/2024 3:30 PM EDT Spiritual Care Note [facility] Palliative Care Patient Name:Talia Ruby Chief Complaint: Chief Complaint Patient presents with Hand Injury Pt punched a window a week ago and has an open hand injury on his L hand. Pt is a tx from [place]. Pt received zofran, morphine, zosyn, and vancomycin. Pt has a hx of schizophrenia and has been combative in the past. 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 Introduced myself and pastoral care to patient. The staffon the floor found him a bible. Spoke with patient. He was admitted for an infection in his hand. He is a Faith who uses the word for encouragement Will follow up. Is there spiritual distress? NO Comment: Interventions: Establish rapport, spiritual support provided, emotional support provided, empathetic listening, validated feelings, and promotion of health. Care Plan: connect to higher power. Follow Up: PRN and when patient is able. Debriefed: with fairground operator team. Princess Morales 03/01/24 * FINA Hernandez CNP - 03/01/2024 12:02 PM EDT Images from the original note were not included. 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 ID covering- chart, labs, and vitals reviewed. Pt endorses L hand pain. Incision without purulence.Doing hand soaks. Tolerating abx. Afebrile. PICC placed. SNF placement. Objective: Vitals: Patient Vitals for the past 24 hrs: BP Temp Temp src Pulse Resp SpO2 03/01/24 0559 129/70 36.6 C (97.8 F) Temporal 62 14 100 % 02/29/24 1653 137/94 36.7 C (98.1 F) Temporal 66 16 98 % Physical Exam Vitals and nursing note reviewed. Constitutional: General: He is not in acute distress. Appearance: Normal appearance. He is not toxic-appearing. HENT: Head: Normocephalic and atraumatic. Nose: Nose normal. Mouth/Throat: Mouth: Mucous membranes are moist. Eyes: Conjunctiva/sclera: Conjunctivae normal. Cardiovascular: Rate and Rhythm: Normal rate and regular rhythm. Pulmonary: Effort: Pulmonary effort is normal. No respiratory distress. Breath sounds: Normal breath sounds. No wheezing, rhonchi or rales. Comments: Breathing comfortable on RA Abdominal: General: Bowel sounds are normal. There is no distension. Palpations: Abdomen is soft. Tenderness: There is no abdominal tenderness. There is no guarding. Musculoskeletal: General: Deformity present. No tenderness. Normal range of motion. Cervical back: Neck supple. Right lower leg: No edema. Left lower leg: No edema. Comments: + incision along dorsum aspect of L hand and long finger with sutures in place; small opening mid incision without expressible purulence. Edema and erythema improving. + RLE deformity Skin: General: Skin is warm and dry. Findings: No rash. Neurological: General: No focal deficit present. Mental Status: He is alert and oriented to person, place, and time. Cranial Nerves: No cranial nerve deficit. Psychiatric: Mood and Affect: Mood normal. Behavior: Behavior normal. Labs: Recent Labs 02/28/24 0125 NA 136 K 3.8 CL 103 CO2 26 BUN 23* CREATININE 0.83 GLUCOSE 149* CALCIUM 9.6 PROT 6.5 BILITOT 0.3 ALKPHOS 100 AST 18 ALT 15 Recent Labs 02/28/24 0125 WBC 9.1 HGB 13.6 HCT 41.1 PLT 291 Micro: 02/24- blood cx- 2/2 negative 02/24- L finger eswab- MSSA ESR 33 CRP 50.7 Lines: PIV Radiography/Echo/Other: 03/01- CXR Lines, tubes, and devices: Replacement of right PICC with tip in the distal SVC. Lungs and pleura: Minimal streaky left basilar atelectasis. No consolidation. No pleural effusion or pneumothorax. Cardiomediastinal silhouette: Normal cardiomediastinal silhouette. Other: Mild degenerative spurring of the thoracic spine. 02/24- XR L hand The bone mineralization is normal. There is no acute fracture. There is no radiopaque foreign body.The joint spaces appear maintained. There is a thin ossification at the third digit DIP. There is soft tissue swelling of the third digit. Impression: Soft tissue swelling. No acute osseous process 02/24- CXR No radiographic acute cardiopulmonary process. 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 in [place] ID service will continue to follow; NADIYA Burnette to resume care tomorrow. Yamel Falk CNP [facility] - Infectious Diseases 4:26 PM 03/01/2024 Based on diagnoses and management, combination of acute and chronic problems, exacerbations and/or acuity, this visit should be considered to be of moderate complexity. * Gogo Linares - 03/01/2024 10:51 AM EDT Images from the original note were not included. OCCUPATIONAL THERAPY [facility] Treatment Note Name/MRN: Talia Ruby ([id number]) Date of : 1980 Age: 43 y.o. Room/Bed: H-5120/H-5120 A Discharge Recommendation: Care Home Facility Equipment Needed: (continue to assess) Prior Level of Function ADL Assistance: Independent Ambulation Assistance: Independent Transfer Assistance: Independent Assessment Patient is slowly progressing towards their goals. Patient performed bed mobility and transfers with SBA. Patient required maxA for LB dressing. Patient performed oral care at sink with SBA. Patient independent at baseline. Limiting factors include pain, weight-bearing restrictions, decreased functional mobility, decreased endurance, cognition and decreased balance. Patient required verbal cues for adhering to NWB precautions throughout session. Recommending SNF at discharge; patient unsafe to discharge home due to requiring assistance, decreased safety awareness and cognition. Subjective Patient supine in bed with HOB slightly elevated upon entry. Patient agreeable to OT. Patient verbalized his NWB precautions prior to movement. Patient oriented but makes questionable comments throughout session, leading to unclear understanding of cognition. Pain: 0-10 pain scale: 7/10 Location: LUE Medical Precautions: No active isolations Proper PPE donned/doffed in accordance with facility standards. Fall Risk: San Fall Risk Score: 35 (Medium Risk) Precautions/Restrictions: Braces or Orthoses: Wrist cock-up splint for functional activities to RUE Right LE Weight Bearing: Non-Weight Bearing Left UE Weight Bearing: Non-Weight Bearing Family/Caregiver Present: none Objective ADLs Grooming: SBA LE Dressing: Max Assist Patient performed oral care at sink with SBA and set-up. Patient leaned on sink for support during oral tasks. Patient required maxA for doffing/donning socks. Splint Donned wrist-cock up splint to patient's RUE. Patient educated on splint precautions (skin integrity and pain) and use. Patient instructed to wear splint during functional tasks. Bed Mobility Supine to sit: SBA Sit to supine: SBA Scooting: SBA Patient required SBA for bed mobility. HOB elevated prior to movement. Patient scooted to EOB with cues for safety. Patient required verbal cues for adhering to NWB precaution for the LUE. Patient presented with fair sitting balance and posture. Transfers/Mobility Sit to stand: SBA Stand to sit: SBA Standing balance: SBA Functional mobility: SBA Patient performed sit to stand with SBA. Patient instructed to push through his LLE and reminded ofNWB for his RLE and LUE. Patient reported discomfort and tingling with his RUE. Patient declined using platform walker and reported he has been getting up with the crutch. Patient required SBA for standing balance while performing oral care at the sink. Patient presented with fair standing posture.Patient required safety cues for adhering to NWB precautions throughout transfers and mobility. Patient performed functional mobility with SBA. Device(s) used: singular crutch Plan Continue acute OT per plan of care. Safety/Education Safety Safety Devices in place: call light within reach, left in bed, and gait belt Restraints: No Education Education Given To: patient Education Provided: OT Role, Plan of Care, and Discharge Recommendations Education Method: Verbal Barriers to Learning: Cognition Education Outcome: Continued Education Needed AM-PAC Goals Patient Stated Goal: improved function Encounter Problems Encounter Problems (Active) Dressings Lower Extremities Patient will dress lower body with mod I (Not Progressing) Start: 02/27/24 Expected End: 03/26/24 Grooming Patient will complete daily grooming tasks with mod I while standing at sink (Slowly Progressing) Start: 02/27/24 Expected End: 03/26/24 Mobility Patient will demonstrate functional ambulation with mod I (Slowly Progressing) Start: 02/27/24 Expected End: 03/26/24 Splinting Patient will tolerate wearing right UE wrist cock-up splint without signs/symptoms of redness, irritation, and skin breakdown. Start: 03/01/24 Expected End: 03/29/24 Patient will don/doff right UE wrist cock-up splint with independence. Start: 03/01/24 Expected End: 03/29/24 Toileting Patient will complete toileting tasks at standard toilet with modified independence. (Not Addressed) Start: 02/27/24 Expected End: 03/26/24 Transfers Patient will complete functional transfer with platform left with modified independence in order toprepare for ambulation. (Not Addressed) Start: 02/27/24 Expected End: 03/26/24 Patient will perform bed mobility with modified independence in order to improve independence and prepare for out of bed mobility. (Progressing) Start: 02/27/24 Expected End: 03/26/24 Therapy Time Individual Co-treatment Time In 956 Time Out 1017 Minutes 20 Timed Code Treatment Minutes: 8 Minutes (self care-1) Gogo Linares S/OT * Anselmo Thomas, PT - 03/01/2024 9:08 AM EDT Images from the original note were not included. PHYSICAL THERAPY [facility] Treatment Note Name/MRN: Talia Ruby ([id number]) Date of : 1980 Age: 43 y.o. Room/Bed: 5120/5120 A Discharge Recommendation: Care Home Facility Other: TBD- will likely eventually benefit from a platform walker Prior Level of Function ADL Assistance: Independent Ambulation Assistance: Independent Device(s) used: crutches Transfer Assistance: Independent Notes indicate history of falls at home. Assessment The pt is making progress towards his goals and will continue to benefit from therapy for their functional deficits and to improve his overall functional capacity. He required min assist to CGA for transfers and ambulation and will benefit from continued therapy and assistance upon discharge. SNF is recommended at discharge. Pt did present with unsteadiness while ambulating secondary to fatigue. Cues for posture and walker position were needed. Subjective Pt in bed and agreed to PT. Pt would like to go for a walk. Pain: 6-7/10, RLE, Lt hand Medical Precautions: No active isolations Proper PPE donned/doffed in accordance with facility standards. Fall Risk: San Fall Risk Score: 35 (Medium Risk) Precautions/Restrictions: Right LE Weight Bearing: Non-Weight Bearing Left UE Weight Bearing: Non-Weight Bearing Overall Cognitive Status: WFL Overall Orientation Status: Oriented x4 Family/Caregiver Present: none Objective Ambulation Ambulation 1 Assistive device(s) used: platform walker Assist level: Min Assist Distance (ft): 90 ft seated break, 35 ft seated break Quality of gait: hop to pattern, flexed posture, head down, walker too far anterior to NENA, unsteadiness intermittently. Transfers/Mobility Sit to stand: Contact Guard Stand to sit: Contact Guard 2 trials from EOB to platform walker Device(s) used: platform walker Bed Mobility Supine to sit: SBA Rolling to left: SBA Scooting: SBA HOB elevated, use of rail, cues for NWB LUE Balance: Pt able to stand with walker and supervision without a LOB. Posture: fair Sitting - Static: Independent Sitting - Dynamic: Supervision Standing - Static: SBA Standing - Dynamic: Min Assist Plan Continue acute PT per plan of care. Safety/Education Safety Safety Devices in place: call light within reach, left in chair, gait belt, nurse notified, and no alarms engaged upon entry Restraints: No Education Education Given To: patient Education Provided: PT Goals, Gait Training, Plan of Care, Precautions, Transfer Training, Discharge Recommendations, and call don't fall Education Method: Verbal Barriers to Learning: None Education Outcome: Verbalized Understanding Outcome Measures AM-PAC AM-PAC Inpatient Mobility Raw Score (No Stairs) : 16 JH-HLM -M Score: Walked 25 ft or more (i.e. walked outside of room) Goals Patient Stated Goal: To go somewhere for therapy and be able to heal Encounter Problems Encounter Problems (Active) Mobility Patient will ambulate 100 feet with modified independence and rolling walker and platform left in order to improve safety and independence with mobility. (Progressing) Start: 02/26/24 Expected End: 03/11/24 Patient will ascend and descend 5 stairs with least restrictive device and modified independence inorder to safely negotiate home. (Not Addressed) Start: 02/26/24 Expected End: 03/11/24 Pain - Adult Safety Patient will recall/demonstrate weight bearing and/or ROM restrictions with all functional mobilityin order to promote healing and safety with functional tasks. (Progressing) Start: 02/26/24 Expected End: 03/11/24 NWB L UE and R LE Transfers Patient will perform bed mobility with independence in order to improve independence and prepare for out of bed mobility. (Progressing) Start: 02/26/24 Expected End: 03/11/24 Patient will complete functional transfer with no assistive device with independence in order to prepare for ambulation. (Progressing) Start: 02/26/24 Expected End: 03/11/24 Therapy Time Individual Co-treatment Time In 0808 (one gait) Time Out 0825 Minutes 17 Timed Code Treatment Minutes: 17 Minutes Anselmo Thomas PT * Isaac Marcos, DO - 02/29/2024 12:57 PM EDT Hospitalist Progress Note 02/29/2024 Subjective: Admit Date: 02/25/2024 PCP: No primary care provider on file. Room#: H-5120/H-5120 A BRIEF HOSPITAL COURSE: Talia is a 43 y.o. male with past medical history below who presents with chief complaint listed above. Pt is a poor overall historian and has changed his story on multiple occasions so history obtained via ED documentation and EMR. Per ED, pt was seen at [facility] ED after putting his hand threw a windshield (fall vs punch?) about a week ago and had progressively worsening hand pain, swelling and purulent drainage and unable to make a fist. Upon arrival here, XR hand with soft tissue swelling, but no acute osseous process. Orthopedics evaluated patient and decided to take to the OR 02/24. Cultures obtained. ID consulted and pt maintained on abx. PT/OT evaluations as pt likely to need placementdue to abx and wound care. Psych consulted due to hallucinations/agitation/strange behavior Interval History: 02/28: Pt seen and examined. No complaints. Awaiting SNF auth and final ID plan. Denies respiratory complaints but is wheezing today. Duonebs ordered. Also states he is constipated and asking for stoolsoftener- miralax changed to scheduled Adult diet Regular; 4 carb choices (60 gm/meal) 24HR INTAKE/OUTPUT: Intake/Output Summary (Last 24 hours) at 02/29/2024 1257 Last data filed at 02/29/2024 0534 Gross per 24 hour Intake 860 ml Output 725 ml Net 135 ml Past Medical History: Past Medical History: Diagnosis Date Asthma Bipolar disorder (HCC) Diabetes mellitus (HCC) ETOH abuse HTN (hypertension) Hyperlipidemia MAXIMO on CPAP PTSD (post-traumatic stress disorder) 2/2 witness suicide as a child T2DM (type 2 diabetes mellitus) (HCC) Tobacco abuse LABS: CBC: Recent Labs 02/27/24 0135 02/28/24 0125 WBC 9.1 9.1 RBC 4.71 5.03 HGB 13.0 13.6 HCT 38.2* 41.1 MCV 81.1 81.7 RDW 13.7 13.7 PLT 266 291 BMP: Recent Labs 02/27/24 0135 02/28/24 0125 NA 136 136 K 3.5 3.8 CL 104 103 CO2 25 26 BUN 21* 23* CREATININE 0.94 0.83 GLUCOSE 107* 149* CALCIUM 9.2 9.6 ANIONGAP 7 7 LIVER PROFILE: Recent Labs 02/27/24 0135 02/28/24 0125 AST 25 18 ALT 15 15 BILITOT 0.5 0.3 ALKPHOS 115 100 PROT 6.5 6.5 PT/INR: No results for input(s): "PROTIME", "INR" in the last 72 hours. CARDIAC ENZYMES: No results for input(s): "TROPONINI" in the last 72 hours. Procalcitonin: No results found for: "PROCAL" COVID-19 PCR: No results for input(s): "COVID19" in the last 72 hours. Objective: Vitals: BP 146/85 (BP Location: Left arm, Patient Position: Lying) Pulse 60 Temp 36.2 C (97.2 F) (Temporal) Resp 20 Ht 5' 8" (1.727 m) Wt 222 lb (101 kg) SpO2 100% BMI 33.75 kg/m Pulse Ox: SpO2 Av % Min: 100 % Max: 100 % Supplemental O2: O2 Flow Rate (L/min): 6 L/min GENERAL: Lying in bed comfortably HEENT: normocephalic, non-traumatic, MMM NECK: supple, trachea midline HEART: RRR, normal S1 and S2 LUNGS: non labored ABD: soft, non-distended MSK: L hand wrapped with KELLE dressing, RLE fracture deformity SKIN: warm, dry Medications: Scheduled PRN atorvastatin, 20 mg, Oral, Nightly ceFAZolin, 2,000 mg, IntraVENous, q8h insulin lispro, 0-6 Units, SubCUTAneous, TID WC And insulin lispro, 0-6 Units, SubCUTAneous, Nightly levothyroxine, 50 mcg, Oral, qAM AC melatonin, 5 mg, Oral, Nightly PRN medications: acetaminophen OR acetaminophen, dextrose, dextrose, glucagon (rDNA), glucose, ipratropium-albuterol, naloxone, nicotine polacrilex, OLANZapine (ZyPREXA) 5 mg in sterile water 1 mL injection OR OLANZapine, ondansetron ODT OR ondansetron, oxyCODONE, polyethylene glycol (PEG) 3350, traZODone Continuous Assessment Data: Acute, acute on chronic, unstable/uncontrolled chronic problems/diagnoses: L hand tenosynovitis - ortho consulted and sp debridement 02/24. Pain/nausea control. Cultures obtained. Empiric abx. ID consulted. Wound care Hx of schizoaffective/bipolar with hallucinations - psych consulted as pt hallucinating and with flight of thought and declining treatment Unsteady gait- pt reports difficulty ambulating likely due to RLE fracture. Has ortho follow up in February for RLE amputation. NWB until then Stable chronic problems affecting care, new non-acute diagnoses: Bipolar/PTSD/schizoaffective DM with hyperglycemia Hypothyroid HLD Plan As a result of the above findings & factors, the following mgmt was pursued: - cont meds as ordered - wound care, ortho recs - follow cultures and ID recs for home going abx - am labs, replace lytes prn - PT/OT/CM/SW - delirium precautions: increase activity and limit nighttime disturbances - DVT prophylaxis: encourage ambulation Advance Directive: Full Code Anticipated Discharge - Date - 03/01 - Location - Skilled Facility - Pending the following - placement/auth, abx recs, wound care 30 minutes spent in chart review, lab and radiology interpretation, patient eval, counseling and treatment plan. Extended Emergency Contact Information Primary Emergency Contact: ArsenJaci Mobile Relation: Concessionist Secondary Emergency Contact: Jeny Ruby Relation: Mother Isaac Marcos DO Division of Hospitalist Medicine [facility] * Lexy Juares PA-C - 02/29/2024 9:24 AM EDT Images from the original note were not included. [facility] - Infectious Diseases Advanced Practice Provider Progress Note Subjective: Following for MCPJ infection with extensor rupture s/p arthrotomy/synovectomy and I&D on 02/24. Cx + MSSA. Pt reports L hand pain has improved. Denies fever, chills, SOB, abd pain, n/v over weekend. Has nothad a BM since surgery, but reports passing gas. Does have hx of asthma, states he is unsure what he normally takes for this. Vitals: Patient Vitals for the past 24 hrs: BP Temp Temp src Pulse Resp SpO2 02/29/24 0534 146/85 36.2 C (97.2 F) Temporal 60 20 100 % Physical Exam: Physical Exam Vitals and nursing note reviewed. Constitutional: General: He is not in acute distress. Appearance: He is normal weight. He is ill-appearing. He is not toxic-appearing or diaphoretic. Comments: Pt resting in bed, NAD. Responds appropriately, conversant. HENT: Head: Normocephalic and atraumatic. Right Ear: External ear normal. Left Ear: External ear normal. Nose: Nose normal. Mouth/Throat: Mouth: Mucous membranes are moist. Pharynx: Oropharynx is clear. No oropharyngeal exudate. Eyes: General: Right eye: No discharge. Left eye: No discharge. Extraocular Movements: Extraocular movements intact. Conjunctiva/sclera: Conjunctivae normal. Pupils: Pupils are equal, round, and reactive to light. Cardiovascular: Rate and Rhythm: Normal rate and regular rhythm. Pulses: Normal pulses. Heart sounds: Normal heart sounds. No murmur heard. Pulmonary: Effort: Pulmonary effort is normal. No respiratory distress. Breath sounds: Wheezing present. No rhonchi. Comments: Unlabored effort on room air. Diffuse wheezing in all 4 lobes. O2 sat at 98%. Abdominal: General: Abdomen is flat. Bowel sounds are normal. There is no distension. Palpations: Abdomen is soft. Tenderness: There is no abdominal tenderness. There is no guarding. Musculoskeletal: General: Deformity present. Cervical back: Normal range of motion. No rigidity. Comments: RLE deformity with edema/dependent rubor. Dorsalis pedis pulses intact b/l. Skin: General: Skin is warm and dry. Coloration: Skin is not jaundiced. Findings: Lesion present. No erythema or rash. Comments: L hand wrapped in post op dressing. Media photos of L hand reviewed from 02/27 -> incision intact. Central aspect of incision is open. Edema resolves, no drainage seen. Neurological: Mental Status: He is alert. Mental status is at baseline. Sensory: No sensory deficit. Motor: No weakness. Psychiatric: Mood and Affect: Mood normal. Behavior: Behavior normal. Thought Content: Thought content normal. Labs: Recent Labs 02/27/24 0135 02/28/24 0125 NA 136 136 K 3.5 3.8 CL 104 103 CO2 25 26 BUN 21* 23* CREATININE 0.94 0.83 GLUCOSE 107* 149* CALCIUM 9.2 9.6 PROT 6.5 6.5 BILITOT 0.5 0.3 ALKPHOS 115 100 AST 25 18 ALT 15 15 Recent Labs 02/27/245 02/28/24 0125 WBC 9.1 9.1 HGB 13.0 13.6 HCT 38.2* 41.1 PLT 266 291 Micro: No results for input(s): "COVID19" in the last 72 hours. 02/24 2/2 blood cx NGTD 02/24 L finger fungal cx MSSA 01/25 L finger cx in progress, GPC on stain Lines: PIV Radiography/Echo/Other: 02/24 XR hand L The bone mineralization is normal. There is no acute fracture. There is no radiopaque foreign body.The joint spaces appear maintained. There is a thin ossification at the third digit DIP. There is soft tissue swelling of the third digit. 02/24 CXR No radiographic acute cardiopulmonary process. 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 Asthma Plan: Cx + MSSA. Maintain cefazolin 2g IV q8h. Blood cx NGTD x72 hrs Follow up intra op cx. Plan for 4 week abx course. Pt not candidate for PICC in community. Noted of plans for SNF. IF pt to be at SNF, plan for 4 week IV course through 03/24/24. OK for PICC when plans for placement at SNF are finalized. Prelim OPAT to be written today and scanned into media tab for dispo planning. Tdap booster given 02/24 Psych following Primary notified of diffuse wheezing on exam this AM. Pt without resp complaints, in no resp distress. O2 sat at 98% on room air. May benefit from breathing tx. ID to follow Based on diagnoses and management, combination of acute and chronic problems, exacerbations and/or acuity, this visit should be considered to be of high complexity. KANDIS Holt PA-C * Isaac Marcos, DO - 02/28/2024 12:55 PM EDT Hospitalist Progress Note 02/28/2024 Subjective: Admit Date: 02/25/2024 PCP: No primary care provider on file. Room#: H-5120/H-5120 A BRIEF HOSPITAL COURSE: Talia is a 43 y.o. male with past medical history below who presents with chief complaint listed above. Pt is a poor overall historian and has changed his story on multiple occasions so history obtained via ED documentation and EMR. Per ED, pt was seen at [facility] ED after putting his hand threw a windshield (fall vs punch?) about a week ago and had progressively worsening hand pain, swelling and purulent drainage and unable to make a fist. Upon arrival here, XR hand with soft tissue swelling, but no acute osseous process. Orthopedics evaluated patient and decided to take to the OR 02/24. Cultures obtained. ID consulted and pt maintained on abx. PT/OT evaluations as pt likely to need placementdue to abx and wound care. Psych consulted due to hallucinations/agitation/strange behavior Interval History: 6/1: Pt seen and examined. No complaints. Awaiting SNF auth and final ID plan Adult diet Regular; 4 carb choices (60 gm/meal) 24HR INTAKE/OUTPUT: Intake/Output Summary (Last 24 hours) at 02/28/2024 1255 Last data filed at 02/27/2024 1645 Gross per 24 hour Intake -- Output 800 ml Net -800 ml Past Medical History: Past Medical History: Diagnosis Date Asthma Bipolar disorder (HCC) Diabetes mellitus (HCC) ETOH abuse HTN (hypertension) Hyperlipidemia MAXIMO on CPAP PTSD (post-traumatic stress disorder) 2/2 witness suicide as a child T2DM (type 2 diabetes mellitus) (HCC) Tobacco abuse LABS: CBC: Recent Labs 02/26/24 0002 02/27/2413402/28/24 012 WBC 10.4 9.1 9.1 RBC 5.03 4.71 5.03 HGB 13.5 13.0 13.6 HCT 40.9 38.2* 41.1 MCV 81.3 81.1 81.7 RDW 13.5 13.7 13.7 PLT 265 266 291 BMP: Recent Labs 02/26/24 0002 02/27/2413402/28/24 012 NA 133* 136 136 K 4.2 3.5 3.8 CL 102 104 103 CO2 27 25 26 BUN 21* 21* 23* CREATININE 0.95 0.94 0.83 GLUCOSE 155* 107* 149* CALCIUM 9.4 9.2 9.6 ANIONGAP 4 7 7 LIVER PROFILE: Recent Labs 02/26/24 0002 02/27/2413402/28/24 012 AST 23 25 18 ALT 19 15 15 BILITOT 0.8 0.5 0.3 ALKPHOS 93 115 100 PROT 6.8 6.5 6.5 PT/INR: No results for input(s): "PROTIME", "INR" in the last 72 hours. CARDIAC ENZYMES: No results for input(s): "TROPONINI" in the last 72 hours. Procalcitonin: No results found for: "PROCAL" COVID-19 PCR: No results for input(s): "COVID19" in the last 72 hours. Objective: Vitals: BP 126/72 (BP Location: Right arm, Patient Position: Lying) Pulse 62 Temp 36.4 C (97.6 F) (Temporal) Resp 16 Ht 5' 8" (1.727 m) Wt 222 lb (101 kg) SpO2 98% BMI 33.75 kg/m Pulse Ox: SpO2 Av.5 % Min: 97 % Max: 98 % Supplemental O2: O2 Flow Rate (L/min): 6 L/min GENERAL: Lying in bed comfortably HEENT: normocephalic, non-traumatic, MMM NECK: supple, trachea midline HEART: RRR, normal S1 and S2 LUNGS: non labored ABD: soft, non-distended MSK: L hand wrapped with KELLE dressing, RLE fracture deformity SKIN: warm, dry Medications: Scheduled PRN atorvastatin, 20 mg, Oral, Nightly ceFAZolin, 2,000 mg, IntraVENous, q8h insulin lispro, 0-6 Units, SubCUTAneous, TID WC And insulin lispro, 0-6 Units, SubCUTAneous, Nightly levothyroxine, 50 mcg, Oral, qAM AC melatonin, 5 mg, Oral, Nightly PRN medications: acetaminophen OR acetaminophen, dextrose, dextrose, glucagon (rDNA), glucose, naloxone, nicotine polacrilex, OLANZapine (ZyPREXA) 5 mg in sterile water 1 mL injection OR OLANZapine, ondansetron ODT OR ondansetron, oxyCODONE, polyethylene glycol (PEG) 3350, traZODone Continuous Assessment Data: Acute, acute on chronic, unstable/uncontrolled chronic problems/diagnoses: L hand tenosynovitis - ortho consulted and sp debridement 02/24. Pain/nausea control. Cultures obtained. Empiric abx. ID consulted. Wound care Hx of schizoaffective/bipolar with hallucinations - psych consulted as pt hallucinating and with flight of thought Unsteady gait- pt reports difficulty ambulating likely due to RLE fracture. Has ortho follow up in February for RLE amputation. NWB until then Stable chronic problems affecting care, new non-acute diagnoses: Bipolar/PTSD/schizoaffective DM with hyperglycemia Hypothyroid HLD Plan As a result of the above findings & factors, the following mgmt was pursued: - cont meds as ordered - wound care, ortho recs - follow cultures and ID recs for home going abx - am labs, replace lytes prn - PT/OT/CM/SW - delirium precautions: increase activity and limit nighttime disturbances - DVT prophylaxis: encourage ambulation Advance Directive: Full Code Anticipated Discharge - Date - 03/01 - Location - Skilled Facility - Pending the following - placement/auth, abx recs, wound care 30 minutes spent in chart review, lab and radiology interpretation, patient eval, counseling and treatment plan. Extended Emergency Contact Information Primary Emergency Contact: Jaci Leger Mobile Relation: Concessionist Secondary Emergency Contact: Jeny Ruby Relation: Mother Isaac Gutierrez DO [facility] Division of Hospitalist Medicine [facility] * Lilibeth Eaton MD - 02/28/2024 9:35 AM EDT Images from the original note were not included. Department of Orthopedic Surgery Progress Note SUBJECTIVE: Doing well. Has continued to do soaks. Is frustrated with being awakened all night for blood draws. Planning on dc to facility for IV abx. OBJECTIVE: General: in no acute distress, awake, and pain controlled VITALS: BP 126/72 (BP Location: Right arm, Patient Position: Lying) Pulse 62 Temp 36.4 C (97.6 F) (Temporal) Resp 16 Ht 1.727 m (5' 8") Wt 101 kg (222 lb) SpO2 98% BMI 33.75 kg/m MSK exam: Surgical packing pulled. Nylon sutures intact. Central portion of the wound remains open as intended. There is no visible expressible purulence. Wound bed is clean and well-vascularized. Sensation intact to light touch at distal finger. +AIN/PIN/Ulnar motor. SILT R/U/M. Brisk capillary refill to all digits.. Labs: Lab Results Component Value Date WBC 9.1 02/28/2024 HGB 13.6 02/28/2024 HCT 41.1 02/28/2024 MCV 81.7 02/28/2024 PLT 291 02/28/2024 , Lab Results Component Value Date GLUCOSE 149 (H) 02/28/2024 CALCIUM 9.6 02/28/2024 NA 136 02/28/2024 K 3.8 02/28/2024 CO2 26 02/28/2024 CL 103 02/28/2024 BUN 23 (H) 02/28/2024 CREATININE 0.83 02/28/2024 , Lab Results Component Value Date CRP 50.7 (H) 02/25/2024 , and Lab Results Component Value Date SEDRATE 33 (H) 02/25/2024 ASSESSMENT AND PLAN: This is a 43 y.o. male w/ L LF MCPJ SA with extensor tendon rupture s/p I&D and tendon repair on 02/24 No plan for return to surgery for left hand NWB L hand, ok to bear weight through the forearm/elbow No plan for RLE while here. Patient has BKA set up with outside hospital Keep splint c/d/I, replace after soaks Hand soaks with hibiclens+water. Perform TID and repack after today's AM and afternoon soak. No more packing after the evening soak today. Resplint after each soak. -Patient will need to continue TID soaks after dc until wound is completely healed/patient's follow-up Abx per med/ID Ice/elevate OR cultures pending, Gram stain + staph aureus Recommend psychiatry c/s while in house to optimize medications Medical management/pain control per primary Ortho to follow peripherally. Please page vocational auto body instructor resident with any questions or concerns Ok for dc from ortho standpoint, f/u as OP with Dr. Fischer within 7 days Lilibeth Eaton MD Orthopaedic Surgery, PGY-5 [phone] * Kirit Chaudhary OT - 02/27/2024 3:52 PM EDT Images from the original note were not included. OCCUPATIONAL THERAPY [facility] Name/MRN: Talia Ruby ([id number]) Date: 02/27/2024 Provided pt with R short arm wrist cock-up splint, size XL. Pt to wear during functional activitiesto promote independence in ADLs. Kirit Chaudhary OT * Americo Thao, PT - 02/27/2024 3:21 PM EDT Images from the original note were not included. PHYSICAL THERAPY [facility] Treatment Note Name/MRN: Talia Ruby ([id number]) Date of : 1980 Age: 43 y.o. Room/Bed: -5120/H-5120 A Discharge Recommendation: Care Home Facility Other: TBD- will likely eventually benefit from a platform walker Prior Level of Function ADL Assistance: Independent Ambulation Assistance: Independent Device(s) used: crutches Transfer Assistance: Independent Notes indicate history of falls at home. Assessment Pt able to progress ambulation on L platform FWW 40' with min A. Pt required min A for transfers, still utilizing 1 crutch for stand pivot transfers in room. Continue to recommend SNF at disch for increased functional independence. Subjective Pt seated at EOB eating lunch, agreeable to attempt walking with platform walker Pain: RN managing pain. Medical Precautions: No active isolations Proper PPE donned/doffed in accordance with facility standards. Fall Risk: San Fall Risk Score: 60 (High Risk) Precautions/Restrictions: Right LE Weight Bearing: Non-Weight Bearing Left UE Weight Bearing: Non-Weight Bearing Overall Cognitive Status: slight impulsivity Overall Orientation Status: Family/Caregiver Present: none Objective Ambulation Ambulation 1 Assistive device(s) used: LUE platform FWW Assist level: Min Assist Distance (ft): 40 Quality of gait: unsteadiness, cues for decreased hop length/rest breaks for safety Transfers/Mobility Sit to stand: Min Assist Stand to sit: Min Assist Completed from EOB Device(s) used: platform FWW Plan Continue acute PT per plan of care. Safety/Education Safety Safety Devices in place: call light within reach and left in chair Restraints: No Education Education Given To: patient Education Provided: Gait Training Education Method: Verbal Barriers to Learning: Education Outcome: Outcome Measures AM-PAC AM-PAC Inpatient Mobility Raw Score (No Stairs) : 17 JH-HLM JH-HLM Score: Walked 25 ft or more (i.e. walked outside of room) Goals Patient Stated Goal: To go somewhere for therapy and be able to heal Encounter Problems Encounter Problems (Active) Mobility Patient will ambulate 100 feet with modified independence and rolling walker and platform left in order to improve safety and independence with mobility. (Progressing) Start: 02/26/24 Expected End: 03/11/24 Patient will ascend and descend 5 stairs with least restrictive device and modified independence inorder to safely negotiate home. (Not Addressed) Start: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 kelle wrap/splint Musculoskeletal: gait Not examined Mental Status Examination: Appearance: moderately kept, appears stated age Attitude toward examiner: Cooperative, conversant, engaged, and with intermittent eye contact. Behavior/motor: Oral buccal movements. Speech: Coherent and Regular rate, rhythm, volume and articulation Mood: "Good. Not depressed" Affect: Mildly dysphoric, anxious, restricted, appropriate to content Thought process: Linear, goal directed, [place], future-oriented, generally logical Thought content: Within normal limits Thought perception: Denies auditory/visual hallucinations, but notably pt was speaking before this provider entered the room and there was not another person there. Suicidal ideation:Denies Homicidal ideation: Denies Cognition: Grossly intact Memory: Grossly intact Insight: fair Judgment: fair DATA REVIEWED: Encounter Date: 02/25/24 ECG 12 lead Result Value Heart Rate 68 QRSD Interval 78 QT Interval 408 QTC Interval 435 P [place] 77 QRS [place] 43 T Wave [place] 41 SD Interval 188 Impression Sinus rhythm Anteroseptal infarct, age indeterminate Electronically Signed On 02-25-2024 12:51:02 EDT by Anselmo Wall Labs: Recent Results (from the past 24 hour(s)) POCT glucose meter Collection Time: 02/25/24 5:59 PM Result Value Ref Range Glucose 140 (H) 70 - 100 mg/dL Blood culture Site #2 - Suspected Infection Collection Time: 02/25/24 6:09 PM Specimen: Blood, Venous Result Value Ref Range Blood Culture Blood culture incubation started POCT glucose meter Collection Time: 02/25/24 8:33 PM Result Value Ref Range Glucose 176 (H) 70 - 100 mg/dL Comprehensive metabolic panel Collection Time: 02/26/24 12:02 AM Result Value Ref Range SODIUM 133 (L) 135 - 145 mmol/L POTASSIUM 4.2 3.5 - 5.1 mmol/L CHLORIDE 102 98 - 107 mmol/L CARBON DIOXIDE 27 22 - 30 mmol/L ANION GAP 4 3 - 13 mmol/L UREA NITROGEN 21 (H) 9 - 20 mg/dL CREATININE 0.95 0.66 - 1.25 mg/dL GLUCOSE 155 (H) 70 - 100 mg/dL CALCIUM 9.4 8.4 - 10.4 mg/dL AST (SGOT) 23 15 - 46 U/L ALT 19 0 - 49 U/L ALKALINE PHOSPHATASE 93 38 - 126 U/L ALBUMIN 3.5 3.5 - 5.0 g/dL BILIRUBIN, TOTAL 0.8 0.2 - 1.3 mg/dL TOTAL PROTEIN 6.8 6.3 - 8.2 g/dL eGFR >90.0 >60.0 mL/min/1.73m*2 CBC Collection Time: 02/26/24 12:02 AM Result Value Ref Range Auto WBC 10.4 3.6 - 10.7 10*3/uL RBC 5.03 4.40 - 5.90 10*6/uL Hemoglobin 13.5 13.0 - 18.0 g/dL Hematocrit 40.9 40.0 - 52.0 % MCV 81.3 77.0 - 99.0 fL MCH 26.8 26.0 - 34.0 pg MCHC 33.0 30.5 - 36.0 % RDW 13.5 11.5 - 15.0 % Platelets 265 140 - 440 10*3/uL MPV 10.5 9.0 - 12.7 fL Magnesium Collection Time: 02/26/24 12:02 AM Result Value Ref Range MAGNESIUM 1.6 1.6 - 2.3 mg/dL POCT glucose meter Collection Time: 02/26/24 7:20 AM Result Value Ref Range Glucose 134 (H) 70 - 100 mg/dL POCT glucose meter Collection Time: 02/26/24 11:36 AM Result Value Ref Range Glucose 217 (H) 70 - 100 mg/dL Vancomycin, AUC Timed Dosing Collection Time: 02/26/24 12:44 PM Result Value Ref Range VANCOMYCIN, AUC 19.7 15.0 - 20.0 ug/mL ASSESSMENT: Pt w/ Hx of schizophrenia who declines medications due to perceived lack of efficacy and side effects. No acute safety concerns so will leave with PRNs for now. Per note, request for statement of expert evaluation - defer to Dr. Aguiar for this tomorrow. Pt w/ Hx of THC/methamphetamine abuse - would avoid BZD and other substances with abuse potential. Pt agreeable to speak with Dr. Aguiar as well tomorrow about possible supports for him in the community. Diagnostic Impression: Unspecified psychosis Insomnia Hx of methamphetamine abuse Hx of THC Hx of PTSD RECOMMENDATIONS: Pt does NOT require inpatient psychiatric admission at this time, but will re- assess throughout this admission given his declination of medications. Defer to primary team for need for green slip/sitter. Medications: Discontinue Depakote, Gabapentin, and Seroquel per pt request. Start Melatonin 5mg PO at bedtime for sleep. Trazodone PRN insomnia. Zyprexa PO/IM PRN agitation Delirium precautions: Avoid sedating/anticholinergic medications, encourage sleep hygiene, minimizebarriers to nutrition, optimize sensory input and access to assistive devices (dentures, glasses, etc) where indicated, encourage time up in chair as able, D/c Pan, restraints, IV lines, as able and reserve agitation PRNs for instances where patient is danger to self/others/treatment. Recommendations shared with primary team. Follow up: Will sign out to be seen tomorrow by Dr. Aguiar. * Cori Poe, PT - 02/26/2024 3:48 PM EDT Images from the original note were not included. PHYSICAL THERAPY [facility] Initial Evaluation Name/MRN: Talia Ruby ([id number]) Evaluation Date: 02/26/2024 Date of : 1980 Admission Date: 02/25/2024 4:04 AM Age: 43 y.o. Room/Bed: 5120/-5120 A Discharge Recommendation: Care Home Facility Other: TBD- will likely eventually benefit from a platform walker Assessment IMPRESSION: PT orders completed. Pt admitted for L 3rd MCP joint infection after cutting it on glass. PMHx complicated by prior R displaced tibial fracture with deformity noted on assessment, plan isfor a BKA next month (03/15/24 per pt) at [facility]. Pt also has a history of schizophrenia with hallucinations, bipolar disorder, multiple surgeries on the R LE (pt reported >10 surgeries in the past on the R LE), and DM. He is currently limited d/t now being NWB L hand , along with NWB RLE from prior injury. Pt further reports being limited d/t R UE weakness and numbness with most deficits along the C5-8 dermatome/ myotome levels with poor elbow flexion/extension strength, absent wrist extension, and grasp. Pt reported this has started over the past few weeks with insidious onset. He currently requires assist for transfers and ambulating short distances with use of a platform walker. Pt is normally ambulatory with crutches to be able to navigate his home, steps to enter/exit the home, and community, but will not be able to now d/t NWB x 2. Pt is at risk for falls and furtherinjuries. Recommend disch to SNF. Would not recommend pt use the platform walker with nursing and only use it during therapy sessions. Pt should be OK to pivot to chair/ BSC with nursing assist x1 and use of a single crutch (pt's crutches in the room). Diagnosis: left long finger MCPJ septic arthritis with extensor tendon rupture status post I&D and tendon repair on 02/24. Prior history of also with right lower extremity tibial displaced fracture Prognosis: fair Performance Deficits /Impairments: Increased Pain, Decreased Functional Mobility, Decreased ADL status, Decreased ROM, Decreased Strength, Decreased Safety Awareness, Decreased Cognition, Decreased Endurance, Decreased Balance, Decreased High Level IADLs, Decreased Fine Motor Control, Decreased Coor dination, and Decreased Posture Decision Making: High Complexity Subjective Pt in the bed and agreeable to PT. RN OK with PT to see pt. Pt reporting he has many concerns. Primary concern is discharge planning. He is concerned about not being able to use his R hand over the past few weeks d/t progressive numbness and weakness in the elbow, wrist and hand. Reported increasing numbness both arms, but R side is worse. Pt not concerned about the R LE deformity d/t it being chronic and plans to have BKA in [place] next month. Reported minimal to no pain in the R lower leg when NWB, but painful when in weight bearing (educated pt to comply with NWB) Pain: RN managing pain. Rogers-Robles Pain Ratin = Hurts little more Pain Location: L hand Past Medical History: Past Medical History: Diagnosis Date Asthma Bipolar disorder (HCC) Diabetes mellitus (HCC) ETOH abuse HTN (hypertension) Hyperlipidemia MAXIMO on CPAP PTSD (post-traumatic stress disorder) 2/2 witness suicide as a child T2DM (type 2 diabetes mellitus) (HCC) Tobacco abuse Past Surgical History: Past Surgical History: Procedure Laterality Date FRACTURE SURGERY Right leg, s/p bone graft OTHER SURGICAL HISTORY 02/25/2024 IRRIGATION AND DEBRIDEMENT HAND AND LONG FINGER METACARPOPHALANGEAL JOINT - Left Admission Diagnosis: Patient Active Problem List Diagnosis Date Noted Pyogenic arthritis of left hand, due to unspecified organism ([facility]) 02/25/2024 Pyogenic arthritis of left hand ([facility]) 02/25/2024 Bipolar 1 disorder ([facility]) 02/22/2017 Tobacco abuse 02/17/2017 Hyperlipidemia 02/17/2017 HTN (hypertension) 02/17/2017 ETOH abuse 02/17/2017 Acute encephalopathy 02/14/2017 T2DM (type 2 diabetes mellitus) ([facility]) 02/14/2017 Obstructive apnea 02/14/2017 Morbid obesity ([facility]) 02/14/2017 Controlled diabetes mellitus type II without complication ([facility]) 02/14/2017 Acute respiratory failure with hypoxia and hypercapnia ([facility]) 02/14/2017 Medical Precautions: No active isolations Proper PPE donned/doffed in accordance with facility standards. Fall Risk: [place] Fall Risk Score: 30 (Medium Risk) Precautions/Restrictions: Right LE Weight Bearing: Non-Weight Bearing Left UE Weight Bearing: Non-Weight Bearing (L hand) Family/Caregiver Present: none Overall Cognitive Status: WNL Overall Orientation Status: Oriented x4 Vision: not assessed this session Hearing: normal Social/Functional History Patient admitted from home. Lives With: Sister and her dtr who are not available to assist pt. 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 Objective Lower Extremity Assessment AROM: Impaired: R knee flexion/extension AROM WNL. Able to perform 5-10 deg ankle DF/PF limited d/tlower leg deformity. L LE WNL. PROM: Not assessed this session Strength: Exceptions: 3/5 R knee flexion/extension (deferred MMT ). L LE 5/5 grossly. Bed Mobility: Supine to sit: SBA Sit to supine: SBA Compliant NWB L hand and R LE with cues Transfers Sit to stand: Min Assist Stand to sit: Min Assist Assist mostly to get set up into platform walker before and after transfers. Stable during ascent/descent with NWB R LE and L hand Ambulation Ambulation 1 Assistive device(s) used: L platform walker Assist level: Min Assist x 2 Distance (ft): 20 ft+ 15 ft Quality of gait: slow pat, instability through all phases, cues for safety, proper use of the platform walker, navigating FWW, balance. Slightly impulsive. Second assist needed for IV pole Sensation: Impaired: Diminished L UE C5-T1 (mostly along C5), and R UE C4-T1. Upper Extremity: Good shoulder flexion bilaterally. R elbow flexion 3+/5 (but good tone noted) and extension 3+/5 (fair tone noted). 0/5 R wrist extension. 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 Appreciate further OT input and assessment. Outcome Measures AM-PAC How much HELP from another person do you currently need Turning from your back to your side while in a flat bed without using bedrails?: None Moving from lying on your back to sitting on the side of a flat bed without using bedrails?: None Moving to and from a bed to a chair (including a wheelchair)?: A Little Standing up from a chair using your arms (wheelchair or bedside chair)?: A Little Walking in a hospital room?: A Little Stair climbing assessed?: No AM-PAC Inpatient Mobility Raw Score (No Stairs) : 17 JH-HLM -HL Score: Walked 25 ft or more (i.e. walked outside of room) Plan Pt would benefit from skilled acute PT services to address Strengthening, ROM, Balance Training, Functional Mobility Training, Endurance Training, Gait Training, Stair Training, Neuromuscular Re-Education Training, Pain Management, Safety Education and Training, Patient/Caregiver Training, Positioning, and Self-Care/ADL Training. Frequency: 5x/week for 2 weeks Barriers: Limited family support, New weightbearing/ROM restrictions, Cognitive deficit, Impulsivity, Limited safety awareness, Depression, Anxiety, Limited insight into deficits, Decreased endurance, Decreased sensation, Decreased proprioception, Upper extremity weakness, Lower extremity weakness,Long standing deficits, Medical complications, and Stairs at home Safety/Education Safety Safety Devices in place: call light within reach, left in bed, gait belt, patient at risk for falls, and nurse notified Restraints: No Education Education Given To: patient Education Provided: PT Role, PT Goals, Gait Training, Plan of Care, Precautions, Transfer Training,Discharge Recommendations, and Benefits of Increasing Activity Education Method: Verbal and Demonstration Barriers to Learning: None Education Outcome: Verbalized Understanding Goals Patient Stated Goal: To go somewhere for therapy and be able to heal Encounter Problems Encounter Problems (Active) Mobility Patient will ambulate 100 feet with modified independence and rolling walker and platform left in order to improve safety and independence with mobility. Start: 02/26/24 Expected End: 03/11/24 Patient will ascend and descend 5 stairs with least restrictive device and modified independence inorder to safely negotiate home. Start: 02/26/24 Expected End: 03/11/24 Pain - Adult Safety Patient will recall/demonstrate weight bearing and/or ROM restrictions with all functional mobilityin order to promote healing and safety with functional tasks. Start: 02/26/24 Expected End: 03/11/24 NWB L UE and R LE Transfers Patient will perform bed mobility with independence in order to improve independence and prepare for out of bed mobility. Start: 02/26/24 Expected End: 03/11/24 Patient will complete functional transfer with no assistive device with independence in order to prepare for ambulation. Start: 02/26/24 Expected End: 03/11/24 Therapy Time Individual Co-treatment Time In 1440 Time Out 1520 Minutes 40 Cori Poe PT Patient's Physical Therapy Plan of Care supervision is transferred to a [facility] Physical Therapist. Goals and/or treatment plan was established in collaboration with patient/family/other representatives. * Jeny Franco OT - 02/26/2024 2:00 PM EDT Images from the original note were not included. OCCUPATIONAL THERAPY [facility] Name/MRN: Talia Ruby ([id number]) Date: 02/26/2024 OT eval and treat order received. Patient chart reviewed. Patient attempted; waiting on updated LE WB orders. Will continue to follow. Jeny Franco OT * Isaac Marcos, DO - 02/26/2024 1:57 PM EDT Hospitalist Progress Note 02/26/2024 Subjective: Admit Date: 02/25/2024 PCP: No primary care provider on file. Room#: H-5120/H-1910 A BRIEF HOSPITAL COURSE: Talia is a 43 y.o. male with past medical history below who presents with chief complaint listed above. Pt is a poor overall historian and has changed his story on multiple occasions so history obtained via ED documentation and EMR. Per ED, pt was seen at [facility] ED after putting his hand threw a windshield (fall vs punch?) about a week ago and had progressively worsening hand pain, swelling and purulent drainage and unable to make a fist. Upon arrival here, XR hand with soft tissue swelling, but no acute osseous process. Orthopedics evaluated patient and decided to take to the OR 02/24. Cultures obtained. ID consulted and pt maintained on abx. PT/OT evaluations as pt likely to need placementdue to abx and wound care. Psych consulted due to hallucinations/agitation/strange behavior Interval History: 02/25: Pt seen and examined. Nursing doing dressing change and pt states dressing changes are very painful, but otherwise pain is controlled. States there is no way he can take care of the wound care and states he thinks he will need placement. TCC aware. PT/OT evals pending Adult diet Regular; 4 carb choices (60 gm/meal) 24HR INTAKE/OUTPUT: Intake/Output Summary (Last 24 hours) at 02/26/2024 1357 Last data filed at 02/26/2024 0900 Gross per 24 hour Intake 960 ml Output 1600 ml Net -640 ml Past Medical History: Past Medical History: Diagnosis Date Asthma Bipolar disorder (HCC) Diabetes mellitus (HCC) ETOH abuse HTN (hypertension) Hyperlipidemia MAXIMO on CPAP PTSD (post-traumatic stress disorder) 2/2 witness suicide as a child T2DM (type 2 diabetes mellitus) (HCC) Tobacco abuse LABS: CBC: Recent Labs 02/25/24 0441 02/26/24 0002 WBC 10.2 10.4 RBC 5.05 5.03 HGB 13.7 13.5 HCT 41.3 40.9 MCV 81.8 81.3 RDW 14.0 13.5 PLT 270 265 BMP: Recent Labs 02/25/24 0441 02/26/24 0002 NA 134* 133* K 3.7 4.2 CL 102 102 CO2 25 27 BUN 16 21* CREATININE 0.74 0.95 GLUCOSE 110* 155* CALCIUM 9.3 9.4 ANIONGAP 7 4 LIVER PROFILE: Recent Labs 02/26/24 0002 AST 23 ALT 19 BILITOT 0.8 ALKPHOS 93 PROT 6.8 PT/INR: Recent Labs 02/25/24440 PROTIME 10.9 INR 1.0 CARDIAC ENZYMES: No results for input(s): "TROPONINI" in the last 72 hours. Procalcitonin: No results found for: "PROCAL" COVID-19 PCR: No results for input(s): "COVID19" in the last 72 hours. Objective: Vitals: BP 109/80 (BP Location: Right arm, Patient Position: Sitting) Pulse 76 Temp 36.5 C (97.7 F) (Temporal) Resp 18 Ht 5' 8" (1.727 m) Wt 222 lb (101 kg) SpO2 96% BMI 33.75 kg/m Pulse Ox: SpO2 Av.3 % Min: 96 % Max: 98 % Supplemental O2: O2 Flow Rate (L/min): 6 L/min GENERAL: Lying in bed comfortably, awake and alert HEENT: normocephalic, non-traumatic, MMM NECK: supple, trachea midline HEART: RRR, normal S1 and S2 LUNGS: good breath sounds bilaterally, no wheeze, no rhonchi, no rales ABD: soft, non-tender, no rebound, no guarding, +BS MSK: L dorsal hand with incision and stitches, mild erythema and edema, open surgical opening midline incision with packing SKIN: warm, dry NEURO: no focal deficits Medications: Scheduled PRN atorvastatin, 20 mg, Oral, Nightly divalproex, 500 mg, Oral, 3 times per day gabapentin, 300 mg, Oral, 3 times per day insulin lispro, 0-6 Units, SubCUTAneous, TID WC And insulin lispro, 0-6 Units, SubCUTAneous, Nightly levothyroxine, 50 mcg, Oral, qAM AC piperacillin-tazobactam, 3,375 mg, IntraVENous, q8h QUEtiapine XR, 300 mg, Oral, Nightly PRN medications: acetaminophen OR acetaminophen, dextrose, dextrose, glucagon (rDNA), glucose, naloxone, nicotine polacrilex, OLANZapine (ZyPREXA) 5 mg in sterile water 1 mL injection OR OLANZapine, ondansetron ODT OR ondansetron, oxyCODONE, polyethylene glycol (PEG) 3350, QUEtiapine, traZODone Continuous Assessment Data: Acute, acute on chronic, unstable/uncontrolled chronic problems/diagnoses: L hand tenosynovitis - ortho consulted and sp debridement 02/24. Pain/nausea control. Cultures obtained. Empiric abx. ID consulted. Wound care Hx of schizoaffective/bipolar with hallucinations - psych consulted as pt hallucinating and with flight of thought Unsteady gait- pt reports difficulty ambulating and states this is new. Feels loss of coordination.Pt/OT. No focal deficits Stable chronic problems affecting care, new non-acute diagnoses: Bipolar/PTSD/schizoaffective DM with hyperglycemia Hypothyroid HLD Plan As a result of the above findings & factors, the following mgmt was pursued: - cont meds as ordered - wound care, ortho recs - follow cultures and ID recs for home going abx - am labs, replace lytes prn - PT/OT/CM/SW - delirium precautions: increase activity and limit nighttime disturbances - DVT prophylaxis: encourage ambulation Advance Directive: Full Code Anticipated Discharge - Date - 02/27? - Location - Skilled Facility - Pending the following - placement/auth, abx recs, wound care 35 minutes spent in chart review, lab and radiology interpretation, patient eval, counseling and treatment plan. Extended Emergency Contact Information Primary Emergency Contact: Catie Legera Mobile Relation: Concessionist Secondary Emergency Contact: TungJeny Relation: Mother Isaac Marcos DO Division of Hospitalist Medicine [facility] * Roz Heller, [facility] - 02/26/2024 1:48 PM EDT Vancomycin therapy has been discontinued by Lexy Juares on 02/25. Thank you for the consult. Pharmacy signing off for vancomycin dosing. Roz Heller RPh, PharmD Date: 02/26/24 Time: 1:47 PM * Lexy Juares PA-C - 02/26/2024 9:39 AM EDT Images from the original note were not included. [facility] - Infectious Diseases Advanced Practice Provider Progress Note Subjective: Following for MCPJ infection with extensor rupture s/p arthrotomy/synovectomy and I&D on 02/24. Cx in progress, GPC on stain. Notes reviewed. Pt reports some increased pain of L hand today. Denies fever, chills, abd pain, n/v/d or SOB overnight. Denies worsening RLE pain, currently at his baseline pain level per pt. Has surgery scheduled in [place] later this month for RLE. Vitals: Patient Vitals for the past 24 hrs: BP Temp Temp src Pulse Resp SpO2 Height 02/26/24 0911 135/89 36.3 C (97.3 F) Temporal 67 18 98 % -- 02/26/24 0513 110/79 36.4 C (97.6 F) Temporal 74 18 98 % -- 02/26/24 0103 127/76 36.1 C (97 F) Temporal 50 18 97 % -- 02/25/24 2026 144/78 36.3 C (97.4 F) Temporal 62 18 98 % -- 02/25/24 1808 144/85 36.2 C (97.1 F) Temporal 84 20 97 % -- 02/25/24 1020 141/95 36.4 C (97.5 F) Temporal 73 16 99 % -- 02/25/24 1000 -- -- -- -- -- -- 1.727 m (5' 8") 02/25/24 0940 -- -- -- 77 22 99 % -- Physical Exam: Physical Exam Vitals and nursing note reviewed. Constitutional: General: He is not in acute distress. Appearance: He is normal weight. He is ill-appearing. He is not toxic-appearing or diaphoretic. Comments: Pt sitting up in bed, NAD. Responds to most questions but is slow to respond. Pt is restless. HENT: Head: Normocephalic and atraumatic. Right Ear: External ear normal. Left Ear: External ear normal. Nose: Nose normal. Mouth/Throat: Mouth: Mucous membranes are moist. Pharynx: Oropharynx is clear. No oropharyngeal exudate. Eyes: General: Right eye: No discharge. Left eye: No discharge. Extraocular Movements: Extraocular movements intact. Conjunctiva/sclera: Conjunctivae normal. Pupils: Pupils are equal, round, and reactive to light. Cardiovascular: Rate and Rhythm: Normal rate and regular rhythm. Pulses: Normal pulses. Heart sounds: Normal heart sounds. No murmur heard. Pulmonary: Effort: Pulmonary effort is normal. No respiratory distress. Breath sounds: Wheezing present. No rhonchi. Comments: Unlabored effort on room air. Pt with wheezing on L side of lungs, resolved after pt coughed during exam. (O2 sat at 100%). Abdominal: General: Abdomen is flat. Bowel sounds are normal. There is no distension. Palpations: Abdomen is soft. Tenderness: There is no abdominal tenderness. There is no guarding. Musculoskeletal: General: Deformity present. Cervical back: Normal range of motion. No rigidity. Comments: RLE deformity with edema/dependent rubor. Skin: General: Skin is warm and dry. Coloration: Skin is not jaundiced. Findings: Lesion present. No erythema or rash. Comments: L hand wrapped in post op dressing. Media photos of L hand reviewed -> incision intactand closed. Minimal edema along incision, no drainage seen. Neurological: Mental Status: He is alert. Sensory: Sensory deficit present. Motor: No weakness. Psychiatric: Mood and Affect: Mood normal. Behavior: Behavior normal. Thought Content: Thought content normal. Labs: Recent Labs 02/25/24 0441 02/26/24 0002 NA 134* 133* K 3.7 4.2 CL 102 102 CO2 25 27 BUN 16 21* CREATININE 0.74 0.95 GLUCOSE 110* 155* CALCIUM 9.3 9.4 PROT -- 6.8 BILITOT -- 0.8 ALKPHOS -- 93 AST -- 23 ALT -- 19 Recent Labs 02/25/24 0441 02/26/24 0002 WBC 10.2 10.4 HGB 13.7 13.5 HCT 41.3 40.9 PLT 270 265 LYMPHOPCT 26.4 -- MONOPCT 6.4 -- BASOPCT 0.3 -- NEUTROABS 6.6 -- Micro: No results for input(s): "COVID19" in the last 72 hours. 02/24 2/2 blood cx collected 02/24 L finger fungal cx collected 01/25 L finger cx in progress, GPC on stain Lines: PIV Radiography/Echo/Other: 02/24 XR hand L The bone mineralization is normal. There is no acute fracture. There is no radiopaque foreign body.The joint spaces appear maintained. There is a thin ossification at the third digit DIP. There is soft tissue swelling of the third digit. 02/24 CXR No radiographic acute cardiopulmonary process. 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 02/26/2024 6:31 AM 02/28/2024 Enzo Mayer MD 02/25/2024 10:01 AM 02/28/2024 Enzo Mayer MD 02/25/2024 5:43 AM Length of Stay (Days): 5 GMLOS: 3.9 [facility] [id number] Note* Care Coordination - Ligia Vo RN - 03/01/2024 2:49 PM EDT Images from the original note were not included. Care Management Progress Note Pt remains on H5. He has been accepted at [facility] in [place]. Pt had picc line placed today for intermediate card tender iv therapy through 03/24. Tcc continues to await final ID iv abx orders to send to facility. Anticipate dc to facility tomorrow. 3:12 p.m. IV abx orders have been placed under media tab but there is no note from ID and no okay to use picc line order. Tcc will work on discharge tomorrow. Discharge Milestones and Delays Expected Date/Time: 03/01/2024 Afternoon Disposition: Care Home Facility Transport status: No current request Discharge Milestones Place discharge order Complete med reconciliation Case mgmt discharge readiness Clinical Stability Diagnsotic Workup Expected Discharge History Expected Date/Time Set By Reviewed At 03/01/2024 Afternoon Isaac Marcos DO 03/01/2024 12:28 PM pending PICC placement and final ID recs, pending facility acceptance, medical clearance, and completion of discharge orders" 03/02/2024 Ligia Vo RN 03/01/2024 6:31 AM 03/01/2024 Makenna Floyd RN 02/28/2024 11:35 AM 03/29/2024 Ligia Vo RN 02/27/2024 6:29 AM 02/28/2024 Ligia Vo RN 02/26/2024 6:31 AM 02/28/2024 Enzo Mayer MD 02/25/2024 10:01 AM 02/28/2024 Enzo Mayer MD 02/25/2024 5:43 AM Length of Stay (Days): 5 GMLOS: 3.9 [facility] [id number] Procedure note* Tiffany Aviles MD - 03/01/2024 1:27 PM EDTAssociated Order(s): PICC Insertion/Replacement Post-Procedure Diagnose(s): senior living (current) use of antibiotics; Pyogenic arthritis of left hand, due to unspecified organism (HCC) PICC Insertion/Replacement Date/Time: 03/01/2024 1:27 PM Performed by: Tiffany Aviles MD Authorized by: Tiffany Aviles MD Consent: The indications, risks, benefits, alternatives to the procedure were explained to the patient/surrogate decision maker and their questions answered. Consent was obtained to proceed with the procedure. Timeout: Completed immediately prior to the start of the procedure which included verification of the correct patient, correct site and agreement on the procedure to be done. 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 Anesthetic: Local anesthetic used: lidocaine without epinephrine Procedure details: Preparation: Skin prepped with chlorhexidine Skin prep agent dried: Skin prep agent completely dried prior to procedure Sterile barriers: All five maximal sterile barriers used - gloves, gown, cap, mask and large sterile sheet Hand hygiene: Hand hygiene performed prior to central venous catheter insertion Sterile technique: Sterile technique maintained throughout procedure. Site prior to insertion: Ecchymosis and edema Procedure type: Insertion Orientation: right Location: Basilic Catheter type: Double lumen Catheter size: 5 Fr Lot #: [id number] Trimmed at (cm): 44 Inserted at (cm): 44 Ultrasound guidance: Yes Post-procedure: Post-procedure: Antimicrobial dressing applied and securement device Description/Findings: Flushes easily and blood returned Estimated blood loss: < 5 mL Specify complication(s): No apparent complications Follow-up chest x-ray: Ordered General Comments: Re swollen PIV right AC, left hand infection T [facility] [id number] Procedure note* Tiffany Aviles MD - 03/01/2024 1:27 PM EDTAssociated Order(s): PICC Insertion/Replacement Post-Procedure Diagnose(s): intermediate card tender (current) use of antibiotics; Pyogenic arthritis of left hand, due to unspecified organism (HCC) PICC Insertion/Replacement Date/Time: 03/01/2024 1:27 PM Performed by: Tiffany Aviles MD Authorized by: Tiffany Aviles MD Consent: The indications, risks, benefits, alternatives to the procedure were explained to the patient/surrogate decision maker and their questions answered. Consent was obtained to proceed with the procedure. Timeout: Completed immediately prior to the start of the procedure which included verification of the correct patient, correct site and agreement on the procedure to be done. 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 Anesthetic: Local anesthetic used: lidocaine without epinephrine Procedure details: Preparation: Skin prepped with chlorhexidine Skin prep agent dried: Skin prep agent completely dried prior to procedure Sterile barriers: All five maximal sterile barriers used - gloves, gown, cap, mask and large sterile sheet Hand hygiene: Hand hygiene performed prior to central venous catheter insertion Sterile technique: Sterile technique maintained throughout procedure. Site prior to insertion: Ecchymosis and edema Procedure type: Insertion Orientation: right Location: Basilic Catheter type: Double lumen Catheter size: 5 Fr Lot #: [id number] Trimmed at (cm): 44 Inserted at (cm): 44 Ultrasound guidance: Yes Post-procedure: Post-procedure: Antimicrobial dressing applied and securement device Description/Findings: Flushes easily and blood returned Estimated blood loss: < 5 mL Specify complication(s): No apparent complications Follow-up chest x-ray: Ordered General Comments: Re swollen PIV right AC, left hand infection documented in this [facility]06-01-2024 Plan of care note* Care Plan - Christoph Tom RN - 02/28/2024 5:07 PM EDT Problem: Pain - Adult Goal: Verbalizes/displays adequate comfort level or baseline comfort level Outcome: Progressing Problem: Safety - Adult Goal: Free from fall injury Outcome: Progressing Problem: Discharge Planning Goal: Discharge to home or other facility with appropriate resources Outcome: Progressing Problem: Chronic Conditions and Co-morbidities Goal: Patient's chronic conditions and co-morbidity symptoms are monitored and maintained or improved Outcome: Progressing Problem: Knowledge Deficit Goal: Patient/family/caregiver demonstrates understanding of disease process, treatment plan, medications, and discharge instructions Outcome: Progressing Problem: Potential for Compromised Skin Integrity Goal: Skin Integrity is Maintained or Improved Outcome: Progressing Goal: Nutritional status is improving Outcome: Progressing Problem: Urinary Incontinence Goal: Perineal skin integrity is maintained or improved Outcome: Progressing The patient is Moderately Stable - Low risk of patient condition declining or worsening [facility] [id number] Note* Care Coordination - Makenna Floyd RN - 02/28/2024 10:43 AM EDT Images from the original note were not included. CARE COORDINATION DAILY NOTE/UPDATE [facility] Discharge Barriers: pending PICC placement and final ID recs, pending facility acceptance, medical clearance, and completion of discharge orders This TCC was tasked to follow this patient through the weekend assisting with discharge planning and to check on referrals in careport. Chart and careport reviewed. No referrals noted in careport. This TCC placed referrals to listed facility choices. Expected discharge, Discharge Milestones, and Rapid Rounding reviewed and updated. TCC will continue to follow. Discharge Milestones and Delays Expected Date/Time: 03/01/[address] discharge order Complete med reconciliation Case mgmt discharge readiness Clinical Stability Diagnsotic Workup Expected Discharge History Expected Date/Time Set By Reviewed At 03/01/2024 Makenna Floyd RN 02/28/2024 11:35 AM pending PICC placement and final ID recs, pending facility acceptance, medical clearance, and completion of discharge orders" 03/29/2024 Ligia Vo RN 02/27/2024 6:29 AM 02/28/2024 Ligia Vo RN 02/26/2024 6:31 AM 02/28/2024 Enzo Mayer MD 02/25/2024 10:01 AM 02/28/2024 Enzo Mayer MD 02/25/2024 5:43 AM Length of Stay (Days): 3 GMLOS: 3.9 [facility] [id number] Note* Care Coordination - Makenna Floyd RN - 02/28/2024 10:43 AM EDT Images from the original note were not included. CARE COORDINATION DAILY NOTE/UPDATE Discharge Plan: [facility] Discharge Barriers: pending PICC placement and final ID recs, pending facility acceptance, medical clearance, and completion of discharge orders This TCC was tasked to follow this patient through the weekend assisting with discharge planning and to check on referrals in careport. Chart and careport reviewed. No referrals noted in careport. This TCC placed referrals to listed facility choices. Expected discharge, Discharge Milestones, and Rapid Rounding reviewed and updated. TCC will continue to follow. Discharge Milestones and Delays Expected Date/Time: 03/01/[address] discharge order Complete med reconciliation Case mgmt discharge readiness Clinical Stability Diagnsotic Workup Expected Discharge History Expected Date/Time Set By Reviewed At 03/01/2024 Makenna Floyd RN 02/28/2024 11:35 AM pending PICC placement and final ID recs, pending facility acceptance, medical clearance, and completion of discharge orders" 03/29/2024 Ligia Vo RN 02/27/2024 6:29 AM 02/28/2024 Ligia Vo RN 02/26/2024 6:31 AM 02/28/2024 Enzo Mayer MD 02/25/2024 10:01 AM 02/28/2024 Enzo Mayer MD 02/25/2024 5:43 AM Length of Stay (Days): 3 GMLOS: 3.9 [facility] [id number] Note* Care Coordination - REMIGIO Wilson - 02/27/2024 5:00 PM EDT SW phone call from Antonella Director of Adult CM Services #[phone] (cell) and discussed Pt current status and discharge plans. BEATRICE reported possible discharge plan to facility for rehabilitation. Antonella reported Pt able to return to address located in Pt chart and CM will continue to work w / Pt in finding other housing. BEATRICE reported to have outreached Psych and requested Expert Eval be completed while inpatient status,but was informed EE should be completed by outpatient psychiatrist. Antonella reported Pt has a scheduled appt w/ outpatient psychiatrist on 04/06/24 w / Dr Dickinson, but high likelyhood Pt may not follow up with scheduled appt.. BEATRICE reported plans to notify [facility] of Pt's discharge. [facility] [id number] Note* Care Coordination - REMIGIO Wilson - 02/27/2024 5:00 PM EDT BEATRICE phone call from Antonella Director of Adult Services #[phone] (cell) and discussed Pt current status and discharge plans. BEATRICE reported possible discharge plan to facility for rehabilitation. Antonella reported Pt able to return to address located in Pt chart and CM will continue to work w / Pt in finding other housing. BEATRICE reported to have outreached Psych and requested Expert Eval be completed while inpatient status,but was informed EE should be completed by outpatient psychiatrist. Antonella reported Pt has a scheduled appt w/ outpatient psychiatrist on 04/06/24 w / Dr Dickinson, but high likelyhood Pt may not follow up with scheduled appt.. BEATRICE reported plans to notify [facility] of Pt's discharge. [facility] [id number] Note* Care Coordination - Ligia Vo RN - 02/27/2024 2:39 PM EDT Images from the original note were not included. Care Management Progress Note Pt remains on H5. [facility] did notify OT this am that pt was "see today". OT did stop by around lunch and pt asked if they could return. I have sent OT a secure message to see if they can return and evaluate pt so that I can start precert for snf placement. Pt is ready for discharge. Discharge Milestones and Delays Expected Date/Time: 03/29/[address] discharge order Complete med reconciliation Case mgmt discharge readiness Clinical Stability Diagnsotic Workup Expected Discharge History Expected Date/Time Set By Reviewed At 03/29/2024 Ligia Vo RN 02/27/2024 6:29 AM 02/28/2024 Ligia Vo RN 02/26/2024 6:31 AM 02/28/2024 Enzo Mayer MD 02/25/2024 10:01 AM 02/28/2024 Enzo Mayer MD 02/25/2024 5:43 AM Length of Stay (Days): 2 GMLOS: 3.9 [facility] [id number] Note* Care Coordination - Ligia Vo RN - 02/27/2024 2:39 PM EDT Images from the original note were not included. Care Management Progress Note Pt remains on H5. [facility] did notify OT this am that pt was "see today". OT did stop by around lunch and pt asked if they could return. I have sent OT a secure message to see if they can return and evaluate pt so that I can start precert for snf placement. Pt is ready for discharge. Discharge Milestones and Delays Expected Date/Time: 03/29/[address] discharge order Complete med reconciliation Case mgmt discharge readiness Clinical Stability Diagnsotic Workup Expected Discharge History Expected Date/Time Set By Reviewed At 03/29/2024 Ligia Vo RN 02/27/2024 6:29 AM 02/28/2024 Ligia Vo RN 02/26/2024 6:31 AM 02/28/2024 Enzo Mayer MD 02/25/2024 10:01 AM 02/28/2024 Enzo Mayer MD 02/25/2024 5:43 AM Length of Stay (Days): 2 GMLOS: 3.9 [facility] [id number] Note* Care Coordination - Ligia Vo RN - 02/26/2024 1:08 PM EDT Care Managment Initial Assessment Date: 02/26/2024 Patient Name: Talia Ruby : 1980 Patient Information Source of Information: Patient Cognition/Language: WFL - Within Functional Limits Permission given to speak with patient tour sales representative/caregiver as indicated: Confirmation of Payer with patient/family: Yes Payer Name: Medicare A/B [place]: No Confirmation of Primary Care Physician: No PCP Primary Caregiver: Self If assistance needed, confirmed caregiver ready, willing and able to care for patient at discharge: Confirmed with: Living Arrangements Current Residence: (trailer behind parents' house) Number of Floors 1 Number of Entry Steps: 4 Bed/Bath Levels: Both first floor Facility: Facility Name: Plan to Return: Lives with: (sister) Support Systems: Parent, Family members, sound effects manager/social work case manager (sound effects manager Jaci Leger [phone]) Activities of Daily Living Ambulation: Independent (uses crutch) Bathing/Dressing: Independent Elimination/Continence/Toileting: Independent Feeding: Independent Who Assists with Activities of Daily Living: Instrumental Activities of Daily Living Prescription Coverage: Yes [facility]acy Used: [facility] Medication Management: Independent Transportation/Shopping: Independent Transportation Mode: Car Needs Assistance with Transportation at Discharge: Yes Meal Preparation: Independent Laundry/Cleaning: Independent Finances/Bill Paying: Independent Communication: Independent Types of Care Services/Equipment Utilized Care Services: Dialysis Type: Durable Medical Equipment: Other (Comment) DME Provider: crutches Patient's Goal/Discharge Plan Patient expects to be discharged to: SNF placement Discharge Planning Actions: Continue to follow Patient's Choice Rights and [employer] and Collaborative Relationships Disclosed as Indicated for Post-Acute Care: Interdisciplinary Team Engagement: Social Work Referral for: Additional Information: 43 yo male admitted to H5, transferred from [place] ED for hand surgery eval. Pt went to OR on 02/24for I&D L hand and long finger MC joint after unknown injury. Pt is on iv vanc and zosyn; ID following. PT/OT evals have been ordered. Pt does have a supervisor case loading: Jaci Leger. Jaci is requesting expert eval so that she can become pt's legal guardian. Pt is alert and oriented x 3 but appear s to have some mental deficiency. L had is splinted and wrapped but pt states he is having trouble now using his R hand. Pt independent; states he does drive. Pt would like to go to facility as he states he can no longer live in trailer with his sister and he cannot live with his mom. Tcc will follow for dc planning. Ligia Vo RN [facility] [id number] Note* Care Coordination - Ligia Vo RN - 02/26/2024 1:08 PM EDT Care Managment Initial Assessment Date: 02/26/2024 Patient Name: Talia Ruby : 1980 Patient Information Source of Information: Patient Cognition/Language: WFL - Within Functional Limits Permission given to speak with patient tour sales representative/caregiver as indicated: Confirmation of Payer with patient/family: Yes Payer Name: Medicare A/B [place]: No Confirmation of Primary Care Physician: No PCP Primary Caregiver: Self If assistance needed, confirmed caregiver ready, willing and able to care for patient at discharge: Confirmed with: Living Arrangements Current Residence: (trailer behind parents' house) Number of Floors 1 Number of Entry Steps: 4 Bed/Bath Levels: Both first floor Facility: Facility Name: Plan to Return: Lives with: (sister) Support Systems: Parent, Family members, sound effects manager/social work case manager (sound effects manager Jaci Leger [phone]) Activities of Daily Living Ambulation: Independent (uses crutch) Bathing/Dressing: Independent Elimination/Continence/Toileting: Independent Feeding: Independent Who Assists with Activities of Daily Living: Instrumental Activities of Daily Living Prescription Coverage: Yes [facility]acy Used: [facility] Medication Management: Independent Transportation/Shopping: Independent Transportation Mode: Car Needs Assistance with Transportation at Discharge: Yes Meal Preparation: Independent Laundry/Cleaning: Independent Finances/Bill Paying: Independent Communication: Independent Types of Care Services/Equipment Utilized Care Services: Dialysis Type: Durable Medical Equipment: Other (Comment) DME Provider: crutches Patient's Goal/Discharge Plan Patient expects to be discharged to: SNF placement Discharge Planning Actions: Continue to follow Patient's Choice Rights and [employer] and Collaborative Relationships Disclosed as Indicated for Post-Acute Care: Interdisciplinary Team Engagement: Social Work Referral for: Additional Information: 43 yo male admitted to , transferred from [facility] ED for hand surgery eval. Pt went to OR on 02/24for I&D L hand and long finger MC joint after unknown injury. Pt is on iv vanc and zosyn; ID following. PT/OT evals have been ordered. Pt does have a supervisor case loading: Jaci Leger. Jaci is requesting expert eval so that she can become pt's legal guardian. Pt is alert and oriented x 3 but appear s to have some mental deficiency. L had is splinted and wrapped but pt states he is having trouble now using his R hand. Pt independent; states he does drive. Pt would like to go to facility as he states he can no longer live in trailer with his sister and he cannot live with his mom. Tcc will follow for dc planning. Ligia Vo RN [id number] Note* Care Coordination - REMIGIO Wilson - 02/26/2024 12:21 PM EDT SW follow up: SW outreach to Psych via secured chat and relayed information from prior note, Jaci, who is listed as emergency contact in chart, and identified self as Guardianship Casual Shoe Inspector #[phone], is requesting Expert Eval completed while inpatient status so she can submit guardianship application. Jaci reported she attempted to get EE completed while Pt was outpatient status but was not successful due Pt was either in and out of the hospital or did not follow up for Tx for Dr to meet w/ Pt to complete evaluation. SW follow up w / SW telephone operators supervisor and informed emergency contact Jaci is listed as Guardian in chart but reported she is not legal guardian, in process of completing application. SW was referred to change status in chart. SW changed Jaci from Legal Guardian status to CM. SW met w / Pt, introduced self, explained role, and assessed for supports and community resource needs. Pt presented as pleasant and cooperative and engaged in ongoing conversation. Pt stated he lives in [facility], but has no set residence, at times stays in a trailer with his sister and sisters child which is located behind his mothers home. Pt reported he receives SSD income of roughly $1100 month for mental health and physical disability, is working with his CM from outpatient mental health clinic to apply for subsidized housing, but could not remember CM name. Pt reported he needs assistance getting a foodstamp card and has not been taking his medications as"they make my head not work". Pt reported he ended up in the hospital because "I fell into a windowand hurt my hand". Pt stated he recently followed up with his PCP Dr. Crow Matute #[phone] located in [place]. He stated he has scheduled surgery on 03/15/24 to get his leg amputated. Pt repo rted "I broke my leg so many times they gave me the option to cut it off because I don't take care off it". Pt stated he is not able to care for himself as his right hand does not work properly, stating his belief he might have had a stroke, and stated he can't use his left hand due to the current injury. Pt reported no supports at home stating his desire for discharge to rehab until he can care for himself. SW reported plans to follow up with his CM and TCC. SW referred Pt to outreach SW as needed. SW spoke w / TCC and reported above documented information. SW phone call w / Guardian Manager Payer Jaci and discussed above documented information. Jaci reported Pt follows up with CM from Outpatient clinic, Eduarda, unusure of contact # but informed of Director of Adult CM at clinic [facility] # [phone] x [phone] as well as informed of Assisted Oupatient Tx (AOT) Wkr Luz #[phone]. Jaci reported Pt is not part of AOT at this time butthey are in process of trying to get Pt into this court ordered program. Jaci reported CM Eduarda would be field contact technician for assisting Pt in follow up with subsidized housing and foodstamps. SW phone to Director of Adult CM at [facility] # [phone] x [phone] and left VM message requesting return call. SW following [facility] [id number] Note* Care Coordination - REMIGIO Wilson - 02/26/2024 12:21 PM EDT SW follow up: SW outreach to Psych via secured chat and relayed information from prior note, Jaci, who is listed as emergency contact in chart, and identified self as Guardianship Casual Shoe Inspector #[phone], is requesting Expert Eval completed while inpatient status so she can submit guardianship application. Jaci reported she attempted to get EE completed while Pt was outpatient status but was not successful due Pt was either in and out of the hospital or did not follow up for Tx for Dr to meet w/ Pt to complete evaluation. SW follow up w / SW telephone operators supervisor and informed emergency contact Jaci is listed as Guardian in chart but reported she is not legal guardian, in process of completing application. SW was referred to change status in chart. SW changed Jaci from Legal Guardian status to CM. SW met w / Pt, introduced self, explained role, and assessed for supports and community resource needs. Pt presented as pleasant and cooperative and engaged in ongoing conversation. Pt stated he lives in [facility] [place], but has no set residence, at times stays in a trailer with his sister and sisters child which is located behind his mothers home. Pt reported he receives SSD income of roughly $1100 month for mental health and physical disability, is working with his CM from outpatient mental health clinic to apply for subsidized housing, but could not remember CM name. Pt reported he needs assistance getting a foodstamp card and has not been taking his medications as"they make my head not work". Pt reported he ended up in the hospital because "I fell into a windowand hurt my hand". Pt stated he recently followed up with his PCP Dr. Crow Matute #[phone] located in [place]. He stated he has scheduled surgery on 03/15/24 to get his leg amputated. Pt repo rted "I broke my leg so many times they gave me the option to cut it off because I don't take care off it". Pt stated he is not able to care for himself as his right hand does not work properly, stating his belief he might have had a stroke, and stated he can't use his left hand due to the current injury. Pt reported no supports at home stating his desire for discharge to rehab until he can care for himself. SW reported plans to follow up with his CM and TCC. SW referred Pt to outreach SW as needed. BEATRICE spoke w /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 currently. Past Medical History: Past Medical History: Diagnosis Date Asthma Bipolar disorder (HCC) Diabetes mellitus (HCC) ETOH abuse HTN (hypertension) Hyperlipidemia MAXIMO on CPAP PTSD (post-traumatic stress disorder) 2/2 witness suicide as a child T2DM (type 2 diabetes mellitus) (HCC) Tobacco abuse Past Surgical History: Past Surgical History: Procedure Laterality Date FRACTURE SURGERY Right leg, s/p bone graft OTHER SURGICAL HISTORY 02/25/2024 IRRIGATION AND DEBRIDEMENT HAND AND LONG FINGER METACARPOPHALANGEAL JOINT - Left Current Medications: Current Facility-Administered Medications Medication Dose Route Frequency Provider Last Rate Last Admin acetaminophen (Tylenol) tablet 650 mg 650 mg Oral q6h PRN Shahram Jacobo MD Or acetaminophen (Tylenol) suppository 650 mg 650 mg Rectal q6h PRN Shahram Jacobo MD atorvastatin (Lipitor) tablet 20 mg 20 mg Oral Nightly Shahram Jacobo MD dextrose 5 % infusion 100 mL/hr IntraVENous PRN Shahram Jacobo MD dextrose 50 % solution 12.5 g 12.5 g IntraVENous PRN Shahram Jacobo MD divalproex (Depakote) EC tablet 500 mg 500 mg Oral 3 times per day Shahram Jacobo MD 500 mg at 02/25/24 1106 gabapentin (Neurontin) capsule 300 mg 300 mg Oral 3 times per day Shahram Jacobo MD 300 mg at 02/25/24 1015 glucagon (human recombinant) injection 1 mg 1 mg IntraMUSCular PRN Shahram Jacobo MD glucose oral gel 15 g 15 g Oral PRN Shahram Jacobo MD Insulin Lispro (Humalog) injection 0-6 Units 0-6 Units SubCUTAneous TID WC Shahram Jacobo MD And Insulin Lispro (Humalog) injection 0-6 Units 0-6 Units SubCUTAneous Nightly Shahram Jacobo MD levothyroxine (Synthroid, Levoxyl) tablet 50 mcg 50 mcg Oral qAM AC Shahram Jacobo MD 50 mcg at 02/25/24 1015 naloxone (Narcan) injection 0.4 mg 0.4 mg IntraVENous q5 min PRN Shahram Jacobo MD nicotine polacrilex (Nicorette) gum 2 mg 2 mg Mouth/Throat q3h PRN Shahram Jacobo MD ondansetron ODT (Zofran-ODT) disintegrating tablet 4 mg 4 mg Oral q8h PRN Shahram Jacobo MD Or ondansetron (Zofran) injection 4 mg 4 mg IntraVENous q6h PRN Shahram Jacobo MD oxyCODONE (Roxicodone) immediate release tablet 5 mg 5 mg Oral q6h PRN Shahram Jacobo MD piperacillin-tazobactam (Zosyn) IVPB 3,375 mg 3,375 mg IntraVENous q8h Shahram Jacobo MD 12.5 mL/hrat 02/25/24 1223 3,375 mg at 02/25/24 1223 polyethylene glycol (PEG) 3350 (Miralax) packet 17 g 17 g Oral Daily PRN Shahram Jacobo MD QUEtiapine (SEROquel) tablet 12.5 mg 12.5 mg Oral TID PRN Shahram Jacobo MD 12.5 mg at 02/25/24 1143 QUEtiapine XR (SEROquel XR) 24 hr tablet 300 mg 300 mg Oral Nightly Shahram Jacobo MD traZODone (Desyrel) tablet 50 mg 50 mg Oral Nightly PRN Shahram Jacobo MD vancomycin (Vancocin) 1750 mg in NS 500 mL IVPB (compounded premix) 1,750 mg IntraVENous q12h LOU Hanson Allergies: Allergies Allergen Reactions Haldol [Haloperidol] Metformin Risperdal [Risperidone] Social History: Social History Socioeconomic History Marital status: Single Spouse name: Not on file Number of children: Not on file Years of education: Not on file Highest education level: Not on file Occupational History Not on file Tobacco Use Smoking status: Every Day Smokeless tobacco: Not on file Substance and Sexual Activity Alcohol use: Yes Drug use: Yes Types: Marijuana Sexual activity: Not on file Other Topics Concern Not on file Social History Narrative Not on file Social Determinants of Health Financial Resource Strain: Not on file Food Insecurity: Not on file Transportation Needs: Not on file Physical Activity: Not on file Stress: Not on file Social Connections: Not on file Intimate Partner Violence: Unknown (02/25/2024) Humiliation, Afraid, Rape, and Kick questionnaire Fear of Current or Ex-Partner: No Emotionally Abused: No Physically Abused: Not on file Sexually Abused: Not on file Housing Stability: Not on file Family History: Family History Problem Relation Name Age of Onset Bipolar disorder Other Review of Systems: Review of Systems Constitutional: Positive for chills and fever. Negative for activity change and appetite change. HENT: Negative for congestion, ear discharge, ear pain, facial swelling, hearing loss, sore throat,trouble swallowing and voice change. Eyes: Negative for photophobia, pain, discharge, redness, itching and visual disturbance. Respiratory: Negative for apnea, cough, choking, shortness of breath and wheezing. Cardiovascular: Negative for chest pain and leg swelling. Gastrointestinal: Negative for abdominal distention, abdominal pain, constipation, diarrhea, nauseaand vomiting. Genitourinary: Negative for difficulty urinating, dysuria, flank pain, frequency, hematuria and urgency. Musculoskeletal: Positive for arthralgias and joint swelling. Negative for gait problem, neck pain and neck stiffness. Skin: Positive for wound. Negative for color change and rash. Neurological: Negative for dizziness, speech difficulty, weakness, light- headedness, numbness and headaches. Psychiatric/Behavioral: Positive for behavioral problems. Negative for agitation and confusion. Vitals: Patient Vitals for the past 24 hrs: BP Temp Temp src Pulse Resp SpO2 Height Weight 02/25/24 1020 141/95 36.4 C (97.5 F) Temporal 73 16 99 % -- -- 02/25/24 1000 -- -- -- -- -- -- 1.727 m (5' 8") -- 02/25/24 0940 -- -- -- 77 22 99 % -- -- 02/25/24 0930 (!) 158/87 -- -- 70 19 96 % -- -- 02/25/24 0915 (!) 166/90 -- -- 74 19 98 % -- -- 02/25/24 0900 (!) 148/94 36.2 C (97.1 F) Temporal 78 16 100 % -- -- 02/25/24 0719 124/86 36.7 C (98.1 F) -- 86 18 -- -- -- 02/25/24 0556 127/79 -- -- 70 18 98 % -- -- 02/25/24 0514 -- -- -- -- -- -- -- 101 kg (222 lb) 02/25/24 0406 120/86 36.8 C (98.2 F) Oral 74 18 97 % -- -- Physical Exam: Physical Exam Vitals and nursing note reviewed. Constitutional: General: He is not in acute distress. Appearance: He is normal weight. He is ill-appearing. He is not toxic-appearing or diaphoretic. Comments: Pt sitting up in bed, NAD. Responds to most questions but is slow to respond. Pt is restless. HENT: Head: Normocephalic and atraumatic. Right Ear: External ear normal. Left Ear: External ear normal. Nose: Nose normal. Mouth/Throat: Mouth: Mucous membranes are moist. Pharynx: Oropharynx is clear. No oropharyngeal exudate. Eyes: General: Right eye: No discharge. Left eye: No discharge. Extraocular Movements: Extraocular movements intact. Conjunctiva/sclera: Conjunctivae normal. Pupils: Pupils are equal, round, and reactive to light. Cardiovascular: Rate and Rhythm: Normal rate and regular rhythm. Pulses: Normal pulses. Heart sounds: Normal heart sounds. No murmur heard. Pulmonary: Effort: Pulmonary effort is normal. No respiratory distress. Breath sounds: Normal breath sounds. No wheezing or rhonchi. Comments: Unlabored effort on room air Abdominal: General: Abdomen is flat. Bowel sounds are normal. There is no distension. Palpations: Abdomen is soft. Tenderness: There is no abdominal tenderness. There is no guarding. Musculoskeletal: Cervical back: Normal range of motion. No rigidity. Skin: General: Skin is warm and dry. Coloration: Skin is not jaundiced. Findings: Lesion present. No erythema or rash. Comments: L hand wrapped in post op dressing. Media photos of L hand reviewed. Neurological: Mental Status: He is alert. Sensory: Sensory deficit present. Motor: No weakness. Psychiatric: Mood and Affect: Mood normal. Behavior: Behavior normal. Thought Content: Thought content normal. Labs: Recent Labs 02/25/24 0441 NA 134* K 3.7 CL 102 CO2 25 BUN 16 CREATININE 0.74 GLUCOSE 110* CALCIUM 9.3 Recent Labs 02/25/24 0441 WBC 10.2 HGB 13.7 HCT 41.3 PLT 270 LYMPHOPCT 26.4 MONOPCT 6.4 BASOPCT 0.3 NEUTROABS 6.6 Micro: No results for input(s): "COVID19" in the last 72 hours. 02/24 L finger fungal cx collected 01/25 L finger cx collected Lines: PIV Radiography/Echo/Other: 02/24 XR hand L The bone mineralization is normal. There is no acute fracture. There is no radiopaque foreign body.The joint spaces appear maintained. There is a thin ossification at the third digit DIP. There is soft tissue swelling of the third digit. 02/24 CXR No radiographic acute cardiopulmonary process. 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 Maintain pip tazo. Blood cx ordered Follow up intra op cx, optimize as able Tdap booster ordered (last known Tdap in 2017) Psych consulted ID to follow Total time 80 minutes on this day of encounter includes counseling, coordinating plan of care, record and documentation review before and after visit including documentation and time not explicitly included on EMR time stamp for accounting for open encounter. KANDIS Holt, KORI * Micha Fischer MD - 02/25/2024 4:20 AM EDT Images from the original note were not included. Ortho H&P/Consult Patient: Talia Ruby Date of : 1980 Acct: [id number] PCP: No primary care provider on file. Date of Admission: 02/25/2024 Date of Service: Pt seen/examined on 02/25/2024 Chief Complaint: Left long finger pain History Of Present Illness: This is a 43 y.o. right hand dominant male who presents with approximately 1 week of left long finger pain. Patient cut his hand on glass and treated it conservatively at home. He did not seek medical attention and has not been on antibiotics. He appreciated drainage over the last few days and his pain increased as well as his swelling. He denies previous injuries to the left hand. He denies numbness and tingling in affected extremity. He denies other wounds. Patient has schizophrenia and bipolar disorder Patient endorses smoking, drinking, drug history. The patient is known to the orthopedic surgery service for a remote injury to his right lower extremity with chronic deformity and osteomyelitis currently being managed by [facility]. Reportedly they have plans to complete a BKA in the future with Anselmo Caal MD Patient ambulation status: no difficulty. Antiplatelets/Anticoagulation includes: none. Profession/Employment: Unemployed Past Medical History: Past Medical History: Diagnosis Date Asthma Bipolar disorder (HCC) Diabetes mellitus (HCC) ETOH abuse HTN (hypertension) Hyperlipidemia MAXIMO on CPAP PTSD (post-traumatic stress disorder) 2/2 witness suicide as a child T2DM (type 2 diabetes mellitus) (HCC) Tobacco abuse Past Surgical History: Past Surgical History: Procedure Laterality Date FRACTURE SURGERY Right leg, s/p bone graft Home Medications: Prior to Admission medications Not on File Current Hospital Medications: Current Facility-Administered Medications: HYDROmorphone (Dilaudid) injection 1 mg, 1 mg, IntraVENous, Once, Enzo Mayer MD piperacillin-tazobactam (Zosyn) IVPB 3,375 mg, 3,375 mg, IntraVENous, Once, Enzo Mayer MD vancomycin (Vancocin) 20 mg/kg in sodium chloride 0.9 % 500 mL IVPB, 20 mg/kg, IntraVENous, Once, Enzo Myaer MD No current outpatient medications on file. Allergies: Haldol [haloperidol], Metformin, and Risperdal [risperidone] Social History: Social History Socioeconomic History Marital status: Single Spouse name: Not on file Number of children: Not on file Years of education: Not on file Highest education level: Not on file Occupational History Not on file Tobacco Use Smoking status: Every Day Smokeless tobacco: Not on file Substance and Sexual Activity Alcohol use: Yes Drug use: Yes Types: Marijuana Sexual activity: Not on file Other Topics Concern Not on file Social History Narrative Not on file Social Determinants of Health Financial Resource Strain: Not on file Food Insecurity: Not on file Transportation Needs: Not on file Physical Activity: Not on file Stress: Not on file Social Connections: Not on file Intimate Partner Violence: Not on file Housing Stability: Not on file Family History: Family History Problem Relation Name Age of Onset Bipolar disorder Other Further Family History is noncontributory to this injury. REVIEW OF SYSTEMS: Review of Systems - General ROS: negative for - chills, fatigue, fever, malaise or night sweats Psychological ROS: negative Ophthalmic ROS: negative ENT ROS: negative for - headaches or sore throat Hematological and Lymphatic ROS: negative for - bleeding problems or blood clots Respiratory ROS: no cough, shortness of breath, or wheezing Cardiovascular ROS: no chest pain or dyspnea on exertion Gastrointestinal ROS: negative Musculoskeletal ROS: See HPI Neurological ROS: negative for - bowel and bladder control changes, gait disturbance or numbness/tingling All other systems reviewed and are negative PHYSICAL EXAM: BP 120/86 Pulse 74 Temp 36.8 C (98.2 F) (Oral) Resp 18 SpO2 97% GENERAL APPEARANCE: Awake and oriented x2. No acute distress, except appropriate to injury. MOOD AND AFFECT: Calm appropriate to situation GAIT AND STATION: Patient is in bed and able to ambulate REFLEXES: No clonus or Babinski. COORDINATION and BALANCE: Patient is grossly coordinated Lymphadenopathy: none on examination of the affected extremity(s) Left Upper Extremity: -No obvious pain or deformity to inspection with normal joint range of motion, stability, and muscle strength except noted below -No TTP over clavicle, shoulder, humerus, elbow, forearm, wrist, hand -TTP: long finger -Radial pulse palpable -SILT in radial/median/ ulnar nerve distributions -Motor + AIN/PIN/ulnar nerve functions -No Lymphedema -Skin intact except where noted below -Painless pROM at shoulder/elbow/wrist 2-point discrimination (mm) LEFT Hand Thumb Index Long Ring Small r u r u r u r u r u 5 5 5 5 5 5 5 5 5 5 Median Ulnar 1 cm laceration over the dorsal aspect of the long finger MCPJ. Actively draining purulent material. Short arc range of motion pain to the MCPJ. Volarly, there is minimal tenderness palpation along the flexor tendon sheath. Minimal to no pain with palpation proximally into the proximal hand both volarly and dorsally. No proximal streaking. Wound does probe down to bone at the level of the MCPJ. Unable to completely assess patient extensor tendon due to pain. Patient able to gently extend finger, although incompletely. Labs: CBC: No results found for: "WBC", "RBC", "HEMOGLOBIN" BMP:No results found for: "GLUCOSE", "SODIUM", "POTASSIUM", "CHLORIDE", "CO2", "BUN", "CREATININE","CALCIUM" PT/INR: No results found for: "PT", "INR", "APTT" Type and Screen: No results found for: "RH", "LABANTI" CRP: No results found for: "CRP" ESR: No results found for: "SEDRATE" HgBA1c: No components found for: "LABA1C" The above labs were reviewed by me. Radiology: The below imaging was independently reviewed and interpreted XR: 02/25/2024 Left hand: No acute fractures or dislocations. No obvious evidence of periosteal reaction or cortical erosion. Radiology report reviewed. ASSESSMENT: 43 y.o. male with left long finger MCPJ septic arthritis PLAN: -D/w Dr. Fischer -Plan for OR today on 02/24 for left hand and long finger MCPJ irrigation and debridement -NPO/NAC -Clearance/optimization -Consented -Added -Labs completed -Ice -Nonweightbearing to left upper extremity -Admit to medicine -Pain control and medical management per medicine -Please hold DVT prophylaxis in anticipation of OR -Please comment on clearance in case of OR, page ortho pgr [phone] with clearance status Syd Clement MD Orthopaedic Surgery, PGY-2 02/25/2024 6:20 AM Attending Physician Statement I have examined the patient, including pertinent history and exam findings and discussed these withthe Orthopaedic resident. I agree with the assessment, plan and orders as documented in the chart. Electronically signed by @[email or web address]@ on @TDNR@ at @NOWNR@ General risks of surgery including anesthesia, reaction to medicine including , unsightly skinincision, continued or chronic pain, inability to return to previous functional capacity either at home or work, risk of chronic pain syndrome, neurovascular injury, infection and the need for further surgery were explained. No guarantees were stated or implied. documented in this [facility]05-29-2024 Nurse Note* Kelly Pratt RN - 02/25/2024 1:56 PM EDT Patient [id number]* Kelly Pratt RN - 02/25/2024 1:56 PM EDT Patient refused second set of blood cultures documented in this [facility]05-29-2024 Consult note* Lexy Juares PA-C - 02/25/2024 12:43 PM EDTAssociated Order(s): IP CONSULT TO INFECTIOUS DISEASES Images from the original note were not included. 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 Per ED notes at [place], pt was recently evaluated at [facility] and has not been compliant with his psych meds. Pt had an extensive L hand wound with active drainage over joint space. Was directly admitted with orth hand service at [facility] for debridement. Pt underwent arthrotomy and synovectomy L long MPJ, repair of extensor tendon L long finger, and I&D of L 2nd/3rd web spaces with Dr. Fischer on 02/24. Intra op cx were obtained. Pt is seen post-operatively in his room. Pt is a poor historian. Is able to tell me he went througha window and landed on his L hand last week. Attempted to clean out his wound as best he could, buthe had immense pain at the site since. Endorses feeling fever and chills at home. Denies abd pain, n/v/d. States his L hand pain is well controlled currently. Past Medical History: Past Medical History: Diagnosis Date Asthma Bipolar disorder (HCC) Diabetes mellitus (HCC) ETOH abuse HTN (hypertension) Hyperlipidemia MAXIMO on CPAP PTSD (post-traumatic stress disorder) 2/2 witness suicide as a child T2DM (type 2 diabetes mellitus) (HCC) Tobacco abuse Past Surgical History: Past Surgical History: Procedure Laterality Date FRACTURE SURGERY Right leg, s/p bone graft OTHER SURGICAL HISTORY 02/25/2024 IRRIGATION AND DEBRIDEMENT HAND AND LONG FINGER METACARPOPHALANGEAL JOINT - Left Current Medications: Current Facility-Administered Medications Medication Dose Route Frequency Provider Last Rate Last Admin acetaminophen (Tylenol) tablet 650 mg 650 mg Oral q6h PRN Shahram Jacobo MD Or acetaminophen (Tylenol) suppository 650 mg 650 mg Rectal q6h PRN Shahram Jacobo MD atorvastatin (Lipitor) tablet 20 mg 20 mg Oral Nightly Shahram Jacobo MD dextrose 5 % infusion 100 mL/hr IntraVENous PRN Shahram Jacobo MD dextrose 50 % solution 12.5 g 12.5 g IntraVENous PRN Shahram Jacobo MD divalproex (Depakote) EC tablet 500 mg 500 mg Oral 3 times per day Shahram Jacobo MD 500 mg at 02/25/24 1106 gabapentin (Neurontin) capsule 300 mg 300 mg Oral 3 times per day Shahram Jacobo MD 300 mg at 02/25/24 1015 glucagon (human recombinant) injection 1 mg 1 mg IntraMUSCular PRN Shahram Jacobo MD glucose oral gel 15 g 15 g Oral PRN Shahram Jacobo MD Insulin Lispro (Humalog) injection 0-6 Units 0-6 Units SubCUTAneous TID WC Shahram Jacobo MD And Insulin Lispro (Humalog) injection 0-6 Units 0-6 Units SubCUTAneous Nightly Shahram Jacobo MD levothyroxine (Synthroid, Levoxyl) tablet 50 mcg 50 mcg Oral qAM AC Shahram Jacobo MD 50 mcg at 02/25/24 1015 naloxone (Narcan) injection 0.4 mg 0.4 mg IntraVENous q5 min PRN Shahram Jacobo MD nicotine polacrilex (Nicorette) gum 2 mg 2 mg Mouth/Throat q3h PRN Shahram Jacobo MD ondansetron ODT (Zofran-ODT) disintegrating tablet 4 mg 4 mg Oral q8h PRN Shahram Jacobo MD Or ondansetron (Zofran) injection 4 mg 4 mg IntraVENous q6h PRN Shahram Jacobo MD oxyCODONE (Roxicodone) immediate release tablet 5 mg 5 mg Oral q6h PRN Shahram Jacobo MD piperacillin-tazobactam (Zosyn) IVPB 3,375 mg 3,375 mg IntraVENous q8h Shahram Jacobo MD 12.5 mL/hrat 02/25/24 1223 3,375 mg at 02/25/24 1223 polyethylene glycol (PEG) 3350 (Miralax) packet 17 g 17 g Oral Daily PRN Shahram Jacobo MD QUEtiapine (SEROquel) tablet 12.5 mg 12.5 mg Oral TID PRN Shahram Jacobo MD 12.5 mg at 02/25/24 1143 QUEtiapine XR (SEROquel XR) 24 hr tablet 300 mg 300 mg Oral Nightly Shahram Jacobo MD traZODone (Desyrel) tablet 50 mg 50 mg Oral Nightly PRN Shahram Jacobo MD vancomycin (Vancocin) 1750 mg in NS 500 mL IVPB (compounded premix) 1,750 mg IntraVENous q12h LOU Hanson Allergies: Allergies Allergen Reactions Haldol [Haloperidol] Metformin Risperdal [Risperidone] Social History: Social History Socioeconomic History Marital status: Single Spouse name: Not on file Number of children: Not on file Years of education: Not on file Highest education level: Not on file Occupational History Not on file Tobacco Use Smoking status: Every Day Smokeless tobacco: Not on file Substance and Sexual Activity Alcohol use: Yes Drug use: Yes Types: Marijuana Sexual activity: Not on file Other Topics Concern Not on file Social History Narrative Not on file Social Determinants of Health Financial Resource Strain: Not on file Food Insecurity: Not on file Transportation Needs: Not on file Physical Activity: Not on file Stress: Not on file Social Connections: Not on file Intimate Partner Violence: Unknown (02/25/2024) Humiliation, Afraid, Rape, and Kick questionnaire Fear of Current or Ex-Partner: No Emotionally Abused: No Physically Abused: Not on file Sexually Abused: Not on file Housing Stability: Not on file Family History: Family History Problem Relation Name Age of Onset Bipolar disorder Other Review of Systems: Review of Systems Constitutional: Positive for chills and fever. Negative for activity change and appetite change. HENT: Negative for congestion, ear discharge, ear pain, facial swelling, hearing loss, sore throat,trouble swallowing and voice change. Eyes: Negative for photophobia, pain, discharge, redness, itching and visual disturbance. Respiratory: Negative for apnea, cough, choking, shortness of breath and wheezing. Cardiovascular: Negative for chest pain and leg swelling. Gastrointestinal: Negative for abdominal distention, abdominal pain, constipation, diarrhea, nauseaand vomiting. Genitourinary: Negative for difficulty urinating, dysuria, flank pain, frequency, hematuria and urgency. Musculoskeletal: Positive for arthralgias and joint swelling. Negative for gait problem, neck pain and neck stiffness. Skin: Positive for wound. Negative for color change and rash. Neurological: Negative for dizziness, speech difficulty, weakness, light- headedness, numbness and headaches. Psychiatric/Behavioral: Positive for behavioral problems. Negative for agitation and confusion. Vitals: Patient Vitals for the past 24 hrs: BP Temp Temp src Pulse Resp SpO2 Height Weight 02/25/24 1020 141/95 36.4 C (97.5 F) Temporal 73 16 99 % -- -- 02/25/24 1000 -- -- -- -- -- -- 1.727 m (5' 8") -- 02/25/24 0940 -- -- -- 77 22 99 % -- -- 02/25/24 0930 (!) 158/87 -- -- 70 19 96 % -- -- 02/25/24 0915 (!) 166/90 -- -- 74 19 98 % -- -- 02/25/24 0900 (!) 148/94 36.2 C (97.1 F) Temporal 78 16 100 % -- -- 02/25/24 0719 124/86 36.7 C (98.1 F) -- 86 18 -- -- -- 02/25/24 0556 127/79 -- -- 70 18 98 % -- -- 02/25/24 0514 -- -- -- -- -- -- -- 101 kg (222 lb) 02/25/24 0406 120/86 36.8 C (98.2 F) Oral 74 18 97 % -- -- Physical Exam: Physical Exam Vitals and nursing note reviewed. Constitutional: General: He is not in acute distress. Appearance: He is normal weight. He is ill-appearing. He is not toxic-appearing or diaphoretic. Comments: Pt sitting up in bed, NAD. Responds to most questions but is slow to respond. Pt is restless. HENT: Head: Normocephalic and atraumatic. Right Ear: External ear normal. Left Ear: External ear normal. Nose: Nose normal. Mouth/Throat: Mouth: Mucous membranes are moist. Pharynx: Oropharynx is clear. No oropharyngeal exudate. Eyes: General: Right eye: No discharge. Left eye: No discharge. Extraocular Movements: Extraocular movements intact. Conjunctiva/sclera: Conjunctivae normal. Pupils: Pupils are equal, round, and reactive to light. Cardiovascular: Rate and Rhythm: Normal rate and regular rhythm. Pulses: Normal pulses. Heart sounds: Normal heart sounds. No murmur heard. Pulmonary: Effort: Pulmonary effort is normal. No respiratory distress. Breath sounds: Normal breath sounds. No wheezing or rhonchi. Comments: Unlabored effort on room air Abdominal: General: Abdomen is flat. Bowel sounds are normal. There is no distension. Palpations: Abdomen is soft. Tenderness: There is no abdominal tenderness. There is no guarding. Musculoskeletal: Cervical back: Normal range of motion. No rigidity. Skin: General: Skin is warm and dry. Coloration: Skin is not jaundiced. Findings: Lesion present. No erythema or rash. Comments: L hand wrapped in post op dressing. Media photos of L hand reviewed. Neurological: Mental Status: He is alert. Sensory: Sensory deficit present. Motor: No weakness. Psychiatric: Mood and Affect: Mood normal. Behavior: Behavior normal. Thought Content: Thought content normal. Labs: Recent Labs 02/25/24 0441 NA 134* K 3.7 CL 102 CO2 25 BUN 16 CREATININE 0.74 GLUCOSE 110* CALCIUM 9.3 Recent Labs 02/25/24 0441 WBC 10.2 HGB 13.7 HCT 41.3 PLT 270 LYMPHOPCT 26.4 MONOPCT 6.4 BASOPCT 0.3 NEUTROABS 6.6 Micro: No results for input(s): "COVID19" in the last 72 hours. 02/24 L finger fungal cx collected 01/25 L finger cx collected Lines: PIV Radiography/Echo/Other: 02/24 XR hand L The bone mineralization is normal. There is no acute fracture. There is no radiopaque foreign body.The joint spaces appear maintained. There is a thin ossification at the third digit DIP. There is soft tissue swelling of the third digit. 02/24 CXR No radiographic acute cardiopulmonary process. 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 Maintain pip tazo. Blood cx ordered Follow up intra op cx, optimize as able Tdap booster ordered (last known Tdap in 2017) Psych consulted ID to follow Total time 80 minutes on this day of encounter includes counseling, coordinating plan of care, record and documentation review before and after visit including documentation and time not explicitly included on EMR time stamp for accounting for open encounter. KANDIS Holt, KORI [facility] [id number] History and physical note* Isaac Marcos, DO - 02/25/2024 11:30 AM EDT Images from the original note were not included. Attending History and Physical Admit Date: 02/25/2024 PCP: No primary care provider on file. CHIEF COMPLAINT: L hand wound/pain/swelling Reason for Admission: L hand tenosynovitis History Obtained From: patient, EMR HISTORY OF PRESENT ILLNESS: Talia is a 43 y.o. male with past medical history below who presents with chief complaint listed above. Pt is a poor overall historian and has changed his story on multiple occasions so history obtained via ED documentation and EMR. Per ED, pt was seen at [facility] ED after putting his hand threw a windshield (fall vs punch?) about a week ago and had progressively worsening hand pain, swelling and purulent drainage and unable to make a fist. Upon arrival here, XR hand with soft tissue swelling, but no acute osseous process. Orthopedics evaluated patient and decided to take to the OR today. Cultures obtained and pt started on empiric abx. ID consulted. Labs otherwise unremarkable. Pt admitted for further evaluation and management. Past Medical History: Past Medical History: Diagnosis Date Asthma Bipolar disorder (HCC) Diabetes mellitus (HCC) ETOH abuse HTN (hypertension) Hyperlipidemia MAXIMO on CPAP PTSD (post-traumatic stress disorder) 2/2 witness suicide as a child T2DM (type 2 diabetes mellitus) (HCC) Tobacco abuse Past Surgical History: Past Surgical History: Procedure Laterality Date FRACTURE SURGERY Right leg, s/p bone graft OTHER SURGICAL HISTORY 02/25/2024 IRRIGATION AND DEBRIDEMENT HAND AND LONG FINGER METACARPOPHALANGEAL JOINT - Left Social History: Social History Socioeconomic History Marital status: Single Spouse name: Not on file Number of children: Not on file Years of education: Not on file Highest education level: Not on file Occupational History Not on file Tobacco Use Smoking status: Every Day Smokeless tobacco: Not on file Substance and Sexual Activity Alcohol use: Yes Drug use: Yes Types: Marijuana Sexual activity: Not on file Other Topics Concern Not on file Social History Narrative Not on file Social Determinants of Health Financial Resource Strain: Not on file Food Insecurity: Not on file Transportation Needs: Not on file Physical Activity: Not on file Stress: Not on file Social Connections: Not on file Intimate Partner Violence: Unknown (02/25/2024) Humiliation, Afraid, Rape, and Kick questionnaire Fear of Current or Ex-Partner: No Emotionally Abused: No Physically Abused: Not on file Sexually Abused: Not on file Housing Stability: Not on file Family History: Family History Problem Relation Name Age of Onset Bipolar disorder Other Medications Prior to Admission: No current facility-administered medications on file prior to encounter. No current outpatient medications on file prior to encounter. Allergies: Allergies Allergen Reactions Haldol [Haloperidol] Metformin Risperdal [Risperidone] REVIEW OF SYSTEMS: 12 point ROS negative unless otherwise stated in the H&P Vitals: BP 141/95 Pulse 73 Temp 36.4 C (97.5 F) (Temporal) Resp 16 Ht 5' 8" (1.727 m) Wt 222 lb (101 kg) SpO2 99% BMI 33.75 kg/m BMI Classification: Obese (BMI 30.0-39.9) Pulse Ox: SpO2 Av.1 % Min: 96 % Max: 100 % Supplemental O2: O2 Flow Rate (L/min): 6 L/min PHYSICAL EXAM: GENERAL: Lying in bed comfortably, confused, difficult to direct, flight of thought HEENT: normocephalic, non-traumatic, MMM NECK: supple, trachea midline HEART: RRR, normal S1 and S2 LUNGS: non labored ABD: soft, non-tender, no rebound, no guarding, +BS MSK: L hand/wrist in surgical KELLE dressing SKIN: warm, dry PSYCH: anxious and distracted affect DATA: CBC: Recent Labs 02/25/24 0441 WBC 10.2 RBC 5.05 HGB 13.7 HCT 41.3 MCV 81.8 RDW 14.0 PLT 270 BMP: Recent Labs 02/25/24 0441 NA 134* K 3.7 CL 102 CO2 25 BUN 16 CREATININE 0.74 GLUCOSE 110* CALCIUM 9.3 ANIONGAP 7 LIVER PROFILE:No results for input(s): "AST", "ALT", "BILITOT", "ALKPHOS", "PROT" in the last 72 hours. No lab exists for component: "LABALBU" PT/INR: Recent Labs 02/25/24 0441 PROTIME 10.9 INR 1.0 CARDIAC ENZYMES: No results for input(s): "TROPONINI" in the last 72 hours. Procalcitonin: No results found for: "PROCAL" Urine Culture: No results found for this or any previous visit. COVID-19 PCR: No results for input(s): "COVID19" in the last 72 hours. I reviewed: [x] laboratory results [x] radiographic results At the time of today's encounter. Pt was advised of the results. Data: Assessment Discussed management with the ED provider and agree with hospitalization. Acute, acute on chronic, unstable/uncontrolled chronic problems/diagnoses: L hand tenosynovitis - ortho consulted and taking to OR today. Pain/nausea control. Cultures obtained. Empiric abx. ID consulted. Wound care Hx of schizoaffective/bipolar with hallucinations - psych consulted as pt hallucinating and with flight of thought Unsteady gait- pt reports difficulty ambulating and states this is new. Feels loss of coordination.Pt/OT. No focal deficits Stable chronic problems affecting care, new non-acute diagnoses: Bipolar/PTSD/schizoaffective DM with hyperglycemia Hypothyroid HLD Plan As a result of the above findings & factors, the following mgmt was pursued: - cont meds as ordered - wound care, ortho recs - follow cultures and ID abx recs - psych consulted as pt hallucinating and possible hurt hand during manic episode - am labs, replace lytes prn - PT/OT/CM/SW - delirium precautions: increase activity and limit nighttime disturbances - DVT prophylaxis: encourage ambulation Advance Directive: Full Code Anticipated Discharge - Date - 02/27? - Location - TBD - possible psych vs SNF? - Pending the following - surgical plan, wound care, abx recs, PT/OT, psych evaluation 75 minutes spent in chart review, lab and radiology interpretation, patient eval, counseling and treatment plan. Extended Emergency Contact Information Primary Emergency Contact: ArsenJaci Mobile Relation: Legal Guardian Secondary Emergency Contact: Jeny Ruby Relation: Mother [employer] Talia Tung : 1980 Primary Care Physician: No primary care provider on file. The patient and/or family/surrogate voluntarily agreed to participate in ACP services. Patient s cognitive capacity: AAOx2 Code Status: [X] [FULL CODE - Continue all advanced life support: CPR,intubation,invasive procedures] [_] [DNR-CCA - DO NOT do CPR, intubation] [_] [DNR-LIVE IN COMPANION - Comfort care only] [_] DNR form [was/was not] signed Total time spent: 5 minutes were spent discussing the patient's resuscitation status, advance care planning, and end of life care, with patient and/or family/surrogate. Isaac Marcos DO Division of Hospitalist Medicine [facility] [id number] History and physical note* Isaac Marcos DO - 02/25/2024 11:30 AM EDT Images from the original note were not included. Attending History and Physical Admit Date: 02/25/2024 PCP: No primary care provider on file. CHIEF COMPLAINT: L hand wound/pain/swelling Reason for Admission: L hand tenosynovitis History Obtained From: patient, EMR HISTORY OF PRESENT ILLNESS: Talia is a 43 y.o. male with past medical history below who presents with chief complaint listed above. Pt is a poor overall historian and has changed his story on multiple occasions so history obtained via ED documentation and EMR. Per ED, pt was seen at [facility] ED after putting his hand threw a windshield (fall vs punch?) about a week ago and had progressively worsening hand pain, swelling and purulent drainage and unable to make a fist. Upon arrival here, XR hand with soft tissue swelling, but no acute osseous process. Orthopedics evaluated patient and decided to take to the OR today. Cultures obtained and pt started on empiric abx. ID consulted. Labs otherwise unremarkable. Pt admitted for further evaluation and management. Past Medical History: Past Medical History: Diagnosis Date Asthma Bipolar disorder (HCC) Diabetes mellitus (HCC) ETOH abuse HTN (hypertension) Hyperlipidemia MAXIMO on CPAP PTSD (post-traumatic stress disorder) 2/2 witness suicide as a child T2DM (type 2 diabetes mellitus) ([facility]) Tobacco abuse Past Surgical History: Past Surgical History: Procedure Laterality Date FRACTURE SURGERY Right leg, s/p bone graft OTHER SURGICAL HISTORY 02/25/2024 IRRIGATION AND DEBRIDEMENT HAND AND LONG FINGER METACARPOPHALANGEAL JOINT - Left Social History: Social History Socioeconomic History Marital status: Single Spouse name: Not on file Number of children: Not on file Years of education: Not on file Highest education level: Not on file Occupational History Not on file Tobacco Use Smoking status: Every Day Smokeless tobacco: Not on file Substance and Sexual Activity Alcohol use: Yes Drug use: Yes Types: Marijuana Sexual activity: Not on file Other Topics Concern Not on file Social History Narrative Not on file Social Determinants of Health Financial Resource Strain: Not on file Food Insecurity: Not on file Transportation Needs: Not on file Physical Activity: Not on file Stress: Not on file Social Connections: Not on file Intimate Partner Violence: Unknown (02/25/2024) Humiliation, Afraid, Rape, and Kick questionnaire Fear of Current or Ex-Partner: No Emotionally Abused: No Physically Abused: Not on file Sexually Abused: Not on file Housing Stability: Not on file Family History: Family History Problem Relation Name Age of Onset Bipolar disorder Other Medications Prior to Admission: No current facility-administered medications on file prior to encounter. No current outpatient medications on file prior to encounter. Allergies: Allergies Allergen Reactions Haldol [Haloperidol] Metformin Risperdal [Risperidone] REVIEW OF SYSTEMS: 12 point ROS negative unless otherwise stated in the H&P Vitals: BP 141/95 Pulse 73 Temp 36.4 C (97.5 F) (Temporal) Resp 16 Ht 5' 8" (1.727 m) Wt 222 lb (101 kg) SpO2 99% BMI 33.75 kg/m BMI Classification: Obese (BMI 30.0-39.9) Pulse Ox: SpO2 Av.1 % Min: 96 % Max: 100 % Supplemental O2: O2 Flow Rate (L/min): 6 L/min PHYSICAL EXAM: GENERAL: Lying in bed comfortably, confused, difficult to direct, flight of thought HEENT: normocephalic, non-traumatic, MMM NECK: supple, trachea midline HEART: RRR, normal S1 and S2 LUNGS: non labored ABD: soft, non-tender, no rebound, no guarding, +BS MSK: L hand/wrist in surgical KELLE dressing SKIN: warm, dry PSYCH: anxious and distracted affect DATA: CBC: Recent Labs 02/25/24440 WBC 10.2 RBC 5.05 HGB 13.7 HCT 41.3 MCV 81.8 RDW 14.0 PLT 270 BMP: Recent Labs 02/25/24440 NA 134* K 3.7 CL 102 CO2 25 BUN 16 CREATININE 0.74 GLUCOSE 110* CALCIUM 9.3 ANIONGAP 7 LIVER PROFILE:No results for input(s): "AST", "ALT", "BILITOT", "ALKPHOS", "PROT" in the last 72 hours. No lab exists for component: "LABALBU" PT/INR: Recent Labs 02/25/24440 PROTIME 10.9 INR 1.0 CARDIAC ENZYMES: No results for input(s): "TROPONINI" in the last 72 hours. Procalcitonin: No results found for: "PROCAL" Urine Culture: No results found for this or any previous visit. COVID-19 PCR: No results for input(s): "COVID19" in the last 72 hours. I reviewed: [x] laboratory results [x] radiographic results At the time of today's encounter. Pt was advised of the results. Data: Assessment Discussed management with the ED provider and agree with hospitalization. Acute, acute on chronic, unstable/uncontrolled chronic problems/diagnoses: L hand tenosynovitis - ortho consulted and taking to OR today. Pain/nausea control. Cultures obtained. Empiric abx. ID consulted. Wound care Hx of schizoaffective/bipolar with hallucinations - psych consulted as pt hallucinating and with flight of thought Unsteady gait- pt reports difficulty ambulating and states this is new. Feels loss of coordination.Pt/OT. No focal deficits Stable chronic problems affecting care, new non-acute diagnoses: Bipolar/PTSD/schizoaffective DM with hyperglycemia Hypothyroid HLD Plan As a result of the above findings & factors, the following mgmt was pursued: - cont meds as ordered - wound care, ortho recs - follow cultures and ID abx recs - psych consulted as pt hallucinating and possible hurt hand during manic episode - am labs, replace lytes prn - PT/OT/CM/SW - delirium precautions: increase activity and limit nighttime disturbances - DVT prophylaxis: encourage ambulation Advance Directive: Full Code Anticipated Discharge - Date - 02/27? - Location - TBD - possible psych vs SNF? - Pending the following - surgical plan, wound care, abx recs, PT/OT, psych evaluation 75 minutes spent in chart review, lab and radiology interpretation, patient eval, counseling and treatment plan. Extended Emergency Contact Information Primary Emergency Contact: Jaci Leger Mobile Relation: Legal Guardian Secondary Emergency Contact: Jeny Ruby Relation: Mother [employer] Talia Ruby : 1980 Primary Care Physician: No primary care provider on file. The patient and/or family/surrogate voluntarily agreed to participate in ACP services. Patient s cognitive capacity: AAOx2 Code Status: [X] [FULL CODE - Continue all advanced life support: CPR,intubation,invasive procedures] [_] [DNR-CCA - DO NOT do CPR, intubation] [_] [DNR-LIVE IN COMPANION - Comfort care only] [_] DNR form [was/was not] signed Total time spent: 5 minutes were spent discussing the patient's resuscitation status, advance care planning, and end of life care, with patient and/or family/surrogate. Isaac Marcos DO Division of Hospitalist Medicine [facility] documented in this [facility]05-29-2024 Hospital Discharge instructions* Discharge Instructions* Lilibeth Eaton MD - 02/25/2024 9:13 AM EDT Hand Infection Discharge Instruction Soaks -Continue your soaks as directed in hospital. -Use unscented antibacterial soap and warm, clean water (i.e. Leann, Dial, Ajax [facility] soap works well) -Soak 3 times per day for 20 minutes each time. -Move your hand around in the water and move your fingers as much as possible while soaking. -After each soak, pat your hand dry, and cover your wound with dry sterile gauze, splint, and an kelle wrap as directed while you were in the hospital. -Continue soaks until you see your hand surgeon or until your wound is completely healed with no pain and no drainage. Pain -Keep your hand iced and elevated to the level of your heart at all times until follow up -Take your narcotic only as needed for pain. Decrease your use of this medication as tolerated and transition to tylenol/ibuprofen. -Do not exceed 3 grams of tylenol per day from all sources. Antibiotics -Take your antibiotics as prescribed. -Do not discontinue your antibiotics early, even if the infection appears healed unless directed byyour doctor. Your infection can come back if you stop antibiotics too soon. Precautions Call for a temperature over 101 F. Take the pain medications as needed for pain. Pain pills can cause constipation. Use over the counter stool softeners like Colace to avoid constipation. If Colace is not effective use a gentle over the counter laxative such as Miralax Please refer to your medication sheet for more information regarding any prescriptions you have been given to take after surgery. Follow up office visit Dr. Fischer would like see you within 1 week after discharge from the hospital. Please call the office to schedule an appointment * Discharge Instr - Activity* Randy Drummond MD - 03/02/2024 8:09 AM EDT NWB L hand, ok to bear weight through the forearm/elbow Activity as tolerated with assistance * Discharge Instr - Diet* Randy Drummond MD - 03/02/2024 8:10 AM EDT ADA 1800 diet * Discharge Instr - MINNA* Bernadette Yost RN - 03/01/2024 8:18 AM EDT Continuity of Care Form Patient Name: Talia Ruby : 1980 Admit date: 02/25/2024 Discharge date: 03/02/2024 Code Status Order: Full Code Advance Directives: N Admitting Physician: Phill Mc MD PCP: No primary care provider on file. Discharging Nurse: Jing Yost RN Discharging Hospital Unit/Room#: H-5120/H-5120 A Discharging Unit Emergency Contact: Extended Emergency Contact Information Primary Emergency Contact: Jaci Leger Mobile Relation: Concessionist Secondary Emergency Contact: Jeny Ruby Relation: Mother Past Surgical History: Past Surgical History: Procedure Laterality Date FRACTURE SURGERY Right leg, s/p bone graft OTHER SURGICAL HISTORY 02/25/2024 IRRIGATION AND DEBRIDEMENT HAND AND LONG FINGER METACARPOPHALANGEAL JOINT - Left Immunization History: Immunization History Administered Date(s) Administered Covid-19, Pfizer Bivalent Booster, (Age 12y+), Im, 30 Mcg/0e 10/21/2022 Moderna SARS-CoV-2 Vaccination 02/22/2021, 03/22/2021 Pfizer SARS-CoV-2 Vaccination 09/19/2021 Pneumococcal Polysaccharide PPSV23 04/13/2015 Tdap 12/12/2016, 02/25/2024 Active Problems: Medical Problems Problem List * (Principal) Pyogenic arthritis of left hand (HCC) Pyogenic arthritis of left hand, due to unspecified organism (HCC) Tobacco abuse Acute encephalopathy Hyperlipidemia HTN (hypertension) T2DM (type 2 diabetes mellitus) (HCC) Bipolar 1 disorder (HCC) Overview Signed 07/13/2022 9:04 PM by Interface, Incoming Problems- [facility] Conversion Overview: [facility], off medication since 2005, most recently Depakote. Obstructive apnea Morbid obesity (HCC) Controlled diabetes mellitus type II without complication (HCC) Acute respiratory failure with hypoxia and hypercapnia (HCC) ETOH abuse Isolation/Infection: No active isolations No active infections Nurse Assessment: Last Vital Signs: BP 129/70 (BP Location: Right arm, Patient Position: Lying) Pulse 62 Temp 36.6 C (97.8 F) (Temporal) Resp 14 Ht 1.727 m (5' 8") Wt 101 kg (222 lb) SpO2 100% BMI 33.75 kg/m Last documented pain score (0-10 scale): Last Weight: Wt Readings from Last 1 Encounters: 02/25/24 101 kg (222 lb) Mental Status: MINNA Patient Mental Status: oriented and alert IV Access: MINNA IV Access: PICC - site: upper arm right, condition {iv condition:799936::"patent","no redness"}, insertion date: 03/01/2024 Nursing Mobility/ADLs: Walking Minimal assistance Transfer Minimal assistance Bathing Minimal assistance Dressing Minimal assistance Toileting Minimal assistance Feeding Minimal assistance Starter Mechanic Minimal assistance Med Delivery yes Wound Care Documentation and Therapy: Wound/Incision 02/25/24 Incision Hand Left;Dorsal (Active) Site Assessment Red;Swelling 02/29/242307 Rashida-Wound Assessment Intact 02/27/24 1408 Odor None 02/29/242307 Drainage Amount None 02/29/242307 Treatments Cleansed;Site care 02/29/242307 Primary Dressing Adaptic;Gauze;Elastic bandage wrap (KELLE) 02/29/242307 Dressing Status New dressing;Clean, dry & intact 02/29/242307 Number of days: 4 Elimination: Continence: Bowel: yes Bladder: yes Urinary Catheter: None Colostomy/Ileostomy/Ileal Conduit: None Date of Last BM: 03/02/2024 Intake/Output Summary (Last 24 hours) at 03/01/2024 0812 Last data filed at 02/29/2024 1555 Gross per 24 hour Intake 1000 ml Output -- Net 1000 ml I/O last 3 completed shifts: In: 1000 (9.9 mL/kg) [P.O.:1000] Out: 725 (7.2 mL/kg) [Urine:725 (0.2 mL/kg/hr)] Weight: 100.7 kg Safety Concerns: none Impairments/Disabilities: RLE Deformity-NWB Nutrition Therapy: Current Nutrition Therapy: Oral diet: carb control 4 carbs/meal (1800kcals/day) Routes of Feeding: oral Liquids: thin liquids Daily Fluid Restriction: no Last Modified Barium Swallow with Video (Video Swallowing Test): not done Treatments at the Time of Hospital Discharge: Respiratory Treatments: no Oxygen Therapy: is not on home oxygen therapy. Ventilator: No ventilator support Rehab Therapies: physical therapy and occupational therapy Weight Bearing Status/Restrictions: NWB RLE, NWB LUE Other Medical Equipment (for information only, NOT a DME order): {Assistive Devices DME:72102} Other Treatments: no Patient's personal belongings (please select all that are sent with patient): none RN SIGNATURE: MANAGEMENT/SOCIAL WORK SECTION Inpatient Status Date: Readmission Risk Assessment Score: @READMISSIONRISKDETAILS@ Discharging to Facility/ Agency Name: [facility] Address: [address] [place] [address], [place] [address] Fax: Dialysis Facility (if applicable) Name: Address: Dialysis Schedule: Phone: Fax: Diabetic Educator/Armor Reconnaissance Specialist signature: ICIAN SECTION Prognosis: good Condition at Discharge: stable Rehab Potential (if transferring to Rehab): good Recommended Labs or Other Treatments After Discharge: CBC, CMP panel, ESR weekly till IV antibioticis completed Discontinue PICC line after IV antibiotic is completed Physician Certification: I certify the above information and transfer of Talia Ruby is necessary for the continuing treatment of the diagnosis listed and that he requires fdc facilityfor less than 30 days. Update Admission H&P: No change in H&P PHYSICIAN SIGNATURE: documented in this [facility]05-29-2024 Note* Op Note - Micha Fischer MD - 02/25/2024 7:32 AM EDT OPERATIVE NOTE DATE/TIME OF SURGERY: February 25, 2024 Patient Name: Talia Ruby: INDICATION FOR SURGERY: This is a 43-year-old male who was transferred from an outside hospital. Hestated approxi-1 week ago he put his left hand through a glass window and suffered a laceration over the left long finger MP joint. In the past several days he has had increasing pain, swelling and now drainage. His hand is swollen and he has an extensor lag. 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 The patient was then seen and examined and he has a open wound consistent with a traumatic arthrotomy and infection of the MP joint. He also appears to have an extensor tendon injury. Treatment options were explained to him and he is willing to proceed with surgical intervention. He understands that he will need immobilization and rehabilitation. He could need further surgery. He may never get all of his motion back and most likely the wound will be left open and he will need further wound careand IV antibiotics. General risks of surgery including anesthesia, reaction of medicine including , unsightly skin incision, continued or chronic pain, inability to return to previous functional capacity either at home or at work, risk of chronic pain syndrome and chronic infection were reviewed. He stated he understood these risks and wished to proceed no guarantees were stated or implied PREOPERATIVE DIAGNOSES: 1. Infection Left Long MPJ 2. Lacerated Extensor tendon left long finger POSTOPERATIVE DIAGNOSES: 1. Infection Left Long MPJ 2. Lacerated Extensor tendon left long finger PROCEDURE: 1. Arthotomy and Synovectomy Left Long MPJ 2. Repair Extensor Tendon Left Long Finger 3. I & D Left 2nd and 3rd Web Spaces SURGEON: Mciha Fischer MD MIRROR POLISHER: Shahram Jacobo MD ANESTHESIA: General ESTIMATED BLOOD LOSS: 4 CC URINE OUTPUT: Per Anesthesia FINDINGS: See Op Note SPECIMEN: Cultures COMPLICATIONS: None TECHNIQUE: After the patient was examined in the preop area and the correct extremity was identified and marked, the patient was taken to the operating room where a general anesthesia was then administered. His arm was then prepped and draped in usual sterile fashion with Betadine. A timeout was performed and agreed to by all operating room personnel present. The arm was then Esmarched and the tourniquet inflated to 250 mmHg. We extended his open wound overthe MP joint both proximally and distally in a lazy S type fashion. Dissection was then carried down to the extensor tendon which we could see was obviously damaged and was fibrotic and frayed over the MP joint. The MP joint had a traumatic arthrotomy. There was chronic fibrinous and infected looking tissue. We not only cultured this with a swab but sent tissue as well. We then performed an I&D and debrided this fibrotic, infected looking tissue all along the course of the extensor tendon. There was a complete laceration of the extensor tendon near the MP joint level. Next we explored both the second and the third web spaces to ensure that there was no evidence of acollar-button abscess and none was found. We then explored the MP joint and did not find any foreign bodies. We did a dorsal capsulectomy andsynovectomy. Overall the articular cartilage looked normal on both sides of the joint. We then copiously irrigated the joint and the wound with 3 L of saline. Next, we repaired the extensor tendon with 3-0 nylon suture. The tourniquet was then deflated and hemostasis achieved. We loosely closed his incision leaving the original portion of the open wound intact. We then packed this area into the joint and into the webspaces with quarter inch iodoform gauze. Dressing consisted of Adaptic, bacitracin ointment, fluffy hand gauze, Kerlix and a resting hand splint. He was awakened and taken to the recovery area in satisfactory condition. IMPLANTED DEVICES: Packing X 1 IMAGES: None MICHA FISCHER MD [id number] Note* Brief Op Note - Shahram Jacobo MD - 02/25/2024 7:32 AM EDT Date: 02/25/2024 Location: [facility] OR Name: Talia Ruby, : 1980, Diagnosis Pre-op Diagnosis * Pyogenic arthritis of left hand, due to unspecified organism (HCC) [M00.9] Post-op Diagnosis * Pyogenic arthritis of left hand, due to unspecified organism (HCC) [M00.9] Procedures IRRIGATION AND DEBRIDEMENT HAND AND LONG FINGER METACARPOPHALANGEAL JOINT 47332 - SD DEBRIDEMENT BONE 1ST 20 SQ CM/< Extensor tendon repair L LF Surgeons * Micha Fischer - Primary Procedure Summary Anesthesia: Choice ASA: III Estimated Blood Loss: 2 mL Drains: * None in log * Specimens ID Source Type Tests Collected By Collected At [facility]? Priority Lab ID A Finger, Left Swab FUNGAL CULTURE AEROBIC AND ANAEROBIC CULTURE WITH STAIN Micha Fischer MD 02/25/24 0808 [id number], [id number], [id number] Description: LEFT LONG FINGER Staff: Board Writer: Micha Miranda RN Scrub Person: Natividad Allisontriston Findings: ruptured extensor tendon, joint arthrotomy, gaudencio purulence with necrotic tissue, cartilage appeared healthy Complications: None; patient tolerated the procedure well. Specimens Collected: Order Name Source Comment Collection Info Order Time FUNGAL CULTURE Finger, Left Collected By: Micha Fischer MD 02/25/2024 8:09 AM AEROBIC AND ANAEROBIC CULTURE WITH STAIN Finger, Left Collected By: Micha Fischer MD 02/25/2024 8:09 AM HEMOGLOBIN A1C Blood, Venous If not done within the last 3 mos Collected By: Maurice Martinez RN 02/25/2024 7:05 AM Wound Class: Class IV: Dirty Blood Products: None Prophylactic Antibiotics: Procedure appropriate prophylactic antibiotic(s) given within 1 hour of surgical incision (two hours if receiving Vancomycin or flouroquinolone) Postop plan: NWB ANGELICA No plan for RLE while here. Patient has BKA set up with outside hospital Keep splint c/d/I Start soaks 02/25 with hibiclens+water. Perform TID and repack after each soak. Resplint after each soak Abx per med/ID Ice/elevate Cx p Recommend psychiatry c/s while in house to optimize medications Medical management/pain control per primary Ortho to follow peripherally. 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 Shahram Jacobo MD Orthopaedic Surgery PGY-4 *[id number] [employer] Work Phone: 1(257) 796-569705-29-2024 Note* Op Note - Micha Fischer MD - 02/25/2024 7:32 AM EDT OPERATIVE NOTE DATE/TIME OF SURGERY: February 25, 2024 Patient Name: Talia Ruby: INDICATION FOR SURGERY: This is a 43-year-old male who was transferred from an outside hospital. Hestated approxi-1 week ago he put his left hand through a glass window and suffered a laceration over the left long finger MP joint. In the past several days he has had increasing pain, swelling and now drainage. His hand is swollen and he has an extensor lag. 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 The patient was then seen and examined and he has a open wound consistent with a traumatic arthrotomy and infection of the MP joint. He also appears to have an extensor tendon injury. Treatment options were explained to him and he is willing to proceed with surgical intervention. He understands that he will need immobilization and rehabilitation. He could need further surgery. He may never get all of his motion back and most likely the wound will be left open and he will need further wound careand IV antibiotics. General risks of surgery including anesthesia, reaction of medicine including , unsightly skin incision, continued or chronic pain, inability to return to previous functional capacity either at home or at work, risk of chronic pain syndrome and chronic infection were reviewed. He stated he understood these risks and wished to proceed no guarantees were stated or implied PREOPERATIVE DIAGNOSES: 1. Infection Left Long MPJ 2. Lacerated Extensor tendon left long finger POSTOPERATIVE DIAGNOSES: 1. Infection Left Long MPJ 2. Lacerated Extensor tendon left long finger PROCEDURE: 1. Arthotomy and Synovectomy Left Long MPJ 2. Repair Extensor Tendon Left Long Finger 3. I & D Left 2nd and 3rd Web Spaces SURGEON: Micha Fischer MD MIRROR POLISHER: Shahram Jacobo MD ANESTHESIA: General ESTIMATED BLOOD LOSS: 4 CC URINE OUTPUT: Per Anesthesia FINDINGS: See Op Note SPECIMEN: Cultures COMPLICATIONS: None TECHNIQUE: After the patient was examined in the preop area and the correct extremity was identified and marked, the patient was taken to the operating room where a general anesthesia was then administered. His arm was then prepped and draped in usual sterile fashion with Betadine. A timeout was performed and agreed to by all operating room personnel present. The arm was then Esmarched and the tourniquet inflated to 250 mmHg. We extended his open wound overthe MP joint both proximally and distally in a lazy S type fashion. Dissection was then carried down to the extensor tendon which we could see was obviously damaged and was fibrotic and frayed over the MP joint. The MP joint had a traumatic arthrotomy. There was chronic fibrinous and infected looking tissue. We not only cultured this with a swab but sent tissue as well. We then performed an I&D and debrided this fibrotic, infected looking tissue all along the course of the extensor tendon. There was a complete laceration of the extensor tendon near the MP joint level. Next we explored both the second and the third web spaces to ensure that there was no evidence of acollar-button abscess and none was found. We then explored the MP joint and did not find any foreign bodies. We did a dorsal capsulectomy andsynovectomy. Overall the articular cartilage looked normal on both sides of the joint. We then copiously irrigated the joint and the wound with 3 L of saline. Next, we repaired the extensor tendon with 3-0 nylon suture. The tourniquet was then deflated and hemostasis achieved. We loosely closed his incision leaving the original portion of the open wound intact. We then packed this area into the joint and into the webspaces with quarter inch iodoform gauze. Dressing consisted of Adaptic, bacitracin ointment, fluffy hand gauze, Kerlix and a resting hand splint. He was awakened and taken to the recovery area in satisfactory condition. IMPLANTED DEVICES: Packing X 1 IMAGES: None MICHA FISCHER MD [facility] [id number] Note* Brief Op Note - Shahram Jacobo MD - 02/25/2024 7:32 AM EDT Date: 02/25/2024 Location: [facility] OR Name: Talia Ruby, : 1980, Diagnosis Pre-op Diagnosis * Pyogenic arthritis of left hand, due to unspecified organism (HCC) [M00.9] Post-op Diagnosis * Pyogenic arthritis of left hand, due to unspecified organism (HCC) [M00.9] Procedures IRRIGATION AND DEBRIDEMENT HAND AND LONG FINGER METACARPOPHALANGEAL JOINT 20949 - SD DEBRIDEMENT BONE 1ST 20 SQ CM/< Extensor tendon repair L LF Surgeons * Micha Fischer - Primary Procedure Summary Anesthesia: Choice ASA: III Estimated Blood Loss: 2 mL Drains: * None in log * Specimens ID Source Type Tests Collected By Collected At Frozen? Priority Lab ID A Finger, Left Swab FUNGAL CULTURE AEROBIC AND ANAEROBIC CULTURE WITH STAIN Micha Fischer MD 02/25/24 0808 [id number], [id number], [id number] Description: LEFT LONG FINGER Staff: Board Writer: Micha Miranda RN Scrub Person: Natividad S Keegantriston Findings: ruptured extensor tendon, joint arthrotomy, gaudencio purulence with necrotic tissue, cartilage appeared healthy Complications: None; patient tolerated the procedure well. Specimens Collected: Order Name Source Comment Collection Info Order Time FUNGAL CULTURE Finger, Left Collected By: Micha Fischer MD 02/25/2024 8:09 AM AEROBIC AND ANAEROBIC CULTURE WITH STAIN Finger, Left Collected By: Micha Fischer MD 02/25/2024 8:09 AM HEMOGLOBIN A1C Blood, Venous If not done within the last 3 mos Collected By: Maurice Martinez RN 02/25/2024 7:05 AM Wound Class: Class IV: Dirty Blood Products: None Prophylactic Antibiotics: Procedure appropriate prophylactic antibiotic(s) given within 1 hour of surgical incision (two hours if receiving Vancomycin or flouroquinolone) Postop plan: NWB ANGELICA No plan for RLE while here. Patient has BKA set up with outside hospital Keep splint c/d/I Start soaks 02/25 with hibiclens+water. Perform TID and repack after each soak. Resplint after each soak Abx per med/ID Ice/elevate Cx p Recommend psychiatry c/s while in house to optimize medications Medical management/pain control per primary Ortho to follow peripherally. 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 Shahram Jacobo MD Orthopaedic Surgery PGY-4 *[id number] [employer] Work Phone: 1([phone]) 693-392405-29-2024 Consult note* Micha Fischer MD - 02/25/2024 4:20 AM EDT Images from the original note were not included. Ortho H&P/Consult Patient: Talia Ruby Date of : 1980 Acct: [id number] PCP: No primary care provider on file. Date of Admission: 02/25/2024 Date of Service: Pt seen/examined on 02/25/2024 Chief Complaint: Left long finger pain History Of Present Illness: This is a 43 y.o. right hand dominant male who presents with approximately 1 week of left long finger pain. Patient cut his hand on glass and treated it conservatively at home. He did not seek medical attention and has not been on antibiotics. He appreciated drainage over the last few days and his pain increased as well as his swelling. He denies previous injuries to the left hand. He denies numbness and tingling in affected extremity. He denies other wounds. Patient has schizophrenia and bipolar disorder Patient endorses smoking, drinking, drug history. The patient is known to the orthopedic surgery service for a remote injury to his right lower extremity with chronic deformity and osteomyelitis currently being managed by [facility]. Reportedly they have plans to complete a BKA in the future with Anselmo Caal MD Patient ambulation status: no difficulty. Antiplatelets/Anticoagulation includes: none. Profession/Employment: Unemployed Past Medical History: Past Medical History: Diagnosis Date Asthma Bipolar disorder (HCC) Diabetes mellitus (HCC) ETOH abuse HTN (hypertension) Hyperlipidemia MAXIMO on CPAP PTSD (post-traumatic stress disorder) 2/2 witness suicide as a child T2DM (type 2 diabetes mellitus) (HCC) Tobacco abuse Past Surgical History: Past Surgical History: Procedure Laterality Date FRACTURE SURGERY Right leg, s/p bone graft Home Medications: Prior to Admission medications Not on File Current Hospital Medications: Current Facility-Administered Medications: HYDROmorphone (Dilaudid) injection 1 mg, 1 mg, IntraVENous, Once, Enzo Mayer MD piperacillin-tazobactam (Zosyn) IVPB 3,375 mg, 3,375 mg, IntraVENous, Once, Enzo Mayer MD vancomycin (Vancocin) 20 mg/kg in sodium chloride 0.9 % 500 mL IVPB, 20 mg/kg, IntraVENous, Once, Enzo Mayer MD No current outpatient medications on file. Allergies: Haldol [haloperidol], Metformin, and Risperdal [risperidone] Social History: Social History Socioeconomic History Marital status: Single Spouse name: Not on file Number of children: Not on file Years of education: Not on file Highest education level: Not on file Occupational History Not on file Tobacco Use Smoking status: Every Day Smokeless tobacco: Not on file Substance and Sexual Activity Alcohol use: Yes Drug use: Yes Types: Marijuana Sexual activity: Not on file Other Topics Concern Not on file Social History Narrative Not on file Social Determinants of Health Financial Resource Strain: Not on file Food Insecurity: Not on file Transportation Needs: Not on file Physical Activity: Not on file Stress: Not on file Social Connections: Not on file Intimate Partner Violence: Not on file Housing Stability: Not on file Family History: Family History Problem Relation Name Age of Onset Bipolar disorder Other Further Family History is noncontributory to this injury. REVIEW OF SYSTEMS: Review of Systems - General ROS: negative for - chills, fatigue, fever, malaise or night sweats Psychological ROS: negative Ophthalmic ROS: negative ENT ROS: negative for - headaches or sore throat Hematological and Lymphatic ROS: negative for - bleeding problems or blood clots Respiratory ROS: no cough, shortness of breath, or wheezing Cardiovascular ROS: no chest pain or dyspnea on exertion Gastrointestinal ROS: negative Musculoskeletal ROS: See HPI Neurological ROS: negative for - bowel and bladder control changes, gait disturbance or numbness/tingling All other systems reviewed and are negative PHYSICAL EXAM: BP 120/86 Pulse 74 Temp 36.8 C (98.2 F) (Oral) Resp 18 SpO2 97% GENERAL APPEARANCE: Awake and oriented x2. No acute distress, except appropriate to injury. MOOD AND AFFECT: Calm appropriate to situation GAIT AND STATION: Patient is in bed and able to ambulate REFLEXES: No clonus or Babinski. COORDINATION and BALANCE: Patient is grossly coordinated Lymphadenopathy: none on examination of the affected extremity(s) Left Upper Extremity: -No obvious pain or deformity to inspection with normal joint range of motion, stability, and muscle strength except noted below -No TTP over clavicle, shoulder, humerus, elbow, forearm, wrist, hand -TTP: long finger -Radial pulse palpable -SILT in radial/median/ ulnar nerve distributions -Motor + AIN/PIN/ulnar nerve functions -No Lymphedema -Skin intact except where noted below -Painless pROM at shoulder/elbow/wrist 2-point discrimination (mm) LEFT Hand Thumb Index Long Ring Small r u r u r u r u r u 5 5 5 5 5 5 5 5 5 5 Median Ulnar 1 cm laceration over the dorsal aspect of the long finger MCPJ. Actively draining purulent material. Short arc range of motion pain to the MCPJ. Volarly, there is minimal tenderness palpation along the flexor tendon sheath. Minimal to no pain with palpation proximally into the proximal hand both volarly and dorsally. No proximal streaking. Wound does probe down to bone at the level of the MCPJ. Unable to completely assess patient extensor tendon due to pain. Patient able to gently extend finger, although incompletely. Labs: CBC: No results found for: "WBC", "RBC", "HEMOGLOBIN" BMP:No results found for: "GLUCOSE", "SODIUM", "POTASSIUM", "CHLORIDE", "CO2", "BUN", "CREATININE","CALCIUM" PT/INR: No results found for: "PT", "INR", "APTT" Type and Screen: No results found for: "RH", "LABANTI" CRP: No results found for: "CRP" ESR: No results found for: "SEDRATE" HgBA1c: No components found for: "LABA1C" The above labs were reviewed by me. Radiology: The below imaging was independently reviewed and interpreted XR: 02/25/2024 Left hand: No acute fractures or dislocations. No obvious evidence of periosteal reaction or cortical erosion. Radiology report reviewed. ASSESSMENT: 43 y.o. male with left long finger MCPJ septic arthritis PLAN: -D/w Dr. Fischer -Plan for OR today on 02/24 for left hand and long finger MCPJ irrigation and debridement -NPO/NAC -Clearance/optimization -Consented -Added -Labs completed -Ice -Nonweightbearing to left upper extremity -Admit to medicine -Pain control and medical management per medicine -Please hold DVT prophylaxis in anticipation of OR -Please comment on clearance in case of OR, page ortho ivr [id number] with clearance status Syd Clement MD Orthopaedic Surgery, PGY-2 02/25/2024 6:20 AM Attending Physician Statement I have examined the patient, including pertinent history and exam findings and discussed these withthe Orthopaedic resident. I agree with the assessment, plan and orders as documented in the chart. Electronically signed by @ARSH@ on @TDNR@ at @NOWNR@ General risks of surgery including anesthesia, reaction to medicine including , unsightly skinincision, continued or chronic pain, inability to return to previous functional capacity either at home or work, risk of chronic pain syndrome, neurovascular injury, infection and the need for further surgery were explained. No guarantees were stated or implied. [employer] Phone: [phone] 243-414105-29-2024 Emergency department Note* Gaby Patel DO - 02/25/2024 4:04 AM EDT Emergency Department Encounter [facility] EMERGENCY DEPT Patient: Talia Ruby : 1980 Date of Evaluation: 02/25/2024 ED Supervising Physician: Gaby Patel DO I personally evaluated Talia Ruby and made/approved the management plan and take responsibilityfor the patient management. This will serve as my Supervisory note and shared attestation. I did perform a substantive portion of the visit including all aspects of the Medical Decision Making. I wore appropriate PPE for the entirety of this encounter. In brief, Talia Ruby is a 43 y.o. that presents to the emergency department as transfer from [facility] for orthopedic/hand consultation due to concern for flexor tenosynovitis/hand abscess. Patient states his left hand went through car [employer] approximately 1 week ago. Progressively worsening swelling and purulent drainage from dorsal aspect left third MCP. Limited active range of motion secondary to pain. [id number]-[id number]. Focused exam: BP 120/86 Pulse 74 Temp 36.8 C (98.2 F) (Oral) Resp 18 SpO2 97% L Hand Exam - Inspection: Wound overlying dorsal left third MCP with active purulent drainage. Circumferential erythematous swelling left middle finger held in flexion. Unable to tolerate passive extension at left third MCP joint - ROM: Limited active range of motion left middle finger due to swelling - Motor: Strength 5/5 in bilateral median, ulnar, radial nerve distributions tested in isolation. Intact wrist ext, wrist flexion - Vascular: Pulses 2+ radial; normal capillary refill distal digits; bilateral - Neurologic: Normal sensation to two point discrimination in median, ulnar, radial nerve distributions; bilaterally Brief ED course/MDM: 43-year-old male presenting as transfer from outside hospital with concern for hand abscess/flexor tenosynovitis after wound from punching through a window 1 week ago. Vital signs stable, afebrile. Symptoms treated with IV Dilaudid, IV Zosyn and vancomycin. Preoperative labs ordered. Preoperative chest x-ray ordered. X-ray left hand ordered. Orthopedics consulted. Patient will require admission for continued IV antibiotics and orthopedic washout. ED Medications managed: Medications - No data to display Diagnostics interpreted by me: Xray(s) I personally discussed the patient's management with other clinicians: Admitting team and Data Visualization Developer Orthopedics Total critical care time today provided was at least 15 minutes. This excludes seperately billable procedure. Critical care time provided for flexor tenosynovitis requiring specialty consultation andadmission that required close evaluation and/or intervention with concern for patient decompensation. All diagnostic, treatment, and disposition decisions were made by myself in conjunction with the Resident. I also supervised carrera portions of any procedures performed by the Resident. For all further details of the patient's emergency department visit, please see their documentation. (Comment: Please note this report has been produced using speech recognition software and may contain errors related to that system including errors in grammar, punctuation, and spelling, as well as words and phrases that may be inappropriate. If there are any questions or concerns please feel freeto contact the dictating provider for clarification.) Gaby Patel DO [employer] Gaby Patel DO 02/25/24 0433 * Enzo Mayer MD - 02/25/2024 4:04 AM EDT EMERGENCY DEPARTMENT ENCOUNTER Pt Name: Talia Ruby Birthdate 1980 Date of evaluation: 02/25/2024 ED Provider: Enzo Mayer MD CHIEF COMPLAINT Chief Complaint Patient presents with Hand Injury Pt punched a window a week ago and has an open hand injury on his L hand. Pt is a tx from [place]. Pt received zofran, morphine, zosyn, and vancomycin. Pt has a hx of schizophrenia and has been combative in the past. HISTORY OF PRESENT ILLNESS (Location/Symptom, Timing/Onset, Context/Setting, Quality, Duration, Modifying Factors, Severity) Note limiting factors. I wore appropriate PPE for the entirety of this encounter. HPI Talia Ruby is a 43 y.o. who presents to the emergency department for evaluation of infection inhis hand. Patient states that he put his hand through a windshield and cut it. Endorses severe pain. Denies any fevers sensation changes in the hand tremors or loss of sensation. States he has not been taking any medicines for the pain and went to [place] emergency department today for further care. Patient presents with Nursing Notes were reviewed. Limitations to history: Outside historians: REVIEW OF SYSTEMS Review of Systems All other systems reviewed and are negative. Pertinent positives and negatives as per HPI. PAST MEDICAL HISTORY Past Medical History: Diagnosis Date Asthma Bipolar disorder (HCC) Diabetes mellitus (HCC) ETOH abuse HTN (hypertension) Hyperlipidemia MAXIMO on CPAP PTSD (post-traumatic stress disorder) 2/2 witness suicide as a child T2DM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 vomiting, chestpain, or any unexpected problems, contact your Primary Care Provider. Call [facility] ([phone]) or report to the closest Emergency Room. Call 911 if necessary. 01/23/242140 <Electronically signed by Ajith Mendez DO> Cosigner Signature (if applicable): CC: Dr. Crow Matute MD ~ Signed [facility] Work Phone: [phone] 962-709504-18-2024 Note* Exam Date Time Procedure Performing Provider Status 01/15/24 10:48 AM VL Venous US/Doppler One Leg (for DVT). Auth (Verified) [facility] 04-18-2024 Note ORIGINAL HISTORY: Pain COMPARISON: 17 November 2023 FINDINGS: There are surgical clips in the medial distal leg. There are incompletely healed angulated fractures of the distal tibia and mid fibula, with prominent callus formation. There is diffuse soft tissue swelling. IMPRESSION: Increased angulation at the previously seen tibial and fibular fractures. Increased callus formation. Increased soft tissue swelling. Interpreted by: Denis Recinos MD Preliminary Report By: Denis Recinos MD Electronically signed By Denis Recinos MD Dictated Date: 01/15/2024 9:43:32 AM Prelim Date: 01/15/2024 9:44:48 AM Sign Date: 01/15/2024 9:44:48 AM Ordering Provider: WILBER [facility]04-18-2024 NoteSINUS RHYTHM Compared to ECG at 08/14/2023 20:46:56 Electronic Signature: TYRELL ROWLEY MD 01/15/2024 05:25:30[facility] 04-03-2024 Miscellaneous Notes* Telephone Encounter - Jeremy Barber LPN - 12/31/2023 8:13 AM EDT Received 12/30/2023 from [facility]. Placed in provider's inbox for review. Route to [place] for scanning. [facility]24 NoteHNO ID: [id number] Author: ANSELMO CAAL MD Service: Orthopaedic Surgery Author Type: Physician Type: Progress Notes Filed: 01/01/2024 21:49 Note Text: Documentation Query Based on your medical judgment of the clinical indicators outlined below, please clarify the condition: (Please type X next to your response and sign) Clinical Indicators: Nutrition Assessment: Recommended Malnutrition Diagnosis: Mild Protein-Calorie Malnutrition In the context of: Acute Illness or Injury Based on: Unintentional Weight Loss... ...Care Plan: Continue current diet" BMI 37.50 Please clarify the Patient's Nutritional Status X Mild Protein Calorie Malnutrition based on the above assessment, plan, and treatment Other, please specify [facility] 12-29-2023 NoteHNO ID: [id number] Author: HIRAM SPENCER MD Service: Hospital Medicine Author Type: Physician Type: Progress Notes Filed: 01/07/2024 07:05 Note Text: Documentation Query Based on your medical judgment of the clinical indicators outlined below, please clarify the condition: (Please type X next to your response and sign) Clinical Indicators: 12/28/23 Progress Note Hospital Medicine: Suspected underlying COPD Asthma Tobacco abuse -Duoneb QID prn.Consider discharge on albuterol inhaler q6h prn.Resume Singulair. -Continue nicotine patches, advised smoking cessation -Previously referred for OP PFTs per chart review.Advised following up with PCP for this." Please clarify the status of COPD: x COPD Ruled In COPD Ruled Out Other, [facility]24 NoteHNO ID: [id number] Author: LEYDI EMERY RN Service: Care Management Author Type: Registered Nurse Type: Care Mgt Progress Note Filed: 12/29/2023 16:05 Note Text: CARE MANAGEMENT UTILIZATION REVIEW COMMITTEE PROVIDER LIABLE (Admission Status Discrepancy Review) Admission Date: 12/27/2023 Patient's Initial Order is: Inpatient Date Received: December 29, 2023 Date Reviewed: December 29, 2023 Under the authority of the Utilization Management Committee, the Physician Advisor, Dr. Anselmo Vegas, has reviewed the medical record of the above patient. The following recommendation has been made by the Physician Advisor, based upon the current available medical information as of the date of this determination. The patient is appropriate for: Observation Rationale for this decision: Lack of medical necessity for inpatient admission and less than 2 midnight stay SIGNATURE: Leydi Emery RN PATIENT NAME: Talia Ruby DATE: December 29, 2023 TIME: 4:05 PM Disclaimer: The information in this determination is to be used for utilization management purposes only. The information and recommendation is made pursuant to Medicare Hospital Conditions of Participation (442 CFR Part 482) and is neither a judgment nor an assessment with regard to the appropriateness or quality of the clinical care. Nothing in this document may be used to limit clinical services provided to the above named patient. This form should be used as one part of the process utilized to ensure compliance with [facility] policy regarding Inpatient Admission and Observation Services. The definitions of Inpatient and Observation used in making the determination above are those provided in Medicare Benefit Policy Manual Chapter 1, Section 1 and 10, Chapter 6, Section 20, and the Medicare Claims Processing Manual Chapter 1, Section 50.3 and Chapter 4, Section 290. This recommendation should be considered as only one factor in determining the patient's final level of service along with other pertinent documentation such as the treating physician's order as documented evidence of concurrence.[facility]04-01-2024 NoteHNO ID: [id number] Author: MICHAEL KAMARA RPh Service: Pharmacy Author Type: Pharmacist Type: Plan of Care Filed: 12/29/2023 14:49 Note Text: DISCHARGE MEDICATION REVIEW BY PHARMACY Patient Name: Talia Ruby Account #: Data Unavailable Admission Date: 12/27/2023 Date of Contact: December 29, 2023 Time of Contact: 2:48 PM Medication list was reviewed by a Pharmacist for drug interactions or drug related problems:Yes Below is a summary of pharmacist recommendations discussed with LIP: No Recommendations at this time from Discharge Medication List. Michael Kamara RPh December 29, 2023 2:48 PM Medication List START taking these medications FOLDING WALKER WITH 5" WHEELS 2 wheeled walker oxyCODONE IR 5 mg immediate release tablet Commonly known as: ROXICODONE Take 1 tablet by mouth every 8 hours as needed for pain for up to 5 days. CHANGE how you take these medications divalproex DR 500 mg EC tablet Commonly known as: DEPAKOTE Take 1 tablet by mouth once daily AND 2 tablets daily at bedtime. What changed: See the new instructions. CONTINUE taking these medications acetaminophen 325 mg tablet Commonly known as: TYLENOL Take 2 tablets by mouth every 6 hours as needed. alcohol swabs Commonly known as: ALCOHOL PADS Use as needed two (2) times daily to test blood glucose. Blood Pressure Kit-Extra Large Kit Check blood pressure weekly and as needed, cholecalciferol (Vitamin D3) 1,250 mcg (50,000 unit) Cap capsule Commonly known as: VITAMIN D3 Take 1 capsule by mouth one time a week. FREESTYLE LAYA 3 SENSOR Fernando Generic drug: Blood-Glucose Sensor Apply new sensor every fourteen (14) days to upper arm. gabapentin 300 mg capsule Commonly known as: NEURONTIN hydrOXYzine pamoate 50 mg capsule Commonly known as: VISTARIL * Lancets Test blood sugar(s) two (2) times daily. Dx: Other DM Code E11.9. Insulin: No. levothyroxine 50 mcg tablet Commonly known as: SYNTHROID take 1 tablet by mouth once daily on an empty stomach multivitamin tablet Take 1 tablet by mouth once daily. * ONETOUCH VERIO TEST STRIPS test strip Generic drug: blood sugar diagnostic Test blood sugar(s) 2 times daily. Dx: Type 2 DM - Controlled E11.9 Insulin: No * BLOOD GLUCOSE TEST test strip Generic drug: blood sugar diagnostic Test blood sugar(s) two (2) times daily. Dx: Other DM Code E11.9. Insulin: No prazosin 1 mg Cap Commonly known as: MINIPRESS QUEtiapine 300 mg tablet Commonly known as: SEROquel simvastatin 40 mg tablet Commonly known as: ZOCOR Take 1 tablet by mouth daily at bedtime. for cholesterol SITagliptin phosphate 100 mg tablet Commonly known as: JANUVIA Take 1 tablet by mouth once daily. traZODone 50 mg tablet Commonly known as: DESYREL * This list has 3 medication(s) that are the same as other medications prescribed for you. Read the directions carefully, and ask your doctor or other care provider to review them with you. STOP taking these medications Artificial Tears Dpet Generic drug: dextran 70-hypromellose cetirizine 10 mg tablet Commonly known as: ZYRTEC cyclobenzaprine 10 mg tablet Commonly known as: FLEXERIL GEODON 80 mg capsule Generic drug: ziprasidone montelukast 10 mg tablet Commonly known as: SIDNEYULAIR STRALASHAERA ORAL ziprasidone 20 mg capsule Commonly known as: GEODON ASK your doctor about these medications CPAP/BIPAP/OTHER Type .CPAPSettings into a note to see current settings/supplies/DME information. glimepiride 4 mg tablet Commonly known as: AMARYL take 1 tablet by mouth once daily with breakfast * lancets 33 gauge Commonly known as: One Touch Delica Test blood sugar(s) 2 daily. Dx: Type 2 DM - Controlled E11.9 Insulin: No TRUE METRIX GLUCOSE METER Generic drug: Blood-Glucose Meter * This list has 1 medication(s) that are the same as other medications prescribed for you. Read the directions carefully, and ask your doctor or other care provider to review them with you. Where to Get Your Medications These medications were sent to [facility] [address] [place] [address] Hours: Friday-Friday, 8am-7pm, Friday 9am-1pm divalproex DR 500 mg EC tablet oxyCODONE IR 5 mg immediate release tablet You can get these medications from any pharmacy Bring a paper prescription for each of these medications FOLDING WALKER WITH 5" [facility]04-01-2024 NoteHNO ID: [id number] Author: JAROD PEREZ LSW Service: Care Management Author Type: Armor Reconnaissance Specialist Type: Care Mgt Initial Assessment Filed: 12/29/2023 12:59 Note Text: CARE MANAGEMENT: ASSESSMENT AND DISCHARGE PLAN SERVICE DATE: December 29, 2023 SERVICE TIME: 12:37 PM PCP: King Matute MD Primary Contact: Extended Emergency Contact Information Primary Emergency Contact: Leann Cutler Mobile Relation: Sister Secondary Emergency Contact: Jeny Ruby Mobile Relation: Mother Admission Status: Inpatient Insurance Provider: MEDICARE A AND B Discharge Planning requested by: Per Department Practice Potential Transition Plans Home Advance Directives Current Advance Directive: None Boiler Technician Attempted to Assist with AD Completion: Yes Action: Patient Unwilling Current Living Arrangements and Support Lives with: Alone Type of Residence: Homeless Does the patient have to climb stairs at home?: No Support: Family members, Friends/neighbors How do you manage to accomplish the following: Independent: Ambulation;Bathe/Shower;Dress;Meals/Meal Prep;Going to the bathroom;Medication Management;Transportation to appointments/community Current Services/Equipment Current Post-Acute Service(s): None Discharge Planning Patient Goal(s): Independent living, Be able to go home, General wellness [place] Explained: [place] Given: No Reason Not Given: No placements necessary Are you interested in bedside delivery of your medications? No Discharge Planning Participant(s): Patient Patient/Family Comments: Caregiver Assessment: and ALCOHOL USE/ABUSE CAGE ASSESSMENT Two or More Affirmative Responses Suggest a Client is a Problem Drinker. - Have you felt the need to cut down on your drinking? No - Do you feel annoyed by people complaining about your drinking? No - Do you ever feel guilty about your drinking? No - Do you ever drink an eye-administrative project coordinator in the morning to relieve shakes? No Transport at Discharge: Sister or friend to case picker per patient Needs Prior to Discharge: Needs Prior to Discharge: (medical clearance) Post-Acute Discharge Plan: Sw met with patient at bedside patient guarded when speaking to him. patient states he is independent with adl's. Patient states he does use drugs and alcohol but does not feel he has a problem and declined resources. Patient stated he wants to continue to use that marijuana and alcohol keep him calm. Patient states he plans to go to his sisters home or his mother's home at discharge. Patient states his sister will pick him up at discharge. Patient is homeless and goes between his mother's home, his sister's home and his car. Patient states he sees a psychiatrist in [facility]. Patient denies any si or hi at this time. Patient states he has been to inpatient psych before but feels he did not get anything out of it. Sw offered patient resources for housing, drug, alcohol resources and shelters. Patient declined all resources. iSIGNATURE: REMIGIO Pires PATIENT NAME: Talia Ruby DATE: December 29, 2023 TIME: 12:37 PM CONTACT #: [phone] NoteHNO ID: [id number] Author: HIRAM SPENCER MD Service: Hospital Medicine Author Type: Physician Type: Progress Notes Filed: 12/29/2023 11:26 Note Text: DEPARTMENT OF HOSPITAL MEDICINE PROGRESS NOTE SERVICE DATE: 12/29/2023 SERVICE TIME: 10:30 AM Hospital Medicine/Primary Attending: Hiram Spencer MD NIGHT AND WEEKEND COVERAGE: After 7pm please page [phone] MEDICATIONS: Current Facility-Administered Medications Medication Dose Route Frequency gabapentin 300 mg cap(s) (NEURONTIN) 300 mg ORAL TID SITagliptin phosphate 100 mg tab(s) (JANUVIA) 100 mg ORAL DAILY simvastatin 40 mg tab(s) (ZOCOR) 40 mg ORAL AT BEDTIME traZODone 50 mg tab(s) (DESYREL) 50 mg ORAL AT BEDTIME levothyroxine 50 mcg tab(s) (SYNTHROID) 50 mcg ORAL DAILY (6 AM) NaCl 0.9% iv flush bag 20 mL INTRAVENOUS PRN ondansetron (PF) 4 mg injection (ZOFRAN) 4 mg INTRAVENOUS q 6 H PRN oxyCODONE IR 5-10 mg tab(s) (ROXICODONE) 5-10 mg ORAL q 4 H PRN hydrOXYzine HCl 50 mg tab(s) (ATARAX) 50 mg ORAL q 8 H PRN ipratropium-albuterol 3 mL nebulizer solution (DUONEB) 3 mL INHALATION q 4 H PRN nicotine 14 mg/24 hr 1 Patch (NICODERM) 1 Patch TRANSDERMAL DAILY And nicotine -- REMOVE patch OTHER DAILY And nicotine - verify patch OTHER q 8 H nicotine polacrilex 2 mg gum (NICORETTE) 2 mg ORAL q 2 H PRN QUEtiapine 400 mg tab(s) (SEROquel) 400 mg ORAL AT BEDTIME dextrose 15 gram/32 mL 15 g (TRUEPLUS) 15 g ORAL PRN Or glucagon 1 mg injection 1 mg INTRAMUSCULAR PRN Or dextrose 10% iv bolus 12.5 g INTRAVENOUS PRN insulin lispro injection (rapid acting) (ADMElog) SUBCUTANEOUS w MEALS montelukast 10 mg tab(s) (SINGULAIR) 10 mg ORAL AT BEDTIME [START ON 12/30/2023] divalproex DR 500 mg tab(s) (DEPAKOTE) 500 mg ORAL DAILY And divalproex DR 1,000 mg tab(s) (DEPAKOTE) 1,000 mg ORAL AT BEDTIME DATA: Diagnostic tests reviewed for today's visit: Lab data: CBC: Recent Labs 12/29/23 0212 12/28/23 0239 12/27/23 0345 WBC 10.11 10.91 10.56 HB 13.0 13.0 12.3* HCT 41.0 40.8 37.5* PLT 235 251 240 MCV 88.6 87.6 87.2 RDWCV 14.6 15.0 14.9 NEUTP 62.4 61.6 61.3 ABSNEUT 6.31 6.73 6.49 LYMPHP 28.2 29.7 29.1 MONOP 6.6 5.6 6.3 EODINP 1.9 2.3 2.4 COAG: No results for input(s): "APTT", "INR" in the last 168 hours. BMP: Recent Labs 12/29/232 12/28/23 0240 12/27/23 0345 GLUC 113* 123* 107* NA 141 139 139 K 4.2 4.5 4.2 CHLOR 102 101 101 CO2 33* 30 31* ANION 6* 8* 7* BUN 12 12 13 CREAT 0.77 0.72* 0.76 CHEM: Recent Labs 12/29/2321112/28/2323912/27/23 034 ALB -- -- 3.5* TPROT -- -- 6.3 CA 9.3 9.4 9.4 HEPATIC: Recent Labs 12/27/23 0345 ALKPHOS 113 ALT 13 AST 15 TBILI 0.4 URINALYSIS:No results for input(s): "PH", "SPGR", "UGLUC", "UBILI", "UKET", "UHB", "UPROT", "UROBIL", "UWBC", "SSA" in the last 168 hours. Invalid input(s): "NITR" CARDIAC: No results for input(s): "PBNP" in the last 168 hours. Problem List Osteomyelitis of right tibia, unspecified type (HCC) (POA: Yes) PHYSICAL EXAM: BP 123/67 Pulse 71 Temp (Src) 97.5 (Oral) Resp 18 Ht 5' 7" (1.70m) Wt 239 lb 6.7 oz (108.6kg) SpO2 94% BMI 37.49 kg/(m2). O2 Therapy: Room Air Follow up : Pt seen and examined. Resting in bed. Reports pain in his leg is controlled. Feels irritable as he has not smoked. Denies other acute complaints. Constitutional - Vitals as above, NAD Respiratory - Course breath sounds. No crackles, wheezes or rales, No labored breathing noted CVS- RRR, no murmur/gallop/rub, pulse 2+ GI- NTND, bowel sounds normally heard Ext - right leg deformity. Assessment and plan: Chronic osteomyelitis of right tibia -Management per orthopedics Suspected underlying COPD Asthma Tobacco abuse - heavy smoker, 3 packs per day -Duoneb QID prn. Recommend discharge on albuterol inhaler q6h prn. Continue home Singulair (states he needs a refill on this). -Continue nicotine patches, advised smoking cessation. -Previously referred for OP PFTs per chart review. Advised following up with PCP for this. HLD -Simvastatin 40 mg daily Hypothyroidism -Continue Synthroid 50 MCG daily T2DM with hyperglycemia -BG trend reviewed, well controlled. Continue Januvia. Carb control diet. -Last A1c 12/09/23 6.2 MAXIMO Obesity -Diet and lifestyle modification counseling -Non-complaint with CPAP at home. Refusing here. Educated on importance of its use. History of bipolar disorder, PTSD -Continue home Depakote, Seroquel and trazodone -Psychiatry on board VTE Prophylaxis: As per primary team Plan of care discussed with: Patient and retail client solutions analyst and Non-Pharmacologic VTE Prophylaxis/Anticoagulants 12/27/23 0900 vte pharmacologic prophylaxis contraindicated ([place]) 12/27/23 0900 pneumatic compression stockings ([place]) SIGNATURE: Hiram Spencer MD PATIENT NAME: Talia Ruby DATE: December 29, 2023 TIME: 10:38 AM PAGER/CONTACT #: Janey jensen [facility] 12-29-2023 NoteHNO ID: [id number] Author: ANSELMO CAAL MD Service: Orthopaedic Surgery Author Type: Physician Type: Progress Notes Filed: 12/29/2023 08:02 Note Text: Orthopaedic Trauma Surgery Attending Addendum Reviewed resident Progress Note. The patient was personally seen and examined on 12/29/2023. Agree with resident history, physical examination, assessment and plan unless otherwise noted. No acute events overnight. Recommend non-weightbearing with the right lower extremity. The patient is stable for discharge to home today with outpatient follow-up with Dr. Benavides. Anselmo Caal MD Orthopaedic Trauma Surgery 12/29/2023 8:00 AM ORTHOPAEDIC SURGERY DAILY PROGRESS NOTE Patient Name: Talia Ruby Date of Evaluation: 12/29/2023 Admission Date: 12/27/2023 Time of Evaluation: 6:09 AM ASSESSMENT: 43 year old male with chronic osteomyelitis to right tibia with progressive deformity through pathological fracture of distal third tibial shaft. No concern for acute infection at this time. PLAN: -Management per ortho -Behavioral medicine consulted -Sitter discontinued -No need for psychiatric admission at this time -Pain control -Antibiotics: Hold for now pending workup -Weight bearing status: Non weight bearing RLE -Dressings: Soft dressings to RLE -Patient intolerant of posterior short leg splint and has removed several previous attempts due to discomfort -Diet: Regular -DVT ppx: SCDs -Home meds -Dispo: Likely home today with plans for outpatient follow up to address chronic deformity 2/2 chronic osteomyelitis INTERVAL HPI: No acute events overnight recorded in chart. Pt in wheelchair this morning stating that he is "feigning for cigarettes, weed, and alcohol." He denies fever/chills, nausea/vomiting or other systemic complaints this morning. Denies drainage from wound. The patient denies new numbness/tingling. OBJECTIVE: BP 124/65 Pulse 70 Temp 36.5 ?C (97.7 ?F) (Oral) Resp 18 Ht 170.2 cm (5' 7") Wt 108.6 kg (239 lb 6.7 oz) SpO2 97% BMI 37.50 kg/m? Intake/Output Summary (Last 24 hours) 12/27 2300 - 12/28 0659 In: - Out: 600 [Urine:600] Exam: General: Pt is alert, resting in bed, no acute distress, cooperative throughout the exam and interview, answers questions appropriately Right Lower Extremity: Chronic deformity noted to the right lower leg with chronic skin changes around previous flap. No fluctuance or drainage appreciated. NTP about the chronic skin changes and area of deformity SILT S/S/SP/DP/T Motor intact DF/PF/EHL DP pulse palpable, foot warm, BCR toes Stable from one day prior Labs: BMP: Sodium 141 12/29/2023 Potassium 4.2 12/29/2023 Chloride 102 12/29/2023 CO2 33 12/29/2023 BUN 12 12/29/2023 Creatinine 0.77 12/29/2023 Glucose 113 12/29/2023 CBC: WBC 10.11 12/29/2023 HGB 13.0 12/29/2023 Hematocrit 41.0 12/29/2023 Platelet Count 235 12/29/2023 COAGS: No results found for this basename: aptt,inr SED RATE/CRP: Sed Rate, Westergren 10 12/27/2023 Sed Rate, Westergren 7 02/10/2018 Sed Rate, Westergren 8 12/29/2017 Sed Rate, Westergren 7 12/22/2017 Sed Rate, Westergren 18 12/15/2017 Sed Rate, Westergren 20 12/08/2017 Sed Rate, Westergren 29 11/26/2017 CRP 2.7 12/27/2023 CRP 1.08 02/10/2018 CRP 1.06 12/29/2017 CRP 0.91 12/22/2017 CRP 0.91 12/15/2017 CRP 1.32 12/08/2017 CRP 3.77 11/26/2017 Imaging: No new orthopaedic imaging to review Tony Whittaker MD Resident, Orthopaedic Surgery 12/29/2023 6:09 AM Please page [phone] from 5p- and on weekends for any issues.[facility]03-31-2024 NoteHNO ID: [id number] Author: HITESH LUNDBERG RN Service: ? Author Type: Registered Nurse Type: Nursing Progress Note Filed: 12/28/2023 13:08 Note Text: EKG- Normal sinus rhythm. Sarmad Jon notified via secure chat.[facility]03-31-2024 NoteHNO ID: [id number] Author: HIRAM SPENCER MD Service: Hospital Medicine Author Type: Physician Type: Progress Notes Filed: 12/28/2023 13:29 Note Text: DEPARTMENT OF HOSPITAL MEDICINE PROGRESS NOTE SERVICE DATE: 12/28/2023 SERVICE TIME: 1:06 PM Hospital Medicine/Primary Attending: Hiram Spencer MD NIGHT AND WEEKEND COVERAGE: After 7pm please page [phone] MEDICATIONS: Current Facility-Administered Medications Medication Dose Route Frequency divalproex DR 500 mg tab(s) (DEPAKOTE) 500 mg ORAL DAILY And divalproex DR 500 mg tab(s) (DEPAKOTE) 500 mg ORAL AT BEDTIME gabapentin 300 mg cap(s) (NEURONTIN) 300 mg ORAL TID SITagliptin phosphate 100 mg tab(s) (JANUVIA) 100 mg ORAL DAILY simvastatin 40 mg tab(s) (ZOCOR) 40 mg ORAL AT BEDTIME traZODone 50 mg tab(s) (DESYREL) 50 mg ORAL AT BEDTIME levothyroxine 50 mcg tab(s) (SYNTHROID) 50 mcg ORAL DAILY (6 AM) NaCl 0.9% iv flush bag 20 mL INTRAVENOUS PRN ondansetron (PF) 4 mg injection (ZOFRAN) 4 mg INTRAVENOUS q 6 H PRN oxyCODONE IR 5-10 mg tab(s) (ROXICODONE) 5-10 mg ORAL q 4 H PRN hydrOXYzine HCl 50 mg tab(s) (ATARAX) 50 mg ORAL q 8 H PRN ipratropium-albuterol 3 mL nebulizer solution (DUONEB) 3 mL INHALATION q 4 H PRN nicotine 14 mg/24 hr 1 Patch (NICODERM) 1 Patch TRANSDERMAL DAILY And [START ON 12/29/2023] nicotine -- REMOVE patch OTHER DAILY And nicotine - verify patch OTHER q 8 H nicotine polacrilex 2 mg gum (NICORETTE) 2 mg ORAL q 2 H PRN QUEtiapine 400 mg tab(s) (SEROquel) 400 mg ORAL AT BEDTIME DATA: Diagnostic tests reviewed for today's visit: Lab data: CBC: Recent Labs 12/28/23 02312/27/23 034 WBC 10.91 10.56 HB 13.0 12.3* HCT 40.8 37.5* PLT 251 240 MCV 87.6 87.2 RDWCV 15.0 14.9 NEUTP 61.6 61.3 ABSNEUT 6.73 6.49 LYMPHP 29.7 29.1 MONOP 5.6 6.3 EODINP 2.3 2.4 COAG: No results for input(s): "APTT", "INR" in the last 168 hours. BMP: Recent Labs 12/28/23 02412/27/23 0345 GLUC 123* 107* NA 139 139 K 4.5 4.2 CHLOR 101 101 CO2 30 31* ANION 8* 7* BUN 12 13 CREAT 0.72* 0.76 CHEM: Recent Labs 12/28/23 02412/27/23 0345 ALB -- 3.5* TPROT -- 6.3 CA 9.4 9.4 HEPATIC: Recent Labs 12/27/23 0345 ALKPHOS 113 ALT 13 AST 15 TBILI 0.4 URINALYSIS:No results for input(s): "PH", "SPGR", "UGLUC", "UBILI", "UKET", "UHB", "UPROT", "UROBIL", "UWBC", "SSA" in the last 168 hours. Invalid input(s): "NITR" CARDIAC: No results for input(s): "PBNP" in the last 168 hours. Problem List Osteomyelitis of right tibia, unspecified type (HCC) (POA: Yes) PHYSICAL EXAM: BP 146/84 Pulse 85 Temp (Src) 97.9 (Oral) Resp 17 Ht 5' 7" (1.70m) Wt 239 lb 6.7 oz (108.6kg) SpO2 97% BMI 37.49 kg/(m2). O2 Therapy: Room Air Follow up : Pt seen and examined. Resting in bed. Reports chronic non-productive cough and pain in his right leg. Denies other acute complaints. Constitutional - Vitals as above, NAD Respiratory - Course breath sounds. No crackles, wheezes or rales, No labored breathing noted CVS- RRR, no murmur/gallop/rub, pulse 2+ GI- NTND, bowel sounds normally heard Assessment and plan: Chronic osteomyelitis of right tibia -Management per orthopedics Suspected underlying COPD Asthma Tobacco abuse -Duoneb QID prn. Consider discharge on albuterol inhaler q6h prn. Resume Singulair. -Continue nicotine patches, advised smoking cessation -Previously referred for OP PFTs per chart review. Advised following up with PCP for this. HLD -Simvastatin 40 mg daily Hypothyroidism -Continue Synthroid 50 MCG daily T2DM with hyperglycemia -Continue Januvia. Change to carb control diet. Start low dose sliding scale insulin. -Last A1c 12/09/23 6.2 MAXIMO Obesity -Diet and lifestyle modification counseling -Non-complaint with CPAP at home. Refusing here. Educated on importance of its use. History of bipolar disorder, PTSD -Continue home Depakote, Seroquel and trazodone -Psychiatry on board VTE Prophylaxis: As per primary team Plan of care discussed with: Patient and retail client solutions analyst and Non-Pharmacologic VTE Prophylaxis/Anticoagulants 12/27/23 0900 vte pharmacologic prophylaxis contraindicated ([place] 12/27/23 0900 pneumatic compression stockings ([place] SIGNATURE: Hiram Spencer MD PATIENT NAME: Talia Ruby DATE: December 28, 2023 TIME: 1:06 PM PAGER/CONTACT #: Team color pager Disclaimer: Portions of this note may have been generated using [employer] voice recognition software. Reasonable efforts were made to correct any dictation errors that resulted due to the programming of this software but some may still be present. Please note, the time of this note does not reflect the time I saw this patient today, but the time of this documentation.[facility]03-31-2024 NoteHNO ID: [id number] Author: ANSELMO CAAL MD Service: Orthopaedic Surgery Author Type: Physician Type: Progress Notes Filed: 12/28/2023 11:32 Note Text: Orthopaedic Trauma Surgery Attending Addendum Reviewed resident Progress Note. The patient was personally seen and examined on 12/28/2023. Agree with resident history, physical examination, assessment and plan unless otherwise noted. No acute events overnight. Awaiting psych consultation for further recommendations. The patient can undergo surgery to the right lower extremity electively as the patient is not acutely ill. Anselmo Caal MD Orthopaedic Trauma Surgery 12/28/2023 11:29 AM ORTHOPAEDIC SURGERY DAILY PROGRESS NOTE Patient Name: Talia Ruby Date of Evaluation: 12/28/2023 Admission Date: 12/27/2023 Time of Evaluation: 7:01 AM ASSESSMENT: 43 year old male with chronic osteomyelitis to right tibia with progressive deformity through pathological fracture of distal third tibial shaft. PLAN: -Management per ortho -Behavioral medicine consulted and plan to evaluate patient today -Discussion had with patient's sister who believes patient would benefit from a psychiatric admission -Pain control -Antibiotics: Hold for now pending workup -Weight bearing status: Non weight bearing RLE -Dressings: Soft dressings to RLE -Patient intolerant of posterior short leg splint and has removed several previous attempts due to discomfort -Diet: Regular -DVT ppx: SCDs -Home meds -Dispo: Pending psychiatric evaluation INTERVAL HPI: No acute events overnight recorded in chart. Denies new concern with RLE. Encouraged patient to continue non weight bearing restriction. The patient denies nausea/vomiting, fevers/chills, and new numbness/tingling. OBJECTIVE: BP 102/83 Pulse 92 Temp 36.5 ?C (97.7 ?F) (Oral) Resp 18 Ht 170.2 cm (5' 7") Wt 108.6 kg (239 lb 6.7 oz) SpO2 95% BMI 37.50 kg/m? Intake/Output Summary (Last 24 hours) No intake/output data recorded. Exam: General: Pt is alert, resting in bed, no acute distress, cooperative throughout the exam and interview, answers questions appropriately Extremities: Right Lower Extremity: Chronic deformity noted to the right lower leg with chronic skin changes around previous flap. No fluctuance or drainage appreciated. NTP about the chronic skin changes and area of deformity SILT S/S/SP/DP/T Motor intact DF/PF/EHL DP pulse palpable, foot warm, BCR toes Labs: BMP: Sodium 139 12/28/2023 Potassium 4.5 12/28/2023 Chloride 101 12/28/2023 CO2 30 12/28/2023 BUN 12 12/28/2023 Creatinine 0.72 12/28/2023 Glucose 123 12/28/2023 CBC: WBC 10.91 12/28/2023 HGB 13.0 12/28/2023 Hematocrit 40.8 12/28/2023 Platelet Count 251 12/28/2023 COAGS: No results found for this basename: aptt,inr SED RATE/CRP: Sed Rate, Westergren 10 12/27/2023 Sed Rate, Westergren 7 02/10/2018 Sed Rate, Westergren 8 12/29/2017 Sed Rate, Westergren 7 12/22/2017 Sed Rate, Westergren 18 12/15/2017 Sed Rate, Westergren 20 12/08/2017 Sed Rate, Westergren 29 11/26/2017 CRP 2.7 12/27/2023 CRP 1.08 02/10/2018 CRP 1.06 12/29/2017 CRP 0.91 12/22/2017 CRP 0.91 12/15/2017 CRP 1.32 12/08/2017 CRP 3.77 11/26/2017 Imaging: No new orthopaedic imaging to review Tony Whittaker MD Resident, Orthopaedic Surgery 12/28/2023 7:01 AM Please page [phone] from 5p-6a and on weekends for any issues.[facility]03-30-2024 NoteHNO ID: [id number] Author: ANSELMO CAAL MD Service: Orthopaedic Surgery Author Type: Physician Type: Plan of Care Filed: 12/27/2023 15:22 Note Text: Orthopaedic Trauma Surgery The patient's sister (Bernadette) was updated via a telephone encounter. Discussed the patient's suicidal risk and behavior as documented in the chart. The patient's sister states the patient has been unstable for the past year with multiple psychiatric admissions. The patient's sister believes the patient would benefit from a psychiatric admission. Orthopaedic trauma surgery called psychiatry answering service to request a consultation. Anselmo Caal MD Orthopaedic Trauma Surgery 12/27/2023 3:21 [facility]03-30-2024 NoteHNO ID: [id number] Author: ERINN BUCIO RN Service: Nursing Author Type: Registered Nurse Type: Nursing Progress Note Filed: 12/27/2023 13:45 Note Text: Pt sister Bernadette requesting to be updated with any changes [phone] Discharge summary Author Quoc Germain [facility] December 26, 2023 11:33pm Note Date/Time December 26, 2023 9:5 8pm [facility] Medical Records Department [address] [place] [id number] Emergency Department Summary 12/26/23 MR#: [id number] Acct: [id number] Name: TALIA RUBY Rep #:[id number] : 1980 43 From: Quoc Germain MD PCP: Dr. Crow Matute MD Status:REG ER Location: ED HPI <Savanah Rasmussen RN - Last Filed: 12/26/23 23:06> History of Present Illness HPI Narrative: Patient is a 43-year-old male with prior history of right lower leg injury who presented to the ED via EMS for concerns of reinjury to his right lower leg. Patient reports approximately 1 month ago he fell while at his mother's house reinjuring his leg. He reports being seen at [facility] and told the leg was fractured, placed in a splint. He then followed up with his primary care doctor who told him his leg was not infected and he did not need to see orthopedics. The patient said he removed the splint as it was "poking" him. Patient reports 10 out of 10 right lower leg pain and new deformity since fall. He denies any recent injury since the fall 1 month ago. He does admit to drinking alcohol this morning at breakfast and smoking marijuana all day, every day. He also smokes 1 to 3 packs of cigarettes per day. Chief Complaint: Lower Extremity Injury Informant: patient Occured/Mechanism Mechanism/Context: Yes fall Onset/Context/Timing Onset: Month(s) (1) Timing: Continuous Quality of Pain: Sharp, Aching and Throbbing Current Severity: 1010 Maximum Severity: 1010 Worsened by: Ambulation Relieved by: Rest Narrative Tetanus Immunization: Unknown Prior similar symptoms: Yes Recent Illness/Hospitalization: No [facility] <Savanah Rasmussen RN - Last Filed: 12/26/23 23:06> [facility] Medical History Hypothyroidism Mental health disorder Schizophrenia Home Medications albuterol sulfate 90 mcg/actuation aerosol inhaler (Ventolin HFA) 1 - 2 puff inhalation Q4H PRN PRN Shortness Of Breath ##1 04/06/16 [Rx Last Taken Unknown] acetaminophen 325 mg tablet (Tylenol) 650 mg PO Q4H PRN PRN Pain 03/01/17 [History Last Taken Unknown] aripiprazole 30 mg tablet (Abilify) 30 mg PO BID 03/01/17 [History Last Taken Unknown] divalproex 500 mg tablet,extended release 24 hr 1,000 mg PO BID 03/01/17 [History Last Taken Unknown] pantoprazole 40 mg tablet,delayed release 40 mg PO DAILY 03/01/17 [History Last Taken Unknown] divalproex 500 mg tablet,delayed release (Depakote) 500 mg PO BID 07/21/23 [History Last Taken Unknown] glimepiride 4 mg tablet 4 mg PO DAILY 07/21/23 [History Last Taken Unknown] levothyroxine 50 mcg tablet (Euthyrox) 50 mcg PO DAILY 07/21/23 [History Last Taken Unknown] lorazepam 2 mg tablet (Ativan) 2 mg PO BID 07/21/23 [History Last Taken Unknown] mirtazapine 15 mg tablet 15 mg PO DAILY 07/21/23 [History Last Taken Unknown] simvastatin 40 mg tablet (Zocor) 40 mg PO DAILY 07/21/23 [History Last Taken Unknown] ziprasidone HCl 60 mg capsule (Geodon) 60 mg PO BID 07/21/23 [History Last Taken Unknown] Allergy/AdvReac Type Severity Reaction Status Date / Time haloperidol [From Haldol] Allergy Other Verified 12/26/23 21:19 haloperidol lactate Allergy Other Verified 12/26/23 21:19 [From Haldol] risperidone [From Risperdal] Allergy Other Verified 12/26/23 21:19 metformin AdvReac Intermediate Diarrhea Verified 12/26/23 21:19 aripiprazole [From Abilify] AdvReac Other Verified 12/26/23 21:19 Social History Smoking Status: Current every day smoker tobacco type: cigarettes ROS <Savanah Rasmussen RN - Last Filed: 12/26/23 23:06> ROS ED Constitutional Constitutional ED: Denies chills, fever(s), sweats or weight loss Eyes Eyes: Denies change in vision ENT ENT ED: Denies rhinorrhea or sore throat Cardiovascular Cardiovascular: Denies chest pain, orthopnea, palpitations or racing heartbeat Respiratory/Chest Respiratory/Chest: Reports cough; Denies dyspnea, dyspnea on exertion or orthopnea Gastrointestinal Gastrointestinal: Denies abdominal pain, diarrhea, nausea or vomiting Genitourinary Genitourinary ED: Denies dysuria, hematuria or urinary frequency Musculoskeletal Musculoskeletal: Denies arthralgias or myalgias Integumentary Reports other Details: Wound to right fuller Neurologic Neurologic: Denies headache(s), paresthesias or weakness Psychiatric Psychiatric: Denies anxiety or depression Endocrine Endocrinology: Denies polydipsia, polyphagia or polyuria Hematologic/Lymphatic Hematologic/Lymphatic: Denies easy bleeding or easy bruising EXAM <Savanah Rasmussen RN - Last Filed: 12/26/23 23:06> Physical Exam Narrative Exam Narrative: Patient awake, alert, cooperative Const Vital Signs: 12/26/23 21:09 12/26/23 22:48 Temperature 97.8 F Temperature Source Oral Pulse Rate 99 85 Respiratory Rate 18 16 Blood Pressure 128/66 H 126/71 H Blood Pressure Mean 86 89 Pulse Ox 96 97 Oxygen Delivery Method Room Air Room Air Positive well nourished and well developed General Appearance ED: well developed and NAD HEENT Reports moist mucous membranes Eyes PERRL Neck full ROM and supple Chest Wall inspection of chest normal and palpation of chest normal Resp normal respiratory effort and clear to auscultation bilaterally Auscultation: wheezes expiratory wheezes, left lower and right lower; Negative for rales or rhonchi Cardio regular rate, regular rhythm, S1 normal heart sound and S2 normal heart sound GI non-tender and non-distended Auscultation: normoactive bowel sounds Palpation: soft Extremity Extremity Narrative: Right lower leg with obvious deformity, mild erythema, 2 inch round yellow scabbed area. No drainage noted. General Extremety ED: Yes edema and weight-bearing difficulty General Extremity: edema and weight-bearing difficulty Neuro oriented x3 Sensorium / Orientation: alert Motor Exam: strength 5/5 throughout Psych mental status grossly normal Skin Skin Narrative: See above under extremity Image ED - Lower Extremity Diagram: 1. Deformity, erythema, yellow scabbed area no drainage <Dr. Quoc Germain MD - Last Filed: 12/26/23 23:03> Physical Exam Const Vital Signs: 12/26/23 21:09 12/26/23 22:48 Temperature 97.8 F Temperature Source Oral Pulse Rate 99 85 Respiratory Rate 18 16 Blood Pressure 128/66 H 126/71 H Blood Pressure Mean 86 89 Pulse Ox 96 97 Oxygen Delivery Method Room Air Room Air MDM <Savanah Rasmussen RN - Last Filed: 12/26/23 23:06> [facility] Narrative Medical decision making narrative: Right tib/fib x-ray ordered to evaluate for fracture. Radiography Diagnostic Testing: Clinical Impression(s) from Imaging Studies Tibia/Fibula X-Ray 12/26/23 21:35 IMPRESSION: Displaced pathologic fractures of the distal tibia and mid fibular shaft which may be consistent with coexisting acute osteomyelitis Electronically Signed: Crow Fernando MD at 22:08 EDT , Differential Diagnosis Differential Diagnosis: Right tib/fib fracture Differential Diagnosis: Cellulitis Management Discussion w/another healthcare provider: Other (Dr. Germain, ED provider) Treatment and Re-Evaluation Narrative: Imaging reviewed. X-ray of the right tib/fib revealed displaced pathologic fractures of the distal tibia and mid fibular shaft with possible coexisting osteomyelitis. Right lower extremity posterior splint placed by Dr. Germain. Dr. Germain contacted [facility] for transfer as patient has had previous surgeries at that facility. Upon reevaluation, patient laying in bed awake and alert. Patient aware of planfor transfer to [facility]. Patient agreeable. <Dr. Quoc Germain MD - Last Filed: 12/26/23 23:03> [facility] MDM Narrative Medical decision making narrative: Right tib/fib x-ray ordered to evaluate for fracture. I have personally performed a face to face assessment of the patient and have reviewed the KEMI Note. I performed a substantive portion of the visit including all aspects of the following. My carrera findings include: History is 43-year-old male has chronic right lower extremity injuries and priororthopedic surgeries done in [facility] and possibly other [facility]. States he had a fall 1 to 2 weeks ago possibly longer he cannot exactly member when. Never sought any evaluation that I am aware of. Family saw his leg tonight thought it looked deformed and more swollen and wanting to be evaluated. Patient does state that he has been drinking tonight and he smokes dope daily. Exam is [43-year-old male vital signs stable afebrile. No acute distress. H EENT exam unremarkable atraumatic. Lungs clear. Heart regular rhythm rate about 80 no murmur. Chest wall and ribs nontender. Abdomen soft nontender. Moving all 4 extremities. Neurovascular intact. His right lower leg mid to lower tib-fib has an obvious deformity. Prior scarring. It slightly warm to the touch. Significantly swollen. He has a normal DP pulse. He is able to wiggle his toes. He has normal touch sensation of the foot. He can do dorsi and plantarflexion of the foot. Can flex extend the knee and hip. The mid to distal third of the tibia is mildly tender. There appears to be a fluid collection. Neurologically is awake and alert with no focal motor deficits.] Medical Decision Making [43-year-old with a fall maybe 1 to 3 weeks ago. Unsure if he had any care at that time it was not done at this facility. He has had chronic right leg problems and had reportedly multiple surgeries with a prior flap. X-ray appears to be comminuted distal tibia fracture. Midshaft fibula fracture. Cannot rule out osteomyelitis. CAT scan has been done and results are pending. I have already spoken to [facility]. They will accept the patient in transfer. We are awaiting a call back whether he will go to the ER or another location in the hospital. Patient was placed in a short leg posterior splint. He has not requested or needed anything currently for pain.] Other additions or changes: [None] Radiography Diagnostic Testing: Clinical Impression(s) from Imaging Studies Tibia/Fibula X-Ray 12/26/23 21:35 IMPRESSION: Displaced pathologic fractures of the distal tibia and mid fibular shaft which may be consistent with coexisting acute osteomyelitis Electronically Signed: Crow Fernando MD at 22:08 EDT Reading Location ID and State: [address] [place] [address] Tel , Service support , Right tib-fib x-ray, 3 views interpreted by myself and the radiologist, shows a midshaft fibular fracture. Callus formation. Midshaft and distal 1/3 comminuted fibula fracture with calcifications. Soft tissue swelling. Suspect fluid collection. Rule out osteomyelitis. Procedures <Dr. Quoc Germain MD - Last Filed: 12/26/23 23:03> Lower Extremity Splints Lower Extremity Splint: Orthoglass Splint Fabrication: Fabricated Location: Right Discharge Plan Triage Chief Complaint: Lower Extremity Injury ED Provider: Quoc Germain Dx/Rx/DC Orders Clinical Impression: Localized soft tissue swelling, Displaced comminuted fracture of shaft of right tibia, Fall, Closed right fibular fracture Prescriptions: No Action albuterol sulfate [Ventolin HFA] 1 INHALER inhaler 1 - 2 puff inhalation Q4H PRN PRN (Reason: Shortness Of Breath) Qty: 1 0RF acetaminophen [Tylenol] 325 MG tablet 650 mg PO Q4H PRN PRN (Reason: Pain) pantoprazole 40 MG tablet 40 mg PO DAILY Hold Instructions: Ordered divalproex 500 MG tablet extended release 24 hr 1,000 mg PO BID Hold Instructions: Ordered aripiprazole [Abilify] 30 MG tablet 30 mg PO BID Hold Instructions: MD Ordered divalproex [Depakote] 500 mg tablet,delayed release (DR/EC) 500 mg PO BID levothyroxine [Euthyrox] 50 mcg tablet 50 mcg PO DAILY glimepiride 4 mg tablet 4 mg PO DAILY simvastatin [Zocor] 40 mg tablet 40 mg PO DAILY mirtazapine 15 mg tablet 15 mg PO DAILY ziprasidone HCl [Geodon] 60 mg capsule 60 mg PO BID Rx Instructions: give with food (meal/snack) lorazepam [Ativan] 2 mg tablet 2 mg PO BID Primary Care Provider: Crow Matute Referrals: Crow Matute MD [Primary Care Provider] - Disposition Disposition: Acute Care Hospital Discharge Location: [facility] What to do if you have Problems For any increased pain, shortness of breath, bleeding, nausea or vomiting, chestpain, or any unexpected problems, contact your Primary Care Provider. Call [facility] ([phone]) or report to the closest Emergency Room. Call 911 if necessary. 12/26/23 2333 <Electronically signed by Quoc Germain MD> Cosigner Signature (if applicable): 12/26/23 2306 <Electronically signed by Savanah Rasmussen RN> CC: Dr. Crow Matute MD ~ Signed [facility] [place] Work Phone: [phone] Miscellaneous Notes* Telephone Encounter - King Matute MD - 12/12/2023 9:40 AM EDT The following approved medication requests have been transmitted electronically. Requested Prescriptions Signed Prescriptions Disp Refills SITagliptin phosphate (JANUVIA) 100 mg tablet 90 tablet 3 Sig: Take 1 tablet by mouth once daily. cholecalciferol, Vitamin D3, (VITAMIN D3) 1,250 mcg (50,000 unit) cap capsule 12 capsule 1 Sig: Take 1 capsule by mouth one time a week. simvastatin (ZOCOR) 40 mg tablet 90 tablet 3 Sig: Take 1 tablet by mouth daily at bedtime. for cholesterol levothyroxine (SYNTHROID) 50 mcg tablet 90 tablet 3 Sig: take 1 tablet by mouth once daily on an empty stomach King Matute MD documented in this encounterHolzer Health System03-12-2024 Instructions* Patient Instructions* King Matute MD - 12/09/2023 4:10 PM EDT BONE MINERAL DENSITY PATIENT INSTRUCTIONS Bone mineral density testing measures the amount of calcium in certain parts of your bones. This information determines how strong your bones are. The test is used to detect osteoporosis, a disease in which the bone's mineral content and density are low, increasing a person's risk of fractures. Thelumbar spine (lower back) and the hip are the skeletal sites usually examined. For the test, remember that: 1. You cannot take this test if you are . 2. Eat a normal diet on the day of the test. 3. Take your medications as you normally would. 4. DO NOT take calcium supplements (such as Tums) for 24 hours before the test. 5. On the day of the test, leave valuables (jewelry or credit cards) at home. 6. The test should be performed prior to oral, rectal or IV contrast studies, or at least 7 days after any of these studies. For the test, you may be asked to wear a hospital gown. You will lie on your back, on a padded table, in a comfortable position. Generally, you can resume your usual activities immediately. documented in this encounterHolzer Health System03-12-2024 NoteHNO ID: [id number] Author: KING MATUTE MD Service: ? Author Type: Physician Type: Progress Notes Filed: 12/09/2023 17:17 Note Text: CHIEF COMPLAINT Patient presents with: broken leg f/u HISTORY OF PRESENT ILLNESS Talia Ruby is a 43 year old male who presents here today for follow up of broken leg. I last saw this patient on 05/20/2023. Leg Pain - he has chronically defomred leg ROM a remote injury,k recent re-injury. Was walking down a steep hill, leg crumbled under him - Occurred approximately 1 month ago - History of fracture around , imaging on 11/10/2023 showed postsurgical changes with incompletely healed tibial and fibular shaft fractures, diffuse soft tissue edema in the mid to distal lower leg - Was recently seen at [facility] ED on 11/25/2023 for worsening right lower extremity pain. Diabetes - States that he "does not have it anymore", sugars normalized after he lost the weight, though he has not been checking sugar regularly, nor taking med - Notes that he gained some of the weight back - Glucose was 132 as of labs obtained on 11/25/2023 - A1c is 8.3% as of 05/20/2023 Hypothyroid, Not taking med, has been out. Psych Schizophrenic. Family he says keeps trying to get him in psych hospital. Health Maintenance Due for Hep B Vaccine (1 of 3- 3 - dose series) Due for Dilated Retinal Exam Due for Diabetic Foot Exam Due for Influenza Vaccine Due for Covid-19 Vaccine (2022- season) Due for Depression Assessment Labs reviewed. Past medical history, appointments, medications, allergies reviewed. REVIEW OF SYSTEMS General: Feels fairly well aside form the leg swelling 50 lb wt loss, fevers or chills. HEENT: No sinus congestion, earache, sore throat. Cardiac: No chest pain, palpitations Resp: No cough, wheeze, shortness of breath GI: No reflux symptoms, food intolerance, bowel changes. : No urinary frequency, dysuria. MS: +worsening lower right leg pain Neuro: twithing form chronic meds, unchanges. PAST MEDICAL HISTORY PAST MEDICAL HISTORY Diagnosis Date Chickenpox Morbid obesity (HCC) MAXIMO treated with BiPAP 12/18/2016 [facility] Osteomyelitis (HCC) 1996 From open Fx tibia/ Schizophrenia (HCC) Seasonal allergies Type 2 diabetes mellitus (HCC) PHYSICAL EXAMINATION BP 142/86 Pulse 98 Ht 170.2 cm (5' 7") Wt 115 kg (253 lb 8.5 oz) SpO2 98% BMI 39.71 kg/m? General: Alert, well developed, well nourished, no distress, pleasant and cooperative. Obese. Heart: Regular rate and rhythm. Normal S1 and S2. No murmurs, rubs, or gallops. Lungs: Clear to auscultation bilaterally. No respiratory distress. No wheezes, rales, or rhonchi. Abdomen: Soft, non-tender, no distention. Extremities: R leg marked deformity, with lateral soft tissue swelling, chronic skin changes on anterilr thin. Feet/ankles without edema, posterior tibial pulses full and symmetrical. Images of the leg are uploaded. Data Reviewed 11/10/2023 Two Xray Views of the Right Tibia/Fibula: FINDINGS: There are postsurgical changes in the lower leg with multiple surgical clips in the mid to distal soft tissues and evidence of prior removal of a tibial intramedullary elijah. There is a comminuted fracture of the distal tibial diaphysis with non bridging callus formation and apex anterior angulation. There is also a fracture of the mid fibular diaphysis with apex anterior angulation and non bridging callus formation. A more distal fibular diaphyseal fracture appears healed. There is diffuse soft tissue swelling throughout the mid to distal lower leg IMPRESSION: Postsurgical changes with incompletely healed tibial and fibular shaft fractures. Diffuse soft tissue edema in the mid to distal lower leg. 11/25/2023 CT Lower Extremity Right Soft Tissue with Contrast Impression: 1. Moderate to prominent superficial edematous changes/cellulitis of the distal aspect of the right lower extremity. 2. No loculated fluid collection is noted. No abnormal gaseous collections are noted. 3. Old fractures as discussed of the right tibia fibula. Assessment/Plan (L03.115, L02.415) Cellulitis and abscess of right lower extremity (primary encounter diagnosis) (M84.461A, M84.463A) Pathological fracture of both tibia and fibula of right lower extremity, unspecified pathological cause, initial encounter (M85.861) Other specified disorders of bone density and structure, right lower leg (Z13.820) Encounter for screening for osteoporosis Comment: Ongoing leg pain. The leg is not warm or red today Will check lab to rule out infection and obtain bone density. Plan: CBC DXA-AXIAL SKELETON, BD DXA TRABECULAR BONE SCORE (TBS) (K43.9) Ventral hernia without obstruction or gangrene (K40.90) Left inguinal hernia Comment: Ongoing Plan: Will continue to monitor (E11.9) Type 2 diabetes mellitus without complication, without long-term curr (more content not included)...[facility]03-12-2024 History of Present illness Narrative* King Matute MD - 12/09/2023 3:51 PM EDT CHIEF COMPLAINT Patient presents with: broken leg f/u HISTORY OF PRESENT ILLNESS Talia Ruby is a 43 year old male who presents here today for follow up of broken leg. I last saw this patient on 05/20/2023. Leg Pain - he has chronically defomred leg ROM a remote injury,k recent re-injury. Was walking down a steep hill, leg crumbled under him - Occurred approximately 1 month ago - History of fracture around , imaging on 11/10/2023 showed postsurgical changes with incompletely healed tibial and fibular shaft fractures, diffuse soft tissue edema in the mid to distal lower leg - Was recently seen at [facility] ED on 11/25/2023 for worsening right lower extremity pain. Diabetes - States that he "does not have it anymore", sugars normalized after he lost the weight, though he has not been checking sugar regularly, nor taking med - Notes that he gained some of the weight back - Glucose was 132 as of labs obtained on 11/25/2023 - A1c is 8.3% as of 05/20/2023 Hypothyroid, Not taking med, has been out. Psych Schizophrenic. Family he \\says keeps trying to get him in psych hospital. Health Maintenance Due for Hep B Vaccine (1 of 3- 3 - dose series) Due for Dilated Retinal Exam Due for Diabetic Foot Exam Due for Influenza Vaccine Due for Covid-19 Vaccine (2022- season) Due for Depression Assessment Labs reviewed. Past medical history, appointments, medications, allergies reviewed. REVIEW OF SYSTEMS General: Feels fairly well aside form the leg swelling 50 lb wt loss, fevers or chills. HEENT: No sinus congestion, earache, sore throat. Cardiac: No chest pain, palpitations Resp: No cough, wheeze, shortness of breath GI: No reflux symptoms, food intolerance, bowel changes. : No urinary frequency, dysuria. MS: +worsening lower right leg pain Neuro: twithing form chronic meds, unchanges. PAST MEDICAL HISTORY PAST MEDICAL HISTORY Diagnosis Date Chickenpox Morbid obesity (HCC) MAXIMO treated with BiPAP 12/18/2016 [facility] Osteomyelitis (HCC) 1997 From open Fx tibia/ Schizophrenia ([facility]) Seasonal allergies Type 2 diabetes mellitus ([facility]) PHYSICAL EXAMINATION BP 142/86 Pulse 98 Ht 170.2 cm (5' 7") Wt 115 kg (253 lb 8.5 oz) SpO2 98% BMI 39.71 kg/m General: Alert, well developed, well nourished, no distress, pleasant and cooperative. Obese. Heart: Regular rate and rhythm. Normal S1 and S2. No murmurs, rubs, or gallops. Lungs: Clear to auscultation bilaterally. No respiratory distress. No wheezes, rales, or rhonchi. Abdomen: Soft, non-tender, no distention. Extremities: R leg marked deformity, with lateral soft tissue swelling, chronic skin changes on anterilr thin. Feet/ankles without edema, posterior tibial pulses full and symmetrical. Images of the leg are uploaded. Data Reviewed 11/10/2023 Two Xray Views of the Right Tibia/Fibula: FINDINGS: There are postsurgical changes in the lower leg with multiple surgical clips in the mid to distal soft tissues and evidence of prior removal of a tibial intramedullary elijah. There is a comminuted fracture of the distal tibial diaphysis with non bridging callus formation and apex anterior angulation. There is also a fracture of the mid fibular diaphysis with apex anterior angulation and non bridging callus formation. A more distal fibular diaphyseal fracture appears healed. There is diffuse soft tissue swelling throughout the mid to distal lower leg IMPRESSION: Postsurgical changes with incompletely healed tibial and fibular shaft fractures. Diffuse soft tissue edema in the mid to distal lower leg. 11/25/2023 CT Lower Extremity Right Soft Tissue with Contrast Impression: 1. Moderate to prominent superficial edematous changes/cellulitis of the distal aspect of the rightlower extremity. 2. No loculated fluid collection is noted. No abnormal gaseous collections are noted. 3. Old fractures as discussed of the right tibia fibula. Assessment/Plan (L03.115, L02.415) Cellulitis and abscess of right lower extremity (primary encounter diagnosis) (M84.461A, M84.463A) Pathological fracture of both tibia and fibula of right lower extremity, unspecified pathological cause, initial encounter (M85.861) Other specified disorders of bone density and structure, right lower leg (Z13.820) Encounter for screening for osteoporosis Comment: Ongoing leg pain. The leg is not warm or red today Will check lab to rule out infection and obtain bone density. Plan: CBC DXA-AXIAL SKELETON, BD DXA TRABECULAR BONE SCORE (TBS) (K43.9) Ventral hernia without obstruction or gangrene (K40.90) Left inguinal hernia Comment: Ongoing Plan: Will continue to monitor (E11.9) Type 2 diabetes mellitus without complication, without long-term current use of insulin (HCC) Comment: Patient discontinued use of medications. Per recent lab glucose was 132. Due for routine labs Plan: HEMOGLOBIN A1C (POC), COMP METABOLIC PANEL, HGB A1C (E78.2) Hyperlipidemia, mixed Comment: Due for routine lab Plan: LIPID PANEL BASIC (E03.9) Acquired hypothyroidism Comment: Managed on levothyroxine. Due for routine lab Plan: TSH BLD (E55.9) Vitamin D deficiency Comment: Due for routine lab Plan: VITAMIN D 25 HYDROXY Requested Prescriptions No prescriptions requested or ordered in this encounter RTO: 1 month Scribe Attestation: By signing my name below, IEleonora, attest that this documentation has been prepared under the direction and in the presence of Crow Matute M.D. Electronically Signed: Rashad Méndez. December 09, 2023 3:51 PM Provider Attestation: King Gomes MD, personally performed the services described in this documentation. All medical record entries made by the scribe were at my direction and in my presence. I have reviewed the chart and discharge instructions (if applicable), and agree that the record reflects my personal performance and is accurate and complete. Electronically Signed: King Matute MD December 09, 2023 5:13 PM documented in this encounterHolzer Health System02-27-2024 Miscellaneous Notes* Telephone Encounter - Jeremy Barber LPN - 11/25/2023 2:21 PM EST Received 11/25/2023 from [facility]. Placed in provider's inbox for review. Route to [place] for scanning. documented in this encounterHolzer Health System02-19-2024 Hospital Discharge instructions Patient Education 11/17/2023 10:39:57 Medicine for Pain Medicine for Pain Medicines can help to block pain, decrease inflammation, and treat related problems. More than one medicine may be used to treat your pain. Medicines may be changed as you feel better, or if they cause side effects. Medicines What they do Possible side effects Non-opioid NSAIDs, aspirin, acetaminophen Reduce pain chemicals at the site of pain. NSAIDs can reduce joint and soft tissue inflammation. Nausea, stomach pain, ulcers, indigestion, bleeding, kidney, and liver problems. Certain NSAIDs mayincrease the risk for cardiovascular disease in some people. Talk with your healthcare provider. Opioids (morphine and similar medicines often called narcotics) Reduce feelings or perception of pain. Used for moderate to severe pain. Nausea, vomiting, itching, drowsiness, constipation, slowed breathing Other medicines (corticosteroids, antinausea, antidepressant, and antiseizure medicines) Reduce swelling, burning or tingling pain, or certain side effects of pain medicines, such as nausea or vomiting Your healthcare provider will explain the possible side effects of these medicines. Anesthetics (local, injected) include lidocaine, benzocaine, and medicines used by anesthesiologists Stop pain signals from reaching the brain by blocking feeling in the treated area Nausea, low blood pressure, fever, slowed breathing, fainting, seizures, heart attack When to call your healthcare provider Call your healthcare provider right away (or have a family member call) if you have: Unrelieved pain Side effects, including constipation or uncontrolled nausea, that interfere with daily activities If you have extreme sleepiness or breathing problems, call 911. Other precautions Ask your healthcare provider or pharmacist how to get rid of your pain medicines safely when you stop using them. Never share your pain medicines with anyone. Store your medicines in a safe place so they can t be stolen. If you think your medicine has been stolen or lost, tell your healthcare provider right away. [id number] [employer]. [address] [place] [address], [place] [address]. All rights reserved. This information is not intended as a substitute for professional medical care. Always follow yourhealthcare professional's instructions. Follow Up Care 11/17/2023 09:35:17 With:ESTHELA CARVALHO MD Address: [address] [place] [place] [address]- [phone] When:2-4 days [facility] 02-19-2024 Note Discharge Instructions Thank you for allowing [facility] to assist you with your healthcare needs. The following is importantdischarge information regarding your hospital visit. Diagnosis from Today's Visit Leg pain-swelling Pain in right leg What to Do Next Instructions from Your Care Team No qualifying data available. Post Acute Orders No qualifying data available. You Need to Schedule the Following Appointments Follow Up with ESTHELA CARVALHO MD When Within 2-4 days Where: [phone] [place] [facility] [place] [address]- [phone] Allergies Haldol ("psychotic hodan", insomnia) RisperDAL (tardive diskinesia, EPS) metFORMIN Medications Please ask your primary doctor or pharmacist before taking any other medication not listed, including over the counter drugs, herbal medications, vitamins and or supplements as they may interact withyour home medications. What How Much When Why Instructions Last Dose New acetaminophen-oxyCODONE (Percocet 5 mg-325 mg oral tablet) 1 tab(s) by mouth Every 6 hours as needed for as needed for pain Pain in right leg Duration: 2 Days Printed Prescription Unchanged atomoxetine (atomoxetine 40 mg oral capsule) 1 cap by mouth Daily at bedtime Unchanged benztropine (benztropine 0.5 mg oral tablet) 1 tab(s) by mouth Two (2) times a day Unchanged cholecalciferol (Vitamin D3 1250 mcg (50,000 intl units) oral capsule) 1 cap by mouth Every week Unchanged divalproex sodium (divalproex sodium 500 mg oral delayed release tablet) 1 tab(s) by mouth Two (2) times a day Unchanged gabapentin (gabapentin 300 mg oral capsule) 1 cap by mouth Three (3) times a day Unchanged glimepiride (glimepiride 4 mg oral tablet) 1 tab(s) by mouth Before breakfast Unchanged hydrOXYzine (hydrOXYzine pamoate 50 mg oral capsule) 1 cap by mouth Four (4) times a day as needed for for anxiety Unchanged levothyroxine (levothyroxine 50 mcg (0.05 mg) oral tablet) 1 tab(s) by mouth Before breakfast Unchanged meloxicam (meloxicam 15 mg oral tablet) 1 tab(s) by mouth Once a day Unchanged prazosin (prazosin 1 mg oral capsule) 1 cap by mouth Daily at bedtime Unchanged QUEtiapine (QUEtiapine 150 mg oral tablet) 2 tab(s) by mouth Daily at bedtime Unchanged simvastatin (simvastatin 40 mg oral tablet) 1 tab(s) by mouth Daily at bedtime Unchanged SITagliptin (Januvia 100 mg oral tablet) 1 tab(s) by mouth Once a day Please take this list to your next doctor s visit. Bring all medications you take, including over the counter medications, herbals and other supplements with you to your doctor s visit. Patients and families are reminded to discard old lists and to update any records with all medication providers or retail pharmacies. Medication Leaflets acetaminophen and oxycodone (a SEET a MIN oh fen and OX i KOE done) Endocet 10/325, Endocet 2.5/325, Endocet 5/325, Endocet 7.5/325, Nalocet, Percocet, Prolate What is the most important information I should know about acetaminophen and oxycodone? MISUSE OF OPIOID MEDICINE CAN CAUSE ADDICTION, OVERDOSE, OR . Keep the medication in a place where others cannot get to it. Taking opioid medicine during may cause life-threatening withdrawal symptoms in the . Fatal side effects can occur if you use opioid medicine with alcohol, or with other drugs that cause drowsiness or slow your breathing. Stop taking this medicine and call your doctor right away if you have skin redness or a rash that spreads and causes blistering and peeling. What is acetaminophen and oxycodone? Acetaminophen and oxycodone is a combination medicine used to relieve moderate to severe pain. Acetaminophen and oxycodone contains an opioide medicine and may be habit-forming. Acetaminophen and oxycodone may also be used for purposes not listed in this medication guide. What should I discuss with my healthcare provider before taking acetaminophen and oxycodone? You should not use this medicine if you are allergic to acetaminophen or oxycodone, or if you have: severe asthma or breathing problems; or a blockage in your stomach or intestines. Tell your doctor if you have ever had: breathing problems, sleep apnea; liver disease; a drug or alcohol addiction; kidney disease; a head injury or seizures; urination problems; or problems with your thyroid, pancreas, or gallbladder. If you use opioid medicine while you are , your baby could become dependent on the drug. This can cause life-threatening withdrawal symptoms in the baby after it is born. Babies born dependent on opioids may need medical treatment for several weeks. Ask a doctor before using opioid medicine if you are . Tell your doctor if you notice severe drowsiness or slow breathing in the nursing baby. How should I take acetaminophen and oxycodone? Follow all directions on your prescription label. Never take this medicine in larger amounts, or for longer than prescribed. An overdose can damage your liver or cause . Tell your doctor if you feel an increased urge to use more of this medicine. Never share opioid medicine with another person, especially someone with a history of drug abuse oraddiction. MISUSE CAN CAUSE ADDICTION, OVERDOSE, OR . Keep the medicine in a place where others cannot get to it. Selling or giving away opioid medicine is against the law. Measure liquid medicine carefully. Use the dosing syringe provided, or use a medicine dose-measuring device (not a kitchen spoon). If you need surgery or medical tests, tell the doctor ahead of time that you are using this medicine. You should not stop using this medicine suddenly. Follow your doctor's instructions about tapering your dose. Store at room temperature away from moisture and heat. Keep track of your medicine. You should be aware if anyone is using it improperly or without a prescription. Do not keep leftover opioid medication. Just one dose can cause in someone using this medicine accidentally or improperly. Ask your pharmacist where to locate a drug take-back disposal program.If there is no take-back program, flush the unused medicine down the toilet. What happens if I miss a dose? Since this medicine is used for pain, you are not likely to miss a dose. Skip any missed dose if itis almost time for your next dose. Do not use two doses at one time. What happens if I overdose? Seek emergency medical attention or call the Poison Help line at . An overdose of this medicine can be fatal, especially in a child or other person using the medicine without a prescription. Overdose symptoms may include nausea, vomiting, sweating, severe drowsiness, pinpoint pupils, slow breathing, or no breathing. Your doctor may recommend you get naloxone (a medicine to reverse an opioid overdose) and keep it with you at all times. A person caring for you can give the naloxone if you stop breathing or don't wake up. Your caregiver must still get emergency medical help and may need to perform CPR (cardiopulmonary resuscitation) on you while waiting for help to arrive. Anyone can buy naloxone from a pharmacy or local health department. Make sure any person caring foryou knows where you keep naloxone and how to use it. What should I avoid while taking acetaminophen and oxycodone? Avoid driving or operating machinery until you know how this medicine will affect you. Dizziness ordrowsiness can cause falls, accidents, or severe injuries. Do not drink alcohol. Dangerous side effects or could occur. Ask a doctor or pharmacist before using any other medicine that may contain acetaminophen (sometimes abbreviated as APAP). Taking certain medications together can lead to a fatal overdose. What are the possible side effects of acetaminophen and oxycodone? Get emergency medical help if you have signs of an allergic reaction: hives; difficulty breathing; swelling of your face, lips, tongue, or throat. Opioid medicine can slow or stop your breathing, and may occur. A person caring for you should give naloxone and/or seek emergency medical attention if you have slow breathing with long pauses,blue colored lips, or if you are hard to wake up. In rare cases, acetaminophen may cause a severe skin reaction that can be fatal. This could occur even if you have taken acetaminophen in the past and had no reaction. Stop taking this medicine and call your doctor right away if you have skin redness or a rash that spreads and causes blistering andpeeling. Call your doctor at once if you have: noisy breathing, sighing, shallow breathing, breathing that stops; a light-headed feeling, like you might pass out; weakness, tiredness, fever, unusual bruising or bleeding; confusion, unusual thoughts or behavior; problems with urination; liver problems--nausea, upper stomach pain, tiredness, loss of appetite, dark urine, lindsay-colored stools, jaundice (yellowing of the skin or eyes); low cortisol levels-- nausea, vomiting, loss of appetite, dizziness, worsening tiredness or weakness; or high levels of serotonin in the body--agitation, hallucinations, fever, sweating, shivering, fast heart rate, muscle stiffness, twitching, loss of coordination, nausea, vomiting, diarrhea. Serious breathing problems may be more likely in older adults and in those who are debilitated or have wasting syndrome or chronic breathing disorders. Common side effects include: dizziness, drowsiness, feeling tired; feelings of extreme happiness or sadness; nausea, vomiting, stomach pain; constipation; or headache. This is not a complete list of side effects and others may occur. Call your doctor for medical advice about side effects. You may report side effects to FDA at 4-388-YWQ-9156. What other drugs will affect acetaminophen and oxycodone? You may have breathing problems or withdrawal symptoms if you start or stop taking certain other medicines. Tell your doctor if you also use an antibiotic, antifungal medication, heart or blood pressure medication, seizure medication, or medicine to treat HIV or hepatitis C. Opioid medication can interact with many other drugs and cause dangerous side effects or . Be sure your doctor knows if you also use: cold or allergy medicines, bronchodilator asthma/COPD medication, or a diuretic ('water pill'); medicines for motion sickness, irritable bowel syndrome, or overactive bladder; other opioids--opioid pain medicine or prescription cough medicine; a sedative like Valium--diazepam, alprazolam, lorazepam, Xanax, Klonopin, Versed, and others; drugs that make you sleepy or slow your breathing--a sleeping pill, muscle relaxer, medicine to treat mood disorders or mental illness; drugs that affect serotonin levels in your body--a stimulant, or medicine for depression, Parkinson's disease, migraine headaches, serious infections, or nausea and vomiting. This list is not complete. Other drugs may affect acetaminophen and oxycodone, including prescription and qjmi-zia-fipulwo medicines, vitamins, and herbal products. Not all possible interactions are listed here. Where can I get more information? Your doctor or pharmacist can provide more information about acetaminophen and oxycodone. Remember, keep this and all other medicines out of the reach of children, never share your medicines with others, and use this medication only for the indication prescribed. Every effort has been made to ensure that the information provided by [employer]. ('[employer]') is accurate, up-to-date, and complete, but no guarantee is made to that effect. Drug information contained herein may be time sensitive. [employer] information has been compiled for use by healthcare practitioners and consumers in the [place] and therefore [employer] does not warrant that uses outside of the [place] are appropriate, unless specifically indicated otherwise. [employer] drug information does not endorse drugs, diagnose patients or recommend therapy. [employer] drug information isan informational resource designed to assist licensed healthcare practitioners in caring for their p atients and/or to serve consumers viewing this service as a supplement to, and not a substitute for, the expertise, skill, knowledge and judgment of healthcare practitioners. The absence of a warningfor a given drug or drug combination in no way should be construed to indicate that the drug or drug combination is safe, effective or appropriate for any given patient. [employer] does not assume any responsibility for any aspect of healthcare administered with the aid of information [employer] provides. The information contained herein is not intended to cover all possible uses, directions, precautions, warnings, drug interactions, allergic reactions, or adverse effects. If you have questions about the drugs you are taking, check with your doctor, nurse or pharmacist. Copyright 2457-9018 [employer]. Version: 22.01. Revision Date: 05/01/2023. Education Materials Medicine for Pain Medicines can help to block pain, decrease inflammation, and treat related problems. More than one medicine may be used to treat your pain. Medicines may be changed as you feel better, or if they cause side effects. Medicines What they do Possible side effects Non-opioid NSAIDs, aspirin, acetaminophen Reduce pain chemicals at the site of pain. NSAIDs can reduce joint and soft tissue inflammation. Nausea, stomach pain, ulcers, indigestion, bleeding, kidney, and liver problems. Certain NSAIDs mayincrease the risk for cardiovascular disease in some people. Talk with your healthcare provider. Opioids (morphine and similar medicines often called narcotics) Reduce feelings or perception of pain. Used for moderate to severe pain. Nausea, vomiting, itching, drowsiness, constipation, slowed breathing Other medicines (corticosteroids, antinausea, antidepressant, and antiseizure medicines) Reduce swelling, burning or tingling pain, or certain side effects of pain medicines, such as nausea or vomiting Your healthcare provider will explain the possible side effects of these medicines. Anesthetics (local, injected) include lidocaine, benzocaine, and medicines used by anesthesiologists Stop pain signals from reaching the brain by blocking feeling in the treated area Nausea, low blood pressure, fever, slowed breathing, fainting, seizures, heart attack When to call your healthcare provider Call your healthcare provider right away (or have a family member call) if you have: Unrelieved pain Side effects, including constipation or uncontrolled nausea, that interfere with daily activities If you have extreme sleepiness or breathing problems, call 911. Other precautions Ask your healthcare provider or pharmacist how to get rid of your pain medicines safely when you stop using them. Never share your pain medicines with anyone. Store your medicines in a safe place so they can t be stolen. If you think your medicine has been stolen or lost, tell your healthcare provider right away. 1228-[address] [employer] [place] [address]. All rights reserved. This information is not intended as a substitute for professional medical care. Always follow yourhealthcare professional's instructions. Additional Information VACCINATE! IT SAVES LIVES! Members of the community who have not yet received the COVID-19 vaccine and would like to receive it can visit one of [facility] vaccine clinics. There are many vaccine clinic locations within the [facility]. For locations and available times, please visit www.[email or web address].[email or web address]/. It is important to note that some COVID mobile vaccine clinics are held outdoors and may be canceled in rainy or stormy conditions. To learn more about pediatric vaccinations (ages 5-11), we invite you to visit the [facility] webpage. [email or web address] learn more about the COVID-19 vaccine, we invite you to visit the CDC website for a list of frequently asked questions. https://www.cdc.gov/coronavirus/2019-ncov/vaccines/faq.html [facility] Patient Portal Access Instructions: Stay connected with your healthcare team and access your personal medical information anytime with the [facility] Patient Portal. If you would like a full copy of your medical records please contact the [facility] Medical Records Department Friday through Friday between 8a.m. and 4:30p.m. Please follow the directions below to access the portal: 1.Access the email account you provided upon registration to the [facility].2.Look for an invitation email from [facility].3.Open the email and access the invitation link: Accept Invitation to [facility]4.Fill in the required chandler to create your account. Sign into [email or web address] with your username and password that you created in the above steps to stay up to date. You can then view a summary of results, a summary of your visits, and the ability to download your summaries to your computer or send the information securely to a physician. Remember that your healthcare information is confidential, so carefully consider who you will allow to register on the [facility] Patient Portal for access to your information. You can also access the [facility] Patient Portal on the [employer]. Simply click on "Health Records" under "HealthData" and then click on the [facility] logo. HOW TO SAFELY DISPOSE OF PRESCRIPTION MEDICATIONS Please use one of the following methods to safely dispose of your unused medications. 1.Use a drug disposal kit: the drug disposal pouch allows you to safely discard your old and unuseddrugs. Ask your nurse to give you one when you are discharged.2.Visit a local take-back location: Many local pharmacies and police departments have programs that collect old and unwanted prescriptiondrugs. Call your local pharmacy or go to http://Popularo.Truckily/2B2Vw9i to find one close to you.3.Make use of household items: Use cat litter or old coffee grounds to dispose medications if other options arenot available. Mix your drugs with these household products, seal them in an airtight container andthrow it into the garbage. Call [facility]: [phone] to be sure your drugs can be disposed of in this way. Some medicines may require a different approach.4.Never flush your medications down the toilet. IF YOU HAVE BEEN PRESCRIBED AN OPIOIDS FOR PAIN If you have been prescribed an opioid (such as hydrocodone, oxycodone or morphine), it is critical to understand the possible side effects and risks of opioid pain medications. Even when taken as directed, opioids can have several side effects including: Tolerance, meaning you might need to take more of a medication for the same pain relief. Nausea, vomiting and/or constipation. Sleepiness, dizziness, dry mouth, confusion, depression or itching. Physical dependence, meaning you have withdrawal symptoms when a medication is stopped ? this can develop within a few days. KNOW YOUR RESPONSIBILITIES It is important to know exactly how much and how often to take the opioid pain medications you are prescribed. Never take opioids in higher amounts or more often than prescribed. Do not combine opioids with alcohol or other drugs that cause drowsiness, such as benzodiazepines, also known as benzos,including diazepam and alprazolam, muscle relaxants or sleep aids. Never sell or share prescriptionopioids. This is illegal. Store opioids in a secure place and out of reach of others (including children, family, friends and visitors). The last page(s) of this document has been signed and retained as a CHART COPY Signatures Patient Education Materials Medicine for Pain Medication Leaflets acetaminophen and oxycodone My discharge plan and instructions have been reviewed and explained to me and I,TALIA RUBY understand my current condition and have read and understand these discharge instructions. I have received a written copy of the plan/instructions. If I have questions, I am aware that I should contactmy doctor. Patient/Board Attendant Signature: Date/Time: Relationship to Patient: Witness Name/Signature: Date/Time: [facility]02-19-2024 Note ORIGINAL EXAMINATION: TWO XRAY VIEWS OF THE RIGHT TIBIA/FIBULA11/17/2023 10:06 am COMPARISON: November 10, 2023 HISTORY: ORDERING SYSTEM PROVIDED HISTORY: Reason for Exam: pain FINDINGS: Healing fractures involving the fibula and tibia are not significantly changed in alignment and angulation. Callus formation along the fibular lesions as well as areas of fragmentation along the tibial fracture noted. There are multiple surgical clips along the medial lower extremity. There is soft tissue edema throughout the lower extremity. No new fracture or dislocation. IMPRESSION: 1. Healing fractures involving the fibula and tibia are not significantly changed in alignment and angulation. 2. Soft tissue edema throughout the lower extremity. Interpreted by: Karyn Rocha DO Preliminary Report By: Karyn Rocha DO Electronically signed By Karyn Rocha DO Dictated Date: 11/17/2023 10:12:06 AM Prelim Date: 11/17/2023 10:13:50 AM Sign Date: 11/17/2023 10:13:50 AM Ordering Provider: [facility]02-12-2024 Hospital Discharge instructions Patient Education 11/10/2023 15:49:02 Fracture, Lower Extremity Leg Fracture You have a break (fracture) of the leg. A fracture is treated with a splint, cast, or special boot.It will usually take at about 8 to 12 weeks for the fracture to heal, but it can take several months in some cases. If you have a severe injury, you may need surgery to fix it. Home care Follow these guidelines when caring for yourself at home: You will be given a splint, cast, boot, or other device to keep the injured area from moving. Unless you were told otherwise, use crutches or a walker. Don t put weight on the injured leg until your healthcare provider says you can do so. (You can rent crutches and a walker at many pharmacies and surgical or orthopedic supply stores.) Keep your leg elevated to reduce pain and swelling. When sleeping, put a pillow under the injured leg. When sitting, support the injured leg so it is above your waist. This is very important during the first 2 days (48 hours). Put an ice pack on the injured area. Do this for 20 minutes every 1 to 2 hours the first day for pain relief. You can make an ice pack by wrapping a plastic bag of ice cubes in a thin towel. As the ice melts, be careful that the cast, splint, or boot doesn t get wet. You can put the ice pack directly over the splint or cast. Continue using the ice pack 3 to 4 times a day for the next 2 days. Thenuse the ice pack as needed to ease pain and swelling. Keep the cast, splint, or boot completely dry at all times. Bathe with your cast, splint, or boot out of the water. Protect it with a large plastic bag, rubber-banded at the top end. If a boot or fiberglass cast or splint gets wet, you can dry it with a chair mechanic. You may use acetaminophen or ibuprofen to control pain, unless another pain medicine was prescribed. If you have chronic liver or kidney disease, talk with your healthcare provider before using thesemedicines. Also talk with your provider if you ve had a stomach ulcer or gastrointestinal bleeding. Don t put creams or objects under the cast if you have itching. Follow-up care Follow up with your healthcare provider, or as advised. This is to make sure the bone is healing the way it should. If a splint was put on, it may be converted to a cast at your next visit. X-rays may be taken. You will be told of any new findings that may affect your care. When to seek medical advice Call your healthcare provider right away if any of these occur: The cast or splint cracks The plaster cast or splint becomes wet or soft The fiberglass cast or splint stays wet for more than 24 hours Bad odor from the cast or wound fluid stains the cast Tightness or pain under the cast or splint gets worse Toes become swollen, cold, blue, numb, or tingly You can t move your toes Skin around cast or splint becomes red Fever of 100.4 F (38 C) or higher, or as directed by your healthcare provider [phone] [employer]. [address] [place] [address]. All rights reserved. This information is not intended as a substitute for professional medical care. Always follow yourhealthcare professional's instructions. Follow Up Care 11/10/2023 13:40:23 With:ANSELMO ENRIQUEZ Address: [address] [place] [address] [address] [place] [address] Business (1) When:2-4 days Comments:Follow-up closely with your doctor, orthopedics, keep splint in place, do not place weight on the affected extremity until seen by orthopedics, return if any worsening or concerning symptoms. With:KING MATUTE Address: [address] [place] [address] [place] [address]- [phone] Business (1) When:2-4 days [facility] 02-12-2024 Emergency department Discharge summary Discharge Instructions Thank you for allowing [facility] to assist you with your healthcare needs. The following is importantdischarge information regarding your hospital visit. Diagnosis from Today's Visit Abrasion Fall Knee injury - Minor Lower leg injury What to Do Next Instructions from Your Care Team No qualifying data available. Post Acute Orders No qualifying data available. You Need to Schedule the Following Appointments Follow Up with ANSELMO ENRIQUEZ When Within 2-4 days Why: Follow-up closely with your doctor, orthopedics, keep splint in place, do not place weight on the affected extremity until seen by orthopedics, return if any worsening or concerning symptoms. Where: [address] [place] [address] [address] [place] [address] Business (1) Follow Up with KING MATUTE When Within 2-4 days Where: [address] [place] [address] [phone] Business (1) Allergies Haldol ("psychotic hodan", insomnia) RisperDAL (tardive diskinesia, EPS) metFORMIN Immunizations This Visit Given Vaccine Datetetanus/diphth/pertuss (Tdap) adult/adol 11/10/2023 Medications Please ask your primary doctor or pharmacist before taking any other medication not listed, including over the counter drugs, herbal medications, vitamins and or supplements as they may interact withur home medications. What How Much When Why Instructions Last Dose New oxyCODONE (oxyCODONE 5 mg oral tablet ( IMMEDIATErelease )) 1 tab(s) by mouth Every 6 hours Lower leg injury Duration: 2 Days Printed Prescription Unchanged atomoxetine (atomoxetine 40 mg oral capsule) 1 cap by mouth Daily at bedtime Unchanged cholecalciferol (Vitamin D3 1250 mcg (50,000 intl units) oral capsule) 1 cap by mouth Every week Unchanged divalproex sodium (divalproex sodium 500 mg oral delayed release tablet) 1 tab(s) by mouth Two (2) times a day Unchanged gabapentin (gabapentin 300 mg oral capsule) 1 cap by mouth Three (3) times a day Unchanged glimepiride (glimepiride 4 mg oral tablet) 1 tab(s) by mouth Before breakfast Unchanged hydrOXYzine (hydrOXYzine pamoate 50 mg oral capsule) 1 cap by mouth Four (4) times a day as needed for for anxiety Unchanged levothyroxine (levothyroxine 50 mcg (0.05 mg) oral tablet) 1 tab(s) by mouth Before breakfast Unchanged meloxicam (meloxicam 15 mg oral tablet) 1 tab(s) by mouth Once a day Unchanged prazosin (prazosin 1 mg oral capsule) 1 cap by mouth Daily at bedtime Unchanged QUEtiapine (QUEtiapine 150 mg oral tablet) 2 tab(s) by mouth Daily at bedtime Unchanged simvastatin (simvastatin 40 mg oral tablet) 1 tab(s) by mouth Daily at bedtime Unchanged SITagliptin (Januvia 100 mg oral tablet) 1 tab(s) by mouth Once a day Please take this list to your next doctor s visit. Bring all medications you take, including over the counter medications, herbals and other supplements with you to your doctor s visit. Patients and families are reminded to discard old lists and to update any records with all medication providers or retail pharmacies. Education Materials Leg Fracture You have a break (fracture) of the leg. A fracture is treated with a splint, cast, or special boot.It will usually take at about 8 to 12 weeks for the fracture to heal, but it can take several months in some cases. If you have a severe injury, you may need surgery to fix it. Home care Follow these guidelines when caring for yourself at home: You will be given a splint, cast, boot, or other device to keep the injured area from moving. Unless you were told otherwise, use crutches or a walker. Don t put weight on the injured leg until your healthcare provider says you can do so. (You can rent crutches and a walker at many pharmacies and surgical or orthopedic supply stores.) Keep your leg elevated to reduce pain and swelling. When sleeping, put a pillow under the injured leg. When sitting, support the injured leg so it is above your waist. This is very important during the first 2 days (48 hours). Put an ice pack on the injured area. Do this for 20 minutes every 1 to 2 hours the first day for pain relief. You can make an ice pack by wrapping a plastic bag of ice cubes in a thin towel. As the ice melts, be careful that the cast, splint, or boot doesn t get wet. You can put the ice pack directly over the splint or cast. Continue using the ice pack 3 to 4 times a day for the next 2 days. Thenuse the ice pack as needed to ease pain and swelling. Keep the cast, splint, or boot completely dry at all times. Bathe with your cast, splint, or boot out of the water. Protect it with a large plastic bag, rubber-banded at the top end. If a boot or fiberglass cast or splint gets wet, you can dry it with a chair mechanic. You may use acetaminophen or ibuprofen to control pain, unless another pain medicine was prescribed. If you have chronic liver or kidney disease, talk with your healthcare provider before using thesemedicines. Also talk with your provider if you ve had a stomach ulcer or gastrointestinal bleeding. Don t put creams or objects under the cast if you have itching. Follow-up care Follow up with your healthcare provider, or as advised. This is to make sure the bone is healing the way it should. If a splint was put on, it may be converted to a cast at your next visit. X-rays may be taken. You will be told of any new findings that may affect your care. When to seek medical advice Call your healthcare provider right away if any of these occur: The cast or splint cracks The plaster cast or splint becomes wet or soft The fiberglass cast or splint stays wet for more than 24 hours Bad odor from the cast or wound fluid stains the cast Tightness or pain under the cast or splint gets worse Toes become swollen, cold, blue, numb, or tingly You can t move your toes Skin around cast or splint becomes red Fever of 100.4 F (38 C) or higher, or as directed by your healthcare provider [id number] [employer]. [address] [place] [address]167. All rights reserved. This information is not intended as a substitute for professional medical care. Always follow yourhealthcare professional's instructions. Additional Information VACCINATE! IT SAVES LIVES! Members of the community who have not yet received the COVID-19 vaccine and would like to receive it can visit one of [facility] vaccine clinics. There are many vaccine clinic locations within the [facility]. For locations and available times, please visit www.gettheshot.coronavirus.[place].gov/. It is important to note that some COVID mobile vaccine clinics are held outdoors and may be canceled in rainy or stormy conditions. To learn more about pediatric vaccinations (ages 5-11), we invite you to visit the [facility] webpage. [email or web address]/[email or web address] [email or web address] learn more about the COVID-19 vaccine, we invite you to visit the CDC website for a list of frequently asked questions. https://www.cdc.gov/coronavirus/2019-ncov/vaccines/faq.html [facility] Patient Portal Access Instructions: Stay connected with your healthcare team and access your personal medical information anytime with the [facility] Patient Portal. If you would like a full copy of your medical records please contact the [facility] Medical Records Department Friday through Friday between 8a.m. and 4:30p.m. Please follow the directions below to access the portal: 1.Access the email account you provided upon registration to the hospital.2.Look for an invitation email from [facility].3.Open the email and access the invitation link: Accept Invitation to [facility]4.Fill in the required chandler to create your account. Sign into [email or web address] with your username and password that you created in the above steps to stay up to date. You can then view a summary of results, a summary of your visits, and the ability to download your summaries to your computer or send the information securely to a physician. Remember that your healthcare information is confidential, so carefully consider who you will allow to register on the [facility] Patient Portal for access to your information. You can also access the [facility] Patient Portal on the [employer]. Simply click on "Health Records" under "HealthData" and then click on the [facility] logo. HOW TO SAFELY DISPOSE OF PRESCRIPTION MEDICATIONS Please use one of the following methods to safely dispose of your unused medications. 1.Use a drug disposal kit: the drug disposal pouch allows you to safely discard your old and unuseddrugs. Ask your nurse to give you one when you are discharged.2.Visit a local take-back location: Many local pharmacies and police departments have programs that collect old and unwanted prescriptiondrugs. Call your local pharmacy or go to http://Popularo.Truckily/8W0Pi3j to find one close to you.3.Make use of household items: Use cat litter or old coffee grounds to dispose medications if other options arenot available. Mix your drugs with these household products, seal them in an airtight container andthrow it into the garbage. Call [facility]: [phone] to be sure your drugs can be disposed of in this way. Some medicines may require a different approach.4.Never flush your medications down the toilet. IF YOU HAVE BEEN PRESCRIBED AN OPIOIDS FOR PAIN If you have been prescribed an opioid (such as hydrocodone, oxycodone or morphine), it is critical to understand the possible side effects and risks of opioid pain medications. Even when taken as directed, opioids can have several side effects including: Tolerance, meaning you might need to take more of a medication for the same pain relief. Nausea, vomiting and/or constipation. Sleepiness, dizziness, dry mouth, confusion, depression or itching. Physical dependence, meaning you have withdrawal symptoms when a medication is stopped ? this can develop within a few days. KNOW YOUR RESPONSIBILITIES It is important to know exactly how much and how often to take the opioid pain medications you are prescribed. Never take opioids in higher amounts or more often than prescribed. Do not combine opioids with alcohol or other drugs that cause drowsiness, such as benzodiazepines, also known as benzos,including diazepam and alprazolam, muscle relaxants or sleep aids. Never sell or share prescriptionopioids. This is illegal. Store opioids in a secure place and out of reach of others (including children, family, friends and visitors). The last page(s) of this document has been signed and retained as a CHART COPY Signatures Patient Education Materials Fracture, Lower Extremity Medication Leaflets My discharge plan and instructions have been reviewed and explained to me and ITUNG SIMON E understand my current condition and have read and understand these discharge instructions. I have received a written copy of the plan/instructions. If I have questions, I am aware that I should contactmy doctor. Patient/Board Attendant Signature: Date/Time: Relationship to Patient: Witness Name/Signature: Date/Time: [facility]02-12-2024 Note ORIGINAL EXAMINATION: TWO XRAY VIEWS OF THE RIGHT TIBIA/FIBULA11/10/2023 1:23 pm COMPARISON: None HISTORY: ORDERING SYSTEM PROVIDED HISTORY: Reason for Exam: pain FINDINGS: There are postsurgical changes in the lower leg with multiple surgical clips in the mid to distal soft tissues and evidence of prior removal of a tibial intramedullary elijah. There is a comminuted fracture of the distal tibial diaphysis with non bridging callus formation and apex anterior angulation. There is also a fracture of the mid fibular diaphysis with apex anterior angulation and non bridging callus formation. A more distal fibular diaphyseal fracture appears healed. There is diffuse soft tissue swelling throughout the mid to distal lower leg IMPRESSION: Postsurgical changes with incompletely healed tibial and fibular shaft fractures. Diffuse soft tissue edema in the mid to distal lower leg. Interpreted by: Josr Pennington Preliminary Report By: Josr Pennington Electronically signed By Josr Pennington Dictated Date: 11/10/2023 2:25:12 PM Prelim Date: 11/10/2023 2:32:28 PM Sign Date: 11/10/2023 2:32:28 PM Ordering Provider: JEAN CLAUDE [facility]CDANI[facility]SK[facility] [place] Miscellaneous Notes* Telephone Encounter - Jeremy Barber LPN - 08/26/2023 11:03 AM EST Received from [facility]. Placed in provider's inbox for review. Route to [place] for scanning documented in this encounterHolzer [facility] System11-27-2023 Discharge summary Author Louis Colon [facility] August 27, 2023 12:38pm Note Date/Time August 25, 2023 9:11pm [facility] Medical Records Department [address] [place] [address] Emergency Department Summary 08/25/23 MR#: [id number] Acct: [id number] Name: TALIA RUBY Rep #:[id number] : 1980 42 From: Louis Travis PCP: Dr. Crow Matute MD Status:REG ER Location: ED ADDENDUM by Dr. Louis Colon DO on 08/27/23 at 1238 Patient accepted to [facility] psychiatry. Patient is being transferredcurrently. 08/27/23 1238<Electronically signed by Louis Travis> Cosigner Signature (if applicable): cc: Dr. Crow Matute MD ~* Signed ADDENDUM by Dr. Louis Colon DO on 08/27/23 at 0802 Patient signed out to me awaiting psychiatric disposition. He had asymptomatic COVID PCR. Overnight was given ketamine, prior to my arrival, patient was ordered for Geodon and Ativan. 08/27/23 0802<Electronically signed by Louis Travis> Cosigner Signature (if applicable): cc: Dr. Crow Matute MD ~* Signed ADDENDUM by Dr. Ajith Mendez DO on 08/26/23 at 2304 No acute events under my care. Signed out to p.m. physician pending final psychiatric disposition. 08/26/23 2304<Electronically signed by Ajith Mendez DO> Cosigner Signature (if applicable): cc: Dr. Crow Matute MD ~* Signed ADDENDUM by Dr. Jeronimo Damon DO on 08/26/23 at 1153 The patient was in his room watching television when he decided to try to leave again. He walked up to a female CONCR[employer]AYER and said "I am the alpha and the omega bitch" raised a fist and tried to push past security. He was lowered to the ground and calm down placed in a wheelchair brought back to the room placed in ather restraints and administered Ativan and Benadryl. 08/26/23 1153<Electronically signed by Jeronimo Damon DO> Cosigner Signature (if applicable): cc: Dr. Crow Matute MD ~* Signed ADDENDUM by Dr. Jeronimo Damon DO on 08/26/23 at 0945 Unfortunately with about 2 hours of having to redirect the patient with food drink television he increasingly became on directable. He stone his coffee in the room. He is open the door and walking on the hallway. He is attempted to remove his clothing. He has been preoccupying nursing staff nonstop for at least 1 hour and now he is attempting to leave the department. Patient was given 20 mg of Geodon. 08/26/23 0945<Electronically signed by Jeronimo Damon DO> Cosigner Signature (if applicable): cc: Dr. Crow Matute MD ~* Signed ADDENDUM by Dr. Erinn Tao MD on 08/26/23 at 0705 Patient signed out to me pending psychiatric evaluation. He is COVID PCR test does return positive. Patient seen and evaluated by staff member from the counseling center. She states that [facility] in [place] is taking some COVID patientswith psychiatric issues and she will check to see if patient may be able to be transferred there. Patient was complaining of abdominal pain and was given a 15mg IM dose of Toradol. He slept comfortably for several hours. At this time patient is back standing at the doorway frequently coming out into the hallway. He has to be redirected multiple times to stay in his room. He has not requiredany chemical sedation at this point as he has been able to be redirected. Patient be signed out to oncoming physician for further observation while awaiting placement. 08/26/23 07<Electronically signed by Erinn Tao MD> Cosigner Signature (if applicable): cc: Dr. 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 History of schizophrenia.He was here earlier for evaluation. Reported discharged from [facility] yesterday. He is on Abilify reports gets injections every 28 days. He states no other medications. He was seen and cleared with a safety plan by case management earlier today. He states he is homeless. He states is cold outside he is doing everything can get into room. He denies suicidal or homicidal ideations. He denies any auditory or visual hallucinations. In addition, he was COVID-positive earlier today. Denies any symptoms states has acough since he started smoking. No fevers headache nausea or vomiting. [facility] Medical History Hypothyroidism Mental health disorder Schizophrenia Home Medications albuterol sulfate 90 mcg/actuation aerosol inhaler (Ventolin HFA) 1 - 2 puff inhalation Q4H PRN PRN Shortness Of Breath ##1 04/06/16 [Rx Last Taken Unknown] acetaminophen 325 mg tablet (Tylenol) 650 mg PO Q4H PRN PRN Pain 03/01/17 [History Last Taken Unknown] aripiprazole 30 mg tablet (Abilify) 30 mg PO BID 03/01/17 [History Last Taken Unknown] divalproex 500 mg tablet,extended release 24 hr 1,000 mg PO BID 03/01/17 [History Last Taken Unknown] pantoprazole 40 mg tablet,delayed release 40 mg PO DAILY 03/01/17 [History Last Taken Unknown] divalproex 500 mg tablet,delayed release (Depakote) 500 mg PO BID 07/21/23 [History Last Taken Unknown] glimepiride 4 mg tablet 4 mg PO DAILY 07/21/23 [History Last Taken Unknown] levothyroxine 50 mcg tablet (Euthyrox) 50 mcg PO DAILY 07/21/23 [History Last Taken Unknown] lorazepam 2 mg tablet (Ativan) 2 mg PO BID 07/21/23 [History Last Taken Unknown] mirtazapine 15 mg tablet 15 mg PO DAILY 07/21/23 [History Last Taken Unknown] simvastatin 40 mg tablet (Zocor) 40 mg PO DAILY 07/21/23 [History Last Taken Unknown] ziprasidone HCl 60 mg capsule (Geodon) 60 mg PO BID 07/21/23 [History Last Taken Unknown] Allergy/AdvReac Type Severity Reaction Status Date / Time haloperidol [From Haldol] Allergy Other Verified 08/03/23 21:33 haloperidol lactate Allergy Other Verified 08/03/23 21:33 [From Haldol] risperidone [From Risperdal] Allergy Other Verified 08/03/23 21:33 acetaminophen AdvReac Diarrhea Verified 08/03/23 21:33 [From Coricidin HBP] aripiprazole [From Abilify] AdvReac Other Verified 08/03/23 21:33 chlorpheniramine AdvReac Diarrhea Verified 08/03/23 21:33 [From Coricidin HBP] dextromethorphan AdvReac Diarrhea Verified 08/03/23 21:33 [From Coricidin HBP] guaifenesin AdvReac Diarrhea Verified 08/03/23 21:33 [From Coricidin HBP] Social History Smoking Status: Current every day smoker tobacco type: cigarettes ROS ROS ED Constitutional Constitutional ED: Denies chills, fever(s) or sweats Eyes Eyes: Denies change in vision ENT ENT ED: Denies dysphagia or sore throat Cardiovascular Cardiovascular: Denies chest pain, leg edema, palpitations or racing heartbeat Respiratory/Chest Respiratory/Chest: Denies cough, dyspnea or dyspnea on exertion Gastrointestinal Gastrointestinal: Denies abdominal pain, diarrhea, nausea or vomiting Genitourinary Genitourinary ED: Denies dysuria, hematuria or urinary frequency Musculoskeletal Musculoskeletal: Denies back pain, extremity pain or neck pain Integumentary Denies rash or wounds Neurologic Neurologic: Denies headache(s), paresthesias or weakness Psychiatric Psychiatric: Denies suicidal ideation or suicidal thoughts EXAM Physical Exam Const Vital Signs: 08/25/23 20:25 Temperature 97.7 F L Temperature Source Temporal Pulse Rate 111 H Respiratory Rate 18 Blood Pressure 168/89 H Blood Pressure Mean 115 Pulse Ox 98 Oxygen Delivery Method Room Air Positive well nourished and well developed General Appearance ED: well developed and NAD HEENT Reports moist mucous membranes normocephalic and atraumatic Eyes PERRL, EOMs intact bilaterally and conjunctivae normal General Eye ED: Yes normal appearance of both eyes Neck no lymphadenopathy and supple General: Negative for tenderness Chest Wall Chest: Negative for tenderness Resp normal respiratory effort and normal air movement Effort and Inspection: symmetric chest movement; Negative for respiratory distress Cardio regular rate, regular rhythm and no murmurs Peripheral Pulses: pulses 2+ throughout GI normal to inspection, nondistended, normoactive bowel sounds and non-tender Palpation: Negative for guarding or rebound tenderness present Back/Spine no CVA tenderness and no thoracic nor lumbar tenderness Extremity normal to inspection General Extremety ED: Negative for edema or tenderness General Extremity: Negative for edema Neuro oriented x3 and no sensory deficits noted Sensorium / Orientation: awake and alert Psych Negative for denies hallucinations, denies homicidal ideation or denies suicidalideation Skin no rashes or lesions noted and no wounds MDM MDM MDM Narrative Medical decision making narrative: Interventions / MDM: Differential diagnosis: Schizophrenia Diagnosis considered but do not suspect: N/A My EKG interpretation: N/A Imaging independently reviewed and interpreted by myself: N/A External documents reviewed: N/A Test considered but not ordered:N/A ED course: Patient brought in here trying to get in the hotel rooms. It is coldoutside. He has history of schizophrenia. He denies suicide homicide ideations. He reports he is homeless. COVID-positive earlier evaluation. After evaluation patient, received call from his Sister Bernadette, states he has multiple family members that he can stay with however he does not want to stay with them. I discussed this with the patient, he states he is only willing to stay with Abigail, Jean Claude,or Leann. Cooperative at this time. Nursing will talk with family member to see if one of the family members is willing to pick him up. 2200: Update, nursing called multiple family members, spoke with his mother who states he does have a room at her house. When approached with patient on this, he states if his mother comes that he threatened homicidal intentions if she comes. He states if he leaves the hospital suicidal ideations. Medical workup was initiated earlier. He had a asymptomatic rapid COVID testing. Will check aPCR. Will discuss with crisis with patient failing a safety plan earlier. [place] was filled out. 0: Nursing reach out to crisis, they are requesting another toxicology screenprior to their evaluation. This was ordered. 2314: Toxicology screen negative. Crisis also request an alcohol level rechecked this was ordered. COVID PCR returned positive. Patient was signed out to night physician, pending crisis evaluation Re-evaluation: Disposition discussed with patient/family/significant other: Case discussed with consulting clinician: This note was generated with [employer] dictation software. It may contain incorrectwords, spelling, and punctuation that were not noted in checking the note beforesigning. Lab Data Attestation: I reviewed the patient's lab results. Labs: Laboratory Results - last 24 hr 08/25/23 21:30 Urine Opiates Screen NEGATIVE Urine Methadone Screen NEGATIVE Ur Barbiturates Screen NEGATIVE Ur Phencyclidine Scrn NEGATIVE Ur Amphetamines Screen NEGATIVE MDMA (Ecstasy) Screen NEGATIVE U Benzodiazepines Scrn NEGATIVE Urine Cocaine Screen NEGATIVE U Cannabinoids Screen NEGATIVE Ur Drug Screen Comment Discharge Plan Triage Chief Complaint: Mental Health ED Provider: Louis Colon Dx/Rx/DC Orders Clinical Impression: Suicidal ideation, Schizophrenia, Homicidal ideation Prescriptions: No Action albuterol sulfate [Ventolin HFA] 1 INHALER inhaler 1 - 2 puff inhalation Q4H PRN PRN (Reason: Shortness Of Breath) Qty: 1 0RF acetaminophen [Tylenol] 325 MG tablet 650 mg PO Q4H PRN PRN (Reason: Pain) pantoprazole 40 MG tablet 40 mg PO DAILY Hold Instructions: MD Ordered divalproex 500 MG tablet extended release 24 hr 1,000 mg PO BID Hold Instructions: MD Ordered aripiprazole [Abilify] 30 MG tablet 30 mg PO BID Hold Instructions: MD Ordered divalproex [Depakote] 500 mg tablet,delayed release (DR/EC) 500 mg PO BID levothyroxine [Euthyrox] 50 mcg tablet 50 mcg PO DAILY glimepiride 4 mg tablet 4 mg PO DAILY simvastatin [Zocor] 40 mg tablet 40 mg PO DAILY mirtazapine 15 mg tablet 15 mg PO DAILY ziprasidone HCl [Geodon] 60 mg capsule 60 mg PO BID Rx Instructions: give with food (meal/snack) lorazepam [Ativan] 2 mg tablet 2 mg PO BID Primary Care Provider: Crow Matute Referrals: Crow Matute MD [Primary Care Provider] - What to do if you have Problems For any increased pain, shortness of breath, bleeding, nausea or vomiting, chestpain, or any unexpected problems, contact your Primary Care Provider. Call [facility] ([phone]) or report to the closest Emergency Room. Call 911 if necessary. 08/25/23 9540 <Electronically signed by Louis Travis> Cosigner Signature (if applicable): CC: Dr. Crow Matute MD ~ Signed [facility] Work Phone: [phone] 593-724211-14-2023 Miscellaneous Notes* Telephone Encounter - Jeremy Barber LPN - 08/12/2023 10:30 AM EST Received 08/11/2023 from [facility]. Placed in provider's inbox for review. Route to [place] for scanning documented in this encounterHolzer [facility] System11-08-2023 Miscellaneous Notes* Telephone Encounter - Jeremy Barber LPN - 08/06/2023 9:58 AM EST Received 08/05/2023 from [facility]. Placed in provider's inbox for review. Route to ND for scanning Medical Clearance for mental health placement. documented in this encounterHolzer Health System11-07-2023 Miscellaneous Notes* Telephone Encounter - Jeremy Barber LPN - 08/05/2023 3:40 PM EST Signed orders faxed. Confirmation receipts received. Sleep study, Titration study and last office note faxed. * Telephone Encounter - Leydi Young RN - 08/04/2023 3:19 PM EST Received fax from [facility] [employer] [facility] requesting detailed written order, chart notes and sleep study results. Printed requested documents and put the packet in provider's inbox to review and sign. Please routeback to clinical pool to fax and scan. documented in this encounterHolzer Health System11-06-2023 Miscellaneous Notes* Telephone Encounter - Ton Dwyer APRN.HARIKA - 08/04/2023 10:44 AM EST Prescriptions sent. Ton Dwyer APRN.HARIKA * Telephone Encounter - Hanane Sánchez - 08/04/2023 8:48 AM EST Probably will not cover alcohol pads, but all orders are pended as requested. * Telephone Encounter - Hilary Amezcua RN - 08/02/2023 8:17 AM EDT [facility] in [place] called 08/01/23 at 4:06 and left message requesting orders for new glucometer, test strips, lancets and alcohol swabs. Per prior message, patient's insurance will not cover Laya. [phone] Hilary Amezcua RN documented in this encounterHolzer Health System11-06-2023 Discharge summary Author Ajith Mendez [facility] August 04, 2023 7:27am Note Date/Time August 03, 2023 1 0:55pm [facility] Medical Records Department [address] [place] [id number] Emergency Department Summary 08/03/23 MR#: [id number] Acct: [id number] Name: TALIA RUBY Rep #:[id number] : 1980 42 From: Erinn Tao MD PCP: Dr. Crow Matute MD Status:REG ER Location: ED ADDENDUM by Dr. Ajith Mendez DO on 08/04/23 at 0727 Patient improvement after agitation after ketamine. Placed on monitor. Remained stable. EKG showed sinus tachycardia, normal axis, slightly prolonged QT interval, no STEMI. Patient is awaiting behavioral health evaluation and admission. 08/04/23 0727<Electronically signed by Ajith Mendez DO> Cosigner Signature (if applicable): cc: Dr. Crow Matute MD ~* Signed ADDENDUM by Dr. Ajith Mendez DO on 08/04/23 at 0550 During prior agitation treatment patient did become transient toxic was sleeping. He dropped to 88%. Placed on supplemental ox with improvement to 97% Patient became agitated once again. This point he was given 500 mg IM ketamine. Placed on the monitor. EKG was obtained. 08/04/23 0550<Electronically signed by Ajith Mendez DO> Cosigner Signature (if applicable): cc: Dr. Crow Matute MD ~* Signed ADDENDUM by Dr. Ajith Mendez DO on 08/04/23 at 0237 Patient was signed out to me by Dr. Tao at 12 AM on 08/04/2023. At 2:30 AM patient went to the bathroom displayed agitation starting to staff attempted to swing at staff. Patient was restrained by police officers. Initial physical restraints were applied for patient and staff safety. Patient was then given 20 mg of IM Geodon, 50 mg IM Benadryl and 2 mg IV and Ativan for agitation control. Monitor was applied, EKG was obtained. We will await effect of medication, and EKG. 08/04/23 0237<Electronically signed by Ajith Mendez DO> Cosigner Signature (if applicable): cc: Dr. Crow Matute MD ~* Signed HPI HPI - Psych History of Present Illness Chief Complaint: Mental Health Informant: patient Narrative Narrative: Patient reported dropped off by his nephew for mental health evaluation. He hasa history of schizophrenia. Patient states that he does not know why he is here. When I asked him specifically if he has thoughts of going to hurt himselfhe states "two one". He denies weight or anyone else. It is my understanding from staff that counseling center saw him in his home andis planning on placement. They sent him in for medical clearance. Patient has had a couple recent visits with placement and majority of history is obtained from these notes. [facility] Medical History Hypothyroidism Mental health disorder Schizophrenia Home Medications albuterol sulfate 90 mcg/actuation aerosol inhaler (Ventolin HFA) 1 - 2 puff inhalation Q4H PRN PRN Shortness Of Breath ##1 04/06/16 [Rx Last Taken Unknown] acetaminophen 325 mg tablet (Tylenol) 650 mg PO Q4H PRN PRN Pain 03/01/17 [History Last Taken Unknown] aripiprazole 30 mg tablet (Abilify) 30 mg PO BID 03/01/17 [History Last Taken Unknown] divalproex 500 mg tablet,extended release 24 hr 1,000 mg PO BID 03/01/17 [History Last Taken Unknown] pantoprazole 40 mg tablet,delayed release 40 mg PO DAILY 03/01/17 [History Last Taken Unknown] divalproex 500 mg tablet,delayed release (Depakote) 500 mg PO BID 07/21/23 [History Last Taken Unknown] glimepiride 4 mg tablet 4 mg PO DAILY 07/21/23 [History Last Taken Unknown] levothyroxine 50 mcg tablet (Euthyrox) 50 mcg PO DAILY 07/21/23 [History Last Taken Unknown] lorazepam 2 mg tablet (Ativan) 2 mg PO BID 07/21/23 [History Last Taken Unknown] mirtazapine 15 mg tablet 15 mg PO DAILY 07/21/23 [History Last Taken Unknown] simvastatin 40 mg tablet (Zocor) 40 mg PO DAILY 07/21/23 [History Last Taken Unknown] ziprasidone HCl 60 mg capsule (Geodon) 60 mg PO BID 07/21/23 [History Last Taken Unknown] Allergy/AdvReac Type Severity Reaction Status Date / Time haloperidol [From Haldol] Allergy Other Verified 08/03/23 21:33 haloperidol lactate Allergy Other Verified 08/03/23 21:33 [From Haldol] risperidone [From Risperdal] Allergy Other Verified 08/03/23 21:33 acetaminophen AdvReac Diarrhea Verified 08/03/23 21:33 [From Coricidin HBP] aripiprazole [From Abilify] AdvReac Other Verified 08/03/23 21:33 chlorpheniramine AdvReac Diarrhea Verified 08/03/23 21:33 [From Coricidin HBP] dextromethorphan AdvReac Diarrhea Verified 08/03/23 21:33 [From Coricidin HBP] guaifenesin AdvReac Diarrhea Verified 08/03/23 21:33 [From Coricidin HBP] Social History Smoking Status: Current every day smoker tobacco type: cigarettes ROS ROS ED Constitutional Constitutional ED: Denies chills or fever(s) Eyes Eyes: Denies change in vision ENT ENT ED: Denies sore throat Cardiovascular Cardiovascular: Denies chest pain Respiratory/Chest Respiratory/Chest: Denies cough or dyspnea Gastrointestinal Gastrointestinal: Denies abdominal pain Musculoskeletal Musculoskeletal: Reports arthralgias Neurologic Neurologic: Denies headache(s) EXAM Physical Exam Const Vital Signs: 08/03/23 21:33 08/03/23 22:32 08/03/23 23:00 Temperature 97.5 F L Temperature Source Temporal Pulse Rate 112 H Respiratory Rate 18 14 14 Blood Pressure 175/93 H Blood Pressure Mean 120 Pulse Ox 99 Oxygen Delivery Method 08/04/23 00:00 Temperature Temperature Source Pulse Rate Respiratory Rate 17 Blood Pressure Blood Pressure Mean Pulse Ox 98 Oxygen Delivery Method Room Air Positive well nourished and well developed General Appearance ED: well developed HEENT Reports moist mucous membranes Eyes EOMs intact bilaterally Resp normal respiratory effort and clear to auscultation bilaterally Cardio Rate: regular rate Rhythm: regular rhythm GI non-tender Palpation: soft Extremity normal to inspection Neuro no sensory deficits noted Sensorium / Orientation: alert Motor Exam: strength 5/5 throughout Psych Psych Narrative: Patient with delayed response to questions. Will not answer me whether he is suicidal or not. Denies any prior attempts to harm himself. MDM MDM MDM Narrative Medical decision making narrative: Blood work for mental health clearance obtained. Lab Data Attestation: I reviewed the patient's lab results. Labs: Laboratory Results - last 24 hr 08/03/23 08/03/23 22:00 22:25 WBC 14.7 H RBC 4.57 L Hgb 13.0 Hct 40.9 MCV 89.5 MCH 28.4 MCHC 31.8 L RDW Std Deviation 46.8 H RDW Coeff of Shruti 14.6 Plt Count 298 MPV 10.3 Immature Gran % (Auto) 0.600 Neut % (Auto) 66.5 Lymph % (Auto) 25.3 [place] % (Auto) 6.3 Eos % (Auto) 1.0 Baso % (Auto) 0.3 Absolute Neuts (auto) 9.8 H Absolute Lymphs (auto) 3.72 Nucleated RBC % 0 Sodium 137 Potassium 3.7 Chloride 95 L Carbon Dioxide 35.0 H Anion Gap 7 BUN 15 Creatinine 0.93 Estim Creat Clear Calc 92.42 Est GFR (MDRD) Af Amer 114 Est GFR (MDRD) Non-Af 94 BUN/Creatinine Ratio 16.1 Glucose 193 H Calcium 9.6 Urine Opiates Screen NEGATIVE Urine Methadone Screen NEGATIVE Ur Barbiturates Screen NEGATIVE Ur Phencyclidine Scrn NEGATIVE Ur Amphetamines Screen NEGATIVE MDMA (Ecstasy) Screen NEGATIVE U Benzodiazepines Scrn NEGATIVE Urine Cocaine Screen NEGATIVE U Cannabinoids Screen POSITIVE H Ur Drug Screen Comment Ethyl Alcohol < 3.0 Treatment and Re-Evaluation Narrative: CBC was a white count of 14.7 with normal differential. Hemoglobin is normal at13. Chemistry studies are unremarkable other than a glucose of 193. EtOH is less than 3. Talk screen is positive only for cannabinoids. COVID test is negative. It is my understanding that crisis is already seen the patient and planning on placement. Discharge Plan Triage Chief Complaint: Mental Health ED Provider: Erinn Tao Dx/Rx/DC Orders Prescriptions: No Action albuterol sulfate [Ventolin HFA] 1 INHALER inhaler 1 - 2 puff inhalation Q4H PRN PRN (Reason: Shortness Of Breath) Qty: 1 0RF acetaminophen [Tylenol] 325 MG tablet 650 mg PO Q4H PRN PRN (Reason: Pain) pantoprazole 40 MG tablet 40 mg PO DAILY Hold Instructions: MD Ordered divalproex 500 MG tablet extended release 24 hr 1,000 mg PO BID Hold Instructions: MD Ordered aripiprazole [Abilify] 30 MG tablet 30 mg PO BID Hold Instructions: MD Ordered divalproex [Depakote] 500 mg tablet,delayed release (DR/EC) 500 mg PO BID levothyroxine [Euthyrox] 50 mcg tablet 50 mcg PO DAILY glimepiride 4 mg tablet 4 mg PO DAILY simvastatin [Zocor] 40 mg tablet 40 mg PO DAILY mirtazapine 15 mg tablet 15 mg PO DAILY ziprasidone HCl [Geodon] 60 mg capsule 60 mg PO BID Rx Instructions: give with food (meal/snack) lorazepam [Ativan] 2 mg tablet 2 mg PO BID Primary Care Provider: Crow Matute Referrals: Crow Matute MD [Primary Care Provider] - What to do if you have Problems For any increased pain, shortness of breath, bleeding, nausea or vomiting, chestpain, or any unexpected problems, contact your Primary Care Provider. Call [facility] ([phone]) or report to the closest Emergency Room. Call 911 if necessary. 08/04/23 0033 <Electronically signed by Erinn Tao MD> Cosigner Signature (if applicable): CC: Dr. Crow Matute MD ~ Signed [facility] Work Phone: 1(136) 228-118910-24-2023 Discharge summary Author Jeronimo Damon [facility] July 22, 2023 3:39am Note Date/Time July 21, 2023 4 :16pm [facility] Medical Records Department [address] [place] [id number] Emergency Department Summary 07/21/23 MR#: [id number] Acct: [id number] Name: TALIA RUBY Rep #:[id number] : 1980 42 From: Pawan Osorio PCP: Dr. Crow Matute MD Status:REG ER Location: ED ADDENDUM by Dr. Jeronimo Damon DO on 07/22/23 at 0339 The patient became quite aggressive loud disruptive argumentative and threatening violence. He received Benadryl and Geodon IM. After administrationthe patient is sleeping comfortably in the bed 07/22/23 033<Electronically signed by Jeronimo Damon DO> Cosigner Signature (if applicable): cc: Dr. Crow Matute MD ~* Signed HPI HPI - Psych History of Present Illness Chief Complaint: Mental Health Informant: patient Onset/Context/Timing Onset: Today Timing: Continuous Associated Symptoms Associated Symptoms - Psych: Positive for Flight of Ideas, Increased activity and Pressured Speech; Negative for Suicidal Thoughts, Visual Hallucinations or Auditory Hallucinations Narrative Narrative: Patient presents because "they think I am ill". Patient is very poor informant. Patient states that he does not think he is ill. Patient denies any suicidal or homicidal ideations. Patient denies any visual or auditory hallucinations. However, states "I am divinely the inspired by God." Patient denies any fevers or chills. Patient admits to some nausea but denies any vomiting. Patient admits to some pain in his neck. Patient denies any fevers or chills. [facility] Medical History unable to obtain Home Medications albuterol sulfate 90 mcg/actuation aerosol inhaler (Ventolin HFA) 1 - 2 puff inhalation Q4H PRN PRN Shortness Of Breath ##1 04/06/16 [Rx Last Taken Unknown] acetaminophen 325 mg tablet (Tylenol) 650 mg PO Q4H PRN PRN Pain 03/01/17 [History Last Taken Unknown] aripiprazole 30 mg tablet (Abilify) 30 mg PO BID 03/01/17 [History Last Taken Unknown] divalproex 500 mg tablet,extended release 24 hr 1,000 mg PO BID 03/01/17 [History Last Taken Unknown] pantoprazole 40 mg tablet,delayed release 40 mg PO DAILY 03/01/17 [History Last Taken Unknown] divalproex 500 mg tablet,delayed release (Depakote) 500 mg PO BID 07/21/23 [History Last Taken Unknown] glimepiride 4 mg tablet 4 mg PO DAILY 07/21/23 [History Last Taken Unknown] levothyroxine 50 mcg tablet (Euthyrox) 50 mcg PO DAILY 07/21/23 [History Last Taken Unknown] lorazepam 2 mg tablet (Ativan) 2 mg PO BID 07/21/23 [History Last Taken Unknown] mirtazapine 15 mg tablet 15 mg PO DAILY 07/21/23 [History Last Taken Unknown] simvastatin 40 mg tablet (Zocor) 40 mg PO DAILY 07/21/23 [History Last Taken Unknown] ziprasidone HCl 60 mg capsule (Geodon) 60 mg PO BID 07/21/23 [History Last Taken Unknown] Allergy/AdvReac Type Severity Reaction Status Date / Time haloperidol [From Haldol] Allergy Other Verified 07/21/23 14:37 haloperidol lactate Allergy Other Verified 07/21/23 14:37 [From Haldol] risperidone [From Risperdal] Allergy Other Verified 07/21/23 14:37 acetaminophen AdvReac Diarrhea Verified 07/21/23 14:37 [From Coricidin HBP] aripiprazole [From Abilify] AdvReac Other Verified 07/21/23 14:37 chlorpheniramine AdvReac Diarrhea Verified 07/21/23 14:37 [From Coricidin HBP] dextromethorphan AdvReac Diarrhea Verified 07/21/23 14:37 [From Coricidin HBP] guaifenesin AdvReac Diarrhea Verified 07/21/23 14:37 [From Coricidin HBP] Surgical History unable to obtain Social History Smoking Status: Current every day smoker tobacco type: cigarettes ROS ROS ED Constitutional Constitutional ED: Denies chills or fever(s) Eyes Eyes: Denies blurry vision or change in vision ENT ENT ED: Denies rhinorrhea or sore throat Cardiovascular Cardiovascular: Denies chest pain or palpitations Respiratory/Chest Respiratory/Chest: Denies cough or dyspnea Gastrointestinal Gastrointestinal: Reports nausea; Denies vomiting Genitourinary Genitourinary ED: Denies dysuria or hematuria Musculoskeletal Musculoskeletal: Reports neck pain; Denies back pain Integumentary Denies abscess or rash Neurologic Neurologic: Denies headache(s) or weakness Allergic/Immunologic Allergic/Immunologic ED: Denies mouth swelling or urticaria EXAM Physical Exam Const Vital Signs: 07/21/23 14:38 07/21/23 18:37 Temperature 97.6 F L Temperature Source Temporal Pulse Rate 105 H 102 H Respiratory Rate 18 16 Blood Pressure 129/112 H 130/69 H Blood Pressure Mean 117 89 Pulse Ox 98 98 Oxygen Delivery Method Room Air Room Air Positive well nourished, well developed and obese General Appearance ED: well developed Nutritional Appearance: obese HEENT Reports moist mucous membranes Neck supple and no JVD Resp normal respiratory effort and clear to auscultation bilaterally Cardio Rate: regular rate Rhythm: regular rhythm GI non-tender and non-distended Palpation: soft Neuro oriented x3, CN's II-XII intact bilaterally and no sensory deficits noted Sensorium / Orientation: alert Motor Exam: strength 5/5 throughout Psych Appearance: well kempt Activity / Motor Behavior: fidgetting, hyperactive and restless Thought Content: No suicidality, No homicidality and delusion(s) Delusional Thought Content Details: Positive for grandiose Memory / Cognition: memory grossly intact Insight: limited Judgement: limited MDM MDM MDM Narrative Medical decision making narrative: Medical screening labs will be obtained for medical clearance. CBC will be obtained to assess for leukocytosis and anemia. Basic metabolic profile will beobtained to assess for electrolyte abnormality and renal function. Serum alcohol level will be obtained to assess for alcohol intoxication. Urine drug screen will be obtained to assess for substance abuse. COVID-19 rapid antigen will be obtained to assess for COVID-19 infection. Lab Data Attestation: I reviewed the patient's lab results. Lab results narrative: CBC was reviewed and shows a slight leukocytosis of 11.2. The remainder is within normal limits. COVID-19 rapid antigen was reviewed and was negative. Basic metabolic profile was reviewed. Glucose was slightly elevated at 171. The remainder is within normal limits. Anion gap was normal. Serum alcohol level was reviewed and was less than 3.0. Urine tox screen was reviewed and wasnegative. Labs: Laboratory Results - last 24 hr 07/21/23 07/21/23 15:35 16:15 WBC 11.2 H RBC 4.75 Hgb 13.7 Hct 41.6 MCV 87.6 MCH 28.8 MCHC 32.9 RDW Std Deviation 46.0 H RDW Coeff of Shruti 14.5 Plt Count 294 MPV 9.9 Immature Gran % (Auto) 0.400 Neut % (Auto) 67.3 Lymph % (Auto) 23.0 [place] % (Auto) 7.5 Eos % (Auto) 1.4 Baso % (Auto) 0.4 Absolute Neuts (auto) 7.6 Absolute Lymphs (auto) 2.59 Nucleated RBC % 0 Sodium 137 Potassium 3.8 Chloride 102 Carbon Dioxide 32.0 Anion Gap 3 L BUN 15 Creatinine 0.84 Estim Creat Clear Calc 106.01 Est GFR (MDRD) Af Amer 127 Est GFR (MDRD) Non-Af 105 BUN/Creatinine Ratio 17.8 Glucose 171 H Calcium 9.9 Urine Opiates Screen NEGATIVE Urine Methadone Screen NEGATIVE Ur Barbiturates Screen NEGATIVE Ur Phencyclidine Scrn NEGATIVE Ur Amphetamines Screen NEGATIVE MDMA (Ecstasy) Screen NEGATIVE U Benzodiazepines Scrn NEGATIVE Urine Cocaine Screen NEGATIVE U Cannabinoids Screen NEGATIVE Ur Drug Screen Comment Ethyl Alcohol < 3.0 Treatment and Re-Evaluation Narrative: Patient was given his home medications which included Geodon, Depakote, and Ativan. Patient became very agitated. Patient was given a dose of Ativan. Patient was resting comfortably and then had a second episode where he became agitated and was threatening staff. Patient was given a repeat dose of Ativan. floor worker well service was in to evaluate the patient. She was able to get the patient placed at [facility]. However, transport will not be available until tomorrow morning. Patient will be turned over to the oncoming physician until transport can be arranged. Discharge Plan Triage Chief Complaint: Mental Health ED Provider: Pawan Cardenas Dx/Rx/DC Orders Clinical Impression: Psychosis, Agitation Prescriptions: No Action albuterol sulfate [Ventolin HFA] 1 INHALER inhaler 1 - 2 puff inhalation Q4H PRN PRN (Reason: Shortness Of Breath) Qty: 1 0RF acetaminophen [Tylenol] 325 MG tablet 650 mg PO Q4H PRN PRN (Reason: Pain) pantoprazole 40 MG tablet 40 mg PO DAILY Hold Instructions: MD Ordered divalproex 500 MG tablet extended release 24 hr 1,000 mg PO BID Hold Instructions: MD Ordered aripiprazole [Abilify] 30 MG tablet 30 mg PO BID Hold Instructions: MD Ordered divalproex [Depakote] 500 mg tablet,delayed release (DR/EC) 500 mg PO BID levothyroxine [Euthyrox] 50 mcg tablet 50 mcg PO DAILY glimepiride 4 mg tablet 4 mg PO DAILY simvastatin [Zocor] 40 mg tablet 40 mg PO DAILY mirtazapine 15 mg tablet 15 mg PO DAILY ziprasidone HCl [Geodon] 60 mg capsule 60 mg PO BID Rx Instructions: give with food (meal/snack) lorazepam [Ativan] 2 mg tablet 2 mg PO BID Primary Care Provider: Crow Matute Referrals: Crow Matute MD [Primary Care Provider] - Disposition Disposition: Psychiatric Hospital or Unit Discharge [facility]: [facility] What to do if you have Problems For any increased pain, shortness of breath, bleeding, nausea or vomiting, chestpain, or any unexpected problems, contact your Primary Care Provider. Call [facility] ([phone]) or report to the closest Emergency Room. Call 911 if necessary. 07/22/23 0029 <Electronically signed by Pawan Cardenas DO> Cosigner Signature (if applicable): CC: Dr. Crow Matute MD ~ Signed [facility] Work Phone: 1(431) 549-389410-12-2023 NoteSinus rhythm Electronic Signature: CARLIE HART MD 07/10/2023 11:08:07[facility] [place] 10-12-2023 SARS-CoV-2 (COVID-19) RNA HIRAM+probe Ql (Nph) Negative *NA* (07/10/23 10:56 AM)AO Auto Urine [id number] Miscellaneous Notes* Telephone Encounter - Rossy Bains - 07/03/2023 9:28 AM EDT Order, sleep study, insurance cards, pt demographics sheet and JULI note faxed to [facility] [employer] [facility] [phone] * Telephone Encounter - Ton Dwyer APRN.CNP - 07/02/2023 2:42 PM EDT Orders placed in outbox, please fax. Ton Dwyer APRN.CNP * Telephone Encounter - Rossy Bains - 07/02/2023 2:14 PM EDT Called and informed pt of Sleep Study results and recommendation for bilevel pap. Pt states he doesneed a new order. Pt states he uses [facility]. * Telephone Encounter - Ton Dwyer APRN.CNP - 07/02/2023 11:59 AM EDT Let patient know that his sleep study confirmed a diagnosis of severe sleep apnea and recommended aBilevel Pap machine with auto settings. Does he need new machine/supplies orders sent and if so, what DME company does he use? Ton Dwyer APRN.CNP documented in this encounterHolzer Health System09-30-2023 History of Present illness Narrative* Pb Roy MD - 06/28/2023 8:07 PM EDT June 28, 2023 Standing PSG Orders signed in the last 90 days None Future PSG Orders signed in the last 90 days Ordered Auth. provider PAP TITRATION PSG (CPAP, BIPAP, ASV) [[id number]] 05/19/23 Ton Dwyer APRN.[employer]. diagnoses: Obstructive sleep apnea [G47.33] Q: Indications: A: Obstructive sleep apnea Q: STOP-BANG conditions - Select All That Apply: A: GENDER = male A2: BMI > 35 kg/m2 Q: Special Needs (e.g.behavior, non-ambulatory, >450 lbs)?: A: No Q: Prior PAP (CPAP or Bilevel PAP) Use?: A: Yes Q: Sleep History: A: Sleep apnea Q: Current use of supplemental oxygen during sleep period?: A: No Q: Add supplemental oxygen if needed per sleep lab policy?: A: Yes All Prior Sleep Studies (past 365 days) Some values may be hidden. Unless noted otherwise, only the newest values recorded on each date aredisplayed. Sleep Studies PAP TITRATION PSG (CPAP, BIPAP, ASV) Future Expected: Expires: 06/17/24 BMI Readings from Last 2 Encounters: 05/20/23 : 41.82 kg/m 10/21/22 : 46.36 kg/m PAST MEDICAL HISTORY Diagnosis Date Chickenpox Morbid obesity ([facility]) MAXIMO treated with BiPAP 12/18/2016 [facility] ([facility]) 1997 From open Fx tibia/ Schizophrenia ([facility]) Seasonal allergies Type 2 diabetes mellitus ([facility]) The medical record was reviewed to determine if the proposed sleep study conforms to the AASM Practice Parameters for the Indications for Polysomnography and Related Procedures, or if the sleep studyis indicated for other reasons. Indications for study: MAXIMO previously diagnosed: Evaluate response to PAP therapy - Last PSG was in 2015, finding MAXIMO and sleep-related hypoventilation. Split- night PAP titration showed normalization of events at bilevel PAP settings of , but he did require 2 LPM oxygen. - Patient stated to ordering provider that he wants a BiPAP ST machine, and that he is not currently using supplemental oxygen overnight. Sleep study to be performed: Split Study-Polysomnogram with PAP titration Special instructions: Split night study if AHI > 10. Start with 10 cmH2O then titrate per protocol Target REM/supine sleep Add EtCO2 or Transcutaneous CO2 if available MD Mansoor Ferris MD Attending Sleep Physician documented in this encounterHolzer Health System09-19-2023 Miscellaneous Notes* Telephone Encounter - Ton Dwyer APRN.CNP - 06/17/2023 12:51 PM EDT Rx sent. Requested Prescriptions Signed Prescriptions Disp Refills Blood-Glucose Sensor (FREESTYLE LAYA 3 SENSOR) fernando 6 Each 3 Sig: Apply new sensor every fourteen (14) days to upper arm. Authorizing Provider: TON DWYER Pharmacy Information Pharmacy Address [id number] [address] [place] [address] * Telephone Encounter - Jeremy Barber LPN - 06/17/2023 12:42 PM EDT Patient said he does not know how to reach insurance company. Patient would like it ordered to see.He has Medicaid so hopefully they might cover it. * Telephone Encounter - Ton Dwyer APRN.CNP - 06/17/2023 9:33 AM EDT Usually these need to go through DME company for Medicare, check with insurance and let us know where to send the Rx. Also, does he have smart phone capability to use with the system? Ton Dwyer APRN.CNP * Telephone Encounter - Hilary Amezcua RN - 06/17/2023 8:59 AM EDT Patient calling, he is interested in starting [facility] system. Asking if it can be sent to [facility]. He states he has not talked to Dr. Matute about this yet- please advise if OV is needed to discuss prior? Or if script can be sent to [facility]? Hilary Amezcua RN documented in this encounterHolzer Health System08-21-2023 Miscellaneous Notes* Telephone Encounter - Thea Nieto - 05/19/2023 11:08 AM EDT Last appointment: 10/21/22 Next appointment: 05/20/23 Pharmacy verified in [employer]. Refill(s) requested: Requested Prescriptions Pending Prescriptions Disp Refills levothyroxine (SYNTHROID) 50 mcg tablet [Pharmacy Med Name: LEVOTHYROXINE 50 MCG TABLET] 90 tablet 0 Sig: take 1 tablet by mouth once daily ON AN EMPTY STOMACH Order(s) pended. Please advise. Thea Nieto LPN documented in this encounterHolzer Health System08-17-2023 Miscellaneous Notes* Telephone Encounter - Ton Dwyer APRN.CNP - 05/15/2023 3:30 PM EDT Noted. Ton Dwyer APRN.HARIKA * Telephone Encounter - Delisa Denney - 05/15/2023 12:58 PM EDT Yulia from [facility] is calling King Matute MD today with concern regardingPatient Update (Home care referral being rejected due to patient stating to company nurse that he did not need the home care services)so Yulia is declining the referral for home care services for this patient. Be advised. Patient has been identified by name and birthdate. Duration of symptoms: N/A Person calling: Yulia HENSLEY Call patient at: at home [phone] (home) [phone] (cell) Was an appointment scheduled: No Closing statement: Results or non-symptom based questions: Thank you for calling [facility], your call will be returned within the next business day. Delisa Patel Pss documented in this encounterHolzer Health System08-16-2023 Miscellaneous Notes* Telephone Encounter - Jeremy Barber LPN - 05/14/2023 11:30 AM EDT Orders, sleep study, insurance, facesheet and last office note faxed. * Addendum Note - Ton Dwyer APRN.CNP - 05/14/2023 10:11 AM EDTAddended by: TON DWYER on: 05/14/2023 10:11 AM Modules accepted: Orders * Telephone Encounter - Ton Dwyer APRN.CNP - 05/14/2023 10:11 AM EDT PAP orders placed, please fax. Ton Dwyer APRN.CNP * Telephone Encounter - Jeremy Barber LPN - 05/14/2023 9:56 AM EDT Patient said he is not using oxygen. * Telephone Encounter - Ton Dwyer APRN.CNP - 05/14/2023 9:46 AM EDT Is patient using Bi-Pap with oxygen? Does he need oxygen orders too? He is also overdue for an appointment to follow-up on his diabetes, please schedule soon with either provider. Ton Dwyer APRN.CNP * Telephone Encounter - Jeremy Barber LPN - 05/14/2023 9:32 AM EDT Patient was unsure of name of company but kept saying [employer]. He did not remember the name of the previous company he received supplies from. [employer] [phone] * Telephone Encounter - Gaby Nolan RN - 05/14/2023 9:06 AM EDT Reason for Disposition Health Information question, no triage required and triager able to answer question Answer Assessment - Initial Assessment Questions Pt calling, LM on nurse triage line regarding his CPAP machine. He is requesting PCP's office provide copy of CPAP orders, his sleep study, and orders for tubing/supplies. Pt did not provide any additional information. Routed to clinical pool, can you please follow-up with pt to obtain additional information regarding where he would like these orders/documents sent and further assist? Thank you! Protocols used: Information Only Call - No [id number] Routed to clinical pool, can you please follow-up with pt to obtain additional information and further assist? Thank you! documented in this encounterHolzer Health System08-16-2023 Telephone encounter Note * Telephone Encounter - Ton Dwyer APRN.CNP - 05/14/2023 9:49 AM EDT No refill until appointment, see other encounter. Ton Dwyer APRN.CNP [facility] Work Phone: [phone]) 594-391008-16-2023 Miscellaneous Notes* Telephone Encounter - Ton Dwyer APRN.CNP - 05/14/2023 9:49 AM EDT No refill until appointment, see other encounter. Ton Dwyer APRN.HARIKA * Telephone Encounter - Gaby Nolan RN - 05/14/2023 9:08 AM EDT Reason for Disposition [1] Caller has NON-URGENT medicine question about med that PCP prescribed AND [2] triager unable toanswer question Answer Assessment - Initial Assessment Questions Pt callingZITA requesting refill on his meloxicam for back pain/muscle spasms. He states that he has an appt scheduled for next week with but is wondering if this medication can be refilledat this time? Protocols used: Medication Refill and Renewal [id number] Pharmacy verified in [facility] Patient has been identified by name and date of : Yes Patient phones for refill(s): Requested Prescriptions Pending Prescriptions Disp Refills meloxicam (MOBIC) 15 mg tablet 90 tablet 1 Sig: Take 1 tablet by mouth once daily. Date of last office visit : 10/21/2022 Date of next office visit : 05/20/2023 Last 2 Encounter Wt Readings: Date: Wt: 10/21/2022 134.3 kg (296 lb) 03/07/2022 134.3 kg (296 lb) Please advise. Gaby Nolan RN documented in this encounterHolzer Health System08-16-2023 Telephone encounter Note * Telephone Encounter - Gaby Nolan RN - 05/14/2023 9:08 AM EDT Reason for Disposition [1] Caller has NON-URGENT medicine question about med that PCP prescribed AND [2] triager unable toanswer question Answer Assessment - Initial Assessment Questions Pt ZITA weiner requesting refill on his meloxicam for back pain/muscle spasms. He states that he has an appt scheduled for next week with but is wondering if this medication can be refilledat this time? Protocols used: Medication Refill and Renewal [id number] Pharmacy verified in [facility] Patient has been identified by name and date of : Yes Patient phones for refill(s): Requested Prescriptions Pending Prescriptions Disp Refills meloxicam (MOBIC) 15 mg tablet 90 tablet 1 Sig: Take 1 tablet by mouth once daily. Date of last office visit : 10/21/2022 Date of next office visit : 05/20/2023 Last 2 Encounter Wt Readings: Date: Wt: 10/21/2022 134.3 kg (296 lb) 03/07/2022 134.3 kg (296 lb) Please advise. Gaby Nolan, RN [facility]08-15-2023 Miscellaneous Notes* Telephone Encounter - Rossy Bains - 05/13/2023 4:28 PM EDT Received admission report for SOB resulting in intubation for rhinovirus from [facility]. Placed in provider's inbox for review. Route to MA scanning. documented in this encounterHolzer Health System08-15-2023 Miscellaneous Notes* Telephone Encounter - Jeremy Barber LPN - 05/13/2023 8:59 AM EDT Keiry can. * Telephone Encounter - Ton Dwyer APRN.CNP - 05/13/2023 8:[address] Matute will follow, please give verbal orders . Ton Dwyer APRN.CNP * Telephone Encounter - Martha Feliz - 05/12/2023 3:35 PM EDT Verbal orders needed for home care for OT and fdc and if the provider will follow theircare. Please call Keiry Miller at [phone] documented in this encounterHolzer Health System08-14-2023 Hospital Discharge instructions Patient Education 05/12/2023 16:21:30 Acute Respiratory Failure, Adult Acute Respiratory Failure, Adult Acute respiratory failure occurs when there is not enough oxygen passing from your lungs to your body. When this happens, your lungs have trouble removing carbon dioxide from the blood. This causes your blood oxygen level to drop too low as carbon dioxide builds up. Acute respiratory failure is a medical emergency. It can develop quickly, but it is temporary if treated promptly. Your lung capacity, or how much air your lungs can hold, may improve with time, exercise, and treatment. What are the causes? There are many possible causes of acute respiratory failure, including: Lung injury. Chest injury or damage to the ribs or tissues near the lungs. Lung conditions that affect the flow of air and blood into and out of the lungs, such as pneumonia,acute respiratory distress syndrome, and cystic fibrosis. Medical conditions, such as strokes or spinal cord injuries, that affect the muscles and nerves that control breathing. Blood infection (sepsis). Inflammation of the pancreas (pancreatitis). A blood clot in the lungs (pulmonary embolism). A large-volume blood transfusion. Velazquez. Near-drowning. Seizure. Smoke inhalation. Reaction to medicines. Alcohol or drug overdose. What increases the risk? This condition is more likely to develop in people who have: A blocked airway. Asthma. A condition or disease that damages or weakens the muscles, nerves, bones, or tissues that are involved in breathing. A serious infection. A health problem that blocks the unconscious reflex that is involved in breathing, such as hypothyroidism or sleep apnea. A lung injury or trauma. What are the signs or symptoms? Trouble breathing is the main symptom of acute respiratory failure. Symptoms may also include: Rapid breathing. Restlessness or anxiety. Skin, lips, or fingernails that appear blue (cyanosis). Rapid heart rate. Abnormal heart rhythms (arrhythmias). Confusion or changes in behavior. Tiredness or loss of energy. Feeling sleepy or having a loss of consciousness. How is this diagnosed? Your health care provider can diagnose acute respiratory failure with a medical history and physical exam. During the exam, your health care provider will listen to your heart and check for cracklingor wheezing sounds in your lungs. Your may also have tests to confirm the diagnosis and determine what is causing respiratory failure. These tests may include: Measuring the amount of oxygen in your blood (pulse oximetry). The measurement comes from a small device that is placed on your finger, earlobe, or toe. Other blood tests to measure blood gases and to look for signs of infection. Sampling your cerebral spinal fluid or tracheal fluid to check for infections. Chest X-ray to look for fluid in spaces that should be filled with air. Electrocardiogram (ECG) to look at the heart's electrical activity. How is this treated? Treatment for this condition usually takes places in a hospital intensive care unit (ICU). Treatment depends on what is causing the condition. It may include one or more treatments until your symptoms improve. Treatment may include: Supplemental oxygen. Extra oxygen is given through a tube in the nose, a face mask, or a olmos. A device such as a continuous positive airway pressure (CPAP) or bi-level positive airway pressure (BiPAP or BPAP) machine. This treatment uses mild air pressure to keep the airways open. A mask or other device will be placed over your nose or mouth. A tube that is connected to a motor will deliveroxygen through the mask. Ventilator. This treatment helps move air into and out of the lungs. This may be done with a bag and mask or a machine. For this treatment, a tube is placed in your windpipe (trachea) so air and oxygen can flow to the lungs. Extracorporeal membrane oxygenation (ECMO). This treatment temporarily takes over the function of the heart and lungs, supplying oxygen and removing carbon dioxide. ECMO gives the lungs a chance to recover. It may be used if a ventilator is not effective. Tracheostomy. This is a procedure that creates a hole in the neck to insert a breathing tube. Receiving fluids and medicines. Rocking the bed to help breathing. Follow these instructions at home: Take vfsi-leo-jiwjrww and prescription medicines only as told by your health care provider. Return to normal activities as told by your health care provider. Ask your health care provider what activities are safe for you. Keep all follow-up visits as told by your health care provider. This is important. How is this prevented? Treating infections and medical conditions that may lead to acute respiratory failure can help prevent the condition from developing. Contact a health care provider if: You have a fever. Your symptoms do not improve or they get worse. Get help right away if: You are having trouble breathing. You lose consciousness. Your have cyanosis or turn blue. You develop a rapid heart rate. You are confused. These symptoms may represent a serious problem that is an emergency. Do not wait to see if the symptoms will go away. Get medical help right away. Call your local emergency services (911 in the [place] Do not drive yourself to the hospital. This information is not intended to replace advice given to you by your health care provider. Make sure you discuss any questions you have with your health care provider. Document Released: 09/20/2014 Document Revised: 08/28/2018 Document Reviewed: 04/02/2017 [employer] Patient Education 2020 [employer]. Follow Up Care 05/05/2023 13:43:06 With:Stephanie [facility] to follow, Will call to schedule first visit Address: [place] [phone] When:1-2 days Comments:Home care Nurse With:KING MATUTE MD Address: [address] [place] [place] [address]- When:1-2 days Comments:Please call the office to schedule a follow up appointment. [facility] 08-14-2023 Note Discharge Instructions Thank you for allowing [facility] to assist you with your healthcare needs. The following is importantdischarge information regarding your hospital visit. Your Care Team KING MATUTE MD Your Diagnosis Acute respiratory failure with hypoxia Asthma exacerbation Bilateral pneumonia COPD exacerbation Paranoid schizophrenia Rhinovirus Type 2 diabetes mellitus What to do next Follow Up Appointments Follow Up with Stephanie [facility] to follow, Will call to schedule first visit When Within 1-2 days Why: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 Inhalation Soln 4 mL 90 mg 3 mL, Inhalation, QID Continuous: (0) PRN: (3) acetaminophen 325 mg Tablet 650 mg 2 tab(s), Oral, q4h albuterol - ipratropium 2.5 mg-0.5 mg/3 mL Inhal Tayla UD 3 mL, Inhalation, q4hRT loperamide 1 mg/7.5 mL Soln 1 mg 7.5 mL, Oral, 5x/Day Lab Results 05/10 05:23 WBC: 9.0 Hgb: 14.7 Hct: 44.7 Platelet: 238 Neutrophil %: 82.2 H Glucose Level: 177 H Sodium Level: 140 Potassium Level: 4.6 BUN: 19.0 Creatinine Lvl (s): 0.67 EKG No qualifying data available. Assessment/Plan 1. Acute respiratory failure with hypoxia 2. Asthma exacerbation 3. COPD exacerbation 4. Rhinovirus 5. Bilateral pneumonia 6. Type 2 diabetes mellitus 7. Paranoid schizophrenia Patient admitted to the ICU and intubated for respiratory failure, found to have pneumonia, rhinovirus, asthma/COPD exacerbation. Completed antibiotics, continues on prednisone. Pulmonology following. Wean O2 as able. History of type 2 diabetes, home medications are on hold, blood sugars reviewed and stable overall, continue ADA diet, blood sugars ACHS, sliding scale coverage. Continue home medications for schizophrenia. PT evaluated and felt he had no needs, plan for probable discharge home tomorrow. Split/shared visit with Dr. Blackwell Time Spent I spent a total of 38 minutes reviewing the patient s diagnostic labs/tests, seeing and examining the patient and documenting in the medical record, see assessment for further detail. Digitally Signed by MARCIO PRADO on 05/11/2023 01:20 PM [facility] [id number] Note Date of Service 05.11.23 Chief Complaint hypoxia Subjective This is a 42-year-old male with a history of asthma, COPD, schizophrenia, diabetes, MAXIMO, hypothyroidism who presented to the emergency department with shortness of breath. Patient apparently had beensick for about 1 week, had progressive shortness of breath. On arrival he was lethargic, febrile, hypoxic despite BiPAP in the ER. Patient was intubated and admitted to the ICU from May 05 through May 10. Patient tested positive for rhinovirus, chest x-ray on admission showed bilateral perihilar through lower lobe haziness reflecting pulmonary edema or viral pneumonia. He was found to have rhinovirus. He completed a 5-day course of Rocephin. Transition to prednisone 40 mg daily today, pulmonology planning for 5-day course. Patient is doing well today, he denies shortness of breath, no chest pain. Seen by physical therapy who stated he had no home-going needs. He was on room air upon myarrival and he was around 88-89%, 2 L of oxygen replaced and improved to 93-94%. Objective Vitals and Measurements T: 36.7 C (Oral) TMIN: 36.5 C (Oral) TMAX: 36.7 C (Oral) HR: 74(Monitored) RR: 20 BP: 119/67 SpO2: 94% Intake and Output 7AM Yesterday to 7AM Today Intake and Output (Last 24 hours) Intake Output Total Summary Total Intake 0.00 Total Output 0.00 Fluid Balance 0.00 Physical Exam Weight Dosing Weight: 124.7 kg (05/06/23) Dosing Weight: 124.7 kg (05/05/23) Vitals Signs(Last 24 hrs)__ Last Charted Minimum Maximum Temp 36.7(MAY 11 07:33) 36.7(MAY 11 07:33) 36.6(MAY 10 17:00) Heart Rate 74(MAY 11 11:00) 63(MAY 11 01:54) 74(MAY 11 11:00) Resp Rate 20(MAY 11 11:00) 16(MAY 10 17:00) H 22(MAY 11 01:54) SBP 119(MAY 11 11:00) 119(MAY 11 11:00) H 155(MAY 10 23:13) DBP 67(MAY 11 11:00) 65(MAY 10 14:00) H 91(MAY 10 19:52) Physical Exam General: No acute distress. Alert and Appropriate Skin: No rash. Warm, Dry, Intact Lungs: Bilaterally clear breath sounds with no crepitation or wheeze. Cardiovascular: Heart is regular rhythm, S1S2, No extra-audible heart tones Abdomen: Abdomen is soft, nontender. Bowel sounds positive all four quadrants. No hepatosplenomegaly noted. Extremities: No clubbing, cyanosis or edema. Neurological: The patient is awake, oriented to person, place and time. Following simple commands, moving all extremities. DVT PROPHYLAXIS-heparin Medications Medications (11) Active Scheduled: (8) budesonide 0.5 mg/2 mL Susp UD 0.5 mg 2 mL, Inhalation, BIDRT divalproex (Depakote ER) sodium 500 mg ER tablet 1,000 mg 2 tab(s), Oral, qHS divalproex (Depakote ER) sodium 500 mg ER tablet 500 mg 1 tab(s), Oral, qAM insulin lispro 100 units/mL Soln (3 mL) Give 0-10 units/dose, Subcutaneous, TIDAC levothyroxine 50 mcg tablet 50 mcg 1 tab(s), Oral, acBreakfast pantoprazole 40 mg EC tablet 40 mg 1 tab(s), Oral, qDayAC predniSONE 20 mg tablet 40 mg 2 tab(s), Oral, qDayM sodium chloride 3% Inhalation Soln 4 mL 90 mg 3 mL, Inhalation, QID Continuous: (0) PRN: (3) acetaminophen 325 mg Tablet 650 mg 2 tab(s), Oral, q4h albuterol - ipratropium 2.5 mg-0.5 mg/3 mL Inhal Tayla UD 3 mL, Inhalation, q4hRT loperamide 1 mg/7.5 mL Soln 1 mg 7.5 mL, Oral, 5x/Day Lab Results 05/10 05:23 WBC: 9.0 Hgb: 14.7 Hct: 44.7 Platelet: 238 Neutrophil %: 82.2 H Glucose Level: 177 H Sodium Level: 140 Potassium Level: 4.6 BUN: 19.0 Creatinine Lvl (s): 0.67 EKG No qualifying data available. Assessment/Plan 1. Acute respiratory failure with hypoxia 2. Asthma exacerbation 3. COPD exacerbation 4. Rhinovirus 5. Bilateral pneumonia 6. Type 2 diabetes mellitus 7. Paranoid schizophrenia Patient admitted to the ICU and intubated for respiratory failure, found to have pneumonia, rhinovirus, asthma/COPD exacerbation. Completed antibiotics, continues on prednisone. Pulmonology following. Wean O2 as able. History of type 2 diabetes, home medications are on hold, blood sugars reviewed and stable overall, continue ADA diet, blood sugars ACHS, sliding scale coverage. Continue home medications for schizophrenia. PT evaluated and felt he had no needs, plan for probable discharge home tomorrow. Split/shared visit with Dr. Blackwell Time Spent I spent a total of 38 minutes reviewing the patient s diagnostic labs/tests, seeing and examining the patient and documenting in the medical record, see assessment for further detail. Digitally Signed by MARCIO PRADO on 05/11/2023 01:20 PM [facility] [id number] Pulmonary Progress note Date of Service 05/11/2023 Subjective Transferred out of ICU yesterday, on 2 L nasal cannula. Feels okay Objective Vitals and Measurements T: 36.7 C (Oral) TMIN: 36.5 C (Oral) TMAX: 36.7 C (Oral) HR: 67(Monitored) RR: 18 BP: 131/75 SpO2: 95% Intake and Output 7AM Yesterday to 7AM Today Intake and Output (Last 24 hours) Intake Output Total Summary Total Intake 0.00 Total Output 0.00 Fluid Balance 0.00 Physical Exam General-no acute distress, alert HEENT-normocephalic, atraumatic Pulmonary-relatively clear, no wheeze Cardiovascular-regular, no appreciable murmurs, gallops or rubs Abdomen-soft, obese, bowel sounds positive Extremities-no cyanosis, clubbing or edema, he has a deformity of his right lower extremity from a remote fracture Neurologic-nonfocal Weight Dosing Weight: 124.7 kg (05/06/23) Dosing Weight: 124.7 kg (05/05/23) Medications Medications (11) Active Scheduled: (8) budesonide 0.5 mg/2 mL Susp UD 0.5 mg 2 mL, Inhalation, BIDRT divalproex (Depakote ER) sodium 500 mg ER tablet 1,000 mg 2 tab(s), Oral, qHS divalproex (Depakote ER) sodium 500 mg ER tablet 500 mg 1 tab(s), Oral, qAM insulin lispro 100 units/mL Soln (3 mL) Give 0-10 units/dose, Subcutaneous, TIDAC levothyroxine 50 mcg tablet 50 mcg 1 tab(s), Oral, acBreakfast pantoprazole 40 mg EC tablet 40 mg 1 tab(s), Oral, qDayAC Pharmacy To Dose 1 EA, Miscellaneous, Daily predniSONE 20 mg tablet 40 mg 2 tab(s), Oral, qDayM Continuous: (0) PRN: (3) acetaminophen 325 mg Tablet 650 mg 2 tab(s), Oral, q4h albuterol - ipratropium 2.5 mg-0.5 mg/3 mL Inhal Tayla UD 3 mL, Inhalation, q4hRT loperamide 1 mg/7.5 mL Soln 1 mg 7.5 mL, Oral, 5x/Day Lab Results 05/10 05:23 WBC: 9.0 Hgb: 14.7 Hct: 44.7 Platelet: 238 Neutrophil %: 82.2 H Glucose Level: 177 H Sodium Level: 140 Potassium Level: 4.6 BUN: 19.0 Creatinine Lvl (s): 0.67 EKG No qualifying data available. Assessment/Plan Acute hypoxic and acute on chronic hypercapnic respiratory failure Rhinovirus pneumonia Asthma/COPD exacerbation Possible heart failure Chronic medical problems include asthma, schizophrenia, diabetes, sleep apnea, hypothyroidism, tobacco abuse Plan: Respiratory status stable on nasal cannula. Continue home CPAP at night Completed a 5-day course of ceftriaxone for possible community-acquired pneumonia/severe COPD exacerbation. Cultures negative Continue Pulmicort and DuoNebs, completed a total of 5 days of prednisone 40 mg daily Heparin subcu for DVT prophylaxis, pantoprazole for GI prophylaxis Restart home meds Synthroid, valproic acid Tolerating oral diet Time Spent 15 minutes, will sign off Digitally Signed by AMANUEL FELIX MD on 05/11/2023 10:03 AM [id number] Respiratory therapy Hospital Progress note Respiratory Therapy Evaluation Entered On: 05/10/2023 23:33 EDT Performed On: 05/10/2023 23:32 EDT by Meagan Toney RRT Respiratory Therapy Evaluation Pulmonary Status : Non-smoker Surgical Status : No surgeries Chest X-Ray : Infiltrates, atelectasis, pleural effusion Breath Sounds (RT) : Clear Respiratory Pattern (RT) : Regular RR=12-20 Cough (RT) : Strong, productive Respiratory Therapy Evaluation Score : 4 Level of Activity : Ambulatory with assistance Mental Status : Alert, oriented RT Assessment [Frequency/Schedule] : Patient evaluates to Q4PRN 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 In the ER patient was significantly hypoxic saturating in the 80s on BiPAP in respiratory distress. He was subsequently intubated. Tested positive for rhinovirus. Transiently required vasopressors upon arrival to ICU but were weaned off after several hours. Successfully extubated on May 09 Over the past 24 hours no significant events. Lying in bed comfortably on nasal cannula. Toleratingdiet well. No acute complaints. Feels breathing is improving Objective Vitals and Measurements T: 37.0 C (Oral) TMIN: 37.0 C (Oral) TMAX: 37.4 C (Oral) HR: 66 RR: 18 BP: 151/73 SpO2: 97% Intake and Output 7AM Yesterday to 7AM Today Intake and Output (Last 24 hours) Intake Output Urinary Catheter Output: 2450.00 Total Summary Total Intake 0.00 Total Output 2450.00 Fluid Balance -2450.00 Physical Exam General: AAOx3, no distress Oral cavity: Moist Oral Mucosa Neck: No mass CVS: RRR, No murmur, Normal S1S2, no LL edema Respiratory: Equal bilateral breath sounds, no wheezing, no crackles, no accessory muscle use Abdomen: Non-tender, no guarding, no rigidity Ext: Warm to touch Neuro: No focal deficits Weight Dosing Weight: 124.7 kg (05/06/23) Dosing Weight: 124.7 kg (05/05/23) Medications Medications (11) Active Scheduled: (8) albuterol - ipratropium 2.5 mg-0.5 mg/3 mL Inhal Tayla UD 3 mL, Inhalation, q6hRT budesonide 0.5 mg/2 mL Susp UD 0.5 mg 2 mL, Inhalation, BIDRT divalproex (Depakote ER) sodium 500 mg ER tablet 1,000 mg 2 tab(s), Oral, qHS divalproex (Depakote ER) sodium 500 mg ER tablet 500 mg 1 tab(s), Oral, qAM insulin lispro 100 units/mL Soln (3 mL) Give 0-10 units/dose, Subcutaneous, TIDAC levothyroxine 50 mcg tablet 50 mcg 1 tab(s), Oral, acBreakfast pantoprazole 40 mg EC tablet 40 mg 1 tab(s), Oral, qDayAC predniSONE 20 mg tablet 40 mg 2 tab(s), Oral, qDayM Continuous: (0) PRN: (3) albuterol - ipratropium 2.5 mg-0.5 mg/3 mL Inhal Tayla UD 3 mL, Inhalation, q6hr loperamide 1 mg/7.5 mL Soln 1 mg 7.5 mL, Oral, 5x/Day ondansetron 2 mg/ 1 mL 2 mL INJ 4 mg 2 mL, IV Push, q4h Lab Results 05/10 05:23 WBC: 9.0 Hgb: 14.7 Hct: 44.7 Platelet: 238 Neutrophil %: 82.2 H Glucose Level: 177 H Sodium Level: 140 Potassium Level: 4.6 BUN: 19.0 Creatinine Lvl (s): 0.67 05/09 03:05 WBC: 8.5 Hgb: 13.7 Hct: 41.5 Platelet: 190 Neutrophil %: 90.2 H Glucose Level: 264 H Sodium Level: 137 Potassium Level: 4.7 BUN: 23.0 H Creatinine Lvl (s): 0.68 EKG No qualifying data available. Assessment/Plan SOB - Shortness of breath Orders: divalproex sodium, Start: 05/10/23 9:00:00 EDT, Dose = 500 mg, = 1 tab(s), Oral, qAM, 05/10/23 9:00:00 EDT divalproex sodium, Start: 05/09/23 22:00:00 EDT, Dose = 1,000 mg, = 2 tab(s), Oral, qHS, 05/09/23 15:53:00 EDT pantoprazole, Start: 05/10/23 6:00:00 EDT, Dose = 40 mg, = 1 tab(s), Oral, qDayAC, 05/10/23 6:00:00EDT Assessment Acute hypoxic and acute on chronic hypercapnic respiratory failure Rhinovirus pneumonia Asthma/COPD exacerbation Possible heart failure Chronic medical problems include asthma, schizophrenia, diabetes, sleep apnea, hypothyroidism, tobacco abuse Plan Respiratory status stable on nasal cannula. Continue CPAP at night when sleeping. Patient will bring in home unit to see his home settings Continue 5 days of ceftriaxone for possible community-acquired pneumonia/severe COPD exacerbation. Follow-up on cultures DuoNebs, budesonide and transition to prednisone 40 mg daily for 5 days more Heparin subcu for DVT prophylaxis, pantoprazole for GI prophylaxis Restart home meds Synthroid, valproic acid Tolerating oral diet Okay to transfer out of ICU with pulmonary to follow Digitally Signed by SCOTTY WATSON MD on 05/10/2023 11:58 AM [id number] Note Date of Service 05/09/2023 Subjective 42 male past medical history asthma, schizophrenia, diabetes, sleep apnea, hypothyroidism, tobacco abuse presented to ER for worsening shortness of breath for over 1 week. In the ER patient was significantly hypoxic saturating in the 80s on BiPAP in respiratory distress. He was subsequently intubated. Tested positive for rhinovirus. Transiently required vasopressors upon arrival to ICU but were weaned off after several hours. Over the past 24 hours no significant events. Patient is doing well on his CPAP trial this morning.Secretion burden improving Objective Objective Vitals and Measurements T: 36.4 C (Oral) TMIN: 36.4 C (Oral) TMAX: 37.1 C (Oral) HR: 52 RR: 20 BP: 131/74 BP: 108/62(Supine) SpO2: 96% Intake and Output 7AM Yesterday to 7AM Today Intake and Output (Last 24 hours) Intake Tube Feeding Intake 615.00 Administration Information 586.70 Output Urinary Catheter Output: 2900.00 Stool Count 0.00 Total Summary Total Intake 1201.70 Total Output 2900.00 Fluid Balance -1698.30 Physical Exam General: Awake on mechanical ventilation Oral cavity: Endotracheally intubated Neck: No mass CVS: RRR, No murmur, Normal S1S2, mild LL edema Respiratory: Coarse bilateral breath sounds, b/l wheezing, bilateral crackles, no accessory muscle use Abdomen: Non-tender, no guarding, no rigidity, normal bowel sounds Ext: Warm to touch Neuro: Following commands moving all 4 extremities Weight Dosing Weight: 124.7 kg (05/06/23) Dosing Weight: 124.7 kg (05/05/23) Medications Medications (15) Active Scheduled: (7) albuterol - ipratropium 2.5 mg-0.5 mg/3 mL Inhal Tayla UD 3 mL, Inhalation, q6hRT budesonide 0.5 mg/2 mL Susp UD 0.5 mg 2 mL, Inhalation, BIDRT esomeprazole [address] capsule 40 mg 1 cap(s), Nasogastric, acBreakfast heparin 5,000 units/mL (1 mL) vial 5,000 unit(s) 1 mL, Subcutaneous, q8h levothyroxine 50 mcg tablet 50 mcg 1 tab(s), Oral, acBreakfast methylPREDNISolone succ 40mg (40 mg/1mL) after dilution 40 mg 1 mL, IV Push, q12h valproate sodium 500 mg 5 mL, IV Piggyback, TID Continuous: (4) dexmedetomidine 400 mcg [0.2 mcg/kg/hr] + Sodium Chloride 0.9% 96 mL 96 mL, Intravenous, 6.24 mL/hr fentaNYL 1,250 mcg [25 mcg/hr] + NS Premix Diluent 250 mL 250 mL, Intravenous, 5 mL/hr insulin regular 100 unit(s) + NS Premix Diluent 100 mL 100 mL, Intravenous norepinephrine 8 mg [5 mcg/min] + NS Premix Diluent 250 mL 250 mL, Intravenous, 9.38 mL/hr PRN: (4) albuterol - ipratropium 2.5 mg-0.5 mg/3 mL Inhal Tayla UD 3 mL, Inhalation, q6hr dextrose 50% Solution Disp syringe 50 mL 25 g 50 mL, IV Push, AsDirected insulin regular human recombinant 100 units/mL (3 mL) Soln sliding scale insulin, Subcutaneous, q4h ondansetron 2 mg/ 1 mL 2 mL INJ 4 mg 2 mL, IV Push, q4h Lab Results 05/09 03:05 WBC: 8.5 Hgb: 13.7 Hct: 41.5 Platelet: 190 Neutrophil %: 90.2 H Glucose Level: 264 H Sodium Level: 137 Potassium Level: 4.7 BUN: 23.0 H Creatinine Lvl (s): 0.68 05/08 04:38 WBC: 6.5 Hgb: 13.3 Hct: 41.0 Platelet: 174 Neutrophil %: 88.0 H Glucose Level: 292 H Sodium Level: 135 L Potassium Level: 4.7 BUN: 19.0 Creatinine Lvl (s): 0.62 EKG No qualifying data available. Assessment/Plan SOB - Shortness of breath Orders: Activity as tolerated Bedside Commode (CS supply) Consult to Physical Therapy CPAP Phosphorus Level Assessment Acute hypoxic and acute on chronic hypercapnic respiratory failure Rhinovirus pneumonia Asthma/COPD exacerbation Possible heart failure Chronic medical problems include asthma, schizophrenia, diabetes, sleep apnea, hypothyroidism, tobacco abuse Plan Patient doing well on CPAP trial. Extubate to CPAP Continue 5 days of ceftriaxone for possible community-acquired pneumonia/severe COPD exacerbation. Follow-up on cultures DuoNebs, budesonide and transition to prednisone 40 mg daily for 5 days more Lasix 40 mg IV x 2 doses today Heparin subcu for DVT prophylaxis, pantoprazole for GI prophylaxis Restart home meds Synthroid, valproic acid Swallow evaluation after extubation and start on oral diet 35 minutes critical care time Digitally Signed by SCOTTY WATSON MD on 05/09/2023 01:07 PM [id number] Note ORIGINAL EXAMINATION: ONE XRAY VIEW OF THE CHEST05/09/2023 7:18 am COMPARISON: 05/08/2023 HISTORY: ORDERING SYSTEM PROVIDED HISTORY: Reason for Exam: ETT FINDINGS: Similar position of the endotracheal tube and enteric tube. The cardiomediastinal silhouette is stable. Low lung volumes. Slight interval worsening of central vascular congestion and interstitial prominence. No large pleural effusion. No pneumothorax. IMPRESSION: Slight interval worsening of pulmonary edema. Preliminary Report was Dictated by a Resident Interpreted by: Jon Mena MD Preliminary Report By: Anselmo Foreman Electronically signed By Jon Mena MD Dictated Date: 05/09/2023 7:49:15 AM Prelim Date: 05/09/2023 7:50:54 AM Sign Date: 05/09/2023 8:10:19 AM Ordering Provider: [facility]08-10-2023 Note Date of Service 05/08/2023 Subjective 42 male past medical history asthma, schizophrenia, diabetes, sleep apnea, hypothyroidism, tobacco abuse presented to ER for worsening shortness of breath for over 1 week. In the ER patient was significantly hypoxic saturating in the 80s on BiPAP in respiratory distress. He was subsequently intubated. Tested positive for rhinovirus. Transiently required vasopressors upon arrival to ICU but were weaned off after several hours. Over the past 24 hours no significant events. Patient still appears volume overloaded. He is awake on CPAP mode tolerating it well. Continues to have thick secretions Objective Vitals and Measurements T: 36.7 C (Oral) TMIN: 36.6 C (Oral) TMAX: 37.7 C (Oral) HR: 55(Monitored) RR: 21 BP: 147/81 SpO2: 96% Intake and Output 7AM Yesterday to 7AM Today Intake and Output (Last 24 hours) Intake Tube Feeding Intake 585.00 Administration Information 880.00 Output Urinary Catheter Output: 4225.00 Total Summary Total Intake 1465.00 Total Output 4225.00 Fluid Balance -2760.00 Physical Exam General: Awake on mechanical ventilation Oral cavity: Endotracheally intubated Neck: No mass CVS: RRR, No murmur, Normal S1S2, bilateral LL edema Respiratory: Coarse bilateral breath sounds, b/l wheezing, bilateral crackles, no accessory muscle use Abdomen: Non-tender, no guarding, no rigidity, normal bowel sounds Ext: Warm to touch Neuro: Following commands moving all 4 extremities Weight Dosing Weight: 124.7 kg (05/06/23) Dosing Weight: 124.7 kg (05/05/23) Medications Medications (24) Active Scheduled: (12) albuterol - ipratropium 2.5 mg-0.5 mg/3 mL Inhal Tayla UD 3 mL, Inhalation, q6hRT budesonide 0.5 mg/2 mL Susp UD 0.5 mg 2 mL, Inhalation, BIDRT cefTRIAXone IVP syringe 2 g 20 mL, IV Push (INT), qDay chlorhexidine topical 0.12% Liquid (60 mL) 15 mL, Swish & Spit, QID esomeprazole [address] capsule 40 mg 1 cap(s), Nasogastric, acBreakfast furosemide 40 mg/4 mL vial 40 mg 4 mL, IV Push, BID heparin 5,000 units/mL (1 mL) vial 5,000 unit(s) 1 mL, Subcutaneous, q8h levothyroxine 50 mcg tablet 50 mcg 1 tab(s), Oral, acBreakfast methylPREDNISolone succ 40mg (40 mg/1mL) after dilution 40 mg 1 mL, IV Push, q8h ocular lubricant - Ointment 3.5 gram(s) 1 kemi, Eyes, both, q8h ocular lubricant preserved Soln 15 mL 1 drop(s), Eyes, both, q8h valproate sodium 500 mg 5 mL, IV Piggyback, TID Continuous: (5) dexmedetomidine 400 mcg [0.2 mcg/kg/hr] + Sodium Chloride 0.9% 96 mL 96 mL, Intravenous, 6.24 mL/hr fentaNYL 1,250 mcg [25 mcg/hr] + NS Premix Diluent 250 mL 250 mL, Intravenous, 5 mL/hr insulin regular 100 unit(s) + NS Premix Diluent 100 mL 100 mL, Intravenous norepinephrine 8 mg [5 mcg/min] + NS Premix Diluent 250 mL 250 mL, Intravenous, 9.38 mL/hr propofol 1,000 mg [10 mcg/kg/min] + IV Premix Diluent 100 mL 100 mL, Intravenous, 7.48 mL/hr PRN: (7) albuterol - ipratropium 2.5 mg-0.5 mg/3 mL Inhal Tayla UD 3 mL, Inhalation, q6hr dextrose 50% Solution Disp syringe 50 mL 25 g 50 mL, IV Push, AsDirected fentaNYL 50 mcg/mL (2mL) ampule 25 mcg 0.5 mL, IV Push, q15min insulin regular human recombinant 100 units/mL (3 mL) Soln sliding scale insulin, Subcutaneous, q4h ocular lubricant - Ointment 3.5 gram(s) 1 kemi, Eyes, both, AsDirected ocular lubricant preserved Soln 15 mL 1 drop(s), Eyes, both, AsDirected ondansetron 2 mg/ 1 mL 2 mL INJ 4 mg 2 mL, IV Push, q4h Lab Results 05/08 04:38 WBC: 6.5 Hgb: 13.3 Hct: 41.0 Platelet: 174 Neutrophil %: 88.0 H Glucose Level: 292 H Sodium Level: 135 L Potassium Level: 4.7 BUN: 19.0 Creatinine Lvl (s): 0.62 05/07 04:21 WBC: 9.5 Hgb: 12.4 L Hct: 38.2 L Platelet: 221 Neutrophil %: 77.2 H Glucose Level: 156 H Sodium Level: 143 Potassium Level: 3.9 BUN: 23.0 H Creatinine Lvl (s): 0.83 EKG EKG - Completed -- 05/06/23 6:00:00 EDT Assessment/Plan SOB - Shortness of breath Orders: Respiratory Therapy Communication Order (Scheduled) Assessment Acute hypoxic and acute on chronic hypercapnic respiratory failure Rhinovirus pneumonia Asthma/COPD exacerbation Possible heart failure Chronic medical problems include asthma, schizophrenia, diabetes, sleep apnea, hypothyroidism, tobacco abuse Plan Continue mechanical ventilation with ventilator bundle. Wean oxygen to obtain saturation more than 90%. Patient still too volume overloaded and continues to have thick secretions preclude safe extubation Continue 5 days of ceftriaxone for possible community-acquired pneumonia/severe COPD exacerbation. Follow-up on cultures DuoNebs, budesonide and Solu-Medrol 40 mg every 12 hours Lasix 40 mg IV x 2 doses today Heparin subcu for DVT prophylaxis, pantoprazole for GI prophylaxis Restart home meds Synthroid, valproic acid Start tube feed 35 minutes critical care time Digitally Signed by SCOTTY WATSON MD on 05/08/2023 12:45 PM [id number] Note ORIGINAL EXAMINATION: ONE XRAY VIEW OF THE CHEST05/08/2023 6:24 am COMPARISON: 05/07/2023 HISTORY: ORDERING SYSTEM PROVIDED HISTORY: Reason for Exam: ventilator FINDINGS: Stable position of the endotracheal tube and enteric tube. The cardiomediastinal silhouette is stable. Slight central vascular prominence. Interval improvement/near complete resolution of interstitial prominence. No significant volume pleural effusion. No pneumothorax. IMPRESSION: Interval improvement/near complete resolution of pulmonary edema. Preliminary Report was Dictated by a Resident Interpreted by: Jon Mena MD Preliminary Report By: Anselmo Foreman Electronically signed By Jon Mena MD Dictated Date: 05/08/2023 6:59:46 AM Prelim Date: 05/08/2023 7:02:21 AM Sign Date: 05/08/2023 8:08:40 AM Ordering Provider: [facility]08-09-2023 Note* Exam Date Time Procedure Performing Provider Status 05/07/23 5:31 PM Echocardiogram, Adult - CV Auth (Verified) [facility] 08-09-2023 Note ORIGINAL EXAMINATION: ONE XRAY VIEW OF THE CHEST 05/07/2023 6:21 am COMPARISON: None. HISTORY: ORDERING SYSTEM PROVIDED HISTORY: Reason for Exam: ventilator FINDINGS: Endotracheal tube is positioned 4 cm above the ying. Enteric tube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 mouth three times daily as needed. RUBY: No MONTELUKAST 10 MG TABLET 180 tablet 1 Sig: Take 1 tablet by mouth daily at bedtime. RUBY: No RX INSTRUCTIONS: Please send by 11/21/21. Patient aware RX will be sent to pharmacy. No need to notify patient. Joycelyn Torres Pss documented in this encounterHolzer Health System05-15-2018 History of Past illness Narrative* Problem Noted Date Resolved Date Osteomyelitis of right tibia 02/10/2018 Vitamin D deficiency 12/30/2017 08/07/2020 Osteomyelitis 11/27/2017 2017 Osteomyelitis of right tibia 11/26/2017 Overview: Added automatically from request for surgery [id number] documented as of this encounter (statuses as of 11/19/2021) [facility] Narrative* Problem Noted Date Resolved Date Osteomyelitis of right tibia 02/10/2018 Vitamin D deficiency 12/30/2017 08/07/2020 Osteomyelitis 11/27/2017 2017 Osteomyelitis of right tibia 11/26/2017 Overview: Added automatically from request for surgery [id number] documented as of this encounter (statuses as of 02/11/2022) [facility] Narrative* Problem Noted Date Resolved Date Osteomyelitis of right tibia 02/10/2018 Vitamin D deficiency 12/30/2017 08/07/2020 Osteomyelitis 11/27/2017 2017 Osteomyelitis of right tibia 11/26/2017 Overview: Added automatically from request for surgery [id number] documented as of this encounter (statuses as of 03/18/2022) [facility] Narrative* Problem Noted Date Resolved Date Osteomyelitis of right tibia 02/10/2018 Vitamin D deficiency 12/30/2017 08/07/2020 Osteomyelitis 11/27/2017 2017 Osteomyelitis of right tibia 11/26/2017 Overview: Added automatically from request for surgery [id number] documented as of this encounter (statuses as of 08/19/2022) [facility] Narrative* Problem Noted Date Resolved Date Osteomyelitis of right tibia 02/10/2018 Vitamin D deficiency 12/30/2017 08/07/2020 Osteomyelitis 11/27/2017 2017 Osteomyelitis of right tibia 11/26/2017 Overview: Added automatically from request for surgery [id number] documented as of this encounter (statuses as of 09/11/2022) [facility] Narrative* Problem Noted Date Resolved Date Osteomyelitis of right tibia 02/10/2018 Vitamin D deficiency 12/30/2017 08/07/2020 Osteomyelitis 11/27/2017 2017 Osteomyelitis of right tibia 11/26/2017 Overview: Added automatically from request for surgery [id number] documented as of this encounter (statuses as of 09/18/2022) [facility] Narrative* Problem Noted Date Resolved Date Osteomyelitis of right tibia 02/10/2018 Vitamin D deficiency 12/30/2017 08/07/2020 Osteomyelitis 11/27/2017 2017 Osteomyelitis of right tibia 11/26/2017 Overview: Added automatically from request for surgery [id number] documented as of this encounter (statuses as of 10/07/2022) [facility] Narrative* Problem Noted Date Resolved Date Osteomyelitis of right tibia 02/10/2018 Vitamin D deficiency 12/30/2017 08/07/2020 Osteomyelitis 11/27/2017 2017 Osteomyelitis of right tibia 11/26/2017 Overview: Added automatically from request for surgery [id number] documented as of this encounter (statuses as of 10/22/2022) [facility] Narrative* Problem Noted Date Resolved Date Osteomyelitis of right tibia 02/10/2018 Vitamin D deficiency 12/30/2017 08/07/2020 Osteomyelitis 11/27/2017 2017 Osteomyelitis of right tibia 11/26/2017 Overview: Added automatically from request for surgery [id number] documented as of this encounter (statuses as of 10/23/2022) [facility] Narrative* Problem Noted Date Resolved Date Osteomyelitis of right tibia 02/10/2018 Vitamin D deficiency 12/30/2017 08/07/2020 Osteomyelitis 11/27/2017 2017 Osteomyelitis of right tibia 11/26/2017 Overview: Added automatically from request for surgery [id number] documented as of this encounter (statuses as of 11/25/2022) [facility] N[facility]* Problem Noted Date Resolved Date Osteomyelitis of right tibia 02/10/2018 Vitamin D deficiency 12/30/2017 08/07/2020 Osteomyelitis 11/27/2017 2017 Osteomyelitis of right tibia 11/26/2017 Overview: Added automatically from request for surgery [id number] documented as of this encounter (statuses as of 01/06/2023) [facility] N[facility]* Problem Noted Date Resolved Date Osteomyelitis of right tibia 02/10/2018 Vitamin D deficiency 12/30/2017 08/07/2020 Osteomyelitis 11/27/2017 2017 Osteomyelitis of right tibia 11/26/2017 Overview: Added automatically from request for surgery [id number] documented as of this encounter (statuses as of 01/07/2023) [facility] Narrative* Problem Noted Date Diagnosed Date Resolved Date Osteomyelitis of right tibia 02/10/2018 11/13/2018 Vitamin D deficiency 12/30/2017 020 Osteomyelitis 11/27/2017 2017 Osteomyelitis of right tibia 11/26/2017 02/10/2018 Overview: Added automatically from request for surgery [id number] documented as of this encounter (statuses as of 05/13/2023) [facility]arr[facility]* Problem Noted Date Diagnosed Date Resolved Date Osteomyelitis of right tibia 02/10/2018 11/13/2018 Vitamin D deficiency 12/30/2017 020 Osteomyelitis 11/27/2017 2017 Osteomyelitis of right tibia 11/26/2017 02/10/2018 Overview: Added automatically from request for surgery [id number] documented as of this encounter (statuses as of 05/14/2023) [facility]* Problem Noted Date Diagnosed Date Resolved Date Osteomyelitis of right tibia 02/10/2018 11/13/2018 Vitamin D deficiency 12/30/2017 020 Osteomyelitis 11/27/2017 2017 Osteomyelitis of right tibia 11/26/2017 02/10/2018 Overview: Added automatically from request for surgery [id number] documented as of this encounter (statuses as of 05/14/2023) [facility]* Problem Noted Date Diagnosed Date Resolved Date Osteomyelitis of right tibia 02/10/2018 11/13/2018 Vitamin D deficiency 12/30/2017 020 Osteomyelitis 11/27/2017 2017 Osteomyelitis of right tibia 11/26/2017 02/10/2018 Overview: Added automatically from request for surgery [id number] documented as of this encounter (statuses as of 05/16/2023) [facility]* Problem Noted Date Diagnosed Date Resolved Date Osteomyelitis of right tibia 02/10/2018 11/13/2018 Vitamin D deficiency 12/30/2017 020 Osteomyelitis 11/27/2017 2017 Osteomyelitis of right tibia 11/26/2017 02/10/2018 Overview: Added automatically from request for surgery [id number] documented as of this encounter (statuses as of 05/19/2023) [facility]* Problem Noted Date Diagnosed Date Resolved Date Osteomyelitis of right tibia 02/10/2018 11/13/2018 Vitamin D deficiency 12/30/2017 020 Osteomyelitis 11/27/2017 2017 Osteomyelitis of right tibia 11/26/2017 02/10/2018 Overview: Added automatically from request for surgery [id number] documented as of this encounter (statuses as of 06/17/2023) [facility]* Problem Noted Date Diagnosed Date Resolved Date Osteomyelitis of right tibia 02/10/2018 11/13/2018 Vitamin D deficiency 12/30/2017 020 Osteomyelitis 11/27/2017 2017 Osteomyelitis of right tibia 11/26/2017 02/10/2018 Overview: Added automatically from request for surgery [id number] documented as of this encounter (statuses as of 06/29/2023) [facility]* Problem Noted Date Diagnosed Date Resolved Date Osteomyelitis of right tibia 02/10/2018 11/13/2018 Vitamin D deficiency 12/30/2017 020 Osteomyelitis 11/27/2017 2017 Osteomyelitis of right tibia 11/26/2017 02/10/2018 Overview: Added automatically from request for surgery [id number] documented as of this encounter (statuses as of 07/04/2023) [facility]* Problem Noted Date Diagnosed Date Resolved Date Osteomyelitis of right tibia 02/10/2018 11/13/2018 Vitamin D deficiency 12/30/2017 020 Osteomyelitis 11/27/2017 2017 Osteomyelitis of right tibia 11/26/2017 02/10/2018 Overview: Added automatically from request for surgery [id number] documented as of this encounter (statuses as of 08/06/2023) [facility]* Problem Noted Date Diagnosed Date Resolved Date Osteomyelitis of right tibia 02/10/2018 11/13/2018 Vitamin D deficiency 12/30/2017 020 Osteomyelitis 11/27/2017 2017 Osteomyelitis of right tibia 11/26/2017 02/10/2018 Overview: Added automatically from request for surgery [id number] documented as of this encounter (statuses as of 08/07/2023) [facility]* Problem Noted Date Diagnosed Date Resolved Date Osteomyelitis of right tibia 02/10/2018 11/13/2018 Vitamin D deficiency 12/30/2017 020 Osteomyelitis 11/27/2017 2017 Osteomyelitis of right tibia 11/26/2017 02/10/2018 Overview: Added automatically from request for surgery [id number] documented as of this encounter (statuses as of 08/12/2023) [place] [address]-15-2018 History of Past illness Narrative* Problem Noted Date Diagnosed Date Resolved Date Osteomyelitis of right tibia 02/10/2018 11/13/2018 Vitamin D deficiency 12/30/2017 020 Osteomyelitis 11/27/2017 2017 Osteomyelitis of right tibia 11/26/2017 02/10/2018 Overview: Added automatically from request for surgery [id number] documented as of this encounter (statuses as of 08/12/2023) [facility]* Problem Noted Date Diagnosed Date Resolved Date Osteomyelitis of right tibia 02/10/2018 11/13/2018 Vitamin D deficiency 12/30/2017 020 Osteomyelitis 11/27/2017 2017 Osteomyelitis of right tibia 11/26/2017 02/10/2018 Overview: Added automatically from request for surgery [id number] documented as of this encounter (statuses as of 08/26/2023) [facility]* Problem Noted Date Diagnosed Date Resolved Date Osteomyelitis of right tibia 02/10/2018 11/13/2018 Vitamin D deficiency 12/30/2017 020 Osteomyelitis 11/27/2017 2017 Osteomyelitis of right tibia 11/26/2017 02/10/2018 Overview: Added automatically from request for surgery [id number] documented as of this encounter (statuses as of 11/26/2023) [facility]* Problem Noted Date Diagnosed Date Resolved Date Osteomyelitis of right tibia 02/10/2018 11/13/2018 Vitamin D deficiency 12/30/2017 020 Osteomyelitis 11/27/2017 2017 Osteomyelitis of right tibia 11/26/2017 02/10/2018 Overview: Added automatically from request for surgery [id number] documented as of this encounter (statuses as of 12/10/2023) [facility]* Problem Noted Date Diagnosed Date Resolved Date Osteomyelitis of right tibia 02/10/2018 11/13/2018 Vitamin D deficiency 12/30/2017 020 Osteomyelitis 11/27/2017 2017 Osteomyelitis of right tibia 11/26/2017 02/10/2018 Overview: Added automatically from request for surgery [id number] documented as of this encounter (statuses as of 12/12/2023) [facility] History of Past illness Narrative* Problem Noted Date Diagnosed Date Resolved Date Osteomyelitis of right tibia 02/10/2018 11/13/2018 Vitamin D deficiency 12/30/2017 020 Osteomyelitis 11/27/2017 2017 Osteomyelitis of right tibia 11/26/2017 02/10/2018 Overview: Added automatically from request for surgery [id number] documented as of this encounter (statuses as of 12/30/2023) [facility] History of Past illness Narrative* Problem Noted Date Diagnosed Date Resolved Date Osteomyelitis of right tibia 02/10/2018 11/13/2018 Vitamin D deficiency 12/30/2017 020 Osteomyelitis 11/27/2017 2017 Osteomyelitis of right tibia 11/26/2017 02/10/2018 Overview: Added automatically from request for surgery [id number] documented as of this encounter (statuses as of 12/31/2023) [facility] Diagnosis Acute right-sided low back pain without sciatica Type 2 diabetes mellitus without complication, without long-term current use of insulin ([facility]) Lumbar paraspinal muscle spasm Other symptoms referable to back Seasonal allergic rhinitis due to pollen Allergic conjunctivitis of both eyes Other chronic allergic conjunctivitis [facility] Diagnosis Type 2 diabetes mellitus without complication, without long-term current use of insulin (HCC)- Primary Hyperlipidemia, mixed Mixed hyperlipidemia Screening for lipid disorders Acquired hypothyroidism Unspecified hypothyroidism Long-term use of high-risk medication Schizophrenia, unspecified type ([facility]) documented in this encounter [facility] note* Diagnosis BMI 50.0-59.9, adult (HCC)- Primary Body Mass Index 50.0-59.9, adult Acute right-sided low back pain without sciatica Vitamin D insufficiency Unspecified vitamin D deficiency Type 2 diabetes mellitus without complication, without long-term current use of insulin (HCC) Hyperlipidemia, mixed Mixed hyperlipidemia Obstructive sleep apnea Obstructive sleep apnea (adult) (pediatric) Encounter for immunization Need for other specified prophylactic vaccination against single bacterial disease documented in this encounter [facility] note* Diagnosis Vitamin D insufficiency Unspecified vitamin D deficiency documented in this encounter [facility] noteNo assessment information availableWSt. Mary's [facility] Work Phone: Evaluation note* Diagnosis Obstructive sleep apnea- Primary Obstructive sleep apnea (adult) (pediatric) documented in this encounter [facility] note* Diagnosis Obstructive sleep apnea- Primary Obstructive sleep apnea (adult) (pediatric) documented in this encounter [facility] note* Diagnosis Type 2 diabetes mellitus without complication, without long-term current use of insulin ([facility])- Primary documented in this encounter [facility] note* Diagnosis Cellulitis and abscess of right lower extremity- Primary Encounter for screening for osteoporosis Special screening for osteoporosis Pathological fracture of both tibia and fibula of right lower extremity, unspecified pathological cause, initial encounter Other specified disorders of bone density and structure, right lower leg Ventral hernia without obstruction or gangrene Ventral hernia, unspecified, without mention of obstruction or gangrene Left inguinal hernia Inguinal hernia without mention of obstruction or gangrene, unilateral or unspecified, (not specified as recurrent) Type 2 diabetes mellitus without complication, without long-term current use of insulin (HCC) Hyperlipidemia, mixed Mixed hyperlipidemia Acquired hypothyroidism Unspecified hypothyroidism Vitamin D deficiency Unspecified vitamin D deficiency documented in this encounter [facility] note* Diagnosis Vitamin D insufficiency Unspecified vitamin D deficiency documented in this encounter [facility] note* Diagnosis Abrasion of right hand, initial encounter- Primary Closed nondisplaced fracture of proximal phalanx of right ring finger, initial encounter Foreign body of left ring finger documented in this encounter [facility] note* Diagnosis Acute right-sided low back pain without sciatica documented in this encounter [facility] note* Diagnosis Pyogenic arthritis of left hand, due to unspecified organism (HCC) Hand abscess Cellulitis and abscess of hand, except fingers and thumb Pyogenic arthritis of hand, due to unspecified organism, unspecified laterality (HCC) senior living (current) use of antibiotics Pyogenic arthritis of left hand, due to unspecified organism (HCC) documented in this encounter [facility] note* Diagnosis Right leg pain- Primary Pain in soft tissues of limb documented in this encounter [facility] note* Diagnosis 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- Primary Displaced oblique fracture of shaft of right tibia, subsequent encounter for closed fracture with nonunion documented in this encounter [facility] note* Diagnosis Right leg pain Pain in soft tissues of limb Displaced oblique fracture of shaft of right tibia, subsequent encounter for closed fracture with nonunion documented in this encounter [facility] note* Diagnosis 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- Primary 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 Chronic osteomyelitis ([facility]/HCC) ([facility]) Type 2 diabetes mellitus with other circulatory complications ([facility]) Displaced oblique fracture of shaft of right tibia, subsequent encounter for closed fracture with nonunion Below-knee amputation of right lower extremity, initial encounter ([facility]) documented in this encounter [facility] note* Diagnosis Below-knee amputation of right lower extremity, initial encounter ([facility]) documented in this encounter [facility] note* Diagnosis Below-knee amputation of right lower extremity, initial encounter ([facility])- Primary documented in this encounter [facility] note* Diagnosis Below-knee amputation of right lower extremity, initial encounter ([facility])- Primary documented in this encounter [facility] note* Diagnosis Below-knee amputation of right lower extremity, initial encounter ([facility])- Primary 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 * Care for a Skin Wound: Video ([place]) * Abrasions ([place]) * Splint or Immobilizer Use ([place]) [facility] instructionsAdditional Instructions Ibuprofen as needed for [facility] Work Phone: Progress note No data available for this section [facility] Reason for referral (narrative)No reason for referral information availableWSt. Mary's Medical Center Work Phone: Reason for visit Narrative* Auth/Cert (Routine) Specialty Diagnoses / Procedures Referred By Karan t Referred To Contact Diagnoses Displaced oblique fracture of shaft of right tibia, subsequent encounter for closed fracture with nonunion [id number] Procedures SD AMP LEG THRU TIBIA&FIBULA SEC CLOSURE/SCAR REV RIGHT BELOW KNEE AMPUTATION Patti Durant MD [address] [facility] [address] [place] [id number] Phone: tel: fax: Referral ID Status Reason Start Date Expiration Date Visits Re quested Visits Authorized [id number] 11/25/2024 1 1 [facility] note* MARIE Bone: PERFORM Event Display: Patient Summary Documents Authored Date: [id number] [facility] [employer] note* MARIE Bone: PERFORM Event Display: Patient Summary Documents Authored Date: [id number] [facility] Summary Purpose Family History No Family History Records FoundNo Family History Records FoundNo Family History Records Found No data available for this section No Family History Records Found No data available for this section No data available for this section No data available for this section No data available for this section No Family History Records FoundNo Family History Records Found No data available for this section No Family History Records Found No data available for this section No data available for this section No data available for this section No data available for this section No Family History Records FoundNo Family History Records FoundNo Family History Records FoundNo Family History Records FoundNo Family History Records FoundNo Family History Records Found Advance Directives No Advanced Directives Records FoundDocuments on File Type Date Recorded Patient Board Attendant Expl anation Advance Directive(s) 11/26/2017 8:48 PM Advance Directive Response Recorded Date/ Time Living Will No April 13, 2023 4:40pm Power of Harness Preparer No April 13 4:40pm Advance Directive Response Recorded Date/ Time Living Will No July 21 7:18pm Power of Harness Preparer No July 21, 2023 7:18pm Advance Directive Response Recorded Date/ Time Living Will No August 03 9:33pm Power of Harness Preparer No August 03, 2023 9:33pm Advance Directive Response Recorded Date/ Time Living Will No August 25, 2 023 1:41pm Power of Harness Preparer No August 25, 2023 1:41pm Advance Directive Response Recorded Date/ Time Living Will No August 25, 2 023 8:24pm Power of Harness Preparer No August 25, 2023 8:24pm Advance Directive Response Recorded Date/ Time Living Will No December 26, 2023 9:22pm Power of Harness Preparer No December 25 9:22pm Latest Code Status on File Code Status Date Activated Date Inactivated Comments Full Code 02/16/2017 9:41 PM 02/26/2017 3:02 PM Code Status History Code Status Date Activated Date Inactivated Comments Full Code 02/14/2017 5:18 PM 02/16/2017 9:41 PM Advance Directive Response Recorded Date/ Time Living Will No January 23, 2024 7:17pm Power of Harness Preparer No January 22 7:17pm Latest Code Status on File Code Status Date Activated Date Inactivated Comments Full Code 02/25/2024 7:05 AM 03/02/2024 1:58 PM Date Activated Date Inactivated Comments 02/25/2024 7:05 AM 03/02/2024 1:58 PM Date Activated Date Inactivated Comments 12/02/2024 2:23 PM 12/06/2024 5:39 PM Date Activated Date Inactivated Comments 02/25/2024 7:05 AM 03/02/2024 1:58 PM Documents on File Type Date Recorded Patient Board Attendant Expl anation Legal Guardianship 12/07/2024 10:51 AM Date Activated Date Inactivated Comments 12/02/2024 2:23 PM 12/06/2024 5:39 PM Date Activated Date Inactivated Comments 02/25/2024 7:05 AM 03/02/2024 1:58 PM Advance Directive Response Recorded Date/ Time Do you have a Healthcare Power of Harness Preparer? No June 13, 2025 7:25pm Chief Complaint and Reason for Visit Chief Complaint MENTAL HEALTH Chief Complaint MENTAL HEALTH MENTAL HEALTH Chief Complaint MENTAL HEALTH MENTAL HEALTH MENTAL HEALTH Chief Complaint MENTAL HEALTH MENTAL HEALTH LEG WOUND Chief Complaint MENTAL HEALTH MENTAL HEALTH LEG WOUND mental health Chief Complaint mental fall Chief Complaint mental fall MENTAL HEALTH Chief Complaint Admit Date LAB WORK April 12, 2025 5:00 am [facility] LAB WORK April 28, 2025 5: 00am [facility] June 13, 2025 6:07pm Health Concerns Infection Onset Date Last Indicated Resolved Time COVID-19 Confirmed 08/25/2023 08/25/2023 Reason for Referral Specialty Diagnoses / Procedures Referred By Karan t Referred To Contact Randy Drummond MD [address] [place] [address] Referral ID Status Reason Start Date Expiration Date V isits Requested Visits Authorized [id number] Pending Review 1 1 Additional Source Comments (unrecognized sect ion and content) No Status Records FoundNo Status Records FoundNo Status Records FoundNo Status Records FoundNo Status Records FoundNo Status Records FoundNo Status Records FoundNo Status Records FoundNo Status Records FoundNo Status Records FoundNo Status Records FoundNo Status Records FoundNo Status Records Found INFORMATION SOURCE (unrecogn ized section and content) DATE CREATED AUTHOR 04/15/2018 [facility] DATE CREATED AUTHOR AUTHOR'S ORGANIZ ATION 07/27/2019 [facility] DATE CREATED AUTHOR AUTHOR'S ORGANIZ ATION 09/18/2021 [facility] DATE CREATED AUTHOR AUTHOR'S ORGANIZ ATION 07/04/2023 [facility] DATE CREATED AUTHOR AUTHOR'S ORGANIZ ATION 01/30/2024 [facility] DATE CREATED AUTHOR AUTHOR'S ORGANIZ ATION 02/02/2024 [facility] DATE CREATED AUTHOR AUTHOR'S ORGANIZ ATION 02/19/2024 [facility] DATE CREATED AUTHOR AUTHOR'S ORGANIZ ATION 05/04/2024 [facility] DATE CREATED AUTHOR AUTHOR'S ORGANIZ ATION 05/11/2024 [facility] DATE CREATED AUTHOR AUTHOR'S ORGANIZ ATION 07/01/2024 [facility] DATE CREATED AUTHOR AUTHOR'S ORGANIZ ATION 07/12/2024 [facility] DATE CREATED AUTHOR AUTHOR'S ORGANIZ ATION 03/03/2025 [facility] DATE CREATED AUTHOR AUTHOR'S ORGANJANNET ATION 07/30/2025 [facility] Source Comments (unrecognize d section and content) In the event this informatio n is protected by the Federal Confidentiality of Alcohol and Drug Abuse Patient Records regulations: The Federal rules restrict any use of the information to criminally investigate or prosecute any alcohol or drug abuse patient.[facility] the event this information is protected by the Federal Confidentiality of Alcohol and Drug Abuse Patient Records regulations: The Federal rules restrict any use of the information to criminally investigate or prosecute any alcohol or drug abuse patient.[facility] SystemIn the event this information is protected by the Federal Confidentiality of Alcohol and Drug Abuse Patient Records regulations: The Federal rules restrict any use of the information to criminally investigate or prosecute any alcohol or drug abuse patient.[facility] SystemIn the event this information is protected by the Federal Confidentiality of Alcohol and Drug Abuse Patient Records regulations: The Federal rules restrict any use of the information to criminally investigate or prosecute any alcohol or drug abuse patient.[facility] SystemIn the event this information is protected by the Federal Confidentiality of Alcohol and Drug Abuse Patient Records regulations: The Federal rules restrict any use of the information to criminally investigate or prosecute any alcohol or drug abuse patient.[facility] SystemIn the event this information is protected by the Federal Confidentiality of Alcohol and Drug Abuse Patient Records regulations: The Federal rules restrict any use of the information to criminally investigate or prosecute any alcohol or drug abuse patient.[facility] SystemIn the event this information is protected by the Federal Confidentiality of Alcohol and Drug Abuse Patient Records regulations: The Federal rules restrict any use of the information to criminally investigate or prosecute any alcohol or drug abuse patient.[facility] SystemIn the event this information is protected by the Federal Confidentiality of Alcohol and Drug Abuse Patient Records regulations: The Federal rules restrict any use of the information to criminally investigate or prosecute any alcohol or drug abuse patient.[facility] SystemIn the event this information is protected by the Federal Confidentiality of Alcohol and Drug Abuse Patient Records regulations: The Federal rules restrict any use of the information to criminally investigate or prosecute any alcohol or drug abuse patient.[facility] SystemIn the event this information is protected by the Federal Confidentiality of Alcohol and Drug Abuse Patient Records regulations: The Federal rules restrict any use of the information to criminally investigate or prosecute any alcohol or drug abuse patient.[facility] SystemIn the event this information is protected by the Federal Confidentiality of Alcohol and Drug Abuse Patient Records regulations: The Federal rules restrict any use of the information to criminally investigate or prosecute any alcohol or drug abuse patient.[facility] SystemIn the event this information is protected by the Federal Confidentiality of Alcohol and Drug Abuse Patient Records regulations: The Federal rules restrict any use of the information to criminally investigate or prosecute any alcohol or drug abuse patient.[facility] SystemIn the event this information is protected by the Federal Confidentiality of Alcohol and Drug Abuse Patient Records regulations: The Federal rules restrict any use of the information to criminally investigate or prosecute any alcohol or drug abuse patient.[facility] SystemIn the event this information is protected by the Federal Confidentiality of Alcohol and Drug Abuse Patient Records regulations: The Federal rules restrict any use of the information to criminally investigate or prosecute any alcohol or drug abuse patient.[facility] SystemIn the event this information is protected by the Federal Confidentiality of Alcohol and Drug Abuse Patient Records regulations: The Federal rules restrict any use of the information to criminally investigate or prosecute any alcohol or drug abuse patient.[facility] SystemIn the event this information is protected by the Federal Confidentiality of Alcohol and Drug Abuse Patient Records regulations: The Federal rules restrict any use of the information to criminally investigate or prosecute any alcohol or drug abuse patient.[facility] SystemIn the event this information is protected by the Federal Confidentiality of Alcohol and Drug Abuse Patient Records regulations: The Federal rules restrict any use of the information to criminally investigate or prosecute any alcohol or drug abuse patient.[facility] SystemIn the event this information is protected by the Federal Confidentiality of Alcohol and Drug Abuse Patient Records regulations: The Federal rules restrict any use of the information to criminally investigate or prosecute any alcohol or drug abuse patient.[facility] SystemIn the event this information is protected by the Federal Confidentiality of Alcohol and Drug Abuse Patient Records regulations: The Federal rules restrict any use of the information to criminally investigate or prosecute any alcohol or drug abuse patient.[facility] SystemIn the event this information is protected by the Federal Confidentiality of Alcohol and Drug Abuse Patient Records regulations: The Federal rules restrict any use of the information to criminally investigate or prosecute any alcohol or drug abuse patient.[facility] SystemIn the event this information is protected by the Federal Confidentiality of Alcohol and Drug Abuse Patient Records regulations: The Federal rules restrict any use of the information to criminally investigate or prosecute any alcohol or drug abuse patient.[facility] SystemIn the event this information is protected by the Federal Confidentiality of Alcohol and Drug Abuse Patient Records regulations: The Federal rules restrict any use of the information to criminally investigate or prosecute any alcohol or drug abuse patient.[facility] SystemIn the event this information is protected by the Federal Confidentiality of Alcohol and Drug Abuse Patient Records regulations: The Federal rules restrict any use of the information to criminally investigate or prosecute any alcohol or drug abuse patient.[facility] SystemIn the event this information is protected by the Federal Confidentiality of Alcohol and Drug Abuse Patient Records regulations: The Federal rules restrict any use of the information to criminally investigate or prosecute any alcohol or drug abuse patient.[facility] SystemIn the event this information is protected by the Federal Confidentiality of Alcohol and Drug Abuse Patient Records regulations: The Federal rules restrict any use of the information to criminally investigate or prosecute any alcohol or drug abuse patient.[facility] SystemIn the event this information is protected by the Federal Confidentiality of Alcohol and Drug Abuse Patient Records regulations: The Federal rules restrict any use of the information to criminally investigate or prosecute any alcohol or drug abuse patient.[facility] SystemIn the event this information is protected by the Federal Confidentiality of Alcohol and Drug Abuse Patient Records regulations: The Federal rules restrict any use of the information to criminally investigate or prosecute any alcohol or drug abuse patient.[facility] SystemIn the event this information is protected by the Federal Confidentiality of Alcohol and Drug Abuse Patient Records regulations: The Federal rules restrict any use of the information to criminally investigate or prosecute any alcohol or drug abuse patient.[facility] SystemIn the event this information is protected by the Federal Confidentiality of Alcohol and Drug Abuse Patient Records regulations: The Federal rules restrict any use of the information to criminally investigate or prosecute any alcohol or drug abuse patient.[facility] SystemIn the event this information is protected by the Federal Confidentiality of Alcohol and Drug Abuse Patient Records regulations: The Federal rules restrict any use of the information to criminally investigate or prosecute any alcohol or drug abuse patient.[facility] SystemIn the event this information is protected by the Federal Confidentiality of Alcohol and Drug Abuse Patient Records regulations: The Federal rules restrict any use of the information to criminally investigate or prosecute any alcohol or drug abuse patient.[facility] SystemIn the event this information is protected by the Federal Confidentiality of Alcohol and Drug Abuse Patient Records regulations: The Federal rules restrict any use of the information to criminally investigate or prosecute any alcohol or drug abuse patient.[facility] SystemIn the event this information is protected by the Federal Confidentiality of Alcohol and Drug Abuse Patient Records regulations: The Federal rules restrict any use of the information to criminally investigate or prosecute any alcohol or drug abuse patient.[facility] SystemIn the event this information is protected by the Federal Confidentiality of Alcohol and Drug Abuse Patient Records regulations: The Federal rules restrict any use of the information to criminally investigate or prosecute any alcohol or drug abuse patient.[facility] Reason for Visit (unrecogniz ed section and content) Reason Onset Date Comments Refill Request 11/19/2021 Reason Comments Refill Request Reason Comments Appointment Reason Comments Orders Reason Comments f/u Reason Comments Med Change Request Reason Comments Medication Request [facility] Reason Comments Orders OT/Care Home H C Reason Comments Received Outside Medical Records [facility] Reason Comments Patient Update Home care referral b eing rejected due to patient stating to company nurse that he did not need the home care services Reason Comments Results Orders Reason Comments Received Outside Medical Records [facility] Emergency Department Summary 08/03/2023 Reason Comments Received Outside Medical Records [facility] EKG 08/04/2023 Reason Onset Date Comments Refill Request 08/12/2023 Reason Comments Received Outside Medical Records [facility] H & P ER addendum Reason Comments Received Outside Medical Records [facility] ER summary 11/24/2023 Mental Health Reason Comments broken leg f/u Reason Comments Follow Up Phone Call Post Discharge F/U - attempt made. No answer. Reason Comments Received Outside Medical Records [facility] ED visit summary right lower leg injury Reason Comments Puncture Wound On top of right hand . Patient states he was " poked with a shower curtain elijah" Reason Comments Received Outside Medical Records [facility] ED summary mental health 01/23/2024 Reason Comments Hand Injury Pt punched a window a week ago and has an open hand injury on his L hand. Pt is a tx from [facility]. Pt received zofran, morphine, zosyn, and vancomycin. Pt has a hx of schizophrenia and has been combative in the past. Specialty Diagnoses / Procedures Referred By Karan t Referred To Contact Diagnoses Pyogenic arthritis of left hand, due to unspecified organism (HCC) Hand Injury Procedures / Phill Mc MD [address] [place] [address] [facility] [address] [place] [id number] Referral ID Status Reason Start Date Expiration Date Visits Re quested Visits Authorized [id number] 1 1 Reason Comments Received Outside Medical Records [facility] Inpatient Reason Comments Received Outside Medical Records [facility] ED Reason Comments New Patient Tib/fib fx with oste omyelitis Reason Comments 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 Reason Comments Post-op Right Below Knee Amp utation sx 3/7 Care Teams (unrecognized sec tion and content) Cooker Helper Relationship Specialty Start Date End Date King Matute MD [address] [place] [address], [place] [address] PCP - General Family Practice 10/13/10 Cooker Helper Relationship Specialty Start Date End Date King Matute MD [address] [place] [address], [place] [address] PCP - General Family Practice 10/13/10 Cooker Helper Relationship Specialty Start Date End Date King Matute MD [address] [place] [address], [place] [address] PCP - General Family Practice 10/13/10 Cooker Helper Relationship Specialty Start Date End Date King Matute MD [address] [place] [address], [place] [address] PCP - General Family Medicine 10/13/10 Cooker Helper Relationship Specialty Start Date End Date King Matute MD [address] [place] [address], [place] [address] PCP - General Family Medicine 10/13/10 Cooker Helper Relationship Specialty Start Date End Date King Matute MD [address] [place] [address], [place] [address] PCP - General Family Medicine 10/13/10 Cooker Helper Relationship Specialty Start Date End Date King Matute MD [address] [place] [address], [place] [address] PCP - General Family Medicine 10/13/10 Cooker Helper Relationship Specialty Start Date End Date King Matute MD [address] [place] [address], [place] [address] PCP - General Family Medicine 10/13/10 Cooker Helper Relationship Specialty Start Date End Date King Matute MD [address] [place] [address], [place] [address] PCP - General Family Medicine 10/13/10 Cooker Helper Relationship Specialty Start Date End Date King Matute MD [address] [place], [place] [id number] PCP - General Family Medicine 10/13/10 Team Status: Active Member Role Status Dates Dr. Crow Matute MD Family Provider Active Dr. Crow Matute MD Primary Care Provider Active Team Status: Inactive Member Role Status Dates Dr. Crow Matute MD Primary Care Provider Active Pb León MD Emergency Provider Active Cooker Helper Relationship Specialty Start Date End Date King Matute MD [address] [place], [place] [address] PCP - General Family Medicine 10/13/10 Cooker Helper Relationship Specialty Start Date End Date King Matute MD [address] [place] [address] PCP - General Family Medicine 10/13/10 Cooker Helper Relationship Specialty Start Date End Date King Matute MD [address] [place], [place] [id number] PCP - General Family Medicine 10/13/10 Cooker Helper Relationship Specialty Start Date End Date King Matute MD [address] [place] [address] PCP - General Family Medicine 10/13/10 Cooker Helper Relationship Specialty Start Date End Date King Matute MD [address] [place], [place] [id number] PCP - General Family Medicine 10/13/10 Cooker Helper Relationship Specialty Start Date End Date King Matute MD [address] [place], [place] [id number] PCP - General Family Medicine 10/13/10 Cooker Helper Relationship Specialty Start Date End Date King Matute MD [address] [place] [address] PCP - General Family Medicine 10/13/10 Team Status: Inactive Member Role Status Dates Dr. Crow Matute MD Primary Care Provider Active Pb León MD Attending Provider, Emergency Provid er Active Team Status: Inactive Member Role Status Dates Dr. Crow Matute MD Primary Care Provider Active Dr. Pawan Cardenas DO Emergency Provider Active Team Status: Inactive Member Role Status Dates Dr. Crow Matute MD Primary Care Provider Active Dr. Erinn Tao MD Emergency Provider Active Team Status: Inactive Member Role Status Dates Dr. Crow Matute MD Primary Care Provider Active Dr. Pawan Cardenas DO Attending Provider, Emergency P nelly Active Cooker Helper Relationship Specialty Start Date End Date King Matute MD [address] [place] [address] PCP - General Family Medicine 10/13/10 Team Status: Inactive Member Role Status Dates Dr. Crow Matute MD Primary Care Provider Active Dr. Erinn Tao MD Attending Provider, Emergency Provider Active Cooker Helper Relationship Specialty Start Date End Date King Matute MD [address] [place] [address] PCP - General Family Medicine 10/13/10 Team Status: Inactive Member Role Status Dates Dr. Crow Matute MD Primary Care Provider Active Dr. Louis Colon DO Emergency Provider Active Cooker Helper Relationship Specialty Start Date End Date King Matute MD [address] [place] [address] PCP - General Family Medicine 10/13/10 Cooker Helper Relationship Specialty Start Date End Date King Matute MD [address] [facility] [place] [place] [address] PCP - [facility] Family Medicine 10/13/10 Team Status: Inactive Member Role Status Dates Dr. Crow Matute MD Primary Care Provider Active Dr. Quoc Germain MD Emergency Provider Active Cooker Helper Relationship Specialty Start Date End Date King Matute MD [address] [place] [address] PCP - [facility] Medicine 10/13/10 Team Status: Inactive Member Role Status Dates Dr. Crow Matute MD Primary Care Provider Active Dr. Quoc Germain MD Attending Provider, Emergency Pro vider Active Team Status: Inactive Member Role Status Dates Dr. Crow Matute MD Primary Care Provider Active Dr. Ajith Mendez DO Emergency Provider Active Cooker Helper Relationship Specialty Start Date End Date King Matute MD [address] [place] [address] PCP - [facility] Medicine 10/13/10 Team Status: Active Member Role/Relationship Status Dates Dr. Bandar Brenner DO Primary Care Provider Active Team Status: Active Member Role/Relationship Status Dates Dr. Crow Matute MD Primary Care Provider Active Start: April 12, 2025 Dr. Bandar WRIGHT MD Attending Provider Active Start: April 12, 2025 Team Status: Active Member Role/Relationship Status Dates Dr. Crow Matute MD Primary Care Provider Active Start: April 28, 2025 Dr. Bandar WRIGHT MD Attending Provider Active Start: April 28, 2025 Team Status: Active Member Role/Relationship Status Dates Dr. Crow Matute MD Primary Care Provider Active Start: May 17, 2025 Dr. Bandar WRIGHT MD Attending Provider Active Start: May 17, 2025 Team Status: Active Member Role/Relationship Status Dates Dr. Crow Matute MD Primary Care Provider Active Start: June 07, 2025 Dr. Bandar WRIGHT MD Attending Provider Active Start: June 07, 2025 Team Status: Inactive Member Role/Relationship Status Dates Dr. Selvin Bauer MD Emergency Provider Active Start: June 13, 2025 End: June 13, 2025 Dr. Bandar Brenner DO Primary Care Provider Active Start: June 13, 2025 End: June 13, 2025 Goals (unrecognized section and content) Goals may be documented in a n alternate section No data available for this section No data available for this sectionGoals may be documented in an alternate sectionGoals may be documented in an alternate sectionGoals may be documented in an alternate sectionGoals may be documented in an alternate section No data available for this section No data available for this sectionGoals may be documented in an alternate section No data available for this sectionGoals may be documented in an alternate section No data available for this section No data available for this section No data available for this section No data available for this section No data available for this sectionGoals may be documented in an alternate section Ordered Prescriptions (unrec ognized section and content) Prescription Sig Dispensed Refills Start Date End Da te cephALEXin (KEFLEX) 500 MG capsule Take 1 capsule by mouth 4 times daily for 7 days 28 capsule 0 01/06/2024 01/13/2024 ibuprofen (ADVIL;MOTRIN) 600 MG tablet Take 1 tablet by mouth 3 times daily as needed for Pain 30 tablet 0 01/06/2024 Scheduled Active and Recently Administ ered Medications (unrecognized section and content) Medication Order 01/04/2024 01/05/2024 01/06/2024 ibuprofen (ADVIL;MOTRIN) tablet 600 mg (COMPLETED) 600 mg, Oral, ONCE, 1 dose, On Fri01/06/24 at 2215, Do not crush or chew. 221 (Given - Provid er: Christina Thurman) Scheduled Medication Order 02/29/2024 03/01/2024 03/02/2024 atorvastatin (Lipitor) tablet 20 mg 20 mg, Oral, Nightly, First dose on Fri02/25/24 at 2100, Substituted for simvastatin (Zocor). 2199 (Given - Provider: Hung Muñiz RN) 2022 (Given - Provider: Micha Guerra RN) bisacodyl (Dulcolax) suppository 10 mg (COMPLETED) 10 mg, Rectal, Once, On Fri03/02/24 at 0830, For 1 dose 0929 (Given - Provid er: Bernadette Yost RN) ceFAZolin in dextrose 4% (Ancef) IVPB 2,000 mg 2,000 mg, IntraVENous, Administer over 30 Minutes, Every 8 hours, First dose on Fri02/27/24 at 1500, premix bag, Suspected Indication (Select all that apply): Bone and Join Infection 0628 (New Bag - Provider: Hung Muñiz RN)0658 (Stopped - Provider: Hung Muñiz RN)1507 (New Bag - Provider: Zhanna Stout RN)1537 (Stopped - Provider: Zhanna Stout, RN)2200 (New Bag - Provider: Hung Muñiz RN)2230 (Stopped - Provider: Hung Muñiz RN) 0602 (New Bag - Provider: Hung Muñiz RN)0632 (Stopped - Provider: Hung Muñiz RN)1508 (New Bag - Provider: Noah Thakkar RN)1538 (Stopped - Provider: Noah Thakkar RN)2206 (New Bag - Provider: Micha Guerra RN)2236 (Stopped - Provider: Micha Guerra RN) 0633 (New Bag - Provider: Micha Guerra RN)0703 (Stopped - Provider: Micha Guerra RN) heparin flush injection 250 Units 250 Units, IntraCATHeter, Every 12 hours, First dose on Fri03/01/24 at 1400, Each lumen. Do NOT administer to lumens with continuous fluids currently infusing. Line Care. Use 10 mL or larger syringe. 1400 (Not Given - Provider: Noah Thakkar RN - Reason: IV Fluids Infusing) 0200 (Given - Provider: Micha Guerra RN) Insulin Lispro (Humalog) injection 0-6 Units(Linked Group 1) 0-6 Units, SubCUTAneous, 3 times daily with meals, First dose on Fri02/25/24 at 0800, Low Dose Correction Algorithm Glucose: Dose: LESS than 139 No Insulin 140-199 1 Unit 200-249 2 Units 250-299 3 Units 300-349 4 Units 350-400 5 Units Above 400 6 Units 0853 (Given - Provider: Zhanna Stout RN)1251 (Given - Provider: Zhanna Stout, RN)1639 (Given - Provider: Zhanna Stout RN) 0805 (Given - Provider: Noah Thakkar, RN)1200 (Not Given - Provider: Noah Thakkar, RN - Reason: Order parameters not met)2022 (Not Given - Provider: Micha Guerra RN - Reason: Patient/family refused) 0800 (Given - Provider: Bernadette Yost RN)1200 (Canceled Entry - Provider: Automatic Discharge Provider - Comment: Automatically canceled at discontinue of medication order) Insulin Lispro (Humalog) injection 0-6 Units(Linked Group 1) 0-6 Units, SubCUTAneous, Nightly, First dose on Fri02/25/24 at 2100, If continuous tube feedings/TPN/NPO, give correction dose based on result, no reduction in dose. If eating or bolus tube feeding: Low Dose Correction Algorithm Glucose: Dose: LESS than 139 No Insulin 140-199 1 Unit 200-249 2 Units 250-299 3 Units 300-349 4 Units 350-400 5 Units Above 400 6 Units 2100 (Not Given - Provider: Hung Muñiz RN - Reason: Order parameters not met) 2100 (Not Given - Provider: Micha Guerra RN - Reason: Patient/family refused) levothyroxine (Synthroid, Levoxyl) tablet 50 mcg 50 mcg, Oral, Daily before breakfast, First dose on Fri02/25/24 at 0710, Tube feeding (TF) interaction, obtain physician order to manage, recommend holding TF for 30 minutes before and after dose. 0628 (Given - Provider: Hung Muñiz RN) 06 (Given - Provider: Hung Muñiz RN) 06 (Given - Provider: Micha Guerra, RN) melatonin tablet 5 mg 5 mg, Oral, Nightly, First dose on Fri02/26/24 at 2100 2200 (Given - Provider: Hung Muñiz RN) 2022 (Given - Provider: iMcha Guerra, RN) polyethylene glycol (PEG) 3350 (Miralax) packet 17 g 17 g, Oral, Daily, First dose (after last modification) on Fri03/01/24 at 0900, 1st line for treatment of constipation - give scheduled if no bowel movement in past 24 hours. 0805 (Given - Provider: Noah Thakkar RN) 0834 (Given - Provider: Bernadette Yost, RN) sennosides (Senokot) tablet 8.6 mg 8.6 mg (1 tablet), Oral, 2 times daily, First dose on Fri03/02/24 at 0900 0928 (Given - Provid er: Bernadette Yost RN) sodium chloride 0.9% (NS) flush 10 mL 10 mL, IntraCATHeter, Every 12 hours, First dose on Fri03/01/24 at 1400, Administer to each lumen, regardless of whether or not fluids are infusing. Line Care. Use 10 mL or larger syringe. 1508 (Given - Provider: Noah Thakkar RN) 0200 (Given - Provider: Micha Guerra RN) PRN Medication Order 02/29/2024 03/01/2024 03/02/2024 acetaminophen (Tylenol) suppository 650 mg(Linked Group 2) 650 mg, Rectal, Every 6 hours PRN, mild pain (1-3), fever, For temp greater than 100.4 F (38 C), Starting on Fri02/25/24 at 0705, Administer if oral route cannot be used. Maximum dose of acetaminophen is 4000 mg from all sources in 24 hours. 1102 (See Alternative - Provider: Noah Thakkar RN) 0834 (See Alternative - Provider: Bernadette Yost RN) acetaminophen (Tylenol) tablet 650 mg(Linked Group 2) 650 mg, Oral, Every 6 hours PRN, mild pain (1-3), fever, For temp greater than 100.4 F (38 C), Starting on Fri02/25/24 at 0705, Maximum dose of acetaminophen is 4000 mg from all sources in 24 hours. 1102 (Given - Provider: Noah Thakkar RN) 0834 (Given - Provider: Bernadette Yost, RN) dextrose 5 % infusion 100 mL/hr, IntraVENous, PRN, Blood sugar less than 70mg/dL, Starting on Fri02/25/24 at 0705, Start infusion following administration of dextrose 50% or glucagon. dextrose 50 % solution 12.5 g 12.5 g, IntraVENous, PRN, low blood sugar, Blood glucose less than 70 mg/dL and patient NOT ALERT or NPO., Starting on Fri02/25/24 at 0705, If patient does not respond within 5 minutes, repeat dose x1. Start D5W at 100 mL/hour until ordering provider can be reached. Repeat blood glucose in 15 minutes. If blood glucose is less than 70 mg/dL, repeat treatment and recheck blood glucose in 15 minutes x2. If using Glucostabilizer, dose as instructed per system. glucagon (human recombinant) injection 1 mg 1 mg, IntraMUSCular, PRN, low blood sugar, Blood glucose less than 70 mg/dL and patient NOT ALERT or NPO and does not have IV access., Starting on Fri02/25/24 at 0705, After administration, attempt intravenous access and start D5W at 100 mL/hr. Repeat blood glucose in 15 minutes x2 and notify provider. glucose oral gel 15 g 15 g, Oral, As needed, low blood sugar, Starting on Fri02/25/24 at 0705, If blood glucose less than 50 mg/dL and patient ALERT and NOT NPO, give 2 tubes glucose gel. If blood glucose less than 70 mg/dL and patient ALERT and NOT NPO, give 1 tube glucose gel. Repeat blood glucose in 15 minutes. If blood glucose is less than 70 mg/dL, repeat treatment and recheck blood glucose in 15 minutes x2 and notify provider. heparin flush injection 250 Units 250 Units, IntraCATHeter, PRN, line care, after blood draws and after infusion, Starting on Fri03/01/24 at 1355, Do NOT administer to lumens with continuous fluids currently infusing. Line Care. Use 10 mL or larger syringe. ipratropium-albuterol (Duo-Neb) 0.5-2.5 mg/3 mL nebulizer solution 3 mL 3 mL, Nebulization, 3 times daily PRN, wheezing, shortness of breath, Starting on Fri02/29/24 at 0925 naloxone (Narcan) injection 0.4 mg 0.4 mg, IntraVENous, Every 5 min PRN, opioid reversal, respiratory depression, Starting on Fri02/25/24 at 0706, +++ For RR <10, pinpoint pupils, over sedation for opioid reversal - MUST notify vocational auto body instructor provider immediately after first dose, may give IM or SQ if no IV access +++ nicotine polacrilex (Nicorette) gum 2 mg 2 mg, Mouth/Throat, Every 3 hours PRN, smoking cessation, Starting on Fri02/25/24 at 0705 1035 (Given - Provider: Zhanna Stout RN) 1745 (Given - Provider: Noah Thakkar, RN) OLANZapine (ZyPREXA) 5 mg in sterile water 1 mL injection(Linked Group 3) 5 mg, IntraMUSCular, Every 6 hours PRN, agitation, Starting on Fri02/25/24 at 1453, Each 10 mg vial to be reconstituted with 2.1 mL sterile water for injection to give a concentration of approx 5 mg/mL. Use immediately. Discard unused portion. OLANZapine (ZyPREXA) tablet 5 mg(Linked Group 3) 5 mg, Oral, Every 6 hours PRN, agitation, Starting on Fri02/25/24 at 1453 ondansetron (Zofran) injection 4 mg(Linked Group 4) 4 mg, IntraVENous, Every 6 hours PRN, nausea, vomiting, Starting on Fri02/25/24 at 0705, 1st Line. Give IV if patient is unable to take orally. If inadequate response within 60 minutes, proceed to next-line agent or contact provider if no further options ordered. ondansetron ODT (Zofran-ODT) disintegrating tablet 4 mg(Linked Group 4) 4 mg, Oral, Every 8 hours PRN, nausea, vomiting, Starting on Fri02/25/24 at 0705, 1st Line. If inadequate response within 60 minutes, proceed to next-line agent or contact provider if no further options ordered. Patient should allow tablet to dissolve on tongue. Do not remove from blister pack until just before administering. oxyCODONE (Roxicodone) immediate release tablet 5 mg 5 mg, Oral, Every 6 hours PRN, moderate pain (4-6), severe pain (7-10), Starting on Fri02/25/24 at 0705 0730 (Given - Provider: Hung Muñiz RN)1642 (Given - Provider: Zhanna Stout RN) 0602 (Given - Provider: Hung Muñiz RN)1612 (Given - Provider: Noah Thakkar, AYDEN) 0517 (Given - Provider: Micha Guerra RN)1114 (Given - Provider: Bernadette Yost RN) sodium chloride 0.9% (NS) flush 10 mL 10 mL, IntraCATHeter, PRN, line care, before blood draws, before and after infusion or medication administration, Starting on Fri03/01/24 at 1355, Use 10 mL or larger syringe. traZODone (Desyrel) tablet 50 mg 50 mg, Oral, Nightly PRN, sleep, Starting on Fri02/25/24 at 0705 Linked Groups Order Group 1: Insulin Lispro (Humalog) injection 0-6 UnitsJump to med 0-6 Units, SubCUTAneous, 3 times daily with meals, First dose on Fri02/25/24 at 0800, Low Dose Correction Algorithm Glucose: Dose: LESS than 139 No Insulin 140- 199 1 Unit 200-249 2 Units 250-299 3 Units 300-349 4 Units 350-400 5 Units Above 400 6 Units And Insulin Lispro (Humalog) injection 0-6 UnitsJump to med 0-6 Units, SubCUTAneous, Nightly, First dose on Fri02/25/24 at 2100, If continuous tube feedings/TPN/NPO, give correction dose based on result, no reduction in dose. If eating or bolus tube feeding: Low Dose Correction Algorithm Glucose: Dose: LESS than 139 No Insulin 140-199 1 Unit 200-249 2 Units 250-299 3 Units 300-349 4 Units 350-400 5 Units Above 400 6 Units Group 2: acetaminophen (Tylenol) tablet 650 mgJump to med 650 mg, Oral, Every 6 hours PRN, mild pain (1-3), fever, For temp greater than 100.4 F (38 C), Starting on Fri02/25/24 at 0705, Maximum dose of acetaminophen is 4000 mg from all sources in 24 hours. Or acetaminophen (Tylenol) suppository 650 mgJump to med 650 mg, Rectal, Every 6 hours PRN, mild pain (1-3), fever, For temp greater than 100.4 F (38 C), Starting on Fri02/25/24 at 0705, Administer if oral route cannot be used. Maximum dose of acetaminophen is 4000 mg from all sources in 24 hours. Group 3: OLANZapine (ZyPREXA) 5 mg in sterile water 1 mL injectionJump to med 5 mg, IntraMUSCular, Every 6 hours PRN, agitation, Starting on Fri02/25/24 at 1453, Each 10 mg vial to be reconstituted with 2.1 mL sterile water for injection to give a concentration of approx 5 mg/mL. Use immediately. Discard unused portion. Or OLANZapine (ZyPREXA) tablet 5 mgJump to med 5 mg, Oral, Every 6 hours PRN, agitation, Starting on Fri02/25/24 at 1453 Group 4: ondansetron ODT (Zofran-ODT) disintegrating tablet 4 mgJump to med 4 mg, Oral, Every 8 hours PRN, nausea, vomiting, Starting on Fri02/25/24 at 0705, 1st Line. If inadequate response within 60 minutes, proceed to next-line agent or contact provider if no further options ordered. Patient should allow tablet to dissolve on tongue. Do not remove from blister pack until just before administering. Or ondansetron (Zofran) injection 4 mgJump to med 4 mg, IntraVENous, Every 6 hours PRN, nausea, vomiting, Starting on Fri02/25/24 at 0705, 1st Line. Give IV if patient is unable to take orally. If inadequate response within 60 minutes, proceed to next-line agent or contact provider if no further options ordered. Scheduled Medication Order 2024 12/05/2024 12/06/2024 acetaminophen (Tylenol) tablet 1,000 mg 1,000 mg, Oral, 3 times daily, First dose (after last modification) on 12/04/24 at 0900, Give in addition to any other pain medication ordered at same time for any pain indication. 0815 (Given - Provider: Gaby Thomas RN)1322 (Given - Provider: Gaby Thomas RN)2034 (Given - Provider: Bill Baker RN) 0927 (Given - Provider: Kartik Calderon RN)1400 (Not Given - Provider: Danyell Avalos RN - Reason: Patient/family refused)2035 (Given - Provider: Hilary Lee, AYDEN) 0811 (Given - Provider: Sherrie Crandall, AYDEN)1353 (Given - Provider: Sherrie Crandall, AYDEN) atorvastatin (Lipitor) tablet 20 mg 20 mg, Oral, Nightly, First dose on Serina 12/02/24 at 2100 2034 (Given - Provider: Bill Baker RN) 2035 (Given - Provider: Hilary Lee, AYDEN) divalproex (Depakote ER) 24 hr tablet 500 mg 500 mg, Oral, 2 times daily, First dose on Fri12/03/24 at 1830, Do not crush, chew, or split. 05 (Given - Provider: Bridgett Gaspar RN)2041 (Given - Provider: Bill Baker, RN) 927 (Given - Provider: Kartik Calderon, RN)2033 (Given - Provider: Hilary Lee, AYDEN) 08 (Given - Provider: Sherrie Crandall, AYDEN) enoxaparin (Lovenox) syringe 40 mg 40 mg, SubCUTAneous, Every 12 hours, First dose on 12/04/24 at 0800, Phase II/On Unit, Indication of Use: Prophylaxis-DVT/PE, Indications: Prophylaxis of Venous Thromboembolism 822 (Given - Provider: Gaby Thomas RN)2034 (Given - Provider: Bill Baker, AYDEN) 926 (Given - Provider: Kartik Calderon, AYDEN)2035 (Given - Provider: Hilary Lee, AYDEN) 08 (Given - Provider: Sherrie Crandall, AYDEN) insulin glargine (Lantus) injection 26 Units (CANCELED) 26 Units, SubCUTAneous, Every morning, First dose on Fri12/04/24 at 0900 08 (Given - Provider: Gaby Thomas RN) 09 (Given - Provider: Kartik Calderon RN) 08 (Given - Provider: Sherrie Crandall, AYDEN) insulin glargine (Lantus) injection 32 Units 32 Units, SubCUTAneous, Every morning, First dose (after last modification) on Fri12/07/24 at 0900 Insulin Lispro (Humalog) injection 0-12 Units 0-12 Units, SubCUTAneous, 3 times daily with meals, First dose on Fri12/04/24 at 0800, Moderate dose Sliding scale: <150 = 0 unit 151-200 = 2 units 201-250 = 4 units 251-300 = 6 units 301-350 = 8 units 351-400 = 10 units > 400 = 12 units and call endocrine 0815 (Given - Provider: Gaby Thomas RN)1323 (Given - Provider: Gaby Thomas RN)162 (Given - Provider: Gaby Thomas RN) 0927 (Given - Provider: Kartik Calderon RN)1159 (Given - Provider: Kartik Calderon RN)1610 (Given - Provider: Danyell Avalos RN) 0842 (Given - Provider: Sherrie Crandall, AYDEN)1200 (Given - Provider: Sherrie Crandall, AYDEN)1700 (Canceled Entry - Provider: Automatic Discharge Provider - Comment: Automatically canceled at discontinue of medication order) Insulin Lispro (Humalog) injection 10 Units (CANCELED) 10 Units, SubCUTAneous, 3 times daily with meals, First dose on 12/04/24 at 0800 0816 (Given - Provider: Gaby Thomas RN)1322 (Given - Provider: Gaby Thomas RN)1622 (Given - Provider: Gaby Thomas RN) 0919 (Given - Provider: Kartik Calderon RN - Comment: Per Family Worker Noah will give 12 units)1158 (Given - Provider: Kartik Calderon RN)1609 (Given - Provider: Danyell Avalos RN) 0842 (Given - Provider: Sherrie Crandall, AYDEN) levothyroxine (Synthroid, Levoxyl) tablet 50 mcg 50 mcg, Oral, Daily before breakfast, First dose on Fri12/03/24 at 0600, Tube feeding (TF) interaction, obtain physician order to manage, recommend holding TF for 30 minutes before and after dose. 0529 (Given - Provider: Bridgett Gaspar RN) 0601 (Given - Provider: Bill Baker RN) 0545 (Given - Provider: Hilary Lee, AYDEN) melatonin tablet 5 mg 5 mg, Oral, Nightly, First dose on [facility] 12/02/24 at 2100 203 (Given - Provider: Bill Baker, RN) 2034 (Given - Provider: Hilary Lee, AYDEN) methocarbamol (Robaxin) tablet 1,000 mg (CANCELED) 1,000 mg, Oral, Every 8 hours scheduled (3 times per day), First dose (after last modification) on 12/04/24 at 1400 1322 (Given - Provider: Gaby Thomas RN)204 (Given - Provider: Bill Baker RN) 0601 (Given - Provider: Bill Baker, AYDEN) methocarbamol (Robaxin) tablet 1,000 mg 1,000 mg, Oral, Every 8 hours scheduled (3 times per day), First dose on Fri12/05/24 at 0830 0928 (Given - Provider: Kartik Calderon, RN)1400 (Not Given - Provider: Danyell Avalos RN - Reason: Patient/family refused)2036 (Given - Provider: Hilary Lee RN) 0545 (Given - Provider: Hilary Lee, AYDEN)1353 (Given - Provider: Sherrie Crandall, AYDEN) OLANZapine (ZyPREXA) tablet 15 mg 15 mg, Oral, 2 times daily, First dose on Fri12/03/24 at 1830 0528 (Given - Provider: Bridgett Gaspar RN)2043 (Given - Provider: Bill Baker, AYDEN) 0928 (Given - Provider: Kartik Calderon, AYDEN)2159 (Given - Provider: Hilary Lee, AYDEN) 0812 (Given - Provider: Sherrie Crandall, AYDEN) Senna (Senokot) syrup 10 mL(Linked Group 1) 10 mL, Oral, Nightly, First dose on [facility] 12/02/24 at 2100, Give oral liquid if patient prefers or per feeding tube if present. 2034 (See Alternative - Provider: Bill Baker RN) 2099 (See Alternative - Provider: Hilary Lee, AYDEN) sennosides (Senokot) tablet 17.2 mg(Linked Group 1) 17.2 mg (2 tablet), Oral, Nightly, First dose on [facility] 12/02/24 at 2100 2034 (Given - Provider: Bill Baker, AYDEN) 2100 (Not Given - Provider: Hilary Lee, AYDEN - Reason: Patient/family refused) sodium chloride 0.9% (NS) flush 5-40 mL 5-40 mL, IntraVENous, Every 12 hours, First dose on [facility] 12/02/24 at 1430, For Line Patency: Peripheral IV = 5 mL; Midline or Central Line = 10 mL/lumen. If following IV push medication, administer flush at same rate as the IV push. Flush volume is determined by type of infusion therapy being given. For non-viscous solutions use: Peripheral IV = 5 mL Midline or Central Line = 10 mL/lumen For viscous solutions (i.e. blood components, parenteral nutrition, contrast media, or after obtaining blood sample) use: Peripheral IV = 10 mL Midline or Central Line = 20 mL/lumen 0230 (Not Given - Provider: Bridgett Gaspar RN - Reason: Other)1430 (Not Given - Provider: Gaby Thomas RN - Reason: Other) 0601 (Given - Provider: Bill Baker RN)1430 (Not Given - Provider: Danyell Avalos RN - Reason: IV Fluids Infusing) 0230 (Given - Provider: Hilary Lee RN)1430 (Canceled Entry - Provider: Automatic Discharge Provider - Comment: Automatically canceled at discontinue of medication order) Continuous Medication Order 2024 12/05/2024 12/06/2024 sodium chloride 0.9 % infusion 100 mL/hr, IntraVENous, Continuous, Starting on Fri12/03/24 at 0000 0037 (New Bag - Provider: Veronica Mansfield RN)0700 (Rate/Dose Verify - Provider: Gaby Thomas RN)0900 (Rate/Dose Verify - Provider: Gaby Thomas RN)1039 (New Bag - Provider: Gaby Thomas RN)1100 (Rate/Dose Verify - Provider: Gaby Thomas RN)1300 (Rate/Dose Verify - Provider: Gaby Thomas RN)1500 (Rate/Dose Verify - Provider: Gaby Thomas RN)1700 (Rate/Dose Verify - Provider: Gaby Thomas RN)2036 (New Bag - Provider: Bill Baker RN) 0722 (New Bag - Provider: Bill Baker RN)1611 (New Bag - Provider: Danyell Avalos RN)2039 (Rate/Dose Verify - Provider: Hilary Lee RN) 0028 (Rate/Dose Verify - Provider: Hilary Lee RN)0257 (Rate/Dose Verify - Provider: Hilary Lee, AYDEN)0545 (Rate/Dose Verify - Provider: Hilary Lee, AYDEN)0700 (Stopped - Provider: Sherrie Crandall RN) PRN Medication Order 2024 12/05/2024 12/06/2024 dextrose 5 % infusion 100 mL/hr, IntraVENous, PRN, Blood sugar less than 70mg/dL, Starting on [facility] 12/02/24 at 1520, Start infusion following administration of dextrose 50% or glucagon. dextrose 50 % solution 12.5 g 12.5 g, IntraVENous, PRN, low blood sugar, Blood glucose less than 70 mg/dL and patient NOT ALERT or NPO., Starting on [facility] 12/02/24 at 1520, If patient does not respond within 5 minutes, repeat dose x1. Start D5W at 100 mL/hour until ordering provider can be reached. Repeat blood glucose in 15 minutes. If blood glucose is less than 70 mg/dL, repeat treatment and recheck blood glucose in 15 minutes x2. If using Glucostabilizer, dose as instructed per system. glucagon (human recombinant) injection 1 mg 1 mg, IntraMUSCular, PRN, low blood sugar, Blood glucose less than 70 mg/dL and patient NOT ALERT or NPO and does not have IV access., Starting on [facility] 12/02/24 at 1520, After administration, attempt intravenous access and start D5W at 100 mL/hr. Repeat blood glucose in 15 minutes x2 and notify provider. glucose oral gel 15 g 15 g, Oral, As needed, low blood sugar, Starting on [facility] 12/02/24 at 1520, If blood glucose less than 50 mg/dL and patient ALERT and NOT NPO, give 2 tubes glucose gel. If blood glucose less than 70 mg/dL and patient ALERT and NOT NPO, give 1 tube glucose gel. Repeat blood glucose in 15 minutes. If blood glucose is less than 70 mg/dL, repeat treatment and recheck blood glucose in 15 minutes x2 and notify provider. HYDROmorphone (Dilaudid) injection 0.25 mg(Linked Group 2) 0.25 mg, IntraVENous, Every 4 hours PRN, moderate pain (4-6), Starting on [facility] 12/04/24 at 0654, If oral and IV narcotics ordered, use oral first and only use IV if oral is ineffective or cannot take oral. Do Not give oral and IV within 1 hour of each other unless specifically ordered. 1150 (See Alternative - Provider: Gaby Thomas RN)2034 (See Alternative - Provider: Bill P Melio, RN) 0440 (See Alternative - Provider: Bill Baker, RN)1159 (See Alternative - Provider: Kartik Calderon, RN) HYDROmorphone (Dilaudid) injection 0.5 mg(Linked Group 2) 0.5 mg, IntraVENous, Every 4 hours PRN, severe pain (7-10), Starting on 12/04/24 at 0654, If oral and IV narcotics ordered, use oral first and only use IV if oral is ineffective or cannot take oral. Do Not give oral and IV within 1 hour of each other unless specifically ordered. 1151 (Given - Provider: Gaby Thomas RN)2034 (Given - Provider: Bill Baker, AYDEN) 0440 (Given - Provider: Bill Baker RN)1159 (Given - Provider: Kartik Calderon, AYDEN) ibuprofen suspension 400 mg(Linked Group 3) 400 mg, Oral, Every 4 hours PRN, headaches, Starting on [facility] 12/02/24 at 1651, Give oral liquid if patient prefers or per feeding tube if present. Shake well before giving. If inadequate response within 60 minutes, proceed to next-line agent for same PRN reason or contact provider if no further options ordered. ibuprofen tablet 400 mg(Linked Group 3) 400 mg, Oral, Every 4 hours PRN, headaches, Starting on [facility] 12/02/24 at 1651, If inadequate response within 60 minutes, proceed to next-line agent for same PRN reason or contact provider if no further options ordered. ipratropium-albuterol (Duo-Neb) 0.5-2.5 mg/3 mL nebulizer solution 3 mL 3 mL, Nebulization, 3 times daily PRN, wheezing, shortness of breath, Starting on [facility] 12/02/24 at 1519 1626 (Given - Provider: Joyce Sweet) naloxone (Narcan) injection 0.4 mg 0.4 mg, IntraVENous, Every 5 min PRN, opioid reversal, respiratory depression, Starting on [facility] 12/02/24 at 1424, +++ For RR <10, pinpoint pupils, over sedation for opioid reversal - MUST notify vocational auto body instructor provider immediately after first dose, may give IM or SQ if no IV access +++ nicotine polacrilex (Nicorette) gum 2 mg 2 mg, Mouth/Throat, Every 1 hour PRN, smoking cessation, nicotine craving, urge to smoke, Starting on [facility] 12/02/24 at 1602, Instruct patient to chew into gum, then place between the cheek and gum to enhance absorption. To increase chances of quitting, recommended to chew and park at least 9 pieces per day in the first 6 weeks of cessation., Indications: Nicotine Dependence 1039 (Given - Provider: Gaby Thomas RN) 2030 (Given - Provider: Hilary Lee RN) ondansetron (Zofran) injection 4 mg(Linked Group 4) 4 mg, IntraVENous, Every 6 hours PRN, nausea, vomiting, Starting on [facility] 12/02/24 at 1413, 1st Line. Give IV if patient is unable to take orally. If inadequate response within 60 minutes, proceed to next-line agent or contact provider if no further options ordered. ondansetron ODT (Zofran-ODT) disintegrating tablet 4 mg(Linked Group 4) 4 mg, Oral, Every 8 hours PRN, nausea, vomiting, Starting on [facility] 12/02/24 at 1413, 1st Line. If inadequate response within 60 minutes, proceed to next-line agent or contact provider if no further options ordered. Patient should allow tablet to dissolve on tongue. Do not remove from blister pack until just before administering. oxyCODONE (Roxicodone) immediate release tablet 10 mg(Linked Group 5) 10 mg, Oral, Every 4 hours PRN, severe pain (7-10), Starting on [facility] 12/02/24 at 1421 0046 (Given - Provider: Bridgett Gaspar RN)0529 (Given - Provider: Bridgett Gaspar RN)0942 (Given - Provider: Gaby Thomas RN)1533 (See Alternative - Provider: Gaby Thomas RN) 2033 (Given - Provider: Hilary Lee RN) 0254 (Given - Provider: Hilary Lee RN)0810 (Given - Provider: Sherrie Crandall, AYDEN)1353 (Given - Provider: Sherrie Crandall, AYDEN) oxyCODONE (Roxicodone) immediate release tablet 5 mg(Linked Group 5) 5 mg, Oral, Every 4 hours PRN, moderate pain (4-6), Starting on [facility] 12/02/24 at 1421 0046 (See Alternative - Provider: Bridgett Gaspar, RN)0529 (See Alternative - Provider: Bridgett Gaspar RN)0942 (See Alternative - Provider: Gaby Thomas, RN)1533 (Given - Provider: Gaby Thomas, RN) 2034 (See Alternative - Provider: Hilary Lee, RN) 0254 (See Alternative - Provider: Hilary Lee, RN)0810 (See Alternative - Provider: Sherrie Crandall, RN)1353 (See Alternative - Provider: Sherrie Crandall, RN) polyethylene glycol (PEG) 3350 (Miralax) packet 17 g 17 g, Oral, Daily PRN, constipation, Starting on [facility] 12/02/24 at 1413, 1st line for treatment of constipation - give scheduled if no bowel movement in past 24 hours. sodium chloride 0.9 % infusion 5-250 mL/hr, IntraVENous, PRN, if patient receiving piggyback infusions and maintenance fluids are not ordered OR KVO fluids to protect IV site / prevent frequent line interruptions / long duration, Starting on [facility] 12/02/24 at 1413, For piggyback infusion, administer at same rate as piggyback for a total of 25 mL. Enter 25 mL into dose field and piggyback rate into rate field of order. If piggyback is infusing at a rate less than 100 mL/hr, enter 25 mL into dose field and 100 mL/hr into rate field of order. For KVO fluids, enter rate of 20 mL/hr or less into rate field of order. sodium chloride 0.9% (NS) flush 5-40 mL 5-40 mL, IntraVENous, PRN, line care, After every IV line use, Starting on [facility] 12/02/24 at 1413, For Line Patency: Peripheral IV = 5 mL; Midline or Central Line = 10 mL/lumen. If following IV push medication, administer flush at same rate as the IV push. Flush volume is determined by type of infusion therapy being given. For non-viscous solutions use: Peripheral IV = 5 mL Midline or Central Line = 10 mL/lumen For viscous solutions (i.e. blood components, parenteral nutrition, contrast media, or after obtaining blood sample) use: Peripheral IV = 10 mL Midline or Central Line = 20 mL/lumen traZODone (Desyrel) tablet 50 mg 50 mg, Oral, Nightly PRN, sleep, Starting on [facility] 12/02/24 at 1519 Linked Groups Order Group 1: sennosides (Senokot) tablet 17.2 mgJump to med 17.2 mg (2 tablet), Oral, Nightly, First dose on [facility] 12/02/24 at 2100 Or Senna (Senokot) syrup 10 mLJump to med 10 mL, Oral, Nightly, First dose on [facility] 12/02/24 at 2100, Give oral liquid if patient prefers or per feeding tube if present. Group 2: HYDROmorphone (Dilaudid) injection 0.25 mgJump to med 0.25 mg, IntraVENous, Every 4 hours PRN, moderate pain (4-6), Starting on 12/04/24 at 0654, If oral and IV narcotics ordered, use oral first and only use IV if oral is ineffective or cannot take oral. Do Not give oral and IV within 1 hour of each other unless specifically ordered. Or HYDROmorphone (Dilaudid) injection 0.5 mgJump to med 0.5 mg, IntraVENous, Every 4 hours PRN, severe pain (7-10), Starting on 12/04/24 at 0654, If oral and IV narcotics ordered, use oral first and only use IV if oral is ineffective or cannot take oral. Do Not give oral and IV within 1 hour of each other unless specifically ordered. Group 3: ibuprofen tablet 400 mgJump to med 400 mg, Oral, Every 4 hours PRN, headaches, Starting on [facility] 12/02/24 at 1651, If inadequate response within 60 minutes, proceed to next-line agent for same PRN reason or contact provider if no further options ordered. Or ibuprofen suspension 400 mgJump to med 400 mg, Oral, Every 4 hours PRN, headaches, Starting on [facility] 12/02/24 at 1651, Give oral liquid if patient prefers or per feeding tube if present. Shake well before giving. If inadequate response within 60 minutes, proceed to next-line agent for same PRN reason or contact provider if no further options ordered. Group 4: ondansetron ODT (Zofran-ODT) disintegrating tablet 4 mgJump to med 4 mg, Oral, Every 8 hours PRN, nausea, vomiting, Starting on [facility] 12/02/24 at 1413, 1st Line. If inadequate response within 60 minutes, proceed to next-line agent or contact provider if no further options ordered. Patient should allow tablet to dissolve on tongue. Do not remove from blister pack until just before administering. Or ondansetron (Zofran) injection 4 mgJump to med 4 mg, IntraVENous, Every 6 hours PRN, nausea, vomiting, Starting on [facility] 3 at 1413, 1st Line. Give IV if patient is unable to take orally. If inadequate response within 60 minutes, proceed to next-line agent or contact provider if no further options ordered. Group 5: oxyCODONE (Roxicodone) immediate release tablet 5 mgJump to med 5 mg, Oral, Every 4 hours PRN, moderate pain (4-6), Starting on [facility] 3 at 1421 Or oxyCODONE (Roxicodone) immediate release tablet 10 mgJump to med 10 mg, Oral, Every 4 hours PRN, severe pain (7-10), Starting on [facility] 3 at 1421 FOR RECORDS PERTAINING TO PATIENTS WHO ARE OR HAVE BEEN ENROLLED IN A CHEMICAL DEPENDENCY/SUBSTANCEABUSE PROGRAM, SOME INFORMATION MAY BE OMITTED. This clinical summary was aggregated from multiple sources. Caution should be exercised in using it in the provision of clinical care. This summary normalizes information from multiple sources, and as a consequence, information in this document may materially change the coding, format and clinical context of patient data. In addition, data may be omitted in some cases. CLINICAL DECISIONS SHOULD BE BASED ON THE PRIMARY CLINICAL RECORDS. [facility]. provides no warranty or guarantee of the accuracy or completeness of information in this document.
[2025-08-09 08:56] LABS: Valproic Acid (Depakene) Level 50 ug/mL (50-100)
== END ==
LOC: OLS.SW 05:00
PROVIDERS: Visit Provider Family Medicine
DX: F31.9 Bipolar disorder, unspecified (principal)
CPT/HCPCS: 36415; 80164